=== PATIENT | male | born 1960 | race Caucasian/White ===

== ENCOUNTER 2018-06-20 19:24 | Inpatient (IN) | payer OTHER ==
[2018-06-20] MEDS ORDERED: SODIUM CHLORIDE 0.9% 500 ML 500 ML IV SCH (20:45)
[2018-06-20] MEDS: LIDOCAINE 1% INJ 10MG/ML (20 ML MDV) SQ ONE ×2 (20:54→23:39)
[2018-06-20] MEDS ORDERED: cloNIDine HCL 0.1 MG TAB PO STA (21:20)
[2018-06-20 21:24] LABS: ALT 94 U/L (21-72); AST 68 U/L (17-59); Albumin 4.3 g/dL (3.5-5.0); Alkaline Phosphatase 80 U/L (38-126); Anion Gap 10 mmol/L; Basophils # (A) 0.1 k/uL (0-0.2); Basophils % (A) 1 %; Blood Urea Nitrogen 12 mg/dL (9-20); Calcium 9.8 mg/dL (8.4-10.2); Carbon Dioxide 27 mmol/L (22-30); Chloride 95 mmol/L (98-107); Eosinophils # (A) 0.3 k/uL (0-0.7); Eosinophils % (A) 4 %; HCT 46.5 % (39.0-53.0); HGB 15.3 gm/dL (13.0-17.5); Lymphocytes # (A) 2.6 k/uL (1.0-4.8); Lymphocytes % (A) 38 %; MCH 31.7 pg (25.0-35.0); MCHC 32.8 g/dL (31.0-37.0); MCV 96.7 fL (80.0-100.0); Mean Platelet Volume 8.4; Monocytes # (A) 0.5 k/uL (0-1.0); Monocytes % (A) 7 %; Neutrophils # (A) 3.3 k/uL (1.3-7.7); Neutrophils % (A) 48 %; Platelet Count 166 k/uL (150-450); Potassium 4.5 mmol/L (3.5-5.1); RBC 4.81 m/uL (4.30-5.90); RDW 12.4 % (11.5-15.5); Sodium 132 mmol/L (137-145); Total Bilirubin 0.5 mg/dL (0.2-1.3); Total Protein 7.5 g/dL (6.3-8.2); WBC 6.8 k/uL (3.8-10.6)
[2018-06-20 21:34] LABS: Glucose 513 mg/dL (74-99)
[2018-06-20] MEDS ORDERED: MORPHINE SULFATE 4 MG/ML SYRINGE IVP STA (21:35)
[2018-06-20 22:07] LABS: Glucose,Whole Blood 384 mg/dL (75-99)
[2018-06-20] MEDS ORDERED: ATENOLOL 50 MG TAB PO STA (22:10)
[2018-06-20] MEDS ORDERED: INSULIN REGULAR 100 UNIT/ML VIAL SQ ONE (22:10)
[2018-06-20] MEDS ORDERED: SODIUM CHLORIDE 0.9% 1,000 ML IV STA (22:10)
[2018-06-20 22:16] LABS: Appearance,Urine Clear (Clear); Bilirubin,Urine Negative (Negative); Blood,Urine Negative (Negative); Color,Urine Light Yellow; Glucose,Urine (UA) 4+ (Negative); Ketones,Urine Negative (Negative); Leukocyte Esterase,Urine Negative (Negative); Nitrite,Urine Negative (Negative); PH, Urine 6.5 (5.0-8.0); Protein,Urine Trace (Negative); Urobilinogen,Urine <2.0 mg/dL (<2.0)
--- NOTE | 2018-06-20 22:25 | XR ---
EXAMINATION TYPE: XR ankle complete RT DATE OF EXAM: 06/20/2018 COMPARISON: NONE HISTORY: Pain and redness TECHNIQUE: 3 views FINDINGS: I see no fracture nor dislocation. There is mild soft tissue swelling over the lateral mall eolus. Ankle mortise is anatomic. There are small plantar calcaneal spur. IMPRESSION: Mild soft tissue swelling. No fracture.
[2018-06-20] MEDS ORDERED: ONDANSETRON 4 MG/2 ML VIAL IVP PRN (22:52)
[2018-06-20] MEDS ORDERED: NALOXONE 0.4 MG/ML 1 ML VIAL IV PRN (22:52)
[2018-06-20] MEDS ORDERED: ACETAMINOPHEN TAB 325 MG TAB PO PRN (22:52)
[2018-06-20] MEDS ORDERED: VANCOMYCIN IV PER PHARMACY 1 EACH MISC MISCELLANE PRN (22:54)
--- NOTE | 2018-06-20 23:07 | ED ---
General Adult HPI - General Source: patient, RN notes reviewed Mode of arrival: ambulatory Limitations: no limitations <Desean Meyer - Last Filed: 06/21/18 03:51> <Figueroa Varela - Last Filed: 06/22/18 10:04> - General Chief complaint: Skin/Abscess/Foreign Body Stated complaint: Abscess Time Seen by Provider: 06/20/18 19:40 - History of Present Illness Initial comments: 58-year-old male with a past medical history of CAD, hyperlipidemia, hypertension, IDDM presents to the emergency department for a chief complaint of "bite to right foot." Patient states he woke up this morning and noticed he had a bump on the back of his right ankle. He states it has become increasingly erythematous. He states his ankle has been swollen as well. Patient admits it is quite painful especially to touch. Patient admits to having insulin-dependent diabetes. Patient states it is uncontrolled. He states his pump broke a few weeks ago and he has not been controlling his diabetes well. Patient also admits to neuropathy in the feet. Patient denies fevers or chills at home. Patient has no other complaints at this time including shortness of breath, chest pain, abdominal pain, nausea or vomiting, headache, or visual changes. (Desean Meyer) - Related Data Home Medications Medication Instructions Recorded Confirmed Albuterol Inhaler [Ventolin Hfa 2 puff INHALATION RT-Q6H PRN 02/13/16 06/20/18 Inhaler] Atenolol 100 mg PO BID 02/13/16 06/20/18 Clopidogrel Bisulfate [Clopidogrel] 75 mg PO DAILY 02/13/16 06/20/18 Insulin Aspart [NovoLOG See Protocol SQ AC-TID 02/13/16 06/20/18 (formulary)] Aspirin [Adult Low Dose Aspirin EC] 81 mg PO DAILY 02/16/16 06/20/18 Azithromycin [Zithromax Z-pack] See Taper PO DIRECTED 06/20/18 06/20/18 Cyproheptadine [Cyproheptadine HCl] 4 mg PO TID 06/20/18 06/20/18 Insulin Glargine,Hum.rec.anlog 30 unit SQ HS 06/20/18 06/20/18 [Basaglar Twanikpen U-100] Lisinopril [Zestril] 20 mg PO DAILY 06/20/18 06/20/18 Nitroglycerin 0.3mg Sl Tab 0.3 mg SL Q5M PRN 06/20/18 06/20/18 Pravastatin Sodium [Pravachol] 40 mg PO HS 06/20/18 06/20/18 amLODIPine [Norvasc] 5 mg PO DAILY 06/20/18 06/20/18 Allergies Allergy/AdvReac Type Severity Reaction Status Date / Time Penicillins Allergy Unknown Verified 06/20/18 23:31 Childhood Review of Systems ROS Other: All systems not noted in ROS Statement are negative. <Desean Meyer - Last Filed: 06/21/18 03:51> ROS Other: All systems not noted in ROS Statement are negative. <Figueroa Varela - Last Filed: 06/22/18 10:04> ROS Statement: Those systems with pertinent positive or pertinent negative responses have been documented in the HPI. Past Medical History Past Medical History: Coronary Artery Disease (CAD), Diabetes Mellitus, Hyperlipidemia, Hypertension Additional Past Medical History / Comment(s): chronic back pain History of Any Multi-Drug Resistant Organisms: None Reported Past Surgical History: Cholecystectomy, Heart Catheterization With Stent Past Psychological History: Anxiety, Bipolar, Depression Smoking Status: Current every day smoker Past Alcohol Use History: None Reported Past Drug Use History: Heroin, Marijuana <Desean Meyer P - Last Filed: 06/21/18 03:51> - Past Family History Mother Family Medical History: Cancer Additional Family Medical History / Comment(s): breast Father Family Medical History: Coronary Artery Disease (CAD) <Figueroa Varela - Last Filed: 06/22/18 10:04> General Exam Limitations: no limitations General appearance: alert, in no apparent distress Head exam: Present: atraumatic, normocephalic, normal inspection Eye exam: Present: normal appearance, PERRL, EOMI. Absent: scleral icterus, conjunctival injection, periorbital swelling ENT exam: Present: normal exam, mucous membranes moist Neck exam: Present: normal inspection, full ROM. Absent: tenderness, meningismus, lymphadenopathy Respiratory exam: Present: normal lung sounds bilaterally. Absent: respiratory distress, wheezes, rales, rhonchi, stridor Cardiovascular Exam: Present: regular rate, normal rhythm, normal heart sounds. Absent: systolic murmur, diastolic murmur, rubs, gallop, clicks Extremities exam: Present: full ROM (Full range of motion of the right lower extremity including right ankle and digits), tenderness (Tenderness noted over area of erythema.), normal capillary refill (Capillary refill less than 2 seconds and DP pulse 2+.), joint swelling (Mild nonpitting edema noted in the right ankle. Mild edema seems to be extending superiorly into the distal aspect of the right lower leg as well.), other (Patient has a 5 cm x 5 cm area of warmth and erythema noted on the right lateral posterior ankle. There is a small 1 cm x 1 cm area of fluctuance as well. ). Absent: calf tenderness (No calf tenderness, negative Homans sign.) <Desean Meyer - Last Filed: 06/21/18 03:51> Vital Signs 06/20/18 06/20/18 06/20/18 19:28 21:11 22:24 Temperature 98.2 F Pulse Rate 104 H 89 77 Respiratory 18 19 18 Rate Blood Pressure 214/100 170/106 168/95 O2 Sat by Pulse 99 97 97 Oximetry 06/20/18 23:24 Temperature Pulse Rate 74 Respiratory 18 Rate Blood Pressure 162/99 O2 Sat by Pulse 97 Oximetry Medical Decision Making - Lab Data Result diagrams: 06/20/18 20:50 06/20/18 20:50 <Desean Meyer - Last Filed: 06/21/18 03:51> - Lab Data Result diagrams: 06/20/18 20:50 06/20/18 20:50 <Figueroa Varela - Last Filed: 06/22/18 10:04> - Medical Decision Making 58-year-old male presents for chief complaint of erythema noted to the right posterior ankle. This has been ongoing for one day. On exam there is about 5 cm x 5 cm area of erythema noted with small area of fluctuance about 1 cm x 1 cm. X-ray of the ankle shows no acute process including free air. Mild edema nonpitting noted in the right ankle. Minor edema seems to be extending superiorly into the distal right lower leg. Neurovascular intact in the right lower extremity. Patient is a type I diabetic currently uncontrolled. He does have neuropathy as well. Glucose initially 513. Patient given fluids and insulin. CBC and CMP are otherwise unremarkable. Patient does not meet sepsis criteria. Acetone is negative. Urine does show 4+ glucose, no ketones. Given patient's comorbidities as well as infection he was started on broad-spectrum antibiotics including Levaquin, Flagyl, and vancomycin. Dr. Varela also visualized the ankle. At this time it is recommended patient be admitted for further management with ID consult. (Desean Meyer) I saw this patient in conjunction with the physician special education educational assistant. I performed independent history and physical exam. Agree with case management. (Figueroa Varela) - Lab Data Lab Results 06/20/18 06/20/18 06/20/18 Range/Units 20:50 20:50 20:50 WBC 6.8 (3.8-10.6) k/uL RBC 4.81 (4.30-5.90) m/uL Hgb 15.3 (13.0-17.5) gm/dL Hct 46.5 (39.0-53.0) % MCV 96.7 (80.0-100.0) fL MCH 31.7 (25.0-35.0) pg MCHC 32.8 (31.0-37.0) g/dL RDW 12.4 (11.5-15.5) % Plt Count 166 (150-450) k/uL Neutrophils % 48 % Lymphocytes % 38 % Monocytes % 7 % Eosinophils % 4 % Basophils % 1 % Neutrophils # 3.3 (1.3-7.7) k/uL Lymphocytes # 2.6 (1.0-4.8) k/uL Monocytes # 0.5 (0-1.0) k/uL Eosinophils # 0.3 (0-0.7) k/uL Basophils # 0.1 (0-0.2) k/uL Sodium 132 L (137-145) mmol/L Potassium 4.5 (3.5-5.1) mmol/L Chloride 95 L (98-107) mmol/L Carbon Dioxide 27 (22-30) mmol/L Anion Gap 10 mmol/L BUN 12 (9-20) mg/dL Creatinine 0.68 (0.66-1.25) mg/dL Est GFR (CKD-EPI)AfAm >90 (>60 ml/min/1.73 sqM) Est GFR (CKD-EPI)NonAf >90 (>60 ml/min/1.73 sqM) Glucose 513 H* (74-99) mg/dL POC Glucose (mg/dL) (75-99) mg/dL POC Glu Strategic Planning Director ID Plasma Lactic Acid Adelso 1.7 (0.7-2.0) mmol/L Calcium 9.8 (8.4-10.2) mg/dL Total Bilirubin 0.5 (0.2-1.3) mg/dL AST 68 H (17-59) U/L ALT 94 H (21-72) U/L Alkaline Phosphatase 80 (38-126) U/L Total Protein 7.5 (6.3-8.2) g/dL Albumin 4.3 (3.5-5.0) g/dL Urine Color Urine Appearance (Clear) Urine pH (5.0-8.0) Ur Specific [place] (1.001-1.035) Urine Protein (Negative) Urine Glucose (UA) (Negative) Urine Ketones (Negative) Urine Blood (Negative) Urine Nitrite (Negative) Urine Bilirubin (Negative) Urine Urobilinogen (<2.0) mg/dL Ur Leukocyte Esterase (Negative) Acetone, Qual (Negative) 06/20/18 06/20/18 06/20/18 Range/Units 20:50 22:00 22:04 WBC (3.8-10.6) k/uL RBC (4.30-5.90) m/uL Hgb (13.0-17.5) gm/dL Hct (39.0-53.0) % MCV (80.0-100.0) fL MCH (25.0-35.0) pg MCHC (31.0-37.0) g/dL RDW (11.5-15.5) % Plt Count (150-450) k/uL Neutrophils % % Lymphocytes % % Monocytes % % Eosinophils % % Basophils % % Neutrophils # (1.3-7.7) k/uL Lymphocytes # (1.0-4.8) k/uL Monocytes # (0-1.0) k/uL Eosinophils # (0-0.7) k/uL Basophils # (0-0.2) k/uL Sodium (137-145) mmol/L Potassium (3.5-5.1) mmol/L Chloride (98-107) mmol/L Carbon Dioxide (22-30) mmol/L Anion Gap mmol/L BUN (9-20) mg/dL Creatinine (0.66-1.25) mg/dL Est GFR (CKD-EPI)AfAm (>60 ml/min/1.73 sqM) Est GFR (CKD-EPI)NonAf (>60 ml/min/1.73 sqM) Glucose (74-99) mg/dL POC Glucose (mg/dL) 384 H (75-99) mg/dL POC Glu Strategic Planning Director ID Fidelina Haney Plasma Lactic Acid Adelso (0.7-2.0) mmol/L Calcium (8.4-10.2) mg/dL Total Bilirubin (0.2-1.3) mg/dL AST (17-59) U/L ALT (21-72) U/L Alkaline Phosphatase (38-126) U/L Total Protein (6.3-8.2) g/dL Albumin (3.5-5.0) g/dL Urine Color Light Yellow Urine Appearance Clear (Clear) Urine pH 6.5 (5.0-8.0) Ur Specific [place] 1.020 (1.001-1.035) Urine Protein Trace H (Negative) Urine Glucose (UA) 4+ H (Negative) Urine Ketones Negative (Negative) Urine Blood Negative (Negative) Urine Nitrite Negative (Negative) Urine Bilirubin Negative (Negative) Urine Urobilinogen <2.0 (<2.0) mg/dL Ur Leukocyte Esterase Negative (Negative) Acetone, Qual Negative (Negative) Disposition Time of Disposition: 23:00 <Desean Meyer - Last Filed: 06/21/18 03:51> <Figueroa Varela - Last Filed: 06/22/18 10:04> Clinical Impression: Abscess, Cellulitis Disposition: ADMITTED IP TO THIS HOSP Condition: Good
[2018-06-20] MEDS: SODIUM CHLORIDE 0.9% 1,000 ML IV SCH (23:21)
[2018-06-20] MEDS: LEVOFLOXACIN 750MG-D5W PMX 750 MG in DEXTROSE/WATER 1 150ML.BAG IVPB SCH (23:21)
[2018-06-20 23:43] LABS: Glucose,Whole Blood 325 mg/dL (75-99)
[2018-06-21 00:31] LABS: Glucose,Whole Blood 375 mg/dL (75-99)
[2018-06-21] MEDS: metroNIDAZOLE-NS PMX 500 MG in SALINE 1 100ML.BAG IVPB SCH ×4 (00:54→22:36)
[2018-06-21] MEDS: MORPHINE SULFATE 4 MG/ML SYRINGE IV PRN ×4 (01:20→20:22)
[2018-06-21] MEDS: VANCOMYCIN 1,250 MG in SODIUM CHLORIDE 0.9% 250 ML IVPB SCH ×2 (02:00→12:51)
[2018-06-21] MEDS: INSULIN ASPART 100 UNIT/ML 1 ML 10 ML VIAL SQ SCH ×5 (02:01→23:30)
[2018-06-21] MEDS ORDERED: INSULIN ASPART 100 UNIT/ML 1 ML 10 ML VIAL SQ SCH ×2 (07:30→12:30)
[2018-06-21 07:45] LABS: Glucose,Whole Blood 105 mg/dL (75-99)
[2018-06-21] MEDS: SODIUM CHLORIDE 0.9% 1,000 ML IV SCH ×2 (08:11→22:38)
[2018-06-21] MEDS ORDERED: NITROGLYCERIN SL TABS 0.4 MG TAB SUBLINGUAL PRN (11:56)
[2018-06-21 12:07] LABS: Glucose,Whole Blood 313 mg/dL (75-99)
--- NOTE | 2018-06-21 13:19 | HP ---
HISTORY AND PHYSICAL CHIEF COMPLAINT: Infected ulcer on the back of right heel. HISTORY OF PRESENT ILLNESS: This is the first admission for this 58-year-old white male. He had a blister on the back of the heel which became infected. He is diabetic. REVIEW OF SYSTEMS: He has had no fever, chills, problems with vision or hearing, seizures, lung disease, cough, hemoptysis, heart disease, murmurs, rheumatic fever, abdominal pain, nausea, vomiting, diarrhea, melena, hematochezia, hematochezia, hematuria, frequency, urgency, etc. Diabetes is not under good control. Past medical history, family history personal and social histories reveal that he is ALLERGIC TO ASPIRIN. He has had a cholecystectomy and a T and A. He does smoke. MEDICATIONS: Include albuterol, amlodipine, aspirin, atenolol, azithromycin, Plavix, insulin, lisinopril, Nitrostat, and pravastatin. Blood sugar was 513. PHYSICAL EXAM: Blood pressure 166/99 with a pulse 98, respirations of 30 and he is afebrile. GENERAL: He appeared to be somnolent, in no acute distress. Skin color is normal. Skin is warm, dry. Lymph nodes not enlarged. Head, ears, eyes, nose, mouth, and throat were normal. Neck veins not distended. Thyroid is not enlarged. Chest is clear. Cardiac exam is normal. Abdomen is soft, nontender. He has an infected ulcer on the back of the right heel of the Achilles tendon. Pulses are adequate. IMPRESSION: 1. Infected ulcer blister on the back to right heel. 2. Uncontrolled insulin-dependent diabetes mellitus. PLAN: 1. Bed rest. 2. IV fluids. 3. IV antibiotics. MMODL / IJN: [id number] /
--- NOTE | 2018-06-21 13:24 | PN ---
PROGRESS NOTE CHIEF COMPLAINT: Infected ulcer and cellulitis of the back of the right heel. HISTORY OF PRESENT ILLNESS: This gentleman is having quite a bit of discomfort. Antibiotics have been started. PHYSICAL EXAMINATION: The area looks just about the same. The foot is spared. Calf is soft. IMPRESSION: Infected ulcer or blister on the back of the right heel. PLAN: Continue with IV fluids and antibiotics and elevation. MMODL / IJN: [id number] /
[2018-06-21] MEDS ORDERED: LIDOCAINE 1% INJ 10MG/ML (20 ML MDV) SQ ONE (15:25)
--- NOTE | 2018-06-21 15:28 | P.GSCN ---
History of Present Illness Consult date: 06/21/18 History of present illness: 58-year-old male presented to the emergency department with complaints of swelling and pain around his right ankle. He states that he feels he was bit by a spider at that spot and over a few hours the area began to swell. He complains of pain at the site. Denies any drainage at the site. Denies any fevers, chills, chest pain or shortness of breath. He denies ever having an issue like this previously. His glucose levels have been elevated. He has been receiving IV antibiotics since his admission. Review of Systems All systems: negative Past Medical History Past Medical History: Coronary Artery Disease (CAD), Diabetes Mellitus, Hyperlipidemia, Hypertension Additional Past Medical History / Comment(s): chronic back pain History of Any Multi-Drug Resistant Organisms: None Reported Past Surgical History: Cholecystectomy, Heart Catheterization With Stent Date of Last Stent Placement:: 2011 Past Psychological History: Anxiety, Bipolar, Depression Smoking Status: Current every day smoker Past Alcohol Use History: None Reported Past Drug Use History: Heroin, Marijuana - Past Family History Mother Family Medical History: Cancer Additional Family Medical History / Comment(s): breast Father Family Medical History: Coronary Artery Disease (CAD) Medications and Allergies Home Medications Medication Instructions Recorded Confirmed Type Albuterol Inhaler [Ventolin Hfa 2 puff INHALATION RT-Q6H PRN 02/13/16 06/20/18 History Inhaler] Atenolol 100 mg PO BID 02/13/16 06/20/18 History Clopidogrel Bisulfate [Clopidogrel] 75 mg PO DAILY 02/13/16 06/20/18 History Insulin Aspart [NovoLOG See Protocol SQ AC-TID 02/13/16 06/20/18 History (formulary)] Aspirin [Adult Low Dose Aspirin EC] 81 mg PO DAILY 02/16/16 06/20/18 History Azithromycin [Zithromax Z-pack] See Taper PO DIRECTED 06/20/18 06/20/18 History Cyproheptadine [Cyproheptadine HCl] 4 mg PO TID 06/20/18 06/20/18 History Insulin Glargine,Hum.rec.anlog 30 unit SQ HS 06/20/18 06/20/18 History [Basaglar Kwikpen U-100] Lisinopril [Zestril] 20 mg PO DAILY 06/20/18 06/20/18 History Nitroglycerin 0.3mg Sl Tab 0.3 mg SL Q5M PRN 06/20/18 06/20/18 History Pravastatin Sodium [Pravachol] 40 mg PO HS 06/20/18 06/20/18 History amLODIPine [Norvasc] 5 mg PO DAILY 06/20/18 06/20/18 History Allergies Allergy/AdvReac Type Severity Reaction Status Date / Time Penicillins Allergy Unknown Verified 06/20/18 23:31 Childhood Surgical - Exam Osteopathic Statement: *. No significant issues noted on an osteopathic structural exam other than those noted in the History and Physical/Consult. Vital Signs Temp Pulse Resp BP Pulse Ox 98.2 F 104 H 18 214/100 99 06/20/18 19:28 06/20/18 19:28 06/20/18 19:28 06/20/18 19:28 06/20/18 19:28 - General no distress - Eyes normal ocular movement - ENT no hearing loss - Neck trachea midline - Respiratory normal respiratory effort - Abdomen Soft, nontender, nondistended, no rebound, no guarding - Integumentary Abscess noted on the right lower extremity just posterior to the lateral malleolus. Palpable fluctuance. Surrounding induration. Warm to touch. - Psychiatric oriented to time, oriented to person, oriented to place Results - Labs 06/20/18 20:50 06/20/18 20:50 Abnormal Lab Results - Last 24 Hours (Table) 06/20/18 06/20/18 06/20/18 Range/Units 20:50 22:00 22:04 Sodium 132 L (137-145) mmol/L Chloride 95 L (98-107) mmol/L Glucose 513 H* (74-99) mg/dL POC Glucose (mg/dL) 384 H (75-99) mg/dL AST 68 H (17-59) U/L ALT 94 H (21-72) U/L Urine Protein Trace H (Negative) Urine Glucose (UA) 4+ H (Negative) 06/20/18 06/21/18 06/21/18 Range/Units 23:32 00:30 07:11 Sodium (137-145) mmol/L Chloride (98-107) mmol/L Glucose (74-99) mg/dL POC Glucose (mg/dL) 325 H 375 H 105 H (75-99) mg/dL AST (17-59) U/L ALT (21-72) U/L Urine Protein (Negative) Urine Glucose (UA) (Negative) 06/21/18 Range/Units 12:04 Sodium (137-145) mmol/L Chloride (98-107) mmol/L Glucose (74-99) mg/dL POC Glucose (mg/dL) 313 H (75-99) mg/dL AST (17-59) U/L ALT (21-72) U/L Urine Protein (Negative) Urine Glucose (UA) (Negative) Diabetes panel 06/20/18 Range/Units 20:50 Sodium 132 L (137-145) mmol/L Potassium 4.5 (3.5-5.1) mmol/L Chloride 95 L (98-107) mmol/L Carbon Dioxide 27 (22-30) mmol/L BUN 12 (9-20) mg/dL Creatinine 0.68 (0.66-1.25) mg/dL Glucose 513 H* (74-99) mg/dL Calcium 9.8 (8.4-10.2) mg/dL AST 68 H (17-59) U/L ALT 94 H (21-72) U/L Alkaline Phosphatase 80 (38-126) U/L Total Protein 7.5 (6.3-8.2) g/dL Albumin 4.3 (3.5-5.0) g/dL Calcium panel 06/20/18 Range/Units 20:50 Calcium 9.8 (8.4-10.2) mg/dL Albumin 4.3 (3.5-5.0) g/dL Pituitary panel 06/20/18 Range/Units 20:50 Sodium 132 L (137-145) mmol/L Potassium 4.5 (3.5-5.1) mmol/L Chloride 95 L (98-107) mmol/L Carbon Dioxide 27 (22-30) mmol/L BUN 12 (9-20) mg/dL Creatinine 0.68 (0.66-1.25) mg/dL Glucose 513 H* (74-99) mg/dL Calcium 9.8 (8.4-10.2) mg/dL Adrenal panel 06/20/18 Range/Units 20:50 Sodium 132 L (137-145) mmol/L Potassium 4.5 (3.5-5.1) mmol/L Chloride 95 L (98-107) mmol/L Carbon Dioxide 27 (22-30) mmol/L BUN 12 (9-20) mg/dL Creatinine 0.68 (0.66-1.25) mg/dL Glucose 513 H* (74-99) mg/dL Calcium 9.8 (8.4-10.2) mg/dL Total Bilirubin 0.5 (0.2-1.3) mg/dL AST 68 H (17-59) U/L ALT 94 H (21-72) U/L Alkaline Phosphatase 80 (38-126) U/L Total Protein 7.5 (6.3-8.2) g/dL Albumin 4.3 (3.5-5.0) g/dL Assessment and Plan (1) Abscess Narrative/Plan: 58-year-old male with right lower extremity abscess - Plan for incision and drainage at bedside - Will obtain cultures Thank you for this consultation, I look forward in providing in the patient's care. Current Visit: Yes Status: Acute Code(s): L02.91 - CUTANEOUS ABSCESS, UNSPECIFIED SNOMED Code(s): 514964624
--- NOTE | 2018-06-21 15:49 | P.OP ---
Date of Procedure: 06/21/18 Preoperative Diagnosis: Right lower extremity abscess Postoperative Diagnosis: Right lower extremity abscess Procedure(s) Performed: Incision and drainage of right lower extremity abscess Anesthesia: local Surgeon: Roman Adam Pathology: other (Cultures of abscess) Condition: stable Disposition: floor Indications for Procedure: 58-year-old male with an abscess of the right lower extremity just posterior to the lateral malleolus. Area is fluctuant with some surrounding induration. He is on antibiotics through the IV. I did explain the procedure to the patient including risks, benefits and alternatives to the procedure. The patient did provide consent prior to the procedure. Operative Findings: 5 mL of purulent material drained Description of Procedure: The right lower Gale he was prepped and draped in regular sterile fashion. Local anesthetic was administered. A cruciate incision was made over the area of fluctuance. Immediate drainage of purulent material was noted. Approximately 5 mL was drained. Cultures of the abscess cavity were taken. Hemostat was used to break any surrounding loculations within the cavity. Irrigation was then used within the cavity. A small packing was placed. Sterile dressing was applied. The patient did tolerate the procedure well.
[2018-06-21 17:32] LABS: Glucose,Whole Blood 239 mg/dL (75-99)
[2018-06-21] MEDS: PRAVASTATIN SODIUM 40 MG TAB PO SCH (20:22)
[2018-06-21] MEDS: ATENOLOL 50 MG TAB PO SCH (20:22)
[2018-06-21 21:12] LABS: Glucose,Whole Blood 211 mg/dL (75-99)
[2018-06-21] MEDS: INSULIN DETEMIR 100 UNIT/ML 10 ML VIAL SQ SCH (22:34)
[2018-06-21] MEDS: LEVOFLOXACIN 750MG-D5W PMX 750 MG in DEXTROSE/WATER 1 150ML.BAG IVPB SCH (22:39)
[2018-06-22] MEDS: VANCOMYCIN 1,250 MG in SODIUM CHLORIDE 0.9% 250 ML IVPB SCH ×2 (01:45→12:48)
[2018-06-22] MEDS: MORPHINE SULFATE 4 MG/ML SYRINGE IV PRN ×4 (02:06→21:04)
--- NOTE | 2018-06-22 06:11 | CONS ---
CONSULTATION DATE OF SERVICE: 06/21/2018. REASON FOR CONSULTATION: Right ankle abscess, cellulitis. HISTORY OF PRESENT ILLNESS: The patient is a 58-year-old male presenting to the ER at [facility] with chief complaints of pain and swelling behind the ankle area. The patient noticed the bump this morning when he woke up that is yesterday morning when he presented to the hospital. The patient did not recall any history of any trauma however any boil there. The area is becoming more swollen and red and painful. Pain described to be throbbing 4 to 5 out of 10 and no radiation and is worse with any manipulation or twisting of his area. Currently with no drainage. He did have some chills but denies high-grade fever. The patient also had history of insulin-dependent diabetes mellitus. Apparently the patient probably and his sugar has been running high. With these symptoms, the patient has been evaluated by the ER physician. On arrival to the ER, the patient has been afebrile. White count normal at 6.8. Urine was negative. The patient did have x-rays of the ankle area that was negative for any fracture. He was started on Levaquin. Infectious Disease was consulted for further recommendation regarding antibiotic therapy because of his PENICILLIN allergy. REVIEW OF SYSTEMS: CONSTITUTIONAL: Positive for weakness and some chills. EYES: No complaint. ENT: No complaint. RESPIRATORY: No complaint. CARDIOVASCULAR: No complaint. GENITOURINARY: No complaint. GASTROINTESTINAL: No complaint. MUSCULOSKELETAL: As per HPI. INTEGUMENTARY: As per HPI. PSYCHOLOGICAL: No complaint. ENDOCRINE: No complaint. NEUROLOGICAL: No complaint. PAST MEDICAL HISTORY: Hypertension, hyperlipidemia, insulin-dependent diabetes mellitus, coronary artery disease, chronic back pain, anxiety, bipolar depression. PAST SURGICAL HISTORY: Cholecystectomy, PTCA with stent. SOCIAL HISTORY: Patient currently every day smoker. Did have history heroin and marijuana use. Denies any drinking. FAMILY HISTORY: No pertinent findings noticed. ALLERGIES: Allergies to PENICILLIN with history of rash MEDICATIONS: Medications include the patient is currently on Tylenol, Norvasc, aspirin, Tenormin, Plavix, NovoLog, Levemir, Levaquin, Flagyl, Nitrostat, Pravachol. PHYSICAL EXAMINATION: On examination, blood pressure 134/56, pulse of 60 temperature 97.8. He is 96% on room air. General description is a middle-aged male lying in bed in no distress. No tachypnea or accessory muscle of respiration use. HEENT examination shows no pallor or scleral icterus. Oral mucous membrane is dry. No pharyngeal erythema or thrush. NECK: Trachea central, no thyromegaly. LUNGS: Unlabored breathing, clear to auscultation anteriorly. HEART: S1, S2. Regular rate and rhythm. No added sounds. ABDOMEN: Soft, no tenderness, no guarding or rigidity. No organomegaly. EXTREMITIES: No edema of feet. Examination of the right posterior ankle area did have area of swelling, fluctuation, minimal redness but no drainage. NEUROLOGICAL: Patient is awake, alert, oriented x3. Mood and affect normal. LABS: Hemoglobin 15.3, white count 6.8. BUN of 12, creatinine 0.68. UA has been negative. Serum acetone was negative. The x-rays of right ankle negative for any fracture. DIAGNOSTIC IMPRESSION AND PLAN: 1. Patient with right posterior ankle area abscess with secondary cellulitis likely from a gram-positive skin rashmi however in this patient with underlying uncontrolled diabetes mellitus gram-negative infection not entirely excluded. 2. Patient known to have PENICILLIN ALLERGY that will limit the number of antibiotics that could be safely used. PLAN: 1. Recommend obtaining a general surgery evaluation for drainage of this abscess. The fluid should be sent for culture, both aerobic and anaerobic. 2. We will start the patient on vancomycin pharmacy to dose, trough of 15, while watching the kidney function and vanco trough closely. 3. We will follow up on clinical condition and culture to further adjust medication if needed. Thank you for this consultation. Will follow this patient along with you. MMODL / IJN: [id number] /
[2018-06-22 08:01] LABS: Glucose,Whole Blood 91 mg/dL (75-99)
--- NOTE | 2018-06-22 08:46 | P.PN ---
Subjective Progress Note Date: 06/22/18 Patient seen and examined at bedside. States pain has been improving at the site of incision and drainage. Denies fevers, chills, chest pain or shortness of breath. No additional complaints at this time. Objective - Vital Signs Vital signs: Vital Signs Temp 97.9 F 06/22/18 06:44 Pulse 54 L 06/22/18 06:44 Resp 16 06/22/18 06:44 BP 148/79 06/22/18 06:44 Pulse Ox 98 06/22/18 06:44 Intake & Output 06/21/18 06/22/18 06/22/18 18:59 06:59 18:59 Intake Total 240 240 Balance 240 240 Intake: Oral 240 240 Other: Voiding Method Toilet Urinal # Voids 3 3 - Constitutional General appearance: Present: cooperative, no acute distress - Respiratory Details: No difficulty with respiration - Gastrointestinal Gastrointestinal Comment(s): Soft, nontender, nondistended, no rebound, no guarding - Integumentary Integumentary Comment(s): Incision and drainage site with continued active drainage and bleeding, some surrounding cellulitis still noted - Labs CBC & Chem 7: 06/20/18 20:50 06/20/18 20:50 Labs: Abnormal Lab Results - Last 24 Hours (Table) 06/21/18 06/21/18 06/21/18 Range/Units 12:04 17:30 21:08 POC Glucose (mg/dL) 313 H 239 H 211 H (75-99) mg/dL Microbiology - Last 24 Hours (Table) 06/21/18 15:35 Gram Stain - Preliminary Ankle - Right Wound Culture - Preliminary 06/21/18 15:35 Anaerobic Culture - Preliminary Ankle - Right 06/20/18 20:50 Blood Culture - Preliminary Blood No Growth after 24 hours Assessment and Plan (1) Abscess Narrative/Plan: 58-year-old male with right lower extremity abscess, postoperative day #1 from bedside incision and drainage - Continue local wound care, I did discuss dressing changes with nursing - Continue pain control - Infectious disease recommendations for antibiotics appreciated Current Visit: Yes Status: Acute Code(s): L02.91 - CUTANEOUS ABSCESS, UNSPECIFIED SNOMED Code(s): 403501564
[2018-06-22] MEDS: amLODIPine 5 MG TAB PO SCH (08:49)
[2018-06-22] MEDS: metroNIDAZOLE-NS PMX 500 MG in SALINE 1 100ML.BAG IVPB SCH ×2 (08:49→15:03)
[2018-06-22] MEDS: ASPIRIN 81 MG PO SCH (08:49)
[2018-06-22] MEDS: ATENOLOL 50 MG TAB PO SCH ×2 (08:49→21:03)
[2018-06-22] MEDS: CLOPIDOGREL 75 MG TAB PO SCH (08:49)
[2018-06-22] MEDS: SODIUM CHLORIDE 0.9% 1,000 ML IV SCH ×2 (08:50→15:03)
[2018-06-22] MEDS: LISINOPRIL 20 MG TAB PO SCH (08:50)
[2018-06-22] MEDS: INSULIN ASPART 100 UNIT/ML 1 ML 10 ML VIAL SQ SCH ×4 (08:50→21:03)
[2018-06-22 11:22] LABS: Hemoglobin A1C 13.7 % (4.0-6.0)
[2018-06-22 11:51] LABS: Glucose,Whole Blood 128 mg/dL (75-99)
[2018-06-22 11:53] LABS: Anion Gap 4 mmol/L; Blood Urea Nitrogen 14 mg/dL (9-20); Calcium 8.4 mg/dL (8.4-10.2); Carbon Dioxide 29 mmol/L (22-30); Chloride 102 mmol/L (98-107); Glucose 145 mg/dL (74-99); Potassium 4.2 mmol/L (3.5-5.1); Sodium 135 mmol/L (137-145)
[2018-06-22] MEDS: HYDROcodone/APAP 5-325MG 1 EACH TAB PO PRN ×2 (12:00→17:39)
[2018-06-22 17:22] LABS: Glucose,Whole Blood 273 mg/dL (75-99)
--- NOTE | 2018-06-22 18:20 | PN ---
PROGRESS NOTE CHIEF COMPLAINT: Infected blister and cellulitis of the right lower leg. HISTORY OF PRESENT ILLNESS: This gentleman is doing well and the lesion was opened and drained yesterday. He is having some discomfort, but otherwise is doing well. He is afebrile. There has been no growth on blood culture. His blood sugars were elevated, but they are improving. PHYSICAL EXAM: Chest is clear. Cardiac exam is normal. Abdomen is soft, nontender. IMPRESSION: Cellulitis and ulcer of the right posterior heel and diabetic. PLAN: Continue with IV fluids, antibiotics and management of his diabetes. MMODL / IJN: [id number] /
[2018-06-22 20:37] LABS: Glucose,Whole Blood 222 mg/dL (75-99)
[2018-06-22] MEDS: PRAVASTATIN SODIUM 40 MG TAB PO SCH (21:03)
[2018-06-22] MEDS: INSULIN DETEMIR 100 UNIT/ML 10 ML VIAL SQ SCH (21:03)
[2018-06-22] MEDS: LEVOFLOXACIN 750MG-D5W PMX 750 MG in DEXTROSE/WATER 1 150ML.BAG IVPB SCH (23:06)
[2018-06-23] MEDS: metroNIDAZOLE-NS PMX 500 MG in SALINE 1 100ML.BAG IVPB SCH ×2 (00:21→08:06)
[2018-06-23] MEDS: HYDROcodone/APAP 5-325MG 1 EACH TAB PO PRN ×4 (00:21→20:37)
[2018-06-23] MEDS: SODIUM CHLORIDE 0.9% 1,000 ML IV SCH ×3 (01:08→20:38)
[2018-06-23] MEDS: VANCOMYCIN 1,250 MG in SODIUM CHLORIDE 0.9% 250 ML IVPB SCH ×2 (01:12→12:35)
[2018-06-23] MEDS: MORPHINE SULFATE 4 MG/ML SYRINGE IV PRN ×4 (03:33→22:34)
--- NOTE | 2018-06-23 07:05 | PN ---
PROGRESS NOTE DATE OF SERVICE: 06/22/2018. REASON FOR FOLLOW UP: Right blister heel/leg abscess and cellulitis. INTERVAL HISTORY: The patient is currently afebrile. He is breathing comfortably. Pain to the right posterior leg/ankle area slightly decreased in intensity. Denies having any chest pain. No shortness of breath. No cough. No abdominal pain. No diarrhea. PHYSICAL EXAMINATION: Blood pressure 145/81 with a pulse of 74, temperature 99. He is 97% on room air. General description is a middle-aged male lying in bed in no distress. Respiratory system: Unlabored breathing. Clear to auscultation anteriorly. Heart S1, S2. Regular rate and rhythm. Abdomen soft. No tenderness. Right currently dressed up. No obvious drainage on the dressing. LABS: BUN of 14 and 0.70. Cultures are currently pending. DIAGNOSTIC IMPRESSION AND PLAN: Patient with right heel abscess and cellulitis status post drainage of the abscess while waiting for the culture to finalize, keep the patient on vancomycin pharmacy to dose while watching his kidney function closely. Continue supportive care. MMODL / IJN: [id number] /
[2018-06-23 07:29] LABS: Glucose,Whole Blood 87 mg/dL (75-99)
[2018-06-23] MEDS: INSULIN ASPART 100 UNIT/ML 1 ML 10 ML VIAL SQ SCH ×4 (07:57→22:33)
[2018-06-23] MEDS: ATENOLOL 50 MG TAB PO SCH ×2 (08:06→20:38)
[2018-06-23] MEDS: amLODIPine 5 MG TAB PO SCH (08:06)
[2018-06-23] MEDS: CLOPIDOGREL 75 MG TAB PO SCH (08:06)
[2018-06-23] MEDS: ASPIRIN 81 MG PO SCH (08:07)
[2018-06-23] MEDS: LISINOPRIL 20 MG TAB PO SCH (08:07)
[2018-06-23 11:55] LABS: Anion Gap 6 mmol/L; Blood Urea Nitrogen 13 mg/dL (9-20); Carbon Dioxide 29 mmol/L (22-30); Chloride 101 mmol/L (98-107); Glucose 252 mg/dL (74-99); Sodium 136 mmol/L (137-145)
[2018-06-23] MEDS ORDERED: VANCOMYCIN TROUGH DUE 1 EACH MISC MISCELLANE ONE (12:00)
[2018-06-23 12:05] LABS: Glucose,Whole Blood 280 mg/dL (75-99)
[2018-06-23 14:54] VITALS: BMI 22.1
[2018-06-23] MEDS: metroNIDAZOLE 500 MG TAB PO SCH (16:00)
[2018-06-23 17:25] LABS: Glucose,Whole Blood 234 mg/dL (75-99)
[2018-06-23] MEDS: PRAVASTATIN SODIUM 40 MG TAB PO SCH (20:36)
[2018-06-23 21:40] LABS: Glucose,Whole Blood 207 mg/dL (75-99)
[2018-06-23] MEDS: INSULIN DETEMIR 100 UNIT/ML 10 ML VIAL SQ SCH (22:33)
[2018-06-23] MEDS: VANCOMYCIN 1,500 MG in SODIUM CHLORIDE 0.9% 250 ML IVPB SCH (22:43)
[2018-06-24] MEDS: LEVOFLOXACIN 750MG-D5W PMX 750 MG in DEXTROSE/WATER 1 150ML.BAG IVPB SCH (01:05)
[2018-06-24] MEDS: metroNIDAZOLE 500 MG TAB PO SCH ×2 (01:05→08:15)
[2018-06-24 03:53] VITALS: PULSE 60
[2018-06-24] MEDS: MORPHINE SULFATE 4 MG/ML SYRINGE IV PRN ×2 (04:30→10:43)
[2018-06-24] MEDS: SODIUM CHLORIDE 0.9% 1,000 ML IV SCH (06:42)
[2018-06-24 07:21] LABS: Glucose,Whole Blood 83 mg/dL (75-99)
--- NOTE | 2018-06-24 07:40 | PN ---
PROGRESS NOTE DATE OF SERVICE: 06/23/2018 REASON FOR FOLLOWUP: Right posterior ankle abscess and cellulitis. INTERVAL HISTORY: The patient is currently afebrile. He is breathing comfortably. Pain to the right posterior ankle is currently controlled with pain medication. Denies having any chest pain, shortness of breath or cough. No abdominal pain or any diarrhea. PHYSICAL EXAMINATION: Blood pressure 165/89 with a pulse of 71, temperature of 98.5. He is 98% on room air. General description is a middle-aged male, lying in bed in no distress. RESPIRATORY SYSTEM: Unlabored breathing, clear to auscultation anteriorly. HEART: S1, S2. Regular rate and rhythm. ABDOMEN: Soft, no tenderness. Right posterior ankle wound is currently dressed, no obvious drainage on the dressing. LABS: BUN of 13, creatinine 0.60. Wound cultures are pending. DIAGNOSTIC IMPRESSION AND PLAN: Patient with right posterior ankle abscess, status post drainage. Culture did show gram-positive cocci. Culture has not been finalized yet. He will continue with vanco while waiting for the culture to finalize to determine discharge antibiotics. Continue supportive care. MMODL / IJN: [id number] /
[2018-06-24 07:51] VITALS: BP 153/90; RESP 18; TEMP 97.1
[2018-06-24] MEDS: amLODIPine 5 MG TAB PO SCH (08:15)
[2018-06-24] MEDS: ASPIRIN 81 MG PO SCH (08:15)
[2018-06-24] MEDS: ATENOLOL 50 MG TAB PO SCH (08:15)
[2018-06-24] MEDS: INSULIN ASPART 100 UNIT/ML 1 ML 10 ML VIAL SQ SCH ×2 (08:15→12:08)
[2018-06-24] MEDS: CLOPIDOGREL 75 MG TAB PO SCH (08:15)
[2018-06-24] MEDS: LISINOPRIL 20 MG TAB PO SCH (08:15)
[2018-06-24] MEDS: HYDROcodone/APAP 5-325MG 1 EACH TAB PO PRN (08:17)
[2018-06-24] MEDS: VANCOMYCIN 1,500 MG in SODIUM CHLORIDE 0.9% 250 ML IVPB SCH (10:42)
[2018-06-24 11:03] LABS: Anion Gap 8 mmol/L; Blood Urea Nitrogen 14 mg/dL (9-20); Calcium 9.4 mg/dL (8.4-10.2); Carbon Dioxide 27 mmol/L (22-30); Chloride 101 mmol/L (98-107); Glucose 122 mg/dL (74-99); Potassium 4.5 mmol/L (3.5-5.1); Sodium 136 mmol/L (137-145)
[2018-06-24] MEDS ORDERED: CEPHALEXIN 500 MG CAP PO STA (12:06)
[2018-06-24 12:09] LABS: Glucose,Whole Blood 99 mg/dL (75-99)
--- NOTE | 2018-06-24 15:00 | PN ---
PROGRESS NOTE DATE OF SERVICE: 06/24/2018 REASON FOR FOLLOWUP: Right posterior leg abscess and cellulitis. INTERVAL HISTORY: The patient is currently afebrile. He is breathing comfortably. Denies having any chest pain or shortness of breath. No cough, no abdominal pain or pain to the right posterior leg area. PHYSICAL EXAMINATION: Blood pressure 153/90 with a pulse of 62, temperature 97.1. He is 97% on room air. General description is a middle-aged male lying in bed, in no distress. RESPIRATORY SYSTEM: Unlabored breathing, clear to auscultation anteriorly. HEART: S1, S2. Regular rate and rhythm. ABDOMEN: Soft, no tenderness. Right posterior leg overall swelling AND redness has decreased, no drainage. LABS: Creatinine 0.77. Wound culture finalized with Staph epi, oxacillin sensitive. DIAGNOSTIC IMPRESSION AND PLAN: Patient with right posterior ankle/leg area abscess status post surgical drainage, culture with oxacillin-sensitive Staph epi. The patient did have history of PENICILLIN allergy as a child. No history of anaphylaxis. He was given a dose of oral Keflex. He has tolerated. Subsequently, prescription for Keflex 500 mg t.i.d. for 7 days was sent and the patient will follow up in the office in 1 week. All questions were answered. MMODL / IJN: [id number] /
--- NOTE | 2018-06-24 15:30 | DS ---
DISCHARGE SUMMARY CHIEF COMPLAINT: Infected blister, abscess and cellulitis of the posterior right heel. HISTORY OF PRESENT ILLNESS AND PHYSICAL EXAM: Details of this man's history and physical can be found in the initial workup. LABORATORY STUDIES: While he was in a hospital he had laboratory studies, details of which can be found in the laboratory section of his chart. COURSE IN HOSPITAL: After admission, he was placed on bedrest, started on intravenous fluids and IV antibiotics. Efforts were made to bring his blood sugars under better control. He is doing well and he was responding well enough that it was thought that he could go home on oral antibiotics and he will be seen in the office in several days. The biggest challenge will be getting his blood sugars under control because he is not compliant and has not been checking his sugars at all. FINAL DIAGNOSES: 1. Cellulitis and abscess of the right posterior heel. 2. Uncontrolled diabetes mellitus. 3. History of coronary artery disease. OPERATIONS: None. CONSULTATION: Surgery and Infectious Disease. He is improved. MMODL / IJN: [id number] /
[2018-06-24] MEDS ORDERED: CLINDAMYCIN 150 MG CAP PO SCH (16:00)
--- NOTE | 2018-06-24 18:10 | PN ---
PROGRESS NOTE DATE OF SERVICE: 06/23/2018. CHIEF COMPLAINT: Cellulitis and abscess the back of the right heel. HISTORY OF PRESENT ILLNESS: This gentleman has now developed nausea. He has had no cramps, diarrhea, or vomiting. PHYSICAL EXAM: Abdomen is soft and nontender. Chest is clear. Cardiac exam is normal. The back of the right heel is improving. IMPRESSION: 1. Cellulitis and abscess back of right heel. 2. Nausea. 3. Diabetes. 4. Coronary artery disease. PLAN: If he has no further trouble, he will probably go home tomorrow. MMODL / IJN: [id number] /
== END 2018-06-24 14:33 | disposition home or self-care (01) | DRG 603 ==
LOC: EC 19:24 → 4MS4W 23:00 → INTOOBSV 23:00 → OBSVTOIN 06-22 15:27
PROVIDERS: ADMIT Family Medicine; ATTEND Family Medicine
PROC: 0H9MXZX Drainage of Right Foot Skin, External Approach, Diagnostic (ICD-10-PCS; principal; 2018-06-21)
DX: L03.115 Cellulitis of right lower limb (principal); L02.415 Cutaneous abscess of right lower limb; E10.65 Type 1 diabetes mellitus with hyperglycemia; E78.5 Hyperlipidemia, unspecified; F17.210 Nicotine dependence, cigarettes, uncomplicated; F31.9 Bipolar disorder, unspecified; E10.42 Type 1 diabetes mellitus with diabetic polyneuropathy; Z79.4 Long term (current) use of insulin; I10 Essential (primary) hypertension; I25.10 Atherosclerotic heart disease of native coronary artery without angina pectoris; T63.301A Toxic effect of unspecified spider venom, accidental (unintentional), initial encounter; Z79.02 Long term (current) use of antithrombotics/antiplatelets; Z79.82 Long term (current) use of aspirin; Z79.899 Other long term (current) drug therapy; Z82.49 Family history of ischemic heart disease and other diseases of the circulatory system; Z88.0 Allergy status to penicillin; Z95.5 Presence of coronary angioplasty implant and graft; M54.9 Dorsalgia, unspecified; G89.29 Other chronic pain; Z90.49 Acquired absence of other specified parts of digestive tract; R11.0 Nausea; B95.7 Other staphylococcus as the cause of diseases classified elsewhere; Z91.19 Patient's noncompliance with other medical treatment and regimen
CPT/HCPCS: 36415; 80048; 80053; 80202; 81003; 82009; 83036; 83605; 85025; 87040; 87070; 87075; 87077; 87186; 87205; 96361; 96365; 96375; 99284

== ENCOUNTER 2018-09-30 01:17 | Observation (INO) | payer OTHER ==
[2018-09-30 02:03] LABS: Basophils # (A) 0.1 k/uL (0-0.2); Basophils % (A) 1 %; Eosinophils # (A) 0.1 k/uL (0-0.7); Eosinophils % (A) 2 %; HCT 40.6 % (39.0-53.0); HGB 13.3 gm/dL (13.0-17.5); Lymphocytes # (A) 2.3 k/uL (1.0-4.8); Lymphocytes % (A) 31 %; MCH 30.7 pg (25.0-35.0); MCHC 32.8 g/dL (31.0-37.0); MCV 93.6 fL (80.0-100.0); Mean Platelet Volume 8.3; Monocytes # (A) 0.5 k/uL (0-1.0); Monocytes % (A) 7 %; Neutrophils # (A) 4.2 k/uL (1.3-7.7); Neutrophils % (A) 58 %; Platelet Count 148 k/uL (150-450); RBC 4.34 m/uL (4.30-5.90); RDW 13.1 % (11.5-15.5); WBC 7.3 k/uL (3.8-10.6)
[2018-09-30 02:11] LABS: Partial Thromboplastin Time 27.4 sec (22.0-30.0); Prothrombin Time 10.9 sec (9.0-12.0)
[2018-09-30 02:15] LABS: ALT 60 U/L (21-72); AST 46 U/L (17-59); Albumin 3.5 g/dL (3.5-5.0); Alkaline Phosphatase 56 U/L (38-126); Amylase <30 U/L (30-110); Anion Gap 12 mmol/L; Blood Urea Nitrogen 18 mg/dL (9-20); Calcium 9.1 mg/dL (8.4-10.2); Carbon Dioxide 19 mmol/L (22-30); Chloride 105 mmol/L (98-107); Glucose 181 mg/dL (74-99); Lipase 108 U/L (23-300); Magnesium 1.8 mg/dL (1.6-2.3); Potassium 3.8 mmol/L (3.5-5.1); Sodium 136 mmol/L (137-145); Total Bilirubin 0.6 mg/dL (0.2-1.3); Total Protein 6.1 g/dL (6.3-8.2)
--- NOTE | 2018-09-30 02:37 | XR ---
EXAM: XR Chest, 1 View CLINICAL HISTORY: ITS.REASON XR Reason: chest pain TECHNIQUE: Frontal view of the chest. COMPARISON: CXR 06/06/17 FINDINGS: Lungs: Bibasilar atelectasis. No consolidation. Pleural space: Unremarkable. No pneumothorax. Heart: Unremarkable. No cardiomegaly. Mediastinum: Unremarkable. Bones/joints: Unremarkable. IMPRESSION: Bibasilar atelectasis.
[2018-09-30] MEDS ORDERED: NITROGLYCERIN SL TABS 0.4 MG TAB SUBLINGUAL PRN (04:04)
[2018-09-30] MEDS ORDERED: LORazepam 2 MG/ML INJ IV PRN ×2 (04:14)
[2018-09-30] MEDS ORDERED: THIAMINE 100 MG/ML 2 ML VIAL IM STA (04:14)
[2018-09-30] MEDS ORDERED: LORazepam 2 MG/ML INJ IV STA (04:20)
[2018-09-30] MEDS ORDERED: HYDROcodone/APAP 5-325MG 1 EACH TAB PO STA (04:20)
--- NOTE | 2018-09-30 04:20 | ED ---
Chest Pain HPI - General Chief Complaint: Chest Pain Stated Complaint: Chest pain Time Seen by Provider: 09/30/18 01:30 Source: patient, EMS Mode of arrival: EMS Limitations: no limitations - History of Present Illness Initial Comments: This patient is 58-year-old man who presents to be evaluated for chest pain. He indicates substernal area. States came on probably 2-3 hours before arrival. He is not able to characterize it well. He has not noted any worsening or relieving factors. He states that prior to coming on he had run out of his usual home [place]. He states that he also has chronic back pain that he takes a [place] to control and that his back pain is flaring up. The patient does admit to drinking some alcohol earlier and then states that he had a fall but he denies injury related to that. There is no accompanying cough, dyspnea, diaphoresis, nausea or vomiting. MD Complaint: chest pain -: hour(s) Onset: during rest Pain Location: substernal Pain Radiation: none Severity: moderate Quality: aching Consistency: constant Improves With: nothing Worsens With: nothing Treatments Prior to Arrival: none - Related Data Home Medications Medication Instructions Recorded Confirmed Albuterol Inhaler [Ventolin Hfa 2 puff INHALATION RT-Q6H PRN 02/13/16 09/30/18 Inhaler] Atenolol 100 mg PO BID 02/13/16 09/30/18 Clopidogrel Bisulfate [Clopidogrel] 75 mg PO DAILY 02/13/16 09/30/18 INSULIN ASPART (NovoLOG) [NovoLOG See Protocol SQ AC-TID 02/13/16 09/30/18 (formulary)] Aspirin [Adult Low Dose Aspirin EC] 81 mg PO DAILY 02/16/16 09/30/18 Insulin Glargine,Hum.rec.anlog 30 unit SQ HS 06/20/18 09/30/18 [Basaglar Kwikpen U-100] Lisinopril [Zestril] 20 mg PO DAILY 06/20/18 09/30/18 Nitroglycerin 0.3mg Sl Tab 0.3 mg SL Q5M PRN 06/20/18 09/30/18 Pravastatin Sodium [Pravachol] 40 mg PO HS 06/20/18 09/30/18 Allergies Allergy/AdvReac Type Severity Reaction Status Date / Time Penicillins Allergy Unknown Verified 09/30/18 01:32 Childhood Review of Systems ROS Statement: Those systems with pertinent positive or pertinent negative responses have been documented in the HPI. ROS Other: All systems not noted in ROS Statement are negative. Constitutional: Denies: fever, chills Respiratory: Reports: cough. Denies: dyspnea Cardiovascular: Reports: chest pain. Denies: palpitations, edema, syncope Gastrointestinal: Denies: abdominal pain, nausea, vomiting, diarrhea Genitourinary: Denies: dysuria, hematuria Musculoskeletal: Reports: back pain (Chronic) Skin: Denies: rash Neurological: Denies: headache, weakness, numbness EKG Findings - EKG Results: EKG: interpreted by ERMD, sinus rhythm, normal axis, normal QRS, normal ST/T EKG shows: tachycardia (Rate 108 bpm) Past Medical History Past Medical History: Coronary Artery Disease (CAD), Diabetes Mellitus, Hyperlipidemia, Hypertension Additional Past Medical History / Comment(s): chronic back pain History of Any Multi-Drug Resistant Organisms: None Reported Past Surgical History: Cholecystectomy, Heart Catheterization With Stent Date of Last Stent Placement:: 2011 Past Psychological History: Anxiety, Bipolar, Depression Smoking Status: Current every day smoker Past Alcohol Use History: Rare Past Drug Use History: Heroin, Marijuana, Methamphetamine - Past Family History Mother Family Medical History: Cancer Additional Family Medical History / Comment(s): breast ca Father Family Medical History: Coronary Artery Disease (CAD), Diabetes Mellitus, Hypertension Additional Family Medical History / Comment(s): CABG at age 57 General Exam Limitations: no limitations General appearance: alert, in no apparent distress Head exam: Present: atraumatic, normocephalic Eye exam: Present: normal appearance Respiratory exam: Present: normal lung sounds bilaterally. Absent: respiratory distress, wheezes, rales, rhonchi, stridor Cardiovascular Exam: Present: normal rhythm, tachycardia (Rate 104 bpm), normal heart sounds. Absent: systolic murmur, diastolic murmur, rubs, gallop GI/Abdominal exam: Present: soft. Absent: distended, tenderness, guarding, rebound, mass Extremities exam: Present: normal inspection, normal capillary refill. Absent: pedal edema, calf tenderness Back exam: Present: normal inspection. Absent: CVA tenderness (R), CVA tenderness (L) Neurological exam: Present: alert Skin exam: Present: warm, dry, intact, normal color. Absent: rash Course Vital Signs 09/30/18 09/30/18 09/30/18 01:20 03:19 04:15 Temperature 98.5 F 98.4 F 98.0 F Pulse Rate 107 H 98 93 Respiratory 18 18 18 Rate Blood Pressure 141/96 148/97 158/99 O2 Sat by Pulse 100 98 99 Oximetry Disposition Clinical Impression: Chest pain Disposition: ADMITTED IP TO THIS HOSP Condition: Fair
[2018-09-30] MEDS ORDERED: ALBUTEROL NEBULIZED 2.5 MG/3 ML INHALATION PRN (06:00)
[2018-09-30 06:37] LABS: Glucose,Whole Blood 193 mg/dL (75-99)
[2018-09-30] MEDS ORDERED: ATENOLOL 50 MG TAB PO SCH (09:00)
[2018-09-30] MEDS ORDERED: amLODIPine 5 MG TAB PO SCH (09:00)
[2018-09-30] MEDS ORDERED: CYPROHEPTADINE 4 MG TABLET PO SCH (09:00)
--- NOTE | 2018-09-30 09:53 | P.CRDCN ---
History of Present Illness History of present illness: This is a 58-year-old male past medical history significant for coronary artery disease status post stent placement to the RCA at [facility] in 2011 with intermediate in-stent restenosis noted on repeat catheterization done here by Dr. Soni in 2016. He also has hypertension, dyslipidemia, diabetes mellitus, alcohol abuse and chronic nicotine dependence with history of substance abuse. He has a history of poor follow up. He saw Dr. Soni in the office one time in 2016 and heart cath was recommended. That study showed proximal to mid RCA stented with intermediate in-stent restenosis, distally mild disease, left main is calcified angiographically normal, ostial circumflex has a plaque in the range of 30%, proximal circumflex has disease in the range of 30%, LAD is angiographically normal. Ejection fraction at that time was 50% with basal inferior hypokinesia. Maximize medical therapy was recommended at that time. He is currently maintained on aspirin 81 mg daily, atenolol 100 mg twice a day, Plavix 75 mg daily, lisinopril 20 mg daily and pravastatin 40 mg daily. He presented to the hospital with symptoms of chest and back pain since running out of his prescribed [place]. Upon evaluation he is seen and examined sleeping in bed. He is difficult to arouse and frequently falls asleep during conversation. He was given IV ativan around 0430 in the ED. He opens his eyes long enough to look at me and say good morning then drifts off back to sleep. EKG reveals sinus tachycardia heart rate of [address] or T wave abnormalities noted. Laboratory data reviewed, overall unremarkable with negative cardiac enzymes 2. He was recently admitted to the hospital in May 2018 with an infected right heel ulcer and uncontrolled diabetes mellitus. Unable to obtain accurate review of systems due to lethargy Blood pressure 158/93 heart rate 85 afebrile maintaining oxygen saturation on room air GENERAL: This is a 58-year-old male in no apparent distress at the time of my examination. HEENT: Head is atraumatic, normocephalic. Pupils are equal, round. Sclerae anicteric. Conjunctivae are clear. Mucous membranes of the mouth are moist. Neck is supple. There is no jugular venous distention. No carotid bruit is heard. LUNGS: Clear to auscultation no wheezes, rales or rhonchi. No chest wall tenderness is noted on palpation or with deep breathing. HEART: Regular rate and rhythm without murmurs, rubs or gallops. S1 and S2 heard. ABDOMEN: Soft, nontender. Bowel sounds are heard. No organomegaly noted. EXTREMITIES: No evidence of peripheral edema and no calf tenderness noted. VASCULAR: Radial and dorsalis pedis pulses palpated, no evidence of clubbing. NEUROLOGIC: Patient is lethargic and difficult to arouse. ASSESSMENT Chest and back pain. Acute lethargy, probably related to IV ativan administration History of coronary artery disease s/p stent placement to RCA with intermediate in-stent restenosis 2016 Hypertension Dyslipidemia Diabetes mellitus Chronic nicotine dependence Substance abuse with drugs and alcohol Non-compliance PLAN Continue to obtain serial cardiac enzymes to rule out an acute coronary event. Obtain 2D echocardiogram and doppler study to assess cardiac structure and function. Consider obtaining urine drug screen to further assess lethargy and possibly avoid ativan administration moving forward. Further recommendations to follow. Thank you kindly for this consultation. Nurse Practitioner note has been reviewed, I agree with a documented findings and plan of care. Patient was seen and examined. Past Medical History Past Medical History: Coronary Artery Disease (CAD), Diabetes Mellitus, Hyperlipidemia, Hypertension Additional Past Medical History / Comment(s): chronic back pain History of Any Multi-Drug Resistant Organisms: None Reported Past Surgical History: Cholecystectomy, Heart Catheterization With Stent Date of Last Stent Placement:: 2011 Past Psychological History: Anxiety, Bipolar, Depression Smoking Status: Current every day smoker Past Alcohol Use History: Rare Past Drug Use History: Heroin, Marijuana, Methamphetamine - Past Family History Mother Family Medical History: Cancer Additional Family Medical History / Comment(s): breast ca Father Family Medical History: Coronary Artery Disease (CAD), Diabetes Mellitus, Hypertension Additional Family Medical History / Comment(s): CABG at age 57 Medications and Allergies Home Medications Medication Instructions Recorded Confirmed Type Albuterol Inhaler [Ventolin Hfa 2 puff INHALATION RT-Q6H PRN 02/13/16 09/30/18 History Inhaler] Atenolol 100 mg PO BID 02/13/16 09/30/18 History Clopidogrel Bisulfate [Clopidogrel] 75 mg PO DAILY 02/13/16 09/30/18 History INSULIN ASPART (NovoLOG) [NovoLOG See Protocol SQ AC-TID 02/13/16 09/30/18 History (formulary)] Aspirin [Adult Low Dose Aspirin EC] 81 mg PO DAILY 02/16/16 09/30/18 History Insulin Glargine,Hum.rec.anlog 30 unit SQ HS 06/20/18 09/30/18 History [Basaglar Kwikpen U-100] Lisinopril [Zestril] 20 mg PO DAILY 06/20/18 09/30/18 History Nitroglycerin 0.3mg Sl Tab 0.3 mg SL Q5M PRN 06/20/18 09/30/18 History Pravastatin Sodium [Pravachol] 40 mg PO HS 06/20/18 09/30/18 History Allergies Allergy/AdvReac Type Severity Reaction Status Date / Time Penicillins Allergy Unknown Verified 09/30/18 01:32 Childhood Physical Exam Vitals: Vital Signs Temp Pulse Pulse Resp BP BP BP 09/30/18 07:32 98.2 F 85 18 158/93 09/30/18 05:31 16 09/30/18 05:01 97.9 F 85 16 154/91 09/30/18 04:15 98.0 F 93 18 158/99 09/30/18 03:19 98.4 F 98 18 148/97 09/30/18 01:20 98.5 F 107 H 18 141/96 Pulse Ox 09/30/18 07:32 98 09/30/18 05:31 09/30/18 05:01 09/30/18 04:15 99 09/30/18 03:19 98 09/30/18 01:20 100 Intake and Output 09/29/18 09/30/18 09/30/18 22:59 06:59 14:59 Other: Voiding Method Urinal Urinal # Voids 0 Weight 63.503 kg 63.5 kg Results 09/30/18 01:36 09/30/18 01:36 Cardiac Enzymes 09/30/18 09/30/18 09/30/18 Range/Units 01:36 01:36 07:22 AST 46 (17-59) U/L Troponin I <0.012 <0.012 (0.000-0.034) ng/mL Coagulation 09/30/18 Range/Units 01:36 PT 10.9 (9.0-12.0) sec APTT 27.4 (22.0-30.0) sec CBC 09/30/18 Range/Units 01:36 WBC 7.3 (3.8-10.6) k/uL RBC 4.34 (4.30-5.90) m/uL Hgb 13.3 (13.0-17.5) gm/dL Hct 40.6 (39.0-53.0) % Plt Count 148 L (150-450) k/uL Comprehensive Metabolic Panel 09/30/18 Range/Units 01:36 Sodium 136 L (137-145) mmol/L Potassium 3.8 (3.5-5.1) mmol/L Chloride 105 (98-107) mmol/L Carbon Dioxide 19 L (22-30) mmol/L BUN 18 (9-20) mg/dL Creatinine 0.80 (0.66-1.25) mg/dL Glucose 181 H (74-99) mg/dL Calcium 9.1 (8.4-10.2) mg/dL AST 46 (17-59) U/L ALT 60 (21-72) U/L Alkaline Phosphatase 56 (38-126) U/L Total Protein 6.1 L (6.3-8.2) g/dL Albumin 3.5 (3.5-5.0) g/dL Current Medications Generic Name Dose Route Start Last Admin Trade Name Freq PRN Reason Stop Dose Admin Albuterol Sulfate 2.5 mg 09/30/18 06:00 Ventolin Nebulized INHALATION RT-Q6H PRN Shortness Of Breath Aspirin 325 mg 10/01/18 09:00 Aspirin PO DAILY [facility] Atenolol 100 mg 09/30/18 09:00 Tenormin PO BID [facility] Clopidogrel Bisulfate 75 mg 09/30/18 09:00 Plavix PO DAILY [facility] Insulin Detemir 30 unit 09/30/18 21:00 Levemir SQ HS [facility] Lisinopril 20 mg 09/30/18 09:00 Zestril PO DAILY [facility] Lorazepam 1 mg 09/30/18 04:14 Ativan IV Q2HR PRN CIWA 8 or 9 Lorazepam 1 mg 09/30/18 04:14 Ativan IV Q1HR PRN CIWA 10 to 15 Lorazepam 2 mg 09/30/18 04:14 Ativan IV 10/02/18 04:14 Q10M PRN CIWA 16 or higher Nitroglycerin 0.4 mg 09/30/18 04:04 Nitrostat SUBLINGUAL Q5M PRN Chest Pain Pravastatin Sodium 40 mg 09/30/18 21:00 Pravachol PO HS [facility] Sodium Chloride 10 ml 09/30/18 09:00 Saline Flush IV BID [facility] Thiamine HCl 100 mg 09/30/18 12:00 Vitamin B-1 PO BID@1200,1700 [facility] Intake and Output 09/29/18 09/30/18 09/30/18 22:59 06:59 14:59 Other: Voiding Method Urinal Urinal # Voids 0 Weight 63.503 kg 63.5 kg Patient Weight 10/01/18 06:59 Weight 63.5 kg 09/30/18 01:36 09/30/18 01:36
--- NOTE | 2018-09-30 10:57 | ECHOF ---
Referral Reason:cp MEASUREMENTS -------- HEIGHT: 180.3 cm WEIGHT: 63.5 kg BP: IVSd: 1.0 cm (0.6 - 1.1) LVIDd: 5.2 cm (3.9 - 5.3) LVPWd: 1.5 cm (0.6 - 1.1) IVSs: 1.6 cm LVIDs: 4.2 cm LVPWs: 1.5 cm Ao Diam: 3.2 cm (2.0 - 3.7) AV Cusp: 1.8 cm (1.5 - 2.6) LA Diam: 2.6 cm (2.7 - 3.8) MV EXCURSION: 18.742 mm (> 18.000) MV EF SLOPE: 191 mm/s (70 - 150) EPSS: 3.4 cm MV E [place]: 0.51 m/s MV DecT: 141 ms MV A [place]: 0.69 m/s MV E/A Ratio: 0.74 RAP: 5.00 mmHg RVSP: 9.64 mmHg FINDINGS -------- Sinus rhythm. This was a technically difficult study with suboptimal views. The left ventricular size is normal. There is mild concentric left ventricular hypertrophy. There is mild global hypokinesis of LV . Overall left ventricular systolic function is moderately impair ed with, an EF between 35 - 40 %. The right ventricle is normal in size. The left atrial size is normal. The right atrial size is normal. Lumason used The aortic valve is trileaflet and appears structurally normal. The mitral valve leaflets are mildly thickened. There is trace mitral regurgitation. Trace tricuspid regurgitation present. The right ventricular systolic pressure, as measured by Dopp ler, is 9.64mmHg. There is no pulmonic regurgitation present. The aortic root size is normal. IVC Not well visulized. There is no pericardial effusion. CONCLUSIONS -------- 1. Sinus rhythm. 2. This was a technically difficult study with suboptimal views. 3. The left ventricular size is normal. 4. There is mild concentric left ventricular hypertrophy. 5. Overall left ventricular systolic function is moderately impaired with, an EF between 35 - 40 %. 6. The right ventricle is normal in size. 7. The left atrial size is normal. 8. The right atrial size is normal. 9. Lumason used 10. The aortic valve is trileaflet and appears structurally normal. 11. The mitral valve leaflets are mildly thickened. 12. There is trace mitral regurgitation. 13. Trace tricuspid regurgitation present. 14. The right ventricular systolic pressure, as measured by Doppler, is 9.64mmHg. 15. There is no pulmonic regurgitation present. 16. The aortic root size is normal. 17. IVC Not well visulized. 18. There is no pericardial effusion. DEPUTY EDITOR IN CHIEF: Latonia Garcia RDCS
[2018-09-30] MEDS ORDERED: NITROGLYCERIN 0.3 MG SL PRN (11:07)
[2018-09-30 11:43] LABS: Glucose,Whole Blood 129 mg/dL (75-99)
[2018-09-30] MEDS: INSULIN ASPART (NovoLOG) 100 UNIT/ML VIAL SQ SCH ×3 (12:02→20:53)
[2018-09-30] MEDS: CLOPIDOGREL 75 MG TAB PO SCH (12:28)
[2018-09-30] MEDS: THIAMINE 100 MG TAB PO SCH ×2 (12:28→17:31)
[2018-09-30] MEDS: LISINOPRIL 20 MG TAB PO SCH (12:29)
[2018-09-30] MEDS: CARVEDILOL 12.5 MG TAB PO SCH ×2 (12:29→17:31)
[2018-09-30] MEDS: LORazepam 2 MG/ML INJ IV PRN ×2 (12:37→21:07)
[2018-09-30 16:56] LABS: Glucose,Whole Blood 219 mg/dL (75-99)
[2018-09-30 20:03] LABS: Glucose,Whole Blood 103 mg/dL (75-99)
[2018-09-30] MEDS ORDERED: INSULIN DETEMIR (LEVEMIR) 100 UNIT/ML SYR SQ SCH ×2 (21:00)
[2018-09-30] MEDS ORDERED: PRAVASTATIN SODIUM 40 MG TAB PO SCH (21:00)
[2018-09-30 21:48] LABS: Hemoglobin A1C 10.8 % (4.0-6.0)
[2018-10-01 06:38] LABS: Glucose,Whole Blood 167 mg/dL (75-99)
[2018-10-01 07:38] VITALS: BP 135/84; PULSE 77; RESP 18; TEMP 98
[2018-10-01] MEDS ORDERED: ASPIRIN 81 MG PO SCH (09:00)
[2018-10-01] MEDS ORDERED: NON-FORMULARY DRUG (Aspirin [Adult Low Dose Aspirin Ec] 81 MG) PO SCH (09:00)
[2018-10-01] MEDS ORDERED: ASPIRIN 325 MG TAB PO SCH (09:00)
--- NOTE | 2018-10-01 11:18 | P.PN ---
Subjective This is a 58-year-old male past medical history significant for coronary artery disease status post stent placement to the RCA at [facility] in 2011 with intermediate in-stent restenosis noted on repeat catheterization done here by Dr. Soni in 2016. He also has hypertension, dyslipidemia, diabetes mellitus, alcohol abuse and chronic nicotine dependence with history of substance abuse. He has a history of poor follow up. He saw Dr. Soni in the office one time in 2016 and heart cath was recommended. That study showed proximal to mid RCA stented with intermediate in-stent restenosis, distally mild disease, left main is calcified angiographically normal, ostial circumflex has a plaque in the range of 30%, proximal circumflex has disease in the range of 30%, LAD is angiographically normal. Ejection fraction at that time was 50% with basal inferior hypokinesia. Maximize medical therapy was recommended at that time. He is currently maintained on aspirin 81 mg daily, atenolol 100 mg twice a day, Plavix 75 mg daily, lisinopril 20 mg daily and pravastatin 40 mg daily. He presented to the hospital with symptoms of chest and back pain since running out of his prescribed [place]. Upon evaluation he is seen and examined sleeping in bed. He is difficult to arouse and frequently falls asleep during conversation. He was given IV ativan around 0430 in the ED. He opens his eyes long enough to look at me and say good morning then drifts off back to sleep. EKG reveals sinus tachycardia heart rate of [address] or T wave abnormalities noted. Laboratory data reviewed, overall unremarkable with negative cardiac enzymes 2. He was recently admitted to the hospital in May 2018 with an infected right heel ulcer and uncontrolled diabetes mellitus. 10/01/2018 Patient is seen and examined resting comfortably laying flat in bed. He is much more alert today and conversational. He denies chest pain, shortness of breath, dizziness or palpitations. Echo obtained yesterday revealed impaired LV systolic function with EF 35-40%. Blood pressure 135/84 heart rate 77 afebrile and maintaining oxygen saturation on room air. Laboratory data reviewed, cardiac enzymes negative 3. GENERAL: This is a 58-year-old male in no apparent distress at the time of my examination. HEENT: Head is atraumatic, normocephalic. Pupils are equal, round. Sclerae anicteric. Conjunctivae are clear. Mucous membranes of the mouth are moist. Neck is supple. There is no jugular venous distention. No carotid bruit is heard. LUNGS: Clear to auscultation no wheezes, rales or rhonchi. No chest wall tenderness is noted on palpation or with deep breathing. HEART: Regular rate and rhythm without murmurs, rubs or gallops. S1 and S2 heard. EXTREMITIES: No evidence of peripheral edema and no calf tenderness noted. ASSESSMENT Chest and back pain. Acute lethargy, probably related to IV ativan administration History of coronary artery disease s/p stent placement to RCA with intermediate in-stent restenosis 2016 Hypertension Dyslipidemia Diabetes mellitus Chronic nicotine dependence Substance abuse with drugs and alcohol Non-compliance PLAN An acute coronary event has been ruled out. Change atenolol to coreg 25 mg BID. Smoking, alcohol and drug use strongly discouraged and advised. Close follow up has been recommended as well. Nurse Practitioner note has been reviewed, I agree with a documented findings and plan of care. Patient was seen and examined. Objective - Vital Signs Vital signs: Vital Signs Temp 98.0 F 10/01/18 07:05 Pulse 77 10/01/18 07:05 Resp 18 10/01/18 07:05 BP 135/84 10/01/18 07:05 Pulse Ox 98 10/01/18 07:05 Intake & Output 09/30/18 10/01/18 10/01/18 18:59 06:59 18:59 Intake Total 236 300 560 Balance 236 300 560 Weight 63.5 kg Intake: Oral 236 300 560 Other: Voiding Method Urinal Urinal Urinal # Voids 1 1 - Labs CBC & Chem 7: 09/30/18 01:36 09/30/18 01:36 Labs: Abnormal Lab Results - Last 24 Hours (Table) 09/30/18 09/30/18 09/30/18 Range/Units 01:36 11:41 16:55 POC Glucose (mg/dL) 129 H 219 H (75-99) mg/dL Hemoglobin A1c 10.8 H (4.0-6.0) % 09/30/18 10/01/18 Range/Units 20:01 06:36 POC Glucose (mg/dL) 103 H 167 H (75-99) mg/dL Hemoglobin A1c (4.0-6.0) %
[2018-10-01 11:41] LABS: Glucose,Whole Blood 188 mg/dL (75-99)
[2018-10-01] MEDS: INSULIN ASPART (NovoLOG) 100 UNIT/ML VIAL SQ SCH ×2 (12:11→12:20)
[2018-10-01 12:17] LABS: Cholesterol 147 mg/dL (<200); HDL Cholesterol 51 mg/dL (40-60); LDL Cholesterol,Calculated 73 mg/dL (0-99); Triglycerides 115 mg/dL (<150)
[2018-10-01] MEDS: CLOPIDOGREL 75 MG TAB PO SCH (12:20)
[2018-10-01] MEDS: THIAMINE 100 MG TAB PO SCH (12:20)
[2018-10-01] MEDS: CARVEDILOL 12.5 MG TAB PO SCH (12:20)
[2018-10-01] MEDS: LISINOPRIL 20 MG TAB PO SCH (12:20)
--- NOTE | 2018-10-01 21:51 | HP ---
HISTORY AND PHYSICAL CHIEF COMPLAINT: Chest pain. HISTORY OF PRESENT ILLNESS: This is another admission of 58-year-old white male who has a history of coronary artery disease. He presented to the emergency room with chest pain with unremarkable EKG and enzymes. Because of his prior history of coronary artery problems, he was admitted for telemetry, serial EKGs and enzymes and cardiology consult. REVIEW OF SYSTEMS: He has had no neurologic problems, difficulty with vision or hearing, cough, hemoptysis, murmurs, fever, orthopnea, PND, congestive heart failure, abdominal pain, nausea, vomiting, hematemesis, melena, hematochezia, jaundice, hepatitis, cirrhosis, hematuria, frequency, urgency, renal failure, nocturia, obstructive symptoms, etc. He has not had pancreatitis. Past medical history, family history, and personal and social histories are otherwise unremarkable or noncontributory. He is an insulin-dependent diabetic. PHYSICAL EXAMINATION: Blood pressure 143/83 with a pulse of 78, respirations of 34, and he is afebrile. GENERAL: He appeared to be in some mild distress. Skin color is normal. Skin is warm and dry. Head, ears, eyes, nose, mouth and throat were normal and neck veins were not distended. Carotids were normal. Thyroid was not enlarged. Chest was clear, but there were decreased breath sounds throughout. No rales or rhonchi. Cardiac exam demonstrated normal sinus rhythm with occasional extra beats. No S3 or S4. The abdomen was flat, soft and nontender without any visceromegaly or masses. Extremities were normal. Neurologically he was intact. IMPRESSION: 1. Chest pain. 2. Previous history of coronary artery disease. 3. Premature ventricular contractions. 4. Chronic obstructive pulmonary disease. 5. Spr-dydrzwl-fyvavpxhz diabetes. PLAN: 1. Bed rest. 2. IV fluids. 3. Serial EKGs and enzymes. 4. Cardiology consult. MMODL / IJN: [id number] /
--- NOTE | 2018-10-02 07:43 | DS ---
DISCHARGE SUMMARY DATE OF SERVICE: 10/01/2018 CHIEF COMPLAINT: Chest pain. HISTORY OF PRESENT ILLNESS AND PHYSICAL EXAM: Details of this man's history and physical can be found in the initial workup. LABORATORY STUDIES: While he was in the hospital, he had laboratory studies, details of which can be found in the laboratory section of his chart. COURSE IN HOSPITAL: After admission, he was placed on bedrest, started on intravenous fluids and had serial EKGs and enzymes and they were normal. He had frequent episodes of PVCs with short runs of V-tach, which were self-limiting and asymptomatic. He was seen by Cardiology and it was felt that he could be discharged on 10/01 to outpatient followup. He will go home on his usual activity and medications and follow up in the office in a day or two. FINAL DIAGNOSES: 1. Chest pain. 2. Coronary artery disease. 3. Premature ventricular contractions. 4. Ventricular tachycardia. 5. Type 2 diabetes mellitus. OPERATIONS: None. CONSULTATIONS: Cardiology. He is improved. MMTRACE / ZHOUN: [id number] /
== END 2018-10-01 12:50 | disposition home or self-care (01) ==
LOC: EC 01:17 → 1SOBS 04:06
PROVIDERS: ADMIT Family Medicine; ATTEND Family Medicine
DX: R07.2 Precordial pain (principal); I25.10 Atherosclerotic heart disease of native coronary artery without angina pectoris; I49.3 Ventricular premature depolarization; I47.2 Ventricular tachycardia; E11.9 Type 2 diabetes mellitus without complications; G89.29 Other chronic pain; M54.9 Dorsalgia, unspecified; J44.9 Chronic obstructive pulmonary disease, unspecified; T82.855A Stenosis of coronary artery stent, initial encounter; I10 Essential (primary) hypertension; F10.10 Alcohol abuse, uncomplicated; E78.5 Hyperlipidemia, unspecified; R53.83 Other fatigue; F41.9 Anxiety disorder, unspecified; F31.9 Bipolar disorder, unspecified; Z91.14 Patient's other noncompliance with medication regimen; T40.2X6A Underdosing of other opioids, initial encounter; Y83.1 Surgical operation with implant of artificial internal device as the cause of abnormal reaction of the patient, or of later complication, without mention of misadventure at the time of the procedure; Z90.49 Acquired absence of other specified parts of digestive tract; Z95.5 Presence of coronary angioplasty implant and graft; F17.200 Nicotine dependence, unspecified, uncomplicated; Z79.02 Long term (current) use of antithrombotics/antiplatelets; Z79.82 Long term (current) use of aspirin; Z79.899 Other long term (current) drug therapy; Z79.4 Long term (current) use of insulin; Z88.0 Allergy status to penicillin; Z80.3 Family history of malignant neoplasm of breast
CPT/HCPCS: 96376 ×2; 96372; 96374; 99285; 36415; 93005; 80061; 80053; 82150; 83690; 83735; 84484; 85025; 85610; 85730; 83036; 71045; G0378 ×2; C8929; J2060 ×2; J3411; Q9950; 93306

== ENCOUNTER 2018-11-22 06:03 | Observation (INO) | payer OTHER ==
--- NOTE | 2018-11-22 06:39 | ED ---
SOB HPI - General Source: EMS Mode of arrival: EMS Limitations: no limitations - History of Present Illness MD Complaint: shortness of breath Onset/Timin -: days(s) Severity: moderate Consistency: constant Improves With: oxygen Worsens With: nothing Associated Symptoms: other (Chronic back pain) Treatments Prior to Arrival: oxygen - Related Data Home Oxygen Therapy: No <Figueroa Varela - Last Filed: 11/22/18 06:35> <Christos Street - Last Filed: 11/22/18 08:32> - General Chief Complaint: Shortness of Breath Stated Complaint: STANLEY Time Seen by Provider: 11/22/18 06:35 - History of Present Illness Initial Comments: This patient is 58-year-old man resenting with worsening of shortness of breath since Friday. The patient denies fever or chills. States he only has an occasional nonproductive cough. No chest pain. No diaphoresis. The patient does have nausea but no vomiting. No change in urination or bowel movements. No leg pain or swelling. On the review of systems, the patient does acknowledge having chronic back pain that is worse since she ran out of his chronic pain medication on Friday. (Figueroa Varela) - Related Data Home Medications Medication Instructions Recorded Confirmed Albuterol Inhaler [Ventolin Hfa 2 puff INHALATION RT-Q6H PRN 02/13/16 11/22/18 Inhaler] Clopidogrel Bisulfate [Clopidogrel] 75 mg PO DAILY 02/13/16 11/22/18 Atenolol 100 mg PO BID 11/22/18 11/22/18 Fluticasone/Salmeterol 1 puff INHALATION RT-DAILY 11/22/18 11/22/18 [Fluticasone-Salmeterol 113-14] INSULIN ASPART (NovoLOG) [NovoLOG See Protocol SQ ACHS 11/22/18 11/22/18 (formulary)] Insulin Glargine,Hum.rec.anlog 70 units SQ HS 11/22/18 11/22/18 [Basaglar Kwikpen U-100] Nitroglycerin Sl Tabs [Nitrostat] 0.4 mg SL Q5M 11/22/18 11/22/18 Previous Rx's Medication Instructions Recorded Carvedilol [Coreg*] 25 mg PO BID-W/MEALS #180 tab 10/01/18 Allergies Allergy/AdvReac Type Severity Reaction Status Date / Time Penicillins Allergy Unknown Verified 11/22/18 07:56 Childhood Review of Systems ROS Other: All systems not noted in ROS Statement are negative. Constitutional: Denies: fever, chills Respiratory: Reports: cough, dyspnea. Denies: wheezes Cardiovascular: Denies: chest pain, palpitations, orthopnea, edema, syncope Gastrointestinal: Denies: abdominal pain, nausea, vomiting, diarrhea, melena, hematochezia Musculoskeletal: Reports: back pain (Chronic) Skin: Denies: rash Neurological: Denies: headache, weakness, numbness <NicholeFigueroa - Last Filed: 11/22/18 06:35> ROS Other: All systems not noted in ROS Statement are negative. <Christos Street - Last Filed: 11/22/18 08:32> ROS Statement: Those systems with pertinent positive or pertinent negative responses have been documented in the HPI. Past Medical History Past Medical History: Coronary Artery Disease (CAD), Diabetes Mellitus, Hyperlipidemia, Hypertension Additional Past Medical History / Comment(s): chronic back pain History of Any Multi-Drug Resistant Organisms: None Reported Past Surgical History: Cholecystectomy, Heart Catheterization With Stent Date of Last Stent Placement:: 2011 Past Psychological History: Anxiety, Bipolar, Depression Smoking Status: Current every day smoker Past Alcohol Use History: Rare Past Drug Use History: Heroin, Marijuana, Methamphetamine - Past Family History Mother Family Medical History: Cancer Additional Family Medical History / Comment(s): breast ca Father Family Medical History: Coronary Artery Disease (CAD), Diabetes Mellitus, Hypertension Additional Family Medical History / Comment(s): CABG at age 57 <NicholeFigueroa - Last Filed: 11/22/18 06:35> General Exam Limitations: no limitations General appearance: alert, in no apparent distress Head exam: Present: atraumatic, normocephalic Eye exam: Present: normal appearance. Absent: scleral icterus, conjunctival injection ENT exam: Present: normal oropharynx Neck exam: Present: normal inspection Respiratory exam: Present: normal lung sounds bilaterally. Absent: respiratory distress, wheezes, rales, rhonchi, stridor Cardiovascular Exam: Present: regular rate, normal rhythm, normal heart sounds. Absent: systolic murmur, diastolic murmur, rubs, gallop GI/Abdominal exam: Present: soft. Absent: distended, tenderness, guarding, rebound, mass Extremities exam: Present: normal inspection, normal capillary refill. Absent: pedal edema, calf tenderness Back exam: Present: normal inspection. Absent: CVA tenderness (R), CVA tenderness (L) Neurological exam: Present: alert Skin exam: Present: warm, dry, intact, normal color. Absent: rash <Figueroa Varela - Last Filed: 11/22/18 06:35> Course Vital Signs 11/22/18 11/22/18 11/22/18 06:05 06:15 07:00 Temperature 98.2 F Pulse Rate 104 H 97 Respiratory 20 13 Rate Blood Pressure 149/116 125/96 146/92 O2 Sat by Pulse 99 99 Oximetry 11/22/18 11/22/18 07:19 08:00 Temperature Pulse Rate 99 96 Respiratory 18 16 Rate Blood Pressure 145/99 145/101 O2 Sat by Pulse 99 98 Oximetry Medical Decision Making - EKG Data -: EKG Interpreted by Nm EKG shows normal: sinus rhythm (With frequent PVCs), axis (Normal), intervals (Normal) Rate: tachycardia (The rate is approximately 103 bpm) Interpretation: nonspecific ST-T wave changes <Figueroa Varela - Last Filed: 11/22/18 06:35> - Lab Data Result diagrams: 11/22/18 06:14 11/22/18 06:14 - Radiology Data Radiology results: image reviewed (Chest x-ray shows interstitial edema and pulm onary venous hypertension. Bibasilar effusions.) <Christos Street - Last Filed: 11/22/18 08:32> - Medical Decision Making Patient reevaluated and resting comfortably in bed. Patient states he does feel better with oxygen on. Patient is updated on results and plan. Dr. Chicas has been paged for admission. Cardiology will be placed on consult (Christos Street) - Lab Data Lab Results 11/22/18 11/22/18 11/22/18 Range/Units 06:14 06:14 06:14 WBC 7.4 (3.8-10.6) k/uL RBC 4.52 (4.30-5.90) m/uL Hgb 14.2 (13.0-17.5) gm/dL Hct 42.1 (39.0-53.0) % MCV 93.3 (80.0-100.0) fL MCH 31.4 (25.0-35.0) pg MCHC 33.7 (31.0-37.0) g/dL RDW 13.6 (11.5-15.5) % Plt Count 139 L (150-450) k/uL Neutrophils % 55 % Lymphocytes % 31 % Monocytes % 8 % Eosinophils % 3 % Basophils % 1 % Neutrophils # 4.1 (1.3-7.7) k/uL Lymphocytes # 2.3 (1.0-4.8) k/uL Monocytes # 0.6 (0-1.0) k/uL Eosinophils # 0.2 (0-0.7) k/uL Basophils # 0.1 (0-0.2) k/uL PT 11.0 (9.0-12.0) sec INR 1.0 (<1.2) APTT 27.9 (22.0-30.0) sec D-Dimer 0.31 (<0.60) mg/L FEU Sodium 135 L (137-145) mmol/L Potassium 4.5 (3.5-5.1) mmol/L Chloride 103 (98-107) mmol/L Carbon Dioxide 26 (22-30) mmol/L Anion Gap 6 mmol/L BUN 19 (9-20) mg/dL Creatinine 0.77 (0.66-1.25) mg/dL Est GFR (CKD-EPI)AfAm >90 (>60 ml/min/1.73 sqM) Est GFR (CKD-EPI)NonAf >90 (>60 ml/min/1.73 sqM) Glucose 185 H (74-99) mg/dL Calcium 9.1 (8.4-10.2) mg/dL Total Bilirubin 1.3 (0.2-1.3) mg/dL AST 55 (17-59) U/L ALT 64 (21-72) U/L Alkaline Phosphatase 66 (38-126) U/L Troponin I (0.000-0.034) ng/mL NT-Pro-B Natriuret Pep pg/mL Total Protein 6.3 (6.3-8.2) g/dL Albumin 3.5 (3.5-5.0) g/dL 11/22/18 11/22/18 Range/Units 06:14 06:14 WBC (3.8-10.6) k/uL RBC (4.30-5.90) m/uL Hgb (13.0-17.5) gm/dL Hct (39.0-53.0) % MCV (80.0-100.0) fL MCH (25.0-35.0) pg MCHC (31.0-37.0) g/dL RDW (11.5-15.5) % Plt Count (150-450) k/uL Neutrophils % % Lymphocytes % % Monocytes % % Eosinophils % % Basophils % % Neutrophils # (1.3-7.7) k/uL Lymphocytes # (1.0-4.8) k/uL Monocytes # (0-1.0) k/uL Eosinophils # (0-0.7) k/uL Basophils # (0-0.2) k/uL PT (9.0-12.0) sec INR (<1.2) APTT (22.0-30.0) sec D-Dimer (<0.60) mg/L FEU Sodium (137-145) mmol/L Potassium (3.5-5.1) mmol/L Chloride (98-107) mmol/L Carbon Dioxide (22-30) mmol/L Anion Gap mmol/L BUN (9-20) mg/dL Creatinine (0.66-1.25) mg/dL Est GFR (CKD-EPI)AfAm (>60 ml/min/1.73 sqM) Est GFR (CKD-EPI)NonAf (>60 ml/min/1.73 sqM) Glucose (74-99) mg/dL Calcium (8.4-10.2) mg/dL Total Bilirubin (0.2-1.3) mg/dL AST (17-59) U/L ALT (21-72) U/L Alkaline Phosphatase (38-126) U/L Troponin I 0.021 (0.000-0.034) ng/mL NT-Pro-B Natriuret Pep 4250 pg/mL Total Protein (6.3-8.2) g/dL Albumin (3.5-5.0) g/dL Disposition <Figueroa Varela - Last Filed: 11/22/18 06:35> Is patient prescribed a controlled substance at d/c from ED?: No Decision Time: 08:32 <[address] - Last Filed: 11/22/18 08:32> Clinical Impression: Congestive heart failure Disposition: ADMITTED IP TO THIS HOSP Referrals: None,Stated [REFERRING] - 1-2 days
[2018-11-22 07:19] LABS: ALT 64 U/L (21-72); AST 55 U/L (17-59); Albumin 3.5 g/dL (3.5-5.0); Alkaline Phosphatase 66 U/L (38-126); Anion Gap 6 mmol/L; Blood Urea Nitrogen 19 mg/dL (9-20); Calcium 9.1 mg/dL (8.4-10.2); Carbon Dioxide 26 mmol/L (22-30); Chloride 103 mmol/L (98-107); Glucose 185 mg/dL (74-99); Potassium 4.5 mmol/L (3.5-5.1); Sodium 135 mmol/L (137-145); Total Bilirubin 1.3 mg/dL (0.2-1.3); Total Protein 6.3 g/dL (6.3-8.2)
[2018-11-22 07:25] LABS: Basophils # (A) 0.1 k/uL (0-0.2); Basophils % (A) 1 %; Eosinophils # (A) 0.2 k/uL (0-0.7); Eosinophils % (A) 3 %; HCT 42.1 % (39.0-53.0); HGB 14.2 gm/dL (13.0-17.5); Lymphocytes # (A) 2.3 k/uL (1.0-4.8); Lymphocytes % (A) 31 %; MCH 31.4 pg (25.0-35.0); MCHC 33.7 g/dL (31.0-37.0); MCV 93.3 fL (80.0-100.0); Mean Platelet Volume 9.2; Monocytes # (A) 0.6 k/uL (0-1.0); Monocytes % (A) 8 %; Neutrophils # (A) 4.1 k/uL (1.3-7.7); Neutrophils % (A) 55 %; Platelet Count 139 k/uL (150-450); RBC 4.52 m/uL (4.30-5.90); RDW 13.6 % (11.5-15.5); WBC 7.4 k/uL (3.8-10.6)
[2018-11-22 07:30] LABS: D-Dimer 0.31 mg/L FEU (<0.60); Partial Thromboplastin Time 27.9 sec (22.0-30.0)
[2018-11-22] MEDS ORDERED: HYDROcodone/APAP 5-325MG 1 EACH TAB PO STA (07:33)
--- NOTE | 2018-11-22 07:41 | XR ---
EXAMINATION TYPE: XR chest 2V DATE OF EXAM: 11/22/2018 COMPARISON: Prior chest x-ray 09/30/2018 HISTORY: Difficulty breathing TECHNIQUE: Frontal and lateral views of the chest are obtained. FINDINGS: Blunting of the posterior costophrenic angles is noted. Prominent underlying lung volumes suggests COPD. Interstitium is increased. Heart is enlarged. No pneumothorax. Patient is rotated. IMPRESSION: Correlate for pulmonary venous hypertension and interstitial edema, bibasilar effusions and associated atelectasis versus edema, pneumonia not excluded. Follow-up recommended.
[2018-11-22] MEDS ORDERED: ASPIRIN 325 MG TAB PO STA (08:32)
[2018-11-22] MEDS: NITROGLYCERIN OINT 1 INCH/GM PACKET TOPICAL SCH ×4 (09:04→23:00)
[2018-11-22] MEDS: FUROSEMIDE 10 MG/ML 4 ML VIAL IV SCH ×3 (09:04→23:01)
[2018-11-22] MEDS ORDERED: ALBUTEROL NEBULIZED 2.5 MG/3 ML INHALATION PRN (11:31)
[2018-11-22] MEDS ORDERED: NITROGLYCERIN SL TABS 0.4 MG TAB SUBLINGUAL PRN (11:45)
[2018-11-22 11:46] VITALS: BMI 21.0
[2018-11-22 12:10] LABS: Glucose,Whole Blood 282 mg/dL (75-99)
[2018-11-22] MEDS: INSULIN ASPART (NovoLOG) 100 UNIT/ML VIAL SQ SCH ×3 (12:44→21:12)
--- NOTE | 2018-11-22 12:56 | P.CRDCN ---
History of Present Illness Consult date: 11/22/18 Chief complaint: Shortness of breath History of present illness: This is a pleasant 58-year-old gentleman with history of coronary artery disease and prior stenting of the RCA was performed at [facility] in 2011 with the last heart catheterization was performed in 2015 here showing intermediate coronary artery disease involving the RCA and mild coronary artery disease involving the left coronary system, ischemic cardiomyopathy with known EF between 35-40% based on echocardiogram was performed in September 2018, diabetes, hypertension, and significant history of smoking, presented to the hospital complaining of shortness of breath. The patient stated that he was in his usual state of health until this past Friday when he started experiencing progressive exertional dyspnea associated with bilateral lower extremities edema. He did not have any orthopnea or PND. No symptoms of chest pain or chest discomfort. No feeling of heart racing or fluttering. And no syncope. Because of that he decided to come to the emergency room. The EKG showed sinus rhythm. The chest x-ray showed findings consistent with CHF. The BNP came in elevated at 5000. On physical examination he does have expiratory wheezing. No edema noted but the patient stated that he did have edema in the lower extremities yesterday when he presented to the emergency room. Currently the patient is on Lasix IV. He is in process of having an echocardiogram was Doppler. As a mentioned earlier the last echo from September 2018 revealed an EF between 35-40%. Past Medical History Past Medical History: Coronary Artery Disease (CAD), Diabetes Mellitus, Hyperlipidemia, Hypertension Additional Past Medical History / Comment(s): chronic back pain History of Any Multi-Drug Resistant Organisms: None Reported Past Surgical History: Cholecystectomy, Heart Catheterization With Stent Date of Last Stent Placement:: 2011 Past Psychological History: Anxiety, Bipolar, Depression Smoking Status: Current every day smoker Past Alcohol Use History: Rare Past Drug Use History: Heroin, Marijuana, Methamphetamine - Past Family History Mother Family Medical History: Cancer Additional Family Medical History / Comment(s): breast ca Father Family Medical History: Coronary Artery Disease (CAD), Diabetes Mellitus, Hypertension Additional Family Medical History / Comment(s): CABG at age 57 Medications and Allergies Home Medications Medication Instructions Recorded Confirmed Type Albuterol Inhaler [Ventolin Hfa 2 puff INHALATION RT-Q6H PRN 02/13/16 11/22/18 History Inhaler] Clopidogrel Bisulfate [Clopidogrel] 75 mg PO DAILY 02/13/16 11/22/18 History Carvedilol [Coreg*] 25 mg PO BID-W/MEALS #180 tab 10/01/18 11/22/18 Rx Atenolol 100 mg PO BID 11/22/18 11/22/18 History Fluticasone/Salmeterol 1 puff INHALATION RT-DAILY 11/22/18 11/22/18 History [Fluticasone-Salmeterol 113-14] INSULIN ASPART (NovoLOG) [NovoLOG See Protocol SQ ACHS 11/22/18 11/22/18 History (formulary)] Insulin Glargine,Hum.rec.anlog 70 units SQ HS 11/22/18 11/22/18 History [Basaglar Kwikpen U-100] Nitroglycerin Sl Tabs [Nitrostat] 0.4 mg SL Q5M 11/22/18 11/22/18 History Allergies Allergy/AdvReac Type Severity Reaction Status Date / Time Penicillins Allergy Unknown Verified 11/22/18 07:56 Childhood Physical Exam Vitals: Vital Signs Temp Pulse Pulse Resp BP BP Pulse Ox 11/22/18 12:00 72 16 128/92 94 L 11/22/18 09:07 89 143/87 11/22/18 08:42 98 F 94 18 151/99 95 11/22/18 08:00 96 16 145/101 98 11/22/18 07:19 99 18 145/99 99 11/22/18 07:00 97 13 146/92 99 11/22/18 06:15 125/96 11/22/18 06:05 98.2 F 104 H 20 149/116 99 Intake and Output 11/21/18 11/22/18 11/22/18 22:59 06:59 14:59 Other: Weight 113.398 kg 64.7 kg - Constitutional General appearance: no acute distress - Respiratory Respiratory: bilateral: wheezing - Cardiovascular Rhythm: regular Heart sounds: normal: S1, S2 Results 11/22/18 06:14 11/22/18 06:14 Cardiac Enzymes 11/22/18 11/22/18 Range/Units 06:14 06:14 AST 55 (17-59) U/L Troponin I 0.021 (0.000-0.034) ng/mL Coagulation 11/22/18 Range/Units 06:14 PT 11.0 (9.0-12.0) sec APTT 27.9 (22.0-30.0) sec CBC 11/22/18 Range/Units 06:14 WBC 7.4 (3.8-10.6) k/uL RBC 4.52 (4.30-5.90) m/uL Hgb 14.2 (13.0-17.5) gm/dL Hct 42.1 (39.0-53.0) % Plt Count 139 L (150-450) k/uL Comprehensive Metabolic Panel 11/22/18 Range/Units 06:14 Sodium 135 L (137-145) mmol/L Potassium 4.5 (3.5-5.1) mmol/L Chloride 103 (98-107) mmol/L Carbon Dioxide 26 (22-30) mmol/L BUN 19 (9-20) mg/dL Creatinine 0.77 (0.66-1.25) mg/dL Glucose 185 H (74-99) mg/dL Calcium 9.1 (8.4-10.2) mg/dL AST 55 (17-59) U/L ALT 64 (21-72) U/L Alkaline Phosphatase 66 (38-126) U/L Total Protein 6.3 (6.3-8.2) g/dL Albumin 3.5 (3.5-5.0) g/dL Current Medications Generic Name Dose Route Start Last Admin Trade Name Freq PRN Reason Stop Dose Admin Albuterol Sulfate 2.5 mg 11/22/18 11:31 Ventolin Nebulized INHALATION RT-Q6H PRN Shortness Of Breath Budesonide/Formoterol Fumarate 2 puff 11/22/18 20:00 Symbicort 160-4.5 Mcg Inhaler INHALATION RT-BID MIRLANDE Carvedilol 25 mg 11/22/18 17:30 Coreg PO BID-W/MEALS MIRLANDE Furosemide 40 mg 11/22/18 08:45 11/22/18 09:04 Lasix IV 40 mg Q8HR MIRLANDE Administration Insulin Aspart 15 unit 11/22/18 12:30 11/22/18 12:44 Novolog SQ 15 unit ACHS MIRLANDE Administration Nitroglycerin 1 inch 11/22/18 09:00 11/22/18 12:44 Nitro-Bid Oint TOPICAL 1 inch QID MIRLANDE Administration Nitroglycerin 0.4 mg 11/22/18 11:45 Nitrostat SUBLINGUAL Q5M PRN CHEST PAIN Sodium Chloride 10 ml 11/22/18 09:00 11/22/18 09:04 Saline Flush IV 10 ml BID MIRLANDE Administration Intake and Output 11/21/18 11/22/18 11/22/18 22:59 06:59 14:59 Other: Weight 113.398 kg 64.7 kg Patient Weight 11/23/18 06:59 Weight 64.7 kg 11/22/18 06:14 11/22/18 06:14 Assessment and Plan Assessment: Assessment #1 congestive heart failure exacerbation secondary to systolic dysfunction, acute on chronic #2 cardiomyopathy was EF between 35-40% based on recent echo #3 coronary artery disease as described above with prior revascularization #4 significant history of smoking #5 multiple comorbid conditions including diabetes, hypertension, and dyslipidemia Plan #1 continue the current dose of Lasix IV #2 continue monitor the kidney function and electrolytes #3 no need to repeat the echocardiogram #4 follow-up with the patient Thank you for allowing us participate in his care and we will continue following up with the patient
--- NOTE | 2018-11-22 15:27 | P.HPIM ---
History of Present Illness 58-year-old gentleman came in with complains of shortness of breath has been going on since last Friday. Patient did not give any clear history of orthopnea proximal nocturnal dyspnea patient does not a good historian patient is found have elevated JVD does have pulmonary edema on the chest x-ray with elevated BNP. Patient was started on IV Lasix. Patient's previous ejection fraction is 35-40% had coronary artery disease ischemic cardiomyopathy hiccuping a history of prior stenting to RCA in 2011. Patient denied any fever chills cough patient does smoke but cut down on smoking. Patient is comparing of lower extremity edema as well. Review of Systems REVIEW OF SYSTEMS: CONSTITUTIONAL: No fever, no malaise, no fatigue. HEENT: No recent visual problems or hearing problems. Denied any sore throat. CARDIOVASCULAR: No chest pain, orthopnea, PND, no palpitations, no syncope. PULMONARY: no hemoptysis. GASTROINTESTINAL: No diarrhea, no nausea, no vomiting, no abdominal pain. NEUROLOGICAL: No headaches, no weakness, no numbness. HEMATOLOGICAL: Denies any bleeding or petechiae. GENITOURINARY: Denies any burning micturition, frequency, or urgency. MUSCULOSKELETAL/RHEUMATOLOGICAL: Denies any joint pain, swelling, or any muscle pain. ENDOCRINE: Denies any polyuria or polydipsia. The rest of the 14-point review of systems is negative. Past Medical History Past Medical History: Coronary Artery Disease (CAD), Diabetes Mellitus, Hyperli pidemia, Hypertension Additional Past Medical History / Comment(s): chronic back pain History of Any Multi-Drug Resistant Organisms: None Reported Past Surgical History: Cholecystectomy, Heart Catheterization With Stent Date of Last Stent Placement:: 2011 Past Psychological History: Anxiety, Bipolar, Depression Smoking Status: Current every day smoker Past Alcohol Use History: Rare Past Drug Use History: Heroin, Marijuana, Methamphetamine - Past Family History Mother Family Medical History: Cancer Additional Family Medical History / Comment(s): breast ca Father Family Medical History: Coronary Artery Disease (CAD), Diabetes Mellitus, Hypertension Additional Family Medical History / Comment(s): CABG at age 57 Medications and Allergies Home Medications Medication Instructions Recorded Confirmed Type Albuterol Inhaler [Ventolin Hfa 2 puff INHALATION RT-Q6H PRN 02/13/16 11/22/18 History Inhaler] Clopidogrel Bisulfate [Clopidogrel] 75 mg PO DAILY 02/13/16 11/22/18 History Carvedilol [Coreg*] 25 mg PO BID-W/MEALS #180 tab 10/01/18 11/22/18 Rx Atenolol 100 mg PO BID 11/22/18 11/22/18 History Fluticasone/Salmeterol 1 puff INHALATION RT-DAILY 11/22/18 11/22/18 History [Fluticasone-Salmeterol 113-14] INSULIN ASPART (NovoLOG) [NovoLOG See Protocol SQ ACHS 11/22/18 11/22/18 History (formulary)] Insulin Glargine,Hum.rec.anlog 70 units SQ HS 11/22/18 11/22/18 History [Basaglar Kwikpen U-100] Nitroglycerin Sl Tabs [Nitrostat] 0.4 mg SL Q5M 11/22/18 11/22/18 History Allergies Allergy/AdvReac Type Severity Reaction Status Date / Time Penicillins Allergy Unknown Verified 11/22/18 07:56 Childhood Physical Exam Vitals: Vital Signs Temp Pulse Pulse Resp BP BP Pulse Ox 11/22/18 12:00 72 16 128/92 94 L 11/22/18 09:07 89 143/87 11/22/18 08:42 98 F 94 18 151/99 95 11/22/18 08:00 96 16 145/101 98 11/22/18 07:19 99 18 145/99 99 11/22/18 07:00 97 13 146/92 99 11/22/18 06:15 125/96 11/22/18 06:05 98.2 F 104 H 20 149/116 99 Intake and Output 11/22/18 11/22/18 11/22/18 06:59 14:59 22:59 Other: Weight 113.398 kg 64.7 kg PHYSICAL EXAMINATION: GENERAL: The patient is alert and oriented x3, not in any acute distress. Well developed, well nourished. HEENT: Pupils are round and equally reacting to light. EOMI. No scleral icterus. No conjunctival pallor. Normocephalic, atraumatic. No pharyngeal erythema. No thyromegaly. CARDIOVASCULAR: S1 and S2 present. No murmurs, rubs, or gallops. Patient does have elevated JVD PULMONARY: Normal expiratory wheezing bibasilar crackles. ABDOMEN: Soft, nontender, nondistended, normoactive bowel sounds. No palpable organomegaly. MUSCULOSKELETAL: No joint swelling or deformity. EXTREMITIES: No cyanosis, clubbing, or pedal edema. NEUROLOGICAL: Gross neurological examination did not reveal any focal deficits. SKIN: No rashes. Results CBC & Chem 7: 11/22/18 06:14 11/22/18 06:14 Labs: Abnormal Lab Results - Last 24 Hours (Table) 11/22/18 11/22/18 11/22/18 Range/Units 06:14 06:14 11:54 Plt Count 139 L (150-450) k/uL Sodium 135 L (137-145) mmol/L Glucose 185 H (74-99) mg/dL POC Glucose (mg/dL) 282 H (75-99) mg/dL Thrombosis Risk Factor Assmnt - Choose All That Apply Any of the Below Risk Factors Present?: Yes Each Factor Represents 1 point: Swollen legs (current) Thrombosis Risk Factor Assessment Total Risk Factor Score: 1 Thrombosis Risk Factor Assessment Level: Low Risk Assessment and Plan Plan: -Congestive heart failure chronic systolic dysfunction with acute exacerbation: Patient will be continued on IV Lasix. CATHIE inhibitor. Monitor basic metabolic profile. -Ischemic cardiomyopathy -COPD with mildly exacerbation patient will not need any system steroids patient will be continued on inhaled steroids and inhalational treatments, counseling regarding continued nicotine use was provided -Type 2 diabetes mellitus patient to insulin regimen will be resumed and the patient will also be initiated on sliding scale insulin depending on the results of studies urine blood sugars his insulin regimen will be titrated -Coronary artery disease -Hypertension Patient will need pharmacologic DVT prophylaxis
[2018-11-22 17:21] LABS: Glucose,Whole Blood 280 mg/dL (75-99)
[2018-11-22] MEDS: HEPARIN SODIUM,PORCINE 5,000 UNIT/ML 1 ML VIAL SQ SCH ×2 (17:36→23:01)
[2018-11-22] MEDS: CARVEDILOL 12.5 MG TAB PO SCH (17:37)
[2018-11-22] MEDS: HYDROcodone/APAP 7.5-325MG 1 EACH TAB PO PRN (18:36)
[2018-11-22] MEDS: SYMBICORT 160-4.5 MCG INHALER INHALATION SCH (20:30)
[2018-11-22 20:41] LABS: Glucose,Whole Blood 263 mg/dL (75-99)
[2018-11-23 04:34] LABS: Basophils % (A) 0 %; Eosinophils # (A) 0.1 k/uL (0-0.7); Eosinophils % (A) 1 %; HGB 14.1 gm/dL (13.0-17.5); Lymphocytes # (A) 1.9 k/uL (1.0-4.8); Lymphocytes % (A) 15 %; MCH 31.1 pg (25.0-35.0); MCHC 33.6 g/dL (31.0-37.0); MCV 92.3 fL (80.0-100.0); Mean Platelet Volume 9.5; Monocytes % (A) 8 %; Neutrophils # (A) 9.3 k/uL (1.3-7.7); Neutrophils % (A) 75 %; Platelet Count 153 k/uL (150-450); RBC 4.54 m/uL (4.30-5.90); RDW 13.7 % (11.5-15.5); WBC 12.4 k/uL (3.8-10.6)
[2018-11-23 04:35] LABS: Anion Gap 7 mmol/L; Blood Urea Nitrogen 36 mg/dL (9-20); Carbon Dioxide 28 mmol/L (22-30); Chloride 98 mmol/L (98-107); Glucose 100 mg/dL (74-99); Potassium 4.3 mmol/L (3.5-5.1); Sodium 133 mmol/L (137-145)
[2018-11-23 06:03] LABS: Glucose,Whole Blood 125 mg/dL (75-99)
[2018-11-23] MEDS: HYDROcodone/APAP 7.5-325MG 1 EACH TAB PO PRN (06:20)
[2018-11-23] MEDS: INSULIN ASPART (NovoLOG) 100 UNIT/ML VIAL SQ SCH ×4 (07:15→20:30)
[2018-11-23] MEDS: CARVEDILOL 12.5 MG TAB PO SCH ×2 (07:15→17:06)
[2018-11-23] MEDS: HEPARIN SODIUM,PORCINE 5,000 UNIT/ML 1 ML VIAL SQ SCH ×3 (08:48→22:59)
[2018-11-23] MEDS: FUROSEMIDE 10 MG/ML 4 ML VIAL IV SCH (08:48)
[2018-11-23] MEDS: SYMBICORT 160-4.5 MCG INHALER INHALATION SCH ×2 (08:56→20:09)
[2018-11-23] MEDS ORDERED: ASPIRIN 325 MG TAB PO SCH (09:00)
[2018-11-23] MEDS ORDERED: CLOPIDOGREL 75 MG TAB PO SCH (09:00)
[2018-11-23] MEDS: NITROGLYCERIN OINT 1 INCH/GM PACKET TOPICAL SCH ×5 (11:41→22:56)
[2018-11-23 12:06] LABS: Glucose,Whole Blood 106 mg/dL (75-99)
[2018-11-23] MEDS: GABAPENTIN 300 MG CAP PO SCH ×3 (12:20→20:31)
[2018-11-23] MEDS: predniSONE 10 MG TAB PO SCH (12:20)
--- NOTE | 2018-11-23 12:36 | P.PN ---
Subjective Progress Note Date: 11/23/18 Principal diagnosis: Congestive heart failure secondary to systolic dysfunction This is a pleasant 58-year-old gentleman with history of coronary artery disease and prior stenting of the RCA was performed at [facility] in 2011 with the last heart catheterization was performed in 2015 here showing intermediate coronary artery disease involving the RCA and mild coronary artery disease involving the left coronary system, ischemic cardiomyopathy with known EF between 35-40% based on echocardiogram was performed in September 2018, diabetes, hypertension, and significant history of smoking, presented to the hospital complaining of shortness of breath. The patient stated that he was in his usual state of health until this past Friday when he started experiencing progressive exertional dyspnea associated with bilateral lower extremities edema. He did not have any orthopnea or PND. No symptoms of chest pain or chest discomfort. No feeling of heart racing or fluttering. And no syncope. Because of that he decided to come to the emergency room. The EKG showed sinus rhythm. The chest x-ray showed findings consistent with CHF. The BNP came in elevated at 5000. On physical examination he does have expiratory wheezing. No edema noted but the patient stated that he did have edema in the lower extremities yesterday when he presented to the emergency room. Currently the patient is on Lasix IV. He is in process of having an echocardiogram was Doppler. As a mentioned earlier the last echo from September 2018 revealed an EF between 35-40%. On follow-up with the patient today, 11/23/2018, the patient is feeling better internal shortness of breath. The lower extremities edema has improved as well. Hemodynamically he continues to be stable. He was to switch to Lasix by mouth early her today by the primary care team. With his ejection fraction being a 35 -40%, I am going to add Aldactone to the current medical regimen and also add lisinopril 2.5 mg daily. I recommended continue the patient for additional 24 hours. Objective - Vital Signs Vital signs: Vital Signs Temp 98.1 F 11/23/18 08:51 Pulse 73 11/23/18 08:51 Resp 17 11/23/18 08:51 BP 91/51 11/23/18 08:51 Pulse Ox 97 11/23/18 08:51 Intake & Output 11/22/18 11/23/18 11/23/18 18:59 06:59 18:59 Intake Total 430 820 240 Output Total 800 Balance -370 820 240 Weight 64.7 kg 64 kg Intake: IV 20 Invasive Line 1 20 Oral 430 800 240 Output: Urine 800 Other: Voiding Method Toilet Toilet # Voids 1 - Constitutional General appearance: Present: no acute distress - Respiratory Respiratory: bilateral: diminished - Cardiovascular Rhythm: regular Heart sounds: normal: S1, S2 - Labs CBC & Chem 7: 11/23/18 03:52 11/23/18 03:52 Labs: Abnormal Lab Results - Last 24 Hours (Table) 11/22/18 11/22/18 11/23/18 Range/Units 16:41 20:35 03:52 WBC (3.8-10.6) k/uL Neutrophils # (1.3-7.7) k/uL Sodium 133 L (137-145) mmol/L BUN 36 H (9-20) mg/dL Glucose 100 H (74-99) mg/dL POC Glucose (mg/dL) 280 H 263 H (75-99) mg/dL 11/23/18 11/23/18 11/23/18 Range/Units 03:52 06:01 12:02 WBC 12.4 H (3.8-10.6) k/uL Neutrophils # 9.3 H (1.3-7.7) k/uL Sodium (137-145) mmol/L BUN (9-20) mg/dL Glucose (74-99) mg/dL POC Glucose (mg/dL) 125 H 106 H (75-99) mg/dL Assessment and Plan Assessment: Assessment #1 congestive heart failure exacerbation secondary to systolic dysfunction, acute on chronic #2 cardiomyopathy was EF between 35-40% based on recent echo #3 coronary artery disease as described above with prior revascularization #4 significant history of smoking #5 multiple comorbid conditions including diabetes, hypertension, and dyslipidemia Plan #1 add Aldactone to the current medical regimen #2 add lisinopril to the current medical regimen #3 continue watch the patient for additional 24 hours #4 follow-up with the patient Thank you for allowing us participate in his care and we will continue following up with the patient
[2018-11-23] MEDS: KETOROLAC 30 MG/ML 1 ML VIAL IVP PRN ×3 (12:37→22:56)
--- NOTE | 2018-11-23 12:47 | P.PN ---
Subjective 58-year-old the with EF of 35-40% is admitted for CHF exacerbation patient is wheezing today patient will be started on oral prednisone. Patient is comparing of severe neck and back pain from his degenerative disc disease will start on Toradol for GI prophylaxis monitor kidney function. His or pedal edema improved heart failure improved. Patient the creatinine started going up patient was switched to oral Lasix Aldactone was added by cardiology along with lisinopril. Objective - Vital Signs Vital signs: Vital Signs Temp 98.1 F 11/23/18 08:51 Pulse 73 11/23/18 08:51 Resp 17 11/23/18 08:51 BP 91/51 11/23/18 08:51 Pulse Ox 97 11/23/18 08:51 Intake & Output 11/22/18 11/23/18 11/23/18 18:59 06:59 18:59 Intake Total 430 820 240 Output Total 800 Balance -370 820 240 Weight 64.7 kg 64 kg Intake: IV 20 Invasive Line 1 20 Oral 430 800 240 Output: Urine 800 Other: Voiding Method Toilet Toilet # Voids 1 - Exam PHYSICAL EXAMINATION: GENERAL: The patient is alert and oriented x3, not in any acute distress. Well developed, well nourished. HEENT: Pupils are round and equally reacting to light. EOMI. No scleral icterus. No conjunctival pallor. Normocephalic, atraumatic. No pharyngeal erythema. No thyromegaly. CARDIOVASCULAR: S1 and S2 present. No murmurs, rubs, or gallops. PULMONARY: Expiratory wheezing on exam ABDOMEN: Soft, nontender, nondistended, normoactive bowel sounds. No palpable organomegaly. MUSCULOSKELETAL: No joint swelling or deformity. EXTREMITIES: No cyanosis, clubbing, or pedal edema. NEUROLOGICAL: Gross neurological examination did not reveal any focal deficits. SKIN: No rashes. - Labs CBC & Chem 7: 11/23/18 03:52 11/23/18 03:52 Labs: Abnormal Lab Results - Last 24 Hours (Table) 11/22/18 11/22/18 11/23/18 Range/Units 16:41 20:35 03:52 WBC (3.8-10.6) k/uL Neutrophils # (1.3-7.7) k/uL Sodium 133 L (137-145) mmol/L BUN 36 H (9-20) mg/dL Glucose 100 H (74-99) mg/dL POC Glucose (mg/dL) 280 H 263 H (75-99) mg/dL 11/23/18 11/23/18 11/23/18 Range/Units 03:52 06:01 12:02 WBC 12.4 H (3.8-10.6) k/uL Neutrophils # 9.3 H (1.3-7.7) k/uL Sodium (137-145) mmol/L BUN (9-20) mg/dL Glucose (74-99) mg/dL POC Glucose (mg/dL) 125 H 106 H (75-99) mg/dL Assessment and Plan Plan: -Congestive heart failure chronic systolic dysfunction with acute exacerbation: Patient will be continued on oral Lasix. CATHIE inhibitor. Monitor basic metabolic profile. -Ischemic cardiomyopathy -COPD with mildly exacerbation, patient was started on oral steroids and continue with inhalational treatments -Type 2 diabetes mellitus patient to insulin regimen will be resumed and the patient will also be initiated on sliding scale insulin depending on the results of studies urine blood sugars his insulin regimen will be titrated -Coronary artery disease -Hypertension -Hyponatremia secondary to diuretic therapy which is being switched to oral Lasix, creatinine is expected to improve with this change. -Back pain: Nonsteroidal anti-inflammatories and GI prophylaxis as mentioned above Patient will need pharmacologic DVT prophylaxis
--- NOTE | 2018-11-23 15:22 | ECHOF ---
Referral Reason:chf MEASUREMENTS -------- HEIGHT: 175.3 cm WEIGHT: 64.0 kg BP: 130/81 RVIDd: 2.8 cm (< 3.3) IVSd: 1.4 cm (0.6 - 1.1) LVIDd: 5.3 cm (3.9 - 5.3) LVPWd: 1.2 cm (0.6 - 1.1) IVSs: 1.2 cm LVIDs: 4.4 cm LVPWs: 1.6 cm LA Diam: 3.4 cm (2.7 - 3.8) LAESV Index (A-L): 32.71 ml/m Ao Diam: 2.8 cm (2.0 - 3.7) AV Cusp: 1.5 cm (1.5 - 2.6) MV EXCURSION: 18.221 mm (> 18.000) MV EF SLOPE: 87 mm/s (70 - 150) EPSS: 1.5 cm MV E [place]: 0.91 m/s MV DecT: 234 ms MV A [place]: 0.46 m/s MV E/A Ratio: 1.96 FINDINGS -------- Sinus rhythm. This was a technically adequate study. The left ventricular size is normal. There is moderate concentric left ventricular hypertrophy. O verall left ventricular systolic function is severely impaired with, an EF between 25 - 30 %. The right ventricle is normal in size. LA is midly dilated 29-33ml/m2. The right atrium is normal in size. Interatrial and interventricular septum intact. Aortic valve is trileaflet and is mildly thickened. The mitral valve is normal. The tricuspid valve appears structurally normal. Trace/mild (physiologic) pulmonic regurgitation. The aortic root size is normal. There is no pericardial effusion. CONCLUSIONS -------- 1. Sinus rhythm. 2. This was a technically adequate study. 3. The left ventricular size is normal. 4. There is moderate concentric left ventricular hypertrophy. 5. Overall left ventricular systolic function is severely impaired with, an EF between 25 - 30 %. 6. The right ventricle is normal in size. 7. LA is midly dilated 29-33ml/m2. 8. The right atrium is normal in size. 9. Interatrial and interventricular septum intact. 10. Aortic valve is trileaflet and is mildly thickened. 11. The mitral valve is normal. 12. The tricuspid valve appears structurally normal. 13. Trace/mild (physiologic) pulmonic regurgitation. 14. The aortic root size is normal. 15. There is no pericardial effusion. SALES OFFICER: Abigail Jackson RDCS
[2018-11-23] MEDS ORDERED: FUROSEMIDE 20 MG TAB PO SCH (16:00)
[2018-11-23 16:42] LABS: Glucose,Whole Blood 83 mg/dL (75-99)
[2018-11-23] MEDS: FUROSEMIDE 40 MG TAB PO SCH (17:06)
[2018-11-23 19:17] VITALS: RESP 18
[2018-11-23 20:17] LABS: Glucose,Whole Blood 518 mg/dL (75-99)
[2018-11-23 20:21] LABS: Glucose,Whole Blood 468 mg/dL (75-99)
[2018-11-23] MEDS: FAMOTIDINE 20 MG TAB PO SCH (20:29)
[2018-11-23] MEDS ORDERED: FUROSEMIDE 10 MG/ML 4 ML VIAL IV SCH (21:00)
[2018-11-24 02:23] LABS: Glucose,Whole Blood 241 mg/dL (75-99)
[2018-11-24] MEDS: KETOROLAC 30 MG/ML 1 ML VIAL IVP PRN (05:55)
[2018-11-24 06:38] LABS: Glucose,Whole Blood 230 mg/dL (75-99)
[2018-11-24] MEDS: SYMBICORT 160-4.5 MCG INHALER INHALATION SCH (07:52)
[2018-11-24] MEDS: predniSONE 10 MG TAB PO SCH (07:56)
[2018-11-24] MEDS: INSULIN ASPART (NovoLOG) 100 UNIT/ML VIAL SQ SCH ×2 (07:57→11:52)
[2018-11-24] MEDS: FAMOTIDINE 20 MG TAB PO SCH (07:57)
[2018-11-24] MEDS: GABAPENTIN 300 MG CAP PO SCH (07:57)
[2018-11-24] MEDS: HEPARIN SODIUM,PORCINE 5,000 UNIT/ML 1 ML VIAL SQ SCH (07:57)
[2018-11-24] MEDS: FUROSEMIDE 40 MG TAB PO SCH (07:57)
[2018-11-24] MEDS: CARVEDILOL 12.5 MG TAB PO SCH (07:57)
[2018-11-24] MEDS: NITROGLYCERIN OINT 1 INCH/GM PACKET TOPICAL SCH ×2 (07:57→11:52)
--- NOTE | 2018-11-24 08:25 | P.PN ---
Subjective Progress Note Date: 11/24/18 Principal diagnosis: Congestive heart failure secondary to systolic dysfunction This is a pleasant 58-year-old gentleman with history of coronary artery disease and prior stenting of the RCA was performed at [facility] in 2011 with the last heart catheterization was performed in 2015 here showing intermediate coronary artery disease involving the RCA and mild coronary artery disease involving the left coronary system, ischemic cardiomyopathy with known EF between 35-40% based on echocardiogram was performed in September 2018, diabetes, hypertension, and significant history of smoking, presented to the hospital complaining of shortness of breath. The patient stated that he was in his usual state of health until this past Friday when he started experiencing progressive exertional dyspnea associated with bilateral lower extremities edema. He did not have any orthopnea or PND. No symptoms of chest pain or chest discomfort. No feeling of heart racing or fluttering. And no syncope. Because of that he decided to come to the emergency room. The EKG showed sinus rhythm. The chest x-ray showed findings consistent with CHF. The BNP came in elevated at 5000. On physical examination he does have expiratory wheezing. No edema noted but the patient stated that he did have edema in the lower extremities yesterday when he presented to the emergency room. Currently the patient is on Lasix IV. He is in process of having an echocardiogram was Doppler. As a mentioned earlier the last echo from September 2018 revealed an EF between 35-40%. On follow-up with the patient today, 11/24/2018, the patient is feeling better internal shortness of breath. Lower extremities edema has improved as well. He is experiencing pain in the lower back mainly. He is on maximize medical treatment for the cardiomyopathy. From the cardiac standpoint of view, the patient can be discharged. Objective - Vital Signs Vital signs: Vital Signs Temp 98.3 F 11/24/18 07:05 Pulse 77 11/24/18 08:00 Resp 18 11/24/18 08:00 BP 128/82 11/24/18 07:05 Pulse Ox 100 11/24/18 07:05 Intake & Output 11/23/18 11/24/18 11/24/18 18:59 06:59 18:59 Intake Total 480 340 Balance 480 340 Weight 64.1 kg Intake: Oral 480 240 Other 100 Other: Voiding Method Toilet Toilet Toilet # Voids 1 2 - Constitutional General appearance: Present: no acute distress - Respiratory Respiratory: bilateral: CTA - Cardiovascular Rhythm: regular Heart sounds: normal: S1, S2 - Labs CBC & Chem 7: 11/23/18 03:52 11/23/18 03:52 Labs: Abnormal Lab Results - Last 24 Hours (Table) 11/23/18 11/23/18 11/23/18 Range/Units 12:02 20:16 20:20 POC Glucose (mg/dL) 106 H 518 H 468 H (75-99) mg/dL 11/24/18 11/24/18 Range/Units 02:10 06:35 POC Glucose (mg/dL) 241 H 230 H (75-99) mg/dL Assessment and Plan Assessment: Assessment #1 congestive heart failure exacerbation secondary to systolic dysfunction, acute on chronic #2 cardiomyopathy was EF between 35-40% based on recent echo #3 coronary artery disease as described above with prior revascularization #4 significant history of smoking #5 multiple comorbid conditions including diabetes, hypertension, and dyslipidemia Plan #1 continue the current medical regimen #2 the patient can be discharged home
[2018-11-24 08:35] LABS: Calcium 8.9 mg/dL (8.4-10.2); Potassium 4.6 mmol/L (3.5-5.1)
--- NOTE | 2018-11-24 08:42 | XR ---
EXAMINATION TYPE: XR chest 1V DATE OF EXAM: 11/24/2018 COMPARISON: 11/22/2018 HISTORY: Congestive heart failure and shortness of breath TECHNIQUE: Single frontal view of the chest is obtained. FINDINGS: There is a focal left basilar opacity remaining with overall improved aeration of the lung s. Underlying emphysema is seen with hilar prominence that could relate to pulmonary arterial hyperte nsion. Cardiomediastinal silhouette is upper limits of normal. Mild osseous demineralization is seen throughout. IMPRESSION: Residual left basilar opacity with overall improved aeration of the lungs. Opacity could represent atelectasis, residual pneumonia or confluent pulmonary edema. Underlying emphysema is pres ent.
[2018-11-24] MEDS ORDERED: SPIRONOLACTONE 25 MG TAB PO SCH (09:00)
[2018-11-24] MEDS ORDERED: LISINOPRIL 2.5 MG TAB PO SCH (09:00)
[2018-11-24 11:13] VITALS: BP 121/76; PULSE 78; TEMP 97.3
[2018-11-24 11:37] LABS: Glucose,Whole Blood 211 mg/dL (75-99)
--- NOTE | 2018-11-24 21:44 | DS ---
DISCHARGE SUMMARY CHIEF COMPLAINT: Shortness of breath. HISTORY OF PRESENT ILLNESS AND PHYSICAL EXAMINATION: Details of this man's history and physical can be found in the initial workup. LABORATORY STUDIES: While he was in the hospital he had laboratory studies, details of which can be found in the laboratory section of his chart. COURSE IN THE HOSPITAL: After admission he was placed on bedrest, started on intravenous fluids and started on diuretics. He was complaining of a lot of his usual arthritic pain on the morning of November 24. Later in the afternoon he had left the hospital. It is not clear if he was discharged or left AMA. FINAL DIAGNOSES: 1. Congestive heart failure. 2. Coronary artery disease. 3. Chronic obstructive pulmonary disease. 4. Osteoarthritis of the lumbosacral spine. OPERATIONS: None. CONSULTATIONS: Cardiology. He is improved. MMODL / IJN: [id number] /
== END 2018-11-24 12:51 | disposition left against medical advice (07) ==
LOC: EC 06:03 → 3SCARD 08:32 → 1SOBS 11-23 15:12
PROVIDERS: ADMIT Family Medicine; ATTEND Family Medicine
DX: I11.0 Hypertensive heart disease with heart failure (principal); I50.23 Acute on chronic systolic (congestive) heart failure; E11.9 Type 2 diabetes mellitus without complications; E78.5 Hyperlipidemia, unspecified; F31.9 Bipolar disorder, unspecified; F41.9 Anxiety disorder, unspecified; G89.29 Other chronic pain; I25.10 Atherosclerotic heart disease of native coronary artery without angina pectoris; I25.5 Ischemic cardiomyopathy; J44.9 Chronic obstructive pulmonary disease, unspecified; Z95.5 Presence of coronary angioplasty implant and graft; M47.817 Spondylosis without myelopathy or radiculopathy, lumbosacral region; F17.200 Nicotine dependence, unspecified, uncomplicated; Z79.02 Long term (current) use of antithrombotics/antiplatelets; Z79.4 Long term (current) use of insulin; Z79.899 Other long term (current) drug therapy; Z80.3 Family history of malignant neoplasm of breast; Z82.49 Family history of ischemic heart disease and other diseases of the circulatory system; Z83.3 Family history of diabetes mellitus; Z90.49 Acquired absence of other specified parts of digestive tract; Z71.6 Tobacco abuse counseling
CPT/HCPCS: 96372 ×3; 96375; 96376 ×3; 96374; 99285; 36415; 94640 ×4; 93005; 93306; 85379; 83880; 80053; 80048 ×2; 84484; 85025 ×2; 85610; 85730; 71045; 71046; G0378 ×4; J1644 ×3; J1940 ×2; J1885 ×2; J7512 ×2

== ENCOUNTER 2018-11-26 10:34 | Inpatient (IN) | payer OTHER ==
[2018-11-26] MEDS ORDERED: methylPREDNISolone SOD SUCCI 125 MG/2 ML VIAL IV STA (10:38)
[2018-11-26] MEDS ORDERED: IPRATROPIUM-ALBUTEROL 3 ML NEB INHALATION STA (10:38)
--- NOTE | 2018-11-26 10:42 | ED ---
SOB HPI - General Stated Complaint: STANLEY Time Seen by Provider: 11/26/18 10:34 Source: EMS, RN notes reviewed, old records reviewed Mode of arrival: EMS - History of Present Illness Initial Comments: This is a 58-year-old male with a history of COPD and CHF who was just discharged from the hospital 2 days ago after being admitted previously for shortness of breath and apparently CHF he does state he had fluid on his lungs who presents with complaints of the onset this morning of shortness of breath re fractory to his home inhalers. He states this started several hours ago very severe he was brought in by EMS he was found have 80% pulse ox on room air he was given a partial DuoNeb treatment in route but apparently spell that he did not get complete treatment he is feeling somewhat better after the albuterol that was started. No fevers chills nausea vomiting sweats he is a nonproductive cough no overt chest pain no peripheral edema no other modifying factors at this time MD Complaint: shortness of breath - Related Data Home Medications Medication Instructions Recorded Confirmed Albuterol Inhaler [Ventolin Hfa 2 puff INHALATION RT-Q6H PRN 02/13/16 11/26/18 Inhaler] Clopidogrel Bisulfate [Clopidogrel] 75 mg PO DAILY 02/13/16 11/26/18 Atenolol 100 mg PO BID 11/22/18 11/26/18 Fluticasone/Salmeterol 1 puff INHALATION RT-DAILY 11/22/18 11/26/18 [Fluticasone-Salmeterol 113-14] INSULIN ASPART (NovoLOG) [NovoLOG See Protocol SQ ACHS 11/22/18 11/26/18 (formulary)] Insulin Glargine,Hum.rec.anlog 70 units SQ HS 11/22/18 11/26/18 [Basaglar Kwikpen U-100] Nitroglycerin Sl Tabs [Nitrostat] 0.4 mg SL Q5M 11/22/18 11/26/18 Previous Rx's Medication Instructions Recorded Carvedilol [Coreg*] 25 mg PO BID-W/MEALS #180 tab 10/01/18 Allergies Allergy/AdvReac Type Severity Reaction Status Date / Time Penicillins Allergy Unknown Verified 11/26/18 10:52 Childhood Review of Systems ROS Statement: Those systems with pertinent positive or pertinent negative responses have been documented in the HPI. ROS Other: All systems not noted in ROS Statement are negative. Past Medical History Past Medical History: Coronary Artery Disease (CAD), Diabetes Mellitus, Hyperlipidemia, Hypertension Additional Past Medical History / Comment(s): chronic back pain History of Any Multi-Drug Resistant Organisms: None Reported Past Surgical History: Cholecystectomy, Heart Catheterization With Stent Date of Last Stent Placement:: 2011 Past Psychological History: Anxiety, Bipolar, Depression Smoking Status: Current every day smoker Past Alcohol Use History: Rare Past Drug Use History: Heroin, Marijuana, Methamphetamine - Past Family History Mother Family Medical History: Cancer Additional Family Medical History / Comment(s): breast ca Father Family Medical History: Coronary Artery Disease (CAD), Diabetes Mellitus, Hypertension Additional Family Medical History / Comment(s): CABG at age 57 General Exam - General Exam Comments Initial Comments: Is a well-developed well-nourished awake alert oriented 3 male General appearance: alert, anxious, in distress Head exam: Present: atraumatic, normocephalic, normal inspection Eye exam: Present: normal appearance, PERRL, EOMI. Absent: scleral icterus, conjunctival injection, periorbital swelling ENT exam: Present: normal exam, mucous membranes moist Neck exam: Present: normal inspection, full ROM, other (No stridor JVD or bruits). Absent: tenderness, meningismus, lymphadenopathy Respiratory exam: Present: wheezes, decreased breath sounds. Absent: respiratory distress, rales, rhonchi, stridor Cardiovascular Exam: Present: regular rate, normal rhythm, normal heart sounds. Absent: systolic murmur, diastolic murmur, rubs, gallop, clicks GI/Abdominal exam: Present: soft, normal bowel sounds. Absent: distended, tenderness, guarding, rebound, rigid Extremities exam: Present: normal inspection, full ROM, normal capillary refill. Absent: tenderness, pedal edema, joint swelling, calf tenderness Back exam: Present: normal inspection Neurological exam: Present: alert, oriented X3, CN II-XII intact Psychiatric exam: Present: normal affect, normal mood Skin exam: Present: warm, dry, intact, normal color. Absent: rash Course Vital Signs 11/26/18 11/26/18 11/26/18 10:44 10:59 11:07 Temperature 97.8 F Pulse Rate 84 84 84 Respiratory 18 Rate Blood Pressure O2 Sat by Pulse 98 Oximetry 11/26/18 11/26/18 11:39 12:30 Temperature Pulse Rate 88 Respiratory 24 18 Rate Blood Pressure 142/79 O2 Sat by Pulse 97 Oximetry - Reevaluation(s) Reevaluation #1: 11/26/18 13:50 Reevaluation patient revealed some improvement with the patient still short of breath. Medical Decision Making - Medical Decision Making Reevaluation patient finds he still somewhat short of breath he does admit to having chest pain which she did not inform us of earlier. I did discuss the case with Dr. Chicas the patient will be admitted for evaluation of elevated troponin COPD exacerbation. - Lab Data Result diagrams: 11/26/18 11:30 11/26/18 11:30 Lab Results 11/26/18 11/26/18 11/26/18 Range/Units 11:30 11:30 11:30 WBC 8.5 (3.8-10.6) k/uL RBC 4.53 (4.30-5.90) m/uL Hgb 13.8 (13.0-17.5) gm/dL Hct 42.0 (39.0-53.0) % MCV 92.7 (80.0-100.0) fL MCH 30.5 (25.0-35.0) pg MCHC 32.9 (31.0-37.0) g/dL RDW 13.6 (11.5-15.5) % Plt Count 151 (150-450) k/uL Neutrophils % 64 % Lymphocytes % 27 % Monocytes % 7 % Eosinophils % 1 % Basophils % 0 % Neutrophils # 5.4 (1.3-7.7) k/uL Lymphocytes # 2.3 (1.0-4.8) k/uL Monocytes # 0.6 (0-1.0) k/uL Eosinophils # 0.1 (0-0.7) k/uL Basophils # 0.0 (0-0.2) k/uL PT 11.0 (9.0-12.0) sec INR 1.0 (<1.2) APTT 26.5 (22.0-30.0) sec D-Dimer 0.37 (<0.60) mg/L FEU Sodium 135 L (137-145) mmol/L Potassium 4.9 (3.5-5.1) mmol/L Chloride 105 (98-107) mmol/L Carbon Dioxide 25 (22-30) mmol/L Anion Gap 5 mmol/L BUN 28 H (9-20) mg/dL Creatinine 0.85 (0.66-1.25) mg/dL Est GFR (CKD-EPI)AfAm >90 (>60 ml/min/1.73 sqM) Est GFR (CKD-EPI)NonAf >90 (>60 ml/min/1.73 sqM) Glucose 243 H (74-99) mg/dL Calcium 8.6 (8.4-10.2) mg/dL Magnesium 2.1 (1.6-2.3) mg/dL Total Bilirubin 0.9 (0.2-1.3) mg/dL AST 71 H (17-59) U/L ALT 69 (21-72) U/L Alkaline Phosphatase 57 (38-126) U/L Troponin I (0.000-0.034) ng/mL NT-Pro-B Natriuret Pep pg/mL Total Protein 6.3 (6.3-8.2) g/dL Albumin 3.5 (3.5-5.0) g/dL 11/26/18 11/26/18 Range/Units 11:30 11:30 WBC (3.8-10.6) k/uL RBC (4.30-5.90) m/uL Hgb (13.0-17.5) gm/dL Hct (39.0-53.0) % MCV (80.0-100.0) fL MCH (25.0-35.0) pg MCHC (31.0-37.0) g/dL RDW (11.5-15.5) % Plt Count (150-450) k/uL Neutrophils % % Lymphocytes % % Monocytes % % Eosinophils % % Basophils % % Neutrophils # (1.3-7.7) k/uL Lymphocytes # (1.0-4.8) k/uL Monocytes # (0-1.0) k/uL Eosinophils # (0-0.7) k/uL Basophils # (0-0.2) k/uL PT (9.0-12.0) sec INR (<1.2) APTT (22.0-30.0) sec D-Dimer (<0.60) mg/L FEU Sodium (137-145) mmol/L Potassium (3.5-5.1) mmol/L Chloride (98-107) mmol/L Carbon Dioxide (22-30) mmol/L Anion Gap mmol/L BUN (9-20) mg/dL Creatinine (0.66-1.25) mg/dL Est GFR (CKD-EPI)AfAm (>60 ml/min/1.73 sqM) Est GFR (CKD-EPI)NonAf (>60 ml/min/1.73 sqM) Glucose (74-99) mg/dL Calcium (8.4-10.2) mg/dL Magnesium (1.6-2.3) mg/dL Total Bilirubin (0.2-1.3) mg/dL AST (17-59) U/L ALT (21-72) U/L Alkaline Phosphatase (38-126) U/L Troponin I 0.058 H* (0.000-0.034) ng/mL NT-Pro-B Natriuret Pep 3510 pg/mL Total Protein (6.3-8.2) g/dL Albumin (3.5-5.0) g/dL - EKG Data -: EKG Interpreted by Hi EKG shows normal: sinus rhythm (EKG shows sinus rhythm with frequent PVCs rate was 89. Interval 154 QRS 80 QT since QTC 392/476 prolonged QT nonspecific T- wave configuration this is compared with an EKG dated 11/22/18 is also does correlate with the one supplied by EMS.) - Radiology Data Radiology results: report reviewed (Imaging shows a posterior infiltrate the previous infiltrate has cleared up.), image reviewed Critical Care Time Critical Care Time: Yes Critical Care Time: 31 minutes of critical care time which includes initial presentation with h istory physical labs x-rays multiple reevaluation patient responsive therapy discuss with the patient regarding findings discussion with the admitting physician review of old charting that was available documentation of the above and admission orders. Disposition Clinical Impression: Acute exacerbation of chronic obstructive airways disease, Adult respiratory distress syndrome, Elevated troponin I level Disposition: ADMITTED IP TO THIS HOSP Condition: Fair Referrals: Tristan Chicas MD [Primary Care Provider] - 1-2 days
[2018-11-26 11:45] LABS: Basophils % (A) 0 %; Eosinophils # (A) 0.1 k/uL (0-0.7); Eosinophils % (A) 1 %; HGB 13.8 gm/dL (13.0-17.5); Lymphocytes # (A) 2.3 k/uL (1.0-4.8); Lymphocytes % (A) 27 %; MCH 30.5 pg (25.0-35.0); MCHC 32.9 g/dL (31.0-37.0); MCV 92.7 fL (80.0-100.0); Mean Platelet Volume 9.1; Monocytes # (A) 0.6 k/uL (0-1.0); Monocytes % (A) 7 %; Neutrophils # (A) 5.4 k/uL (1.3-7.7); Neutrophils % (A) 64 %; Platelet Count 151 k/uL (150-450); RBC 4.53 m/uL (4.30-5.90); RDW 13.6 % (11.5-15.5); WBC 8.5 k/uL (3.8-10.6)
[2018-11-26 12:05] LABS: D-Dimer 0.37 mg/L FEU (<0.60); Partial Thromboplastin Time 26.5 sec (22.0-30.0)
[2018-11-26 12:13] LABS: ALT 69 U/L (21-72); AST 71 U/L (17-59); Albumin 3.5 g/dL (3.5-5.0); Alkaline Phosphatase 57 U/L (38-126); Anion Gap 5 mmol/L; Blood Urea Nitrogen 28 mg/dL (9-20); Calcium 8.6 mg/dL (8.4-10.2); Carbon Dioxide 25 mmol/L (22-30); Chloride 105 mmol/L (98-107); Glucose 243 mg/dL (74-99); Magnesium 2.1 mg/dL (1.6-2.3); Potassium 4.9 mmol/L (3.5-5.1); Sodium 135 mmol/L (137-145); Total Bilirubin 0.9 mg/dL (0.2-1.3); Total Protein 6.3 g/dL (6.3-8.2)
[2018-11-26] MEDS ORDERED: KETOROLAC 30 MG/ML 1 ML VIAL IVP STA (12:15)
--- NOTE | 2018-11-26 12:43 | XR ---
EXAMINATION TYPE: XR chest 2V DATE OF EXAM: 11/26/2018 COMPARISON: 11/24/2018 INDICATION: Difficulty breathing TECHNIQUE: Frontal and lateral views of the chest are obtained. FINDINGS: The heart size is normal. The pulmonary vasculature is normal. There is a posterior infiltrate. Lungs otherwise appear clear. IMPRESSION: 1. Small posterior infiltrate. 2. Previous left basilar infiltrate has resolved.
[2018-11-26] MEDS ORDERED: NITROGLYCERIN SL TABS 0.4 MG TAB SUBLINGUAL PRN (14:00)
[2018-11-26] MEDS: SODIUM CHLORIDE 0.9% 1,000 ML IV SCH (16:26)
[2018-11-26] MEDS: IPRATROPIUM-ALBUTEROL 3 ML NEB INHALATION SCH ×3 (16:48→23:44)
[2018-11-26 17:25] LABS: Glucose,Whole Blood 398 mg/dL (75-99)
[2018-11-26] MEDS ORDERED: CARVEDILOL 12.5 MG TAB PO SCH (17:30)
[2018-11-26 18:03] VITALS: BMI 24.3
[2018-11-26] MEDS: methylPREDNISolone SOD SUCCI 125 MG/2 ML VIAL IV SCH (18:08)
[2018-11-26] MEDS: INSULIN ASPART (NovoLOG) 100 UNIT/ML VIAL SQ SCH ×2 (18:09→21:12)
[2018-11-26] MEDS: HYDROcodone/APAP 5-325MG 1 EACH TAB PO PRN (18:27)
[2018-11-26] MEDS: SYMBICORT 80-4.5 MCG INHALER INHALATION SCH (20:19)
[2018-11-26 21:02] LABS: Glucose,Whole Blood 305 mg/dL (75-99)
[2018-11-26] MEDS: ATENOLOL 50 MG TAB PO SCH (21:07)
[2018-11-26] MEDS: INSULIN DETEMIR (LEVEMIR) 100 UNIT/ML SYR SQ SCH (21:11)
[2018-11-27] MEDS: methylPREDNISolone SOD SUCCI 125 MG/2 ML VIAL IV SCH ×3 (01:57→12:52)
[2018-11-27] MEDS: IPRATROPIUM-ALBUTEROL 3 ML NEB INHALATION SCH ×6 (03:48→23:20)
[2018-11-27 06:15] LABS: Glucose,Whole Blood 71 mg/dL (75-99)
[2018-11-27 06:15] LABS: Glucose,Whole Blood 67 mg/dL (75-99)
[2018-11-27] MEDS: INSULIN ASPART (NovoLOG) 100 UNIT/ML VIAL SQ SCH ×5 (06:38→21:19)
[2018-11-27] MEDS: HYDROcodone/APAP 5-325MG 1 EACH TAB PO PRN ×2 (06:53→18:12)
[2018-11-27] MEDS: SYMBICORT 80-4.5 MCG INHALER INHALATION SCH ×2 (08:36→20:09)
--- NOTE | 2018-11-27 10:13 | P.CRDCN ---
History of Present Illness Consult date: 11/27/18 Requesting physician: Tristan Chicas Consult reason: shortness of breath Chief complaint: Shortness of breath History of present illness: This is a 58-year-old gentleman who was just recently here in the hospital with congestive cardiac failure, presented back to the hospital with symptoms of shortness of breath. He is on 58-year-old gentleman with a known history of coronary artery disease and prior stenting of the RCA and Elijah's in 2011, his last heart catheterization was performed in 2015 here showing intermediate coronary artery disease involving the RCA and mild coronary artery disease involving the left coronary system, ischemic cardiomyopathy with known EF of 35% based on echo performed in 2019, diabetes, hypertension, COPD, significant history of smoking. He again breathe presented to the hospital with symptoms of shortness of breath. According to the patient he states that at one point he could hardly breathe at all. Patient states that he was discharged home without any Lasix. His blood pressure on arrival here was 142/70 with a heart rate in the 80s, 97% on 2 L of oxygen. White blood cell count 8.5, hemoglobin 13.8, platelet count 151. D-dimer 0.3. Sodium 135, potassium 4.9, BUN 28 and creatinine 0.8. BNP level 3510. On this most recent admission his BNP was 4250. Troponin 0.058, 0.056. Chest x-ray performed this admission showed a small posterior infiltrate, previous left basilar infiltrate had resolved. EKG shows a normal sinus rhythm with frequent PVCs. Patient was initiated on steroids in the emergency room. He is currently on atenolol 100 mg by mouth twice a day, Plavix. We will start the patient on a statin as well as diuretics, discontinue the atenolol and start the patient on Coreg, Aldactone, we will also add an CATHIE inhibitor to his medication regime. Past Medical History Past Medical History: Coronary Artery Disease (CAD), Diabetes Mellitus, Hyperlipidemia, Hypertension Additional Past Medical History / Comment(s): chronic back pain History of Any Multi-Drug Resistant Organisms: None Reported Past Surgical History: Cholecystectomy, Heart Catheterization With Stent Date of Last Stent Placement:: 2011 Past Psychological History: Anxiety, Bipolar, Depression Smoking Status: Current every day smoker Past Alcohol Use History: Rare Past Drug Use History: Heroin, Marijuana, Methamphetamine - Past Family History Mother Family Medical History: Cancer Additional Family Medical History / Comment(s): breast ca Father Family Medical History: Coronary Artery Disease (CAD), Diabetes Mellitus, Hypertension Additional Family Medical History / Comment(s): CABG at age 57 Medications and Allergies Home Medications Medication Instructions Recorded Confirmed Type Albuterol Inhaler [Ventolin Hfa 2 puff INHALATION RT-Q6H PRN 02/13/16 11/26/18 History Inhaler] Clopidogrel Bisulfate [Clopidogrel] 75 mg PO DAILY 02/13/16 11/26/18 History Atenolol 100 mg PO BID 11/22/18 11/26/18 History Fluticasone/Salmeterol 1 puff INHALATION RT-DAILY 11/22/18 11/26/18 History [Fluticasone-Salmeterol 113-14] Insulin Glargine,Hum.rec.anlog 90 units SQ HS 11/22/18 11/26/18 History [Basaglar Kwikpen U-100] Nitroglycerin Sl Tabs [Nitrostat] 0.4 mg SL Q5M 11/22/18 11/26/18 History Benazepril HCl 40 mg PO DAILY 11/26/18 11/26/18 History Gabapentin [Neurontin] 800 mg PO TID PRN 11/26/18 11/26/18 History Hydrocodone/Acetaminophen [[place] 1 tab PO BID PRN 11/26/18 11/26/18 History 7.5-325] Ibuprofen [Motrin] 800 mg PO QID PRN 11/26/18 11/26/18 History Insulin Lispro [Admelog] 20 unit SQ AC-TID 11/26/18 11/26/18 History Ipratropium Nebulized [Atrovent 0.5 mg INHALATION RT-QID PRN 11/26/18 11/26/18 History Nebulized 0.2 MG/ML] busPIRone HCl [Buspar] 10 mg PO TID PRN 11/26/18 11/26/18 History Allergies Allergy/AdvReac Type Severity Reaction Status Date / Time Penicillins Allergy Unknown Verified 11/26/18 10:52 Childhood Physical Exam Vitals: Vital Signs Temp Pulse Pulse Resp BP BP Pulse Ox 11/27/18 08:50 98.6 F 74 17 152/85 98 11/27/18 08:45 86 11/27/18 08:36 84 11/27/18 03:25 65 18 141/80 96 11/27/18 00:00 66 18 141/87 95 11/26/18 20:31 90 11/26/18 20:19 86 97 11/26/18 20:00 65 18 141/80 96 11/26/18 17:25 98.3 F 88 20 167/95 99 11/26/18 17:00 98.3 F 87 20 156/94 96 11/26/18 16:00 90 22 151/93 98 11/26/18 14:45 97.9 F 80 18 140/87 95 11/26/18 14:41 92 L 11/26/18 12:30 88 18 142/79 97 11/26/18 11:39 24 11/26/18 11:07 84 11/26/18 10:59 84 11/26/18 10:44 97.8 F 84 18 98 Intake and Output 11/26/18 11/27/18 11/27/18 22:59 06:59 14:59 Intake Total 622 240 Balance 622 240 Intake: Oral 622 240 Other: Voiding Method Toilet Toilet # Voids 1 1 Weight 65.8 kg PHYSICAL EXAMINATION: GENERAL: 88-year-old gentleman in no acute distress at the time of my examination HEENT: Head is atraumatic, normocephalic. Pupils equal, round. Sclera anicteric. Conjunctiva are clear. Mucous membranes of the mouth are moist. Neck is supple. There is elevated jugular venous pressure. No carotid bruit is heard. HEART EXAMINATION: Heart S1, S2 normal. No murmur or gallop heard. CHEST EXAMINATION: Lungs reveal scattered coarse rhonchi and wheezingthroughout. ABDOMEN: Soft, nontender. Bowel sounds are heard. Liver is enlarged and palpable EXTREMITIES: 2+ peripheral pulses with no evidence of peripheral edema and no calf tenderness noted. NEUROLOGIC patient is awake, alert and oriented 3 . . Results 11/26/18 11:30 11/26/18 11:30 Cardiac Enzymes 11/26/18 11/26/18 11/26/18 Range/Units 11:30 11:30 14:44 AST 71 H (17-59) U/L Troponin I 0.058 H* 0.056 H* (0.000-0.034) ng/mL Coagulation 11/26/18 Range/Units 11:30 PT 11.0 (9.0-12.0) sec APTT 26.5 (22.0-30.0) sec CBC 11/26/18 Range/Units 11:30 WBC 8.5 (3.8-10.6) k/uL RBC 4.53 (4.30-5.90) m/uL Hgb 13.8 (13.0-17.5) gm/dL Hct 42.0 (39.0-53.0) % Plt Count 151 (150-450) k/uL Comprehensive Metabolic Panel 11/26/18 Range/Units 11:30 Sodium 135 L (137-145) mmol/L Potassium 4.9 (3.5-5.1) mmol/L Chloride 105 (98-107) mmol/L Carbon Dioxide 25 (22-30) mmol/L BUN 28 H (9-20) mg/dL Creatinine 0.85 (0.66-1.25) mg/dL Glucose 243 H (74-99) mg/dL Calcium 8.6 (8.4-10.2) mg/dL AST 71 H (17-59) U/L ALT 69 (21-72) U/L Alkaline Phosphatase 57 (38-126) U/L Total Protein 6.3 (6.3-8.2) g/dL Albumin 3.5 (3.5-5.0) g/dL Current Medications Generic Name Dose Route Start Last Admin Trade Name Freq PRN Reason Stop Dose Admin Hydrocodone Bitart/Acetaminophen 1 each 11/26/18 17:38 11/27/18 06:53 [place] 5-325 PO 1 each BID PRN Administration Pain Albuterol/Ipratropium 3 ml 11/26/18 16:00 11/27/18 08:36 Duoneb 0.5 Mg-3 Mg/3 Ml Soln INHALATION 3 ml RT-Q4H MIRLANDE Administration Atenolol 100 mg 11/26/18 21:00 11/26/18 21:07 Tenormin PO 100 mg BID MIRLANDE Administration Budesonide/Formoterol Fumarate 2 puff 11/26/18 20:00 11/27/18 08:36 Symbicort 80-4.5 Mcg Inhaler INHALATION 2 puff RT-BID MIRLANDE Administration Clopidogrel Bisulfate 75 mg 11/27/18 09:00 Plavix PO DAILY MIRLANDE Sodium Chloride 1,000 mls @ 20 mls/hr 11/26/18 14:00 11/26/18 16:26 Saline 0.9% IV 20 mls/hr .Q24H MIRLANDE Administration Insulin Aspart 0 unit 11/26/18 17:30 11/27/18 06:38 Novolog SQ Not Given ACHS MIRLANDE Protocol Insulin Detemir 70 unit 11/26/18 21:00 11/26/18 21:11 Levemir SQ 70 unit HS MIRLANDE Administration Methylprednisolone Sodium Succinate 60 mg 11/26/18 18:00 11/27/18 06:49 Solu-Medrol IV 60 mg Q6HR MIRLANDE Administration Nitroglycerin 0.4 mg 11/26/18 14:00 Nitrostat SUBLINGUAL Q5M PRN CHEST PAIN Intake and Output 11/26/18 11/27/18 11/27/18 22:59 06:59 14:59 Intake Total 622 240 Balance 622 240 Intake: Oral 622 240 Other: Voiding Method Toilet Toilet # Voids 1 1 Weight 65.8 kg 11/26/18 11:30 11/26/18 11:30 EKG Interpretations (text) EKG shows a normal sinus rhythm with frequent PVCs. Assessment and Plan Plan: Assessment and plan #1 symptoms of shortness of breath, likely common of systolic congestive heart failure and COPD #2 ischemic cardiomyopathy with documented ejection fraction of 35% by echo performed in September #3 coronary artery disease with prior stent placement #4 nicotine dependence #5 diabetes #6 hypertension #7 hyperlipidemia #8 COPD #9 noncompliance Plan We will discontinue the atenolol and start the patient on Coreg, we will add Lipitor to his medication regime as well as Lasix, lisinopril, and Aldactone. He has been initiated on steroids for possible COPD exacerbation. I also had a lengthy discussion with the patient regarding compliance with his medications and the importance of following regularly with the supervisor phosphoric acid. Further recommendations to follow. DNP note has been reviewed, I agree with a documented findings and plan of care. Patient was seen and examined.
[2018-11-27] MEDS ORDERED: LISINOPRIL 5 MG TAB PO SCH (10:15)
[2018-11-27] MEDS: CLOPIDOGREL 75 MG TAB PO SCH (10:20)
[2018-11-27] MEDS: SPIRONOLACTONE 25 MG TAB PO SCH (10:21)
[2018-11-27] MEDS: ATENOLOL 50 MG TAB PO SCH (10:36)
[2018-11-27] MEDS ORDERED: LISINOPRIL 5 MG TAB PO STA (11:07)
[2018-11-27] MEDS: FUROSEMIDE 10 MG/ML 4 ML VIAL IV SCH ×2 (11:20→21:19)
[2018-11-27] MEDS ORDERED: IBUPROFEN 800 MG TAB PO PRN (11:22)
[2018-11-27 11:37] LABS: Glucose,Whole Blood 317 mg/dL (75-99)
[2018-11-27] MEDS ORDERED: INSULIN LISPRO (For Pump) 100 UNIT/ML VIAL SQ-PUMP SCH (12:30)
[2018-11-27] MEDS ORDERED: FUROSEMIDE 40 MG TAB PO SCH (16:00)
[2018-11-27 16:47] LABS: Glucose,Whole Blood 450 mg/dL (75-99)
[2018-11-27 16:47] LABS: Glucose,Whole Blood 381 mg/dL (75-99)
[2018-11-27] MEDS: CARVEDILOL 12.5 MG TAB PO SCH (17:25)
[2018-11-27] MEDS: SODIUM CHLORIDE 0.9% 1,000 ML IV SCH (17:33)
[2018-11-27] MEDS: GABAPENTIN 400 MG CAP PO PRN (18:15)
[2018-11-27 19:38] VITALS: RESP 18
--- NOTE | 2018-11-27 20:15 | HP ---
HISTORY AND PHYSICAL CHIEF COMPLAINT: Shortness of breath and chest pain. HISTORY OF PRESENT ILLNESS: This is another recent admission for this 58-year-old white male with a history of alcoholism, COPD and heart disease. He presented to the emergency room with difficulty breathing and some chest discomfort. Troponin was also elevated. It is difficult to make determination as to whether not this was COPD or heart failure. REVIEW OF SYSTEMS: He has had no syncope, diaphoresis, cough, hemoptysis, orthopnea, PND, abdominal pain, nausea, vomiting, hematemesis, melena, hematochezia, jaundice, hepatitis, renal failure, dysuria, hematuria, frequency, urgency, etc. He is diabetic. Past medical history, family history personal and social histories are all otherwise unremarkable and noncontributory. ALLERGIES: HE IS ALLERGIC TO PENICILLIN. MEDICATIONS: He is on updrafts with DuoNeb, benazepril 40 mg once a day, nitroglycerin sublingually, 20 mg t.i.d., BuSpar 10 mg t.i.d. p.r.n., Vicodin 7.5 twice a day p.r.n., 90 units once a day, gabapentin 800 mg t.i.d., atenolol 100 mg twice a day. The remainder of his history is unremarkable and unchanged from his recent admitting and discharge summaries. He continues to smoke. PHYSICAL EXAM: Blood pressure 130/80, pulse 52, respirations 16. He is afebrile. In general, he appeared to be dehydrated, poorly nourished and older than his stated age. HEENT: Head, ears, eyes, nose, mouth, and throat were normal. Chest demonstrated poor breath sounds due to emphysema. Cardiac exam demonstrated sinus rhythm with no murmurs or extra sounds. Abdomen is flat, soft. Extremities are normal except for poor muscle bulk. He was admitted to the hospital with diagnoses: 1. Exacerbation of chronic obstructive pulmonary disease. 2. Chest pain. 3. History of coronary artery disease. 4. Uncontrolled insulin dependent diabetes mellitus. 5. Narcotic analgesia abuse. PLAN: 1. Bed rest. 2. IV fluids. 3. Serial EKGs and enzymes. 4. Cardiology consult. 5. Management of his COPD. MMODL / IJN: [id number] /
--- NOTE | 2018-11-27 20:18 | PN ---
PROGRESS NOTE CHIEF COMPLAINT: Shortness of breath and chest pain. HISTORY OF PRESENT ILLNESS: This gentleman is about the same. Breathing is improved slightly. He is asking more and more for increased amount of narcotics, which has been discussed with him over the last several months, and he has been referred to Pain Management but has not gotten in yet. PHYSICAL EXAMINATION: Chest is fairly clear but breath sounds are poor due to the emphysema. Cardiac exam is normal. Abdomen is soft, nontender. IMPRESSION: 1. Exacerbation of chronic obstructive pulmonary disease. 2. Chest pain. 3. Elevated troponin. 4. Uncontrolled diabetes. PLAN: 1. Await cardiology evaluation. 2. Continue pulmonary program. 3. Stop steroids because his sugars are elevated. MMODL / IJN: [id number] /
[2018-11-27 21:08] LABS: Glucose,Whole Blood 228 mg/dL (75-99)
[2018-11-27] MEDS: INSULIN DETEMIR (LEVEMIR) 100 UNIT/ML SYR SQ SCH (21:19)
[2018-11-28] MEDS: GABAPENTIN 400 MG CAP PO PRN (02:10)
[2018-11-28] MEDS: IPRATROPIUM-ALBUTEROL 3 ML NEB INHALATION SCH ×2 (03:36→09:32)
[2018-11-28 05:17] VITALS: BP 129/63; PULSE 70; TEMP 98.3
[2018-11-28] MEDS: HYDROcodone/APAP 5-325MG 1 EACH TAB PO PRN (06:20)
[2018-11-28 06:56] LABS: Glucose,Whole Blood 54 mg/dL (75-99)
[2018-11-28 07:17] LABS: Glucose,Whole Blood 64 mg/dL (75-99)
[2018-11-28 07:36] LABS: Glucose,Whole Blood 105 mg/dL (75-99)
[2018-11-28] MEDS: INSULIN ASPART (NovoLOG) 100 UNIT/ML VIAL SQ SCH ×2 (08:10→08:15)
[2018-11-28] MEDS: SPIRONOLACTONE 25 MG TAB PO SCH (08:11)
[2018-11-28] MEDS: CLOPIDOGREL 75 MG TAB PO SCH (08:11)
[2018-11-28] MEDS: CARVEDILOL 12.5 MG TAB PO SCH (08:12)
[2018-11-28] MEDS: FUROSEMIDE 10 MG/ML 4 ML VIAL IV SCH (08:15)
[2018-11-28] MEDS ORDERED: LISINOPRIL 20 MG TAB PO SCH (09:00)
[2018-11-28] MEDS ORDERED: ATORVASTATIN 40 MG TAB PO SCH (09:00)
[2018-11-28] MEDS ORDERED: LISINOPRIL 10 MG TAB PO SCH (09:00)
[2018-11-28] MEDS: SYMBICORT 80-4.5 MCG INHALER INHALATION SCH (09:32)
--- NOTE | 2018-11-28 18:06 | DS ---
DISCHARGE SUMMARY DATE OF SERVICE: 11/28/2018 CHIEF COMPLAINT: Chest pain and difficulty breathing. HISTORY OF PRESENT ILLNESS AND PHYSICAL EXAM: Details of this man's history and physical can be found in the initial workup. LABORATORY STUDIES: While he was in the hospital, he had laboratory studies, details of which can be found in the laboratory section of his chart. COURSE IN HOSPITAL: After admission, he was placed on bedrest and started on intravenous fluids and updrafts. He was seen by Cardiology because of elevated enzymes, but they felt nothing further should be done at this time. While in the hospital, he can continue to complain about back pain and try to get more narcotic analgesics. This was refused which was upsetting the patient. We had been giving him small amounts, as an outpatient until he can get into a supervisor painting which the appointment for which is still pending. He signed out AGAINST MEDICAL ADVICE on the morning of the November 28. FINAL DIAGNOSES: 1. Chest pain. 2. Elevated troponin. 3. Exacerbation of chronic obstructive pulmonary disease. 4. Diabetes mellitus, uncontrolled. 5. Narcotic seeker and abuser. OPERATIONS: None. CONSULTATION: Cardiology. MMUBALDOL / JD: [id number] /
== END 2018-11-28 09:43 | disposition left against medical advice (07) | DRG 190 ==
LOC: EC 10:34 → 3SCARD 13:53 → 3NMEDONC 11-28 00:36
PROVIDERS: ADMIT Family Medicine; ATTEND Family Medicine
DX: J44.1 Chronic obstructive pulmonary disease with (acute) exacerbation (principal); J80 Acute respiratory distress syndrome; I50.23 Acute on chronic systolic (congestive) heart failure; E11.65 Type 2 diabetes mellitus with hyperglycemia; E78.5 Hyperlipidemia, unspecified; F31.9 Bipolar disorder, unspecified; F41.9 Anxiety disorder, unspecified; I11.0 Hypertensive heart disease with heart failure; I25.10 Atherosclerotic heart disease of native coronary artery without angina pectoris; I25.5 Ischemic cardiomyopathy; I49.3 Ventricular premature depolarization; Z79.02 Long term (current) use of antithrombotics/antiplatelets; Z79.4 Long term (current) use of insulin; Z79.899 Other long term (current) drug therapy; Z80.3 Family history of malignant neoplasm of breast; Z82.49 Family history of ischemic heart disease and other diseases of the circulatory system; Z83.3 Family history of diabetes mellitus; Z91.19 Patient's noncompliance with other medical treatment and regimen; Z95.5 Presence of coronary angioplasty implant and graft; F15.11 Other stimulant abuse, in remission; F12.11 Cannabis abuse, in remission; F11.11 Opioid abuse, in remission; R74.8 Abnormal levels of other serum enzymes; Z76.5 Malingerer [conscious simulation]; Z88.0 Allergy status to penicillin
CPT/HCPCS: 36415; 71046; 80053; 83735; 83880; 84484; 85025; 85379; 85610; 85730; 93005; 94640; 96374; 96375; 99291

== ENCOUNTER 2018-12-03 11:55 | Observation (INO) | payer OTHER ==
[2018-12-03] MEDS ORDERED: MORPHINE SULFATE 4 MG/ML SYRINGE IVP STA (12:03)
[2018-12-03] MEDS ORDERED: DEXAMETHASONE SOD PHOSPHATE 10 MG/ML 1 ML VIAL IV STA (12:14)
[2018-12-03] MEDS ORDERED: SODIUM CHLORIDE 0.9% 500 ML 500 ML IV ONE (12:14)
[2018-12-03] MEDS ORDERED: ALBUTEROL NEBULIZED 2.5 MG/3 ML INHALATION STA (12:14)
[2018-12-03] MEDS ORDERED: IPRATROPIUM-ALBUTEROL 3 ML NEB INHALATION STA (12:14)
--- NOTE | 2018-12-03 12:39 | ED ---
General Adult HPI - General Chief complaint: Chest Pain Stated complaint: STANLEY Time Seen by Provider: 12/03/18 11:58 Source: patient, EMS, RN notes reviewed, old records reviewed Mode of arrival: EMS Limitations: no limitations - History of Present Illness Initial comments: 58-year-old male history of CAD, COPD, current smoker presenting for evaluation generalized pain complaint and dyspnea. Patient has had symptoms for the past several weeks. His been admitted twice for COPD and CAD and both times his left AGAINST MEDICAL ADVICE. He is presenting today for same complaint. He is complaining of some anterior chest pain which is been present for several weeks as well. States it comes and goes. Nonradiating. He complains of back pain which is chronic in nature. Complains of extremity pain which is also chronic in nature. No fever or chills. He does report a productive cough and dyspnea. - Related Data Home Medications Medication Instructions Recorded Confirmed Albuterol Inhaler [Ventolin Hfa 2 puff INHALATION RT-Q6H PRN 02/13/16 12/03/18 Inhaler] Clopidogrel Bisulfate [Clopidogrel] 75 mg PO DAILY 02/13/16 12/03/18 Atenolol 100 mg PO BID 11/22/18 12/03/18 Fluticasone/Salmeterol 1 puff INHALATION RT-DAILY 11/22/18 12/03/18 [Fluticasone-Salmeterol 113-14] Insulin Glargine,Hum.rec.anlog 90 units SQ HS 11/22/18 12/03/18 [Basaglar Kwikpen U-100] Nitroglycerin Sl Tabs [Nitrostat] 0.4 mg SL Q5M 11/22/18 12/03/18 Benazepril HCl 40 mg PO DAILY 11/26/18 12/03/18 Gabapentin [Neurontin] 800 mg PO TID PRN 11/26/18 12/03/18 Hydrocodone/Acetaminophen [[place] 1 tab PO BID PRN 11/26/18 12/03/18 7.5-325] Ibuprofen [Motrin] 800 mg PO QID PRN 11/26/18 12/03/18 Insulin Lispro [Admelog] 20 unit SQ AC-TID 11/26/18 12/03/18 Ipratropium Nebulized [Atrovent 0.5 mg INHALATION RT-QID PRN 11/26/18 12/03/18 Nebulized 0.2 MG/ML] busPIRone HCl [Buspar] 10 mg PO TID PRN 11/26/18 12/03/18 Allergies Allergy/AdvReac Type Severity Reaction Status Date / Time Penicillins Allergy Unknown Verified 12/03/18 12:17 Childhood Review of Systems ROS Statement: Those systems with pertinent positive or pertinent negative responses have been documented in the HPI. ROS Other: All systems not noted in ROS Statement are negative. Past Medical History Past Medical History: Coronary Artery Disease (CAD), Diabetes Mellitus, Hyperlipidemia, Hypertension Additional Past Medical History / Comment(s): chronic back pain History of Any Multi-Drug Resistant Organisms: None Reported Past Surgical History: Cholecystectomy, Heart Catheterization With Stent Date of Last Stent Placement:: 2011 Past Psychological History: Anxiety, Bipolar, Depression Smoking Status: Current every day smoker Past Alcohol Use History: None Reported Past Drug Use History: Heroin, Marijuana, Methamphetamine, Opiates - Past Family History Mother Family Medical History: Cancer Additional Family Medical History / Comment(s): breast ca Father Family Medical History: Coronary Artery Disease (CAD), Diabetes Mellitus, Hypertension Additional Family Medical History / Comment(s): CABG at age 57 General Exam Limitations: no limitations General appearance: alert, in no apparent distress Head exam: Present: atraumatic, normocephalic Eye exam: Present: normal appearance, PERRL ENT exam: Present: mucous membranes dry Neck exam: Present: normal inspection. Absent: tenderness, meningismus Respiratory exam: Present: respiratory distress, wheezes, rhonchi, decreased breath sounds, prolonged expiratory Cardiovascular Exam: Present: normal rhythm, tachycardia GI/Abdominal exam: Present: soft. Absent: distended, tenderness, guarding Extremities exam: Present: normal inspection, normal capillary refill. Absent: pedal edema Neurological exam: Present: alert, oriented X3, CN II-XII intact. Absent: motor sensory deficit Psychiatric exam: Present: normal affect, normal mood Skin exam: Present: warm, dry, intact. Absent: cyanosis, diaphoretic Course Vital Signs 12/03/18 12/03/18 12/03/18 11:58 12:44 12:52 Temperature 99.4 F Pulse Rate 114 H 98 102 H Respiratory 20 Rate Blood Pressure 163/113 O2 Sat by Pulse 97 Oximetry 12/03/18 12/03/18 13:03 13:10 Temperature Pulse Rate 104 H 108 H Respiratory Rate Blood Pressure O2 Sat by Pulse Oximetry - Reevaluation(s) Reevaluation #1: 12/03/18 13:58 Patient was given aspirin and nitroglycerin by EMS prior to arrival. EKG Findings - EKG Comments: EKG Findings:: Sinus tachycardia, with PVC, rate of 114, MD interval 144, QRS duration 82, QTC 432, no ST segment elevation. Medical Decision Making - Medical Decision Making 58-year-old male presenting with generalized pain complaints, cough and dyspnea. Patient is wheezing bilaterally, history of COPD history of congestive heart failure. He does complain of chest pain although he has predominately generalized pain complaints. Chest x-rays obtained, shows interstitial markings consistent with CHF. He has leukocytosis white count of 15, he has a troponin 0.015, elevated BNP consistent with the degree of congestive heart failure. He will be admitted for both COPD exacerbation and congestive heart failure exacerbation. Case is discussed with the admitting physician. - Lab Data Result diagrams: 12/03/18 12:31 12/03/18 12:31 Lab Results 12/03/18 12/03/18 12/03/18 Range/Units 12:31 12:31 12:31 WBC 15.0 H (3.8-10.6) k/uL RBC 4.68 (4.30-5.90) m/uL Hgb 14.2 (13.0-17.5) gm/dL Hct 44.0 (39.0-53.0) % MCV 93.9 (80.0-100.0) fL MCH 30.2 (25.0-35.0) pg MCHC 32.2 (31.0-37.0) g/dL RDW 14.0 (11.5-15.5) % Plt Count 136 L (150-450) k/uL Neutrophils % 78 % Lymphocytes % 15 % Monocytes % 4 % Eosinophils % 2 % Basophils % 0 % Neutrophils # 11.7 H (1.3-7.7) k/uL Lymphocytes # 2.3 (1.0-4.8) k/uL Monocytes # 0.6 (0-1.0) k/uL Eosinophils # 0.2 (0-0.7) k/uL Basophils # 0.1 (0-0.2) k/uL PT (9.0-12.0) sec INR (<1.2) APTT (22.0-30.0) sec Sodium 133 L (137-145) mmol/L Potassium 5.2 H (3.5-5.1) mmol/L Chloride 99 (98-107) mmol/L Carbon Dioxide 29 (22-30) mmol/L Anion Gap 5 mmol/L BUN 16 (9-20) mg/dL Creatinine 0.76 (0.66-1.25) mg/dL Est GFR (CKD-EPI)AfAm >90 (>60 ml/min/1.73 sqM) Est GFR (CKD-EPI)NonAf >90 (>60 ml/min/1.73 sqM) Glucose 262 H (74-99) mg/dL Calcium 8.9 (8.4-10.2) mg/dL Magnesium 1.9 (1.6-2.3) mg/dL Total Bilirubin 0.6 (0.2-1.3) mg/dL AST 44 (17-59) U/L ALT 57 (21-72) U/L Alkaline Phosphatase 72 (38-126) U/L Troponin I (0.000-0.034) ng/mL NT-Pro-B Natriuret Pep 5190 pg/mL Total Protein 6.0 L (6.3-8.2) g/dL Albumin 3.3 L (3.5-5.0) g/dL 12/03/18 12/03/18 Range/Units 12:31 12:31 WBC (3.8-10.6) k/uL RBC (4.30-5.90) m/uL Hgb (13.0-17.5) gm/dL Hct (39.0-53.0) % MCV (80.0-100.0) fL MCH (25.0-35.0) pg MCHC (31.0-37.0) g/dL RDW (11.5-15.5) % Plt Count (150-450) k/uL Neutrophils % % Lymphocytes % % Monocytes % % Eosinophils % % Basophils % % Neutrophils # (1.3-7.7) k/uL Lymphocytes # (1.0-4.8) k/uL Monocytes # (0-1.0) k/uL Eosinophils # (0-0.7) k/uL Basophils # (0-0.2) k/uL PT 10.3 (9.0-12.0) sec INR 1.0 (<1.2) APTT 26.5 (22.0-30.0) sec Sodium (137-145) mmol/L Potassium (3.5-5.1) mmol/L Chloride (98-107) mmol/L Carbon Dioxide (22-30) mmol/L Anion Gap mmol/L BUN (9-20) mg/dL Creatinine (0.66-1.25) mg/dL Est GFR (CKD-EPI)AfAm (>60 ml/min/1.73 sqM) Est GFR (CKD-EPI)NonAf (>60 ml/min/1.73 sqM) Glucose (74-99) mg/dL Calcium (8.4-10.2) mg/dL Magnesium (1.6-2.3) mg/dL Total Bilirubin (0.2-1.3) mg/dL AST (17-59) U/L ALT (21-72) U/L Alkaline Phosphatase (38-126) U/L Troponin I 0.015 (0.000-0.034) ng/mL NT-Pro-B Natriuret Pep pg/mL Total Protein (6.3-8.2) g/dL Albumin (3.5-5.0) g/dL Disposition Clinical Impression: Congestive heart failure, Acute exacerbation of chronic obstructive airways disease Disposition: ADMITTED IP TO THIS [facility] Condition: Stable Is patient prescribed a controlled substance at d/c from ED?: No Referrals: Tristan Chicas MD [Primary Care Provider] - 1-2 days Decision to Admit Reason: Admit from EC Decision Date: 12/03/18 Decision Time: 14:07
[2018-12-03 13:06] LABS: Basophils # (A) 0.1 k/uL (0-0.2); Basophils % (A) 0 %; Eosinophils # (A) 0.2 k/uL (0-0.7); Eosinophils % (A) 2 %; HGB 14.2 gm/dL (13.0-17.5); Lymphocytes # (A) 2.3 k/uL (1.0-4.8); Lymphocytes % (A) 15 %; MCH 30.2 pg (25.0-35.0); MCHC 32.2 g/dL (31.0-37.0); MCV 93.9 fL (80.0-100.0); Mean Platelet Volume 8.7; Monocytes # (A) 0.6 k/uL (0-1.0); Monocytes % (A) 4 %; Neutrophils # (A) 11.7 k/uL (1.3-7.7); Neutrophils % (A) 78 %; Platelet Count 136 k/uL (150-450); RBC 4.68 m/uL (4.30-5.90)
[2018-12-03 13:14] LABS: Partial Thromboplastin Time 26.5 sec (22.0-30.0); Prothrombin Time 10.3 sec (9.0-12.0)
[2018-12-03 13:16] LABS: ALT 57 U/L (21-72); AST 44 U/L (17-59); African American GFR (CKD) >90 (>60 ml/min/1.73 sqM); Albumin 3.3 g/dL (3.5-5.0); Alkaline Phosphatase 72 U/L (38-126); Anion Gap 5 mmol/L; Blood Urea Nitrogen 16 mg/dL (9-20); Calcium 8.9 mg/dL (8.4-10.2); Carbon Dioxide 29 mmol/L (22-30); Chloride 99 mmol/L (98-107); Glucose 262 mg/dL (74-99); Magnesium 1.9 mg/dL (1.6-2.3); Potassium 5.2 mmol/L (3.5-5.1); Sodium 133 mmol/L (137-145); Total Bilirubin 0.6 mg/dL (0.2-1.3)
--- NOTE | 2018-12-03 13:30 | XR ---
EXAMINATION TYPE: XR chest 2V DATE OF EXAM: 12/03/2018 COMPARISON: 11/26/2018 HISTORY: Difficulty breathing TECHNIQUE: Frontal and lateral views of the chest are obtained. FINDINGS: There is pulmonary hyperinflation and flattening of the diaphragms indicative of underlyin g COPD. Additionally there are trace bilateral pleural effusions, left greater than right. Retrocardi ac airspace disease partially extruded medial left lower lobe and strand-like right basilar airspace disease is worsened from the prior. There is mild interstitial pulmonary edema. Mild diffuse osseous demineralization is also noted. IMPRESSION: Mild pulmonary interstitial edema and bibasilar opacities, on the left in the retrocardi ac airspace as well as trace pleural effusions have worsened in the interim. Consider congestive hear t failure or noncardiogenic fluid overload.
[2018-12-03] MEDS ORDERED: FUROSEMIDE 10 MG/ML 4 ML VIAL IV STA (13:49)
[2018-12-03] MEDS ORDERED: IPRATROPIUM-ALBUTEROL 3 ML NEB INHALATION PRN (14:01)
[2018-12-03] MEDS ORDERED: busPIRone HCl 10 MG TAB PO PRN (14:32)
--- NOTE | 2018-12-03 14:42 | P.HPIM ---
History of Present Illness 58-year-old male with known history of coronary disease, ischemic myopathy and COPD continues to smoke although cut down quite a bit and smokes about 1 cigarette per day came in with complaints of shortness of breath, unable to bring up much. Patient symptoms has been going on for last few days. Patient was recently in the hospital and left AGAINST MEDICAL ADVICE. Patient is also comparing of chest pain in the left upper precordial area patient is bit diaphoretic when I evaluated his chest pain he says about moderate severity nonradiating, denied any fever chills chest x-ray showed pulmonary edema patient had previous ejection of fraction of 20-25% does appear to have COPD exacerbation L as well with wheezing on exam. doesn't have any AICD at this time patient EKG showing sinus tachycardia. Patient does not use any oxygen at home Review of Systems REVIEW OF SYSTEMS: CONSTITUTIONAL: No fever, no malaise, no fatigue. HEENT: No recent visual problems or hearing problems. Denied any sore throat. CARDIOVASCULAR: no palpitations, no syncope. PULMONARY: no hemoptysis. GASTROINTESTINAL: No diarrhea, no nausea, no vomiting, no abdominal pain. NEUROLOGICAL: No headaches, no weakness, no numbness. HEMATOLOGICAL: Denies any bleeding or petechiae. GENITOURINARY: Denies any burning micturition, frequency, or urgency. MUSCULOSKELETAL/RHEUMATOLOGICAL: Denies any joint pain, swelling, or any muscle pain. ENDOCRINE: Denies any polyuria or polydipsia. The rest of the 14-point review of systems is negative. Past Medical History Past Medical History: Coronary Artery Disease (CAD), Diabetes Mellitus, Hyperlipidemia, Hypertension Additional Past Medical History / Comment(s): chronic back pain History of Any Multi-Drug Resistant Organisms: None Reported Past Surgical History: Cholecystectomy, Heart Catheterization With Stent Date of Last Stent Placement:: 2011 Past Psychological History: Anxiety, Bipolar, Depression Smoking Status: Current every day smoker Past Alcohol Use History: None Reported Past Drug Use History: Heroin, Marijuana, Methamphetamine, Opiates - Past Family History Mother Family Medical History: Cancer Additional Family Medical History / Comment(s): breast ca Father Family Medical History: Coronary Artery Disease (CAD), Diabetes Mellitus, Hypertension Additional Family Medical History / Comment(s): CABG at age 57 Medications and Allergies Home Medications Medication Instructions Recorded Confirmed Type Albuterol Inhaler [Ventolin Hfa 2 puff INHALATION RT-Q6H PRN 02/13/16 12/03/18 History Inhaler] Clopidogrel Bisulfate [Clopidogrel] 75 mg PO DAILY 02/13/16 12/03/18 History Atenolol 100 mg PO BID 11/22/18 12/03/18 History Fluticasone/Salmeterol 1 puff INHALATION RT-DAILY 11/22/18 12/03/18 History [Fluticasone-Salmeterol 113-14] Insulin Glargine,Hum.rec.anlog 90 units SQ HS 11/22/18 12/03/18 History [Basaglar Kwikpen U-100] Nitroglycerin Sl Tabs [Nitrostat] 0.4 mg SL Q5M 11/22/18 12/03/18 History Benazepril HCl 40 mg PO DAILY 11/26/18 12/03/18 History Gabapentin [Neurontin] 800 mg PO TID PRN 11/26/18 12/03/18 History Hydrocodone/Acetaminophen [[place] 1 tab PO BID PRN 11/26/18 12/03/18 History 7.5-325] Ibuprofen [Motrin] 800 mg PO QID PRN 11/26/18 12/03/18 History Insulin Lispro [Admelog] 20 unit SQ AC-TID 11/26/18 12/03/18 History Ipratropium Nebulized [Atrovent 0.5 mg INHALATION RT-QID PRN 11/26/18 12/03/18 History Nebulized 0.2 MG/ML] busPIRone HCl [Buspar] 10 mg PO TID PRN 11/26/18 12/03/18 History Allergies Allergy/AdvReac Type Severity Reaction Status Date / Time Penicillins Allergy Unknown Verified 12/03/18 12:17 Childhood Physical Exam Vitals: Vital Signs Temp Pulse Resp BP Pulse Ox 12/03/18 14:29 87 18 146/101 98 12/03/18 14:13 104 H 28 H 163/107 98 12/03/18 14:00 105 H 20 163/107 98 12/03/18 13:30 105 H 18 154/104 97 12/03/18 13:10 108 H 12/03/18 13:03 104 H 12/03/18 12:52 102 H 12/03/18 12:44 98 06/06/19 11:58 99.4 F 114 H 20 163/113 97 Intake and Output 12/02/18 12/03/18 12/03/18 22:59 06:59 14:59 Other: Weight 63.503 kg PHYSICAL EXAMINATION: GENERAL: The patient is alert and oriented x3, is in mild respiratory distress diaphoretic. Well developed, well nourished. HEENT: Pupils are round and equally reacting to light. EOMI. No scleral icterus. No conjunctival pallor. Normocephalic, atraumatic. No pharyngeal erythema. No thyromegaly. CARDIOVASCULAR: S1 and S2 present. No murmurs, rubs, or gallops. K cardiac does have a little mildly elevated JVD PULMONARY: Does have expiratory wheezing on exam ABDOMEN: Soft, nontender, nondistended, normoactive bowel sounds. No palpable organomegaly. MUSCULOSKELETAL: No joint swelling or deformity. EXTREMITIES: No cyanosis, clubbing, does have 1+ pitting pedal edema NEUROLOGICAL: Gross neurological examination did not reveal any focal deficits. SKIN: No rashes. Results CBC & Chem 7: 12/03/18 12:31 12/03/18 12:31 Labs: Abnormal Lab Results - Last 24 Hours (Table) 12/03/18 12/03/18 Range/Units 12:31 12:31 WBC 15.0 H (3.8-10.6) k/uL Plt Count 136 L (150-450) k/uL Neutrophils # 11.7 H (1.3-7.7) k/uL Sodium 133 L (137-145) mmol/L Potassium 5.2 H (3.5-5.1) mmol/L Glucose 262 H (74-99) mg/dL Total Protein 6.0 L (6.3-8.2) g/dL Albumin 3.3 L (3.5-5.0) g/dL Assessment and Plan Plan: -Congestive heart failure chronic systolic dysfunction ischemic adenopathy with acute exacerbation patient was started on IV Lasix which will be continued patient shortness of breath is "from COPD as well as CHF. Patient is on CATHIE inhibitor because of her hyperkalemia on hold CATHIE inhibitor temporally today will be resumed with a bit lower dose tomorrow morning. -COPD with acute exacerbation patient was a started on IV steroids which will be stressed switched to oral with GI prophylaxis and inhalational treatments. -Chest pain: Patient does have significant cardiac history rule out acute coron arnaud syndromes and cardiology will be consulted. -Hyponatremia hypervolemic hyponatremia expected to improve with IV Lasix will recheck basic metabolic profile tomorrow -Type 2 diabetes mellitus his blood sugars are expected not to be controlled and will be elevated secondary to systemic steroids patient will be resumed on his home regimen along with sliding scale insulin for steroids -Hyperlipidemia -Hypertension -Continued nicotine use: Counseling was provided -Bipolar disorder She will need both pharmacologic GI and DVT prophylaxis
[2018-12-03] MEDS: IPRATROPIUM-ALBUTEROL 3 ML NEB INHALATION SCH ×2 (16:08→20:20)
[2018-12-03] MEDS: NITROGLYCERIN SL TABS 0.4 MG TAB SUBLINGUAL SCH ×8 (16:59→17:11)
[2018-12-03] MEDS ORDERED: NITROGLYCERIN SL TABS 0.4 MG TAB SUBLINGUAL PRN (17:00)
[2018-12-03] MEDS: HEPARIN SODIUM,PORCINE 5,000 UNIT/ML 1 ML VIAL SQ SCH (17:01)
[2018-12-03] MEDS ORDERED: INSULIN LISPRO (For Pump) 100 UNIT/ML VIAL SQ-PUMP SCH (17:30)
[2018-12-03] MEDS: HYDROcodone/APAP 7.5-325MG 1 EACH TAB PO PRN (17:31)
[2018-12-03] MEDS: GABAPENTIN 300 MG CAP PO PRN (17:31)
[2018-12-03] MEDS: INSULIN ASPART (NovoLOG) 100 UNIT/ML VIAL SQ SCH ×3 (17:31→21:59)
[2018-12-03] MEDS ORDERED: methylPREDNISolone SOD SUCCI 125 MG/2 ML VIAL IV SCH (18:00)
[2018-12-03 20:17] LABS: Glucose,Whole Blood 353 mg/dL (75-99)
[2018-12-03] MEDS: ATENOLOL 50 MG TAB PO SCH (21:59)
[2018-12-03] MEDS: FAMOTIDINE 20 MG TAB PO SCH (21:59)
[2018-12-03] MEDS: INSULIN DETEMIR (LEVEMIR) 100 UNIT/ML SYR SQ SCH (22:00)
[2018-12-04] MEDS: FUROSEMIDE 10 MG/ML 4 ML VIAL IV SCH ×3 (00:42→23:38)
[2018-12-04] MEDS: HEPARIN SODIUM,PORCINE 5,000 UNIT/ML 1 ML VIAL SQ SCH ×4 (00:43→23:43)
[2018-12-04 06:53] LABS: Glucose,Whole Blood 155 mg/dL (75-99)
--- NOTE | 2018-12-04 07:20 | P.CRDCN ---
History of Present Illness Consult date: 12/04/18 Chief complaint: Shortness of breath/chest pain History of present illness: This is a 58-year-old gentleman with coronary artery disease and prior stenting of the RCA with the last heart catheterization in 2015 showing intermediate in- stent restenosis of the RCA, ischemic cardiomyopathy with a known EF between 30- 35% based on an echocardiogram was performed in October 2018, diabetes, hypertension, dyslipidemia, and history of COPD, presented to the hospital complaining of shortness of breath. He just was discharged from the hospital in October 2018 after he was admitted was congestive heart failure exacerbation secondary to systolic dysfunction and he was discharged AGAINST MEDICAL ADVICE. This time, he presented to the hospital complaining of shortness of breath as well as chest discomfort. He stated that he did not have any lower extremities edema. No fever or chills. No dizziness or lightheadedness. And no syncope. The patient stated that the symptoms started about 2 days ago and has gotten worse after that. For some reasons, when I did review his home medications, he is not on any diuretics. He stated that he was compliant with his medication this time. He is not on any CATHIE inhibitor also because of hyperkalemia. The E KG showed sinus rhythm without any ischemic ST or T-wave abnormalities. The cardiac enzymes were checked and came in to be unremarkable. The BNP came in to be around 5000. The chest x-ray showed findings consistent with CHF. Currently the patient is feeling better internal shortness of breath and he is chest pain- free. Past Medical History Past Medical History: Coronary Artery Disease (CAD), Heart Failure, COPD, Diabetes Mellitus, Hyperlipidemia, Hypertension Additional Past Medical History / Comment(s): Pt recently admitted to [facility] on 11/26/18 with chest pain, elevated troponin, exacerbation COPD, uncontrolled diabetes, narcotic seeking/abuse. Other Hx: Chronic low back pain d/t vertebral fractures years ago as well as cervical pinched nerves, IDDM type II, neuropathy bilateral hands/legs and feet. History of Any Multi-Drug Resistant Organisms: None Reported Past Surgical History: Cholecystectomy, Heart Catheterization, Heart Catheterization With Stent Additional Past Surgical History / Comment(s): R heel I&D, colonoscopy. Past Anesthesia/Blood Transfusion Reactions: No Reported Reaction Date of Last Stent Placement:: 2011 Smoking Status: Current every day smoker - Past Family History Mother Family Medical History: Cancer Additional Family Medical History / Comment(s): breast ca Father Family Medical History: Coronary Artery Disease (CAD), Diabetes Mellitus, Hypertension Additional Family Medical History / Comment(s): CABG at age 57 Medications and Allergies Home Medications Medication Instructions Recorded Confirmed Type Albuterol Inhaler [Ventolin Hfa 2 puff INHALATION RT-Q6H PRN 02/13/16 12/03/18 History Inhaler] Clopidogrel Bisulfate [Clopidogrel] 75 mg PO DAILY 02/13/16 12/03/18 History Atenolol 100 mg PO BID 11/22/18 12/03/18 History Fluticasone/Salmeterol 1 puff INHALATION RT-DAILY 11/22/18 12/03/18 History [Fluticasone-Salmeterol 113-14] Insulin Glargine,Hum.rec.anlog 90 units SQ HS 11/22/18 12/03/18 History [Basaglar Kwikpen U-100] Nitroglycerin Sl Tabs [Nitrostat] 0.4 mg SL Q5M 11/22/18 12/03/18 History Benazepril HCl 40 mg PO DAILY 11/26/18 12/03/18 History Gabapentin [Neurontin] 800 mg PO TID PRN 11/26/18 12/03/18 History Hydrocodone/Acetaminophen [[place] 1 tab PO BID PRN 11/26/18 12/03/18 History 7.5-325] Ibuprofen [Motrin] 800 mg PO QID PRN 11/26/18 12/03/18 History Insulin Lispro [Admelog] 20 unit SQ AC-TID 11/26/18 12/03/18 History Ipratropium Nebulized [Atrovent 0.5 mg INHALATION RT-QID PRN 11/26/18 12/03/18 History Nebulized 0.2 MG/ML] busPIRone HCl [Buspar] 10 mg PO TID PRN 11/26/18 12/03/18 History Allergies Allergy/AdvReac Type Severity Reaction Status Date / Time Penicillins Allergy Unknown Verified 12/03/18 12:17 Childhood Physical Exam Vitals: Vital Signs Temp Pulse Pulse Resp BP BP Pulse Ox 12/04/18 06:53 98.1 F 68 16 138/88 97 12/04/18 04:00 18 12/04/18 03:58 98.0 F 67 18 114/59 98 12/03/18 23:40 18 12/03/18 23:39 98.0 F 73 18 115/67 98 12/03/18 20:31 88 12/03/18 20:21 89 98 12/03/18 20:00 18 12/03/18 19:44 98.1 F 43 L 18 114/70 97 12/03/18 16:20 87 12/03/18 16:09 87 12/03/18 16:00 98.3 F 59 L 17 148/79 96 12/03/18 14:29 87 18 146/101 98 12/03/18 14:13 104 H 28 H 163/107 98 12/03/18 14:00 105 H 20 163/107 98 12/03/18 13:30 105 H 18 154/104 97 12/03/18 13:10 108 H 12/03/18 13:03 104 H 12/03/18 12:52 102 H 12/03/18 12:44 98 12/03/18 11:58 99.4 F 114 H 20 163/113 97 Intake and Output 12/03/18 12/04/18 12/04/18 22:59 06:59 14:59 Other: Voiding Method Toilet Toilet # Voids 1 1 - Constitutional General appearance: no acute distress - Respiratory Respiratory: bilateral: CTA - Cardiovascular Rhythm: regular Heart sounds: normal: S1, S2 Results 12/03/18 12:31 12/03/18 12:31 Cardiac Enzymes 12/03/18 12/03/18 12/03/18 Range/Units 12:31 12:31 18:57 AST 44 (17-59) U/L Troponin I 0.015 <0.012 (0.000-0.034) ng/mL 12/04/18 Range/Units 01:05 AST (17-59) U/L Troponin I <0.012 (0.000-0.034) ng/mL Coagulation 12/03/18 Range/Units 12:31 PT 10.3 (9.0-12.0) sec APTT 26.5 (22.0-30.0) sec CBC 12/03/18 Range/Units 12:31 WBC 15.0 H (3.8-10.6) k/uL RBC 4.68 (4.30-5.90) m/uL Hgb 14.2 (13.0-17.5) gm/dL Hct 44.0 (39.0-53.0) % Plt Count 136 L (150-450) k/uL Comprehensive Metabolic Panel 12/03/18 Range/Units 12:31 Sodium 133 L (137-145) mmol/L Potassium 5.2 H (3.5-5.1) mmol/L Chloride 99 (98-107) mmol/L Carbon Dioxide 29 (22-30) mmol/L BUN 16 (9-20) mg/dL Creatinine 0.76 (0.66-1.25) mg/dL Glucose 262 H (74-99) mg/dL Calcium 8.9 (8.4-10.2) mg/dL AST 44 (17-59) U/L ALT 57 (21-72) U/L Alkaline Phosphatase 72 (38-126) U/L Total Protein 6.0 L (6.3-8.2) g/dL Albumin 3.3 L (3.5-5.0) g/dL Current Medications Generic Name Dose Route Start Last Admin Trade Name Freq PRN Reason Stop Dose Admin Hydrocodone Bitart/Acetaminophen 1 each 12/03/18 14:32 12/03/18 17:[address] 7.5-325 PO 1 each BID PRN Administration Pain Albuterol/Ipratropium 3 ml 12/03/18 14:01 Duoneb 0.5 Mg-3 Mg/3 Ml Soln INHALATION RT-Q4H PRN Shortness Of Breath Or Wheezing Albuterol/Ipratropium 3 ml 12/03/18 16:00 12/03/18 20:20 Duoneb 0.5 Mg-3 Mg/3 Ml Soln INHALATION 3 ml RT-QID MIRLANDE Administration Atenolol 100 mg 12/03/18 21:00 12/03/18 21:59 Tenormin PO 100 mg BID MIRLANDE Administration Budesonide/Formoterol Fumarate 2 puff 12/04/18 08:00 Symbicort 160-4.5 Mcg Inhaler INHALATION RT-BID MIRLANDE Buspirone HCl 10 mg 12/03/18 14:32 Buspar PO TID PRN Anxiety Clopidogrel Bisulfate 75 mg 12/04/18 09:00 Plavix PO DAILY MIRLANDE Famotidine 20 mg 12/03/18 21:00 12/03/18 21:59 Pepcid PO 20 mg BID MIRLANDE Administration Furosemide 40 mg 12/03/18 21:00 12/04/18 00:42 Lasix IV 40 mg Q12HR MIRLANDE Administration Gabapentin 600 mg 12/03/18 14:32 12/03/18 17:31 Neurontin PO 600 mg TID PRN Administration Pain Heparin Sodium (Porcine) 5,000 unit 12/03/18 16:00 12/04/18 00:43 Heparin SQ 5,000 unit Q8HR MIRLANDE Administration Insulin Aspart 0 unit 12/03/18 17:30 12/03/18 21:59 Novolog SQ 8 unit ACHS MIRLANDE Administration Protocol Insulin Aspart 20 unit 12/03/18 17:30 12/03/18 17:31 Novolog SQ 20 unit AC-TID MIRLANDE Administration Insulin Detemir 90 unit 12/03/18 21:00 12/03/18 22:00 Levemir SQ 90 unit HS MIRLANDE Administration Isosorbide Mononitrate 30 mg 12/04/18 09:00 Imdur PO DAILY MIRLANDE Nitroglycerin 0.4 mg 12/03/18 17:00 Nitrostat SUBLINGUAL Q5M PRN Chest Pain Prednisone 40 mg 12/04/18 09:00 PO DAILY MIRLANDE Intake and Output 12/03/18 12/04/18 12/04/18 22:59 06:59 14:59 Other: Voiding Method Toilet Toilet # Voids 1 1 12/03/18 12:31 12/03/18 12:31 Assessment and Plan Assessment: Assessment #1 congestive heart failure exacerbation secondary to systolic dysfunction #2 known ischemic cardiomyopathy with EF between 30-35% #4 coronary artery disease and prior stenting of the RCA as described above #5 atypical chest discomfort #6 multiple comorbidities including diabetes, hypertension, and dyslipidemia #7 chronic obstructive pulmonary disease #8 significant history of smoking Plan #1 continue the current dose of Lasix IV #2 monitor the kidney function and electrolytes #3 probably as an outpatient, stress testing to be done #4 add oral nitrates to the current medical regimen #5 no need to repeat the echocardiogram in view of recent echo showing an EF of 30-35% Thank you for allowing us participate in his care
[2018-12-04] MEDS: IPRATROPIUM-ALBUTEROL 3 ML NEB INHALATION SCH ×4 (07:34→19:17)
[2018-12-04] MEDS: FAMOTIDINE 20 MG TAB PO SCH ×2 (08:21→21:08)
[2018-12-04] MEDS: GABAPENTIN 300 MG CAP PO PRN ×2 (08:21→21:08)
[2018-12-04] MEDS: HYDROcodone/APAP 7.5-325MG 1 EACH TAB PO PRN ×2 (08:21→21:08)
[2018-12-04] MEDS: CLOPIDOGREL 75 MG TAB PO SCH (08:21)
[2018-12-04] MEDS: ATENOLOL 50 MG TAB PO SCH ×2 (08:21→21:08)
[2018-12-04] MEDS: ISOSORBIDE MONONITRATE ER 30 MG TAB.ER.24H PO SCH (08:21)
[2018-12-04] MEDS: INSULIN ASPART (NovoLOG) 100 UNIT/ML VIAL SQ SCH ×7 (08:22→21:11)
[2018-12-04] MEDS ORDERED: predniSONE 20 MG TAB PO SCH (09:00)
[2018-12-04 09:20] LABS: HCT 45.8 % (39.0-53.0); HGB 15.2 gm/dL (13.0-17.5); MCH 31.8 pg (25.0-35.0); MCHC 33.2 g/dL (31.0-37.0); MCV 95.8 fL (80.0-100.0); Mean Platelet Volume 8.6; Platelet Count 182 k/uL (150-450); RBC 4.78 m/uL (4.30-5.90); RDW 13.2 % (11.5-15.5); WBC 18.1 k/uL (3.8-10.6)
[2018-12-04 09:25] LABS: African American GFR (CKD) >90 (>60 ml/min/1.73 sqM); Anion Gap 5 mmol/L; Blood Urea Nitrogen 31 mg/dL (9-20); Calcium 9.4 mg/dL (8.4-10.2); Carbon Dioxide 33 mmol/L (22-30); Chloride 98 mmol/L (98-107); Glucose 165 mg/dL (74-99); Potassium 4.3 mmol/L (3.5-5.1); Sodium 136 mmol/L (137-145)
[2018-12-04] MEDS: SYMBICORT 160-4.5 MCG INHALER INHALATION SCH ×2 (09:34→19:16)
[2018-12-04 11:50] LABS: Glucose,Whole Blood 69 mg/dL (75-99)
[2018-12-04 12:11] LABS: Glucose,Whole Blood 72 mg/dL (75-99)
--- NOTE | 2018-12-04 13:52 | P.PN ---
Subjective Patient is admitted for CHF exacerbation does have mild COPD as well patient is doing much better today hyponatremia improved continue with IV Lasix today possibility of discharge tomorrow. Constitutional: Denied any fatigue denied any fever. Cardio vascular: denied any chest pain, palpitations Gastrointestinal denied any nausea vomiting Pulmonary: Significantly improved shortness of breath Neurologic denied any new focal deficits All inpatient medications were reviewed and appropriate changes in these medications as dictated in the interval history and assessment and plan. Objective - Vital Signs Vital signs: Vital Signs Temp 98.3 F 12/04/18 12:00 Pulse 70 12/04/18 12:00 Resp 15 12/04/18 12:00 BP 99/63 12/04/18 12:00 Pulse Ox 96 12/04/18 12:00 Intake & Output 12/03/18 12/04/18 12/04/18 18:59 06:59 18:59 Intake Total 250 Balance 250 Weight 63.503 kg Intake: Oral 250 Other: Voiding Method Toilet Toilet Toilet # Voids 1 - Exam PHYSICAL EXAMINATION: GENERAL: The patient is alert and oriented x3, is in mild respiratory distress diaphoretic. Well developed, well nourished. HEENT: Pupils are round and equally reacting to light. EOMI. No scleral icterus. No conjunctival pallor. Normocephalic, atraumatic. No pharyngeal erythema. No thyromegaly. CARDIOVASCULAR: S1 and S2 present. No murmurs, rubs, or gallops. JVD improved PULMONARY: Wheezing and crackles resolved ABDOMEN: Soft, nontender, nondistended, normoactive bowel sounds. No palpable organomegaly. MUSCULOSKELETAL: No joint swelling or deformity. EXTREMITIES: No cyanosis, clubbing, pitting edema is better NEUROLOGICAL: Gross neurological examination did not reveal any focal deficits. SKIN: No rashes. - Labs CBC & Chem 7: 12/04/18 08:53 12/04/18 08:53 Labs: Abnormal Lab Results - Last 24 Hours (Table) 12/03/18 12/04/18 12/04/18 Range/Units 20:07 06:52 08:53 WBC 18.1 H (3.8-10.6) k/uL Sodium (137-145) mmol/L Carbon Dioxide (22-30) mmol/L BUN (9-20) mg/dL Glucose (74-99) mg/dL POC Glucose (mg/dL) 353 H 155 H (75-99) mg/dL 12/04/18 12/04/18 12/04/18 Range/Units 08:53 11:49 12:10 WBC (3.8-10.6) k/uL Sodium 136 L (137-145) mmol/L Carbon Dioxide 33 H (22-30) mmol/L BUN 31 H (9-20) mg/dL Glucose 165 H (74-99) mg/dL POC Glucose (mg/dL) 69 L 72 L (75-99) mg/dL Assessment and Plan Plan: -Congestive heart failure chronic systolic dysfunction ischemic adenopathy with acute exacerbation patient will be continued on on IV Lasix which will be continued patient shortness of breath is "from COPD as well as CHF. Patient is on CATHIE inhibitor because of her hyperkalemia on hold CATHIE inhibitor temporally today will be resumed with a bit lower dose tomorrow morning. -COPD with acute exacerbation patient will continue prednisone oral with GI prophylaxis and inhalational treatments. -Chest pain: Patient does have significant cardiac history rule out acute coronary syndromes and cardiology will be consulted. -Hyponatremia hypervolemic hyponatremia improved with IV Lasix -Type 2 diabetes mellitus his blood sugars are expected not to be controlled and will be elevated secondary to systemic steroids patient will be resumed on his home regimen along with sliding scale insulin for steroids -Hyperlipidemia -Hypertension -Continued nicotine use: Counseling was provided -Bipolar disorder She will need both pharmacologic GI and DVT prophylaxis
[2018-12-04 16:43] LABS: Glucose,Whole Blood 334 mg/dL (75-99)
[2018-12-04 20:34] LABS: Glucose,Whole Blood 198 mg/dL (75-99)
[2018-12-04] MEDS: INSULIN DETEMIR (LEVEMIR) 100 UNIT/ML SYR SQ SCH (21:11)
[2018-12-04 23:56] VITALS: RESP 18
[2018-12-05 06:48] LABS: Glucose,Whole Blood 114 mg/dL (75-99)
[2018-12-05 07:49] VITALS: BP 121/71; PULSE 69; TEMP 97.6
[2018-12-05] MEDS: IPRATROPIUM-ALBUTEROL 3 ML NEB INHALATION SCH ×2 (07:55→12:36)
[2018-12-05] MEDS: SYMBICORT 160-4.5 MCG INHALER INHALATION SCH (07:55)
[2018-12-05 08:04] LABS: African American GFR (CKD) >90 (>60 ml/min/1.73 sqM); Anion Gap 6 mmol/L; Blood Urea Nitrogen 41 mg/dL (9-20); Calcium 9.1 mg/dL (8.4-10.2); Carbon Dioxide 30 mmol/L (22-30); Chloride 98 mmol/L (98-107); Glucose 117 mg/dL (74-99); Potassium 4.1 mmol/L (3.5-5.1); Sodium 134 mmol/L (137-145)
[2018-12-05] MEDS: INSULIN ASPART (NovoLOG) 100 UNIT/ML VIAL SQ SCH ×2 (08:36)
[2018-12-05] MEDS: HEPARIN SODIUM,PORCINE 5,000 UNIT/ML 1 ML VIAL SQ SCH (08:42)
[2018-12-05] MEDS: ISOSORBIDE MONONITRATE ER 30 MG TAB.ER.24H PO SCH (08:42)
[2018-12-05] MEDS: ATENOLOL 50 MG TAB PO SCH (08:42)
[2018-12-05] MEDS: FUROSEMIDE 10 MG/ML 4 ML VIAL IV SCH (08:42)
[2018-12-05] MEDS: CLOPIDOGREL 75 MG TAB PO SCH (08:42)
[2018-12-05] MEDS: FAMOTIDINE 20 MG TAB PO SCH (08:42)
[2018-12-05] MEDS: HYDROcodone/APAP 7.5-325MG 1 EACH TAB PO PRN (08:52)
[2018-12-05] MEDS: GABAPENTIN 300 MG CAP PO PRN (08:52)
[2018-12-05] MEDS ORDERED: predniSONE 20 MG TAB PO SCH (09:00)
--- NOTE | 2018-12-05 10:00 | P.PN ---
Subjective Progress Note Date: 12/05/18 This is a 58-year-old gentleman with history of ischemic heart disease with previous stent placement of the RCA, cardiomyopathy and chronic CHF and also underlying COPD was admitted to the hospital with complaints of increasing shortness of breath. Chest x-ray on admission showed evidence of CHF. Patient was treated with IV Lasix 40 mg every 8 hours. Patient diuresed well. He is feeling much better. He wants to go home. I'm going to switch to by mouth Lasix 80 mg twice a day. And continue current medical therapy. His lab work today showed normal electrolytes except sodium is 134. His creatinine is 0.84. His lungs are clear. Heart is regular. No edema Objective - Vital Signs Vital signs: Vital Signs Temp 97.6 F 12/05/18 07:15 Pulse 69 12/05/18 07:15 Resp 18 12/05/18 07:15 BP 121/71 12/05/18 07:15 Pulse Ox 99 12/05/18 07:55 Intake & Output 12/04/18 12/05/18 12/05/18 18:59 06:59 18:59 Intake Total 670 Balance 670 Weight 63.503 kg Intake: Oral 670 Other: Voiding Method Toilet Toilet # Voids 1 1 - Exam GENERAL EXAM: Patient is alert and oriented and doesn't appear to be in any acute distress HEENT: Normocephalic. Normal reaction of pupils, equal size, normal range of extraocular motion. No erythema or exudates in the throat. NECK: No masses, no nuchal rigidity. CHEST: No chest wall deformity. LUNGS: Equal air entry with no crackles or wheeze. HEART: S1 and S2 normal with no audible mumurs or gallops. Regular rhythm, femorals equal on both sides.. ABDOMEN: No hepatosplenomegaly, normal bowel sounds, no guarding or rigidity. SKIN: No rashes CENTRAL NERVOUS SYSTEM: No focal deficits. EXTREMITIES: No cyanosis, clubbing or edema. - Labs CBC & Chem 7: 12/04/18 08:53 12/05/18 07:19 Labs: Abnormal Lab Results - Last 24 Hours (Table) 12/04/18 12/04/18 12/04/18 Range/Units 11:49 12:10 16:39 Sodium (137-145) mmol/L BUN (9-20) mg/dL Glucose (74-99) mg/dL POC Glucose (mg/dL) 69 L 72 L 334 H (75-99) mg/dL 12/04/18 12/05/18 12/05/18 Range/Units 20:28 06:46 07:19 Sodium 134 L (137-145) mmol/L BUN 41 H (9-20) mg/dL Glucose 117 H (74-99) mg/dL POC Glucose (mg/dL) 198 H 114 H (75-99) mg/dL Assessment and Plan (1) COPD (chronic obstructive pulmonary disease) Current Visit: Yes Status: Acute Code(s): J44.9 - CHRONIC OBSTRUCTIVE PULMONARY DISEASE, UNSPECIFIED SNOMED Code(s): 64236951 (2) Congestive heart failure Current Visit: Yes Status: Acute Code(s): I50.9 - HEART FAILURE, UNSPECIFIED SNOMED Code(s): 68442670 (3) Chest pain Current Visit: No Status: Acute Code(s): R07.9 - CHEST PAIN, UNSPECIFIED SNOMED Code(s): 73702769 Plan: Patient appears to be stable and feeling better. He wants to go home. I'm going switch to by mouth Lasix 80 mg twice a day
[2018-12-05 11:54] LABS: Glucose,Whole Blood 178 mg/dL (75-99)
[2018-12-05] MEDS ORDERED: FUROSEMIDE 80 MG TAB PO SCH (16:00)
--- NOTE | 2018-12-05 16:00 | P.DS ---
Providers Date of admission: 12/03/18 14:01 Attending physician: Shaheed Panda Consults: 12/03/18 14:42 Consult Physician Routine Consulting Provider: Matthew Soni Consult Reason/Comments: Chest pain Do you want consulting provider notified?: Yes Primary care physician: Shaheed Panda Hospital Course: Patient is admitted for CHF exacerbation does have mild COPD as well patient is doing much better today hyponatremia improved continue with IV Lasix today possibility of discharge tomorrow. 12/05/2018 Patient is feeling better patient is cleared by cardiology patient will be discharged to follow Dr. Martínez as an outpatient and cardiology as an outpatient. PHYSICAL EXAMINATION: GENERAL: The patient is alert and oriented x3, is in mild respiratory distress diaphoretic. Well developed, well nourished. HEENT: Pupils are round and equally reacting to light. EOMI. No scleral icterus. No conjunctival pallor. Normocephalic, atraumatic. No pharyngeal erythema. No thyromegaly. CARDIOVASCULAR: S1 and S2 present. No murmurs, rubs, or gallops. JVD improved PULMONARY: No crackles or wheezing ABDOMEN: Soft, nontender, nondistended, normoactive bowel sounds. No palpable organomegaly. MUSCULOSKELETAL: No joint swelling or deformity. EXTREMITIES: No cyanosis, clubbing, pitting edema is better NEUROLOGICAL: Gross neurological examination did not reveal any focal deficits. SKIN: No rashes. Assessment and Plan Plan: -Congestive heart failure chronic systolic dysfunction ischemic cardiomyopathy with acute exacerbation patient shortness of breath is "from COPD as well as CHF. Patient is on CATHIE inhibitor because of her hyperkalemia on hold CATHIE inhibitor temporally and was resumed with a bit lower dose . -COPD with acute exacerbation patient will continue prednisone oral with GI prophylaxis and inhalational treatments. -Chest pain: Patient was evaluated by cardiology no further intervention regarding this perspective -Hyponatremia hypervolemic hyponatremia improved with IV Lasix -Type 2 diabetes mellitus his blood sugars are fairly well controlled -Hyperlipidemia -Hypertension -Continued nicotine use: Counseling was provided -Bipolar disorder Patient Condition at Discharge: Stable Plan - Discharge Summary Discharge Rx Participant: No New Discharge Prescriptions: New Furosemide [Lasix] 80 mg PO BID@0900,1600 #60 tab predniSONE 10 mg PO DAILY #30 tab Continue Clopidogrel Bisulfate [Clopidogrel] 75 mg PO DAILY Albuterol Inhaler [Ventolin Hfa Inhaler] 2 puff INHALATION RT-Q6H PRN PRN Reason: Shortness Of Breath Fluticasone/Salmeterol [Fluticasone-Salmeterol 113-14] 1 puff INHALATION RT-DAILY Insulin Glargine,Hum.rec.anlog [Basaglar Kwikpen U-100] 90 units SQ HS Nitroglycerin Sl Tabs [Nitrostat] 0.4 mg SL Q5M Benazepril HCl 40 mg PO DAILY busPIRone HCl [Buspar] 10 mg PO TID PRN PRN Reason: Anxiety Gabapentin [Neurontin] 800 mg PO TID PRN PRN Reason: Pain Hydrocodone/Acetaminophen [[place] 7.5-325] 1 tab PO BID PRN PRN Reason: Pain Ibuprofen [Motrin] 800 mg PO QID PRN PRN Reason: Pain Insulin Lispro [Admelog] 20 unit SQ AC-TID Ipratropium Nebulized [Atrovent Nebulized 0.2 MG/ML] 0.5 mg INHALATION RT-QID PRN PRN Reason: Shortness Of Breath Changed Atenolol 100 mg PO DAILY #0 Discharge Medication List Albuterol Inhaler [Ventolin Hfa Inhaler] 2 puff INHALATION RT-Q6H PRN 02/13/16 [History] Clopidogrel Bisulfate [Clopidogrel] 75 mg PO DAILY 02/13/16 [History] Fluticasone/Salmeterol [Fluticasone-Salmeterol 113-14] 1 puff INHALATION RT- DAILY 11/22/18 [History] Insulin Glargine,Hum.rec.anlog [Basaglar Kwikpen U-100] 90 units SQ HS 11/22/18 [History] Nitroglycerin Sl Tabs [Nitrostat] 0.4 mg SL Q5M 11/22/18 [History] Benazepril HCl 40 mg PO DAILY 11/26/18 [History] Gabapentin [Neurontin] 800 mg PO TID PRN 11/26/18 [History] Hydrocodone/Acetaminophen [[place] 7.5-325] 1 tab PO BID PRN 11/26/18 [History] Ibuprofen [Motrin] 800 mg PO QID PRN 11/26/18 [History] Insulin Lispro [Admelog] 20 unit SQ AC-TID 11/26/18 [History] Ipratropium Nebulized [Atrovent Nebulized 0.2 MG/ML] 0.5 mg INHALATION RT-QID PRN 11/26/18 [History] busPIRone HCl [Buspar] 10 mg PO TID PRN 11/26/18 [History] Atenolol 100 mg PO DAILY #0 12/05/18 [Rx] Furosemide [Lasix] 80 mg PO BID@0900,1600 #60 tab 12/05/18 [Rx] predniSONE 10 mg PO DAILY #30 tab 12/05/18 [Rx] Follow up Appointment(s)/Referral(s): Salvador Martínez MD [REFERRING] - 1 Week (follow up with Dr. Martínez after discharge.) Jhonny Nina MD [STAFF PHYSICIAN] - 1 Week (office closed, pt is it follow up with cardiology assoicates.) Patient Instructions/Handouts: Chest Pain (DC), Shortness of Breath (DC) Discharge Disposition: HOME SELF-CARE
== END 2018-12-05 12:51 | disposition home or self-care (01) ==
LOC: EC 11:55 → 1SOBS 14:01
PROVIDERS: ADMIT Internal Medicine; ATTEND Internal Medicine
DX: I11.0 Hypertensive heart disease with heart failure (principal); I50.23 Acute on chronic systolic (congestive) heart failure; J44.1 Chronic obstructive pulmonary disease with (acute) exacerbation; M54.9 Dorsalgia, unspecified; G89.29 Other chronic pain; E11.40 Type 2 diabetes mellitus with diabetic neuropathy, unspecified; F31.9 Bipolar disorder, unspecified; F41.9 Anxiety disorder, unspecified; M79.606 Pain in leg, unspecified; E87.5 Hyperkalemia; F17.200 Nicotine dependence, unspecified, uncomplicated; E78.5 Hyperlipidemia, unspecified; E87.1 Hypo-osmolality and hyponatremia; I25.5 Ischemic cardiomyopathy; I10 Essential (primary) hypertension; I25.10 Atherosclerotic heart disease of native coronary artery without angina pectoris; Z79.4 Long term (current) use of insulin; Z79.899 Other long term (current) drug therapy; Z88.0 Allergy status to penicillin; Z79.51 Long term (current) use of inhaled steroids; Z71.6 Tobacco abuse counseling; Z95.5 Presence of coronary angioplasty implant and graft; Z90.49 Acquired absence of other specified parts of digestive tract; Z83.3 Family history of diabetes mellitus; Z80.3 Family history of malignant neoplasm of breast; Z82.49 Family history of ischemic heart disease and other diseases of the circulatory system
CPT/HCPCS: 96372 ×2; 96376 ×2; 96361; 96374; 96375; 99285; 36415; 94640 ×4; 94760 ×2; 93005; 83880; 80053; 80048 ×2; 83735; 84484 ×2; 85025; 85027; 85610; 85730; 71046; G0378 ×3; J2270; J1644 ×2; J1100; J1940 ×3; J7512 ×2

== ENCOUNTER 2018-12-31 18:55 | Emergency (ER) | payer OTHER ==
--- NOTE | 2018-12-31 18:58 | ED ---
Overdose HPI - General Stated Complaint: Overdose Time Seen by Provider: 12/31/18 18:57 Source: RN notes reviewed, old records reviewed - History of Present Illness Initial Comments: 8-year-old male the ER for evaluation. Patient resents today status post heroin overdose and was given Narcan. Patient has history of drug abuse. Denies suicidal thoughts currently. Patient currently asymptomatic no headache chest pain shortness of breath or abdominal pain. Significant symptoms currently. MD Complaint: accidental overdose (heroin) -: minutes(s) Intent: other (wanted to get high) How Overdose Was Discovered: family/friend present at time Context: Intentional Overdose: drug/ETOH problems Context: Accidental Overdose: wanted to get high Treatments Prior to Arrival: oxygen, narcan, IV fluids - Related Data Home Medications Medication Instructions Recorded Confirmed Albuterol Inhaler [Ventolin Hfa 2 puff INHALATION RT-Q6H PRN 02/13/16 12/31/18 Inhaler] Clopidogrel Bisulfate [Clopidogrel] 75 mg PO DAILY 02/13/16 12/31/18 Fluticasone/Salmeterol 1 puff INHALATION RT-DAILY 11/22/18 12/31/18 [Fluticasone-Salmeterol 113-14] Insulin Glargine,Hum.rec.anlog 90 units SQ HS 11/22/18 12/31/18 [Basaglar Kwikpen U-100] Nitroglycerin Sl Tabs [Nitrostat] 0.4 mg SL Q5M PRN 11/22/18 12/31/18 Gabapentin [Neurontin] 800 mg PO TID PRN 11/26/18 12/31/18 Hydrocodone/Acetaminophen [[place] 1 tab PO BID PRN 11/26/18 12/31/18 7.5-325] Ibuprofen [Motrin] 800 mg PO QID PRN 11/26/18 12/31/18 Insulin Lispro [Admelog] 20 unit SQ AC-TID 11/26/18 12/31/18 Ipratropium Nebulized [Atrovent 0.5 mg INHALATION RT-QID PRN 11/26/18 12/31/18 Nebulized 0.2 MG/ML] busPIRone HCl [Buspar] 10 mg PO TID PRN 11/26/18 12/31/18 Albuterol Nebulized [Ventolin 2.5 mg INHALATION RT-QID PRN 12/31/18 12/31/18 Nebulized] Carvedilol [Coreg] 25 mg PO BID 12/31/18 12/31/18 Previous Rx's Medication Instructions Recorded Benazepril HCl 20 mg PO DAILY #0 12/05/18 Furosemide [Lasix] 80 mg PO BID@0900,1600 #60 tab 12/05/18 predniSONE 10 mg PO DAILY #30 tab 12/05/18 Allergies Allergy/AdvReac Type Severity Reaction Status Date / Time Penicillins Allergy Unknown Verified 12/31/18 19:17 Childhood Review of Systems ROS Statement: Those systems with pertinent positive or pertinent negative responses have been documented in the HPI. ROS Other: All systems not noted in ROS Statement are negative. Past Medical History Past Medical History: Coronary Artery Disease (CAD), Heart Failure, COPD, Diabetes Mellitus, Hyperlipidemia, Hypertension Additional Past Medical History / Comment(s): Pt recently admitted to [facility] on 11/26/18 with chest pain, elevated troponin, exacerbation COPD, uncontrolled diabetes, narcotic seeking/abuse. Other Hx: Chronic low back pain d/t vertebral fractures years ago as well as cervical pinched nerves, IDDM type II, neuropathy bilateral hands/legs and feet. History of Any Multi-Drug Resistant Organisms: None Reported Past Surgical History: Cholecystectomy, Heart Catheterization, Heart Catheterization With Stent Additional Past Surgical History / Comment(s): R heel I&D, colonoscopy. Past Anesthesia/Blood Transfusion Reactions: No Reported Reaction Date of Last Stent Placement:: 2011 Smoking Status: Current every day smoker - Past Family History Mother Family Medical History: Cancer Additional Family Medical History / Comment(s): breast ca Father Family Medical History: Coronary Artery Disease (CAD), Diabetes Mellitus, Hypertension Additional Family Medical History / Comment(s): CABG at age 57 General Exam General appearance: alert, in no apparent distress Head exam: Present: atraumatic, normocephalic, normal inspection Eye exam: Present: normal appearance, PERRL, EOMI. Absent: scleral icterus, conjunctival injection, periorbital swelling ENT exam: Present: normal exam, mucous membranes moist Neck exam: Present: normal inspection. Absent: tenderness, meningismus, lymphadenopathy Respiratory exam: Present: normal lung sounds bilaterally. Absent: respiratory distress, wheezes, rales, rhonchi, stridor Cardiovascular Exam: Present: regular rate, normal rhythm, normal heart sounds. Absent: systolic murmur, diastolic murmur, rubs, gallop, clicks GI/Abdominal exam: Present: soft, normal bowel sounds. Absent: distended, tenderness, guarding, rebound, rigid Extremities exam: Present: normal inspection, full ROM, normal capillary refill. Absent: tenderness, pedal edema, joint swelling, calf tenderness Back exam: Present: normal inspection Neurological exam: Present: alert, oriented X3, CN II-XII intact Psychiatric exam: Present: normal affect, normal mood Skin exam: Present: warm, dry, intact, normal color. Absent: rash Course Vital Signs 12/31/18 12/31/18 19:00 20:02 Temperature 98.6 F 98.2 F Pulse Rate 93 91 Respiratory 16 18 Rate Blood Pressure 147/87 136/78 O2 Sat by Pulse 98 98 Oximetry Medical Decision Making - Medical Decision Making 58 male to the ED co heroin overdose treated by narcan w ems, patient consulted re severity of illnewss at time of needing narcan for drug use and high risk of , patient again asymptomatic, can be discharged Disposition Clinical Impression: Poisoning by opiate or related narcotic, Drug overdose Disposition: HOME SELF-CARE Condition: Good Instructions (If sedation given, give patient instructions): Narcotic Withdrawal (ED), Opioid Use Disorder (ED) Is patient prescribed a controlled substance at d/c from ED?: No Referrals: None,Stated [Primary Care Provider] - 1-2 days
[2018-12-31 20:03] VITALS: BP 136/78; PULSE 91; RESP 18; TEMP 98.2
--- NOTE | 2019-01-01 06:01 | CDI ---
Documentation Clarification OP Dear Leonid GABRIEL, DO Please do addendum to ED report for missing HPI and Physical examination. Thank you, Ryan Zepeda Director [employer] If you have any questions, please contact Benefits Administrator at [phone] [facility]
== END 2018-12-31 20:02 | disposition home or self-care (01) ==
LOC: EC 18:55
DX: T40.1X1A Poisoning by heroin, accidental (unintentional), initial encounter (principal); I25.10 Atherosclerotic heart disease of native coronary artery without angina pectoris; I11.0 Hypertensive heart disease with heart failure; I50.9 Heart failure, unspecified; J44.9 Chronic obstructive pulmonary disease, unspecified; E11.40 Type 2 diabetes mellitus with diabetic neuropathy, unspecified; F17.200 Nicotine dependence, unspecified, uncomplicated; Z95.818 Presence of other cardiac implants and grafts; Z95.5 Presence of coronary angioplasty implant and graft; Z79.02 Long term (current) use of antithrombotics/antiplatelets; Z79.51 Long term (current) use of inhaled steroids; Z79.4 Long term (current) use of insulin; Z79.899 Other long term (current) drug therapy; Z88.0 Allergy status to penicillin
CPT/HCPCS: 99284

== ENCOUNTER 2019-01-31 14:07 | Observation (INO) | payer OTHER ==
[2019-01-31] MEDS ORDERED: methylPREDNISolone SOD SUCCI 125 MG/2 ML VIAL IV STA (14:25)
[2019-01-31] MEDS ORDERED: IPRATROPIUM-ALBUTEROL 3 ML NEB INHALATION STA (14:25)
--- NOTE | 2019-01-31 14:27 | ED ---
General Adult HPI - General Chief complaint: Shortness of Breath Stated complaint: STANLEY Time Seen by Provider: 01/31/19 14:09 Source: patient, EMS, RN notes reviewed Mode of arrival: EMS Limitations: no limitations - History of Present Illness Initial comments: Patient is a pleasant 59-year-old male presenting to the emergency Department with complaints of difficulty breathing. Onset of symptoms was this morning. Symptoms have progressed since that time. Patient does have mild nonproductive cough. No chest pain. Patient does feel fatigued. Patient does complain of leg swelling. No leg pain. Patient does have history of similar symptoms prev iously associated with both COPD and CHF. No fevers. - Related Data Home Medications Medication Instructions Recorded Confirmed Albuterol Inhaler [Ventolin Hfa 2 puff INHALATION RT-Q6H PRN 02/13/16 01/31/19 Inhaler] Fluticasone/Salmeterol 1 puff INHALATION RT-DAILY 11/22/18 01/31/19 [Fluticasone-Salmeterol 113-14] Nitroglycerin Sl Tabs [Nitrostat] 0.4 mg SL Q5M PRN 11/22/18 01/31/19 Gabapentin [Neurontin] 800 mg PO TID PRN 11/26/18 01/31/19 Hydrocodone/Acetaminophen [[place] 1 tab PO BID PRN 11/26/18 01/31/19 7.5-325] Ipratropium Nebulized [Atrovent 0.5 mg INHALATION RT-QID PRN 11/26/18 01/31/19 Nebulized 0.2 MG/ML] Albuterol Nebulized [Ventolin 2.5 mg INHALATION RT-QID PRN 12/31/18 01/31/19 Nebulized] Carvedilol [Coreg] 25 mg PO BID 12/31/18 01/31/19 Previous Rx's Medication Instructions Recorded Furosemide [Lasix] 80 mg PO BID@0900,1600 #60 tab 12/05/18 Allergies Allergy/AdvReac Type Severity Reaction Status Date / Time Penicillins Allergy Unknown Verified 01/31/19 14:51 Childhood Review of Systems ROS Statement: Those systems with pertinent positive or pertinent negative responses have been documented in the HPI. ROS Other: All systems not noted in ROS Statement are negative. Constitutional: Denies: fever Eyes: Denies: eye pain ENT: Denies: ear pain Respiratory: Reports: as per HPI, dyspnea Cardiovascular: Reports: edema. Denies: chest pain Endocrine: Reports: fatigue Gastrointestinal: Denies: abdominal pain Genitourinary: Denies: dysuria Musculoskeletal: Denies: back pain Skin: Denies: rash Neurological: Denies: weakness Past Medical History Past Medical History: Coronary Artery Disease (CAD), Heart Failure, COPD, Diabetes Mellitus, Hyperlipidemia, Hypertension Additional Past Medical History / Comment(s): Pt recently admitted to [facility] on 11/26/18 with chest pain, elevated troponin, exacerbation COPD, uncontrolled diabetes, narcotic seeking/abuse. Other Hx: Chronic low back pain d/t vertebral fractures years ago as well as cervical pinched nerves, IDDM type II, neuropathy bilateral hands/legs and feet. History of Any Multi-Drug Resistant Organisms: None Reported Past Surgical History: Cholecystectomy, Heart Catheterization, Heart Catheterization With Stent Additional Past Surgical History / Comment(s): R heel I&D, colonoscopy. Past Anesthesia/Blood Transfusion Reactions: No Reported Reaction Date of Last Stent Placement:: 2011 Past Psychological History: Anxiety, Bipolar, Depression Smoking Status: Current every day smoker Past Alcohol Use History: None Reported Past Drug Use History: Heroin - Past Family History Mother Family Medical History: Cancer Additional Family Medical History / Comment(s): breast ca Father Family Medical History: Coronary Artery Disease (CAD), Diabetes Mellitus, Hypertension Additional Family Medical History / Comment(s): CABG at age 57 General Exam Limitations: no limitations General appearance: alert Head exam: Present: atraumatic Eye exam: Present: normal appearance, PERRL ENT exam: Present: normal oropharynx Neck exam: Present: normal inspection Respiratory exam: Present: respiratory distress, wheezes, rales Cardiovascular Exam: Present: regular rate, normal rhythm GI/Abdominal exam: Present: soft. Absent: tenderness Extremities exam: Present: pedal edema. Absent: calf tenderness Neurological exam: Present: alert Psychiatric exam: Present: normal affect, normal mood Skin exam: Present: normal color Course Vital Signs 01/31/19 01/31/19 01/31/19 14:10 14:29 14:37 Temperature 97.2 F L Pulse Rate 88 88 93 Respiratory 20 Rate Blood Pressure 172/111 O2 Sat by Pulse 98 Oximetry 01/31/19 16:12 Temperature Pulse Rate 91 Respiratory 16 Rate Blood Pressure 186/99 O2 Sat by Pulse 98 Oximetry EKG Findings - EKG Comments: EKG Findings:: Normal sinus rhythm 81. DE 158. QRS 84. QT 388. QTC 450. Normal axis. Septal Q waves. No acute ST change. Medical Decision Making - Medical Decision Making Patient reevaluated and improved with nebulizer treatment. Old x-rays reviewed. Case was discussed with Dr. cuevas, who will admit covering for hospital call. Pulmonary will be placed on consult. - Lab Data Result diagrams: 01/31/19 14:42 01/31/19 14:42 Lab Results 01/31/19 01/31/19 01/31/19 Range/Units 14:42 14:42 14:42 WBC 10.3 (3.8-10.6) k/uL RBC 4.80 (4.30-5.90) m/uL Hgb 15.0 (13.0-17.5) gm/dL Hct 45.5 (39.0-53.0) % MCV 94.8 (80.0-100.0) fL MCH 31.4 (25.0-35.0) pg MCHC 33.1 (31.0-37.0) g/dL RDW 12.9 (11.5-15.5) % Plt Count 181 (150-450) k/uL Neutrophils % 67 % Lymphocytes % 21 % Monocytes % 7 % Eosinophils % 3 % Basophils % 1 % Neutrophils # 6.9 (1.3-7.7) k/uL Lymphocytes # 2.2 (1.0-4.8) k/uL Monocytes # 0.7 (0-1.0) k/uL Eosinophils # 0.3 (0-0.7) k/uL Basophils # 0.1 (0-0.2) k/uL PT (9.0-12.0) sec INR (<1.2) APTT (22.0-30.0) sec Sodium 134 L (137-145) mmol/L Potassium 5.3 H (3.5-5.1) mmol/L Chloride 100 (98-107) mmol/L Carbon Dioxide 25 (22-30) mmol/L Anion Gap 9 mmol/L BUN 22 H (9-20) mg/dL Creatinine 0.73 (0.66-1.25) mg/dL Est GFR (CKD-EPI)AfAm >90 (>60 ml/min/1.73 sqM) Est GFR (CKD-EPI)NonAf >90 (>60 ml/min/1.73 sqM) Glucose 287 H (74-99) mg/dL Calcium 9.2 (8.4-10.2) mg/dL Total Bilirubin 0.8 (0.2-1.3) mg/dL AST 96 H (17-59) U/L ALT 66 (21-72) U/L Alkaline Phosphatase 113 (38-126) U/L Troponin I (0.000-0.034) ng/mL NT-Pro-B Natriuret Pep 2930 pg/mL Total Protein 7.5 (6.3-8.2) g/dL Albumin 4.1 (3.5-5.0) g/dL 01/31/19 01/31/19 Range/Units 14:42 16:28 WBC (3.8-10.6) k/uL RBC (4.30-5.90) m/uL Hgb (13.0-17.5) gm/dL Hct (39.0-53.0) % MCV (80.0-100.0) fL MCH (25.0-35.0) pg MCHC (31.0-37.0) g/dL RDW (11.5-15.5) % Plt Count (150-450) k/uL Neutrophils % % Lymphocytes % % Monocytes % % Eosinophils % % Basophils % % Neutrophils # (1.3-7.7) k/uL Lymphocytes # (1.0-4.8) k/uL Monocytes # (0-1.0) k/uL Eosinophils # (0-0.7) k/uL Basophils # (0-0.2) k/uL PT 10.2 (9.0-12.0) sec INR 1.0 (<1.2) APTT 24.5 (22.0-30.0) sec Sodium (137-145) mmol/L Potassium (3.5-5.1) mmol/L Chloride (98-107) mmol/L Carbon Dioxide (22-30) mmol/L Anion Gap mmol/L BUN (9-20) mg/dL Creatinine (0.66-1.25) mg/dL Est GFR (CKD-EPI)AfAm (>60 ml/min/1.73 sqM) Est GFR (CKD-EPI)NonAf (>60 ml/min/1.73 sqM) Glucose (74-99) mg/dL Calcium (8.4-10.2) mg/dL Total Bilirubin (0.2-1.3) mg/dL AST (17-59) U/L ALT (21-72) U/L Alkaline Phosphatase (38-126) U/L Troponin I <0.012 (0.000-0.034) ng/mL NT-Pro-B Natriuret Pep pg/mL Total Protein (6.3-8.2) g/dL Albumin (3.5-5.0) g/dL - Radiology Data Radiology results: report reviewed (Chest x-ray does show interstitial lung changes, likely pulmonary edema over multifocal pneumonia.) Disposition Clinical Impression: COPD (chronic obstructive pulmonary disease) Disposition: ADMITTED IP TO THIS HOSP Is patient prescribed a controlled substance at d/c from ED?: No Referrals: None,Stated [Primary Care Provider] - 1-2 days Decision Time: 16:58
[2019-01-31 14:59] LABS: Basophils # (A) 0.1 k/uL (0-0.2); Basophils % (A) 1 %; Eosinophils # (A) 0.3 k/uL (0-0.7); Eosinophils % (A) 3 %; HCT 45.5 % (39.0-53.0); Lymphocytes # (A) 2.2 k/uL (1.0-4.8); Lymphocytes % (A) 21 %; MCH 31.4 pg (25.0-35.0); MCHC 33.1 g/dL (31.0-37.0); MCV 94.8 fL (80.0-100.0); Mean Platelet Volume 8.2; Monocytes # (A) 0.7 k/uL (0-1.0); Monocytes % (A) 7 %; Neutrophils # (A) 6.9 k/uL (1.3-7.7); Neutrophils % (A) 67 %; Platelet Count 181 k/uL (150-450); RDW 12.9 % (11.5-15.5); WBC 10.3 k/uL (3.8-10.6)
[2019-01-31 15:07] LABS: ALT 66 U/L (21-72); AST 96 U/L (17-59); African American GFR (CKD) >90 (>60 ml/min/1.73 sqM); Albumin 4.1 g/dL (3.5-5.0); Alkaline Phosphatase 113 U/L (38-126); Anion Gap 9 mmol/L; Blood Urea Nitrogen 22 mg/dL (9-20); Calcium 9.2 mg/dL (8.4-10.2); Carbon Dioxide 25 mmol/L (22-30); Chloride 100 mmol/L (98-107); Glucose 287 mg/dL (74-99); Potassium 5.3 mmol/L (3.5-5.1); Sodium 134 mmol/L (137-145); Total Bilirubin 0.8 mg/dL (0.2-1.3); Total Protein 7.5 g/dL (6.3-8.2)
--- NOTE | 2019-01-31 15:17 | XR ---
EXAMINATION TYPE: XR chest 2V DATE OF EXAM: 01/31/2019 COMPARISON: 12/03/2018 HISTORY: Difficulty breathing TECHNIQUE: Frontal and lateral views of the chest are obtained. FINDINGS: Multifocal airspace disease is seen with a gradient effect predominating in the lower lung s. Mild interstitial pulmonary edema is also noted. Cardiomediastinal silhouette is mildly enlarged. Mild degenerative changes of the spine. Changes of COPD are again noted. IMPRESSION: Mild interstitial pulmonary edema and lower lobe predominant central bibasilar airspace disease, favored to represent confluent pulmonary edema given their distribution. Multifocal pneumoni a is a less likely consideration.
[2019-01-31 16:44] LABS: Partial Thromboplastin Time 24.5 sec (22.0-30.0); Prothrombin Time 10.2 sec (9.0-12.0)
[2019-01-31] MEDS ORDERED: LEVOFLOXACIN 750MG-D5W PMX 750 MG in DEXTROSE/WATER 1 150ML.BAG IVPB STA (17:01)
[2019-01-31] MEDS ORDERED: IPRATROPIUM-ALBUTEROL 3 ML NEB INHALATION PRN (17:02)
[2019-01-31] MEDS ORDERED: ENALAPRILAT 1.25 MG/ML 1 ML VIAL IVP STA (17:08)
[2019-01-31] MEDS ORDERED: GABAPENTIN 400 MG CAP PO PRN (17:08)
[2019-01-31] MEDS ORDERED: CARVEDILOL 12.5 MG TAB PO STA (17:08)
[2019-01-31] MEDS ORDERED: methylPREDNISolone SOD SUCCI 125 MG/2 ML VIAL IV SCH (18:00)
--- NOTE | 2019-01-31 18:07 | P.HPIM ---
History of Present Illness H&P Date: 01/31/19 The patient is a 59-year-old male with a PMH of coronary artery disease status post 1 stent, ischemic cardiomyopathy with systolic CHF (EF of 35-40%), COPD, bipolar disorder, diabetes mellitus, hypertension, IV drug use, and nicotine abuse presented to the ED with complaints of shortness of breath. The patient notes that he woke up this morning and and developed gradually worsening exertional dyspnea. He states that he also noticed his legs were swollen which is uncommon for him. He denied chest pain, nausea, vomiting, diaphoresis, palpitations, orthopnea, or PND. He subsequently came to the ED. The patient notes that he is currently actively using IV heroin with last use yesterday. The patient underwent an extensive evaluation in the ED with chest x-ray showing pulmonary edema along with chronic changes. EKG showed normal sinus rhythm at 81 bpm. Laboratory evaluation revealed no easy, 10.3, hemoglobin 15, platelets of 181, sodium 134, potassium 5.3, BUN 22, creatinine 0.73, glucose 287, troponins less than 0.012, BNP 2930. The patient is being admitted to the medicine service for acute CHF exacerbation. Review of Systems Pertinent positives and negatives as discussed in HPI, a complete review of systems was performed and all other systems are negative. Past Medical History Past Medical History: Coronary Artery Disease (CAD), Heart Failure, COPD, Diabetes Mellitus, Hyperlipidemia, Hypertension Additional Past Medical History / Comment(s): Pt recently admitted to [facility] on 11/26/18 with chest pain, elevated troponin, exacerbation COPD, uncontrolled diabetes, narcotic seeking/abuse. Other Hx: Chronic low back pain d/t vertebral fractures years ago as well as cervical pinched nerves, IDDM type II, neuropathy bilateral hands/legs and feet. History of Any Multi-Drug Resistant Organisms: None Reported Past Surgical History: Cholecystectomy, Heart Catheterization, Heart Catheterization With Stent Additional Past Surgical History / Comment(s): R heel I&D, colonoscopy. Past Anesthesia/Blood Transfusion Reactions: No Reported Reaction Date of Last Stent Placement:: 2011 Past Psychological History: Anxiety, Bipolar, Depression Smoking Status: Current every day smoker Past Alcohol Use History: None Reported Past Drug Use History: Heroin - Past Family History Mother Family Medical History: Cancer Additional Family Medical History / Comment(s): breast ca Father Family Medical History: Coronary Artery Disease (CAD), Diabetes Mellitus, Hypertension Additional Family Medical History / Comment(s): CABG at age 57 Medications and Allergies Home Medications Medication Instructions Recorded Confirmed Type Albuterol Inhaler [Ventolin Hfa 2 puff INHALATION RT-Q6H PRN 02/13/16 01/31/19 History Inhaler] Fluticasone/Salmeterol 1 puff INHALATION RT-DAILY 11/22/18 01/31/19 History [Fluticasone-Salmeterol 113-14] Nitroglycerin Sl Tabs [Nitrostat] 0.4 mg SL Q5M PRN 11/22/18 01/31/19 History Gabapentin [Neurontin] 800 mg PO TID PRN 11/26/18 01/31/19 History Hydrocodone/Acetaminophen [[place] 1 tab PO BID PRN 11/26/18 01/31/19 History 7.5-325] Ipratropium Nebulized [Atrovent 0.5 mg INHALATION RT-QID PRN 11/26/18 01/31/19 History Nebulized 0.2 MG/ML] Furosemide [Lasix] 80 mg PO BID@0900,1600 #60 tab 12/05/18 01/31/19 Rx Albuterol Nebulized [Ventolin 2.5 mg INHALATION RT-QID PRN 12/31/18 01/31/19 History Nebulized] Carvedilol [Coreg] 25 mg PO BID 12/31/18 01/31/19 History Allergies Allergy/AdvReac Type Severity Reaction Status Date / Time Penicillins Allergy Unknown Verified 01/31/19 14:51 Childhood Physical Exam Vitals: Vital Signs Temp Pulse Resp BP Pulse Ox 01/31/19 17:27 88 16 150/87 97 01/31/19 17:20 81 20 153/107 97 01/31/19 16:12 91 16 186/99 98 01/31/19 14:37 93 01/31/19 14:29 88 01/31/19 14:10 97.2 F L 88 20 172/111 98 Intake and Output 01/31/19 01/31/19 01/31/19 06:59 14:59 22:59 Other: Weight 63.503 kg General: In mild respiratory distress, appears older than stated age, normal weight Derm: Excoriations throughout with scabs diffusely, warm, dry Head: atraumatic, normocephalic, symmetric Eyes: EOMI, no lid lag, anicteric sclera, pupils equal round reactive to light ENT: Nose and ears atraumatic, no thrush, no pharyngeal erythema Neck: No thyromegaly, no cervical lymphadenopathy, trachea midline, supple Mouth: no lip lesion, mucus membranes moist, very poor dentition Cardiovascular: S1S2 reg, no murmur, positive posterior tibial pulse bilateral, 1+ bilateral lower extremity edema, capillary refill less than 2 seconds Lungs: Poor air entry bilaterally with mild wheezing, bibasilar rales also appreciated, no accessory muscle use Abdominal: soft, nontender to palpation, no guarding, no appreciable organomegaly, normal bowel sounds Ext: no gross muscle atrophy, muscle strength 5 out of 5 in all 4 extremities grossly, no contractures, Neuro: CN II-XI grossly intact, light touch intact all 4 extremities, finger to nose within normal limits, Psych: Alert, oriented, appropriate affect Results CBC & Chem 7: 01/31/19 14:42 01/31/19 14:42 Labs: Abnormal Lab Results - Last 24 Hours (Table) 01/31/19 Range/Units 14:42 Sodium 134 L (137-145) mmol/L Potassium 5.3 H (3.5-5.1) mmol/L BUN 22 H (9-20) mg/dL Glucose 287 H (74-99) mg/dL AST 96 H (17-59) U/L Assessment and Plan Plan: Shortness of breath, likely secondary to combination of acute systolic CHF and acute COPD exacerbation -Continue with IV Solu-Medrol, Lasix IV 40 q12 -Continue with DuoNeb's -Fluid restriction -Pulmonary consult -Intake and output -Daily weights -Supplemental oxygen Hyperkalemia -Hemolyzed sample Chronic conditions: hypertension, diabetes mellitus, hyperlipidemia, bipolar disorder -Lispro insulin sliding scale with blood glucose monitoring -Continue with home meds DVT prophylaxis -Heparin The patient is admitted with an anticipated greater than 2 midnight stay for evaluation of acute COPD and CHF exacerbations. CODE STATUS:Full Code Discussed with: Patient Anticipated discharge date: 2-[address]: Home A total of 40 minutes was spent on the care of this complex patient more than 50% of the time was spent in counseling and care coordination.
[2019-01-31] MEDS ORDERED: HYDROcodone/APAP 7.5-325MG 1 EACH TAB PO PRN (18:28)
[2019-01-31] MEDS: IPRATROPIUM-ALBUTEROL 3 ML NEB INHALATION SCH (20:01)
[2019-01-31 21:09] LABS: Glucose,Whole Blood 444 mg/dL (75-99)
[2019-01-31] MEDS: methylPREDNISolone SOD SUCCI 125 MG/2 ML VIAL IV SCH (21:19)
[2019-01-31] MEDS: FUROSEMIDE 10 MG/ML 4 ML VIAL IV SCH (21:28)
[2019-01-31] MEDS: INSULIN ASPART (NovoLOG) 100 UNIT/ML VIAL SQ SCH (21:39)
[2019-01-31] MEDS: CARVEDILOL 12.5 MG TAB PO SCH (21:52)
[2019-02-01 00:26] LABS: Glucose,Whole Blood 297 mg/dL (75-99)
[2019-02-01 01:19] VITALS: RESP 16
[2019-02-01] MEDS: methylPREDNISolone SOD SUCCI 125 MG/2 ML VIAL IV SCH ×2 (03:04→07:54)
[2019-02-01 07:18] LABS: Glucose,Whole Blood 343 mg/dL (75-99)
[2019-02-01] MEDS: IPRATROPIUM-ALBUTEROL 3 ML NEB INHALATION SCH ×2 (07:20→11:19)
[2019-02-01] MEDS: INSULIN ASPART (NovoLOG) 100 UNIT/ML VIAL SQ SCH ×2 (07:52→12:37)
[2019-02-01] MEDS: FUROSEMIDE 10 MG/ML 4 ML VIAL IV SCH (07:53)
[2019-02-01] MEDS: CARVEDILOL 12.5 MG TAB PO SCH (07:53)
[2019-02-01] MEDS ORDERED: SYMBICORT 160-4.5 MCG INHALER INHALATION SCH (08:00)
[2019-02-01 08:04] VITALS: BP 162/90; PULSE 75; TEMP 98.9
[2019-02-01] MEDS ORDERED: FUROSEMIDE 80 MG TAB PO SCH (09:00)
[2019-02-01 12:07] LABS: Glucose,Whole Blood 289 mg/dL (75-99)
--- NOTE | 2019-02-01 12:42 | P.DS ---
Providers Date of admission: 01/31/19 17:09 Expected date of discharge: 02/01/19 Attending physician: Mir Ward MD Consults: 01/31/19 17:02 Consult Physician Routine Consulting Provider: Angeline Moreno Consult Reason/Comments: dyspnea Do you want consulting provider notified?: Yes Primary care physician: Stated None Hospital Course: The patient is a 59-year-old male with a PMH of coronary artery disease status post 1 stent, ischemic cardiomyopathy with systolic CHF (EF of 35-40%), COPD, bipolar disorder, diabetes mellitus, hypertension, IV drug use, and nicotine abuse presented to the ED with complaints of shortness of breath. The patient notes that he woke up on morning of presentation and and developed gradually worsening exertional dyspnea. He states that he also noticed his legs were swollen which is uncommon for him. He denied chest pain, nausea, vomiting, diaphoresis, palpitations, orthopnea, or PND. He subsequently came to the ED. The patient noted that he is currently actively using IV heroin with last use the day prior. The patient underwent an extensive evaluation in the ED with chest x-ray showing pulmonary edema along with chronic changes. EKG showed normal sinus rhythm at 81 bpm. Laboratory evaluation revealed no easy, 10.3, hemoglobin 15, platelets of 181, sodium 134, potassium 5.3, BUN 22, creatinine 0.73, glucose 287, troponins less than 0.012, BNP 2930. The patient was admitted to the medicine service for acute CHF exacerbation. The patient was seen at the bedside on the day of discharge. He stated that his breathing has improved significantly. The patient however refused additional blood draws to asses his potassium levels. He also refused to provide urine for I/Os. The patient was evaluated by Pulmonary and recommendations were appreciated. The patient is being discharged home w/ Prednisone taper. Physical Examination General: Non-toxic, in no acute distress, appears older than stated age, normal weight HEENT: NC/AT, anicteric sclerae, moist conjunctiva, no lid-lag, PERRLA Cardiovascular: S1/S2 wnl, no murmurs, rubs, or gallops Lungs: Clear to auscultation, normal respiratory effort, no accessory muscle use Abdominal: Soft, non-tender, non-distended, no guarding, rebound, or rigidity Skin: Excoriations throughout with scabs diffusely, warm, dry Extremities: No edema or contractures Psychiatric: Alert and oriented to person, place and time, appropriate affect Neuro: CN II-XII grossly intact, Strength 5/5 in all 4 extremities, Speech intact, Sensation to light touch grossly intact throughout Discharge diagnosis: Acute COPD exacerbation; acute systolic CHF exacerbation; hypertension; diabetes mellitus; hyperlipidemia; bipolar disorder A total of 40 minutes of time were spent preparing this complex discharge summary. Patient Condition at Discharge: Stable Plan - Discharge Summary Discharge Rx Participant: No New Discharge Prescriptions: New predniSONE 0 mg PO DIRECTED #30 tab Continue Albuterol Inhaler [Ventolin Hfa Inhaler] 2 puff INHALATION RT-Q6H PRN PRN Reason: Shortness Of Breath Fluticasone/Salmeterol [Fluticasone-Salmeterol 113-14] 1 puff INHALATION RT- DAILY Nitroglycerin Sl Tabs [Nitrostat] 0.4 mg SL Q5M PRN PRN Reason: Chest Pain Gabapentin [Neurontin] 800 mg PO TID PRN PRN Reason: Pain Hydrocodone/Acetaminophen [[place] 7.5-325] 1 tab PO BID PRN PRN Reason: Pain Ipratropium Nebulized [Atrovent Nebulized 0.2 MG/ML] 0.5 mg INHALATION RT-QID PRN PRN Reason: Shortness Of Breath Furosemide [Lasix] 80 mg PO BID@0900,1600 #60 tab Albuterol Nebulized [Ventolin Nebulized] 2.5 mg INHALATION RT-QID PRN PRN Reason: Shortness Of Breath Carvedilol [Coreg] 25 mg PO BID Discharge Medication List Albuterol Inhaler [Ventolin Hfa Inhaler] 2 puff INHALATION RT-Q6H PRN 02/13/16 [History] Fluticasone/Salmeterol [Fluticasone-Salmeterol 113-14] 1 puff INHALATION RT- DAILY 11/22/18 [History] Nitroglycerin Sl Tabs [Nitrostat] 0.4 mg SL Q5M PRN 11/22/18 [History] Gabapentin [Neurontin] 800 mg PO TID PRN 11/26/18 [History] Hydrocodone/Acetaminophen [[place] 7.5-325] 1 tab PO BID PRN 11/26/18 [History] Ipratropium Nebulized [Atrovent Nebulized 0.2 MG/ML] 0.5 mg INHALATION RT-QID PRN 11/26/18 [History] Furosemide [Lasix] 80 mg PO BID@0900,1600 #60 tab 12/05/18 [Rx] Albuterol Nebulized [Ventolin Nebulized] 2.5 mg INHALATION RT-QID PRN 12/31/18 [History] Carvedilol [Coreg] 25 mg PO BID 12/31/18 [History] predniSONE 0 mg PO DIRECTED #30 tab 02/01/19 [Rx] Follow up Appointment(s)/Referral(s): None,Stated [Primary Care Provider] - 1-2 days Discharge Disposition: HOME SELF-CARE
--- NOTE | 2019-02-01 14:06 | P.CNPUL ---
History of Present Illness Consult date: 02/01/19 Requesting physician: Mir Ward Reason for consult: dyspnea Chief complaint: Shortness of breath History of present illness: This is a 59-year-old gentleman with no current primary care physician. He does have a history of COPD with chronic tobacco dependence, cardiomyopathy with ejection fraction 20-25%, coronary artery disease with previous stent placement, hypertension, hyperlipidemia, anxiety/depression, drug abuse including heroin and cocaine. He has been without his medications for some time now. He presented here to the emergency room yesterday with complaints of increasing haley rtness of breath. No real cough or congestion. No fever chills or night sweats. Just dyspneic on exertion. He is seen today in consultation on the regular medical floor. Awake and alert in no acute distress. Maintaining O2 saturations up to 99% on room air. He is afebrile. Hemodynamically stable. Chest x-ray showed mild interstitial pulmonary edema. Troponin negative times one. ProBNP 2930. Creatinine 0.73. Glucose 287. White count 10.3. Hemoglobin 15.0. He was treated with IV diuretics, IV Solu-Medrol, Symbicort and DuoNeb inhalations. He is breathing quite a bit easier today as compared to yesterday. On room air. Review of Systems REVIEW OF SYSTEMS: CONSTITUTIONAL: Denies any recent significant weight loss or weight gain. EYES: Denies change in vision. EARS, NOSE, MOUTH, THROAT: Denies headaches, denies sore throat. CARDIOVASCULAR: Denies chest pain, palpitations or syncopal episodes. RESPIRATORY: Positive for shortness of breath, cough, congestion no hemoptysis. GASTROINTESTINAL: Denies change in appetite, denies abdominal pain GENITOURINARY: Denies hematuria, denies infections. MUSKULOSKELETAL: Denies pain, denies swelling. INTEGUMENTARY: Denies rash, denies eczema. NEUROLOGICAL: Denies recent memory loss, no recent seizure activity. PSYCHIATRIC: Denies anxiety, denies depression. HEMATOLOGIC/LYMPHATIC: Denies anemia, denies enlarged lymph nodes. Past Medical History Past Medical History: Coronary Artery Disease (CAD), Heart Failure, COPD, Diabetes Mellitus, Hyperlipidemia, Hypertension Additional Past Medical History / Comment(s): Pt recently admitted to [facility] on 11/26/18 with chest pain, elevated troponin, exacerbation COPD, uncontrolled diabetes, narcotic seeking/abuse. Other Hx: Chronic low back pain d/t vertebral fractures years ago as well as cervical pinched nerves, IDDM type II, neuropathy bilateral hands/legs and feet. History of Any Multi-Drug Resistant Organisms: None Reported Past Surgical History: Cholecystectomy, Heart Catheterization, Heart Catheterization With Stent Additional Past Surgical History / Comment(s): R heel I&D, colonoscopy. Past Anesthesia/Blood Transfusion Reactions: No Reported Reaction Date of Last Stent Placement:: 2011 Past Psychological History: Anxiety, Bipolar, Depression Smoking Status: Current every day smoker Past Alcohol Use History: None Reported Past Drug Use History: Heroin - Past Family History Mother Family Medical History: Cancer Additional Family Medical History / Comment(s): breast ca Father Family Medical History: Coronary Artery Disease (CAD), Diabetes Mellitus, Hypertension Additional Family Medical History / Comment(s): CABG at age 57 Medications and Allergies Home Medications Medication Instructions Recorded Confirmed Type Albuterol Inhaler [Ventolin Hfa 2 puff INHALATION RT-Q6H PRN 02/13/16 01/31/19 History Inhaler] Fluticasone/Salmeterol 1 puff INHALATION RT-DAILY 11/22/18 01/31/19 History [Fluticasone-Salmeterol 113-14] Nitroglycerin Sl Tabs [Nitrostat] 0.4 mg SL Q5M PRN 11/22/18 01/31/19 History Gabapentin [Neurontin] 800 mg PO TID PRN 11/26/18 01/31/19 History Hydrocodone/Acetaminophen [[place] 1 tab PO BID PRN 11/26/18 01/31/19 History 7.5-325] Ipratropium Nebulized [Atrovent 0.5 mg INHALATION RT-QID PRN 11/26/18 01/31/19 History Nebulized 0.2 MG/ML] Furosemide [Lasix] 80 mg PO BID@0900,1600 #60 tab 12/05/18 01/31/19 Rx Albuterol Nebulized [Ventolin 2.5 mg INHALATION RT-QID PRN 12/31/18 01/31/19 History Nebulized] Carvedilol [Coreg] 25 mg PO BID 12/31/18 01/31/19 History predniSONE 0 mg PO DIRECTED #30 tab 02/01/19 Rx Allergies Allergy/AdvReac Type Severity Reaction Status Date / Time Penicillins Allergy Unknown Verified 01/31/19 14:51 Childhood Physical Exam Vitals: Vital Signs Temp Pulse Pulse Resp BP BP Pulse Ox 02/01/19 07:59 16 02/01/19 07:14 98.9 F 75 16 162/90 99 02/01/19 04:03 16 02/01/19 01:16 16 02/01/19 00:14 98.6 F 73 14 135/73 94 L 01/31/19 21:30 72 18 155/93 97 01/31/19 20:30 18 01/31/19 20:11 90 01/31/19 20:02 92 96 01/31/19 19:00 98.3 F 79 15 135/81 95 01/31/19 17:27 88 16 150/87 97 01/31/19 17:20 81 20 153/107 97 01/31/19 16:12 91 16 186/99 98 01/31/19 14:37 93 01/31/19 14:29 88 01/31/19 14:10 97.2 F L 88 20 172/111 98 Intake and Output 01/31/19 02/01/19 02/01/19 22:59 06:59 14:59 Intake Total 180 Output Total 540 Balance -540 180 Intake: Oral 180 Output: Urine 540 Other: # Voids 2 1 Weight 63.1 kg GENERAL EXAM: Frail, disheveled 5-year-old gentleman appears older than his stated age. Alert, comfortable in no apparent distress. On room air. HEAD: Normocephalic. EYES: Normal reaction of pupils, equal size. NOSE: Clear with pink turbinates. THROAT: No erythema or exudates. Poor dentition. NECK: No masses, no JVD. CHEST: No chest wall deformity. LUNGS: Equal air entry with no crackles, wheeze, rhonchi or dullness. Dimin ished. CVS: S1 and S2 normal with no audible murmur, regular rhythm. ABDOMEN: No hepatosplenomegaly, normal bowel sounds, no guarding or rigidity. SPINE: No scoliosis or deformity SKIN: No rashes CENTRAL NERVOUS SYSTEM: No focal deficits, tone is normal in all 4 extremities. EXTREMITIES: There is no peripheral edema. No clubbing, no cyanosis. Peripheral pulses are intact. Results - Laboratory Findings CBC and BMP: 01/31/19 14:42 01/31/19 14:42 PT/INR, D-dimer PT 10.2 sec (9.0-12.0) 01/31/19 16:28 INR 1.0 (<1.2) 01/31/19 16:28 Abnormal lab findings: Abnormal Labs 01/31/19 01/31/19 02/01/19 14:42 20:57 00:12 Sodium 134 L Potassium 5.3 H BUN 22 H Glucose 287 H POC Glucose (mg/dL) 444 H 297 H AST 96 H 02/01/19 02/01/19 07:14 11:56 Sodium Potassium BUN Glucose POC Glucose (mg/dL) 343 H 289 H AST - Diagnostic Findings Chest x-ray: image reviewed Assessment and Plan Assessment: Impression: #1 Acute exacerbation of systolic congestive heart failure in a patient with an ejection fraction 25-30% #2 Acute exacerbation of chronic obstructive pulmonary disease. #3 Chronic tobacco dependence. #4 History of drug use including heroin, marijuana and cocaine #5 History of coronary artery disease with previous stent placement. #6 History of hypertension. #7 History of hyperlipidemia. #8 History of medication noncompliance. Plan: The patient was seen and evaluated by Dr. Padilla. He is cleared for discharge from the pulmonary standpoint. Continue Symbicort and DuoNeb inhalations. C omplete a prednisone burst and taper starting at 40 mg daily for 4 days. He is encouraged to find a primary care physician and educated regarding the importance of medication compliance and complete tobacco cessation. I, the cosigning physician, performed a history & physical examination of the patient. Lungs sounds are clear but diminished. Maintaining good O2 saturations in the 90s on room air. I discussed the assessment and plan of care with my nurse practitioner, Urszula Xie. I attest to the above note as dictated by her.
== END 2019-02-01 14:46 | disposition home or self-care (01) ==
LOC: EC 14:07 → 4SSUR 17:09
PROVIDERS: ADMIT Internal Medicine; ATTEND Internal Medicine
DX: J44.1 Chronic obstructive pulmonary disease with (acute) exacerbation (principal); I11.0 Hypertensive heart disease with heart failure; I50.21 Acute systolic (congestive) heart failure; E11.40 Type 2 diabetes mellitus with diabetic neuropathy, unspecified; G58.8 Other specified mononeuropathies; E78.5 Hyperlipidemia, unspecified; F31.9 Bipolar disorder, unspecified; I25.10 Atherosclerotic heart disease of native coronary artery without angina pectoris; Z95.5 Presence of coronary angioplasty implant and graft; F17.200 Nicotine dependence, unspecified, uncomplicated; F41.9 Anxiety disorder, unspecified; G89.29 Other chronic pain; M54.9 Dorsalgia, unspecified; G62.9 Polyneuropathy, unspecified; E87.5 Hyperkalemia; I25.5 Ischemic cardiomyopathy; F14.10 Cocaine abuse, uncomplicated; F11.10 Opioid abuse, uncomplicated; Z90.49 Acquired absence of other specified parts of digestive tract; Z91.19 Patient's noncompliance with other medical treatment and regimen; Z91.14 Patient's other noncompliance with medication regimen; Z79.899 Other long term (current) drug therapy; Z79.891 Long term (current) use of opiate analgesic; Z88.0 Allergy status to penicillin; Z80.3 Family history of malignant neoplasm of breast; Z83.3 Family history of diabetes mellitus; Z82.49 Family history of ischemic heart disease and other diseases of the circulatory system
CPT/HCPCS: 96376 ×2; 96366 ×2; 96375 ×2; 96365; 99285; 36415; 94640 ×2; 93005; 83880; 80053; 84484; 85025; 85610; 85730; 87040; 71046; G0378 ×2; J1940 ×2; J2930 ×2; J1956

== ENCOUNTER 2019-03-27 09:02 | Observation (INO) | payer OTHER ==
[2019-03-27] MEDS ORDERED: ASPIRIN 81 MG PO STA (09:16)
[2019-03-27] MEDS ORDERED: NITROGLYCERIN SL TABS 0.4 MG TAB SUBLINGUAL STA ×3 (09:16)
--- NOTE | 2019-03-27 09:28 | ED ---
General Adult HPI - General Chief complaint: Chest Pain Stated complaint: STANLEY Time Seen by Provider: 03/27/19 09:05 Source: patient, EMS, RN notes reviewed Mode of arrival: EMS Limitations: no limitations - History of Present Illness Initial comments: Patient is a pleasant 59-year-old male presenting to the emergency Department with complaints of dyspnea and chest discomfort. Chest discomfort is anterior feels sharp. Patient complains of difficulty in breathing. Dyspnea is similar to previous CHF. Patient states he only has 20% of heart function. Patient denies any new leg pain or leg swelling. Patient has chronic diffuse pain which is unchanged. Patient does use heroin. Patient stopped using heroin a few months ago however did use again this past week secondary to his chronic pain. Patient states he has previously been advised not to use hearing is a can cause heart problems however continues to use. No known fevers. No nausea vomiting. - Related Data Home Medications Medication Instructions Recorded Confirmed No Known Home Medications 03/27/19 03/27/19 Allergies Allergy/AdvReac Type Severity Reaction Status Date / Time Penicillins Allergy Unknown Verified 03/27/19 09:32 Childhood Review of Systems ROS Statement: Those systems with pertinent positive or pertinent negative responses have been documented in the HPI. ROS Other: All systems not noted in ROS Statement are negative. Constitutional: Denies: fever Eyes: Denies: eye pain ENT: Denies: ear pain Respiratory: Reports: cough, dyspnea Cardiovascular: Reports: chest pain Endocrine: Denies: fatigue Gastrointestinal: Denies: abdominal pain Genitourinary: Denies: dysuria Musculoskeletal: Denies: back pain Skin: Denies: rash Neurological: Denies: headache Past Medical History Past Medical History: Coronary Artery Disease (CAD), Heart Failure, COPD, Diabetes Mellitus, Hyperlipidemia, Hypertension, Myocardial Infarction ([place]) Additional Past Medical History / Comment(s): Pt recently admitted to [facility] on 11/26/18 with chest pain, elevated troponin, exacerbation COPD, uncontrolled diabetes, narcotic seeking/abuse. Other Hx: Chronic low back pain d/t vertebral fractures years ago as well as cervical pinched nerves, IDDM type II, neuropathy bilateral hands/legs and feet, hep c History of Any Multi-Drug Resistant Organisms: None Reported Past Surgical History: Cholecystectomy, Heart Catheterization, Heart Catheterization With Stent Additional Past Surgical History / Comment(s): R heel I&D, colonoscopy. Past Anesthesia/Blood Transfusion Reactions: No Reported Reaction Date of Last Stent Placement:: 2011 Past Psychological History: Anxiety, Bipolar, Depression Smoking Status: Current every day smoker Past Alcohol Use History: None Reported Past Drug Use History: Heroin - Past Family History Mother Family Medical History: Cancer Additional Family Medical History / Comment(s): breast ca Father Family Medical History: Coronary Artery Disease (CAD), Diabetes Mellitus, Hypertension Additional Family Medical History / Comment(s): CABG at age 57 General Exam Limitations: no limitations General appearance: alert, in no apparent distress Head exam: Present: normocephalic Eye exam: Present: normal appearance Neck exam: Present: normal inspection Respiratory exam: Present: normal lung sounds bilaterally. Absent: chest wall tenderness Cardiovascular Exam: Present: regular rate, normal rhythm Expanded Peripheral pulses: 2+: Radial (R), Radial (L), Dorsalis Pedis (R), Dorsalis Pedis (L) GI/Abdominal exam: Present: soft. Absent: tenderness Extremities exam: Present: normal inspection Neurological exam: Present: alert Psychiatric exam: Present: normal affect, normal mood Skin exam: Present: normal color, other (Patient does have diffuse old skin lesions/scars consistent with history of heroin use) Course Vital Signs 03/27/19 03/27/19 03/27/19 09:05 09:16 09:39 Temperature 97.9 F Pulse Rate 106 H 92 Pulse Rate [ 106 H [employer] ] Respiratory 18 18 Rate Blood Pressure 162/113 144/94 O2 Sat by Pulse 100 100 Oximetry EKG Findings - EKG Comments: EKG Findings:: Normal sinus rhythm 100. AK 154. QRS 82. QT 342. QTC 441. Normal axis. LVH with repolarization changes. Nonspecific T waves. Medical Decision Making - Medical Decision Making Patient reevaluated and resting comfortably in bed, no chest discomfort. Patient updated on results and plan. Case was discussed in detail with Dr. Loyola, who will admit covering for hospital call. - Lab Data Result diagrams: 03/27/19 09:20 03/27/19 09:15 Lab Results 03/27/19 03/27/19 03/27/19 Range/Units 09:15 09:15 09:15 WBC (3.8-10.6) k/uL RBC (4.30-5.90) m/uL Hgb (13.0-17.5) gm/dL Hct (39.0-53.0) % MCV (80.0-100.0) fL MCH (25.0-35.0) pg MCHC (31.0-37.0) g/dL RDW (11.5-15.5) % Plt Count (150-450) k/uL Neutrophils % % Lymphocytes % % Monocytes % % Eosinophils % % Basophils % % Neutrophils # (1.3-7.7) k/uL Lymphocytes # (1.0-4.8) k/uL Monocytes # (0-1.0) k/uL Eosinophils # (0-0.7) k/uL Basophils # (0-0.2) k/uL PT 10.1 (9.0-12.0) sec INR 0.9 (<1.2) APTT 27.3 (22.0-30.0) sec D-Dimer 0.59 (<0.60) mg/L FEU Sodium 135 L (137-145) mmol/L Potassium 4.6 (3.5-5.1) mmol/L Chloride 101 (98-107) mmol/L Carbon Dioxide 25 (22-30) mmol/L Anion Gap 9 mmol/L BUN 15 (9-20) mg/dL Creatinine 0.76 (0.66-1.25) mg/dL Est GFR (CKD-EPI)AfAm >90 (>60 ml/min/1.73 sqM) Est GFR (CKD-EPI)NonAf >90 (>60 ml/min/1.73 sqM) Glucose 272 H (74-99) mg/dL Calcium 9.2 (8.4-10.2) mg/dL Magnesium 1.8 (1.6-2.3) mg/dL Total Bilirubin 0.5 (0.2-1.3) mg/dL AST 48 (17-59) U/L ALT 49 (21-72) U/L Alkaline Phosphatase 80 (38-126) U/L Creatine Kinase 59 (55-170) U/L CK-MB (CK-2) 1.8 (0.0-2.4) ng/mL Troponin I 0.014 (0.000-0.034) ng/mL NT-Pro-B Natriuret Pep pg/mL Total Protein 6.9 (6.3-8.2) g/dL Albumin 3.7 (3.5-5.0) g/dL 03/27/19 03/27/19 Range/Units 09:20 09:20 WBC 10.0 (3.8-10.6) k/uL RBC 4.54 (4.30-5.90) m/uL Hgb 14.1 (13.0-17.5) gm/dL Hct 41.1 (39.0-53.0) % MCV 90.7 (80.0-100.0) fL MCH 31.1 (25.0-35.0) pg MCHC 34.3 (31.0-37.0) g/dL RDW 12.9 (11.5-15.5) % Plt Count 229 (150-450) k/uL Neutrophils % 72 % Lymphocytes % 19 % Monocytes % 4 % Eosinophils % 2 % Basophils % 1 % Neutrophils # 7.2 (1.3-7.7) k/uL Lymphocytes # 1.9 (1.0-4.8) k/uL Monocytes # 0.4 (0-1.0) k/uL Eosinophils # 0.2 (0-0.7) k/uL Basophils # 0.1 (0-0.2) k/uL PT (9.0-12.0) sec INR (<1.2) APTT (22.0-30.0) sec D-Dimer (<0.60) mg/L FEU Sodium (137-145) mmol/L Potassium (3.5-5.1) mmol/L Chloride (98-107) mmol/L Carbon Dioxide (22-30) mmol/L Anion Gap mmol/L BUN (9-20) mg/dL Creatinine (0.66-1.25) mg/dL Est GFR (CKD-EPI)AfAm (>60 ml/min/1.73 sqM) Est GFR (CKD-EPI)NonAf (>60 ml/min/1.73 sqM) Glucose (74-99) mg/dL Calcium (8.4-10.2) mg/dL Magnesium (1.6-2.3) mg/dL Total Bilirubin (0.2-1.3) mg/dL AST (17-59) U/L ALT (21-72) U/L Alkaline Phosphatase (38-126) U/L Creatine Kinase (55-170) U/L CK-MB (CK-2) (0.0-2.4) ng/mL Troponin I (0.000-0.034) ng/mL NT-Pro-B Natriuret Pep 8160 pg/mL Total Protein (6.3-8.2) g/dL Albumin (3.5-5.0) g/dL - Radiology Data Radiology results: image reviewed (Chest x-ray shows interstitial changes) Disposition Clinical Impression: Congestive heart failure Disposition: ADMITTED IP TO THIS HOSP Is patient prescribed a controlled substance at d/c from ED?: No Referrals: None,Stated [Primary Care Provider] - 1-2 days Decision Time: 10:29
[2019-03-27 09:29] LABS: Basophils # (A) 0.1 k/uL (0-0.2); Basophils % (A) 1 %; Eosinophils # (A) 0.2 k/uL (0-0.7); Eosinophils % (A) 2 %; HCT 41.1 % (39.0-53.0); HGB 14.1 gm/dL (13.0-17.5); Lymphocytes # (A) 1.9 k/uL (1.0-4.8); Lymphocytes % (A) 19 %; MCH 31.1 pg (25.0-35.0); MCHC 34.3 g/dL (31.0-37.0); MCV 90.7 fL (80.0-100.0); Mean Platelet Volume 7.5; Monocytes # (A) 0.4 k/uL (0-1.0); Monocytes % (A) 4 %; Neutrophils # (A) 7.2 k/uL (1.3-7.7); Neutrophils % (A) 72 %; Platelet Count 229 k/uL (150-450); RBC 4.54 m/uL (4.30-5.90); RDW 12.9 % (11.5-15.5)
[2019-03-27 09:35] LABS: ALT 49 U/L (21-72); AST 48 U/L (17-59); African American GFR (CKD) >90 (>60 ml/min/1.73 sqM); Albumin 3.7 g/dL (3.5-5.0); Alkaline Phosphatase 80 U/L (38-126); Anion Gap 9 mmol/L; Blood Urea Nitrogen 15 mg/dL (9-20); Calcium 9.2 mg/dL (8.4-10.2); Carbon Dioxide 25 mmol/L (22-30); Chloride 101 mmol/L (98-107); Creatine Kinase 59 U/L (55-170); Glucose 272 mg/dL (74-99); Magnesium 1.8 mg/dL (1.6-2.3); Potassium 4.6 mmol/L (3.5-5.1); Sodium 135 mmol/L (137-145); Total Bilirubin 0.5 mg/dL (0.2-1.3); Total Protein 6.9 g/dL (6.3-8.2)
--- NOTE | 2019-03-27 09:35 | XR ---
EXAMINATION TYPE: XR chest 2V DATE OF EXAM: 03/27/2019 HISTORY: Chest Pain. REFERENCE: Previous study dated 01/31/2019. FINDINGS: There is improved aeration of both lungs. The lungs now almost clear. Minimal interstitial change persists. The heart is not enlarged. Pleural spaces are clear. IMPRESSION: MARKED IMPROVEMENT IN THE INTERSTITIAL CHANGE PRESENT IN BOTH LUNGS.
[2019-03-27 09:41] LABS: D-Dimer 0.59 mg/L FEU (<0.60); INR 0.9 (<1.2); Partial Thromboplastin Time 27.3 sec (22.0-30.0); Prothrombin Time 10.1 sec (9.0-12.0)
[2019-03-27 10:04] LABS: Creatine Kinase MB 1.8 ng/mL (0.0-2.4); Troponin I 0.014 ng/mL (0.000-0.034)
[2019-03-27] MEDS ORDERED: NITROGLYCERIN SL TABS 0.4 MG TAB SUBLINGUAL PRN (10:29)
[2019-03-27] MEDS: HYDROmorphone 0.5 MG/0.5 ML SYRINGE IVP PRN ×4 (11:19→23:28)
[2019-03-27] MEDS: METOPROLOL TARTRATE 25 MG TAB PO SCH ×2 (11:27→21:18)
[2019-03-27] MEDS ORDERED: NITROGLYCERIN OINT 1 INCH/GM PACKET TOPICAL SCH (12:00)
[2019-03-27 12:01] LABS: Glucose,Whole Blood 241 mg/dL (75-99)
--- NOTE | 2019-03-27 12:24 | P.CRDCN ---
History of Present Illness Consult date: 03/27/19 Requesting physician: Eric Loyola Reason for Consult (text): CHF, Chest pain Chief complaint: dyspnea, chest pain History of present illness: This is a 67-year-old gentleman who does not follow regularly in the office. Has a known history of cardiomyopathy with a known ejection fraction of 30-35% according to echocardiogram done in October of this year, hypertension, hyperlipidemia, diabetes, nicotine dependence, substance abuse including marijuana and heroin. He admits to using heroin last in December and smoking marijuana couple weeks ago however documentations in his chart notes heroin use about a week ago. Patient underwent cardiac catheterization by Dr. Beth in January 2016 showed intermediate in-stent restenosis involving the RCA and mild to moderate nonobstructive CAD involving the left coronary system. He presented to the emergency department with complaints of sudden onset of difficulty breathing while he was sleeping as well as episodes of intermittent chest discomfort lasting about 30 seconds at a time ongoing over the last several days. Apparently the patient ran out of his medications and has not taken anything for months. EKG on admission shows sinus rhythm with nonspecific ST-T wave abnormalities. Liver trivially show normal CBC, sodium of 135, potassium 4.6, BUN of 15 and creatinine 0.76. Troponin has been negative 1. NT proBNP is elevated at 8160 with most recent NT proBNP in January of this year of 2930. Chest x-ray on admission showed marked improvement in the interstitial change present in both lungs. He has been resumed on aspirin 325 mg by mouth daily and metoprolol titrate 25 mg by mouth twice a day. Heart rate has been elevated, 90s to low 100s, sinus and blood pressure has been elevated 162/113, 144/94 and 164/107. Past Medical History Past Medical History: Coronary Artery Disease (CAD), Heart Failure, COPD, Diabetes Mellitus, Hyperlipidemia, Hypertension, Myocardial Infarction ([place]) Additional Past Medical History / Comment(s): Pt recently admitted to [facility] on 11/26/18 with chest pain, elevated troponin, exacerbation COPD, uncontrolled diabetes, narcotic seeking/abuse. Other Hx: Chronic low back pain d/t vertebral fractures years ago as well as cervical pinched nerves, IDDM type II, neuropathy bilateral hands/legs and feet, hep c History of Any Multi-Drug Resistant Organisms: None Reported Past Surgical History: Cholecystectomy, Heart Catheterization, Heart Catheterization With Stent Additional Past Surgical History / Comment(s): R heel I&D, colonoscopy. Past Anesthesia/Blood Transfusion Reactions: No Reported Reaction Date of Last Stent Placement:: 2011 Past Psychological History: Anxiety, Bipolar, Depression Smoking Status: Current every day smoker Past Alcohol Use History: None Reported Past Drug Use History: Heroin - Past Family History Mother Family Medical History: Cancer Additional Family Medical History / Comment(s): breast ca Father Family Medical History: Coronary Artery Disease (CAD), Diabetes Mellitus, Hypertension Additional Family Medical History / Comment(s): CABG at age 57 Medications and Allergies Home Medications Medication Instructions Recorded Confirmed Type No Known Home Medications 03/27/19 03/27/19 History Allergies Allergy/AdvReac Type Severity Reaction Status Date / Time Penicillins Allergy Unknown Verified 03/27/19 09:32 Childhood Physical Exam Vitals: Vital Signs Temp Pulse Pulse Resp BP Pulse Ox 03/27/19 10:52 98.8 F 97 18 164/107 100 03/27/19 09:39 92 18 144/94 100 03/27/19 09:16 106 H 03/27/19 09:05 97.9 F 106 H 18 162/113 100 Intake and Output 03/26/19 03/27/19 03/27/19 22:59 06:59 14:59 Other: Weight 64.864 kg PHYSICAL EXAMINATION: HEENT: Head is atraumatic, normocephalic. Pupils equal, round. Neck is supple. There is no elevated jugular venous pressure. Poor dentition, missing teeth HEART EXAMINATION: Heart sounds regular, S1 and S2 normal. No murmur or gallop heard. CHEST EXAMINATION: Lungs are clear to auscultation and precussion. No chest wall tenderness is noted on palpation or with deep breathing. ABDOMEN: Soft, nontender. Bowel sounds are heard. No organomegaly noted. EXTREMITIES: Diminished peripheral pulses with evidence of trace peripheral edema and no calf tenderness noted. NEUROLOGIC patient is awake, alert and oriented x3. Results 03/27/19 09:20 03/27/19 09:15 Cardiac Enzymes 03/27/19 03/27/19 Range/Units 09:15 09:15 AST 48 (17-59) U/L CK-MB (CK-2) 1.8 (0.0-2.4) ng/mL Troponin I 0.014 (0.000-0.034) ng/mL Coagulation 03/27/19 Range/Units 09:15 PT 10.1 (9.0-12.0) sec APTT 27.3 (22.0-30.0) sec CBC 03/27/19 Range/Units 09:20 WBC 10.0 (3.8-10.6) k/uL RBC 4.54 (4.30-5.90) m/uL Hgb 14.1 (13.0-17.5) gm/dL Hct 41.1 (39.0-53.0) % Plt Count 229 (150-450) k/uL Comprehensive Metabolic Panel 03/27/19 Range/Units 09:15 Sodium 135 L (137-145) mmol/L Potassium 4.6 (3.5-5.1) mmol/L Chloride 101 (98-107) mmol/L Carbon Dioxide 25 (22-30) mmol/L BUN 15 (9-20) mg/dL Creatinine 0.76 (0.66-1.25) mg/dL Glucose 272 H (74-99) mg/dL Calcium 9.2 (8.4-10.2) mg/dL AST 48 (17-59) U/L ALT 49 (21-72) U/L Alkaline Phosphatase 80 (38-126) U/L Total Protein 6.9 (6.3-8.2) g/dL Albumin 3.7 (3.5-5.0) g/dL Current Medications Generic Name Dose Route Start Last Admin Trade Name Freq PRN Reason Stop Dose Admin Aspirin 325 mg 03/28/19 09:00 Aspirin PO DAILY MIRLANDE Hydromorphone HCl 0.5 mg 03/27/19 11:06 03/27/19 11:19 Dilaudid IVP 0.5 mg Q4HR PRN Administration Pain Metoprolol Tartrate 25 mg 03/27/19 10:45 03/27/19 11:27 Lopressor PO 25 mg BID MIRLANDE Administration Nitroglycerin 0.4 mg 03/27/19 10:29 Nitrostat SUBLINGUAL Q5M PRN Chest Pain Nitroglycerin 1 inch 03/27/19 12:00 03/27/19 11:27 Nitro-Bid Oint TOPICAL 1 inch Q6HR MIRLANDE Administration Intake and Output 03/26/19 03/27/19 03/27/19 22:59 06:59 14:59 Other: Weight 64.864 kg Patient Weight 03/28/19 06:59 Weight 64.864 kg 03/27/19 09:20 03/27/19 09:15 Assessment and Plan Assessment: #1 dose of dyspnea and intermittent chest discomfort with elevated NT proBNP #2 known history of cardiomyopathy with an ejection fraction of 30-35% #3 CAD stenting in the past, last cardiac catheterization 2015 showing intermediate in-stent restenosis of the RCA and mild to moderate nonobstructive CAD involving the left coronary system #4 hypertension #5 hyperlipidemia #6 diabetes mellitus #7 noncompliance #8 substance abuse, IV drug abuser with heroin Plan: From cardiology perspective, we will add an CATHIE inhibitor and aldactone. Will decrease aspirin to 81 mg daily. Discontinue nitropaste. Continue to follow troponins. Monitor renal function and electrolytes. Consult social work. Further recommendations to follow. COLD PATCHER note has been reviewed, I agree with a documented findings and plan of care. Patient was seen and examined.
--- NOTE | 2019-03-27 15:19 | HP ---
HISTORY AND PHYSICAL CHIEF COMPLAINT: This patient is a 59-year-old male, noncompliant, ran out of all of his medicines, cardiomyopathy with ejection fraction of 30% to 35%, hypertension, diabetes mellitus, nicotine addiction, substance abuse, marijuana, heroin. He admits to using heroin last December and smoking marijuana a couple of weeks ago. says he admitted using heroin a week ago in the notes. He had cardiac catheterization in 2016 and stent for restenosis of the RCA, mild to moderate nonobstructive coronary artery disease of the left coronary system. He came in with significant shortness of breath as well as intermittent chest discomfort, 30 seconds at a time. EKG shows sinus rhythm, but apparently he has chronic atrial fibrillation, intermittent. Sodium was 135, potassium 4.6. BNP was 8160. Blood pressure was 140s to 160s over 90s to 100s. PAST MEDICAL HISTORY: 1. Coronary artery disease. 2. Heart failure. 3. COPD. 4. Diabetes mellitus. 5. Dyslipidemia. 6. Hypertension. 7. Myocardial infarction. 8. Broken back and neck, he states. 9. History of vertebral fractures. 10.Cervical pinched nerves. FAMILY HISTORY: Mother with cancer of the breast. Father with coronary artery disease, diabetes mellitus, hypertension, history of anxiety, bipolar, depression. SOCIAL HISTORY: Current everyday smoker and heroin user. Cocaine in the past. PAST SURGICAL HISTORY: 1. Right heel I&D. 2. Colonoscopy. 3. Heart catheterizations. 4. Cholecystectomy. He has bilateral neuropathy in bilateral hands and feet and legs, type 2 diabetes mellitus, hepatitis C. ALLERGIES: PENICILLIN. PHYSICAL EXAMINATION: VITAL SIGNS: Temperature 98.8, pulse 92 to 97, respiratory rate 16 to 18, blood pressure 140s to 160s over 94 to 107. Oxygen is . Thin, cachectic, lying on her side. Pupils equal, round, reactive. HEART: S1, S2. No murmurs, rubs, gallops. ABDOMEN: Soft, nontender. LUNGS: Clear except for some mild wheeze x4. HEMATOLOGIC: Negative Homans. White count 10, hemoglobin 14.1. Sodium 135, potassium 4.6. Weight is 64 kg. ASSESSMENT: 1. Acute systolic congestive heart failure. 2. Chronic obstructive pulmonary disease exacerbation. 3. Ischemic cardiomyopathy. 4. Coronary artery disease with stenting. 5. Dyslipidemia. 6. Hypertension. 7. Diabetes mellitus. 8. Noncompliance. 9. Substance abuse. 10.Degenerative disc disease in the lumbar and cervical spine. Cardiology will be consulted. Continue giving pain medication. Follow along in future. Please see further orders. MMODL / IJN: [id number] /
[2019-03-27] MEDS: FUROSEMIDE 40 MG TAB PO SCH (15:35)
[2019-03-27] MEDS: LISINOPRIL 5 MG TAB PO SCH ×2 (15:35→21:18)
[2019-03-27] MEDS: SPIRONOLACTONE 25 MG TAB PO SCH (15:35)
[2019-03-27 16:41] LABS: Glucose,Whole Blood 268 mg/dL (75-99)
[2019-03-27] MEDS: INSULIN ASPART (NovoLOG) 100 UNIT/ML VIAL SQ SCH ×2 (18:04→21:18)
[2019-03-27 20:42] LABS: Glucose,Whole Blood 150 mg/dL (75-99)
[2019-03-27] MEDS: INSULIN DETEMIR (LEVEMIR) 100 UNIT/ML SYR SQ SCH (21:18)
[2019-03-27 23:52] LABS: Hemoglobin A1C 8.8 % (4.0-6.0)
[2019-03-28] MEDS: HYDROmorphone 0.5 MG/0.5 ML SYRINGE IVP PRN ×5 (03:36→20:19)
[2019-03-28 06:44] LABS: Glucose,Whole Blood 118 mg/dL (75-99)
[2019-03-28] MEDS: INSULIN ASPART (NovoLOG) 100 UNIT/ML VIAL SQ SCH ×4 (06:45→20:19)
[2019-03-28 06:57] LABS: African American GFR (CKD) >90 (>60 ml/min/1.73 sqM); Anion Gap 7 mmol/L; Blood Urea Nitrogen 19 mg/dL (9-20); Calcium 9.2 mg/dL (8.4-10.2); Carbon Dioxide 28 mmol/L (22-30); Chloride 101 mmol/L (98-107); Cholesterol 193 mg/dL (<200); Glucose 123 mg/dL (74-99); HDL Cholesterol 69 mg/dL (40-60); LDL Cholesterol,Calculated 102 mg/dL (0-99); Potassium 4.2 mmol/L (3.5-5.1); Sodium 136 mmol/L (137-145); Triglycerides 108 mg/dL (<150)
[2019-03-28] MEDS: FUROSEMIDE 40 MG TAB PO SCH (07:52)
[2019-03-28] MEDS: LISINOPRIL 5 MG TAB PO SCH (07:52)
[2019-03-28] MEDS: METOPROLOL TARTRATE 25 MG TAB PO SCH ×2 (07:53→20:18)
[2019-03-28] MEDS: ASPIRIN 81 MG PO SCH (07:53)
[2019-03-28] MEDS: SPIRONOLACTONE 25 MG TAB PO SCH (07:53)
[2019-03-28] MEDS ORDERED: ASPIRIN 325 MG TAB PO SCH (09:00)
[2019-03-28 11:22] VITALS: BMI 19.9
[2019-03-28 11:52] LABS: Glucose,Whole Blood 164 mg/dL (75-99)
--- NOTE | 2019-03-28 12:17 | PN ---
PROGRESS NOTE Mr. Ruvalcaba is a 59-year-old male with known history of severe cardiomyopathy who presented with symptoms of progressive dyspnea. Unfortunately, he was not taking any medication on presentation. He has history of coronary artery disease with no evidence of significant progression by cardiac catheterization in January 2016. The patient has known history of heroin and marijuana use in the past as well history of chronic tobacco use. He is feeling better. He denies any chest pain. He denies any dizziness or palpitation. He denies any nausea. He continues to be at this time on aspirin 81 mg daily, furosemide 40 mg daily, lisinopril 5 mg twice a day, metoprolol tartrate 25 mg twice a day and Aldactone 25 mg daily. PHYSICAL EXAMINATION: Blood pressure 143/89 with a heart rate in the 60s. Lungs with decreased air exchange. No wheezes. HEART: Regular rate and rhythm S1, S2. No S3. No rub. ABDOMEN: Soft and nontender. EXTREMITIES: No edema. LAB DATA: Lab data revealed a BUN and creatinine of 19 and 0.81, potassium 4.2, cholesterol 193 with an LDL of 102. IMPRESSION: 1. Symptoms of congestive heart failure with known cardiomyopathy. 2. History of coronary artery disease, stable. 3. Noncompliance. 4. History of drug use. RECOMMENDATIONS: From the cardiac standpoint, I will increase the dose of his CATHIE inhibitor and depending on his rate, the beta brett dose can be increased further. I will add to his regimen a statin. Continue his medical regimen and depending on his progress, further recommendations will be made. MMODL / IJN: [id number] /
[2019-03-28] MEDS: ATORVASTATIN 40 MG TAB PO SCH (12:33)
[2019-03-28 16:16] LABS: Glucose,Whole Blood 189 mg/dL (75-99)
--- NOTE | 2019-03-28 18:08 | PN ---
PROGRESS NOTE Severe cardiomyopathy, progressive dyspnea, noncompliant with medications as an outpatient. Cardiac catheterization in 2016. Feeling a little bit better. Denies chest pain. He remains on lisinopril, furosemide, aspirin, metoprolol tartrate, Aldactone. Blood pressure 140s over 80s. Cardiovascular S1-S2. Lungs transmitted upper sounds. Hematology negative Homans. Psych: Fair mood and affect. Ophthalmologic: Pupils equal, round, react to light and accommodation. ASSESSMENT AND PLAN: 1. Congestive heart failure. 2. Systolic heart failure. 3. Cardiomyopathy. 4. History of coronary artery disease. 5. Noncompliance. 6. Drug. 7. Continue the CATHIE inhibitor. 8. Beta brett can be increased further. 9. Add statin. 10.Possible discharge home tomorrow. MMODL / IJN: [id number] /
[2019-03-28] MEDS: INSULIN DETEMIR (LEVEMIR) 100 UNIT/ML SYR SQ SCH (20:18)
[2019-03-28] MEDS: LISINOPRIL 10 MG TAB PO SCH (20:18)
[2019-03-28 20:33] LABS: Glucose,Whole Blood 190 mg/dL (75-99)
[2019-03-29] MEDS: HYDROmorphone 0.5 MG/0.5 ML SYRINGE IVP PRN ×4 (00:17→13:18)
[2019-03-29 05:34] LABS: African American GFR (CKD) >90 (>60 ml/min/1.73 sqM); Anion Gap 8 mmol/L; Blood Urea Nitrogen 24 mg/dL (9-20); Carbon Dioxide 27 mmol/L (22-30); Chloride 101 mmol/L (98-107); Glucose 198 mg/dL (74-99); Sodium 136 mmol/L (137-145)
[2019-03-29 06:07] LABS: Glucose,Whole Blood 185 mg/dL (75-99)
[2019-03-29] MEDS: INSULIN ASPART (NovoLOG) 100 UNIT/ML VIAL SQ SCH ×2 (06:23→13:16)
[2019-03-29] MEDS: LISINOPRIL 10 MG TAB PO SCH (09:08)
[2019-03-29] MEDS: FUROSEMIDE 40 MG TAB PO SCH (09:08)
[2019-03-29] MEDS: ASPIRIN 81 MG PO SCH (09:08)
[2019-03-29] MEDS: ATORVASTATIN 40 MG TAB PO SCH (09:08)
[2019-03-29] MEDS: SPIRONOLACTONE 25 MG TAB PO SCH (09:08)
[2019-03-29] MEDS: METOPROLOL TARTRATE 25 MG TAB PO SCH (09:08)
[2019-03-29 12:23] LABS: Glucose,Whole Blood 144 mg/dL (75-99)
[2019-03-29 12:35] VITALS: RESP 19; TEMP 98.6
[2019-03-29 14:38] VITALS: BP 130/82; PULSE 66
== END 2019-03-29 14:35 | disposition home or self-care (01) ==
LOC: EC 09:02 → 3SCARD 10:29
PROVIDERS: ADMIT Family Medicine; ATTEND Family Medicine
DX: I11.0 Hypertensive heart disease with heart failure (principal); I50.21 Acute systolic (congestive) heart failure; I25.5 Ischemic cardiomyopathy; Z95.5 Presence of coronary angioplasty implant and graft; I25.10 Atherosclerotic heart disease of native coronary artery without angina pectoris; J44.9 Chronic obstructive pulmonary disease, unspecified; I25.2 Old myocardial infarction; T50.906A Underdosing of unspecified drugs, medicaments and biological substances, initial encounter; Z53.21 Procedure and treatment not carried out due to patient leaving prior to being seen by health care provider; F17.200 Nicotine dependence, unspecified, uncomplicated; F41.9 Anxiety disorder, unspecified; F31.9 Bipolar disorder, unspecified; M50.30 Other cervical disc degeneration, unspecified cervical region; M51.36 Other intervertebral disc degeneration, lumbar region; J44.1 Chronic obstructive pulmonary disease with (acute) exacerbation; E11.40 Type 2 diabetes mellitus with diabetic neuropathy, unspecified; G62.9 Polyneuropathy, unspecified; F11.10 Opioid abuse, uncomplicated; F12.90 Cannabis use, unspecified, uncomplicated; B19.20 Unspecified viral hepatitis C without hepatic coma; Z91.14 Patient's other noncompliance with medication regimen; E78.5 Hyperlipidemia, unspecified; R79.89 Other specified abnormal findings of blood chemistry; G89.29 Other chronic pain; M54.5 Low back pain; T82.855A Stenosis of coronary artery stent, initial encounter; Z90.49 Acquired absence of other specified parts of digestive tract; Z88.0 Allergy status to penicillin; Z83.3 Family history of diabetes mellitus; Z82.49 Family history of ischemic heart disease and other diseases of the circulatory system; Z81.8 Family history of other mental and behavioral disorders; Z80.3 Family history of malignant neoplasm of breast
CPT/HCPCS: 96376 ×3; 96374; 99285; 36415; 94760; 93005; 85379; 83880; 80061; 80053; 80048 ×2; 84443; 82550; 82553; 83735; 84484; 85025; 85610; 85730; 83036; 71046; G0378 ×3; J1170 ×3

== ENCOUNTER 2019-04-06 05:18 | Inpatient (IN) | payer OTHER ==
--- NOTE | 2019-04-06 05:44 | ED ---
SOB HPI - General Chief Complaint: Shortness of Breath Stated Complaint: STANLEY Time Seen by Provider: 04/06/19 05:22 Source: patient, EMS Mode of arrival: EMS Limitations: no limitations - History of Present Illness Initial Comments: This patient is 59-year-old man with history of CHF who states that he has not had any antihypertensives or other medications due to being homeless. Patient states that over the course of tonight he noticed that his breathing was worse. He was at a gas station when he became so short of breath that they had called EMS. Patient does acknowledge occasional cough. No chest pain. MD Complaint: shortness of breath, cough -: hour(s) Consistency: constant Improves With: oxygen Worsens With: lying flat Known History Of: congestive heart failure Associated Symptoms: denies other symptoms Treatments Prior to Arrival: oxygen - Related Data Home Medications Medication Instructions Recorded Confirmed No Known Home Medications 03/27/19 03/27/19 Allergies Allergy/AdvReac Type Severity Reaction Status Date / Time Penicillins Allergy Unknown Verified 03/27/19 09:32 Childhood Review of Systems ROS Statement: Those systems with pertinent positive or pertinent negative responses have been documented in the HPI. ROS Other: All systems not noted in ROS Statement are negative. Constitutional: Denies: fever, chills Respiratory: Reports: cough, dyspnea. Denies: hemoptysis Cardiovascular: Denies: chest pain, palpitations, edema, syncope Gastrointestinal: Denies: abdominal pain, vomiting, diarrhea Genitourinary: Denies: dysuria, hematuria Musculoskeletal: Denies: back pain Skin: Denies: rash Neurological: Denies: headache, weakness Past Medical History Past Medical History: Coronary Artery Disease (CAD), Heart Failure, COPD, Diabet es Mellitus, Hyperlipidemia, Hypertension, Myocardial Infarction ([place]) Additional Past Medical History / Comment(s): Pt recently admitted to [facility] on 11/26/18 with chest pain, elevated troponin, exacerbation COPD, uncontrolled diabetes, narcotic seeking/abuse. Other Hx: Chronic low back pain d/t vertebral fractures years ago as well as cervical pinched nerves, IDDM type II, neuropathy bilateral hands/legs and feet, hep c Last Myocardial Infarction Date:: October 2018 History of Any Multi-Drug Resistant Organisms: None Reported Past Surgical History: Cholecystectomy, Heart Catheterization, Heart Catheterization With Stent Additional Past Surgical History / Comment(s): R heel I&D, colonoscopy. Past Anesthesia/Blood Transfusion Reactions: No Reported Reaction Date of Last Stent Placement:: 2011 Past Psychological History: Anxiety, Bipolar, Depression Smoking Status: Current every day smoker Past Alcohol Use History: None Reported Past Drug Use History: Heroin - Past Family History Mother Family Medical History: Cancer Father Family Medical History: Coronary Artery Disease (CAD), Diabetes Mellitus, Hypertension General Exam Limitations: no limitations General appearance: alert, in distress Head exam: Present: atraumatic, normocephalic Eye exam: Present: normal appearance Neck exam: Present: normal inspection Respiratory exam: Present: respiratory distress (Acapnia), rales (Bilateral bases). Absent: wheezes, rhonchi, accessory muscle use Cardiovascular Exam: Present: regular rate, normal rhythm, normal heart sounds. Absent: systolic murmur, diastolic murmur, rubs, gallop GI/Abdominal exam: Present: soft. Absent: distended, tenderness, guarding, rebound, rigid Extremities exam: Present: normal inspection, normal capillary refill. Absent: pedal edema, calf tenderness Back exam: Present: normal inspection. Absent: CVA tenderness (R), CVA tenderne ss (L) Neurological exam: Present: alert Skin exam: Present: warm, dry, intact, normal color. Absent: rash Course Vital Signs 04/06/19 04/06/19 04/06/19 05:19 05:45 06:10 Temperature 98.0 F Pulse Rate 104 H 105 H Respiratory 28 H 22 20 Rate Blood Pressure 144/108 148/79 O2 Sat by Pulse 93 L 98 Oximetry Medical Decision Making - Lab Data Result diagrams: 04/06/19 05:45 04/06/19 05:45 Lab Results 04/06/19 04/06/19 04/06/19 Range/Units 05:45 05:45 05:45 WBC 10.8 H (3.8-10.6) k/uL RBC 4.45 (4.30-5.90) m/uL Hgb 14.1 (13.0-17.5) gm/dL Hct 41.3 (39.0-53.0) % MCV 92.8 (80.0-100.0) fL MCH 31.8 (25.0-35.0) pg MCHC 34.2 (31.0-37.0) g/dL RDW 12.9 (11.5-15.5) % Plt Count 183 (150-450) k/uL Neutrophils % 72 % Lymphocytes % 20 % Monocytes % 5 % Eosinophils % 2 % Basophils % 1 % Neutrophils # 7.8 H (1.3-7.7) k/uL Lymphocytes # 2.1 (1.0-4.8) k/uL Monocytes # 0.6 (0-1.0) k/uL Eosinophils # 0.2 (0-0.7) k/uL Basophils # 0.1 (0-0.2) k/uL PT (9.0-12.0) sec INR (<1.2) APTT (22.0-30.0) sec D-Dimer (<0.60) mg/L FEU Sodium 135 L (137-145) mmol/L Potassium 4.3 (3.5-5.1) mmol/L Chloride 101 (98-107) mmol/L Carbon Dioxide 26 (22-30) mmol/L Anion Gap 8 mmol/L BUN 14 (9-20) mg/dL Creatinine 0.81 (0.66-1.25) mg/dL Est GFR (CKD-EPI)AfAm >90 (>60 ml/min/1.73 sqM) Est GFR (CKD-EPI)NonAf >90 (>60 ml/min/1.73 sqM) Glucose 217 H (74-99) mg/dL Calcium 9.2 (8.4-10.2) mg/dL Magnesium 1.9 (1.6-2.3) mg/dL Total Bilirubin 0.7 (0.2-1.3) mg/dL AST 44 (17-59) U/L ALT 53 (21-72) U/L Alkaline Phosphatase 78 (38-126) U/L Troponin I (0.000-0.034) ng/mL NT-Pro-B Natriuret Pep pg/mL Total Protein 7.0 (6.3-8.2) g/dL Albumin 3.8 (3.5-5.0) g/dL Serum Alcohol <10 mg/dL Acetone, Qual Negative (Negative) 04/06/19 04/06/19 04/06/19 Range/Units 05:45 05:45 05:45 WBC (3.8-10.6) k/uL RBC (4.30-5.90) m/uL Hgb (13.0-17.5) gm/dL Hct (39.0-53.0) % MCV (80.0-100.0) fL MCH (25.0-35.0) pg MCHC (31.0-37.0) g/dL RDW (11.5-15.5) % Plt Count (150-450) k/uL Neutrophils % % Lymphocytes % % Monocytes % % Eosinophils % % Basophils % % Neutrophils # (1.3-7.7) k/uL Lymphocytes # (1.0-4.8) k/uL Monocytes # (0-1.0) k/uL Eosinophils # (0-0.7) k/uL Basophils # (0-0.2) k/uL PT 10.3 (9.0-12.0) sec INR 1.0 (<1.2) APTT 27.3 (22.0-30.0) sec D-Dimer 0.56 (<0.60) mg/L FEU Sodium (137-145) mmol/L Potassium (3.5-5.1) mmol/L Chloride (98-107) mmol/L Carbon Dioxide (22-30) mmol/L Anion Gap mmol/L BUN (9-20) mg/dL Creatinine (0.66-1.25) mg/dL Est GFR (CKD-EPI)AfAm (>60 ml/min/1.73 sqM) Est GFR (CKD-EPI)NonAf (>60 ml/min/1.73 sqM) Glucose (74-99) mg/dL Calcium (8.4-10.2) mg/dL Magnesium (1.6-2.3) mg/dL Total Bilirubin (0.2-1.3) mg/dL AST (17-59) U/L ALT (21-72) U/L Alkaline Phosphatase (38-126) U/L Troponin I <0.012 (0.000-0.034) ng/mL NT-Pro-B Natriuret Pep 8000 pg/mL Total Protein (6.3-8.2) g/dL Albumin (3.5-5.0) g/dL Serum Alcohol mg/dL Acetone, Qual (Negative) - EKG Data -: EKG Interpreted by [facility] EKG shows normal: sinus rhythm, axis (Normal), intervals (Normal) Rate: tachycardia (Rate 104 bpm) Interpretation: nonspecific ST-T wave changes, LVH Disposition Clinical Impression: CHF (congestive heart failure) Disposition: ADMITTED IP TO THIS HOSP Condition: Fair Referrals: None,Stated [Primary Care Provider] - 1-2 days
--- NOTE | 2019-04-06 06:06 | XR ---
EXAMINATION TYPE: XR chest 1V portable DATE OF EXAM: 04/06/2019 COMPARISON: 03/27/2019 HISTORY: Short of breath TECHNIQUE: Single frontal view of the chest is obtained. FINDINGS: There is mild pulmonary interstitial edema. Heart size is normal. There are chest leads. T here is no pleural effusion. IMPRESSION: There is new mild pulmonary interstitial edema compared to last exam. This could relate to acute heart failure or acute pneumonia.
[2019-04-06 06:09] LABS: Basophils # (A) 0.1 k/uL (0-0.2); Basophils % (A) 1 %; Eosinophils # (A) 0.2 k/uL (0-0.7); Eosinophils % (A) 2 %; HCT 41.3 % (39.0-53.0); HGB 14.1 gm/dL (13.0-17.5); Lymphocytes # (A) 2.1 k/uL (1.0-4.8); Lymphocytes % (A) 20 %; MCH 31.8 pg (25.0-35.0); MCHC 34.2 g/dL (31.0-37.0); MCV 92.8 fL (80.0-100.0); Mean Platelet Volume 7.2; Monocytes # (A) 0.6 k/uL (0-1.0); Monocytes % (A) 5 %; Neutrophils # (A) 7.8 k/uL (1.3-7.7); Neutrophils % (A) 72 %; Platelet Count 183 k/uL (150-450); RBC 4.45 m/uL (4.30-5.90); RDW 12.9 % (11.5-15.5); WBC 10.8 k/uL (3.8-10.6)
[2019-04-06 06:10] LABS: ALT 53 U/L (21-72); AST 44 U/L (17-59); African American GFR (CKD) >90 (>60 ml/min/1.73 sqM); Albumin 3.8 g/dL (3.5-5.0); Alcohol <10 mg/dL; Alkaline Phosphatase 78 U/L (38-126); Anion Gap 8 mmol/L; Blood Urea Nitrogen 14 mg/dL (9-20); Calcium 9.2 mg/dL (8.4-10.2); Carbon Dioxide 26 mmol/L (22-30); Chloride 101 mmol/L (98-107); Glucose 217 mg/dL (74-99); Magnesium 1.9 mg/dL (1.6-2.3); Potassium 4.3 mmol/L (3.5-5.1); Sodium 135 mmol/L (137-145); Total Bilirubin 0.7 mg/dL (0.2-1.3)
[2019-04-06 06:29] LABS: D-Dimer 0.56 mg/L FEU (<0.60); Partial Thromboplastin Time 27.3 sec (22.0-30.0); Prothrombin Time 10.3 sec (9.0-12.0)
[2019-04-06] MEDS ORDERED: HYDROcodone/APAP 5-325MG 1 EACH TAB PO STA (07:28)
[2019-04-06] MEDS: FUROSEMIDE 10 MG/ML 4 ML VIAL IV SCH ×2 (07:29→20:36)
[2019-04-06] MEDS: NITROGLYCERIN OINT 1 INCH/GM PACKET TOPICAL SCH ×4 (07:30→23:26)
[2019-04-06] MEDS ORDERED: KETOROLAC 30 MG/ML 1 ML VIAL IVP STA (07:39)
[2019-04-06] MEDS ORDERED: INFLUENZA VACCINE (6 MOS+) 60 MCG/0.5 ML SYRINGE IM ONE (09:36)
[2019-04-06 11:53] LABS: Glucose,Whole Blood 257 mg/dL (75-99)
[2019-04-06] MEDS: INSULIN ASPART (NovoLOG) 100 UNIT/ML VIAL SQ SCH ×3 (12:58→20:36)
[2019-04-06] MEDS ORDERED: IPRATROPIUM-ALBUTEROL 3 ML NEB INHALATION PRN (13:53)
--- NOTE | 2019-04-06 13:54 | P.HPIM ---
History of Present Illness This is a pleasant 59 years old male with past medical history of coronary artery disease, heart failure, COPD, diabetes mellitus, hyperlipidemia, hypertension, diabetic neuropathy. Presents because of dyspnea, with undetectable phlegm and normal color. His symptoms has been going on for a few days. However he denies chest pain. Patient has chronic shoulder and back pain that: 4 years as per patient. Patient is asking for Dilaudid or any shots for his pain. No abdominal pain, no nausea vomiting or change in bowel habits. Vitals are stable. Left showing unremarkable CBC, BMP, liver enzymes except for mild leukocytosis of L 10.8 k. . D-dimer is negative with 0.56, with reference range less than 0.60. 2 troponin status is 0.012 and the second one 0.014. ProBNP is elevated at 8000. EKG showing sinus tachycardia at [address]-T changes, with left ventricular hypertrophy. Chest x-ray showing mild pulmonary edema this could be related to acute heart failure or acute pneumonia In the emergency room patient was started on Lasix 40 mg twice daily Review of Systems CONSTITUTIONAL: No fever, no malaise, no fatigue. HEENT: No recent visual problems or hearing problems. Denied any sore throat. CARDIOVASCULAR: No orthopnea, PND, no palpitations, no syncope. PULMONARY: No shortness of breath, no cough, no hemoptysis. GASTROINTESTINAL: No diarrhea, no nausea, no vomiting, no abdominal pain. Normoactive bowel sounds. NEUROLOGICAL: No headaches, no weakness, no numbness. HEMATOLOGICAL: Denies any bleeding or petechiae. GENITOURINARY: Denies any burning micturition, frequency, or urgency. MUSCULOSKELETAL/RHEUMATOLOGICAL: Denies any joint pain, swelling, or any muscle pain. ENDOCRINE: Denies any polyuria or polydipsia. Past Medical History Past Medical History: Coronary Artery Disease (CAD), Heart Failure, COPD, Diabetes Mellitus, Hyperlipidemia, Hypertension, Myocardial Infarction ([place]) Additional Past Medical History / Comment(s): Pt recently admitted to [facility] on 03/27/19 CHF. Other Hx: Ischemic cardiomyopathy with EF in September 2018 at 35%, PVCs, chronic low back pain d/t vertebral fractures years ago as well as cervical pinched nerves, DDD, IDDM type II, neuropathy bilateral hands/legs and feet, hep c Last Myocardial Infarction Date:: October 2018 History of Any Multi-Drug Resistant Organisms: None Reported Past Surgical History: Cholecystectomy, Heart Catheterization, Heart Catheterization With Stent Additional Past Surgical History / Comment(s): R heel I&D, colonoscopy. Past Anesthesia/Blood Transfusion Reactions: No Reported Reaction Date of Last Stent Placement:: 2011 Smoking Status: Current every day smoker - Past Family History Mother Family Medical History: Cancer Father Family Medical History: Coronary Artery Disease (CAD), Diabetes Mellitus, Hypertension Medications and Allergies Home Medications Medication Instructions Recorded Confirmed Type No Known Home Medications 03/27/19 04/06/19 History Allergies Allergy/AdvReac Type Severity Reaction Status Date / Time Penicillins Allergy Unknown Verified 04/06/19 07:44 Childhood Physical Exam Vitals: Vital Signs Temp Pulse Pulse Resp BP BP Pulse Ox 04/06/19 12:00 99.3 F 95 20 152/87 99 04/06/19 09:48 98.6 F 90 20 157/87 100 04/06/19 08:31 101 H 18 139/89 99 04/06/19 08:00 99 18 169/102 99 04/06/19 07:10 99.3 F 112 H 18 169/102 99 04/06/19 06:10 105 H 20 148/79 98 04/06/19 05:45 22 04/06/19 05:19 98.0 F 104 H 28 H 144/108 93 L Intake and Output 04/05/19 04/06/19 04/06/19 22:59 06:59 14:59 Intake Total 444 Balance 444 Intake: Oral 444 Other: Weight 60.328 kg 60.328 kg GENERAL: The patient is alert and oriented x3, not in any acute distress. Well developed, well nourished. HEENT: Pupils are round and equally reacting to light. EOMI. No scleral icterus. No conjunctival pallor. Normocephalic, atraumatic. No pharyngeal erythema. No thyromegaly. CARDIOVASCULAR: S1 and S2 present. No murmurs, rubs, or gallops. -PULMONARY: Chest is clear to auscultation, no wheezing or crackles. Bilateral harsh crepitation. Patient is tachypneic ABDOMEN: Soft, nontender, nondistended, normoactive bowel sounds. No palpable organomegaly. MUSCULOSKELETAL: No joint swelling or deformity. EXTREMITIES: No cyanosis, clubbing, or pedal edema. NEUROLOGICAL: Gross neurological examination did not reveal any focal deficits. SKIN: No rashes. No petechiae Results CBC & Chem 7: 04/06/19 05:45 04/06/19 05:45 Labs: Abnormal Lab Results - Last 24 Hours (Table) 04/06/19 04/06/19 04/06/19 Range/Units 05:45 05:45 11:51 WBC 10.8 H (3.8-10.6) k/uL Neutrophils # 7.8 H (1.3-7.7) k/uL Sodium 135 L (137-145) mmol/L Glucose 217 H (74-99) mg/dL POC Glucose (mg/dL) 257 H (75-99) mg/dL Thrombosis Risk Factor Assmnt - Choose All That Apply Any of the Below Risk Factors Present?: Yes Each Factor Represents 1 point: Age 41-60 years, Heart failure (<1month) Other Risk Factors: No Other congenital or acquired thrombophilia - If yes, enter type in comment: No Thrombosis Risk Factor Assessment Total Risk Factor Score: 2 Thrombosis Risk Factor Assessment Level: Low Risk Assessment and Plan Assessment: Acute on chronic systolic congestive heart failure with ejection fraction 35% Possible acute bronchitis versus early pneumonia. History of coronary artery disease Type 2 diabetes mellitus Hypertension Hyperlipidemia The particular neuropathy COPD, not in acute exacerbation History of drug abuse, with accidental heroin overdose 2-3 months ago Plan: This is a pleasant 59 years old male who presents with acute CHF. Continue with diuretic, cardiology consult. There is also possibility of pneumonia. We'll start the patient on antibiotics, continue the breathing treatments. Labs and medication were reviewed.. Continue same treatment. Continue with symptomatic treatment. Resume home medication. Monitor lytes and vitals. DVT and GI prophylaxis. Further recommendations of the clinical course of the patient DVT prophylaxis: Subcutaneous heparin GI Prophylaxis: Pepcid PT/OT: Pending Prognosis is guarded
[2019-04-06] MEDS ORDERED: AZITHROMYCIN 500 MG in SODIUM CHLORIDE 0.9% 250 ML IVPB SCH (14:00)
[2019-04-06] MEDS: HEPARIN SODIUM,PORCINE 5,000 UNIT/ML 1 ML VIAL SQ SCH ×3 (14:19→20:36)
[2019-04-06] MEDS: LIDOCAINE 5% PATCH TOPICAL SCH (14:20)
[2019-04-06 17:28] LABS: Glucose,Whole Blood 219 mg/dL (75-99)
[2019-04-06 20:15] LABS: Glucose,Whole Blood 169 mg/dL (75-99)
[2019-04-06] MEDS: FAMOTIDINE 20 MG/2 ML VIAL IV SCH (20:37)
[2019-04-06] MEDS: ACETAMINOPHEN TAB 325 MG TAB PO PRN (23:27)
[2019-04-07 06:23] LABS: Basophils # (A) 0.1 k/uL (0-0.2); Basophils % (A) 1 %; Eosinophils # (A) 0.1 k/uL (0-0.7); Eosinophils % (A) 1 %; HCT 45.4 % (39.0-53.0); HGB 14.7 gm/dL (13.0-17.5); Lymphocytes % (A) 17 %; MCH 30.7 pg (25.0-35.0); MCHC 32.3 g/dL (31.0-37.0); MCV 94.9 fL (80.0-100.0); Mean Platelet Volume 7.9; Monocytes # (A) 0.6 k/uL (0-1.0); Monocytes % (A) 5 %; Neutrophils # (A) 8.9 k/uL (1.3-7.7); Neutrophils % (A) 75 %; Platelet Count 204 k/uL (150-450); RBC 4.78 m/uL (4.30-5.90)
[2019-04-07 06:26] LABS: Glucose,Whole Blood 242 mg/dL (75-99)
[2019-04-07] MEDS: INSULIN ASPART (NovoLOG) 100 UNIT/ML VIAL SQ SCH ×4 (06:29→20:28)
[2019-04-07] MEDS ORDERED: IOPAMIDOL CONTRAST (ORAL USE) VIAL PO PRN (08:02)
[2019-04-07] MEDS: KETOROLAC 30 MG/ML 1 ML VIAL IVP PRN ×3 (08:22→20:29)
[2019-04-07] MEDS: LORazepam 2 MG/ML INJ IV PRN ×3 (08:23→20:31)
--- NOTE | 2019-04-07 08:28 | P.PN ---
Subjective This is a pleasant 59 years old male with past medical history of coronary artery disease, heart failure, COPD, diabetes mellitus, hyperlipidemia, h ypertension, diabetic neuropathy. Presents because of dyspnea, with undetectable phlegm and normal color. His symptoms has been going on for a few days. However he denies chest pain. Patient has chronic shoulder and back pain that: 4 years as per patient. Patient is asking for Dilaudid or any shots for his pain. No abdominal pain, no nausea vomiting or change in bowel habits. Vitals are stable. Left showing unremarkable CBC, BMP, liver enzymes except for mild leukocytosis of L 10.8 k. . D-dimer is negative with 0.56, with reference range less than 0.60. 2 troponin status is 0.012 and the second one 0.014. ProBNP is elevated at 8000. EKG showing sinus tachycardia at [address]-T changes, with left ventricular hypertrophy. Chest x-ray showing mild pulmonary edema this could be related to acute heart failure or acute pneumonia In the emergency room patient was started on Lasix 40 mg twice daily 04/07/2019 Patient is a still tachypneic, he is agitated, he is complaining of from abdominal pain and tenderness. Is slightly tachycardic at 102-107, slightly hypertensive with blood pressure 163/110, patient verbalized suicidal forced to the staff and he told me "I'm sick of it, i am homeless". Patient is asking specifically about morphine and Dilaudid and he does not accept alternatives like nonsteroidal anti-inflammatory medication. And when he told he cannot get that he got agitated and he jumped out of the bed briskly, On examination patient has generalized abdominal pain and tenderness with guarding, however patient showing possible malingering affect. Patient says that he vomited but has not been monitored by the staff. I doubt the patient has acute abdomen given how quickly he jumped out of the bed and rushed to the door, before he coming back by himself. We will the patient on 1:1 observation, we'll ask for psychiatrist evaluation. And I discussed with the staff patient cannot leave AMA, and if he is doing going going to petition/cert him, however now he is willing to stay We will do computed tomography scan of the abdomen without contrast. Also we'll treat him for possible withdrawal from opioids, with NSAIDs, benzodiazepines, cl onidine. Review of systems CONSTITUTIONAL: No fever, no malaise, no fatigue. HEENT: No recent visual problems or hearing problems. Denied any sore throat. CARDIOVASCULAR: no palpitations, no syncope. PULMONARY: no hemoptysis. GASTROINTESTINAL: Normoactive bowel sounds. NEUROLOGICAL: No headaches, no weakness, no numbness. HEMATOLOGICAL: Denies any bleeding or petechiae. GENITOURINARY: Denies any burning micturition, frequency, or urgency. MUSCULOSKELETAL/RHEUMATOLOGICAL: Denies any joint pain, swelling, or any muscle pain. ENDOCRINE: Denies any polyuria or polydipsia. Active Medications Generic Name Dose Route Start Last Admin Trade Name Freq PRN Reason Stop Dose Admin Acetaminophen 325 mg 04/06/19 16:36 04/06/19 23:27 Tylenol Tab PO 325 mg Q6HR PRN Administration Fever and/ or Mild Pain Albuterol/Ipratropium 3 ml 04/06/19 13:53 04/06/19 20:31 Duoneb 0.5 Mg-3 Mg/3 Ml Soln INHALATION 3 ml RT-Q4H PRN Administration Shortness Of Breath Or Wheezing Aspirin 325 mg 04/07/19 09:00 Aspirin PO DAILY MIRLANDE Clonidine HCl 1 patch 04/07/19 09:00 Catapres-Tts 0.1mg Patch TRANSDERM Q7D MIRLANDE Famotidine 20 mg 04/06/19 21:00 04/06/19 20:37 Pepcid IV 20 mg Q12HR MIRLANDE Administration Furosemide 40 mg 04/06/19 09:00 04/06/19 20:36 Lasix IV 40 mg Q12HR MIRLANDE Administration Heparin Sodium (Porcine) 5,000 unit 04/06/19 13:45 04/06/19 20:36 Heparin SQ 5,000 unit Q12HR MIRLANDE Administration Azithromycin 500 mg/ Sodium 250 mls @ 250 mls/hr 04/06/19 14:00 04/06/19 16:45 Chloride IVPB 250 mls/hr Q24H MIRLANDE Administration Insulin Aspart 0 unit 04/06/19 17:30 04/07/19 06:29 Novolog SQ 3 unit ACHS MIRLANDE Administration Protocol Iopamidol 30 ml 04/07/19 08:02 Isovue-300 (For Oral Use) PO 04/08/19 08:[address] Scan Ketorolac Tromethamine 15 mg 04/07/19 08:01 Toradol IVP 04/11/19 08:01 Q6HR PRN MODERATE Pain Lidocaine 1 patch 04/06/19 14:00 04/06/19 14:20 Lidoderm TOPICAL Not Given DAILY MIRLANDE Lorazepam 1 mg 04/07/19 08:11 Ativan IV Q6HR PRN Anxiety Nitroglycerin 0.5 inch 04/06/19 09:00 04/06/19 23:26 Nitro-Bid Oint TOPICAL 0.5 inch QID MIRLANDE Administration Ondansetron HCl 4 mg 04/07/19 08:04 Zofran IVP Q6HR PRN Nausea And Vomiting Sodium Chloride 10 ml 04/06/19 09:00 04/06/19 20:37 Saline Flush IV 10 ml BID MIRLANDE Administration Objective - Vital Signs Vital signs: Vital Signs Temp 99 F 04/07/19 08:00 Pulse 107 H 04/07/19 08:00 Resp 20 04/07/19 08:00 BP 163/110 04/07/19 08:00 Pulse Ox 100 04/07/19 08:00 Intake & Output 04/06/19 04/07/19 04/07/19 18:59 06:59 18:59 Intake Total 934 222 Output Total 240 Balance 934 -18 Weight 60.328 kg 60.2 kg Intake: Intake, IV Titration 250 Amount Azithromycin 500 mg In 250 Sodium Chloride 0.9% 250 ml @ 250 mls/hr IVPB Q24H [facility] Rx#:[id number] Oral 684 222 Output: Urine 240 Other: Voiding Method Toilet Urinal - Exam GENERAL: The patient is alert and oriented x3, not in any acute distress. Well developed, well nourished. HEENT: Pupils are round and equally reacting to light. EOMI. No scleral icterus. No conjunctival pallor. Normocephalic, atraumatic. No pharyngeal erythema. No thyromegaly. CARDIOVASCULAR: S1 and S2 present. No murmurs, rubs, or gallops. PULMONARY: Chest is clear to auscultation, no wheezing or crackles. -ABDOMEN: Soft, generalized abdominal tenderness with guarding, no rebound tenderness (could be intentional), nondistended, normoactive bowel sounds. No palpable organomegaly. MUSCULOSKELETAL: No joint swelling or deformity. EXTREMITIES: No cyanosis, clubbing, or pedal edema. NEUROLOGICAL: Gross neurological examination did not reveal any focal deficits. SKIN: No rashes. no petechiae. - Labs CBC & Chem 7: 04/07/19 06:08 04/06/19 05:45 Labs: Abnormal Lab Results - Last 24 Hours (Table) 04/06/19 04/06/19 04/06/19 Range/Units 11:51 17:27 20:14 WBC (3.8-10.6) k/uL Neutrophils # (1.3-7.7) k/uL POC Glucose (mg/dL) 257 H 219 H 169 H (75-99) mg/dL 04/07/19 04/07/19 Range/Units 06:08 06:25 WBC 12.0 H (3.8-10.6) k/uL Neutrophils # 8.9 H (1.3-7.7) k/uL POC Glucose (mg/dL) 242 H (75-99) mg/dL Assessment and Plan Assessment: Acute on chronic systolic congestive heart failure with ejection fraction 35% Possible acute bronchitis versus early pneumonia. Suicidal ideation and agitation Asking for a opioid medication. Possible opioid withdrawal Abdominal pain and tenderness History of coronary artery disease Type 2 diabetes mellitus Hypertension Hyperlipidemia The particular neuropathy COPD, not in acute exacerbation History of drug abuse, with accidental heroin overdose 2-3 months ago Plan: This is a pleasant 59 years old male who presents with acute CHF. Continue with diuretic, cardiology consult. There is also possibility of pneumonia. We'll st art the patient on antibiotics, continue the breathing treatments. Consult pulmonary service. Call psychiatrist and keep sitter at bedside. Treat for possible opioid withdrawal with benzodiazepines, pain medication including NSAIDs, clonidine. We'll do a CAT scan of the abdominal pelvis for his abdominal pain Labs and medication were reviewed.. Continue same treatment. Continue with symptomatic treatment. Resume home medication. Monitor lytes and vitals. DVT and GI prophylaxis. Further recommendations of the clinical course of the patient DVT prophylaxis: Subcutaneous heparin GI Prophylaxis: Pepcid Prognosis is guarded
[2019-04-07] MEDS ORDERED: cloNIDine 0.1 MG/24HR PATCH TRANSDERM SCH (09:00)
[2019-04-07] MEDS ORDERED: ASPIRIN 325 MG TAB PO SCH (09:00)
[2019-04-07] MEDS: ONDANSETRON 4 MG/2 ML VIAL IVP PRN (10:32)
[2019-04-07] MEDS: FUROSEMIDE 10 MG/ML 4 ML VIAL IV SCH ×2 (10:32→20:29)
[2019-04-07] MEDS: FAMOTIDINE 20 MG/2 ML VIAL IV SCH ×2 (10:33→20:28)
[2019-04-07] MEDS: NITROGLYCERIN OINT 1 INCH/GM PACKET TOPICAL SCH ×2 (10:33→10:47)
[2019-04-07] MEDS: HEPARIN SODIUM,PORCINE 5,000 UNIT/ML 1 ML VIAL SQ SCH ×3 (10:33→20:29)
[2019-04-07] MEDS: LIDOCAINE 5% PATCH TOPICAL SCH (10:34)
--- NOTE | 2019-04-07 10:59 | CT ---
EXAMINATION TYPE: CT abdomen pelvis wo con DATE OF EXAM: 04/07/2019 COMPARISON: Chest x-ray 04/06/2019 HISTORY: Abdominal pain and tenderness CT DLP: 414.6 mGycm Automated exposure control for dose reduction was used. TECHNIQUE: Helical acquisition of images from the lung bases through the pelvis. FINDINGS: Lack of intravenous and oral contrast could compromise sensitivity. LUNG BASES: There is prominence of interstitium. Bilateral pleural effusions are present right greate r than left. There is some coronary artery calcification present. Correlate for possible pulmonary ve nous hypertension and interstitial edema as noted on chest x-ray. AORTA: Atherosclerotic calcifications are dense. LIVER/GB: Patient is post cholecystectomy. Liver shows no mass. PANCREAS: No significant abnormality is seen. SPLEEN: No significant abnormality is seen. ADRENALS: No significant abnormality is seen. KIDNEYS: Cortical cyst present at the upper pole the left kidney is likely, hypodense focus is presen t measuring approximately 16 mm. Exophytic lower pole hypodense focus measures 16 mm posteriorly. REPRODUCTIVE ORGANS: Prostate is enlarged. URINARY BLADDER: Some mild wall thickening could be due to chronic outlet obstruction.. BOWEL: There is some scattered diverticular changes. Suspect some colonic wall thickening in the sig moid colon, difficult to exclude a mucosal lesion. There is no evident bowel obstruction. Appendix is normal. FREE AIR: No Free Air is visible. ASCITES: None visible. PELVIC ADENOPATHY: None visualized. RETROPERITONEAL ADENOPATHY: No Retroperitoneal Adenopathy visible. OSSEOUS STRUCTURES: Degenerative disc changes noted in the lumbar spine IMPRESSION: Mild colonic wall thickening could be due to muscular hypertrophy, difficult to exclude a mucosal lesion within the colon, correlate to exclude colitis. Noncontrast exam. Postop change. Pulm onary venous hypertension and interstitial edema, coronary artery disease.
--- NOTE | 2019-04-07 11:24 | P.CRDCN ---
History of Present Illness Consult date: 04/07/19 Requesting physician: Michael E Sheet Consult reason: congestive heart failure Chief complaint: Shortness of breath History of present illness: This is a 67-year-old gentleman who does not follow regularly in the office. Has a known history of cardiomyopathy with a known ejection fraction of 30-35% according to echocardiogram done in October of this year, hypertension, hyperlipidemia, diabetes, nicotine dependence, substance abuse including marijuana and heroin. He admits to using heroin last in December and smoking marijuana couple weeks ago however documentations in his chart notes heroin use about a week ago. Patient underwent cardiac catheterization by Dr. Beth in January 2016 showed intermediate in-stent restenosis involving the RCA and mild to moderate nonobstructive CAD involving the left coronary system. He is currently homeless, has been getting progressively more and more short of breath, positive PND and orthopnea. Patient has not been taking any of his medications because he is homeless, he had a recent hospitalization just over one week ago with similar symptoms, and was treated for congestive heart failure exacerbation. Chest x-ray was performed which revealed new mild pulmonary interstitial edema as compared with prior exam. EKG shows a sinus tachycardia with nonspecific ST-T wave changes. Blood pressure 162/100, heart rate 116, temperature 99.0. White blood cell count 12.0, hemoglobin 14.7, platelet count 204. D-dimer 0.5. Sodium 135, potassium 4.3, BUN 14 and creatinine 0.8. BNP level 8000, troponins 0.012, 0.014, 0.015. Patient was started on IV Lasix in the emergency room as well as a clonidine patch, a full aspirin. We will start the patient on a beta brett, CATHIE inhibitor, and Aldactone. Social work consult patient has also been requested. Past Medical History Past Medical History: Coronary Artery Disease (CAD), Heart Failure, COPD, Diabetes Mellitus, Hyperlipidemia, Hypertension, Myocardial Infarction (CA) Additional Past Medical History / Comment(s): Pt recently admitted to [facility] on 03/27/19 CHF. Other Hx: Ischemic cardiomyopathy with EF in September 2018 at 35%, PVCs, chronic low back pain d/t vertebral fractures years ago as well as cervical pinched nerves, DDD, IDDM type II, neuropathy bilateral hands/legs and feet, hep c Last Myocardial Infarction Date:: October 2018 History of Any Multi-Drug Resistant Organisms: None Reported Past Surgical History: Cholecystectomy, Heart Catheterization, Heart Catheterization With Stent Additional Past Surgical History / Comment(s): R heel I&D, colonoscopy. Past Anesthesia/Blood Transfusion Reactions: No Reported Reaction Date of Last Stent Placement:: 2011 Smoking Status: Current every day smoker - Past Family History Mother Family Medical History: Cancer Father Family Medical History: Coronary Artery Disease (CAD), Diabetes Mellitus, Hypertension Medications and Allergies Home Medications Medication Instructions Recorded Confirmed Type No Known Home Medications 03/27/19 04/06/19 History Allergies Allergy/AdvReac Type Severity Reaction Status Date / Time Penicillins Allergy Unknown Verified 04/06/19 07:44 Childhood Physical Exam Vitals: Vital Signs Temp Pulse Pulse Resp BP BP Pulse Ox 04/07/19 10:23 116 H 20 147/95 98 04/07/19 08:00 99 F 107 H 20 163/110 100 04/07/19 04:00 98.2 F 102 H 16 161/94 100 04/06/19 23:25 98.5 F 108 H 18 121/90 100 04/06/19 20:45 111 H 20 04/06/19 20:31 109 H 20 04/06/19 20:20 98.7 F 104 H 18 153/93 100 04/06/19 15:48 99.2 F 106 H 20 164/98 100 04/06/19 12:00 99.3 F 95 20 152/87 99 Intake and Output 04/06/19 04/07/19 04/07/19 22:59 06:59 14:59 Intake Total 712 Output Total 240 200 Balance 712 -240 -200 Intake: Intake, IV Titration 250 Amount Azithromycin 500 mg In 250 Sodium Chloride 0.9% 250 ml @ 250 mls/hr IVPB Q24H [facility] Rx#:[id number] Oral 462 Output: Urine 240 200 Other: Voiding Method Toilet Toilet Urinal Urinal Weight 60.2 kg PHYSICAL EXAMINATION: HEENT: Head is atraumatic, normocephalic. Pupils equal, round. Neck is supple. There is no elevated jugular venous pressure. Poor dentition, missing teeth HEART EXAMINATION: Heart sounds regular, S1 and S2 normal. No murmur or gallop heard. CHEST EXAMINATION: Lungs reveal diminished air entry to bilateral bases . No chest wall tenderness is noted on palpation or with deep breathing. ABDOMEN: Soft, nontender. Bowel sounds are heard. No organomegaly noted. EXTREMITIES: Diminished peripheral pulses with evidence of trace peripheral edema and no calf tenderness noted. NEUROLOGIC patient is awake, alert and oriented x3. Results 04/07/19 06:08 04/06/19 05:45 Cardiac Enzymes 04/06/19 04/06/19 Range/Units 12:23 18:45 Troponin I 0.014 0.015 (0.000-0.034) ng/mL CBC 04/07/19 Range/Units 06:08 WBC 12.0 H (3.8-10.6) k/uL RBC 4.78 (4.30-5.90) m/uL Hgb 14.7 (13.0-17.5) gm/dL Hct 45.4 (39.0-53.0) % Plt Count 204 (150-450) k/uL Current Medications Generic Name Dose Route Start Last Admin Trade Name Freq PRN Reason Stop Dose Admin Acetaminophen 325 mg 04/06/19 16:36 04/06/19 23:27 Tylenol Tab PO 325 mg Q6HR PRN Administration Fever and/ or Mild Pain Albuterol/Ipratropium 3 ml 04/06/19 13:53 04/06/19 20:31 Duoneb 0.5 Mg-3 Mg/3 Ml Soln INHALATION 3 ml RT-Q4H PRN Administration Shortness Of Breath Or Wheezing Aspirin 325 mg 04/07/19 09:00 Aspirin PO DAILY MIRLANDE Clonidine HCl 1 patch 04/07/19 09:00 04/07/19 10:52 Catapres-Tts 0.1mg Patch TRANSDERM 1 patch Q7D MIRLANDE Administration Famotidine 20 mg 04/06/19 21:00 04/07/19 10:33 Pepcid IV 20 mg Q12HR MIRLANDE Administration Furosemide 40 mg 04/06/19 09:00 04/07/19 10:32 Lasix IV 40 mg Q12HR MIRLANDE Administration Heparin Sodium (Porcine) 5,000 unit 04/06/19 13:45 04/07/19 10:47 Heparin SQ Not Given Q12HR MIRLANDE Azithromycin 500 mg/ Sodium 250 mls @ 250 mls/hr 04/06/19 14:00 04/06/19 16:45 Chloride IVPB 250 mls/hr Q24H MIRLANDE Administration Insulin Aspart 0 unit 04/06/19 17:30 10/09/19 06:29 Novolog SQ 3 unit ACHS MIRLANDE Administration Protocol Iopamidol 30 ml 04/07/19 08:02 Isovue-300 (For Oral Use) PO 04/08/19 08:[address] Scan Ketorolac Tromethamine 15 mg 04/07/19 08:01 04/07/19 08:22 Toradol IVP 04/11/19 08:01 15 mg Q6HR PRN Administration MODERATE Pain Lidocaine 1 patch 04/06/19 14:00 04/07/19 10:34 Lidoderm TOPICAL Not Given DAILY MIRLANDE Lorazepam 1 mg 04/07/19 08:11 04/07/19 08:23 Ativan IV 1 mg Q6HR PRN Administration Anxiety Nitroglycerin 0.5 inch 04/06/19 09:00 04/07/19 10:47 Nitro-Bid Oint TOPICAL Not Given QID MIRLANDE Ondansetron HCl 4 mg 04/07/19 08:04 04/07/19 10:32 Zofran IVP 4 mg Q6HR PRN Administration Nausea And Vomiting Sodium Chloride 10 ml 04/06/19 09:00 04/07/19 10:48 Saline Flush IV 10 ml BID MIRLANDE Administration Intake and Output 04/06/19 04/07/19 04/07/19 22:59 06:59 14:59 Intake Total 712 Output Total 240 200 Balance 712 -240 -200 Intake: Intake, IV Titration 250 Amount Azithromycin 500 mg In 250 Sodium Chloride 0.9% 250 ml @ 250 mls/hr IVPB Q24H [facility] Rx#:[id number] Oral 462 Output: Urine 240 200 Other: Voiding Method Toilet Toilet Urinal Urinal Weight 60.2 kg 04/07/19 06:08 04/06/19 05:45 EKG Interpretations (text) EKG shows a sinus tachycardia with nonspecific ST-T wave changes Assessment and Plan Plan: Assessment: #1 systolic congestive heart failure acute on chronic #2 known history of cardiomyopathy with an ejection fraction of 30-35% #3 CAD stenting in the past, last cardiac catheterization 2016 showing intermediate in-stent restenosis of the RCA and mild to moderate nonobstructive CAD involving the left coronary system #4 hypertension #5 hyperlipidemia #6 diabetes mellitus #7 noncompliance #8 substance abuse, IV drug abuser with heroin Plan We will continue with current dose of IV Lasix, we will also add metoprolol and losartan along with Aldactone to the patient's medication regime. Continue to monitor intake and output along with daily weights and daily lytes BUN and creatinine. Social work consultation has been requested as well. DNP note has been reviewed, I agree with a documented findings and plan of care. Patient was seen and examined.
[2019-04-07 12:00] LABS: Glucose,Whole Blood 239 mg/dL (75-99)
[2019-04-07] MEDS: SPIRONOLACTONE 25 MG TAB PO SCH (13:03)
[2019-04-07] MEDS: METOPROLOL TARTRATE 25 MG TAB PO SCH ×2 (13:03→20:29)
[2019-04-07] MEDS: LOSARTAN 25 MG TAB PO SCH (13:06)
[2019-04-07] MEDS: NICOTINE 21MG/24HR PATCH TRANSDERM SCH (13:09)
[2019-04-07 14:30] LABS: Hemoglobin A1C 8.4 % (4.0-6.0)
[2019-04-07 14:40] LABS: African American GFR (CKD) >90 (>60 ml/min/1.73 sqM); Anion Gap 8 mmol/L; Blood Urea Nitrogen 25 mg/dL (9-20); Calcium 9.2 mg/dL (8.4-10.2); Carbon Dioxide 32 mmol/L (22-30); Chloride 94 mmol/L (98-107); Glucose 282 mg/dL (74-99); Magnesium 1.9 mg/dL (1.6-2.3); Potassium 4.8 mmol/L (3.5-5.1); Sodium 134 mmol/L (137-145)
--- NOTE | 2019-04-07 16:50 | P.CN ---
Psychiatric Consult - . Consult date: 04/07/19 Consult:: 04/07/19 16:41 IDENTIFYING DATA: This patient is a 59-year-old male who is currently homeless and has chronic medical morbidities HISTORY OF PRESENT ILLNESS: The patient presented to the ER after complaining of shortness of breath from his CHF and was found at a gas station who called EMS to bring in the hospital. Patient had verbalized thoughts of suicide/self-harm to a nurse on admission and was placed on one-to-one sitter. As per nurse taking care of the patient at this time, claims that patient was irritable this morning and had endorsed thoughts of self-harm to her during her initial evaluation and patient had been refusing some care however taking his medications. Patient was seen at the bedside and appeared to be in distress secondary to pain. Patient was however able to answer most questions. Patient claimed that his shortness of breath has been improving however he states that he still needs to be in the hospital. Patient claims that "nothing has gone right" and spoke about him being chronically homeless and also "disgusted with everything". He states that he has been suffering from depression for years however denies any anxiety at this time. He claims that he does not have any problems with concentration or guilt however does endorse poor appetite and poor sleep. Patient at this time denied any suicidal ideations or thoughts intent or plan and denied any homicidal ideations intent or plan. He denied any access to guns or weapons and denied any suicide attempts in the past. He states that he does want to get better and wants help for his pain in his feet, gabapentin is helped him previously with his neuropathy. Patient denies any auditory, visual hallucinations and denies any paranoia or delusions. Patient claims that he does not abuse any substances including alcohol and marijuana and admits to smoking 4-5 cigarettes a day. PAST PSYCHIATRIC HISTORY: Patient admits to a history of depression has been put on Wellbutrin in the past and claims that his helped him. He also states that he has never been admitted to a psychiatric hospital and never had a suicide attempt. He states that he does not follow up with psychiatrist.. PAST MEDICAL HISTORY: CAD, CHF, hypertension, HLP, DM. ALLERGIES: as per EMR. CHEMICAL DEPENDENCY HISTORY: as per HPI. FAMILY PSYCHIATRIC/SUBSTANCE USE HISTORY: denies SOCIAL HISTORY: He states that he was born and raised in [facility]. He claims that he finished up a grade of school. Patient states that he is now homeless. MENTAL STATUS EXAM: General Appearance: Patient appears to be stated age is alert, directable and irritable at times. And has poor hygiene and poor grooming Behavior: Patient is lying in bed in mild distress secondary to pain. Speech: Patient's speech is fluent and nonpressured. Somewhat irritable. Mood/Affect: Patient reports their mood is dysthymic, affect is congruent Suicidality/Homicidality: Patient denies having any suicidal or homicidal ideation intent or plan. Perceptions: Patient denies any auditory or visual hallucinations. Though content/process: There is no evidence of any delusional thought content and thought process is linear and goal-directed. [place]. Memory and concentration: AOX3, grossly intact for the purposes of this session. Can spell "WORLD" backwards Judgment and insight: Poor/superficial IMPRESSIONS: Depressive disorder unspecified Nicotine dependence PLAN: -At this time patient does NOT meet criteria for inpatient psychiatric admission. -Would recommend the following medication changes/additions: Remeron 15 mg daily at bedtime for insomnia, mood and appetite. -Discontinue 1:1 sitter at this time as patient endorsed no SI/self-harm thoughts. Patient has not made any suicidal gestures and does not have a previous history of any suicide attempts. -Uncontrolled Pain is likely an underlying factor in patient's depressed mood -Psychiatry will sign off at this point
[2019-04-07 17:16] LABS: Glucose,Whole Blood 187 mg/dL (75-99)
--- NOTE | 2019-04-07 19:33 | CONS ---
CONSULTATION REASON FOR CONSULTATION: Shortness of breath. HISTORY OF PRESENT ILLNESS: This is a 59-year-old homeless male who apparently presented to the emergency room via EMS for shortness of breath. He apparently has a history of well-established CAD and CHF, but has not been taking any of his medications because he is homeless. Apparently his breathing got worse. He himself is a very poor historian. I am reading primarily from the ER rad. He apparently got short of breath over the last day or 2. He apparently was at a gas station when he became so short of breath that EMS was called. He does admit apparently according to the ER rad with occasional cough. No fever or chills. Apparently not coughing up any phlegm. No chest pain or chest discomfort. No nausea, vomiting or diarrhea. Again, the patient is a very poor historian. His home medications are either not known or not been taken by him. ALLERGIES: APPARENTLY PENICILLIN. MEDICAL HISTORY: Apparently positive for CAD, heart failure, COPD, diabetes, hyperlipidemia, hypertension, and myocardial infarction. He had a recent admission to this hospital back in October. He apparently had chest pain at that time with elevated troponin levels. He does have a history of uncontrolled or poorly controlled diabetes and narcotic- seeking behavior. In addition, he complains of chronic low back pain, vertebral fractures, pinched nerves, neuropathy, and hepatitis C. He apparently does have a history of IV heroin use. SURGICAL HISTORY: Includes among other things, cholecystectomy, heart catheterization with stent placement, right heel surgery, incision and drainage and colonoscopy. SOCIAL HISTORY: Positive for ongoing everyday tobacco use. He apparently uses IV heroin. There apparently is no history of any alcohol use. FAMILY HISTORY: Positive for father with CAD, diabetes, hypertension and mother with cancer. REVIEW OF SYSTEMS: CONSTITUTIONAL: Weakness. NEUROLOGIC: Negative. HEENT negative. CARDIOVASCULAR negative. PULMONARY: Shortness of breath. Occasional cough. GI negative. negative. RHEUMATOLOGIC negative. IMMUNOLOGIC negative. ENDOCRINOLOGIC negative. DERMATOLOGIC negative. PHYSICAL EXAMINATION: VITAL SIGNS: Current vital signs are reviewed. They include a temperature of 99 degrees, heart rate about 100 beats per minute, respiratory rate 20, blood pressure 147/95, mean 112 and a room air saturation of 100%. GENERAL: Appears in no acute distress. He does have mild tachypnea. No use of accessory muscles. HEENT examination is grossly unremarkable. Teeth are in very poor repair. NECK: Supple. Full range of motion. No adenopathy or thyromegaly. Neck veins are flat. CARDIOVASCULAR examination reveals tachycardia. It is regular. Heart rate about 105 beats per minute. No distinct murmur noted. LUNGS: Bibasilar crackles. A few scattered rhonchi. No wheezes. Breath sounds equal. ABDOMEN: Soft. Bowel sounds are heard. EXTREMITIES are intact. Minimal edema. SKIN: Without rash. NEUROLOGIC examination is brief but nonfocal. LAB DATA: Reviewed. White count 12, hemoglobin 14.7, hematocrit 45.4, platelet count 284, 000. PT/INR, PTT and D-dimer all normal. Sodium 135, potassium, chloride, CO2 all normal. Anion gap normal. BUN and creatinine were normal. His cardiac enzymes were normal. His N-terminal proBNP 8000. Acetone was negative. Serum alcohol was less than 10. The rest of his labs on his comprehensive metabolic profile looks fine. His chest x- ray was consistent with fluid overload and mild interstitial edema. His abdominal and pelvic CT apparently shows colonic wall thickening which could be related to muscular hypertrophy and difficult to exclude a mucosal lesion within the colon. There also could be some colitis. Medications are reviewed. ASSESSMENT: 1. Shortness of breath, secondary to congestive heart failure. 2. History of IV heroin use. 3. History of hepatitis C. 4. History of tobacco use, rule out chronic obstructive pulmonary disease. 5. History of coronary artery disease with previous stent placement. 6. History of diabetes mellitus. 7. History of hyperlipidemia. 8. History of hypertension. 9. Prior myocardial infarction. 10.Medical noncompliance. 11.Chronic low back pain. 12.Diabetic neuropathy. 13.Multiple other medical problems and comorbidities. PLAN: His medications are reviewed. We will put him on medications for COPD. I do not believe he needs steroids. We will put him on breathing treatments. Likely does not need antibiotics at this time. Obviously the patient's overall prognosis is poor. He has been counselled about the importance of smoking cessation. We will continue to follow. He is currently being seen by Cardiology and being treated for acute on chronic systolic heart failure. MMODL / IJN: [id number] /
[2019-04-07] MEDS: SYMBICORT 160-4.5 MCG INHALER INHALATION SCH (19:45)
[2019-04-07 20:22] LABS: Glucose,Whole Blood 206 mg/dL (75-99)
[2019-04-07] MEDS: MIRTAZAPINE 15 MG TAB PO SCH (20:29)
[2019-04-08] MEDS: KETOROLAC 30 MG/ML 1 ML VIAL IVP PRN ×4 (02:39→21:51)
[2019-04-08] MEDS: LORazepam 2 MG/ML INJ IV PRN (02:40)
[2019-04-08] MEDS: ONDANSETRON 4 MG/2 ML VIAL IVP PRN (02:50)
[2019-04-08] MEDS: ACETAMINOPHEN TAB 325 MG TAB PO PRN ×2 (05:43→14:15)
[2019-04-08 06:17] LABS: Glucose,Whole Blood 142 mg/dL (75-99)
[2019-04-08] MEDS: INSULIN ASPART (NovoLOG) 100 UNIT/ML VIAL SQ SCH ×4 (06:19→21:39)
[2019-04-08] MEDS ORDERED: LORazepam 0.5 MG TAB PO PRN (06:51)
[2019-04-08] MEDS: SYMBICORT 160-4.5 MCG INHALER INHALATION SCH ×2 (08:00→20:04)
--- NOTE | 2019-04-08 08:02 | P.PN ---
Subjective This is a pleasant 59 years old male with past medical history of coronary artery disease, heart failure, COPD, diabetes mellitus, hyperlipidemia, h ypertension, diabetic neuropathy. Presents because of dyspnea, with undetectable phlegm and normal color. His symptoms has been going on for a few days. However he denies chest pain. Patient has chronic shoulder and back pain that: 4 years as per patient. Patient is asking for Dilaudid or any shots for his pain. No abdominal pain, no nausea vomiting or change in bowel habits. Vitals are stable. Left showing unremarkable CBC, BMP, liver enzymes except for mild leukocytosis of L 10.8 k. . D-dimer is negative with 0.56, with reference range less than 0.60. 2 troponin status is 0.012 and the second one 0.014. ProBNP is elevated at 8000. EKG showing sinus tachycardia at [address]-T changes, with left ventricular hypertrophy. Chest x-ray showing mild pulmonary edema this could be related to acute heart failure or acute pneumonia In the emergency room patient was started on Lasix 40 mg twice daily 04/07/2019 Patient is a still tachypneic, he is agitated, he is complaining of from abdominal pain and tenderness. Is slightly tachycardic at 102-107, slightly hypertensive with blood pressure 163/110, patient verbalized suicidal forced to the staff and he told me "I'm sick of it, i am homeless". Patient is asking specifically about morphine and Dilaudid and he does not accept alternatives like nonsteroidal anti-inflammatory medication. And when he told he cannot get that he got agitated and he jumped out of the bed briskly, On examination patient has generalized abdominal pain and tenderness with guarding, however patient showing possible malingering affect. Patient says that he vomited but has not been monitored by the staff. I doubt the patient has acute abdomen given how quickly he jumped out of the bed and rushed to the door, before he coming back by himself. We will the patient on 1:1 observation, we'll ask for psychiatrist evaluation. And I discussed with the staff patient cannot leave AMA, and if he is doing going going to petition/cert him, however now he is willing to stay We will do computed tomography scan of the abdomen without contrast. Also we'll treat him for possible withdrawal from opioids, with NSAIDs, benzodiazepines, cl onidine. 04/08/2019 Patient lying In bed not in distress however his more sleepy today probably from the Ativan he got intravenously last night. He is arousable is easily to verbal and tactile stimuli. He goes to sleep quickly. We'll change his Ativan from IV to by mouth and lower the frequency of dosing from every 6 down to every 8 hours. Continue with Toradol and lidocaine patch for pain control. He is saturating 98% on room air. We'll check CBC and BMP, also we'll send for urinalysis. Psychiatrist evaluated the patient and found him nonsuicidal, sitter at bedside was discontinued. Burnett was added. Also patient was started on losartan, metoprolol and Aldactone by cardiology team. Cardiology are following the case closely patient has no abdominal pain on tenderness today and CT of the abdomen was negative. Repeat chest x-ray Discussed with staff Review of systems CONSTITUTIONAL: No fever, no malaise, no fatigue. HEENT: No recent visual problems or hearing problems. Denied any sore throat. CARDIOVASCULAR: No orthopnea, PND, no palpitations, no syncope. PULMONARY: no hemoptysis. GASTROINTESTINAL: No diarrhea, no nausea, no vomiting, no abdominal pain. Normoactive bowel sounds. NEUROLOGICAL: No headaches, no weakness, no numbness. HEMATOLOGICAL: Denies any bleeding or petechiae. GENITOURINARY: Denies any burning micturition, frequency, or urgency. MUSCULOSKELETAL/RHEUMATOLOGICAL: Denies any joint pain, swelling, or any muscle pain. ENDOCRINE: Denies any polyuria or polydipsia. Active Medications Acetaminophen (Tylenol Tab) 325 mg PO Q6HR PRN PRN Reason: Fever and/ or Mild Pain Last Admin: 04/08/19 05:43 Dose: 325 mg Documented by: Albuterol/Ipratropium (Duoneb 0.5 Mg-3 Mg/3 Ml Soln) 3 ml INHALATION RT-Q4H PRN PRN Reason: Shortness Of Breath Or Wheezing Last Admin: 04/06/19 20:31 Dose: 3 ml Documented by: Aspirin (Aspirin) 81 mg PO DAILY [facility] Budesonide/Formoterol Fumarate (Symbicort 160-4.5 Mcg Inhaler) 2 puff INHALATION RT-BID [facility] Last Admin: 04/08/19 08:00 Dose: Not Given Documented by: Famotidine (Pepcid) 20 mg IV Q12HR [facility] Last Admin: 04/07/19 20:28 Dose: 20 mg Documented by: Furosemide (Lasix) 40 mg IV Q12HR [facility] Last Admin: 04/07/19 20:29 Dose: 40 mg Documented by: Heparin Sodium (Porcine) (Heparin) 5,000 unit SQ Q12HR [facility] Last Admin: 04/07/19 20:29 Dose: 5,000 unit Documented by: Insulin Aspart (Novolog) 0 unit SQ [facility]; Protocol Last Admin: 04/08/19 06:19 Dose: Not Given Documented by: Iopamidol (Isovue-300 (For Oral Use)) 30 ml PO Q60M PRN PRN Reason: CT Scan Stop: 04/08/19 08:02 Ketorolac Tromethamine (Toradol) 15 mg IVP Q6HR PRN PRN Reason: MODERATE Pain Stop: 04/11/19 08:01 Last Admin: 04/08/19 02:39 Dose: 15 mg Documented by: Lidocaine (Lidoderm) 1 patch TOPICAL DAILY [facility] Last Admin: 04/07/19 10:34 Dose: Not Given Documented by: Lorazepam (Ativan) 0.5 mg PO Q8HR PRN PRN Reason: Agitation or Acute Anxiety Losartan Potassium (Cozaar) 25 mg PO DAILY [facility] Last Admin: 04/07/19 13:06 Dose: 25 mg Documented by: Metoprolol Tartrate (Lopressor) 25 mg PO BID [facility] Last Admin: 04/07/19 20:29 Dose: 25 mg Documented by: Mirtazapine (Remeron) 15 mg PO HS [facility] Last Admin: 04/07/19 20:29 Dose: 15 mg Documented by: Nicotine (Habitrol 21mg/24hr Patch) 1 patch TRANSDERM DAILY [facility] Last Admin: 04/07/19 13:09 Dose: Not Given Documented by: Ondansetron HCl (Zofran) 4 mg IVP Q6HR PRN PRN Reason: Nausea And Vomiting Last Admin: 04/08/19 02:50 Dose: 4 mg Documented by: Sodium Chloride (Saline Flush) 10 ml IV BID [facility] Last Admin: 04/07/19 20:29 Dose: 10 ml Documented by: Spironolactone (Aldactone) 25 mg PO DAILY [facility] Last Admin: 04/07/19 13:03 Dose: 25 mg Documented by: Objective - Vital Signs Vital signs: Vital Signs Temp 98.7 F 04/08/19 03:00 Pulse 100 04/08/19 03:00 Resp 18 04/08/19 03:00 BP 161/99 04/08/19 03:00 Pulse Ox 98 04/08/19 03:00 Intake & Output 04/07/19 04/08/19 04/08/19 18:59 06:59 18:59 Intake Total 120 Output Total 200 Balance -200 120 Weight 61.4 kg Intake: Oral 120 Output: Urine 200 Other: Voiding Method Toilet Toilet Urinal Urinal # Voids 1 3 # Bowel Movements 0 - Exam GENERAL: The patient is alert and oriented x3, not in any acute distress. Well developed, well nourished. HEENT: Pupils are round and equally reacting to light. EOMI. No scleral icterus. No conjunctival pallor. Normocephalic, atraumatic. No pharyngeal erythema. No thyromegaly. CARDIOVASCULAR: S1 and S2 present. No murmurs, rubs, or gallops. PULMONARY: Chest is clear to auscultation, no wheezing or crackles. -ABDOMEN: Soft, generalized abdominal tenderness with guarding, no rebound ten derness (could be intentional), nondistended, normoactive bowel sounds. No palpable organomegaly. MUSCULOSKELETAL: No joint swelling or deformity. EXTREMITIES: No cyanosis, clubbing, or pedal edema. NEUROLOGICAL: Gross neurological examination did not reveal any focal deficits. SKIN: No rashes. no petechiae. - Labs CBC & Chem 7: 04/07/19 06:08 04/07/19 14:17 Labs: Abnormal Lab Results - Last 24 Hours (Table) 04/07/19 04/07/19 04/07/19 Range/Units 06:08 11:57 14:17 Sodium 134 L (137-145) mmol/L Chloride 94 L (98-107) mmol/L Carbon Dioxide 32 H (22-30) mmol/L BUN 25 H (9-20) mg/dL Glucose 282 H (74-99) mg/dL POC Glucose (mg/dL) 239 H (75-99) mg/dL Hemoglobin A1c 8.4 H (4.0-6.0) % 04/07/19 04/07/19 04/08/19 Range/Units 17:08 20:21 06:15 Sodium (137-145) mmol/L Chloride (98-107) mmol/L Carbon Dioxide (22-30) mmol/L BUN (9-20) mg/dL Glucose (74-99) mg/dL POC Glucose (mg/dL) 187 H 206 H 142 H (75-99) mg/dL Hemoglobin A1c (4.0-6.0) % Assessment and Plan Assessment: Acute on chronic systolic congestive heart failure with ejection fraction 35% Possible acute bronchitis versus early pneumonia. This likely Suicidal ideation and agitation Asking for a opioid medication. Possible opioid withdrawal Abdominal pain and tenderness History of coronary artery disease Type 2 diabetes mellitus Hypertension Hyperlipidemia The particular neuropathy COPD, not in acute exacerbation History of drug abuse, with accidental heroin overdose 2-3 months ago Plan: This is a pleasant 59 years old male who presents with acute CHF. Continue with diuretic, cardiology consult is appreciated to follow recommendation. There is also possibility of pneumonia. We will recheck chest x-ray today., continue the breathing treatments. Consult pulmonary service. Pain management with Toradol and lidocaine patch. DC sitter at bedside Labs and medication were reviewed.. Continue same treatment. Continue with symptomatic treatment. Resume home medication. Monitor lytes and vitals. DVT and GI prophylaxis. Further recommendations of the clinical course of the patient DVT prophylaxis: Subcutaneous heparin GI Prophylaxis: Pepcid Prognosis is guarded
--- NOTE | 2019-04-08 08:35 | XR ---
EXAMINATION TYPE: XR chest 1V DATE OF EXAM: 04/08/2019 CLINICAL HISTORY: Difficulty breathing progress study. TECHNIQUE: Single AP portable upright view of the chest is obtained. COMPARISON: Chest x-ray from 2 days earlier FINDINGS: Cardiac silhouette size is stable and within normal limits. Reticular interstitial changes bilaterally are present. No new focal airspace opacity, pleural effusion, or pneumothorax. Osseous s tructures are demineralized. Overlying EKG leads are redemonstrated. IMPRESSION: Chronic changes without new acute pulmonary process
[2019-04-08 09:21] LABS: Basophils # (A) 0.1 k/uL (0-0.2); Basophils % (A) 1 %; Eosinophils % (A) 0 %; HCT 46.6 % (39.0-53.0); HGB 14.7 gm/dL (13.0-17.5); Lymphocytes # (A) 2.5 k/uL (1.0-4.8); Lymphocytes % (A) 22 %; MCH 30.9 pg (25.0-35.0); MCHC 31.6 g/dL (31.0-37.0); MCV 97.6 fL (80.0-100.0); Mean Platelet Volume 7.7; Monocytes # (A) 0.6 k/uL (0-1.0); Monocytes % (A) 5 %; Neutrophils # (A) 7.7 k/uL (1.3-7.7); Neutrophils % (A) 70 %; Platelet Count 192 k/uL (150-450); RBC 4.77 m/uL (4.30-5.90); RDW 13.3 % (11.5-15.5); WBC 11.1 k/uL (3.8-10.6)
[2019-04-08] MEDS: ASPIRIN 81 MG PO SCH (09:34)
[2019-04-08] MEDS: LOSARTAN 25 MG TAB PO SCH (09:34)
[2019-04-08] MEDS: METOPROLOL TARTRATE 25 MG TAB PO SCH ×2 (09:34→21:39)
[2019-04-08] MEDS: SPIRONOLACTONE 25 MG TAB PO SCH (09:34)
[2019-04-08] MEDS: FAMOTIDINE 20 MG/2 ML VIAL IV SCH (09:35)
[2019-04-08] MEDS: HEPARIN SODIUM,PORCINE 5,000 UNIT/ML 1 ML VIAL SQ SCH ×2 (09:35→21:39)
[2019-04-08] MEDS: FUROSEMIDE 10 MG/ML 4 ML VIAL IV SCH ×2 (09:35→21:39)
[2019-04-08] MEDS: LIDOCAINE 5% PATCH TOPICAL SCH (09:37)
[2019-04-08] MEDS: NICOTINE 21MG/24HR PATCH TRANSDERM SCH (09:37)
[2019-04-08 09:53] LABS: African American GFR (CKD) >90 (>60 ml/min/1.73 sqM); Anion Gap 14 mmol/L; Blood Urea Nitrogen 40 mg/dL (9-20); Calcium 9.1 mg/dL (8.4-10.2); Carbon Dioxide 21 mmol/L (22-30); Chloride 98 mmol/L (98-107); Glucose 160 mg/dL (74-99); Potassium 4.6 mmol/L (3.5-5.1); Sodium 133 mmol/L (137-145)
[2019-04-08 11:54] LABS: Glucose,Whole Blood 171 mg/dL (75-99)
[2019-04-08 13:12] VITALS: BMI 19.4
[2019-04-08] MEDS: GABAPENTIN 100 MG CAP PO SCH ×2 (14:52→21:50)
[2019-04-08] MEDS: LORazepam 0.5 MG TAB PO PRN ×2 (15:39→23:36)
--- NOTE | 2019-04-08 15:46 | P.PN ---
Subjective Progress Note Date: 04/08/19 Principal diagnosis: Acute exacerbation of congestive heart care. The patient is seen today 04/08/2019 in follow-up on the selective care unit. He is currently resting comfortably in bed. Somewhat reluctant to answer questions but is in no acute distress. White count 11.1. Hemoglobin 14.7. Creatinine 0.92. He remains on Lasix 40 mg IV every 12 hours. Remains on Symbicort and bronchodilators. NicoDerm patch in place. Chest x-ray shows chronic changes but no acute pulmonary process. Objective - Vital Signs Vital signs: Vital Signs Temp 97.1 F L 04/08/19 12:05 Pulse 89 04/08/19 12:05 Resp 18 04/08/19 12:05 BP 144/87 04/08/19 12:05 Pulse Ox 100 04/08/19 12:05 Intake & Output 04/07/19 04/08/19 04/08/19 18:59 06:59 18:59 Intake Total 120 240 Output Total 200 300 Balance -200 120 -60 Weight 61.4 kg 61.4 kg Intake: Oral 120 240 Output: Urine 200 300 Other: Voiding Method Toilet Toilet Urinal Urinal # Voids 1 3 1 # Bowel Movements 0 0 - Exam GENERAL EXAM: Alert, active, comfortable in no apparent distress. On room air. HEAD: Normocephalic. EYES: Normal reaction of pupils, equal size. NOSE: Clear with pink turbinates. THROAT: No erythema or exudates. NECK: No masses, no JVD. CHEST: No chest wall deformity. LUNGS: Equal air entry with no crackles, wheeze, rhonchi or dullness. Diminished. CVS: S1 and S2 normal with no audible murmur, regular rhythm. ABDOMEN: No hepatosplenomegaly, normal bowel sounds, no guarding or rigidity. SPINE: No scoliosis or deformity SKIN: No rashes CENTRAL NERVOUS SYSTEM: No focal deficits, tone is normal in all 4 extremities. EXTREMITIES: There is no peripheral edema. No clubbing, no cyanosis. Peripheral pulses are intact. - Labs CBC & Chem 7: 04/08/19 09:02 04/08/19 09:02 Labs: Abnormal Lab Results - Last 24 Hours (Table) 04/07/19 04/07/19 04/08/19 Range/Units 17:08 20:21 06:15 WBC (3.8-10.6) k/uL Sodium (137-145) mmol/L Carbon Dioxide (22-30) mmol/L BUN (9-20) mg/dL Glucose (74-99) mg/dL POC Glucose (mg/dL) 187 H 206 H 142 H (75-99) mg/dL 04/08/19 04/08/19 04/08/19 Range/Units 09:02 09:02 11:47 WBC 11.1 H (3.8-10.6) k/uL Sodium 133 L (137-145) mmol/L Carbon Dioxide 21 L (22-30) mmol/L BUN 40 H (9-20) mg/dL Glucose 160 H (74-99) mg/dL POC Glucose (mg/dL) 171 H (75-99) mg/dL Assessment and Plan Assessment: Impression: #1 Acute exacerbation of chronic systolic congestive heart failure with ejection fraction 25-30%. #2 Acute exacerbation of suspected chronic obstructive pulmonary disease. #3 Chronic and ongoing tobacco dependence. #4 History of heroin use. #5 History of hepatitis C. #6 Coronary artery disease with previous stent placement. #7 Hyperlipidemia. #8 Hypertension. #9 Diabetes mellitus. #10 History of medication noncompliance. #11 Chronic low back pain. #12 Diabetic neuropathy. Plan: The patient was seen and evaluated by Dr. Padilla. Chest x-ray and labs reviewed. He remains on bronchodilators. He remains on IV diuretics. We'll continue to follow and make further recommendations based on his clinical status. I, the cosigning physician, performed a history & physical examination of the patient. Lungs sounds are clear, diminished. Maintaining good O2 saturations in the 90s on room air. I discussed the assessment and plan of care with my nurse practitioner, Urszula Xie. I attest to the above note as dictated by her.
[2019-04-08 16:40] LABS: Glucose,Whole Blood 240 mg/dL (75-99)
[2019-04-08] MEDS ORDERED: guaiFENesin-DM 100-10MG/5ML 10 ML CUP PO PRN (20:31)
[2019-04-08 21:23] LABS: Glucose,Whole Blood 154 mg/dL (75-99)
[2019-04-08] MEDS: FAMOTIDINE 20 MG TAB PO SCH (21:39)
[2019-04-08] MEDS: MIRTAZAPINE 15 MG TAB PO SCH (21:39)
[2019-04-09] MEDS: KETOROLAC 30 MG/ML 1 ML VIAL IVP PRN ×2 (04:53→21:01)
[2019-04-09 05:52] LABS: Basophils # (A) 0.1 k/uL (0-0.2); Basophils % (A) 1 %; Eosinophils # (A) 0.2 k/uL (0-0.7); Eosinophils % (A) 2 %; HCT 43.6 % (39.0-53.0); HGB 14.8 gm/dL (13.0-17.5); Lymphocytes % (A) 32 %; MCH 31.6 pg (25.0-35.0); MCHC 34.1 g/dL (31.0-37.0); MCV 92.7 fL (80.0-100.0); Mean Platelet Volume 7.1; Monocytes # (A) 0.6 k/uL (0-1.0); Monocytes % (A) 6 %; Neutrophils # (A) 5.2 k/uL (1.3-7.7); Neutrophils % (A) 57 %; Platelet Count 245 k/uL (150-450); WBC 9.1 k/uL (3.8-10.6)
[2019-04-09 06:01] LABS: Calcium 9.1 mg/dL (8.4-10.2); Potassium 4.3 mmol/L (3.5-5.1)
[2019-04-09 06:17] LABS: Glucose,Whole Blood 159 mg/dL (75-99)
[2019-04-09] MEDS: INSULIN ASPART (NovoLOG) 100 UNIT/ML VIAL SQ SCH ×4 (06:55→20:54)
[2019-04-09] MEDS: SYMBICORT 160-4.5 MCG INHALER INHALATION SCH ×2 (08:37→21:17)
[2019-04-09] MEDS: NICOTINE 21MG/24HR PATCH TRANSDERM SCH (08:47)
[2019-04-09] MEDS: LIDOCAINE 5% PATCH TOPICAL SCH (08:47)
[2019-04-09] MEDS: SPIRONOLACTONE 25 MG TAB PO SCH (08:48)
[2019-04-09] MEDS: FUROSEMIDE 10 MG/ML 4 ML VIAL IV SCH ×2 (08:48→20:55)
[2019-04-09] MEDS: ASPIRIN 81 MG PO SCH (08:48)
[2019-04-09] MEDS: LORazepam 0.5 MG TAB PO PRN (08:48)
[2019-04-09] MEDS: METOPROLOL TARTRATE 25 MG TAB PO SCH ×2 (08:48→20:55)
[2019-04-09] MEDS: LOSARTAN 25 MG TAB PO SCH (08:48)
[2019-04-09] MEDS: GABAPENTIN 100 MG CAP PO SCH ×2 (08:48→20:55)
[2019-04-09] MEDS: FAMOTIDINE 20 MG TAB PO SCH ×2 (08:48→20:55)
[2019-04-09] MEDS: HEPARIN SODIUM,PORCINE 5,000 UNIT/ML 1 ML VIAL SQ SCH ×2 (08:49→20:55)
[2019-04-09 11:56] LABS: Glucose,Whole Blood 240 mg/dL (75-99)
[2019-04-09] MEDS ORDERED: LORazepam 0.5 MG TAB PO STA (14:33)
[2019-04-09] MEDS ORDERED: GABAPENTIN 100 MG CAP PO STA (14:36)
--- NOTE | 2019-04-09 15:39 | P.PN ---
Subjective Progress Note Date: 04/09/19 Principal diagnosis: Acute exacerbation of congestive heart care. The patient is seen today 04/08/2019 in follow-up on the selective care unit. He is currently resting comfortably in bed. Somewhat reluctant to answer questions but is in no acute distress. White count 11.1. Hemoglobin 14.7. Creatinine 0.92. He remains on Lasix 40 mg IV every 12 hours. Remains on Symbicort and bronchodilators. NicoDerm patch in place. Chest x-ray shows chronic changes but no acute pulmonary process. The patient is seen today 04/09/2018 in follow-up on the selective care unit. He is awake and alert in no acute distress. Denies any worsening shortness of breath, cough or congestion. A bit more cooperative today. Maintaining O2 saturations in the high 90s on room air. He is afebrile. Hemodynamically stable. White count 9.1. Hemoglobin 14.8. Creatinine 1.19. He remains on DuoNeb inhalations, Symbicort, Robitussin, IV diuretics. NicoDerm patch is in place. Objective - Vital Signs Vital signs: Vital Signs Temp 98.2 F 04/09/19 12:00 Pulse 98 04/09/19 12:00 Resp 18 04/09/19 12:00 BP 134/83 04/09/19 12:00 Pulse Ox 99 04/09/19 12:00 Intake & Output 04/08/19 04/09/19 04/09/19 18:59 06:59 18:59 Intake Total 360 240 Output Total 300 250 Balance 60 -250 240 Weight 61.4 kg Intake: Oral 360 240 Output: Urine 300 250 Other: Voiding Method Toilet Toilet Urinal Urinal # Voids 1 # Bowel Movements 0 - Exam GENERAL EXAM: Alert, frail 59-year-old gentleman, comfortable in no apparent d istress. On room air. HEAD: Normocephalic. EYES: Normal reaction of pupils, equal size. NOSE: Clear with pink turbinates. THROAT: No erythema or exudates. NECK: No masses, no JVD. CHEST: No chest wall deformity. LUNGS: Equal air entry with no crackles, wheeze, rhonchi or dullness. Diminished. CVS: S1 and S2 normal with no audible murmur, regular rhythm. ABDOMEN: No hepatosplenomegaly, normal bowel sounds, no guarding or rigidity. SPINE: No scoliosis or deformity SKIN: No rashes CENTRAL NERVOUS SYSTEM: No focal deficits, tone is normal in all 4 extremities. EXTREMITIES: There is no peripheral edema. No clubbing, no cyanosis. Peripheral pulses are intact. - Labs CBC & Chem 7: 04/09/19 05:31 04/09/19 05:31 Labs: Abnormal Lab Results - Last 24 Hours (Table) 04/08/19 04/08/19 04/09/19 Range/Units 16:37 21:16 05:31 Sodium 134 L (137-145) mmol/L Chloride 97 L (98-107) mmol/L BUN 46 H (9-20) mg/dL Glucose 178 H (74-99) mg/dL POC Glucose (mg/dL) 240 H 154 H (75-99) mg/dL 04/09/19 04/09/19 Range/Units 06:13 11:53 Sodium (137-145) mmol/L Chloride (98-107) mmol/L BUN (9-20) mg/dL Glucose (74-99) mg/dL POC Glucose (mg/dL) 159 H 240 H (75-99) mg/dL Assessment and Plan Assessment: Impression: #1 Acute exacerbation of chronic systolic congestive heart failure with ejection fraction 25-30%. #2 Acute exacerbation of suspected chronic obstructive pulmonary disease. #3 Chronic and ongoing tobacco dependence. #4 History of heroin use. #5 History of hepatitis C. #6 Coronary artery disease with previous stent placement. #7 Hyperlipidemia. #8 Hypertension. #9 Diabetes mellitus. #10 History of medication noncompliance. #11 Chronic low back pain. #12 Diabetic neuropathy. Plan: The patient was seen and evaluated by Dr. Padilla. Currently stable from the pulmonary standpoint. He remains on bronchodilators. He remains on IV diuretics. Home once cleared by cardiology. We'll continue to follow and make further recommendations based on his clinical status. I, the cosigning physician, performed a history & physical examination of the patient. Lungs sounds are clear, diminished. Maintaining good O2 saturations in the 90s on room air. I discussed the assessment and plan of care with my nurse practitioner, Urszula Xie. I attest to the above note as dictated by her.
[2019-04-09 16:54] LABS: Glucose,Whole Blood 153 mg/dL (75-99)
--- NOTE | 2019-04-09 19:21 | P.PN ---
Subjective This is a pleasant 59 years old male with past medical history of coronary artery disease, heart failure, COPD, diabetes mellitus, hyperlipidemia, h ypertension, diabetic neuropathy. Presents because of dyspnea, with undetectable phlegm and normal color. His symptoms has been going on for a few days. However he denies chest pain. Patient has chronic shoulder and back pain that: 4 years as per patient. Patient is asking for Dilaudid or any shots for his pain. No abdominal pain, no nausea vomiting or change in bowel habits. Vitals are stable. Left showing unremarkable CBC, BMP, liver enzymes except for mild leukocytosis of L 10.8 k. . D-dimer is negative with 0.56, with reference range less than 0.60. 2 troponin status is 0.012 and the second one 0.014. ProBNP is elevated at 8000. EKG showing sinus tachycardia at [address]-T changes, with left ventricular hypertrophy. Chest x-ray showing mild pulmonary edema this could be related to acute heart failure or acute pneumonia In the emergency room patient was started on Lasix 40 mg twice daily 04/07/2019 Patient is a still tachypneic, he is agitated, he is complaining of from abdominal pain and tenderness. Is slightly tachycardic at 102-107, slightly hypertensive with blood pressure 163/110, patient verbalized suicidal forced to the staff and he told me "I'm sick of it, i am homeless". Patient is asking specifically about morphine and Dilaudid and he does not accept alternatives like nonsteroidal anti-inflammatory medication. And when he told he cannot get that he got agitated and he jumped out of the bed briskly, On examination patient has generalized abdominal pain and tenderness with guarding, however patient showing possible malingering affect. Patient says that he vomited but has not been monitored by the staff. I doubt the patient has acute abdomen given how quickly he jumped out of the bed and rushed to the door, before he coming back by himself. We will the patient on 1:1 observation, we'll ask for psychiatrist evaluation. And I discussed with the staff patient cannot leave AMA, and if he is doing going going to petition/cert him, however now he is willing to stay We will do computed tomography scan of the abdomen without contrast. Also we'll treat him for possible withdrawal from opioids, with NSAIDs, benzodiazepines, cl onidine. 04/08/2019 Patient lying In bed not in distress however his more sleepy today probably from the Ativan he got intravenously last night. He is arousable is easily to verbal and tactile stimuli. He goes to sleep quickly. We'll change his Ativan from IV to by mouth and lower the frequency of dosing from every 6 down to every 8 hours. Continue with Toradol and lidocaine patch for pain control. He is saturating 98% on room air. We'll check CBC and BMP, also we'll send for urinalysis. Psychiatrist evaluated the patient and found him nonsuicidal, sitter at bedside was discontinued. Burnett was added. Also patient was started on losartan, metoprolol and Aldactone by cardiology team. Cardiology are following the case closely patient has no abdominal pain on tenderness today and CT of the abdomen was negative. Repeat chest x-ray Discussed with staff 04/09/2019 his breathing is better today and he is saturating 97-99% on RA, no chest pain of dyspnea , however he is complaining from pain in his both legs and hands,felt like burning which is been going on for years as per , he states he was taking neurontin 800 mg , but he was not taking his medicine for the last two months, pt was started on small dose of neurontin, pt is on ativan also prn which helping him. pt is medically stable for discharge once he got cleared by cardiology however he is pending placement and insurance approval Objective - Vital Signs Vital signs: Vital Signs Temp 96.7 F L 04/09/19 16:00 Pulse 96 04/09/19 16:00 Resp 16 04/09/19 16:00 BP 122/71 04/09/19 16:00 Pulse Ox 97 04/09/19 16:00 Intake & Output 04/09/19 04/09/19 04/10/19 06:59 18:59 06:59 Intake Total 600 Output Total 250 1 Balance -250 599 Intake: Oral 600 Output: Urine 250 1 Other: Voiding Method Toilet Toilet Urinal Urinal - Exam GENERAL: The patient is alert and oriented x3, not in any acute distress. Well developed, well nourished. HEENT: Pupils are round and equally reacting to light. EOMI. No scleral icterus. No conjunctival pallor. Normocephalic, atraumatic. No pharyngeal erythema. No thyromegaly. CARDIOVASCULAR: S1 and S2 present. No murmurs, rubs, or gallops. PULMONARY: Chest is clear to auscultation, no wheezing or crackles. -ABDOMEN: Soft, generalized abdominal tenderness with guarding, no rebound tenderness (could be intentional), nondistended, normoactive bowel sounds. No palpable organomegaly. MUSCULOSKELETAL: No joint swelling or deformity. EXTREMITIES: No cyanosis, clubbing, or pedal edema. NEUROLOGICAL: Gross neurological examination did not reveal any focal deficits. SKIN: No rashes. no petechiae. - Labs CBC & Chem 7: 04/09/19 05:31 04/09/19 05:31 Labs: Abnormal Lab Results - Last 24 Hours (Table) 04/08/19 04/09/19 04/09/19 Range/Units 21:16 05:31 06:13 Sodium 134 L (137-145) mmol/L Chloride 97 L (98-107) mmol/L BUN 46 H (9-20) mg/dL Glucose 178 H (74-99) mg/dL POC Glucose (mg/dL) 154 H 159 H (75-99) mg/dL 04/09/19 04/09/19 Range/Units 11:53 16:48 Sodium (137-145) mmol/L Chloride (98-107) mmol/L BUN (9-20) mg/dL Glucose (74-99) mg/dL POC Glucose (mg/dL) 240 H 153 H (75-99) mg/dL Assessment and Plan Assessment: Acute on chronic systolic congestive heart failure with ejection fraction 35% Possible acute bronchitis versus early pneumonia. This likely Suicidal ideation and agitation Asking for a opioid medication. Possible opioid withdrawal Abdominal pain and tenderness History of coronary artery disease Type 2 diabetes mellitus Hypertension Hyperlipidemia The particular neuropathy COPD, not in acute exacerbation History of drug abuse, with accidental heroin overdose 2-3 months ago Plan: This is a pleasant 59 years old male who presents with acute CHF. Continue with diuretic, cardiology consult is appreciated to follow recommendation. follow up pulmonary service recommendation. Pain management with Toradol and lidocaine patch. neurontin for periphal neuor DC sitter at bedside Labs and medication were reviewed.. Continue same treatment. Continue with symptomatic treatment. Resume home medication. Monitor lytes and vitals. DVT and GI prophylaxis. Further recommendations of the clinical course of the patient DVT prophylaxis: Subcutaneous heparin GI Prophylaxis: Pepcid Prognosis is guarded
[2019-04-09 20:20] LABS: Glucose,Whole Blood 199 mg/dL (75-99)
[2019-04-09] MEDS: MIRTAZAPINE 15 MG TAB PO SCH (20:55)
--- NOTE | 2019-04-09 21:39 | CT ---
EXAMINATION TYPE: CT brain wo con for TPA DATE OF EXAM: 04/09/2019 COMPARISON: None HISTORY: Unresponsive CT DLP: 1066.4 mGycm Automated exposure control for dose reduction was used. FINDINGS: There is mild cerebral atrophy. There is no mass effect nor midline shift. There is no sign of intrac ranial hemorrhage. Calvarium is intact. IMPRESSION: MILD ATROPHY. NO ACUTE INTRACRANIAL ABNORMALITY.
--- NOTE | 2019-04-09 21:44 | XR ---
EXAMINATION TYPE: XR chest 1V portable DATE OF EXAM: 04/09/2019 COMPARISON: 04/08/2019 HISTORY: Respiratory distress TECHNIQUE: Single frontal view of the chest is obtained. FINDINGS: Portable view shows a normal heart and mediastinum. Lungs are clear. Diaphragm is normal. There are chest leads. Bony thorax appears normal. IMPRESSION: Normal chest. No change.
[2019-04-09 22:09] LABS: Partial Thromboplastin Time 26.6 sec (22.0-30.0); Prothrombin Time 10.6 sec (9.0-12.0)
[2019-04-09 22:11] LABS: Basophils # (A) 0.1 k/uL (0-0.2); Basophils % (A) 2 %; Eosinophils # (A) 0.2 k/uL (0-0.7); Eosinophils % (A) 3 %; HCT 41.2 % (39.0-53.0); HGB 13.4 gm/dL (13.0-17.5); Lymphocytes # (A) 2.5 k/uL (1.0-4.8); Lymphocytes % (A) 39 %; MCH 30.8 pg (25.0-35.0); MCHC 32.5 g/dL (31.0-37.0); MCV 94.8 fL (80.0-100.0); Mean Platelet Volume 7.6; Monocytes # (A) 0.4 k/uL (0-1.0); Monocytes % (A) 6 %; Neutrophils % (A) 48 %; Platelet Count 230 k/uL (150-450); RBC 4.34 m/uL (4.30-5.90); RDW 13.2 % (11.5-15.5); WBC 6.3 k/uL (3.8-10.6)
[2019-04-09 22:26] LABS: Albumin 3.3 g/dL (3.5-5.0); Calcium 8.8 mg/dL (8.4-10.2); Potassium 4.2 mmol/L (3.5-5.1); Total Bilirubin 0.5 mg/dL (0.2-1.3); Total Protein 6.4 g/dL (6.3-8.2)
--- NOTE | 2019-04-09 22:34 | CT ---
EXAMINATION TYPE: CODE STROKE: CTA head neck DATE OF EXAM: 04/09/2019 HISTORY: Weakness, unresponsive COMPARISON: None CT DLP: 381.9 mGycm. Automated Exposure Control for Dose Reduction was Utilized. TECHNIQUE: CTA scan of the neck is performed with IV Contrast, patient injected with 65 mL of Isovue 370, axial images are obtained, coronal and sagittal reformatted images are reviewed. Three-D recons tructed images are created on an independent workstation and reviewed. FINDINGS: There is mild atheromatous change at the aortic arch. There is normal branching pattern of the great vessels on the aortic arch. There is bilateral arterial flow in the subclavian arteries. There is art erial flow in the common internal and external arteries bilaterally. There is bilateral arterial flow in the vertebral arteries. Left vertebral artery is larger than the right. Basilar artery fills only from the left side. There is plaque formation at the carotid artery bifurcations and approximate 50% narrowing on the right side and 25% narrowing on the left side. There is no evidence of carotid or vertebral artery dissection. There is arterial flow in the anterior middle and posterior cerebral arteries. There is no evidence o f intracranial aneurysm or neovascularity. I see no evidence of intracranial arterial stenosis. There is normal contrast opacification of the venous sinuses. There is no mass effect. IMPRESSION: Bilateral plaque formation at the carotid artery bifurcations with lumen narrowing as above. No evide nce for hemodynamic stenosis. No intracranial angiographic abnormality identified.
[2019-04-10] MEDS: ONDANSETRON 4 MG/2 ML VIAL IVP PRN (00:16)
[2019-04-10] MEDS: KETOROLAC 30 MG/ML 1 ML VIAL IVP PRN ×2 (02:50→17:33)
[2019-04-10] MEDS: LORazepam 0.5 MG TAB PO PRN (03:00)
[2019-04-10 06:19] LABS: Basophils # (A) 0.1 k/uL (0-0.2); Basophils % (A) 1 %; Eosinophils # (A) 0.2 k/uL (0-0.7); Eosinophils % (A) 3 %; HCT 43.7 % (39.0-53.0); HGB 15.1 gm/dL (13.0-17.5); Lymphocytes # (A) 2.9 k/uL (1.0-4.8); Lymphocytes % (A) 43 %; MCH 31.9 pg (25.0-35.0); MCHC 34.5 g/dL (31.0-37.0); MCV 92.5 fL (80.0-100.0); Mean Platelet Volume 7.2; Monocytes # (A) 0.4 k/uL (0-1.0); Monocytes % (A) 6 %; Neutrophils # (A) 3.1 k/uL (1.3-7.7); Neutrophils % (A) 46 %; Platelet Count 250 k/uL (150-450); RBC 4.72 m/uL (4.30-5.90); RDW 12.9 % (11.5-15.5); WBC 6.7 k/uL (3.8-10.6)
[2019-04-10 06:22] LABS: Glucose,Whole Blood 202 mg/dL (75-99)
[2019-04-10 06:25] LABS: Calcium 9.1 mg/dL (8.4-10.2); Potassium 4.6 mmol/L (3.5-5.1)
[2019-04-10] MEDS: INSULIN ASPART (NovoLOG) 100 UNIT/ML VIAL SQ SCH ×3 (06:27→17:32)
[2019-04-10] MEDS: GABAPENTIN 100 MG CAP PO SCH (08:23)
[2019-04-10] MEDS: NICOTINE 21MG/24HR PATCH TRANSDERM SCH (08:23)
[2019-04-10] MEDS: METOPROLOL TARTRATE 25 MG TAB PO SCH (08:24)
[2019-04-10] MEDS: HEPARIN SODIUM,PORCINE 5,000 UNIT/ML 1 ML VIAL SQ SCH (08:24)
[2019-04-10] MEDS: FAMOTIDINE 20 MG TAB PO SCH (08:24)
[2019-04-10] MEDS: FUROSEMIDE 10 MG/ML 4 ML VIAL IV SCH (08:24)
[2019-04-10] MEDS: ASPIRIN 81 MG PO SCH (08:24)
[2019-04-10] MEDS: SPIRONOLACTONE 25 MG TAB PO SCH (08:24)
[2019-04-10] MEDS: LOSARTAN 25 MG TAB PO SCH (08:24)
[2019-04-10] MEDS: LIDOCAINE 5% PATCH TOPICAL SCH (08:24)
[2019-04-10 08:42] VITALS: RESP 20; TEMP 98.5
[2019-04-10] MEDS: SYMBICORT 160-4.5 MCG INHALER INHALATION SCH (09:05)
[2019-04-10 11:39] LABS: Glucose,Whole Blood 155 mg/dL (75-99)
[2019-04-10] MEDS ORDERED: LORazepam 2 MG/ML INJ IV ONE (15:14)
[2019-04-10] MEDS ORDERED: GABAPENTIN 100 MG CAP PO STA (15:14)
[2019-04-10] MEDS ORDERED: ASPIRIN 325 MG TAB PO SCH (15:15)
[2019-04-10 16:39] VITALS: BP 102/77; PULSE 87
[2019-04-10 16:56] LABS: Glucose,Whole Blood 183 mg/dL (75-99)
[2019-04-10] MEDS ORDERED: INSULIN ASPART (NovoLOG) 100 UNIT/ML VIAL SQ ONE (17:13)
--- NOTE | 2019-04-10 21:59 | P.DS ---
Providers Date of admission: 04/06/19 07:04 Attending physician: Michael Ramirez MD Consults: 04/06/19 07:04 Consult Physician Routine Consulting Provider: Matthew Soni Consult Reason/Comments: CHF exacerbation Do you want consulting provider notified?: Yes 04/06/19 13:52 Consult Physician Urgent Consulting Provider: Charles Padilla Consult Reason/Comments: chf vz pna Do you want consulting provider notified?: Yes 04/07/19 08:09 Consult Physician Urgent Consulting Provider: Eric Schilling Consult Reason/Comments: suicide Do you want consulting provider notified?: Yes 04/10/19 03:10 Consult Physician Routine Consulting Provider: Brendon Bernabe Consult Reason/Comments: neurologic defecits Do you want consulting provider notified?: Already Contacted Primary care physician: Stated None Hospital Course: Diagnoses: sudden onset of left eye blurriness and pain , unresponsiveness and weakness on the left side, DDx: conversion syndrome, malingering, rule out stroke Acute on chronic systolic congestive heart failure with ejection fraction 35% Possible acute bronchitis versus early pneumonia. Less likely drug seeking behavior Non-adherence to therapy Abdominal pain and tenderness. Completely resolved patient has regular bowel movements History of coronary artery disease Type 2 diabetes mellitus Hypertension Hyperlipidemia Peripheral neuropathy COPD, not in acute exacerbation History of drug abuse, with accidental heroin overdose 2-3 months ago Hospital course This is a pleasant 59 years old male with past medical history of coronary artery disease, heart failure, COPD, diabetes mellitus, hyperlipidemia, hypertension, diabetic neuropathy. Presents because of dyspnea, patient's was admitted for acute congestive heart failure and he was treated with diuretic and a breathing treatment area patient has been evaluated by mechanical car checker and senior electrical design engineer, patient showed interval improvement and on the day of discharge his dyspnea is significantly improved and no other symptoms other than below. Also patient was treated for possible respiratory infection although it felt less likely however patient prior to discharge is improved significantly, patient is afebrile and with no leukocytosis. Sugar is controlled and dressed with flaps are stable. Patient was suspected to be suicidal however psychiatrist cleared him with no need for any inpatient psychiatric therapy. Patient denies suicidal ideation currently. Burnett was added. Also patient complains from peripheral neuropathy when he has numbness and tingling in his hands and feet for many months, at least more than 6 months as per patient. Patient was supposed to take Neurontin however he was not follow-up with his doctor for the last 2 months and he has no prescription refills. Patient was re started on Neurontin and defatted, and patient was instructed to follow up with his doctor for further care. Patient also was complaining of from back pain which is controlled with lidocaine patch and Toradol. patient was cleared by all consultants and he was about to be discharged to [facility] for rehab, he was pending insurance approval. last night they called "stroke code for him because he developed sudden left- sided blurred vision and dysarthria with periods of unresponsiveness while he is awake he was confused and he thought he was at [facility] as was told me, this morning his back to his usual state as he is alert awake and oriented, he is not sure when exactly he is improved. however he still complaining of from blurry left eye and pain radiating to the back of the head from the side. 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 Patient could not walk because he says that it hurts in his left foot. the pain shoots up as per pt from his left foot goes up to his left hip and then up to his left shoulder and goes down to his left hand ( pt pointed the track of pain of his pain from his left foot all the way up to his left hand across his left hip and shoulder) Patient also complaining of from numbness and tingling in his both feet and legs and both hands. pt was on aspirin 81 mg and we increased it to 325 mg, how ever pt is still asking for pain medication every day including today (give only one shot of pain medicine) usually he wants narcotics eg Dilaudid unfortanatly we don't have neurologist in [facility] over the week , so i called at [facility] and discussed the case with her and she kindly accepted the pt , i talked to the pt as well and he agrees for the transfer Patient was cleared for discharge by all consultants including cardiology, pulmonary, however due to new neuro s/s we will transfer pt to [facility] Problems and management plan were discussed with the patient and he verbalized understanding and acceptance Patient was found stable to be transported to [place] at [facility] Gen: patient is a AAOx3, no distress CVS: S1-S2, RRR, no murmur Lungs: B/L CTA, no wheezing Abdomen: soft, no distention, no tenderness, positive bowel sounds Extremity: no leg edema or induration Neuro exam: cranial nn are grossly intact, no strabismus is noted, he keeps his eye closed at times and open it up at other times. strength exam is limited by pt complaining of pain however his left hand biomedical engineering professor is about 4+/5 compared to right, left leg looks week but when i encouraged pt to briskly push his leg his strength looked to me comparable to other side as 5/5. meningeal signs are absent Time spent more than 35 minutes Patient Condition at Discharge: Fair Plan - Discharge Summary Discharge Rx Participant: No New Discharge Prescriptions: New RX: Spironolactone [Aldactone] 25 mg PO DAILY tab RX: Aspirin 81 mg PO DAILY chew RX: LORazepam [Ativan] 0.5 mg PO Q8HR PRN tab PRN Reason: Agitation Or Acute Anxiety RX: Losartan [Cozaar] 25 mg PO DAILY tab RX: Ipratropium-Albuterol Nebulize [Duoneb 0.5 mg-3 mg/3 ml Soln] 3 ml INHALATION RT-Q4H PRN ampul.neb PRN Reason: Shortness Of Breath Or Wheezing RX: Nicotine 21Mg/24Hr Patch [Habitrol] 1 patch TRANSDERM DAILY patch RX: Heparin Sodium,Porcine [Heparin Sodium] 5,000 unit SQ Q12HR vial Furosemide [Lasix] 40 mg PO BID #60 tablet RX: Lidocaine 5% Patch [Lidoderm 5% Patch] 1 patch TOPICAL DAILY patch RX: Metoprolol Tartrate [Lopressor] 25 mg PO BID tab RX: Gabapentin [Neurontin] 100 mg PO BID cap RX: INSULIN ASPART (NovoLOG) [NovoLOG (formulary)] 0 unit SQ ACHS vial RX: Mirtazapine [Remeron] 15 mg PO HS tab RX: guaiFENesin-DM 100-10MG/5ML [Robitussin DM] 10 ml PO Q8H PRN cup PRN Reason: Cough RX: Budesonide-Formot 160-4.5 Mcg [Symbicort 160-4.5 Mcg Inhaler] 2 puff INHALATION RT-BID puff Ketorolac [Toradol] 10 mg PO Q6HR 3 Days #12 tab RX: Acetaminophen Tab [Tylenol] 325 mg PO Q6HR PRN tab PRN Reason: Fever and/ or Mild Pain Discharge Medication List Furosemide [Lasix] 40 mg PO BID #60 tablet 04/09/19 [Rx] Ketorolac [Toradol] 10 mg PO Q6HR 3 Days #12 tab 04/09/19 [Rx] RX: Acetaminophen Tab [Tylenol] 325 mg PO Q6HR PRN tab 04/09/19 [Rx] RX: Aspirin 81 mg PO DAILY chew 04/09/19 [Rx] RX: Budesonide-Formot 160-4.5 Mcg [Symbicort 160-4.5 Mcg Inhaler] 2 puff INHALATION RT-BID puff 04/09/19 [Rx] RX: Gabapentin [Neurontin] 100 mg PO BID cap 04/09/19 [Rx] RX: Heparin Sodium,Porcine [Heparin Sodium] 5,000 unit SQ Q12HR vial 04/09/19 [Rx] RX: INSULIN ASPART (NovoLOG) [NovoLOG (formulary)] 0 unit SQ ACHS vial 04/09/19 [Rx] RX: Ipratropium-Albuterol Nebulize [Duoneb 0.5 mg-3 mg/3 ml Soln] 3 ml INHALATION RT-Q4H PRN ampul.neb 04/09/19 [Rx] RX: LORazepam [Ativan] 0.5 mg PO Q8HR PRN tab 04/09/19 [Rx] RX: Lidocaine 5% Patch [Lidoderm 5% Patch] 1 patch TOPICAL DAILY patch 04/09/19 [Rx] RX: Losartan [Cozaar] 25 mg PO DAILY tab 04/09/19 [Rx] RX: Metoprolol Tartrate [Lopressor] 25 mg PO BID tab 04/09/19 [Rx] RX: Mirtazapine [Remeron] 15 mg PO HS tab 04/09/19 [Rx] RX: Nicotine 21Mg/24Hr Patch [Habitrol] 1 patch TRANSDERM DAILY patch 04/09/19 [Rx] RX: Spironolactone [Aldactone] 25 mg PO DAILY tab 04/09/19 [Rx] RX: guaiFENesin-DM 100-10MG/5ML [Robitussin DM] 10 ml PO Q8H PRN cup 04/09/19 [Rx] Follow up Appointment(s)/Referral(s): Salvador Martínez MD [REFERRING] - 1 Week Moriah Sharif MD [Medical Doctor] - 1 Week None,Stated [Primary Care Provider] - 1-2 days Kelechi Gross MD [STAFF PHYSICIAN] - 1 Week (pain management -office unsure if your insurance is accepted. Please call to give further information and set up an appointment) Activity/Diet/Wound Care/Special Instructions: [facility] cardiac diet activity as tolerated Discharge Disposition: OTHER INSTITUTION NOT DEFINED
== END 2019-04-10 17:52 | disposition short-term general hospital (02) | DRG 291 ==
LOC: EC 05:18 → 3SCARD 07:04
PROVIDERS: ADMIT Internal Medicine; ATTEND Internal Medicine
DX: I11.0 Hypertensive heart disease with heart failure (principal); I63.9 Cerebral infarction, unspecified; J44.0 Chronic obstructive pulmonary disease with (acute) lower respiratory infection; R45.851 Suicidal ideations; T82.855A Stenosis of coronary artery stent, initial encounter; G81.94 Hemiplegia, unspecified affecting left nondominant side; E11.40 Type 2 diabetes mellitus with diabetic neuropathy, unspecified; E78.5 Hyperlipidemia, unspecified; F11.10 Opioid abuse, uncomplicated; F17.210 Nicotine dependence, cigarettes, uncomplicated; F31.9 Bipolar disorder, unspecified; G89.29 Other chronic pain; I25.10 Atherosclerotic heart disease of native coronary artery without angina pectoris; I25.2 Old myocardial infarction; I25.5 Ischemic cardiomyopathy; I50.23 Acute on chronic systolic (congestive) heart failure; R45.1 Restlessness and agitation; F44.9 Dissociative and conversion disorder, unspecified; Z76.5 Malingerer [conscious simulation]; Y83.1 Surgical operation with implant of artificial internal device as the cause of abnormal reaction of the patient, or of later complication, without mention of misadventure at the time of the procedure; Z59.0 Homelessness; Z79.4 Long term (current) use of insulin; Z79.82 Long term (current) use of aspirin; Z80.9 Family history of malignant neoplasm, unspecified; Z82.49 Family history of ischemic heart disease and other diseases of the circulatory system; Z83.3 Family history of diabetes mellitus; Z91.14 Patient's other noncompliance with medication regimen; Z91.19 Patient's noncompliance with other medical treatment and regimen; H53.8 Other visual disturbances; J20.9 Acute bronchitis, unspecified; R47.1 Dysarthria and anarthria; Z90.49 Acquired absence of other specified parts of digestive tract; M79.672 Pain in left foot; M25.519 Pain in unspecified shoulder
CPT/HCPCS: 36415; 70450; 70496; 70498; 71045; 74176; 80048; 80053; 80320; 82009; 83036; 83605; 83735; 83880; 84484; 85025; 85379; 85610; 85730; 93005; 94640; 96374; 96375; 99285

== ENCOUNTER 2019-04-17 16:52 | Emergency (ER) | payer OTHER ==
--- NOTE | 2019-04-17 18:33 | ED ---
General Adult HPI - General Chief complaint: Recheck/Abnormal Lab/Rx Stated complaint: CANT WALK Time Seen by Provider: 04/17/19 17:08 Source: patient, EMS Mode of arrival: EMS Limitations: no limitations - History of Present Illness Initial comments: Patient is a 59-year-old male presenting to emergency Department with a chief complaint of peripheral neuropathy. Patient reports he is a diabetic and continues to have peripheral neuropathy which is currently being treated with gabapentin. Patient reports that he has not been able to obtain his medication because he signed out AMA during his last hospital visit. Patient also reports she doesn't have his Lasix, atenolol and Plavix for the same reasons. Patient reports he is obtaining a new primary care physician within a week. Patient reports he has developed increased pain in his bilateral lower extremities due to diabetic neuropathy. Patient reports she is able to control his blood sugar with his insulin. Patient reports she has not taken the gabapentin for over a month. - Related Data Home Medications Medication Instructions Recorded Confirmed INSULIN ASPART (NovoLOG) [NovoLOG See Protocol SQ ACHS 04/17/19 04/17/19 (formulary)] Lidocaine 5% Patch [Lidoderm 5% 1 patch TRANSDERM DAILY 04/17/19 04/17/19 Patch] Previous Rx's Medication Instructions Recorded Acetaminophen Tab [Tylenol] 325 mg PO Q6HR PRN tab 04/09/19 Aspirin 81 mg PO DAILY chew 04/09/19 Budesonide-Formot 160-4.5 Mcg 2 puff INHALATION RT-BID puff 04/09/19 [Symbicort 160-4.5 Mcg Inhaler] Furosemide [Lasix] 40 mg PO BID #60 tablet 04/09/19 Gabapentin [Neurontin] 100 mg PO BID cap 04/09/19 Heparin Sodium,Porcine [Heparin 5,000 unit SQ Q12HR vial 04/09/19 Sodium] Ipratropium-Albuterol Nebulize 3 ml INHALATION RT-Q4H PRN 04/09/19 [Duoneb 0.5 mg-3 mg/3 ml Soln] ampul.neb Ketorolac [Toradol] 10 mg PO Q6HR 3 Days #12 tab 04/09/19 LORazepam [Ativan] 0.5 mg PO Q8HR PRN tab 04/09/19 Losartan [Cozaar] 25 mg PO DAILY tab 04/09/19 Metoprolol Tartrate [Lopressor] 25 mg PO BID tab 04/09/19 Mirtazapine [Remeron] 15 mg PO HS tab 04/09/19 Nicotine 21Mg/24Hr Patch [Habitrol] 1 patch TRANSDERM DAILY patch 04/09/19 Spironolactone [Aldactone] 25 mg PO DAILY tab 04/09/19 guaiFENesin-DM 100-10MG/5ML 10 ml PO Q8H PRN cup 04/09/19 [Robitussin DM] Atenolol [Tenormin] 100 mg PO BID #20 tab 04/17/19 Clopidogrel Bisulfate [Plavix] 75 mg PO DAILY #10 tab 04/17/19 Furosemide [Lasix] 40 mg PO BID #20 tablet 04/17/19 Gabapentin 800 mg PO TID #20 tab 04/17/19 Allergies Allergy/AdvReac Type Severity Reaction Status Date / Time Penicillins Allergy Unknown Verified 04/17/19 18:10 Childhood Review of Systems ROS Statement: Those systems with pertinent positive or pertinent negative responses have been documented in the HPI. ROS Other: All systems not noted in ROS Statement are negative. Past Medical History Past Medical History: Coronary Artery Disease (CAD), Heart Failure, COPD, CVA/TIA, Diabetes Mellitus, Hyperlipidemia, Hypertension, Myocardial Infarction ([place]) Additional Past Medical History / Comment(s): Pt recently admitted to [facility] on 03/27/19 CHF. Other Hx: Ischemic cardiomyopathy with EF in September 2018 at 35%, PVCs, chronic low back pain d/t vertebral fractures years ago as well as cervical pinched nerves, DDD, IDDM type II, neuropathy bilateral hands/legs and feet, hep c, Stroke 04/17 Last Myocardial Infarction Date:: October 2018 History of Any Multi-Drug Resistant Organisms: None Reported Past Surgical History: Cholecystectomy, Heart Catheterization, Heart Catheterization With Stent Additional Past Surgical History / Comment(s): R heel I&D, colonoscopy. Past Anesthesia/Blood Transfusion Reactions: No Reported Reaction Date of Last Stent Placement:: 2011 Past Psychological History: Anxiety, Bipolar, Depression Smoking Status: Current every day smoker Past Alcohol Use History: None Reported Past Drug Use History: None Reported - Past Family History Mother Family Medical History: Cancer Father Family Medical History: Coronary Artery Disease (CAD), Diabetes Mellitus, Hypertension General Exam Limitations: no limitations General appearance: alert, in no apparent distress Head exam: Present: atraumatic, normocephalic, normal inspection Eye exam: Present: normal appearance Pupils: Present: normal accommodation ENT exam: Present: normal exam, mucous membranes moist, normal external ear exam Neck exam: Present: normal inspection, full ROM Respiratory exam: Present: normal lung sounds bilaterally Cardiovascular Exam: Present: regular rate, normal rhythm, normal heart sounds Extremities exam: Present: normal inspection, full ROM, tenderness (Cutaneous tenderness on bilateral lower extremities especially at the feet.), normal capillary refill, other (+2 dorsalis pedis and posterior tibialis bilaterally.) Back exam: Present: normal inspection, full ROM Neurological exam: Present: alert, oriented X3, normal gait Psychiatric exam: Present: normal affect, normal mood Skin exam: Present: warm, intact, normal color Course Vital Signs 04/17/19 16:57 Temperature 97.7 F Pulse Rate 109 H Respiratory 17 Rate O2 Sat by Pulse 99 Oximetry Medical Decision Making - Medical Decision Making Patient is a 59-year-old male with type 2 diabetes presenting to emergency Department with a chief complaint peripheral neuropathy. Patient has not taken his medication for his peripheral neuropathy due to an ongoing issue with his physician. Patient is also not taking his other medications as well. Patient reports he has an appointment within a week with a new primary care. I spoke with the pharmacy technicians to inform me about the last medication refill the patient had. Patient will get a refill of Plavix, atenolol, gabapentin and Lasix. Strict return parameters were thoroughly discussed with patient was understanding and agreeable. Case discussed physician. Patient advised to follow-up with primary care. Disposition Clinical Impression: Encounter for medication refill, Peripheral neuropathy Disposition: HOME SELF-CARE Condition: Stable Instructions (If sedation given, give patient instructions): Diabetic Peripheral Neuropathy (ED) Additional Instructions: Please take prescribed medication as directed. Please follow up with primary care. Please return to emergency department if symptoms worsen. Prescriptions: Gabapentin 800 mg PO TID #20 tab Furosemide [Lasix] 40 mg PO BID #20 tablet Clopidogrel Bisulfate [Plavix] 75 mg PO DAILY #10 tab Atenolol [Tenormin] 100 mg PO BID #20 tab Is patient prescribed a controlled substance at d/c from ED?: No Referrals: [facility] [Primary Care Provider] - 1-2 days Time of Disposition: 18:33
[2019-04-17 19:27] VITALS: BP 145/74; PULSE 87; RESP 19; TEMP 97.5
== END 2019-04-17 19:00 | disposition home or self-care (01) ==
LOC: EC 16:52
DX: Z76.0 Encounter for issue of repeat prescription (principal); E11.42 Type 2 diabetes mellitus with diabetic polyneuropathy; I25.10 Atherosclerotic heart disease of native coronary artery without angina pectoris; I11.0 Hypertensive heart disease with heart failure; I50.9 Heart failure, unspecified; I25.2 Old myocardial infarction; F17.200 Nicotine dependence, unspecified, uncomplicated; Z79.4 Long term (current) use of insulin; Z88.0 Allergy status to penicillin; Z95.5 Presence of coronary angioplasty implant and graft; Z86.73 Personal history of transient ischemic attack (TIA), and cerebral infarction without residual deficits
CPT/HCPCS: 99283

== ENCOUNTER 2019-04-24 06:56 | Emergency (ER) | payer OTHER ==
[2019-04-24 07:08] VITALS: TEMP 98.6
[2019-04-24] MEDS ORDERED: SODIUM CHLORIDE 0.9% 500 ML 500 ML IV STA (07:37)
--- NOTE | 2019-04-24 07:41 | ED ---
General Adult HPI - General Chief complaint: Back Pain/Injury Stated complaint: Flank Pain Time Seen by Provider: 04/24/19 07:15 Source: patient, EMS, RN notes reviewed, old records reviewed Mode of arrival: EMS Limitations: no limitations - History of Present Illness Initial comments: Patient is a pleasant 59-year-old male presenting to the emergency Department with complaints of left rib pain. Patient had a fall 4 days ago. Patient states he may have had a curb or something in his left leg gave out. Patient has chronic left leg weakness. Patient does have history of stroke. Patient states he landed on his left side. Patient complains of discomfort of his left ribs. Discomfort increases with movement and deep breaths. Patient otherwise does not have dyspnea. No neck or back pain acutely. No head injury or loss of consciousness. Patient requests pain medication. Patient did receive fentanyl by EMS. - Related Data Previous Rx's Medication Instructions Recorded Furosemide [Lasix] 40 mg PO BID #60 tablet 04/09/19 Atenolol [Tenormin] 100 mg PO BID #20 tab 04/17/19 Clopidogrel Bisulfate [Plavix] 75 mg PO DAILY #10 tab 04/17/19 Gabapentin 800 mg PO TID #20 tab 04/17/19 Allergies Allergy/AdvReac Type Severity Reaction Status Date / Time Penicillins Allergy Unknown Verified 04/24/19 08:46 Childhood Review of Systems ROS Statement: Those systems with pertinent positive or pertinent negative responses have been documented in the HPI. ROS Other: All systems not noted in ROS Statement are negative. Constitutional: Denies: fever Eyes: Denies: eye pain ENT: Denies: ear pain Respiratory: Denies: cough Cardiovascular: Reports: chest pain (Left ribs) Endocrine: Denies: fatigue Gastrointestinal: Denies: abdominal pain Genitourinary: Denies: dysuria Musculoskeletal: Reports: back pain (Chronic pain, unchanged) Skin: Denies: rash Neurological: Reports: weakness (Chronic from stroke). Denies: headache Past Medical History Past Medical History: Coronary Artery Disease (CAD), Heart Failure, COPD, CVA/TIA, Diabetes Mellitus, Hyperlipidemia, Hypertension, Myocardial Infarction ([place]) Additional Past Medical History / Comment(s): Pt recently admitted to [facility] on 03/27/19 CHF. Other Hx: Ischemic cardiomyopathy with EF in September 2018 at 35%, PVCs, chronic low back pain d/t vertebral fractures years ago as well as cervical pinched nerves, DDD, IDDM type II, neuropathy bilateral hands/legs and feet, hep c, Stroke 04/17 Last Myocardial Infarction Date:: October 2018 History of Any Multi-Drug Resistant Organisms: None Reported Past Surgical History: Cholecystectomy, Heart Catheterization, Heart Catheterization With Stent Additional Past Surgical History / Comment(s): R heel I&D, colonoscopy. Past Anesthesia/Blood Transfusion Reactions: No Reported Reaction Date of Last Stent Placement:: 2011 Past Psychological History: Anxiety, Bipolar, Depression Smoking Status: Current every day smoker Past Alcohol Use History: None Reported Past Drug Use History: None Reported - Past Family History Mother Family Medical History: Cancer Father Family Medical History: Coronary Artery Disease (CAD), Diabetes Mellitus, Hypertension General Exam Limitations: no limitations General appearance: alert, in no apparent distress Head exam: Present: atraumatic, normocephalic Eye exam: Present: normal appearance, PERRL ENT exam: Present: normal oropharynx Neck exam: Present: normal inspection. Absent: tenderness Respiratory exam: Present: normal lung sounds bilaterally, chest wall tenderness (Left ribs, lower anterior lateral and posterior) Cardiovascular Exam: Present: regular rate, normal rhythm GI/Abdominal exam: Present: soft, tenderness (Mild to moderate tenderness left upper quadrant). Absent: distended Extremities exam: Present: normal inspection. Absent: tenderness Back exam: Present: tenderness (Left lower posterior ribs) Neurological exam: Present: alert, motor sensory deficit (Left leg weakness that patient states is normal for him) Psychiatric exam: Present: normal affect, normal mood Skin exam: Present: other (Track cleary right arm) Course Vital Signs 04/24/19 06:57 Temperature 98.6 F Pulse Rate 102 H Respiratory 18 Rate Blood Pressure 149/97 O2 Sat by Pulse 100 Oximetry EKG Findings - EKG Comments: EKG Findings:: Sinus tachycardia 103. NC 148. QRS 82. QT 350. QTC or 58. Normal axis. Septal Q waves. No acute ST change. Medical Decision Making - Medical Decision Making Patient reevaluated and updated. - Lab Data Result diagrams: 04/24/19 07:10 04/24/19 07:10 Lab Results 04/24/19 04/24/19 04/24/19 Range/Units 07:10 07:10 07:10 WBC 8.3 (3.8-10.6) k/uL RBC 3.89 L (4.30-5.90) m/uL Hgb 12.4 L (13.0-17.5) gm/dL Hct 36.8 L (39.0-53.0) % MCV 94.6 (80.0-100.0) fL MCH 31.8 (25.0-35.0) pg MCHC 33.6 (31.0-37.0) g/dL RDW 12.8 (11.5-15.5) % Plt Count 203 (150-450) k/uL Neutrophils % 72 % Lymphocytes % 20 % Monocytes % 4 % Eosinophils % 1 % Basophils % 1 % Neutrophils # 5.9 (1.3-7.7) k/uL Lymphocytes # 1.6 (1.0-4.8) k/uL Monocytes # 0.4 (0-1.0) k/uL Eosinophils # 0.1 (0-0.7) k/uL Basophils # 0.1 (0-0.2) k/uL PT 10.3 (9.0-12.0) sec INR 1.0 (<1.2) APTT 27.5 (22.0-30.0) sec Sodium 138 (137-145) mmol/L Potassium 4.4 (3.5-5.1) mmol/L Chloride 108 H (98-107) mmol/L Carbon Dioxide 24 (22-30) mmol/L Anion Gap 6 mmol/L BUN 16 (9-20) mg/dL Creatinine 0.69 (0.66-1.25) mg/dL Est GFR (CKD-EPI)AfAm >90 (>60 ml/min/1.73 sqM) Est GFR (CKD-EPI)NonAf >90 (>60 ml/min/1.73 sqM) Glucose 203 H (74-99) mg/dL Calcium 8.5 (8.4-10.2) mg/dL Total Bilirubin 0.7 (0.2-1.3) mg/dL AST 40 (17-59) U/L ALT 44 (21-72) U/L Alkaline Phosphatase 72 (38-126) U/L Total Protein 6.5 (6.3-8.2) g/dL Albumin 3.5 (3.5-5.0) g/dL Amylase 52 (30-110) U/L Lipase 86 (23-300) U/L - Radiology Data Radiology results: report reviewed (Computed tomography scan of the abdomen pelvis shows mild hepatomegaly. Bilateral effusions, right greater than left. No acute traumatic report.), image reviewed (Left rib x-rays with PA chest shows no pneumothorax. No rib fractures.) Disposition Clinical Impression: Rib contusion, Fall, Chronic back pain Disposition: HOME SELF-CARE Condition: Stable Instructions (If sedation given, give patient instructions): Chest Wall Pain (ED) Additional Instructions: Please follow-up with primary care physician in the next couple days for recheck. Return for difficulty in breathing, worsening or change in symptoms, or other concerns. Is patient prescribed a controlled substance at d/c from ED?: No Referrals: [facility] [Primary Care Provider] - 1-2 days Time of Disposition: 09:11
[2019-04-24 08:09] LABS: Basophils # (A) 0.1 k/uL (0-0.2); Basophils % (A) 1 %; Eosinophils # (A) 0.1 k/uL (0-0.7); Eosinophils % (A) 1 %; HCT 36.8 % (39.0-53.0); HGB 12.4 gm/dL (13.0-17.5); Lymphocytes # (A) 1.6 k/uL (1.0-4.8); Lymphocytes % (A) 20 %; MCH 31.8 pg (25.0-35.0); MCHC 33.6 g/dL (31.0-37.0); MCV 94.6 fL (80.0-100.0); Mean Platelet Volume 6.9; Monocytes # (A) 0.4 k/uL (0-1.0); Monocytes % (A) 4 %; Neutrophils # (A) 5.9 k/uL (1.3-7.7); Neutrophils % (A) 72 %; Platelet Count 203 k/uL (150-450); RBC 3.89 m/uL (4.30-5.90); RDW 12.8 % (11.5-15.5); WBC 8.3 k/uL (3.8-10.6)
--- NOTE | 2019-04-24 08:12 | XR ---
EXAMINATION TYPE: XR ribs LT w pa chest xray , 5 VIEWS DATE OF EXAM ORDERED: 04/24/2019 HISTORY: fall. COMPARISON: Previous study dated 04/09/2019. FINDINGS: There is slight irregularity of the left eighth rib. This may relate to previous injury. N o acute fracture is seen. No pneumothorax is seen. The lungs are clear. Heart size upper limits of no rmal. Pleural spaces are clear. IMPRESSION: I DO NOT SEE EVIDENCE OF AN ACUTE RIB FRACTURE AT THIS TIME.
[2019-04-24 08:14] LABS: ALT 44 U/L (21-72); AST 40 U/L (17-59); African American GFR (CKD) >90 (>60 ml/min/1.73 sqM); Albumin 3.5 g/dL (3.5-5.0); Alkaline Phosphatase 72 U/L (38-126); Amylase 52 U/L (30-110); Anion Gap 6 mmol/L; Blood Urea Nitrogen 16 mg/dL (9-20); Calcium 8.5 mg/dL (8.4-10.2); Carbon Dioxide 24 mmol/L (22-30); Chloride 108 mmol/L (98-107); Glucose 203 mg/dL (74-99); Potassium 4.4 mmol/L (3.5-5.1); Sodium 138 mmol/L (137-145); Total Bilirubin 0.7 mg/dL (0.2-1.3); Total Protein 6.5 g/dL (6.3-8.2)
[2019-04-24 08:18] LABS: Partial Thromboplastin Time 27.5 sec (22.0-30.0); Prothrombin Time 10.3 sec (9.0-12.0)
[2019-04-24] MEDS ORDERED: MORPHINE SULFATE 4 MG/ML SYRINGE IV STA (08:22)
--- NOTE | 2019-04-24 09:01 | CT ---
EXAMINATION TYPE: CT abdomen pelvis w con DATE OF EXAM: 04/24/2019 REFERENCE: Previous study dated 04/07/2019 HISTORY: luq trauma HISTORY: Fall, LUQ pain, flank pain CT DLP: 720.9 mGy Automated exposure control for dose reduction was used. TECHNIQUE: Helical acquisition through the abdomen and pelvis was obtained following the oral ingesti on of without Oral Contrast and following intravenous administration of 100 mL of Isovue 300. The alissa a was reformatted in axial, coronal and sagittal projections. FINDINGS: There are bilateral pleural effusions, greater on the right than the left. The left-sided effusion has decreased in size somewhat. There is some associated relaxation atelectasis. There is no pericardial fluid. Heart size is upper limits of normal. Within the abdomen, the liver is prominent measuring 19 cm. The gallbladder is been removed. The sple en is unremarkable. Both adrenal glands are normal. There is a stable 11 mm cyst in the upper pole of the left kidney. There is also a 14 mm cyst in the mid polar region of the right kidney and a smaller 9 mm cyst in the lower pole of the right kidney. Limited views of the pancreas are unremarkable. There is mild to moderate atheromatous calcification of the visualized arterial tree. There is no sig nificant retroperitoneal, iliac or inguinal adenopathy. The bladder wall is slightly thickened and this may be secondary to bladder outlet obstruction. The p rostate gland is enlarged. There is no significant diverticular change and there is no radiographic evidence of diverticulitis. The appendix is normal. Colonic wall thickening is no longer evident. Small bowel caliber is normal. There is no free fluid and no free air. There is mild hypertrophic spondylosis within the spine. IMPRESSION: 1. MILD HEPATOMEGALY. 2. BILATERAL EFFUSIONS, GREATER ON THE RIGHT THAN LEFT. 3. MILD BLADDER WALL THICKENING, LIKELY ON THE BASIS OF CHRONIC BLADDER OUTLET OBSTRUCTION. 4. RENAL CYSTIC DISEASE. 5. DEGENERATIVE CHANGES WITHIN THE SPINE.
[2019-04-24 09:17] LABS: Appearance,Urine Clear (Clear); Bilirubin,Urine Negative (Negative); Blood,Urine Negative (Negative); Color,Urine Yellow; Glucose,Urine (UA) Negative (Negative); Ketones,Urine Negative (Negative); Leukocyte Esterase,Urine Negative (Negative); Nitrite,Urine Negative (Negative); PH, Urine 6.5 (5.0-8.0); Protein,Urine 1+ (Negative); RBC,Urine 1 /hpf (0-5); Specific Gravity,Urine 1.034 (1.001-1.035)
[2019-04-24 10:39] VITALS: PULSE 91; RESP 16
[2019-04-24 10:41] VITALS: BP 147/100
== END 2019-04-24 10:40 | disposition home or self-care (01) ==
LOC: EC 06:56
DX: S20.212A Contusion of left front wall of thorax, initial encounter (principal); G89.29 Other chronic pain; M54.9 Dorsalgia, unspecified; I69.354 Hemiplegia and hemiparesis following cerebral infarction affecting left non-dominant side; I25.10 Atherosclerotic heart disease of native coronary artery without angina pectoris; I25.2 Old myocardial infarction; F17.200 Nicotine dependence, unspecified, uncomplicated; Z88.0 Allergy status to penicillin; Z79.02 Long term (current) use of antithrombotics/antiplatelets; Z95.5 Presence of coronary angioplasty implant and graft; W18.39XA Other fall on same level, initial encounter; Y92.009 Unspecified place in unspecified non-institutional (private) residence as the place of occurrence of the external cause
CPT/HCPCS: 36415; 93005; 80053; 82150; 83690; 85025; 85610; 85730; 81001; 71101; 74177; 99285; 96374; 96361; J2270; Q9967

== ENCOUNTER 2019-04-25 15:54 | Emergency (ER) | payer OTHER ==
[2019-04-25 16:14] VITALS: BP 131/87; PULSE 96; RESP 16; TEMP 98.1
[2019-04-25] MEDS ORDERED: ACET/COD 300 MG/30 MG STARTER PACK 6 TAB BTL PO STA (16:46)
--- NOTE | 2019-04-25 16:47 | ED ---
Recheck HPI - General Chief Complaint: Altered Mental Status Stated Complaint: syncope Time Seen by Provider: 04/25/19 16:14 Source: EMS, RN notes reviewed, old records reviewed Mode of arrival: EMS Limitations: no limitations - History of Present Illness Initial Comments: This is a 5-year-old male the ER for evaluation patient resents today for evaluation of fall EMS was called secondary to patient's reaction after his fall by his friends. Patient admits to being homeless visiting here with history of increased pain in his lower extremity secondary to peripheral neuropathy significant left leg pain. Patient states he staying at a correction while awaiting placement. Patient states during the day yesterday was ultimately ER patient has to leave the correction between the hours of 7-5 he states during those hours he is just wandered walk and after time he does give fatigued and that is lead to couple falls as of late. We'll follow is left with some rib contusions no fractures and today's fall offered him no injury. He told his friends not calling EMS they did call EMS and represented patient to the ER. Other left leg pain which is chronic he denies any complaint MD Complaint: other (Peripheral neuropathy) -: year(s) Symptoms Since Prior Visit: no new symptoms Associated Symptoms: none - Related Data Previous Rx's Medication Instructions Recorded Furosemide [Lasix] 40 mg PO BID #60 tablet 04/09/19 Atenolol [Tenormin] 100 mg PO BID #20 tab 04/17/19 Clopidogrel Bisulfate [Plavix] 75 mg PO DAILY #10 tab 04/17/19 Gabapentin 800 mg PO TID #20 tab 04/17/19 Allergies Allergy/AdvReac Type Severity Reaction Status Date / Time Penicillins Allergy Unknown Verified 04/25/19 16:09 Childhood Review of Systems ROS Statement: Those systems with pertinent positive or pertinent negative responses have been documented in the HPI. ROS Other: All systems not noted in ROS Statement are negative. Past Medical History Past Medical History: Coronary Artery Disease (CAD), Heart Failure, COPD, CVA/TIA, Diabetes Mellitus, Hyperlipidemia, Hypertension, Myocardial Infarction ([place]) Additional Past Medical History / Comment(s): Pt recently admitted to [facility] on 03/27/19 CHF. Other Hx: Ischemic cardiomyopathy with EF in September 2018 at 35%, PVCs, chronic low back pain d/t vertebral fractures years ago as well as cervical pinched nerves, DDD, IDDM type II, neuropathy bilateral hands/legs and feet, hep c, Stroke 04/17 Last Myocardial Infarction Date:: October 2018 History of Any Multi-Drug Resistant Organisms: None Reported Past Surgical History: Cholecystectomy, Heart Catheterization, Heart Catheterization With Stent Additional Past Surgical History / Comment(s): R heel I&D, colonoscopy. Past Anesthesia/Blood Transfusion Reactions: No Reported Reaction Date of Last Stent Placement:: 2011 Past Psychological History: Anxiety, Bipolar, Depression Smoking Status: Current every day smoker Past Alcohol Use History: None Reported Past Drug Use History: Heroin - Past Family History Mother Family Medical History: Cancer Father Family Medical History: Coronary Artery Disease (CAD), Diabetes Mellitus, Hypertension General Exam Limitations: no limitations General appearance: alert, in no apparent distress Head exam: Present: atraumatic, normocephalic, normal inspection Eye exam: Present: normal appearance, PERRL, EOMI. Absent: scleral icterus, conjunctival injection, periorbital swelling ENT exam: Present: normal exam, mucous membranes moist Neck exam: Present: normal inspection. Absent: tenderness, meningismus, lymphadenopathy Respiratory exam: Present: normal lung sounds bilaterally. Absent: respiratory distress, wheezes, rales, rhonchi, stridor Cardiovascular Exam: Present: regular rate, normal rhythm, normal heart sounds. Absent: systolic murmur, diastolic murmur, rubs, gallop, clicks GI/Abdominal exam: Present: soft, normal bowel sounds. Absent: distended, tenderness, guarding, rebound, rigid Extremities exam: Present: normal inspection, full ROM, normal capillary refill. Absent: tenderness, pedal edema, joint swelling, calf tenderness Back exam: Present: normal inspection Neurological exam: Present: alert, oriented X3, CN II-XII intact Psychiatric exam: Present: normal affect, normal mood Skin exam: Present: warm, dry, intact, normal color. Absent: rash Course Vital Signs 04/25/19 16:09 Temperature 98.1 F Pulse Rate 96 Respiratory 16 Rate Blood Pressure 131/87 O2 Sat by Pulse 99 Oximetry - Reevaluation(s) Reevaluation #1: Record and ER visit from yesterday are reviewed No significant findings on exam patient's able to ambulate Medical Decision Making - Medical Decision Making 59 male requesting pain meds for peripheral neuropathy. Patient can be discharged home Disposition Clinical Impression: Chronic pain, Peripheral neuropathy, Fall Disposition: HOME SELF-CARE Condition: Fair Instructions (If sedation given, give patient instructions): Fall Prevention for Older Adults (ED), Peripheral Neuropathy (ED) Is patient prescribed a controlled substance at d/c from ED?: No Referrals: [facility] [Primary Care Provider] - 1-2 days
== END 2019-04-25 17:14 | disposition home or self-care (01) ==
LOC: EC 15:54
DX: G89.29 Other chronic pain (principal); E11.42 Type 2 diabetes mellitus with diabetic polyneuropathy; I25.10 Atherosclerotic heart disease of native coronary artery without angina pectoris; I11.0 Hypertensive heart disease with heart failure; I50.9 Heart failure, unspecified; I25.2 Old myocardial infarction; F17.200 Nicotine dependence, unspecified, uncomplicated; Z88.0 Allergy status to penicillin; Z59.0 Homelessness
CPT/HCPCS: 99285

== ENCOUNTER 2019-05-13 10:33 | Inpatient (IN) | payer OTHER ==
[2019-05-13] MEDS ORDERED: MORPHINE SULFATE 4 MG/ML SYRINGE IVP STA ×2 (10:46→13:15)
--- NOTE | 2019-05-13 10:52 | ED ---
Fall HPI <Charles Sands - Last Filed: 05/13/19 13:30> - General Source: EMS Mode of arrival: EMS <Chencho Brar - Last Filed: 05/13/19 13:42> - General Chief Complaint: Fall Stated Complaint: STANLEY. Chest pain Time Seen by Provider: 05/13/19 10:37 - History of Present Illness Initial Comments: Patient is a 59-year-old male presenting to the emergency department with a chief complaint of a fall. Patient was brought to ED via ambulance. Patient reports he uses a cane to ambulate in his house. Patient reports his leg gave out, which is a common occurrence, while he was walking. Patient reports he fell on the chair make contact with the left flank region. This occurred about one hour prior to ED arrival. Patient denies any head trauma or loss of consciousness. Patient reports pain along the upper left flank region on the left side of his chest and left upper quadrant abdominal pain. Patient reports shortness of breath and pain exacerbation with left and right rotation. Patient reports the shortness of breath has been ongoing since yesterday, However it is worse right now. Patient reports the pain is 10/10 and throbbing. Patient reports the pain is exacerbated with full inspiration. Patient denies taking any medication prior to the arrival. Patient states he has prescribed blood thinners but has not taken one in over 2 months. (Chencho Brar) - Related Data Home Medications Medication Instructions Recorded Confirmed Albuterol Inhaler [Ventolin Hfa 2 puff INHALATION RT-Q6H PRN 05/13/19 05/13/19 Inhaler] Aspirin EC [Ecotrin Low Dose] 81 mg PO DAILY 05/13/19 05/13/19 INSULIN ASPART (NovoLOG) [NovoLOG See Protocol SQ AC-TID 05/13/19 05/13/19 (formulary)] Insulin Detemir (Levemir) [Levemir] 30 unit SQ HS 05/13/19 05/13/19 Previous Rx's Medication Instructions Recorded Furosemide [Lasix] 40 mg PO BID #60 tablet 04/09/19 Atenolol [Tenormin] 100 mg PO BID #20 tab 04/17/19 Clopidogrel Bisulfate [Plavix] 75 mg PO DAILY #10 tab 04/17/19 Gabapentin 800 mg PO TID #20 tab 04/17/19 Allergies Allergy/AdvReac Type Severity Reaction Status Date / Time Penicillins Allergy Unknown Verified 05/13/19 11:12 Childhood Review of Systems ROS Other: All systems not noted in ROS Statement are negative. <Charles Sands - Last Filed: 05/13/19 13:30> ROS Other: All systems not noted in ROS Statement are negative. <Chencho Brar - Last Filed: 05/13/19 13:42> ROS Statement: Those systems with pertinent positive or pertinent negative responses have been documented in the HPI. Past Medical History Past Medical History: Coronary Artery Disease (CAD), Heart Failure, COPD, CVA/TIA, Diabetes Mellitus, Hyperlipidemia, Hypertension, Myocardial Infarction (AR) Additional Past Medical History / Comment(s): Pt recently admitted to [facility] on 03/27/19 CHF. Other Hx: Ischemic cardiomyopathy with EF in September 2018 at 35%, PVCs, chronic low back pain d/t vertebral fractures years ago as well as cervical pinched nerves, DDD, IDDM type II, neuropathy bilateral hands/legs and feet, hep c, Stroke 04/17 Last Myocardial Infarction Date:: October 2018 History of Any Multi-Drug Resistant Organisms: None Reported Past Surgical History: Cholecystectomy, Heart Catheterization, Heart Catheterization With Stent Additional Past Surgical History / Comment(s): R heel I&D, colonoscopy. Past Anesthesia/Blood Transfusion Reactions: No Reported Reaction Date of Last Stent Placement:: 2011 Past Psychological History: Anxiety, Bipolar, Depression Smoking Status: Current every day smoker Past Alcohol Use History: None Reported Past Drug Use History: Heroin, Marijuana - Past Family History Mother Family Medical History: Cancer Father Family Medical History: Coronary Artery Disease (CAD), Diabetes Mellitus, Hypertension <Chencho Brar - Last Filed: 05/13/19 13:42> General Exam Limitations: no limitations General appearance: alert, in no apparent distress Head exam: Present: atraumatic, normocephalic, normal inspection Eye exam: Present: normal appearance Pupils: Present: normal accommodation ENT exam: Present: normal exam, mucous membranes moist, normal external ear exam Neck exam: Present: normal inspection, full ROM Respiratory exam: Present: normal lung sounds bilaterally, chest wall tenderness (Left side of the chest and left flank region). Absent: decreased breath sounds Cardiovascular Exam: Present: regular rate, normal rhythm, normal heart sounds GI/Abdominal exam: Present: soft, tenderness (Upper left flank region) Extremities exam: Present: normal inspection, full ROM Back exam: Present: normal inspection, full ROM, tenderness (Pain along the anterior deltoid.) Neurological exam: Present: alert, oriented X3 Psychiatric exam: Present: normal affect, normal mood Skin exam: Present: warm, dry, intact, normal color, rash (Multiple lesions spread throughout the body.) <Chencho Brar - Last Filed: 05/13/19 13:42> Course <Charles Sands - Last Filed: 05/13/19 13:30> Vital Signs 05/13/19 05/13/19 05/13/19 10:36 11:06 12:42 Pulse Rate 96 99 100 Respiratory 16 16 20 Rate Blood Pressure 176/121 164/112 158/105 O2 Sat by Pulse 97 99 96 Oximetry - Reevaluation(s) Reevaluation #1: 05/13/19 13:25 PA supervision: I pursued a [id number] evaluation the patient did present with complaints of shortness of breath or past 2 days exertional dyspnea some reproducible chest pain. The workup is consistent with CHF and COPD exacerbation. Case is discussed with Dr. Panda. (Charles Sands) Reevaluation #2: 05/13/19 13:30 Patient's case was initially discussed with Dr. Payne. (Charles Sands) Medical Decision Making - Lab Data Result diagrams: 05/13/19 10:40 05/13/19 10:40 <Charles Sands - Last Filed: 05/13/19 13:30> - Lab Data Result diagrams: 05/13/19 10:40 05/13/19 10:40 <Chencho Brar - Last Filed: 05/13/19 13:42> - Medical Decision Making Patient is 59-year-old male presenting to emergency Department with a chief complaint of a fall. Imaging is negative for acute fractures or dislocations. However, did show some pulmonary edema with pleural effusion. Patient is a BMP of over 9000. Troponin and d-dimer pending. Patient will be admitted for COPD exacerbation and CHF. Patient given Lasix. Updrafts scheduled as well. Case discussed with Dr. Sands who also examined the patient and is in agreement with the treatment plan. Admitting physician is . Cardiology consulted. (Chencho Brar) - Lab Data Lab Results 05/13/19 05/13/19 05/13/19 Range/Units 10:40 10:40 10:40 WBC 8.4 (3.8-10.6) k/uL RBC 4.10 L (4.30-5.90) m/uL Hgb 12.5 L (13.0-17.5) gm/dL Hct 39.1 (39.0-53.0) % MCV 95.4 (80.0-100.0) fL MCH 30.5 (25.0-35.0) pg MCHC 32.0 (31.0-37.0) g/dL RDW 13.4 (11.5-15.5) % Plt Count 181 (150-450) k/uL Sodium 136 L (137-145) mmol/L Potassium 4.8 (3.5-5.1) mmol/L Chloride 103 (98-107) mmol/L Carbon Dioxide 24 (22-30) mmol/L Anion Gap 9 mmol/L BUN 16 (9-20) mg/dL Creatinine 0.91 (0.66-1.25) mg/dL Est GFR (CKD-EPI)AfAm >90 (>60 ml/min/1.73 sqM) Est GFR (CKD-EPI)NonAf >90 (>60 ml/min/1.73 sqM) Glucose 216 H (74-99) mg/dL Calcium 8.8 (8.4-10.2) mg/dL Total Bilirubin 1.6 H (0.2-1.3) mg/dL AST 28 (17-59) U/L ALT 17 L (21-72) U/L Alkaline Phosphatase 92 (38-126) U/L NT-Pro-B Natriuret Pep 9550 pg/mL Total Protein 6.9 (6.3-8.2) g/dL Albumin 3.8 (3.5-5.0) g/dL Disposition <Charles Sands - Last Filed: 05/13/19 13:30> Is patient prescribed a controlled substance at d/c from ED?: No Time of Disposition: 13:42 <Chencho Brar - Last Filed: 05/13/19 13:42> Clinical Impression: COPD exacerbation, CHF (congestive heart failure) Disposition: ADMITTED IP TO THIS HOSP Condition: Stable Instructions (If sedation given, give patient instructions): Fall Prevention (ED) Additional Instructions: Patient will be admitted Referrals: None,Stated [Primary Care Provider] - 1-2 days
[2019-05-13 10:58] LABS: HCT 39.1 % (39.0-53.0); HGB 12.5 gm/dL (13.0-17.5); MCH 30.5 pg (25.0-35.0); MCV 95.4 fL (80.0-100.0); Platelet Count 181 k/uL (150-450); RDW 13.4 % (11.5-15.5); WBC 8.4 k/uL (3.8-10.6)
[2019-05-13 11:11] LABS: ALT 17 U/L (21-72); AST 28 U/L (17-59); African American GFR (CKD) >90 (>60 ml/min/1.73 sqM); Albumin 3.8 g/dL (3.5-5.0); Alkaline Phosphatase 92 U/L (38-126); Anion Gap 9 mmol/L; Blood Urea Nitrogen 16 mg/dL (9-20); Calcium 8.8 mg/dL (8.4-10.2); Carbon Dioxide 24 mmol/L (22-30); Chloride 103 mmol/L (98-107); Glucose 216 mg/dL (74-99); Non-African American GFR(CKD) >90 (>60 ml/min/1.73 sqM); Potassium 4.8 mmol/L (3.5-5.1); Sodium 136 mmol/L (137-145); Total Bilirubin 1.6 mg/dL (0.2-1.3); Total Protein 6.9 g/dL (6.3-8.2)
--- NOTE | 2019-05-13 11:42 | XR ---
EXAMINATION TYPE: XR chest 2V DATE OF EXAM: 05/13/2019 COMPARISON: 04/24/2019 HISTORY: 59-year-old male with pain and shortness of breath TECHNIQUE: AP and lateral views FINDINGS: Heart is enlarged. Aorta within normal limits. Diffuse interstitial densities increased from prior. N o vidal consolidation or pleural effusion. IMPRESSION: 1. Cardiomegaly. 2. Increased diffuse interstitial opacities. Correlate for atypical pneumonias, interstitial pneumoni tis, or pulmonary vascular congestion.
--- NOTE | 2019-05-13 12:43 | CT ---
EXAMINATION TYPE: CT chest abdomen w con DATE OF EXAM: 05/13/2019 COMPARISON: 04/24/2019 HISTORY: 59-year-old male Trauma, fall, Lt sided chest pain, SOB TECHNIQUE: Contiguous axial scanning of the chest and abdomen following administration of 100 ml Isov ue 300 IV contrast. Delayed images through the kidneys and coronal/sagittal reconstructions performe d. CT DLP: 407.9 mGycm Automated exposure control for dose reduction was used. FINDINGS: Heart normal size without pericardial effusion. Extensive coronary vessel calcifications are present. Aorta normal caliber with mild atherosclerotic arch calcifications and bowing configuration to the ao rtic arch. Generalized anasarca change with small to moderate right greater than left effusions. A few areas of patchy groundglass the right lung. Septal lines greatest in the upper and lower lungs. No vidal conso lidation. ABDOMEN: Early arterial phase imaging of the liver shows no definite focal lesion. Cholecystectomy clips. Adrenal glands and atrophic pancreas show no gross abnormality. A few small cortical cysts in the kidneys are present on 04/24/2019. Some mild edema posterior left p ararenal space was present on 04/24/2019. Arterial phase slight mottled enhancement of the spleen. No upper abdominal ascites or free air. Mildly dilated left upper quadrant small bowel loop measures up to 3.5 cm. No abnormal small bowel wa ll thickening is seen. Bones: No displaced left rib fracture. Vertebral body heights are preserved. IMPRESSION: 1. NO LEFT RIB FRACTURE IDENTIFIED. 2. MILD ANASARCA CHANGE WITH SMALL TO MODERATE PLEURAL EFFUSIONS, SCATTERED PATCHY GROUNDGLASS ON THE RIGHT, AND BILATERAL SEPTAL LINES. FINDINGS SUGGEST EARLY INTERSTITIAL PULMONARY EDEMA WITH FLUID OV ERLOAD. 3. MILDLY DILATED LEFT UPPER QUADRANT SMALL BOWEL LOOP MEASURING 3.5 CM. FINDINGS MAY REFLECT REGIONA L ILEUS. NO ABNORMAL BOWEL WALL THICKENING SEEN. IF CONCERN FOR BOWEL INJURY, SHORT INTERVAL FOLLOW-U P CAN BE PERFORMED.
[2019-05-13] MEDS ORDERED: NALOXONE 0.4 MG/ML 1 ML VIAL IV PRN (13:24)
[2019-05-13] MEDS ORDERED: FUROSEMIDE 10 MG/ML 10 ML VIAL IV STA (13:28)
[2019-05-13] MEDS ORDERED: ALBUTEROL NEBULIZED 1.25 MG/3 ML INHALATION SCH (16:00)
[2019-05-13] MEDS: FUROSEMIDE 10 MG/ML 4 ML VIAL IV SCH ×2 (16:17→21:36)
[2019-05-13] MEDS: ACETAMINOPHEN TAB 325 MG TAB PO PRN (16:17)
[2019-05-13] MEDS: GABAPENTIN 400 MG CAP PO SCH ×2 (16:17→21:36)
[2019-05-13 17:22] LABS: Glucose,Whole Blood 357 mg/dL (75-99)
[2019-05-13] MEDS: INSULIN ASPART (NovoLOG) 100 UNIT/ML VIAL SQ SCH ×2 (18:00→21:45)
[2019-05-13 19:57] LABS: Glucose,Whole Blood 171 mg/dL (75-99)
[2019-05-13] MEDS ORDERED: INSULIN DETEMIR (LEVEMIR) 100 UNIT/ML SYR SQ SCH (21:00)
[2019-05-13] MEDS: IPRATROPIUM-ALBUTEROL 3 ML NEB INHALATION SCH (21:07)
[2019-05-13] MEDS: ATENOLOL 50 MG TAB PO SCH (21:36)
[2019-05-13] MEDS ORDERED: SENNOSIDES 8.6 MG TAB PO PRN (22:59)
--- NOTE | 2019-05-13 23:14 | P.HPIM ---
History of Present Illness H&P Date: 05/13/19 Chief Complaint: Shortness of breath Patient is a 59-year-old male with a known history of coronary artery disease with stent placement, chronic CHF EF 35%, history of CVA/TIA, diabetes type 2 insulin-dependent, hypertension, hyperlipidemia and history of NM and other multiple medical problems came to ER with complaints of fall. Patient was brought to the hospital by amylase. Patient says that his legs gave out while he was walking. Denied any head trauma or loss of consciousness. No history of seizures. No bowel or bladder incontinence. Patient also has been having chest pain and left upper quadrant pain. Patient is requesting IV pain medications. Patient has been having shortness of breath recently bypassed to 3 days. Patient is also having left lower chest pain and left upper quadrant pain which gets worse with movement. 10 x 10 on admission. Patient also complaining of catching of breath with it inspiration. No fever no chills. No cough or sputum production. Patient denied any fever or chills at home. Patient does have increased leg swelling. Patient has not followed with lesion recently. Chest x-ray showed cardiomegaly. Increased interstitial opacities correlate for atypical pneumonia interstitial pneumonitis or pulmonary vascular congestion. CT chest abdomen pelvis showed no left hip fracture noted. Mild anasarca small to moderate pleural effusions. Findings suggestive of pulmonary edema with fluid overload. Mildly dilated left upper quadrant small bowel loops measuring 3.5 cm. Possible ileus. D-dimer not elevated BNP 9550 Troponin 1 negative. no leukocytosis. Review of Systems Constitutional: Patient denies any fever or chills . No generalized weakness or weight loss. Abdomen: Patient denied nausea vomiting and diarrhea and abdominal pain. Cardiovascular: Patient does have left-sided chest pain and short of breath no palpitations. Respiratory: patient denied any cough is from production. No shortness of breath Neurologic: Patient denied any numbness or tingling headache. Musculoskeletal: Patient denies any complaints of joint swelling or deformity. Left side chest pain. Skin: Negative Psychiatric: Negative Endocrine: No heat or cold intolerance. No recent weight gain. Genitourinary: No dysuria or hematuria. All other 14 point ROS negative except the above Past Medical History Past Medical History: Coronary Artery Disease (CAD), Heart Failure, COPD, CVA/TIA, Diabetes Mellitus, Hyperlipidemia, Hypertension, Myocardial Infarction (NM) Additional Past Medical History / Comment(s): Pt recently admitted to [facility] on 03/27/19 CHF. Other Hx: Ischemic cardiomyopathy with EF in September 2018 at 35%, PVCs, chronic low back pain d/t vertebral fractures years ago as well as cervi nargis pinched nerves, DDD, IDDM type II, neuropathy bilateral hands/legs and feet, hep c, Stroke 04/17 Last Myocardial Infarction Date:: October 2018 History of Any Multi-Drug Resistant Organisms: None Reported Past Surgical History: Cholecystectomy, Heart Catheterization, Heart Catheterization With Stent Additional Past Surgical History / Comment(s): R heel I&D, colonoscopy. Past Anesthesia/Blood Transfusion Reactions: No Reported Reaction Date of Last Stent Placement:: 2011 Past Psychological History: Anxiety, Bipolar, Depression Additional Psychological History / Comment(s): Pt states he is currently homeless. He ambulates with a cane. He does not drive. He states he no longer has any of his medications or diabetic supplies. Smoking Status: Former smoker Past Alcohol Use History: None Reported Additional Past Alcohol Use History / Comment(s): Pt started smoking in 1976. Past Drug Use History: Heroin, Marijuana Additional Drug Use History / Comment(s): Pt states he has not used any drugs lately. - Past Family History Mother Family Medical History: Cancer Father Family Medical History: Coronary Artery Disease (CAD), Diabetes Mellitus, Hypertension Medications and Allergies Home Medications Medication Instructions Recorded Confirmed Type Furosemide [Lasix] 40 mg PO BID #60 tablet 04/09/19 05/13/19 Rx Atenolol [Tenormin] 100 mg PO BID #20 tab 04/17/19 05/13/19 Rx Clopidogrel Bisulfate [Plavix] 75 mg PO DAILY #10 tab 04/17/19 05/13/19 Rx Gabapentin 800 mg PO TID #20 tab 04/17/19 05/13/19 Rx Albuterol Inhaler [Ventolin Hfa 2 puff INHALATION RT-Q6H PRN 05/13/19 05/13/19 History Inhaler] Aspirin EC [Ecotrin Low Dose] 81 mg PO DAILY 05/13/19 05/13/19 History INSULIN ASPART (NovoLOG) [NovoLOG See Protocol SQ AC-TID 05/13/19 05/13/19 History (formulary)] Insulin Detemir (Levemir) [Levemir] 30 unit SQ HS 05/13/19 05/13/19 History Allergies Allergy/AdvReac Type Severity Reaction Status Date / Time Penicillins Allergy Unknown Verified 05/13/19 11:12 Childhood Physical Exam Vitals: Vital Signs Temp Pulse Pulse Resp BP BP BP 05/13/19 21:18 102 H 05/13/19 21:07 106 H 18 05/13/19 21:00 98.4 F 99 16 131/88 05/13/19 15:08 98.5 F 99 22 155/103 158/95 05/13/19 14:15 105 H 16 114/74 05/13/19 14:03 105 H 16 114/74 05/13/19 12:42 100 20 158/105 05/13/19 11:06 99 16 164/112 05/13/19 10:36 96 16 176/121 Pulse Ox 05/13/19 21:18 05/13/19 21:07 05/13/19 21:00 100 05/13/19 15:08 99 05/13/19 14:15 98 05/13/19 14:03 98 05/13/19 12:42 96 05/13/19 11:06 99 05/13/19 10:36 97 Intake and Output 05/13/19 05/13/19 05/13/19 06:59 14:59 22:59 Intake Total 590 Balance 590 Intake: Oral 590 Other: Voiding Method Toilet # Voids 2 Weight 72.575 kg PHYSICAL EXAMINATION: Patient is lying in the bed comfortably, mild distress due to pain, awake alert and oriented.. HEENT: Normocephalic. Neck is supple. Pupils reactive. Nostrils clear. Oral cavity is moist. Ears reveal no drainage. Neck reveals no JVD, carotid bruits, or thyromegaly. CHEST EXAMINATION: Trachea is central. Symmetrical expansion. Bibasilar diminished air entry and crackles positive. Scattered rhonchi.. Left lower rib cage tenderness to palpation CARDIAC: Normal S1, S2 with no gallops. No murmurs ABDOMEN: Soft. Bowel sounds normal. No organomegaly. No abdominal bruits. Extremities: 2+ pitting edema. No clubbing or cyanosis Neurologically awake, alert, oriented x3 with well-coordinated movements. No focal deficits noted Skin: No rash or skin lesions. Patient does have scratch cleary on the upper extremity bilaterally and on the chest. Psychiatric: Coperative. Nonsuicidal Musculoskeletal: No joint swelling or deformity. Normal range of motion. Results CBC & Chem 7: 05/13/19 10:40 05/13/19 10:40 Labs: Abnormal Lab Results - Last 24 Hours (Table) 05/13/19 05/13/19 05/13/19 Range/Units 10:40 10:40 17:20 RBC 4.10 L (4.30-5.90) m/uL Hgb 12.5 L (13.0-17.5) gm/dL Sodium 136 L (137-145) mmol/L Glucose 216 H (74-99) mg/dL POC Glucose (mg/dL) 357 H (75-99) mg/dL Total Bilirubin 1.6 H (0.2-1.3) mg/dL ALT 17 L (21-72) U/L 05/13/19 Range/Units 19:56 RBC (4.30-5.90) m/uL Hgb (13.0-17.5) gm/dL Sodium (137-145) mmol/L Glucose (74-99) mg/dL POC Glucose (mg/dL) 171 H (75-99) mg/dL Total Bilirubin (0.2-1.3) mg/dL ALT (21-72) U/L Thrombosis Risk Factor Assmnt - DVT/VTE Prophylaxis DVT/VTE Prophylaxis: Pharmacologic Prophylaxis ordered - Choose All That Apply Each Factor Represents 1 point: Abnormal pulmonary function (COPD), Age 41-60 years, Heart failure (<1month) Other Risk Factors: No Other congenital or acquired thrombophilia - If yes, enter type in comment: No Thrombosis Risk Factor Assessment Total Risk Factor Score: 3 Thrombosis Risk Factor Assessment Level: Moderate Risk Assessment and Plan Assessment: Acute on chronic CHF with systolic dysfunction. Ejection fraction 35% Mild anasarca Ileus Ischemic cardiomyopathy Left-sided chest pain likely due to musculoskeletal status post fall. Reproducible. History of CVA/TIA. Walks with walker Hyperglycemia with uncontrolled diabetes type 2 insulin-dependent Hypertension History of NM Hyperlipidemia Coronary heart disease with history of stent placement Chronic low back pain due to vertebral fractures Diabetic peripheral neuropathy History of hepatitis C Anxiety/depression/bipolar disorder History of benign and marijuana use DVT prophylaxis with heparin subcu Plan: Patient will be continued on telemetry monitoring. Continue with IV Lasix 40 mg every 8 hourly. Continue with aspirin, Plavix and metoprolol. Monitor renal function. Continue with the home insulin dose and sliding scale and titrate dose accordingly. Continue with stool softeners and bowel regimen. Pain management with Tylenol and was given IV morphine 1. Encourage incentive spirometry. Cardiology was consulted and further recommendations based on the clinical course. Time with Patient: Greater than 30
[2019-05-14] MEDS: DOCUSATE 100 MG CAP PO SCH ×4 (00:14→20:26)
[2019-05-14] MEDS: HEPARIN SODIUM,PORCINE 5,000 UNIT/ML 1 ML VIAL SQ SCH ×4 (00:15→23:55)
[2019-05-14] MEDS: IPRATROPIUM-ALBUTEROL 3 ML NEB INHALATION SCH ×4 (03:14→19:49)
[2019-05-14 07:00] LABS: Glucose,Whole Blood 53 mg/dL (75-99)
[2019-05-14 07:29] LABS: Glucose,Whole Blood 54 mg/dL (75-99)
[2019-05-14 07:50] LABS: Glucose,Whole Blood 132 mg/dL (75-99)
[2019-05-14 08:10] LABS: Basophils # (A) 0.1 k/uL (0-0.2); Basophils % (A) 1 %; Eosinophils # (A) 0.1 k/uL (0-0.7); Eosinophils % (A) 1 %; HCT 44.4 % (39.0-53.0); HGB 14.6 gm/dL (13.0-17.5); Lymphocytes # (A) 1.7 k/uL (1.0-4.8); Lymphocytes % (A) 23 %; MCH 31.2 pg (25.0-35.0); MCHC 32.9 g/dL (31.0-37.0); MCV 94.7 fL (80.0-100.0); Mean Platelet Volume 6.9; Monocytes # (A) 0.6 k/uL (0-1.0); Monocytes % (A) 7 %; Neutrophils % (A) 66 %; Platelet Count 215 k/uL (150-450); RBC 4.69 m/uL (4.30-5.90); RDW 13.2 % (11.5-15.5); WBC 7.6 k/uL (3.8-10.6)
[2019-05-14] MEDS: INSULIN ASPART (NovoLOG) 100 UNIT/ML VIAL SQ SCH ×4 (08:19→20:24)
[2019-05-14] MEDS: ASPIRIN 81 MG PO SCH (08:24)
[2019-05-14] MEDS: CLOPIDOGREL 75 MG TAB PO SCH (08:24)
[2019-05-14] MEDS: ATENOLOL 50 MG TAB PO SCH ×2 (08:24→20:24)
[2019-05-14] MEDS: GABAPENTIN 400 MG CAP PO SCH ×3 (08:24→22:04)
[2019-05-14] MEDS: FUROSEMIDE 10 MG/ML 4 ML VIAL IV SCH ×3 (08:24→23:56)
[2019-05-14] MEDS: ACETAMINOPHEN TAB 325 MG TAB PO PRN (08:32)
[2019-05-14 09:59] LABS: African American GFR (CKD) >90 (>60 ml/min/1.73 sqM); Anion Gap 10 mmol/L; Blood Urea Nitrogen 27 mg/dL (9-20); Calcium 9.3 mg/dL (8.4-10.2); Carbon Dioxide 31 mmol/L (22-30); Chloride 100 mmol/L (98-107); Cholesterol 161 mg/dL (<200); HDL Cholesterol 50 mg/dL (40-60); LDL Cholesterol,Calculated 99 mg/dL (0-99); Non-African American GFR(CKD) 82 (>60 ml/min/1.73 sqM); Potassium 3.3 mmol/L (3.5-5.1); Sodium 141 mmol/L (137-145); Triglycerides 58 mg/dL (<150)
[2019-05-14 10:07] LABS: Glucose 45 mg/dL (74-99)
[2019-05-14 11:29] LABS: Glucose,Whole Blood 234 mg/dL (75-99)
[2019-05-14 11:59] VITALS: BMI 22.9
[2019-05-14] MEDS: LOSARTAN 25 MG TAB PO SCH (12:32)
--- NOTE | 2019-05-14 13:11 | P.CRDCN ---
History of Present Illness History of present illness: HISTORY OF PRESENTING ILLNESS This is a pleasant 59-year-old male past medical history significant for cardiomyopathy hypertension, dyslipidemia, diabetes mellitus, chronic nicotine dependence, substance abuse with marijuana and heroin and coronary artery disease status post PCI. He presented with fall. He does not follow in the office with a school psychologist. We have been asked to see him in consultation for CHF. He is seen and examined laying flat in bed in no acute distress. He is clutching his chest and groaning in pain. He states his legs got weak and he fell yesterday landing on the torso on the left side. Since that time he is insisting he broke his ribs and requesting pain medication. He denies worsening shortness of breath, no palpitations, dizziness, nausea, vomiting or diaphoresis. DIAGNOSTICS No EKG obtained on admission. Chest xray greased diffuse interstitial opacities. CT chest and abdomen reveals mild anasarca changes small to moderate pleural effusions, skin tattered patchy groundglass opacities on the right and bilateral septal lines findings suggest early interstitial phase pulmonary edema with fluid overload, mildly dilated left upper quadrant small bowel loop in no fractures noted. Laboratory reviewed, WBC 7.6, hemoglobin 14.6, platelets 215, d-dimer 0.53, sodium 141, potassium 3.3, creatinine 1.0, cardiac enzymes negative 1, proBNP 9550, LDL 99 and TSH 1.09. Current cardiac medications include atenolol 100 mg twice a day, Plavix 75 mg daily, aspirin 81 mg daily and Lasix 40 mg twice a day. Most recent echocardiogram obtained October 2018 revealed severely impaired LV systolic function with ejection fraction 25-30%. Most recent heart catheterization performed January 2016 revealed mild in-stent restenosis involving the RCA, mild to moderate nonobstructive disease involving the left coronary system, 30% ostial circumflex, 30% proximal circumflex and angiographically normal LAD with normal LV systolic function with ejection fraction 50% with basal inferior hypokinesia. REVIEW OF SYSTEMS At the time of my exam: CONSTITUTIONAL: Denies fever or chills. CARDIOVASCULAR: Complains of pleuritic chest pain. Denies shortness of breath, orthopnea, PND or palpitations. RESPIRATORY: Denies cough. GASTROINTESTINAL: Denies abdominal pain, diarrhea, constipation, nausea or vomiting. MUSCULOSKELETAL: Denies myalgias. NEUROLOGIC: Denies numbness, tingling or weakness. ENDOCRINE: Denies fatigue, weight change, polydipsia or polyurina. GENITOURINARY: Denies burning, hematuria or urgency with micturation. HEMATOLOGIC: Denies history of anemia or bleeding. PHYSICAL EXAMINATION Blood pressure 128/77 heart rate 65 afebrile and maintaining oxygen saturaiton on room air. CONSTITUTIONAL: No apparent distress. Laying flat in bed. HEENT: Head is normocephalic. Pupils are equal, round. Sclerae anicteric. Mucous membranes of the mouth are moist. No JVD. No carotid bruit. CHEST EXAMINATION: Lungs are clear to auscultation. No chest wall tenderness is noted on palpation or with deep breathing. Diminished bilaterally. HEART EXAMINATION: Regular rate and rhythm. S1, S2 heard. No murmurs, gallops or rub. ABDOMEN: Soft, nontender. Positive bowel sounds. EXTREMITIES: 2+ peripheral pulses, no lower extremity edema and no calf tenderness. NEUROLOGIC EXAMINATION: Patient is awake, alert and oriented x3. ASSESSMENT Chest pain, pleuritic and reproducible on palpitation or with deep inspiration. Chronic systolic heart failure Ischemic cardiomyopathy, EF 35% Hypertension Coronary artery disease s/p PCI Dyslipidemia Chronic nicotine and illicit substance use Non-compliance PLAN Resume atenolol as previously ordered. Initiate on losartan and aldactone. Request social work evaluation for assistance with medications. Continue to diurese although he is more of a chronic systolic heart failure. Thank you kindly for this consultation. Nurse Practitioner note has been reviewed, I agree with a documented findings and plan of care. Patient was seen and examined. Past Medical History Past Medical History: Coronary Artery Disease (CAD), Heart Failure, COPD, CVA/TIA, Diabetes Mellitus, Hyperlipidemia, Hypertension, Myocardial Infarction ([place]) Additional Past Medical History / Comment(s): Pt recently admitted to [facility] on 03/27/19 CHF. Other Hx: Ischemic cardiomyopathy with EF in September 2018 at 35%, PVCs, chronic low back pain d/t vertebral fractures years ago as well as cervical pinched nerves, DDD, IDDM type II, neuropathy bilateral hands/legs and feet, hep c, Stroke 04/17 Last Myocardial Infarction Date:: October 2018 History of Any Multi-Drug Resistant Organisms: None Reported Past Surgical History: Cholecystectomy, Heart Catheterization, Heart Catheterization With Stent Additional Past Surgical History / Comment(s): R heel I&D, colonoscopy. Past Anesthesia/Blood Transfusion Reactions: No Reported Reaction Date of Last Stent Placement:: 2011 Past Psychological History: Anxiety, Bipolar, Depression Additional Psychological History / Comment(s): Pt states he is currently homeless. He ambulates with a cane. He does not drive. He states he no longer has any of his medications or diabetic supplies. Smoking Status: Former smoker Past Alcohol Use History: None Reported Additional Past Alcohol Use History / Comment(s): Pt started smoking in 1976. Past Drug Use History: Heroin, Marijuana Additional Drug Use History / Comment(s): Pt states he has not used any drugs lately. - Past Family History Mother Family Medical History: Cancer Father Family Medical History: Coronary Artery Disease (CAD), Diabetes Mellitus, Hypertension Medications and Allergies Home Medications Medication Instructions Recorded Confirmed Type Furosemide [Lasix] 40 mg PO BID #60 tablet 04/09/19 05/13/19 Rx Atenolol [Tenormin] 100 mg PO BID #20 tab 04/17/19 05/13/19 Rx Clopidogrel Bisulfate [Plavix] 75 mg PO DAILY #10 tab 04/17/19 05/13/19 Rx Gabapentin 800 mg PO TID #20 tab 04/17/19 05/13/19 Rx Albuterol Inhaler [Ventolin Hfa 2 puff INHALATION RT-Q6H PRN 05/13/19 05/13/19 History Inhaler] Aspirin EC [Ecotrin Low Dose] 81 mg PO DAILY 05/13/19 05/13/19 History INSULIN ASPART (NovoLOG) [NovoLOG See Protocol SQ AC-TID 05/13/19 05/13/19 History (formulary)] Insulin Detemir (Levemir) [Levemir] 30 unit SQ HS 05/13/19 05/13/19 History Allergies Allergy/AdvReac Type Severity Reaction Status Date / Time Penicillins Allergy Unknown Verified 05/13/19 11:12 Childhood Physical Exam Vitals: Vital Signs Temp Pulse Pulse Resp BP BP BP 05/14/19 09:04 104 H 05/14/19 08:54 98 05/14/19 07:30 98.1 F 65 17 128/77 05/14/19 05:00 97.4 F L 81 16 136/89 05/14/19 00:00 99 18 05/13/19 21:18 102 H 05/13/19 21:07 106 H 18 05/13/19 21:00 98.4 F 99 16 131/88 05/13/19 15:08 98.5 F 99 22 155/103 158/95 05/13/19 14:15 105 H 16 114/74 05/13/19 14:03 105 H 16 114/74 Pulse Ox 05/14/19 09:04 05/14/19 08:54 05/14/19 07:30 91 L 05/14/19 05:00 94 L 05/14/19 00:00 05/13/19 21:18 05/13/19 21:07 05/13/19 21:00 100 05/13/19 15:08 99 05/13/19 14:15 98 05/13/19 14:03 98 Intake and Output 05/13/19 05/14/19 05/14/19 22:59 06:59 14:59 Intake Total 1770 420 Balance 1770 420 Intake: Oral 1770 420 Other: Voiding Method Toilet Toilet Toilet # Voids 2 2 Weight 72.575 kg Results 05/14/19 07:04 05/14/19 07:04 Cardiac Enzymes 05/13/19 Range/Units 10:40 Troponin I 0.016 (0.000-0.034) ng/mL Lipids 05/14/19 Range/Units 07:04 Triglycerides 58 (<150) mg/dL Cholesterol 161 (<200) mg/dL HDL Cholesterol 50 (40-60) mg/dL CBC 05/14/19 Range/Units 07:04 WBC 7.6 (3.8-10.6) k/uL RBC 4.69 (4.30-5.90) m/uL Hgb 14.6 (13.0-17.5) gm/dL Hct 44.4 (39.0-53.0) % Plt Count 215 (150-450) k/uL Comprehensive Metabolic Panel 05/14/19 Range/Units 07:04 Sodium 141 (137-145) mmol/L Potassium 3.3 L (3.5-5.1) mmol/L Chloride 100 (98-107) mmol/L Carbon Dioxide 31 H (22-30) mmol/L BUN 27 H (9-20) mg/dL Creatinine 1.00 (0.66-1.25) mg/dL Glucose 45 L* (74-99) mg/dL Calcium 9.3 (8.4-10.2) mg/dL Current Medications Generic Name Dose Route Start Last Admin Trade Name Freq PRN Reason Stop Dose Admin Acetaminophen 650 mg 05/13/19 15:35 05/14/19 08:32 Tylenol Tab PO 650 mg Q6HR PRN Administration Fever and/ or Pain Albuterol/Ipratropium 3 ml 05/13/19 20:00 05/14/19 08:54 Duoneb 0.5 Mg-3 Mg/3 Ml Soln INHALATION 3 ml RT-Q6H MIRLANDE Administration Aspirin 81 mg 05/14/19 09:00 05/14/19 08:24 Aspirin PO 81 mg DAILY MIRLANDE Administration Atenolol 100 mg 05/13/19 21:00 05/14/19 08:24 Tenormin PO 100 mg BID MIRLANDE Administration Clopidogrel Bisulfate 75 mg 05/14/19 09:00 05/14/19 08:24 Plavix PO 75 mg DAILY MIRLANDE Administration Docusate Sodium 100 mg 05/13/19 23:00 05/14/19 08:24 Colace PO Not Given BID MIRLANDE Furosemide 40 mg 05/13/19 16:00 05/14/19 08:24 Lasix IV 40 mg Q8HR MIRLANDE Administration Gabapentin 800 mg 05/13/19 16:00 05/14/19 08:24 Neurontin PO 800 mg TID MIRLANDE Administration Heparin Sodium (Porcine) 5,000 unit 05/14/19 00:00 05/14/19 08:24 Heparin SQ 5,000 unit Q8HR MIRLANDE Administration Insulin Aspart 0 unit 05/13/19 21:00 05/14/19 12:31 Novolog SQ 3 unit ACHS MIRLANDE Administration Protocol Insulin Detemir 30 unit 05/13/19 21:00 05/13/19 21:45 Levemir SQ 30 unit HS MIRLANDE Administration Losartan Potassium 25 mg 05/14/19 11:30 05/14/19 12:32 Cozaar PO 25 mg DAILY MIRLANDE Administration Naloxone HCl 0.2 mg 05/13/19 13:24 Narcan IV Q2M PRN Opioid Reversal Senna 8.6 mg 05/13/19 22:59 Senokot PO DAILY PRN Constipation Intake and Output 05/13/19 05/14/19 05/14/19 22:59 06:59 14:59 Intake Total 1770 420 Balance 1770 420 Intake: Oral 1770 420 Other: Voiding Method Toilet Toilet Toilet # Voids 2 2 Weight 72.575 kg Patient Weight 05/15/19 06:59 Weight 72.575 kg 05/14/19 07:04 05/14/19 07:04
[2019-05-14] MEDS: SPIRONOLACTONE 25 MG TAB PO SCH (14:25)
[2019-05-14] MEDS: HYDROcodone/APAP 5-325MG 1 EACH TAB PO PRN ×2 (16:32→22:05)
[2019-05-14 17:01] LABS: Glucose,Whole Blood 115 mg/dL (75-99)
[2019-05-14] MEDS ORDERED: Potassium Replacement Protocol 1 EACH MISC MISCELLANE PRN (18:37)
[2019-05-14 18:45] LABS: Hemoglobin A1C 7.8 % (4.0-6.0)
[2019-05-14 19:54] LABS: Glucose,Whole Blood 292 mg/dL (75-99)
[2019-05-14] MEDS: INSULIN DETEMIR (LEVEMIR) 100 UNIT/ML SYR SQ SCH (20:24)
[2019-05-14] MEDS: POTASSIUM CHLORIDE ER 20 MEQ TAB.ER PO SCH ×2 (20:24→22:04)
[2019-05-14 22:10] LABS: Glucose,Whole Blood 137 mg/dL (75-99)
[2019-05-15] MEDS: IPRATROPIUM-ALBUTEROL 3 ML NEB INHALATION SCH ×4 (04:00→20:40)
[2019-05-15 04:54] LABS: Glucose,Whole Blood 67 mg/dL (75-99)
[2019-05-15 05:29] LABS: Glucose,Whole Blood 112 mg/dL (75-99)
[2019-05-15] MEDS: HYDROcodone/APAP 5-325MG 1 EACH TAB PO PRN ×3 (05:30→17:44)
[2019-05-15 07:09] LABS: Glucose,Whole Blood 154 mg/dL (75-99)
[2019-05-15 07:25] LABS: Basophils # (A) 0.1 k/uL (0-0.2); Basophils % (A) 2 %; Eosinophils # (A) 0.2 k/uL (0-0.7); Eosinophils % (A) 4 %; HCT 43.5 % (39.0-53.0); HGB 13.7 gm/dL (13.0-17.5); Lymphocytes # (A) 1.9 k/uL (1.0-4.8); Lymphocytes % (A) 31 %; MCH 30.1 pg (25.0-35.0); MCHC 31.5 g/dL (31.0-37.0); MCV 95.7 fL (80.0-100.0); Mean Platelet Volume 7.5; Monocytes # (A) 0.4 k/uL (0-1.0); Monocytes % (A) 7 %; Neutrophils # (A) 3.4 k/uL (1.3-7.7); Neutrophils % (A) 55 %; Platelet Count 198 k/uL (150-450); RBC 4.55 m/uL (4.30-5.90); RDW 13.4 % (11.5-15.5); WBC 6.1 k/uL (3.8-10.6)
[2019-05-15 07:56] LABS: Albumin 3.5 g/dL (3.5-5.0); Potassium 4.4 mmol/L (3.5-5.1); Total Bilirubin 0.7 mg/dL (0.2-1.3); Total Protein 6.6 g/dL (6.3-8.2)
[2019-05-15] MEDS: DOCUSATE 100 MG CAP PO SCH ×2 (08:13→21:27)
[2019-05-15] MEDS: FUROSEMIDE 10 MG/ML 4 ML VIAL IV SCH ×2 (08:13→17:09)
[2019-05-15] MEDS: SPIRONOLACTONE 25 MG TAB PO SCH (08:13)
[2019-05-15] MEDS: ASPIRIN 81 MG PO SCH (08:16)
[2019-05-15] MEDS: HEPARIN SODIUM,PORCINE 5,000 UNIT/ML 1 ML VIAL SQ SCH ×2 (08:16→17:12)
[2019-05-15] MEDS: GABAPENTIN 400 MG CAP PO SCH ×3 (08:16→21:28)
[2019-05-15] MEDS: INSULIN ASPART (NovoLOG) 100 UNIT/ML VIAL SQ SCH ×4 (08:16→21:27)
[2019-05-15] MEDS: ATENOLOL 50 MG TAB PO SCH ×2 (08:16→21:26)
[2019-05-15] MEDS: CLOPIDOGREL 75 MG TAB PO SCH (08:16)
[2019-05-15] MEDS: LOSARTAN 25 MG TAB PO SCH (08:16)
[2019-05-15 11:28] LABS: Glucose,Whole Blood 81 mg/dL (75-99)
[2019-05-15] MEDS ORDERED: KETOROLAC 30 MG/ML 1 ML VIAL IVP STA (11:31)
[2019-05-15 17:04] LABS: Glucose,Whole Blood 258 mg/dL (75-99)
[2019-05-15] MEDS: LORazepam 0.5 MG TAB PO PRN (17:08)
[2019-05-15 20:27] LABS: Glucose,Whole Blood 208 mg/dL (75-99)
[2019-05-15] MEDS: INSULIN DETEMIR (LEVEMIR) 100 UNIT/ML SYR SQ SCH (21:28)
--- NOTE | 2019-05-15 23:57 | P.PN ---
Subjective Progress Note Date: 05/14/19 Principal diagnosis: Acute CHF exacerbation Left lower lobe lung contusion status post fall Patient is a 59-year-old male with a known history of coronary artery disease with stent placement, chronic CHF EF 35%, history of CVA/TIA, diabetes type 2 insulin-dependent, hypertension, hyperlipidemia and history of [place] and other multiple medical problems came to ER with complaints of fall. Patient was brought to the hospital by amylase. Patient says that his legs gave out while he was walking. Denied any head trauma or loss of consciousness. No history of seizures. No bowel or bladder incontinence. Patient also has been having chest pain and left upper quadrant pain. Patient is requesting IV pain medications. Patient has been having shortness of breath recently bypassed to 3 days. Patient is also having left lower chest pain and left upper quadrant pain which gets worse with movement. 10 x 10 on admission. Patient also complaining of catching of breath with it inspiration. No fever no chills. No cough or sputum production. Patient denied any fever or chills at home. Patient does have increased leg swelling. Patient has not followed with lesion recently. Chest x-ray showed cardiomegaly. Increased interstitial opacities correlate for atypical pneumonia interstitial pneumonitis or pulmonary vascular congestion. CT chest abdomen pelvis showed no left hip fracture noted. Mild anasarca small to moderate pleural effusions. Findings suggestive of pul monary edema with fluid overload. Mildly dilated left upper quadrant small bowel loops measuring 3.5 cm. Possible ileus. D-dimer not elevated BNP 9550 Troponin 1 negative. no leukocytosis. 05/14/2019 Patient is still complaining of left lower chest pain which is reproducible. Patient is unable to take deep breath. Encouraged with incentive spirometry. Continue the pain management. Otherwise patient was seen by cardiology and was not recommended at this time. ACS ruled out. Patient will be continued on IV Lasix and follow-up renal function. Patient has been afebrile. A1c 7.8. Blood pressure is stable and saturating well on room air. Leg swelling improved. Current medications reviewed. Active Medications Acetaminophen (Tylenol Tab) 650 mg PO Q6HR PRN PRN Reason: Fever and/ or Pain Last Admin: 05/14/19 08:32 Dose: 650 mg Documented by: Hydrocodone Bitart/Acetaminophen ([place] 5-325) 1 each PO Q6HR PRN PRN Reason: Pain Last Admin: 05/15/19 17:44 Dose: 1 each Documented by: Albuterol/Ipratropium (Duoneb 0.5 Mg-3 Mg/3 Ml Soln) 3 ml INHALATION RT-Q6H [facility] Last Admin: 05/15/19 20:40 Dose: Not Given Documented by: Aspirin (Aspirin) 81 mg PO DAILY [facility] Last Admin: 05/15/19 08:16 Dose: 81 mg Documented by: Atenolol (Tenormin) 100 mg PO BID [facility] Last Admin: 05/15/19 21:26 Dose: 100 mg Documented by: Clopidogrel Bisulfate (Plavix) 75 mg PO DAILY [facility] Last Admin: 05/15/19 08:16 Dose: 75 mg Documented by: Docusate Sodium (Colace) 100 mg PO BID [facility] Last Admin: 05/15/19 21:27 Dose: Not Given Documented by: Furosemide (Lasix) 40 mg IV Q8HR [facility] Last Admin: 05/15/19 17:09 Dose: 40 mg Documented by: Gabapentin (Neurontin) 800 mg PO TID [facility] Last Admin: 05/15/19 21:28 Dose: 800 mg Documented by: Heparin Sodium (Porcine) (Heparin) 5,000 unit SQ Q8HR [facility] Last Admin: 05/15/19 17:12 Dose: 5,000 unit Documented by: Insulin Aspart (Novolog) 0 unit SQ [facility]; Protocol Last Admin: 05/15/19 21:27 Dose: 3 unit Documented by: Insulin Detemir (Levemir) 25 unit SQ HS [facility] Last Admin: 05/15/19 21:28 Dose: 25 unit Documented by: Lorazepam (Ativan) 0.5 mg PO TID PRN PRN Reason: Anxiety Last Admin: 05/15/19 17:08 Dose: 0.5 mg Documented by: Losartan Potassium (Cozaar) 25 mg PO DAILY [facility] Last Admin: 05/15/19 08:16 Dose: 25 mg Documented by: Miscellaneous Information (Potassium Per Protocol) 1 each MISCELLANE DAILY PRN; Protocol PRN Reason: Per Protocol Naloxone HCl (Narcan) 0.2 mg IV Q2M PRN PRN Reason: Opioid Reversal Senna (Senokot) 8.6 mg PO DAILY PRN PRN Reason: Constipation Spironolactone (Aldactone) 25 mg PO DAILY [facility] Last Admin: 05/15/19 08:13 Dose: 25 mg Documented by: Objective - Vital Signs Vital signs: Vital Signs Temp 98.1 F 05/14/19 07:30 Pulse 104 H 05/14/19 09:04 Resp 17 05/14/19 07:30 BP 128/77 05/14/19 07:30 Pulse Ox 91 L 05/14/19 07:30 Intake & Output 05/13/19 05/14/19 05/14/19 18:59 06:59 18:59 Intake Total 2190 Balance 2190 Weight 72.575 kg 72.575 kg Intake: Oral 2190 Other: Voiding Method Toilet Toilet Toilet # Voids 2 - Exam PHYSICAL EXAMINATION: Patient is lying in the bed comfortably, no acute distress, awake alert and oriented.. HEENT: Normocephalic. Neck is supple. Pupils reactive. Nostrils clear. Oral cavity is moist. Ears reveal no drainage. Neck reveals no JVD, carotid bruits, or thyromegaly. CHEST EXAMINATION: Trachea is central. Symmetrical expansion. Bibasilar diminished air entry. Left-sided lower chest wall pain or tenderness. No wheezing. Otherwise Lung barr clear to auscultation and percussion. CARDIAC: Normal S1, S2 with no gallops. No murmurs ABDOMEN: Soft. Bowel sounds normal. No organomegaly. No abdominal bruits. Extremities: trace edema. No clubbing or cyanosis Neurologically awake, alert, oriented x3 with well-coordinated movements. No focal deficits noted Skin: No rash or skin lesions. Psychiatric: Coperative. Nonsuicidal Musculoskeletal: No joint swelling or deformity. Normal range of motion. - Labs CBC & Chem 7: 05/15/19 07:01 05/15/19 07:01 Labs: Abnormal Lab Results - Last 24 Hours (Table) 05/13/19 05/13/19 05/14/19 Range/Units 17:20 19:56 06:50 Potassium (3.5-5.1) mmol/L Carbon Dioxide (22-30) mmol/L BUN (9-20) mg/dL Glucose (74-99) mg/dL POC Glucose (mg/dL) 357 H 171 H 53 L (75-99) mg/dL 05/14/19 05/14/19 05/14/19 Range/Units 07:04 07:09 07:48 Potassium 3.3 L (3.5-5.1) mmol/L Carbon Dioxide 31 H (22-30) mmol/L BUN 27 H (9-20) mg/dL Glucose 45 L* (74-99) mg/dL POC Glucose (mg/dL) 54 L 132 H (75-99) mg/dL 05/14/19 Range/Units 11:28 Potassium (3.5-5.1) mmol/L Carbon Dioxide (22-30) mmol/L BUN (9-20) mg/dL Glucose (74-99) mg/dL POC Glucose (mg/dL) 234 H (75-99) mg/dL Assessment and Plan Assessment: Acute on chronic CHF with systolic dysfunction. Ejection fraction 35% Mild anasarca Ileus. Resolved now. He Ischemic cardiomyopathy Left-sided chest pain likely due to musculoskeletal status post fall. Reproducible. Possible lung contusion. History of CVA/TIA. Walks with walker Hyperglycemia with uncontrolled diabetes type 2 insulin-dependent Hypertension History of [place] Hyperlipidemia Coronary heart disease with history of stent placement Chronic low back pain due to vertebral fractures Diabetic peripheral neuropathy History of hepatitis C Anxiety/depression/bipolar disorder History of benign and marijuana use DVT prophylaxis with heparin subcu Plan: Patient will be continued on telemetry monitoring. Continue with IV Lasix 40 mg every 8 hourly. Continue with aspirin, Plavix and metoprolol. Monitor renal function. Continue with the home insulin dose and sliding scale and titrate dose accordingly. Continue with stool softeners and bowel regimen. Pain management with Tylenol and was given IV morphine 1. Encourage incentive spirometry. Cardiology recommends no intervention at this time. further recommendations based on the clinical course. Time with Patient: Greater than 30
--- NOTE | 2019-05-15 23:58 | P.PN ---
Subjective Progress Note Date: 05/15/19 Principal diagnosis: Acute CHF exacerbation Left lower lobe lung contusion status post fall Patient is a 59-year-old male with a known history of coronary artery disease with stent placement, chronic CHF EF 35%, history of CVA/TIA, diabetes type 2 insulin-dependent, hypertension, hyperlipidemia and history of [place] and other multiple medical problems came to ER with complaints of fall. Patient was brought to the hospital by amylase. Patient says that his legs gave out while he was walking. Denied any head trauma or loss of consciousness. No history of seizures. No bowel or bladder incontinence. Patient also has been having chest pain and left upper quadrant pain. Patient is requesting IV pain medications. Patient has been having shortness of breath recently bypassed to 3 days. Patient is also having left lower chest pain and left upper quadrant pain which gets worse with movement. 10 x 10 on admission. Patient also complaining of catching of breath with it inspiration. No fever no chills. No cough or sputum production. Patient denied any fever or chills at home. Patient does have increased leg swelling. Patient has not followed with lesion recently. Chest x-ray showed cardiomegaly. Increased interstitial opacities correlate for atypical pneumonia interstitial pneumonitis or pulmonary vascular congestion. CT chest abdomen pelvis showed no left hip fracture noted. Mild anasarca small to moderate pleural effusions. Findings suggestive of pul monary edema with fluid overload. Mildly dilated left upper quadrant small bowel loops measuring 3.5 cm. Possible ileus. D-dimer not elevated BNP 9550 Troponin 1 negative. no leukocytosis. 05/14/2019 Patient is still complaining of left lower chest pain which is reproducible. Patient is unable to take deep breath. Encouraged with incentive spirometry. Continue the pain management. Otherwise patient was seen by cardiology and was not recommended at this time. ACS ruled out. Patient will be continued on IV Lasix and follow-up renal function. Patient has been afebrile. A1c 7.8. Blood pressure is stable and saturating well on room air. Leg swelling improved. 05/15/2019 Patient's breathing status is much improved now. Saturating well on room air. IV Lasix will be reduced to twice a day. Otherwise patient still complaining of left lower chest wall pain and tenderness. Was given a dose of IV Toradol. Continue with pain management with Tylenol and [place]. Incentive spirometry. Follow-up closely. Patient has been afebrile. No worsening shortness of breath. No headache or dizziness or lightheadedness. No cough or sputum production. Current medications reviewed. Active Medications Acetaminophen (Tylenol Tab) 650 mg PO Q6HR PRN PRN Reason: Fever and/ or Pain Last Admin: 05/14/19 08:32 Dose: 650 mg Documented by: Hydrocodone Bitart/Acetaminophen ([place] 5-325) 1 each PO Q6HR PRN PRN Reason: Pain Last Admin: 05/15/19 17:44 Dose: 1 each Documented by: Albuterol/Ipratropium (Duoneb 0.5 Mg-3 Mg/3 Ml Soln) 3 ml INHALATION RT-Q6H [facility] Last Admin: 05/15/19 20:40 Dose: Not Given Documented by: Aspirin (Aspirin) 81 mg PO DAILY [facility] Last Admin: 05/15/19 08:16 Dose: 81 mg Documented by: Atenolol (Tenormin) 100 mg PO BID [facility] Last Admin: 05/15/19 21:26 Dose: 100 mg Documented by: Clopidogrel Bisulfate (Plavix) 75 mg PO DAILY [facility] Last Admin: 05/15/19 08:16 Dose: 75 mg Documented by: Docusate Sodium (Colace) 100 mg PO BID [facility] Last Admin: 05/15/19 21:27 Dose: Not Given Documented by: Furosemide (Lasix) 40 mg IV Q8HR [facility] Last Admin: 05/15/19 17:09 Dose: 40 mg Documented by: Gabapentin (Neurontin) 800 mg PO TID [facility] Last Admin: 05/15/19 21:28 Dose: 800 mg Documented by: Heparin Sodium (Porcine) (Heparin) 5,000 unit SQ Q8HR [facility] Last Admin: 05/15/19 17:12 Dose: 5,000 unit Documented by: Insulin Aspart (Novolog) 0 unit SQ ACHS [facility]; Protocol Last Admin: 05/15/19 21:27 Dose: 3 unit Documented by: Insulin Detemir (Levemir) 25 unit SQ HS [facility] Last Admin: 05/15/19 21:28 Dose: 25 unit Documented by: Lorazepam (Ativan) 0.5 mg PO TID PRN PRN Reason: Anxiety Last Admin: 05/15/19 17:08 Dose: 0.5 mg Documented by: Losartan Potassium (Cozaar) 25 mg PO DAILY [facility] Last Admin: 05/15/19 08:16 Dose: 25 mg Documented by: Miscellaneous Information (Potassium Per Protocol) 1 each MISCELLANE DAILY PRN; Protocol PRN Reason: Per Protocol Naloxone HCl (Narcan) 0.2 mg IV Q2M PRN PRN Reason: Opioid Reversal Senna (Senokot) 8.6 mg PO DAILY PRN PRN Reason: Constipation Spironolactone (Aldactone) 25 mg PO DAILY [facility] Last Admin: 05/15/19 08:13 Dose: 25 mg Documented by: Objective - Vital Signs Vital signs: Vital Signs Temp 97 F L 05/15/19 11:28 Pulse 65 05/15/19 11:28 Resp 16 05/15/19 11:28 BP 115/77 05/15/19 11:28 Pulse Ox 97 05/15/19 11:28 Intake & Output 05/14/19 05/15/19 05/15/19 18:59 06:59 18:59 Intake Total 1180 Balance 1180 Weight 72.575 kg 62.8 kg Intake: Oral 1180 Other: Voiding Method Toilet Toilet Toilet # Voids 2 2 # Bowel Movements 0 - Exam PHYSICAL EXAMINATION: Patient is lying in the bed comfortably, no acute distress, awake alert and oriented.. HEENT: Normocephalic. Neck is supple. Pupils reactive. Nostrils clear. Oral cavity is moist. Ears reveal no drainage. Neck reveals no JVD, carotid bruits, or thyromegaly. CHEST EXAMINATION: Trachea is central. Symmetrical expansion. Bibasilar diminished air entry. Left-sided lower chest wall pain or tenderness. No wheezing. Otherwise Lung barr clear to auscultation and percussion. CARDIAC: Normal S1, S2 with no gallops. No murmurs ABDOMEN: Soft. Bowel sounds normal. No organomegaly. No abdominal bruits. Extremities: trace edema. No clubbing or cyanosis Neurologically awake, alert, oriented x3 with well-coordinated movements. No focal deficits noted Skin: No rash or skin lesions. Psychiatric: Coperative. Nonsuicidal Musculoskeletal: No joint swelling or deformity. Normal range of motion. - Labs CBC & Chem 7: 05/15/19 07:01 05/15/19 07:01 Labs: Abnormal Lab Results - Last 24 Hours (Table) 05/14/19 05/14/19 05/14/19 Range/Units 07:04 19:53 22:09 Carbon Dioxide (22-30) mmol/L BUN (9-20) mg/dL Glucose (74-99) mg/dL POC Glucose (mg/dL) 292 H 137 H (75-99) mg/dL Hemoglobin A1c 7.8 H (4.0-6.0) % ALT (21-72) U/L 05/15/19 05/15/19 05/15/19 Range/Units 04:52 05:27 07:01 Carbon Dioxide 36 H (22-30) mmol/L BUN 34 H (9-20) mg/dL Glucose 107 H (74-99) mg/dL POC Glucose (mg/dL) 67 L 112 H (75-99) mg/dL Hemoglobin A1c (4.0-6.0) % ALT 10 L (21-72) U/L 05/15/19 05/15/19 Range/Units 07:08 17:03 Carbon Dioxide (22-30) mmol/L BUN (9-20) mg/dL Glucose (74-99) mg/dL POC Glucose (mg/dL) 154 H 258 H (75-99) mg/dL Hemoglobin A1c (4.0-6.0) % ALT (21-72) U/L Assessment and Plan Assessment: Acute on chronic CHF with systolic dysfunction. Ejection fraction 35% Mild anasarca Ileus. Resolved now. He Ischemic cardiomyopathy Left-sided chest pain likely due to musculoskeletal status post fall. Reproducible. Possible lung contusion. History of CVA/TIA. Walks with walker Hyperglycemia with uncontrolled diabetes type 2 insulin-dependent Hypertension History of [place] Hyperlipidemia Coronary heart disease with history of stent placement Chronic low back pain due to vertebral fractures Diabetic peripheral neuropathy History of hepatitis C Anxiety/depression/bipolar disorder History of benign and marijuana use DVT prophylaxis with heparin subcu Plan: Patient will be continued on telemetry monitoring. Continue with IV Lasix 40 mg every 8 hourly. Continue with aspirin, Plavix and metoprolol. Monitor renal function. Continue with the home insulin dose and sliding scale and titrate dose accordingly. Continue with stool softeners and bowel regimen. Pain management with Tylenol and was given IV morphine 1. Encourage incentive spirometry. Cardiology recommends no intervention at this time. further recommendations based on the clinical course. Time with Patient: Greater than 30
[2019-05-16] MEDS: HYDROcodone/APAP 5-325MG 1 EACH TAB PO PRN ×3 (00:11→19:23)
[2019-05-16] MEDS: FUROSEMIDE 10 MG/ML 4 ML VIAL IV SCH ×2 (00:13→07:48)
[2019-05-16] MEDS: HEPARIN SODIUM,PORCINE 5,000 UNIT/ML 1 ML VIAL SQ SCH ×4 (00:13→23:27)
[2019-05-16] MEDS: IPRATROPIUM-ALBUTEROL 3 ML NEB INHALATION SCH ×4 (00:26→19:50)
[2019-05-16] MEDS: LORazepam 0.5 MG TAB PO PRN ×3 (01:05→19:23)
[2019-05-16 01:49] LABS: Glucose,Whole Blood 205 mg/dL (75-99)
[2019-05-16 05:10] LABS: Glucose,Whole Blood 192 mg/dL (75-99)
[2019-05-16 07:10] LABS: Glucose,Whole Blood 205 mg/dL (75-99)
[2019-05-16] MEDS: INSULIN ASPART (NovoLOG) 100 UNIT/ML VIAL SQ SCH ×4 (07:47→21:28)
[2019-05-16] MEDS: ATENOLOL 50 MG TAB PO SCH ×2 (07:48→21:29)
[2019-05-16] MEDS: DOCUSATE 100 MG CAP PO SCH ×2 (07:49→21:29)
[2019-05-16] MEDS: CLOPIDOGREL 75 MG TAB PO SCH (07:49)
[2019-05-16] MEDS: LOSARTAN 25 MG TAB PO SCH (07:49)
[2019-05-16] MEDS: SPIRONOLACTONE 25 MG TAB PO SCH (07:49)
[2019-05-16] MEDS: GABAPENTIN 400 MG CAP PO SCH ×3 (07:49→21:29)
[2019-05-16] MEDS: ASPIRIN 81 MG PO SCH (07:49)
--- NOTE | 2019-05-16 09:05 | XR ---
EXAMINATION TYPE: XR chest 2V DATE OF EXAM: 05/16/2019 HISTORY: pulmonary edema. REFERENCE: Previous study dated 05/13/2019. FINDINGS: Lung volumes are prominent. Heart size is upper limits of normal. Pulmonary vascular conges tion has improved. Interstitial change has improved. IMPRESSION: IMPROVING CHANGES OF PULMONARY EDEMA.
--- NOTE | 2019-05-16 09:52 | P.PN ---
Subjective Progress Note Date: 05/15/19 This is a 59-year-old gentleman with history of cardiomyopathy, hypertension, dyslipidemia, and also diabetes mellitus with history of substance abuse who is noncompliant with medication and is admitted to the hospital with complaints of chest pain and back pain and pain all over the body. He chest x-ray was consistent with congestive heart failure. He was initiated on his home medications including diuretics. He doesn't seem to be in acute respiratory distress but still complaining of severe pain and requesting more pain medications. His lungs appeared to be relatively clear. Heart is regular. We'll continue current medical therapy. Get a chest x-ray in the morning along with blood work Objective - Vital Signs Vital signs: Vital Signs Temp 97.7 F 05/16/19 04:10 Pulse 67 05/16/19 04:10 Resp 16 05/16/19 04:10 BP 115/72 05/16/19 04:10 Pulse Ox 93 L 05/16/19 04:10 Intake & Output 05/15/19 05/16/19 05/16/19 18:59 06:59 18:59 Weight 60 kg Other: Voiding Method Toilet Toilet # Voids 2 # Bowel Movements 0 - Exam GENERAL EXAM: Patient is alert and oriented and appears to be in moderate distress HEENT: Normocephalic. Normal reaction of pupils, equal size, normal range of extraocular motion. No erythema or exudates in the throat. NECK: No masses, no nuchal rigidity. CHEST: No chest wall deformity. LUNGS: Equal air entry with no crackles or wheeze. HEART: S1 and S2 normal with no audible mumurs or gallops. Regular rhythm, femorals equal on both sides.. ABDOMEN: No hepatosplenomegaly, normal bowel sounds, no guarding or rigidity. SKIN: No rashes CENTRAL NERVOUS SYSTEM: No focal deficits. EXTREMITIES: No cyanosis, clubbing or edema. - Labs CBC & Chem 7: 05/15/19 07:01 05/15/19 07:01 Labs: Abnormal Lab Results - Last 24 Hours (Table) 05/15/19 05/15/19 05/16/19 Range/Units 17:03 20:25 01:47 POC Glucose (mg/dL) 258 H 208 H 205 H (75-99) mg/dL 05/16/19 05/16/19 Range/Units 05:08 07:09 POC Glucose (mg/dL) 192 H 205 H (75-99) mg/dL Assessment and Plan (1) Cardiomyopathy Current Visit: Yes Status: Acute Code(s): I42.9 - CARDIOMYOPATHY, UNSPECIFIED SNOMED Code(s): 34010515 (2) COPD exacerbation Current Visit: Yes Status: Acute Code(s): J44.1 - CHRONIC OBSTRUCTIVE PULMONARY DISEASE W (ACUTE) EXACERBATION SNOMED Code(s): 864608547 (3) Congestive heart failure Current Visit: Yes Status: Acute Code(s): I50.9 - HEART FAILURE, UNSPECIFIED SNOMED Code(s): 23483811 (4) Chest pain Current Visit: No Status: Acute Code(s): R07.9 - CHEST PAIN, UNSPECIFIED SNOMED Code(s): 89991319 Plan: Continue current medical therapy. Chest x-ray and blood work in the morning
[2019-05-16 11:15] LABS: Glucose,Whole Blood 108 mg/dL (75-99)
[2019-05-16 16:36] LABS: Glucose,Whole Blood 348 mg/dL (75-99)
[2019-05-16] MEDS ORDERED: HYDROmorphone 0.5 MG/0.5 ML SYRINGE IVP STA (16:59)
[2019-05-16 20:15] LABS: Glucose,Whole Blood 233 mg/dL (75-99)
[2019-05-16] MEDS: INSULIN DETEMIR (LEVEMIR) 100 UNIT/ML SYR SQ SCH (21:28)
[2019-05-16] MEDS: FUROSEMIDE 40 MG TAB PO SCH (21:30)
[2019-05-17] MEDS: HYDROcodone/APAP 5-325MG 1 EACH TAB PO PRN ×2 (01:13→08:20)
[2019-05-17] MEDS: IPRATROPIUM-ALBUTEROL 3 ML NEB INHALATION SCH ×3 (01:17→12:55)
[2019-05-17] MEDS: LORazepam 0.5 MG TAB PO PRN (03:29)
--- NOTE | 2019-05-17 07:19 | XR ---
EXAMINATION TYPE: XR chest 1V DATE OF EXAM: 05/17/2019 COMPARISON: 05/16/2019 HISTORY: 59-year-old male shortness of breath, difficulty in breathing TECHNIQUE: Single frontal view of the chest is obtained. FINDINGS: Heart mildly enlarged. Diffuse interstitial and perihilar densities, slightly increased from prior. N o consolidation or pleural effusion. IMPRESSION: Cardiomegaly with increasing interstitial densities. Correlate for CHF with pulmonary vascular conges tion.
[2019-05-17 07:23] LABS: Basophils # (A) 0.2 k/uL (0-0.2); Basophils % (A) 2 %; Eosinophils # (A) 0.2 k/uL (0-0.7); Eosinophils % (A) 2 %; HCT 41.6 % (39.0-53.0); HGB 13.3 gm/dL (13.0-17.5); Hypochromasia Slight; Lymphocytes # (A) 3.1 k/uL (1.0-4.8); Lymphocytes % (A) 37 %; MCH 31.7 pg (25.0-35.0); MCHC 31.9 g/dL (31.0-37.0); MCV 99.4 fL (80.0-100.0); Mean Platelet Volume 7.7; Monocytes # (A) 0.5 k/uL (0-1.0); Monocytes % (A) 6 %; Neutrophils # (A) 4.2 k/uL (1.3-7.7); Neutrophils % (A) 51 %; Platelet Count 188 k/uL (150-450); RBC 4.19 m/uL (4.30-5.90); RDW 13.4 % (11.5-15.5); WBC 8.3 k/uL (3.8-10.6)
[2019-05-17 07:26] LABS: Glucose,Whole Blood 122 mg/dL (75-99)
[2019-05-17 07:35] LABS: Potassium 4.6 mmol/L (3.5-5.1)
[2019-05-17] MEDS: INSULIN ASPART (NovoLOG) 100 UNIT/ML VIAL SQ SCH ×2 (08:13→12:55)
[2019-05-17] MEDS: ASPIRIN 81 MG PO SCH (08:14)
[2019-05-17] MEDS: FUROSEMIDE 40 MG TAB PO SCH (08:14)
[2019-05-17] MEDS: SPIRONOLACTONE 25 MG TAB PO SCH (08:14)
[2019-05-17] MEDS: GABAPENTIN 400 MG CAP PO SCH (08:14)
[2019-05-17] MEDS: HEPARIN SODIUM,PORCINE 5,000 UNIT/ML 1 ML VIAL SQ SCH (08:14)
[2019-05-17] MEDS: LOSARTAN 25 MG TAB PO SCH (08:14)
[2019-05-17] MEDS: CLOPIDOGREL 75 MG TAB PO SCH (08:14)
[2019-05-17] MEDS: DOCUSATE 100 MG CAP PO SCH (08:14)
[2019-05-17] MEDS: ATENOLOL 50 MG TAB PO SCH (08:14)
[2019-05-17] MEDS ORDERED: FUROSEMIDE 10 MG/ML 2 ML VIAL IV ONE (10:30)
[2019-05-17 11:41] LABS: Glucose,Whole Blood 237 mg/dL (75-99)
[2019-05-17 12:16] VITALS: BP 118/70; RESP 17; TEMP 97.4
[2019-05-17 13:13] VITALS: PULSE 67
--- NOTE | 2019-05-17 16:29 | P.PN ---
Subjective Progress Note Date: 05/17/19 Principal diagnosis: Acute CHF exacerbation Left lower lobe lung contusion status post fall Patient is a 59-year-old male with a known history of coronary artery disease with stent placement, chronic CHF EF 35%, history of CVA/TIA, diabetes type 2 insulin-dependent, hypertension, hyperlipidemia and history of [place] and other multiple medical problems came to ER with complaints of fall. Patient was brought to the hospital by amylase. Patient says that his legs gave out while he was walking. Denied any head trauma or loss of consciousness. No history of seizures. No bowel or bladder incontinence. Patient also has been having chest pain and left upper quadrant pain. Patient is requesting IV pain medications. Patient has been having shortness of breath recently bypassed to 3 days. Patient is also having left lower chest pain and left upper quadrant pain which gets worse with movement. 10 x 10 on admission. Patient also complaining of catching of breath with it inspiration. No fever no chills. No cough or sputum production. Patient denied any fever or chills at home. Patient does have increased leg swelling. Patient has not followed with lesion recently. Chest x-ray showed cardiomegaly. Increased interstitial opacities correlate for atypical pneumonia interstitial pneumonitis or pulmonary vascular congestion. CT chest abdomen pelvis showed no left hip fracture noted. Mild anasarca small to moderate pleural effusions. Findings suggestive of pul monary edema with fluid overload. Mildly dilated left upper quadrant small bowel loops measuring 3.5 cm. Possible ileus. D-dimer not elevated BNP 9550 Troponin 1 negative. no leukocytosis. 05/14/2019 Patient is still complaining of left lower chest pain which is reproducible. Patient is unable to take deep breath. Encouraged with incentive spirometry. Continue the pain management. Otherwise patient was seen by cardiology and was not recommended at this time. ACS ruled out. Patient will be continued on IV Lasix and follow-up renal function. Patient has been afebrile. A1c 7.8. Blood pressure is stable and saturating well on room air. Leg swelling improved. 05/15/2019 Patient's breathing status is much improved now. Saturating well on room air. IV Lasix will be reduced to twice a day. Otherwise patient still complaining of left lower chest wall pain and tenderness. Was given a dose of IV Toradol. Continue with pain management with Tylenol and [place]. Incentive spirometry. Follow-up closely. Patient has been afebrile. No worsening shortness of breath. No headache or dizziness or lightheadedness. No cough or sputum production. 05/17/2019 Patient is sitting up in the chair in no acute distress with no acute overnight issues. Patient is having some pain on that left lower side due to recent fall. Patient is requesting IV pain medications discussed with the patient that he has Clayton ordered as he will not be receiving IV pain medications in the outpatient setting. Currently patient denies any chest pain, shortness of breath, or palpitations. Patient is afebrile. Patient denies any nausea or vomiting and is tolerating diet. Discussed with the patient about continuing with incentive spirometry at least 10 times every hour while awake. Chest x-ray shows cardiomegaly with increasing interstitial densities. Patient is currently maintained on oral Lasix and was given a one-time dose of IV Lasix today. Patient stated to the RN that if he doesn't receive IV pain medication he will be leaving AGAINST MEDICAL ADVICE. Patient was offered a Clayton and refused and started getting dressed. Objective - Vital Signs Vital signs: Vital Signs Temp 97.4 F L 05/17/19 12:15 Pulse 67 05/17/19 13:05 Resp 17 05/17/19 12:15 BP 118/70 05/17/19 12:15 Pulse Ox 100 05/17/19 12:15 Intake & Output 05/16/19 05/17/19 05/17/19 18:59 06:59 18:59 Intake Total 1770 240 Balance 1770 240 Weight 68.5 kg Intake: Oral 1770 240 Other: Voiding Method Toilet Toilet # Voids 2 # Bowel Movements 0 - Exam Patient is sitting up in the chair comfortably, no acute distress, awake alert and oriented.. HEENT: Normocephalic. Neck is supple. Pupils reactive. Nostrils clear. Oral cavity is moist. Ears reveal no drainage. Neck reveals no JVD, carotid bruits, or thyromegaly. CHEST EXAMINATION: Trachea is central. Symmetrical expansion. Bibasilar diminished air entry. Left-sided lower chest wall pain and tenderness upon palpation. No wheezing. Otherwise Lung barr clear to auscultation and percussion. CARDIAC: Normal S1, S2 with no gallops. No murmurs ABDOMEN: Soft. Bowel sounds normal. No organomegaly. No abdominal bruits. Extremities: trace edema. No clubbing or cyanosis Neurologically awake, alert, oriented x3 with well-coordinated movements. No focal deficits noted Skin: No rash or skin lesions. Psychiatric: Cooperative. Non-suicidal Musculoskeletal: No joint swelling or deformity. Normal range of motion. - Labs CBC & Chem 7: 05/17/19 06:33 05/17/19 06:33 Labs: Abnormal Lab Results - Last 24 Hours (Table) 05/16/19 05/16/19 05/17/19 Range/Units 16:35 20:13 06:33 RBC 4.19 L (4.30-5.90) m/uL BUN (9-20) mg/dL Glucose (74-99) mg/dL POC Glucose (mg/dL) 348 H 233 H (75-99) mg/dL 05/17/19 05/17/19 05/17/19 Range/Units 06:33 07:08 11:24 RBC (4.30-5.90) m/uL BUN 42 H (9-20) mg/dL Glucose 114 H (74-99) mg/dL POC Glucose (mg/dL) 122 H 237 H (75-99) mg/dL Assessment and Plan Assessment: Acute on chronic CHF with systolic dysfunction. Ejection fraction 35% Mild anasarca Ileus. Resolved now. Ischemic cardiomyopathy Left-sided chest pain likely due to musculoskeletal status post fall. Reproducible. Possible lung contusion. History of CVA/TIA. Walks with walker Hyperglycemia with uncontrolled diabetes type 2 insulin-dependent Hypertension History of [place] Hyperlipidemia Coronary heart disease with history of stent placement Chronic low back pain due to vertebral fractures Diabetic peripheral neuropathy History of hepatitis C Anxiety/depression/bipolar disorder History of benign and marijuana use DVT prophylaxis with heparin subcu Plan: Patient will be continued on telemetry monitoring. Continue with lasix. Continue with aspirin, Plavix and metoprolol. Monitor renal function. Continue with the home insulin dose and sliding scale and titrate dose accordingly. Continue with stool softeners and bowel regimen. Pain management with Tylenol and [place]. Abstain from IV pain medications Encourage incentive spirometry. Cardiology recommends no intervention at this time. further recommendations based on the clinical course.
--- NOTE | 2019-05-20 18:44 | P.PN ---
Subjective Progress Note Date: 05/16/19 Principal diagnosis: Acute CHF exacerbation Left lower lobe lung contusion status post fall Patient is a 59-year-old male with a known history of coronary artery disease with stent placement, chronic CHF EF 35%, history of CVA/TIA, diabetes type 2 insulin-dependent, hypertension, hyperlipidemia and history of [place] and other multiple medical problems came to ER with complaints of fall. Patient was brought to the hospital by amylase. Patient says that his legs gave out while he was walking. Denied any head trauma or loss of consciousness. No history of seizures. No bowel or bladder incontinence. Patient also has been having chest pain and left upper quadrant pain. Patient is requesting IV pain medications. Patient has been having shortness of breath recently bypassed to 3 days. Patient is also having left lower chest pain and left upper quadrant pain which gets worse with movement. 10 x 10 on admission. Patient also complaining of catching of breath with it inspiration. No fever no chills. No cough or sputum production. Patient denied any fever or chills at home. Patient does have increased leg swelling. Patient has not followed with lesion recently. Chest x-ray showed cardiomegaly. Increased interstitial opacities correlate for atypical pneumonia interstitial pneumonitis or pulmonary vascular congestion. CT chest abdomen pelvis showed no left hip fracture noted. Mild anasarca small to moderate pleural effusions. Findings suggestive of pul monary edema with fluid overload. Mildly dilated left upper quadrant small bowel loops measuring 3.5 cm. Possible ileus. D-dimer not elevated BNP 9550 Troponin 1 negative. no leukocytosis. 05/14/2019 Patient is still complaining of left lower chest pain which is reproducible. Patient is unable to take deep breath. Encouraged with incentive spirometry. Continue the pain management. Otherwise patient was seen by cardiology and was not recommended at this time. ACS ruled out. Patient will be continued on IV Lasix and follow-up renal function. Patient has been afebrile. A1c 7.8. Blood pressure is stable and saturating well on room air. Leg swelling improved. 05/15/2019 Patient's breathing status is much improved now. Saturating well on room air. IV Lasix will be reduced to twice a day. Otherwise patient still complaining of left lower chest wall pain and tenderness. Was given a dose of IV Toradol. Continue with pain management with Tylenol and [place]. Incentive spirometry. Follow-up closely. Patient has been afebrile. No worsening shortness of breath. No headache or dizziness or lightheadedness. No cough or sputum production. 05 16 2019 Patient still complains of left lower chest wall pain. Requesting IV pain medications. Otherwise breathing status is better. Saturating well on room air. Lasix will be changed to by mouth. No complaints of nausea vomiting or abdominal pain. No leg swelling currently. No headache or dizziness or lightheadedness. Cardiology is following. Anticipate discharge in next 24-48 hours with more clinical improvement. Current medications reviewed. Active Medications Acetaminophen (Tylenol Tab) 650 mg PO Q6HR PRN PRN Reason: Fever and/ or Pain Last Admin: 05/14/19 08:32 Dose: 650 mg Documented by: Hydrocodone Bitart/Acetaminophen ([place] 5-325) 1 each PO Q6HR PRN PRN Reason: Pain Last Admin: 05/15/19 17:44 Dose: 1 each Documented by: Albuterol/Ipratropium (Duoneb 0.5 Mg-3 Mg/3 Ml Soln) 3 ml INHALATION RT-Q6H [facility] Last Admin: 05/15/19 20:40 Dose: Not Given Documented by: Aspirin (Aspirin) 81 mg PO DAILY [facility] Last Admin: 05/15/19 08:16 Dose: 81 mg Documented by: Atenolol (Tenormin) 100 mg PO BID [facility] Last Admin: 05/15/19 21:26 Dose: 100 mg Documented by: Clopidogrel Bisulfate (Plavix) 75 mg PO DAILY [facility] Last Admin: 05/15/19 08:16 Dose: 75 mg Documented by: Docusate Sodium (Colace) 100 mg PO BID [facility] Last Admin: 05/15/19 21:27 Dose: Not Given Documented by: Furosemide (Lasix) 40 mg IV Q8HR [facility] Last Admin: 05/15/19 17:09 Dose: 40 mg Documented by: Gabapentin (Neurontin) 800 mg PO TID [facility] Last Admin: 05/15/19 21:28 Dose: 800 mg Documented by: Heparin Sodium (Porcine) (Heparin) 5,000 unit SQ Q8HR [facility] Last Admin: 05/15/19 17:12 Dose: 5,000 unit Documented by: Insulin Aspart (Novolog) 0 unit SQ [facility]; Protocol Last Admin: 11/16/19 21:27 Dose: 3 unit Documented by: Insulin Detemir (Levemir) 25 unit SQ HS [facility] Last Admin: 05/15/19 21:28 Dose: 25 unit Documented by: Lorazepam (Ativan) 0.5 mg PO TID PRN PRN Reason: Anxiety Last Admin: 05/15/19 17:08 Dose: 0.5 mg Documented by: Losartan Potassium (Cozaar) 25 mg PO DAILY [facility] Last Admin: 05/15/19 08:16 Dose: 25 mg Documented by: Miscellaneous Information (Potassium Per Protocol) 1 each MISCELLANE DAILY PRN; Protocol PRN Reason: Per Protocol Naloxone HCl (Narcan) 0.2 mg IV Q2M PRN PRN Reason: Opioid Reversal Senna (Senokot) 8.6 mg PO DAILY PRN PRN Reason: Constipation Spironolactone (Aldactone) 25 mg PO DAILY [facility] Last Admin: 05/15/19 08:13 Dose: 25 mg Documented by: Objective - Vital Signs Vital signs: Vital Signs Temp 98.4 F 05/16/19 11:20 Pulse 64 05/16/19 11:48 Resp 16 05/16/19 11:20 BP 116/74 05/16/19 11:20 Pulse Ox 100 05/16/19 11:20 Intake & Output 05/15/19 05/16/19 05/16/19 18:59 06:59 18:59 Weight 60 kg Other: Voiding Method Toilet Toilet Toilet # Voids 2 # Bowel Movements 0 - Exam PHYSICAL EXAMINATION: Patient is lying in the bed comfortably, no acute distress, awake alert and oriented.. HEENT: Normocephalic. Neck is supple. Pupils reactive. Nostrils clear. Oral ca vity is moist. Ears reveal no drainage. Neck reveals no JVD, carotid bruits, or thyromegaly. CHEST EXAMINATION: Trachea is central. Symmetrical expansion. Bibasilar diminished air entry. Left-sided lower chest wall pain or tenderness. No wheezing. Otherwise Lung barr clear to auscultation and percussion. CARDIAC: Normal S1, S2 with no gallops. No murmurs ABDOMEN: Soft. Bowel sounds normal. No organomegaly. No abdominal bruits. Extremities: trace edema. No clubbing or cyanosis Neurologically awake, alert, oriented x3 with well-coordinated movements. No focal deficits noted Skin: No rash or skin lesions. Psychiatric: Coperative. Nonsuicidal Musculoskeletal: No joint swelling or deformity. Normal range of motion. - Labs CBC & Chem 7: 05/17/19 06:33 05/17/19 06:33 Labs: Abnormal Lab Results - Last 24 Hours (Table) 05/15/19 05/15/19 05/16/19 Range/Units 17:03 20:25 01:47 POC Glucose (mg/dL) 258 H 208 H 205 H (75-99) mg/dL 05/16/19 05/16/19 05/16/19 Range/Units 05:08 07:09 11:13 POC Glucose (mg/dL) 192 H 205 H 108 H (75-99) mg/dL 05/16/19 Range/Units 16:35 POC Glucose (mg/dL) 348 H (75-99) mg/dL Assessment and Plan Assessment: Acute on chronic CHF with systolic dysfunction. Ejection fraction 35% Mild anasarca Ileus. Resolved now. Ischemic cardiomyopathy Left-sided chest pain likely due to musculoskeletal status post fall. Reproducible. Possible lung contusion. History of CVA/TIA. Walks with walker Hyperglycemia with uncontrolled diabetes type 2 insulin-dependent Hypertension History of [place] Hyperlipidemia Coronary heart disease with history of stent placement Chronic low back pain due to vertebral fractures Diabetic peripheral neuropathy History of hepatitis C Anxiety/depression/bipolar disorder History of benign and marijuana use DVT prophylaxis with heparin subcu Plan: Patient will be continued on telemetry monitoring. Continue with IV Lasix 40 mg every 8 hourly-changed to Lasix 40 mg by mouth twice daily.. Continue with aspirin, Plavix and metoprolol. Monitor renal function. Continue with the home insulin dose and sliding scale and titrate dose accordingly. Continue with stool softeners and bowel regimen. Pain management with Tylenol. Encourage incentive spirometry. Cardiology recommends no intervention at this time. further recommendations based on the clinical course. Time with Patient: Greater than 30
--- NOTE | 2019-05-20 18:49 | P.DS ---
Providers Date of admission: 05/14/19 10:15 Expected date of discharge: 05/17/19 Attending physician: Shaheed Panda Consults: 05/13/19 13:24 Consult Physician Stat Consulting Provider: Tr Maldonado Consult Reason/Comments: CHF Do you want consulting provider notified?: Yes Primary care physician: Stated None Hospital Course: Discharge Diagnosis Acute on chronic CHF with systolic dysfunction. Ejection fraction 35% Mild anasarca Ileus. Resolved now. Ischemic cardiomyopathy Left-sided chest pain likely due to musculoskeletal status post fall. Reproducible. Possible lung contusion. History of CVA/TIA. Walks with walker Hyperglycemia with uncontrolled diabetes type 2 insulin-dependent Hypertension History of [place] Hyperlipidemia Coronary heart disease with history of stent placement Chronic low back pain due to vertebral fractures Diabetic peripheral neuropathy History of hepatitis C Anxiety/depression/bipolar disorder History of benign and marijuana use DVT prophylaxis with heparin subcu Hospital course Patient is a 59-year-old male with a known history of coronary artery disease with stent placement, chronic CHF EF 35%, history of CVA/TIA, diabetes type 2 insulin-dependent, hypertension, hyperlipidemia and history of [place] and other multiple medical problems came to ER with complaints of fall. Patient was brought to the hospital by amylase. Patient says that his legs gave out while he was walking. Denied any head trauma or loss of consciousness. No history of seizures. No bowel or bladder incontinence. Patient also has been having chest pain and left upper quadrant pain. Patient is requesting IV pain medications. Patient has been having shortness of breath recently bypassed to 3 days. Patient is also having left lower chest pain and left upper quadrant pain which gets worse with movement. 10 x 10 on admission. Patient also complaining of catching of breath with it inspiration. No fever no chills. No cough or sputum production. Patient denied any fever or chills at home. Patient does have increased leg swelling. Patient has not followed with lesion recently. Chest x-ray showed cardiomegaly. Increased interstitial opacities correlate for atypical pneumonia interstitial pneumonitis or pulmonary vascular congestion. CT chest abdomen pelvis showed no left hip fracture noted. Mild anasarca small to moderate pleural effusions. Findings suggestive of pulmonary edema with fluid overload. Mildly dilated left upper quadrant small bowel loops measuring 3.5 cm. Possible ileus. D-dimer not elevated BNP 9550 Troponin 1 negative. no leukocytosis. 05/14/2019 Patient is still complaining of left lower chest pain which is reproducible. Patient is unable to take deep breath. Encouraged with incentive spirometry. Continue the pain management. Otherwise patient was seen by cardiology and was not recommended at this time. ACS ruled out. Patient will be continued on IV Lasix and follow-up renal function. Patient has been afebrile. A1c 7.8. Blood pressure is stable and saturating well on room air. Leg swelling improved. 05/15/2019 Patient's breathing status is much improved now. Saturating well on room air. IV Lasix will be reduced to twice a day. Otherwise patient still complaining of left lower chest wall pain and tenderness. Was given a dose of IV Toradol. Continue with pain management with Tylenol and [place]. Incentive spirometry. Follow-up closely. Patient has been afebrile. No worsening shortness of breath. No headache or dizziness or lightheadedness. No cough or sputum production. 05/17/2019 Patient is sitting up in the chair in no acute distress with no acute overnight issues. Patient is having some pain on that left lower side due to recent fall. Patient is requesting IV pain medications discussed with the patient that he has [place] ordered as he will not be receiving IV pain medications in the outpatient setting. Currently patient denies any chest pain, shortness of [place] th, or palpitations. Patient is afebrile. Patient denies any nausea or vomiting and is tolerating diet. Discussed with the patient about continuing with incentive spirometry at least 10 times every hour while awake. Chest x-ray shows cardiomegaly with increasing interstitial densities. Patient is currently maintained on oral Lasix and was given a one-time dose of IV Lasix today. Patient stated to the RN that if he doesn't receive IV pain medication he will be leaving AGAINST MEDICAL ADVICE. Patient was offered a Magness and refused and started getting dressed. Discharge physical examination was done and vitals reviewed. Patient Condition at Discharge: Fair Plan - Discharge Summary Discharge Rx Participant: No New Discharge Prescriptions: No Action Furosemide [Lasix] 40 mg PO BID #60 tablet Gabapentin 800 mg PO TID #20 tab Clopidogrel Bisulfate [Plavix] 75 mg PO DAILY #10 tab Atenolol [Tenormin] 100 mg PO BID #20 tab Aspirin EC [Ecotrin Low Dose] 81 mg PO DAILY Albuterol Inhaler [Ventolin Hfa Inhaler] 2 puff INHALATION RT-Q6H PRN PRN Reason: Shortness Of Breath Insulin Detemir (Levemir) [Levemir] 30 unit SQ HS INSULIN ASPART (NovoLOG) [NovoLOG (formulary)] See Protocol SQ AC-TID Discharge Medication List Furosemide [Lasix] 40 mg PO BID #60 tablet 04/09/19 [Rx] Atenolol [Tenormin] 100 mg PO BID #20 tab 04/17/19 [Rx] Clopidogrel Bisulfate [Plavix] 75 mg PO DAILY #10 tab 04/17/19 [Rx] Gabapentin 800 mg PO TID #20 tab 04/17/19 [Rx] Albuterol Inhaler [Ventolin Hfa Inhaler] 2 puff INHALATION RT-Q6H PRN 05/13/19 [History] Aspirin EC [Ecotrin Low Dose] 81 mg PO DAILY 05/13/19 [History] INSULIN ASPART (NovoLOG) [NovoLOG (formulary)] See Protocol SQ AC-TID 05/13/19 [History] Insulin Detemir (Levemir) [Levemir] 30 unit SQ HS 05/13/19 [History] Follow up Appointment(s)/Referral(s): None,Stated [Primary Care Provider] - 1-2 days Patient Instructions/Handouts: Fall Prevention (ED) Activity/Diet/Wound Care/Special Instructions: Patient will be admitted Discharge Disposition: Left Against Medical Advice
== END 2019-05-17 15:10 | disposition left against medical advice (07) | DRG 292 ==
LOC: EC 10:33 → 3NMEDONC 13:23 → OBSVTOIN 05-14 10:15 → 3NMEDONC 05-16 16:28
PROVIDERS: ADMIT Internal Medicine; ATTEND Internal Medicine
DX: I11.0 Hypertensive heart disease with heart failure (principal); J44.1 Chronic obstructive pulmonary disease with (acute) exacerbation; K56.7 Ileus, unspecified; S27.329A Contusion of lung, unspecified, initial encounter; I50.23 Acute on chronic systolic (congestive) heart failure; E11.42 Type 2 diabetes mellitus with diabetic polyneuropathy; E11.65 Type 2 diabetes mellitus with hyperglycemia; E78.5 Hyperlipidemia, unspecified; F17.200 Nicotine dependence, unspecified, uncomplicated; F41.9 Anxiety disorder, unspecified; I25.10 Atherosclerotic heart disease of native coronary artery without angina pectoris; I25.2 Old myocardial infarction; I25.5 Ischemic cardiomyopathy; B19.20 Unspecified viral hepatitis C without hepatic coma; G89.29 Other chronic pain; M54.5 Low back pain; F32.9 Major depressive disorder, single episode, unspecified; R07.89 Other chest pain; Z79.02 Long term (current) use of antithrombotics/antiplatelets; Z79.4 Long term (current) use of insulin; Z79.82 Long term (current) use of aspirin; Z79.899 Other long term (current) drug therapy; Z86.73 Personal history of transient ischemic attack (TIA), and cerebral infarction without residual deficits; Z95.5 Presence of coronary angioplasty implant and graft; Z91.14 Patient's other noncompliance with medication regimen; Z59.0 Homelessness; Z88.0 Allergy status to penicillin; Z90.49 Acquired absence of other specified parts of digestive tract; Z82.49 Family history of ischemic heart disease and other diseases of the circulatory system; Z83.3 Family history of diabetes mellitus; W19.XXXA Unspecified fall, initial encounter
CPT/HCPCS: 36415; 71045; 71046; 71260; 74160; 80048; 80053; 80061; 83036; 83880; 84443; 84484; 85025; 85027; 85379; 93005; 94640; 96374; 96375; 96376; 99285

== ENCOUNTER 2019-05-17 16:44 | Emergency (ER) | payer OTHER ==
[2019-05-17 16:52] VITALS: BP 96/63; PULSE 70; RESP 18; TEMP 97.6
--- NOTE | 2019-05-17 17:48 | ED ---
General Adult HPI - General Chief complaint: Weakness Stated complaint: Weak/left pt floor an hour ago/AMA Time Seen by Provider: 05/17/19 16:45 Source: patient, RN notes reviewed, old records reviewed Mode of arrival: ambulatory Limitations: no limitations - History of Present Illness Initial comments: This is a 59-year-old male who was coming into the emergency department complaining that he left the hospital AMA earlier today. Patient states he was post to go to a rehab facility but he got irritated and he walked out. Patient states he got outside he realized he can only walk a few feet and was very unstable and too weak to continue so he thought he needed to go to rehab at this point so he came back in. Patient states he is not having any difficulty breathing currently denies any chest pain or palpitations. Patient denies headache patient denies numbness weakness. Patient has lightheadedness or dizziness. Patient denies any abdominal pain patient denies nausea vomiting diarrhea. Patient denies any new injury. Patient states she has residual deficit from a previous stroke on the left side particularly the left leg. - Related Data Home Medications Medication Instructions Recorded Confirmed Albuterol Inhaler [Ventolin Hfa 2 puff INHALATION RT-Q6H PRN 05/13/19 05/13/19 Inhaler] Aspirin EC [Ecotrin Low Dose] 81 mg PO DAILY 05/13/19 05/13/19 INSULIN ASPART (NovoLOG) [NovoLOG See Protocol SQ AC-TID 05/13/19 05/13/19 (formulary)] Insulin Detemir (Levemir) [Levemir] 30 unit SQ HS 05/13/19 05/13/19 Previous Rx's Medication Instructions Recorded Furosemide [Lasix] 40 mg PO BID #60 tablet 04/09/19 Atenolol [Tenormin] 100 mg PO BID #20 tab 04/17/19 Clopidogrel Bisulfate [Plavix] 75 mg PO DAILY #10 tab 04/17/19 Gabapentin 800 mg PO TID #20 tab 04/17/19 Allergies Allergy/AdvReac Type Severity Reaction Status Date / Time Penicillins Allergy Unknown Verified 05/17/19 16:47 Childhood Review of Systems ROS Statement: Those systems with pertinent positive or pertinent negative responses have been documented in the HPI. ROS Other: All systems not noted in ROS Statement are negative. Past Medical History Past Medical History: Coronary Artery Disease (CAD), Heart Failure, COPD, CVA/TIA, Diabetes Mellitus, Hyperlipidemia, Hypertension, Myocardial Infarction ([place]) Additional Past Medical History / Comment(s): Pt recently admitted to [facility] on 03/27/19 CHF. Other Hx: Ischemic cardiomyopathy with EF in September 2018 at 35%, PVCs, chronic low back pain d/t vertebral fractures years ago as well as cervical pinched nerves, DDD, IDDM type II, neuropathy bilateral hands/legs and feet, hep c, Stroke 04/17, Hep C Last Myocardial Infarction Date:: October 2018 History of Any Multi-Drug Resistant Organisms: None Reported Past Surgical History: Cholecystectomy, Heart Catheterization, Heart Ca theterization With Stent Additional Past Surgical History / Comment(s): R heel I&D, colonoscopy. Past Anesthesia/Blood Transfusion Reactions: No Reported Reaction Date of Last Stent Placement:: 2011 Past Psychological History: Anxiety, Bipolar, Depression Smoking Status: Former smoker Past Alcohol Use History: None Reported Past Drug Use History: Heroin, Marijuana - Past Family History Mother Family Medical History: Cancer Father Family Medical History: Coronary Artery Disease (CAD), Diabetes Mellitus, Hypertension General Exam - General Exam Comments Initial Comments: GENERAL: Patient is well-developed and well-nourished. Patient is nontoxic and well- hydrated and is in no acute distress. ENT: Neck is soft and supple. No significant lymphadenopathy is noted. Oropharynx is clear. Moist mucous membranes. Neck has full range of motion without eliciting any pain. EYES: The sclera were anicteric and conjunctiva were pink and moist. Extraocular movements were intact and pupils were equal round and reactive to light. Eyelids were unremarkable. PULMONARY: Unlabored respirations. Good breath sounds bilaterally. No audible rales rhonchi or wheezing was noted. CARDIOVASCULAR: There is a regular rate and rhythm without any murmurs gallops or rubs. ABDOMEN: Soft and nontender with normal bowel sounds. No palpable organomegaly was noted. There is no palpable pulsatile mass. SKIN: Skin is clear with no lesions or rashes and otherwise unremarkable. NEUROLOGIC: Patient is alert and oriented x3. Cranial nerves II through XII are grossly intact. Patient has weakness in the left leg which she states is residual from a stroke he had recently. Normal speech, volume and content. Symmetrical smile. MUSCULOSKELETAL: Normal extremities with adequate strength and full range of motion. No lower extremity swelling or edema. No calf tenderness. LYMPHATICS: No significant lymphadenopathy is noted PSYCHIATRIC: Normal psychiatric evaluation. Limitations: no limitations Course Vital Signs 05/17/19 16:47 Temperature 97.6 F Pulse Rate 70 Respiratory 18 Rate Blood Pressure 96/63 O2 Sat by Pulse 99 Oximetry Medical Decision Making - Medical Decision Making I will back in the room to talk to the patient a second time and he had already packed up and left Disposition Clinical Impression: Generalized weakness Disposition: Left Against Medical Advice Referrals: None,Stated [Primary Care Provider] - 1-2 days Time of Disposition: 18:27
--- NOTE | 2019-05-18 06:27 | P.HPIM ---
History of Present Illness This is a combined H&P and discharge summary Patient is admitted to the hospital because he left AMA earlier during the day and he changed his mind and came back to the emergency room for difficulty walking that might need rehab . I discussed the case with Dr. White and accepted the admission however it looks like the patient left AMA again before I have a chance to see the patient already talked to him Past Medical History Past Medical History: Coronary Artery Disease (CAD), Heart Failure, COPD, CVA/TIA, Diabetes Mellitus, Hyperlipidemia, Hypertension, Myocardial Infarction ([place]) Additional Past Medical History / Comment(s): Pt recently admitted to [facility] on CHF. Other Hx: Ischemic cardiomyopathy with EF in September 2018 at 35%, PVCs, chronic low back pain d/t vertebral fractures years ago as well as cervical pinched nerves, DDD, IDDM type II, neuropathy bilateral hands/legs and feet, hep c, Stroke 04/17, Hep C Last Myocardial Infarction Date:: October 2018 History of Any Multi-Drug Resistant Organisms: None Reported Past Surgical History: Cholecystectomy, Heart Catheterization, Heart Catheterization With Stent Additional Past Surgical History / Comment(s): R heel I&D, colonoscopy. Past Anesthesia/Blood Transfusion Reactions: No Reported Reaction Date of Last Stent Placement:: 2011 Past Psychological History: Anxiety, Bipolar, Depression Smoking Status: Former smoker Past Alcohol Use History: None Reported Past Drug Use History: Heroin, Marijuana - Past Family History Mother Family Medical History: Cancer Father Family Medical History: Coronary Artery Disease (CAD), Diabetes Mellitus, Hypertension Medications and Allergies Home Medications Medication Instructions Recorded Confirmed Type Furosemide [Lasix] 40 mg PO BID #60 tablet 04/09/19 05/13/19 Rx Atenolol [Tenormin] 100 mg PO BID #20 tab 04/17/19 05/13/19 Rx Clopidogrel Bisulfate [Plavix] 75 mg PO DAILY #10 tab 04/17/19 05/13/19 Rx Gabapentin 800 mg PO TID #20 tab 04/17/19 05/13/19 Rx Albuterol Inhaler [Ventolin Hfa 2 puff INHALATION RT-Q6H PRN 05/13/19 05/13/19 History Inhaler] Aspirin EC [Ecotrin Low Dose] 81 mg PO DAILY 05/13/19 05/13/19 History INSULIN ASPART (NovoLOG) [NovoLOG See Protocol SQ AC-TID 05/13/19 05/13/19 History (formulary)] Insulin Detemir (Levemir) [Levemir] 30 unit SQ HS 05/13/19 05/13/19 History Allergies Allergy/AdvReac Type Severity Reaction Status Date / Time Penicillins Allergy Unknown Verified 05/17/19 16:47 Childhood Physical Exam Vitals: Vital Signs Temp Pulse Resp BP Pulse Ox 05/17/19 16:47 97.6 F 70 18 96/63 99 Intake and Output 05/17/19 05/17/19 05/18/19 14:59 22:59 06:59 Other: Weight 68.039 kg
== END 2019-05-17 18:15 | disposition left against medical advice (07) ==
LOC: EC 16:44
DX: R53.1 Weakness (principal); I25.10 Atherosclerotic heart disease of native coronary artery without angina pectoris; J44.9 Chronic obstructive pulmonary disease, unspecified; I25.2 Old myocardial infarction; E11.40 Type 2 diabetes mellitus with diabetic neuropathy, unspecified; Z86.73 Personal history of transient ischemic attack (TIA), and cerebral infarction without residual deficits; Z95.818 Presence of other cardiac implants and grafts; Z95.5 Presence of coronary angioplasty implant and graft; Z87.891 Personal history of nicotine dependence; Z79.82 Long term (current) use of aspirin; Z79.4 Long term (current) use of insulin; Z79.899 Other long term (current) drug therapy; Z88.0 Allergy status to penicillin
CPT/HCPCS: 99284

== ENCOUNTER 2019-06-17 05:12 | Inpatient (IN) | payer OTHER ==
[2019-06-17] MEDS ORDERED: ALBUTEROL NEBULIZED 2.5 MG/3 ML INHALATION STA (05:19)
[2019-06-17] MEDS ORDERED: IPRATROPIUM 0.5 MG/2.5 ML NEBU INHALATION STA (05:19)
[2019-06-17] MEDS ORDERED: methylPREDNISolone SOD SUCCI 125 MG/2 ML VIAL IV STA (05:19)
--- NOTE | 2019-06-17 05:28 | ED ---
General Adult HPI - General Chief complaint: Chest Pain Stated complaint: Chest Pain Time Seen by Provider: 06/17/19 05:17 Source: patient, EMS, RN notes reviewed Mode of arrival: EMS Limitations: no limitations - History of Present Illness Initial comments: 59-year-old male presents for evaluation of cough, dyspnea, chest pain. Patient states she's had a productive cough and dyspnea for the past several days. He admits to central chest pain worse with cough, nonradiating. He also complains of bilateral lower extremity pain and swelling. He has a history of COPD and CHF. He is currently smoking. He is currently using IV heroin and admits to using heroin within the past 24 hours. Denies abdominal pain nausea vomiting. no fever or chills. - Related Data Home Medications Medication Instructions Recorded Confirmed Albuterol Inhaler [Ventolin Hfa 2 puff INHALATION RT-Q6H PRN 05/13/19 05/13/19 Inhaler] Aspirin EC [Ecotrin Low Dose] 81 mg PO DAILY 05/13/19 05/13/19 INSULIN ASPART (NovoLOG) [NovoLOG See Protocol SQ AC-TID 05/13/19 05/13/19 (formulary)] Insulin Detemir (Levemir) [Levemir] 30 unit SQ HS 05/13/19 05/13/19 Previous Rx's Medication Instructions Recorded Furosemide [Lasix] 40 mg PO BID #60 tablet 04/09/19 Atenolol [Tenormin] 100 mg PO BID #20 tab 04/17/19 Clopidogrel Bisulfate [Plavix] 75 mg PO DAILY #10 tab 04/17/19 Gabapentin 800 mg PO TID #20 tab 04/17/19 Allergies Allergy/AdvReac Type Severity Reaction Status Date / Time Penicillins Allergy Unknown Verified 06/17/19 05:20 Childhood Review of Systems ROS Statement: Those systems with pertinent positive or pertinent negative responses have been documented in the HPI. ROS Other: All systems not noted in ROS Statement are negative. Past Medical History Past Medical History: Coronary Artery Disease (CAD), Heart Failure, COPD, CVA/TIA, Diabetes Mellitus, Hyperlipidemia, Hypertension, Myocardial Infarction (CT) Additional Past Medical History / Comment(s): Pt recently admitted to [facility] on 03/27/19 CHF. Other Hx: Ischemic cardiomyopathy with EF in September 2018 at 35%, PVCs, chronic low back pain d/t vertebral fractures years ago as well as cervical pinched nerves, DDD, IDDM type II, neuropathy bilateral hands/legs and feet, hep c, Stroke 04/17, Hep C Last Myocardial Infarction Date:: October 2018 History of Any Multi-Drug Resistant Organisms: None Reported Past Surgical History: Cholecystectomy, Heart Catheterization, Heart Catheterization With Stent Additional Past Surgical History / Comment(s): R heel I&D, colonoscopy. Past Anesthesia/Blood Transfusion Reactions: No Reported Reaction Date of Last Stent Placement:: 2011 Past Psychological History: Anxiety, Bipolar, Depression Smoking Status: Current some day smoker Past Alcohol Use History: None Reported Past Drug Use History: Heroin, Marijuana - Past Family History Mother Family Medical History: Cancer Father Family Medical History: Coronary Artery Disease (CAD), Diabetes Mellitus, Hypertension General Exam Limitations: no limitations General appearance: alert, in no apparent distress Head exam: Present: atraumatic, normocephalic Eye exam: Present: normal appearance, PERRL ENT exam: Present: other (poor Dentition) Neck exam: Present: normal inspection Respiratory exam: Present: wheezes, rales, decreased breath sounds. Absent: respiratory distress Cardiovascular Exam: Present: regular rate, normal rhythm GI/Abdominal exam: Present: soft. Absent: distended, tenderness, guarding Extremities exam: Present: pedal edema, other (multiple superficial skin lesions) Neurological exam: Present: alert, oriented X3, CN II-XII intact. Absent: motor sensory deficit Skin exam: Present: warm. Absent: cyanosis, diaphoretic Course Vital Signs 06/17/19 06/17/19 06/17/19 05:14 05:25 05:44 Temperature 98.9 F Pulse Rate 96 87 Pulse Rate [ 86 Tip Puncher ] Respiratory 20 Rate Blood Pressure 143/99 O2 Sat by Pulse 99 Oximetry 06/17/19 06/17/19 06/17/19 05:57 06:09 06:47 Temperature Pulse Rate 84 88 87 Pulse Rate [ Tip Puncher ] Respiratory 20 20 Rate Blood Pressure 144/98 151/100 O2 Sat by Pulse 97 100 Oximetry EKG Findings - EKG Comments: EKG Findings:: sinus rhythm with occasional PVC, left atrial enlargement, rate of 92, MD interval 162, QRS duration 82, QTC 460, no ST segment elevation T-wave inversion in the lateral precordium Medical Decision Making - Medical Decision Making 59-year-old male presenting with cough, dyspnea. Patient has both squeezing in rales throughout the lung barr, he has 2+ peripheral edema. History of heart failure and COPD, current smoker. Laboratory testing reveals normal white blood cell count, stable hemoglobin, mild hyponatremia 132. Chest x-ray shows pulmona ry edema and bilateral effusions. Troponin is negative. BNP is significantly elevated at 13,000. She's given aspirin, IV Lasix in the emergency department as well as steroids and albuterol for treatment of COPD. Diagnosis: COPD and congestive heart failure exacerbation. - Lab Data Result diagrams: 06/17/19 05:58 06/17/19 05:58 Lab Results 06/17/19 06/17/19 06/17/19 Range/Units 05:20 05:58 05:58 WBC 5.5 (3.8-10.6) k/uL RBC 4.07 L (4.30-5.90) m/uL Hgb 12.4 L (13.0-17.5) gm/dL Hct 39.3 (39.0-53.0) % MCV 96.5 (80.0-100.0) fL MCH 30.6 (25.0-35.0) pg MCHC 31.7 (31.0-37.0) g/dL RDW 13.6 (11.5-15.5) % Plt Count 131 L (150-450) k/uL Neutrophils % 74 % Lymphocytes % 15 % Monocytes % 7 % Eosinophils % 1 % Basophils % 1 % Neutrophils # 4.1 (1.3-7.7) k/uL Lymphocytes # 0.8 L (1.0-4.8) k/uL Monocytes # 0.4 (0-1.0) k/uL Eosinophils # 0.1 (0-0.7) k/uL Basophils # 0.0 (0-0.2) k/uL PT (9.0-12.0) sec INR (<1.2) APTT (22.0-30.0) sec Sodium 132 L (137-145) mmol/L Potassium 4.1 (3.5-5.1) mmol/L Chloride 105 (98-107) mmol/L Carbon Dioxide 22 (22-30) mmol/L Anion Gap 5 mmol/L BUN 18 (9-20) mg/dL Creatinine 0.79 (0.66-1.25) mg/dL Est GFR (CKD-EPI)AfAm >90 (>60 ml/min/1.73 sqM) Est GFR (CKD-EPI)NonAf >90 (>60 ml/min/1.73 sqM) Glucose 189 H (74-99) mg/dL Plasma Lactic Acid [place] (0.7-2.0) mmol/L Calcium 8.1 L (8.4-10.2) mg/dL Magnesium 2.1 (1.6-2.3) mg/dL Total Bilirubin 1.1 (0.2-1.3) mg/dL AST 90 H (17-59) U/L ALT 74 H (4-49) U/L Alkaline Phosphatase 330 H (38-126) U/L Troponin I (0.000-0.034) ng/mL NT-Pro-B Natriuret Pep pg/mL Total Protein 6.0 L (6.3-8.2) g/dL Albumin 2.9 L (3.5-5.0) g/dL Influenza Type A RNA Not Detected (Not Detectd) Influenza Type B (PCR) Not Detected (Not Detectd) 06/17/19 06/17/19 06/17/19 Range/Units 05:58 05:58 05:58 WBC (3.8-10.6) k/uL RBC (4.30-5.90) m/uL Hgb (13.0-17.5) gm/dL Hct (39.0-53.0) % MCV (80.0-100.0) fL MCH (25.0-35.0) pg MCHC (31.0-37.0) g/dL RDW (11.5-15.5) % Plt Count (150-450) k/uL Neutrophils % % Lymphocytes % % Monocytes % % Eosinophils % % Basophils % % Neutrophils # (1.3-7.7) k/uL Lymphocytes # (1.0-4.8) k/uL Monocytes # (0-1.0) k/uL Eosinophils # (0-0.7) k/uL Basophils # (0-0.2) k/uL PT 12.1 H (9.0-12.0) sec INR 1.2 H (<1.2) APTT 26.6 (22.0-30.0) sec Sodium (137-145) mmol/L Potassium (3.5-5.1) mmol/L Chloride (98-107) mmol/L Carbon Dioxide (22-30) mmol/L Anion Gap mmol/L BUN (9-20) mg/dL Creatinine (0.66-1.25) mg/dL Est GFR (CKD-EPI)AfAm (>60 ml/min/1.73 sqM) Est GFR (CKD-EPI)NonAf (>60 ml/min/1.73 sqM) Glucose (74-99) mg/dL Plasma Lactic Acid [place] 1.6 (0.7-2.0) mmol/L Calcium (8.4-10.2) mg/dL Magnesium (1.6-2.3) mg/dL Total Bilirubin (0.2-1.3) mg/dL AST (17-59) U/L ALT (4-49) U/L Alkaline Phosphatase (38-126) U/L Troponin I (0.000-0.034) ng/mL NT-Pro-B Natriuret Pep 37794 pg/mL Total Protein (6.3-8.2) g/dL Albumin (3.5-5.0) g/dL Influenza Type A RNA (Not Detectd) Influenza Type B (PCR) (Not Detectd) 06/17/19 Range/Units 05:58 WBC (3.8-10.6) k/uL RBC (4.30-5.90) m/uL Hgb (13.0-17.5) gm/dL Hct (39.0-53.0) % MCV (80.0-100.0) fL MCH (25.0-35.0) pg MCHC (31.0-37.0) g/dL RDW (11.5-15.5) % Plt Count (150-450) k/uL Neutrophils % % Lymphocytes % % Monocytes % % Eosinophils % % Basophils % % Neutrophils # (1.3-7.7) k/uL Lymphocytes # (1.0-4.8) k/uL Monocytes # (0-1.0) k/uL Eosinophils # (0-0.7) k/uL Basophils # (0-0.2) k/uL PT (9.0-12.0) sec INR (<1.2) APTT (22.0-30.0) sec Sodium (137-145) mmol/L Potassium (3.5-5.1) mmol/L Chloride (98-107) mmol/L Carbon Dioxide (22-30) mmol/L Anion Gap mmol/L BUN (9-20) mg/dL Creatinine (0.66-1.25) mg/dL Est GFR (CKD-EPI)AfAm (>60 ml/min/1.73 sqM) Est GFR (CKD-EPI)NonAf (>60 ml/min/1.73 sqM) Glucose (74-99) mg/dL Plasma Lactic Acid [place] (0.7-2.0) mmol/L Calcium (8.4-10.2) mg/dL Magnesium (1.6-2.3) mg/dL Total Bilirubin (0.2-1.3) mg/dL AST (17-59) U/L ALT (4-49) U/L Alkaline Phosphatase (38-126) U/L Troponin I <0.012 (0.000-0.034) ng/mL NT-Pro-B Natriuret Pep pg/mL Total Protein (6.3-8.2) g/dL Albumin (3.5-5.0) g/dL Influenza Type A RNA (Not Detectd) Influenza Type B (PCR) (Not Detectd) Disposition Clinical Impression: Congestive heart failure, Acute exacerbation of chronic obstructive airways disease Disposition: ADMITTED IP TO THIS HOSP Condition: Stable Is patient prescribed a controlled substance at d/c from ED?: No Referrals: None,Stated [Primary Care Provider] - 1-2 days Decision to Admit Reason: Admit from EC Decision Date: 06/17/19 Decision Time: 06:54
[2019-06-17 06:23] LABS: Basophils % (A) 1 %; Eosinophils # (A) 0.1 k/uL (0-0.7); Eosinophils % (A) 1 %; HCT 39.3 % (39.0-53.0); HGB 12.4 gm/dL (13.0-17.5); Lymphocytes # (A) 0.8 k/uL (1.0-4.8); Lymphocytes % (A) 15 %; MCH 30.6 pg (25.0-35.0); MCHC 31.7 g/dL (31.0-37.0); MCV 96.5 fL (80.0-100.0); Mean Platelet Volume 9.1; Monocytes # (A) 0.4 k/uL (0-1.0); Monocytes % (A) 7 %; Neutrophils # (A) 4.1 k/uL (1.3-7.7); Neutrophils % (A) 74 %; Platelet Count 131 k/uL (150-450); RBC 4.07 m/uL (4.30-5.90); RDW 13.6 % (11.5-15.5); WBC 5.5 k/uL (3.8-10.6)
[2019-06-17 06:27] LABS: INR 1.2 (<1.2); Partial Thromboplastin Time 26.6 sec (22.0-30.0); Prothrombin Time 12.1 sec (9.0-12.0)
[2019-06-17 06:30] LABS: ALT 74 U/L (4-49); AST 90 U/L (17-59); African American GFR (CKD) >90 (>60 ml/min/1.73 sqM); Albumin 2.9 g/dL (3.5-5.0); Alkaline Phosphatase 330 U/L (38-126); Anion Gap 5 mmol/L; Blood Urea Nitrogen 18 mg/dL (9-20); Calcium 8.1 mg/dL (8.4-10.2); Carbon Dioxide 22 mmol/L (22-30); Chloride 105 mmol/L (98-107); Glucose 189 mg/dL (74-99); Magnesium 2.1 mg/dL (1.6-2.3); Non-African American GFR(CKD) >90 (>60 ml/min/1.73 sqM); Potassium 4.1 mmol/L (3.5-5.1); Sodium 132 mmol/L (137-145); Total Bilirubin 1.1 mg/dL (0.2-1.3)
--- NOTE | 2019-06-17 06:35 | XR ---
EXAM: XR Chest, 2 Views CLINICAL HISTORY: ITS.REASON XR Reason: difficulty breathing TECHNIQUE: Frontal and lateral views of the chest. COMPARISON: 05/17/19 IMPRESSION: Cardiomegaly. Mild vascular congestion. Trace bilateral pleural effusions.
[2019-06-17] MEDS ORDERED: FUROSEMIDE 10 MG/ML 4 ML VIAL IV STA (06:38)
[2019-06-17] MEDS ORDERED: ASPIRIN 325 MG TAB PO STA (06:38)
[2019-06-17] MEDS ORDERED: IPRATROPIUM-ALBUTEROL 3 ML NEB INHALATION PRN (06:50)
[2019-06-17] MEDS: IPRATROPIUM-ALBUTEROL 3 ML NEB INHALATION SCH ×4 (08:28→19:42)
[2019-06-17] MEDS ORDERED: AZITHROMYCIN 500 MG TAB PO SCH (09:00)
[2019-06-17] MEDS: LORazepam 2 MG/ML INJ IV PRN ×2 (11:51→20:37)
[2019-06-17 14:24] LABS: Glucose,Whole Blood 354 mg/dL (75-99)
[2019-06-17] MEDS ORDERED: NITROGLYCERIN SL TABS 0.4 MG TAB SUBLINGUAL PRN (14:26)
--- NOTE | 2019-06-17 14:42 | CT ---
EXAMINATION TYPE: CT brain wo con DATE OF EXAM: 06/17/2019 HISTORY: Altered mental status. CT DLP: 1099.4 mGycm. Automated Exposure Control for Dose Reduction was Utilized. TECHNIQUE: CT scan of the head is performed without contrast. COMPARISON: CT brain April 09, 2019 FINDINGS: There is no acute intracranial hemorrhage or midline shift identified. There is diffuse v entricular and sulcal prominence consistent with mild diffuse cerebral atrophy. There is low-attenua tion in the periventricular white matter consistent with mild to moderate chronic small vessel ischem ic change. Some vascular calcification distal internal carotid artery and left vertebral arteries is noted. There is mucosal thickening bilateral maxillary sinuses with some dependent fluid right maxil kan sinus. There is near complete opacification bilateral ethmoid sinuses with mild to moderate muco penelope thickening anteriorly in the bilateral sphenoid sinuses and posteriorly in the bilateral frontal sinuses. The globes are intact bilaterally. IMPRESSION: No acute intracranial hemorrhage or midline shift. There is mild diffuse age-related ce rebral atrophy and mild to moderate chronic small vessel ischemic change redemonstrated. No significa nt change from prior. Acute on chronic paranasal sinus disease thought present currently.
[2019-06-17] MEDS: methylPREDNISolone SOD SUCCI 125 MG/2 ML VIAL IV SCH ×3 (14:47→23:08)
[2019-06-17 16:45] LABS: Glucose,Whole Blood 376 mg/dL (75-99)
[2019-06-17] MEDS ORDERED: CARVEDILOL 12.5 MG TAB PO SCH (17:30)
[2019-06-17] MEDS: GABAPENTIN 400 MG CAP PO SCH ×2 (17:46→20:32)
[2019-06-17] MEDS: INSULIN ASPART (NovoLOG) 100 UNIT/ML VIAL SQ SCH ×2 (17:48→20:32)
[2019-06-17] MEDS: FUROSEMIDE 10 MG/ML 4 ML VIAL IV SCH (17:49)
[2019-06-17 20:09] LABS: Hemoglobin A1C 7.8 % (4.0-6.0)
[2019-06-17 20:30] LABS: Glucose,Whole Blood 345 mg/dL (75-99)
[2019-06-17] MEDS: MIRTAZAPINE 15 MG TAB PO SCH (20:32)
[2019-06-17] MEDS: INSULIN DETEMIR (LEVEMIR) 100 UNIT/ML SYR SQ SCH (20:32)
[2019-06-17] MEDS: ATENOLOL 50 MG TAB PO SCH (20:32)
[2019-06-17 20:46] LABS: Urine Alcohol Negative (Negative); Urine Barbiturate Negative (Negative); Urine Cocaine Positive (Negative); Urine Methadone Negative (Negative); Urine Opiates Negative (Negative); Urine Phencyclidine Negative (Negative)
[2019-06-18 03:22] LABS: Cholesterol 107 mg/dL (<200); HDL Cholesterol 27 mg/dL (40-60); LDL Cholesterol,Calculated 63 mg/dL (0-99); Triglycerides 86 mg/dL (<150)
[2019-06-18 06:10] LABS: Glucose,Whole Blood 154 mg/dL (75-99)
[2019-06-18] MEDS: FUROSEMIDE 10 MG/ML 4 ML VIAL IV SCH ×2 (06:20→17:40)
[2019-06-18] MEDS: INSULIN ASPART (NovoLOG) 100 UNIT/ML VIAL SQ SCH ×4 (06:20→20:31)
[2019-06-18] MEDS: methylPREDNISolone SOD SUCCI 125 MG/2 ML VIAL IV SCH (06:20)
[2019-06-18] MEDS: IPRATROPIUM-ALBUTEROL 3 ML NEB INHALATION SCH ×4 (07:58→19:28)
[2019-06-18] MEDS: LORazepam 2 MG/ML INJ IV PRN ×2 (09:15→17:43)
[2019-06-18] MEDS: CLOPIDOGREL 75 MG TAB PO SCH (09:15)
[2019-06-18] MEDS: GABAPENTIN 400 MG CAP PO SCH ×3 (09:15→20:28)
[2019-06-18] MEDS: ATENOLOL 50 MG TAB PO SCH (09:15)
[2019-06-18] MEDS: ASPIRIN 81 MG PO SCH (09:15)
--- NOTE | 2019-06-18 09:28 | P.HPIM ---
History of Present Illness H&P Date: 06/17/19 Chief Complaint: Shortness of air and chest pain The patient is a 59-year-old male with a past medical history of type 2 diabetes with peripheral neuropathy, history of [place] with subsequent ischemic cardiomyopathy, chronic systolic CHF, essential hypertension, hyperlipidemia, anxiety depression and bipolar disorder, opioid dependence, admitting to IV drug abuse who presents to the ER via EMS with chief complaint of shortness of breath cough and chest pain. Apparently the patient has been having worsening shortness of breath over the last 3 days with initially productive cough and worsening shortness of breath. The patient also reported intermittent bouts of left-sided chest pain over the last week, last night the patient noted significant in a 10 left-sided chest pressure with radiation into his left hand describing paresthesias tingling and cramps, he also reports increasing lower extremity swelling over the last 3 days and reports a 3+ pillow orthopnea Along with paroxysmal nocturnal dyspnea. The patient denies any facial droopm or slurred speech,but reported an episode of confusion yesterday where he went to the local convenience store but did not know. the patient reports that he was previously on [place] and Dilaudid that was being prescribed by Dr. Sharif but that he has been taking heroin since he was cut off from his opiate prescriptions due to failure to show up to his appointments, patient also has been cut off by Dr. Chicas from having any of his medications refilled secondary to testing positive for heroine, he reports that he's been out of all of his medications for several months. The patient plans to quit [place] for treatment of his opioid addiction and heroine drug use on discharge In the ER the patient had a comprehensive workup, chest x-ray showed cardiomegaly mild vascular congestion and trace pleural effusions, troponin was less than 0.012, 80 proBNP was 13 800, EKG showed sinus mechanism with PVCs without any suggestion of acute ischemia.influenza A and B was negative The patient was given a breathing treatment loading dose of steroids and Lasix and recommended for admission Past Medical History Past Medical History: Coronary Artery Disease (CAD), Heart Failure, COPD, CVA/TIA, Diabetes Mellitus, Hyperlipidemia, Hypertension, Myocardial Infarction ([place]) Additional Past Medical History / Comment(s): Pt recently admitted to [facility] on 03/27/19 CHF. Other Hx: Ischemic cardiomyopathy with EF in September 2018 at 35%, PVCs, chronic low back pain d/t vertebral fractures years ago as well as cervical pinched nerves, DDD, IDDM type II, neuropathy bilateral hands/legs and feet, hep c, Stroke 04/17, Hep C Last Myocardial Infarction Date:: October 2018 History of Any Multi-Drug Resistant Organisms: None Reported Past Surgical History: Cholecystectomy, Heart Catheterization, Heart Catheterization With Stent Additional Past Surgical History / Comment(s): R heel I&D, colonoscopy. Past Anesthesia/Blood Transfusion Reactions: No Reported Reaction Date of Last Stent Placement:: 2011 Past Psychological History: Anxiety, Bipolar, Depression Smoking Status: Current some day smoker Past Alcohol Use History: None Reported Past Drug Use History: Heroin, Marijuana - Past Family History Mother Family Medical History: Cancer Father Family Medical History: Coronary Artery Disease (CAD), Diabetes Mellitus, H ypertension Medications and Allergies Home Medications Medication Instructions Recorded Confirmed Type Gabapentin 800 mg PO TID #20 tab 04/17/19 06/17/19 Rx Carvedilol [Coreg] 25 mg PO BID 06/17/19 06/17/19 History Furosemide [Lasix] 40 mg PO BID 06/17/19 06/17/19 History Allergies Allergy/AdvReac Type Severity Reaction Status Date / Time Penicillins Allergy Unknown Verified 06/17/19 07:43 Childhood Physical Exam Vitals: Vital Signs Temp Pulse Pulse Resp BP Pulse Ox 06/17/19 08:38 92 06/17/19 08:36 94 19 149/99 100 06/17/19 08:28 90 06/17/19 06:47 87 20 151/100 100 06/17/19 06:09 88 20 144/98 97 06/17/19 05:57 84 06/17/19 05:44 87 06/17/19 05:25 86 06/17/19 05:14 98.9 F 96 20 143/99 99 Intake and Output 06/16/19 06/17/19 06/17/19 22:59 06:59 14:59 Other: Weight 68.039 kg Constitutional: No acute distress, conversant, pleasant Eyes: Anicteric sclerae, moist conjunctiva, no lid-lag, PERRLA ENMT: NC/AT,Oropharynx clear, no erythema, exudates Neck:Supple, FROM, no masses, or JVD, No carotid bruits; No thyromegaly Lungs: Clear to auscultation, Clear to percussion, Normal respiratory effort, no accessory muscle use Cardiovascular: Heart regular in rate and rhythm, No murmurs, gallops, or rubs no peripheral edema Abdominal: Soft Nontender, nom distended, no guarding, no rebound or rigidity, Normoactive bowel sounds No hepatomegaly, No splenomegaly, No palpable mass No abdominal wall hernia noted Skin: Normal temperature, tone, texture, turgor, No induration No subcutaneous nodules, No rash, lesions, No ulcers Extremities:No digital cyanosis No clubbing, Pedal pulses intact and symmetrical Radial pulses intact and symmetrical Normal gait and station, No calf tenderness Psychiatric: Alert and oriented to person, place and time, poor decision making Neuro: Muscles Strength 5/5 in all 4 extremities, Sensation to light touch grossly present throughout, Cranial nerves II-XII grossly intact. No focal sensory deficits Results CBC & Chem 7: 06/17/19 05:58 06/17/19 05:58 Labs: Abnormal Lab Results - Last 24 Hours (Table) 06/17/19 06/17/19 06/17/19 Range/Units 05:58 05:58 05:58 RBC 4.07 L (4.30-5.90) m/uL Hgb 12.4 L (13.0-17.5) gm/dL Plt Count 131 L (150-450) k/uL Lymphocytes # 0.8 L (1.0-4.8) k/uL PT 12.1 H (9.0-12.0) sec INR 1.2 H (<1.2) Sodium 132 L (137-145) mmol/L Glucose 189 H (74-99) mg/dL Calcium 8.1 L (8.4-10.2) mg/dL AST 90 H (17-59) U/L ALT 74 H (4-49) U/L Alkaline Phosphatase 330 H (38-126) U/L Total Protein 6.0 L (6.3-8.2) g/dL Albumin 2.9 L (3.5-5.0) g/dL Assessment and Plan Assessment: acute on chronic systolic CHF exacerbation Acute COPD exacerbation essential hypertension uncontrolled type 2 diabetes with peripheral neuropathy chest pain Opiate dependence History of IV heroin drug abuse Thrombocytopenia depression history of hepatitis C medical noncompliance Plan: The patient is placed in observation anticipate a less than 2 midnight stay with acute on chronic systolic CHF exacerbation, acute COPD exacerbation after presenting with dyspnea, cough and chest pain. Workup with initial troponin was negative at less than 0.012 EKG shows sinus been consistent without any acute suggestion of ischemia, we will trend troponins sequentially, lipid panel, order echocardiogram, consult cardiology. we'll order CT of his head as patient did have episode of confusion earlier today that has not resolved. the patient was started on routine chest pain orders start aspirin and also given a loading dose of Lasix for diuresis after his chest x-ray showed pulmonary vascular congestion [place] the [place] [id number]. the patient is also treated with albuterol Atrovent DuoNeb bronchodilator breathing treatments along with systemic steroids after being given IV Solu-Medrol. Patient's blood pres sures noted to be elevated we'll resume his atenolol, the patient is a been medically noncompliant due to being out of his medications as he currently does not have a PCP. The patient has opioid dependence and his IV heroin abuser, we'll continue to monitor for signs of withdrawal and treat his symptoms as they arise. I will check an A1c Accu-Cheks resume his basal insulin Levemir 30 units qs with correctional scale coverage. the patient endorses depressive symptomatology but denies any suicidal ideation and was seen previously by psych and started on Remeron and continue to monitor his clinical course CODE STATUS: Full code Discussed plan of care with: Patient anticipated discharge 1-[address]: Home or [place] Prophylaxis : SCDs and heparin
--- NOTE | 2019-06-18 11:18 | ECHOF ---
Referral Reason:chf MEASUREMENTS -------- HEIGHT: 170.2 cm WEIGHT: 65.8 kg BP: 143/93 RVIDd: 1.9 cm (< 3.3) IVSd: 1.3 cm (0.6 - 1.1) LVIDd: 5.0 cm (3.9 - 5.3) LVPWd: 1.3 cm (0.6 - 1.1) IVSs: 1.4 cm LVIDs: 4.5 cm LVPWs: 1.3 cm Ao Diam: 2.8 cm (2.0 - 3.7) AV Cusp: 1.4 cm (1.5 - 2.6) LA Diam: 3.2 cm (2.7 - 3.8) MV EXCURSION: 18.395 mm (> 18.000) MV EF SLOPE: 161 mm/s (70 - 150) EPSS: 1.2 cm MV E [place]: 0.88 m/s MV DecT: 201 ms MV A [place]: 0.21 m/s MV E/A Ratio: 4.22 AV maxP.80 mmHg AV meanP.56 mmHg RAP: 20.00 mmHg RVSP: 54.57 mmHg FINDINGS -------- Sinus rhythm. This was a technically adequate study. The left ventricular size is normal. There is mild concentric left ventricular hypertrophy. There is severe global hypokinesis of LV . Overall left ventricular systolic function is severely impair ed with, an EF < 20%. The right ventricle is normal in size. The left atrial size is normal. The right atrial size is normal. Aortic valve is trileaflet and is mildly thickened. There is mild aortic valve sclerosis. Peak/me an gradient across the Aortic Valve is 3.80mmHg / 2.56mmHg. Can not exclude possible calcifaction v s vegetation of aov. Aortic valve appears stenotic. Unable to get gradient based on very low EF. The mitral valve is normal. The mitral valve leaflets are mildly thickened. Mild mitral regurgita tion is present. The tricuspid valve appears structurally normal. Mild tricuspid regurgitation present. There is m oderate pulmonary hypertension. The right ventricular systolic pressure, as measured by Doppler, is 54.57mmHg. Trace/mild (physiologic) pulmonic regurgitation. The aortic root size is normal. The inferior vena cava is dilated with no significant inspiratory collapse which is consistent estima bean right atrial pressure of >20 mmHg. There is no pericardial effusion. CONCLUSIONS -------- 1. Sinus rhythm. 2. This was a technically adequate study. 3. The left ventricular size is normal. 4. There is mild concentric left ventricular hypertrophy. 5. There is severe global hypokinesis of LV . 6. Overall left ventricular systolic function is severely impaired with, an EF < 20%. 7. The right ventricle is normal in size. 8. The left atrial size is normal. 9. The right atrial size is normal. 10. Aortic valve is trileaflet and is mildly thickened. 11. There is mild aortic valve sclerosis. 12. Peak/mean gradient across the Aortic Valve is 3.80mmHg / 2.56mmHg. 13. Can not exclude possible calcifaction vs vegetation of aov. 14. Aortic valve appears stenotic. Unable to get gradient based on very low EF. 15. The mitral valve is normal. 16. The mitral valve leaflets are mildly thickened. 17. Mild mitral regurgitation is present. 18. The tricuspid valve appears structurally normal. 19. Mild tricuspid regurgitation present. 20. There is moderate pulmonary hypertension. 21. The right ventricular systolic pressure, as measured by Doppler, is 54.57mmHg. 22. Trace/mild (physiologic) pulmonic regurgitation. 23. The aortic root size is normal. 24. The inferior vena cava is dilated with no significant inspiratory collapse which is consistent es timated right atrial pressure of >20 mmHg. 25. There is no pericardial effusion. HOG SCRAPER: Latonia Garcia RDCS
[2019-06-18 11:23] LABS: African American GFR (CKD) >90 (>60 ml/min/1.73 sqM); Anion Gap 9 mmol/L; Blood Urea Nitrogen 27 mg/dL (9-20); Carbon Dioxide 25 mmol/L (22-30); Chloride 101 mmol/L (98-107); Glucose 140 mg/dL (74-99); Non-African American GFR(CKD) 85 (>60 ml/min/1.73 sqM); Potassium 4.5 mmol/L (3.5-5.1); Sodium 135 mmol/L (137-145)
[2019-06-18 11:39] LABS: Glucose,Whole Blood 167 mg/dL (75-99)
--- NOTE | 2019-06-18 13:29 | P.CRDCN ---
History of Present Illness Consult date: 06/18/19 Requesting physician: Isaias Winslow Consult reason: congestive heart failure Chief complaint: shortness of breath History of present illness: This is a 67-year-old gentleman who does not follow regularly in the office. Has a known history of cardiomyopathy with a known ejection fraction of 30-35% according to echocardiogram done in October of this year, hypertension, hyperlipidemia, diabetes, nicotine dependence, anxiety and depression, bipolar disorder, substance abuse including marijuana and heroin.he presents to the hospital on this occasion with symptoms of shortness of breath with associated chest discomfort. Patient has been having worsening shortness of breath over the past 3-4 days, started off as a productive cough and shortness of breath continued to worsen, he also had some pain in the left side of his chest that worsens when he took a deep breath or when he coughed.patient also noticed an increasing amount of fluid in his bilateral lower extremities, positive PND and orthopnea. Patient had been on Piffard and allotted as prescribed by Dr. arthur fernández, but this was discontinued so therefore the patient has been using here 1 cocaine and marijuana.chest x-ray on presentation here showed cardiomegaly with mild vascular congestion and a trace pleural effusions.his EKG showed a normal sinus rhythm with nonspecific ST-T wave changes.CAT scan of the brain did not reveal any acute intracranial hemorrhage or midline shift, there is mild diffuse age-related cerebral atrophy and mild to moderate chronic small vessel ischemic change redemonstrated.laboratory data was reviewed, white blood cell count 5.5, hemoglobin 12.4, platelet count 131. Sodium 135, potassium 4.5, BUN 27, creatinine 0.9. Blood glucose on arrival 345.hemoglobin A1c 7.8, plasma lactic acid 1.6, calcium 9.0, AST 90, ALT 74, alk phos 338.troponins are negative 3.BNP level 13,800. drug screen positive for amphetamines, cocaine, and cannabinoids.Blood pressure 144/90 with a heart rate in the 70s to 80s, 100% on room air.she was initiated on IV Lasix in the emergency room. Past Medical History Past Medical History: Coronary Artery Disease (CAD), Heart Failure, COPD, CVA/TIA, Diabetes Mellitus, Hyperlipidemia, Hypertension, Myocardial Infarction (NM) Additional Past Medical History / Comment(s): Pt recently admitted to [facility] on 03/27/19 CHF. Other Hx: Ischemic cardiomyopathy with EF in September 2018 at 35%, PVCs, chronic low back pain d/t vertebral fractures years ago as well as cervical pinched nerves, DDD, IDDM type II, neuropathy bilateral hands/legs and feet, hep c, Stroke 04/17, Hep C Last Myocardial Infarction Date:: October 2018 History of Any Multi-Drug Resistant Organisms: None Reported Past Surgical History: Cholecystectomy, Heart Catheterization, Heart Catheterization With Stent Additional Past Surgical History / Comment(s): R heel I&D, colonoscopy. Past Anesthesia/Blood Transfusion Reactions: No Reported Reaction Date of Last Stent Placement:: 2011 Past Psychological History: Anxiety, Bipolar, Depression Smoking Status: Current some day smoker Past Alcohol Use History: None Reported Past Drug Use History: Heroin, Marijuana - Past Family History Mother Family Medical History: Cancer Father Family Medical History: Coronary Artery Disease (CAD), Diabetes Mellitus, Hypertension Medications and Allergies Home Medications Medication Instructions Recorded Confirmed Type Gabapentin 800 mg PO TID #20 tab 04/17/19 06/17/19 Rx Carvedilol [Coreg] 25 mg PO BID 06/17/19 06/17/19 History Furosemide [Lasix] 40 mg PO BID 06/17/19 06/17/19 History Allergies Allergy/AdvReac Type Severity Reaction Status Date / Time Penicillins Allergy Unknown Verified 06/17/19 07:43 Childhood Physical Exam Vitals: Vital Signs Temp Pulse Pulse Resp BP BP Pulse Ox 06/18/19 12:06 64 06/18/19 08:08 82 06/18/19 08:00 96.8 F L 70 144/95 100 06/18/19 07:58 79 06/18/19 03:37 90 18 138/80 95 06/17/19 23:33 98.1 F 89 18 158/77 98 06/17/19 20:30 98.2 F 85 18 187/98 100 06/17/19 19:51 98 06/17/19 19:44 98 06/17/19 16:00 98.2 F 90 16 136/80 98 06/17/19 14:42 90 20 145/93 100 Intake and Output 06/17/19 06/18/19 06/18/19 22:59 06:59 14:59 Intake Total 200 Output Total 275 Balance -275 200 Intake: Oral 200 Output: Urine 275 Other: Voiding Method Urinal Urinal # Voids 1 Weight 65.9 kg PHYSICAL EXAMINATION: GENERAL: 88-year-old gentleman in no acute distress at the time of my examination, very sleepy HEENT: Head is atraumatic, normocephalic. Pupils equal, round. Sclera anicteric. Conjunctiva are clear. Mucous membranes of the mouth are moist. Neck is supple. There is elevated jugular venous pressure. No carotid bruit is heard. HEART EXAMINATION: Heart S1, S2 systolic murmur is heard. CHEST EXAMINATION: Lungs reveal scattered coarse rhonchi and wheezing throughout, diminished air entry to the bases. ABDOMEN: Soft, nontender. Bowel sounds are heard. Liver is enlarged and palpable EXTREMITIES: 2+ peripheral pulses with 2+ evidence of peripheral edema and no calf tenderness noted. NEUROLOGIC patient is awake, alert and oriented X2 Results 06/17/19 05:58 06/18/19 10:40 Cardiac Enzymes 06/17/19 06/17/19 Range/Units 15:10 21:15 Troponin I <0.012 <0.012 (0.000-0.034) ng/mL Lipids 06/17/19 Range/Units 05:58 Triglycerides 86 (<150) mg/dL Cholesterol 107 (<200) mg/dL HDL Cholesterol 27 L (40-60) mg/dL Comprehensive Metabolic Panel 06/18/19 Range/Units 10:40 Sodium 135 L (137-145) mmol/L Potassium 4.5 (3.5-5.1) mmol/L Chloride 101 (98-107) mmol/L Carbon Dioxide 25 (22-30) mmol/L BUN 27 H (9-20) mg/dL Creatinine 0.97 (0.66-1.25) mg/dL Glucose 140 H (74-99) mg/dL Calcium 9.0 (8.4-10.2) mg/dL Current Medications Generic Name Dose Route Start Last Admin Trade Name Freq PRN Reason Stop Dose Admin Acetaminophen 650 mg 06/17/19 14:26 Tylenol Tab PO Q4HR PRN Pain Albuterol/Ipratropium 3 ml 06/17/19 06:50 Duoneb 0.5 Mg-3 Mg/3 Ml Soln INHALATION RT-Q4H PRN Shortness Of Breath Or Wheezing Albuterol/Ipratropium 3 ml 06/17/19 08:00 06/18/19 12:07 Duoneb 0.5 Mg-3 Mg/3 Ml Soln INHALATION 3 ml RT-QID MIRLANDE Administration Aspirin 81 mg 06/18/19 09:00 06/18/19 09:15 Aspirin PO 81 mg DAILY MIRLANDE Administration Atenolol 100 mg 06/17/19 21:00 06/18/19 09:15 Tenormin PO 100 mg BID MIRLANDE Administration Clopidogrel Bisulfate 75 mg 06/18/19 09:00 06/18/19 09:15 Plavix PO 75 mg DAILY MIRLANDE Administration Furosemide 40 mg 06/17/19 18:00 06/18/19 06:20 Lasix IV 40 mg Q12H MIRLANDE Administration Gabapentin 800 mg 06/17/19 16:00 06/18/19 09:15 Neurontin PO 800 mg TID MIRLANDE Administration Insulin Aspart 0 unit 06/17/19 17:30 06/18/19 06:20 Novolog SQ 1 unit ACHS MIRLANDE Administration Protocol Insulin Detemir 30 unit 06/17/19 21:00 06/17/19 20:32 Levemir SQ 30 unit HS MIRLANDE Administration Lorazepam 1 mg 06/17/19 11:31 06/18/19 09:15 Ativan IV 1 mg Q6HR PRN Administration Anxiety Mirtazapine 15 mg 06/17/19 21:00 06/17/19 20:32 Remeron PO 15 mg HS MIRLANDE Administration Nitroglycerin 0.4 mg 06/17/19 14:26 Nitrostat SUBLINGUAL Q5M PRN Chest Pain Intake and Output 06/17/19 06/18/19 06/18/19 22:59 06:59 14:59 Intake Total 200 Output Total 275 Balance -275 200 Intake: Oral 200 Output: Urine 275 Other: Voiding Method Urinal Urinal # Voids 1 Weight 65.9 kg 06/17/19 05:58 06/18/19 10:40 EKG Interpretations (text) EKG shows a normal sinus rhythm with occasional PVC, nonspecific ST-T wave changes Assessment and Plan Plan: Assessment and plan #1 systolic congestive heart failure acute on chronic #2 ischemic cardiomyopathy with documented ejection fraction of 35% by echo performed in September, echo performed this admission revealed an ejection fraction of less than 20%, initially the documented echo suggested a possible calcification versus vegetation of the aortic valve, the echo was reviewed by Dr. VC Palafox who felt that the aortic valve was calcified, he did not feel that it was a vegetation. #3 coronary artery disease with prior stent placement #4 nicotine dependence #5 diabetes #6 hypertension #7 hyperlipidemia #8 COPD #9 noncompliance #10 drug screen positive for amphetamines, cocaine, and cannabis Plan We will continue with IV Lasix 40 mg every 12 hourly along with aspirin, discontinue the atenolol and change the patient over to Coreg,add Aldactone and CATHIE inhibitor to the patient's medication regime.monitor the intake and output and daily weights closely. DNP note has been reviewed, I agree with a documented findings and plan of care. Patient was seen and examined.
--- NOTE | 2019-06-18 14:20 | XR ---
EXAMINATION TYPE: XR chest 2V DATE OF EXAM: 06/18/2019 COMPARISON: 06/17/2019 HISTORY: Shortness of breath TECHNIQUE: Frontal and lateral views of the chest are obtained. FINDINGS: Scattered senescent parenchymal changes noted. Hyperinflation compatible with COPD. No evidence for infiltrate. No evidence for atelectasis. Opinion mild cardiomegaly with pulmonary venous congestion and improving curly B lines. Small amount of fluid within the fissures and a small amount of fluid seen on the lateral view posteriorly. Mediastinal structures are stable and grossly unremarkable. No evidence for hilar prominence. Degenerative changes dorsal spine. IMPRESSION: 1. Improving very mild features of CHF.
[2019-06-18] MEDS ORDERED: AZITHROMYCIN 500 MG TAB PO STA (15:43)
--- NOTE | 2019-06-18 15:46 | P.PN ---
Subjective Progress Note Date: 06/18/19 Patient seen and examined at bedside, extremely somnolent and difficult to arouse today, the patient reported he did not eat very much breakfast has been increasingly tired. Therapy chest x-ray showing improving very mild features of CHF. CT of the head indicating acute on chronic paranasal sinusitis, a diffuse age-related cerebral atrophy and mild to moderate chronic small vessel ischemic changes. The patient has previously left AMA but seems to be cooperating when awake. Of note his UDS tested positive for cannabinoids, methamphetamine and cocaine. Echocardiogram results are pending, no acute events overnight Objective - Vital Signs Vital signs: Vital Signs Temp 96.8 F L 06/18/19 08:00 Pulse 66 06/18/19 12:18 Resp 18 06/18/19 03:37 BP 144/95 06/18/19 08:00 Pulse Ox 100 06/18/19 08:00 Intake & Output 06/17/19 06/18/19 06/18/19 18:59 06:59 18:59 Intake Total 200 100 Output Total 275 Balance -75 100 Weight 68.039 kg 65.9 kg Intake: Oral 200 100 Output: Urine 275 Other: Voiding Method Urinal Urinal # Voids 1 - Exam Constitutional: No acute distress, conversant, pleasant Eyes: Anicteric sclerae, moist conjunctiva, no lid-lag, PERRLA ENMT: NC/AT,Oropharynx clear, no erythema, exudates Neck:Supple, FROM, no masses, or JVD, No carotid bruits; No thyromegaly Lungs: Clear to auscultation, Clear to percussion, Normal respiratory effort, no accessory muscle use Cardiovascular: Heart regular in rate and rhythm, No murmurs, gallops, or rubs no peripheral edema Abdominal: Soft Nontender, nom distended, no guarding, no rebound or rigidity, Normoactive bowel sounds No hepatomegaly, No splenomegaly, No palpable mass No abdominal wall hernia noted Skin: Normal temperature, tone, texture, turgor, No induration No subcutaneous nodules, No rash, lesions, No ulcers Extremities:No digital cyanosis No clubbing, Pedal pulses intact and symmetrical Radial pulses intact and symmetrical , No calf tenderness Psychiatric: Somnolent but arousable. Falls asleep quickly, place and time, poor decision making Neuro: Muscles Strength 5/5 in all 4 extremities, Sensation to light touch grossly present throughout, Cranial nerves II-XII grossly intact. No focal sensory deficits - Labs CBC & Chem 7: 06/17/19 05:58 06/18/19 10:40 Labs: Abnormal Lab Results - Last 24 Hours (Table) 06/17/19 06/17/19 06/17/19 Range/Units 05:58 05:58 14:10 Sodium (137-145) mmol/L BUN (9-20) mg/dL Glucose (74-99) mg/dL POC Glucose (mg/dL) (75-99) mg/dL Hemoglobin A1c 7.8 H (4.0-6.0) % HDL Cholesterol 27 L (40-60) mg/dL Ur Amphetamine Screen Positive H (Negative) ng/mL Urine Cocaine Screen Positive H (Negative) ng/mL U Cannabinoids Screen Positive H (Negative) ng/mL 06/17/19 06/17/19 06/18/19 Range/Units 16:44 20:28 06:09 Sodium (137-145) mmol/L BUN (9-20) mg/dL Glucose (74-99) mg/dL POC Glucose (mg/dL) 376 H 345 H 154 H (75-99) mg/dL Hemoglobin A1c (4.0-6.0) % HDL Cholesterol (40-60) mg/dL Ur Amphetamine Screen (Negative) ng/mL Urine Cocaine Screen (Negative) ng/mL U Cannabinoids Screen (Negative) ng/mL 06/18/19 06/18/19 Range/Units 10:40 11:38 Sodium 135 L (137-145) mmol/L BUN 27 H (9-20) mg/dL Glucose 140 H (74-99) mg/dL POC Glucose (mg/dL) 167 H (75-99) mg/dL Hemoglobin A1c (4.0-6.0) % HDL Cholesterol (40-60) mg/dL Ur Amphetamine Screen (Negative) ng/mL Urine Cocaine Screen (Negative) ng/mL U Cannabinoids Screen (Negative) ng/mL Microbiology - Last 24 Hours (Table) 06/17/19 05:58 Blood Culture - Preliminary Blood No Growth after 24 hours Assessment and Plan Assessment: acute on chronic systolic CHF exacerbation * Chest x-ray showing improved CHF * Echocardiogram showing severely diminished ejection fraction of less than 20%, with a likely calcified aortic valve (on review by Dr. Palafox) * Continue diuresis with Lasix 40 mg IV BID * Continued on atenolol * Cardiology consultation pending essential hypertension uncontrolled * Blood pressure still elevated type 2 diabetes with peripheral neuropathy * A1c approximately 7.8 * Continue insulin regimen with Levemir 30 units SQ QHS and correctional scale insulin coverage chest pain * Likely secondary to severe CHF superimposed on possible coronary vasospasm due to cocaine use * Cardiac troponins of been negative Metabolic encephalopathy * CT indicating moderate to severe chronic small versus ischemic disease and cerebral atrophy acute on chronic sinusitis, * Continue aspirin and Plavix Acute sinusitis * Initiate patient on a Z-Robert COPD * Appears stable without any acute exacerbation * Systemic steroids will be discontinued * Continue breathing treatments when necessary Opiate dependence * Continue when necessary Ativan for withdrawals Polysubstance drug abuse with cocaine and heroine/ cannabinoids and amphetamines * UDS positive for cannabinoids Thrombocytopenia Generalized weakness with gait instability * Consult physical and occupational therapy to evaluate and treat * Patient possibly will be requiring placement depression * Resume done Remeron we'll plan for psychiatry consult history of hepatitis C medical noncompliance Disposition * Given the patient's overall noncompliance ongoing polysubstance drug abuse and reported poor living conditions at home * APS was consulted apparently the patient does not have a guardian * We'll attempt placement if the patient is amenable and does not believe AMA during this hospitalization
[2019-06-18 16:55] LABS: Glucose,Whole Blood 158 mg/dL (75-99)
[2019-06-18] MEDS: CARVEDILOL 6.25 MG TAB PO SCH (17:39)
[2019-06-18] MEDS: SPIRONOLACTONE 25 MG TAB PO SCH (17:39)
[2019-06-18] MEDS: LISINOPRIL 10 MG TAB PO SCH (17:39)
[2019-06-18] MEDS: MIRTAZAPINE 15 MG TAB PO SCH (20:28)
[2019-06-18] MEDS: INSULIN DETEMIR (LEVEMIR) 100 UNIT/ML SYR SQ SCH (20:28)
[2019-06-18 20:29] LABS: Glucose,Whole Blood 178 mg/dL (75-99)
[2019-06-19] MEDS: LORazepam 2 MG/ML INJ IV PRN ×3 (00:54→22:30)
[2019-06-19] MEDS: ACETAMINOPHEN TAB 325 MG TAB PO PRN ×2 (00:55→20:10)
[2019-06-19] MEDS ORDERED: DEXTROSE 10 % IN WATER 250 ML IV ONE ×4 (03:43→12:09)
[2019-06-19 03:44] LABS: Glucose,Whole Blood 44 mg/dL (75-99)
[2019-06-19 04:02] LABS: Glucose,Whole Blood 119 mg/dL (75-99)
[2019-06-19 04:23] LABS: Glucose,Whole Blood 116 mg/dL (75-99)
[2019-06-19 05:20] LABS: Glucose,Whole Blood 61 mg/dL (75-99)
[2019-06-19] MEDS: INSULIN ASPART (NovoLOG) 100 UNIT/ML VIAL SQ SCH ×2 (05:27→20:26)
[2019-06-19 05:52] LABS: Glucose,Whole Blood 154 mg/dL (75-99)
[2019-06-19] MEDS ORDERED: NALOXONE 0.4 MG/ML 1 ML VIAL ONE (05:55)
[2019-06-19 06:08] LABS: ABG Base Excess 6.5 mmol/L; ABG HCO3 31 mmol/L (21-25); ABG PCO2 44 mmHg (35-45); ABG PH 7.45 (7.35-7.45); ABG PO2 79 mmHg (83-108); ABG TCO2 32 mmol/L (19-24); Allen Test Performed? Yes
[2019-06-19 06:12] LABS: Glucose,Whole Blood 132 mg/dL (75-99)
[2019-06-19 06:35] LABS: Basophils % (A) 0 %; Eosinophils % (A) 0 %; HGB 12.5 gm/dL (13.0-17.5); Lymphocytes # (A) 1.3 k/uL (1.0-4.8); Lymphocytes % (A) 11 %; MCH 30.8 pg (25.0-35.0); MCHC 32.1 g/dL (31.0-37.0); MCV 96.1 fL (80.0-100.0); Monocytes # (A) 0.7 k/uL (0-1.0); Monocytes % (A) 6 %; Neutrophils # (A) 9.7 k/uL (1.3-7.7); Neutrophils % (A) 81 %; Platelet Count 193 k/uL (150-450); RBC 4.06 m/uL (4.30-5.90); RDW 13.7 % (11.5-15.5); WBC 11.9 k/uL (3.8-10.6)
--- NOTE | 2019-06-19 06:41 | P.EN ---
I was called by RN , patient seems to be lethargic patient was found to have low blood sugar, he had 30 units of levemir at bedtime. blood sugar was corrected with D10. however he had another dip in blood sugar 2 hours later. another bag of d 10 was given patient is not talking or opening eyes spontaneosly, however, with pain stimulation to his ear lobule, patient sat up in bed, opened eyes and localized his pain with left hand and pushed my hand away, and moved his head away. he only moaned and did not say a word. this is the first time i see this patient , his baseline is not known to me. however, RN , did report that during the whole shift when he was awake, he would only mumble unintelligible words and very hard to understand. and overall he seemed to not willing to interact properly when seen by the nursing staff. it is suspected that he has some underlying psych issues. through all this his vital signs remained at all time stable , with oxygen saturation above 92%. ABG done to review CO2 which was within normal limits continue to monitor blood sugar closely consider psych evaluation
[2019-06-19] MEDS: CARVEDILOL 6.25 MG TAB PO SCH ×2 (06:49→19:27)
[2019-06-19 06:50] LABS: ALT 68 U/L (4-49); AST 64 U/L (17-59); African American GFR (CKD) >90 (>60 ml/min/1.73 sqM); Alkaline Phosphatase 286 U/L (38-126); Anion Gap 7 mmol/L; Blood Urea Nitrogen 42 mg/dL (9-20); Calcium 8.5 mg/dL (8.4-10.2); Carbon Dioxide 28 mmol/L (22-30); Chloride 100 mmol/L (98-107); Glucose 137 mg/dL (74-99); Magnesium 2.1 mg/dL (1.6-2.3); Non-African American GFR(CKD) 88 (>60 ml/min/1.73 sqM); Potassium 3.7 mmol/L (3.5-5.1); Sodium 135 mmol/L (137-145); Total Protein 5.8 g/dL (6.3-8.2)
[2019-06-19] MEDS: FUROSEMIDE 10 MG/ML 4 ML VIAL IV SCH (06:53)
[2019-06-19] MEDS: IPRATROPIUM-ALBUTEROL 3 ML NEB INHALATION SCH ×4 (07:50→21:15)
[2019-06-19 08:17] LABS: Glucose,Whole Blood 51 mg/dL (75-99)
[2019-06-19 08:39] LABS: Glucose,Whole Blood 206 mg/dL (75-99)
[2019-06-19] MEDS ORDERED: GABAPENTIN 300 MG CAP PO SCH (09:00)
[2019-06-19] MEDS ORDERED: AZITHROMYCIN 250 MG TAB PO SCH (09:00)
[2019-06-19] MEDS: DEXTROSE 5%-0.45% NACL 1,000 ML IV SCH ×2 (09:15→17:36)
[2019-06-19 10:23] LABS: Glucose,Whole Blood 99 mg/dL (75-99)
[2019-06-19] MEDS: CLOPIDOGREL 75 MG TAB PO SCH (10:57)
[2019-06-19] MEDS: ASPIRIN 81 MG PO SCH (10:57)
[2019-06-19] MEDS: SPIRONOLACTONE 25 MG TAB PO SCH (10:58)
[2019-06-19] MEDS: LISINOPRIL 10 MG TAB PO SCH (10:58)
[2019-06-19 12:17] LABS: Glucose,Whole Blood 61 mg/dL (75-99)
--- NOTE | 2019-06-19 12:32 | P.PN ---
Subjective Progress Note Date: 06/19/19 Principal diagnosis: Hypothermia, hypoglycemia Patient was seen and examined. No acute events overnight. Apparently overnight patient more lethargic with hypoglycemic events. Given D10 multiple times through the night currently on D5. When I went to examine the patient he had perked up. Refusing to let nursing check rectal temperature. He is however oriented 3 and knows that he is in [facility]. Temperature as low as 93.7. Currently on bear hugger and warmed IVF. Patient reports withdrawal-like symptoms. Complains of myalgia along with abdominal pain related to stomach churning. He denies any chest pain, shortness of breath or palpitations. No nausea or vomiting. Objective - Vital Signs Vital signs: Vital Signs Temp 93.9 F L 06/19/19 10:43 Pulse 63 06/19/19 11:55 Resp 20 06/19/19 11:55 BP 106/53 06/19/19 11:55 Pulse Ox 97 06/19/19 11:55 Intake & Output 06/18/19 06/19/19 06/19/19 18:59 06:59 18:59 Intake Total 100 0 Output Total 340 1775 Balance -240 -1775 Weight 61.5 kg Intake: Oral 100 0 Output: Urine 340 1775 Other: Voiding Method Toilet Urinal # Voids 2 1 - Exam General: [non toxic], [no distress], [appears at stated age], [on bear hugger] Derm: [warm], [dry] Head: [atraumatic], [normocephalic], [symmetric] Eyes: [EOMI], [no lid lag], [anicteric sclera] Mouth: [no lip lesion], [mucus membranes moist] Cardiovascular: [S1S2 reg], [no murmur], [positive DP pulse bilateral], Lungs: [CTA bilateral], [no rhonchi, no rales] , [no accessory muscle use] Abdominal: [soft], [ nontender to palpation], [no guarding], [no appreciable org anomegaly] Ext: [no gross muscle atrophy], [no edema], [no contractures], [multiple needle cleary along the upper extremities bilaterally], [tremor of the right upper extremity] Neuro: [no focal neuro deficits] Psych: [Alert], [oriented], [appropriate affect] - Labs CBC & Chem 7: 06/19/19 06:08 06/19/19 06:08 Labs: Abnormal Lab Results - Last 24 Hours (Table) 06/18/19 06/18/19 06/19/19 Range/Units 16:54 20:28 03:42 WBC (3.8-10.6) k/uL RBC (4.30-5.90) m/uL Hgb (13.0-17.5) gm/dL Neutrophils # (1.3-7.7) k/uL ABG pO2 (83-108) mmHg ABG HCO3 (21-25) mmol/L ABG Total CO2 (19-24) mmol/L Sodium (137-145) mmol/L BUN (9-20) mg/dL Glucose (74-99) mg/dL POC Glucose (mg/dL) 158 H 178 H 44 L (75-99) mg/dL AST (17-59) U/L ALT (4-49) U/L Alkaline Phosphatase (38-126) U/L Total Protein (6.3-8.2) g/dL Albumin (3.5-5.0) g/dL 06/19/19 06/19/19 06/19/19 Range/Units 03:59 04:20 05:19 WBC (3.8-10.6) k/uL RBC (4.30-5.90) m/uL Hgb (13.0-17.5) gm/dL Neutrophils # (1.3-7.7) k/uL ABG pO2 (83-108) mmHg ABG HCO3 (21-25) mmol/L ABG Total CO2 (19-24) mmol/L Sodium (137-145) mmol/L BUN (9-20) mg/dL Glucose (74-99) mg/dL POC Glucose (mg/dL) 119 H 116 H 61 L (75-99) mg/dL AST (17-59) U/L ALT (4-49) U/L Alkaline Phosphatase (38-126) U/L Total Protein (6.3-8.2) g/dL Albumin (3.5-5.0) g/dL 06/19/19 06/19/19 06/19/19 Range/Units 05:41 06:05 06:08 WBC 11.9 H (3.8-10.6) k/uL RBC 4.06 L (4.30-5.90) m/uL Hgb 12.5 L (13.0-17.5) gm/dL Neutrophils # 9.7 H (1.3-7.7) k/uL ABG pO2 79 L (83-108) mmHg ABG HCO3 31 H (21-25) mmol/L ABG Total CO2 32 H (19-24) mmol/L Sodium (137-145) mmol/L BUN (9-20) mg/dL Glucose (74-99) mg/dL POC Glucose (mg/dL) 154 H (75-99) mg/dL AST (17-59) U/L ALT (4-49) U/L Alkaline Phosphatase (38-126) U/L Total Protein (6.3-8.2) g/dL Albumin (3.5-5.0) g/dL 06/19/19 06/19/19 06/19/19 Range/Units 06:08 06:11 07:59 WBC (3.8-10.6) k/uL RBC (4.30-5.90) m/uL Hgb (13.0-17.5) gm/dL Neutrophils # (1.3-7.7) k/uL ABG pO2 (83-108) mmHg ABG HCO3 (21-25) mmol/L ABG Total CO2 (19-24) mmol/L Sodium 135 L (137-145) mmol/L BUN 42 H (9-20) mg/dL Glucose 137 H (74-99) mg/dL POC Glucose (mg/dL) 132 H 51 L (75-99) mg/dL AST 64 H (17-59) U/L ALT 68 H (4-49) U/L Alkaline Phosphatase 286 H (38-126) U/L Total Protein 5.8 L (6.3-8.2) g/dL Albumin 3.0 L (3.5-5.0) g/dL 06/19/19 Range/Units 08:18 WBC (3.8-10.6) k/uL RBC (4.30-5.90) m/uL Hgb (13.0-17.5) gm/dL Neutrophils # (1.3-7.7) k/uL ABG pO2 (83-108) mmHg ABG HCO3 (21-25) mmol/L ABG Total CO2 (19-24) mmol/L Sodium (137-145) mmol/L BUN (9-20) mg/dL Glucose (74-99) mg/dL POC Glucose (mg/dL) 206 H (75-99) mg/dL AST (17-59) U/L ALT (4-49) U/L Alkaline Phosphatase (38-126) U/L Total Protein (6.3-8.2) g/dL Albumin (3.5-5.0) g/dL Microbiology - Last 24 Hours (Table) 06/17/19 05:58 Blood Culture - Preliminary Blood No Growth after 48 hours Assessment and Plan Assessment: Metabolic encephalopathy SIRS positive with Hypothermia and leukocytosis Acute on chronic CHF exacerbation Hypoglycemia Elevated BUN Chest pain Acute sinusitis Polysubstance abuse with opiate dependence Generalized weakness with gait instability Depression Transaminitis with history of hepatitis C Type 2 diabetes mellitus Hypertension COPD without exacerbation CT brain negative for acute change. UDS positive for amphetamine, cocaine and marijuana. Likely related to drug withdrawal. Ammonia level negative. Concerns for sepsis and thyroid abnormality given hypoglycemia and hypothermia. ABG shows primary metabolic alkalosis with superimposed respiratory acidosis. Plans: Maintain O2 saturation greater than 92%. Follow TSH. Follow B12. Frequent redirection. Avoid sedative medication, discontinue gabapentin. Follow blood cultures. Regular Accu-Cheks. Patient is SIRS positive. Hypothermic with leukocytosis. No obvious signs of infection. Blood culture preliminary negative at 48 hours. Plans: Follow repeat blood cultures. Continue azithromycin for sinusitis. Continue Bear hugger and warmed IVF. Monitor vitals. Telemetry monitoring. Follow TSH and cortisol. Most recent chest x-ray shows improvement in CHF. Echocardiogram shows less than the 20% EF. Plans: Lasix switched to oral. Continue Coreg. Continue lisinopril. Continue spironolactone. Strict intake and output. Daily weights. Follow cardiology recommendations. [id number] glucose 99. Unknown significance. A1c 7.8. Plans: Continue D5. Regular Accu-Cheks. Discontinue insulin. BUN 42. Likely due to Lasix use. Plans: Avoid nephrotoxins. Gentle hydration. Repeat BMP tomorrow morning. Troponin less than 0.0123 with EKG showing sinus rhythm with occasional PVCs. ACS ruled out. Possibly vasospastic due to cocaine use. As seen on CT brain. Plans: Continue azithromycin. UDS positive for opiates, methamphetamines and marijuana. Plans: Follow psychiatry recommendations. Needs to quit. Plans: Follow PT and OT recommendations. Plans: Continue Remeron. Follow psychiatry recommendations. AST 64, ALT 68, alkaline phosphatase 286. Plans: Follow liver and gallbladder ultrasound. Follow acute hepatitis panel. Plans: Discontinue insulin due to hypoglycemic nature. BP 106/53. Plans: Continue Coreg. Continue lisinopril. Continue Aldactone. Monitor vitals, adjust medications as necessary. Patient is currently not in acute exacerbation. [Patient's mentation is improving. Currently hypothermic with hypoglycemic events. Meets SIRS criteria but no source of infection, repeat blood cultures pending, only on azithromycin for sinusitis. Also IV drug user with possible withdrawal. Being treated for CHF exacerbation, Lasix transitioned to oral. Will continue to monitor his temperature and blood glucose. He is pending clinical improvement. High risk for AMA. Prognosis is guarded. Likely DC in 2-3 days.]
--- NOTE | 2019-06-19 12:47 | P.PN ---
Subjective This is a 59-year-old male past medical history significant for nonischemic cardiomyopathy, chronic systolic heart failure, hypertension, dyslipidemia, diabetes mellitus, chronic nicotine dependence, psychiatric illness and substance abuse including marijuana and heroin. He does not follow regularly with a anode rebuilder. He is seen and examined resting comfortably laying flat in bed. He is somewhat obtunded however does communicate after sternal rub. Bear hugger in place. He had an episode of hypoglycemia through the night and is currently maintained on D5 infusion. Core temperature 93F. He denies chest pain or shortness of breath. He states his name and is aware he is at [facility]. Laboratory data reviewed, WBC 11.9, hemoglobin 12.5, platelets 193, pCO2 02 44, pO2 79, bicarb 31, sodium 135, potassium 3.7, creati nine 0.94, AST 64, ALT 68, alkaline phosphatase 286. Blood pressure 117/57 heart rate 54 afebrile maintaining oxygen saturation on room air. Chest x-ray obtained yesterday revealed improving heart failure with scattered parenchymal changes and hyperinflation. Currently maintained on aspirin 81 mg daily, carvedilol 6.25 mg twice a day, Plavix 75 mg daily, Lasix 40 mg IV twice a day, lisinopril 10 mg daily and Aldactone 25 mg daily. Echocardiogram obtained on this admission reveals severe global hypokinesia with EF less than 20%, mild aortic sclerosis with a mean gradient across the valve 2 mmHg, mild MR, mild TR and moderate pulmonary hypertension with RVSP of 54 mmHg. There is a questio nable calcification versus vegetation on the aortic valve. Most recent cardiac catheterization performed in 2016 revealed proximal to mid RCA stented with intermediate in-stent restenosis, left main calcified but angiographically normal, circumflex with a plaque in the range of 30% at the ostium, a pproximately 30%, LAD angiographically normal. GENERAL: Well-appearing, well-nourished and in no acute distress. NECK: Supple without JVD or thyromegaly. LUNGS: Faint expiratory wheeze, scattered rhonchi. No rales Respiration equal and unlabored. No wheezes, rales or rhonchi. HEART: Regular rate and rhythm with systolic ejection murmur at the left sternal border, no rubs or gallops. S1 and S2 heard. EXTREMITIES: Normal range of motion, no edema. No clubbing or cyanosis. Peripheral pulses intact. ASSESSMENT Acute on chronic systolic heart failure Ischemic cardiomyopathy Hypoglycemia Hypothermia History of coronary artery disease status post PCI RCA Hypertension Dyslipidemia Diabetes mellitus COPD Chronic nicotine dependence Polysubstance abuse PLAN Discontinue plavix. Transition to oral diuretics, 40 mg PO. Ongoing medical management of hypoglycemia and altered mental status. Nurse Practitioner note has been reviewed, I agree with a documented findings and plan of care. Patient was seen and examined. Objective - Vital Signs Vital signs: Vital Signs Temp 93.9 F L 06/19/19 10:43 Pulse 54 L 06/19/19 08:57 Resp 20 06/19/19 08:57 BP 117/57 06/19/19 08:57 Pulse Ox 94 L 06/19/19 08:57 Intake & Output 06/18/19 06/19/19 06/19/19 18:59 06:59 18:59 Intake Total 100 0 Output Total 340 1775 Balance -240 -1775 Weight 61.5 kg Intake: Oral 100 0 Output: Urine 340 1775 Other: Voiding Method Toilet Urinal # Voids 2 1 - Labs CBC & Chem 7: 06/19/19 06:08 06/19/19 06:08 Labs: Abnormal Lab Results - Last 24 Hours (Table) 06/18/19 06/18/19 06/18/19 Range/Units 10:40 11:38 16:54 WBC (3.8-10.6) k/uL RBC (4.30-5.90) m/uL Hgb (13.0-17.5) gm/dL Neutrophils # (1.3-7.7) k/uL ABG pO2 (83-108) mmHg ABG HCO3 (21-25) mmol/L ABG Total CO2 (19-24) mmol/L Sodium 135 L (137-145) mmol/L BUN 27 H (9-20) mg/dL Glucose 140 H (74-99) mg/dL POC Glucose (mg/dL) 167 H 158 H (75-99) mg/dL AST (17-59) U/L ALT (4-49) U/L Alkaline Phosphatase (38-126) U/L Total Protein (6.3-8.2) g/dL Albumin (3.5-5.0) g/dL 06/18/19 06/19/19 06/19/19 Range/Units 20:28 03:42 03:59 WBC (3.8-10.6) k/uL RBC (4.30-5.90) m/uL Hgb (13.0-17.5) gm/dL Neutrophils # (1.3-7.7) k/uL ABG pO2 (83-108) mmHg ABG HCO3 (21-25) mmol/L ABG Total CO2 (19-24) mmol/L Sodium (137-145) mmol/L BUN (9-20) mg/dL Glucose (74-99) mg/dL POC Glucose (mg/dL) 178 H 44 L 119 H (75-99) mg/dL AST (17-59) U/L ALT (4-49) U/L Alkaline Phosphatase (38-126) U/L Total Protein (6.3-8.2) g/dL Albumin (3.5-5.0) g/dL 06/19/19 06/19/19 06/19/19 Range/Units 04:20 05:19 05:41 WBC (3.8-10.6) k/uL RBC (4.30-5.90) m/uL Hgb (13.0-17.5) gm/dL Neutrophils # (1.3-7.7) k/uL ABG pO2 (83-108) mmHg ABG HCO3 (21-25) mmol/L ABG Total CO2 (19-24) mmol/L Sodium (137-145) mmol/L BUN (9-20) mg/dL Glucose (74-99) mg/dL POC Glucose (mg/dL) 116 H 61 L 154 H (75-99) mg/dL AST (17-59) U/L ALT (4-49) U/L Alkaline Phosphatase (38-126) U/L Total Protein (6.3-8.2) g/dL Albumin (3.5-5.0) g/dL 06/19/19 06/19/19 06/19/19 Range/Units 06:05 06:08 06:08 WBC 11.9 H (3.8-10.6) k/uL RBC 4.06 L (4.30-5.90) m/uL Hgb 12.5 L (13.0-17.5) gm/dL Neutrophils # 9.7 H (1.3-7.7) k/uL ABG pO2 79 L (83-108) mmHg ABG HCO3 31 H (21-25) mmol/L ABG Total CO2 32 H (19-24) mmol/L Sodium 135 L (137-145) mmol/L BUN 42 H (9-20) mg/dL Glucose 137 H (74-99) mg/dL POC Glucose (mg/dL) (75-99) mg/dL AST 64 H (17-59) U/L ALT 68 H (4-49) U/L Alkaline Phosphatase 286 H (38-126) U/L Total Protein 5.8 L (6.3-8.2) g/dL Albumin 3.0 L (3.5-5.0) g/dL 06/19/19 06/19/19 06/19/19 Range/Units 06:11 07:59 08:18 WBC (3.8-10.6) k/uL RBC (4.30-5.90) m/uL Hgb (13.0-17.5) gm/dL Neutrophils # (1.3-7.7) k/uL ABG pO2 (83-108) mmHg ABG HCO3 (21-25) mmol/L ABG Total CO2 (19-24) mmol/L Sodium (137-145) mmol/L BUN (9-20) mg/dL Glucose (74-99) mg/dL POC Glucose (mg/dL) 132 H 51 L 206 H (75-99) mg/dL AST (17-59) U/L ALT (4-49) U/L Alkaline Phosphatase (38-126) U/L Total Protein (6.3-8.2) g/dL Albumin (3.5-5.0) g/dL Microbiology - Last 24 Hours (Table) 06/17/19 05:58 Blood Culture - Preliminary Blood No Growth after 48 hours
[2019-06-19 14:05] LABS: Glucose,Whole Blood 173 mg/dL (75-99)
[2019-06-19] MEDS ORDERED: LOPERAMIDE 2 MG CAP PO PRN (15:12)
[2019-06-19 16:51] LABS: Glucose,Whole Blood 170 mg/dL (75-99)
[2019-06-19] MEDS: FUROSEMIDE 40 MG TAB PO SCH (19:27)
[2019-06-19] MEDS: MIRTAZAPINE 15 MG TAB PO SCH (20:10)
[2019-06-19 20:11] LABS: Glucose,Whole Blood 245 mg/dL (75-99)
[2019-06-20 02:18] LABS: Glucose,Whole Blood 215 mg/dL (75-99)
[2019-06-20] MEDS: DEXTROSE 5%-0.45% NACL 1,000 ML IV SCH ×2 (04:12→11:34)
[2019-06-20] MEDS: LORazepam 2 MG/ML INJ IV PRN (04:33)
[2019-06-20] MEDS ORDERED: HALOPERIDOL LACTATE 5 MG/ML 1 ML VIAL IM ONE (05:51)
[2019-06-20] MEDS: CARVEDILOL 6.25 MG TAB PO SCH (06:27)
[2019-06-20] MEDS: INSULIN ASPART (NovoLOG) 100 UNIT/ML VIAL SQ SCH (06:27)
[2019-06-20] MEDS: IPRATROPIUM-ALBUTEROL 3 ML NEB INHALATION SCH ×2 (08:44→12:05)
--- NOTE | 2019-06-20 09:46 | US ---
EXAMINATION TYPE: US liver DATE OF EXAM: 06/20/2019 COMPARISON: NONE CLINICAL HISTORY: Transaminitis. EXAM MEASUREMENTS: Liver Length: 15.8 cm Gallbladder Wall: Surgically absent CBD: 0.3 cm Right Kidney: 11.2 x 4.2 x 4.7 cm Non-cooperative, verbally abusive patient. Technically difficult and somewhat limited Pancreas: Obscured by bowel gas Liver: wnl as seen, echogenic foci in portal vein with surrounding flow Gallbladder: Surgically absent Evidence for sonographic Sears's sign: no CBD: wnl Right Kidney: wnl Right pleural effusion. The pancreas is incompletely visualized. The liver is normal in size. There appears to be something within the portal vein either representing thrombus or tumor. There is portal venous flow. The gallbladder is been removed. Distal common hepatic duct measures 3 mm. The right kidney is normal. IMPRESSION: ECHOGENIC SUBSTANCE WITHIN THE PORTAL VEIN MAY REPRESENT BLAND THROMBUS OR TUMOR THROMBUS.
--- NOTE | 2019-06-20 11:02 | P.DS ---
Providers Date of admission: 06/18/19 15:49 Expected date of discharge: 06/20/19 Attending physician: Elda Lind MD Consults: 06/17/19 13:33 Consult Physician Routine Consulting Provider: Tr Maldonado Consult Reason/Comments: chest pain Do you want consulting provider notified?: Yes 06/18/19 15:43 Consult Physician Routine Consulting Provider: Pramod Foster Consult Reason/Comments: depression/polysubsance drug use Do you want consulting provider notified?: Yes Primary care physician: Stated None Hospital Course: 5-year-old male with PMH of type 2 diabetes, history of MA with ischemic cardiomyopathy, chronic systolic CHF, hypertension, dyslipidemia, opiate dependence, IV drug abuser with anxiety and depression/bipolar disorder initially presented to the ED for shortness of breath and chest pain. He also reported increasing lower extremity swelling along with 3 pillow orthopnea. Chest x-ray initially showed cardiomegaly with mild vascular congestion and trace pleural effusion, BNP was 13,800. Influenza A and B were negative. Initial troponin was less than 0.012 with EKG showing sinus rhythm with PVCs. Patient was admitted for acute on chronic systolic CHF exacerbation with cardiology on consult. Patient was initially diuresed with Lasix IV and transitioned to oral on discharge. Repeat chest x-ray showed improvement and is vascular congestion. He was breathing on room air at the time of discharge. Echocardiogram was performed during this admission showed EF less than 20%. Cardiology was consulted and continue the patient on spironolactone, Coreg and lisinopril. Patient was noted to have an acute change in mentation during his hospitalization. CT brain was initially performed which was negative for acute changes. UDS was positive for methamphetamine, cocaine and marijuana. Ammonia level was negative. Patient was noted to be hypoglycemic on day 2 of admission along with hypothermic with a T-low of 93.7 Fahrenheit. He was started on bear hugger and warmed infused IVF. His temperature improved with treatment. There was some concerns of sepsis as patient met SIRS criteria. Patient did not have any source of infection except for sinusitis which was being treated with oral azithromycin. He did have a leukocytosis of 11.9 on June 19 2019. Blood cultures were prelim negative at 48 hours. TSH and cortisol was within normal limits. With regard to his chest pain, acute coronary syndrome was ruled out. Troponin was less than 0.023 with EKG showing sinus rhythm with occasional PVCs. His chest pain was likely vasospastic due to cocaine use. Patient was seen and examined. No acute events overnight. Discussed with RN, apparently aggressive and hostile towards female nursing staff overnight. Requ stevenson Danielson. Currently sleeping but easily arousable. General: [non toxic], [no distress], [appears at stated age] Derm: [warm], [dry] Head: [atraumatic], [normocephalic], [symmetric] Eyes: [EOMI], [no lid lag], [anicteric sclera] Mouth: [no lip lesion], [mucus membranes moist] Cardiovascular: [S1S2 reg], [no murmur], [positive DP pulse bilateral], Lungs: [CTA bilateral], [no rhonchi, no rales] , [no accessory muscle use] Abdominal: [soft], [ nontender to palpation], [no guarding], [no appreciable organomegaly] Ext: [no gross muscle atrophy], [no edema], [no contractures], [multiple needle cleary along the upper extremities bilaterally] Neuro: [no focal neuro deficits] Psych: [Alert], [oriented], [appropriate affect] Metabolic encephalopathy SIRS positive with Hypothermia and leukocytosis Acute on chronic CHF exacerbation Elevated BUN Chest pain Acute sinusitis Polysubstance abuse with opiate dependence Generalized weakness with gait instability Depression Transaminitis with history of hepatitis C Type 2 diabetes mellitus Hypertension COPD without exacerbation Resolved: Metabolic encephalopathy, Hypothermia, hypoglycemia, chest pain Patient CT brain was negative. His UDS is positive for amphetamine, cocaine or marijuana. His acute metabolic encephalopathy is likely related to drug withdrawal. He did have a visitor the night previous to his altered mental status, suspect possible illicit drug intake. Ammonia level has been negative. Patient initially had a period of hypoglycemia and hypothermia during his hospitalization but that has improved now. There was concerns for sepsis but no source of infection has been identified and blood cultures have been negative at 72 hours. Patient is hemodynamically stable otherwise. Patient is SIRS positive. Hypothermic with leukocytosis, resolved today. No obvious signs of infection. Blood culture preliminary negative at 72 hours. TSH and cortisol is within normal limits. Plans: Follow repeat blood cultures. Continue azithromycin for sinusitis. Monitor vitals. Telemetry monitoring. Most recent chest x-ray shows improvement in CHF. Echocardiogram shows less than the 20% EF. Plans: Lasix switched to oral. Continue Coreg. Continue lisinopril. Continue spironolactone. Strict intake and output. Daily weights. Follow cardiology recommendations. BUN 42. Likely due to Lasix use. Plans: Avoid nephrotoxins. Gentle hydration. Repeat BMP tomorrow morning. Troponin less than 0.0123 with EKG showing sinus rhythm with occasional PVCs. ACS ruled out. Possibly vasospastic due to cocaine use. As seen on CT brain. Plans: Continue azithromycin. UDS positive for opiates, methamphetamines and marijuana. Plans: Follow psychiatry recommendations. Needs to quit. Plans: Follow PT and OT recommendations. Plans: Continue Remeron. Follow psychiatry recommendations. AST 64, ALT 68, alkaline phosphatase 286. Plans: Follow liver and gallbladder ultrasound. Follow acute hepatitis panel. Plans: Discontinue insulin due to hypoglycemic nature. BP 139/86. Plans: Continue Coreg. Continue lisinopril. Continue Aldactone. Monitor vitals, adjust medications as necessary. Patient is currently not in acute exacerbation. [Patient's hypothermia, hypoglycemia and metabolic encephalopathy has resolved. Patient is aggressive and combative towards female nursing staff, suspect at baseline. Cultures have been negative so far and patient has no signs of infection. He is an IV drug user and possibly owing to drug withdrawal. His CHF has been treated and Lasix transitioned to oral. Plan is to discharge the patient home in the afternoon if he remains hemodynamically stable and ambulates well.] Pertinent Studies: Chest x-ray, brain CT, echocardiogram, liver ultrasound Patient Condition at Discharge: Stable Plan - Discharge Summary Discharge Rx Participant: No New Discharge Prescriptions: New Spironolactone [Aldactone] 25 mg PO DAILY #30 tab Aspirin 81 mg PO DAILY #30 chew Carvedilol [Coreg] 6.25 mg PO BID-W/MEALS #60 tab Lisinopril [Zestril] 10 mg PO DAILY #30 tab Azithromycin [Zithromax] 250 mg PO DAILY #3 tab Continue Gabapentin 800 mg PO TID #20 tab Furosemide [Lasix] 40 mg PO BID #60 tab Discontinued Carvedilol [Coreg] 25 mg PO BID Discharge Medication List Gabapentin 800 mg PO TID #20 tab 04/17/19 [Rx] Aspirin 81 mg PO DAILY #30 chew 06/20/19 [Rx] Azithromycin [Zithromax] 250 mg PO DAILY #3 tab 06/20/19 [Rx] Carvedilol [Coreg] 6.25 mg PO BID-W/MEALS #60 tab 06/20/19 [Rx] Furosemide [Lasix] 40 mg PO BID #60 tab 06/20/19 [Rx] Lisinopril [Zestril] 10 mg PO DAILY #30 tab 06/20/19 [Rx] Spironolactone [Aldactone] 25 mg PO DAILY #30 tab 06/20/19 [Rx] Follow up Appointment(s)/Referral(s): None,Stated [Primary Care Provider] - 1-2 days Jhonny Nina MD [STAFF PHYSICIAN] - 1 Week Ambulatory/Diagnostic Orders: Complete Blood Count w/diff [LAB.AMB] Time Frame: 3 Days, Location: None Selected Comprehensive Metabolic Panel [LAB.AMB] Time Frame: 3 Days, Location: None Selected Activity/Diet/Wound Care/Special Instructions: Diet: Regular Follow-up PCP within 3 days of discharge. Follow-up cardiology within 1 week of discharge. Take all medications as advised. Please quit illicit drugs. Repeat CBC in 3 days. Repeat CMP in 3 days. Follow-up results of both of these tests with PCP. Come back to the ED or call 911 for worsening chest pain, shortness of breath, palpitations, dizziness. Discharge Disposition: HOME SELF-CARE
[2019-06-20 11:20] VITALS: BP 138/89; PULSE 69; RESP 22; TEMP 98.8
[2019-06-20] MEDS: LISINOPRIL 10 MG TAB PO SCH (11:29)
[2019-06-20] MEDS: ASPIRIN 81 MG PO SCH (11:29)
[2019-06-20] MEDS: FUROSEMIDE 40 MG TAB PO SCH (11:30)
[2019-06-20] MEDS: SPIRONOLACTONE 25 MG TAB PO SCH (11:30)
[2019-06-20 11:42] LABS: Glucose,Whole Blood 179 mg/dL (75-99)
[2019-06-21 11:46] LABS: Hepatitis A Antibody IgM Non-Reactive (Non-Reactive); Hepatitis B Core IgM Reactive (Non-Reactive); Hepatitis C IgG Antibody Reactive (Non-Reactive)
[2019-06-21 12:36] LABS: Hepatitis B Surface Antigen Reactive (Non-Reactive)
== END 2019-06-20 12:56 | disposition left against medical advice (07) | DRG 291 ==
LOC: EC 05:12 → 3SCARD 07:35 → OBSVTOIN 06-18 15:49
PROVIDERS: ADMIT Internal Medicine; ATTEND Internal Medicine
DX: I11.0 Hypertensive heart disease with heart failure (principal); G93.41 Metabolic encephalopathy; E87.1 Hypo-osmolality and hyponatremia; E87.4 Mixed disorder of acid-base balance; F11.20 Opioid dependence, uncomplicated; R65.10 Systemic inflammatory response syndrome (SIRS) of non-infectious origin without acute organ dysfunction; I50.23 Acute on chronic systolic (congestive) heart failure; D69.6 Thrombocytopenia, unspecified; E11.42 Type 2 diabetes mellitus with diabetic polyneuropathy; E11.649 Type 2 diabetes mellitus with hypoglycemia without coma; E78.5 Hyperlipidemia, unspecified; F14.10 Cocaine abuse, uncomplicated; F17.200 Nicotine dependence, unspecified, uncomplicated; F31.9 Bipolar disorder, unspecified; F41.9 Anxiety disorder, unspecified; I25.10 Atherosclerotic heart disease of native coronary artery without angina pectoris; I25.2 Old myocardial infarction; I25.5 Ischemic cardiomyopathy; I27.20 Pulmonary hypertension, unspecified; I35.8 Other nonrheumatic aortic valve disorders; I42.8 Other cardiomyopathies; I49.3 Ventricular premature depolarization; I70.0 Atherosclerosis of aorta; J01.90 Acute sinusitis, unspecified; K21.9 Gastro-esophageal reflux disease without esophagitis; T50.1X5A Adverse effect of loop [high-ceiling] diuretics, initial encounter; Z79.02 Long term (current) use of antithrombotics/antiplatelets; Z79.4 Long term (current) use of insulin; Z79.82 Long term (current) use of aspirin; Z79.899 Other long term (current) drug therapy; Z82.49 Family history of ischemic heart disease and other diseases of the circulatory system; Z83.3 Family history of diabetes mellitus; Z86.73 Personal history of transient ischemic attack (TIA), and cerebral infarction without residual deficits; Z91.19 Patient's noncompliance with other medical treatment and regimen; Z95.5 Presence of coronary angioplasty implant and graft; J44.9 Chronic obstructive pulmonary disease, unspecified
CPT/HCPCS: 36415; 36600; 70450; 71046; 76705; 80048; 80053; 80061; 80074; 80306; 82140; 82533; 82607; 82805; 83036; 83605; 83735; 83880; 84443; 84484; 85025; 85610; 85730; 87040; 87340; 87502; 93005; 93306; 94640; 96374; 96375; 99285

== ENCOUNTER 2019-11-19 16:48 | Observation (INO) | payer OTHER ==
[2019-11-19 17:16] LABS: Basophils # (A) 0.1 k/uL (0-0.2); Basophils % (A) 1 %; Eosinophils # (A) 0.1 k/uL (0-0.7); Eosinophils % (A) 2 %; HCT 43.2 % (39.0-53.0); HGB 13.8 gm/dL (13.0-17.5); Lymphocytes # (A) 1.8 k/uL (1.0-4.8); Lymphocytes % (A) 30 %; MCH 30.8 pg (25.0-35.0); MCHC 31.9 g/dL (31.0-37.0); MCV 96.5 fL (80.0-100.0); Mean Platelet Volume 9.1; Monocytes # (A) 0.4 k/uL (0-1.0); Monocytes % (A) 7 %; Neutrophils # (A) 3.5 k/uL (1.3-7.7); Neutrophils % (A) 59 %; Platelet Count 161 k/uL (150-450); RBC 4.48 m/uL (4.30-5.90); WBC 5.9 k/uL (3.8-10.6)
[2019-11-19 17:33] LABS: ALT 54 U/L (4-49); AST 55 U/L (17-59); African American GFR (CKD) >90 (>60 ml/min/1.73 sqM); Albumin 3.7 g/dL (3.5-5.0); Alkaline Phosphatase 108 U/L (38-126); Anion Gap 9 mmol/L; Blood Urea Nitrogen 19 mg/dL (9-20); Calcium 8.7 mg/dL (8.4-10.2); Carbon Dioxide 28 mmol/L (22-30); Chloride 93 mmol/L (98-107); Magnesium 1.7 mg/dL (1.6-2.3); Non-African American GFR(CKD) 86 (>60 ml/min/1.73 sqM); Potassium 4.6 mmol/L (3.5-5.1); Sodium 130 mmol/L (137-145); Total Bilirubin 0.8 mg/dL (0.2-1.3); Total Protein 6.9 g/dL (6.3-8.2)
[2019-11-19 17:38] LABS: INR 1.1 (<1.2); Partial Thromboplastin Time 26.7 sec (22.0-30.0); Prothrombin Time 10.9 sec (9.0-12.0)
--- NOTE | 2019-11-19 17:40 | XR ---
EXAMINATION TYPE: XR chest 2V DATE OF EXAM: 11/19/2019 COMPARISON: 06/18/2019 HISTORY: Difficulty breathing TECHNIQUE: Frontal and lateral views of the chest are obtained. FINDINGS: There is a new patchy right infrahilar consolidation. Biapical lucency suggests underlying COPD. Mild multilevel degenerative change of the spine. Stable upper limit of normal size cardia med iastinal silhouette. No sizable pleural effusion or pneumothorax. IMPRESSION: New right infrahilar opacity. Consider unifocal pneumonia. Underlying emphysematous tsai ge.
[2019-11-19 17:48] LABS: Glucose 510 mg/dL (74-99)
[2019-11-19] MEDS ORDERED: SODIUM CHLORIDE 0.9% 500 ML 500 ML IV ONE (17:52)
[2019-11-19] MEDS ORDERED: MORPHINE SULFATE 2 MG/ML SYRINGE IVP STA (18:21)
[2019-11-19] MEDS ORDERED: ASPIRIN 81 MG PO STA (18:28)
[2019-11-19] MEDS ORDERED: FUROSEMIDE 10 MG/ML 4 ML VIAL IV STA (18:29)
[2019-11-19] MEDS ORDERED: INSULIN REGULAR 100 UNIT/ML VIAL SQ ONE (18:31)
[2019-11-19 18:45] LABS: Appearance,Urine Clear (Clear); Bilirubin,Urine Negative (Negative); Blood,Urine Negative (Negative); Color,Urine Light Yellow; Glucose,Urine (UA) 4+ (Negative); Ketones,Urine Negative (Negative); Leukocyte Esterase,Urine Negative (Negative); Nitrite,Urine Negative (Negative); Protein,Urine Trace (Negative); Specific Gravity,Urine 1.012 (1.001-1.035); Urobilinogen,Urine <2.0 mg/dL (<2.0)
[2019-11-19] MEDS ORDERED: HYDROmorphone 1 MG/ML 1 ML SYRINGE IVP STA (18:51)
[2019-11-19] MEDS ORDERED: hydrALAZINE HCL 20 MG/ML 1 ML VIAL IVP STA (18:51)
--- NOTE | 2019-11-19 18:51 | ED ---
SOB HPI - General Chief Complaint: Shortness of Breath Stated Complaint: STANLEY Time Seen by Provider: 11/19/19 16:53 Source: patient Mode of arrival: ambulatory Limitations: no limitations - History of Present Illness Initial Comments: 59-year-old male with history of IVDU, HTN, IDDM, CAD, CHF with history of SOB x 3 days. Patient states that he has had shortness breath increasing for the past 2 days he noticed increased when yesterday it seemed to go down a tiny bit today. He states he doubled his Lasix he was recently decreased his Lasix by half per recommendation of PCP within the last few weeks. Patient states he had some vague chest pain yesterday that resolved. Patient states that the SOB worsened today. Patient denies cough, fevers, congestions, diarrhea, vomiting. Patient denies headaches, or body aches. Patient states that this feels similar to when he has had CHF exacerbations in the past. Upon arrival patient is slightly tachypneic. - Related Data Previous Rx's Medication Instructions Recorded Gabapentin 800 mg PO TID #20 tab 04/17/19 Aspirin 81 mg PO DAILY #30 chew 06/20/19 Azithromycin [Zithromax] 250 mg PO DAILY #3 tab 06/20/19 Carvedilol [Coreg] 6.25 mg PO BID-W/MEALS #60 tab 06/20/19 Furosemide [Lasix] 40 mg PO BID #60 tab 06/20/19 Lisinopril [Zestril] 10 mg PO DAILY #30 tab 06/20/19 Spironolactone [Aldactone] 25 mg PO DAILY #30 tab 06/20/19 Allergies Allergy/AdvReac Type Severity Reaction Status Date / Time Penicillins Allergy Unknown Verified 11/19/19 16:52 Childhood Review of Systems ROS Statement: Those systems with pertinent positive or pertinent negative responses have been documented in the HPI. ROS Other: All systems not noted in ROS Statement are negative. Past Medical History Past Medical History: Coronary Artery Disease (CAD), Heart Failure, COPD, CVA/TIA, Diabetes Mellitus, Hyperlipidemia, Hypertension, Myocardial Infarction ([place]) Additional Past Medical History / Comment(s): Pt recently admitted to [facility] on 03/27/19 CHF. Other Hx: Ischemic cardiomyopathy with EF in September 2018 at 35%, PVCs, chronic low back pain d/t vertebral fractures years ago as well as cervical pinched nerves, DDD, IDDM type II, neuropathy bilateral hands/legs and feet, hep c, Stroke 04/17, Hep C Last Myocardial Infarction Date:: October 2018 History of Any Multi-Drug Resistant Organisms: None Reported Past Surgical History: Cholecystectomy, Heart Catheterization, Heart Catheterization With Stent Additional Past Surgical History / Comment(s): R heel I&D, colonoscopy. Past Anesthesia/Blood Transfusion Reactions: No Reported Reaction Date of Last Stent Placement:: 2011 Past Psychological History: Anxiety, Bipolar, Depression Smoking Status: Current some day smoker Past Alcohol Use History: None Reported Past Drug Use History: Heroin, Marijuana - Past Family History Mother Family Medical History: Cancer Father Family Medical History: Coronary Artery Disease (CAD), Diabetes Mellitus, Hypertension General Exam - General Exam Comments Initial Comments: General: The patient is awake and alert, in no distress Eye: +3 mm pupils are equal, round and reactive to light, extra-ocular movements are intact. No nystagmus. There is normal conjunctiva bilaterally. No signs of icterus. Ears, nose, mouth and throat: There are moist mucous membranes and no oral lesions. Neck: The neck is supple, there is no tenderness or JVD. Cardiovascular: There is a regular rate and rhythm. No murmur, rub or gallop is appreciated. Respiratory: Respirations are mildly-labored, breath sounds are equal. No wheezes, stridor. Noted rales of b/l lung bases. Gastrointestinal: Soft, non-distended, non-tender abdomen without masses or organomegaly noted. There is no rebound or guarding present. Musculoskeletal: Normal ROM, no tenderness. Strength 5/5. Sensation intact. Radial and DP pulses equal bilaterally 2+. Neurological: A&O x 3. CN II-XII intact grossly, There are no obvious motor or sensory deficits. Coordination appears grossly intact. Speech is normal. Skin: Skin is warm and dry and no rashes or lesions are noted. LE edema. Psychiatric: Cooperative, appropriate mood & affect, normal judgment. Limitations: no limitations Course Vital Signs 11/19/19 11/19/19 11/19/19 16:51 17:21 18:48 Temperature 98.5 F Pulse Rate 105 H 110 H Respiratory 28 H 20 16 Rate Blood Pressure 140/87 152/104 O2 Sat by Pulse 99 108 H Oximetry Medical Decision Making - Medical Decision Making 59-year-old male presenting today for chief complaint of shortness of breath. Clinically patient appears as though he is fluid overloaded with the radiologist as well as bilateral lower extremity edema history of CHF. Patient is reporting mildly elevated in comparison with previous baselines BNP significantly elevated. Patient has questionable abnormality on CXR howevere cl inical picture does not appears consistent with a PNA, no fevers, no leukocytosis. Patient Given zosyn, however will hold fluids as I feel patient is fluid overloaded. I do not feel HR is elevated secondary to sepsis. Pt does not appear toxic. Patient given aspirin will trend troponin. Dr. Chicas who is familar with pt accepted patient admission.C ardiology on consultation. - Lab Data Result diagrams: 11/19/19 17:05 11/19/19 17:05 Lab Results 11/19/19 11/19/19 11/19/19 Range/Units 17:05 17:05 17:05 WBC 5.9 (3.8-10.6) k/uL RBC 4.48 (4.30-5.90) m/uL Hgb 13.8 (13.0-17.5) gm/dL Hct 43.2 (39.0-53.0) % MCV 96.5 (80.0-100.0) fL MCH 30.8 (25.0-35.0) pg MCHC 31.9 (31.0-37.0) g/dL RDW 13.0 (11.5-15.5) % Plt Count 161 (150-450) k/uL Neutrophils % 59 % Lymphocytes % 30 % Monocytes % 7 % Eosinophils % 2 % Basophils % 1 % Neutrophils # 3.5 (1.3-7.7) k/uL Lymphocytes # 1.8 (1.0-4.8) k/uL Monocytes # 0.4 (0-1.0) k/uL Eosinophils # 0.1 (0-0.7) k/uL Basophils # 0.1 (0-0.2) k/uL PT 10.9 (9.0-12.0) sec INR 1.1 (<1.2) APTT 26.7 (22.0-30.0) sec D-Dimer (<0.60) mg/L FEU Sodium 130 L (137-145) mmol/L Potassium 4.6 (3.5-5.1) mmol/L Chloride 93 L (98-107) mmol/L Carbon Dioxide 28 (22-30) mmol/L Anion Gap 9 mmol/L BUN 19 (9-20) mg/dL Creatinine 0.96 (0.66-1.25) mg/dL Est GFR (CKD-EPI)AfAm >90 (>60 ml/min/1.73 sqM) Est GFR (CKD-EPI)NonAf 86 (>60 ml/min/1.73 sqM) Glucose 510 H* (74-99) mg/dL Plasma Lactic Acid Adelso (0.7-2.0) mmol/L Calcium 8.7 (8.4-10.2) mg/dL Magnesium 1.7 (1.6-2.3) mg/dL Total Bilirubin 0.8 (0.2-1.3) mg/dL AST 55 (17-59) U/L ALT 54 H (4-49) U/L Alkaline Phosphatase 108 (38-126) U/L Troponin I (0.000-0.034) ng/mL NT-Pro-B Natriuret Pep pg/mL Total Protein 6.9 (6.3-8.2) g/dL Albumin 3.7 (3.5-5.0) g/dL Urine Color Urine Appearance (Clear) Urine pH (5.0-8.0) Ur Specific Hamilton (1.001-1.035) Urine Protein (Negative) Urine Glucose (UA) (Negative) Urine Ketones (Negative) Urine Blood (Negative) Urine Nitrite (Negative) Urine Bilirubin (Negative) Urine Urobilinogen (<2.0) mg/dL Ur Leukocyte Esterase (Negative) 11/19/19 11/19/19 11/19/19 Range/Units 17:05 17:05 17:05 WBC (3.8-10.6) k/uL RBC (4.30-5.90) m/uL Hgb (13.0-17.5) gm/dL Hct (39.0-53.0) % MCV (80.0-100.0) fL MCH (25.0-35.0) pg MCHC (31.0-37.0) g/dL RDW (11.5-15.5) % Plt Count (150-450) k/uL Neutrophils % % Lymphocytes % % Monocytes % % Eosinophils % % Basophils % % Neutrophils # (1.3-7.7) k/uL Lymphocytes # (1.0-4.8) k/uL Monocytes # (0-1.0) k/uL Eosinophils # (0-0.7) k/uL Basophils # (0-0.2) k/uL PT (9.0-12.0) sec INR (<1.2) APTT (22.0-30.0) sec D-Dimer (<0.60) mg/L FEU Sodium (137-145) mmol/L Potassium (3.5-5.1) mmol/L Chloride (98-107) mmol/L Carbon Dioxide (22-30) mmol/L Anion Gap mmol/L BUN (9-20) mg/dL Creatinine (0.66-1.25) mg/dL Est GFR (CKD-EPI)AfAm (>60 ml/min/1.73 sqM) Est GFR (CKD-EPI)NonAf (>60 ml/min/1.73 sqM) Glucose (74-99) mg/dL Plasma Lactic Acid Adel[place] 2.6 H* (0.7-2.0) mmol/L Calcium (8.4-10.2) mg/dL Magnesium (1.6-2.3) mg/dL Total Bilirubin (0.2-1.3) mg/dL AST (17-59) U/L ALT (4-49) U/L Alkaline Phosphatase (38-126) U/L Troponin I 0.037 H* (0.000-0.034) ng/mL NT-Pro-B Natriuret Pep 7540 pg/mL Total Protein (6.3-8.2) g/dL Albumin (3.5-5.0) g/dL Urine Color Urine Appearance (Clear) Urine pH (5.0-8.0) Ur Specific [place] (1.001-1.035) Urine Protein (Negative) Urine Glucose (UA) (Negative) Urine Ketones (Negative) Urine Blood (Negative) Urine Nitrite (Negative) Urine Bilirubin (Negative) Urine Urobilinogen (<2.0) mg/dL Ur Leukocyte Esterase (Negative) 11/19/19 11/19/19 Range/Units 17:05 18:22 WBC (3.8-10.6) k/uL RBC (4.30-5.90) m/uL Hgb (13.0-17.5) gm/dL Hct (39.0-53.0) % MCV (80.0-100.0) fL MCH (25.0-35.0) pg MCHC (31.0-37.0) g/dL RDW (11.5-15.5) % Plt Count (150-450) k/uL Neutrophils % % Lymphocytes % % Monocytes % % Eosinophils % % Basophils % % Neutrophils # (1.3-7.7) k/uL Lymphocytes # (1.0-4.8) k/uL Monocytes # (0-1.0) k/uL Eosinophils # (0-0.7) k/uL Basophils # (0-0.2) k/uL PT (9.0-12.0) sec INR (<1.2) APTT (22.0-30.0) sec D-Dimer 0.45 (<0.60) mg/L FEU Sodium (137-145) mmol/L Potassium (3.5-5.1) mmol/L Chloride (98-107) mmol/L Carbon Dioxide (22-30) mmol/L Anion Gap mmol/L BUN (9-20) mg/dL Creatinine (0.66-1.25) mg/dL Est GFR (CKD-EPI)AfAm (>60 ml/min/1.73 sqM) Est GFR (CKD-EPI)NonAf (>60 ml/min/1.73 sqM) Glucose (74-99) mg/dL Plasma Lactic Acid Ad[place] (0.7-2.0) mmol/L Calcium (8.4-10.2) mg/dL Magnesium (1.6-2.3) mg/dL Total Bilirubin (0.2-1.3) mg/dL AST (17-59) U/L ALT (4-49) U/L Alkaline Phosphatase (38-126) U/L Troponin I (0.000-0.034) ng/mL NT-Pro-B Natriuret Pep pg/mL Total Protein (6.3-8.2) g/dL Albumin (3.5-5.0) g/dL Urine Color Light Yellow Urine Appearance Clear (Clear) Urine pH 7.0 (5.0-8.0) Ur Specific [place] 1.012 (1.001-1.035) Urine Protein Trace H (Negative) Urine Glucose (UA) 4+ H (Negative) Urine Ketones Negative (Negative) Urine Blood Negative (Negative) Urine Nitrite Negative (Negative) Urine Bilirubin Negative (Negative) Urine Urobilinogen <2.0 (<2.0) mg/dL Ur Leukocyte Esterase Negative (Negative) Disposition Clinical Impression: Hyperglycemia, SOB (shortness of breath), Elevated brain natriuretic peptide (BNP) level, Troponin level elevated Disposition: ADMITTED IP TO THIS [facility] Condition: Serious Is patient prescribed a controlled substance at d/c from ED?: No Referrals: Dave Burciaga MD [Primary Care Provider] - 1-2 days Time of Disposition: 18:51 Decision to Admit Reason: Admit from EC Decision Date: 11/19/19 Decision Time: 18:51
[2019-11-19] MEDS ORDERED: NITROGLYCERIN SL TABS 0.4 MG TAB SUBLINGUAL PRN (18:59)
[2019-11-19 20:37] LABS: Glucose,Whole Blood 377 mg/dL (75-99)
[2019-11-19] MEDS ORDERED: KETOROLAC 30 MG/ML 1 ML VIAL IM PRN (22:51)
[2019-11-20 06:47] LABS: Glucose,Whole Blood 288 mg/dL (75-99)
[2019-11-20] MEDS: INSULIN ASPART (NovoLOG) 100 UNIT/ML VIAL SQ SCH ×4 (06:48→22:18)
[2019-11-20 06:58] LABS: Cholesterol 154 mg/dL (<200); HDL Cholesterol 55 mg/dL (40-60); LDL Cholesterol,Calculated 74 mg/dL (0-99); Triglycerides 127 mg/dL (<150)
[2019-11-20] MEDS: LISINOPRIL 10 MG TAB PO SCH (08:58)
[2019-11-20] MEDS: GABAPENTIN 400 MG CAP PO SCH ×3 (08:58→22:18)
[2019-11-20] MEDS: ASPIRIN 81 MG PO SCH (08:58)
[2019-11-20] MEDS: CARVEDILOL 6.25 MG TAB PO SCH (08:58)
[2019-11-20] MEDS ORDERED: FUROSEMIDE 40 MG TAB PO SCH (09:00)
[2019-11-20] MEDS ORDERED: ASPIRIN 325 MG TAB PO SCH (09:00)
--- NOTE | 2019-11-20 11:42 | P.CRDCN ---
History of Present Illness History of present illness: [facility] This is [facility]. Catherine dictating a consult on this patient The patient was interviewed and examined by me IMPRESSION / ASSESSMENT: Mild congestive heart failure, systolic Possible pneumonitis Known cardiac myopathy Type 2 diabetes, uncontrolled Borderline troponins History of hepatitis C with near normal liver function tests PLAN: 2-D echo and Doppler study to assess for extraction function Increase Lasix to 40 mg twice daily Add spironolactone 25 mg by mouth daily Continue treatment for pneumonitis Assessment of abdominal pain per PCP start statins, Pravachol 20 mg by mouth daily Workup of ischemic heart disease after treatment pneumonitis in heart failure HPI 59-year-old male patient with a history of IV drug use, hypertension, diabetes, and CHF by history Presenting with increasing shortness of breath for the last 2 days His primary care physician reduced the dose of Lasix over the last few weeks, ? Reason Patient became more short of breath over last several days and went back on his usual dose of Lasix Complaining of shortness of breath Borderline troponins ROS: No fever chills or rigors, no cough, phlegm or expectoration, no nausea, vomiting or diarrhea, no hematuria, dysuria, no musculoskeletal complaints, no strokes or seizures, no skin lesions. EXAMINATION: Blood pressure 121/86. Pulse rate in the 90s Short of breath, respirations 18 No JVD line mild lower extremity edema Heart sounds are normal no murmurs Decreased breath sounds bilaterally with crackles on the right side Mild abdominal tenderness, right upper quadrant REVIEW OF LABS, ECG & MEDICAL DATA Right infrahilar opacity possible pneumonia Twelve-lead ECG shows sinus tachycardia biphasic P wave in V1, narrow QRS normal [place] [address] depression with T-wave inversions lead 1 aVL and V6 White count 5.9 hemoglobin 13.8 F: 161,000 Normal d-dimer Borderline troponins flat pattern Low sodium 1:30, normal potassium line elevated glucose of 510 History of diabetes not on statins, currently on lisinopril Lasix 40 mg daily carvedilol, baby aspirin Past Medical History Past Medical History: Coronary Artery Disease (CAD), Heart Failure, COPD, CVA/TIA, Diabetes Mellitus, Hyperlipidemia, Hypertension, Myocardial Infarction ([place]) Additional Past Medical History / Comment(s): Pt recently admitted to [facility] on 03/27/19 CHF. Other Hx: Ischemic cardiomyopathy with EF in September 2018 at 35%, PVCs, chronic low back pain d/t vertebral fractures years ago as well as cervical pinched nerves, DDD, IDDM type II, neuropathy bilateral hands/legs and feet, hep c, Stroke 04/17, Hep C Last Myocardial Infarction Date:: October 2018 History of Any Multi-Drug Resistant Organisms: None Reported Past Surgical History: Cholecystectomy, Heart Catheterization, Heart Catheterization With Stent Additional Past Surgical History / Comment(s): R heel I&D, colonoscopy. Past Anesthesia/Blood Transfusion Reactions: No Reported Reaction Date of Last Stent Placement:: 2011 Past Psychological History: Anxiety, Bipolar, Depression Additional Psychological History / Comment(s): Pt resides alone in an apartment. He has a glucometer, walker and a cane Smoking Status: Current some day smoker Past Alcohol Use History: None Reported Additional Past Alcohol Use History / Comment(s): Pt started smoking in 1976 and states a pack will last one month. Past Drug Use History: Heroin, Marijuana Additional Drug Use History / Comment(s): Pt states he injected heroin yesterday, 06/16/19. He states he smokes marijuana occasionally. - Past Family History Mother Family Medical History: Cancer Father Family Medical History: Coronary Artery Disease (CAD), Diabetes Mellitus, Hypertension Medications and Allergies Home Medications Medication Instructions Recorded Confirmed Type RX: Gabapentin 800 mg PO TID #20 tab 04/17/19 11/19/19 Rx RX: Aspirin 81 mg PO DAILY #30 chew 06/20/19 11/19/19 Rx RX: Lisinopril [Zestril] 10 mg PO DAILY #30 tab 06/20/19 11/19/19 Rx Ergocalciferol [Vitamin D2] 50,000 unit PO FR 11/19/19 11/19/19 History HYDROcodone/APAP 7.5-325MG [[place] 1 tab PO TID 11/19/19 11/19/19 History 7.5-325] INSULIN LISPRO (HumaLOG) [humaLOG] See Protocol SQ AC-TID 11/19/19 11/19/19 History Insulin Glargine,Hum.rec.anlog 30 unit SQ HS 11/19/19 11/19/19 History [Basaglar Dipen U-100] RX: Carvedilol [Coreg] 6.25 mg PO DAILY 11/19/19 11/19/19 History RX: Furosemide [Lasix] 40 mg PO DAILY 11/19/19 11/19/19 History Allergies Allergy/AdvReac Type Severity Reaction Status Date / Time Penicillins Allergy Unknown Verified 11/19/19 19:06 Childhood Physical Exam Vitals: Vital Signs Temp Pulse Pulse Resp BP BP Pulse Ox 11/20/19 08:00 98.6 F 92 14 138/83 95 11/20/19 04:00 96 18 121/86 95 11/20/19 00:00 96 16 142/88 95 11/19/19 20:00 86 18 11/19/19 19:49 98.3 F 86 18 138/88 97 11/19/19 19:03 153/80 11/19/19 18:48 110 H 16 152/104 108 H 11/19/19 17:21 20 11/19/19 16:51 98.5 F 105 H 28 H 140/87 99 Intake and Output 11/19/19 11/20/19 11/20/19 22:59 06:59 14:59 Intake Total 100 240 Balance 100 240 Intake: Intake, IV Titration 100 Amount cefTRIAXone 1 gm In 100 Sodium Chloride 0.9% 50 ml @ 100 mls/hr IVPB ONCE STA Rx#:[id number] Oral 240 Other: # Voids 1 2 Weight 63.503 kg 64.7 kg Results 11/19/19 17:05 11/19/19 17:05 Cardiac Enzymes 11/19/19 11/19/19 11/19/19 Range/Units 17:05 17:05 23:21 AST 55 (17-59) U/L Troponin I 0.037 H* 0.045 H* (0.000-0.034) ng/mL 11/20/19 Range/Units 05:39 AST (17-59) U/L Troponin I 0.046 H* (0.000-0.034) ng/mL Coagulation 11/19/19 Range/Units 17:05 PT 10.9 (9.0-12.0) sec APTT 26.7 (22.0-30.0) sec Lipids 11/20/19 Range/Units 05:39 Triglycerides 127 (<150) mg/dL Cholesterol 154 (<200) mg/dL HDL Cholesterol 55 (40-60) mg/dL CBC 05/22/20 Range/Units 17:05 WBC 5.9 (3.8-10.6) k/uL RBC 4.48 (4.30-5.90) m/uL Hgb 13.8 (13.0-17.5) gm/dL Hct 43.2 (39.0-53.0) % Plt Count 161 (150-450) k/uL Comprehensive Metabolic Panel 11/19/19 Range/Units 17:05 Sodium 130 L (137-145) mmol/L Potassium 4.6 (3.5-5.1) mmol/L Chloride 93 L (98-107) mmol/L Carbon Dioxide 28 (22-30) mmol/L BUN 19 (9-20) mg/dL Creatinine 0.96 (0.66-1.25) mg/dL Glucose 510 H* (74-99) mg/dL Calcium 8.7 (8.4-10.2) mg/dL AST 55 (17-59) U/L ALT 54 H (4-49) U/L Alkaline Phosphatase 108 (38-126) U/L Total Protein 6.9 (6.3-8.2) g/dL Albumin 3.7 (3.5-5.0) g/dL Current Medications Generic Name Dose Route Start Last Admin Trade Name Freq PRN Reason Stop Dose Admin Aspirin 81 mg 11/20/19 09:00 11/20/19 08:58 Aspirin PO 81 mg DAILY [facility] Administration Carvedilol 6.25 mg 11/20/19 09:00 11/20/19 08:58 Coreg PO 6.25 mg DAILY [facility] Administration Furosemide 40 mg 11/20/19 09:00 11/20/19 08:58 Lasix PO 40 mg DAILY [facility] Administration Gabapentin 800 mg 11/20/19 09:00 11/20/19 08:58 Neurontin PO 800 mg TID [facility] Administration Insulin Aspart 0 unit 11/20/19 07:30 11/20/19 06:48 Novolog SQ Not Given [facility] Protocol Insulin Detemir 30 unit 11/20/19 21:00 Levemir SQ HS [facility] Ketorolac Tromethamine 30 mg 11/19/19 22:51 Toradol IM 11/24/19 22:52 Q6HR PRN Pain Lisinopril 10 mg 11/20/19 09:00 11/20/19 08:58 Zestril PO 10 mg DAILY [facility] Administration Nitroglycerin 0.4 mg 11/19/19 18:59 Nitrostat SUBLINGUAL Q5M PRN Chest Pain Intake and Output 11/19/19 11/20/19 11/20/19 22:59 06:59 14:59 Intake Total 100 240 Balance 100 240 Intake: Intake, IV Titration 100 Amount cefTRIAXone 1 gm In 100 Sodium Chloride 0.9% 50 ml @ 100 mls/hr IVPB ONCE STA Rx#:[id number] Oral 240 Other: # Voids 1 2 Weight 63.503 kg 64.7 kg 11/19/19 17:05 11/19/19 17:05
[2019-11-20 11:55] LABS: Glucose,Whole Blood 265 mg/dL (75-99)
[2019-11-20] MEDS: SPIRONOLACTONE 25 MG TAB PO SCH (12:02)
[2019-11-20] MEDS: PRAVASTATIN SODIUM 20 MG TAB PO SCH (12:02)
--- NOTE | 2019-11-20 13:13 | PN ---
PROGRESS NOTE DATE OF SERVICE: 11/20/2019. CHIEF COMPLAINT: Chest pain and congestive heart failure. HISTORY OF PRESENT ILLNESS: This gentleman continues to have chest pain, but shortness of breath is improved. He is being seen by Cardiology. Blood sugars are slightly elevated. Troponins are also positive. PHYSICAL EXAMINATION: Blood pressure is 138/83. Head, ears, eyes, nose, mouth, and throat are normal. Chest is clear. The cardiac exam is normal. Abdomen is soft. IMPRESSION: 1. Chest pain. 2. Probable and ST elevation myocardial infarction. 3. Elevated blood sugars. PLAN: Await further recommendations from Cardiology. MMODL / IJN: [id number] /
[2019-11-20 17:42] LABS: Glucose,Whole Blood 472 mg/dL (75-99)
[2019-11-20] MEDS: FUROSEMIDE 40 MG TAB PO SCH (17:51)
[2019-11-20] MEDS ORDERED: INSULIN DETEMIR (LEVEMIR) 100 UNIT/ML SYR SQ SCH (21:00)
[2019-11-20 21:10] LABS: Glucose,Whole Blood 150 mg/dL (75-99)
[2019-11-21 02:21] VITALS: RESP 18
[2019-11-21] MEDS: INSULIN ASPART (NovoLOG) 100 UNIT/ML VIAL SQ SCH ×2 (06:09→12:32)
[2019-11-21 06:11] LABS: Glucose,Whole Blood 97 mg/dL (75-99)
[2019-11-21] MEDS: GABAPENTIN 400 MG CAP PO SCH (08:05)
[2019-11-21] MEDS: FUROSEMIDE 40 MG TAB PO SCH (08:05)
[2019-11-21] MEDS: LISINOPRIL 10 MG TAB PO SCH (08:06)
[2019-11-21] MEDS: SPIRONOLACTONE 25 MG TAB PO SCH (08:06)
[2019-11-21] MEDS: PRAVASTATIN SODIUM 20 MG TAB PO SCH (08:06)
[2019-11-21] MEDS: ASPIRIN 81 MG PO SCH (08:06)
[2019-11-21] MEDS: CARVEDILOL 6.25 MG TAB PO SCH (08:06)
[2019-11-21 11:21] LABS: Glucose,Whole Blood 243 mg/dL (75-99)
[2019-11-21 12:07] VITALS: BMI 20.4
--- NOTE | 2019-11-21 12:29 | P.PN ---
Subjective Patient admitted with mild CHF exacerbation Also has mild pneumonitis is being treated for it. He is known cardiac myopathy Yesterday we increased the Lasix to 40 mg twice daily and added spironolactone We also started Pravachol 20 mg by mouth daily Patient frustrated about not getting his pain medications Complaining of back pain Complaining of shortness of breath at night but today he's been walking around the room and to the bathroom and does not appear short of breath Today on examination blood pressure is 133/61 and 140/71 mmHg he is afebrile 98.5F pulse rate in the 80s respirations nonlabored Clear lungs Normal heart sounds Abdomen soft nontender line no lower extremity edema No JVD No labs today Plan Continue aspirin carvedilol Lasix lisinopril and Pravachol as per electronic BMP today to check BUN and creatinine and potassium We'll look at his 2-D echo today Once his pneumonitis is treated he needs a workup for is ischemic heart disease If he is stable he may go to his primary rn plasma center and get it done next week as long as he is stable and is walking around the room without any exertional symptoms His new medications must continue including aspirin carvedilol Lasix lisinopril Pravachol I will check his BMP today since I added several medications yesterday Objective - Vital Signs Vital signs: Vital Signs Temp 98.5 F 11/21/19 08:00 Pulse 81 11/21/19 08:00 Resp 18 11/21/19 08:00 BP 114/71 11/21/19 08:00 Pulse Ox 95 11/21/19 08:00 Intake & Output 11/20/19 11/21/19 11/21/19 18:59 06:59 18:59 Intake Total 1280 957 400 Balance 1280 957 400 Weight 64.5 kg 64.5 kg Intake: Oral 1280 957 400 Other: # Voids 2 3 - Labs CBC & Chem 7: 11/19/19 17:05 11/19/19 17:05 Labs: Abnormal Lab Results - Last 24 Hours (Table) 11/20/19 11/20/19 11/21/19 Range/Units 17:27 21:09 11:19 POC Glucose (mg/dL) 472 H 150 H 243 H (75-99) mg/dL Microbiology - Last 24 Hours (Table) 11/19/19 18:33 Blood Culture - Preliminary Blood No Growth after 24 hours
[2019-11-21 12:35] VITALS: BP 98/61; PULSE 79; TEMP 98.4
[2019-11-21 13:37] LABS: African American GFR (CKD) >90 (>60 ml/min/1.73 sqM); Anion Gap 7 mmol/L; Blood Urea Nitrogen 29 mg/dL (9-20); Calcium 8.3 mg/dL (8.4-10.2); Carbon Dioxide 29 mmol/L (22-30); Chloride 94 mmol/L (98-107); Glucose 261 mg/dL (74-99); Non-African American GFR(CKD) 82 (>60 ml/min/1.73 sqM); Potassium 4.3 mmol/L (3.5-5.1); Sodium 130 mmol/L (137-145)
--- NOTE | 2019-11-21 23:08 | DS ---
DISCHARGE SUMMARY CHIEF COMPLAINT: Chest complaint and shortness of breath. The to the details of this man's history and physical can be found in the initial workup. LABORATORY STUDIES: While he was in a hospital he had laboratory studies, details of which can be found in the laboratory section of his chart. COURSE IN HOSPITAL: After admission he was placed on bedrest and started on intravenous fluids and management of his congestive heart failure. He was seen by Cardiology. Further studies were planned, but the patient signed out AGAINST MEDICAL ADVICE. FINAL DIAGNOSES: 1. Acute congestive heart failure. 2. Chronic diastolic congestive heart failure. 3. Atherosclerotic cardiomyopathy. 4. Chronic obstructive pulmonary disease. 5. History of substance abuse. OPERATIONS: None. CONSULTATION: Cardiology. He signed out AMA. MMODL / IJN: [id number] /
--- NOTE | 2019-11-23 22:18 | HP ---
HISTORY AND PHYSICAL Second dictation DATE OF ADMISSION: 11/19/2019 CHIEF COMPLAINT: Shortness of breath and chest pain. HISTORY OF PRESENT ILLNESS: This gentleman presented to the emergency room with shortness of breath and chest pain. In the emergency room it was felt that he was in congestive heart failure and he was admitted. REVIEW OF SYSTEMS: I do not recall. Past medical history, family history, and personal and social histories: I do not recall. PHYSICAL EXAMINATION: Blood pressure was in the range of 115/70. Other vital signs I do not recall. On exam, skin was dry. He was dehydrated. Head, ears, eyes, nose, mouth and throat were normal. Neck veins were distended. Chest demonstrated poor breath sounds due to his emphysema. Cardiac exam demonstrated tachycardia. Abdomen was soft and nontender. Extremities were normal. Neurologically he was intact. He was admitted to the hospital with the diagnoses: 1. Congestive heart failure. 2. Chest pain. Rule out myocardial infarction. 3. Chronic obstructive pulmonary disease. 4. Alcoholism. 5. History of substance abuse. PLAN: 1. Bed rest. 2. IV fluids. 3. Diuresis. 4. Consult with Cardiology. MMODL / IJN: [id number] /
--- NOTE | 2019-11-26 17:08 | ECHOF ---
Referral Reason:Heart failure MEASUREMENTS -------- HEIGHT: 177.8 cm WEIGHT: 64.4 kg BP: 138/83 IVSd: 1.2 cm (0.6 - 1.1) LVIDd: 5.1 cm (3.9 - 5.3) LVPWd: 1.7 cm (0.6 - 1.1) IVSs: 1.6 cm LVIDs: 4.5 cm LVPWs: 1.7 cm RVIDd: 4.0 cm (< 3.3) LAESV Index (A-L): 26.81 ml/m Ao Diam: 2.7 cm (2.0 - 3.7) AV Cusp: 1.2 cm (1.5 - 2.6) EPSS: 1.7 cm AV maxP.38 mmHg AV meanP.67 mmHg RAP: 5.00 mmHg RVSP: 21.28 mmHg MV EF SLOPE: 111.62 mm/s (70 - 150) MV EXCURSION: 17.61 mm (> 18.000) FINDINGS -------- Sinus rhythm. This was a technically adequate study. The left ventricular size is normal. There is mild concentric left ventricular hypertrophy. There is severe global hypokinesis of LV . Overall left ventricular systolic function is severely impair ed with, an EF between 20 - 25 %. Mitral Doppler inflow pattern suggests diastolic filling abnormal ity {E/E'}. The right ventricle is mild to moderately enlarged. Normal LA size by volume 22+/-6 ml/m2. The right atrium is mildly enlarged. Interatrial and interventricular septum intact. There is moderate aortic valve sclerosis. There is no evidence of aortic regurgitation. There is no evidence of aortic stenosis. Peak/mean gradient across the Aortic Valve is 14.38mmHg / 6.67mmHg. Mild mitral annular calcification present. Mild mitral regurgitation is present. Mild tricuspid regurgitation present. There is no evidence of pulmonary hypertension. The right v entricular systolic pressure, as measured by Doppler, is 21.28mmHg. There is no pulmonic regurgitation present. The aortic root size is normal. Normal inferior vena cava with normal inspiratory collapse consistent with estimated right atrial pre ssure of 5 mmHg. There is no pericardial effusion. CONCLUSIONS -------- 1. Sinus rhythm. 2. This was a technically adequate study. 3. The left ventricular size is normal. 4. There is mild concentric left ventricular hypertrophy. 5. There is severe global hypokinesis of LV . 6. Overall left ventricular systolic function is severely impaired with, an EF between 20 - 25 %. 7. Mitral Doppler inflow pattern suggest diastolic filling abnormality {E/E'}. 8. The right ventricle is mild to moderately enlarged. 9. Normal LA size by volume 22+/-6 ml/m2. 10. The right atrium is mildly enlarged. 11. Interatrial and interventricular septum intact. 12. There is moderate aortic valve sclerosis. 13. There is no evidence of aortic regurgitation. 14. There is no evidence of aortic stenosis. 15. Peak/mean gradient across the Aortic Valve is 14.38mmHg / 6.67mmHg. 16. Mild mitral annular calcification present. 17. Mild mitral regurgitation is present. 18. Mild tricuspid regurgitation present. 19. There is no evidence of pulmonary hypertension. 20. The right ventricular systolic pressure, as measured by Doppler, is 21.28mmHg. 21. There is no pulmonic regurgitation present. 22. The aortic root size is normal. 23. Normal inferior vena cava with normal inspiratory collapse consistent with estimated right atrial pressure of 5 mmHg. 24. There is no pericardial effusion. DYNAMITE RECLAIMER: Nicole Méndez RDCS
== END 2019-11-21 14:45 | disposition left against medical advice (07) ==
LOC: EC 16:48 → INTOOBSV 18:31 → 3SCARD 18:31 → UNDODISIN 11-21 14:45
PROVIDERS: ADMIT Family Medicine; ATTEND Family Medicine
DX: I11.0 Hypertensive heart disease with heart failure (principal); I50.33 Acute on chronic diastolic (congestive) heart failure; J44.0 Chronic obstructive pulmonary disease with (acute) lower respiratory infection; J18.9 Pneumonia, unspecified organism; E11.65 Type 2 diabetes mellitus with hyperglycemia; E11.42 Type 2 diabetes mellitus with diabetic polyneuropathy; E78.5 Hyperlipidemia, unspecified; I25.10 Atherosclerotic heart disease of native coronary artery without angina pectoris; I25.2 Old myocardial infarction; I25.5 Ischemic cardiomyopathy; B19.20 Unspecified viral hepatitis C without hepatic coma; E86.0 Dehydration; F10.20 Alcohol dependence, uncomplicated; F31.9 Bipolar disorder, unspecified; F41.9 Anxiety disorder, unspecified; G89.29 Other chronic pain; M54.5 Low back pain; Z20.828 Contact with and (suspected) exposure to other viral communicable diseases; F17.210 Nicotine dependence, cigarettes, uncomplicated; Z79.4 Long term (current) use of insulin; Z79.891 Long term (current) use of opiate analgesic; Z79.82 Long term (current) use of aspirin; Z79.899 Other long term (current) drug therapy; Z88.0 Allergy status to penicillin; Z86.73 Personal history of transient ischemic attack (TIA), and cerebral infarction without residual deficits; Z87.81 Personal history of (healed) traumatic fracture; Z53.29 Procedure and treatment not carried out because of patient's decision for other reasons; Z87.898 Personal history of other specified conditions; Z95.5 Presence of coronary angioplasty implant and graft; Z90.49 Acquired absence of other specified parts of digestive tract; Z80.9 Family history of malignant neoplasm, unspecified; Z83.3 Family history of diabetes mellitus; Z82.49 Family history of ischemic heart disease and other diseases of the circulatory system
CPT/HCPCS: 93005 ×2; 96365; 96375; 99285; 36415; 93306; 85379; 83880; 80061; 80053; 80048; 83605; 83735; 84484 ×2; 85025; 85610; 85730; 81003; 87040; 87635; 71046; G0378 ×3; J1940; J0696; J2270; J1170

== ENCOUNTER 2019-12-08 07:22 | Observation (INO) | payer OTHER ==
[2019-12-08] MEDS ORDERED: IPRATROPIUM-ALBUTEROL 3 ML NEB INHALATION STA (07:35)
--- NOTE | 2019-12-08 07:46 | ED ---
General Adult HPI - General Chief complaint: Shortness of Breath Stated complaint: SOB Time Seen by Provider: 12/08/19 07:23 Source: patient, RN notes reviewed, old records reviewed Mode of arrival: ambulatory Limitations: no limitations - History of Present Illness Initial comments: Patient is a pleasant 59-year-old male presenting to the emergency department with difficulty in breathing. Onset of symptoms was a few days ago. Patient states he still smokes however is decreasing the amount. Patient does cough with occasional yellow sputum. Patient has mild leg swelling. No fevers. No chest pain. Patient requests narcotics for his chronic pain. - Related Data Home Medications Medication Instructions Recorded Confirmed Carvedilol [Coreg] 6.25 mg PO DAILY 11/19/19 11/19/19 Ergocalciferol [Vitamin D2] 50,000 unit PO FR 11/19/19 11/19/19 Furosemide [Lasix] 40 mg PO DAILY 11/19/19 11/19/19 HYDROcodone/APAP 7.5-325MG [[place] 1 tab PO TID 11/19/19 11/19/19 7.5-325] INSULIN LISPRO (HumaLOG) [humaLOG] See Protocol SQ AC-TID 11/19/19 11/19/19 Insulin Glargine,Hum.rec.anlog 30 unit SQ HS 11/19/19 11/19/19 [Basaglar Kwikpen U-100] Previous Rx's Medication Instructions Recorded Gabapentin 800 mg PO TID #20 tab 04/17/19 Aspirin 81 mg PO DAILY #30 chew 06/20/19 Lisinopril [Zestril] 10 mg PO DAILY #30 tab 06/20/19 Allergies Allergy/AdvReac Type Severity Reaction Status Date / Time Penicillins Allergy Unknown Verified 12/08/19 07:28 Childhood Review of Systems ROS Statement: Those systems with pertinent positive or pertinent negative responses have been documented in the HPI. ROS Other: All systems not noted in ROS Statement are negative. Constitutional: Denies: fever Eyes: Denies: eye pain ENT: Denies: ear pain Respiratory: Reports: cough, dyspnea Cardiovascular: Denies: chest pain Endocrine: Reports: fatigue Gastrointestinal: Denies: abdominal pain Genitourinary: Denies: dysuria Musculoskeletal: Denies: arthralgia Skin: Denies: rash Neurological: Denies: weakness Past Medical History Past Medical History: Coronary Artery Disease (CAD), Heart Failure, COPD, CVA/TIA, Diabetes Mellitus, Hyperlipidemia, Hypertension, Myocardial Infarction ([place]) Additional Past Medical History / Comment(s): Pt recently admitted to [facility] on 03/27/19 CHF. Other Hx: Ischemic cardiomyopathy with EF in September 2018 at 35%, PVCs, chronic low back pain d/t vertebral fractures years ago as well as cervical pinched nerves, DDD, IDDM type II, neuropathy bilateral hands/legs and feet, hep c, Stroke 04/17, Hep C Last Myocardial Infarction Date:: October 2018 History of Any Multi-Drug Resistant Organisms: None Reported Past Surgical History: Cholecystectomy, Heart Catheterization, Heart Catheterization With Stent Additional Past Surgical History / Comment(s): R heel I&D, colonoscopy. Past Anesthesia/Blood Transfusion Reactions: No Reported Reaction Date of Last Stent Placement:: 2011 Past Psychological History: Anxiety, Bipolar, Depression Smoking Status: Current some day smoker Past Alcohol Use History: None Reported Past Drug Use History: Heroin, Marijuana - Past Family History Mother Family Medical History: Cancer Father Family Medical History: Coronary Artery Disease (CAD), Diabetes Mellitus, Hypertension General Exam Limitations: no limitations General appearance: alert, in no apparent distress Head exam: Present: normocephalic Eye exam: Present: normal appearance Neck exam: Present: normal inspection Respiratory exam: Present: rhonchi Cardiovascular Exam: Present: regular rate, normal rhythm GI/Abdominal exam: Present: soft. Absent: tenderness Extremities exam: Present: pedal edema (Trace bilateral). Absent: calf tenderness Neurological exam: Present: alert Psychiatric exam: Present: normal affect, normal mood Skin exam: Present: normal color, other (Multiple skin popping scars) Course Vital Signs 12/08/19 12/08/19 12/08/19 07:23 08:16 08:25 Temperature 97.9 F Pulse Rate 97 96 96 Respiratory 22 Rate Blood Pressure 133/94 O2 Sat by Pulse 100 Oximetry 12/08/19 08:57 Temperature Pulse Rate 99 Respiratory 20 Rate Blood Pressure 144/100 O2 Sat by Pulse 100 Oximetry EKG Findings - EKG Comments: EKG Findings:: Normal sinus rhythm 98. MT 160. QRS 86. QT 368. QTC 469. Normal axis. Normal QRS. Lateral T wave inversion. Previous EKGs reviewed. Medical Decision Making - Medical Decision Making Patient reevaluated and is somewhat improved. Patient updated on results and plan. Case was discussed in detail with Dr. Mccarty, who will admit for hospital call. - Lab Data Result diagrams: 12/08/19 07:39 12/08/19 07:39 Lab Results 12/08/19 12/08/19 12/08/19 Range/Units 07:39 07:39 07:39 WBC 7.3 (3.8-10.6) k/uL RBC 4.13 L (4.30-5.90) m/uL Hgb 13.0 (13.0-17.5) gm/dL Hct 39.5 (39.0-53.0) % MCV 95.7 (80.0-100.0) fL MCH 31.5 (25.0-35.0) pg MCHC 33.0 (31.0-37.0) g/dL RDW 13.3 (11.5-15.5) % Plt Count 155 (150-450) k/uL Neutrophils % 57 % Lymphocytes % 32 % Monocytes % 7 % Eosinophils % 2 % Basophils % 1 % Neutrophils # 4.1 (1.3-7.7) k/uL Lymphocytes # 2.3 (1.0-4.8) k/uL Monocytes # 0.5 (0-1.0) k/uL Eosinophils # 0.2 (0-0.7) k/uL Basophils # 0.0 (0-0.2) k/uL PT 11.3 (9.0-12.0) sec INR 1.1 (<1.2) APTT 26.6 (22.0-30.0) sec Sodium 132 L (137-145) mmol/L Potassium 5.0 (3.5-5.1) mmol/L Chloride 103 (98-107) mmol/L Carbon Dioxide 23 (22-30) mmol/L Anion Gap 6 mmol/L BUN 16 (9-20) mg/dL Creatinine 0.72 (0.66-1.25) mg/dL Est GFR (CKD-EPI)AfAm >90 (>60 ml/min/1.73 sqM) Est GFR (CKD-EPI)NonAf >90 (>60 ml/min/1.73 sqM) Glucose 341 H (74-99) mg/dL Calcium 8.6 (8.4-10.2) mg/dL Total Bilirubin 1.2 (0.2-1.3) mg/dL AST 59 (17-59) U/L ALT 58 H (4-49) U/L Alkaline Phosphatase 104 (38-126) U/L Troponin I (0.000-0.034) ng/mL NT-Pro-B Natriuret Pep pg/mL Total Protein 7.1 (6.3-8.2) g/dL Albumin 3.7 (3.5-5.0) g/dL 12/08/19 12/08/19 Range/Units 07:39 07:39 WBC (3.8-10.6) k/uL RBC (4.30-5.90) m/uL Hgb (13.0-17.5) gm/dL Hct (39.0-53.0) % MCV (80.0-100.0) fL MCH (25.0-35.0) pg MCHC (31.0-37.0) g/dL RDW (11.5-15.5) % Plt Count (150-450) k/uL Neutrophils % % Lymphocytes % % Monocytes % % Eosinophils % % Basophils % % Neutrophils # (1.3-7.7) k/uL Lymphocytes # (1.0-4.8) k/uL Monocytes # (0-1.0) k/uL Eosinophils # (0-0.7) k/uL Basophils # (0-0.2) k/uL PT (9.0-12.0) sec INR (<1.2) APTT (22.0-30.0) sec Sodium (137-145) mmol/L Potassium (3.5-5.1) mmol/L Chloride (98-107) mmol/L Carbon Dioxide (22-30) mmol/L Anion Gap mmol/L BUN (9-20) mg/dL Creatinine (0.66-1.25) mg/dL Est GFR (CKD-EPI)AfAm (>60 ml/min/1.73 sqM) Est GFR (CKD-EPI)NonAf (>60 ml/min/1.73 sqM) Glucose (74-99) mg/dL Calcium (8.4-10.2) mg/dL Total Bilirubin (0.2-1.3) mg/dL AST (17-59) U/L ALT (4-49) U/L Alkaline Phosphatase (38-126) U/L Troponin I 0.057 H* (0.000-0.034) ng/mL NT-Pro-B Natriuret Pep 9240 pg/mL Total Protein (6.3-8.2) g/dL Albumin (3.5-5.0) g/dL - Radiology Data Radiology results: image reviewed (Chest x-ray shows interstitial lung disease. Improvement of right lower lobe opacity with some residual nodularity.) Disposition Clinical Impression: COPD exacerbation Disposition: ADMITTED IP TO THIS HOSP Is patient prescribed a controlled substance at d/c from ED?: No Referrals: Dave Burciaga MD [Primary Care Provider] - 1-2 days Decision Time: 09:26
[2019-12-08 07:52] LABS: Basophils % (A) 1 %; Eosinophils # (A) 0.2 k/uL (0-0.7); Eosinophils % (A) 2 %; HCT 39.5 % (39.0-53.0); Lymphocytes # (A) 2.3 k/uL (1.0-4.8); Lymphocytes % (A) 32 %; MCH 31.5 pg (25.0-35.0); MCV 95.7 fL (80.0-100.0); Mean Platelet Volume 9.4; Monocytes # (A) 0.5 k/uL (0-1.0); Monocytes % (A) 7 %; Neutrophils # (A) 4.1 k/uL (1.3-7.7); Neutrophils % (A) 57 %; Platelet Count 155 k/uL (150-450); RBC 4.13 m/uL (4.30-5.90); RDW 13.3 % (11.5-15.5); WBC 7.3 k/uL (3.8-10.6)
[2019-12-08 08:09] LABS: ALT 58 U/L (4-49); AST 59 U/L (17-59); African American GFR (CKD) >90 (>60 ml/min/1.73 sqM); Albumin 3.7 g/dL (3.5-5.0); Alkaline Phosphatase 104 U/L (38-126); Anion Gap 6 mmol/L; Blood Urea Nitrogen 16 mg/dL (9-20); Calcium 8.6 mg/dL (8.4-10.2); Carbon Dioxide 23 mmol/L (22-30); Chloride 103 mmol/L (98-107); Glucose 341 mg/dL (74-99); Non-African American GFR(CKD) >90 (>60 ml/min/1.73 sqM); Sodium 132 mmol/L (137-145); Total Bilirubin 1.2 mg/dL (0.2-1.3); Total Protein 7.1 g/dL (6.3-8.2)
[2019-12-08 08:11] LABS: INR 1.1 (<1.2); Partial Thromboplastin Time 26.6 sec (22.0-30.0); Prothrombin Time 11.3 sec (9.0-12.0)
--- NOTE | 2019-12-08 08:11 | XR ---
EXAMINATION TYPE: XR chest 2V DATE OF EXAM: 12/08/2019 COMPARISON: 11/19/2019 TECHNIQUE: PA and lateral views submitted. HISTORY: Shortness of breath FINDINGS: Hyperinflation of the lungs. Degenerative change of the spine. 7 mm nodular density along the lateral margin the right lower lobe. Coarsened interstitium and mild cardiomegaly. Hyperinflation suggests C OPD and there is degenerative change of the spine. IMPRESSION: 1. COPD correlate for chronic interstitial lung disease or fibrosis. 2. There is improved appearance to the density within the right lower lobe with a persistent 7 to 8 m m nodular density. Consider follow-up CT scan of the chest.
[2019-12-08] MEDS ORDERED: HYDROcodone/APAP 5-325MG 1 EACH TAB PO STA (08:15)
[2019-12-08] MEDS ORDERED: IPRATROPIUM-ALBUTEROL 3 ML NEB INHALATION PRN ×2 (09:26→11:22)
[2019-12-08] MEDS ORDERED: methylPREDNISolone SOD SUCCI 125 MG/2 ML VIAL IV STA (09:26)
[2019-12-08] MEDS ORDERED: FUROSEMIDE 10 MG/ML 4 ML VIAL IV STA (09:27)
[2019-12-08] MEDS ORDERED: ASPIRIN 81 MG PO STA (09:28)
[2019-12-08] MEDS ORDERED: NITROGLYCERIN SL TABS 0.4 MG TAB SUBLINGUAL PRN (09:28)
[2019-12-08] MEDS: AZITHROMYCIN 500 MG TAB PO SCH (09:46)
[2019-12-08] MEDS: IPRATROPIUM-ALBUTEROL 3 ML NEB INHALATION SCH ×3 (11:02→19:41)
[2019-12-08] MEDS ORDERED: NALOXONE 0.4 MG/ML 1 ML VIAL IV PRN (11:18)
--- NOTE | 2019-12-08 11:33 | P.HPIM ---
History of Present Illness H&P Date: 12/08/19 Chief Complaint: Shortness of breath 59-year-old male presented to the emergency department because of 2 days history of worsening chest pain and shortness of breath. He also has been having cough productive of white phlegm. No fevers or chills. No sick contacts. No nausea or vomiting. Patient states he still smokes however is decreasing the amount. He states he is down to 2 cigarettes a day currently. No nausea or vomiting. No diarrhea. No urinary symptoms. In the emergency department he was evaluated extensively, chest x-ray showed COPD and some fibrotic changes, EKG did not show any acute ST or T-wave changes. Labs revealed mild elevation in troponin at 0.057. Review of Systems Complete review of system performed, pertinent positives per HPI, otherwise negative Past Medical History Past Medical History: Coronary Artery Disease (CAD), Heart Failure, COPD, CVA/TIA, Diabetes Mellitus, Hyperlipidemia, Hypertension, Myocardial Infarction ([place]) Additional Past Medical History / Comment(s): Pt recently admitted to [facility] on 03/27/19 CHF. Other Hx: Ischemic cardiomyopathy with EF in September 2018 at 35%, PVCs, chronic low back pain d/t vertebral fractures years ago as well as cervical pinched nerves, DDD, IDDM type II, neuropathy bilateral hands/legs and feet, hep c, Stroke 04/17, Hep C Last Myocardial Infarction Date:: October 2018 History of Any Multi-Drug Resistant Organisms: None Reported Past Surgical History: Cholecystectomy, Heart Catheterization, Heart Catheterization With Stent Additional Past Surgical History / Comment(s): R heel I&D, colonoscopy. Past Anesthesia/Blood Transfusion Reactions: No Reported Reaction Date of Last Stent Placement:: 2011 Past Psychological History: Anxiety, Bipolar, Depression Smoking Status: Current some day smoker Past Alcohol Use History: None Reported Past Drug Use History: Heroin, Marijuana - Past Family History Mother Family Medical History: Cancer Father Family Medical History: Coronary Artery Disease (CAD), Diabetes Mellitus, Hypertension Medications and Allergies Home Medications Medication Instructions Recorded Confirmed Type Gabapentin 800 mg PO TID #20 tab 04/17/19 12/08/19 Rx Aspirin 81 mg PO DAILY #30 chew 06/20/19 12/08/19 Rx Lisinopril [Zestril] 10 mg PO DAILY #30 tab 06/20/19 12/08/19 Rx Carvedilol [Coreg] 6.25 mg PO DAILY 11/19/19 12/08/19 History Ergocalciferol [Vitamin D2] 50,000 unit PO FR 11/19/19 12/08/19 History Furosemide [Lasix] 40 mg PO DAILY 11/19/19 12/08/19 History HYDROcodone/APAP 7.5-325MG [[place] 1 tab PO TID 11/19/19 12/08/19 History 7.5-325] INSULIN LISPRO (HumaLOG) [humaLOG] See Protocol SQ AC-TID 11/19/19 12/08/19 History Insulin Glargine,Hum.rec.anlog 30 unit SQ HS 11/19/19 12/08/19 History [Basaglar Kwikpen U-100] Albuterol Sulfate [Ventolin HFA] 1 - 2 puff INHALATION RT-Q6H PRN 12/08/19 12/08/19 History Clopidogrel Bisulfate [Plavix] 75 mg PO DAILY 12/08/19 12/08/19 History Allergies Allergy/AdvReac Type Severity Reaction Status Date / Time Penicillins Allergy Unknown Verified 12/08/19 09:38 Childhood Physical Exam Vitals: Vital Signs Temp Pulse Pulse Resp BP BP Pulse Ox 12/08/19 11:01 97.7 F 92 18 148/98 100 12/08/19 09:45 97 18 130/86 98 12/08/19 08:57 99 20 144/100 100 12/08/19 08:25 96 12/08/19 08:16 96 12/08/19 07:23 97.9 F 97 22 133/94 100 Intake and Output 12/07/19 12/08/19 12/08/19 22:59 06:59 14:59 Other: Weight 63.503 kg Constitutional: No acute distress, conversant, pleasant Eyes:Anicteric sclerae, moist conjunctiva, no lid-lag, PERRLA, ENMT: Oropharynx clear, no erythema, exudates Neck: Supple, FROM, no masses, or JVD, No carotid bruits, No thyromegaly Lungs: Bilateral wheezing and rhonchi, Clear to percussion, Normal respiratory effort, no accessory muscle use Cardiovascular: Heart regular in rate and rhythm, No murmurs, gallops, or rubs, 1+ peripheral edema Abdominal: Soft, Nontender, no guarding, rebound or rigidity, Normoactive bowel sounds, No hepatomegaly, No splenomegaly, No palpable mass Skin: Normal temperature, tone, texture, turgor, no induration, No subcutaneous nodules, No rash, lesions, No ulcers Extremities: No digital cyanosis, No clubbing, Pedal pulses intact and symmetrical, Radial pulses intact and symmetrical, No calf tenderness Psychiatric: Alert and oriented to person, place and time, appropriate affect, intact judgement Neuro: Muscles Strength 5/5 in all 4 extremities, Sensation to light touch grossly present throughout, Cranial nerves II-XII grossly intact, no focal sensory deficits Results CBC & Chem 7: 12/08/19 07:39 12/08/19 07:39 Labs: Abnormal Lab Results - Last 24 Hours (Table) 12/08/19 12/08/19 12/08/19 Range/Units 07:39 07:39 07:39 RBC 4.13 L (4.30-5.90) m/uL Sodium 132 L (137-145) mmol/L Glucose 341 H (74-99) mg/dL ALT 58 H (4-49) U/L Troponin I 0.057 H* (0.000-0.034) ng/mL Assessment and Plan Plan: Acute exacerbation combined systolic and diastolic congestive heart failure Lasix 40 mg IV twice a day He has had an echocardiogram last month, reviewed, his EF is 20% Continue lisinopril Cardiology consultation Elevated troponin Cycle Cardiology evaluation Telemetry Continue aspirin Acute exacerbation of COPD. Steroids DuoNeb's Azithromycin Diabetes type 2 Continue home Lantus Add sliding-scale insulin with blood sugar checks every before meals and at bedtime Chronic Hyperlipidemia, Hypertension Peripheral neuropathy Chronic low back pain d/t vertebral fractures years ago as well as cervical pinched nerves, DDD, Stable resume meds Admitted to observation, with expected length of stay less than 2 midnights.
[2019-12-08 11:47] LABS: Glucose,Whole Blood 393 mg/dL (75-99)
[2019-12-08] MEDS: HYDROcodone/APAP 7.5-325MG 1 EACH TAB PO SCH ×3 (11:50→21:49)
[2019-12-08] MEDS: INSULIN ASPART (NovoLOG) 100 UNIT/ML VIAL SQ SCH ×3 (11:50→21:49)
[2019-12-08] MEDS ORDERED: IPRATROPIUM-ALBUTEROL 3 ML NEB INHALATION SCH (12:00)
[2019-12-08] MEDS: ISOSORBIDE MONONITRATE ER 30 MG TAB.ER.24H PO SCH (13:08)
[2019-12-08] MEDS: methylPREDNISolone SOD SUCCI 40 MG/ML 1 ML VIAL IV SCH ×2 (15:56→21:50)
[2019-12-08] MEDS: GABAPENTIN 400 MG CAP PO SCH ×2 (15:57→21:49)
[2019-12-08] MEDS ORDERED: methylPREDNISolone SOD SUCCI 125 MG/2 ML VIAL IV SCH (16:00)
--- NOTE | 2019-12-08 16:11 | CONS ---
CONSULTATION Mr. Hall is a 67-year-old male with known history of severe cardiomyopathy, history of chronic tobacco use, history of hypertension, hyperlipidemia, history of coronary artery disease, prior percutaneous revascularization, underwent last cardiac catheterization in 2016 and was found to have intermediate in-stent restenoses, who presented with symptoms of chest discomfort and progressive dyspnea. The patient has multiple admissions to the hospital for similar findings. He denies any dizziness or palpitation. He denies any syncope. He was admitted to the hospital most recently on November 20, 2019 and had an echocardiogram performed during that admission, showed an ejection fraction of 20%-25% 25% with mild mitral and tricuspid regurgitation and no evidence of pulmonary hypertension. The patient denies any clear PND or orthopnea. He denies any palpitations. The patient in the past had history of noncompliance. MEDICATIONS: At home included Zestril 10 mg daily, insulin, gabapentin, Lasix 40 mg daily, clopidogrel 75 mg daily, Coreg 6.5 mg twice a day, aspirin once a day, and Ventolin. REVIEW OF SYSTEMS: RESPIRATORY SYSTEM: Has dyspnea on exertion and cough, no fever. GI SYSTEM: No nausea and no vomiting. No GI bleeding. SYSTEM: No dysuria or hematuria. NERVOUS SYSTEM: No stroke or seizure. PHYSICAL EXAMINATION: He is a 59-year-old male, alert, oriented, in no apparent distress. Blood pressure 148/98 with a heart rate in the 90s. HEAD: Normocephalic. EYES: Sclerae nonicteric. NECK: Good upstroke, no bruit. LUNGS: With increased jugular venous pressure, lungs with crackles and rales bilaterally. HEART: Regular rate and rhythm, S1, S2. No S3 with systolic murmur no diastolic murmur, no rub. ABDOMEN: Soft, nontender, positive bowel sounds, no organomegaly. EXTREMITIES: +1 edema noted. LAB DATA: Revealed a BUN and creatinine of 16 and 0.72. Troponin 0.057. NT proBNP of 9240. EKG revealed a sinus mechanism with nonspecific ST-T wave changes. Chest x-ray shows evidence of COPD with a density in the right lower lobe that was noted in the past. IMPRESSION: 1. Symptoms of progressive dyspnea and chest discomfort with evidence of congestive heart failure with known severe systolic dysfunction. 2. Probable exacerbation of chronic obstructive pulmonary disease. 3. Mild troponin elevation most likely related to the type 2 cardiac event and not acute coronary syndrome. 4. History of noncompliance. 5. Chronic tobacco use. 6. Diabetes. 7. Hyperlipidemia. RECOMMENDATION: From the cardiac standpoint, the patient will receive intravenous diuretics. I will adjust the dose of his beta brett and I will add to his regimen nitrate. We will follow his renal function and depending on his progress, further recommendation will be made. Thank you for this consult. Will follow with you. CHARLINE / ZHOUN: [id number] /
[2019-12-08 16:28] LABS: Glucose,Whole Blood 348 mg/dL (75-99)
[2019-12-08] MEDS: CARVEDILOL 6.25 MG TAB PO SCH (17:22)
[2019-12-08 21:12] LABS: Glucose,Whole Blood >600 mg/dL (75-99)
[2019-12-08 21:13] LABS: Glucose,Whole Blood 518 mg/dL (75-99)
[2019-12-08] MEDS: INSULIN DETEMIR (LEVEMIR) 100 UNIT/ML SYR SQ SCH (21:48)
[2019-12-08] MEDS: FUROSEMIDE 10 MG/ML 4 ML VIAL IV SCH (21:49)
[2019-12-08] MEDS ORDERED: INSULIN ASPART (NovoLOG) 100 UNIT/ML VIAL SQ ONE (22:59)
[2019-12-09] MEDS ORDERED: INSULIN ASPART (NovoLOG) 100 UNIT/ML VIAL SQ ONE (04:00)
[2019-12-09] MEDS ORDERED: methylPREDNISolone SOD SUCCI 125 MG/2 ML VIAL ONE (04:00)
[2019-12-09] MEDS: methylPREDNISolone SOD SUCCI 40 MG/ML 1 ML VIAL IV SCH ×3 (04:49→21:36)
[2019-12-09 06:22] LABS: Glucose,Whole Blood 97 mg/dL (75-99)
[2019-12-09] MEDS: INSULIN ASPART (NovoLOG) 100 UNIT/ML VIAL SQ SCH ×4 (06:31→21:38)
[2019-12-09 06:37] LABS: Basophils % (A) 0 %; Eosinophils % (A) 0 %; HCT 39.1 % (39.0-53.0); HGB 12.3 gm/dL (13.0-17.5); Lymphocytes # (A) 1.6 k/uL (1.0-4.8); Lymphocytes % (A) 14 %; MCHC 31.5 g/dL (31.0-37.0); Mean Platelet Volume 9.4; Monocytes # (A) 0.4 k/uL (0-1.0); Monocytes % (A) 3 %; Neutrophils # (A) 9.6 k/uL (1.3-7.7); Neutrophils % (A) 82 %; Platelet Count 158 k/uL (150-450); RBC 4.11 m/uL (4.30-5.90); RDW 13.3 % (11.5-15.5); WBC 11.7 k/uL (3.8-10.6)
[2019-12-09] MEDS: CARVEDILOL 6.25 MG TAB PO SCH ×2 (06:38→17:44)
[2019-12-09 06:49] LABS: ALT 46 U/L (4-49); AST 37 U/L (17-59); African American GFR (CKD) >90 (>60 ml/min/1.73 sqM); Albumin 3.2 g/dL (3.5-5.0); Alkaline Phosphatase 83 U/L (38-126); Anion Gap 5 mmol/L; Blood Urea Nitrogen 25 mg/dL (9-20); Calcium 8.7 mg/dL (8.4-10.2); Carbon Dioxide 30 mmol/L (22-30); Chloride 100 mmol/L (98-107); Cholesterol 180 mg/dL (<200); Glucose 62 mg/dL (74-99); HDL Cholesterol 59 mg/dL (40-60); LDL Cholesterol,Calculated 109 mg/dL (0-99); Magnesium 1.8 mg/dL (1.6-2.3); Non-African American GFR(CKD) >90 (>60 ml/min/1.73 sqM); Potassium 4.6 mmol/L (3.5-5.1); Sodium 135 mmol/L (137-145); Total Bilirubin 0.9 mg/dL (0.2-1.3); Total Protein 6.4 g/dL (6.3-8.2); Triglycerides 58 mg/dL (<150)
[2019-12-09] MEDS: IPRATROPIUM-ALBUTEROL 3 ML NEB INHALATION SCH ×4 (07:51→19:51)
[2019-12-09] MEDS: FUROSEMIDE 10 MG/ML 4 ML VIAL IV SCH ×2 (08:48→21:36)
[2019-12-09] MEDS: CLOPIDOGREL 75 MG TAB PO SCH (08:49)
[2019-12-09] MEDS: ISOSORBIDE MONONITRATE ER 30 MG TAB.ER.24H PO SCH (08:49)
[2019-12-09] MEDS: LISINOPRIL 10 MG TAB PO SCH (08:49)
[2019-12-09] MEDS: GABAPENTIN 400 MG CAP PO SCH ×3 (08:49→21:35)
[2019-12-09] MEDS: AZITHROMYCIN 500 MG TAB PO SCH (08:49)
[2019-12-09] MEDS: ASPIRIN 81 MG PO SCH (08:49)
[2019-12-09] MEDS: HYDROcodone/APAP 7.5-325MG 1 EACH TAB PO SCH ×3 (08:49→21:37)
[2019-12-09] MEDS ORDERED: CARVEDILOL 6.25 MG TAB PO SCH (09:00)
[2019-12-09] MEDS ORDERED: ASPIRIN 325 MG TAB PO SCH (09:00)
[2019-12-09 11:09] LABS: Glucose,Whole Blood 193 mg/dL (75-99)
--- NOTE | 2019-12-09 12:05 | P.PN ---
Subjective Progress Note Date: 12/09/19 This is a pleasant 59-year-old male patient with a known history of severe cardiomyopathy, chronic tobacco use, hypertension, hyperlipidemia, CAD, prior PCI, underwent last cardiac catheterization in 2016 was found to have intermediate in-stent restenosis. Also has a history of hepatitis C, liver enzymes currently normal. Presented with symptoms of chest discomfort and progressive dyspnea. Patient had multiple admissions to the hospital for similar findings. He denies any complaints of dizziness or palpitations. Denies any syncope or near syncope. He was recently admitted to the hospital 11/20/2019 and had an echocardiogram performed at that time which showed an ejection fraction of 20-25% with mild MR and mild TR. NT proBNP was elevated on admission. Patient felt he was feeling somewhat better this morning but continues to have dyspnea on exertion with going to the bathroom. Labs this morning show a white blood cell count of 11,700, hemoglobin 12.3, BUN 25, creatinine 0.74. Lipids show cholesterol of 180, LDL 109, HDL 59 and triglycerides of 58. Does not appear is currently on a statin. Objective - Vital Signs Vital signs: Vital Signs Temp 98.3 F 12/09/19 07:30 Pulse 84 12/09/19 11:15 Resp 16 12/09/19 07:30 BP 104/64 12/09/19 07:30 Pulse Ox 99 12/09/19 07:30 Intake & Output 12/08/19 12/09/19 12/09/19 18:59 06:59 18:59 Intake Total 240 0 240 Balance 240 0 240 Weight 63.503 kg 54 kg Intake: Oral 240 0 240 Other: # Voids 0 2 1 - Exam PHYSICAL EXAMINATION: HEENT: Head is atraumatic, normocephalic. Pupils equal, round. Neck is supple. There is elevated jugular venous pressure. HEART EXAMINATION: Heart sounds regular, S1 and S2 with a systolic murmur. CHEST EXAMINATION: Lungs with crackles bilateral lower lobes. No chest wall tenderness is noted on palpation or with deep breathing. ABDOMEN: Soft, nontender. Bowel sounds are heard. No organomegaly noted. EXTREMITIES: 2+ peripheral pulses with evidence of trace peripheral edema and no calf tenderness noted. NEUROLOGIC patient is awake, alert and oriented x3. . - Labs CBC & Chem 7: 12/09/19 05:59 12/09/19 05:59 Labs: Abnormal Lab Results - Last 24 Hours (Table) 12/08/19 12/08/19 12/08/19 Range/Units 16:27 21:10 21:12 WBC (3.8-10.6) k/uL RBC (4.30-5.90) m/uL Hgb (13.0-17.5) gm/dL Neutrophils # (1.3-7.7) k/uL Sodium (137-145) mmol/L BUN (9-20) mg/dL Glucose (74-99) mg/dL POC Glucose (mg/dL) 348 H >600 H 518 H (75-99) mg/dL Phosphorus (2.5-4.5) mg/dL Albumin (3.5-5.0) g/dL LDL Cholesterol, Calc (0-99) mg/dL 12/09/19 12/09/19 12/09/19 Range/Units 05:59 05:59 11:08 WBC 11.7 H (3.8-10.6) k/uL RBC 4.11 L (4.30-5.90) m/uL Hgb 12.3 L (13.0-17.5) gm/dL Neutrophils # 9.6 H (1.3-7.7) k/uL Sodium 135 L (137-145) mmol/L BUN 25 H (9-20) mg/dL Glucose 62 L (74-99) mg/dL POC Glucose (mg/dL) 193 H (75-99) mg/dL Phosphorus 5.0 H (2.5-4.5) mg/dL Albumin 3.2 L (3.5-5.0) g/dL LDL Cholesterol, Calc 109 H (0-99) mg/dL Assessment and Plan Assessment: #1 symptoms progressive dyspnea and chest discomfort with evidence of congestive heart failure with known severe systolic dysfunction #2 probable exacerbation of COPD #3 mild troponin elevation most likely related to type II cardiac event and not acute coronary syndrome #4 history of noncompliance #5 history of CAD #6 chronic tobacco use #7 diabetes #8 hyperlipidemia not currently on statin Plan: From cardiology perspective, medications were reviewed, continue aspirin, carvedilol, IV lasix, lisinopril, and imdur. We will add Lipitor 40 mg daily. We will continue to follow the patient will write further recommendations accordingly. [employer] note has been reviewed, I agree with documented findings and plan of care. Patient was seen and examined.
[2019-12-09] MEDS ORDERED: ALPRAZolam 0.5 MG TAB PO STA (13:20)
--- NOTE | 2019-12-09 13:26 | P.PN ---
Subjective Progress Note Date: 12/09/19 Principal diagnosis: sob Feeling better today, sob and pain improving. He asked me for an anxiety pills to calm his nerves this am. No fevers, or chills. No nausea or vomiting. Objective - Vital Signs Vital signs: Vital Signs Temp 97.6 F 12/09/19 12:00 Pulse 80 12/09/19 12:00 Resp 16 12/09/19 12:00 BP 110/70 12/09/19 12:00 Pulse Ox 99 12/09/19 07:30 Intake & Output 12/08/19 12/09/19 12/09/19 18:59 06:59 18:59 Intake Total 240 0 240 Balance 240 0 240 Weight 63.503 kg 54 kg Intake: Oral 240 0 240 Other: # Voids 0 2 1 - Exam Constitutional: No acute distress, conversant, pleasant Eyes:Anicteric sclerae, moist conjunctiva, no lid-lag, PERRLA, ENMT: Oropharynx clear, no erythema, exudates Neck: Supple, FROM, no masses, or JVD, No carotid bruits, No thyromegaly Lungs: Clear to auscultation, Clear to percussion, Normal respiratory effort, no accessory muscle use Cardiovascular: Heart regular in rate and rhythm, No murmurs, gallops, or rubs, No peripheral edema Abdominal: Soft, Nontender, no guarding, rebound or rigidity, Normoactive bowel sounds, No hepatomegaly, No splenomegaly, No palpable mass Skin: Normal temperature, tone, texture, turgor, no induration, No subcutaneous nodules, No rash, lesions, No ulcers Extremities: No digital cyanosis, No clubbing, Pedal pulses intact and symmetrical, Radial pulses intact and symmetrical, No calf tenderness Psychiatric: Alert and oriented to person, place and time, appropriate affect, intact judgement Neuro: Muscles Strength 5/5 in all 4 extremities, Sensation to light touch grossly present throughout, Cranial nerves II-XII grossly intact, no focal se nsory deficits - Labs CBC & Chem 7: 12/09/19 05:59 12/09/19 05:59 Labs: Abnormal Lab Results - Last 24 Hours (Table) 12/08/19 12/08/19 12/08/19 Range/Units 16:27 21:10 21:12 WBC (3.8-10.6) k/uL RBC (4.30-5.90) m/uL Hgb (13.0-17.5) gm/dL Neutrophils # (1.3-7.7) k/uL Sodium (137-145) mmol/L BUN (9-20) mg/dL Glucose (74-99) mg/dL POC Glucose (mg/dL) 348 H >600 H 518 H (75-99) mg/dL Phosphorus (2.5-4.5) mg/dL Albumin (3.5-5.0) g/dL LDL Cholesterol, Calc (0-99) mg/dL 12/09/19 12/09/19 12/09/19 Range/Units 05:59 05:59 11:08 WBC 11.7 H (3.8-10.6) k/uL RBC 4.11 L (4.30-5.90) m/uL Hgb 12.3 L (13.0-17.5) gm/dL Neutrophils # 9.6 H (1.3-7.7) k/uL Sodium 135 L (137-145) mmol/L BUN 25 H (9-20) mg/dL Glucose 62 L (74-99) mg/dL POC Glucose (mg/dL) 193 H (75-99) mg/dL Phosphorus 5.0 H (2.5-4.5) mg/dL Albumin 3.2 L (3.5-5.0) g/dL LDL Cholesterol, Calc 109 H (0-99) mg/dL Assessment and Plan Plan: Acute exacerbation 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 Wean down steroids DuoNeb's Azithromycin Diabetes type 2 Continue home Lantus Sliding-scale insulin with blood sugar checks every before meals and at bedtime Chronic Hyperlipidemia, Hypertension Peripheral neuropathy Chronic low back pain d/t vertebral fractures years ago as well as cervical pinched nerves, DDD, Stable resume meds Anticipated discharge: 1 day Anticipated dispo: home
[2019-12-09 13:31] VITALS: BMI 17.0
[2019-12-09 16:18] LABS: Glucose,Whole Blood 317 mg/dL (75-99)
[2019-12-09] MEDS ORDERED: ATORVASTATIN 40 MG TAB PO SCH (21:00)
[2019-12-09 21:09] LABS: Glucose,Whole Blood 395 mg/dL (75-99)
[2019-12-09] MEDS: INSULIN DETEMIR (LEVEMIR) 100 UNIT/ML SYR SQ SCH (21:41)
[2019-12-09 22:37] VITALS: RESP 18
[2019-12-10 02:52] LABS: Glucose,Whole Blood 76 mg/dL (75-99)
[2019-12-10 02:55] LABS: Glucose,Whole Blood 78 mg/dL (75-99)
[2019-12-10 06:41] LABS: Glucose,Whole Blood 152 mg/dL (75-99)
[2019-12-10] MEDS: INSULIN ASPART (NovoLOG) 100 UNIT/ML VIAL SQ SCH ×2 (06:59→13:13)
[2019-12-10] MEDS: CARVEDILOL 6.25 MG TAB PO SCH (06:59)
[2019-12-10] MEDS: HYDROcodone/APAP 7.5-325MG 1 EACH TAB PO SCH (07:03)
[2019-12-10 07:21] LABS: African American GFR (CKD) >90 (>60 ml/min/1.73 sqM); Anion Gap 5 mmol/L; Blood Urea Nitrogen 46 mg/dL (9-20); Calcium 8.3 mg/dL (8.4-10.2); Carbon Dioxide 27 mmol/L (22-30); Chloride 100 mmol/L (98-107); Glucose 144 mg/dL (74-99); Non-African American GFR(CKD) >90 (>60 ml/min/1.73 sqM); Potassium 4.1 mmol/L (3.5-5.1); Sodium 132 mmol/L (137-145)
[2019-12-10] MEDS: IPRATROPIUM-ALBUTEROL 3 ML NEB INHALATION SCH ×2 (07:49→11:08)
[2019-12-10] MEDS ORDERED: ERGOCALCIFEROL 50,000 UNIT CAP PO SCH (09:00)
[2019-12-10] MEDS: ISOSORBIDE MONONITRATE ER 30 MG TAB.ER.24H PO SCH (09:07)
[2019-12-10] MEDS: GABAPENTIN 400 MG CAP PO SCH (09:07)
[2019-12-10] MEDS: AZITHROMYCIN 500 MG TAB PO SCH (09:07)
[2019-12-10] MEDS: CLOPIDOGREL 75 MG TAB PO SCH (09:07)
[2019-12-10] MEDS: LISINOPRIL 10 MG TAB PO SCH (09:07)
[2019-12-10] MEDS: ASPIRIN 81 MG PO SCH (09:07)
[2019-12-10] MEDS: FUROSEMIDE 10 MG/ML 4 ML VIAL IV SCH (09:08)
[2019-12-10] MEDS: methylPREDNISolone SOD SUCCI 40 MG/ML 1 ML VIAL IV SCH (09:08)
--- NOTE | 2019-12-10 11:12 | P.DS ---
Providers Date of admission: 12/08/19 09:38 Expected date of discharge: 12/10/19 Attending physician: Niels Batres MD Consults: 12/08/19 09:26 Consult Physician Routine Consulting Provider: Tr Maldonado Consult Reason/Comments: cardiac evaluation Do you want consulting provider notified?: Yes Primary care physician: [facility] Course: This 59-year-old male who presented to the emergency room shortness of breath, chest pain, and dyspnea. Patient was evaluated in the ER and admitted to the hospital for further management of his medical problems noted below. 1. Acute systolic and diastolic heart failure exacerbation, seen and evaluated by cardiology. Improved significantly with IV Lasix. Known EF of 20-25%. Increase home dose of Lasix to 40 mg twice daily. 2. Acute COPD exacerbation, mild. Improved with IV steroids and bronchodilators. Will finish 5 days course of azithromycin. No more steroids at this time. 3. Type 2 diabetes, continue home regimen of Lasix 4. Hyperlipidemia Patient will be discharged home in a stable condition. For further details about this hospitalization please refer to the electronic chart. Patient Condition at Discharge: Fair Plan - Discharge Summary Discharge Rx Participant: No New Discharge Prescriptions: New Isosorbide Mononitrate ER [Imdur] 30 mg PO DAILY #30 tab.er.24h Furosemide [Lasix] 40 mg PO BID@0900,1600 #60 tab Atorvastatin [Lipitor] 40 mg PO HS #30 tab Azithromycin [Zithromax] 500 mg PO DAILY #3 tab Continue Gabapentin 800 mg PO TID #20 tab Aspirin 81 mg PO DAILY #30 chew Lisinopril [Zestril] 10 mg PO DAILY #30 tab Ergocalciferol [Vitamin D2 (DRISDOL)] 50,000 unit PO FR HYDROcodone/APAP 7.5-325MG [[place] 7.5-325] 1 tab PO TID Insulin Glargine,Hum.rec.anlog [Marthaaglzandra Khan U-100] 30 unit SQ HS INSULIN LISPRO (HumaLOG) [humaLOG] See Protocol SQ AC-TID Carvedilol [Coreg] 6.25 mg PO DAILY Clopidogrel Bisulfate [Plavix] 75 mg PO DAILY Albuterol Sulfate [Ventolin HFA] 1 - 2 puff INHALATION RT-Q6H PRN PRN Reason: Shortness Of Breath Discontinued Furosemide [Lasix] 40 mg PO DAILY Discharge Medication List Gabapentin 800 mg PO TID #20 tab 04/17/19 [Rx] Aspirin 81 mg PO DAILY #30 chew 06/20/19 [Rx] Lisinopril [Zestril] 10 mg PO DAILY #30 tab 06/20/19 [Rx] Carvedilol [Coreg] 6.25 mg PO DAILY 11/19/19 [History] Ergocalciferol [Vitamin D2 (DRISDOL)] 50,000 unit PO FR 11/19/19 [History] HYDROcodone/APAP 7.5-325MG [[place] 7.5-325] 1 tab PO TID 11/19/19 [History] INSULIN LISPRO (HumaLOG) [humaLOG] See Protocol SQ AC-TID 11/19/19 [History] Insulin Glargine,Hum.rec.anlog [Basaglar Kwikpen U-100] 30 unit SQ HS 11/19/19 [History] Albuterol Sulfate [Ventolin HFA] 1 - 2 puff INHALATION RT-Q6H PRN 12/08/19 [History] Clopidogrel Bisulfate [Plavix] 75 mg PO DAILY 12/08/19 [History] Atorvastatin [Lipitor] 40 mg PO HS #30 tab 12/10/19 [Rx] Azithromycin [Zithromax] 500 mg PO DAILY #3 tab 12/10/19 [Rx] Furosemide [Lasix] 40 mg PO BID@0900,1600 #60 tab 12/10/19 [Rx] Isosorbide Mononitrate ER [Imdur] 30 mg PO DAILY #30 tab.er.24h 12/10/19 [Rx] Follow up Appointment(s)/Referral(s): Dave Burciaga MD [Primary Care Provider] - 1-2 days Discharge Disposition: HOME SELF-CARE
--- NOTE | 2019-12-10 11:14 | P.PN ---
Subjective Progress Note Date: 12/10/19 This is a pleasant 59-year-old male patient with a known history of severe cardiomyopathy, chronic tobacco use, hypertension, hyperlipidemia, CAD, prior PCI, underwent last cardiac catheterization in 2016 was found to have intermediate in-stent restenosis. Also has a history of hepatitis C, liver enzymes currently normal. Presented with symptoms of chest discomfort and progressive dyspnea. Patient had multiple admissions to the hospital for similar findings. He denies any complaints of dizziness or palpitations. Denies any syncope or near syncope. He was recently admitted to the hospital 11/20/2019 and had an echocardiogram performed at that time which showed an ejection fraction of 20-25% with mild MR and mild TR. NT proBNP was elevated on admission. Patient felt he was feeling somewhat better this morning but continues to have dyspnea on exertion with going to the bathroom. Labs this morning show a white blood cell count of 11,700, hemoglobin 12.3, BUN 25, creatinine 0.74. Lipids show cholesterol of 180, LDL 109, HDL 59 and triglycerides of 58. Does not appear is currently on a statin. 12/10/2019 Patient was seen and examined this morning sitting up in a chair. He said he's felt significantly better this morning until he became upset due to some issues with housekeeping and nursing staff for which the exact details are not known. He is quite upset wanting to go home. He is currently on aspirin 81 mg by mouth daily, atorvastatin 40 mg by mouth daily at bedtime, her renal 6.25 mg by mouth twice a day, Plavix 75 mg by mouth daily, 640 mg IV push every 12 hours, isosor bide 30 mg by mouth daily and lisinopril 10 mg by mouth daily. Labs this morning showed BUN 46 and creatinine 0.92. Vital signs are relatively stable with some mild hypo-tension through the night, better this morning at 113/61 with a heart rate of 67. Objective - Vital Signs Vital signs: Vital Signs Temp 97.5 F L 12/10/19 04:00 Pulse 67 12/10/19 04:00 Resp 18 12/10/19 04:00 BP 113/61 12/10/19 04:00 Pulse Ox 98 12/10/19 04:00 Intake & Output 12/09/19 12/10/19 12/10/19 18:59 06:59 18:59 Intake Total 720 714 480 Output Total 400 Balance 720 314 480 Weight 54 kg 67.8 kg Intake: Oral 720 714 480 Output: Urine 400 Other: # Voids 1 - Exam PHYSICAL EXAMINATION: HEENT: Head is atraumatic, normocephalic. Pupils equal, round. Neck is supple. There is no elevated jugular venous pressure. HEART EXAMINATION: Heart sounds regular, S1 and S2 with a systolic murmur. CHEST EXAMINATION: Lungs reveal diminished air entry bilaterally. No chest wall tenderness is noted on palpation or with deep breathing. ABDOMEN: Soft, nontender. Bowel sounds are heard. No organomegaly noted. EXTREMITIES: 2+ peripheral pulses with evidence of trace peripheral edema and no calf tenderness noted. NEUROLOGIC patient is awake, alert and oriented x3. . - Labs CBC & Chem 7: 12/09/19 05:59 12/10/19 06:31 Labs: Abnormal Lab Results - Last 24 Hours (Table) 12/09/19 12/09/19 12/09/19 Range/Units 11:08 16:08 21:07 Sodium (137-145) mmol/L BUN (9-20) mg/dL Glucose (74-99) mg/dL POC Glucose (mg/dL) 193 H 317 H 395 H (75-99) mg/dL Calcium (8.4-10.2) mg/dL 12/10/19 12/10/19 Range/Units 06:31 06:39 Sodium 132 L (137-145) mmol/L BUN 46 H (9-20) mg/dL Glucose 144 H (74-99) mg/dL POC Glucose (mg/dL) 152 H (75-99) mg/dL Calcium 8.3 L (8.4-10.2) mg/dL Assessment and Plan Assessment: #1 symptoms progressive dyspnea and chest discomfort with evidence of congestive heart failure with known severe systolic dysfunction #2 probable exacerbation of COPD #3 mild troponin elevation most likely related to type II cardiac event and not acute coronary syndrome #4 history of noncompliance #5 history of CAD #6 chronic tobacco use #7 diabetes #8 hyperlipidemia not currently on statin Plan: From cardiology perspective, medications were reviewed, continue aspirin, carvedilol, atorvastatin, lisinopril, and imdur. We will switch to Lasix 40 mg by mouth twice a day. From our standpoint patient is stable for discharge home. He will follow-up in the office. CAD DEVELOPER note has been reviewed, I agree with documented findings and plan of care. Patient was seen and examined.
[2019-12-10 11:29] LABS: Glucose,Whole Blood 300 mg/dL (75-99)
[2019-12-10 11:45] VITALS: BP 103/63; PULSE 74; TEMP 97.9
[2019-12-10] MEDS ORDERED: FUROSEMIDE 40 MG TAB PO SCH (16:00)
== END 2019-12-10 12:49 | disposition home or self-care (01) ==
LOC: EC 07:22 → 3SCARD 09:38
PROVIDERS: ADMIT Family Medicine; ATTEND Family Medicine
DX: I11.0 Hypertensive heart disease with heart failure (principal); I50.41 Acute combined systolic (congestive) and diastolic (congestive) heart failure; J44.1 Chronic obstructive pulmonary disease with (acute) exacerbation; E78.5 Hyperlipidemia, unspecified; I42.9 Cardiomyopathy, unspecified; I25.10 Atherosclerotic heart disease of native coronary artery without angina pectoris; T82.855A Stenosis of coronary artery stent, initial encounter; R79.89 Other specified abnormal findings of blood chemistry; F41.9 Anxiety disorder, unspecified; I25.5 Ischemic cardiomyopathy; E11.42 Type 2 diabetes mellitus with diabetic polyneuropathy; G62.9 Polyneuropathy, unspecified; F31.9 Bipolar disorder, unspecified; G89.29 Other chronic pain; M54.5 Low back pain; M50.30 Other cervical disc degeneration, unspecified cervical region; F17.210 Nicotine dependence, cigarettes, uncomplicated; I25.2 Old myocardial infarction; Z86.19 Personal history of other infectious and parasitic diseases; Z87.81 Personal history of (healed) traumatic fracture; Z86.73 Personal history of transient ischemic attack (TIA), and cerebral infarction without residual deficits; Z90.49 Acquired absence of other specified parts of digestive tract; Z95.5 Presence of coronary angioplasty implant and graft; Z79.899 Other long term (current) drug therapy; Z79.82 Long term (current) use of aspirin; Z79.891 Long term (current) use of opiate analgesic; Z79.4 Long term (current) use of insulin; Z79.02 Long term (current) use of antithrombotics/antiplatelets; Z88.0 Allergy status to penicillin; Z80.8 Family history of malignant neoplasm of other organs or systems; Z82.49 Family history of ischemic heart disease and other diseases of the circulatory system; Z83.3 Family history of diabetes mellitus; Z20.828 Contact with and (suspected) exposure to other viral communicable diseases
CPT/HCPCS: 96376 ×3; 93005 ×2; 96374; 96375; 99285; 36415; 94640 ×3; 83880; 80061; 80053 ×2; 80048; 83735 ×2; 84100; 84484; 85025 ×2; 85610; 85730; 71046; G0378 ×3; U0003; J1940 ×3; J2920 ×3; J2930

== ENCOUNTER 2020-02-26 17:37 | Inpatient (IN) | payer OTHER ==
--- NOTE | 2020-02-26 18:29 | ED ---
General Adult HPI - General Chief complaint: Extremity Injury, Lower Stated complaint: leg/groin swelling Source: patient Mode of arrival: ambulatory Limitations: no limitations - History of Present Illness Initial comments: Patient is a 60 old male with past medical history of coronary artery disease, COPD, CVA, diabetes, congestive heart failure presents emergency room with r eported lower extremity swelling and scrotal swelling. Patient reports to a history of congestive heart failure and recent recently hospitalized at [facility] for similar complaints. Received IV diuresis and was discharged home. Patient feels as if it was slightly premature. He went back into [facility] this morning. Was told that he had pulmonary edema and they wanted to admit him for diuresis. They requested he have a covid swab performed and the patient reported that he couldn't tolerate it therefore he was discharged. Patient admits orthopnea. Denies chest pain. Denies any shortness of breath at this time. Patient has had a difficult time urinating due to the scrotal swelling. He is on Lasix and takes 40 mg twice a day. Reports he has been compliant with this. Denies any fevers or chills. 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 - Related Data Home Medications Medication Instructions Recorded Confirmed Ergocalciferol [Vitamin D2 50,000 unit PO FR 11/19/19 02/26/20 (DRISDOL)] HYDROcodone/APAP 7.5-325MG [[place] 1 tab PO QID PRN 11/19/19 02/26/20 7.5-325] INSULIN LISPRO (HumaLOG) [humaLOG] See Protocol SQ AC-TID 11/19/19 02/26/20 Insulin Glargine,Hum.rec.anlog 30 unit SQ HS 11/19/19 02/26/20 [Basaglar Kwikpen U-100] Albuterol Sulfate [Ventolin HFA] 1 - 2 puff INHALATION RT-Q6H PRN 12/08/19 02/26/20 Clopidogrel Bisulfate [Plavix] 75 mg PO DAILY 12/08/19 02/26/20 Albuterol Nebulized [Ventolin 2.5 mg INHALATION Q4H PRN 02/26/20 02/26/20 Nebulized] Baclofen 10 mg PO TID PRN 02/26/20 02/26/20 Furosemide [Lasix] 40 mg PO BID 02/26/20 02/26/20 Gabapentin [Neurontin] 300 mg PO TID 02/26/20 02/26/20 Metoprolol Tartrate [Lopressor] 50 mg PO BID 02/26/20 02/26/20 Previous Rx's Medication Instructions Recorded Aspirin 81 mg PO DAILY #30 chew 06/20/19 lisinopriL [Zestril] 10 mg PO DAILY #30 tab 06/20/19 Allergies Allergy/AdvReac Type Severity Reaction Status Date / Time Penicillins Allergy Unknown Verified 02/26/20 20:44 Childhood metformin AdvReac Mild Nausea Verified 02/26/20 21:04 Review of Systems ROS Statement: Those systems with pertinent positive or pertinent negative responses have been documented in the HPI. ROS Other: All systems not noted in ROS Statement are negative. Past Medical History Past Medical History: Coronary Artery Disease (CAD), Heart Failure, COPD, CVA/TIA, Diabetes Mellitus, Hyperlipidemia, Hypertension, Liver Disease, Myocardial Infarction ([place]) Additional Past Medical History / Comment(s): Ischemic cardiomyopathy, PVCs, CVA 2019 with L sided weakness, chronic low back pain d/t vertebral fractures years ago as well as cervical pinched nerves, DDD, IDDM type II, neuropathy bilateral hands/legs and feet, hep c Last Myocardial Infarction Date:: October 2018 History of Any Multi-Drug Resistant Organisms: None Reported Past Surgical History: Cholecystectomy, Heart Catheterization, Heart Catheterization With Stent, Tonsillectomy Additional Past Surgical History / Comment(s): R heel I&D, colonoscopy. Past Anesthesia/Blood Transfusion Reactions: No Reported Reaction Date of Last Stent Placement:: 2011 Past Psychological History: Anxiety, Bipolar, Depression Smoking Status: Current every day smoker, Former smoker Past Alcohol Use History: None Reported Past Drug Use History: Heroin, Marijuana - Past Family History Mother Family Medical History: Cancer Father Family Medical History: Coronary Artery Disease (CAD), Diabetes Mellitus, Hypertension General Exam Limitations: no limitations Course Vital Signs 02/26/20 02/26/20 02/26/20 17:50 18:41 20:06 Temperature 98.4 F Pulse Rate 94 86 81 Respiratory 20 18 18 Rate Blood Pressure 113/74 110/74 120/84 O2 Sat by Pulse 95 100 Oximetry EKG Findings - EKG Comments: EKG Findings:: EKG demonstrates a normal sinus rhythm with occasional PVCs. Rate of 170. QRS 86. QTC of 46. No acute ST segment elevations. Mild ST depression in V4 through V6 as well as leads 1 and aVL Medical Decision Making - Medical Decision Making Upon arrival patient was placed into room 7. A thorough history and physical exam was performed. Peripheral IV is established. Laboratory studies were con ducted. Patient is requesting something for pain control and therefore he is given 1 mg of Dilaudid. Laboratory studies are reviewed. Troponin elevated at 0.107. BNP 5730. 12-lead EKG was performed which demonstrates no acute ST segment elevation. ST depression consistent with previous EKG. Chest x-ray was performed which demonstrates no acute crit upon process. Recommended hospital admission for heparinization, cardiology consultation IV diuretics. Patient was given 60 mg of Lasix in the emergency room. I called and discussed the case with Dr. Rodriguez who accepted admission. Patient was taken to the floor in stable condition - Lab Data Result diagrams: 02/26/20 18:29 02/26/20 18:29 Lab Results 02/26/20 02/26/20 02/26/20 Range/Units 18:29 18:29 18:29 WBC 5.0 (3.8-10.6) k/uL RBC 4.00 L (4.30-5.90) m/uL Hgb 12.1 L (13.0-17.5) gm/dL Hct 37.7 L (39.0-53.0) % MCV 94.3 (80.0-100.0) fL MCH 30.2 (25.0-35.0) pg MCHC 32.0 (31.0-37.0) g/dL RDW 14.3 (11.5-15.5) % Plt Count 134 L (150-450) k/uL Neutrophils % 54 % Lymphocytes % 33 % Monocytes % 9 % Eosinophils % 1 % Basophils % 1 % Neutrophils # 2.7 (1.3-7.7) k/uL Lymphocytes # 1.6 (1.0-4.8) k/uL Monocytes # 0.4 (0-1.0) k/uL Eosinophils # 0.1 (0-0.7) k/uL Basophils # 0.1 (0-0.2) k/uL PT 12.3 H (9.0-12.0) sec INR 1.2 H (<1.2) APTT 27.4 (22.0-30.0) sec Sodium 135 L (137-145) mmol/L Potassium 3.7 (3.5-5.1) mmol/L Chloride 104 (98-107) mmol/L Carbon Dioxide 21 L (22-30) mmol/L Anion Gap 10 mmol/L BUN 31 H (9-20) mg/dL Creatinine 1.51 H (0.66-1.25) mg/dL Est GFR (CKD-EPI)AfAm 57 (>60 ml/min/1.73 sqM) Est GFR (CKD-EPI)NonAf 49 (>60 ml/min/1.73 sqM) Glucose 223 H (74-99) mg/dL Calcium 8.2 L (8.4-10.2) mg/dL Total Bilirubin 1.1 (0.2-1.3) mg/dL AST 66 H (17-59) U/L ALT 44 (4-49) U/L Alkaline Phosphatase 133 H (38-126) U/L Troponin I (0.000-0.034) ng/mL NT-Pro-B Natriuret Pep pg/mL Total Protein 6.1 L (6.3-8.2) g/dL Albumin 3.3 L (3.5-5.0) g/dL 02/26/20 02/26/20 Range/Units 18:29 18:29 WBC (3.8-10.6) k/uL RBC (4.30-5.90) m/uL Hgb (13.0-17.5) gm/dL Hct (39.0-53.0) % MCV (80.0-100.0) fL MCH (25.0-35.0) pg MCHC (31.0-37.0) g/dL RDW (11.5-15.5) % Plt Count (150-450) k/uL Neutrophils % % Lymphocytes % % Monocytes % % Eosinophils % % Basophils % % Neutrophils # (1.3-7.7) k/uL Lymphocytes # (1.0-4.8) k/uL Monocytes # (0-1.0) k/uL Eosinophils # (0-0.7) k/uL Basophils # (0-0.2) k/uL PT (9.0-12.0) sec INR (<1.2) APTT (22.0-30.0) sec Sodium (137-145) mmol/L Potassium (3.5-5.1) mmol/L Chloride (98-107) mmol/L Carbon Dioxide (22-30) mmol/L Anion Gap mmol/L BUN (9-20) mg/dL Creatinine (0.66-1.25) mg/dL Est GFR (CKD-EPI)AfAm (>60 ml/min/1.73 sqM) Est GFR (CKD-EPI)NonAf (>60 ml/min/1.73 sqM) Glucose (74-99) mg/dL Calcium (8.4-10.2) mg/dL Total Bilirubin (0.2-1.3) mg/dL AST (17-59) U/L ALT (4-49) U/L Alkaline Phosphatase (38-126) U/L Troponin I 0.107 H* (0.000-0.034) ng/mL NT-Pro-B Natriuret Pep 5730 pg/mL Total Protein (6.3-8.2) g/dL Albumin (3.5-5.0) g/dL Disposition Clinical Impression: Congestive heart failure, Lower extremity edema Disposition: ADMITTED IP TO THIS [facility] Condition: Stable Is patient prescribed a controlled substance at d/c from ED?: No Decision to Admit Reason: Admit from EC Decision Date: 02/26/20 Decision Time: 19:45
[2020-02-26 18:38] LABS: Basophils # (A) 0.1 k/uL (0-0.2); Basophils % (A) 1 %; Eosinophils # (A) 0.1 k/uL (0-0.7); Eosinophils % (A) 1 %; HCT 37.7 % (39.0-53.0); HGB 12.1 gm/dL (13.0-17.5); Lymphocytes # (A) 1.6 k/uL (1.0-4.8); Lymphocytes % (A) 33 %; MCH 30.2 pg (25.0-35.0); MCV 94.3 fL (80.0-100.0); Mean Platelet Volume 8.9; Monocytes # (A) 0.4 k/uL (0-1.0); Monocytes % (A) 9 %; Neutrophils # (A) 2.7 k/uL (1.3-7.7); Neutrophils % (A) 54 %; Platelet Count 134 k/uL (150-450); RDW 14.3 % (11.5-15.5)
[2020-02-26 18:53] LABS: INR 1.2 (<1.2); Partial Thromboplastin Time 27.4 sec (22.0-30.0); Prothrombin Time 12.3 sec (9.0-12.0)
[2020-02-26 19:02] LABS: Albumin 3.3 g/dL (3.5-5.0); Potassium 3.7 mmol/L (3.5-5.1); Total Protein 6.1 g/dL (6.3-8.2)
[2020-02-26 19:03] LABS: Calcium 8.2 mg/dL (8.4-10.2); Total Bilirubin 1.1 mg/dL (0.2-1.3)
--- NOTE | 2020-02-26 19:28 | XR ---
EXAMINATION TYPE: XR chest 2V DATE OF EXAM: 02/26/2020 COMPARISON: 12/08/2019 INDICATION: Difficulty breathing short of breath TECHNIQUE: Frontal and lateral views of the chest are obtained. FINDINGS: The heart size is normal. The pulmonary vasculature is normal. The lungs are clear. IMPRESSION: 1. No acute pulmonary process.
[2020-02-26] MEDS ORDERED: NALOXONE 0.4 MG/ML 1 ML VIAL IV PRN (19:45)
[2020-02-26] MEDS ORDERED: FUROSEMIDE 10 MG/ML 10 ML VIAL IV STA (19:48)
[2020-02-26] MEDS ORDERED: HYDROmorphone 1 MG/ML 1 ML SYRINGE IVP STA (19:55)
[2020-02-26] MEDS ORDERED: HEPARIN SODIUM,PORCINE 5,000 UNIT/ML 1 ML VIAL IV ONE (19:57)
[2020-02-26] MEDS ORDERED: HEPARIN SODIUM,PORCINE 5,000 UNIT/ML 1 ML VIAL IV PRN (19:57)
[2020-02-26] MEDS: HEPARIN SOD,PORK IN 0.45% NACL 25,000 UNIT in 0.45% NACL 1 250ML.BAG IV SCH (20:14)
[2020-02-26 21:51] LABS: Glucose,Whole Blood 117 mg/dL (75-99)
[2020-02-26] MEDS ORDERED: BACLOFEN 10 MG TAB PO PRN (23:39)
[2020-02-26] MEDS ORDERED: ALBUTEROL NEBULIZED 2.5 MG/3 ML INHALATION PRN ×2 (23:39)
[2020-02-26] MEDS ORDERED: HYDROcodone/APAP 7.5-325MG 1 EACH TAB PO PRN (23:39)
[2020-02-26] MEDS ORDERED: LORazepam 1 MG TAB PO PRN (23:43)
[2020-02-26] MEDS ORDERED: TEMAZEPAM 15 MG CAP PO PRN (23:43)
[2020-02-27] MEDS: HYDROmorphone 0.5 MG/0.5 ML SYRINGE IVP PRN ×5 (00:33→20:24)
--- NOTE | 2020-02-27 05:11 | HP ---
HISTORY AND PHYSICAL DATE OF SERVICE: 02/26/2020 CHIEF COMPLAINT: Bilateral leg swelling and severe pain. HISTORY OF PRESENT ILLNESS: This 60-year-old gentleman with a past medical history of multiple medical problems including CHF with chronic systolic dysfunction, ejection fraction 20-25%, history of COPD, diabetes type 2, hyperlipidemia, history of CVA, TIA, history of chronic liver disease, history of ischemic cardiomyopathy, history of cholecystectomy, history of coronary artery disease with stent, history of anxiety, bipolar depression being followed by Dr. lopez and Dr. Jennings currently was admitted with complaints of bilateral leg swelling and significant erythema. The patient also had multiple picking on the skin and also the face. The patient admits to ICE usage a couple days ago along with a brother, but the patient has used substances previously but currently the patient is drug-free except this particular episode, according to him. There is no history of fever, rigors, chills. No headache, loss of consciousness, seizures. PAST MEDICAL HISTORY: History coronary artery disease, CHF, COPD, CVA, diabetes mellitus, hypertension, hyperlipidemia, chronic liver disease, anxiety, bipolar depression. MEDICATIONS: Home medications are Neurontin 300 mg p.o. t.i.d., Lasix 40 mg, Ventolin, Lopressor, baclofen, Zestril, Hay[place], Basaglar, Humalog, Drisdol, Plavix, aspirin, Ventolin HFA. Doses reviewed. ALLERGIES: PENICILLIN AND METFORMIN. FAMILY HISTORY: History of breast cancer in the family. SOCIAL HISTORY: History of alcohol. History of smoking. REVIEW OF SYSTEMS: ENT: No diminished vision or hearing. CARDIOVASCULAR: As mentioned earlier. RESPIRATORY: As mentioned earlier. GI: No nausea, vomiting, diarrhea. : No dysuria. NERVOUS SYSTEM: No numbness or weakness. ALLERGY/IMMUNOLOGY: No asthma or hayfever. MUSCULOSKELETAL: As mentioned earlier. HEMATOLOGY: No history of anemia. ENDOCRINE: As mentioned earlier. CONSTITUTIONAL: As mentioned earlier. DERMATOLOGY: As mentioned earlier. RHEUMATOLOGY: Negative. PSYCHIATRY: As mentioned earlier. PHYSICAL EXAM: GENERAL: Patient is alert and oriented times three. VITAL SIGNS: Pulse is 60, blood pressure 120/70, respiration 19, temperature 97.8, pulse ox 100 percent on room air. HEENT: Conjunctivae normal. Oral mucosa moist. NECK: No jugular venous distention. No carotid bruits. No lymph node enlargement. RESPIRATORY: Breath sounds diminished at the bases. A few scattered rhonchi and crackles. HEART: S1 and S2, muffled. No S3 or S4. ABDOMEN: Soft, obese, mild diffuse distention. Otherwise, no masses palpable. No tenderness. No ascites. EXTREMITIES: Bilateral leg edema. Tender and erythematous. Pulses diminished bilaterally. Legs are cold to touch. NERVOUS SYSTEM: Higher functions as mentioned earlier. Moves all 4 limbs. No focal motor-sensory deficits. LYMPHATICS: No lymph node of the neck or axilla. SKIN: As mentioned earlier. Multiple ecchymotic areas and recent picking is also present, which is probably infected. JOINTS: No active deforming arthropathy. LABS: WBC 5, hemoglobin 12.1, INR 1.2, sodium 135, creatinine is 1.51. The baseline creatinine was around 0.92. Troponin 0.107. Albumin 3.3. ASSESSMENT: 1. Bilateral leg edema, possibly multifactorial secondary to congestive heart failure acute exacerbation with acute on chronic systolic dysfunction with ejection fraction 20-25 percent, as well as possibly acute on chronic liver disease. 2. Troponin 0.107, rule out acute coronary event. 3. Increased creatinine with acute renal failure possibly prerenal acute tubular necrosis. 4. Hyponatremia. 5. History of previous methamphetamine or ICE usage. 6. Anemia, normocytic anemia of chronic disease. 7. Thrombocytopenia secondary to liver disease. 8. Mild coagulopathy secondary to liver disease. 9. History of coronary artery disease. 10.History of chronic obstructive pulmonary disease. 11.Cerebrovascular accident, transient ischemic attack. 12.Diabetes mellitus type 2. 13.Hypertension. 14.Hyperlipidemia. 15.History of myocardial infarction. 16.History of ischemic cardiomyopathy. 17.Degenerative joint disease. 18.History of cholecystectomy. 19.History of coronary artery disease with stent. 20.Anxiety with bipolar depression. 21.History of nicotine dependence continued ongoing. 22.History of polysubstance abuse including heroin, THC. 23.Acute bilateral leg cellulitis. RECOMMENDATIONS AND DISCUSSION: In this 60-year-old gentleman who presented with multiple complex medical issues, we will monitor the patient closely. Continue the current management and continue symptomatic treatment. I would recommend cautious IV diuretics and monitor creatinine closely. Consult Cardiology. Broad-spectrum IV antibiotics. Obtain cultures. Resume the home medications. Ativan p.r.n. Substance abuse counseling. Overall prognosis guarded because of multiple complex medical issues as listed above and further recommendations to follow. MMODL / IJN: [id number] / NISSA
[2020-02-27 06:12] LABS: Basophils # (A) 0.1 k/uL (0-0.2); Basophils % (A) 2 %; Eosinophils # (A) 0.1 k/uL (0-0.7); Eosinophils % (A) 2 %; HCT 41.3 % (39.0-53.0); HGB 12.6 gm/dL (13.0-17.5); Hypochromasia Slight; Lymphocytes % (A) 39 %; MCH 29.3 pg (25.0-35.0); MCHC 30.5 g/dL (31.0-37.0); MCV 96.2 fL (80.0-100.0); Mean Platelet Volume 9.3; Monocytes # (A) 0.4 k/uL (0-1.0); Monocytes % (A) 7 %; Neutrophils # (A) 2.5 k/uL (1.3-7.7); Neutrophils % (A) 48 %; Platelet Count 113 k/uL (150-450); RBC 4.29 m/uL (4.30-5.90); RDW 14.3 % (11.5-15.5); WBC 5.3 k/uL (3.8-10.6)
[2020-02-27 06:21] LABS: INR 1.3 (<1.2)
[2020-02-27 06:27] LABS: Glucose,Whole Blood 187 mg/dL (75-99)
[2020-02-27 06:38] LABS: Calcium 7.8 mg/dL (8.4-10.2); Potassium 3.9 mmol/L (3.5-5.1)
[2020-02-27] MEDS: PANTOPRAZOLE 40 MG TABLET PO SCH (06:50)
[2020-02-27] MEDS: CLOPIDOGREL 75 MG TAB PO SCH (08:31)
[2020-02-27] MEDS: ASPIRIN 81 MG PO SCH (08:31)
[2020-02-27] MEDS: METOPROLOL TARTRATE 50 MG TAB PO SCH ×2 (08:31→20:24)
[2020-02-27] MEDS: lisinopriL 10 MG TAB PO SCH (08:31)
[2020-02-27] MEDS: FUROSEMIDE 10 MG/ML 4 ML VIAL IV SCH ×2 (08:31→20:24)
[2020-02-27] MEDS: NICOTINE 14MG/24HR PATCH TRANSDERM SCH (08:32)
[2020-02-27] MEDS: GABAPENTIN 300 MG CAP PO SCH ×3 (08:32→21:42)
--- NOTE | 2020-02-27 10:04 | US ---
EXAMINATION TYPE: US renals and bladder DATE OF EXAM: 02/27/2020 COMPARISON: NONE CLINICAL HISTORY: kishore. EXAM MEASUREMENTS: Right Kidney: 9.6 x 4.9 x 4.9 cm Left Kidney: 10.8 x 5.6 x 4.6 cm Right Kidney: Inferior pole obscured by bowel gas, small amount of fluid in Pedroza's pouch Left Kidney: multiple cysts, largest measuring 1.3 x 1.2 x 1.3cm, mild free fluid adjacent to kidney Bladder: irregular wall, there appears to be a diverticulum. IMPRESSION: 1. Small amount of free fluid is present. 2. Left renal cysts 3. Renal ultrasound is otherwise unremarkable.
[2020-02-27 12:09] LABS: Glucose,Whole Blood 244 mg/dL (75-99)
[2020-02-27] MEDS: SPIRONOLACTONE 25 MG TAB PO SCH (13:26)
[2020-02-27] MEDS: INSULIN ASPART (NovoLOG) 100 UNIT/ML VIAL SQ SCH ×3 (13:26→21:32)
--- NOTE | 2020-02-27 13:28 | P.CRDCN ---
History of Present Illness History of present illness: HISTORY OF PRESENTING ILLNESS This is a pleasant 60-year-old male past medical history significant for severe ischemic cardiomyopathy, chronic systolic heart failure, coronary artery disease, hypertension, dyslipidemia, history of polysubstance abuse, hepatitis C, liver disease, chronic nicotine dependence and diabetes mellitus. He does not follow regularly with a bilingual medical assistant. We have been asked to see in consultation for heart failure. He was recently hospitalized at [facility] discharged on the . According to him when he was discharged he was feeling okay and his edema had improved however he woke up yesterday morning and noticed bilateral lower extremity significant edema as well as scrotal edema and abdominal fullness. He denies chest pain, shortness of breath, dizziness or palpitations. DIAGNOSTICS EKG reveals sinus mechanism with PVCs and T-wave inversions in the lateral leads. Consistent with previous EKGs. No acute ischemic changes noted. Chest xray negative for an acute cardiopulmonary process. Renal ultrasound reveals a small amount of free fluid. Laboratory reviewed, WBC 5.3, hemoglobin 12.6, platelets 113, INR 1.3, sodium 1 34, potassium 3.9, creatinine 1.29, initial troponin 0.107, 0.131 and 0.112, NT proBNP 5730. Current cardiac medications include Lasix 40 mg twice a day, Lopressor 50 mg twice a day, lisinopril 10 mg daily, Plavix 75 mg daily and aspirin 81 mg daily. Most recent cardiac catheterization in 2016 revealed intermediate in-stent restenosis of the mid RCA, left main is angiographically normal, ostial c ircumflex has a plaque in the range of 30%, proximal circumflex disease 30%, normal OM branch, LAD angiographically normal. At that time his ejection fraction was approximately 50% with basal inferior hypokinesia. Recent echocardiograms obtained in 2019 revealed severely impaired LV systolic function with ejection fraction in the 20-30% range with global hypokinesia, moderate aortic valve sclerosis with a mean gradient across the valve is 6 mmHg. REVIEW OF SYSTEMS At the time of my exam: CONSTITUTIONAL: Denies fever or chills. CARDIOVASCULAR: Denies chest pain, shortness of breath, orthopnea, PND or palpitations. RESPIRATORY: Denies cough. GASTROINTESTINAL: Denies abdominal pain, diarrhea, constipation, nausea or vomiting. MUSCULOSKELETAL: Denies myalgias. NEUROLOGIC: Denies numbness, tingling or weakness. ENDOCRINE: Denies fatigue, weight change, polydipsia or polyurina. GENITOURINARY: Denies burning, hematuria or urgency with micturation. HEMATOLOGIC: Denies history of anemia or bleeding. PHYSICAL EXAMINATION Blood pressure 125/85 heart rate 74 afebrile and maintaining oxygen saturation on room air. CONSTITUTIONAL: No apparent distress. HEENT: Head is normocephalic. Pupils are equal, round. Sclerae anicteric. Mucous membranes of the mouth are moist. Bilateral JVD. No carotid bruit. CHEST EXAMINATION: Lungs are clear to auscultation. No chest wall tenderness is noted on palpation or with deep breathing. HEART EXAMINATION: Regular rate and rhythm. S1, S2 heard. Systolic ejection murmur at the left sternal border, no gallops or rub. ABDOMEN: Firm, nontender. Positive bowel sounds. EXTREMITIES: 2+ peripheral pulses, 1+ bilateral lower extremity pitting edema and no calf tenderness. NEUROLOGIC EXAMINATION: Patient is awake, alert and oriented x3. ASSESSMENT Acute on chronic systolic heart failure Ascites Ischemic cardiomyopathy Troponin elevation likely secondary to supply-demand mismatch and heart failure Hepatitis C with thrombocytopenia and elevated INR Hypertension Dyslipidemia Coronary artery disease Polysubstance abuse, last used methamphetamine last week after being clean for 8 months Chronic nicotine dependence Diabetes mellitus PLAN Fluid overload secondary to heart failure and liver disease. Consider GI evaluation. Continue to diurese with IV lasix and add aldactone. Follow renal function and electrolytes in the morning. Repeat 2-D echocardiogram and Doppler study to assess cardiac structure and function. Documented accurate intake and output along with daily weights. Further recommendations to follow based upon clinical course. Lengthy discussion with the patient regarding ongoing substance abuse cessation as well as smoking cessation. Thank you kindly for this consultation. Nurse Practitioner note has been reviewed, I agree with a documented findings and plan of care. Patient was seen and examined. Past Medical History Past Medical History: Coronary Artery Disease (CAD), Heart Failure, COPD, CVA/TIA, Diabetes Mellitus, Hyperlipidemia, Hypertension, Liver Disease, Myoc ardial Infarction ([place]) Additional Past Medical History / Comment(s): Ischemic cardiomyopathy, PVCs, CVA 2018 with L sided weakness, chronic low back pain d/t vertebral fractures years ago as well as cervical pinched nerves, DDD, IDDM type II, neuropathy bilateral hands/legs and feet, hep c Last Myocardial Infarction Date:: October 2018 History of Any Multi-Drug Resistant Organisms: None Reported Past Surgical History: Cholecystectomy, Heart Catheterization, Heart Catheterization With Stent, Tonsillectomy Additional Past Surgical History / Comment(s): R heel I&D, colonoscopy. Past Anesthesia/Blood Transfusion Reactions: No Reported Reaction Date of Last Stent Placement:: 2011 Past Psychological History: Anxiety, Bipolar, Depression Smoking Status: Current every day smoker, Former smoker Past Alcohol Use History: None Reported Past Drug Use History: Heroin, Marijuana - Past Family History Mother Family Medical History: Cancer Father Family Medical History: Coronary Artery Disease (CAD), Diabetes Mellitus, Hypertension Medications and Allergies Home Medications Medication Instructions Recorded Confirmed Type Aspirin 81 mg PO DAILY #30 chew 06/20/19 02/26/20 Rx lisinopriL [Zestril] 10 mg PO DAILY #30 tab 06/20/19 02/26/20 Rx Ergocalciferol [Vitamin D2 50,000 unit PO FR 11/19/19 02/26/20 History (DRISDOL)] HYDROcodone/APAP 7.5-325MG [[place] 1 tab PO QID PRN 11/19/19 02/26/20 History 7.5-325] INSULIN LISPRO (HumaLOG) [humaLOG] See Protocol SQ AC-TID 11/19/19 02/26/20 History Insulin Glargine,Hum.rec.anlog 30 unit SQ HS 11/19/19 02/26/20 History [Basaglar Kwikpen U-100] Albuterol Sulfate [Ventolin HFA] 1 - 2 puff INHALATION RT-Q6H PRN 12/08/19 02/26/20 History Clopidogrel Bisulfate [Plavix] 75 mg PO DAILY 12/08/19 02/26/20 History Albuterol Nebulized [Ventolin 2.5 mg INHALATION Q4H PRN 02/26/20 02/26/20 History Nebulized] Baclofen 10 mg PO TID PRN 02/26/20 02/26/20 History Furosemide [Lasix] 40 mg PO BID 02/26/20 02/26/20 History Gabapentin [Neurontin] 300 mg PO TID 02/26/20 02/26/20 History Metoprolol Tartrate [Lopressor] 50 mg PO BID 02/26/20 02/26/20 History Allergies Allergy/AdvReac Type Severity Reaction Status Date / Time Penicillins Allergy Unknown Verified 02/26/20 20:44 Childhood metformin AdvReac Mild Nausea Verified 02/26/20 21:04 Physical Exam Vitals: Vital Signs Temp Pulse Pulse Resp BP BP Pulse Ox 02/27/20 08:00 98.4 F 79 19 125/85 97 02/27/20 04:00 76 18 114/85 100 02/27/20 00:15 78 17 117/89 100 02/26/20 22:30 97.8 F 60 19 129/79 100 02/26/20 21:00 60 19 02/26/20 20:06 81 18 120/84 02/26/20 18:41 86 18 110/74 100 02/26/20 17:50 98.4 F 94 20 113/74 95 Intake and Output 02/26/20 02/27/20 02/27/20 22:59 06:59 14:59 Intake Total 75.913 Output Total 300 651 Balance -300 -575.087 Intake: Intake, IV Titration 75.913 Amount Heparin Sod,Pork in 0.45% 75.913 NaCl 25,000 unit In 0.45 % NaCl 1 250ml.bag @ 12 UNITS/KG/HR 8.709 mls/hr IV .Q24H [facility] Rx#: [id number] Output: Urine 300 651 Other: Voiding Method Toilet Toilet Toilet Urinal Urinal Urinal # Voids 1 1 1 # Bowel Movements 1 Weight 72.575 kg 73.1 kg Results 02/27/20 05:54 02/27/20 05:54 Cardiac Enzymes 02/26/20 02/26/20 Range/Units 18:29 18:29 AST 66 H (17-59) U/L Troponin I 0.107 H* (0.000-0.034) ng/mL Coagulation 02/26/20 02/27/20 02/27/20 Range/Units 18:29 00:43 05:54 PT 12.3 H 13.0 H (9.0-12.0) sec APTT 27.4 83.1 H (22.0-30.0) sec CBC 02/26/20 02/27/20 Range/Units 18:29 05:54 WBC 5.0 5.3 (3.8-10.6) k/uL RBC 4.00 L 4.29 L (4.30-5.90) m/uL Hgb 12.1 L 12.6 L (13.0-17.5) gm/dL Hct 37.7 L 41.3 (39.0-53.0) % Plt Count 134 L 113 L (150-450) k/uL Comprehensive Metabolic Panel 02/26/20 02/27/20 Range/Units 18:29 05:54 Sodium 135 L 134 L (137-145) mmol/L Potassium 3.7 3.9 (3.5-5.1) mmol/L Chloride 104 103 (98-107) mmol/L Carbon Dioxide 21 L 24 (22-30) mmol/L BUN 31 H 30 H (9-20) mg/dL Creatinine 1.51 H 1.29 H (0.66-1.25) mg/dL Glucose 223 H 184 H (74-99) mg/dL Calcium 8.2 L 7.8 L (8.4-10.2) mg/dL AST 66 H (17-59) U/L ALT 44 (4-49) U/L Alkaline Phosphatase 133 H (38-126) U/L Total Protein 6.1 L (6.3-8.2) g/dL Albumin 3.3 L (3.5-5.0) g/dL Current Medications Generic Name Dose Route Start Last Admin Trade Name Freq PRN Reason Stop Dose Admin Hydrocodone Bitart/Acetaminophen 1 each 02/26/20 23:39 [place] 7.5-325 PO QID PRN Pain Albuterol Sulfate 2.5 mg 02/26/20 23:39 Ventolin Nebulized INHALATION RT-Q6H PRN Shortness Of Breath Albuterol Sulfate 2.5 mg 02/26/20 23:39 Ventolin Nebulized INHALATION Q4H PRN Shortness Of Breath Aspirin 81 mg 02/27/20 09:00 02/27/20 08:31 Aspirin PO 81 mg DAILY MIRLANDE Administration Baclofen 10 mg 02/26/20 23:39 Lioresal PO TID PRN Muscle Spasm Clopidogrel Bisulfate 75 mg 02/27/20 09:00 02/27/20 08:31 Plavix PO 75 mg DAILY MIRLANDE Administration Ergocalciferol 50,000 unit 03/03/20 09:00 Vitamin D2 PO Fr@0900 MIRLANDE Furosemide 40 mg 02/27/20 09:00 02/27/20 08:31 Lasix IV 40 mg Q12HR MIRLANDE Administration Gabapentin 300 mg 02/27/20 09:00 02/27/20 08:32 Neurontin PO 300 mg TID MIRLANDE Administration Heparin Sodium (Porcine) 0 unit 02/26/20 19:57 Heparin IV PER PROTOCOL PRN Low PTT Protocol Hydromorphone HCl 0.5 mg 02/26/20 23:43 02/27/20 08:32 Dilaudid IVP 0.5 mg Q4HR PRN Administration Severe Pain Heparin Sodium/Sodium Chloride 250 mls @ 8.709 mls/hr 02/26/20 20:00 02/27/20 04:57 25,000 unit/ Sodium Chloride IV 10 units/kg/hr .Q24H [facility]AN[facility] 7.258 mls/hr Titration Protocol 12 UNITS/KG/HR Cefazolin Sodium 2 gm/ Sodium 50 mls @ 100 mls/hr 02/27/20 00:00 02/27/20 08:31 Chloride IVPB 100 mls/hr Q8HR MIRLANDE Administration Insulin Detemir 30 unit 02/27/20 21:00 Levemir SQ HS [facility] Lisinopril 10 mg 02/27/20 09:00 02/27/20 08:31 Zestril PO 10 mg DAILY [facility] Administration Lorazepam 1 mg 02/26/20 23:43 Ativan PO Q6HR PRN Anxiety Metoprolol Tartrate 50 mg 02/27/20 09:00 02/27/20 08:31 Lopressor PO 50 mg BID MIRLANDE Administration Naloxone HCl 0.2 mg 02/26/20 19:45 Narcan IV Q2M PRN Opioid Reversal Nicotine 1 patch 02/27/20 09:00 02/27/20 08:32 Habitrol 14mg/24hr Patch TRANSDERM 1 patch DAILY MIRLANDE Administration Pantoprazole Sodium 40 mg 02/27/20 07:30 02/27/20 06:50 Protonix PO 40 mg AC-BRKFST MIRLANDE Administration Temazepam 15 mg 02/26/20 23:43 Restoril PO HS PRN Insomnia Intake and Output 02/26/20 02/27/20 02/27/20 22:59 06:59 14:59 Intake Total 75.913 Output Total 300 651 Balance -300 -575.087 Intake: Intake, IV Titration 75.913 Amount Heparin Sod,Pork in 0.45% 75.913 NaCl 25,000 unit In 0.45 % NaCl 1 250ml.bag @ 12 UNITS/KG/HR 8.709 mls/hr IV .Q24H [facility] Rx#: [id number] Output: Urine 300 651 Other: Voiding Method Toilet Toilet Toilet Urinal Urinal Urinal # Voids 1 1 1 # Bowel Movements 1 Weight 72.575 kg 73.1 kg 02/27/20 05:54 02/27/20 05:54
[2020-02-27] MEDS ORDERED: ONDANSETRON 4 MG/2 ML VIAL IVP PRN (15:25)
--- NOTE | 2020-02-27 16:09 | PN ---
PROGRESS NOTE DATE OF SERVICE: 02/27/2020 This 60-year-old gentleman who was admitted with bilateral leg swelling and as well as severe pain and cellulitis is being closely monitored. The patient had possibly congestive heart failure acute exacerbation as well as leg swelling from the chronic liver disease also. Creatinine was elevated 1.29, and APTT was 54 and 4 and troponin elevated 0.112. The patient was seen by Cardiology who recommended continue with diuresis with IV Lasix and Aldactone. Otherwise, renal ultrasound was also requested which showed small amount of free fluid and left renal cyst. No chest pain. No palpitations. No fever. Past medical history reviewed. REVIEW OF SYSTEMS: Cardiovascular: As mentioned earlier. Respiratory: As mentioned earlier. GI: As mentioned earlier. as mentioned earlier. NERVOUS SYSTEM: No numbness or weakness. CURRENT MEDICATIONS: Reviewed and include: 1. [place] 7.5. 2. Ventolin. 3. Aspirin. 4. Lioresal. 5. Cefazolin. 6. Plavix. 7. Vitamin D2. 8. Lasix. 9. Neurontin. 10.Heparin. 11.Dilaudid. 12.Levemir. 13.Zestril. 14.Ativan. 15.Lopressor. 16.Narcan. 17.Protonix. 18.Aldactone. 19.Restoril. PHYSICAL EXAM: Patient is alert, oriented x3. Pulse 66. Blood pressure is 106/68, respiration 18, temperature 98.4, pulse ox 100 percent on room air. HEENT is conjunctivae normal. Oral mucosa moist. NECK is no jugular venous distention. No carotid bruit. No lymph node enlargement. CARDIOVASCULAR: S1, S2. No S3, no S4. RESPIRATION: Breath sounds diminished in the bases. A few scattered rhonchi. No crackles. ABDOMEN: Soft. Mild distention, ascites present. LEGS: Bilateral leg edema, cellulitis also present. NERVOUS SYSTEM: No focal deficits. LABS: WBC 5, hemoglobin 12.6, platelets 113. Sodium 134, creatinine is 1.29. Troponins are noted. ASSESSMENT: 1. Acute bilateral leg edema, possibly multifactorial secondary to congestive heart failure acute exacerbation with acute on chronic systolic dysfunction ejection fraction 25%, as well as possible acute on chronic liver disease. 2. Troponin 0.117. Rule out acute coronary event. 3. Increased creatinine with acute renal failure possibly prerenal acute tubular necrosis. 4. Hyponatremia. 5. History of previous methamphetamine or ice usage. 6. Anemia, normocytic anemia of chronic disease. 7. Thrombocytopenia secondary to chronic liver disease. 8. Mild coagulopathy secondary to chronic liver disease. 9. History of coronary artery disease. 10.History of chronic obstructive pulmonary disease. 11.History of cerebrovascular accident/transient ischemic attack. 12.Diabetes mellitus type 2. 13.Hypertension. 14.Hyperlipidemia. 15.History of myocardial infarction. 16.History ischemic cardiomyopathy. 17.Degenerative joint disease. 18.History of cholecystectomy. 19.Diffuse skin lesions. 20.History of coronary artery disease/stent. 21.History of anxiety/bipolar depression. 22.History of nicotine dependence, continued ongoing. 23.History of polysubstance abuse including heroin, THC, previously. 24.Acute bilateral leg cellulitis. RECOMMENDATIONS AND DISCUSSION: This 60-year-old gentleman presented with multiple complex medical issues, at this time I recommend to continue the current medications, management and symptomatic treatment. Continue with antibiotics. Continue the diuretics. The patient already had dermatology appointment with Dr. March in the next few weeks. We will monitor creatinine closely which is slightly improving at 1.29 today. Otherwise, continue the rest of medications. Follow closely with Cardiology. Medication was adjusted. We will monitor the potassium very closely because of the evidence of renal failure. Guarded prognosis. Further recommendations to follow. MMODL / IJN: [id number] /
[2020-02-27 16:52] LABS: Glucose,Whole Blood 95 mg/dL (75-99)
[2020-02-27 19:59] LABS: Glucose,Whole Blood 104 mg/dL (75-99)
[2020-02-27] MEDS ORDERED: INSULIN DETEMIR (LEVEMIR) 100 UNIT/ML SYR SQ SCH (21:00)
[2020-02-27] MEDS: HEPARIN SOD,PORK IN 0.45% NACL 25,000 UNIT in 0.45% NACL 1 250ML.BAG IV SCH (21:42)
[2020-02-28 01:25] VITALS: TEMP 98.3
[2020-02-28] MEDS: HYDROmorphone 0.5 MG/0.5 ML SYRINGE IVP PRN ×2 (04:04→08:43)
[2020-02-28 04:23] VITALS: RESP 16
[2020-02-28 06:02] LABS: Glucose,Whole Blood 79 mg/dL (75-99)
[2020-02-28] MEDS: PANTOPRAZOLE 40 MG TABLET PO SCH (06:22)
[2020-02-28] MEDS: INSULIN ASPART (NovoLOG) 100 UNIT/ML VIAL SQ SCH ×2 (06:23→12:14)
[2020-02-28 07:39] LABS: INR 1.3 (<1.2)
[2020-02-28 07:40] LABS: Basophils # (A) 0.1 k/uL (0-0.2); Basophils % (A) 1 %; Eosinophils # (A) 0.1 k/uL (0-0.7); Eosinophils % (A) 1 %; HCT 47.7 % (39.0-53.0); HGB 14.8 gm/dL (13.0-17.5); Hypochromasia Moderate; Lymphocytes # (A) 3.3 k/uL (1.0-4.8); Lymphocytes % (A) 42 %; MCH 30.3 pg (25.0-35.0); MCV 97.9 fL (80.0-100.0); Mean Platelet Volume 9.3; Monocytes # (A) 0.6 k/uL (0-1.0); Monocytes % (A) 7 %; Neutrophils # (A) 3.7 k/uL (1.3-7.7); Neutrophils % (A) 47 %; Platelet Count 137 k/uL (150-450); RBC 4.87 m/uL (4.30-5.90); RDW 14.3 % (11.5-15.5); WBC 7.8 k/uL (3.8-10.6)
[2020-02-28 07:53] LABS: Potassium 4.9 mmol/L (3.5-5.1)
[2020-02-28] MEDS: FUROSEMIDE 10 MG/ML 4 ML VIAL IV SCH (08:36)
[2020-02-28] MEDS: NICOTINE 14MG/24HR PATCH TRANSDERM SCH (08:36)
[2020-02-28] MEDS: GABAPENTIN 300 MG CAP PO SCH (08:37)
[2020-02-28] MEDS: METOPROLOL TARTRATE 50 MG TAB PO SCH (08:37)
[2020-02-28] MEDS: lisinopriL 10 MG TAB PO SCH (08:37)
[2020-02-28] MEDS: SPIRONOLACTONE 25 MG TAB PO SCH (08:37)
[2020-02-28] MEDS: ASPIRIN 81 MG PO SCH (08:37)
[2020-02-28] MEDS: CLOPIDOGREL 75 MG TAB PO SCH (08:37)
[2020-02-28 08:48] VITALS: BP 115/88; PULSE 68
--- NOTE | 2020-02-28 10:30 | P.PN ---
Subjective Progress Note Date: 02/28/20 CHIEF COMPLAINT: Lower extremity edema HISTORY OF PRESENT ILLNESS: Patient examined this morning at the bedside. Patient denies chest pain. He denies shortness of breath. He remains on IV heparin drip. He reports improvement in lower extremity edema. Echocardiogram has been completed and results are currently pending. Blood pressure stable this morning 115/88. Heart rate in the 60s. PHYSICAL EXAM: VITAL SIGNS: Reviewed. GENERAL: Well-developed in no acute distress. NECK: Supple. No JVD or thyromegaly LUNGS: Respirations even and unlabored. Lungs essentially clear to auscultation bilaterally. HEART: Regular rate and rhythm. S1 and S2 heard. Systolic murmur. EXTREMITIES: Normal range of motion. No clubbing or cyanosis. Peripheral pulses intact. Trace bilateral lower extremity edema ASSESSMENT: Acute on chronic systolic heart failure, echocardiogram from 2019 reveals EF 20- 30% Ascites Ischemic cardiomyopathy Troponin elevation likely secondary to supply-demand mismatch and heart failure Hepatitis C with thrombocytopenia and elevated INR Hypertension Dyslipidemia Coronary artery disease with previous stent placement Polysubstance abuse, last used methamphetamine last week after being clean for 8 months Chronic nicotine dependence Diabetes mellitus PLAN: -Discontinue IV heparin -Begin heparin subcu 5000 units every 8 hours -Discontinue IV Lasix. Transition to oral dosin mg PO BID -Monitor kidney function -Daily weights and accurate I&O -Echocardiogram ordered. Await results -Social work consulted for recent drug use Nurse practitioner note has been reviewed by physician. Signing provider agrees with the documented findings, assessment, and plan of care. Objective - Vital Signs Vital signs: Vital Signs Temp 98.3 F 02/28/20 00:00 Pulse 68 02/28/20 08:00 Resp 16 02/28/20 08:00 BP 115/88 02/28/20 08:00 Pulse Ox 91 L 02/28/20 08:00 Intake & Output 02/27/20 02/28/20 02/28/20 18:59 06:59 18:59 Intake Total 672 601.572 600 Output Total 400 Balance 272 601.572 600 Weight 70.6 kg Intake: Intake, IV Titration 121.572 Amount Heparin Sod,Pork in 0.45% 121.572 NaCl 25,000 unit In 0.45 % NaCl 1 250ml.bag @ 12 UNITS/KG/HR 8.709 mls/hr IV .Q24H [facility] Rx#: [id number] Oral 672 480 600 Output: Urine 400 Other: Voiding Method Toilet Toilet Urinal Urinal # Voids 3 2 # Bowel Movements 1 - Labs CBC & Chem 7: 02/28/20 07:11 02/28/20 07:11 Labs: Abnormal Lab Results - Last 24 Hours (Table) 02/27/20 02/27/20 02/27/20 Range/Units 10:09 11:19 12:07 Plt Count (150-450) k/uL PT (9.0-12.0) sec INR (<1.2) APTT 54.4 H (22.0-30.0) sec Sodium (137-145) mmol/L BUN (9-20) mg/dL Creatinine (0.66-1.25) mg/dL Glucose (74-99) mg/dL POC Glucose (mg/dL) 244 H (75-99) mg/dL Calcium (8.4-10.2) mg/dL Troponin I 0.112 H* (0.000-0.034) ng/mL 02/27/20 02/28/20 02/28/20 Range/Units 19:57 07:11 07:11 Plt Count 137 L (150-450) k/uL PT 13.0 H (9.0-12.0) sec INR 1.3 H (<1.2) APTT (22.0-30.0) sec Sodium (137-145) mmol/L BUN (9-20) mg/dL Creatinine (0.66-1.25) mg/dL Glucose (74-99) mg/dL POC Glucose (mg/dL) 104 H (75-99) mg/dL Calcium (8.4-10.2) mg/dL Troponin I (0.000-0.034) ng/mL 02/28/20 Range/Units 07:11 Plt Count (150-450) k/uL PT (9.0-12.0) sec INR (<1.2) APTT (22.0-30.0) sec Sodium 134 L (137-145) mmol/L BUN 35 H (9-20) mg/dL Creatinine 1.34 H (0.66-1.25) mg/dL Glucose 55 L (74-99) mg/dL POC Glucose (mg/dL) (75-99) mg/dL Calcium 8.0 L (8.4-10.2) mg/dL Troponin I (0.000-0.034) ng/mL Microbiology - Last 24 Hours (Table) 02/27/20 05:00 Gram Stain - Preliminary Leg - Left Wound Culture - Preliminary Presumptive Staph aureus 02/27/20 00:43 Blood Culture - Preliminary Blood No Growth after 24 hours
--- NOTE | 2020-02-28 11:00 | ECHOF ---
Referral Reason:sob, trop elev MEASUREMENTS -------- HEIGHT: 175.3 cm WEIGHT: 70.3 kg BP: 99/59 IVSd: 1.1 cm (0.6 - 1.1) LVIDd: 5.4 cm (3.9 - 5.3) LVPWd: 1.5 cm (0.6 - 1.1) EDV(Teich): 144 ml IVSs: 1.2 cm LVIDs: 5.4 cm LVPWs: 1.5 cm %IVS Thck: 7 % ESV(Teich): 142 ml EF(Teich): 1 % %FS: 1 % SV(Teich): 2 ml LVOT Diam: 2.0 cm RVIDd: 2.8 cm (< 3.3) IVC: 23.01 mm TRES Planimetry: 1.4 cm LALs A4C: 5.2 cm LAAs A4C: 16.6 cm LAESV A-L A4C: 45 ml LAESV MOD A4C: 40 ml LALs A2C: 5.3 cm LAAs A2C: 19.7 cm LAESV A-L A2C: 63 ml LAESV MOD A2C: 60 ml LAESV(A-L): 53 ml LAESV Index (A-L): 28.65 ml/m Ao Diam: 2.4 cm (2.0 - 3.7) LA Diam: 4.1 cm (2.7 - 3.8) AV Cusp: 1.2 cm (1.5 - 2.6) EPSS: 2.2 cm MV E [place]: 0.65 m/s MV DecT: 148 ms MV Dec [place]: 4.4 m/s MV A [place]: 0.22 m/s MV E/A Ratio: 3.01 MV PHT: 43 ms MR Vmax: 1.64 m/s MR maxP.77 mmHg LVOT Vmax: 0.50 m/s LVOT maxP.98 mmHg LVOT Vmax: 0.54 m/s LVOT Vmean: 0.32 m/s LVOT maxP.18 mmHg LVOT meanP.50 mmHg LVOT Env.Ti: 245 ms LVOT VTI: 7.8 cm AV Vmax: 0.99 m/s AV maxP.92 mmHg TRES Vmax, Pt: 1.6 cm TRES Vmax: 1.7 cm AV Vmax: 1.10 m/s AV Vmean: 0.83 m/s AV maxP.84 mmHg AV meanP.04 mmHg AV Env.Ti: 249 ms AV VTI: 20.7 cm TRES Vmax: 1.5 cm TRES (VTI): 1.2 cm TRES Vmax, Pt: 1.4 cm TR Vmax: 2.38 m/s TR maxP.74 mmHg RAP: 15.00 mmHg RVSP: 37.74 mmHg MV EF SLOPE: 150.46 mm/s (70 - 150) MV EXCURSION: 12.49 mm (> 18.000) FINDINGS -------- This was a technically good study. The left ventricular size is normal. There is mild concentric left ventricular hypertrophy. There is severe global hypokinesis of LV . Overall left ventricular systolic function is severely impair ed with, an EF between 20 - 25 %. The right ventricle is normal in size. The left atrial size is normal. Normal LA size by volume 22+/-6 ml/m2. The right atrial size is normal. Interatrial and interventricular septum intact. Aortic valve is trileaflet and is mildly thickened. Peak/mean gradient across the Aortic Valve is 4 .84mmHg / 3.04mmHg. Aortic valve appears stenotic. Unable to get gradient based on very low EF. The mitral valve is normal. The mitral valve leaflets are mildly thickened. Mild mitral regurgita tion is present. The tricuspid valve appears structurally normal. Moderate tricuspid regurgitation present. There is mild pulmonary hypertension. The right ventricular systolic pressure, as measured by Doppler, is 37.74mmHg. There is no pulmonic regurgitation present. The aortic root size is normal. The inferior vena cava is mildly dilated. There is no pericardial effusion. CONCLUSIONS -------- 1. The left ventricular size is normal. 2. There is mild concentric left ventricular hypertrophy. 3. There is severe global hypokinesis of LV . 4. Overall left ventricular systolic function is severely impaired with, an EF between 20 - 25 %. 5. Aortic valve is trileaflet and is mildly thickened. 6. Peak/mean gradient across the Aortic Valve is 4.84mmHg / 3.04mmHg. 7. Decreased aortic leaflet excursion. Degree of aortic stenosis may be underestimated due to low fl ow state and cardiomyopathy. 8. The mitral valve leaflets are mildly thickened. 9. Mild mitral regurgitation is present. 10. Moderate tricuspid regurgitation present. 11. There is mild pulmonary hypertension. 12. The right ventricular systolic pressure, as measured by Doppler, is 37.74mmHg. 13. The inferior vena cava is mildly dilated. WASHERY ENGINEER: Latonia Garcia RDCS
[2020-02-28 11:50] LABS: Glucose,Whole Blood 68 mg/dL (75-99)
[2020-02-28 12:05] LABS: Glucose,Whole Blood 65 mg/dL (75-99)
[2020-02-28 12:26] LABS: Glucose,Whole Blood 109 mg/dL (75-99)
[2020-02-28] MEDS ORDERED: FUROSEMIDE 40 MG TAB PO SCH (16:00)
[2020-02-28] MEDS ORDERED: FUROSEMIDE 20 MG TAB PO SCH (16:00)
[2020-02-28] MEDS ORDERED: HEPARIN SODIUM,PORCINE 5,000 UNIT/ML 1 ML VIAL SQ SCH (16:00)
--- NOTE | 2020-02-29 08:55 | P.DS ---
Providers Date of admission: 02/26/20 19:45 Expected date of discharge: 02/28/20 Attending physician: Surya Rodriguez Consults: 02/26/20 19:46 Consult Physician Urgent Consulting Provider: [facility] Consult Reason/Comments: acute b/l le edema, aechf Do you want consulting provider notified?: Yes Primary care physician: [facility] Course: Final diagnosis Acute bilateral leg edema, possibly multifactorial secondary to congestive heart failure acute exacerbation with acute on chronic systolic dysfunction ejection fraction 25%, as well as possible acute on chronic liver disease Troponin 0.117. Ruled out acute coronary event Increased creatinine with acute renal failure, possibly prerenal acute tubular necrosis Hyponatremia History of previous methamphetamine or ice usage Anemia, normocytic anemia of chronic disease Thrombocytopenia secondary to chronic liver disease Mild coagulopathy secondary to chronic liver disease History of coronary artery disease History of chronic obstructive pulmonary disease History of CVA/TIA Diabetes mellitus type 2 Hypertension Hyperlipidemia History of myocardial infarction History of ischemic cardiomyopathy Degenerative joint disease History of cholecystectomy Diffuse skin lesions History of coronary artery disease/stent history of anxiety/bipolar depression History of nicotine dependence, continued and ongoing History of polysubstance abuse including heroin, THC, previously Acute bilateral leg cellulitis Discharge disposition Patient is being discharged in a stable condition with guarded prognosis to [facility]. Patient will follow-up with Dr. Jennings in the outpatient setting upon discharge. Patient also instructed to follow-up with Dr. skaggs in the outpatient setting. Patient is to continue with short course of oral antibiotics in the form of Keflex 500 mg 3 times daily for the next 5 days to complete the course along with lasix. Total time taken is greater than 35 minutes. History of present illness This is a 60-year-old male who was recently admitted with bilateral leg swelling as well as severe pain and cellulitis and was being closely monitored. Patient's wound cultures preliminary showing Staphylococcus aureus but the possibility of MRSA and patient will be continued on oral Keflex 500 mg 3 times daily for the next 5 days to complete the course. Patient was initiated on IV antibiotics. Patient was also seen and evaluated by cardiology for possible congestive heart failure acute exacerbation and maintained on IV diuresis which will be transitioned to oral Lasix along with Aldactone and patient will be following up with cardiology in the outpatient setting. Patient very persistent on going home today. Patient instructed to follow-up with primary care provider Dr. Jennings for follow-up on finalization of wound cultures and for reevaluation of bilateral lower extremities. Currently no reports of chest pain, shortness of breath, or palpitations. Patient is afebrile. No reports of nausea or vomiting and patient is tolerating diet. Patient will be discharged home today. Guarded prognosis. On exam vital signs are stable. Pulse is 68, respirations are 16, blood press ure is 115/88, oxygen saturation is 91% on room air. Cardio S1, S2 are muffled. Respiratory system shows diminished breath sounds at the bases with no wheezing or rhonchi noted. Abdomen is soft and nontender. Nervous system shows no focal deficits. Please refer to medication reconciliation sheet for a list of medications. Patient Condition at Discharge: Stable Plan - Discharge Summary Discharge Rx Participant: Yes New Discharge Prescriptions: New Spironolactone [Aldactone] 25 mg PO DAILY 30 Days #30 tab Cephalexin [Keflex] 500 mg PO Q8HR 5 Days #15 cap Furosemide [Lasix] 60 mg PO BID@0900,1600 30 Days #60 tab Continue Aspirin 81 mg PO DAILY #30 chew lisinopriL [Zestril] 10 mg PO DAILY #30 tab Ergocalciferol [Vitamin D2 (DRISDOL)] 50,000 unit PO FR HYDROcodone/APAP 7.5-325MG [[place] 7.5-325] 1 tab PO QID PRN PRN Reason: Pain Insulin Glargine,Hum.rec.anlog [Basaglar Kwikpen U-100] 30 unit SQ HS INSULIN LISPRO (HumaLOG) [humaLOG] See Protocol SQ AC-TID Clopidogrel Bisulfate [Plavix] 75 mg PO DAILY Albuterol Sulfate [Ventolin HFA] 1 - 2 puff INHALATION RT-Q6H PRN PRN Reason: Shortness Of Breath Albuterol Nebulized [Ventolin Nebulized] 2.5 mg INHALATION Q4H PRN PRN Reason: Shortness Of Breath Metoprolol Tartrate [Lopressor] 50 mg PO BID Baclofen 10 mg PO TID PRN PRN Reason: Muscle Spasm Gabapentin [Neurontin] 300 mg PO TID Discontinued Furosemide [Lasix] 40 mg PO BID Discharge Medication List Aspirin 81 mg PO DAILY #30 chew 06/20/19 [Rx] lisinopriL [Zestril] 10 mg PO DAILY #30 tab 06/20/19 [Rx] Ergocalciferol [Vitamin D2 (DRISDOL)] 50,000 unit PO FR 11/19/19 [History] HYDROcodone/APAP 7.5-325MG [[place] 7.5-325] 1 tab PO QID PRN 11/19/19 [History] INSULIN LISPRO (HumaLOG) [humaLOG] See Protocol SQ AC-TID 11/19/19 [History] Insulin Glargine,Hum.rec.anlog [Basaglar Kwikpen U-100] 30 unit SQ HS 11/19/19 [History] Albuterol Sulfate [Ventolin HFA] 1 - 2 puff INHALATION RT-Q6H PRN 12/08/19 [History] Clopidogrel Bisulfate [Plavix] 75 mg PO DAILY 12/08/19 [History] Albuterol Nebulized [Ventolin Nebulized] 2.5 mg INHALATION Q4H PRN 02/26/20 [History] Baclofen 10 mg PO TID PRN 02/26/20 [History] Gabapentin [Neurontin] 300 mg PO TID 02/26/20 [History] Metoprolol Tartrate [Lopressor] 50 mg PO BID 02/26/20 [History] Cephalexin [Keflex] 500 mg PO Q8HR 5 Days #15 cap 02/28/20 [Rx] Furosemide [Lasix] 60 mg PO BID@0900,1600 30 Days #60 tab 02/28/20 [Rx] Spironolactone [Aldactone] 25 mg PO DAILY 30 Days #30 tab 02/28/20 [Rx] Follow up Appointment(s)/Referral(s): Matthew Skaggs MD [STAFF PHYSICIAN] - 1 Week (office will call with an appointment. ) Pramod Jennings MD [Primary Care Provider] - 03/15/20 11:00 am Ambulatory/Diagnostic Orders: Basic Metabolic Panel [LAB.AMB] Time Frame: 2 Days, Location: None Selected Patient Instructions/Handouts: Heart Failure (ER) Activity/Diet/Wound Care/Special Instructions: Activity Limited until follow-up Continue current diabetic heart healthy diet Continue to monitor blood sugars before meals at bedtime keep a diary for primary care follow-up Continue with antibiotics 3 times daily for the next 5 days Repeat labs in 2-3 days to monitor kidney functions Follow-up with primary care provider upon discharge Follow-up with cardiology in the outpatient setting Discharge Disposition: HOME SELF-CARE
[2020-03-03] MEDS ORDERED: ERGOCALCIFEROL 50,000 UNIT CAP PO SCH (09:00)
== END 2020-02-28 14:29 | disposition home or self-care (01) | DRG 291 ==
LOC: EC 17:37 → 1SOBS 19:45 → OBSVTOIN 19:45 → 3SCARD 20:14
PROVIDERS: ADMIT Hospitalist; ATTEND Hospitalist
DX: I11.0 Hypertensive heart disease with heart failure (principal); N17.0 Acute kidney failure with tubular necrosis; L03.115 Cellulitis of right lower limb; L03.116 Cellulitis of left lower limb; R18.8 Other ascites; D68.4 Acquired coagulation factor deficiency; E87.1 Hypo-osmolality and hyponatremia; I50.23 Acute on chronic systolic (congestive) heart failure; J44.9 Chronic obstructive pulmonary disease, unspecified; M19.90 Unspecified osteoarthritis, unspecified site; R79.89 Other specified abnormal findings of blood chemistry; B95.62 Methicillin resistant Staphylococcus aureus infection as the cause of diseases classified elsewhere; I25.5 Ischemic cardiomyopathy; I25.2 Old myocardial infarction; I35.8 Other nonrheumatic aortic valve disorders; I49.3 Ventricular premature depolarization; N28.1 Cyst of kidney, acquired; N50.89 Other specified disorders of the male genital organs; E11.40 Type 2 diabetes mellitus with diabetic neuropathy, unspecified; D63.8 Anemia in other chronic diseases classified elsewhere; B19.20 Unspecified viral hepatitis C without hepatic coma; D69.59 Other secondary thrombocytopenia; E78.5 Hyperlipidemia, unspecified; F17.210 Nicotine dependence, cigarettes, uncomplicated; F31.9 Bipolar disorder, unspecified; F41.9 Anxiety disorder, unspecified; I25.10 Atherosclerotic heart disease of native coronary artery without angina pectoris; Z79.02 Long term (current) use of antithrombotics/antiplatelets; Z79.4 Long term (current) use of insulin; Z79.82 Long term (current) use of aspirin; Z79.899 Other long term (current) drug therapy; Z82.49 Family history of ischemic heart disease and other diseases of the circulatory system; Z83.3 Family history of diabetes mellitus; Z86.73 Personal history of transient ischemic attack (TIA), and cerebral infarction without residual deficits; Z90.49 Acquired absence of other specified parts of digestive tract; Z95.5 Presence of coronary angioplasty implant and graft; F11.11 Opioid abuse, in remission; F12.11 Cannabis abuse, in remission; F15.11 Other stimulant abuse, in remission; Z80.3 Family history of malignant neoplasm of breast; Z88.0 Allergy status to penicillin; Z88.8 Allergy status to other drugs, medicaments and biological substances
CPT/HCPCS: 36415; 71046; 76770; 80048; 80053; 83880; 84484; 85025; 85610; 85730; 87040; 87070; 87077; 87186; 87205; 93005; 93306; 94640; 96365; 96375; 96376; 99285

== ENCOUNTER 2020-12-07 09:46 | Emergency (ER) | payer MEDICAID, OTHER ==
[2020-12-07 10:01] VITALS: RESP 18; TEMP 100.4
[2020-12-07] MEDS ORDERED: ONDANSETRON 4 MG/2 ML VIAL IVP STA (10:02)
[2020-12-07] MEDS ORDERED: MORPHINE SULFATE 4 MG/ML SYRINGE IVP STA ×2 (10:02→13:13)
--- NOTE | 2020-12-07 10:05 | ED ---
General Adult HPI - General Chief complaint: Recheck/Abnormal Lab/Rx Stated complaint: Pain all over Time Seen by Provider: 12/07/20 09:48 Source: patient, EMS, RN notes reviewed, old records reviewed, Caregiver (Hospice nurse) Mode of arrival: EMS Limitations: physical limitation - History of Present Illness Initial comments: Patient is a 60-year-old male presenting to the emergency department complaining of generalized pain. Patient does have chronic pain. Patient is on hospice secondary to renal and heart failure. Patient normally is on morphine however sold it by a hotel room when he left the nursing facility. Patient did not want to stay there secondary to Covid restriction. Patient states pain is similar to his chronic pain. Patient states he has been clean of heroin now 19 months. Hospice nurse states they're just here for short-term pain control. - Related Data Home Medications Medication Instructions Recorded Confirmed Clopidogrel Bisulfate [Plavix] 75 mg PO DAILY 12/08/19 12/07/20 Albuterol Nebulized [Ventolin 2.5 mg INHALATION RT-Q6H 02/26/20 12/07/20 Nebulized] Calamine/Zinc Oxide Lotion 1 applic TOPICAL Q3H PRN 12/07/20 12/07/20 [Calamine Lotion] Docusate [Colace] 100 mg PO DAILY 12/07/20 12/07/20 Doxycycline Hyclate [Vibramycin] 100 mg PO BID 12/07/20 12/07/20 Furosemide [Lasix] 40 mg PO BID 12/07/20 12/07/20 Gabapentin 800 mg PO TID 12/07/20 12/07/20 LORazepam [Ativan] 0.5 mg PO Q4H 12/07/20 12/07/20 Menthol [Biofreeze] 1 applic TOPICAL QID PRN 12/07/20 12/07/20 Morphine Sulfate ER [Ms Contin] 60 mg PO Q12HR 12/07/20 12/07/20 Morphine Sulfate Ir [MSIR] 15 mg PO Q6HR PRN 12/07/20 12/07/20 Nicotine 21Mg/24Hr Patch [Habitrol] 1 patch TRANSDERM DAILY 12/07/20 12/07/20 Ondansetron [Zofran] 4 mg PO Q8HR PRN 12/07/20 12/07/20 carvediloL [Coreg] 6.25 mg PO BID 12/07/20 12/07/20 metOLazone [Zaroxolyn] 2.5 mg PO BID 12/07/20 12/07/20 Allergies Allergy/AdvReac Type Severity Reaction Status Date / Time Penicillins Allergy Unknown Verified 12/07/20 11:03 Childhood metformin AdvReac Mild Nausea Verified 12/07/20 11:03 Review of Systems ROS Statement: Those systems with pertinent positive or pertinent negative responses have been documented in the HPI. ROS Other: All systems not noted in ROS Statement are negative. Constitutional: Denies: fever Eyes: Denies: eye pain ENT: Denies: ear pain Endocrine: Denies: fatigue Gastrointestinal: Reports: nausea Musculoskeletal: Reports: as per HPI Past Medical History Past Medical History: Coronary Artery Disease (CAD), Heart Failure, COPD, CVA/TIA, Diabetes Mellitus, Hyperlipidemia, Hypertension, Liver Disease, Myocardial Infarction ([place]) Additional Past Medical History / Comment(s): Ischemic cardiomyopathy, PVCs, CVA 2019 with L sided weakness, chronic low back pain d/t vertebral fractures years ago as well as cervical pinched nerves, DDD, IDDM type II, neuropathy bilateral hands/legs and feet, hep c Last Myocardial Infarction Date:: October 2018 History of Any Multi-Drug Resistant Organisms: MRSA Date of last positivie culture/infection: 11/23/20 MDRO Source:: FOOT MRSA Past Surgical History: Cholecystectomy, Heart Catheterization, Heart Catheterization With Stent, Tonsillectomy Additional Past Surgical History / Comment(s): R heel I&D, colonoscopy. Past Anesthesia/Blood Transfusion Reactions: No Reported Reaction Date of Last Stent Placement:: 2011 Past Psychological History: Anxiety, Bipolar, Depression Smoking Status: Current every day smoker, Former smoker Past Alcohol Use History: None Reported Past Drug Use History: Heroin, Marijuana - Past Family History Mother Family Medical History: Cancer Father Family Medical History: Coronary Artery Disease (CAD), Diabetes Mellitus, Hypertension General Exam Limitations: physical limitation General appearance: alert Head exam: Present: atraumatic Eye exam: Present: normal appearance Neck exam: Present: normal inspection Respiratory exam: Present: normal lung sounds bilaterally Cardiovascular Exam: Present: regular rate, normal rhythm GI/Abdominal exam: Present: soft. Absent: tenderness Extremities exam: Present: normal inspection Neurological exam: Present: alert Psychiatric exam: Present: anxious Skin exam: Present: other (Old healed lesions consistent with skin popping) Course Vital Signs 12/07/20 12/07/20 12/07/20 09:54 12:01 13:11 Temperature 100.4 F H Pulse Rate 91 86 87 Respiratory 18 18 18 Rate Blood Pressure 114/81 151/101 148/92 O2 Sat by Pulse 100 99 99 Oximetry - Reevaluation(s) Reevaluation #1: 12/07/20 11:53 This note may be used as a history and physical. 12/07/20 12:24 Patient was earlier evaluated improved, discomfort had gone down to 4/10. Hospice is seeking placement currently. Disposition Clinical Impression: Chronic pain Disposition: HOME SELF-CARE Condition: Stable Instructions (If sedation given, give patient instructions): Chronic Pain (ED) Additional Instructions: Follow-up with hospice as directed. Return for change or worsening symptoms or any other concerns. Discharged to nursing facility. Is patient prescribed a controlled substance at d/c from ED?: No Referrals: Liang Araiza DO [Primary Care Provider] - 1-2 days Time of Disposition: 14:19
[2020-12-07 13:13] VITALS: BP 148/92; PULSE 87
== END 2020-12-07 12:00 ==
LOC: EC 09:46 → SUPCPDRO 09:46 → EC 12:00
DX: G89.29 Other chronic pain (principal); R11.0 Nausea; E11.9 Type 2 diabetes mellitus without complications; F17.200 Nicotine dependence, unspecified, uncomplicated; I11.0 Hypertensive heart disease with heart failure; I50.9 Heart failure, unspecified; I25.10 Atherosclerotic heart disease of native coronary artery without angina pectoris; I25.5 Ischemic cardiomyopathy; J44.9 Chronic obstructive pulmonary disease, unspecified; I25.2 Old myocardial infarction; Z79.4 Long term (current) use of insulin; Z79.899 Other long term (current) drug therapy; Z86.73 Personal history of transient ischemic attack (TIA), and cerebral infarction without residual deficits; Z88.0 Allergy status to penicillin; Z88.8 Allergy status to other drugs, medicaments and biological substances; Z79.02 Long term (current) use of antithrombotics/antiplatelets
CPT/HCPCS: 99283; 96374; 96376; J2270; J2405

== ENCOUNTER 2021-01-18 13:07 | Inpatient (IN) | payer MEDICAID, OTHER ==
[2021-01-18] MEDS ORDERED: MORPHINE SULFATE 4 MG/ML SYRINGE IV STA (13:32)
--- NOTE | 2021-01-18 13:36 | ED ---
General Adult HPI - General Chief complaint: Recheck/Abnormal Lab/Rx Stated complaint: Failure to Thrive Time Seen by Provider: 01/18/21 13:24 Source: patient Mode of arrival: ambulatory Limitations: no limitations - History of Present Illness Initial comments: Dictation was produced using [employer] dictation software. please excuse any grammatical, word or spelling errors. Chief Complaint: 61-year-old male requesting to be admitted to snf History of Present Illness: She is 61-year-old male he presents to the emergency department today to be admitted to the snf. Patient has history of cardiac myopathy with 7% ejection fraction. He signed out of hospice 3 weeks ago. He was a resident at many lodged snf however he wanted to sign out. He signed out 3 weeks ago on since then has been living at his brother's house. States that over the last several days he's been growing weaker and weaker. States that his brother cannot take care of him because his brother is at work. He has no other family or friends that could help take care of him. Patient states that his legs are getting weaker and that he is having increasing pain to his bilateral feet and hands. He denies any constitutional symptoms. No shortness of breath. Denies any lower extremity swelling. He called [facility] earlier today in order to be admitted. Staff told him to come to the emergency department. The ROS documented in this emergency department record has been reviewed and confirmed by me. Those systems with pertinent positive or negative responses have been documented in the HPI. All other systems are other negative and/or noncontributory. PHYSICAL EXAM: General Impression: Alert and oriented x3, not in acute distress HEENT: Normocephalic atraumatic, extra-ocular movements intact, pupils equal and reactive to light bilaterally, mucous membranes moist. Cardiovascular: Heart regular rate and rhythm Chest: Able to complete full sentences, no retractions, no tachypnea Abdomen: abdomen soft, non-tender, non-distended, no organomegaly Musculoskeletal: Pulses present and equal in all extremities, no peripheral edema Motor: no focal deficits noted Neurological: CN II-XII grossly intact, no focal motor or sensory deficits noted Skin: Dry ulcer to the lateral right foot Psych: Normal affect and mood ED course: 61-year-old male presents to the emergency department for grave disability. He is requesting to be admitted back to the snf. Vital signs upon arrival are within acceptable limits. I did speak with Ermelinda from hospice. The family with the patient. Patient has a history of selling his pain prescriptions and signing out of snf on multiple occasions to go live with his brother. Ermelinda also reports that patient's brother brought meth for him to use in the snf. Laboratory evaluation obtained. CBC is unremarkable. Metabolic panel is negative. Patient be admitted for social reasons. Case discussed with Dr. Ramirez was willing to accept patients care. EKG interpretation: Ventricular rate 96, DC interval 150, QRS 82, QTc 442. No DC prolongation, no QTC prolongation, no ST or T-wave changes noted. EKG compared to 02/26/2020 showing no changes. Overall, this EKG is unremarkable - Related Data Home Medications Medication Instructions Recorded Confirmed Clopidogrel Bisulfate [Plavix] 75 mg PO DAILY 12/08/19 12/07/20 Albuterol Nebulized [Ventolin 2.5 mg INHALATION RT-Q6H 02/26/20 12/07/20 Nebulized] Calamine/Zinc Oxide Lotion 1 applic TOPICAL Q3H PRN 12/07/20 12/07/20 [Calamine Lotion] Docusate [Colace] 100 mg PO DAILY 12/07/20 12/07/20 Doxycycline Hyclate [Vibramycin] 100 mg PO BID 12/07/20 12/07/20 Furosemide [Lasix] 40 mg PO BID 12/07/20 12/07/20 Gabapentin 800 mg PO TID 12/07/20 12/07/20 LORazepam [Ativan] 0.5 mg PO Q4H 12/07/20 12/07/20 Menthol [Biofreeze] 1 applic TOPICAL QID PRN 12/07/20 12/07/20 Morphine Sulfate ER [Ms Contin] 60 mg PO Q12HR 12/07/20 12/07/20 Morphine Sulfate Ir [MSIR] 15 mg PO Q6HR PRN 12/07/20 12/07/20 Nicotine 21Mg/24Hr Patch [Habitrol] 1 patch TRANSDERM DAILY 12/07/20 12/07/20 Ondansetron [Zofran] 4 mg PO Q8HR PRN 12/07/20 12/07/20 carvediloL [Coreg] 6.25 mg PO BID 12/07/20 12/07/20 metOLazone [Zaroxolyn] 2.5 mg PO BID 12/07/20 12/07/20 Allergies Allergy/AdvReac Type Severity Reaction Status Date / Time Penicillins Allergy Unknown Verified 01/18/21 13:19 Childhood metformin AdvReac Mild Nausea Verified 01/18/21 13:19 Review of Systems ROS Statement: Those systems with pertinent positive or pertinent negative responses have been documented in the HPI. ROS Other: All systems not noted in ROS Statement are negative. Past Medical History Past Medical History: Coronary Artery Disease (CAD), Heart Failure, COPD, CVA/TIA, Diabetes Mellitus, Hyperlipidemia, Hypertension, Liver Disease, Myocardial Infarction (CA) Additional Past Medical History / Comment(s): Ischemic cardiomyopathy, PVCs, CVA 2018 with L sided weakness, chronic low back pain d/t vertebral fractures years ago as well as cervical pinched nerves, DDD, IDDM type II, neuropathy bilateral hands/legs and feet, hep c Last Myocardial Infarction Date:: October 2018 History of Any Multi-Drug Resistant Organisms: MRSA Date of last positivie culture/infection: 11/23/20 MDRO Source:: FOOT MRSA Past Surgical History: Cholecystectomy, Heart Catheterization, Heart Catheterization With Stent, Tonsillectomy Additional Past Surgical History / Comment(s): R heel I&D, colonoscopy. Past Anesthesia/Blood Transfusion Reactions: No Reported Reaction Date of Last Stent Placement:: 2011 Past Psychological History: Anxiety, Bipolar, Depression Smoking Status: Current every day smoker, Former smoker Past Alcohol Use History: None Reported Past Drug Use History: Heroin, Marijuana - Past Family History Mother Family Medical History: Cancer Father Family Medical History: Coronary Artery Disease (CAD), Diabetes Mellitus, Hypertension General Exam Limitations: no limitations Course Vital Signs 01/18/21 13:20 Temperature 98 F Pulse Rate 101 H Respiratory 18 Rate Blood Pressure 182/116 O2 Sat by Pulse 100 Oximetry Medical Decision Making - Lab Data Result diagrams: 01/18/21 13:55 01/18/21 14:07 Lab Results 01/18/21 01/18/21 Range/Units 13:55 14:07 WBC 7.7 (3.8-10.6) k/uL RBC 4.33 (4.30-5.90) m/uL Hgb 13.9 (13.0-17.5) gm/dL Hct 40.6 (39.0-53.0) % MCV 93.9 (80.0-100.0) fL MCH 32.1 (25.0-35.0) pg MCHC 34.2 (31.0-37.0) g/dL RDW 13.5 (11.5-15.5) % Plt Count 148 L (150-450) k/uL MPV 8.5 Neutrophils % 64 % Lymphocytes % 24 % Monocytes % 7 % Eosinophils % 2 % Basophils % 0 % Neutrophils # 5.0 (1.3-7.7) k/uL Lymphocytes # 1.8 (1.0-4.8) k/uL Monocytes # 0.6 (0-1.0) k/uL Eosinophils # 0.2 (0-0.7) k/uL Basophils # 0.0 (0-0.2) k/uL Sodium 134 L (137-145) mmol/L Potassium 4.9 (3.5-5.1) mmol/L Chloride 109 H (98-107) mmol/L Carbon Dioxide 22 (22-30) mmol/L Anion Gap 3 mmol/L BUN 27 H (9-20) mg/dL Creatinine 0.78 (0.66-1.25) mg/dL Est GFR (CKD-EPI)AfAm >90 (>60 ml/min/1.73 sqM) Est GFR (CKD-EPI)NonAf >90 (>60 ml/min/1.73 sqM) Glucose 238 H (74-99) mg/dL Calcium 8.7 (8.4-10.2) mg/dL Disposition Clinical Impression: Gravely disabled Disposition: ADMITTED IP TO THIS HOSP Condition: Fair Referrals: None,Stated [Primary Care Provider] - 1-2 days
[2021-01-18 14:17] LABS: Basophils % (A) 0 %; Eosinophils # (A) 0.2 k/uL (0-0.7); Eosinophils % (A) 2 %; HCT 40.6 % (39.0-53.0); HGB 13.9 gm/dL (13.0-17.5); Lymphocytes # (A) 1.8 k/uL (1.0-4.8); Lymphocytes % (A) 24 %; MCH 32.1 pg (25.0-35.0); MCHC 34.2 g/dL (31.0-37.0); MCV 93.9 fL (80.0-100.0); Mean Platelet Volume 8.5; Monocytes # (A) 0.6 k/uL (0-1.0); Monocytes % (A) 7 %; Neutrophils % (A) 64 %; Platelet Count 148 k/uL (150-450); RBC 4.33 m/uL (4.30-5.90); RDW 13.5 % (11.5-15.5); WBC 7.7 k/uL (3.8-10.6)
[2021-01-18 14:29] LABS: African American GFR (CKD) >90 (>60 ml/min/1.73 sqM); Anion Gap 3 mmol/L; Blood Urea Nitrogen 27 mg/dL (9-20); Calcium 8.7 mg/dL (8.4-10.2); Carbon Dioxide 22 mmol/L (22-30); Chloride 109 mmol/L (98-107); Glucose 238 mg/dL (74-99); Non-African American GFR(CKD) >90 (>60 ml/min/1.73 sqM); Potassium 4.9 mmol/L (3.5-5.1); Sodium 134 mmol/L (137-145)
[2021-01-18] MEDS ORDERED: NALOXONE 0.4 MG/ML 1 ML VIAL IV PRN (14:50)
--- NOTE | 2021-01-18 16:09 | P.HPIM ---
History of Present Illness Patient is a 60-year-old male with a known history of coronary artery disease with stent placement, chronic CHF EF 20-25 %, history of CVA/TIA, diabetes type 2 insulin-dependent, hypertension, hyperlipidemia and history of [place] and other multiple medical problems . Patient states that he was at [facility] for hospice because of his weak heart patient states that his EF is 7% , 3 weeks ago because of his denial, he thinks that was a mistake he made because he had difficulty at home where he fell about one week ago down 3 stairs are not concrete and since then he cannot walk and he has pain in his right lower extremity from the toe up to the hip and in the left lower extremity from the toe up to above the knee has difficulty walking since then, he cannot walk. Also he is complaining of from progressive weakness in his right hand, although he states that he has this weakness over a year but now is worse. Is fully awake and oriented, no headache. He is in distress due to pain and asking for pain medication and he agrees with morphine. He has also pain in his back. He feels hungry and he wants to eat No diarrhea or dysuria but he has 7 difficulty urinating Her history patient has been on hospice with low ejection fraction per history ejection fraction is 7% per ED attending. Echocardiogram performed 02/27/2021 ejection fraction of 20-25% with severe global hypokinesia of the left ventricle. He has moderate tricuspid regurgitation Vitals showing blood pressure of 182/116. Heart rate 101. He is saturating 1 00% on room air. CBC is unremarkable, BMP showing only mild hyponatremia at 134 and glucose 238 Patient conference to me that he is no code, to me he does not want any aggressive workup, no x-rays even if he has a fracture Review of Systems CONSTITUTIONAL: No fever, no malaise, no fatigue. HEENT: No recent visual problems or hearing problems. Denied any sore throat. CARDIOVASCULAR: No orthopnea, PND, no palpitations, no syncope. PULMONARY: No chest wall tenderness, no hemoptysis. GASTROINTESTINAL: No diarrhea, no nausea, no vomiting, no abdominal pain. Normoa ctive bowel sounds. NEUROLOGICAL: No headaches, no weakness, no numbness. HEMATOLOGICAL: Denies any bleeding or petechiae. GENITOURINARY: Denies any burning micturition, frequency, or urgency. -MUSCULOSKELETAL/RHEUMATOLOGICAL: As above ENDOCRINE: Denies any polyuria or polydipsia. Past Medical History Past Medical History: Coronary Artery Disease (CAD), Heart Failure, COPD, CVA/TIA, Diabetes Mellitus, Hyperlipidemia, Hypertension, Liver Disease, Myocar dial Infarction (NH) Additional Past Medical History / Comment(s): Ischemic cardiomyopathy, PVCs, CVA 2019 with L sided weakness, chronic low back pain d/t vertebral fractures years ago as well as cervical pinched nerves, DDD, IDDM type II, neuropathy bilateral hands/legs and feet, hep c Last Myocardial Infarction Date:: October 2018 History of Any Multi-Drug Resistant Organisms: MRSA Date of last positivie culture/infection: 11/23/20 MDRO Source:: FOOT MRSA Past Surgical History: Cholecystectomy, Heart Catheterization, Heart Catheterization With Stent, Tonsillectomy Additional Past Surgical History / Comment(s): R heel I&D, colonoscopy. Past Anesthesia/Blood Transfusion Reactions: No Reported Reaction Date of Last Stent Placement:: 2011 Past Psychological History: Anxiety, Bipolar, Depression Smoking Status: Current every day smoker, Former smoker Past Alcohol Use History: None Reported Past Drug Use History: Heroin, Marijuana - Past Family History Mother Family Medical History: Cancer Father Family Medical History: Coronary Artery Disease (CAD), Diabetes Mellitus, Hypertension Medications and Allergies Home Medications Medication Instructions Recorded Confirmed Type No Known Home Medications 01/18/21 01/18/21 History Allergies Allergy/AdvReac Type Severity Reaction Status Date / Time Penicillins Allergy Unknown Verified 01/18/21 15:52 Childhood metformin AdvReac Mild Nausea Verified 01/18/21 15:52 Physical Exam Vitals: Vital Signs Temp Pulse Resp BP Pulse Ox 01/18/21 13:20 98 F 101 H 18 182/116 100 Intake and Output 01/17/21 01/18/21 01/18/21 22:59 06:59 14:59 Other: Weight 61.235 kg GENERAL: The patient is alert and oriented x3, not in any acute distress. Well developed, well nourished. HEENT: Pupils are round and equally reacting to light. EOMI. No scleral icterus. No conjunctival pallor. Normocephalic, atraumatic. No pharyngeal erythema. No thyromegaly. CARDIOVASCULAR: S1 and S2 present. No murmurs, rubs, or gallops. PULMONARY: Chest is clear to auscultation, no wheezing or crackles. ABDOMEN: Soft, nontender, nondistended, normoactive bowel sounds. No palpable organomegaly. -MUSCULOSKELETAL: No joint swelling or deformity. Weakness and examination is limited by tenderness in his both lower extremities. EXTREMITIES: No cyanosis, clubbing, or pedal edema. NEUROLOGICAL: Gross neurological examination did not reveal any focal deficits. Weakness of both lower extremities. 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 No petechiae Results CBC & Chem 7: 01/18/21 13:55 01/18/21 14:07 Labs: Abnormal Lab Results - Last 24 Hours (Table) 01/18/21 01/18/21 Range/Units 13:55 14:07 Plt Count 148 L (150-450) k/uL Sodium 134 L (137-145) mmol/L Chloride 109 H (98-107) mmol/L BUN 27 H (9-20) mg/dL Glucose 238 H (74-99) mg/dL Assessment and Plan Assessment: Recent hospice care and patient discharged himself and now he wants to be back on hospice for end-stage cardiac disease Recent fall about one week ago associated with bilateral lower extremity pain and inability to walk Acute on chronic systolic CHF with ejection fraction of 20-25 %. Severe global hypokinesia. Moderate tricuspid regurgitation Ischemic cardiomyopathy Ascites and anasarca Elevated troponin, Hepatitis C with thrombocytopenia Acute kidney injury, secondary to cardiorenal syndrome. improving History of coronary artery disease status post stent placement Diabetes type 2 insulin-dependent Hypertension Hyperlipidemia History of polysubstance abuse Nicotine dependence Plan: This is a pleasant 61 years old male who presents with end stage cardiac disease, he was on hospice and discharged himself and now he wants back on hospice. Also he has fall and pain especially in his lower extremity Continue with morphine for pain management Reconsult rubber factory worker consult Labs and medication were reviewed.. Continue same treatment. Continue with symptomatic treatment. Resume home medication. Monitor lytes and vitals. DVT and GI prophylaxis. Further recommendations depends on the clinical course of the patient No code, per patient request Prognosis is very poor in guarded
[2021-01-18] MEDS: MORPHINE SULFATE 4 MG/ML SYRINGE IVP PRN ×2 (16:46→21:01)
[2021-01-19] MEDS: MORPHINE SULFATE 4 MG/ML SYRINGE IVP PRN ×3 (00:56→12:31)
--- NOTE | 2021-01-19 15:10 | P.PN ---
Subjective Patient is a 60-year-old male with a known history of coronary artery disease with stent placement, chronic CHF EF 20-25 %, history of CVA/TIA, diabetes type 2 insulin-dependent, hypertension, hyperlipidemia and history of [place] and other multiple medical problems . Patient states that he was at [facility] for hospice because of his weak heart patient states that his EF is 7% , 3 weeks ago because of his denial, he thinks that was a mistake he made because he had difficulty at home where he fell about one week ago down 3 stairs are not concr ete and since then he cannot walk and he has pain in his right lower extremity from the toe up to the hip and in the left lower extremity from the toe up to above the knee has difficulty walking since then, he cannot walk. Also he is complaining of from progressive weakness in his right hand, although he states that he has this weakness over a year but now is worse. Is fully awake and oriented, no headache. He is in distress due to pain and asking for pain medication and he agrees with morphine. He has also pain in his back. He feels hungry and he wants to eat No diarrhea or dysuria but he has 7 difficulty urinating Her history patient has been on hospice with low ejection fraction per history ejection fraction is 7% per ED attending. Echocardiogram performed 02/27/2021 ejection fraction of 20-25% with severe global hypokinesia of the left ventricle. He has moderate tricuspid regurgit ation Vitals showing blood pressure of 182/116. Heart rate 101. He is saturating 100% on room air. CBC is unremarkable, BMP showing only mild hyponatremia at 134 and glucose 238 Patient conference to me that he is no code, to me he does not want any aggressive workup, no x-rays even if he has a fracture 01/19/2021 Patient today is awake and alert, no chest pain or dyspnea. He looks listless s leepy but easily arousable and appropriate. Yesterday he was complaining of from severe pain in his lower extremity and refused to move them, however today he was noticed to move his both legs to full extension and briskly with no difficulty Patient does not want any other medications or further testing because he wants to go back to hospice I discussed the case with the upper caser Pravin, patient used to be at [facility] but refused to take him back because of his noncompliance and drug problems. manager garden/social organization professor working on alternatives. We'll change his IV morphine to oral morphine. Objective - Vital Signs Vital signs: Vital Signs Temp 98.0 F 01/19/21 11:42 Pulse 78 01/19/21 11:42 Resp 16 01/19/21 11:42 BP 177/97 01/19/21 11:42 Pulse Ox 97 01/19/21 11:42 Intake & Output 01/18/21 01/19/21 01/19/21 18:59 06:59 18:59 Intake Total 590 Output Total 325 200 300 Balance -325 390 -300 Weight 61.235 kg Intake: Oral 590 Output: Urine 325 200 300 Other: Voiding Method Urinal # Voids 1 - Exam GENERAL: The patient is alert and oriented x3, not in any acute distress. Well developed, well nourished. HEENT: Pupils are round and equally reacting to light. EOMI. No scleral icterus. No conjunctival pallor. Normocephalic, atraumatic. No pharyngeal erythema. No thyromegaly. CARDIOVASCULAR: S1 and S2 present. No murmurs, rubs, or gallops. PULMONARY: Chest is clear to auscultation, no wheezing or crackles. ABDOMEN: Soft, nontender, nondistended, normoactive bowel sounds. No palpable organomegaly. -MUSCULOSKELETAL: No joint swelling or deformity. Weakness and examination is limited by patient is able to move both lower extremities EXTREMITIES: No cyanosis, clubbing, or pedal edema. NEUROLOGICAL: Gross neurological examination did not reveal any focal deficits. Weakness of both lower extremities. 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 No petechiae - Labs CBC & Chem 7: 01/18/21 13:55 01/18/21 14:07 Assessment and Plan Assessment: Recent hospice care and patient discharged himself and now he wants to be back on hospice for end-stage cardiac disease Recent fall about one week ago associated with bilateral lower extremity pain and inability to walk, however today's patient is able to move his lower extremity more freely Weakness of the right upper extremity, patient is refusing further workup stating and wants to go for hospice Acute on chronic systolic CHF with ejection fraction of 20-25 %. Severe global hypokinesia. Moderate tricuspid regurgitation Ischemic cardiomyopathy Ascites and anasarca Elevated troponin, Hepatitis C with thrombocytopenia Acute kidney injury, secondary to cardiorenal syndrome. improving History of coronary artery disease status post stent placement Diabetes type 2 insulin-dependent Hypertension Hyperlipidemia History of polysubstance abuse Nicotine dependence Plan: This is a pleasant 61 years old male who presents with end stage cardiac disease, he was on hospice and discharged himself and now he wants back on hospice. Also he has fall and pain especially in his lower extremity Continue with morphine for pain management , switched to oral doses Reconsult hospice entrance attendant consult Labs and medication were reviewed.. Continue same treatment. Continue with symptomatic treatment. Resume home medication. Monitor lytes and vitals. DVT and GI prophylaxis. Further recommendations depends on the clinical course of the patient No code, per patient request Prognosis is very poor and guarded
[2021-01-19] MEDS: MORPHINE SULFATE IR 15 MG TABLET PO PRN ×2 (15:31→22:22)
[2021-01-19] MEDS: amLODIPine 5 MG TAB PO SCH (15:31)
[2021-01-20] MEDS: MORPHINE SULFATE IR 15 MG TABLET PO PRN ×3 (07:30→21:07)
[2021-01-20] MEDS: amLODIPine 5 MG TAB PO SCH (07:31)
--- NOTE | 2021-01-20 14:55 | ECHOF ---
Referral Reason:Rule out heart disease MEASUREMENTS -------- HEIGHT: 180.3 cm WEIGHT: 61.2 kg BP: IVSd: 1.2 cm (0.6 - 1.1) LVIDd: 4.8 cm (3.9 - 5.3) LVPWd: 1.3 cm (0.6 - 1.1) IVSs: 1.4 cm LVIDs: 3.1 cm LVPWs: 1.8 cm Ao Diam: 3.3 cm (2.0 - 3.7) AV Cusp: 1.8 cm (1.5 - 2.6) LA Diam: 3.9 cm (2.7 - 3.8) MV EXCURSION: 19.436 mm (> 18.000) MV EF SLOPE: 97 mm/s (70 - 150) EPSS: 3.9 cm MV E [place]: 0.52 m/s MV DecT: 217 ms MV A [place]: 0.91 m/s MV E/A Ratio: 0.57 RAP: 5.00 mmHg RVSP: 11.42 mmHg FINDINGS -------- Sinus rhythm. This was a technically adequate study. The left ventricular size is normal. Left ventricular wall thickness is normal. Overall left vent ricular systolic function is mild-moderately impaired with, an EF between 40 - 45 %. The RV was not well visualized. The left atrial size is normal. The right atrial size is normal. There is mild aortic valve sclerosis. The mitral valve is normal. Mild mitral regurgitation is present. The tricuspid valve appears structurally normal. Mild tricuspid regurgitation present. Right vent ricular systolic pressure is normal at < 35 mmHg. The pulmonic valve was not well visualized. There is no pulmonic regurgitation present. The aortic root size is normal. Normal inferior vena cava with normal inspiratory collapse consistent with estimated right atrial pre ssure of 5 mmHg. There is no pericardial effusion. CONCLUSIONS -------- 1. Left ventricular wall thickness is normal. 2. Overall left ventricular systolic function is mild-moderately impaired with, an EF between 40 - 45 %. 3. The left atrial size is normal. 4. There is mild aortic valve sclerosis. 5. Mild mitral regurgitation is present. 6. Mild tricuspid regurgitation present. 7. There is no pericardial effusion. OBSTETRICS TECH: Latonia Garcia RDCS
--- NOTE | 2021-01-20 21:10 | P.PN ---
Subjective Patient is a 60-year-old male with a known history of coronary artery disease with stent placement, chronic CHF EF 20-25 %, history of CVA/TIA, diabetes type 2 insulin-dependent, hypertension, hyperlipidemia and history of MD and other multiple medical problems . Patient states that he was at [facility] for hospice because of his weak heart patient states that his EF is 7% , 3 weeks ago because of his denial, he thinks that was a mistake he made because he had difficulty at home where he fell about one week ago down 3 stairs are not concr ete and since then he cannot walk and he has pain in his right lower extremity from the toe up to the hip and in the left lower extremity from the toe up to above the knee has difficulty walking since then, he cannot walk. Also he is complaining of from progressive weakness in his right hand, although he states that he has this weakness over a year but now is worse. Is fully awake and oriented, no headache. He is in distress due to pain and asking for pain medication and he agrees with morphine. He has also pain in his back. He feels hungry and he wants to eat No diarrhea or dysuria but he has 7 difficulty urinating Her history patient has been on hospice with low ejection fraction per history ejection fraction is 7% per ED attending. Echocardiogram performed 02/27/2021 ejection fraction of 20-25% with severe global hypokinesia of the left ventricle. He has moderate tricuspid regurgit ation Vitals showing blood pressure of 182/116. Heart rate 101. He is saturating 100% on room air. CBC is unremarkable, BMP showing only mild hyponatremia at 134 and glucose 238 Patient conference to me that he is no code, to me he does not want any aggressive workup, no x-rays even if he has a fracture 01/19/2021 Patient today is awake and alert, no chest pain or dyspnea. He looks listless s leepy but easily arousable and appropriate. Yesterday he was complaining of from severe pain in his lower extremity and refused to move them, however today he was noticed to move his both legs to full extension and briskly with no difficulty Patient does not want any other medications or further testing because he wants to go back to hospice I discussed the case with the bilingual patient support caseworker Pravin, patient used to be at [facility] but refused to take him back because of his noncompliance and drug problems. bank sales and service manager/social media marketing manager working on alternatives. We'll change his IV morphine to oral morphine. 01/20/2021 Patient used to be in hospice for advanced cardiac disease as he informed me, discussed the case with bilingual patient support caseworker Pravin and she confirmed to me he was on hospice and discharged himself from hospice care. Patient states that this happened about 3 weeks ago Patient is sleepy when I walk into the room over who works up to verbal stimuli and he is appropriate mentally. He denies any shortness of breath or coughing or abdominal pain, nausea vomiting or diarrhea. Her he is asking to be given IV morphine pain medication, he is currently on morphine 15 mg every 6 hours for pain in his both hips, feet and hands. Patient states that his pain in hands and feet is for long time, months and years, most likely diabetic nephropathy Also is complaining of from pain in both hip areas, however he declined to do hip x-rays, he is able to flex his both hips and extending quickly and briskly no difficulty, making the possible of hip fracture is a relatively low Also patient noticed to have high blood pressure was systolic 170 to 180s, which does not go with his history of advanced heart disease, therefore we repeated the echocardiogram, patient informed and he agrees. Echo was done and the result is pending. Objective - Vital Signs Vital signs: Vital Signs Temp 98.5 F 01/20/21 04:49 Pulse 76 01/20/21 04:49 Resp 16 01/20/21 04:49 BP 174/91 01/20/21 04:49 Pulse Ox 98 01/20/21 04:49 Intake & Output 01/19/21 01/20/21 01/20/21 18:59 06:59 18:59 Intake Total 590 Output Total 300 600 300 Balance -300 -10 -300 Intake: Oral 590 Output: Urine 300 600 300 Other: Voiding Method Urinal Urinal # Voids 1 1 1 - Exam GENERAL: The patient is alert and oriented x3, not in any acute distress. Well developed, well nourished. HEENT: Pupils are round and equally reacting to light. EOMI. No scleral icterus. No conjunctival pallor. Normocephalic, atraumatic. No pharyngeal erythema. No thyromegaly. CARDIOVASCULAR: S1 and S2 present. No murmurs, rubs, or gallops. PULMONARY: Chest is clear to auscultation, no wheezing or crackles. ABDOMEN: Soft, nontender, nondistended, normoactive bowel sounds. No palpable organomegaly. -MUSCULOSKELETAL: No joint swelling or deformity. Flexion and extension of hips is normal and full range EXTREMITIES: No cyanosis, clubbing, or pedal edema. NEUROLOGICAL: Gross neurological examination did not reveal any focal deficits. Weakness of both lower extremities. 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 No petechiae - Labs CBC & Chem 7: 01/18/21 13:55 01/18/21 14:07 Assessment and Plan Assessment: Recent hospice care and patient discharged himself and now he wants to be back on hospice for end-stage cardiac disease Recent fall about one week ago associated with bilateral lower extremity pain, however today's patient is able to move his lower extremity more freely Weakness of the right upper extremity, patient is refusing further workup st ating and wants to go for hospice Acute on chronic systolic CHF with ejection fraction of 20-25 %. Severe global hypokinesia. We'll repeat echocardiogram Moderate tricuspid regurgitation Ischemic cardiomyopathy Hepatitis C with very mild thrombocytopenia History of coronary artery disease status post stent placement Diabetes type 2 insulin-dependent Hypertension Hyperlipidemia History of polysubstance abuse Nicotine dependence Plan: This is a pleasant 61 years old male who presents with advanced stage cardiac disease, he was on hospice and discharged himself and now he wants back on hospice. Also he has fall and pain especially in his lower extremity Continue with morphine for pain management , switched to oral doses Reconsult metal control worker consult We will check echocardiogram to examine the function of the heart Labs and medication were reviewed.. Continue same treatment. Continue with symptomatic treatment. Resume home medication. Monitor lytes and vitals. DVT and GI prophylaxis. Further recommendations depends on the clinical course of the patient No code, per patient request Prognosis is very poor and guarded
[2021-01-21] MEDS: amLODIPine 5 MG TAB PO SCH (07:20)
[2021-01-21] MEDS: MORPHINE SULFATE IR 15 MG TABLET PO PRN (07:20)
[2021-01-21] MEDS ORDERED: FAMOTIDINE 20 MG/2 ML VIAL IV SCH (12:28)
--- NOTE | 2021-01-21 12:58 | P.PN ---
Subjective Patient is a 60-year-old male with a known history of coronary artery disease with stent placement, chronic CHF EF 20-25 %, history of CVA/TIA, diabetes type 2 insulin-dependent, hypertension, hyperlipidemia and history of NE and other multiple medical problems . Patient states that he was at [facility] for hospice because of his weak heart patient states that his EF is 7% , 3 weeks ago because of his denial, he thinks that was a mistake he made because he had difficulty at home where he fell about one week ago down 3 stairs are not concr ete and since then he cannot walk and he has pain in his right lower extremity from the toe up to the hip and in the left lower extremity from the toe up to above the knee has difficulty walking since then, he cannot walk. Also he is complaining of from progressive weakness in his right hand, although he states that he has this weakness over a year but now is worse. Is fully awake and oriented, no headache. He is in distress due to pain and asking for pain medication and he agrees with morphine. He has also pain in his back. He feels hungry and he wants to eat No diarrhea or dysuria but he has 7 difficulty urinating Her history patient has been on hospice with low ejection fraction per history ejection fraction is 7% per ED attending. Echocardiogram performed 02/27/2021 ejection fraction of 20-25% with severe global hypokinesia of the left ventricle. He has moderate tricuspid regurgit ation Vitals showing blood pressure of 182/116. Heart rate 101. He is saturating 100% on room air. CBC is unremarkable, BMP showing only mild hyponatremia at 134 and glucose 238 Patient conference to me that he is no code, to me he does not want any aggressive workup, no x-rays even if he has a fracture 01/19/2021 Patient today is awake and alert, no chest pain or dyspnea. He looks listless s leepy but easily arousable and appropriate. Yesterday he was complaining of from severe pain in his lower extremity and refused to move them, however today he was noticed to move his both legs to full extension and briskly with no difficulty Patient does not want any other medications or further testing because he wants to go back to hospice I discussed the case with the piano case maker Pravin, patient used to be at [facility] but refused to take him back because of his noncompliance and drug problems. manager quality compliance/social psychologist working on alternatives. We'll change his IV morphine to oral morphine. 01/20/2021 Patient used to be in hospice for advanced cardiac disease as he informed me, discussed the case with piano case maker Pravin and she confirmed to me he was on hospice and discharged himself from hospice care. Patient states that this happened about 3 weeks ago Patient is sleepy when I walk into the room over who works up to verbal stimuli and he is appropriate mentally. He denies any shortness of breath or coughing or abdominal pain, nausea vomiting or diarrhea. Her he is asking to be given IV morphine pain medication, he is currently on morphine 15 mg every 6 hours for pain in his both hips, feet and hands. Patient states that his pain in hands and feet is for long time, months and years, most likely diabetic nephropathy Also is complaining of from pain in both hip areas, however he declined to do hip x-rays, he is able to flex his both hips and extending quickly and briskly no difficulty, making the possible of hip fracture is a relatively low Also patient noticed to have high blood pressure was systolic 170 to 180s, which does not go with his history of advanced heart disease, therefore we repeated the echocardiogram, patient informed and he agrees. Echo was done and the result is pending. 01/21/2021 Patient remains clinically the same, fully awake and oriented. No dyspnea. Troponin is able to walk to the restroom using a walker by himself. He complains from pain in his both feet and hands and also an hips and requesting morphine shots, explained for the patient he does not need narcotics most likely this is neuropathic pain Patient declined to x-rays of the hip Echocardiogram done yesterday showed ejection fraction of 50-55% which is low normal per report no significant valvular heart disease Normal creatinine Patient confirmed to me he was in hospice due to severe heart disease and kidney disease, explained to the patient both of these are normal Objective - Vital Signs Vital signs: Vital Signs Temp 99.0 F 01/21/21 05:00 Pulse 77 01/21/21 05:00 Resp 16 01/21/21 05:00 BP 173/90 01/21/21 05:00 Pulse Ox 100 01/21/21 05:00 Intake & Output 07/01/21/21 01/21/21 18:59 06:59 18:59 Intake Total 1580 590 Output Total 300 200 200 Balance 1280 390 -200 Intake: Oral 1580 590 Output: Urine 300 200 200 Other: Voiding Method Urinal Toilet # Voids 3 3 - Exam GENERAL: The patient is alert and oriented x3, not in any acute distress. Well developed, well nourished. HEENT: Pupils are round and equally reacting to light. EOMI. No scleral icterus. No conjunctival pallor. Normocephalic, atraumatic. No pharyngeal erythema. No thyromegaly. CARDIOVASCULAR: S1 and S2 present. No murmurs, rubs, or gallops. PULMONARY: Chest is clear to auscultation, no wheezing or crackles. ABDOMEN: Soft, nontender, nondistended, normoactive bowel sounds. No palpable organomegaly. -MUSCULOSKELETAL: No joint swelling or deformity. Flexion and extension of hips is normal and full range EXTREMITIES: No cyanosis, clubbing, or pedal edema. NEUROLOGICAL: Gross neurological examination did not reveal any focal deficits. Weakness of both lower extremities. 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 No petechiae - Labs CBC & Chem 7: 01/18/21 13:55 01/18/21 14:07 Assessment and Plan Assessment: Recent hospice care and patient discharged himself and now he wants to be back on hospice for end-stage cardiac disease. However he has normal ejection fraction and creatinine. Recent fall about one week ago associated with bilateral lower extremity pain, however today's patient is able to move his lower extremity more freely Peripheral neuropathy, most likely secondary to diabetes Weakness of the right upper extremity, patient is refusing further workup . However patient able to ambulate by himself his walker Acute on chronic systolic CHF with ejection fraction of 20-25 %. Severe global hypokinesia. We'll repeat echocardiogram Moderate tricuspid regurgitation Ischemic cardiomyopathy Hepatitis C with very mild thrombocytopenia History of coronary artery disease status post stent placement Diabetes type 2 insulin-dependent Hypertension Hyperlipidemia History of polysubstance abuse Nicotine dependence Plan: This is a pleasant 61 years old male who wanted to to call for hospice for severe heart disease and kidney disease. However both ejection fraction and creatinine are within normal Discontinue hospice consult Start the patient on insulin sliding scale Repeat labs Stop morphine and start Lyrica for possible neuropathic pain Consults cardiology service tip out worker consult for placement Labs and medication were reviewed.. Continue same treatment. Continue with symptomatic treatment. Resume home medication. Monitor lytes and vitals. DVT and GI prophylaxis. Further recommendationsas per clinical course of the patient DVT prophylaxis: Subcutaneous heparin GI Prophylaxis: Pepcid PT/OT: Pending Prognosis is guarded Patient was updated with the plan
[2021-01-21 13:05] LABS: Glucose,Whole Blood 305 mg/dL (75-99)
[2021-01-21] MEDS: INSULIN ASPART (NovoLOG) 100 UNIT/ML VIAL SQ SCH ×3 (13:13→21:01)
[2021-01-21] MEDS: FAMOTIDINE 20 MG TAB PO SCH ×2 (14:18→21:01)
[2021-01-21] MEDS: PREGABALIN 25 MG CAP PO SCH ×2 (14:18→21:00)
[2021-01-21] MEDS: ASPIRIN 81 MG PO SCH (14:44)
[2021-01-21] MEDS: ATORVASTATIN 40 MG TAB PO SCH (14:44)
--- NOTE | 2021-01-21 17:00 | CONS ---
CONSULTATION Mr. Hall is a 61-year-old male who presented to the emergency room with symptoms of generalized weakness and lack of energy and cardiology consultation was requested. He has a history of coronary artery disease, has prior stenting 19 years ago done in [facility], has underwent cardiac catheterization in [address] Soni, and at that time, had patent stent with ejection fraction in the 50% with basal inferior wall hypokinesis. He had no evidence of significant obstructive disease. Apparently, he was in a correction and signed himself out. He carries diagnosis of severe cardiomyopathy in the past. He has no significant chest discomfort. He has dyspnea. No palpitation. No syncope. He has very weak lower extremities, complaining of significant lower extremity discomfort. He has no PND, orthopnea, or palpitations. He has a prior history of noncompliance. He has a history of diabetes, hypertension and hyperlipidemia, as well history of smoking. He has prior history of drug abuse. According to him, he has not used any in about a year. He has been followed in the past by corrections sergeant in [facility], but saw him last time in April of last year. His medication on presentation is unclear. Patient has no list of the medication. REVIEW OF SYSTEMS: RESPIRATORY SYSTEM: He had dyspnea on exertion. No recent wheezing or cough. GI SYSTEM: No recent GI bleeding. No peptic disease. SYSTEM: No dysuria or hematuria. NERVOUS SYSTEM: Has a history of stroke. No seizure. PHYSICAL EXAMINATION: He is a 61-year-old male, alert, oriented, no apparent distress, complaining of lower extremity discomfort. Blood pressure running in the 170/90 with a heart rate in 70s. HEAD: Normocephalic. EYES: Sclerae anicteric. NECK: Good carotid upstroke, no jugular venous distention. LUNGS: With decreased air exchange, no wheezes. HEART: Regular rate and rhythm. S1, S2. No S3, plus systolic murmur. No diastolic murmur. No rub. ABDOMEN: Soft, nontender, positive bowel sounds. No organomegaly. EXTREMITIES: No edema, intact pulses. LAB DATA: Lab data revealed BUN and creatinine 27 and 0.78, potassium 4.9, hemoglobin of 13.9, platelet count of 148. EKG revealed a sinus mechanism with evidence of lateral wall myocardial infarction. Otherwise, rare PVCs and no acute ST-segment changes. Echocardiogram performed revealed ejection fraction of 40% to 45% with mild mitral and tricuspid regurgitation. IMPRESSION: 1. Lower extremity discomfort, appears to be arthritic in origin. 2. History of coronary artery disease with mildly to moderately impaired systolic function. Patient had a prior history of severe cardiomyopathy. 3. History of chronic tobacco use. 4. Prior history of drug abuse. 5. Noncompliance. 6. Hypertension. 7. Hyperlipidemia. 8. Prior history of diabetes mellitus. RECOMMENDATION: From the cardiac standpoint, I will re-initiate treatment with a beta brett and an CATHIE inhibitor. I will stop his Norvasc. Continue on the aspirin and depending on his progress, further recommendation will be made. Thank you for this consult. We will follow with you. CAHRLINE / ZHOUN: [id number] /
[2021-01-21] MEDS: carvediloL 6.25 MG TAB PO SCH (19:36)
[2021-01-21] MEDS: lisinopriL 5 MG TAB PO SCH (21:01)
[2021-01-21] MEDS: HEPARIN SODIUM,PORCINE/PF 5,000 UNIT/0.5 ML SYRINGE SQ SCH (21:01)
[2021-01-21] MEDS ORDERED: GLIMEPIRIDE 1 MG TAB PO SCH (21:15)
[2021-01-22 05:08] LABS: Glucose,Whole Blood 250 mg/dL (75-99)
[2021-01-22 07:14] LABS: Glucose,Whole Blood 226 mg/dL (75-99)
[2021-01-22] MEDS: PREGABALIN 25 MG CAP PO SCH ×3 (08:48→21:33)
[2021-01-22] MEDS: INSULIN ASPART (NovoLOG) 100 UNIT/ML VIAL SQ SCH ×4 (08:49→21:33)
[2021-01-22] MEDS: amLODIPine 5 MG TAB PO SCH ×2 (08:49→12:36)
[2021-01-22] MEDS: carvediloL 6.25 MG TAB PO SCH ×3 (08:49→17:29)
[2021-01-22] MEDS: GLIMEPIRIDE 2 MG TAB PO SCH ×2 (08:49→12:36)
[2021-01-22] MEDS: HEPARIN SODIUM,PORCINE/PF 5,000 UNIT/0.5 ML SYRINGE SQ SCH ×2 (08:50→21:27)
[2021-01-22] MEDS: lisinopriL 5 MG TAB PO SCH ×3 (08:50→21:33)
[2021-01-22] MEDS: FAMOTIDINE 20 MG TAB PO SCH ×3 (08:50→21:33)
[2021-01-22] MEDS: ATORVASTATIN 40 MG TAB PO SCH ×2 (08:50→12:36)
[2021-01-22] MEDS: ASPIRIN 81 MG PO SCH ×2 (08:50→12:36)
[2021-01-22] MEDS ORDERED: MORPHINE SULFATE IR 15 MG TABLET PO PRN (10:24)
--- NOTE | 2021-01-22 10:54 | P.PN ---
Subjective Progress Note Date: 01/22/21 HISTORY OF PRESENT ILLNESS: Patient examined this morning at the bedside. Patient denies chest pain or pressure. He denies shortness of breath. Patient is upset this morning that h is morphine was discontinued. Patient states he is refusing to take all of his medications. PHYSICAL EXAM: VITAL SIGNS: Reviewed. GENERAL: Well-developed in no acute distress. NECK: Supple. No JVD or thyromegaly LUNGS: Respirations even and unlabored. Lungs essentially clear to auscultation bilaterally. HEART: Regular rate and rhythm. S1 and S2 heard. EXTREMITIES: Normal range of motion. No clubbing or cyanosis. Peripheral pulses intact. No lower extremity edema ASSESSMENT: Generalized weakness with lower extremity discomfort Coronary artery disease History of severe cardiomyopathy Hypertension Hyperlipidemia Diabetes mellitus Medical noncompliance PLAN: Patient currently refusing to take any of his medications No further inpatient recommendations from a cardiac standpoint We will sign off. Please reconsult if needed Nurse practitioner note has been reviewed by physician. Signing provider agrees with the documented findings, assessment, and plan of care. Objective - Vital Signs Vital signs: Vital Signs Temp 97.8 F 01/22/21 05:00 Pulse 83 01/22/21 05:00 Resp 18 01/22/21 05:00 BP 177/88 01/22/21 05:00 Pulse Ox 96 01/22/21 05:00 Intake & Output 01/21/21 01/22/21 01/22/21 18:59 06:59 18:59 Intake Total 540 480 Output Total 200 Balance -200 540 480 Intake: Oral 540 480 Output: Urine 200 Other: Voiding Method Toilet Toilet Urinal # Voids 3 3 - Labs CBC & Chem 7: 01/18/21 13:55 01/18/21 14:07 Labs: Abnormal Lab Results - Last 24 Hours (Table) 01/21/21 01/22/21 01/22/21 Range/Units 13:02 05:05 07:08 POC Glucose (mg/dL) 305 H 250 H 226 H (75-99) mg/dL
[2021-01-22] MEDS: MORPHINE SULFATE 4 MG/ML SYRINGE IVP PRN ×2 (10:58→20:29)
[2021-01-22 11:47] LABS: Glucose,Whole Blood 330 mg/dL (75-99)
--- NOTE | 2021-01-22 13:44 | P.PN ---
Subjective Patient is a 60-year-old male with a known history of coronary artery disease with stent placement, chronic CHF EF 20-25 %, history of CVA/TIA, diabetes type 2 insulin-dependent, hypertension, hyperlipidemia and history of PR and other multiple medical problems . Patient states that he was at [facility] for hospice because of his weak heart patient states that his EF is 7% , 3 weeks ago because of his denial, he thinks that was a mistake he made because he had difficulty at home where he fell about one week ago down 3 stairs are not concr ete and since then he cannot walk and he has pain in his right lower extremity from the toe up to the hip and in the left lower extremity from the toe up to above the knee has difficulty walking since then, he cannot walk. Also he is complaining of from progressive weakness in his right hand, although he states that he has this weakness over a year but now is worse. Is fully awake and oriented, no headache. He is in distress due to pain and asking for pain medication and he agrees with morphine. He has also pain in his back. He feels hungry and he wants to eat No diarrhea or dysuria but he has 7 difficulty urinating Her history patient has been on hospice with low ejection fraction per history ejection fraction is 7% per ED attending. Echocardiogram performed 02/27/2021 ejection fraction of 20-25% with severe global hypokinesia of the left ventricle. He has moderate tricuspid regurgit ation Vitals showing blood pressure of 182/116. Heart rate 101. He is saturating 100% on room air. CBC is unremarkable, BMP showing only mild hyponatremia at 134 and glucose 238 Patient conference to me that he is no code, to me he does not want any aggressive workup, no x-rays even if he has a fracture 01/19/2021 Patient today is awake and alert, no chest pain or dyspnea. He looks listless s leepy but easily arousable and appropriate. Yesterday he was complaining of from severe pain in his lower extremity and refused to move them, however today he was noticed to move his both legs to full extension and briskly with no difficulty Patient does not want any other medications or further testing because he wants to go back to hospice I discussed the case with the pillowcase maker Pravin, patient used to be at [facility] but refused to take him back because of his noncompliance and drug problems. manager merchandise/social sciences chair working on alternatives. We'll change his IV morphine to oral morphine. 01/20/2021 Patient used to be in hospice for advanced cardiac disease as he informed me, discussed the case with pillowcase maker Pravin and she confirmed to me he was on hospice and discharged himself from hospice care. Patient states that this happened about 3 weeks ago Patient is sleepy when I walk into the room over who works up to verbal stimuli and he is appropriate mentally. He denies any shortness of breath or coughing or abdominal pain, nausea vomiting or diarrhea. Her he is asking to be given IV morphine pain medication, he is currently on morphine 15 mg every 6 hours for pain in his both hips, feet and hands. Patient states that his pain in hands and feet is for long time, months and years, most likely diabetic nephropathy Also is complaining of from pain in both hip areas, however he declined to do hip x-rays, he is able to flex his both hips and extending quickly and briskly no difficulty, making the possible of hip fracture is a relatively low Also patient noticed to have high blood pressure was systolic 170 to 180s, which does not go with his history of advanced heart disease, therefore we repeated the echocardiogram, patient informed and he agrees. Echo was done and the result is pending. 01/21/2021 Patient remains clinically the same, fully awake and oriented. No dyspnea. Troponin is able to walk to the restroom using a walker by himself. He complains from pain in his both feet and hands and also an hips and requesting morphine shots, explained for the patient he does not need narcotics most likely this is neuropathic pain Patient declined to x-rays of the hip Echocardiogram done yesterday showed ejection fraction of 50-55% which is low normal per report no significant valvular heart disease Normal creatinine Patient confirmed to me he was in hospice due to severe heart disease and kidney disease, explained to the patient both of these are normal 01/22/2021 Patient is awake and alert, is oriented to time, place and person. He remembers why he is in the hospital for. He says that his peripheral pain in the hands and feet but is complaining of from back pain and asking for narcotics and IV morphine. MAPS was checked and was taking opioids and sometimes benzodiazepine and for about a year. However the need for these opioids and narcotics especially for long-term is questionable, therefore we got to call for a pain service consult patient showed drug-seeking behavior, he made a comment that this is not going to get his pain medication he will, he was treated and over dose himself with heroin, patient was counseled against using heroin or any other substances or appears without prescription for medical supervision, risks including but not limited to cardiopulmonary arrest and/or . Patient is provided short course of IV pain medication and he agrees to stay in the hospital Suicidal precaution is initiated although it felt like his comments is related to his drug-seeking behavior. I explained to the patient he does not need hospice anymore but he might go to subacute rehab and ECF and he agrees with this plan. The patient refusing to take any of his diabetes and cardiac medication because his mind is fixed on getting pain medication. Consult psychiatric service Objective - Vital Signs Vital signs: Vital Signs Temp 98.3 F 01/22/21 11:42 Pulse 80 01/22/21 11:42 Resp 18 01/22/21 11:42 BP 166/92 01/22/21 11:42 Pulse Ox 100 01/22/21 11:42 Intake & Output 01/21/21 01/22/21 01/22/21 18:59 06:59 18:59 Intake Total 540 480 Output Total 200 Balance -200 540 480 Intake: Oral 540 480 Output: Urine 200 Other: Voiding Method Toilet Toilet Urinal # Voids 3 3 - Exam GENERAL: The patient is alert and oriented x3, not in any acute distress. Well developed, well nourished. HEENT: Pupils are round and equally reacting to light. EOMI. No scleral icterus. No conjunctival pallor. Normocephalic, atraumatic. No pharyngeal erythema. No thyromegaly. CARDIOVASCULAR: S1 and S2 present. No murmurs, rubs, or gallops. PULMONARY: Chest is clear to auscultation, no wheezing or crackles. ABDOMEN: Soft, nontender, nondistended, normoactive bowel sounds. No palpable organomegaly. -MUSCULOSKELETAL: No joint swelling or deformity. Flexion and extension of hips is normal and full range EXTREMITIES: No cyanosis, clubbing, or pedal edema. NEUROLOGICAL: Gross neurological examination did not reveal any focal deficits. Weakness of both lower extremities. 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 No petechiae - Labs CBC & Chem 7: 01/18/21 13:55 01/18/21 14:07 Labs: Abnormal Lab Results - Last 24 Hours (Table) 01/22/21 01/22/21 01/22/21 Range/Units 05:05 07:08 11:46 POC Glucose (mg/dL) 250 H 226 H 330 H (75-99) mg/dL Assessment and Plan Assessment: Recent hospice care and patient discharged himself and now he wants to be back on hospice for end-stage cardiac disease. However he has normal ejection fraction and creatinine. Recent fall about one week ago associated with bilateral lower extremity pain, however today's patient is able to move his lower extremity more freely Peripheral neuropathy, most likely secondary to diabetes Noncompliance Weakness of the right upper extremity, improved and patient is able to move his upper extremity normal chronic systolic CHF with ejection fraction of 40-45 %. With no acute exacerbation currently History of Moderate tricuspid regurgitation, on repeat echocardiogram he has only mild tricuspid and mitral regurgitation Hepatitis C with very mild thrombocytopenia History of coronary artery disease status post stent placement Diabetes type 2 insulin-dependent Hypertension Hyperlipidemia History of polysubstance abuse Nicotine dependence Plan: This is a pleasant 61 years old male who was admitted because of multiple go back to hospice for severe cardiac and renal disease. However both ejection fraction and creatinine are within normal Discontinue hospice consult Consult psychiatrist for suicidal comments, with suicidal precautions, also because he refuses medication intake and he refuses further or extensive workup Patient request for pain medication, so consult pain management Start the patient on insulin sliding scaleContinue with Lyrica for possible neuropathic pain Consults cardiology service Signed off groundskeeping maintenance worker consult for placement, Patient agrees to go to [facility] for subacute rehab Labs and medication were reviewed.. Continue same treatment. Continue with symptomatic treatment. Resume home medication. Monitor lytes and vitals. DVT and GI prophylaxis. Further recommendationsas per clinical course of the patient DVT prophylaxis: Subcutaneous heparin GI Prophylaxis: Pepcid PT/OT: Pending Prognosis is guarded Patient was updated with the plan
[2021-01-22] MEDS ORDERED: OLANZapine 2.5 MG TAB PO PRN (15:47)
--- NOTE | 2021-01-22 15:56 | P.CN ---
Psychiatric Consult - . Consult date: 01/22/21 Consult:: 01/22/21 13:20 IDENTIFYING DATA: This patient is a 61-year-old male who came from a retirement has 3 kids and is . REASON FOR REFERRAL: Psychiatry was consulted for "suicidal comments, asking for pain meds". HISTORY OF PRESENT ILLNESS: The patient presented to the hospital on 01/18 as patient had recently signed himself out of hospice 3 weeks ago. Patient was living at his brother's house since then. He apparently was complaining of feeling weaker and having an increase in his brain and not having support at home by his brother to take care of him. According to EMR, patient has been asking for more pain medications including morphine and refusing certain medications. He apparently was not a candidate for hospice any longer according to patient's nurse. She states that she had [facility] who had stated that his ejection fraction was 7% and that he should be in hospice however patient's ejection fraction was much better on this when he was measured here at the hospital. Patient was seen at the bedside today with a sitter. He apparently spoke about the encounter that he had at [facility] and his diagnosis of CHF. He states that he was feeling depressed after he learned that he may be dying and was in hospice. He claims that he does have some anxiety and also spoke about irritability. He claims that the retirement will not take him back. He states that he was making preparations and thought he was dying. He was upset earlier about not getting opiates and made suicidal comments to the physician when he was in the room however now states that "I would never take my own life I have my family and got to live for". He states that his appetite has been mild continues to feel some mild depression. He states that he feels irritable. He claims that his sleep has been poor. At this time patient denies any suicidal or homical ideations, intent or plan. Patient denies any auditory, visual hallucinations and denies any paranoia or delusions. Patients admits to using heroin however claims that he has been clean for 21 months. He states that he smokes cigarettes daily. He states that he smokes marijuana daily. PAST PSYCHIATRIC HISTORY: Patient has a a history of anxiety and depression. He states that he was on psychiatric medication the past for recurrent which ones. He states that he was admitted to [facility] several years ago for overdosing on his medications. Patient denies any psychiatric outpatient follow-up. PAST MEDICAL HISTORY: Coronary Artery Disease (CAD), Heart Failure, COPD, CVA/TIA, Diabetes Mellitus, Hyperlipidemia, Hypertension, Liver Disease, Myocardial Infarction (IA) Additional Past Medical History / Comment(s): Ischemic cardiomyopathy, PVCs, CVA 2019 with L sided weakness, chronic low back pain d/t vertebral fractures years ago as well as cervical pinched nerves, DDD, IDDM type II, neuropathy bilateral hands/legs and feet, hep c ALLERGIES: as per EMR. CHEMICAL DEPENDENCY HISTORY: as per HPI. FAMILY PSYCHIATRIC/SUBSTANCE USE HISTORY: He states that his grandmother suffered from mental illness. SOCIAL HISTORY: Patient was born and raised in [place] and states that he then moved to [place] afterwards and is now a [place] citizen. He states that he completed high school and did not do any college. 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 He claims that he has 3 kids is and was living in a retirement. He states that he does not have any legal. MENTAL STATUS EXAM: General Appearance: Patient appears to be a tall, thin, stated age is alert, attempts to be cooperative. Patient appears to have fair hygiene and grooming wearing hospital gown with fair eye contact. Behavior: Patient is calmly lying in bed without any agitated behavior. Irritable and impulsive at times. Speech: Patient's speech is fluent and nonpressured. Mood/Affect: Patient reports their mood is "depressed", affect is congruent Suicidality/Homicidality: Patient denies having any suicidal or homicidal ideation intent or plan. Perceptions: Patient denies any visual hallucinations and denies any auditory hallucinations Though content/process: There is no evidence of any delusional thought content and thought process is linear and goal-directed. Focused on his medications. Memory and concentration: AOX3, grossly intact for the purposes of this session. Can spell "WORLD" backwards Judgment and insight: poor IMPRESSIONS: Major depressive disorder, mild Opiate use disorder Anxiety disorder unspecified Cannabis use disorder Nicotine dependence PLAN: -At this time patient DOES NOT meet criteria for inpatient psychiatric admission. -Delirium precautions recommended with patient including - avoiding use of narcotics and BUSINESS MGR sedatives, limit anticholinergic medications when possible, frequent re-orientation, minimize use of restraints, open window shades during the day and close them at night -Would recommend the following medication changes/additions: Patient is agreeable to start Cymbalta 30 mg daily for mood/pain/anxiety. Added Zyprexa 2.5 mg daily at bedtime for mood stabilization/insomnia +2.5 mg daily when necessary for acute anxiety/agitation. -Will defer pain management and opiate/narcotics to primary team and opinion of pain management. -Continue 1:1 sitter for safety -fruit farmworker to provide patient with outpatient mental health/psychiatry resources for appropriate follow up upon discharge -Supervisor Pipe Finishing spoke with patient about substance abuse and the harmful effects on medical and mental health, patient verbally understood and agreed. -fruit farmworker to provide patient substance use treatment resources including AA/NA meetings in the community. -Communicated plan to patient's nurse -Will continue to follow along -Please contact with any questions. 01/22/21 15:49
[2021-01-22 17:05] LABS: Glucose,Whole Blood 192 mg/dL (75-99)
[2021-01-22] MEDS: DULoxetine HCL 30 MG CAPSULE.DR PO SCH (17:25)
[2021-01-22 20:56] LABS: Glucose,Whole Blood 211 mg/dL (75-99)
[2021-01-22] MEDS: OLANZapine 2.5 MG TAB PO SCH (21:33)
[2021-01-23] MEDS: MORPHINE SULFATE 4 MG/ML SYRINGE IVP PRN (05:59)
[2021-01-23 07:03] LABS: Glucose,Whole Blood 116 mg/dL (75-99)
[2021-01-23] MEDS: INSULIN ASPART (NovoLOG) 100 UNIT/ML VIAL SQ SCH ×4 (07:55→20:34)
[2021-01-23] MEDS: PREGABALIN 25 MG CAP PO SCH ×3 (07:58→20:34)
[2021-01-23] MEDS: ASPIRIN 81 MG PO SCH (07:58)
[2021-01-23] MEDS: DULoxetine HCL 30 MG CAPSULE.DR PO SCH (07:59)
[2021-01-23] MEDS: carvediloL 6.25 MG TAB PO SCH ×2 (07:59→17:01)
[2021-01-23] MEDS: ATORVASTATIN 40 MG TAB PO SCH (07:59)
[2021-01-23] MEDS: amLODIPine 5 MG TAB PO SCH (07:59)
[2021-01-23] MEDS: lisinopriL 5 MG TAB PO SCH ×2 (07:59→20:33)
[2021-01-23] MEDS: FAMOTIDINE 20 MG TAB PO SCH ×2 (07:59→20:34)
[2021-01-23] MEDS: HEPARIN SODIUM,PORCINE/PF 5,000 UNIT/0.5 ML SYRINGE SQ SCH ×2 (07:59→20:34)
[2021-01-23] MEDS: GLIMEPIRIDE 2 MG TAB PO SCH (07:59)
--- NOTE | 2021-01-23 10:34 | P.CONS ---
History of Present Illness - Reason for Consult Consult date: 01/23/21 - History of Present Illness This is a 61-year-old gentleman with history of chronic lower back pain with radiation to the lower extremities more to the left side with numbness and tingling in the left leg. He also complains of weakness in the lower extremities more on the left side than the right side. He had an exacerbation of his pain after he fell down. Patient has significant history for coronary artery disease, diabetes, noncompliant with treatment, and substance abuse. Past Medical History Past Medical History: Coronary Artery Disease (CAD), Heart Failure, COPD, CVA/ TIA, Diabetes Mellitus, Hyperlipidemia, Hypertension, Liver Disease, Myocardial Infarction (VT) Additional Past Medical History / Comment(s): Ischemic cardiomyopathy with EF of 7% per patient, PVCs, CVA 2019 with L sided weakness, chronic low back pain d/t vertebral fractures years ago as well as cervical pinched nerves, DDD, IDDM type II, neuropathy bilateral hands/legs and feet, hepatitis C Last Myocardial Infarction Date:: October 2018 History of Any Multi-Drug Resistant Organisms: MRSA Year Discovered:: 11/23/20 MDRO Source:: FOOT MRSA Past Surgical History: Cholecystectomy, Heart Catheterization, Heart Catheterization With Stent, Tonsillectomy Additional Past Surgical History / Comment(s): R heel I&D, colonoscopy. Past Anesthesia/Blood Transfusion Reactions: No Reported Reaction Date of Last Stent Placement:: 2011 Past Psychological History: Anxiety, Bipolar, Depression Additional Psychological History / Comment(s): Pt resides with brother in a house. Patient is having trouble caring for himself since he is so weak and his brother is unable to care for him, so he is hoping to get admitted to [facility] with hospice on his case. He has a walker and a cane. He does not drive Smoking Status: Current some day smoker Past Alcohol Use History: None Reported Additional Past Alcohol Use History / Comment(s): Pt started smoking in 1976 and states he is down to 2 cigarettes a day. Past Drug Use History: Heroin, Marijuana Additional Drug Use History / Comment(s): Marijuana occasionally. pt stated he had ICE on 02/24/2020 - Past Family History Mother Family Medical History: Cancer Father Family Medical History: Coronary Artery Disease (CAD), Diabetes Mellitus, Hypertension Medications and Allergies Home Medications Medication Instructions Recorded Confirmed Type No Known Home Medications 01/18/21 01/18/21 History Allergies Allergy/AdvReac Type Severity Reaction Status Date / Time Penicillins Allergy Unknown Verified 01/18/21 15:52 Childhood metformin AdvReac Mild Nausea Verified 01/18/21 15:52 Physical Exam Vitals: Vital Signs Temp Pulse Resp BP Pulse Ox 01/23/21 05:53 97.5 F L 77 20 181/93 99 01/22/21 20:23 98.6 F 78 16 155/81 98 01/22/21 11:42 98.3 F 80 18 166/92 100 Intake and Output 01/22/21 01/23/21 01/23/21 22:59 06:59 14:59 Intake Total 480 Balance 480 Intake: Oral 480 Other: Voiding Method Toilet Urinal # Voids 3 - EENT Eyes: PERRLA - Neurologic Straight leg raising test positive on the left side, decreased left knee flexion to3/5. Griffin's test negative bilaterally. Positive tenderness in the lumbar paravertebral musculature bilaterally - Psychiatric Psychiatric: A&O x's 3 Results CBC & Chem 7: 01/18/21 13:55 01/18/21 14:07 Labs: Abnormal Lab Results - Last 24 Hours (Table) 01/22/21 01/22/21 01/22/21 Range/Units 11:46 17:04 20:54 POC Glucose (mg/dL) 330 H 192 H 211 H (75-99) mg/dL 01/23/21 Range/Units 07:00 POC Glucose (mg/dL) 116 H (75-99) mg/dL Assessment and Plan Plan: The patient may benefit from a lumbar epidural steroid injection under fluoroscopic guidance. He does not take any anticoagulants at this point. Diagnosis: Lumbar radiculopathy Lumbar DDD History of substance abuse The patient is high risk for opioid abuse. I recommend using [id number] medication for his pain. I thank you for the consultation
[2021-01-23] MEDS ORDERED: ROPIVACAINE 5MG/ML 20ML VIAL ONE (11:05)
[2021-01-23] MEDS ORDERED: IOPAMIDOL M200 10 ML VIAL ONE (11:05)
[2021-01-23] MEDS ORDERED: TRIAMCINOLONE ACETONIDE 40 MG/ML 1 ML VIAL ONE (11:05)
[2021-01-23 11:13] LABS: Glucose,Whole Blood 255 mg/dL (75-99)
--- NOTE | 2021-01-23 11:19 | P.PCN ---
Date of Procedure: 01/23/21 Surgeon: Pari Collado Pathology: none sent Condition: stable Disposition: PACU Description of Procedure: PREOPERATIVE DIAGNOSIS: 1-Lumbar radiculopathy 2- Lumber Degenerative Disc Diseases. POSTOPERATIVE DIAGNOSIS: 1-Lumbar radiculopathy. 2-Lumbar Degenerative Disc Diseases PROCEDURE 1. Lumbar epidural steroid injection under fluoroscopic guidance at the L4-5 level in the left paramedian approach. 2. Lumbar epidurogram. ANESTHESIA: Local with 1% lidocaine; and IV moderate conscious sedation with Versed and fentanyl EBL: Minimal PROCEDURE INDICATION: The patient with low back pain and radiculitis symptoms unresponsive to conservative treatment. Fluoroscopy was used to optimize visualization of the needle placement and to maximize safety. PROCEDURE DESCRIPTION / TECHNIQUE: The patient was seen and identified in the preoperative area. Risks, benefits, complications including but not limited to infections ,bleeding ,allergic reaction to the medications ,nerve damage and not complete pain relief , and alternatives were discussed with the patient. The patient agreed to proceed with the procedure and signed the consent. IV was started, and vital signs were stable. Patient was taken to the OR and time out was completed. The patient was placed in the prone position on procedure table and a pillow was placed under the abdomen to reduce lumbar lordosis. The lumbosacral area was prepped and draped in the usual sterile fashion with ChloraPrep.Patient was closely monitored during the procedure. Conscious sedation was used during the procedure to decrease patients anxiety. Vital signs were monitered during the entire procedure. Using anterior-posterior fluoroscopy, the L4-5 interlaminar space was identified and the skin over this site was marked and then infiltrated with 1% lidocaine subcutaneously. Subsequently, a 20-gauge Tuohy epidural needle was inserted and advanced toward the epidural space using the Loss of resistance to air technique and guided by AP and lateral fluoroscopy. The correct needle position in the epidural space was verified with the injection of 1 mL of the water soluble contrast dye Omnipaque 180 contrast and observing an excellent epidurogram with the epidural spread of the dye, after negative aspiration for blood and CSF and in the absence of paresthesias. Again after negative aspiration, a 8 ml mixture containing 40 mg of Kenalog and 5 ml of preservative free Normal Saline, and 2 ml of preservative free ropivacaine 0.5% solution was injected and a washout of epidurogram was seen. Needle was withdrawn intact, skin was cleansed, and bandages were applied. patient tolerated procedure well and was transferred to PACU in stable condition.A copy of the needle placement picture was saved to the fluoroscopy machine. COMPLICATIONS: None DISPOSITION / PLANS: The patient was placed in a supine position and transferred to the recovery area in a stable condition for observation. There was no evidence of lower extremity motor or sensory deficit after the procedure. Patient was discharged from the recovery room after meeting discharge criteria. Home discharge instructions were given to the patient by the staff. The patient was reexamined prior to discharge. The patient will schedule a follow up in the clinic in 2-4 weeks.
[2021-01-23] MEDS: MORPHINE SULFATE 2 MG/ML SYRINGE IVP PRN ×2 (11:34→20:06)
--- NOTE | 2021-01-23 11:46 | FL ---
EXAMINATION TYPE: FL guided pain mgmt statistic DATE OF EXAM: 01/23/2021 HISTORY: Pain 4 SECONDS FLUORO TIME. [address] TUCKER[address] LUMBAR SPIDURAL STERIOD INJECTION.
[2021-01-23 12:05] LABS: HCT 36.9 % (39.0-53.0); HGB 12.2 gm/dL (13.0-17.5); Mean Platelet Volume 8.8; Platelet Count 140 k/uL (150-450); RDW 13.6 % (11.5-15.5)
[2021-01-23 12:06] LABS: Glucose,Whole Blood 251 mg/dL (75-99)
--- NOTE | 2021-01-23 13:17 | P.PN ---
Progress Note - Text Progress Note Date: 01/23/21 Interval History: Patient was seen today for psychiatric follow-up regarding patient's depression and anxiety. Patient's mother states that patient has been doing better however was more irritable this morning due to people coming in and out of his room and coming back from a procedure and required Zyprexa po prn. Patient was seen today with a sitter by his side. He appears to be less irritable today and more cooperative during interview. He claims that he is doing better overall however he is worried about where she will be going upon discharge. He states that there is "a lot of unknowns". He does state that his mood and anxiety have been improving. He claims that he was able to sleep fairly throughout the night. States that he tolerated the procedure downstairs fairly well today. Claims to have a improving appetite. At this time patient denies any suicidal or homical ideations, intent or plan. Patient denies any auditory, visual hallucinations and denies any paranoia or delusions. Patient denies any side effects from the medications and has been compliant with meds. Mental Status Exam: General Appearance: Patient appears to be a tall, thin, stated age is alert, attempts to be cooperative. Patient appears to have fair hygiene and grooming wearing hospital gown with fair eye contact. Behavior: Patient is calmly lying in bed without any agitated behavior. Speech: Patient's speech is fluent and nonpressured. Mood/Affect: Patient reports their mood is "better", affect is congruent Suicidality/Homicidality: Patient denies having any suicidal or homicidal ideation intent or plan. Perceptions: Patient denies any visual hallucinations and denies any auditory hallucinations Though content/process: There is no evidence of any delusional thought content and thought process is linear and goal-directed. Memory and concentration: AOX3, grossly intact for the purposes of this session Judgment and insight: Improving mildly Assessment Major depressive disorder, mild Opiate use disorder Anxiety disorder unspecified Cannabis use disorder Nicotine dependence Plan: -At this time patient DOES NOT meet criteria for inpatient psychiatric admission. -Delirium precautions recommended with patient including - avoiding use of narcotics and MICROSTRATEGY DEVELOPER sedatives, limit anticholinergic medications when possible, frequent re-orientation, minimize use of restraints, open window shades during the day and close them at night -Would recommend the following medication changes/additions: Cymbalta 30 mg daily for mood/pain/anxiety. Zyprexa 2.5 mg daily at bedtime for mood stabilization/insomnia +2.5 mg daily when necessary for acute anxiety/agitation. -Will defer pain management and opiate/narcotics to primary team and opinion of pain management. -Okay to discontinue sitter today as patient is not endorsing any suicidal thoughts and has been taking his medications and improving. -vault worker to provide patient with outpatient mental health/psychiatry resources for appropriate follow up upon discharge -Director Business spoke with patient about substance abuse and the harmful effects on medical and mental health, patient verbally understood and agreed. -vault worker to provide patient substance use treatment resources including AA/NA meetings in the community. -Communicated plan to patient's nurse -At this time psychiatrist sign off. -Please contact with any questions.
[2021-01-23 17:23] LABS: Glucose,Whole Blood 192 mg/dL (75-99)
[2021-01-23 20:10] LABS: Glucose,Whole Blood 279 mg/dL (75-99)
[2021-01-23] MEDS: OLANZapine 2.5 MG TAB PO SCH (20:36)
--- NOTE | 2021-01-23 22:06 | P.PN ---
Subjective Patient is a 60-year-old male with a known history of coronary artery disease with stent placement, chronic CHF EF 20-25 %, history of CVA/TIA, diabetes type 2 insulin-dependent, hypertension, hyperlipidemia and history of [place] and other multiple medical problems . Patient states that he was at [facility] for hospice because of his weak heart patient states that his EF is 7% , 3 weeks ago because of his denial, he thinks that was a mistake he made because he had difficulty at home where he fell about one week ago down 3 stairs are not concr ete and since then he cannot walk and he has pain in his right lower extremity from the toe up to the hip and in the left lower extremity from the toe up to above the knee has difficulty walking since then, he cannot walk. Also he is complaining of from progressive weakness in his right hand, although he states that he has this weakness over a year but now is worse. Is fully awake and oriented, no headache. He is in distress due to pain and asking for pain medication and he agrees with morphine. He has also pain in his back. He feels hungry and he wants to eat No diarrhea or dysuria but he has 7 difficulty urinating Her history patient has been on hospice with low ejection fraction per history ejection fraction is 7% per ED attending. Echocardiogram performed 02/27/2021 ejection fraction of 20-25% with severe global hypokinesia of the left ventricle. He has moderate tricuspid regurgit ation Vitals showing blood pressure of 182/116. Heart rate 101. He is saturating 100% on room air. CBC is unremarkable, BMP showing only mild hyponatremia at 134 and glucose 238 Patient conference to me that he is no code, to me he does not want any aggressive workup, no x-rays even if he has a fracture 01/19/2021 Patient today is awake and alert, no chest pain or dyspnea. He looks listless s leepy but easily arousable and appropriate. Yesterday he was complaining of from severe pain in his lower extremity and refused to move them, however today he was noticed to move his both legs to full extension and briskly with no difficulty Patient does not want any other medications or further testing because he wants to go back to hospice I discussed the case with the case management social worker Pravin, patient used to be at [facility] but refused to take him back because of his noncompliance and drug problems. front desk manager/social human services assistants working on alternatives. We'll change his IV morphine to oral morphine. 01/20/2021 Patient used to be in hospice for advanced cardiac disease as he informed me, discussed the case with case management social worker Pravin and she confirmed to me he was on hospice and discharged himself from hospice care. Patient states that this happened about 3 weeks ago Patient is sleepy when I walk into the room over who works up to verbal stimuli and he is appropriate mentally. He denies any shortness of breath or coughing or abdominal pain, nausea vomiting or diarrhea. Her he is asking to be given IV morphine pain medication, he is currently on morphine 15 mg every 6 hours for pain in his both hips, feet and hands. Patient states that his pain in hands and feet is for long time, months and years, most likely diabetic nephropathy Also is complaining of from pain in both hip areas, however he declined to do hip x-rays, he is able to flex his both hips and extending quickly and briskly no difficulty, making the possible of hip fracture is a relatively low Also patient noticed to have high blood pressure was systolic 170 to 180s, which does not go with his history of advanced heart disease, therefore we repeated the echocardiogram, patient informed and he agrees. Echo was done and the result is pending. 01/21/2021 Patient remains clinically the same, fully awake and oriented. No dyspnea. Troponin is able to walk to the restroom using a walker by himself. He complains from pain in his both feet and hands and also an hips and requesting morphine shots, explained for the patient he does not need narcotics most likely this is neuropathic pain Patient declined to x-rays of the hip Echocardiogram done yesterday showed ejection fraction of 50-55% which is low normal per report no significant valvular heart disease Normal creatinine Patient confirmed to me he was in hospice due to severe heart disease and kidney disease, explained to the patient both of these are normal 01/22/2021 Patient is awake and alert, is oriented to time, place and person. He remembers why he is in the hospital for. He says that his peripheral pain in the hands and feet but is complaining of from back pain and asking for narcotics and IV morphine. MAPS was checked and was taking opioids and sometimes benzodiazepine and for about a year. However the need for these opioids and narcotics especially for long-term is questionable, therefore we got to call for a pain service consult patient showed drug-seeking behavior, he made a comment that this is not going to get his pain medication he will, he was treated and over dose himself with heroin, patient was counseled against using heroin or any other substances or appears without prescription for medical supervision, risks including but not limited to cardiopulmonary arrest and/or . Patient is provided short course of IV pain medication and he agrees to stay in the hospital Suicidal precaution is initiated although it felt like his comments is related to his drug-seeking behavior. I explained to the patient he does not need hospice anymore but he might go to subacute rehab and ECF and he agrees with this plan. The patient refusing to take any of his diabetes and cardiac medication because his mind is fixed on getting pain medication. Consult psychiatric service 01/23/2021 Patient sleepy from morphine but is easily arousable and appropriate. Still complaining from low back pain, discussed the case and plan with the pain management team, he underwent epidural steroid injection today Also discussed the case with psychiatry service who prescribed Cymbalta, was on Zyprexa for him, no more so sagittal dose or comments. Discontinue sitter, psychiatry sign off with recommendation for follow-up as an outpatient Increase edema bright to up to 3 mg per better control of diabetes. Patient refuses metformin due to intolerance due to GI symptoms before Continue with Lyrica for diabetic neuropathy continue with cardiac medications Lipitor, lisinopril, Norvasc and baby aspirin The Epidural steroid injection today, with marked his morphine to 2 mg today. We expect him to discontinue morphine tomorrow Workup on the case for possible ECF for rehab if Patient agrees This was discussed with psychiatry, pain management, bedside nurse and case management social worker/social human services assistants today Review of systems CONSTITUTIONAL: No fever, no malaise, no fatigue. HEENT: No recent visual problems or hearing problems. Denied any sore throat. CARDIOVASCULAR: No orthopnea, PND, no palpitations, no syncope. PULMONARY: No shortness of breath, no cough, no hemoptysis. GASTROINTESTINAL: No diarrhea, no nausea, no vomiting, no abdominal pain. Normoactive bowel sounds. NEUROLOGICAL: No headaches, no weakness, no numbness. Active Medications Generic Name Dose Route Start Last Admin Trade Name Freq PRN Reason Stop Dose Admin Amlodipine Besylate 5 mg 01/19/21 15:15 01/23/21 07:59 Amlodipine 5 Mg Tab PO 5 mg DAILY MIRLANDE Administration Aspirin 81 mg 01/21/21 14:30 01/23/21 07:58 Aspirin 81 Mg PO 81 mg DAILY MIRLANDE Administration Atorvastatin Calcium 40 mg 01/21/21 14:30 01/23/21 07:59 Atorvastatin 40 Mg Tab PO 40 mg DAILY MIRLANDE Administration Carvedilol 6.25 mg 01/21/21 17:30 01/23/21 17:01 Carvedilol 6.25 Mg Tab PO 6.25 mg BID-W/MEALS MIRLANDE Administration Duloxetine HCl 30 mg 01/22/21 16:00 01/23/21 07:59 Duloxetine Hcl 30 Mg Capsule.Dr PO 30 mg DAILY MIRLANDE Administration Famotidine 20 mg 01/21/21 13:30 01/23/21 20:34 Famotidine 20 Mg Tab PO 20 mg BID MIRLANDE Administration Glimepiride 3 mg 01/24/21 07:30 Glimepiride 1 Mg Tab PO AC-BRKFST [facility] Heparin Sodium (Porcine) 5,000 unit 01/21/21 21:00 01/23/21 20:34 Heparin Sodium,Porcine/Pf 5,000 Unit/0.5 Ml Syringe SQ Not Given Q12HR [facility] Insulin Aspart 0 unit 01/21/21 12:30 01/23/21 20:34 Insulin Aspart (Novolog) 100 Unit/Ml Vial SQ 4 unit ACHS MIRLANDE Administration Protocol Lisinopril 5 mg 01/21/21 21:00 01/23/21 20:33 Lisinopril 5 Mg Tab PO 5 mg BID MIRLANDE Administration Morphine Sulfate 2 mg 01/23/21 10:21 01/23/21 20:06 Morphine Sulfate 2 Mg/Ml Syringe IVP 02/01/21 23:00 2 mg Q4HR PRN Administration Pain Naloxone HCl 0.2 mg 01/18/21 14:50 Naloxone 0.4 Mg/Ml 1 Ml Vial IV Q2M PRN Opioid Reversal Olanzapine 2.5 mg 01/22/21 21:00 01/23/21 20:36 Olanzapine 2.5 Mg Tab PO Not Given HS MIRLANDE Olanzapine 2.5 mg 01/22/21 15:47 01/23/21 11:39 Olanzapine 2.5 Mg Tab PO 2.5 mg DAILY PRN Administration Agitation or Acute Anxiety Pregabalin 25 mg 01/21/21 16:00 01/23/21 20:34 Pregabalin 25 Mg Cap PO 25 mg TID MIRLANDE Administration Objective - Vital Signs Vital signs: Vital Signs Temp 98.2 F 01/23/21 11:34 Pulse 72 01/23/21 11:34 Resp 16 01/23/21 11:34 BP 144/89 01/23/21 11:34 Pulse Ox 98 01/23/21 11:34 Intake & Output 01/22/21 01/23/21 01/23/21 18:59 06:59 18:59 Intake Total 480 480 Balance 480 480 Intake: Oral 480 480 Other: Voiding Method Toilet Urinal # Voids 3 - Labs CBC & Chem 7: 01/23/21 11:37 01/18/21 14:07 Labs: Abnormal Lab Results - Last 24 Hours (Table) 01/22/21 01/22/21 01/23/21 Range/Units 17:04 20:54 07:00 RBC (4.30-5.90) m/uL Hgb (13.0-17.5) gm/dL Hct (39.0-53.0) % Plt Count (150-450) k/uL POC Glucose (mg/dL) 192 H 211 H 116 H (75-99) mg/dL 01/23/21 01/23/21 01/23/21 Range/Units 11:01 11:37 12:05 RBC 3.80 L (4.30-5.90) m/uL Hgb 12.2 L (13.0-17.5) gm/dL Hct 36.9 L (39.0-53.0) % Plt Count 140 L (150-450) k/uL POC Glucose (mg/dL) 255 H 251 H (75-99) mg/dL Assessment and Plan Assessment: Recent hospice care and patient discharged himself and now he wants to be back on hospice for end-stage cardiac disease. However he has normal ejection fraction and creatinine. Recent fall about one week ago associated with bilateral lower extremity pain, however today's patient is able to move his lower extremity more freely Peripheral neuropathy, most likely secondary to diabetes Noncompliance Major depression and anxiety Opioid use disorder Substance abuse with marijuana Weakness of the right upper extremity, improved and patient is able to move his upper extremity normal chronic systolic CHF with ejection fraction of 40-45 %. With no acute exacerbation currently History of Moderate tricuspid regurgitation, on repeat echocardiogram he has only mild tricuspid and mitral regurgitation Hepatitis C with very mild thrombocytopenia History of coronary artery disease status post stent placement Diabetes type 2 insulin-dependent Hypertension Hyperlipidemia History of polysubstance abuse Nicotine dependence Plan: This is a pleasant 61 years old male who was admitted because of multiple go back to hospice for severe cardiac and renal disease. However both ejection fraction and creatinine are within normal Discontinue hospice consult Consult psychiatrist for suicidal comments, no more suicidal thoughts or comments. Patient has been evaluated by psychiatrist and start him on Patient request for pain medication, so consult pain management Start the patient on insulin sliding scaleContinue with Lyrica for possible neuropathic pain Consults cardiology service Signed off barnworker groom consult for placement, Patient agrees to go to [facility] for subacute rehab Labs and medication were reviewed.. Continue same treatment. Continue with symptomatic treatment. Resume home medication. Monitor lytes and vitals. DVT and GI prophylaxis. Further recommendationsas per clinical course of the patient DVT prophylaxis: Subcutaneous heparin GI Prophylaxis: Pepcid PT/OT: Pending Prognosis is guarded
[2021-01-24 07:05] LABS: Glucose,Whole Blood 248 mg/dL (75-99)
[2021-01-24] MEDS ORDERED: ACETAMINOPHEN TAB 325 MG TAB PO PRN (07:26)
[2021-01-24] MEDS ORDERED: GLIMEPIRIDE 1 MG TAB PO SCH (07:30)
[2021-01-24] MEDS: carvediloL 6.25 MG TAB PO SCH (07:57)
[2021-01-24] MEDS: INSULIN ASPART (NovoLOG) 100 UNIT/ML VIAL SQ SCH ×2 (07:57→13:02)
[2021-01-24] MEDS: HEPARIN SODIUM,PORCINE/PF 5,000 UNIT/0.5 ML SYRINGE SQ SCH (07:57)
[2021-01-24] MEDS: ASPIRIN 81 MG PO SCH (07:59)
[2021-01-24] MEDS: lisinopriL 5 MG TAB PO SCH (07:59)
[2021-01-24] MEDS: DULoxetine HCL 30 MG CAPSULE.DR PO SCH (08:00)
[2021-01-24] MEDS: ATORVASTATIN 40 MG TAB PO SCH (08:00)
[2021-01-24] MEDS: PREGABALIN 25 MG CAP PO SCH (08:00)
[2021-01-24] MEDS: amLODIPine 5 MG TAB PO SCH (08:01)
[2021-01-24] MEDS: FAMOTIDINE 20 MG TAB PO SCH (08:01)
[2021-01-24] MEDS ORDERED: IBUPROFEN 400 MG TAB PO PRN (10:13)
[2021-01-24] MEDS ORDERED: LIDOCAINE 5% PATCH TOPICAL SCH (10:15)
--- NOTE | 2021-01-24 11:34 | CDI ---
Documentation Clarification Form Date: 01/24/2021 11:31:40 AM From: Linsey Sanchez RN, CCDS Admit Date: 01/24/2021 07:29:00 AM Patient Name: Jacobo Hall Visit Number: [id number] ATTENTION: The Clinical Documentation Specialists (CDI) and [facility] Coding Staff appreciate your assistance in clarifying documentation. Please respond to the clarification below the line at the bottom and electronically sign. The CDI & [facility] Coding staff will review the response and follow-up if needed. Please note: Queries are made part of the Legal Health Record. If you have any questions, please contact the author of this message via ITS. Dr. Rodriguez E Sheet Unspecified CKD is documented in the 01/22 & 01/23 Attending Progress notes, along with documentation of Cardiorenal syndrome, which assumes a diagnosis of CKD. Additional clarification regarding the stage of CKD is requested. History/Risk Factors: 02/28/2020 Patients Historical BUN/CR/GFR: 35/1.34/57 Recently d/c self from hospice for end stage cardiac disease, Acute on chronic systolic CHF, ischemic cardiomyopathy, Hepatitis C, CAD w PCI, DM2, HTN, HLD, Poly Substance Abuse, Nicotine Dep Clinical Indicators: 01/18 Current BUN/CR/GFR: 27.78/.>90 01/22 & 01/23 Attending progress Notes: "This is a pleasant 61 years old male who was admitted because of multiple go back to hospice for severe cardiac and renal disease. Patient confirmed to me he was in hospice due to severe heart disease and kidney disease, explained to the patient both of these are normal." 01/18 H&P: "Acute kidney injury, secondary to cardiorenal syndrome. Improving History of coronary artery disease status post stent placement Diabetes type 2 insulin-dependent." Treatment: Lab Monitoring No IVF Ordered Please clarify the stage of the CKD, if known: [ ] CKD is ruled out [ ] CKD Stage 1 (GFR > 90) [ ] CKD Stage 2 (GFR 60-89) [ ] CKD Stage 3 (GFR 30-59) [ ] CKD Stage 3a (GFR 45-59) [ ] CKD Stage 3b (GFR 30-44) [ ] CKD Stage 4 (GFR 15-29) [ ] CKD Stage 5 (GFR <15) [ ] ESRD [ ] Other, please specify [ ] Unable to determine (Template last revised: July 2020) no ckd MTDD
[2021-01-24 11:51] LABS: Glucose,Whole Blood 360 mg/dL (75-99)
[2021-01-24 12:22] VITALS: BP 165/91; PULSE 82; RESP 16; TEMP 98.3
[2021-01-24 13:01] VITALS: BMI 19.3
--- NOTE | 2021-01-24 14:20 | P.DS ---
Providers Date of admission: 01/24/21 07:29 Attending physician: Michael Ramirez MD Consults: 01/22/21 10:24 Consult Physician Urgent Consulting Provider: Psychiatry - [facility] Psychiatry Consult Reason/Comments: made suicidal comments , also asking for pain medication Do you want consulting provider notified?: Yes Primary care physician: Stated None Hospital Course: Diagnoses: Recent hospice care and patient discharged himself and now he came to ED and wants to be back on hospice for end-stage cardiac disease. However he has normal ejection fraction and creatinine on repeat an echocardiogram. No need for hospice Recent fall about one week prior to admission associated with bilateral lower extremity pain, however today's patient is able to move his lower extremity more freely. Lumbar degenerative disc disease with radiculopathy, status post lumbar epidural steroid injection on 01/23 Peripheral neuropathy, most likely secondary to diabetes Noncompliance Major depression and anxiety. Evaluated and cleared by psychiatrist Opioid use disorder Substance abuse disorder. Including marijuana Weakness of the right upper extremity, improved and patient is able to move his upper extremity normal chronic systolic CHF with ejection fraction of 40-45 %. With no acute exacerbation currently. Evaluated by shearing machine tender History of Moderate tricuspid regurgitation, on repeat echocardiogram he has on ly mild tricuspid and mitral regurgitation Hepatitis C with very mild thrombocytopenia History of coronary artery disease status post stent placement Diabetes type 2 insulin-dependent, with hyperglycemia. Patient ALLERGIC to metformin. Started on Amaryl 4 mg daily. Continue with insulin sliding scale Hypertension Hyperlipidemia History of polysubstance abuse Nicotine dependence Hospital course: Patient is a pleasant 60-year-old male with a known history of coronary artery disease with stent placement, chronic CHF EF 20-25 % . Echocardiogram done last year, history of CVA/TIA, diabetes type 2 insulin-dependent, hypertension, hyperlipidemia and history of [place] and other multiple medical problems . Patient states that he was at [facility] for hospice because of his weak heart patient states that his EF was 7% and also because of kidney failure as per patient , 3 weeks prior to admission he signed himself out of hospice and he states it is because of his denial, he thinks that was a mistake he made so he came to emergency room wanted to be back on hospice. However on admission patient was noticed his blood pressure is elevated with SBP 07/16/2079. 170-180 Repeat echocardiogram, ejection fraction 40-45% with LV function is only mildly to moderately impaired. His creatinine was checked and it was normal at 0.78. Because of this he was taken off hospice care. Per patient he doesn't have other end stage or terminal illnesses for example he denies history of cancer. Patient has been evaluated by shearing machine tender and currently he was placed on aspirin, Coreg, lisinopril and statin His sugar was uncontrolled and he was started on Amaryl 4 mg daily. His sugar needs to be monitored and medications adjusted as needed. Patient was asking for IV morphine and opioid medication and he made the comment if he is not going to be provided with morphine and then probably he will go out and overdose himself with heroin. Because of suicidal comments psychiatric consult was obtained, he was found to have ( Major depressive disorder, mild. Opiate use disorder. Anxiety disorder unspecified. Cannabis use disorder. Nicotine dependence) per psychiatric and he was started on Zyprexa 2.5 mg daily and Cymbalta 30 mg daily with recommendation for outpatient follow-up with psychiatry services. Sitter monitor the patient for 2 days and eventually it was discontinued by psychiatrist who cleared him for discharge Patient service team evaluated the patient and he underwent epidural steroid injection for his lumbar spine on 01/23. After that his morphine was stopped and he was switched to [id number] medication, Tylenol, short course of NSAIDs, lidocaine patch as well as Cymbalta. Patient was instructed to undergo physical therapy which was recommendation of the PT/OT service Risks of narcotics are explained for the patient extensively, including but not limited to the risk of respiratory depression and/or . Patient is high- risk for opioid abuse Eventually patient stabilizes medically. He denies chest pain or dyspnea or headache or weakness or numbness. No diarrhea. No dysuria. No fever. He tolerates diet Patient was cleared for discharge by all consultants including shearing machine tender, psychiatrist and pain medicine service Problems and management plan were discussed with the patient and he verbalized understanding and acceptance Patient was found stable and can be discharged to [facility] in guarded prognosis however he needs follow-up as an outpatient. Patient was instructed to follow up with PCP within one week and patient agrees Patient was instructed to follow up with pain medicine service Dr. alfredo in 2 weeks, with shearing machine tender Dr. Maldonado in 2 weeks. Patient also was instructed to follow up with psychiatric services as an outpatient with his major consulted to provide resources for outpatient psychiatry as well as substance abuse services Physical exam Gen: patient is a AAOx3, no distress CVS: S1-S2, RRR, no murmur Lungs: B/L CTA, no wheezing Abdomen: soft, no distention, no tenderness, positive bowel sounds Extremity: no leg edema or induration Time spent more than 35 minutes Patient Condition at Discharge: Fair Plan - Discharge Summary Discharge Rx Participant: No New Discharge Prescriptions: No Action No Known Home Medications Discharge Medication List No Known Home Medications 01/18/21 [History] Follow up Appointment(s)/Referral(s): Pari Collado MD [STAFF PHYSICIAN] - 2 Weeks (pain Management follow up in 2-4 weeks) Tr Maldonado MD [STAFF PHYSICIAN] - 2 Weeks (shearing machine tender) None,Stated [Primary Care Provider] - 1-2 days Discharge/Stand Alone Forms: Anes Pain/[facility] Instructions
[2021-01-24] MEDS ORDERED: PREGABALIN 50 MG CAP PO SCH (16:00)
[2021-01-25] MEDS ORDERED: GLIMEPIRIDE 4 MG TAB PO SCH (07:30)
[2021-01-25] MEDS ORDERED: amLODIPine 10 MG TAB PO SCH (09:00)
== END 2021-01-24 15:04 | disposition home health service (06) | DRG 552 ==
LOC: EC 13:07 → 5NMEDONC 15:24 → OBSVTOIN 01-24 07:29
PROVIDERS: ADMIT Internal Medicine; ATTEND Internal Medicine
PROC: 3E0R3BZ Introduction of Anesthetic Agent into Spinal Canal, Percutaneous Approach (ICD-10-PCS; principal; 2021-01-24)
PROC: 3E0R33Z Introduction of Anti-inflammatory into Spinal Canal, Percutaneous Approach (ICD-10-PCS; principal; 2021-01-24)
PROC: B01B1ZZ Fluoroscopy of Spinal Cord using Low Osmolar Contrast (ICD-10-PCS; principal; 2021-01-24)
DX: M51.16 Intervertebral disc disorders with radiculopathy, lumbar region (principal); N17.9 Acute kidney failure, unspecified; R18.8 Other ascites; I50.22 Chronic systolic (congestive) heart failure; E87.1 Hypo-osmolality and hyponatremia; I69.354 Hemiplegia and hemiparesis following cerebral infarction affecting left non-dominant side; F32.0 Major depressive disorder, single episode, mild; D69.6 Thrombocytopenia, unspecified; E11.42 Type 2 diabetes mellitus with diabetic polyneuropathy; I11.0 Hypertensive heart disease with heart failure; E11.621 Type 2 diabetes mellitus with foot ulcer; J44.9 Chronic obstructive pulmonary disease, unspecified; L97.519 Non-pressure chronic ulcer of other part of right foot with unspecified severity; F11.10 Opioid abuse, uncomplicated; Z66 Do not resuscitate; I49.3 Ventricular premature depolarization; R62.7 Adult failure to thrive; B19.20 Unspecified viral hepatitis C without hepatic coma; I25.10 Atherosclerotic heart disease of native coronary artery without angina pectoris; T38.3X6A Underdosing of insulin and oral hypoglycemic [antidiabetic] drugs, initial encounter; E78.5 Hyperlipidemia, unspecified; K76.9 Liver disease, unspecified; I25.5 Ischemic cardiomyopathy; F41.9 Anxiety disorder, unspecified; M54.12 Radiculopathy, cervical region; I08.1 Rheumatic disorders of both mitral and tricuspid valves; I25.2 Old myocardial infarction; F12.10 Cannabis abuse, uncomplicated; G89.29 Other chronic pain; R26.2 Difficulty in walking, not elsewhere classified; F17.210 Nicotine dependence, cigarettes, uncomplicated; Z71.6 Tobacco abuse counseling; Z79.02 Long term (current) use of antithrombotics/antiplatelets; Z79.899 Other long term (current) drug therapy; Z91.5 Personal history of self-harm; Z86.14 Personal history of Methicillin resistant Staphylococcus aureus infection; Z90.49 Acquired absence of other specified parts of digestive tract; Z87.19 Personal history of other diseases of the digestive system; Z95.5 Presence of coronary angioplasty implant and graft; Z90.89 Acquired absence of other organs; Z76.5 Malingerer [conscious simulation]; Z87.81 Personal history of (healed) traumatic fracture; Z98.890 Other specified postprocedural states; W10.9XXA Fall (on) (from) unspecified stairs and steps, initial encounter; Z88.0 Allergy status to penicillin; Z88.8 Allergy status to other drugs, medicaments and biological substances; Z82.49 Family history of ischemic heart disease and other diseases of the circulatory system; Z83.3 Family history of diabetes mellitus; Z80.9 Family history of malignant neoplasm, unspecified; Z81.8 Family history of other mental and behavioral disorders
CPT/HCPCS: 36415; 62323; 80048; 85025; 85027; 93005; 93306; 96374; 99285

== ENCOUNTER 2021-03-25 23:44 | Emergency (ER) | payer OTHER ==
[2021-03-26] MEDS ORDERED: MORPHINE SULFATE 4 MG/ML SYRINGE IV STA (00:38)
[2021-03-26 01:28] LABS: Basophils # (A) 0.1 k/uL (0-0.2); Basophils % (A) 1 %; Eosinophils # (A) 0.2 k/uL (0-0.7); Eosinophils % (A) 2 %; HCT 41.5 % (39.0-53.0); HGB 14.1 gm/dL (13.0-17.5); Lymphocytes # (A) 1.4 k/uL (1.0-4.8); Lymphocytes % (A) 18 %; MCHC 33.9 g/dL (31.0-37.0); MCV 94.5 fL (80.0-100.0); Mean Platelet Volume 9.5; Monocytes # (A) 0.5 k/uL (0-1.0); Monocytes % (A) 7 %; Neutrophils # (A) 5.2 k/uL (1.3-7.7); Neutrophils % (A) 69 %; Platelet Count 145 k/uL (150-450); RBC 4.39 m/uL (4.30-5.90); RDW 13.6 % (11.5-15.5); WBC 7.5 k/uL (3.8-10.6)
[2021-03-26 01:46] LABS: Appearance,Urine Clear (Clear); Bilirubin,Urine Negative (Negative); Blood,Urine Large (Negative); Budding Yeast,Urine Rare /hpf; Color,Urine Yellow; Glucose,Urine (UA) 1+ (Negative); Hyaline Casts,Urine 4 /lpf (0-2); Ketones,Urine Negative (Negative); Leukocyte Esterase,Urine Negative (Negative); Mucus,Urine Rare /hpf; Nitrite,Urine Negative (Negative); PH, Urine 6.5 (5.0-8.0); Protein,Urine 3+ (Negative); RBC,Urine 35 /hpf (0-5); Specific Gravity,Urine 1.024 (1.001-1.035); WBC,Urine 2 /hpf (0-5)
[2021-03-26 01:49] LABS: ALT 51 U/L (4-49); AST 71 U/L (17-59); African American GFR (CKD) >90 (>60 ml/min/1.73 sqM); Albumin 2.6 g/dL (3.5-5.0); Alkaline Phosphatase 217 U/L (38-126); Amylase 55 U/L (30-110); Anion Gap 2 mmol/L; Blood Urea Nitrogen 23 mg/dL (9-20); Carbon Dioxide 27 mmol/L (22-30); Chloride 106 mmol/L (98-107); Glucose 219 mg/dL (74-99); Lipase 114 U/L (23-300); Non-African American GFR(CKD) >90 (>60 ml/min/1.73 sqM); Potassium 4.3 mmol/L (3.5-5.1); Sodium 135 mmol/L (137-145); Total Bilirubin 0.5 mg/dL (0.2-1.3); Total Protein 5.7 g/dL (6.3-8.2)
[2021-03-26 01:52] VITALS: RESP 20
--- NOTE | 2021-03-26 02:25 | XR ---
EXAMINATION TYPE: XR chest 2V DATE OF EXAM: 03/26/2021 COMPARISON: NONE HISTORY: 02/26/2020 TECHNIQUE: 2 views FINDINGS: Heart and mediastinum are normal. Lungs are clear. Bony thorax is intact. There is some bl unting of the posterior costophrenic angles. IMPRESSION: There are small pleural effusions which appear new compared to old exam. Normal heart.
--- NOTE | 2021-03-26 02:37 | CT ---
EXAMINATION TYPE: CT abdomen pelvis w con DATE OF EXAM: 03/26/2021 COMPARISON: 04/07/2019 04/24/2019 HISTORY: ABD PAIN CT DLP: 890.10 mGycm Automated exposure control for dose reduction was used. CONTRAST: Performed with IV Contrast, patient injected with 100 mL of Isovue 300. Images obtained from the diaphragm to the floor the pelvis with IV contrast. There are bilateral pleural effusions. Heart is within normal limits. There is no pericardial effusio n. There is mild basilar pulmonary atelectasis. There is moderate abdominal ascites. Liver slightly irregular that could relate to cirrhosis. There i s no discrete liver mass. Spleen measures 13 cm. There is no evidence of pancreatic mass. There is re troperitoneal fluid in the left anterior pararenal space. There is some fluid in the lesser sac. There is no adrenal mass. The bile ducts are not dilated. There are clips from cholecystectomy. Kidne ys show satisfactory contrast opacification. There is no hydronephrosis. There are bilateral small re nal cortical cysts that measure up to 1 cm. There is no retroperitoneal adenopathy. Bladder distends smoothly. Prostate measures 5 cm. There is no inguinal hernia. There is no evidence of free air. I see no evidence of a bowel obstruction. There is normal enhanceme nt of the portal venous system. There is no evidence of thrombosis. There are sigmoid diverticula. Th ere is no diverticulitis. Lumbar vertebra have normal alignment. There is no compression fracture. Bony pelvis is intact. The h ip joints are intact. IMPRESSION: Abdominal ascites and bilateral pleural effusions. Probable cirrhosis. Pleural fluid not changed comp ared to old exam. Abdominal ascites appears new compared to old exam.
--- NOTE | 2021-03-26 03:05 | ED ---
General Adult HPI - General Chief complaint: Abdominal Pain Stated complaint: Abd Pain Time Seen by Provider: 03/25/21 23:47 Source: patient, EMS, RN notes reviewed Mode of arrival: EMS Limitations: no limitations - History of Present Illness Initial comments: 61-year-old male with a complicated past medical history presents to the emergency room for a chief complaint of abdominal pain. Patient states he has had abdominal pain and swelling for the past few days. States it has not swollen like this ever in the past. Patient states this is concerning him and he would like to be evaluated.Patient has no other complaints at this time including shortness of breath, chest pain, nausea or vomiting, headache, or visual changes. - Related Data Previous Rx's Medication Instructions Recorded Aspirin 81 mg PO DAILY #30 chewable 01/24/21 Atorvastatin Calcium [Lipitor] 40 mg PO DAILY #30 tablet 01/24/21 Carvedilol [Coreg] 6.25 mg PO AC-BID #60 tablet 01/24/21 DULoxetine HCL [Cymbalta] 30 mg PO DAILY #30 cap 01/24/21 Famotidine [Pepcid] 20 mg PO BID #60 tablet 01/24/21 Glimepiride [Amaryl] 4 mg PO DAILY #30 tab 01/24/21 Ibuprofen [Motrin] 400 mg PO Q4H PRN #30 tab 01/24/21 Lidocaine 5% Patch [Lidoderm 5% 1 patch TOPICAL DAILY #30 patch 01/24/21 Patch] Lisinopril [Prinivil] 5 mg PO DAILY #15 tab 01/24/21 OLANZapine [ZyPREXA] 2.5 mg PO DAILY #30 tablet 01/24/21 OLANZapine [ZyPREXA] 2.5 mg PO HS #30 tablet 01/24/21 Pregabalin [Lyrica] 50 mg PO TID 3 Days #9 cap 01/24/21 amLODIPine [Norvasc] 10 mg PO DAILY #30 tablet 01/24/21 sitaGLIPtin PHOSPHATE [Januvia] 25 mg PO DAILY #30 tab 01/24/21 Allergies Allergy/AdvReac Type Severity Reaction Status Date / Time Penicillins Allergy Unknown Verified 03/26/21 00:41 Childhood metformin AdvReac Mild Nausea Verified 03/26/21 00:41 Review of Systems ROS Statement: Those systems with pertinent positive or pertinent negative responses have been documented in the HPI. ROS Other: All systems not noted in ROS Statement are negative. Past Medical History Past Medical History: Coronary Artery Disease (CAD), Heart Failure, COPD, CVA/TIA, Diabetes Mellitus, Hyperlipidemia, Hypertension, Liver Disease, Myocardial Infarction ([place]) Additional Past Medical History / Comment(s): Ischemic cardiomyopathy with EF of 7% per patient, PVCs, CVA 2019 with L sided weakness, chronic low back pain d/t vertebral fractures years ago as well as cervical pinched nerves, DDD, IDDM type II, neuropathy bilateral hands/legs and feet, hepatitis C Last Myocardial Infarction Date:: October 2018 History of Any Multi-Drug Resistant Organisms: MRSA Date of last positivie culture/infection: 11/23/20 MDRO Source:: FOOT MRSA Past Surgical History: Cholecystectomy, Heart Catheterization, Heart Catheterization With Stent, Tonsillectomy Additional Past Surgical History / Comment(s): R heel I&D, colonoscopy. Past Anesthesia/Blood Transfusion Reactions: No Reported Reaction Date of Last Stent Placement:: 2011 Past Psychological History: Anxiety, Bipolar, Depression Smoking Status: Current some day smoker Past Alcohol Use History: None Reported Past Drug Use History: Heroin, Marijuana - Past Family History Mother Family Medical History: Cancer Father Family Medical History: Coronary Artery Disease (CAD), Diabetes Mellitus, Hypertension General Exam Limitations: no limitations General appearance: alert, in no apparent distress Head exam: Present: atraumatic Eye exam: Present: normal appearance, PERRL, EOMI. Absent: scleral icterus, conjunctival injection ENT exam: Present: normal exam, mucous membranes moist Neck exam: Present: normal inspection, full ROM. Absent: tenderness Respiratory exam: Present: normal lung sounds bilaterally. Absent: respiratory distress, wheezes Cardiovascular Exam: Present: regular rate, normal rhythm, normal heart sounds GI/Abdominal exam: Present: soft, distended, tenderness, normal bowel sounds Neurological exam: Present: alert Course Vital Signs 03/25/21 03/26/21 23:55 01:30 Temperature 99.1 F Pulse Rate 98 90 Respiratory 22 20 Rate Blood Pressure 168/78 167/89 O2 Sat by Pulse 99 96 Oximetry Medical Decision Making - Medical Decision Making Vitals are stable. CBC unremarkable. CMP reveals mild transaminitis. Urinalysis does show blood however no evidence of infection. CT abdomen and pelvis shows new moderate abdominal ascites as well as bilateral pleural effusions that are not change compared to old exam. Patient is denying any shortness of breath, leg swelling, or chest pain. Distally patient is stable for outpatient follow-up. Will be discharged home to follow with his doctor at his appointment this week. If he has worsening symptoms he will return here. - Lab Data Result diagrams: 03/26/21 01:13 03/26/21 01:13 Lab Results 03/26/21 03/26/21 03/26/21 Range/Units 01:13 01:13 01:13 WBC 7.5 (3.8-10.6) k/uL RBC 4.39 (4.30-5.90) m/uL Hgb 14.1 (13.0-17.5) gm/dL Hct 41.5 (39.0-53.0) % MCV 94.5 (80.0-100.0) fL MCH 32.0 (25.0-35.0) pg MCHC 33.9 (31.0-37.0) g/dL RDW 13.6 (11.5-15.5) % Plt Count 145 L (150-450) k/uL MPV 9.5 Neutrophils % 69 % Lymphocytes % 18 % Monocytes % 7 % Eosinophils % 2 % Basophils % 1 % Neutrophils # 5.2 (1.3-7.7) k/uL Lymphocytes # 1.4 (1.0-4.8) k/uL Monocytes # 0.5 (0-1.0) k/uL Eosinophils # 0.2 (0-0.7) k/uL Basophils # 0.1 (0-0.2) k/uL Sodium 135 L (137-145) mmol/L Potassium 4.3 (3.5-5.1) mmol/L Chloride 106 (98-107) mmol/L Carbon Dioxide 27 (22-30) mmol/L Anion Gap 2 mmol/L BUN 23 H (9-20) mg/dL Creatinine 0.89 (0.66-1.25) mg/dL Est GFR (CKD-EPI)AfAm >90 (>60 ml/min/1.73 sqM) Est GFR (CKD-EPI)NonAf >90 (>60 ml/min/1.73 sqM) Glucose 219 H (74-99) mg/dL Plasma Lactic Acid Adelso (0.7-2.0) mmol/L Calcium 8.0 L (8.4-10.2) mg/dL Total Bilirubin 0.5 (0.2-1.3) mg/dL AST 71 H (17-59) U/L ALT 51 H (4-49) U/L Alkaline Phosphatase 217 H (38-126) U/L NT-Pro-B Natriuret Pep pg/mL Total Protein 5.7 L (6.3-8.2) g/dL Albumin 2.6 L (3.5-5.0) g/dL Amylase 55 (30-110) U/L Lipase 114 (23-300) U/L Urine Color Yellow Urine Appearance Clear (Clear) Urine pH 6.5 (5.0-8.0) Ur Specific [place] 1.024 (1.001-1.035) Urine Protein 3+ H (Negative) Urine Glucose (UA) 1+ H (Negative) Urine Ketones Negative (Negative) Urine Blood Large H (Negative) Urine Nitrite Negative (Negative) Urine Bilirubin Negative (Negative) Urine Urobilinogen 4.0 (<2.0) mg/dL Ur Leukocyte Esterase Negative (Negative) Urine RBC 35 H (0-5) /hpf Urine WBC 2 (0-5) /hpf Hyaline Casts 4 H (0-2) /lpf Urine Mucus Rare H (None) /hpf Urine Yeast (Budding) Rare H (None) /hpf 03/26/21 03/26/21 Range/Units 01:13 01:13 WBC (3.8-10.6) k/uL RBC (4.30-5.90) m/uL Hgb (13.0-17.5) gm/dL Hct (39.0-53.0) % MCV (80.0-100.0) fL MCH (25.0-35.0) pg MCHC (31.0-37.0) g/dL RDW (11.5-15.5) % Plt Count (150-450) k/uL MPV Neutrophils % % Lymphocytes % % Monocytes % % Eosinophils % % Basophils % % Neutrophils # (1.3-7.7) k/uL Lymphocytes # (1.0-4.8) k/uL Monocytes # (0-1.0) k/uL Eosinophils # (0-0.7) k/uL Basophils # (0-0.2) k/uL Sodium (137-145) mmol/L Potassium (3.5-5.1) mmol/L Chloride (98-107) mmol/L Carbon Dioxide (22-30) mmol/L Anion Gap mmol/L BUN (9-20) mg/dL Creatinine (0.66-1.25) mg/dL Est GFR (CKD-EPI)AfAm (>60 ml/min/1.73 sqM) Est GFR (CKD-EPI)NonAf (>60 ml/min/1.73 sqM) Glucose (74-99) mg/dL Plasma Lactic Acid [place] 1.1 (0.7-2.0) mmol/L Calcium (8.4-10.2) mg/dL Total Bilirubin (0.2-1.3) mg/dL AST (17-59) U/L ALT (4-49) U/L Alkaline Phosphatase (38-126) U/L NT-Pro-B Natriuret Pep 05460 pg/mL Total Protein (6.3-8.2) g/dL Albumin (3.5-5.0) g/dL Amylase (30-110) U/L Lipase (23-300) U/L Urine Color Urine Appearance (Clear) Urine pH (5.0-8.0) Ur Specific [place] (1.001-1.035) Urine Protein (Negative) Urine Glucose (UA) (Negative) Urine Ketones (Negative) Urine Blood (Negative) Urine Nitrite (Negative) Urine Bilirubin (Negative) Urine Urobilinogen (<2.0) mg/dL Ur Leukocyte Esterase (Negative) Urine RBC (0-5) /hpf Urine WBC (0-5) /hpf Hyaline Casts (0-2) /lpf Urine Mucus (None) /hpf Urine Yeast (Budding) (None) /hpf Disposition Clinical Impression: Hematuria, Abdominal ascites Disposition: HOME SELF-CARE Condition: Good Instructions (If sedation given, give patient instructions): Acute Abdominal Pain (ED), Ascites (ED) Additional Instructions: Please follow-up with your doctor at your scheduled appointment this week. If you've any worsening symptoms return to the emergency room. Is patient prescribed a controlled substance at d/c from ED?: No Referrals: John Zaman MD [Primary Care Provider] - 1-2 days Time of Disposition: :21
[2021-03-26] MEDS ORDERED: MORPHINE SULFATE 4 MG/ML SYRINGE IVP STA (03:23)
[2021-03-26 06:09] VITALS: BP 162/99; PULSE 96; TEMP 98.2
== END 2021-03-26 04:15 | disposition home or self-care (01) ==
LOC: EC 23:44
DX: R31.9 Hematuria, unspecified (principal); R10.9 Unspecified abdominal pain; R18.8 Other ascites; R74.01 Elevation of levels of liver transaminase levels; I11.0 Hypertensive heart disease with heart failure; I50.9 Heart failure, unspecified; I25.2 Old myocardial infarction; E11.9 Type 2 diabetes mellitus without complications; F17.200 Nicotine dependence, unspecified, uncomplicated; J44.9 Chronic obstructive pulmonary disease, unspecified; Z88.0 Allergy status to penicillin; Z90.49 Acquired absence of other specified parts of digestive tract; Z88.8 Allergy status to other drugs, medicaments and biological substances
CPT/HCPCS: 36415; 83880; 80053; 82150; 83605; 83690; 85025; 81001; 71046; 74177; 99284; 96374; 96376; J2270; Q9967

== ENCOUNTER → 2021-03-26 | Outpatient (CLI) | payer OTHER ==
[2021-03-26 14:49] LABS: Appearance,Urine Clear (Clear); Bilirubin,Urine Negative (Negative); Blood,Urine Large (Negative); Color,Urine Yellow; Glucose,Urine (UA) Trace (Negative); Ketones,Urine Negative (Negative); Leukocyte Esterase,Urine Negative (Negative); Mucus,Urine Few /hpf; Nitrite,Urine Negative (Negative); PH, Urine 6.5 (5.0-8.0); Protein,Urine 4+ (Negative); RBC,Urine 56 /hpf (0-5); WBC,Urine 6 /hpf (0-5)
[2021-03-26 15:05] LABS: Specific Gravity,Urine >1.050 (1.001-1.035)
[2021-03-27 01:09] LABS: Basophils # (A) 0.09 X 10*3/uL (0.00-0.10); Basophils % (A) 1.3 %; Eosinophils # (A) 0.16 X 10*3/uL (0.04-0.35); Eosinophils % (A) 2.2 %; HCT 41.5 % (39.6-50.0); HGB 13.9 g/dL (13.0-17.0); Lymphocytes # (A) 1.55 X 10*3/uL (0.90-5.00); Lymphocytes % (A) 21.7 %; MCH 31.9 pg (27.0-32.0); MCHC 33.5 g/dL (32.0-37.0); MCV 95.2 fL (80.0-97.0); Mean Platelet Volume 12.4 fL (9.5-12.2); Monocytes # (A) 0.66 X 10*3/uL (0.20-1.00); Monocytes % (A) 9.2 %; Neutrophils # (A) 4.67 X 10*3/uL (1.80-7.70); Neutrophils % (A) 65.3 %; Platelet Count 152 X 10*3/uL (140-440); RBC 4.36 X 10*6/uL (4.40-5.60); RDW 13.1 % (11.5-14.5); WBC 7.15 X 10*3/uL (4.50-10.00)
[2021-03-27 01:49] LABS: Hemoglobin A1C 8.1 % (4.0-6.0)
[2021-03-27 03:07] LABS: Erythrocyte Sedimentation Rate 44 mm/Hr (0-20)
[2021-03-27 04:55] LABS: INR 1.01 (0.90-1.11); Partial Thromboplastin Time 30.1 sec (23.5-31.0)
[2021-03-27 06:14] LABS: T4, Free (Free Thyroxine) 1.2 ng/dL (0.80-1.80)
[2021-03-27 07:53] LABS: African American GFR (CKD) 93.1 (60.0-200.0); Albumin 3.4 g/dL (3.80-4.90); Albumin/Globulin Ratio 1.13 (1.60-3.17); Anion Gap 6.9 mmol/L (4.00-12.00); C Reactive Protein 1.3 mg/dL (0.0-0.8); Calcium 8.3 mg/dL (8.7-10.3); Carbon Dioxide 23.1 mmol/L (21.6-31.8); Magnesium 1.8 mg/dL (1.5-2.4); Non-African American GFR(CKD) 80.3 (60.0-200.0); Phosphorus 4.4 mg/dL (2.4-5.1); Potassium 4.5 mmol/L (3.5-5.5); Prostate Specific Antigen 1.4 ng/mL (0.0-4.5); Total Bilirubin 0.7 mg/dL (0.3-1.2); Total Protein 6.4 g/dL (6.2-8.2); Uric Acid 5.1 mg/dL (3.7-8.7)
== END | disposition home or self-care (01) ==
LOC: LABWHC1 13:55
PROVIDERS: ATTEND Internal Medicine
DX: D64.9 Anemia, unspecified (principal); E78.5 Hyperlipidemia, unspecified; E03.9 Hypothyroidism, unspecified; R80.9 Proteinuria, unspecified; E11.8 Type 2 diabetes mellitus with unspecified complications; E55.9 Vitamin D deficiency, unspecified
CPT/HCPCS: 36415; 80053; 80074; 81001; 82043; 82105; 82306; 82550; 82570; 82977; 83036; 83615; 83735; 83970; 84100; 84153; 84439; 84443; 84550; 85025; 85610; 85652; 85730; 86140

== ENCOUNTER 2021-03-28 15:04 | Emergency (ER) | payer OTHER ==
[2021-03-28] MEDS ORDERED: HYDROmorphone 1 MG/ML 1 ML SYRINGE IVP STA ×2 (15:20→17:50)
[2021-03-28 15:48] LABS: Basophils # (A) 0.1 k/uL (0-0.2); Basophils % (A) 1 %; Eosinophils # (A) 0.1 k/uL (0-0.7); Eosinophils % (A) 1 %; HCT 42.7 % (39.0-53.0); HGB 14.1 gm/dL (13.0-17.5); Lymphocytes # (A) 1.5 k/uL (1.0-4.8); Lymphocytes % (A) 23 %; MCH 31.8 pg (25.0-35.0); MCV 96.4 fL (80.0-100.0); Mean Platelet Volume 9.1; Monocytes # (A) 0.5 k/uL (0-1.0); Monocytes % (A) 7 %; Neutrophils # (A) 4.3 k/uL (1.3-7.7); Neutrophils % (A) 66 %; Platelet Count 154 k/uL (150-450); RBC 4.43 m/uL (4.30-5.90); WBC 6.5 k/uL (3.8-10.6)
--- NOTE | 2021-03-28 15:55 | XR ---
EXAMINATION TYPE: XR KUB DATE OF EXAM: 03/28/2021 COMPARISON: NONE HISTORY: Pain TECHNIQUE: Single supine KUB image of the abdomen is obtained FINDINGS: Small bowel demonstrates no evidence for dilatation or air fluid levels. Gas and fecal material is seen in non-distended colon. No convincing evidence for pneumoperitoneum. No unusual calcifications. The lung bases are clear. The osseous structures are intact. IMPRESSION: 1. Overall nonobstructive bowel gas pattern.
[2021-03-28 16:00] LABS: ALT 43 U/L (4-49); AST 53 U/L (17-59); African American GFR (CKD) >90 (>60 ml/min/1.73 sqM); Albumin 2.5 g/dL (3.5-5.0); Alkaline Phosphatase 175 U/L (38-126); Anion Gap 4 mmol/L; Bilirubin, Delta 0.2 mg/dL (0.0-0.2); Bilirubin,Unconjugated 0.6 mg/dL (0.0-1.1); Blood Urea Nitrogen 18 mg/dL (9-20); Calcium 8.1 mg/dL (8.4-10.2); Carbon Dioxide 22 mmol/L (22-30); Chloride 108 mmol/L (98-107); Glucose 181 mg/dL (74-99); Lipase 63 U/L (23-300); Non-African American GFR(CKD) >90 (>60 ml/min/1.73 sqM); Potassium 4.3 mmol/L (3.5-5.1); Sodium 134 mmol/L (137-145); Total Bilirubin 0.8 mg/dL (0.2-1.3); Total Protein 5.5 g/dL (6.3-8.2)
[2021-03-28 16:46] VITALS: RESP 18
--- NOTE | 2021-03-28 16:51 | ED ---
Abdominal Pain HPI - General Chief Complaint: Abdominal Pain Stated Complaint: abd pain Time Seen by Provider: 03/28/21 15:10 Source: patient, EMS Mode of arrival: EMS Limitations: no limitations - History of Present Illness Initial Comments: 61-year-old male with past medical history of heart failure, coronary artery disease, diabetes, hypertension, liver failure who presents the emergency department with reported abdominal pain. Patient states he was seen in the emergency department on the for similar complaint. CT was performed which demonstrated abdominal ascites and bilateral pleural effusions. Lab studies were within normal limits. Patient was discharged home and is to follow-up with his primary care doctor and pain management on Friday. Patient reports that his pain has been significant at home he does have anything to take therefore he decided to come into the emergency room. Reports to liver failure due to hep C. Was never treated. Patient denies any fevers. Admits to abdominal distention. No shortness of breath or chest pain. Admits to nausea and vomiting. Has not been able to hold down any food. No other alleviating, precipitating or modifying factors - Related Data Home Medications Medication Instructions Recorded Confirmed Atorvastatin Calcium [Lipitor] 40 mg PO HS 03/28/21 03/28/21 Clopidogrel [Plavix] 75 mg PO DAILY 03/28/21 03/28/21 INSULIN LISPRO (humaLOG) [humaLOG] See Protocol SQ AC-TID 03/28/21 03/28/21 Insulin Glargine,Hum.rec.anlog 30 unit SQ HS 03/28/21 03/28/21 [Basaglar Kwikpen U-100] Lisinopril [Prinivil] 10 mg PO DAILY 03/28/21 03/28/21 Previous Rx's Medication Instructions Recorded Aspirin 81 mg PO DAILY #30 chewable 01/24/21 Carvedilol [Coreg] 6.25 mg PO AC-BID #60 tablet 01/24/21 DULoxetine HCL [Cymbalta] 30 mg PO DAILY #30 cap 01/24/21 Famotidine [Pepcid] 20 mg PO BID #60 tablet 01/24/21 Glimepiride [Amaryl] 4 mg PO DAILY #30 tab 01/24/21 amLODIPine [Norvasc] 10 mg PO DAILY #30 tablet 01/24/21 sitaGLIPtin PHOSPHATE [Januvia] 25 mg PO DAILY #30 tab 01/24/21 HYDROcodone/APAP 7.5-325MG [Tunas 1 tab PO Q6HR PRN 3 Days #12 tab 03/28/21 7.5-325] Allergies Allergy/AdvReac Type Severity Reaction Status Date / Time Penicillins Allergy Unknown Verified 03/28/21 16:39 Childhood metformin AdvReac Mild Nausea Verified 03/28/21 16:39 Review of Systems ROS Statement: Those systems with pertinent positive or pertinent negative responses have been documented in the HPI. ROS Other: All systems not noted in ROS Statement are negative. Past Medical History Past Medical History: Coronary Artery Disease (CAD), Heart Failure, COPD, CVA/TIA, Diabetes Mellitus, Hyperlipidemia, Hypertension, Liver Disease, Myocardial Infarction ([place]) Additional Past Medical History / Comment(s): Ischemic cardiomyopathy with EF of 7% per patient, PVCs, CVA 2018 with L sided weakness, chronic low back pain d/t vertebral fractures years ago as well as cervical pinched nerves, DDD, IDDM type II, neuropathy bilateral hands/legs and feet, hepatitis C Last Myocardial Infarction Date:: October 2018 History of Any Multi-Drug Resistant Organisms: MRSA Date of last positivie culture/infection: 11/23/20 MDRO Source:: FOOT MRSA Past Surgical History: Cholecystectomy, Heart Catheterization, Heart Catheteri zation With Stent, Tonsillectomy Additional Past Surgical History / Comment(s): R heel I&D, colonoscopy. Past Anesthesia/Blood Transfusion Reactions: No Reported Reaction Date of Last Stent Placement:: 2011 Past Psychological History: Anxiety, Bipolar, Depression Smoking Status: Current some day smoker Past Alcohol Use History: None Reported Past Drug Use History: Heroin, Marijuana - Past Family History Mother Family Medical History: Cancer Father Family Medical History: Coronary Artery Disease (CAD), Diabetes Mellitus, Hypertension General Exam Limitations: no limitations General appearance: alert, in distress Head exam: Present: atraumatic, normocephalic, normal inspection Eye exam: Present: normal appearance, PERRL, EOMI. Absent: scleral icterus, conjunctival injection, periorbital swelling ENT exam: Present: normal exam, mucous membranes moist Neck exam: Present: normal inspection. Absent: tenderness, meningismus, lymphadenopathy Respiratory exam: Present: normal lung sounds bilaterally. Absent: respiratory distress, wheezes, rales, rhonchi, stridor Cardiovascular Exam: Present: regular rate, normal rhythm, normal heart sounds. Absent: systolic murmur, diastolic murmur, rubs, gallop, clicks GI/Abdominal exam: Present: soft, tenderness (generalized), normal bowel sounds. Absent: distended, guarding, rebound, rigid Extremities exam: Present: normal inspection, full ROM, normal capillary refill. Absent: tenderness, pedal edema, joint swelling, calf tenderness Back exam: Present: normal inspection Neurological exam: Present: alert, oriented X3, CN II-XII intact Psychiatric exam: Present: normal affect, normal mood Skin exam: Present: warm, dry, intact, normal color. Absent: rash Course Vital Signs 03/28/21 03/28/21 03/28/21 15:07 16:46 18:28 Temperature 98.4 F 97.8 F Pulse Rate 97 82 72 Respiratory 20 18 18 Rate Blood Pressure 141/118 149/92 148/88 O2 Sat by Pulse 99 97 97 Oximetry Medical Decision Making - Medical Decision Making The patient is placed into room 7. A thorough history and physical was perf ormed. IV is established the patient is given 1 mg of Dilaudid. Laboratory studies were conducted. I did review the patient's workup from the previous day. Laboratory studies were reviewed. Patient is reevaluated and requesting more pain medication. He is given a second dose. I did discuss diagnosis, differential treatment options. Patient is requesting pain medication for at home until he has a pain management appointment on Friday. Abdomen soft. Patient was given a short prescription for Tunas. Instructed on its proper use. Patient has a follow-up appointment with his primary care doctor on Friday. Also needs to see pain management on Friday. Return to the emergency room for any new or worsening symptoms. Patient is discharged home in stable condition - Lab Data Result diagrams: 03/28/21 15:24 03/28/21 15:24 Lab Results 03/28/21 03/28/21 03/28/21 Range/Units 15:24 15:24 15:24 WBC 6.5 (3.8-10.6) k/uL RBC 4.43 (4.30-5.90) m/uL Hgb 14.1 (13.0-17.5) gm/dL Hct 42.7 (39.0-53.0) % MCV 96.4 (80.0-100.0) fL MCH 31.8 (25.0-35.0) pg MCHC 33.0 (31.0-37.0) g/dL RDW 13.0 (11.5-15.5) % Plt Count 154 (150-450) k/uL MPV 9.1 Neutrophils % 66 % Lymphocytes % 23 % Monocytes % 7 % Eosinophils % 1 % Basophils % 1 % Neutrophils # 4.3 (1.3-7.7) k/uL Lymphocytes # 1.5 (1.0-4.8) k/uL Monocytes # 0.5 (0-1.0) k/uL Eosinophils # 0.1 (0-0.7) k/uL Basophils # 0.1 (0-0.2) k/uL Sodium 134 L (137-145) mmol/L Potassium 4.3 (3.5-5.1) mmol/L Chloride 108 H (98-107) mmol/L Carbon Dioxide 22 (22-30) mmol/L Anion Gap 4 mmol/L BUN 18 (9-20) mg/dL Creatinine 0.85 (0.66-1.25) mg/dL Est GFR (CKD-EPI)AfAm >90 (>60 ml/min/1.73 sqM) Est GFR (CKD-EPI)NonAf >90 (>60 ml/min/1.73 sqM) Glucose 181 H (74-99) mg/dL Plasma Lactic Acid [place]elso 1.6 (0.7-2.0) mmol/L Calcium 8.1 L (8.4-10.2) mg/dL Total Bilirubin 0.8 (0.2-1.3) mg/dL Conjugated Bilirubin 0.0 (0.0-0.3) mg/dL Unconjugated Bilirubin 0.6 (0.0-1.1) mg/dL Delta Bilirubin 0.2 (0.0-0.2) mg/dL AST 53 (17-59) U/L ALT 43 (4-49) U/L Alkaline Phosphatase 175 H (38-126) U/L Total Protein 5.5 L (6.3-8.2) g/dL Albumin 2.5 L (3.5-5.0) g/dL Lipase 63 (23-300) U/L Urine Color Urine Appearance (Clear) Urine pH (5.0-8.0) Ur Specific [place] (1.001-1.035) Urine Protein (Negative) Urine Glucose (UA) (Negative) Urine Ketones (Negative) Urine Blood (Negative) Urine Nitrite (Negative) Urine Bilirubin (Negative) Urine Urobilinogen (<2.0) mg/dL Ur Leukocyte Esterase (Negative) Urine RBC (0-5) /hpf Urine WBC (0-5) /hpf Ur Squamous Epith Cells (0-4) /hpf Urine Bacteria (None) /hpf Hyaline Casts (0-2) /lpf Urine Mucus (None) /hpf 03/28/21 Range/Units 16:46 WBC (3.8-10.6) k/uL RBC (4.30-5.90) m/uL Hgb (13.0-17.5) gm/dL Hct (39.0-53.0) % MCV (80.0-100.0) fL MCH (25.0-35.0) pg MCHC (31.0-37.0) g/dL RDW (11.5-15.5) % Plt Count (150-450) k/uL MPV Neutrophils % % Lymphocytes % % Monocytes % % Eosinophils % % Basophils % % Neutrophils # (1.3-7.7) k/uL Lymphocytes # (1.0-4.8) k/uL Monocytes # (0-1.0) k/uL Eosinophils # (0-0.7) k/uL Basophils # (0-0.2) k/uL Sodium (137-145) mmol/L Potassium (3.5-5.1) mmol/L Chloride (98-107) mmol/L Carbon Dioxide (22-30) mmol/L Anion Gap mmol/L BUN (9-20) mg/dL Creatinine (0.66-1.25) mg/dL Est GFR (CKD-EPI)AfAm (>60 ml/min/1.73 sqM) Est GFR (CKD-EPI)NonAf (>60 ml/min/1.73 sqM) Glucose (74-99) mg/dL Plasma Lactic Acid Adelso (0.7-2.0) mmol/L Calcium (8.4-10.2) mg/dL Total Bilirubin (0.2-1.3) mg/dL Conjugated Bilirubin (0.0-0.3) mg/dL Unconjugated Bilirubin (0.0-1.1) mg/dL Delta Bilirubin (0.0-0.2) mg/dL AST (17-59) U/L ALT (4-49) U/L Alkaline Phosphatase (38-126) U/L Total Protein (6.3-8.2) g/dL Albumin (3.5-5.0) g/dL Lipase (23-300) U/L Urine Color Yellow Urine Appearance Clear (Clear) Urine pH 6.5 (5.0-8.0) Ur Specific [place] 1.032 (1.001-1.035) Urine Protein 3+ H (Negative) Urine Glucose (UA) 1+ H (Negative) Urine Ketones Negative (Negative) Urine Blood Large H (Negative) Urine Nitrite Negative (Negative) Urine Bilirubin 1+ H (Negative) Urine Urobilinogen <2.0 (<2.0) mg/dL Ur Leukocyte Esterase Negative (Negative) Urine RBC 21 H (0-5) /hpf Urine WBC 2 (0-5) /hpf Ur Squamous Epith Cells <1 (0-4) /hpf Urine Bacteria Rare H (None) /hpf Hyaline Casts 18 H (0-2) /lpf Urine Mucus Many H (None) /hpf Disposition Clinical Impression: Abdominal ascites, Abdominal pain Disposition: HOME SELF-CARE Condition: Stable Instructions (If sedation given, give patient instructions): Abdominal Pain (ED) Additional Instructions: Please follow up with your doctor on Friday and pain management doctor on Friday. Return to the ED for any new or worsening symptoms. Prescriptions: HYDROcodone/APAP 7.5-325MG [Tunas 7.5-325] 1 tab PO Q6HR PRN 3 Days #12 tab PRN Reason: Pain Is patient prescribed a controlled substance at d/c from ED?: Yes When asked, does pt state using other controlled substances?: No If prescribed controlled substance>3 days was MAPS reviewed?: Prescribed <3 Days If opioid is for acute pain is fill amount 7 days or less?: Yes If Rx opioid, was Start Talking consent form obtained?: Yes Referrals: John Zaman MD [Primary Care Provider] - 1-2 days Time of Disposition: 17:54
[2021-03-28 16:59] LABS: Appearance,Urine Clear (Clear); Bacteria,Urine Rare /hpf; Bilirubin,Urine 1+ (Negative); Blood,Urine Large (Negative); Color,Urine Yellow; Glucose,Urine (UA) 1+ (Negative); Hyaline Casts,Urine 18 /lpf (0-2); Ketones,Urine Negative (Negative); Leukocyte Esterase,Urine Negative (Negative); Mucus,Urine Many /hpf; Nitrite,Urine Negative (Negative); PH, Urine 6.5 (5.0-8.0); Protein,Urine 3+ (Negative); RBC,Urine 21 /hpf (0-5); Specific Gravity,Urine 1.032 (1.001-1.035); Squamous Epithelial Cell,Urine <1 /hpf (0-4); Urobilinogen,Urine <2.0 mg/dL (<2.0); WBC,Urine 2 /hpf (0-5)
[2021-03-28 18:29] VITALS: BP 148/88; PULSE 72; TEMP 97.8
== END 2021-03-28 18:30 | disposition home or self-care (01) ==
LOC: EC 15:04
DX: R18.8 Other ascites (principal); I25.10 Atherosclerotic heart disease of native coronary artery without angina pectoris; J44.9 Chronic obstructive pulmonary disease, unspecified; I25.2 Old myocardial infarction; E78.5 Hyperlipidemia, unspecified; I50.9 Heart failure, unspecified; I13.0 Hypertensive heart and chronic kidney disease with heart failure and stage 1 through stage 4 chronic kidney disease, or unspecified chronic kidney disease; N18.9 Chronic kidney disease, unspecified; E11.22 Type 2 diabetes mellitus with diabetic chronic kidney disease; F17.200 Nicotine dependence, unspecified, uncomplicated; Z88.0 Allergy status to penicillin; Z88.8 Allergy status to other drugs, medicaments and biological substances; Z79.899 Other long term (current) drug therapy; Z79.4 Long term (current) use of insulin; Z86.73 Personal history of transient ischemic attack (TIA), and cerebral infarction without residual deficits; Z95.5 Presence of coronary angioplasty implant and graft; Z90.49 Acquired absence of other specified parts of digestive tract
CPT/HCPCS: 99284; 96374; 96376; 36415; 80053; 82248; 83605; 83690; 85025; 81001; 74018; J1170

== ENCOUNTER 2021-04-06 10:01 | Inpatient (IN) | payer OTHER ==
[2021-04-06 10:35] LABS: Basophils % (A) 1 %; Eosinophils # (A) 0.1 k/uL (0-0.7); Eosinophils % (A) 2 %; HCT 40.6 % (39.0-53.0); HGB 13.3 gm/dL (13.0-17.5); Lymphocytes # (A) 1.5 k/uL (1.0-4.8); Lymphocytes % (A) 23 %; MCHC 32.7 g/dL (31.0-37.0); MCV 97.7 fL (80.0-100.0); Monocytes # (A) 0.4 k/uL (0-1.0); Monocytes % (A) 7 %; Neutrophils # (A) 4.3 k/uL (1.3-7.7); Neutrophils % (A) 66 %; Platelet Count 160 k/uL (150-450); RBC 4.16 m/uL (4.30-5.90); RDW 13.6 % (11.5-15.5); WBC 6.5 k/uL (3.8-10.6)
[2021-04-06] MEDS ORDERED: HYDROmorphone 1 MG/ML 1 ML SYRINGE IVP STA (10:39)
[2021-04-06] MEDS ORDERED: ONDANSETRON 4 MG/2 ML VIAL IVP STA (10:39)
[2021-04-06 10:43] LABS: ALT 32 U/L (4-49); African American GFR (CKD) >90 (>60 ml/min/1.73 sqM); Amylase 50 U/L (30-110); Anion Gap 2 mmol/L; Blood Urea Nitrogen 21 mg/dL (9-20); Calcium 7.9 mg/dL (8.4-10.2); Carbon Dioxide 24 mmol/L (22-30); Chloride 108 mmol/L (98-107); Glucose 161 mg/dL (74-99); Lipase 102 U/L (23-300); Non-African American GFR(CKD) 87 (>60 ml/min/1.73 sqM); Sodium 134 mmol/L (137-145); Total Bilirubin 0.9 mg/dL (0.2-1.3)
--- NOTE | 2021-04-06 10:44 | ED ---
Abdominal Pain HPI - General Chief Complaint: Abdominal Pain Stated Complaint: abd pain Time Seen by Provider: 04/06/21 10:09 Source: patient, EMS, RN notes reviewed Mode of arrival: EMS Limitations: no limitations - History of Present Illness Initial Comments: patient is a 61-year-old male presenting to the ED for abdominal pain. Patient states pain is constant with episodes of stabbing pain in generalized abdomen and bilateral flank pain. patient states pain is 10 out of 10 with no relief in any position. patient reports current history of hep C with diagnosis of ascites on last ED visit. Patient voices that he is unable to keep anything down with nausea and vomiting since last ED visit. She reports was unable to make a pain clinic due to ride situation and has follow-up appointment with Dr. Zaidi in May. - Related Data Home Medications Medication Instructions Recorded Confirmed INSULIN LISPRO (humaLOG) [humaLOG] See Protocol SQ AC-TID MDD 30 units 03/28/21 04/06/21 Lisinopril [Prinivil] 10 mg PO DAILY 03/28/21 04/06/21 Carvedilol [Coreg] 12.5 mg PO BID 04/06/21 04/06/21 Ergocalciferol (Vitamin D2) 1,250 mcg PO WEEKLY 04/06/21 04/06/21 [Drisdol (50,000 Iu)] Insulin Glargine,Hum.rec.anlog 30 unit SQ HS 04/06/21 04/06/21 [Lantus Solostar Pen] Allergies Allergy/AdvReac Type Severity Reaction Status Date / Time Penicillins Allergy Unknown Verified 04/06/21 10:46 Childhood metformin AdvReac Mild Nausea Verified 04/06/21 10:46 Review of Systems ROS Statement: Those systems with pertinent positive or pertinent negative responses have been documented in the HPI. ROS Other: All systems not noted in ROS Statement are negative. Past Medical History Past Medical History: Coronary Artery Disease (CAD), Heart Failure, COPD, CVA/TIA, Diabetes Mellitus, Hyperlipidemia, Hypertension, Liver Disease, Myocardial Infarction ([place]) Additional Past Medical History / Comment(s): Ischemic cardiomyopathy with EF of 7% per patient, PVCs, CVA 2019 with L sided weakness, chronic low back pain d/t vertebral fractures years ago as well as cervical pinched nerves, DDD, IDDM type II, neuropathy bilateral hands/legs and feet, hepatitis C Last Myocardial Infarction Date:: October 2018 History of Any Multi-Drug Resistant Organisms: MRSA Date of last positivie culture/infection: 11/23/20 MDRO Source:: FOOT MRSA Past Surgical History: Cholecystectomy, Heart Catheterization, Heart Catheterization With Stent, Tonsillectomy Additional Past Surgical History / Comment(s): R heel I&D, colonoscopy. Past Anesthesia/Blood Transfusion Reactions: No Reported Reaction Date of Last Stent Placement:: 2011 Past Psychological History: Anxiety, Bipolar, Depression Smoking Status: Current some day smoker Past Alcohol Use History: None Reported Past Drug Use History: Heroin, Marijuana - Past Family History Mother Family Medical History: Cancer Father Family Medical History: Coronary Artery Disease (CAD), Diabetes Mellitus, Hypertension General Exam Limitations: no limitations General appearance: alert, in distress (pain) ENT exam: Present: other (poor dentition) Respiratory exam: Present: normal lung sounds bilaterally. Absent: respiratory distress, wheezes, rales, rhonchi, stridor Cardiovascular Exam: Present: regular rate, normal rhythm, normal heart sounds. Absent: systolic murmur, diastolic murmur, rubs, gallop, clicks GI/Abdominal exam: Present: distended (hep C), tenderness, hernia Back exam: Present: CVA tenderness (R), CVA tenderness (L) Neurological exam: Present: alert, oriented X3 Skin exam: Present: warm, dry, intact, other (jaundice) Course Vital Signs 04/06/21 04/06/21 10:04 11:51 Temperature 98.1 F Pulse Rate 88 75 Respiratory 20 18 Rate Blood Pressure 128/71 140/91 O2 Sat by Pulse 100 97 Oximetry Medical Decision Making - Medical Decision Making 61-year-old presented for abdominal pain worsening ascites. Patient has hep C with the repair, ascites. Patient be admitted for possible paracentesis. - Lab Data Result diagrams: 04/06/21 10:21 04/06/21 10: Lab Results 04/06/21 04/06/21 04/06/21 Range/Units 10:21 10:21 10:21 WBC 6.5 (3.8-10.6) k/uL RBC 4.16 L (4.30-5.90) m/uL Hgb 13.3 (13.0-17.5) gm/dL Hct 40.6 (39.0-53.0) % MCV 97.7 (80.0-100.0) fL MCH 32.0 (25.0-35.0) pg MCHC 32.7 (31.0-37.0) g/dL RDW 13.6 (11.5-15.5) % Plt Count 160 (150-450) k/uL MPV 9.0 Neutrophils % 66 % Lymphocytes % 23 % Monocytes % 7 % Eosinophils % 2 % Basophils % 1 % Neutrophils # 4.3 (1.3-7.7) k/uL Lymphocytes # 1.5 (1.0-4.8) k/uL Monocytes # 0.4 (0-1.0) k/uL Eosinophils # 0.1 (0-0.7) k/uL Basophils # 0.0 (0-0.2) k/uL PT 10.9 (9.0-12.0) sec INR 1.0 (<1.2) APTT 25.5 (22.0-30.0) sec Sodium 134 L (137-145) mmol/L Potassium 4.9 (3.5-5.1) mmol/L Chloride 108 H (98-107) mmol/L Carbon Dioxide 24 (22-30) mmol/L Anion Gap 2 mmol/L BUN 21 H (9-20) mg/dL Creatinine 0.94 (0.66-1.25) mg/dL Est GFR (CKD-EPI)AfAm >90 (>60 ml/min/1.73 sqM) Est GFR (CKD-EPI)NonAf 87 (>60 ml/min/1.73 sqM) Glucose 161 H (74-99) mg/dL Plasma Lactic Acid [place] (0.7-2.0) mmol/L Calcium 7.9 L (8.4-10.2) mg/dL Total Bilirubin 0.9 (0.2-1.3) mg/dL AST 57 (17-59) U/L ALT 32 (4-49) U/L Alkaline Phosphatase 121 (38-126) U/L Total Protein 5.8 L (6.3-8.2) g/dL Albumin 2.6 L (3.5-5.0) g/dL Amylase 50 (30-110) U/L Lipase 102 (23-300) U/L Urine Color Urine Appearance (Clear) Urine pH (5.0-8.0) Ur Specific [place] (1.001-1.035) Urine Protein (Negative) Urine Glucose (UA) (Negative) Urine Ketones (Negative) Urine Blood (Negative) Urine Nitrite (Negative) Urine Bilirubin (Negative) Urine Urobilinogen (<2.0) mg/dL Ur Leukocyte Esterase (Negative) Urine RBC (0-5) /hpf Urine WBC (0-5) /hpf Urine Mucus (None) /hpf 04/06/21 04/06/21 Range/Units 10:21 12:07 WBC (3.8-10.6) k/uL RBC (4.30-5.90) m/uL Hgb (13.0-17.5) gm/dL Hct (39.0-53.0) % MCV (80.0-100.0) fL MCH (25.0-35.0) pg MCHC (31.0-37.0) g/dL RDW (11.5-15.5) % Plt Count (150-450) k/uL MPV Neutrophils % % Lymphocytes % % Monocytes % % Eosinophils % % Basophils % % Neutrophils # (1.3-7.7) k/uL Lymphocytes # (1.0-4.8) k/uL Monocytes # (0-1.0) k/uL Eosinophils # (0-0.7) k/uL Basophils # (0-0.2) k/uL PT (9.0-12.0) sec INR (<1.2) APTT (22.0-30.0) sec Sodium (137-145) mmol/L Potassium (3.5-5.1) mmol/L Chloride (98-107) mmol/L Carbon Dioxide (22-30) mmol/L Anion Gap mmol/L BUN (9-20) mg/dL Creatinine (0.66-1.25) mg/dL Est GFR (CKD-EPI)AfAm (>60 ml/min/1.73 sqM) Est GFR (CKD-EPI)NonAf (>60 ml/min/1.73 sqM) Glucose (74-99) mg/dL Plasma Lactic Acid [place] 1.1 (0.7-2.0) mmol/L Calcium (8.4-10.2) mg/dL Total Bilirubin (0.2-1.3) mg/dL AST (17-59) U/L ALT (4-49) U/L Alkaline Phosphatase (38-126) U/L Total Protein (6.3-8.2) g/dL Albumin (3.5-5.0) g/dL Amylase (30-110) U/L Lipase (23-300) U/L Urine Color Yellow Urine Appearance Clear (Clear) Urine pH 6.0 (5.0-8.0) Ur Specific [place] 1.024 (1.001-1.035) Urine Protein 3+ H (Negative) Urine Glucose (UA) Trace H (Negative) Urine Ketones Negative (Negative) Urine Blood Moderate H (Negative) Urine Nitrite Negative (Negative) Urine Bilirubin Negative (Negative) Urine Urobilinogen <2.0 (<2.0) mg/dL Ur Leukocyte Esterase Negative (Negative) Urine RBC 4 (0-5) /hpf Urine WBC 1 (0-5) /hpf Urine Mucus Occasional H (None) /hpf Disposition Clinical Impression: Abdominal ascites, Hepatitis C, Abdominal pain Disposition: ADMITTED IP TO THIS [facility] Condition: Poor Referrals: John Zaman MD [Primary Care Provider] - 1-2 days
[2021-04-06 10:48] LABS: AST 57 U/L (17-59); Albumin 2.6 g/dL (3.5-5.0); Alkaline Phosphatase 121 U/L (38-126); Potassium 4.9 mmol/L (3.5-5.1); Total Protein 5.8 g/dL (6.3-8.2)
[2021-04-06 10:54] LABS: Partial Thromboplastin Time 25.5 sec (22.0-30.0); Prothrombin Time 10.9 sec (9.0-12.0)
[2021-04-06 12:42] LABS: Appearance,Urine Clear (Clear); Bilirubin,Urine Negative (Negative); Blood,Urine Moderate (Negative); Color,Urine Yellow; Glucose,Urine (UA) Trace (Negative); Ketones,Urine Negative (Negative); Leukocyte Esterase,Urine Negative (Negative); Mucus,Urine Occasional /hpf; Nitrite,Urine Negative (Negative); Protein,Urine 3+ (Negative); RBC,Urine 4 /hpf (0-5); Specific Gravity,Urine 1.024 (1.001-1.035); Urobilinogen,Urine <2.0 mg/dL (<2.0); WBC,Urine 1 /hpf (0-5)
[2021-04-06] MEDS ORDERED: ONDANSETRON 4 MG/2 ML VIAL IVP PRN (12:45)
[2021-04-06] MEDS ORDERED: NALOXONE 0.4 MG/ML 1 ML VIAL IV PRN (12:45)
[2021-04-06] MEDS: HYDROmorphone 0.5 MG/0.5 ML SYRINGE IVP PRN ×2 (14:15→18:36)
--- NOTE | 2021-04-06 15:51 | P.CONS ---
History of Present Illness - Reason for Consult Consult date: 04/06/21 Ascites, liver failure Requesting physician: Dk Henao - Chief Complaint Abdominal pain - History of Present Illness This is 61-year-old male who presented to the emergency department this morning with complaints of abdominal pain. Patient is stating that he is having flank pain as well as a stabbing pain that he was rating it 10 out of 10. He is having associated nausea and vomiting. He has a past medical history including coronary artery disease status post stent, chronic CHF with an estimated EF of 20-25%, history of CVA/TIA, type 2 diabetes, hypertension, hyperlipidemia, [place] and Hepatitis C diagnosed 10 years ago and treated. He also admits to [facility] history of alcohol abuse for 30 years, and states he quit 11 years ago. He is recently seen in the emergency department on 03/26/[address] of the abdomen showing abdominal ascites and bilateral pleural effusions. Probable cirrhosis. Pleural fluid not change compared to old exam. Abdominal ascites appears new compared to old exam. He has appointment with Dr. Zaidi in May. WBC 6.5 hemoglobin 13 hematocrit 40 platelet count 160,000 INR 1.0 total bilirubin 0.9 AST 57 ALT 32 alkaline phosphatase 121 amylase 50 and lipase 102. He states abdominal distention began about 2 weeks ago and he has had nausea with vomiting for 10 days. Barely able to keep food down. No previous history of paracentesis. Review of Systems REVIEW OF SYSTEMS: CARDIOPULMONARY: No chest pain or shortness of breath. Gastrointestinal: [place] pain, distention with nausea and vomiting. No hematemesis, coffee-ground emesis. No rectal bleeding, or melena. GENITOURINARY: No dysuria or hematuria. MUSCULOSKELETAL: Reports normal range of motion., Joint pain. SKIN: No rashes. No jaundice. ENDOCRINE: No chills, fevers. No excessive weight gain or loss. No polydipsia or polyuria. PSYCHIATRIC: Unremarkable. NEUROLOGY: No change in mental status. Denies dizziness, headache. ENT: Vision unremarkable. CONSTITUTIONAL: No recent weight loss. No fever, chills, night sweats. Past Medical History Past Medical History: Coronary Artery Disease (CAD), Heart Failure, COPD, CVA/TIA, Diabetes Mellitus, Hyperlipidemia, Hypertension, Liver Disease, Myocardial Infarction ([place]) Additional Past Medical History / Comment(s): Ischemic cardiomyopathy with EF of 7% per patient, PVCs, CVA 2019 with L sided weakness, chronic low back pain d/t vertebral fractures years ago as well as cervical pinched nerves, DDD, IDDM type II, neuropathy bilateral hands/legs and feet, hepatitis C Last Myocardial Infarction Date:: October 2018 History of Any Multi-Drug Resistant Organisms: MRSA Year Discovered:: 11/23/20 MDRO Source:: FOOT MRSA Past Surgical History: Cholecystectomy, Heart Catheterization, Heart Catheterization With Stent, Tonsillectomy Additional Past Surgical History / Comment(s): R heel I&D, colonoscopy. Past Anesthesia/Blood Transfusion Reactions: No Reported Reaction Date of Last Stent Placement:: 2011 Past Psychological History: Anxiety, Bipolar, Depression Smoking Status: Current some day smoker Past Alcohol Use History: None Reported Past Drug Use History: Heroin, Marijuana - Past Family History Mother Family Medical History: Cancer Father Family Medical History: Coronary Artery Disease (CAD), Diabetes Mellitus, Hypertension Medications and Allergies Home Medications Medication Instructions Recorded Confirmed Type INSULIN LISPRO (humaLOG) [humaLOG] See Protocol SQ AC-TID MDD 30 units 03/28/21 04/06/21 History Lisinopril [Prinivil] 10 mg PO DAILY 03/28/21 04/06/21 History Carvedilol [Coreg] 12.5 mg PO BID 04/06/21 04/06/21 History Ergocalciferol (Vitamin D2) 1,250 mcg PO WEEKLY 04/06/21 04/06/21 History [Drisdol (50,000 Iu)] Insulin Glargine,Hum.rec.anlog 30 unit SQ HS 04/06/21 04/06/21 History [Lantus Solostar Pen] Allergies Allergy/AdvReac Type Severity Reaction Status Date / Time Penicillins Allergy Unknown Verified 04/06/21 10:46 Childhood metformin AdvReac Mild Nausea Verified 04/06/21 10:46 Physical Exam Vitals: Vital Signs Temp Pulse Resp BP Pulse Ox 04/06/21 11:51 75 18 140/91 97 04/06/21 10:04 98.1 F 88 20 128/71 100 Intake and Output 04/06/21 04/06/21 04/06/21 06:59 14:59 22:59 Other: Weight 72.575 kg General appearance: The patient is alert, oriented, appears in no acute distress. HET: Head is normocephalic and atraumatic. Conjunctiva pink. Sclera anicteric. Neck: Supple without lymphadenopathy. Trachea midline. Heart: S1 S2. Regular rate and rhythm. Lungs: Clear to auscultation. Abdomen: Soft, diffuse tenderness, nondistended with bowel sounds. No guarding or rigidity. Skin: No rashes. No jaundice. Extremities: Normal skin color and turgor. No pedal edema. Neurological: No focal deficits. Alert and oriented 3.. Results CBC & Chem 7: 04/06/21 10:04/06/21 10: Labs: Abnormal Lab Results - Last 24 Hours (Table) 04/06/21 04/06/21 04/06/21 Range/Units : 10: 12:07 RBC 4.16 L (4.30-5.90) m/uL Sodium 134 L (137-145) mmol/L Chloride 108 H (98-107) mmol/L BUN 21 H (9-20) mg/dL Glucose 161 H (74-99) mg/dL Calcium 7.9 L (8.4-10.2) mg/dL Total Protein 5.8 L (6.3-8.2) g/dL Albumin 2.6 L (3.5-5.0) g/dL Urine Protein 3+ H (Negative) Urine Glucose (UA) Trace H (Negative) Urine Blood Moderate H (Negative) Urine Mucus Occasional H (None) /hpf Assessment and Plan (1) Abdominal ascites Narrative/Plan: 61-year-old with multiple comorbidities who was presenting to the hospital this morning with complaints of abdominal pain which she states were sharp associated with nausea and vomiting. Pain and distention began two weeks ago, nausea and vomiting ten days ago. He was recently seen in the emergency department and had CT of the abdomen and pelvis showing ascites. He had a hepatitis panel which showed a positive hepatitis C antibody. He was diagnosed with hepatitis C 10 years ago and treated by Dr. Burciaga. Likely dealing with decompensated cirrhosis of the liver with ascites from underlying chronic hepatitis C infection and history of alcohol abuse . Will order liver ultrasound and paracentesis for fluid studies. Current Visit: Yes Status: Acute Code(s): R18.8 - OTHER ASCITES SNOMED Code(s): 230888777 (2) Hepatitis C antibody test positive Narrative/Plan: Patient has history of hepatitis C with treatment Current Visit: Yes Status: Acute Code(s): R76.8 - OTHER SPECIFIED ABNORMAL IMMUNOLOGICAL FINDINGS IN SERUM SNOMED Code(s): 800769994 (3) Abdominal pain Current Visit: Yes Status: Acute Code(s): R10.9 - UNSPECIFIED ABDOMINAL PAIN SNOMED Code(s): 91891181 Plan: 1. Symptomatic and supportive care 2. Liver US ordered 3. IR consulted for paracentesis with fluid studies 4. Start Lasix 20 mg QD and Aldactone 50mg QD 5. Hep C RNA and genotype ordered 6. Patient will need outpatient follow up, he has appointment scheduled with Dr. Zaidi in May Thank you for allowing us to participate in the care of the patient, the GI service will sign off, gastroenterology will not be available at the hospital this weekend. If further evaluation by gastroenterology is required the patient will need transfer as per the primary team's discretion. Dr. Te Zaidi I agree with the dictator's note, documented as a scribe by Ce Duran.
--- NOTE | 2021-04-06 15:58 | US ---
EXAMINATION TYPE: US abdomen limited DATE OF EXAM: 04/06/2021 COMPARISON: CT 03/26/2021 CLINICAL HISTORY: assess for ascites. liver failure EXAM MEASUREMENTS: Liver Length: 16.5 cm Gallbladder Wall: Surgically absent c CBD: 0.5 cm Right Kidney: 10.2 x 4.7 x 6.3 cm Pancreas: visualized portions wnl Liver: nodular contour, heterogeneous echotexture Gallbladder: Surgically absent CBD: wnl Right Kidney: No hydronephrosis or masses seen Free fluid noted in all four quadrants. Incidental note is mad of right pleural effusion. IMPRESSION: 1. Small amount of ascites with findings suggestive of hepatocellular disease or cirrhosis correlate clinically. 2. Post cholecystectomy. 3. Incidental note made of small right pleural effusion.
[2021-04-06] MEDS ORDERED: NITROGLYCERIN SL TABS 0.4 MG TAB SUBLINGUAL PRN (17:05)
--- NOTE | 2021-04-06 18:08 | P.HPIM ---
History of Present Illness H&P Date: 04/06/21 (Ascites, positive for hep C, liver failure, rule out malignancy) Chief Complaint: Abdominal pain and progressive abdominal distention in the past 2 weeks. History and physical dictated by Dr. Austyn M.D. [facility]. Date of service 04/06/2021. Patient is new to me has been seen in the office once, he has been with several physicians in the past as he stated Dr. Tristan piper, Dr. JIMMY Kramer, seen by the hospitalist tamiko Hilliard in [facility]. Patient also has been under care of cardiology, seen in 2019 as he stated and he had a cardiac cath by Dr. Beth. And he had 2 stent basement patient very vague on the history, also he was under care of court specialist in the [facility]. And [facility] cardiology. His presentation to the emergency room has been recurrent and he brought to the ER by EMS with the complaint of abdominal pain and distention progressively increased and they found that he had ostitis and also he had history of hepati tis C was treated by his family doctor Dr. Burciaga in the hospital neck but currently found that he had hepatitis C positive. 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 Patient has significant history of alcohol intake and abuse and he used to drink 6 beers a day added to the vodka or other types of alcohol. He used to smoke marijuana and he used to do her drop injection however he quit it 2 years ago. Past medical history: #1 coronary artery disease atherosclerotic heart disease #2 chest pain and 2 stent in the heart done in [facility] by Dr. Soni as he stated we don't have no records. #3 patient had underlying diabetes mellitus2 insulin-dependent with the ALLERGY to metformin unclear if he had history of a pancreatitis in the past with drinking or not not very reliable h istory. He complained also of his lower leg pain with unclear etiology from the history and no available previous record from Dr. Burciaga or previous physicians. With the possibility of neuropathy considered. ALLERGY penicillin and metformin. 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 And he level along He used to drink heavily alcoholic beer and vodka. And he used to smoke 3 smoke marijuana. History of congestive heart failure 2 stent hypertension hyperlipidemia liver disease depression stroke in 2019 back pain since 1977 and previous heart attack Surgical history tonsillectomy, deviated septum repair and heart 2 stent placed He has history of colon polyp and colonoscopy more than 10 years ago done in the [facility] by Dr. Thorpe. He has 1 dog and he drink coffee 1-2 cup a day and a pop he smoke every day currently 5 cigarettes per day. Family history Sr. uterine cancer another sister lung cancer and he had his father had heart disease with complication diabetes mellitus and his father and his father family and depression is his sister hypertension his brother and si ster and father, high cholesterol Sr. brother and father. Breast cancer of the monitor alcoholism Alcoholism in the family brother sister and father. His active medication: He has been on [place] 325/7.5 mg 3 times a day from the hospital He is on Lantus swallow start pen taking 30 units at bedtime next he was on lysine upper L 10 mg once daily Rate 12.5 mg twice a day Motrin IB 200 mg 2 tablet when necessary Aspirin 81 mg once a day Atorvastatin 40 mg daily at bedtime and as from the hospital. Unclear that he taken different doses of carvedilol with noncompliance and the lysine upper L the 10 mg half a tablet with unknown actual regimen that he has. Review of system: #1 neuropsychiatry, non-reliable history of pain and anxiety and depression, noncompliant. #2 cardiovascular he had complain of chest pain is precordial #3 which is main complain of abdominal distention and progressive protrusion of his abdomen. Associated with nausea vomiting intermittent. #4 he had also history of peripheral vascular disease. #5 history of hepatitis C treated by Dr. Burciaga however is positive spell #6 musculoskeletal equal he has been losing weight and losing the muscle mass and generalized weakness. #7 hypertension #8 diabetes mellitus2 with complication. #9 recurrent presentation to the emergency room's No added data from the rest of review with the 14 bullet of review of system On examination: The head was normocephalic and atraumatic, pupil was equal reactive Hearing deficit on the left ear Oropharynx only 12 with he doesn't have no dentures and he can eat. Neck midline trachea, no lymphadenopathy no thyromegaly. Chest hyperinflated lung with the COPD and history of smoking breath sound distant no rhonchi's or wheezes. The back he had pre-sacral edema with the distention of the abdomen with possible pleural effusion clinically as dullness on percussion Heart history of stent and a cardiac ischemia in the past and he has sinus tachycardia with normal S1 and S2 he had occasional PVC and his diminished peripheral vascular with impaired capillary refill on his nail. He had emph ysematous lung. He was smoking back 1 pack per day for more than 35 years. GI his abdominal girth is not measured however he had protuberant abdomen with arthritis the ultrasound set small fluid in the abdomen however clinically has a large fluid in the abdomen with enlargement liver and spleen Extremities pain chronic as well as peripheral vascular disease bilaterally. 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 Neurologically no lateralizing sign no acute stroke. Assessment: Multiple medical problem, #1 Ascitis probably associated with liver failure and decompensation #2 ruling out other etiology cardiac-bacon #3 coronary artery disease atherosclerotic heart disease and 2 stent with the need for monitoring with the consultation with the cardiology and he is currently complain of intermittent chest pain and we consulting the cardiology Dr. Beth saw him in his lost admission as the patient stated and he had also did cardiac catheterization. And we will obtain an echocardiogram as well. #4 history of hepatitis C was positive and will obtain hepatitis C PCR quantitat petrona and qualitative and a genotype as well for confirmation and possible treatment if needed #5 history of nausea and vomiting, #6 history of congestive heart failure in the past. #6 arthritis #7 abdominal pain with possible from ascitis and liver distention. Line farther treatment dependent on the patient progression Plan: Consultation with gastroenterology #2 consultation with cardiology and requesting #3 the greenskeeper supervisor #4 was started on nitroglycerin sublingual 0.4 mg #5 started on Imdur 30 mg once a day until seen by the cardiology. Consultation with invasive radiology for aspiration, paracentesis of the abdomen. And for further investigation., Obtaining ammonia level him a o btaining hemoglobin A1c started his medication with adjustment and obtaining as well the lipid profile him a obtaining EKG which was not done in the ER with questionable by the history anteroseptal NC. And we are again going to obtain NT BNP as well Past Medical History Past Medical History: Coronary Artery Disease (CAD), Heart Failure, COPD, CVA/TIA, Diabetes Mellitus, Hyperlipidemia, Hypertension, Liver Disease, Myocardial Infarction (NC) Additional Past Medical History / Comment(s): Ischemic cardiomyopathy with EF of 7% per patient, PVCs, CVA 2019 with L sided weakness, chronic low back pain d/t vertebral fractures years ago as well as cervical pinched nerves, DDD, IDDM type II, neuropathy bilateral hands/legs and feet, hepatitis C Last Myocardial Infarction Date:: October 2018 History of Any Multi-Drug Resistant Organisms: MRSA Date of last positivie culture/infection: 11/23/20 MDRO Source:: FOOT MRSA Past Surgical History: Cholecystectomy, Heart Catheterization, Heart Catheterization With Stent, Tonsillectomy Additional Past Surgical History / Comment(s): R heel I&D, colonoscopy. Past Anesthesia/Blood Transfusion Reactions: No Reported Reaction Date of Last Stent Placement:: 2011 Past Psychological History: Anxiety, Bipolar, Depression Smoking Status: Current some day smoker Past Alcohol Use History: None Reported Past Drug Use History: Heroin, Marijuana - Past Family History Mother Family Medical History: Cancer Father Family Medical History: Coronary Artery Disease (CAD), Diabetes Mellitus, Hypertension Medications and Allergies Home Medications Medication Instructions Recorded Confirmed Type INSULIN LISPRO (humaLOG) [humaLOG] See Protocol SQ AC-TID MDD 30 units 03/28/21 04/06/21 History Lisinopril [Prinivil] 10 mg PO DAILY 03/28/21 04/06/21 History Carvedilol [Coreg] 12.5 mg PO BID 04/06/21 04/06/21 History Ergocalciferol (Vitamin D2) 1,250 mcg PO WEEKLY 04/06/21 04/06/21 History [Drisdol (50,000 Iu)] Insulin Glargine,Hum.rec.anlog 30 unit SQ HS 04/06/21 04/06/21 History [Lantus Solostar Pen] Allergies Allergy/AdvReac Type Severity Reaction Status Date / Time Penicillins Allergy Unknown Verified 04/06/21 10:46 Childhood metformin AdvReac Mild Nausea Verified 04/06/21 10:46 Physical Exam Vitals: Vital Signs Temp Pulse Resp BP Pulse Ox 04/06/21 11:51 75 18 140/91 97 04/06/21 10:04 98.1 F 88 20 128/71 100 Intake and Output 04/06/21 04/06/21 04/06/21 06:59 14:59 22:59 Other: Weight 72.575 kg Results CBC & Chem 7: 04/06/21 10:21 04/06/21 10:21 Labs: Abnormal Lab Results - Last 24 Hours (Table) 04/06/21 04/06/21 04/06/21 Range/Units 10: 10: 12:07 RBC 4.16 L (4.30-5.90) m/uL Sodium 134 L (137-145) mmol/L Chloride 108 H (98-107) mmol/L BUN 21 H (9-20) mg/dL Glucose 161 H (74-99) mg/dL Calcium 7.9 L (8.4-10.2) mg/dL Total Protein 5.8 L (6.3-8.2) g/dL Albumin 2.6 L (3.5-5.0) g/dL Urine Protein 3+ H (Negative) Urine Glucose (UA) Trace H (Negative) Urine Blood Moderate H (Negative) Urine Mucus Occasional H (None) /hpf
[2021-04-06 18:24] LABS: Glucose,Whole Blood 142 mg/dL (75-99)
[2021-04-06] MEDS: INSULIN ASPART (NovoLOG) 100 UNIT/ML VIAL SQ SCH ×2 (18:35→22:15)
[2021-04-06] MEDS: ISOSORBIDE MONONITRATE ER 30 MG TAB.ER.24H PO SCH (18:36)
--- NOTE | 2021-04-06 21:49 | XR ---
EXAMINATION TYPE: XR chest 2V DATE OF EXAM: 04/06/2021 COMPARISON: Chest x-ray dated 03/26/2021 HISTORY: Chest pain, pleural effusion TECHNIQUE: Frontal and lateral views of the chest are obtained. FINDINGS: There is been interval development of bibasilar increased attenuation. There is no evident pneumothorax or pleural effusion. Cardiac mediastinal silhouette is stable accounting for difference s in technique, exam is expiratory and rotated. Interstitium is mildly increased. IMPRESSION: Correlate for basilar atelectasis versus pneumonia, there may be a component of pulmonar y venous hypertension and early interstitial edema, expiratory rotated exam.
[2021-04-06 22:16] LABS: Glucose,Whole Blood 174 mg/dL (75-99)
[2021-04-06] MEDS: HYDROmorphone 1 MG/ML 1 ML SYRINGE IVP PRN (22:16)
[2021-04-07] MEDS: HYDROmorphone 1 MG/ML 1 ML SYRINGE IVP PRN ×7 (01:57→21:31)
[2021-04-07 07:24] LABS: Glucose,Whole Blood 105 mg/dL (75-99)
[2021-04-07 08:12] LABS: Basophils # (A) 0.1 k/uL (0-0.2); Basophils % (A) 1 %; Eosinophils # (A) 0.2 k/uL (0-0.7); Eosinophils % (A) 4 %; HCT 42.8 % (39.0-53.0); HGB 13.7 gm/dL (13.0-17.5); Lymphocytes # (A) 1.7 k/uL (1.0-4.8); Lymphocytes % (A) 31 %; MCH 31.6 pg (25.0-35.0); MCHC 31.9 g/dL (31.0-37.0); MCV 98.9 fL (80.0-100.0); Mean Platelet Volume 8.5; Monocytes # (A) 0.3 k/uL (0-1.0); Monocytes % (A) 6 %; Neutrophils # (A) 3.1 k/uL (1.3-7.7); Neutrophils % (A) 56 %; Platelet Count 172 k/uL (150-450); RBC 4.33 m/uL (4.30-5.90); RDW 13.6 % (11.5-15.5); WBC 5.5 k/uL (3.8-10.6)
[2021-04-07 08:27] LABS: ALT 39 U/L (4-49); AST 70 U/L (17-59); African American GFR (CKD) >90 (>60 ml/min/1.73 sqM); Albumin 2.8 g/dL (3.5-5.0); Albumin/Globulin Ratio 0.9; Alkaline Phosphatase 135 U/L (38-126); Amylase 55 U/L (30-110); Anion Gap 3 mmol/L; Bilirubin,Unconjugated 0.4 mg/dL (0.0-1.1); Blood Urea Nitrogen 21 mg/dL (9-20); Calcium 8.5 mg/dL (8.4-10.2); Carbon Dioxide 25 mmol/L (22-30); Chloride 107 mmol/L (98-107); GGT 230 U/L (15-73); Globulin 3.2 g/dL; Glucose 119 mg/dL (74-99); Lipase 82 U/L (23-300); Magnesium 1.9 mg/dL (1.6-2.3); Non-African American GFR(CKD) 88 (>60 ml/min/1.73 sqM); Potassium 4.7 mmol/L (3.5-5.1); Sodium 135 mmol/L (137-145); Total Bilirubin 0.6 mg/dL (0.2-1.3); Uric Acid 6.2 mg/dL (3.5-8.5)
[2021-04-07] MEDS ORDERED: FUROSEMIDE 20 MG TAB PO SCH (09:00)
[2021-04-07] MEDS ORDERED: LACTULOSE 20 GM/30 ML CUP PO SCH (09:00)
[2021-04-07] MEDS: INSULIN ASPART (NovoLOG) 100 UNIT/ML VIAL SQ SCH ×4 (10:19→21:35)
[2021-04-07] MEDS: SPIRONOLACTONE 25 MG TAB PO SCH (10:31)
[2021-04-07] MEDS: NICOTINE 14MG/24HR PATCH TRANSDERM SCH (10:31)
[2021-04-07] MEDS: ISOSORBIDE MONONITRATE ER 30 MG TAB.ER.24H PO SCH (10:31)
--- NOTE | 2021-04-07 10:47 | P.PN ---
Subjective Progress Note Date: 04/07/21 Principal diagnosis: Diagnoses: #1 abdominal distention with a sinusitis #2 hepatosplenomegaly #3 ischemic cardiomyopathy with ejection fraction 40-45% by the echocardiogram done on 01/21/2021 with mild aortic valve sclerosis and mild mitral regurgitation and mild tricuspid regurgitation. #4 hepatitis C positive despite that patient stated that he was treated. #5 history of cardiac catheterization on 02/16/[address] Beth with history of angina, RCA stenting. Post cardiac cath indicating right coronary artery restenosis moderate obstructive coronary artery disease of the left coronary artery and at that time the procedure performed selective right and left coronary artery angiography #2 left heart catheterization #3 left ventriculography and approach at that time was a right radial artery. #6 peripheral arterial disease #7 multiple fungal infection of the toes and soreness. #8 chronic smoker with the COPD. #9 patient claimed that he had diarrhea watery stools we'll check for C. difficile. And will hold on the lactulose until we get the results. #10 paracentesis per gastroenterology not done yet Progress note date of service 04/07/2021. Patient seen and evaluated today Complained that he had a watery diarrhea, with the abdominal distention and Ascitis which progressively increased in the last 2 weeks. Patient is new to me apparently he has been seen by several physician in town and has been going back and forth noncompliant. Strong history of alcohol intake and alcoholism, has also just strong history of diabetes mellitus could be associated with the pancreatitis or liver failure as a secondary. Patient has history also of drug abuse which he stated that he does not use it for the last 2 years. I found in the old record of [facility] that he has been checked by Dr. Beth and he did for him cardiac catheterization in 02/16/2016 also he had history of recent echocardiogram on January 21 and he had ejection fraction of 40-45% with impairment of left ventricular function he has a mild aortic valve sclerosis mitral regurgitation tricuspid regurgitation but no pericardial effusion. Vital signs this morning temperature 97.6 F oral pulse 67 and his respiratory rate 20 blood pressure 124/75 and heart rate 91/m and regular his oxygen sa turation 95% Laboratories: WBC 5.5 hemoglobin 13.7 hematocrit 42.8 and MCV 98.9 Chemistry he has sodium 135 potassium 4.7 and a chloride 107 carbon dioxide 25 anion gap of 3 the line of 21 creatinine 0.93 his estimated glomerular filtration rate 88 blood sugar 119 this morning with only blood sugar checked before meals and at bedtime and cover with the scale. No long-acting insulin has been reinstituted. His uric acid is normal 6.2 and calcium 8.5 total bilirubin 1.9 and a conjugated bilirubin is 0.6 and his GGT 230 which is highly increased as well as AST 70 as well as a LT is 39 his alkaline phosphatase 135 his total protein is 6 and albumin 2.8 globulin is normal 3.2 and serum, he lays and lipase is normal patient had complained of abdominal pain could be due to the distention of the abdomen CBG this morning 105 fairly well controlled. His NT proBNP 11757 markedly elevated with the underlying probably congestive heart failure chronically present we did consultation with the money laundering investigator and not yet seen by the cardiology group with the underlying ischemic cardiomyopathy and a history of ejection fraction 40-45% and he stated that he had 2 stent and he had intermittent chest pain. Gastroenterology will not see him on total Friday when they are [place] to [place]. Paracentesis ordered but not done yet. His urine indicating 3+ protein only in the RBCs 4 and urine moderate blood Coronavirus PCR not detected. On the physical exam: Patient is conscious alert oriented 3 able to ambulate Complain of the distention of his abdomen and we will be checking in his previous records if he had a computed tomography scan of the abdomen with contrast his renal function is stable. With the possibility of portal hypertension associated with Ascitis. Neck was supple no lump no lymph node Chest increased anteroposterior diameter with normal breath sound with hyper inflation of the lung and the chest x-ray was done with the impression basilar atelectasis pulmonary venous hypertension and early interstitial edema. Abdomen: Protuberant with ascites and hepatosplenomegaly. Extremities severe peripheral vascular disease with tinea pedis as well as NyQuil mycosis as well as fungal infection however all these has been chronic. Neurologically no confusion no disorientation conscious and alert Assessment: #1 multiple medical problem, hep C, liver failure, ischemic cardiomyopathy, cor onary artery disease atherosclerotic heart disease. Diabetes mellitus hypertension Plan adjusting his medication consultation with gastroenterology and cardiology. Waiting for the paracentesis and the results of the fluid. As well agreeable to retrieve the computed tomography scan done through the emergency room of the abdomen and pelvis with contrast and the results and the impression indicating that patient had abdominal ascites bilateral pleural effusion probable cirrhosis and the abdominal Ascitis appeared to be new these tests done in March 26 Patient also found that he had a ultrasound of the abdomen with the the gallbladder surgically absent and right kidney no hydronephrosis or masses and he had right pleural effusion small amount of ascites within the suggestive of hepatocellular disease or ceruminosis, post cholecystectomy and incidental note small right pleural effusion that date of service 04/06/2021. Objective - Vital Signs Vital signs: Vital Signs Temp 97.6 F 04/07/21 04:30 Pulse 67 04/07/21 04:30 Resp 20 04/07/21 04:30 BP 124/75 04/07/21 04:30 Pulse Ox 95 04/07/21 04:30 Intake & Output 04/06/21 04/07/21 04/07/21 18:59 06:59 18:59 Intake Total 100 Balance 100 Weight 72.575 kg 72.575 kg Intake: Oral 100 Other: Voiding Method Toilet Urinal # Voids 3 - Labs CBC & Chem 7: 04/07/21 07:47 04/07/21 07:47 Labs: Abnormal Lab Results - Last 24 Hours (Table) 04/06/21 04/06/21 04/06/21 Range/Units 10:19 04: 12:07 RBC 4.16 L (4.30-5.90) m/uL Sodium 134 L (137-145) mmol/L Chloride 108 H (98-107) mmol/L BUN 21 H (9-20) mg/dL Glucose 161 H (74-99) mg/dL POC Glucose (mg/dL) (75-99) mg/dL Calcium 7.9 L (8.4-10.2) mg/dL GGT (15-73) U/L AST (17-59) U/L Alkaline Phosphatase (38-126) U/L Total Protein 5.8 L (6.3-8.2) g/dL Albumin 2.6 L (3.5-5.0) g/dL Urine Protein 3+ H (Negative) Urine Glucose (UA) Trace H (Negative) Urine Blood Moderate H (Negative) Urine Mucus Occasional H (None) /hpf 04/06/21 04/06/21 04/07/21 Range/Units 18:22 22:02 07:16 RBC (4.30-5.90) m/uL Sodium (137-145) mmol/L Chloride (98-107) mmol/L BUN (9-20) mg/dL Glucose (74-99) mg/dL POC Glucose (mg/dL) 142 H 174 H 105 H (75-99) mg/dL Calcium (8.4-10.2) mg/dL GGT (15-73) U/L AST (17-59) U/L Alkaline Phosphatase (38-126) U/L Total Protein (6.3-8.2) g/dL Albumin (3.5-5.0) g/dL Urine Protein (Negative) Urine Glucose (UA) (Negative) Urine Blood (Negative) Urine Mucus (None) /hpf 04/07/21 Range/Units 07:47 RBC (4.30-5.90) m/uL Sodium 135 L (137-145) mmol/L Chloride (98-107) mmol/L BUN 21 H (9-20) mg/dL Glucose 119 H (74-99) mg/dL POC Glucose (mg/dL) (75-99) mg/dL Calcium (8.4-10.2) mg/dL GGT 230 H (15-73) U/L AST 70 H (17-59) U/L Alkaline Phosphatase 135 H (38-126) U/L Total Protein 6.0 L (6.3-8.2) g/dL Albumin 2.8 L (3.5-5.0) g/dL Urine Protein (Negative) Urine Glucose (UA) (Negative) Urine Blood (Negative) Urine Mucus (None) /hpf
[2021-04-07 11:51] LABS: Glucose,Whole Blood 183 mg/dL (75-99)
[2021-04-07 13:12] LABS: Chol/HDL Ratio 4.37 Ratio; LDL Cholesterol,Calculated 132.5 mg/dL (0.0-131.0); Prealbumin 11.4 mg/dL (18.0-42.0)
--- NOTE | 2021-04-07 14:00 | ECHOF ---
Referral Reason:Impaired ejection fraction, 2 stent, tricuspid reg MEASUREMENTS -------- HEIGHT: 180.3 cm WEIGHT: 72.6 kg BP: IVSd: 1.2 cm (0.6 - 1.1) LVIDd: 5.8 cm (3.9 - 5.3) LVPWd: 1.2 cm (0.6 - 1.1) EDV(Teich): 165 ml IVSs: 1.5 cm LVIDs: 4.9 cm LVPWs: 1.4 cm %IVS Thck: 28 % ESV(Teich): 112 ml EF(Teich): 32 % %FS: 16 % SV(Teich): 53 ml LVOT Diam: 1.7 cm RVIDd: 2.4 cm (< 3.3) IVC: 16.36 mm LALs A4C: 5.4 cm LAAs A4C: 16.9 cm LAESV A-L A4C: 44 ml LAESV MOD A4C: 40 ml LALs A2C: 4.2 cm LAAs A2C: 11.8 cm LAESV A-L A2C: 28 ml LAESV MOD A2C: 27 ml LAESV(A-L): 40 ml LAESV Index (A-L): 20.75 ml/m Ao Diam: 2.7 cm (2.0 - 3.7) LA Diam: 3.6 cm (2.7 - 3.8) AV Cusp: 1.2 cm (1.5 - 2.6) MV E [place]: 0.70 m/s MV DecT: 150 ms MV [place]: 4.6 m/s MV A [place]: 0.31 m/s MV E/A Ratio: 2.22 MV PHT: 43 ms MR Vmax: 2.58 m/s MR maxP.59 mmHg AV Vmax: 1.45 m/s AV maxP.41 mmHg AV Vmax: 1.59 m/s AV Vmean: 0.95 m/s AV maxP.06 mmHg AV meanP.10 mmHg AV Env.Ti: 208 ms AV VTI: 19.7 cm TR Vmax: 2.16 m/s TR maxP.58 mmHg RAP: 5.00 mmHg RVSP: 23.58 mmHg FINDINGS -------- This was a technically good study. The left ventricular size is normal. There is mild concentric left ventricular hypertrophy. There is severe global hypokinesis of LV . Overall left ventricular systolic function is severely impair ed with, an EF < 20%. Normal LAP Grade 1 Diastolic Dysfunction. The right ventricle is normal in size. The left atrial size is normal. Normal LA size by volume 22+/-6 ml/m2. The right atrial size is normal. Aortic valve is trileaflet and is moderately thickened. Peak/mean gradient across the Aortic Valve is 10.06mmHg / 5.10mmHg. AOV is possible Bicuspid. The mitral valve is normal. The mitral valve leaflets are mildly thickened. Mild mitral regurgita tion is present. The tricuspid valve appears structurally normal. Mild tricuspid regurgitation present. Right vent ricular systolic pressure is normal at < 35 mmHg. There is no pulmonic regurgitation present. The aortic root size is normal. Normal inferior vena cava with normal inspiratory collapse consistent with estimated right atrial pre ssure of 5 mmHg. There is no pericardial effusion. CONCLUSIONS -------- 1. The left ventricular size is normal. 2. There is mild concentric left ventricular hypertrophy. 3. There is severe global hypokinesis of LV . 4. Overall left ventricular systolic function is severely impaired with, an EF < 20%. 5. Normal LAP Grade 1 Diastolic Dysfunction. 6. Aortic valve is trileaflet and is moderately thickened. 7. Peak/mean gradient across the Aortic Valve is 10.06mmHg / 5.10mmHg. 8. AOV is possible Bicuspid. 9. The mitral valve leaflets are mildly thickened. 10. Mild mitral regurgitation is present. 11. Mild tricuspid regurgitation present. 12. There is no pericardial effusion. FINE CRAFT ARTIST: Latonia Garcia RDCS
[2021-04-07 17:14] LABS: Glucose,Whole Blood 70 mg/dL (75-99)
[2021-04-07 17:41] LABS: Glucose,Whole Blood 111 mg/dL (75-99)
--- NOTE | 2021-04-07 17:55 | P.CRDCN ---
History of Present Illness Consult date: 04/07/21 Reason for Consult (text): Chest pain and CHF Consult reason: chest pain, congestive heart failure History of present illness: This is Tong Jewell NP dictating a consult on this patient on behalf of Dr. Catherine. The patient was interviewed and examined. HPI: Patient is a pleasant 61-year-old male who initially presented to the hospital for abdominal ascites, hepatitis C, and liver failure. Cardiology was consult to do the patient complaining of chest pain and congestive heart failure symptoms. Patient reports chest pain that has been consistently coming and going, however increasing in duration and intensity, at times lasting all night. Patient states that he feels that it may be due to the ascites that he has in his abdomen due to his liver failure. Patient's also complaining of edema and swelling, along with shortness of breath that he feels is due to his congestive heart failure. Patient has a past medical history that includes coronary artery disease, chest pain along with 2 stents placed in the heart, diabetes, alcoholism, illicit drug use history, hepatitis C, liver failure, congestive heart failure. Current medications include [place] 7.5/325 3 times a day, Lantus 30 units at bedtime, lisinopril 10 mg daily, carvedilol 12.5 mg twice a day, ergocalciferol 1250 g weekly. ROS: [No fever, chills, or rigors] [no cough, phlegm, or expectoration] [no nausea, vomiting, or diarrhea] [no hematuria, dysuria] [no musculoskelatal complaints] [no strokes or seizures] [no skin lesions] EXAMINATION: GENERAL: Well-appearing, well-nourished and in no acute distress. NECK: Supple without JVD or thyromegaly. LUNGS: Moderate crackles noted bilateral mid to lower lobes posteriorly. Respiration equal and unlabored. No wheezes, rales or rhonchi. HEART: Regular rate and rhythm without rubs or gallops. Systolic murmur noted. S1 and S2 heard. EXTREMITIES: Normal range of motion, 1+ pitting edema bilateral lower legs. No clubbing or cyanosis. Peripheral pulses intact and strong. REVIEW OF LABS, ECG & MEDICAL DATA: LABS: White count 5.5, hemoglobin 13.7, sodium 135, potassium 4.7, BUN 21, creatinine 0.93, magnesium 1.9, BNP 15,900, triglycerides 201, cholesterol 224, LDL 132.5, HDL 51.3. EKG: IMAGING: Echocardiogram completed 04/07/2021 demonstrates a normal left ventricular size, mild concentric left ventricular hypertrophy, severe global hypokinesis of the left ventricle, overall left ventricle systolic function is severely impaired with an ejection fraction of less than 20%, grade 1 diastolic dysfunction, aortic valve is trileaflet and moderately thickened, AOV is possibly bicuspid, mitral valve leaflets are mildly thickened, mild mitral regurgitation, mild tricuspid regurgitation, no pericardial effusion. VITALS: Temp 97.7, pulse 82, respirations 19, blood pressure 150/87, O2 saturation 97% on room air IMPRESSION/PLAN: 1. Congestive heart failure with EF less than 20%-increase Lasix to 20 mg by mouth twice a day. Repeat BNP tomorrow. 2. Atypical chest pain-continue Imdur. Further recommendations based on the patient's clinical course. Thank you for the consult and allowing us to participate in the care of this patient. Past Medical History Past Medical History: Coronary Artery Disease (CAD), Heart Failure, COPD, CVA/TIA, Diabetes Mellitus, Hyperlipidemia, Hypertension, Liver Disease, M yocardial Infarction (CT) Additional Past Medical History / Comment(s): Ischemic cardiomyopathy with EF of 7% per patient, PVCs, CVA 2018 with L sided weakness, chronic low back pain d/t vertebral fractures years ago as well as cervical pinched nerves, DDD, IDDM type II, neuropathy bilateral hands/legs and feet, hepatitis C Last Myocardial Infarction Date:: October 2018 History of Any Multi-Drug Resistant Organisms: MRSA Date of last positivie culture/infection: 11/23/20 MDRO Source:: FOOT MRSA Past Surgical History: Cholecystectomy, Heart Catheterization, Heart Catheterization With Stent, Tonsillectomy Additional Past Surgical History / Comment(s): R heel I&D, colonoscopy. Past Anesthesia/Blood Transfusion Reactions: No Reported Reaction Date of Last Stent Placement:: 2011 Past Psychological History: Anxiety, Bipolar, Depression Additional Psychological History / Comment(s): Pt resides with brother in a house. Patient is having trouble caring for himself since he is so weak and his brother is unable to care for him, so he is hoping to get admitted to [facility] with hospice on his case. He has a walker and a cane. He does not drive Smoking Status: Current some day smoker Past Alcohol Use History: None Reported Additional Past Alcohol Use History / Comment(s): Pt started smoking in 1976 and states he is down to 2 cigarettes a day. Past Drug Use History: Heroin, Marijuana Additional Drug Use History / Comment(s): Marijuana occasionally. pt stated he had ICE on 02/24/2020 - Past Family History Mother Family Medical History: Cancer Father Family Medical History: Coronary Artery Disease (CAD), Diabetes Mellitus, Hypertension Medications and Allergies Home Medications Medication Instructions Recorded Confirmed Type INSULIN LISPRO (humaLOG) [humaLOG] See Protocol SQ AC-TID MDD 30 units 03/28/21 04/06/21 History Lisinopril [Prinivil] 10 mg PO DAILY 03/28/21 04/06/21 History Carvedilol [Coreg] 12.5 mg PO BID 04/06/21 04/06/21 History Ergocalciferol (Vitamin D2) 1,250 mcg PO WEEKLY 04/06/21 04/06/21 History [Drisdol (50,000 Iu)] Insulin Glargine,Hum.rec.anlog 30 unit SQ HS 04/06/21 04/06/21 History [Lantus Solostar Pen] Allergies Allergy/AdvReac Type Severity Reaction Status Date / Time Penicillins Allergy Unknown Verified 04/06/21 10:46 Childhood metformin AdvReac Mild Nausea Verified 04/06/21 10:46 Physical Exam Vitals: Vital Signs Temp Pulse Pulse Resp BP BP Pulse Ox 04/07/21 12:13 97.7 F 82 19 150/87 97 04/07/21 10:35 70 132/69 04/07/21 08:30 70 20 04/07/21 04:30 97.6 F 67 20 124/75 95 04/06/21 22:30 18 04/06/21 21:50 97.6 F 69 20 142/88 97 04/06/21 21:02 76 18 138/72 97 Intake and Output 04/07/21 04/07/21 04/07/21 06:59 14:59 22:59 Intake Total 100 480 Balance 100 480 Intake: Oral 100 480 Other: Voiding Method Toilet Urinal # Voids 3 5 Results 04/07/21 07:47 04/07/21 07:47 Cardiac Enzymes 04/07/21 Range/Units 07:47 AST 70 H (17-59) U/L Lipids 04/07/21 Range/Units 07:47 Triglycerides 201.00 H (0.00-149.00) mg/dL Cholesterol 224.00 H (0.00-200.00) mg/dL HDL Cholesterol 51.30 (40.00-60.00) mg/dL Cholesterol/HDL Ratio 4.37 Ratio CBC 04/07/21 Range/Units 07:47 WBC 5.5 (3.8-10.6) k/uL RBC 4.33 (4.30-5.90) m/uL Hgb 13.7 (13.0-17.5) gm/dL Hct 42.8 (39.0-53.0) % Plt Count 172 (150-450) k/uL Comprehensive Metabolic Panel 04/07/21 Range/Units 07:47 Sodium 135 L (137-145) mmol/L Potassium 4.7 (3.5-5.1) mmol/L Chloride 107 (98-107) mmol/L Carbon Dioxide 25 (22-30) mmol/L BUN 21 H (9-20) mg/dL Creatinine 0.93 (0.66-1.25) mg/dL Glucose 119 H (74-99) mg/dL Calcium 8.5 (8.4-10.2) mg/dL Unconjugated Bilirubin 0.4 (0.0-1.1) mg/dL AST 70 H (17-59) U/L ALT 39 (4-49) U/L Alkaline Phosphatase 135 H (38-126) U/L Total Protein 6.0 L (6.3-8.2) g/dL Albumin 2.8 L (3.5-5.0) g/dL Current Medications Generic Name Dose Route Start Last Admin Trade Name Freq PRN Reason Stop Dose Admin Furosemide 20 mg 04/07/21 09:00 04/07/21 10:31 Furosemide 20 Mg Tab PO 20 mg DAILY MIRLANDE Administration Hydromorphone HCl 0.5 mg 04/06/21 12:45 04/06/21 18:36 Hydromorphone 0.5 Mg/0.5 Ml Syringe IVP 0.5 mg Q3HR PRN Administration Moderate Pain Hydromorphone HCl 1 mg 04/06/21 12:45 04/07/21 15:10 Hydromorphone 1 Mg/Ml 1 Ml Syringe IVP 1 mg Q3HR PRN Administration Severe Pain Insulin Aspart 2 - 12 unit 04/06/21 17:30 04/07/21 17:14 Insulin Aspart (Novolog) 100 Unit/Ml Vial SQ Not Given ACHS MIRLANDE Protocol Isosorbide Mononitrate 30 mg 04/06/21 17:30 04/07/21 10:31 Isosorbide Mononitrate Er 30 Mg Tab.Er.24h PO 30 mg DAILY MIRLANDE Administration Naloxone HCl 0.2 mg 04/06/21 12:45 Naloxone 0.4 Mg/Ml 1 Ml Vial IV Q2M PRN Opioid Reversal Nicotine 1 patch 04/07/21 10:15 04/07/21 10:31 Nicotine 14mg/24hr Patch TRANSDERM 1 patch DAILY MIRLANDE Administration Nitroglycerin 0.4 mg 04/06/21 17:05 Nitroglycerin Sl Tabs 0.4 Mg Tab SUBLINGUAL Q5M PRN Chest Pain Ondansetron HCl 4 mg 04/06/21 12:45 Ondansetron 4 Mg/2 Ml Vial IVP Q8HR PRN Nausea And Vomiting Spironolactone 50 mg 04/07/21 09:00 04/07/21 10:31 Spironolactone 25 Mg Tab PO 50 mg DAILY MIRLANDE Administration Intake and Output 04/07/21 04/07/21 04/07/21 06:59 14:59 22:59 Intake Total 100 480 Balance 100 480 Intake: Oral 100 480 Other: Voiding Method Toilet Urinal # Voids 3 5 04/07/21 07:47 04/07/21 07:47
[2021-04-07 20:43] LABS: Glucose,Whole Blood 153 mg/dL (75-99)
[2021-04-08] MEDS: HYDROmorphone 1 MG/ML 1 ML SYRINGE IVP PRN ×7 (00:49→22:29)
[2021-04-08 07:12] LABS: Glucose,Whole Blood 152 mg/dL (75-99)
[2021-04-08] MEDS: SPIRONOLACTONE 25 MG TAB PO SCH (08:17)
[2021-04-08] MEDS: INSULIN ASPART (NovoLOG) 100 UNIT/ML VIAL SQ SCH ×4 (08:17→20:22)
[2021-04-08] MEDS: ISOSORBIDE MONONITRATE ER 30 MG TAB.ER.24H PO SCH (08:17)
[2021-04-08] MEDS: NICOTINE 14MG/24HR PATCH TRANSDERM SCH (08:18)
[2021-04-08] MEDS ORDERED: FUROSEMIDE 20 MG TAB PO SCH (09:00)
[2021-04-08 12:21] LABS: Glucose,Whole Blood 198 mg/dL (75-99)
--- NOTE | 2021-04-08 14:21 | P.PN ---
Subjective Progress Note Date: 04/08/21 Principal diagnosis: Abdominal ascites, hepatitis C, liver failure This is Tong joseph NP, dictating a progress note on behalf of Dr. Catehrine. Patient was interviewed and examined. Patient is a pleasant 61-year-old male who initially presented to the hospital for abdominal ascites, hepatitis C, and liver failure. Cardiology was consult to do the patient complaining of chest pain and congestive heart failure symptoms. Patient reports chest pain that has been consistently coming and going, however increasing in duration and intensity, at times lasting all night. Patient states that he feels that it may be due to the ascites that he has in his abdomen due to his liver failure. Patient's also complaining of edema and swelling, along with shortness of breath that he feels is due to his congestive heart failure. Patient has a past medical history that includes coronary artery disease, chest pain along with 2 stents placed in the heart, diabetes, alcoholism, illicit drug use history, hepatitis C, liver failure, congestive heart failure. Current medications include [place] 7.5/325 3 times a day, Lantus 30 units at bedtime, lisinopril 10 mg daily, carvedilol 12.5 mg twice a day, ergocalciferol 1250 g weekly. 04/08/2021: Patient reports mild improvement in symptoms today. Patient's BNP is worse today at 18,100. Echocardiogram of his heart did demonstrate a EF less than 20%. We discussed this with the patient patient did agree to start medications and treatment for both his heart failure and low EF. GENERAL: Well-appearing, well-nourished and in no acute distress. NECK: Supple without JVD or thyromegaly. LUNGS: Breath sounds clear to auscultation bilaterally. Respiration equal and unlabored. No wheezes, rales or rhonchi. HEART: Regular rate and rhythm without murmurs, rubs or gallops. S1 and S2 heard. EXTREMITIES: Normal range of motion, mild 1+ pitting edema bilateral lower legs. No clubbing or cyanosis. Peripheral pulses intact and strong. VITALS: [Temp 97.7, pulse 91, respirations 17, blood pressure 159/100, O2 saturation 96% on room air] TELEMETRY: [Normal sinus rhythm] LABS: [White count 5.5, hemoglobin 13.7, PT 10.9, INR 1.0, APTT 25.5, sodium 135, potassium 4.7, BUN 21, creatinine 0.93, calcium 8.5, BNP 18,100, triglycerides 201, cholesterol 224, LDL 132.5, HDL 51.3] IMPRESSION/PLAN: 1. Acute on chronic congestive heart failure, ejection fraction less than 20%- begin carvedilol 12.5 mg twice a day. Recommend maximizing carvedilol 25 mg twice a day if necessary. Start Lasix by mouth 40 mg daily. Continue spironolactone. 2. Hypertension-treatment as above 3. Hyperlipidemia-recommend statin therapy, however will defer to GI due to liver failure. Thank you for allowing us to participate in the care of this patient. Objective - Vital Signs Vital signs: Vital Signs Temp 97.7 F 04/08/21 12:44 Pulse 91 04/08/21 12:44 Resp 17 04/08/21 12:44 BP 166/110 04/08/21 12:44 Pulse Ox 96 04/08/21 12:44 Intake & Output 04/07/21 04/08/21 04/08/21 18:59 06:59 18:59 Intake Total 1060 Balance 1060 Intake: Oral 1060 Other: Voiding Method Toilet Toilet Toilet Urinal Urinal Urinal # Voids 3 - Labs CBC & Chem 7: 04/07/21 07:47 04/07/21 07:47 Labs: Abnormal Lab Results - Last 24 Hours (Table) 04/07/21 04/07/21 04/07/21 Range/Units 17:05 17:39 20:16 POC Glucose (mg/dL) 70 L 111 H 153 H (75-99) mg/dL 04/08/21 04/08/21 Range/Units 07:10 12:20 POC Glucose (mg/dL) 152 H 198 H (75-99) mg/dL
[2021-04-08] MEDS ORDERED: ENALAPRILAT 1.25 MG/ML 1 ML VIAL IVP PRN (15:51)
[2021-04-08] MEDS: hydrALAZINE HCL 50 MG TAB PO SCH (16:01)
[2021-04-08] MEDS: carvediloL 12.5 MG TAB PO SCH (16:01)
--- NOTE | 2021-04-08 16:09 | P.PN ---
Subjective Progress Note Date: 04/09/21 (Ejection fraction less than 20%) Progress note date of service 04/08/[address] Turcios. Patient seen and examined [id number] and discussed with with him his CODE STATUS with the ejection fraction less than 20 patient agreed for no CPR no resuscitation. His blood pressure at the time of exam checked again and 178/118 with the underlying hypertensive heart disease, patient not having any IV fluid. Discussed with the patient also if his heart stop or lungs stop requested no CPR as mentioned above but also we discussed will be calling for him as he is alone stated that his brother in [place] phone number [phone] and the [facility] the [facility] emergency infratrochlear. Dr. Catherine industrial organizational psychologist did see the patient today with his PA and the continued with carvedilol and increase his Lasix. However his blood pressure is 178/118 and need of action will be started him on amlodipine 2.5 mg twice a day, also hydralazine 25 mg twice a day with the parameter if the blood pressure controlled. We did stop the lisinopril to avoid hyperkalemia with the currently he is on Aldactone. On exam: Patient is conscious alert oriented appeared to understand the current illness and disease with the echocardiogram indicating less than 20% of ejection fraction and the heart could be stopped for any reason. He had significant ascites and supposedly tomorrow to be followed by the GI and also had paracentesis, tomorrow we'll also obtain PT and INR and PTT as well as BMP as well as CBC with differential. Physical exam: The head was normocephalic and atraumatic, pupil was equal reactive, oropharynx he had no case except 12 with with decreased albumin with the protein calorie deficiency. Diabetes mellitus is under control with only CBG to scale. Neck was supple no JVD no thyromegaly no lymphadenopathy. Trachea midline. Chest normal breath sound no wheezes nor rhonchi's He had a presacral edema with abdominal ascitis and hepatosplenomegaly of the abdomen positive bowel sounds. Extremities pulses decreased with peripheral vascular disease and no edema. Assessment: #1 hepatitis C #2 hepatocellular liver disease #3 alcoholic hepatitis. #4 abdominal ascites #5 hypertension with hypertensive heart disease #6 ischemic cardiomyopathy global with the ejection fracture less than 20 with the tricuspid regurg and valvular heart disease. History of noncompliance. Plan: #1 will start with the hypertension become accelerated on medication with the hope that he doesn't have hyperkalemia and we will repeat the BMP tomorrow Hydralazine 25 mg twice a day with parameter, amlodipine 2.5 mg twice a day with parameter. Vasotec 1.25 mg IV push every 6 hour when necessary for blood pressure above 140 systolic. Tomorrow expected the labs paracentesis and drainage of the fluid and the laboratories. Objective - Vital Signs Vital signs: Vital Signs Temp 97.7 F 04/08/21 12:44 Pulse 91 04/08/21 12:44 Resp 17 04/08/21 12:44 BP 166/110 04/08/21 12:44 Pulse Ox 96 04/08/21 12:44 Intake & Output 04/07/21 04/08/21 04/08/21 18:59 06:59 18:59 Intake Total 1060 Balance 1060 Intake: Oral 1060 Other: Voiding Method Toilet Toilet Toilet Urinal Urinal Urinal # Voids 3 - Labs CBC & Chem 7: 04/07/21 07:47 04/07/21 07:47 Labs: Abnormal Lab Results - Last 24 Hours (Table) 04/07/21 04/07/21 04/07/21 Range/Units 17:05 17:39 20:16 POC Glucose (mg/dL) 70 L 111 H 153 H (75-99) mg/dL 04/08/21 04/08/21 Range/Units 07:10 12:20 POC Glucose (mg/dL) 152 H 198 H (75-99) mg/dL
[2021-04-08 17:22] LABS: Glucose,Whole Blood 92 mg/dL (75-99)
[2021-04-08 20:20] LABS: Glucose,Whole Blood 168 mg/dL (75-99)
[2021-04-08] MEDS: amLODIPine 2.5 MG TAB PO SCH (20:22)
[2021-04-09] MEDS: HYDROmorphone 1 MG/ML 1 ML SYRINGE IVP PRN ×8 (01:47→23:20)
[2021-04-09 06:23] LABS: Basophils % (A) 1 %; Eosinophils # (A) 0.2 k/uL (0-0.7); Eosinophils % (A) 3 %; HCT 37.9 % (39.0-53.0); HGB 12.3 gm/dL (13.0-17.5); Lymphocytes # (A) 1.6 k/uL (1.0-4.8); Lymphocytes % (A) 35 %; MCHC 32.3 g/dL (31.0-37.0); Mean Platelet Volume 8.9; Monocytes # (A) 0.3 k/uL (0-1.0); Monocytes % (A) 6 %; Neutrophils # (A) 2.5 k/uL (1.3-7.7); Neutrophils % (A) 53 %; Platelet Count 129 k/uL (150-450); RBC 3.83 m/uL (4.30-5.90); RDW 13.5 % (11.5-15.5); WBC 4.7 k/uL (3.8-10.6)
[2021-04-09 06:30] LABS: African American GFR (CKD) >90 (>60 ml/min/1.73 sqM); Anion Gap 4 mmol/L; Blood Urea Nitrogen 25 mg/dL (9-20); Calcium 8.3 mg/dL (8.4-10.2); Carbon Dioxide 23 mmol/L (22-30); Chloride 106 mmol/L (98-107); Glucose 146 mg/dL (74-99); Non-African American GFR(CKD) 81 (>60 ml/min/1.73 sqM); Potassium 4.8 mmol/L (3.5-5.1); Sodium 133 mmol/L (137-145)
[2021-04-09 06:35] LABS: Partial Thromboplastin Time 27.5 sec (22.0-30.0); Prothrombin Time 11.1 sec (9.0-12.0)
[2021-04-09] MEDS: hydrALAZINE HCL 50 MG TAB PO SCH (07:43)
[2021-04-09] MEDS: NICOTINE 14MG/24HR PATCH TRANSDERM SCH (07:43)
[2021-04-09] MEDS: ISOSORBIDE MONONITRATE ER 30 MG TAB.ER.24H PO SCH (07:44)
[2021-04-09] MEDS: SPIRONOLACTONE 25 MG TAB PO SCH (07:44)
[2021-04-09] MEDS: carvediloL 12.5 MG TAB PO SCH ×2 (07:44→17:45)
[2021-04-09] MEDS: FUROSEMIDE 40 MG TAB PO SCH (07:44)
[2021-04-09] MEDS: amLODIPine 2.5 MG TAB PO SCH (07:44)
[2021-04-09 07:45] LABS: Glucose,Whole Blood 141 mg/dL (75-99)
[2021-04-09] MEDS: INSULIN ASPART (NovoLOG) 100 UNIT/ML VIAL SQ SCH ×4 (07:52→20:13)
[2021-04-09] MEDS: LOSARTAN 25 MG TAB PO SCH (10:57)
--- NOTE | 2021-04-09 11:26 | P.PN ---
Subjective Patient is a pleasant 61-year-old male past medical history of coronary artery disease s/p PCI RCA, ischemic cardiomyopathy, chronic systolic heart failure, type 2 diabetes, history of alcoholism (last drink 10 years ago), illicit drug use history, hepatitis C, liver failure. He did see Dr. Soni last once in the office in 2016, does not currently follow with a house worker general. Patient initially presented to the hospital for abdominal ascites, hepatitis C, and liver failure. Cardiology was consult to do the patient complaining of chest pain and congestive heart failure symptoms. Echocardiogram did demonstrate a EF less than 20%, severe global hypokinesis of LV, aortic valve is trileaflet and moderately thickened, mild mitral regurgitation, mild tricuspid regurgitation (compared to echocardiogram in December 2020 40-45%) 04/09/2021: Patient seen and examined at bedside. Patient reports mild improvement in symptoms today. Blood pressure 144/84, heart rate 80, afebrile, maintaining saturations on room air. He's currently maintained on carvedilol 12.5 mg twice a day, by mouth Lasix 40 mg daily, hydralazine 25 mg twice a day, Imdur 30 mg daily, spironolactone 50 mg daily. Telemetry reviewed patient maintaining sinus mechanism heart rate 70s and 90s. GENERAL: In no acute distress. NECK: Supple without JVD or thyromegaly. LUNGS: Breath sounds clear to auscultation bilaterally. Respiration equal and unlabored. No wheezes, rales or rhonchi. HEART: Regular rate and rhythm without murmurs, rubs or gallops. S1 and S2 heard. ABDOMEN: Ascities EXTREMITIES: Normal range of motion, mild 1+ pitting edema bilateral lower legs. No clubbing or cyanosis. Peripheral pulses intact and strong. ASSESSMENT: Acute on chronic systolic heart failure, ejection fraction less than 20% History of coronary artery disease s/p PCI to RCA History of ischemic cardiomyopathy Type 2 diabetes History of alcoholism History of illicit drug use Dyslipidemia Hepatitis C Hepatocellular liver disease Abdominal ascites PLAN: -We will start losartan 25mg daily -Increase hydralazine to 25 mg TID -Continue Coreg, Lasix, spironolactone -Continue cardiac telemetry -Recommend statin therapy, however will defer to GI due to liver failure. -From a cardiology perspective, we will continue medical treatment at this time. Discharge per GI and primary. Recommend follow up with Dr. Catherine in 2 weeks. -Further recommendations based on clinical course Thank you for allowing us to participate in the care of this patient. Objective - Vital Signs Vital signs: Vital Signs Temp 97.4 F L 04/09/21 05:00 Pulse 80 04/09/21 05:00 Resp 16 04/09/21 05:00 BP 144/84 04/09/21 05:00 Pulse Ox 97 04/09/21 05:00 Intake & Output 04/08/21 04/09/21 04/09/21 18:59 06:59 18:59 Intake Total 240 Balance 240 Intake: Oral 240 Other: Voiding Method Toilet Toilet Urinal Urinal # Voids 3 3 # Bowel Movements 0 - Labs CBC & Chem 7: 04/09/21 06:03 04/09/21 06:03 Labs: Abnormal Lab Results - Last 24 Hours (Table) 04/08/21 04/08/21 04/09/21 Range/Units 12:20 20:19 06:03 RBC 3.83 L (4.30-5.90) m/uL Hgb 12.3 L (13.0-17.5) gm/dL Hct 37.9 L (39.0-53.0) % Plt Count 129 L (150-450) k/uL Sodium (137-145) mmol/L BUN (9-20) mg/dL Glucose (74-99) mg/dL POC Glucose (mg/dL) 198 H 168 H (75-99) mg/dL Calcium (8.4-10.2) mg/dL 04/09/21 04/09/21 Range/Units 06:03 07:43 RBC (4.30-5.90) m/uL Hgb (13.0-17.5) gm/dL Hct (39.0-53.0) % Plt Count (150-450) k/uL Sodium 133 L (137-145) mmol/L BUN 25 H (9-20) mg/dL Glucose 146 H (74-99) mg/dL POC Glucose (mg/dL) 141 H (75-99) mg/dL Calcium 8.3 L (8.4-10.2) mg/dL
[2021-04-09 12:14] LABS: Glucose,Whole Blood 142 mg/dL (75-99)
--- NOTE | 2021-04-09 13:45 | P.PN ---
Subjective Progress Note Date: 04/09/21 Principal diagnosis: Ascites Is a 61-year-old male for new onset ascites. He has multiple comorbidities and has not been following with any PCP for some time. Has a history of hepatitis C, believes he was treated for it diagnosed approximately 10 years ago. On admission LFTs were normal. Denied any previous history of ascites or paracentesis. He complained of increased abdominal distention over the last 1-2 weeks duration. He denies any nausea, vomiting, or hematemesis. Patient is scheduled for paracentesis. Hepatitis C RNA and genotype ordered, currently pending. Objective - Vital Signs Vital signs: Vital Signs Temp 97.4 F L 04/09/21 05:00 Pulse 80 04/09/21 05:00 Resp 16 04/09/21 05:00 BP 144/84 04/09/21 05:00 Pulse Ox 97 04/09/21 05:00 Intake & Output 04/08/21 04/09/21 04/09/21 18:59 06:59 18:59 Intake Total 240 Balance 240 Intake: Oral 240 Other: Voiding Method Toilet Toilet Urinal Urinal # Voids 3 3 # Bowel Movements 0 - Exam General appearance: The patient is alert, oriented, appears in no acute distress. HET: Head is normocephalic and atraumatic. Conjunctiva pink. Sclera anicteric. Neck: Supple without lymphadenopathy. Abdomen: Soft, diffuse tenderness, mild distention with bowel sounds. No guarding or rigidity. Extremities: Normal skin color and turgor. No pedal edema Skin: No rashes, no jaundice Neurological: No focal deficits. Alert and oriented 3. - Labs CBC & Chem 7: 04/09/21 06:03 04/09/21 06:03 Labs: Abnormal Lab Results - Last 24 Hours (Table) 04/08/21 04/08/21 04/09/21 Range/Units 12:20 20:19 06:03 RBC 3.83 L (4.30-5.90) m/uL Hgb 12.3 L (13.0-17.5) gm/dL Hct 37.9 L (39.0-53.0) % Plt Count 129 L (150-450) k/uL Sodium (137-145) mmol/L BUN (9-20) mg/dL Glucose (74-99) mg/dL POC Glucose (mg/dL) 198 H 168 H (75-99) mg/dL Calcium (8.4-10.2) mg/dL 04/09/21 04/09/21 Range/Units 06:03 07:43 RBC (4.30-5.90) m/uL Hgb (13.0-17.5) gm/dL Hct (39.0-53.0) % Plt Count (150-450) k/uL Sodium 133 L (137-145) mmol/L BUN 25 H (9-20) mg/dL Glucose 146 H (74-99) mg/dL POC Glucose (mg/dL) 141 H (75-99) mg/dL Calcium 8.3 L (8.4-10.2) mg/dL Assessment and Plan (1) Abdominal ascites Narrative/Plan: 61-year-old with multiple comorbidities who was presenting to the hospital this morning with complaints of abdominal pain which she states were sharp associated with nausea and vomiting. Pain and distention began two weeks ago, nausea and vomiting ten days ago. He was recently seen in the emergency department and had CT of the abdomen and pelvis showing ascites. He had a hepatitis panel which sh owed a positive hepatitis C antibody. He was diagnosed with hepatitis C 10 years ago and treated by Dr. Burciaga. Likely dealing with decompensated cirrhosis of the liver with ascites from underlying chronic hepatitis C infection and history of alcohol abuse . Will order liver ultrasound and parace ntesis for fluid studies. Current Visit: Yes Status: Acute Code(s): R18.8 - OTHER ASCITES SNOMED Code(s): 891238007 (2) Hepatitis C antibody test positive Narrative/Plan: Patient has history of hepatitis C with treatment Current Visit: Yes Status: Acute Code(s): R76.8 - OTHER SPECIFIED ABNORMAL IMMUNOLOGICAL FINDINGS IN SERUM SNOMED Code(s): 002421843 (3) Abdominal pain Current Visit: Yes Status: Acute Code(s): R10.9 - UNSPECIFIED ABDOMINAL PAIN SNOMED Code(s): 05490431 Plan: 1. Symptomatic and supportive care 2. IR consulted for paracentesis with fluid studies 3. Continue Lasix 20 mg QD and Aldactone 50mg QD 4. Hep C RNA and genotype ordered 5. Patient will need outpatient follow up with GI 6. Patient stable for discharge from gastroenterology standpoint after paracentesis Dr. Te Zaidi I agree with the dictator's note, documented as a scribe by Ce Duran.
[2021-04-09 14:29] LABS: HCV Qualitative Result Not detected (Not detected); HCV Quant Log <1.08 (<1.08); HCV Quantitative Result <12 IU/mL (<12)
--- NOTE | 2021-04-09 15:02 | US ---
Ultrasound-guided paracentesis. DATE OF EXAM: 04/09/2021 CLINICAL HISTORY: Ascites The procedure was discussed with the patient. The risks, complications, benefits, and alternatives we re discussed and any questions were answered. Informed consent was obtained. The patient was placed s upine on the ultrasound table and prepped and draped in the usual sterile fashion. All elements of maximal barrier technique were utilized. Under ultrasound guidance, access into the right lower quadrant was obtained, via the paracentesis catheter system and direct ultrasound guidanc e. Approximately 1 liters of straw-colored fluid was removed. The patient was stable throughout the proc edure and remained stable upon discharge from Department of Radiology. IMPRESSION: Successful paracentesis under ultrasound guidance.
[2021-04-09 15:16] VITALS: BMI 22.9
[2021-04-09] MEDS: hydrALAZINE HCL 25 MG TAB PO SCH ×2 (17:00→21:10)
[2021-04-09 17:29] LABS: Glucose,Whole Blood 147 mg/dL (75-99)
[2021-04-09 19:03] LABS: Appearance,BF Hazy; Color,BF Yellow; Nucleated Cells, Body Fluid 374 /uL; RBC, Body Fluid 67 /uL
[2021-04-09 19:12] LABS: Mononuclear WBC,Body Fluid 100 %; Total Cells Counted,Body Fluid 100
[2021-04-09 20:09] LABS: Glucose,Whole Blood 150 mg/dL (75-99)
--- NOTE | 2021-04-09 22:18 | PN ---
PROGRESS NOTE DATE OF SERVICE: 04/09/2021 The patient is conscious, alert, oriented, appearing comfortable after aspiration with paracentesis in the right lower quadrant by the radiologist today on 04/09/2021. Laboratory per order of GI Dr. Emerita Zaidi. Patient feels that he lost weight from the aspiration. The amount taken out is not yet known; however, it went to the laboratory. Patient on 03/26/2021 had a hepatitis profile, acute. He had nonreactive hepatitis A and nonreactive hepatitis B core IgM and nonreactive hepatitis B surface antigen and reactive hepatitis C IgE antibodies. The alpha-fetoprotein was 3. We did request PCR qualitative and quantitative with the underlying liver disease from proper hepatitis C with the hepatosplenomegaly and history of alcoholic liver disease added to him. Otherwise, the patient is on supportive medication. He had a chest x-ray on 04/06/2021, with the atelectasis and pulmonary venous hypertension that could be also associated with portal hypertension. He has a history of coronary artery disease, atherosclerotic heart disease with two stents placed by Dr. Soni and also he had history of CT scan of the abdomen and pelvis and ultrasound of the abdomen and history of cholecystectomy and right pleural effusion. The patient was seen by Cardiology with the underlying history of less than 20% ejection fraction. He had large abdominal girth. He has a history of hyperlipidemia with triglycerides of 201 and total cholesterol 224, and the ratio is 4.7. He had mild hyponatremia with sodium 135 with the normal 137. He had a BUN of 21 and creatinine 0.93 on 04/07. He had AST 70, ALT 39, alkaline phosphatase 135. He had nutritional deficiency with low albumin and low prealbumin as well with consultation with the scientific informatics analyst. His echocardiogram indicates that left ventricular size is normal with mild concentric left ventricular hypertrophy, severe global hypokinesia with severely impaired left ventricular function with ejection fraction less than 20% per the echocardiogram with grade 1 diastolic dysfunction. He has also a biscuspid aortic valve and mild mitral regurgitation and mild tricuspid regurgitation. However, the right ventricular systolic pressure was normal, less than 35. He was seen and evaluated by Dr. Catherine, the marionette performer. The abdominal pain from the distention they adjusted Cardiology his medication. Today he was seen by Dr. Rachael Curran, who advised that he follow up with Dr. Catherine. Today's laboratory showed normal pro time and INR. On physical examination, the patient patient is conscious, alert, oriented, feeling more comfortable after the paracentesis. Head was normocephalic, atraumatic. He had only one tooth in his oropharynx. Neck was supple. No JVD. No thyromegaly. No lymphadenopathy. Chest was aerated and the breath sounds were normal; however, he had decreased air entry in the lower with the underlying presacral edema from the ascites. The abdomen has an enlarged liver and spleen with the ascitic fluid which was seen before and after the drainage, which much improved the abdominal distention and abdominal girth. Extremities: He has peripheral vascular disease and he had onychomycosis and tinea pedis in between the toes, fungal infection. ASSESSMENT: Tomorrow the patient will be seen by Gastroenterology. If he is in stable general condition, probable discharge home to be followed by Dr. Zaidi as outpatient as well as followed by Dr. Catherine from Cardiology for his severe cardiomyopathy. MMODL / IJN: [id number] /
[2021-04-10] MEDS: HYDROmorphone 1 MG/ML 1 ML SYRINGE IVP PRN ×4 (02:32→12:03)
[2021-04-10 07:10] VITALS: RESP 18
[2021-04-10] MEDS: FUROSEMIDE 40 MG TAB PO SCH (07:10)
[2021-04-10] MEDS: carvediloL 12.5 MG TAB PO SCH (07:10)
[2021-04-10] MEDS: hydrALAZINE HCL 25 MG TAB PO SCH (07:10)
[2021-04-10] MEDS: ISOSORBIDE MONONITRATE ER 30 MG TAB.ER.24H PO SCH (07:10)
[2021-04-10] MEDS: LOSARTAN 25 MG TAB PO SCH (07:10)
[2021-04-10] MEDS: NICOTINE 14MG/24HR PATCH TRANSDERM SCH (07:10)
[2021-04-10] MEDS: SPIRONOLACTONE 25 MG TAB PO SCH (07:11)
[2021-04-10 07:18] LABS: Glucose,Whole Blood 175 mg/dL (75-99)
[2021-04-10] MEDS: INSULIN ASPART (NovoLOG) 100 UNIT/ML VIAL SQ SCH ×2 (08:20→12:47)
[2021-04-10 08:47] LABS: LDH, Body Fluid Source Paracentesis Fluid; Total Protein, Body Fluid 1250 mg/dL
[2021-04-10] MEDS ORDERED: LOSARTAN 25 MG TAB PO STA (08:56)
[2021-04-10 10:03] LABS: Albumin, Fluid Source Paracentesis Fluid
--- NOTE | 2021-04-10 11:32 | P.PN ---
Subjective Patient is a pleasant 61-year-old male past medical history of coronary artery disease s/p PCI RCA, ischemic cardiomyopathy, chronic systolic heart failure, type 2 diabetes, history of alcoholism (last drink 10 years ago), illicit drug use history, hepatitis C, liver failure. He did see Dr. Soni last once in the office in 2015, does not currently follow with a plasma specialist. Patient initially presented to the hospital for abdominal ascites, hepatitis C, and liver failure. Cardiology was consult to do the patient complaining of chest pain and congestive heart failure symptoms. Echocardiogram did demonstrate a EF less than 20%, severe global hypokinesis of LV, aortic valve is trileaflet and moderately thickened, mild mitral regurgitation, mild tricuspid regurgitation (compared to echocardiogram in December 2020 40-45%) 04/10/21 Patient seen and examined at bedside. Patient reports mild improvement in symptoms today. He underwent paracentesis yesterday with 1L removed. Blood pressure 155/95, heart rate 80, afebrile, maintaining saturations on room air. He's currently maintained on carvedilol 12.5 mg twice a day, by mouth Lasix 40 mg daily, hydralazine 25 mg TID, Imdur 30 mg daily, spironolactone 50 mg daily, losartan 25mg daily. Telemetry reviewed patient maintaining sinus mechanism heart rate 70s and 80s, occasional PVCs. GENERAL: In no acute distress. NECK: Supple without JVD or thyromegaly. LUNGS: Breath sounds clear to auscultation bilaterally. Respiration equal and unlabored. No wheezes, rales or rhonchi. HEART: Regular rate and rhythm without murmurs, rubs or gallops. S1 and S2 heard. ABDOMEN: Ascites EXTREMITIES: Normal range of motion, mild 1+ pitting edema bilateral lower legs. No clubbing or cyanosis. Peripheral pulses intact and strong. ASSESSMENT: Acute on chronic systolic heart failure, ejection fraction less than 20% History of coronary artery disease s/p PCI to RCA History of ischemic cardiomyopathy Type 2 diabetes History of alcoholism History of illicit drug use Dyslipidemia Hepatitis C Hepatocellular liver disease Abdominal ascites PLAN: -We will increase losartan 50mg daily -Continue hydralazine to 25 mg TID -Continue Coreg, Lasix, spironolactone -Recommend statin therapy, however will defer to GI due to liver failure. -From a cardiology perspective, we will continue medical treatment at this time. Discharge per GI and primary. -Recommend follow up with Dr. Catherine in 2 weeks. -We will sign off at this time, please reach out with further questions or concerns. Thank you for allowing us to participate in the care of this patient. Objective - Vital Signs Vital signs: Vital Signs Temp 97.9 F 04/10/21 07:09 Pulse 80 04/10/21 07:09 Resp 18 04/10/21 07:09 BP 155/95 04/10/21 07:09 Pulse Ox 91 L 04/10/21 07:09 Intake & Output 04/09/21 04/10/21 04/10/21 18:59 06:59 18:59 Intake Total 240 480 480 Output Total 1060 Balance -820 480 480 Weight 72.575 kg 72.4 kg Intake: Oral 240 480 480 Output: Other 1060 Other: # Voids 2 1 # Bowel Movements 1 - Labs CBC & Chem 7: 04/09/21 06:03 04/09/21 06:03 Labs: Abnormal Lab Results - Last 24 Hours (Table) 04/09/21 04/09/21 04/09/21 Range/Units 12:12 17:28 20:07 POC Glucose (mg/dL) 142 H 147 H 150 H (75-99) mg/dL 04/10/21 Range/Units 07:16 POC Glucose (mg/dL) 175 H (75-99) mg/dL Microbiology - Last 24 Hours (Table) 04/09/21 12:50 Gram Stain - Preliminary Ascites Fluid Body Fluid Culture - Preliminary 04/09/21 12:50 Anaerobic Culture - Preliminary Ascites Fluid
[2021-04-10] MEDS ORDERED: INFLUENZA VACC (6 MOS-64 YRS) 60 MCG/0.5 ML SYRINGE IM ONE (12:14)
[2021-04-10 12:32] LABS: Glucose,Whole Blood 134 mg/dL (75-99)
--- NOTE | 2021-04-10 12:52 | P.DS ---
Providers Date of admission: 04/06/21 12:50 Expected date of discharge: 04/10/21 Attending physician: John Zaman Consults: 04/06/21 12:46 Consult Physician Urgent Consulting Provider: Emerita Zaidi Consult Reason/Comments: Ascites Do you want consulting provider notified?: Yes 04/06/21 17:08 Consult Physician Routine Consulting Provider: Matthew Soni Consult Reason/Comments: Chest pain, history of 2 stent placement, cardiac Them [place] Do you want consulting provider notified?: Yes, Notify in am Primary care physician: John Zaman Dictation for discharge summary Date of service 04/10/[address] Turcios. Final diagnosis: #1 ascites secondary to decompensation of his liver disease. #2 hepatitis C nontreated with a history that patient had treatment from Dr. Burciaga and positive hepatitis C results of the PCR and quantitative qualitative not available and on discharge #3 severe ischemic cardiomyopathy with ejection fraction less than 20% seen by associate designer in the hospital by Dr. Catherine and Dr. BARBARA Curran and he will be followed by Dr. Catherine. #4 alcoholic liver disease with a history of alcoholism. #5 history of drug use however he stated that he stopped it 2 years ago it #6 peripheral vascular disease of the lower extremities. #7 congestive heart failure biventricular systolic and diastolic acute on the top of chronic with the underlying ejection fraction less than 20% #8 chronic pain syndrome and need to be checked his insurance for the pain clinic as our office will not give chronic pain medication he has previous appointment with Dr. Gross however he wants to have different physician advised to find from his insurance will accept from the point of pain clinic. #9 future plan to see vascular surgeon for the peripheral vascular disease #10 Hypertension with hypertensive cardiovascular disease currently controlled with adjustment by cardiology. Consulting physician: #[address] Dr. Osvaldo Pham gastroenterology #2 Dr. Catherine/Dr. BARBARA Curran during the hospital. Presentation and to the emergency room: Abdominal distention generalized weakness, liver failure, shortness of breath elevated pro-BMP edema of the lower extremities. Hospital course: Patient seen by gastroenterology GI and the GI team. Patient also seen by the cardiology Dr. BARBARA Curran and Dr. Catherine and he will be followed by Dr. Catherine as outpatient. Patient had a echocardiogram, found that he had ejection fraction less than 20% as well as valvular heart disease. He had ultrasound of the abdomen with the presence of hepatosplenomegaly and ascites. Indication adjusted, paracentesis could not be done until 04/09/2021 by invasive radiology. Full result not available yet. Patient is comfortable and complaining of the abdominal distention still present and the pain in the lower extremities and he requesting pain medication and we'll start him as outpatient for less than 3 days on tramadol as his renal function is stable. Cardiology as well as gastroenterology cleared for discharge they will be following him as outpatient. I will see the patient on Friday this week. Patient vital signs stable no evidence of bleeding. [id number] examination: Conscious alert oriented 3 Head normocephalic and atraumatic, pupil equal reactive no infection, hearing stable Oropharynx only one T in the lower jaw left side and he had no teeth and he doesn't like dentures. Neck was supple no JVD no thyromegaly no lymphadenopathy trachea midline Chest was he has decreased air entry on the basis with the still ostitis present however the lung herniated was normal breath sounds The abdomen still protuberant still ascites present however not distended and he had significant relief after the paracentesis, also he had a presacral edema. Lower extremities has been improved of the edema with the history of congestive heart failure chronic systolic and diastolic Patient ambulatory with a cane. Assessment and plan: Patient stable for discharge home today and follow up with cardiology, gastroenterology, Dr. Turcios, Patient had appointment on Friday in my office. Reviewed medication and prescription given by cardiology, Ultram 50 mg every 6 hours when necessary for pain for less than 3 days prescription given Patient advised to check with his insurance for the chronic pain clinic to be referred in the Insurance as we do not give chronic pain medication in my office. Patient Condition at Discharge: Poor Plan - Discharge Summary Discharge Rx Participant: Yes New Discharge Prescriptions: New Spironolactone [Aldactone] 50 mg PO DAILY 30 Days #60 tab Losartan [Cozaar] 50 mg PO DAILY 30 Days #30 tab Furosemide [Lasix] 40 mg PO DAILY 30 Days #30 tab hydrALAZINE HCL [Apresoline] 25 mg PO TID 30 Days #90 tab carvediloL [Coreg*] 12.5 mg PO BID-W/MEALS tab Nicotine 14Mg/24Hr Patch [Habitrol] 1 patch TRANSDERM DAILY #30 patch Continue INSULIN LISPRO (humaLOG) [humaLOG] See Protocol SQ AC-TID MDD 30 units Ergocalciferol (Vitamin D2) [Drisdol (50,000 Iu)] 1,250 mcg PO WEEKLY Carvedilol [Coreg] 12.5 mg PO BID Discontinued Lisinopril [Prinivil] 10 mg PO DAILY Insulin Glargine,Hum.rec.anlog [Lantus Solostar Pen] 30 unit SQ HS Discharge Medication List INSULIN LISPRO (humaLOG) [humaLOG] See Protocol SQ AC-TID MDD 30 units 03/28/21 [History] Carvedilol [Coreg] 12.5 mg PO BID 04/06/21 [History] Ergocalciferol (Vitamin D2) [Drisdol (50,000 Iu)] 1,250 mcg PO WEEKLY 04/06/21 [ History] Furosemide [Lasix] 40 mg PO DAILY 30 Days #30 tab 04/10/21 [Rx] Losartan [Cozaar] 50 mg PO DAILY 30 Days #30 tab 04/10/21 [Rx] Nicotine 14Mg/24Hr Patch [Habitrol] 1 patch TRANSDERM DAILY #30 patch 04/10/21 [Rx] Spironolactone [Aldactone] 50 mg PO DAILY 30 Days #60 tab 04/10/21 [Rx] carvediloL [Coreg*] 12.5 mg PO BID-W/MEALS tab 04/10/21 [Rx] hydrALAZINE HCL [Apresoline] 25 mg PO TID 30 Days #90 tab 04/10/21 [Rx] Follow up Appointment(s)/Referral(s): Pepe Catherine MD [STAFF PHYSICIAN] - 2 Weeks Emerita Zaidi MD [STAFF PHYSICIAN] - 2 Weeks John Zaman MD [Primary Care Provider] - 1-2 days Activity/Diet/Wound Care/Special Instructions: wants flu shot at discharge - please order
[2021-04-10] MEDS ORDERED: traMADol 50 MG TAB PO SCH (13:00)
[2021-04-10 13:13] VITALS: BP 137/87; PULSE 73; TEMP 97.5
--- NOTE | 2021-04-10 14:14 | P.PN ---
Subjective Progress Note Date: 04/10/21 Principal diagnosis: Ascites Is a 61-year-old male for new onset ascites. He has multiple comorbidities and has not been following with any PCP for some time. Has a history of hepatitis C, believes he was treated for it diagnosed approximately 10 years ago. On admission LFTs were normal. Denied any previous history of ascites or paracentesis. He complained of increased abdominal distention over the last 1-2 weeks duration. patient underwent paracentesis yesterday with removal 1.1 L of fluid. Fluid studies currently pending. Patient states he is feeling much better and abdominal distention has improved. He denies any abdominal pain, nausea, or vomiting. He is tolerating his diet. Objective - Vital Signs Vital signs: Vital Signs Temp 97.9 F 04/10/21 07:09 Pulse 80 04/10/21 07:09 Resp 18 04/10/21 07:09 BP 155/95 04/10/21 07:09 Pulse Ox 91 L 04/10/21 07:09 Intake & Output 04/09/21 04/10/21 04/10/21 18:59 06:59 18:59 Intake Total 240 480 480 Output Total 1060 Balance -820 480 480 Weight 72.575 kg 72.4 kg Intake: Oral 240 480 480 Output: Other 1060 Other: # Voids 2 1 # Bowel Movements 1 - Exam General appearance: The patient is alert, oriented, appears in no acute distress. HET: Head is normocephalic and atraumatic. Conjunctiva pink. Sclera anicteric. Neck: Supple without lymphadenopathy. Abdomen: Soft, nontender, nondistended. No guarding or rigidity. Extremities: Normal skin color and turgor. No pedal edema Skin: No rashes, no jaundice Neurological: No focal deficits. Alert and oriented 3. - Labs CBC & Chem 7: 04/09/21 06:03 04/09/21 06:03 Labs: Abnormal Lab Results - Last 24 Hours (Table) 04/09/21 04/09/21 04/09/21 Range/Units 12:12 17:28 20:07 POC Glucose (mg/dL) 142 H 147 H 150 H (75-99) mg/dL 04/10/21 Range/Units 07:16 POC Glucose (mg/dL) 175 H (75-99) mg/dL Microbiology - Last 24 Hours (Table) 04/09/21 12:50 Gram Stain - Preliminary Ascites Fluid Body Fluid Culture - Preliminary 04/09/21 12:50 Anaerobic Culture - Preliminary Ascites Fluid Assessment and Plan (1) Abdominal ascites Narrative/Plan: 61-year-old with multiple comorbidities who was presenting to the hospital this morning with complaints of abdominal pain which she states were sharp associated with nausea and vomiting. Pain and distention began two weeks ago, nausea and vomiting ten days ago. He was recently seen in the emergency department and had CT of the abdomen and pelvis showing ascites. He had a hepatitis panel which showed a positive hepatitis C antibody. He was diagnosed with hepatitis C 10 years ago and treated by Dr. Burciaga. Likely dealing with decompensated cir rhosis of the liver with ascites from underlying chronic hepatitis C infection and history of alcohol abuse . Will order liver ultrasound and paracentesis for fluid studies. Patient underwent paracentesis, fluid studies consistent with liver disease Status: Acute Code(s): R18.8 - OTHER ASCITES SNOMED Code(s): 943064042 (2) Hepatitis C antibody test positive Narrative/Plan: Patient has history of hepatitis C with treatment. Hepatitis C RNA and genotype pending. Recommend outpatient follow-up Status: Acute Code(s): R76.8 - OTHER SPECIFIED ABNORMAL IMMUNOLOGICAL FINDINGS IN SERUM SNOMED Code(s): 380308136 (3) Abdominal pain Status: Acute Code(s): R10.9 - UNSPECIFIED ABDOMINAL PAIN SNOMED Code(s): 58916577 Plan: 1. Symptomatic and supportive care 2. Patient is status post paracentesis with pending fluid studies. 3. Continue Lasix 20 mg QD and Aldactone 50mg QD 4. Hep C RNA quantitative less than 12, genotype canceled 5. Patient will need outpatient follow up with GI 6. Patient stable for discharge from gastroenterology standpoint Dr. Te Zaidi I agree with the dictator's note, documented as a scribe by Ce Duran.
[2021-04-11] MEDS ORDERED: LOSARTAN 50 MG TAB PO SCH (09:00)
== END 2021-04-10 14:02 | disposition home or self-care (01) | DRG 441 ==
LOC: EC 10:01 → 5NMEDONC 12:50
PROVIDERS: ADMIT Internal Medicine; ATTEND Internal Medicine
PROC: 0W9G3ZZ Drainage of Peritoneal Cavity, Percutaneous Approach (ICD-10-PCS; principal; 2021-04-09)
DX: K72.90 Hepatic failure, unspecified without coma (principal); I50.43 Acute on chronic combined systolic (congestive) and diastolic (congestive) heart failure; E87.1 Hypo-osmolality and hyponatremia; J98.11 Atelectasis; K76.6 Portal hypertension; I69.354 Hemiplegia and hemiparesis following cerebral infarction affecting left non-dominant side; K70.31 Alcoholic cirrhosis of liver with ascites; J44.9 Chronic obstructive pulmonary disease, unspecified; B18.2 Chronic viral hepatitis C; B35.1 Tinea unguium; B35.3 Tinea pedis; E11.51 Type 2 diabetes mellitus with diabetic peripheral angiopathy without gangrene; E11.40 Type 2 diabetes mellitus with diabetic neuropathy, unspecified; Z79.4 Long term (current) use of insulin; Z20.822 Contact with and (suspected) exposure to COVID-19; K70.11 Alcoholic hepatitis with ascites; I27.20 Pulmonary hypertension, unspecified; I11.0 Hypertensive heart disease with heart failure; E78.5 Hyperlipidemia, unspecified; E63.9 Nutritional deficiency, unspecified; Z71.3 Dietary counseling and surveillance; R63.4 Abnormal weight loss; F11.11 Opioid abuse, in remission; F10.21 Alcohol dependence, in remission; Z68.22 Body mass index [BMI] 22.0-22.9, adult; F17.210 Nicotine dependence, cigarettes, uncomplicated; F31.9 Bipolar disorder, unspecified; F41.9 Anxiety disorder, unspecified; I08.3 Combined rheumatic disorders of mitral, aortic and tricuspid valves; I25.10 Atherosclerotic heart disease of native coronary artery without angina pectoris; I25.2 Old myocardial infarction; I25.5 Ischemic cardiomyopathy; I49.3 Ventricular premature depolarization; G89.4 Chronic pain syndrome; M19.90 Unspecified osteoarthritis, unspecified site; M54.5 Low back pain; K08.109 Complete loss of teeth, unspecified cause, unspecified class; Z79.82 Long term (current) use of aspirin; Z81.1 Family history of alcohol abuse and dependence; Z79.899 Other long term (current) drug therapy; Z80.1 Family history of malignant neoplasm of trachea, bronchus and lung; Z80.3 Family history of malignant neoplasm of breast; Z81.8 Family history of other mental and behavioral disorders; Z82.49 Family history of ischemic heart disease and other diseases of the circulatory system; Z83.3 Family history of diabetes mellitus; Z86.010 Personal history of colon polyps; Z88.0 Allergy status to penicillin; Z88.8 Allergy status to other drugs, medicaments and biological substances; Z90.49 Acquired absence of other specified parts of digestive tract; Z91.19 Patient's noncompliance with other medical treatment and regimen; Z95.5 Presence of coronary angioplasty implant and graft; Z86.14 Personal history of Methicillin resistant Staphylococcus aureus infection; Z92.89 Personal history of other medical treatment; Z98.890 Other specified postprocedural states; Z87.311 Personal history of (healed) other pathological fracture
CPT/HCPCS: 36415; 49083; 71046; 76705; 80048; 80053; 80061; 80076; 81001; 82042; 82140; 82150; 82607; 82746; 82977; 83036; 83605; 83615; 83690; 83735; 83880; 84134; 84157; 84207; 84550; 85025; 85610; 85730; 87070; 87075; 87205; 87522; 87635; 88108; 88305; 89050; 90686; 93306; 96374; 96375; 96376; 99285

== ENCOUNTER 2021-04-15 12:01 | Emergency (ER) | payer OTHER ==
[2021-04-15 12:48] LABS: Basophils % (A) 1 %; Eosinophils # (A) 0.1 k/uL (0-0.7); Eosinophils % (A) 2 %; HCT 37.2 % (39.0-53.0); HGB 12.2 gm/dL (13.0-17.5); Lymphocytes # (A) 1.1 k/uL (1.0-4.8); Lymphocytes % (A) 27 %; MCH 32.6 pg (25.0-35.0); MCHC 32.9 g/dL (31.0-37.0); MCV 99.2 fL (80.0-100.0); Mean Platelet Volume 9.6; Monocytes # (A) 0.4 k/uL (0-1.0); Monocytes % (A) 9 %; Neutrophils # (A) 2.3 k/uL (1.3-7.7); Neutrophils % (A) 59 %; Platelet Count 117 k/uL (150-450); RBC 3.75 m/uL (4.30-5.90); RDW 13.3 % (11.5-15.5)
[2021-04-15 12:55] LABS: Albumin 2.7 g/dL (3.5-5.0); Calcium 8.4 mg/dL (8.4-10.2); Potassium 5.3 mmol/L (3.5-5.1); Total Bilirubin 0.9 mg/dL (0.2-1.3); Total Protein 5.9 g/dL (6.3-8.2)
[2021-04-15 12:58] LABS: Appearance,Urine Clear (Clear); Bilirubin,Urine Negative (Negative); Blood,Urine Small (Negative); Color,Urine Light Yellow; Glucose,Urine (UA) Negative (Negative); Ketones,Urine Negative (Negative); Leukocyte Esterase,Urine Negative (Negative); Mucus,Urine Rare /hpf; Nitrite,Urine Negative (Negative); PH, Urine 6.5 (5.0-8.0); Protein,Urine 1+ (Negative); RBC,Urine 6 /hpf (0-5); Specific Gravity,Urine 1.009 (1.001-1.035); Urobilinogen,Urine <2.0 mg/dL (<2.0); WBC,Urine <1 /hpf (0-5)
[2021-04-15] MEDS ORDERED: diphenhydrAMINE 50 MG/ML 1 ML VIAL IVP STA (13:05)
[2021-04-15] MEDS ORDERED: HYDROmorphone 1 MG/ML 1 ML SYRINGE IVP STA (13:05)
--- NOTE | 2021-04-15 13:19 | ED ---
Abdominal Pain HPI - General Chief Complaint: Abdominal Pain Stated Complaint: Abd Pain Time Seen by Provider: 04/15/21 12:40 Source: patient, RN notes reviewed, old records reviewed Mode of arrival: EMS Limitations: no limitations - History of Present Illness Initial Comments: Patient is a 61-year-old male with multiple comorbidities, presenting to the emergency department via EMS with complaints of significant abdominal pain since she was discharged from the hospital 5 days ago. Patient has history of cirrhosis of liver, alcohol abuse, hepatitis C. He was discharged 5 days ago, he had paracentesis done 6 days ago. They removed a 1 L fluid. He was sent home with tramadol. Patient states he's been having pain ever since. He is out of his pain meds. He has not followed up with his doctors. He thinks he has an appointment sometime this week. He denies nausea or vomiting. Denies any hematemesis or hematochezia. He denies any fevers or chills, no chest pain or shortness of breath. He has no further complaints. She did receive 100 g of fentanyl in the EMS prior to arrival. He continues to complain of pain a 10 out of 10. Patients vital signs are stable upon arrival. - Related Data Home Medications Medication Instructions Recorded Confirmed INSULIN LISPRO (humaLOG) [humaLOG] See Protocol SQ AC-TID MDD 30 units 03/28/21 04/06/21 Carvedilol [Coreg] 12.5 mg PO BID 04/06/21 04/06/21 Ergocalciferol (Vitamin D2) 1,250 mcg PO WEEKLY 04/06/21 04/06/21 [Drisdol (50,000 Iu)] Previous Rx's Medication Instructions Recorded Furosemide [Lasix] 40 mg PO DAILY 30 Days #30 tab 04/10/21 Losartan [Cozaar] 50 mg PO DAILY 30 Days #30 tab 04/10/21 Nicotine 14Mg/24Hr Patch [Habitrol] 1 patch TRANSDERM DAILY #30 patch 04/10/21 Spironolactone [Aldactone] 50 mg PO DAILY 30 Days #60 tab 04/10/21 carvediloL [Coreg*] 12.5 mg PO BID-W/MEALS tab 04/10/21 hydrALAZINE HCL [Apresoline] 25 mg PO TID 30 Days #90 tab 10/12/21 traMADol HCL [Ultram] 50 mg PO Q6HR PRN 3 Days #12 tab 04/10/21 Allergies Allergy/AdvReac Type Severity Reaction Status Date / Time Penicillins Allergy Unknown Verified 04/15/21 12:15 Childhood metformin AdvReac Mild Nausea Verified 04/15/21 12:15 Review of Systems ROS Statement: Those systems with pertinent positive or pertinent negative responses have been documented in the HPI. ROS Other: All systems not noted in ROS Statement are negative. Past Medical History Past Medical History: Coronary Artery Disease (CAD), Heart Failure, COPD, CVA/TIA, Diabetes Mellitus, Hyperlipidemia, Hypertension, Liver Disease, Myocardial Infarction ([place]) Additional Past Medical History / Comment(s): Ischemic cardiomyopathy with EF of 7% per patient, PVCs, CVA 2019 with L sided weakness, chronic low back pain d/t vertebral fractures years ago as well as cervical pinched nerves, DDD, IDDM type II, neuropathy bilateral hands/legs and feet, hepatitis C Last Myocardial Infarction Date:: October 2018 History of Any Multi-Drug Resistant Organisms: MRSA Date of last positivie culture/infection: 11/23/20 MDRO Source:: FOOT MRSA Past Surgical History: Cholecystectomy, Heart Catheterization, Heart Catheterization With Stent, Tonsillectomy Additional Past Surgical History / Comment(s): R heel I&D, colonoscopy. Past Anesthesia/Blood Transfusion Reactions: No Reported Reaction Date of Last Stent Placement:: 2011 Past Psychological History: Anxiety, Bipolar, Depression Smoking Status: Current some day smoker Past Alcohol Use History: None Reported Past Drug Use History: Heroin, Marijuana - Past Family History Mother Family Medical History: Cancer Father Family Medical History: Coronary Artery Disease (CAD), Diabetes Mellitus, Hypertension General Exam - General Exam Comments Initial Comments: GENERAL: Patient is well-developed and well-nourished. Patient is nontoxic and in mild distress. HEAD: Atraumatic, normocephalic. EYES: Pupils equal round and reactive to light, extraocular movements intact, sclera anicteric, conjunctiva are normal. Eyelids were unremarkable. ENT: TMs normal, nares patent, oropharynx clear without exudates. Moist mucous membranes. NECK: Normal range of motion, supple without lymphadenopathy or JVD. LUNGS: Unlabored respirations. Breath sounds clear to auscultation bilaterally and equal. No wheezes rales or rhonchi. HEART: Regular rate and rhythm without murmurs, rubs or gallops. ABDOMEN: Abdomen is soft, mildly distended, tender of the right upper and lower quadrants. normoactive bowel sounds. No guarding, no rebound. No masses appreciated. : Deferred MUSCULOSKELETAL: Normal extremities with adequate strength and normal range of motion, no pitting or edema. No clubbing or cyanosis. NEUROLOGICAL: Patient is alert and oriented x 3. Motor and sensory are also intact. Cranial nerves II through XII grossly intact. Symmetrical smile. Normal speech, normal gait. PSYCH: Normal mood, normal affect. SKIN: Warm, Dry, normal turgor, no rashes or lesions noted. Limitations: no limitations Course Vital Signs 04/15/21 12:10 Temperature 97.8 F Pulse Rate 66 Respiratory 18 Rate Blood Pressure 138/90 O2 Sat by Pulse 98 Oximetry Medical Decision Making - Medical Decision Making Patient is 61-year-old male with multiple comorbidities including cirrhosis, hepatitis C, presenting EMS with complaints of abdominal pain since he was discharged. He was discharged 5 days ago, had paracentesis 6 days ago with removal of 1 L of fluids. He has yet to follow up with his doctors. They discharged him with tramadol. Labs are all within normal limits, urine shows no evidence of infection. Liver enzymes are normal. Received pain control. I discussed with patient that he needs to follow-up with his doctors including pain management for further management of his chronic pain. He is agreeable to this. I will give him a tramadol starter pack. Return parameters were discussed with him and he verbalized understanding. Case discussed with Dr. Calle. - Lab Data Result diagrams: 04/15/21 12:24 04/15/21 12:24 Lab Results 04/15/21 04/15/21 04/15/21 Range/Units 12:24 12:24 12:24 WBC 4.0 (3.8-10.6) k/uL RBC 3.75 L (4.30-5.90) m/uL Hgb 12.2 L (13.0-17.5) gm/dL Hct 37.2 L (39.0-53.0) % MCV 99.2 (80.0-100.0) fL MCH 32.6 (25.0-35.0) pg MCHC 32.9 (31.0-37.0) g/dL RDW 13.3 (11.5-15.5) % Plt Count 117 L (150-450) k/uL MPV 9.6 Neutrophils % 59 % Lymphocytes % 27 % Monocytes % 9 % Eosinophils % 2 % Basophils % 1 % Neutrophils # 2.3 (1.3-7.7) k/uL Lymphocytes # 1.1 (1.0-4.8) k/uL Monocytes # 0.4 (0-1.0) k/uL Eosinophils # 0.1 (0-0.7) k/uL Basophils # 0.0 (0-0.2) k/uL Sodium 133 L (137-145) mmol/L Potassium 5.3 H (3.5-5.1) mmol/L Chloride 106 (98-107) mmol/L Carbon Dioxide 22 (22-30) mmol/L Anion Gap 5 mmol/L BUN 28 H (9-20) mg/dL Creatinine 1.03 (0.66-1.25) mg/dL Est GFR (CKD-EPI)AfAm 90 (>60 ml/min/1.73 sqM) Est GFR (CKD-EPI)NonAf 78 (>60 ml/min/1.73 sqM) Glucose 149 H (74-99) mg/dL Plasma Lactic Acid [place] (0.7-2.0) mmol/L Calcium 8.4 (8.4-10.2) mg/dL Total Bilirubin 0.9 (0.2-1.3) mg/dL AST 57 (17-59) U/L ALT 34 (4-49) U/L Alkaline Phosphatase 149 H (38-126) U/L Total Protein 5.9 L (6.3-8.2) g/dL Albumin 2.7 L (3.5-5.0) g/dL Amylase 39 (30-110) U/L Lipase 47 (23-300) U/L Urine Color Light Yellow Urine Appearance Clear (Clear) Urine pH 6.5 (5.0-8.0) Ur Specific [place] 1.009 (1.001-1.035) Urine Protein 1+ H (Negative) Urine Glucose (UA) Negative (Negative) Urine Ketones Negative (Negative) Urine Blood Small H (Negative) Urine Nitrite Negative (Negative) Urine Bilirubin Negative (Negative) Urine Urobilinogen <2.0 (<2.0) mg/dL Ur Leukocyte Esterase Negative (Negative) Urine RBC 6 H (0-5) /hpf Urine WBC <1 (0-5) /hpf Urine Mucus Rare H (None) /hpf 04/15/21 Range/Units 12:24 WBC (3.8-10.6) k/uL RBC (4.30-5.90) m/uL Hgb (13.0-17.5) gm/dL Hct (39.0-53.0) % MCV (80.0-100.0) fL MCH (25.0-35.0) pg MCHC (31.0-37.0) g/dL RDW (11.5-15.5) % Plt Count (150-450) k/uL MPV Neutrophils % % Lymphocytes % % Monocytes % % Eosinophils % % Basophils % % Neutrophils # (1.3-7.7) k/uL Lymphocytes # (1.0-4.8) k/uL Monocytes # (0-1.0) k/uL Eosinophils # (0-0.7) k/uL Basophils # (0-0.2) k/uL Sodium (137-145) mmol/L Potassium (3.5-5.1) mmol/L Chloride (98-107) mmol/L Carbon Dioxide (22-30) mmol/L Anion Gap mmol/L BUN (9-20) mg/dL Creatinine (0.66-1.25) mg/dL Est GFR (CKD-EPI)AfAm (>60 ml/min/1.73 sqM) Est GFR (CKD-EPI)NonAf (>60 ml/min/1.73 sqM) Glucose (74-99) mg/dL Plasma Lactic Acid [place] 0.8 (0.7-2.0) mmol/L Calcium (8.4-10.2) mg/dL Total Bilirubin (0.2-1.3) mg/dL AST (17-59) U/L ALT (4-49) U/L Alkaline Phosphatase (38-126) U/L Total Protein (6.3-8.2) g/dL Albumin (3.5-5.0) g/dL Amylase (30-110) U/L Lipase (23-300) U/L Urine Color Urine Appearance (Clear) Urine pH (5.0-8.0) Ur Specific [place] (1.001-1.035) Urine Protein (Negative) Urine Glucose (UA) (Negative) Urine Ketones (Negative) Urine Blood (Negative) Urine Nitrite (Negative) Urine Bilirubin (Negative) Urine Urobilinogen (<2.0) mg/dL Ur Leukocyte Esterase (Negative) Urine RBC (0-5) /hpf Urine WBC (0-5) /hpf Urine Mucus (None) /hpf Disposition Clinical Impression: Abdominal pain Disposition: HOME SELF-CARE Condition: Stable Instructions (If sedation given, give patient instructions): Abdominal Pain (ED) Additional Instructions: Please return to the Emergency Department if symptoms worsen or any other concerns. Follow-up with your doctors including pain management for further management of your chronic abdominal pain. Is patient prescribed a controlled substance at d/c from ED?: No Referrals: John Zaman MD [Primary Care Provider] - 1-2 days Time of Disposition: 14:43
[2021-04-15] MEDS ORDERED: HYDROmorphone 0.5 MG/0.5 ML SYRINGE IVP STA (14:40)
[2021-04-15] MEDS ORDERED: traMADol 50 MG STARTER PACK 3 TAB BTL PO STA (14:42)
[2021-04-15 15:07] VITALS: BP 147/80; PULSE 74; RESP 18; TEMP 98.7
== END 2021-04-15 15:06 | disposition home or self-care (01) ==
LOC: EC 12:01
DX: R10.11 Right upper quadrant pain (principal); J44.9 Chronic obstructive pulmonary disease, unspecified; E11.9 Type 2 diabetes mellitus without complications; I25.2 Old myocardial infarction; I11.0 Hypertensive heart disease with heart failure; I25.10 Atherosclerotic heart disease of native coronary artery without angina pectoris; I50.9 Heart failure, unspecified; F17.200 Nicotine dependence, unspecified, uncomplicated; Z88.0 Allergy status to penicillin; Z88.8 Allergy status to other drugs, medicaments and biological substances; Z95.5 Presence of coronary angioplasty implant and graft; Z86.73 Personal history of transient ischemic attack (TIA), and cerebral infarction without residual deficits
CPT/HCPCS: 36415; 80053; 82150; 83605; 83690; 85025; 81001; 99284; 96374; 96375; 96376; J1200; J1170 ×2

== ENCOUNTER 2021-04-23 21:42 | Observation (INO) | payer OTHER ==
[2021-04-23] MEDS ORDERED: MORPHINE SULFATE 4 MG/ML SYRINGE IV STA (22:12)
[2021-04-23] MEDS ORDERED: carvediloL 6.25 MG TAB PO STA (22:13)
[2021-04-23] MEDS ORDERED: hydrALAZINE HCL 20 MG/ML 1 ML VIAL IVP STA (22:13)
--- NOTE | 2021-04-23 22:33 | ED ---
Abdominal Pain HPI - General Chief Complaint: Abdominal Pain Stated Complaint: Abdominal Pain Time Seen by Provider: 04/23/21 21:47 Source: patient, EMS Mode of arrival: EMS - History of Present Illness Initial Comments: This patient is 61-year-old man with history of end-stage liver disease and cirrhosis who complains of having worsening, severe, diffuse abdominal pain since yesterday in the evening. It is been going on over 24 hours. He states that he has been trying to take tramadol but it is not really providing any relief. He has had some associated nausea. No change in urination or bowel movements noted. MD Complaint: abdominal pain Onset/Timin -: days(s) Location: diffuse Radiation: none Migration to: no migration Severity: severe Quality: aching Consistency: constant Improves With: nothing Worsens With: nothing Associated Symptoms: nausea - Related Data Home Medications Medication Instructions Recorded Confirmed Ergocalciferol (Vitamin D2) 1,250 mcg PO WEEKLY 04/06/21 04/23/21 [Drisdol (50,000 Iu)] Lisinopril [Prinivil] 10 mg PO DAILY 04/23/21 04/23/21 Previous Rx's Medication Instructions Recorded carvediloL [Coreg*] 12.5 mg PO BID-W/MEALS tab 04/10/21 Furosemide [Lasix] 40 mg PO BID@0900,1600 #60 tab 04/25/21 HYDROcodone/APAP 5-325MG [[place] 1 tab PO Q6HR PRN 3 Days #12 tab 04/25/21 5-325] Spironolactone [Aldactone] 100 mg PO DAILY #30 tab 04/25/21 Allergies Allergy/AdvReac Type Severity Reaction Status Date / Time Penicillins Allergy Unknown Verified 04/15/21 12:15 Childhood metformin AdvReac Mild Nausea Verified 04/15/21 12:15 Review of Systems ROS Statement: Those systems with pertinent positive or pertinent negative responses have been documented in the HPI. ROS Other: All systems not noted in ROS Statement are negative. Constitutional: Denies: fever, chills, weakness Respiratory: Denies: cough, dyspnea Cardiovascular: Denies: chest pain, palpitations, edema Gastrointestinal: Reports: as per HPI, abdominal pain, nausea. Denies: vomiting, diarrhea Genitourinary: Denies: dysuria, hematuria Musculoskeletal: Denies: back pain Skin: Denies: rash Neurological: Denies: headache, weakness, numbness Past Medical History Past Medical History: Coronary Artery Disease (CAD), Heart Failure, COPD, CVA/TIA, Diabetes Mellitus, Hyperlipidemia, Hypertension, Liver Disease, Myocardial Infarction ([place]) Additional Past Medical History / Comment(s): Ischemic cardiomyopathy with EF of 7% per patient, PVCs, CVA 2019 with L sided weakness, chronic low back pain d/t vertebral fractures years ago as well as cervical pinched nerves, DDD, IDDM type II, neuropathy bilateral hands/legs and feet, hepatitis C Last Myocardial Infarction Date:: October 2018 History of Any Multi-Drug Resistant Organisms: MRSA Date of last positivie culture/infection: 11/23/20 MDRO Source:: FOOT MRSA Past Surgical History: Cholecystectomy, Heart Catheterization, Heart Cathet erization With Stent, Tonsillectomy Additional Past Surgical History / Comment(s): R heel I&D, colonoscopy. Past Anesthesia/Blood Transfusion Reactions: No Reported Reaction Date of Last Stent Placement:: 2011 Past Psychological History: Anxiety, Bipolar, Depression Smoking Status: Current every day smoker Past Alcohol Use History: None Reported Past Drug Use History: Heroin, Marijuana - Past Family History Mother Family Medical History: Cancer Father Family Medical History: Coronary Artery Disease (CAD), Diabetes Mellitus, Hypertension General Exam General appearance: alert, in no apparent distress Head exam: Present: atraumatic, normocephalic Eye exam: Present: normal appearance Respiratory exam: Present: normal lung sounds bilaterally. Absent: respiratory distress, wheezes, rales, rhonchi, stridor Cardiovascular Exam: Present: regular rate, normal rhythm, normal heart sounds. Absent: systolic murmur, diastolic murmur, rubs, gallop GI/Abdominal exam: Present: distended, tenderness. Absent: rigid, mass, pulsatile mass, hernia Extremities exam: Present: normal inspection, normal capillary refill. Absent: pedal edema, calf tenderness Back exam: Present: normal inspection. Absent: CVA tenderness (R), CVA tenderness (L) Neurological exam: Present: alert Skin exam: Present: warm, dry, intact, normal color. Absent: rash Course Vital Signs 04/23/21 04/23/21 04/23/21 21:44 22:41 23:23 Temperature 98.1 F Pulse Rate 90 100 90 Pulse Rate [ Pulse Oximetery ] Respiratory 20 20 20 Rate Blood Pressure 161/110 156/104 143/81 Blood Pressure [Right Arm] O2 Sat by Pulse 99 98 97 Oximetry 04/23/21 04/24/21 04/24/21 23:57 01:09 02:21 Temperature Pulse Rate 93 86 74 Pulse Rate [ Pulse Oximetery ] Respiratory 20 20 20 Rate Blood Pressure 125/83 136/80 126/76 Blood Pressure [Right Arm] O2 Sat by Pulse 97 98 95 Oximetry 04/24/21 04/24/21 04/24/21 04:26 06:30 07:37 Temperature Pulse Rate 83 74 72 Pulse Rate [ Pulse Oximetery ] Respiratory 20 20 18 Rate Blood Pressure 157/98 159/95 160/94 Blood Pressure [Right Arm] O2 Sat by Pulse 97 95 95 Oximetry 04/24/21 04/24/21 04/24/21 09:42 12:06 12:21 Temperature Pulse Rate 84 Pulse Rate [ 80 85 Pulse Oximetery ] Respiratory 18 20 18 Rate Blood Pressure 159/108 Blood Pressure 179/82 180/110 [Right Arm] O2 Sat by Pulse 98 97 97 Oximetry 04/24/21 04/24/21 04/24/21 12:35 12:50 13:15 Temperature Pulse Rate 83 Pulse Rate [ 85 89 Pulse Oximetery ] Respiratory 18 20 18 Rate Blood Pressure 168/114 Blood Pressure 177/100 186/113 [Right Arm] O2 Sat by Pulse 98 98 99 Oximetry 04/24/21 04/24/21 04/24/21 13:30 13:58 14:30 Temperature Pulse Rate 82 78 84 Pulse Rate [ Pulse Oximetery ] Respiratory 18 16 18 Rate Blood Pressure 179/114 116/59 151/131 Blood Pressure [Right Arm] O2 Sat by Pulse 99 96 97 Oximetry Medical Decision Making - Lab Data Result diagrams: 04/23/21 22:40 04/25/21 06:27 Lab Results 04/23/21 04/23/21 04/23/21 Range/Units 22:40 22:40 22:40 WBC 7.2 (3.8-10.6) k/uL RBC 4.62 (4.30-5.90) m/uL Hgb 14.2 (13.0-17.5) gm/dL Hct 45.7 (39.0-53.0) % MCV 98.8 (80.0-100.0) fL MCH 30.7 (25.0-35.0) pg MCHC 31.0 (31.0-37.0) g/dL RDW 13.3 (11.5-15.5) % Plt Count 153 (150-450) k/uL MPV 8.9 Neutrophils % 62 % Lymphocytes % 27 % Monocytes % 5 % Eosinophils % 2 % Basophils % 1 % Neutrophils # 4.4 (1.3-7.7) k/uL Lymphocytes # 2.0 (1.0-4.8) k/uL Monocytes # 0.4 (0-1.0) k/uL Eosinophils # 0.2 (0-0.7) k/uL Basophils # 0.1 (0-0.2) k/uL Sodium 137 (137-145) mmol/L Potassium 4.9 (3.5-5.1) mmol/L Chloride 109 H (98-107) mmol/L Carbon Dioxide 22 (22-30) mmol/L Anion Gap 6 mmol/L BUN 19 (9-20) mg/dL Creatinine 0.81 (0.66-1.25) mg/dL Est GFR (CKD-EPI)AfAm >90 (>60 ml/min/1.73 sqM) Est GFR (CKD-EPI)NonAf >90 (>60 ml/min/1.73 sqM) Glucose 129 H (74-99) mg/dL Calcium 8.5 (8.4-10.2) mg/dL Total Bilirubin 0.8 (0.2-1.3) mg/dL AST 62 H (17-59) U/L ALT 37 (4-49) U/L Alkaline Phosphatase 147 H (38-126) U/L Total Protein 7.3 (6.3-8.2) g/dL Albumin 3.6 (3.5-5.0) g/dL Amylase 76 (30-110) U/L Lipase 70 (23-300) U/L Urine Color Yellow Urine Appearance Clear (Clear) Urine pH 6.5 (5.0-8.0) Ur Specific [place] 1.024 (1.001-1.035) Urine Protein 3+ H (Negative) Urine Glucose (UA) Negative (Negative) Urine Ketones Negative (Negative) Urine Blood Large H (Negative) Urine Nitrite Negative (Negative) Urine Bilirubin Negative (Negative) Urine Urobilinogen <2.0 (<2.0) mg/dL Ur Leukocyte Esterase Negative (Negative) Urine RBC 32 H (0-5) /hpf Urine WBC 2 (0-5) /hpf Ur Squamous Epith Cells <1 (0-4) /hpf Hyaline Casts 13 H (0-2) /lpf Urine Mucus Few H (None) /hpf Disposition Clinical Impression: Abdominal pain, Abdominal ascites Disposition: ADMITTED IP TO THIS HOSP Condition: Poor Is patient prescribed a controlled substance at d/c from ED?: No
[2021-04-23 22:46] LABS: Basophils # (A) 0.1 k/uL (0-0.2); Basophils % (A) 1 %; Eosinophils # (A) 0.2 k/uL (0-0.7); Eosinophils % (A) 2 %; HCT 45.7 % (39.0-53.0); HGB 14.2 gm/dL (13.0-17.5); Lymphocytes % (A) 27 %; MCH 30.7 pg (25.0-35.0); MCV 98.8 fL (80.0-100.0); Mean Platelet Volume 8.9; Monocytes # (A) 0.4 k/uL (0-1.0); Monocytes % (A) 5 %; Neutrophils # (A) 4.4 k/uL (1.3-7.7); Neutrophils % (A) 62 %; Platelet Count 153 k/uL (150-450); RBC 4.62 m/uL (4.30-5.90); RDW 13.3 % (11.5-15.5); WBC 7.2 k/uL (3.8-10.6)
[2021-04-23 23:03] LABS: ALT 37 U/L (4-49); AST 62 U/L (17-59); African American GFR (CKD) >90 (>60 ml/min/1.73 sqM); Albumin 3.6 g/dL (3.5-5.0); Alkaline Phosphatase 147 U/L (38-126); Amylase 76 U/L (30-110); Anion Gap 6 mmol/L; Blood Urea Nitrogen 19 mg/dL (9-20); Calcium 8.5 mg/dL (8.4-10.2); Carbon Dioxide 22 mmol/L (22-30); Chloride 109 mmol/L (98-107); Glucose 129 mg/dL (74-99); Lipase 70 U/L (23-300); Non-African American GFR(CKD) >90 (>60 ml/min/1.73 sqM); Potassium 4.9 mmol/L (3.5-5.1); Sodium 137 mmol/L (137-145); Total Bilirubin 0.8 mg/dL (0.2-1.3); Total Protein 7.3 g/dL (6.3-8.2)
[2021-04-23 23:29] LABS: Appearance,Urine Clear (Clear); Bilirubin,Urine Negative (Negative); Blood,Urine Large (Negative); Color,Urine Yellow; Glucose,Urine (UA) Negative (Negative); Hyaline Casts,Urine 13 /lpf (0-2); Ketones,Urine Negative (Negative); Leukocyte Esterase,Urine Negative (Negative); Mucus,Urine Few /hpf; Nitrite,Urine Negative (Negative); PH, Urine 6.5 (5.0-8.0); Protein,Urine 3+ (Negative); RBC,Urine 32 /hpf (0-5); Specific Gravity,Urine 1.024 (1.001-1.035); Squamous Epithelial Cell,Urine <1 /hpf (0-4); Urobilinogen,Urine <2.0 mg/dL (<2.0); WBC,Urine 2 /hpf (0-5)
[2021-04-24] MEDS ORDERED: MORPHINE SULFATE 4 MG/ML SYRINGE IV STA ×2 (01:04→06:17)
[2021-04-24] MEDS ORDERED: ONDANSETRON 4 MG/2 ML VIAL IVP PRN (06:41)
[2021-04-24] MEDS ORDERED: NALOXONE 0.4 MG/ML 1 ML VIAL IV PRN (06:41)
--- NOTE | 2021-04-24 10:20 | P.HPIM ---
History of Present Illness H&P Date: 04/24/21 This is a 61-year-old male with complex past medical history significant for underlying liver cirrhosis that presented to the hospital with worsening abdominal pain and distention. Patient said that his symptoms started a few days ago and is being getting progressively worse. He denies any fevers or chills. He reported taking his Lasix and spironolactone as prescribed. Patient was hospitalized 2 weeks ago for same problem and underwent paracentesis with approximately 1.1 L removed. He denies any other complaints otherwise. He'll be placed on observation awaiting IR US guided paracentesis Review of Systems Review of system: 14 points review of systems were obtained and were negative except to what were mentioned in the HPI. Past Medical History Past Medical History: Coronary Artery Disease (CAD), Heart Failure, COPD, CVA/TIA, Diabetes Mellitus, Hyperlipidemia, Hypertension, Liver Disease, Myocardial Infarction ([place]) Additional Past Medical History / Comment(s): Ischemic cardiomyopathy with EF of 7% per patient, PVCs, CVA 2019 with L sided weakness, chronic low back pain d/t vertebral fractures years ago as well as cervical pinched nerves, DDD, IDDM type II, neuropathy bilateral hands/legs and feet, hepatitis C Last Myocardial Infarction Date:: October 2018 History of Any Multi-Drug Resistant Organisms: MRSA Date of last positivie culture/infection: 11/23/20 MDRO Source:: FOOT MRSA Past Surgical History: Cholecystectomy, Heart Catheterization, Heart Catheteriz ation With Stent, Tonsillectomy Additional Past Surgical History / Comment(s): R heel I&D, colonoscopy. Past Anesthesia/Blood Transfusion Reactions: No Reported Reaction Date of Last Stent Placement:: 2011 Past Psychological History: Anxiety, Bipolar, Depression Smoking Status: Current every day smoker Past Alcohol Use History: None Reported Past Drug Use History: Heroin, Marijuana - Past Family History Mother Family Medical History: Cancer Father Family Medical History: Coronary Artery Disease (CAD), Diabetes Mellitus, Hypertension Medications and Allergies Home Medications Medication Instructions Recorded Confirmed Type Ergocalciferol (Vitamin D2) 1,250 mcg PO WEEKLY 04/06/21 04/23/21 History [Drisdol (50,000 Iu)] Furosemide [Lasix] 40 mg PO DAILY 30 Days #30 tab 04/10/21 04/23/21 Rx Losartan [Cozaar] 50 mg PO DAILY 30 Days #30 tab 04/10/21 04/23/21 Rx Spironolactone [Aldactone] 50 mg PO DAILY 30 Days #60 tab 04/10/21 04/23/21 Rx carvediloL [Coreg*] 12.5 mg PO BID-W/MEALS tab 04/10/21 04/23/21 Rx hydrALAZINE HCL [Apresoline] 25 mg PO TID 30 Days #90 tab 04/10/21 04/23/21 Rx Lisinopril [Prinivil] 10 mg PO DAILY 04/23/21 04/23/21 History Allergies Allergy/AdvReac Type Severity Reaction Status Date / Time Penicillins Allergy Unknown Verified 04/15/21 12:15 Childhood metformin AdvReac Mild Nausea Verified 04/15/21 12:15 Physical Exam Vitals: Vital Signs Temp Pulse Resp BP Pulse Ox 04/24/21 09:42 84 18 159/108 98 04/24/21 07:37 72 18 160/94 95 04/24/21 06:30 74 20 159/95 95 04/24/21 04:26 83 20 157/98 97 04/24/21 02:21 74 20 126/76 95 04/24/21 01:09 86 20 136/80 98 04/23/21 23:57 93 20 125/83 97 04/23/21 23:23 90 20 143/81 97 04/23/21 22:41 100 20 156/104 98 04/23/21 21:44 98.1 F 90 20 161/110 99 Intake and Output 04/23/21 04/24/21 04/24/21 22:59 06:59 14:59 Other: Weight 77.111 kg General: The patient is awake and alert, in no distress Eye: there is normal conjunctiva bilaterally. Neck: The neck is supple, there is no JVD. Cardiovascular: Normal S1-S2, no S3-S4, no murmurs. Respiratory: Lungs clear to auscultation bilaterally Gastrointestinal: Abdomen is distended with evidence of moderate to large ascites and mild to moderate tenderness to palpation Musculoskeletal: There is no pedal edema. Neurological:. Speech is normal. Skin: Skin is warm and dry Results CBC & Chem 7: 04/23/21 22:40 04/23/21 22:40 Labs: Abnormal Lab Results - Last 24 Hours (Table) 04/23/21 04/23/21 Range/Units 22:40 22:40 Chloride 109 H (98-107) mmol/L Glucose 129 H (74-99) mg/dL AST 62 H (17-59) U/L Alkaline Phosphatase 147 H (38-126) U/L Urine Protein 3+ H (Negative) Urine Blood Large H (Negative) Urine RBC 32 H (0-5) /hpf Hyaline Casts 13 H (0-2) /lpf Urine Mucus Few H (None) /hpf Assessment and Plan Assessment: 1. Recurrent ascites, rule out SBP 2. Underlying liver cirrhosis with history of alcohol abuse and hepatitis C 3. Recurrent ascites 4. Underlying cardiomyopathy with known EF of 20% 5. Essential hypertension 6. CODE STATUS, patient is DO NOT INTUBATE/DO NOT RESUSCITATE Today, I reviewed his medication list and lab work results Start patient on IV ceftriaxone 2 g daily until SBP ruled out IR consulted for paracentesis Diuretics regimen adjusted to Lasix 40 mg twice daily and spironolactone 100 mg once a day Hold home dose of losartan and lisinopril, and he weighs 1 of them need to be discontinued Repeat lab work in the morning Had a prolonged discussion with patient regarding goals of care and CODE STATUS. He would like to be DO NOT RESUSCITATE/DO NOT INTUBATE
[2021-04-24 11:31] LABS: INR 1.1 (<1.2); Prothrombin Time 11.7 sec (9.0-12.0)
--- NOTE | 2021-04-24 13:02 | US ---
EXAMINATION TYPE: US paracentesis abd w/image DATE OF EXAM: 04/24/2021 COMPARISON: NONE HISTORY: Ascites. PROCEDURE: Maximal barrier technique was utilized. The skin overlying a suitable pocket of fluid was localized with ultrasound and the overlying skin was prepped and draped. Ultrasound was utilized with sterile technique. Lidocaine was used for local anesthesia and a skin elder made with a scalpel. Catheter was advanced under direct ultrasound guidance into a suitable pocket of fluid and approximately 1.5 liter s of serous fluid were removed. Catheter was withdrawn and hemostasis achieved. There is no immedia te complication; the patient is discharged in stable condition. IMPRESSION: STATUS POST ULTRASOUND GUIDED PARACENTESIS FOR PALLIATION OF ASCITES. A specimen obtaine d for laboratory analysis. THIS PROCEDURE WAS PERFORMED BY THE UNDERSIGNED.
[2021-04-24] MEDS: HYDROcodone/APAP 5-325MG 1 EACH TAB PO PRN ×3 (13:14→21:38)
[2021-04-24] MEDS: SPIRONOLACTONE 25 MG TAB PO SCH (13:15)
[2021-04-24] MEDS: SODIUM CHLORIDE 0.9% 1,000 ML IV SCH (15:27)
[2021-04-24] MEDS: FUROSEMIDE 40 MG TAB PO SCH (15:28)
[2021-04-24] MEDS: carvediloL 12.5 MG TAB PO SCH ×2 (15:28→17:09)
[2021-04-24] MEDS: hydrALAZINE HCL 25 MG TAB PO SCH ×2 (15:28→19:51)
[2021-04-24 15:47] LABS: Appearance,BF Hazy; Nucleated Cells, Body Fluid 140 /uL; RBC, Body Fluid 310 /uL
[2021-04-24 16:21] LABS: Mononuclear WBC,Body Fluid 91 %; Polynuclear WBC,Body Fluid 9 %; Total Cells Counted,Body Fluid 100
[2021-04-25 00:25] LABS: Amylase, Fluid Source Paracentesis Fluid; Glucose, BF Source Paracentesis Fluid; Glucose, Body Fluid 124 mg/dL; Total Protein, Body Fluid 1220 mg/dL
[2021-04-25] MEDS: HYDROcodone/APAP 5-325MG 1 EACH TAB PO PRN ×2 (02:09→07:57)
[2021-04-25 02:42] VITALS: PULSE 75
[2021-04-25] MEDS ORDERED: MORPHINE SULFATE 4 MG/ML SYRINGE IVP STA (05:04)
[2021-04-25] MEDS: SODIUM CHLORIDE 0.9% 1,000 ML IV SCH (05:26)
[2021-04-25 07:31] VITALS: BP 155/87; RESP 18; TEMP 98
[2021-04-25] MEDS: carvediloL 12.5 MG TAB PO SCH (07:56)
[2021-04-25] MEDS: FUROSEMIDE 40 MG TAB PO SCH (07:56)
[2021-04-25] MEDS: SPIRONOLACTONE 25 MG TAB PO SCH (07:56)
[2021-04-25] MEDS: hydrALAZINE HCL 25 MG TAB PO SCH (07:57)
--- NOTE | 2021-04-25 09:15 | P.DS ---
Providers Date of admission: 04/24/21 06:43 Expected date of discharge: 04/25/21 Attending physician: Elda Lind MD Consults: 04/24/21 07:42 Consult Physician Routine Consulting Provider: Gonzalez Panda Consult Reason/Comments: US guided paracentesis Do you want consulting provider notified?: Yes Primary care physician: [facility] Course: This is a 61-year-old male with complex past medical history significant for underlying liver cirrhosis that presented to the hospital with worsening abdominal pain and distention. Patient said that his symptoms started a few days ago and is being getting progressively worse. He denies any fevers or chills. He reported taking his Lasix and spironolactone as prescribed. Patient was hospitalized 2 weeks ago for same problem and underwent paracentesis with approximately 1.1 L removed. He denies any other complaints otherwise. Patient was placed on observation for further management of 1. Recurrent ascites, rule out SBP 2. Underlying liver cirrhosis with history of alcohol abuse and hepatitis C 3. Recurrent ascites 4. Underlying cardiomyopathy with known EF of 20% 5. Essential hypertension Patient underwent paracentesis with approximately 1.5 L of fluid removed. Fluid was traumatic with a lot of RBCs and no evidence of SBP. Patient was covered with IV antibiotic empirically with IV ceftriaxone. He would be discharged home in a stable condition. His diuretic regimen was adjusted to spironolactone 100 mg daily and Lasix 40 mg twice a day. He will follow up outpatient as directed. Patient was seen and evaluated by me on the day of discharge. Physical exam: General: The patient is awake and alert, in no distress Eye: there is normal conjunctiva bilaterally. Neck: The neck is supple, there is no JVD. Cardiovascular: Normal S1-S2, no S3-S4, no murmurs. Respiratory: Lungs clear to auscultation bilaterally Gastrointestinal: Abdomen is soft, nontender Musculoskeletal: There is no pedal edema. Neurological:. Speech is normal. Skin: Skin is warm and dry Patient Condition at Discharge: Poor Plan - Discharge Summary Discharge Rx Participant: No New Discharge Prescriptions: New Furosemide [Lasix] 40 mg PO BID@0900,1600 #60 tab Spironolactone [Aldactone] 100 mg PO DAILY #30 tab HYDROcodone/APAP 5-325MG [[place] 5-325] 1 tab PO Q6HR PRN 3 Days #12 tab PRN Reason: Pain Continue Ergocalciferol (Vitamin D2) [Drisdol (50,000 Iu)] 1,250 mcg PO WEEKLY carvediloL [Coreg*] 12.5 mg PO BID-W/MEALS tab Lisinopril [Prinivil] 10 mg PO DAILY Discontinued Spironolactone [Aldactone] 50 mg PO DAILY 30 Days #60 tab Losartan [Cozaar] 50 mg PO DAILY 30 Days #30 tab Furosemide [Lasix] 40 mg PO DAILY 30 Days #30 tab hydrALAZINE HCL [Apresoline] 25 mg PO TID 30 Days #90 tab Discharge Medication List Ergocalciferol (Vitamin D2) [Drisdol (50,000 Iu)] 1,250 mcg PO WEEKLY 04/06/21 [History] carvediloL [Coreg*] 12.5 mg PO BID-W/MEALS tab 04/10/21 [Rx] Lisinopril [Prinivil] 10 mg PO DAILY 04/23/21 [History] Furosemide [Lasix] 40 mg PO BID@0900,1600 #60 tab 04/25/21 [Rx] HYDROcodone/APAP 5-325MG [[place] 5-325] 1 tab PO Q6HR PRN 3 Days #12 tab 04/25/21 [Rx] Spironolactone [Aldactone] 100 mg PO DAILY #30 tab 04/25/21 [Rx] Follow up Appointment(s)/Referral(s): John Zaman MD [Primary Care Provider] - 1-2 days Patient Instructions/Handouts: Abdominal Pain (ED) Discharge Disposition: HOME SELF-CARE
[2021-04-25 11:41] LABS: African American GFR (CKD) 88.8 (60.0-200.0); Albumin 2.9 g/dL (3.8-4.9); Albumin/Globulin Ratio 1.15 (1.60-3.17); Anion Gap 9.6 mmol/L (4.00-12.00); BUN/Creat Ratio 22.12 Ratio (12.00-20.00); Calcium 8.1 mg/dL (8.7-10.3); Carbon Dioxide 18.6 mmol/L (21.6-31.8); Globulin 2.5 g/dL (1.6-3.3); Non-African American GFR(CKD) 76.6 (60.0-200.0); Potassium 5.3 mmol/L (3.5-5.5); Total Bilirubin 0.3 mg/dL (0.30-1.20); Total Protein 5.5 g/dL (6.2-8.2)
== END 2021-04-25 12:20 | disposition home or self-care (01) ==
LOC: EC 21:42 → 6NMEDSUR 04-24 06:43
PROVIDERS: ADMIT Internal Medicine; ATTEND Internal Medicine
DX: R18.8 Other ascites (principal); K72.10 Chronic hepatic failure without coma; K74.60 Unspecified cirrhosis of liver; B19.20 Unspecified viral hepatitis C without hepatic coma; I25.5 Ischemic cardiomyopathy; I11.0 Hypertensive heart disease with heart failure; I50.9 Heart failure, unspecified; I25.10 Atherosclerotic heart disease of native coronary artery without angina pectoris; I49.3 Ventricular premature depolarization; E11.42 Type 2 diabetes mellitus with diabetic polyneuropathy; F10.11 Alcohol abuse, in remission; J44.9 Chronic obstructive pulmonary disease, unspecified; E78.5 Hyperlipidemia, unspecified; I25.2 Old myocardial infarction; G89.29 Other chronic pain; M54.50 Low back pain, unspecified; I69.954 Hemiplegia and hemiparesis following unspecified cerebrovascular disease affecting left non-dominant side; F31.9 Bipolar disorder, unspecified; F41.9 Anxiety disorder, unspecified; F17.200 Nicotine dependence, unspecified, uncomplicated; Z79.899 Other long term (current) drug therapy; Z88.0 Allergy status to penicillin; Z88.8 Allergy status to other drugs, medicaments and biological substances; Z86.14 Personal history of Methicillin resistant Staphylococcus aureus infection; Z66 Do not resuscitate; Z90.49 Acquired absence of other specified parts of digestive tract; Z95.5 Presence of coronary angioplasty implant and graft; Z98.890 Other specified postprocedural states; Z83.3 Family history of diabetes mellitus; Z82.49 Family history of ischemic heart disease and other diseases of the circulatory system; Z80.9 Family history of malignant neoplasm, unspecified
CPT/HCPCS: 96376; 96374; 99285; 36415; 82150 ×2; 80053 ×2; 89050; 83690; 83735; 85025; 85610; 81001; 87070; 87205; 87075; 82945; 84157; 87635; 49083; G0378 ×2; J2270 ×3; J0360; J0696 ×2

== ENCOUNTER 2021-05-15 10:52 | Emergency (ER) | payer OTHER ==
[2021-05-15 11:06] VITALS: TEMP 97.7
[2021-05-15] MEDS ORDERED: SODIUM CHLORIDE 0.9% 500 ML 500 ML IV STA (11:53)
[2021-05-15] MEDS ORDERED: HYDROmorphone 0.5 MG/0.5 ML SYRINGE IVP STA ×3 (11:53→15:45)
--- NOTE | 2021-05-15 12:07 | ED ---
General Adult HPI - General Source: patient, EMS, RN notes reviewed Mode of arrival: EMS Limitations: physical limitation <Desean Meyer - Last Filed: 05/15/21 13:55> <Raul Orellana - Last Filed: 05/15/21 15:44> - General Chief complaint: Fall Stated complaint: fall Time Seen by Provider: 05/15/21 10:58 - History of Present Illness Initial comments: 51-year-old male presents to the emergency room for a chief complaint of fall. Patient is on hospice. He fell getting out of his bed last night. Patient stat es he was able to get back in bed. However today he told the hospice nurse with his hip was hurting as well as his neck and he had a headache. They wanted him to be evaluated. Patient has no other complaints at this time including shortness of breath, chest pain, abdominal pain, nausea or vomiting, headache, or visual changes. (Desean Meyer) - Related Data Home Medications Medication Instructions Recorded Confirmed Lisinopril [Prinivil] 10 mg PO DAILY 04/23/21 05/15/21 Previous Rx's Medication Instructions Recorded carvediloL [Coreg*] 12.5 mg PO BID-W/MEALS tab 04/10/21 Furosemide [Lasix] 40 mg PO BID@0900,1600 #60 tab 04/25/21 Spironolactone [Aldactone] 100 mg PO DAILY #30 tab 04/25/21 Allergies Allergy/AdvReac Type Severity Reaction Status Date / Time Penicillins Allergy Unknown Verified 05/15/21 12:06 Childhood metformin AdvReac Mild Nausea Verified 05/15/21 12:06 Review of Systems ROS Other: All systems not noted in ROS Statement are negative. <Desean Meyer - Last Filed: 05/15/21 13:55> ROS Other: All systems not noted in ROS Statement are negative. <Raul Orellana - Last Filed: 05/15/21 15:44> ROS Statement: Those systems with pertinent positive or pertinent negative responses have been documented in the HPI. Past Medical History Past Medical History: Coronary Artery Disease (CAD), Heart Failure, COPD, CVA/TIA, Diabetes Mellitus, Hyperlipidemia, Hypertension, Liver Disease, Myocardial Infarction ([place]) Additional Past Medical History / Comment(s): Ischemic cardiomyopathy with EF of 7% per patient, PVCs, CVA 2019 with L sided weakness, chronic low back pain d/t vertebral fractures years ago as well as cervical pinched nerves, DDD, IDDM type II, neuropathy bilateral hands/legs and feet, hepatitis C Last Myocardial Infarction Date:: October 2018 History of Any Multi-Drug Resistant Organisms: MRSA Date of last positivie culture/infection: 11/23/20 MDRO Source:: FOOT MRSA Past Surgical History: Cholecystectomy, Heart Catheterization, Heart Catheterization With Stent, Tonsillectomy Additional Past Surgical History / Comment(s): R heel I&D, colonoscopy. Past Anesthesia/Blood Transfusion Reactions: No Reported Reaction Date of Last Stent Placement:: 2011 Past Psychological History: Anxiety, Bipolar, Depression Smoking Status: Current every day smoker Past Alcohol Use History: None Reported Past Drug Use History: Heroin, Marijuana - Past Family History Mother Family Medical History: Cancer Father Family Medical History: Coronary Artery Disease (CAD), Diabetes Mellitus, Hypertension <Desean Meyer P - Last Filed: 05/15/21 13:55> General Exam Limitations: physical limitation General appearance: alert, in no apparent distress Head exam: Present: atraumatic Eye exam: Present: normal appearance, PERRL, EOMI. Absent: scleral icterus, conjunctival injection ENT exam: Present: normal exam, mucous membranes moist Neck exam: Present: other (c-collar in place) Respiratory exam: Present: normal lung sounds bilaterally. Absent: respiratory distress, wheezes Cardiovascular Exam: Present: regular rate, normal rhythm, normal heart sounds GI/Abdominal exam: Present: soft, normal bowel sounds. Absent: distended, tenderness Extremities exam: Present: tenderness (mild tenderness proximal femur), normal capillary refill (Capillary refill less than 2 seconds), other (sensation). Absent: full ROM (Flexion 45, extension to neutral position of the right hip) Neurological exam: Present: alert <Desean Meyer P - Last Filed: 05/15/21 13:55> Course Vital Signs 05/15/21 05/15/21 05/15/21 11:00 13:26 15:08 Temperature 97.7 F Pulse Rate 101 H 91 89 Respiratory 18 16 18 Rate Blood Pressure 162/98 132/88 144/93 O2 Sat by Pulse 97 94 L 96 Oximetry Medical Decision Making - Lab Data Result diagrams: 05/15/21 11:54 05/15/21 11:54 <Desean eMyer - Last Filed: 05/15/21 13:55> - Lab Data Result diagrams: 05/15/21 11:54 05/15/21 11:54 - Radiology Data Radiology results: report reviewed, image reviewed <Raul Orellana - Last Filed: 05/15/21 15:44> - Medical Decision Making Vitals are stable. CBC CMP unremarkable. CT brain showed no acute intracranial hemorrhage or mass effect or midline shift. There is small amount of air in the anterior soft tissues bilaterally near the level of clavicles or could be intravascular, correlate clinically to exclude soft tissue edema. This is not evident on physical exam. CT cervical spine showed no acute fractures. X-ray of the right hip showed no acute fracture or dislocation in the pelvis right hip or femur.at this time patient is stable for discharge home. Patient does have 24 hour care through hospice as well as a hospital bed. (Desean Meyer) - Lab Data Lab Results 05/15/21 05/15/21 Range/Units 11:54 11:54 WBC 4.0 (3.8-10.6) k/uL RBC 3.48 L (4.30-5.90) m/uL Hgb 11.0 L D (13.0-17.5) gm/dL Hct 33.2 L (39.0-53.0) % MCV 95.6 (80.0-100.0) fL MCH 31.7 (25.0-35.0) pg MCHC 33.2 (31.0-37.0) g/dL RDW 13.8 (11.5-15.5) % Plt Count 109 L (150-450) k/uL MPV 9.3 Neutrophils % 62 % Lymphocytes % 23 % Monocytes % 11 % Eosinophils % 2 % Basophils % 1 % Neutrophils # 2.5 (1.3-7.7) k/uL Lymphocytes # 0.9 L (1.0-4.8) k/uL Monocytes # 0.4 (0-1.0) k/uL Eosinophils # 0.1 (0-0.7) k/uL Basophils # 0.0 (0-0.2) k/uL Sodium 133 L (137-145) mmol/L Potassium 4.3 (3.5-5.1) mmol/L Chloride 107 (98-107) mmol/L Carbon Dioxide 23 (22-30) mmol/L Anion Gap 3 mmol/L BUN 28 H (9-20) mg/dL Creatinine 1.05 (0.66-1.25) mg/dL Est GFR (CKD-EPI)AfAm 88 (>60 ml/min/1.73 sqM) Est GFR (CKD-EPI)NonAf 76 (>60 ml/min/1.73 sqM) Glucose 118 H (74-99) mg/dL Calcium 8.0 L (8.4-10.2) mg/dL - Radiology Data CT of the right hip: Acute mildly displaced fracture right inferior pubic ramus, ascites with anasarca. (Raul Orellana) Disposition Is patient prescribed a controlled substance at d/c from ED?: No Time of Disposition: 13:56 <Desean Meyer - Last Filed: 05/15/21 13:55> <Raul Orellana - Last Filed: 05/15/21 15:44> Clinical Impression: Fall, Hip pain, right, Fracture of pubic ramus Disposition: HOME SELF-CARE Condition: Good Instructions (If sedation given, give patient instructions): Hip Pain (ED) Additional Instructions: Please follow up with primary care in 1-2 days. Return to the ER for any worsening symptoms. Referrals: Salvador Martínez MD [REFERRING] - 1-2 days
[2021-05-15 12:37] LABS: Potassium 4.3 mmol/L (3.5-5.1)
[2021-05-15 12:59] LABS: Basophils % (A) 1 %; Eosinophils # (A) 0.1 k/uL (0-0.7); Eosinophils % (A) 2 %; HCT 33.2 % (39.0-53.0); Lymphocytes # (A) 0.9 k/uL (1.0-4.8); Lymphocytes % (A) 23 %; MCH 31.7 pg (25.0-35.0); MCHC 33.2 g/dL (31.0-37.0); MCV 95.6 fL (80.0-100.0); Mean Platelet Volume 9.3; Monocytes # (A) 0.4 k/uL (0-1.0); Monocytes % (A) 11 %; Neutrophils # (A) 2.5 k/uL (1.3-7.7); Neutrophils % (A) 62 %; Platelet Count 109 k/uL (150-450); RBC 3.48 m/uL (4.30-5.90); RDW 13.8 % (11.5-15.5)
--- NOTE | 2021-05-15 13:01 | CT ---
EXAMINATION TYPE: CT brain cspine wo con DATE OF EXAM: 05/15/2021 COMPARISON: None HISTORY: Pain CT DLP: 1315.3 mGycm Automated exposure control for dose reduction was used. TECHNIQUE: CT scan of the head and cervical spine are performed without contrast. FINDINGS: There is no acute intracranial hemorrhage, mass effect, or midline shift identified. The ventricles and sulci are within normal limits in size. The globes are intact and the visualized sin uses are clear. Cervical spine is visualized in its entirety from C1 through upper thoracic levels and demonstrates s atisfactory alignment without evidence of acute fracture or dislocation. Prevertebral soft tissue ap pears within normal limits. Hypertrophic and degenerative change with multilevel uncovertebral joint hypertrophy. Assessment spinal canal is nondiagnostic due to artifact resolution. Atherosclerotic misty nges of the vascular structures. Air in the subcutaneous tissues anteriorly could be related to the vasculature correlate clinically. There is suggestion of small bilateral pleural effusion. IMPRESSION: 1. There is no acute fracture or dislocation evident in the cervical spine. 2. No acute intracranial hemorrhage, mass effect, or midline shift is seen. 3. There is a small amount of air in the anterior soft tissues bilaterally near the level of clavicle s could be intravascular correlate clinically to exclude soft tissue emphysema. 4. Small bilateral pleural effusion.
--- NOTE | 2021-05-15 13:08 | XR ---
EXAMINATION TYPE: XR Hip RT and AP Pelvis, XR femur RT DATE OF EXAM: 05/15/2021 COMPARISON: CT abdomen and pelvis March 26, 2021 HISTORY: Pain after fall injury. TECHNIQUE: A single AP view of the pelvis is obtained. Two views of the right femur and hip are obtai nancy. FINDINGS: [place] osseous structures are demineralized which is noted to lower radiographic sensitivit y. There is no acute displaced fracture evident in the pelvis. Slight asymmetric narrowing of the rig ht sacroiliac joint is redemonstrated. Pubic symphysis is intact. Moderate bilateral overlying arteri al vascular calcification is seen extending into bilateral groin region. Sclerosis or sclerotic lesio n intertrochanteric level left hip redemonstrated. Two views of right hip show no acute fracture or dislocation. No focal lytic or sclerotic lesion se en in the proximal right femur. Medial arterial vascular calcification is redemonstrated. Overlying b lanket material is present. Images of the right femur show no acute displaced fracture. Moderate to severe medial and posterior a rterial vascular calcification is present. Visualized right knee joint shows moderate medial tibiofem oral compartment narrowing. IMPRESSION: There is no acute fracture or dislocation in the pelvis, right hip, or right femur.
[2021-05-15 15:11] VITALS: BP 144/93; PULSE 89; RESP 18
--- NOTE | 2021-05-15 15:11 | CT ---
EXAMINATION TYPE: CT hip RT wo con DATE OF EXAM: 05/15/2021 COMPARISON: X-ray 05/15/2021 HISTORY: Right sided hip pain. CT DLP: 444 mGycm Automated exposure control for dose reduction was used. FINDINGS: There is mild concentric narrowing of the hip joint. There is hypertrophic change of the acetabulum. Femoral neck is intact. There is a subtle cortical step-off involving the inferior pubic ramus on the right compatible with a fracture. There is free fluid in the abdomen pelvis. Correlate for ascites. Subcutaneous edema and atherosclerotic change of the vasculature. Hypertrophic arthropathy of the SI joint. IMPRESSION: 1. Acute mildly displaced fracture right inferior pubic ramus 2. Ascites with anasarca
== END 2021-05-15 15:58 | disposition home or self-care (01) ==
LOC: EC 10:52
DX: S32.501A Unspecified fracture of right pubis, initial encounter for closed fracture (principal); S32.591A Other specified fracture of right pubis, initial encounter for closed fracture; J44.9 Chronic obstructive pulmonary disease, unspecified; E11.9 Type 2 diabetes mellitus without complications; I11.0 Hypertensive heart disease with heart failure; I50.9 Heart failure, unspecified; I25.2 Old myocardial infarction; I25.10 Atherosclerotic heart disease of native coronary artery without angina pectoris; F17.200 Nicotine dependence, unspecified, uncomplicated; Z86.73 Personal history of transient ischemic attack (TIA), and cerebral infarction without residual deficits; Z95.5 Presence of coronary angioplasty implant and graft; W06.XXXA Fall from bed, initial encounter; Y92.009 Unspecified place in unspecified non-institutional (private) residence as the place of occurrence of the external cause
CPT/HCPCS: 36415; 80048; 85025; 73502; 73552; 72125; 70450; 73700; 99285; 96374; 96376; J1170

== ENCOUNTER 2021-06-14 17:48 | Inpatient (IN) | payer OTHER ==
--- NOTE | 2021-06-14 19:21 | ED ---
General Adult HPI - General Chief complaint: Recheck/Abnormal Lab/Rx Stated complaint: Hospice Time Seen by Provider: 06/14/21 17:53 Source: patient, EMS Mode of arrival: EMS Limitations: no limitations - History of Present Illness Initial comments: Dictation was produced using [employer] dictation software. please excuse any grammatical, word or spelling errors. Chief Complaint: 61-year-old male presents to emergency department for loitering History of Present Illness: Is a 61-year-old male is allegedly hospice. Patient supposedly was just kicked out of his friend's house where he is currently residing. Supposedly patient went to a nearby business. Patient allegedly did not want to leave when the business closed and enforcement was called. Patient isn't brought to the emergency department. Patient denies any medical compl aints. States that he has neck and back and lower extremity pain that's been chronic. The ROS documented in this emergency department record has been reviewed and confirmed by me. Those systems with pertinent positive or negative responses have been documented in the HPI. All other systems are other negative and/or noncontributory. PHYSICAL EXAM: General Impression: Alert and oriented x3, not in acute distress HEENT: Normocephalic atraumatic, extra-ocular movements intact, pupils equal and reactive to light bilaterally, mucous membranes moist. Cardiovascular: Heart regular rate and rhythm Chest: Able to complete full sentences, no retractions, no tachypnea Abdomen: abdomen soft, non-tender, non-distended, no organomegaly Musculoskeletal: Pulses present and equal in all extremities, 1+ pitting edema bilateral lower extremities Motor: no focal deficits noted Neurological: CN II-XII grossly intact, no focal motor or sensory deficits noted Skin: Intact with no visualized rashes Psych: Normal affect and mood ED course: 61-year-old hospice patient for end-stage liver disease presents to the emergency department for loitering. He does not have a safe disposition vital signs upon arrival are within acceptable limits. Laboratory evaluation obtained. CBC is unremarkable. Metabolic panel within acceptable limits. There is a safe disposition for patient. Patient will be admitted with social work consult for placement. EKG interpretation: Ventricular rate 80, normal sinus rhythm,. 170, QRS 86, QTC 454. No [place] prolongation, no QTC prolongation, no ST or T-wave changes noted. EKG compared to 01/18/2021 showing no changes. Overall, this EKG is unremarkable - Related Data Home Medications Medication Instructions Recorded Confirmed Lisinopril [Prinivil] 10 mg PO DAILY 04/23/21 05/15/21 Previous Rx's Medication Instructions Recorded carvediloL [Coreg*] 12.5 mg PO BID-W/MEALS tab 04/10/21 Furosemide [Lasix] 40 mg PO BID@0900,1600 #60 tab 04/25/21 Spironolactone [Aldactone] 100 mg PO DAILY #30 tab 04/25/21 Allergies Allergy/AdvReac Type Severity Reaction Status Date / Time Penicillins Allergy Unknown Verified 06/14/21 19:02 Childhood metformin AdvReac Mild Nausea Verified 06/14/21 19:02 Review of Systems ROS Statement: Those systems with pertinent positive or pertinent negative responses have been documented in the HPI. ROS Other: All systems not noted in ROS Statement are negative. Past Medical History Past Medical History: Coronary Artery Disease (CAD), Heart Failure, COPD, CVA/TIA, Diabetes Mellitus, Hyperlipidemia, Hypertension, Liver Disease, Myocardial Infarction ([place]) Additional Past Medical History / Comment(s): Ischemic cardiomyopathy with EF of 7% per patient, PVCs, CVA 2019 with L sided weakness, chronic low back pain d/t vertebral fractures years ago as well as cervical pinched nerves, DDD, IDDM type II, neuropathy bilateral hands/legs and feet, hepatitis C Last Myocardial Infarction Date:: October 2018 History of Any Multi-Drug Resistant Organisms: MRSA Date of last positivie culture/infection: 11/23/20 MDRO Source:: FOOT MRSA Past Surgical History: Cholecystectomy, Heart Catheterization, Heart Catheterization With Stent, Tonsillectomy Additional Past Surgical History / Comment(s): R heel I&D, colonoscopy. Past Anesthesia/Blood Transfusion Reactions: No Reported Reaction Date of Last Stent Placement:: 2011 Past Psychological History: Anxiety, Bipolar, Depression Smoking Status: Current every day smoker Past Alcohol Use History: None Reported Past Drug Use History: Heroin, Marijuana - Past Family History Mother Family Medical History: Cancer Father Family Medical History: Coronary Artery Disease (CAD), Diabetes Mellitus, Hypertension General Exam Limitations: no limitations Course Vital Signs 06/14/21 18:58 Temperature 98.2 F Pulse Rate 86 Respiratory 18 Rate Blood Pressure 146/91 O2 Sat by Pulse 93 L Oximetry Medical Decision Making - Lab Data Result diagrams: 06/14/21 19:51 06/14/21 19:51 Lab Results 06/14/21 06/14/21 Range/Units 19:51 19:51 WBC 4.5 (3.8-10.6) k/uL RBC 4.40 (4.30-5.90) m/uL Hgb 13.5 (13.0-17.5) gm/dL Hct 42.2 (39.0-53.0) % MCV 95.9 (80.0-100.0) fL MCH 30.6 (25.0-35.0) pg MCHC 31.9 (31.0-37.0) g/dL RDW 13.9 (11.5-15.5) % Plt Count 158 (150-450) k/uL MPV 10.0 Neutrophils % 61 % Lymphocytes % 24 % Monocytes % 10 % Eosinophils % 2 % Basophils % 1 % Neutrophils # 2.8 (1.3-7.7) k/uL Lymphocytes # 1.1 (1.0-4.8) k/uL Monocytes # 0.5 (0-1.0) k/uL Eosinophils # 0.1 (0-0.7) k/uL Basophils # 0.0 (0-0.2) k/uL Hypochromasia Slight Sodium 135 L (137-145) mmol/L Potassium 5.0 (3.5-5.1) mmol/L Chloride 106 (98-107) mmol/L Carbon Dioxide 21 L (22-30) mmol/L Anion Gap 8 mmol/L BUN 25 H (9-20) mg/dL Creatinine 1.22 (0.66-1.25) mg/dL Est GFR (CKD-EPI)AfAm 73 (>60 ml/min/1.73 sqM) Est GFR (CKD-EPI)NonAf 63 (>60 ml/min/1.73 sqM) Glucose 132 H (74-99) mg/dL Calcium 8.5 (8.4-10.2) mg/dL Magnesium 1.9 (1.6-2.3) mg/dL Total Bilirubin 1.0 (0.2-1.3) mg/dL AST 49 (17-59) U/L ALT 16 (4-49) U/L Alkaline Phosphatase 158 H (38-126) U/L Total Protein 7.1 (6.3-8.2) g/dL Albumin 3.4 L (3.5-5.0) g/dL Disposition Clinical Impression: Debility Disposition: ADMITTED IP TO THIS HOSP Condition: Good Referrals: None,Stated [Primary Care Provider] - 1-2 days
[2021-06-14 20:05] LABS: Basophils % (A) 1 %; Eosinophils # (A) 0.1 k/uL (0-0.7); Eosinophils % (A) 2 %; HCT 42.2 % (39.0-53.0); HGB 13.5 gm/dL (13.0-17.5); Hypochromasia Slight; Lymphocytes # (A) 1.1 k/uL (1.0-4.8); Lymphocytes % (A) 24 %; MCH 30.6 pg (25.0-35.0); MCHC 31.9 g/dL (31.0-37.0); MCV 95.9 fL (80.0-100.0); Monocytes # (A) 0.5 k/uL (0-1.0); Monocytes % (A) 10 %; Neutrophils # (A) 2.8 k/uL (1.3-7.7); Neutrophils % (A) 61 %; Platelet Count 158 k/uL (150-450); RDW 13.9 % (11.5-15.5); WBC 4.5 k/uL (3.8-10.6)
[2021-06-14 20:25] LABS: Albumin 3.4 g/dL (3.5-5.0); Calcium 8.5 mg/dL (8.4-10.2); Magnesium 1.9 mg/dL (1.6-2.3); Total Protein 7.1 g/dL (6.3-8.2)
[2021-06-14] MEDS ORDERED: NALOXONE 0.4 MG/ML 1 ML VIAL IV PRN (20:53)
[2021-06-15] MEDS: HYDROmorphone 1 MG/ML 1 ML SYRINGE IVP STA ×2 (03:14→03:21)
[2021-06-15] MEDS: HYDROmorphone 1 MG/ML 1 ML SYRINGE IVP PRN ×4 (07:52→21:25)
[2021-06-15] MEDS: HYDROcodone/APAP 5-325MG 1 EACH TAB PO PRN ×2 (13:19→20:34)
[2021-06-15] MEDS ORDERED: traMADol 50 MG TAB PO PRN (13:29)
[2021-06-15] MEDS ORDERED: FUROSEMIDE 10 MG/ML 4 ML VIAL IV SCH (16:13)
--- NOTE | 2021-06-15 16:35 | XR ---
EXAMINATION TYPE: XR chest 1V portable DATE OF EXAM: 06/15/2021 4:25 PM COMPARISON:Chest radiographs from 821 CLINICAL INDICATION:Male, 61 years old with history of chf, TECHNIQUE: Frontal view of the chest. FINDINGS: Lungs/Pleura: There is no evidence of focal consolidation, or pneumothorax. Minimal blunting of the c ostophrenic angles bilaterally. Pulmonary vascularity: Pulmonary vascular congestion. Heart/mediastinum: Cardiomediastinal silhouette is enlarged and stable given differences in technique . Musculoskeletal: No acute osseous pathology. IMPRESSION: Congestive heart failure changes with cardiomegaly, pulmonary vascular congestion and trace bilateral pleural effusions. Correlate with BNP.
[2021-06-15] MEDS: SPIRONOLACTONE 25 MG TAB PO SCH (16:37)
[2021-06-15] MEDS: carvediloL 12.5 MG TAB PO SCH (16:38)
[2021-06-15] MEDS: PANTOPRAZOLE 40 MG TABLET PO SCH (16:40)
--- NOTE | 2021-06-15 18:25 | HP ---
HISTORY AND PHYSICAL CHIEF COMPLAINT: Weakness and some shortness of breath. HISTORY OF PRESENT ILLNESS: This 61-year-old gentleman with a past medical history of multiple problems including alcoholic cirrhosis of the liver, history of cardiomyopathy, history of CHF, COPD, diabetes, hypertension, hyperlipidemia, being followed by no primary physician apparently currently. Apparently the patient was on hospice and the caregiver got arrested and the patient apparently also kicked out from his friend's house and the patient presented to [facility] with multiple complaints, as mentioned earlier. Apparently the hospice company has also been changed per staff at this time. There is no history of fever, rigors. No history of headache, loss of consciousness, seizures. Patient has history of extensive EtOH and polysubstance abuse, including PAST MEDICAL HISTORY: History of CAD, CHF, COPD, CVA, diabetes type 2, hypertension, hyperlipidemia, history of liver disease, history of myocardial infarction. MEDICATIONS: [place] 5 mg, Dilaudid, Narcan, Ultram. ALLERGIES: PENICILLIN, METFORMIN. FAMILY HISTORY: History of breast cancer in the family. SOCIAL HISTORY: History of substance abuse as mentioned. History of smoking, history of alcohol. History of THC. REVIEW OF SYSTEMS: ENT: Diminished vision. Diminished hearing. CARDIOVASCULAR: As mentioned earlier. RESPIRATION: As mentioned earlier. GI as mentioned earlier. : No dysuria. NERVOUS SYSTEM: No numbness or weakness. ALLERGY/IMMUNOLOGY: No asthma or hayfever. MUSCULOSKELETAL as mentioned earlier. HEMATOLOGY/ONCOLOGY: No history of anemia. ENDOCRINE: No history of diabetes or hypothyroidism. CONSTITUTIONAL: As mentioned earlier. DERMATOLOGY: Negative. . RHEUMATOLOGY: Negative. PSYCHIATRY as mentioned earlier. PHYSICAL EXAMINATION: Alert and oriented x2. Pulse is 89. Blood pressure 153/100, temperature 97.3, pulse ox 98% on room air. HEENT: Conjunctivae normal. Oral mucosa moist. NECK is no jugular venous distention. No carotid bruit. No lymph node enlargement. CARDIOVASCULAR: S1, S2 muffled. RESPIRATION: A few scattered rhonchi. ABDOMEN: Soft, obese, nontender. No mass palpable. LEGS: No edema. No swelling. NERVOUS SYSTEM: Higher functions as mentioned earlier. Moves all 4 limbs. No focal motor or sensory deficits. LYMPHATICS: No lymph nodes palpable in the neck, axillae or groin. SKIN: No ulcer, no rash and no bleeding. JOINTS: No active deforming arthropathy. LABS: CBC normal. Sodium 135. Other labs are noted. ASSESSMENT: 1. Possible congestive heart failure acute exacerbation with acute on chronic systolic dysfunction, ejection fraction 20% to 25%. 2. Possible cardiomyopathy. 3. History of cirrhosis of the liver and recurrent refractory ascites. 4. History of coronary artery disease. 5. History of chronic obstructive pulmonary disease. 6. History of cerebrovascular accident, transient ischemic attack. 7. Diabetes mellitus, type 2. 8. Hypertension. 9. Hyperlipidemia. 10.History of chronic liver disease. 11.History of myocardial infarction. 12.History of ischemic cardiomyopathy. 13.History of CVI. 14.History of chronic low back pain. 15.History of degenerative joint disease. 16.History of peripheral neuropathy. 17.History of EtOH abuse. 18.History of MRSA. 19.History of polysubstance abuse. 20.History of coronary artery disease. 21.Anxiety/bipolar depression. 22.NO CODE, NO CPR. NO VENT. 23.On hospice care. 24.Continued ongoing nicotine dependence. RECOMMENDATIONS AND DISCUSSION: This 61-year-old gentleman who presented with multiple complex medical issues, we will monitor the patient closely. I would recommend portable chest x-ray and monitor fluid and electrolytes balance closely. Chest x-ray shows some fluid level. I would recommend intravenous Lasix. Symptomatic treatment will be continued including pain medications. I would also recommend Electric Meter Installer and Case Management evaluation to arrange for outpatient hospice. Seems like the patient has significant social issues with very poor social support at this time, as mentioned earlier. We will continue to monitor. Prognosis extremely guarded because of multiple complex medical issues in this individual. Further recommendations to follow. I would recommend the patient to follow up with primary physician closely after discharge. MMTRACE / ZHOUN: [id number] / NISSA
[2021-06-15] MEDS: FUROSEMIDE 10 MG/ML 4 ML VIAL IV SCH ×2 (21:24→21:25)
[2021-06-15] MEDS: ALPRAZolam 0.25 MG TAB PO PRN (23:11)
[2021-06-16] MEDS: HYDROmorphone 1 MG/ML 1 ML SYRINGE IVP PRN ×6 (01:22→21:49)
[2021-06-16] MEDS: HYDROcodone/APAP 5-325MG 1 EACH TAB PO PRN ×2 (04:01→20:30)
[2021-06-16] MEDS: FUROSEMIDE 10 MG/ML 4 ML VIAL IV SCH ×2 (05:56→17:31)
[2021-06-16] MEDS: PANTOPRAZOLE 40 MG TABLET PO SCH (08:14)
[2021-06-16] MEDS: lisinopriL 10 MG TAB PO SCH (08:14)
[2021-06-16] MEDS: SPIRONOLACTONE 25 MG TAB PO SCH (08:14)
[2021-06-16] MEDS: carvediloL 12.5 MG TAB PO SCH ×2 (08:14→17:31)
[2021-06-16 10:44] VITALS: BMI 29.0
--- NOTE | 2021-06-16 19:29 | PN ---
PROGRESS NOTE DATE OF SERVICE: 06/16/2021 This 61-year-old gentleman who was admitted with weakness and shortness of breath is being evaluated for possible CHF, acute exacerbation. The patient has possibly cardiomyopathy of undetermined significance. The chest x-ray which I reviewed personally showed significant cardiomegaly as well as fluid overload. Past medical reviewed. Patient is started on Lasix at this time. REVIEW OF SYSTEMS: CARDIOVASCULAR SYSTEM: No angina. RESPIRATION: As mentioned earlier. GI: As mentioned earlier. : No dysuria. NERVOUS SYSTEM: No numbness, weakness. CURRENT MEDICATIONS: Reviewed. They include [place], Xanax, Coreg, Lasix, Dilaudid, Zestril. Doses and other medications are reviewed. PHYSICAL EXAMINATION: Patient alert and oriented x3. Pulse 76, blood pressure 127/86, respiration 18, temperature 97.2, pulse ox 99% on room air. HEENT: Conjunctivae normal. NECK: No jugular venous distention. CARDIOVASCULAR: S1, S2 muffled. RESPIRATION: Breath sounds diminished at the bases. A few scattered rhonchi. ABDOMEN: Soft, nontender. LEGS: No edema. No swelling. LABS: CBC within normal limits. Sodium 130, potassium 5. ASSESSMENT: 1. Congestive heart failure, acute exacerbation, with acute on chronic systolic dysfunction, ejection fraction 20% to 25%. 2. Possible cardiomyopathy. 3. History of cirrhosis of the liver and current refractory ascites. 4. History of coronary artery disease. 5. History of chronic obstructive pulmonary disease. 6. History of cerebrovascular accident, transient ischemic attack. 7. Diabetes mellitus, type 2. 8. Gait dysfunction. 9. Hypertension. 10.Hyperlipidemia. 11.History of chronic liver disease. 12.History of myocardial infarction. 13.History of ischemic cardiomyopathy. 14.History of cerebrovascular accident. 15.History of chronic low back pain. 16.History of degenerative joint disease. 17.History of peripheral neuropathy. 18.History of EtOH abuse. 19.History of MRSA. 20.History of polysubstance abuse. 21.History of coronary artery disease. 22.Anxiety, bipolar, depression. 23.Was previously on hospice care. 24.Social issues. 25.Continued ongoing nicotine dependence. 26.NO CODE, NO CPR, NO VENT. RECOMMENDATIONS AND DISCUSSION: I recommend to continue current medications, continue with the monitoring, symptomatic treatment. Otherwise at this time I recommend continuing with diuretics. Otherwise, psychiatric social worker evaluation for possible placement. I will continue the IV diuretics at this time. Guarded prognosis. Further recommendations to follow. See orders for details. MMODL / IJN: [id number] /
[2021-06-16 20:44] LABS: Glucose,Whole Blood 169 mg/dL (75-99)
[2021-06-17] MEDS: HYDROmorphone 1 MG/ML 1 ML SYRINGE IVP PRN ×5 (01:38→19:45)
[2021-06-17] MEDS: TEMAZEPAM 15 MG CAP PO PRN (02:16)
[2021-06-17] MEDS: HYDROcodone/APAP 5-325MG 1 EACH TAB PO PRN (03:06)
[2021-06-17] MEDS: FUROSEMIDE 10 MG/ML 4 ML VIAL IV SCH ×2 (05:12→16:29)
[2021-06-17 07:17] LABS: Glucose,Whole Blood 126 mg/dL (75-99)
[2021-06-17] MEDS: ALPRAZolam 0.25 MG TAB PO PRN (08:48)
[2021-06-17] MEDS: lisinopriL 10 MG TAB PO SCH (08:48)
[2021-06-17] MEDS: carvediloL 12.5 MG TAB PO SCH ×2 (08:48→16:29)
[2021-06-17] MEDS: PANTOPRAZOLE 40 MG TABLET PO SCH (08:48)
[2021-06-17] MEDS: SPIRONOLACTONE 25 MG TAB PO SCH (08:48)
[2021-06-17 10:04] LABS: Basophils # (A) 0.04 X 10*3/uL (0.00-0.10); Basophils % (A) 1.1 %; Eosinophils % (A) 2.8 %; HCT 37.7 % (39.6-50.0); HGB 11.7 g/dL (13.0-17.0); Lymphocytes # (A) 0.98 X 10*3/uL (0.90-5.00); Lymphocytes % (A) 27.8 %; MCH 28.8 pg (27.0-32.0); MCV 92.9 fL (80.0-97.0); Mean Platelet Volume 11.3 fL (9.5-12.2); Monocytes # (A) 0.43 X 10*3/uL (0.20-1.00); Monocytes % (A) 12.2 %; Neutrophils # (A) 1.97 X 10*3/uL (1.80-7.70); Neutrophils % (A) 55.8 %; Platelet Count 122 X 10*3/uL (140-440); RBC 4.06 X 10*6/uL (4.40-5.60); RDW 13.5 % (11.5-14.5); WBC 3.53 X 10*3/uL (4.50-10.00)
[2021-06-17 10:27] LABS: African American GFR (CKD) 52.7 (60.0-200.0); Anion Gap 11.8 mmol/L (10.00-18.00); BUN/Creat Ratio 18.44 Ratio (12.00-20.00); Blood Urea Nitrogen 29.5 mg/dL (9.0-27.0); Calcium 8.5 mg/dL (8.7-10.3); Non-African American GFR(CKD) 45.5 (60.0-200.0); Potassium 4.8 mmol/L (3.5-5.5)
[2021-06-17 11:35] LABS: Glucose,Whole Blood 249 mg/dL (75-99)
[2021-06-17 16:51] LABS: Glucose,Whole Blood 118 mg/dL (75-99)
--- NOTE | 2021-06-17 18:39 | PN ---
PROGRESS NOTE DATE OF SERVICE: 06/17/2021 This 61-year-old gentleman who was admitted with some weakness and shortness of breath had possibly CHF, acute exacerbation. Patient is being closely monitored. ECF rehab is also being explored. No chest pain. No palpitations. No fever. On exam, alert and oriented x2. Pulse 58, blood pressure 115/72, respiration 16, temperature 97.4, pulse ox 98% on room air. HEENT: Conjunctivae normal. NECK: No jugular venous distention. CARDIOVASCULAR: S1, S2 muffled. RESPIRATION: Breath sounds diminished at the bases. A few scattered rhonchi. ABDOMEN: Soft, non-tender. LEGS: No edema. No swelling. NERVOUS SYSTEM: No focal deficit. Labs show WBC 3.5, hemoglobin 11.7, creatinine is 1.6. The chest x-ray which was personally reviewed by me showed significant cardiomegaly. ASSESSMENT: 1. Congestive heart failure, acute exacerbation, with acute on chronic systolic dysfunction, ejection fraction about 20% to 25%. 2. Possible cardiomyopathy. 3. Increased elevated creatinine with possible acute renal failure, acute tubular necrosis. 4. History of cirrhosis of the liver and recurrent refractory ascites. 5. History of coronary artery disease. 6. History of chronic obstructive pulmonary disease. 7. History of cerebrovascular accident, transient ischemic attack. 8. Diabetes mellitus, type 2. 9. Hypertension. 10.Hyperlipidemia. 11.History of chronic liver disease. 12.History of myocardial infarction. 13.History of ischemic cardiomyopathy. 14.History of cerebrovascular accident. 15.History of chronic low back pain. 16.History of degenerative joint disease. 17.History of peripheral neuropathy. 18.History of EtOH abuse. 19.History of MRSA. 20.History of polysubstance abuse. 21.Coronary artery disease. 22.Anxiety, depression, bipolar. 23.Continued ongoing nicotine dependence. 24.NO CODE, NO CPR, NO VENT. 25.Was on hospice. RECOMMENDATIONS AND DISCUSSION: I recommend to continue current medications, continue with the monitoring, symptomatic treatment. Otherwise at this time director of social services and Case Management have to evaluate the home situation. I would recommend changing the dose of diuretics to p.o. and continue to monitor. Guarded prognosis. Further recommendations to follow. I would order a BNP also. Patient was previously on hospice care. MMODL / IJN: [id number] /
[2021-06-17 20:48] LABS: Glucose,Whole Blood 149 mg/dL (75-99)
[2021-06-18] MEDS: HYDROmorphone 1 MG/ML 1 ML SYRINGE IVP PRN ×6 (00:06→22:10)
[2021-06-18] MEDS: TEMAZEPAM 15 MG CAP PO PRN (02:11)
[2021-06-18 06:53] LABS: Glucose,Whole Blood 138 mg/dL (75-99)
[2021-06-18] MEDS: FUROSEMIDE 20 MG TAB PO SCH (07:44)
[2021-06-18] MEDS: lisinopriL 10 MG TAB PO SCH (07:44)
[2021-06-18] MEDS: SPIRONOLACTONE 25 MG TAB PO SCH (07:44)
[2021-06-18] MEDS: carvediloL 12.5 MG TAB PO SCH ×2 (07:44→17:12)
[2021-06-18] MEDS: PANTOPRAZOLE 40 MG TABLET PO SCH (07:44)
[2021-06-18] MEDS: HYDROcodone/APAP 5-325MG 1 EACH TAB PO PRN (08:32)
[2021-06-18 09:33] LABS: African American GFR (CKD) 51.2 (60.0-200.0); Anion Gap 13.5 mmol/L (10.00-18.00); BUN/Creat Ratio 20.67 Ratio (12.00-20.00); Blood Urea Nitrogen 33.9 mg/dL (9.0-27.0); Carbon Dioxide 21.2 mmol/L (20.0-27.5); Non-African American GFR(CKD) 44.2 (60.0-200.0); Potassium 4.5 mmol/L (3.5-5.5)
[2021-06-18 10:17] LABS: Basophils # (A) 0.03 X 10*3/uL (0.00-0.10); Basophils % (A) 0.9 %; Eosinophils # (A) 0.08 X 10*3/uL (0.04-0.35); Eosinophils % (A) 2.4 %; HCT 31.8 % (39.6-50.0); HGB 10.1 g/dL (13.0-17.0); Lymphocytes # (A) 0.85 X 10*3/uL (0.90-5.00); Lymphocytes % (A) 25.6 %; MCH 29.4 pg (27.0-32.0); MCHC 31.8 g/dL (32.0-37.0); MCV 92.4 fL (80.0-97.0); Mean Platelet Volume 12.3 fL (9.5-12.2); Monocytes # (A) 0.45 X 10*3/uL (0.20-1.00); Monocytes % (A) 13.6 %; Neutrophils % (A) 57.2 %; Platelet Count 99 X 10*3/uL (140-440); RBC 3.44 X 10*6/uL (4.40-5.60); RDW 13.5 % (11.5-14.5); WBC 3.32 X 10*3/uL (4.50-10.00)
[2021-06-18 11:49] LABS: Glucose,Whole Blood 212 mg/dL (75-99)
[2021-06-18 16:35] LABS: Glucose,Whole Blood 199 mg/dL (75-99)
--- NOTE | 2021-06-18 16:40 | XR ---
EXAMINATION TYPE: XR chest 1V DATE OF EXAM: 06/18/2021 COMPARISON: 06/15/2021 HISTORY: 61-year-old male CHF TECHNIQUE: Single frontal view of the chest is obtained. FINDINGS: Heart is enlarged. There are trace bilateral pleural effusions with blunted costophrenic angles. No f rank consolidation. IMPRESSION: Cardiomegaly and trace bilateral pleural effusions. Findings may reflect sequela of mild CHF. No abdifatah k pulmonary edema.
[2021-06-18 21:10] LABS: Glucose,Whole Blood 197 mg/dL (75-99)
[2021-06-19] MEDS: HYDROmorphone 1 MG/ML 1 ML SYRINGE IVP PRN ×5 (02:26→20:33)
[2021-06-19 07:10] LABS: Glucose,Whole Blood 144 mg/dL (75-99)
[2021-06-19] MEDS: SPIRONOLACTONE 25 MG TAB PO SCH (07:42)
[2021-06-19] MEDS: carvediloL 12.5 MG TAB PO SCH ×2 (07:43→16:36)
[2021-06-19] MEDS: PANTOPRAZOLE 40 MG TABLET PO SCH (07:43)
[2021-06-19] MEDS: FUROSEMIDE 20 MG TAB PO SCH (07:43)
[2021-06-19 10:01] LABS: African American GFR (CKD) 52.3 (60.0-200.0); Anion Gap 9.9 mmol/L (10.00-18.00); BUN/Creat Ratio 22.8 Ratio (12.00-20.00); Blood Urea Nitrogen 36.7 mg/dL (9.0-27.0); Calcium 8.5 mg/dL (8.7-10.3); Carbon Dioxide 26.1 mmol/L (20.0-27.5); Non-African American GFR(CKD) 45.2 (60.0-200.0); Potassium 5.5 mmol/L (3.5-5.5)
[2021-06-19 11:28] LABS: Glucose,Whole Blood 180 mg/dL (75-99)
--- NOTE | 2021-06-19 15:28 | P.PN ---
Subjective Progress Note Date: 06/18/21 06/18/2021 Patient evaluated today resting in the bed. He has no complaints, referrals were sent for placement. Labs today include a white blood cell count of 3.32, hemoglobin 10.1, platelet count 99, BUN of 33.9, creatinine 1.6, glucose in the 120s, proBNP elevated at 16,900, he was transitioned to oral Lasix yesterday. Vital signs include a temp of 97.8, heart rate 69, blood pressure 155/92 he is 99% on room air. Does report some pain in his left hip states that he fell recently, and PT evaluation is recommending [facility] on discharge. ROS Constitutional: Denied any fatigue denied any fever. Cardio vascular: denied any chest pain, palpitations Gastrointestinal denied any nausea vomiting Pulmonary: Denied any shortness of breath cough Neurologic denied any new focal deficits All inpatient medications were reviewed and appropriate changes in these medications as dictated in the interval history and assessment and plan. PHYSICAL EXAMINATION: GENERAL: The patient is alert and oriented x3, not in any acute distress. Well developed, well nourished. HEENT: Pupils are round and equally reacting to light. EOMI. No scleral icterus. No conjunctival pallor. Normocephalic, atraumatic. No pharyngeal erythema. No thyromegaly. Poor dentition CARDIOVASCULAR: S1 and S2 present. No murmurs, rubs, or gallops. PULMONARY: Chest is clear to auscultation, no wheezing or crackles. ABDOMEN: Soft, nontender, distended, normoactive bowel sounds. No palpable organomegaly. MUSCULOSKELETAL: No joint swelling or deformity. EXTREMITIES: No cyanosis, clubbing, or pedal edema. NEUROLOGICAL: Gross neurological examination did not reveal any focal deficits. SKIN: No rashes. Assessment and Plan Assessment Congestive heart failure, acute exacerbation with acute on chronic systolic dysfunction, ejection fraction about 20-25% Possible cardiomyopathy Acute renal failure secondary to acute tubular necrosis most likely, baseline creatinine about 1.0, we will avoid nephrotoxic agents History of cirrhosis of the liver and recurrent refractory ascites Coronary artery disease History of COPD not in acute exacerbation History of CVA, TIA, diabetes mellitus type 2 with hyperglycemia Hypertension Hyperlipidemia History of myocardial infarction History of EtOH abuse History of polysubstance abuse Anxiety, depression, bipolar Chronic nicotine dependence GI prophylaxis: Protonix DO NOT RESUSCITATE Plan Continue by mouth Lasix Discontinue lisinopril Repeat labs in the morning Hopefully discharge tomorrow if labs improve. Objective - Vital Signs Vital signs: Vital Signs Temp 97.8 F 06/18/21 07:00 Pulse 69 06/18/21 07:00 Resp 16 06/18/21 02:00 BP 155/92 06/18/21 07:00 Pulse Ox 99 06/18/21 07:00 Intake & Output 06/17/21 06/18/21 06/18/21 18:59 06:59 18:59 Other: Voiding Method Urinal Urinal # Voids 3 3 # Bowel Movements 1 - Labs CBC & Chem 7: 06/18/21 03:15 06/18/21 03:15 Labs: Abnormal Lab Results - Last 24 Hours (Table) 06/17/21 06/17/21 06/17/21 Range/Units 05:35 05:35 11:33 WBC 3.53 L (4.50-10.00) X 10*3/uL RBC 4.06 L (4.40-5.60) X 10*6/uL Hgb 11.7 L (13.0-17.0) g/dL Hct 37.7 L (39.6-50.0) % MCHC 31.0 L (32.0-37.0) g/dL Plt Count 122 L (140-440) X 10*3/uL BUN 29.5 H (9.0-27.0) mg/dL Creatinine 1.6 H (0.6-1.5) mg/dL Est GFR (CKD-EPI)AfAm 52.7 L (60.0-200.0) Est GFR (CKD-EPI)NonAf 45.5 L (60.0-200.0) BUN/Creatinine Ratio (12.00-20.00) Ratio Glucose 118 H (70-110) mg/dL POC Glucose (mg/dL) 249 H (75-99) mg/dL Calcium 8.5 L (8.7-10.3) mg/dL 06/17/21 06/17/21 06/18/21 Range/Units 16:50 20:32 03:15 WBC (4.50-10.00) X 10*3/uL RBC (4.40-5.60) X 10*6/uL Hgb (13.0-17.0) g/dL Hct (39.6-50.0) % MCHC (32.0-37.0) g/dL Plt Count (140-440) X 10*3/uL BUN 33.9 H (9.0-27.0) mg/dL Creatinine 1.6 H (0.6-1.5) mg/dL Est GFR (CKD-EPI)AfAm 51.2 L (60.0-200.0) Est GFR (CKD-EPI)NonAf 44.2 L (60.0-200.0) BUN/Creatinine Ratio 20.67 H (12.00-20.00) Ratio Glucose 120 H (70-110) mg/dL POC Glucose (mg/dL) 118 H 149 H (75-99) mg/dL Calcium 8.0 L (8.7-10.3) mg/dL 06/18/21 Range/Units 06:52 WBC (4.50-10.00) X 10*3/uL RBC (4.40-5.60) X 10*6/uL Hgb (13.0-17.0) g/dL Hct (39.6-50.0) % MCHC (32.0-37.0) g/dL Plt Count (140-440) X 10*3/uL BUN (9.0-27.0) mg/dL Creatinine (0.6-1.5) mg/dL Est GFR (CKD-EPI)AfAm (60.0-200.0) Est GFR (CKD-EPI)NonAf (60.0-200.0) BUN/Creatinine Ratio (12.00-20.00) Ratio Glucose (70-110) mg/dL POC Glucose (mg/dL) 138 H (75-99) mg/dL Calcium (8.7-10.3) mg/dL
--- NOTE | 2021-06-19 15:32 | P.PN ---
Subjective Progress Note Date: 06/19/21 06/18/2021 Patient evaluated today resting in the bed. He has no complaints, referrals were sent for placement. Labs today include a white blood cell count of 3.32, hemoglobin 10.1, platelet count 99, BUN of 33.9, creatinine 1.6, glucose in the 120s, proBNP elevated at 16,900, he was transitioned to oral Lasix yesterday. Vital signs include a temp of 97.8, heart rate 69, blood pressure 155/92 he is 99% on room air. Does report some pain in his left hip states that he fell recently, and PT evaluation is recommending [facility] on discharge. Patient was opened with residential hospice prior to discharge. We anticipated DC to rehab today however patient would like to continue with hospice care and actually was brought into the hospital as his home situation was unsafe. Discharge planning today for placement tomorrow with residential hospice in the morning. Creatinine today 1.6, lisinopril was stopped. Potassium today 5.5, BUN 36.7, creatinine 1.6. Patient is afebrile today, blood pressure 104/68, 98% on room air. ROS Constitutional: Denied any fatigue denied any fever. Cardio vascular: denied any chest pain, palpitations Gastrointestinal: denied any nausea vomiting Pulmonary: Denied any shortness of breath cough Neurologic denied any new focal deficits All inpatient medications were reviewed and appropriate changes in these medications as dictated in the interval history and assessment and plan. PHYSICAL EXAMINATION: GENERAL: The patient is alert and oriented x3, not in any acute distress. Well developed, well nourished. HEENT: Pupils are round and equally reacting to light. EOMI. No scleral icterus. No conjunctival pallor. Normocephalic, atraumatic. No pharyngeal erythema. No thyromegaly. Poor dentition CARDIOVASCULAR: S1 and S2 present. No murmurs, rubs, or gallops. PULMONARY: Chest is clear to auscultation, no wheezing or crackles. ABDOMEN: Soft, nontender, distended, normoactive bowel sounds. No palpable organomegaly. MUSCULOSKELETAL: No joint swelling or deformity. EXTREMITIES: No cyanosis, clubbing, or pedal edema. NEUROLOGICAL: Gross neurological examination did not reveal any focal deficits. SKIN: No rashes. Assessment and Plan Assessment Congestive heart failure, acute exacerbation with acute on chronic systolic dysfunction, ejection fraction about 20-25% Possible cardiomyopathy Acute renal failure secondary to acute tubular necrosis most likely, baseline creatinine about 1.0, we will avoid nephrotoxic agents History of cirrhosis of the liver and recurrent refractory ascites Coronary artery disease History of COPD not in acute exacerbation History of CVA, TIA, diabetes mellitus type 2 with hyperglycemia Hypertension Hyperlipidemia History of myocardial infarction History of EtOH abuse History of polysubstance abuse Anxiety, depression, bipolar Chronic nicotine dependence GI prophylaxis: Protonix DO NOT RESUSCITATE Plan Continue all supportive care Discharge with hospice tomorrow Objective - Vital Signs Vital signs: Vital Signs Temp 97.2 F L 06/19/21 14:22 Pulse 60 06/19/21 14:22 Resp 16 06/19/21 14:22 BP 104/68 06/19/21 14:22 Pulse Ox 98 06/19/21 14:22 Intake & Output 06/18/21 06/19/21 06/19/21 18:59 06:59 18:59 Intake Total 500 540 Balance 500 540 Weight 81.647 kg Intake: Oral 500 540 Other: Voiding Method Urinal Urinal # Voids 2 - Labs CBC & Chem 7: 06/18/21 03:15 06/19/21 05:16 Labs: Abnormal Lab Results - Last 24 Hours (Table) 06/18/21 06/18/21 06/19/21 Range/Units 16:33 21:09 05:16 Anion Gap 9.90 L (10.00-18.00) mmol/L BUN 36.7 H (9.0-27.0) mg/dL Creatinine 1.6 H (0.6-1.5) mg/dL Est GFR (CKD-EPI)AfAm 52.3 L (60.0-200.0) Est GFR (CKD-EPI)NonAf 45.2 L (60.0-200.0) BUN/Creatinine Ratio 22.80 H (12.00-20.00) Ratio Glucose 134 H (70-110) mg/dL POC Glucose (mg/dL) 199 H 197 H (75-99) mg/dL Calcium 8.5 L (8.7-10.3) mg/dL 06/19/21 06/19/21 Range/Units 06:55 11:26 Anion Gap (10.00-18.00) mmol/L BUN (9.0-27.0) mg/dL Creatinine (0.6-1.5) mg/dL Est GFR (CKD-EPI)AfAm (60.0-200.0) Est GFR (CKD-EPI)NonAf (60.0-200.0) BUN/Creatinine Ratio (12.00-20.00) Ratio Glucose (70-110) mg/dL POC Glucose (mg/dL) 144 H 180 H (75-99) mg/dL Calcium (8.7-10.3) mg/dL
[2021-06-19 16:38] LABS: Glucose,Whole Blood 133 mg/dL (75-99)
[2021-06-19 20:41] LABS: Glucose,Whole Blood 167 mg/dL (75-99)
[2021-06-20] MEDS: HYDROmorphone 1 MG/ML 1 ML SYRINGE IVP PRN ×4 (00:24→12:27)
[2021-06-20 06:55] LABS: Glucose,Whole Blood 128 mg/dL (75-99)
[2021-06-20] MEDS: carvediloL 12.5 MG TAB PO SCH (07:32)
[2021-06-20] MEDS: PANTOPRAZOLE 40 MG TABLET PO SCH (07:33)
[2021-06-20] MEDS: FUROSEMIDE 20 MG TAB PO SCH (07:33)
[2021-06-20] MEDS: SPIRONOLACTONE 25 MG TAB PO SCH (07:33)
[2021-06-20] MEDS ORDERED: SODIUM POLYSTYRENE SULFONATE 15 GM/60 ML BOTTLE PO STA (10:23)
--- NOTE | 2021-06-20 10:25 | P.DS ---
Providers Date of admission: 06/16/21 07:42 Attending physician: Surya Rodriguez Primary care physician: Stated None Hospital Course: Final Diagnosis Congestive heart failure, acute exacerbation with acute on chronic systolic dysfunction, ejection fraction about 20-25% Possible cardiomyopathy Acute renal failure secondary to acute tubular necrosis most likely, baseline creatinine about 1.0, we will avoid nephrotoxic agents History of cirrhosis of the liver and recurrent refractory ascites Coronary artery disease History of COPD not in acute exacerbation History of CVA, TIA, diabetes mellitus type 2 with hyperglycemia Hypertension Hyperlipidemia History of myocardial infarction History of EtOH abuse History of polysubstance abuse Anxiety, depression, bipolar Chronic nicotine dependence DO NOT RESUSCITATE Discharge Disposition Patient was admitted to hospital after his home situation was found to be unsafe. He was currently opened with residential hospice. He is ready for discharge and will send to [place] and will continue with residential hospice services. Patient would like a paracentesis before he goes for therapeutic benefits. Hospital Course This is a pleasant 61-year-old male presented to the hospital for loitering. 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 His hospital stay patient denied any medical complaints, he has neck back and lower extremity pain that is chronic. He has a history of end-stage liver cirrhosis with recurrent refractory ascites is most recent paracentesis was 2 weeks ago. His abdominal distention has been increasing steadily over the last few days and is scheduled for a therapeutic paracentesis today. Additional history includes coronary artery disease status post, HEART FAILURE, CVA in 2019, DIABETES MELLITUS TYPE 2, hypokalemia, hypertension, liver disease, myocardial infarction, chronic renal disease, history of EtOH abuse history of polysubstance abuse remote, anxiety depression, bipolar. Also history of MRSA infarct in October 2020. Patient is A current every day smoker and smokes marijuana occasionally. ALLERGIES to penicillin and metformin. Patient is a DO NOT RESUSCITATE. 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 BNP on admission was found to be 16,900. Creatinine was also found to be 1.6 which is the patient's baseline he is on oral Lasix, oral Aldactone, carvedilol. We did discontinue his lisinopril as his blood pressures been 130s sytolic and his creatinine was elevated. Repeat chest x-ray showed mild CHF no vidal pulmonary edema. Patient is afebrile, heart rate 63 sinus rhythm, blood pressure 140s over 80s, he is 100 oxygen saturation on room air. 06/20/2021 Patient is in complaint today is abdominal distention due to his recurrent ascites he is requesting a paracentesis prior to discharge ordered a therapeutic. PT/INR pending for today. Most recent blood work shows a white count of 3.32, hemoglobin 10.1, sodium 139, potassium 5.5, creatinine 1.6, glucose in the 130s. We did give patient a small dose of Kayexalate prior to discharge. Goal for this patient is for placement and to continue with residential hospice he has realistic about his end goals and prognosis. His main concern is pain management. Vitals today are stable. Focal neurological exam is negative. Patient is alert and oriented 3 pleasant cooperative. S1-S2 auscultated, abdomen is distended consistent with clinical presentation of ascites, positive bowel sounds. Please see medication reconciliation for list of current medications. Thank you for allowing us to participate in the care of this patient. Patient Condition at Discharge: Fair Plan - Discharge Summary Discharge Rx Participant: No New Discharge Prescriptions: New Pantoprazole [Protonix] 40 mg PO AC-BRKFST tab traMADol HCl [Ultram] 50 mg PO TID PRN 2 Days #6 tab PRN Reason: Mild Breakthrough Pain ALPRAZolam [Xanax] 0.25 mg PO TID PRN #6 tab PRN Reason: Anxiety Furosemide [Lasix] 20 mg PO DAILY tab Continue carvediloL [Coreg*] 12.5 mg PO BID-W/MEALS tab Spironolactone [Aldactone] 100 mg PO DAILY #30 tab Discontinued Furosemide [Lasix] 40 mg PO BID@0900,1600 #60 tab Lisinopril [Prinivil] 10 mg PO DAILY Discharge Medication List carvediloL [Coreg*] 12.5 mg PO BID-W/MEALS tab 04/10/21 [Rx] Spironolactone [Aldactone] 100 mg PO DAILY #30 tab 04/25/21 [Rx] ALPRAZolam [Xanax] 0.25 mg PO TID PRN #6 tab 06/20/21 [Rx] Furosemide [Lasix] 20 mg PO DAILY tab 06/20/21 [Rx] Pantoprazole [Protonix] 40 mg PO AC-BRKFST tab 06/20/21 [Rx] traMADol HCl [Ultram] 50 mg PO TID PRN 2 Days #6 tab 06/20/21 [Rx] Follow up Appointment(s)/Referral(s): None,Stated [Primary Care Provider] - 1-2 days Residential Home[facility] [NON-STAFF] - (Hospice Care) Ambulatory/Diagnostic Orders: Basic Metabolic Panel [LAB.AMB] Time Frame: 2 Days, Location: None Selected Activity/Diet/Wound Care/Special Instructions: Discharged to [place] in [place] with Residential Hospice which patient had prior to admission to hospital Hospice will adjust medications once evaluated after discharge Discharge Disposition: DISCH TO HOSPICE MED FACILTY
[2021-06-20 11:18] LABS: INR 1.1 (<1.2); Prothrombin Time 11.9 sec (9.0-12.0)
[2021-06-20 11:35] LABS: Glucose,Whole Blood 163 mg/dL (75-99)
[2021-06-20 14:26] VITALS: BP 129/82; PULSE 63; RESP 16; TEMP 97.7
--- NOTE | 2021-06-20 14:31 | US ---
EXAMINATION TYPE: US paracentesis abd w/image DATE OF EXAM: 06/20/2021 COMPARISON: NONE HISTORY: Ascites. PROCEDURE: Maximal barrier technique was utilized. The skin overlying a suitable pocket of fluid was localized with ultrasound and the overlying skin was prepped and draped. Ultrasound was utilized with sterile technique. Lidocaine was used for local anesthesia and a skin elder made with a scalpel. Catheter was advanced under direct ultrasound guidance into a suitable pocket of fluid and approximately 2.8 liter s of serous fluid were removed. Catheter was withdrawn and hemostasis achieved. There is no immedia te complication; the patient is discharged in stable condition. IMPRESSION: STATUS POST ULTRASOUND GUIDED PARACENTESIS FOR PALLIATION OF ASCITES. THIS PROCEDURE WA S PERFORMED BY THE UNDERSIGNED.
[2021-06-20] MEDS: ALPRAZolam 0.25 MG TAB PO PRN (14:49)
[2021-06-20] MEDS: HYDROcodone/APAP 5-325MG 1 EACH TAB PO PRN (14:49)
== END 2021-06-20 14:54 | disposition hospice, inpatient (51) | DRG 291 ==
LOC: EC 17:48 → 6NMEDSUR 20:53 → 5NMEDONC 06-15 11:37 → 4SSUR 06-15 15:28 → OBSVTOIN 06-16 07:42
PROVIDERS: ADMIT Hospitalist; ATTEND Hospitalist
PROC: 0W9G3ZZ Drainage of Peritoneal Cavity, Percutaneous Approach (ICD-10-PCS; principal; 2021-06-20)
DX: I13.0 Hypertensive heart and chronic kidney disease with heart failure and stage 1 through stage 4 chronic kidney disease, or unspecified chronic kidney disease (principal); I50.23 Acute on chronic systolic (congestive) heart failure; N17.0 Acute kidney failure with tubular necrosis; Z51.5 Encounter for palliative care; I25.5 Ischemic cardiomyopathy; E11.22 Type 2 diabetes mellitus with diabetic chronic kidney disease; E11.42 Type 2 diabetes mellitus with diabetic polyneuropathy; E11.65 Type 2 diabetes mellitus with hyperglycemia; E78.5 Hyperlipidemia, unspecified; Z59.00 Homelessness unspecified; Z66 Do not resuscitate; F17.210 Nicotine dependence, cigarettes, uncomplicated; F31.9 Bipolar disorder, unspecified; K70.31 Alcoholic cirrhosis of liver with ascites; I25.10 Atherosclerotic heart disease of native coronary artery without angina pectoris; I25.2 Old myocardial infarction; I49.3 Ventricular premature depolarization; F19.11 Other psychoactive substance abuse, in remission; G89.29 Other chronic pain; J44.9 Chronic obstructive pulmonary disease, unspecified; K72.10 Chronic hepatic failure without coma; N18.9 Chronic kidney disease, unspecified; F10.11 Alcohol abuse, in remission; M54.50 Low back pain, unspecified; R53.81 Other malaise; Z20.822 Contact with and (suspected) exposure to COVID-19; E87.6 Hypokalemia; Z79.4 Long term (current) use of insulin; F41.9 Anxiety disorder, unspecified; Z80.3 Family history of malignant neoplasm of breast; Z82.49 Family history of ischemic heart disease and other diseases of the circulatory system; Z83.3 Family history of diabetes mellitus; Z86.14 Personal history of Methicillin resistant Staphylococcus aureus infection; Z86.73 Personal history of transient ischemic attack (TIA), and cerebral infarction without residual deficits; Z88.0 Allergy status to penicillin; Z88.8 Allergy status to other drugs, medicaments and biological substances; Z90.89 Acquired absence of other organs; Z90.49 Acquired absence of other specified parts of digestive tract; Z98.890 Other specified postprocedural states; Z95.5 Presence of coronary angioplasty implant and graft; Z79.899 Other long term (current) drug therapy
CPT/HCPCS: 36415; 49083; 71045; 80048; 80053; 83735; 83880; 84132; 85025; 85610; 87635; 93005; 96374; 96375; 99285

== ENCOUNTER 2023-04-15 19:42 | Inpatient (IN) | payer OTHER ==
--- NOTE | 2023-04-15 20:52 | XR ---
EXAMINATION TYPE: XR chest 2V DATE OF EXAM: 04/15/2023 COMPARISON: 06/18/2021 INDICATION: Difficulty breathing TECHNIQUE: Frontal and lateral views of the chest are obtained. FINDINGS: The heart size is normal. The pulmonary vasculature is prominent. Mild diffuse increased lung markings are present. Focal infiltrate or densities at the left lateral l christian base. Small bilateral pleural effusions are present IMPRESSION: 1. Small bilateral pleural effusions. 2. Density at the lateral left lung base. Correlate for pneumonia. Underlying mass is not excluded. F ollow-up is recommended. 3. Correlate for volume overload
[2023-04-15] MEDS ORDERED: SODIUM CHLORIDE 0.9% 1,000 ML IV STA (21:10)
[2023-04-15] MEDS ORDERED: IPRATROPIUM-ALBUTEROL 3 ML NEB INHALATION STA (21:11)
--- NOTE | 2023-04-15 21:12 | ED ---
SOB HPI - General Chief Complaint: Shortness of Breath Stated Complaint: STANLEY, Sent by [facility] Time Seen by Provider: 04/15/23 20:42 Source: patient Mode of arrival: ambulatory Limitations: no limitations - History of Present Illness Initial Comments: This is a 63-year-old male to the emergency department for evaluation multiple complaints. Patient complains of back pain belly pain shortness of breath chest pain with history of severe medical comorbidities the patient presents to the ER for ruled out. Patient denies any complaints of fever or other complaint MD Complaint: shortness of breath, cough, chest pain, anxiety (Back pain) -: days(s) Radiation: back Severity: moderate Severity scale (1-10): 4 Quality: dull Consistency: constant Improves With: nothing Worsens With: nothing Known History Of: COPD, congestive heart failure Context: recent URI, recent illness Associated Symptoms: chest pain - Related Data Home Medications Medication Instructions Recorded Confirmed No Known Home Medications 04/15/23 04/15/23 Allergies Allergy/AdvReac Type Severity Reaction Status Date / Time Penicillins Allergy Unknown Verified 04/15/23 22:31 Childhood metformin AdvReac Mild Nausea Verified 04/15/23 22:31 Review of Systems ROS Statement: Those systems with pertinent positive or pertinent negative responses have been documented in the HPI. ROS Other: All systems not noted in ROS Statement are negative. Past Medical History Past Medical History: Coronary Artery Disease (CAD), Heart Failure, COPD, CVA/TIA, Diabetes Mellitus, Eye Disorder, Hyperlipidemia, Hypertension, Liver Disease, Myocardial Infarction (RI), Renal Disease Additional Past Medical History / Comment(s): Iischemic cardiomyopathy, PVCs, CVA 2019 with L sided weakness, chronic low back pain d/t vertebral fractures years ago as well as cervical pinched nerves, DDD, IDDM type II, neuropathy bilateral hands/legs and feet, pt states he can barely see with L eye and R eye vision is not very good/he is unsure why but believes it is d/t diabetes, liver disease/hepatitis C/ETOH abuse, recurrent ascities/paracentesis, recent R hip fracture d/t fall/recurrent falls. Last Myocardial Infarction Date:: October 2018 History of Any Multi-Drug Resistant Organisms: MRSA Date of last positivie culture/infection: 11/23/20 MDRO Source:: FOOT MRSA Past Surgical History: Cholecystectomy, Heart Catheterization, Heart Catheterization With Stent, Tonsillectomy Additional Past Surgical History / Comment(s): R heel I&D, colonoscopy. Past Anesthesia/Blood Transfusion Reactions: No Reported Reaction Date of Last Stent Placement:: 2011 Past Psychological History: Anxiety, Bipolar, Depression Smoking Status: Current every day smoker Past Alcohol Use History: None Reported Past Drug Use History: Marijuana - Past Family History Mother Family Medical History: Cancer Father Family Medical History: Coronary Artery Disease (CAD), Diabetes Mellitus, Hypertension General Exam Limitations: no limitations General appearance: alert, in no apparent distress Head exam: Present: atraumatic, normocephalic, normal inspection Eye exam: Present: normal appearance, PERRL, EOMI. Absent: scleral icterus, conjunctival injection, periorbital swelling ENT exam: Present: normal exam, mucous membranes moist Neck exam: Present: normal inspection. Absent: tenderness, meningismus, lymphadenopathy Respiratory exam: Present: normal lung sounds bilaterally. Absent: respiratory distress, wheezes, rales, rhonchi, stridor Cardiovascular Exam: Present: regular rate, normal rhythm, normal heart sounds. Absent: systolic murmur, diastolic murmur, rubs, gallop, clicks GI/Abdominal exam: Present: soft, normal bowel sounds. Absent: distended, tenderness, guarding, rebound, rigid Extremities exam: Present: normal inspection, full ROM, normal capillary refill. Absent: tenderness, pedal edema, joint swelling, calf tenderness Back exam: Present: normal inspection Neurological exam: Present: alert, oriented X3, CN II-XII intact Psychiatric exam: Present: normal affect, normal mood Skin exam: Present: warm, dry, intact, normal color. Absent: rash Course Vital Signs 04/15/23 04/15/23 04/15/23 19:50 21:53 22:03 Temperature 97.4 F L Pulse Rate 96 99 95 Pulse Rate [ Folder Tier ] Respiratory 20 Rate Blood Pressure 161/90 Blood Pressure [Right Arm] O2 Sat by Pulse 96 Oximetry 04/16/23 04/16/23 04/16/23 00:35 00:37 02:10 Temperature Pulse Rate 95 89 Pulse Rate [ Folder Tier ] Respiratory 20 20 20 Rate Blood Pressure 157/95 143/89 Blood Pressure [Right Arm] O2 Sat by Pulse 96 97 Oximetry 04/16/23 04/16/23 04/16/23 04:26 07:59 08:10 Temperature Pulse Rate 76 Pulse Rate [ 93 Folder Tier ] Respiratory 18 22 Rate Blood Pressure 157/98 Blood Pressure 163/108 [Right Arm] O2 Sat by Pulse 96 96 96 Oximetry 04/16/23 04/16/23 04/16/23 11:30 11:33 11:44 Temperature 98.1 F Pulse Rate 88 88 Pulse Rate [ 88 Folder Tier ] Respiratory 16 Rate Blood Pressure Blood Pressure 148/98 [Right Arm] O2 Sat by Pulse 94 L Oximetry 04/16/23 04/16/23 04/16/23 13:14 15:30 15:39 Temperature 98.1 F Pulse Rate 89 90 Pulse Rate [ 86 Folder Tier ] Respiratory 20 16 Rate Blood Pressure 144/81 Blood Pressure 105/88 [Right Arm] O2 Sat by Pulse 96 96 Oximetry 04/16/23 04/16/23 15:51 17:00 Temperature 98 F Pulse Rate 90 Pulse Rate [ 93 Folder Tier ] Respiratory 18 Rate Blood Pressure Blood Pressure 161/68 [Right Arm] O2 Sat by Pulse 97 Oximetry - Reevaluation(s) Reevaluation #1: 04/15/23 21:58 Medical record is reviewed Reevaluation #2: 04/15/23 21:59 Patient symptoms and pain are controlled Reevaluation #3: 04/15/23 21:59 Patient informed results questions answered Reevaluation #4: 04/15/23 21:59 Was pt. sent in by a medical professional or institution (, PA, REST ROOM ATTENDANT, urgent care, hospital, or fpc...) When possible be specific @ -no Did you speak to anyone other than the patient for history (EMS, parent, family, police, friend...)? What history was obtained from this source @ -no Did you review nursing and triage notes (agree or disagree)? Why? @ -agree Are old charts reviewed (outside hosp., previous admission, EMS record, old EKG, old radiological studies, urgent care reports/EKG's, fpc records)? Report findings @ -yes Differential Diagnosis (chest pain, altered mental status, abdominal pain women, abdominal pain men, vaginal bleeding, weakness, fever, dyspnea, syncope, headache, dizziness, GI bleed, back pain, seizure, CVA, palpatations, mental health, musculoskeletal)? @ -prior EKG interpreted by me (3pts min.). @ -yes X-rays interpreted by me (1pt min.). @ -yes CT interpreted by me (1pt min.). @ -no U/S interpreted by me (1pt. min.). @ -no What testing was considered but not performed or refused? (CT, X-rays, U/S, labs)? Why? @ -none What meds were considered but not given or refused? Why? @ -none Did you discuss the management of the patient with other professionals (professionals i.e. DrLuke, PA, REST ROOM ATTENDANT, lab, RT, psych nurse, social security specialist, computer hardware engineer, teacher, risk officer, showcase trimmer)? Give summary @ -no Was smoking cessation discussed for >3mins.? @ -no Was critical care preformed (if so, how long)? @ -no Were there social determinants of health that impacted care today? How? (Ho melessness, low income, unemployed, alcoholism, drug addiction, transportation, low edu. Level, literacy, decrease access to med. care, [facility], rehab)? @ -none Was there de-escalation of care discussed even if they declined (Discuss DNR or withdrawal of care, Hospice)? DNR status @ -no What co-morbidities impacted this encounter? (DM, HTN, Smoking, COPD, CAD, Cancer, CVA, ARF, Chemo, Hep., AIDS, mental health diagnosis, sleep apnea, morbid obesity)? @ -none Was patient admitted / discharged? Hospital course, mention meds given and route, prescriptions, significant lab abnormalities, going to OR and other pertinent info. @ - 63 male to the emergency department for evaluation today. Patient presents today for evaluation of shortness of breath pain back pain chest pain abdominal pain severe. Patient will be admitted for pain control severe COPD exacerbation Admitted Undiagnosed new problem with uncertain prognosis? @ -no Drug Therapy requiring intensive monitoring for toxicity (Heparin, Nitro, Insulin, Cardizem)? @ -no Were any procedures done? @ -no Diagnosis/symptom? @ -COPD shortness of breath and chest pain Acute, or Chronic, or Acute on Chronic? @ -Acute Uncomplicated (without systemic symptoms) or Complicated (systemic symptoms)? @ -Complicated Side effects of treatment? @ -no Exacerbation, Progression, or Severe Exacerbation? @ -exacerbation Poses a threat to life or bodily function? How? (Chest pain, USA, RI, pneumonia, PE, COPD, DKA, ARF, appy, cholecystitis, CVA, Diverticulitis, Homicidal, Suicidal, threat to staff... and all critical care pts) @ -yes with COPD and respiratory failure Reevaluation #5: 04/15/23 21:59 Differential Dyspnea: Coronary syndrome, arrhythmia, tamponade, asthma, COPD, pulmonary embolism, pneumonia, pneumothorax, pulmonary effusion, anaphylaxis, diabetic ketoacidosis, flailed chest, pulmonary contusion, diaphragmatic rupture, anemia, neuromuscular, this is not meant to be an all-inclusive list. - Consultations Consultation #1: Spoke with Dr. Loyola will admit this patient Medical Decision Making - Medical Decision Making 63 male to the emergency department for evaluation today. Patient presents today for evaluation of shortness of breath pain back pain chest pain abdominal pain severe. Patient [place] for pain control severe COPD exacerbation - Lab Data Result diagrams: 04/16/23 05:38 04/19/23 10:02 Lab Results 04/15/23 04/15/23 04/15/23 Range/Units 21:34 21:34 21:34 WBC 5.6 (3.8-10.6) k/uL RBC 4.59 (4.30-5.90) m/uL Hgb 14.3 (13.0-17.5) gm/dL Hct 42.8 (39.0-53.0) % MCV 93.2 (80.0-100.0) fL MCH 31.1 (25.0-35.0) pg MCHC 33.4 (31.0-37.0) g/dL RDW 14.0 (11.5-15.5) % Plt Count 162 (150-450) k/uL MPV 9.0 Neutrophils % 72 % Lymphocytes % 14 % Monocytes % 8 % Eosinophils % 4 % Basophils % 1 % Neutrophils # 4.0 (1.3-7.7) k/uL Lymphocytes # 0.8 L (1.0-4.8) k/uL Monocytes # 0.5 (0-1.0) k/uL Eosinophils # 0.2 (0-0.7) k/uL Basophils # 0.0 (0-0.2) k/uL PT 10.8 (10.0-12.5) sec INR 1.0 (<1.2) APTT 26.1 (22.0-30.0) sec Sodium 134 L (137-145) mmol/L Potassium 4.4 (3.5-5.1) mmol/L Chloride 107 (98-107) mmol/L Carbon Dioxide 23 (22-30) mmol/L Anion Gap 4 mmol/L BUN 21 H (9-20) mg/dL Creatinine 1.12 (0.66-1.25) mg/dL Est GFR (CKD-EPI)AfAm 80 (>60 ml/min/1.73 sqM) Est GFR (CKD-EPI)NonAf 69 (>60 ml/min/1.73 sqM) Glucose 209 H (74-99) mg/dL Plasma Lactic Acid [place] (0.7-2.0) mmol/L Calcium 8.2 L (8.4-10.2) mg/dL Phosphorus 3.7 (2.5-4.5) mg/dL Magnesium 1.8 (1.6-2.3) mg/dL Total Bilirubin 1.1 (0.2-1.3) mg/dL AST 38 (17-59) U/L ALT 36 (4-49) U/L Alkaline Phosphatase 110 (38-126) U/L Ammonia (<30) umol/L Troponin I (0.000-0.034) ng/mL NT-Pro-B Natriuret Pep 34201 pg/mL Total Protein 6.3 (6.3-8.2) g/dL Albumin 3.2 L (3.5-5.0) g/dL Urine Color Urine Appearance (Clear) Urine pH (5.0-8.0) Ur Specific Foley (1.001-1.035) Urine Protein (Negative) Urine Glucose (UA) (Negative) Urine Ketones (Negative) Urine Blood (Negative) Urine Nitrite (Negative) Urine Bilirubin (Negative) Urine Urobilinogen (<2.0) mg/dL Ur Leukocyte Esterase (Negative) Urine RBC (0-5) /hpf Urine WBC (0-5) /hpf Amorphous Sediment (None) /hpf Hyaline Casts (0-2) /lpf Urine Mucus (None) /hpf 04/15/23 04/15/23 04/15/23 Range/Units 21:34 21:34 21:34 WBC (3.8-10.6) k/uL RBC (4.30-5.90) m/uL Hgb (13.0-17.5) gm/dL Hct (39.0-53.0) % MCV (80.0-100.0) fL MCH (25.0-35.0) pg MCHC (31.0-37.0) g/dL RDW (11.5-15.5) % Plt Count (150-450) k/uL MPV Neutrophils % % Lymphocytes % % Monocytes % % Eosinophils % % Basophils % % Neutrophils # (1.3-7.7) k/uL Lymphocytes # (1.0-4.8) k/uL Monocytes # (0-1.0) k/uL Eosinophils # (0-0.7) k/uL Basophils # (0-0.2) k/uL PT (10.0-12.5) sec INR (<1.2) APTT (22.0-30.0) sec Sodium (137-145) mmol/L Potassium (3.5-5.1) mmol/L Chloride (98-107) mmol/L Carbon Dioxide (22-30) mmol/L Anion Gap mmol/L BUN (9-20) mg/dL Creatinine (0.66-1.25) mg/dL Est GFR (CKD-EPI)AfAm (>60 ml/min/1.73 sqM) Est GFR (CKD-EPI)NonAf (>60 ml/min/1.73 sqM) Glucose (74-99) mg/dL Plasma Lactic Acid [place] 1.2 (0.7-2.0) mmol/L Calcium (8.4-10.2) mg/dL Phosphorus (2.5-4.5) mg/dL Magnesium (1.6-2.3) mg/dL Total Bilirubin (0.2-1.3) mg/dL AST (17-59) U/L ALT (4-49) U/L Alkaline Phosphatase (38-126) U/L Ammonia 19 (<30) umol/L Troponin I 0.068 H* (0.000-0.034) ng/mL NT-Pro-B Natriuret Pep pg/mL Total Protein (6.3-8.2) g/dL Albumin (3.5-5.0) g/dL Urine Color Yellow Urine Appearance Clear (Clear) Urine pH 6.0 (5.0-8.0) Ur Specific Foley 1.025 (1.001-1.035) Urine Protein 3+ H (Negative) Urine Glucose (UA) 3+ H (Negative) Urine Ketones Negative (Negative) Urine Blood Small H (Negative) Urine Nitrite Negative (Negative) Urine Bilirubin Negative (Negative) Urine Urobilinogen 2.0 (<2.0) mg/dL Ur Leukocyte Esterase Negative (Negative) Urine RBC 2 (0-5) /hpf Urine WBC 3 (0-5) /hpf Amorphous Sediment Rare H (None) /hpf Hyaline Casts 47 H (0-2) /lpf Urine Mucus Few H (None) /hpf - Radiology Data Radiology results: report reviewed (X-rays negative for acute disease bilateral pleural effusions), image reviewed Disposition Clinical Impression: COPD (chronic obstructive pulmonary disease), Adult respiratory distress syn drome, Congestive heart failure, Acute exacerbation of chronic obstructive airways disease, Abdominal pain, Cardiomyopathy, Lumbar radiculopathy, COPD exacerbation, Gravely disabled, Abdominal ascites Disposition: ADMITTED IP TO THIS HOSP Condition: Fair Is patient prescribed a controlled substance at d/c from ED?: No Time of Disposition: 22:00
[2023-04-15] MEDS: MORPHINE SULFATE 4 MG/ML SYRINGE IV STA ×2 (21:39→21:40)
[2023-04-15 22:13] LABS: Basophils % (A) 1 %; Eosinophils # (A) 0.2 k/uL (0-0.7); Eosinophils % (A) 4 %; HCT 42.8 % (39.0-53.0); HGB 14.3 gm/dL (13.0-17.5); Lymphocytes # (A) 0.8 k/uL (1.0-4.8); Lymphocytes % (A) 14 %; MCH 31.1 pg (25.0-35.0); MCHC 33.4 g/dL (31.0-37.0); MCV 93.2 fL (80.0-100.0); Monocytes # (A) 0.5 k/uL (0-1.0); Monocytes % (A) 8 %; Neutrophils % (A) 72 %; Platelet Count 162 k/uL (150-450); RBC 4.59 m/uL (4.30-5.90); WBC 5.6 k/uL (3.8-10.6)
[2023-04-15 22:18] LABS: Lactic Acid, Venous 1.2 mmol/L (0.7-2.0); Partial Thromboplastin Time 26.1 sec (22.0-30.0); Prothrombin Time 10.8 sec (10.0-12.5)
[2023-04-15 22:20] LABS: ALT 36 U/L (4-49); AST 38 U/L (17-59); African American GFR (CKD) 80 (>60 ml/min/1.73 sqM); Albumin 3.2 g/dL (3.5-5.0); Alkaline Phosphatase 110 U/L (38-126); Anion Gap 4 mmol/L; Blood Urea Nitrogen 21 mg/dL (9-20); Calcium 8.2 mg/dL (8.4-10.2); Carbon Dioxide 23 mmol/L (22-30); Chloride 107 mmol/L (98-107); Glucose 209 mg/dL (74-99); Magnesium 1.8 mg/dL (1.6-2.3); Non-African American GFR(CKD) 69 (>60 ml/min/1.73 sqM); Phosphorus 3.7 mg/dL (2.5-4.5); Potassium 4.4 mmol/L (3.5-5.1); Sodium 134 mmol/L (137-145); Total Bilirubin 1.1 mg/dL (0.2-1.3); Total Protein 6.3 g/dL (6.3-8.2)
[2023-04-15 22:28] LABS: NT-Pro-B-Type Natriuretic Pept 18900 pg/mL
[2023-04-15] MEDS ORDERED: AZITHROMYCIN 500 MG in SODIUM CHLORIDE 0.9% 250 ML IVPB STA (22:38)
[2023-04-15] MEDS ORDERED: NALOXONE 0.4 MG/ML 1 ML VIAL IV PRN (22:38)
[2023-04-15] MEDS ORDERED: ONDANSETRON 4 MG/2 ML VIAL IVP PRN (22:38)
--- NOTE | 2023-04-15 22:55 | CT ---
EXAM: CT Abdomen and Pelvis Without Intravenous Contrast CLINICAL HISTORY: ITS.REASON CT Reason: pain TECHNIQUE: Axial computed tomography images of the abdomen and pelvis without intravenous contrast. CTDI is 8.3 mGy and DLP is 513.6 mGy-cm. This CT exam was performed using one or more of the following dose reduction techniques: automated exposure control, adjustment of the mA and/or kV according to patient size, and/or use of iterative reconstruction technique. COMPARISON: No relevant prior studies available. FINDINGS: Lung bases: See below. Pleural space: Moderate bilateral pleural effusions. Subjacent atelectasis. ABDOMEN: Liver: Unremarkable. Gallbladder and bile ducts: Cholecystectomy. No ductal dilation. Pancreas: Unremarkable. No ductal dilation. Spleen: Unremarkable. No splenomegaly. Adrenals: Unremarkable. No mass. Kidneys and ureters: Renal cysts. No hydronephrosis, nephrolithiasis, or obstructive uropathy. Stomach and bowel: Diverticulosis, without acute diverticulitis. No small bowel obstruction. No free intraperitoneal air. PELVIS: Appendix: Normal appendix. Bladder: Unremarkable. No stones. Reproductive: Unremarkable as visualized. ABDOMEN and PELVIS: Intraperitoneal space: Unremarkable. No free air. No significant fluid collection. Bones/joints: Degenerative changes of the spine. No acute fracture. No dislocation. Soft tissues: Unremarkable. Vasculature: Atherosclerotic changes of the aorta. No abdominal aortic aneurysm. Lymph nodes: Unremarkable. No enlarged lymph nodes. IMPRESSION: 1. Normal appendix. 2. Cholecystectomy. 3. Moderate bilateral pleural effusions. Subjacent atelectasis. 4. Diverticulosis, without acute diverticulitis. No small bowel obstruction. No free intraperitoneal air.
[2023-04-15 23:24] LABS: Amorphous Sediment,Urine Rare /hpf; Appearance,Urine Clear (Clear); Bilirubin,Urine Negative (Negative); Blood,Urine Small (Negative); Color,Urine Yellow; Glucose,Urine (UA) 3+ (Negative); Hyaline Casts,Urine 47 /lpf (0-2); Ketones,Urine Negative (Negative); Leukocyte Esterase,Urine Negative (Negative); Mucus,Urine Few /hpf; Nitrite,Urine Negative (Negative); Protein,Urine 3+ (Negative); RBC,Urine 2 /hpf (0-5); Specific Gravity,Urine 1.025 (1.001-1.035); WBC,Urine 3 /hpf (0-5)
[2023-04-16] MEDS: SODIUM CHLORIDE 0.9% 1,000 ML IV SCH ×3 (00:03→08:20)
[2023-04-16] MEDS: MORPHINE SULFATE 4 MG/ML SYRINGE IV PRN ×5 (02:11→22:16)
[2023-04-16 06:48] LABS: Basophils % (A) 1 %; Eosinophils # (A) 0.3 k/uL (0-0.7); Eosinophils % (A) 5 %; HCT 33.1 % (39.0-53.0); Lymphocytes # (A) 1.1 k/uL (1.0-4.8); Lymphocytes % (A) 21 %; MCH 31.7 pg (25.0-35.0); MCHC 33.6 g/dL (31.0-37.0); MCV 94.5 fL (80.0-100.0); Mean Platelet Volume 8.9; Monocytes # (A) 0.5 k/uL (0-1.0); Monocytes % (A) 9 %; Neutrophils # (A) 3.3 k/uL (1.3-7.7); Neutrophils % (A) 63 %; Platelet Count 158 k/uL (150-450); RDW 14.1 % (11.5-15.5); WBC 5.2 k/uL (3.8-10.6)
[2023-04-16 06:49] LABS: HGB 11.1 gm/dL (13.0-17.5)
[2023-04-16 07:06] LABS: ALT 32 U/L (4-49); AST 35 U/L (17-59); African American GFR (CKD) 79 (>60 ml/min/1.73 sqM); Albumin 2.7 g/dL (3.5-5.0); Alkaline Phosphatase 87 U/L (38-126); Anion Gap 5 mmol/L; Blood Urea Nitrogen 19 mg/dL (9-20); Calcium 7.7 mg/dL (8.4-10.2); Carbon Dioxide 23 mmol/L (22-30); Chloride 107 mmol/L (98-107); Glucose 191 mg/dL (74-99); Magnesium 1.7 mg/dL (1.6-2.3); Non-African American GFR(CKD) 69 (>60 ml/min/1.73 sqM); Phosphorus 3.9 mg/dL (2.5-4.5); Potassium 4.4 mmol/L (3.5-5.1); Sodium 135 mmol/L (137-145); Total Bilirubin 0.7 mg/dL (0.2-1.3); Total Protein 5.4 g/dL (6.3-8.2)
[2023-04-16] MEDS: IPRATROPIUM-ALBUTEROL 3 ML NEB INHALATION SCH ×3 (11:33→21:35)
[2023-04-16] MEDS ORDERED: DEXTROSE 50% SYRINGE 50 ML IVP PRN ×2 (16:55)
[2023-04-16 17:41] LABS: Glucose,Whole Blood 230 mg/dL (70-110)
[2023-04-16] MEDS: INSULIN ASPART (NovoLOG) 100 UNIT/ML VIAL SQ SCH ×2 (17:51→20:06)
[2023-04-16 19:46] LABS: Glucose,Whole Blood 204 mg/dL (70-110)
[2023-04-16] MEDS: BUDESONIDE 0.5 MG/2 ML NEBU INHALATION SCH (21:35)
[2023-04-16] MEDS: AZITHROMYCIN 500 MG in SODIUM CHLORIDE 0.9% 250 ML IVPB SCH (22:54)
[2023-04-17] MEDS: SODIUM CHLORIDE 0.9% 1,000 ML IV SCH ×3 (06:00→11:47)
[2023-04-17 06:19] LABS: Glucose,Whole Blood 190 mg/dL (70-110)
[2023-04-17] MEDS: INSULIN ASPART (NovoLOG) 100 UNIT/ML VIAL SQ SCH ×4 (06:46→21:25)
[2023-04-17] MEDS: MORPHINE SULFATE 4 MG/ML SYRINGE IV PRN ×4 (08:03→22:17)
[2023-04-17] MEDS: BUDESONIDE 0.5 MG/2 ML NEBU INHALATION SCH ×2 (08:40→21:16)
[2023-04-17] MEDS: IPRATROPIUM-ALBUTEROL 3 ML NEB INHALATION SCH ×4 (08:40→21:16)
[2023-04-17 11:42] LABS: Glucose,Whole Blood 235 mg/dL (70-110)
[2023-04-17 16:48] LABS: Glucose,Whole Blood 231 mg/dL (70-110)
[2023-04-17] MEDS: ENOXAPARIN 40 MG/0.4 ML SYRINGE SQ SCH (18:25)
[2023-04-17 19:45] LABS: Glucose,Whole Blood 283 mg/dL (70-110)
[2023-04-17] MEDS ORDERED: FUROSEMIDE 10 MG/ML 4 ML VIAL IV SCH (20:15)
--- NOTE | 2023-04-17 21:02 | HP ---
HISTORY AND PHYSICAL HISTORY OF PRESENT ILLNESS: A 63-year-old white male came in with multiple complaints, shortness of breath, belly pain, severe medical comorbidities, came in with fever, shortness of breath, cough, and congestion. He was found to have bilateral pneumonia, history of COPD, and congestive heart failure. Admitted for respiratory distress. HOME MEDICATIONS: Include: 1. Coreg. 2. Aldactone. 3. Xanax. 4. Lasix. 5. Protonix. 6. Tramadol. ALLERGIES: 1. Penicillin. 2. Metformin. REVIEW OF SYSTEMS: Fourteen-point review of systems is otherwise negative. PAST MEDICAL HISTORY: Coronary artery disease, heart failure, CVA, TIA, COPD, diabetes mellitus, dyslipidemia, hypertension, liver disease, myocardial infarction, renal disease, and history of MRSA. PAST SURGICAL HISTORY: Heart catheterization with stents, cholecystectomy, and tonsillectomy. SOCIAL HISTORY: Current everyday smoker. Anxiety and depression. FAMILY HISTORY: Coronary artery disease in the father. PHYSICAL EXAMINATION: VITAL SIGNS: Blood pressure is 150s over 90s, O2 of 96%, temperature 97.4, pulse 94 to 96, respiratory rate 18 to 20. CARDIOVASCULAR: Regular rate and rhythm. LUNGS: Scattered wheeze and rhonchi. HEENT: Normocephalic and atraumatic. OPHTHALMOLOGIC: Pupils are equal, round, and reactive. NECK: Supple. No mass. NEUROLOGIC: Cranial nerves intact. PSYCHIATRIC: Fair mood and affect. ASSESSMENT: 1. Acute shortness of breath. 2. Chronic obstructive pulmonary disease exacerbation. 3. Probable pneumonia. 4. Tracheobronchitis. 5. Abdominal pain. 6. Cardiomyopathy. 7. History of congestive heart failure. PLAN: We will get Pulmonary and Cardiology involved. IV antibiotics, IV steroids, updrafts. Prognosis guarded. MMODL / IJN: [id number] /
[2023-04-17] MEDS ORDERED: methylPREDNISolone SOD SUCCI 125 MG/2 ML VIAL IV STA (21:24)
[2023-04-17] MEDS: DAPAGLIFLOZIN PROPANEDIOL 10 MG TABLET PO SCH (21:28)
[2023-04-17] MEDS: LOSARTAN-HCTZ 50-12.5 MG 1 EACH TAB PO SCH (21:28)
[2023-04-17] MEDS: AZITHROMYCIN 500 MG in SODIUM CHLORIDE 0.9% 250 ML IVPB SCH (23:07)
[2023-04-18] MEDS: MORPHINE SULFATE 4 MG/ML SYRINGE IV PRN ×6 (02:00→23:29)
[2023-04-18] MEDS: SODIUM CHLORIDE 0.9% 1,000 ML IV SCH (02:34)
[2023-04-18] MEDS: methylPREDNISolone SOD SUCCI 125 MG/2 ML VIAL IV SCH ×3 (03:49→20:17)
[2023-04-18 06:18] LABS: Glucose,Whole Blood 365 mg/dL (70-110)
[2023-04-18] MEDS: INSULIN ASPART (NovoLOG) 100 UNIT/ML VIAL SQ SCH ×4 (06:22→19:57)
[2023-04-18] MEDS: FUROSEMIDE 10 MG/ML 4 ML VIAL IV SCH ×2 (09:17→20:16)
[2023-04-18] MEDS: METOPROLOL SUCCINATE (ER) 25 MG TAB.ER.24H PO SCH (09:17)
[2023-04-18] MEDS: ASPIRIN 81 MG PO SCH (09:17)
[2023-04-18] MEDS: SPIRONOLACTONE 25 MG TAB PO SCH (09:17)
[2023-04-18] MEDS: LOSARTAN-HCTZ 50-12.5 MG 1 EACH TAB PO SCH (09:18)
[2023-04-18] MEDS: ENOXAPARIN 40 MG/0.4 ML SYRINGE SQ SCH (09:18)
[2023-04-18] MEDS: DAPAGLIFLOZIN PROPANEDIOL 10 MG TABLET PO SCH (09:18)
[2023-04-18] MEDS: BUDESONIDE 0.5 MG/2 ML NEBU INHALATION SCH (09:30)
[2023-04-18] MEDS: IPRATROPIUM-ALBUTEROL 3 ML NEB INHALATION SCH ×4 (09:30→21:36)
--- NOTE | 2023-04-18 09:47 | CT ---
EXAMINATION TYPE: CT chest wo con DATE OF EXAM: 04/17/2023 COMPARISON: 05/13/2019 HISTORY: 63-year-old male COPD TECHNIQUE: Contiguous axial scanning of the chest without IV contrast. Coronal/sagittal reconstructio ns performed. CT DLP: 318mGycm. Automatic exposure control utilized for a dose reduction. FINDINGS: The heart is mildly enlarged without pericardial effusion. Extensive three-vessel coronary artery nargis cifications are present. Mild aortic valvular calcifications. Mild atherosclerotic arch calcifications. Bovine configuration to the aortic arch. Mild atherosclerot ic narrowing origin of the right subclavian artery from calcifications. Mildly enlarged 1.4 cm lower right paratracheal node likely reactive. Moderate bilateral pleural effusions with prominent adjacent atelectasis. A few groundglass patches a nd upper lung septal lines. Visualized upper abdomen shows probable ingested debris distending the stomach. There is also nodular ity of the liver suggesting cirrhosis. Bones: Endplate Schmorl's nodes T7 and T10. IMPRESSION: 1. Constellation of findings including cardiomegaly, extensive three-vessel coronary artery calcifica tions, mild scattered patchy groundglass, and upper lung septal lines suggests CHF with mild intersti tial pulmonary edema. 2. There are accompanying moderate bilateral pleural effusions with adjacent atelectasis and/or conso lidation. 3. Correlate for underlying cirrhosis.
--- NOTE | 2023-04-18 10:53 | P.CRDCN ---
History of Present Illness History of present illness: HISTORY OF PRESENT ILLNESS: This is a 63-year-old male with a past medical history significant for hypertension, hyperlipidemia, diabetes, peripheral vascular disease, CVA, ischemic cardiomyopathy, hepatitis C, and liver failure. Patient does not follow with a clinic charge nurse. We have been asked to see the patient in consultation for congestive heart failure. Patient examined at the bedside. Patient presented to the hospital with a chief complaint of shortness of breath. The patient states he was previously in a detention but has not been there since October. He states that his primary care physician is no longer in practice and he has not seen a doctor since that time. He states he has not been on any of his medications since October of this year. The patient currently reports shortness of breath. He currently denies chest pain or pressure. He denies dizziness or lightheadedness. Vital signs are stable. * EKG reveals sinus mechanism with PACs. No signs of acute ischemia * Chest xray small bilateral pleural effusions, density at the lateral left lung base. Correlate for pneumonia. Underlying mass not excluded. * Current home cardiac medications include none * Most recent echocardiogram obtained in 2020 revealed ejection fraction less than 20%, mild MR, mild TR REVIEW OF SYSTEMS: At the time of my exam: CONSTITUTIONAL: Denies fever or chills. HEENT: Denies blurred vision, vision changes, or eye pain. Denies hemoptysis CARDIOVASCULAR: Denies chest pain. Denies orthopnea. Denies PND. Denies palpitations RESPIRATORY: + shortness of breath. GASTROINTESTINAL: Denies abdominal pain. Denies nausea or vomiting. HEMATOLOGIC: Denies bleeding disorders. GENITOURINARY: Denies any blood in urine. SKIN: Denies pruitis. Denies rash. PHYSICAL EXAM: VITAL SIGNS: Reviewed. GENERAL: Well-developed in no acute distress. HEENT: Head is normocephalic. Pupils are equal, round. Sclerae anicteric. Mucous membranes of the mouth are moist. Neck supple. No JVD or thyromegaly LUNGS: Respirations even and unlabored. Lungs diminished at the bases with expiratory wheezing and crackles noted. HEART: Regular rate and rhythm. S1 and S2 heard. ABDOMEN: Soft. Nondistended. Nontender. EXTREMITIES: Normal range of motion. No clubbing or cyanosis. Peripheral pulses intact. 2+ bilateral lower extremity edema NEUROLOGIC: Awake and alert. Oriented x 3. ASSESSMENT: Shortness of breath Acute on chronic heart failure with reduced ejection fraction, 20% in 2020, proBNP 18,900 Coronary artery disease with previous stenting of the RCA, 2011, at [facility] Ischemic cardiomyopathy Hypertension Hyperlipidemia Diabetes, uncontrolled, hemoglobin A1c 9.4 History of CVA Peripheral vascular disease History of hepatitis C History of liver failure History of alcohol abuse Nicotine dependence Medication noncompliance PLAN: Obtain 2-D echo to assess cardiac structure and function Begin aspirin 81 mg daily, atorvastatin 40 mg at night, metoprolol succinate 25 mg daily, and Aldactone 25 mg daily Patient has been started on losartan-hydrochlorothiazide and Farxiga per internal medicine Begin IV Lasix 40 mg every 12 hours Daily weights, accurate I&O, and monitoring of kidney function Medication compliance reinforced Further recommendations pending patient's course Nurse practitioner note has been reviewed by physician. Signing provider agrees with the documented findings, assessment, and plan of care. Past Medical History Past Medical History: Coronary Artery Disease (CAD), Heart Failure, COPD, CVA/TIA, Diabetes Mellitus, Eye Disorder, Hyperlipidemia, Hypertension, Liver Disease, Myocardial Infarction (CT), Renal Disease Additional Past Medical History / Comment(s): Iischemic cardiomyopathy, PVCs, CVA 2019 with L sided weakness, chronic low back pain d/t vertebral fractures years ago as well as cervical pinched nerves, DDD, IDDM type II, neuropathy bilateral hands/legs and feet, pt states he can barely see with L eye and R eye vision is not very good/he is unsure why but believes it is d/t diabetes, liver disease/hepatitis C/ETOH abuse, recurrent ascities/paracentesis, recent R hip fracture d/t fall/recurrent falls. Last Myocardial Infarction Date:: October 2018 History of Any Multi-Drug Resistant Organisms: MRSA Date of last positivie culture/infection: 11/23/20 MDRO Source:: FOOT MRSA Past Surgical History: Cholecystectomy, Heart Catheterization, Heart Catheterization With Stent, Tonsillectomy Additional Past Surgical History / Comment(s): R heel I&D, colonoscopy. Past Anesthesia/Blood Transfusion Reactions: No Reported Reaction Date of Last Stent Placement:: 2011 Past Psychological History: Anxiety, Bipolar, Depression Additional Psychological History / Comment(s): Pt states he lives with his brother. Pt ambulates with a walker. He uses rides thru insurance. Case management/social workers are involved in pt's care Smoking Status: Current some day smoker Past Alcohol Use History: None Reported Additional Past Alcohol Use History / Comment(s): Pt started smoking in 1976. Pt states he has hx of heavy alcohol use but states none for years Past Drug Use History: Marijuana Additional Drug Use History / Comment(s): Marijuana occasionally. pt stated he had ICE on 02/24/2020 - Past Family History Mother Family Medical History: Cancer Father Family Medical History: Coronary Artery Disease (CAD), Diabetes Mellitus, Hypertension Medications and Allergies Home Medications Medication Instructions Recorded Confirmed Type No Known Home Medications 04/15/23 04/15/23 History Allergies Allergy/AdvReac Type Severity Reaction Status Date / Time Penicillins Allergy Unknown Verified 04/15/23 22:31 Childhood metformin AdvReac Mild Nausea Verified 04/15/23 22:31 Physical Exam Vitals: Vital Signs Temp Pulse Pulse Resp BP Pulse Ox 04/18/23 09:42 92 04/18/23 09:34 96 04/18/23 09:30 90 04/18/23 09:15 98.3 F 88 18 148/85 97 04/18/23 03:46 98.3 F 96 20 135/70 96 04/17/23 23:12 90 18 162/88 99 04/17/23 19:55 98.2 F 95 20 134/92 94 L 04/17/23 16:00 98 F 96 20 164/92 99 04/17/23 15:54 88 04/17/23 15:44 85 04/17/23 12:00 97.7 F 94 18 177/91 98 04/17/23 11:29 86 04/17/23 11:18 85 Intake and Output 04/17/23 04/18/23 04/18/23 22:59 06:59 14:59 Intake Total 360 360 Output Total 450 Balance 360 -450 360 Intake: Oral 360 360 Output: Urine 450 Other: Voiding Method Toilet Toilet # Voids 3 Results 04/16/23 05:38 04/16/23 05:53 Current Medications Generic Name Dose Route Start Last Admin Trade Name Freq PRN Reason Stop Dose Admin Albuterol/Ipratropium 3 ml 04/16/23 12:00 04/18/23 09:30 Ipratropium-Albuterol 3 Ml Neb INHALATION 3 ml RT-QID MIRLANDE Administration Aspirin 81 mg 04/18/23 09:00 04/18/23 09:17 Aspirin 81 Mg PO 81 mg DAILY MIRLANDE Administration Atorvastatin Calcium 40 mg 04/18/23 21:00 Atorvastatin 40 Mg Tab PO HS MIRLANDE Budesonide 0.5 mg 04/16/23 20:00 04/18/23 09:30 Budesonide 0.5 Mg/2 Ml Nebu INHALATION 0.5 mg RT-BID MIRLANDE Administration Dapagliflozin 10 mg 04/17/23 18:00 04/18/23 09:18 Dapagliflozin Propanediol 10 Mg Tablet PO 10 mg DAILY MIRLANDE Administration Dextrose/Water 25 ml 04/16/23 16:55 Dextrose 50% Syringe 50 Ml IVP PER PROTOCOL PRN Hypoglycemia Protocol Dextrose/Water 50 ml 04/16/23 16:55 Dextrose 50% Syringe 50 Ml IVP PER PROTOCOL PRN Hypoglycemia Protocol Enoxaparin Sodium 40 mg 04/17/23 18:15 04/18/23 09:18 Enoxaparin 40 Mg/0.4 Ml Syringe SQ 40 mg DAILY MIRLANDE Administration Furosemide 40 mg 04/18/23 09:00 04/18/23 09:17 Furosemide 10 Mg/Ml 4 Ml Vial IV 40 mg Q12HR MIRLANDE Administration HCTZ/Losartan Potassium 1 each 04/17/23 18:00 04/18/23 09:18 Losartan-Hctz 50-12.5 Mg 1 Each Tab PO 1 each DAILY MIRLANDE Administration Azithromycin 500 mg/ Sodium 250 mls @ 250 mls/hr 04/17/23 00:00 04/17/23 23:07 Chloride IVPB 04/19/23 00:59 250 mls/hr DAILY@0000 MIRLANDE Administration Protocol Ceftriaxone Sodium 2 gm/ 50 mls @ 100 mls/hr 04/17/23 00:00 04/17/23 23:07 Sodium Chloride IVPB 100 mls/hr Q24H MIRLANDE Administration Protocol Insulin Aspart 0 unit 04/16/23 17:30 04/18/23 06:22 Insulin Aspart (Novolog) 100 Unit/Ml Vial SQ 5 unit ACHS MIRLANDE Administration Protocol Methylprednisolone Sodium Succinate 60 mg 04/18/23 05:00 04/18/23 03:49 Methylprednisolone Sod Succi 125 Mg/2 Ml Vial IV 60 mg Q8H MIRLANDE Administration Metoprolol Succinate 25 mg 04/18/23 09:00 04/18/23 09:17 Metoprolol Succinate (Er) 25 Mg Tab.Er.24h PO 25 mg DAILY MIRLANDE Administration Morphine Sulfate 4 mg 04/15/23 22:38 04/18/23 06:26 Morphine Sulfate 4 Mg/Ml Syringe IV 4 mg Q4HR PRN Administration Severe Pain (Scale 7 to 10) Naloxone HCl 0.2 mg 04/15/23 22:38 Naloxone 0.4 Mg/Ml 1 Ml Vial IV Q2M PRN Opioid Reversal Ondansetron HCl 4 mg 04/15/23 22:38 Ondansetron 4 Mg/2 Ml Vial IVP Q8HR PRN Nausea And Vomiting Spironolactone 25 mg 04/18/23 09:00 04/18/23 09:17 Spironolactone 25 Mg Tab PO 25 mg DAILY MIRLANDE Administration Intake and Output 04/17/23 04/18/23 04/18/23 22:59 06:59 14:59 Intake Total 360 360 Output Total 450 Balance 360 -450 360 Intake: Oral 360 360 Output: Urine 450 Other: Voiding Method Toilet Toilet # Voids 3 04/16/23 05:38 04/16/23 05:53
--- NOTE | 2023-04-18 11:36 | CA ---
Transthoracic Echo Report Name: Jacobo Hall Age: 63 Gender: M : 1960 Exam Date: 04/18/2023 08:23 Exam Location: [place] [facility] Ht (in): 70 Wt (lb): 162 Ordering Physician: Eric Loyola MD Attending/Referring Phys: Can Line Examiner Adiel Cast Procedure CPT: Indications: chf Cardiac Hx: Technical Quality: Fair Contrast 1: Total Dose (mL): Contrast 2: Total Dose (mL): MEASUREMENTS (Male / Female) Normal Values 2D ECHO LV Diastolic Diameter PLAX 5.6 cm 4.2 - 5.9 / 3.9 - 5.3 cm LV Systolic Diameter PLAX 4.7 cm IVS Diastolic Thickness 1.1 cm 0.6 - 1.0 / 0.6 - 0.9 cm LVPW Diastolic Thickness 1.4 cm 0.6 - 1.0 / 0.6 - 0.9 cm LV Relative Wall Thickness 0.4 RV Internal Dim ED PLAX 3.4 cm LV Diastolic Volume MOD BP 90.9 cm??? 67 - 155 / 56 - 104 cm??? LV Systolic Volume MOD BP 66.7 cm??? 22 - 58 / 19 - 49 cm??? LV Ejection Fraction MOD BP 26.6 % >= 55 % LV Cardiac Index MOD BP 1191.4 cm???/min???m??? LV Diastolic Volume MOD 4C 89.7 cm??? LV Systolic Volume MOD 4C 66.7 cm??? LV Ejection Fraction MOD 4C 25.6 % LV Cardiac Index MOD 4C 1132.5 cm???/min???m??? LV Diastolic Length 4C 7.1 cm LV Systolic Length 4C 6.9 cm LV Diastolic Volume MOD 2C 88.5 cm??? LV Systolic Volume MOD 2C 66.6 cm??? LV Ejection Fraction MOD 2C 24.8 % LV Cardiac Index MOD 2C 1080.0 cm???/min???m??? LV Diastolic Length 2C 7.5 cm LV Systolic Length 2C 6.8 cm LA Volume 53.0 cm??? 18 - 58 / 22 - 52 cm??? LA Volume Index 27.8 cm???/m??? 16 - 28 cm???/m??? DOPPLER AV Peak Velocity 161.7 cm/s AV Peak Gradient 10.5 mmHg LVOT Peak Velocity 59.9 cm/s LVOT Peak Gradient 1.4 mmHg LVOT Velocity Time Integral 11.1 cm MV Peak Velocity 108.2 cm/s MV Peak Gradient 4.7 mmHg MV Mean Velocity 46.4 cm/s MV Mean Gradient 1.1 mmHg MV Velocity Time Integral 27.4 cm MR Peak Velocity 450.0 cm/s MR Peak Gradient 81.0 mmHg MV E' Velocity 5.7 cm/s TR Peak Velocity 360.8 cm/s TR Peak Gradient 52.1 mmHg Right Ventricular Systolic Press 57.1 mmHg PV Peak Velocity 165.4 cm/s PV Peak Gradient 10.9 mmHg FINDINGS Left Ventricle Normal LV size and wall thickness. Left ventricular ejection fraction is estimated at 20-25 %. Right Ventricle Normal right ventricular size. RVSP=57mmHg. Right Atrium Normal right atrial size. Left Atrium Normal left atrial size. LA volume index= 28ml/m2 Mitral Valve Structurally normal mitral valve. Trace MR. Aortic Valve Trileaflet aortic valve. Mild to moderate AV calcification. No aortic valve stenosis or regurgitation. Tricuspid Valve Structurally normal tricuspid valve. Mild to moderate TR. Pulmonic Valve Pulmonic valve not well visualized. Trace PI. Pericardium Normal pericardium. Aorta Normal size aortic root. CONCLUSIONS Severe LV dysfunction Moderate to severe pulmonary hypertension Calcific aortic valve without any significant stenosis Previewed by: Dr. Pepe Catherine MD (Electronically Signed) Final Date: 18 April 2023 11:35
[2023-04-18 11:52] LABS: Glucose,Whole Blood 375 mg/dL (70-110)
[2023-04-18 12:11] VITALS: BMI 23.2
--- NOTE | 2023-04-18 16:55 | P.CNPUL ---
History of Present Illness Consult date: 04/18/23 Requesting physician: Eric Loyola Reason for consult: dyspnea, cough, COPD, hypoxemia Chief complaint: Shortness of breath. History of present illness: Pulmonary consult dated 04/18/2023. 63-year-old male who was seen in the emergency department, on April 15, complaining of back pain, abdominal pain, chest pain, and shortness of breath. We are asked to see the patient because of his shortness of breath, and probable COPD exacerbation. In addition, he complains of cough, without phlegm production, and chills. No fever. He also has chest congestion, and chest tightness. Currently, the patient is seen in room 385. He's on 2 L of oxygen. The patient does continue to smoke cigarettes. He is not receiving any IV fluids. In addition to COPD, he has a history of multiple medical problems including CAD, CHF, CVA, diabetes, hypertension, hyperlipidemia, myocardial infarction, and multiple other medical problems. He's had a heart catheterization with stent, and has a previous history of methicillin-resistant staph aureus infection. Laboratory data includes a white count 5.2, hemoglobin 11.1, hematocrit 33.1, and a normal platelet count. Coagulation studies are normal. Sodium 135, potassium 4.4, chlorides 107, CO2 23, BUN 19, creatinine 1.13. Glucose 375. N-terminal proBNP is 18,900. Troponin is 0.068. Urine shows 3+ protein, 3+ glucose, but otherwise is negative. Chest x-ray is consistent with Lyme overload, bilateral pleural effusions. There is also a density at the left lung base. Computed tomography scan of the chest suggests CHF, bilateral pleural effusions, and possible underlying cirrhosis. Review of Systems REVIEW OF SYSTEMS: CONSTITUTIONAL: Weakness, chills. NEUROLOGIC: [ Negative.] HEENT: [ Negative.] CARDIAC: Chest pain PULMONARY: Shortness of breath, cough, without phlegm production. GI: [Negative.] : [Negative.] RHEUMATOLOGIC: [ Negative.] IMMUNOLOGIC: [ Negative.] ENDOCRINE: [Negative. ] DERMATOLOGIC: [Negative.] Past Medical History Past Medical History: Coronary Artery Disease (CAD), Heart Failure, COPD, CVA/TIA, Diabetes Mellitus, Eye Disorder, Hyperlipidemia, Hypertension, Liver Disease, Myocardial Infarction ([place]), Renal Disease Additional Past Medical History / Comment(s): Iischemic cardiomyopathy, PVCs, CVA 2019 with L sided weakness, chronic low back pain d/t vertebral fractures years ago as well as cervical pinched nerves, DDD, IDDM type II, neuropathy bilateral hands/legs and feet, pt states he can barely see with L eye and R eye vision is not very good/he is unsure why but believes it is d/t diabetes, liver disease/hepatitis C/ETOH abuse, recurrent ascities/paracentesis, recent R hip fracture d/t fall/recurrent falls. Last Myocardial Infarction Date:: October 2018 History of Any Multi-Drug Resistant Organisms: MRSA Date of last positivie culture/infection: 11/23/20 MDRO Source:: FOOT MRSA Past Surgical History: Cholecystectomy, Heart Catheterization, Heart Catheterization With Stent, Tonsillectomy Additional Past Surgical History / Comment(s): R heel I&D, colonoscopy. Past Anesthesia/Blood Transfusion Reactions: No Reported Reaction Date of Last Stent Placement:: 2011 Past Psychological History: Anxiety, Bipolar, Depression Additional Psychological History / Comment(s): Pt states he lives with his brother. Pt ambulates with a walker. He uses rides thru insurance. Case management/social workers are involved in pt's care Smoking Status: Current some day smoker Past Alcohol Use History: None Reported Additional Past Alcohol Use History / Comment(s): Pt started smoking in 1976. Pt states he has hx of heavy alcohol use but states none for years Past Drug Use History: Marijuana Additional Drug Use History / Comment(s): Marijuana occasionally. pt stated he had ICE on 02/24/2020 - Past Family History Mother Family Medical History: Cancer Father Family Medical History: Coronary Artery Disease (CAD), Diabetes Mellitus, Hypertension Medications and Allergies Home Medications Medication Instructions Recorded Confirmed Type No Known Home Medications 04/15/23 04/15/23 History Allergies Allergy/AdvReac Type Severity Reaction Status Date / Time Penicillins Allergy Unknown Verified 04/15/23 22:31 Childhood metformin AdvReac Mild Nausea Verified 04/15/23 22:31 Physical Exam Osteopathic Statement: *. No significant issues noted on an osteopathic structural exam other than those noted in the History and Physical/Consult. Vitals: Vital Signs Temp Pulse Pulse Resp BP Pulse Ox 04/18/23 15:01 90 18 139/71 97 04/18/23 12:40 88 04/18/23 12:31 90 04/18/23 11:48 89 16 136/88 97 04/18/23 09:42 92 04/18/23 09:34 96 04/18/23 09:30 90 04/18/23 09:15 98.3 F 88 18 148/85 97 04/18/23 03:46 98.3 F 96 20 135/70 96 04/17/23 23:12 90 18 162/88 99 04/17/23 19:55 98.2 F 95 20 134/92 94 L Intake and Output 04/18/23 04/18/23 04/18/23 06:59 14:59 22:59 Intake Total 596 Output Total 450 Balance -450 596 Intake: Oral 596 Output: Urine 450 Other: Voiding Method Toilet # Voids 3 1 Weight 73.5 kg No acute distress, oriented 3. Currently on 2 L. No use of accessory muscles or conversational dyspnea. HEENT examination is grossly unremarkable. Mucous membranes are moist. No oral lesions. Neck supple. Full range of motion. No adenopathy thyromegaly or neck vein distention. Cardiovascular examination reveals regular rhythm rate. S1-S2 normal. No S3 or S4. No discernible murmur noted. Heart sounds are distant. Heart rate 90 bpm. Lungs reveal coarse inspiratory and expiratory wheezes and rhonchi. Basilar crackles are noted. Cough is coarse and wet sounding. Breath sounds are equal bilaterally. 2 L saturation is 97%. Abdomen soft bowel sounds are heard. No masses or tenderness. Extremities are intact. No cyanosis clubbing or edema. Skin is without rash or lesion. Neurologic examination is brief but nonfocal. Results - Laboratory Findings CBC and BMP: 04/16/23 05:38 04/16/23 05:53 PT/INR, D-dimer PT 10.8 sec (10.0-12.5) 04/15/23 21:34 INR 1.0 (<1.2) 04/15/23 21:34 Abnormal lab findings: Abnormal Labs 04/15/23 04/15/23 04/15/23 21:34 21:34 21:34 RBC Hgb Hct Lymphocytes # 0.8 L Sodium 134 L BUN 21 H Glucose 209 H POC Glucose (mg/dL) Hemoglobin A1c Calcium 8.2 L Troponin I 0.068 H* Total Protein Albumin 3.2 L Urine Protein Urine Glucose (UA) Urine Blood Amorphous Sediment Hyaline Casts Urine Mucus 04/15/23 04/16/23 04/16/23 21:34 05:38 05:53 RBC 3.50 L Hgb 11.1 L D Hct 33.1 L Lymphocytes # Sodium 135 L BUN Glucose 191 H POC Glucose (mg/dL) Hemoglobin A1c Calcium 7.7 L Troponin I Total Protein 5.4 L Albumin 2.7 L Urine Protein 3+ H Urine Glucose (UA) 3+ H Urine Blood Small H Amorphous Sediment Rare H Hyaline Casts 47 H Urine Mucus Few H 04/16/23 04/16/23 04/17/23 17:40 19:45 06:17 RBC Hgb Hct Lymphocytes # Sodium BUN Glucose POC Glucose (mg/dL) 230 H 204 H 190 H Hemoglobin A1c Calcium Troponin I Total Protein Albumin Urine Protein Urine Glucose (UA) Urine Blood Amorphous Sediment Hyaline Casts Urine Mucus 04/17/23 04/17/23 04/17/23 07:46 11:40 16:38 RBC Hgb Hct Lymphocytes # Sodium BUN Glucose POC Glucose (mg/dL) 235 H 231 H Hemoglobin A1c 9.4 H Calcium Troponin I Total Protein Albumin Urine Protein Urine Glucose (UA) Urine Blood Amorphous Sediment Hyaline Casts Urine Mucus 04/17/23 04/18/23 04/18/23 19:43 06:06 11:50 RBC Hgb Hct Lymphocytes # Sodium BUN Glucose POC Glucose (mg/dL) 283 H 365 H 375 H Hemoglobin A1c Calcium Troponin I Total Protein Albumin Urine Protein Urine Glucose (UA) Urine Blood Amorphous Sediment Hyaline Casts Urine Mucus - Diagnostic Findings Chest x-ray: image reviewed Assessment and Plan Assessment: Acute hypoxemic respiratory failure likely multifactorial, in part related to underlying CHF, as well as COPD exacerbation. In addition, cannot rule out pneumonia. History of coronary artery disease, with previous heart catheterization stent, and myocardial infarction. History of CHF. History of CVA. Diabetes mellitus, with diabetic neuropathy. History of hypertension. History of hyperlipidemia. History of alcohol abuse, with chronic liver disease, hepatitis C, and recurrent abdominal ascites. Ongoing tobacco use with nicotine addiction. Multiple other medical problems and comorbidities. Plan: Plan dated 04/18/2023. We ordered a pro-calcitonin level, and if it comes back normal, we should discontinue antibiotics. In addition, for his COPD, he is on Solu-Medrol, bude sonide, motor all, and updrafts with albuterol sulfate and ipratropium bromide. Additional recommendations and suggestions are forthcoming. We will continue to follow the patient make recommendations along the way. The patient will also be seen by cardiology. Prognosis is guarded. Time with Patient: Greater than 30
[2023-04-18 17:00] LABS: Glucose,Whole Blood 182 mg/dL (70-110)
[2023-04-18 19:37] LABS: Glucose,Whole Blood 312 mg/dL (70-110)
[2023-04-18] MEDS: ATORVASTATIN 40 MG TAB PO SCH (20:14)
[2023-04-18] MEDS: SYMBICORT 160-4.5 MCG INHALER INHALATION SCH (21:32)
[2023-04-18] MEDS: DOCUSATE 100 MG CAP PO SCH (23:44)
[2023-04-19] MEDS: AZITHROMYCIN 500 MG in SODIUM CHLORIDE 0.9% 250 ML IVPB SCH (00:17)
[2023-04-19] MEDS: MORPHINE SULFATE 4 MG/ML SYRINGE IV PRN ×5 (03:18→21:04)
[2023-04-19 06:13] LABS: Glucose,Whole Blood 367 mg/dL (70-110)
[2023-04-19] MEDS: methylPREDNISolone SOD SUCCI 125 MG/2 ML VIAL IV SCH ×3 (06:16→20:22)
[2023-04-19] MEDS: INSULIN ASPART (NovoLOG) 100 UNIT/ML VIAL SQ SCH ×4 (06:17→20:28)
[2023-04-19] MEDS: LOSARTAN-HCTZ 50-12.5 MG 1 EACH TAB PO SCH (08:50)
[2023-04-19] MEDS: ENOXAPARIN 40 MG/0.4 ML SYRINGE SQ SCH (08:51)
[2023-04-19] MEDS: ASPIRIN 81 MG PO SCH (08:51)
[2023-04-19] MEDS: DAPAGLIFLOZIN PROPANEDIOL 10 MG TABLET PO SCH (08:52)
[2023-04-19] MEDS: SPIRONOLACTONE 25 MG TAB PO SCH (08:52)
[2023-04-19] MEDS: FUROSEMIDE 10 MG/ML 4 ML VIAL IV SCH ×2 (08:53→20:21)
[2023-04-19] MEDS: METOPROLOL SUCCINATE (ER) 25 MG TAB.ER.24H PO SCH (08:53)
[2023-04-19] MEDS: DOCUSATE 100 MG CAP PO SCH ×2 (08:53→20:21)
[2023-04-19] MEDS: IPRATROPIUM-ALBUTEROL 3 ML NEB INHALATION SCH ×5 (10:08→21:06)
[2023-04-19] MEDS: SYMBICORT 160-4.5 MCG INHALER INHALATION SCH ×2 (10:08→21:06)
[2023-04-19 10:57] LABS: African American GFR (CKD) 64 (>60 ml/min/1.73 sqM); Anion Gap 12 mmol/L; Blood Urea Nitrogen 55 mg/dL (9-20); Calcium 8.3 mg/dL (8.4-10.2); Carbon Dioxide 20 mmol/L (22-30); Chloride 96 mmol/L (98-107); Glucose 257 mg/dL (74-99); Non-African American GFR(CKD) 55 (>60 ml/min/1.73 sqM); Sodium 128 mmol/L (137-145)
[2023-04-19 11:06] LABS: Potassium 5.2 mmol/L (3.5-5.1)
[2023-04-19 11:33] LABS: Glucose,Whole Blood 268 mg/dL (70-110)
--- NOTE | 2023-04-19 12:48 | P.PN ---
Subjective Progress Note Date: 04/19/23 Principal diagnosis: Shortness of breath. Pulmonary consult dated 04/18/2023. 63-year-old male who was seen in the emergency department, on April 15, complaining of back pain, abdominal pain, chest pain, and shortness of breath. We are asked to see the patient because of his shortness of breath, and probable COPD exacerbation. In addition, he complains of cough, without phlegm production, and chills. No fever. He also has chest congestion, and chest tightness. Currently, the patient is seen in room 385. He's on 2 L of oxygen. The patient does continue to smoke cigarettes. He is not receiving any IV fluids. In addition to COPD, he has a history of multiple medical problems including CAD, CHF, CVA, diabetes, hypertension, hyperlipidemia, myocardial infarction, and multiple other medical problems. He's had a heart catheterization with stent, and has a previous history of methicillin-resistant staph aureus infection. Laboratory data includes a white count 5.2, hemoglobin 11.1, hematocrit 33.1, and a normal platelet count. Coagulation studies are normal. Sodium 135, potassium 4.4, chlorides 107, CO2 23, BUN 19, creatinine 1.13. Glucose 375. N-terminal proBNP is 18,900. Troponin is 0.068. Urine shows 3+ protein, 3+ glucose, but otherwise is negative. Chest x-ray is consistent with Lyme overload, bilateral pleural effusions. There is also a d ensity at the left lung base. Computed tomography scan of the chest suggests CHF, bilateral pleural effusions, and possible underlying cirrhosis. Progress note dated 04/19/2023. 63-year-old male seen yesterday in consultation. Please see the note above. The patient is seen again today in room 385. He is resting comfortably in bed, without any respiratory distress. The patient's on 3 L of oxygen by nasal cannula. He is starting to feel better. Sodium 128, potassium 5.2, chlorides 96, CO2 20, anion gap 12, BUN 35, and creatinine 1.35. Calcium is 8.3. Pro- calcitonin is only minimally elevated at 0.1. Objective - Vital Signs Vital signs: Vital Signs Temp 97.6 F 04/19/23 08:48 Pulse 92 04/19/23 10:19 Resp 18 04/19/23 08:48 BP 145/76 04/19/23 08:48 Pulse Ox 96 04/19/23 08:48 FiO2 Intake & Output 04/18/23 04/19/23 04/19/23 18:59 06:59 18:59 Intake Total 832 20 250 Balance 832 20 250 Weight 73.5 kg 77.5 kg Intake: IV 20 10 Invasive Line 2 10 Invasive Line 3 10 10 Oral 832 240 Other: Voiding Method Toilet Toilet Urinal Urinal # Voids 1 5 - Exam No acute distress, oriented 3. Currently on 3 L. No use of accessory muscles or conversational dyspnea. HEENT examination is grossly unremarkable. Mucous membranes are moist. No oral lesions. Neck supple. Full range of motion. No adenopathy thyromegaly or neck vein distention. Cardiovascular examination reveals regular rhythm rate. S1-S2 normal. No S3 or S4. No discernible murmur noted. Heart sounds are distant. Heart rate 92 bpm. Lungs reveal coarse inspiratory and expiratory wheezes and rhonchi. Basilar crackles are noted. Cough is coarse and wet sounding. Breath sounds are equal bilaterally. 3 L saturation is 99%. Room air saturation is 96%. Abdomen soft bowel sounds are heard. No masses or tenderness. Extremities are intact. No cyanosis clubbing or edema. Skin is without rash or lesion. Neurologic examination is brief but nonfocal. - Labs CBC & Chem 7: 04/16/23 05:38 04/19/23 10:02 Labs: Abnormal Lab Results - Last 24 Hours (Table) 04/18/23 04/18/23 04/18/23 Range/Units 12:55 16:58 19:35 Sodium (137-145) mmol/L Potassium (3.5-5.1) mmol/L Chloride (98-107) mmol/L Carbon Dioxide (22-30) mmol/L BUN (9-20) mg/dL Creatinine (0.66-1.25) mg/dL Glucose (74-99) mg/dL POC Glucose (mg/dL) 182 H 312 H (70-110) mg/dL Calcium (8.4-10.2) mg/dL Procalcitonin 0.10 H (0.02-0.09) ng/mL 10/21/23 10/21/23 10/21/23 Range/Units 06:12 10:02 11:32 Sodium 128 L (137-145) mmol/L Potassium 5.2 H (3.5-5.1) mmol/L Chloride 96 L (98-107) mmol/L Carbon Dioxide 20 L (22-30) mmol/L BUN 55 H (9-20) mg/dL Creatinine 1.35 H (0.66-1.25) mg/dL Glucose 257 H (74-99) mg/dL POC Glucose (mg/dL) 367 H 268 H (70-110) mg/dL Calcium 8.3 L (8.4-10.2) mg/dL Procalcitonin (0.02-0.09) ng/mL Microbiology - Last 24 Hours (Table) 04/15/23 23:25 Blood Culture - Preliminary Blood 04/15/23 23:40 Blood Culture - Preliminary Blood Assessment and Plan Assessment: Acute hypoxemic respiratory failure likely multifactorial, in part related to underlying CHF, as well as COPD exacerbation. In addition, cannot rule out pneumonia. History of coronary artery disease, with previous heart catheterization stent, and myocardial infarction. History of CHF. History of CVA. Diabetes mellitus, with diabetic neuropathy. History of hypertension. History of hyperlipidemia. History of alcohol abuse, with chronic liver disease, hepatitis C, and recurrent abdominal ascites. Ongoing tobacco use with nicotine addiction. Multiple other medical problems and comorbidities. Plan: Plan dated 04/18/2023. We ordered a pro-calcitonin level, and if it comes back normal, we should discontinue antibiotics. In addition, for his COPD, he is on Solu-Medrol, budesonide, motor all, and updrafts with albuterol sulfate and ipratropium bromide. Additional recommendations and suggestions are forthcoming. We will continue to follow the patient make recommendations along the way. The patient will also be seen by cardiology. Prognosis is guarded. Plan dated 04/19/2023. The patient's pro-calcitonin level was only minimally elevated. The patient's medications are appropriate. He is feeling better. He likely will not be discharged early next week. He is on oxygen at 3 L, and other appropriate medications as prescribed yesterday. We will continue to follow the patient make recommendations along the way. Labs, x-rays, medications are reviewed. The patient will be seen by cardiology as well. Prognosis is guarded. Time with Patient: Less than 30
[2023-04-19 16:16] LABS: Glucose,Whole Blood 201 mg/dL (70-110)
--- NOTE | 2023-04-19 16:53 | P.PN ---
Subjective Progress Note Date: 04/19/23 SUBJECTIVE: Patient reports feeling better from cardiac vessel standpoint. His shortness of breath and lower extremity swelling has improved significantly. His labs shows a creatinine of 1.35 creatinine was 1.13 yesterday Blood pressure 137/80 heart rate 77 PHYSICAL EXAMINATION Vital signs reviewed. Head: Normocephalic. Eyes: Sclerae nonicteric. Neck: Brisk carotid upstroke, elevated jugular venous distention. Lungs: Clear to auscultation. Heart: Regular rate and rhythm, S1-S2, no S3, no murmur or rub. Abdomen: Soft nontender, positive bowel sounds no organomegaly. Extremities: 2+ pitting edema. ASSESSMENT Shortness of breath Acute on chronic heart failure with reduced ejection fraction, 20% in 2020, proBNP 18,900 Coronary artery disease with previous stenting of the RCA, 2011, at [facility] Ischemic cardiomyopathy Hypertension Hyperlipidemia Diabetes, uncontrolled, hemoglobin A1c 9.4 History of CVA Peripheral vascular disease History of hepatitis C History of liver failure History of alcohol abuse Nicotine dependence Medication noncompliance Suspected PAD PLAN: aspirin 81 mg daily, atorvastatin 40 mg metoprolol succinate 25 mg daily, and Aldactone 25 mg daily, Continue Farxiga Stop losartan HCTZ due to hyponatremia. Start losartan 50 mg instead. Begin IV Lasix 40 mg every 12 hours Moderate renal function. Possible heart cath on Friday morning Objective - Vital Signs Vital signs: Vital Signs Temp 97.4 F L 04/19/23 16:05 Pulse 83 04/19/23 16:48 Resp 18 04/19/23 16:05 BP 137/66 04/19/23 16:05 Pulse Ox 95 04/19/23 16:43 FiO2 Intake & Output 04/18/23 04/19/23 04/19/23 18:59 06:59 18:59 Intake Total 832 20 490 Balance 832 20 490 Weight 73.5 kg 77.5 kg Intake: IV 20 10 Invasive Line 2 10 Invasive Line 3 10 10 Oral 832 480 Other: Voiding Method Toilet Toilet Urinal Urinal # Voids 1 5 1 - Labs CBC & Chem 7: 04/16/23 05:38 04/19/23 10:02 Labs: Abnormal Lab Results - Last 24 Hours (Table) 04/18/23 04/18/23 04/18/23 Range/Units 12:55 16:58 19:35 Sodium (137-145) mmol/L Potassium (3.5-5.1) mmol/L Chloride (98-107) mmol/L Carbon Dioxide (22-30) mmol/L BUN (9-20) mg/dL Creatinine (0.66-1.25) mg/dL Glucose (74-99) mg/dL POC Glucose (mg/dL) 182 H 312 H (70-110) mg/dL Calcium (8.4-10.2) mg/dL Procalcitonin 0.10 H (0.02-0.09) ng/mL 04/19/23 04/19/23 04/19/23 Range/Units 06:12 10:02 11:32 Sodium 128 L (137-145) mmol/L Potassium 5.2 H (3.5-5.1) mmol/L Chloride 96 L (98-107) mmol/L Carbon Dioxide 20 L (22-30) mmol/L BUN 55 H (9-20) mg/dL Creatinine 1.35 H (0.66-1.25) mg/dL Glucose 257 H (74-99) mg/dL POC Glucose (mg/dL) 367 H 268 H (70-110) mg/dL Calcium 8.3 L (8.4-10.2) mg/dL Procalcitonin (0.02-0.09) ng/mL 04/19/23 Range/Units 16:15 Sodium (137-145) mmol/L Potassium (3.5-5.1) mmol/L Chloride (98-107) mmol/L Carbon Dioxide (22-30) mmol/L BUN (9-20) mg/dL Creatinine (0.66-1.25) mg/dL Glucose (74-99) mg/dL POC Glucose (mg/dL) 201 H (70-110) mg/dL Calcium (8.4-10.2) mg/dL Procalcitonin (0.02-0.09) ng/mL Microbiology - Last 24 Hours (Table) 04/15/23 23:25 Blood Culture - Preliminary Blood 04/15/23 23:40 Blood Culture - Preliminary Blood
[2023-04-19] MEDS: SODIUM CHLORIDE 0.9% 1,000 ML IV SCH (17:06)
[2023-04-19] MEDS: ATORVASTATIN 40 MG TAB PO SCH (20:21)
[2023-04-19 20:22] LABS: Glucose,Whole Blood 179 mg/dL (70-110)
[2023-04-19] MEDS: DOXYCYCLINE 100 MG CAP PO SCH (20:27)
[2023-04-20] MEDS: MORPHINE SULFATE 4 MG/ML SYRINGE IV PRN ×6 (00:44→21:47)
[2023-04-20] MEDS: methylPREDNISolone SOD SUCCI 125 MG/2 ML VIAL IV SCH ×3 (04:15→21:48)
[2023-04-20 05:37] LABS: Glucose,Whole Blood 486 mg/dL (70-110)
[2023-04-20 05:37] LABS: Glucose,Whole Blood 511 mg/dL (70-110)
[2023-04-20] MEDS ORDERED: INSULIN ASPART (NovoLOG) 100 UNIT/ML VIAL SQ ONE (06:45)
[2023-04-20] MEDS: INSULIN ASPART (NovoLOG) 100 UNIT/ML VIAL SQ SCH ×4 (06:46→21:48)
[2023-04-20] MEDS: SPIRONOLACTONE 25 MG TAB PO SCH (08:34)
[2023-04-20] MEDS: DOCUSATE 100 MG CAP PO SCH ×2 (08:34→21:49)
[2023-04-20] MEDS: ASPIRIN 81 MG PO SCH (08:34)
[2023-04-20] MEDS: METOPROLOL SUCCINATE (ER) 25 MG TAB.ER.24H PO SCH (08:34)
[2023-04-20] MEDS: LOSARTAN 50 MG TAB PO SCH (08:34)
[2023-04-20] MEDS: ENOXAPARIN 40 MG/0.4 ML SYRINGE SQ SCH (08:35)
[2023-04-20] MEDS: FUROSEMIDE 10 MG/ML 4 ML VIAL IV SCH ×2 (08:35→21:48)
[2023-04-20] MEDS: DAPAGLIFLOZIN PROPANEDIOL 10 MG TABLET PO SCH (08:36)
[2023-04-20] MEDS: DOXYCYCLINE 100 MG CAP PO SCH ×2 (08:36→21:49)
[2023-04-20] MEDS: IPRATROPIUM-ALBUTEROL 3 ML NEB INHALATION SCH ×4 (09:28→20:38)
[2023-04-20] MEDS: SYMBICORT 160-4.5 MCG INHALER INHALATION SCH ×2 (09:28→20:38)
[2023-04-20 11:52] LABS: Glucose,Whole Blood 336 mg/dL (70-110)
--- NOTE | 2023-04-20 12:05 | P.PN ---
Subjective Progress Note Date: 04/20/23 63-year-old male who was seen in the emergency department, on April 15, complaining of back pain, abdominal pain, chest pain, and shortness of breath. We are asked to see the patient because of his shortness of breath, and probable COPD exacerbation. In addition, he complains of cough, without phlegm production, and chills. No fever. He also has chest congestion, and chest tightness. Currently, the patient is seen in room 385. He's on 2 L of oxygen. The patient does continue to smoke cigarettes. He is not receiving any IV fluids. In addition to COPD, he has a history of multiple medical problems including CAD, CHF, CVA, diabetes, hypertension, hyperlipidemia, myocardial infarction, and multiple other medical problems. He's had a heart catheterization with stent, and has a previous history of methicillin-resistant staph aureus infection. Laboratory data includes a white count 5.2, hemoglobin 11.1, hematocrit 33.1, and a normal platelet count. Coagulation studies are normal. Sodium 135, potassium 4.4, chlorides 107, CO2 23, BUN 19, creatinine 1.13. Glucose 375. N-terminal proBNP is 18,900. Troponin is 0.068. Urine shows 3+ protein, 3+ glucose, but otherwise is negative. Chest x-ray is consistent with Lyme overload, bilateral pleural effusions. There is also a density at the left lung base. Computed tomography scan of the chest suggests CHF, bilateral pleural effusions, and possible underlying cirrhosis. Progress note dated 04/19/2023. 63-year-old male seen yesterday in consultation. Please see the note above. The patient is seen again today in room 385. He is resting comfortably in bed, without any respiratory distress. The patient's on 3 L of oxygen by nasal cannula. He is starting to feel better. Sodium 128, potassium 5.2, chlorides 96, CO2 20, anion gap 12, BUN 35, and creatinine 1.35. Calcium is 8.3. Pro- calcitonin is only minimally elevated at 0.1. The patient is seen today 04/20/2023 in follow-up on the regular medical floor. He is currently up ambulating in his room. Awake and alert in no acute distress. He states he is breathing easier today compared to yesterday. Maintaining good O2 saturations in the mid 90s on room air. He's been afebrile. Hemodynamically stable. Blood cultures reveal no growth. Blood sugar 336. He is continued on DuoNeb inhalations, Symbicort, Solu-Medrol. Lovenox for DVT prophylaxis. Remains on IV diuretics. No accurate I&O. Continued on doxycycline. Objective - Vital Signs Vital signs: Vital Signs Temp 97.8 F 04/20/23 08:30 Pulse 90 04/20/23 09:39 Resp 18 04/20/23 08:30 BP 146/82 04/20/23 08:30 Pulse Ox 98 04/20/23 09:29 FiO2 Intake & Output 04/19/23 04/20/23 04/20/23 18:59 06:59 18:59 Intake Total 730 250 Balance 730 250 Weight 79.8 kg Intake: IV 10 10 Invasive Line 3 10 10 Oral 720 240 Other: Voiding Method Toilet Toilet Toilet Urinal Urinal Urinal # Voids 1 3 3 # Bowel Movements 1 2 - Exam GENERAL EXAM: Alert, active, pleasant 63-year-old male, on room air, comfortable in no apparent distress. HEAD: Normocephalic. EYES: Normal reaction of pupils, equal size. NOSE: Clear with pink turbinates. THROAT: No erythema or exudates. NECK: No masses, no JVD. CHEST: No chest wall deformity. LUNGS: Equal air entry with bibasilar crackles. CVS: S1 and S2 normal with no audible murmur, regular rhythm. ABDOMEN: No hepatosplenomegaly, normal bowel sounds, no guarding or rigidity. SPINE: No scoliosis or deformity SKIN: No rashes CENTRAL NERVOUS SYSTEM: No focal deficits, tone is normal in all 4 extremities. EXTREMITIES: There is no peripheral edema. No clubbing, no cyanosis. Peripher al pulses are intact. - Labs CBC & Chem 7: 04/16/23 05:38 04/19/23 10:02 Labs: Abnormal Lab Results - Last 24 Hours (Table) 04/19/23 04/19/23 04/20/23 Range/Units 16:15 20:15 05:34 POC Glucose (mg/dL) 201 H 179 H 511 H (70-110) mg/dL 04/20/23 04/20/23 Range/Units 05:35 11:45 POC Glucose (mg/dL) 486 H 336 H (70-110) mg/dL Assessment and Plan Assessment: Acute hypoxemic respiratory failure likely multifactorial, in part related to underlying CHF, as well as COPD exacerbation. In addition, cannot rule out pneumonia. History of coronary artery disease, with previous heart catheterization stent, and myocardial infarction. History of CHF. History of CVA. Diabetes mellitus, with diabetic neuropathy. History of hypertension. History of hyperlipidemia. History of alcohol abuse, with chronic liver disease, hepatitis C, and recurrent abdominal ascites. Ongoing tobacco use with nicotine addiction. Multiple other medical problems and comorbidities. Plan: The patient was seen and evaluated Medications and labs reviewed Currently stable in room air Continued on bronchodilators, steroids Continued on IV diuretics Plan is for possible cardiac catheterization in the a.m. We will continue to follow I have personally seen and examined the patient, performed the documentation and the assessment and plan as written. Number of minutes spent on the visit: 10.
[2023-04-20] MEDS: SODIUM CHLORIDE 0.9% 1,000 ML IV SCH ×2 (12:30→23:22)
[2023-04-20 17:01] LABS: Glucose,Whole Blood 227 mg/dL (70-110)
[2023-04-20] MEDS: HYDROcodone/APAP 5-325MG 1 EACH TAB PO PRN (17:45)
[2023-04-20] MEDS ORDERED: ALPRAZolam 0.25 MG TAB PO PRN (20:07)
[2023-04-20] MEDS ORDERED: SODIUM CHLORIDE 0.9% 1,000 ML in EMPTY BAG 1 BAG IV ONE (20:07)
--- NOTE | 2023-04-20 20:09 | P.PN ---
Subjective Progress Note Date: 04/20/23 SUBJECTIVE: Patient reports feeling better from cardiac vessel standpoint. His shortness of breath and lower extremity swelling has improved significantly. His labs shows a creatinine of 1.35 creatinine was 1.13 yesterday Blood pressure 137/80 heart rate 77 PHYSICAL EXAMINATION Vital signs reviewed. Head: Normocephalic. Eyes: Sclerae nonicteric. Neck: Brisk carotid upstroke, elevated jugular venous distention. Lungs: Clear to auscultation. Heart: Regular rate and rhythm, S1-S2, no S3, no murmur or rub. Abdomen: Soft nontender, positive bowel sounds no organomegaly. Extremities: 2+ pitting edema. ASSESSMENT Shortness of breath Acute on chronic heart failure with reduced ejection fraction, 20% in 2020, proBNP 18,900 Coronary artery disease with previous stenting of the RCA, 2011, at [facility] Ischemic cardiomyopathy Hypertension Hyperlipidemia Diabetes, uncontrolled, hemoglobin A1c 9.4 History of CVA Peripheral vascular disease History of hepatitis C History of liver failure History of alcohol abuse Nicotine dependence Medication noncompliance Suspected PAD PLAN: aspirin 81 mg daily, atorvastatin 40 mg metoprolol succinate 25 mg daily, and Aldactone 25 mg daily, Continue Farxiga Continue losartan 50 mg instead. Continue IV Lasix 40 mg every 12 hours Moderate renal function. Heart cath with Dr. Maldonado Objective - Vital Signs Vital signs: Vital Signs Temp 98.1 F 04/20/23 16:00 Pulse 91 04/20/23 16:08 Resp 16 04/20/23 16:00 BP 132/79 04/20/23 16:00 Pulse Ox 96 04/20/23 16:00 FiO2 Intake & Output 04/20/23 04/20/23 04/21/23 06:59 18:59 06:59 Intake Total 710 Balance 710 Weight 79.8 kg Intake: IV 10 Invasive Line 3 10 Oral 700 Other: Voiding Method Toilet Toilet Urinal Urinal # Voids 3 2 # Bowel Movements 1 0 - Labs CBC & Chem 7: 04/16/23 05:38 04/19/23 10:02 Labs: Abnormal Lab Results - Last 24 Hours (Table) 04/19/23 04/20/23 04/20/23 Range/Units 20:15 05:34 05:35 POC Glucose (mg/dL) 179 H 511 H 486 H (70-110) mg/dL 04/20/23 04/20/23 Range/Units 11:45 16:53 POC Glucose (mg/dL) 336 H 227 H (70-110) mg/dL
[2023-04-20 20:54] LABS: Glucose,Whole Blood 237 mg/dL (70-110)
[2023-04-20] MEDS: ATORVASTATIN 40 MG TAB PO SCH (21:47)
--- NOTE | 2023-04-20 22:35 | PN ---
PROGRESS NOTE DATE OF SERVICE: 04/19/2023 SUBJECTIVE: A 63-year-old white male. He is breathing better. He is up walking around the room. He is up going to take a shower tonight. OBJECTIVE: VITAL SIGNS: Blood pressure is 130s over 80s, pulse is 87. LUNGS: Scattered rhonchi, wheeze. HEART: S1, S2. ABDOMEN: Soft. ASSESSMENT: A1c is 9.4. He has new onset diabetes, history of cerebrovascular accident, history of hepatitis C, liver failure, alcohol abuse, nicotine addiction, ischemic cardiomyopathy, hypertension, dyslipidemia, ejection fraction is 20%, ischemic cardiomyopathy. Prognosis is guarded. He is on metoprolol, atorvastatin, aspirin, aldactone, Farxiga. He is on losartan, IV Lasix. Possibly a heart catheterization on Friday. MMODL / IJN: [id number] /
[2023-04-21] MEDS: HYDROcodone/APAP 5-325MG 1 EACH TAB PO PRN ×4 (00:04→20:34)
--- NOTE | 2023-04-21 02:11 | PN ---
PROGRESS NOTE The patient came in with COPD, shortness of breath, cough, congestion, COPD exacerbation, possible aspiration pneumonia. He feels much better. He has some shortness of breath a few nights ago. He was given Lasix doctors IVC improved to mid 90s on room air. He is on inhalers, updrafts, etc. Doxycycline antibiotics. Blood pressure 145/82, pulse 82, respiratory rate 18, temperature 97.8, hemoglobin 11.1, and white count 5.2. Abdomen is soft and nontender. Skin range of motion full x4. Pupils equal, round, and reactive to light and accommodation. Neurologic alert and oriented x3. ASSESSMENT: Acute hypoxemic respiratory failure secondary to CHF, COPD, history of coronary artery disease, history of CVA, diabetes mellitus, hypertension, dyslipidemia, alcohol abuse, nicotine addiction. He is improving. He is stable on room air. Possibly go home soon and plans for possible cardiac catheterization if AMI, Cardiology decides to it. Otherwise return to current treatment. MMODL / IJN: [id number] /
[2023-04-21] MEDS: MORPHINE SULFATE 4 MG/ML SYRINGE IV PRN ×5 (02:52→21:11)
[2023-04-21] MEDS: methylPREDNISolone SOD SUCCI 125 MG/2 ML VIAL IV SCH ×2 (06:11→12:30)
[2023-04-21] MEDS: SPIRONOLACTONE 25 MG TAB PO SCH (06:12)
[2023-04-21] MEDS: FUROSEMIDE 10 MG/ML 4 ML VIAL IV SCH ×2 (06:12→20:36)
[2023-04-21] MEDS: DOCUSATE 100 MG CAP PO SCH ×2 (06:25→20:34)
[2023-04-21] MEDS: ENOXAPARIN 40 MG/0.4 ML SYRINGE SQ SCH (06:25)
[2023-04-21 06:26] LABS: Glucose,Whole Blood 276 mg/dL (70-110)
[2023-04-21] MEDS: METOPROLOL SUCCINATE (ER) 25 MG TAB.ER.24H PO SCH (06:30)
[2023-04-21] MEDS: DOXYCYCLINE 100 MG CAP PO SCH ×2 (06:30→21:11)
[2023-04-21] MEDS: LOSARTAN 50 MG TAB PO SCH (06:30)
[2023-04-21] MEDS: ASPIRIN 81 MG PO SCH (06:30)
[2023-04-21] MEDS: INSULIN ASPART (NovoLOG) 100 UNIT/ML VIAL SQ SCH ×4 (06:31→20:35)
[2023-04-21] MEDS: DAPAGLIFLOZIN PROPANEDIOL 10 MG TABLET PO SCH (06:31)
[2023-04-21] MEDS ORDERED: HEPARIN SODIUM,PORCINE (1 ML) 2,500 UNIT in SODIUM CHLORIDE 0.9% 250 ML IRRIGATION PRN (07:00)
[2023-04-21] MEDS ORDERED: HEPARIN SODIUM,PORCINE 10,000 UNIT in SODIUM CHLORIDE 0.9% 1,000 ML IRRIGATION PRN (07:00)
[2023-04-21] MEDS: SYMBICORT 160-4.5 MCG INHALER INHALATION SCH ×2 (08:30→20:47)
[2023-04-21] MEDS: IPRATROPIUM-ALBUTEROL 3 ML NEB INHALATION SCH ×4 (08:30→20:47)
[2023-04-21 08:34] LABS: African American GFR (CKD) 44 (>60 ml/min/1.73 sqM); Anion Gap 13 mmol/L; Blood Urea Nitrogen 82 mg/dL (9-20); Calcium 8.1 mg/dL (8.4-10.2); Carbon Dioxide 20 mmol/L (22-30); Chloride 96 mmol/L (98-107); Glucose 248 mg/dL (74-99); Non-African American GFR(CKD) 38 (>60 ml/min/1.73 sqM); Potassium 5.2 mmol/L (3.5-5.1); Sodium 129 mmol/L (137-145)
[2023-04-21] MEDS ORDERED: FUROSEMIDE 10 MG/ML 4 ML VIAL IV STA (10:26)
[2023-04-21] MEDS ORDERED: SPIRONOLACTONE 25 MG TAB PO STA (10:27)
[2023-04-21 11:32] LABS: Glucose,Whole Blood 384 mg/dL (70-110)
[2023-04-21] MEDS: ISOSORBIDE DINITRATE 20 MG TAB PO SCH ×3 (12:29→21:11)
--- NOTE | 2023-04-21 14:20 | P.PN ---
Subjective Progress Note Date: 04/21/23 SUBJECTIVE: Patient reports feeling better from cardiac vessel standpoint. His shortness of breath and lower extremity swelling has improved significantly. His labs shows a creatinine of 1.35 creatinine was 1.13 yesterday Blood pressure 137/80 heart rate 77 04/21 Patient is seen today in follow-up. He was tentatively scheduled for cardiac catheterization today with Dr. Maldonado but renal function was worse this morning and cardiac cath will be postponed. He denies having any chest pain at this time. Blood pressure 155/90, heart rate in the 80s, afebrile, pulse ox 100% on room air. Sodium 129, potassium 5.2, BUN 82 and creatinine 1.83. PHYSICAL EXAMINATION Vital signs reviewed. Head: Normocephalic. Eyes: Sclerae nonicteric. Neck: Brisk carotid upstroke, elevated jugular venous distention. Lungs: Clear to auscultation. Heart: Regular rate and rhythm, S1-S2, no S3, no murmur or rub. Abdomen: Soft nontender, positive bowel sounds no organomegaly. Extremities: 2+ pitting edema. ASSESSMENT Shortness of breath Acute on chronic heart failure with reduced ejection fraction, 20% in 2020, proBNP 18,900 Coronary artery disease with previous stenting of the RCA, 2011, at [facility] Ischemic cardiomyopathy Hypertension Hyperlipidemia Diabetes, uncontrolled, hemoglobin A1c 9.4 History of CVA Peripheral vascular disease History of hepatitis C History of liver failure History of alcohol abuse Nicotine dependence Medication noncompliance Suspected PAD PLAN: aspirin 81 mg daily, atorvastatin 40 mg metoprolol succinate 25 mg daily, and Aldactone 25 mg daily, Continue Farxiga Continue losartan 50 mg instead. Continue IV Lasix 40 mg every 12 hours Heart cath with Dr. Maldonado possibly on Friday if renal function is improved, nothing by mouth after midnight, BMP in the morning Nurse practitioner note has been reviewed, I agree with the documented findings and plan of care. Patient was seen and examined. Objective - Vital Signs Vital signs: Vital Signs Temp 97.5 F L 04/21/23 12: Pulse 85 04/21/23 12:23 Resp 16 04/21/23 12:23 BP 155/90 04/21/23 12:23 Pulse Ox 100 04/21/23 12:23 FiO2 Intake & Output 04/20/23 04/21/23 04/21/23 18:59 06:59 18:59 Intake Total 710 130 Output Total 3 Balance 710 127 Weight 79.4 kg Intake: IV 10 10 Invasive Line 3 10 Invasive Line 4 10 Oral 700 120 Output: Urine 3 Other: Voiding Method Toilet Toilet Toilet Urinal Urinal Urinal # Voids 2 2 # Bowel Movements 0 - Labs CBC & Chem 7: 04/16/23 05:38 04/21/23 07:55 Labs: Abnormal Lab Results - Last 24 Hours (Table) 04/20/23 04/20/23 04/21/23 Range/Units 16:53 20:52 06:25 Sodium (137-145) mmol/L Potassium (3.5-5.1) mmol/L Chloride (98-107) mmol/L Carbon Dioxide (22-30) mmol/L BUN (9-20) mg/dL Creatinine (0.66-1.25) mg/dL Glucose (74-99) mg/dL POC Glucose (mg/dL) 227 H 237 H 276 H (70-110) mg/dL Calcium (8.4-10.2) mg/dL 04/21/23 04/21/23 Range/Units 07:55 11:31 Sodium 129 L (137-145) mmol/L Potassium 5.2 H (3.5-5.1) mmol/L Chloride 96 L (98-107) mmol/L Carbon Dioxide 20 L (22-30) mmol/L BUN 82 H (9-20) mg/dL Creatinine 1.83 H (0.66-1.25) mg/dL Glucose 248 H (74-99) mg/dL POC Glucose (mg/dL) 384 H (70-110) mg/dL Calcium 8.1 L (8.4-10.2) mg/dL Microbiology - Last 24 Hours (Table) 04/15/23 23:25 Blood Culture - Final Blood 04/15/23 23:40 Blood Culture - Final Blood
--- NOTE | 2023-04-21 14:23 | P.PN ---
Subjective Progress Note Date: 04/21/23 63-year-old male who was seen in the emergency department, on April 15, complaining of back pain, abdominal pain, chest pain, and shortness of breath. We are asked to see the patient because of his shortness of breath, and probable COPD exacerbation. In addition, he complains of cough, without phlegm production, and chills. No fever. He also has chest congestion, and chest tightness. Currently, the patient is seen in room 385. He's on 2 L of oxygen. The patient does continue to smoke cigarettes. He is not receiving any IV fluids. In addition to COPD, he has a history of multiple medical problems including CAD, CHF, CVA, diabetes, hypertension, hyperlipidemia, myocardial infarction, and multiple other medical problems. He's had a heart catheterization with stent, and has a previous history of methicillin-resistant staph aureus infection. Laboratory data includes a white count 5.2, hemoglobin 11.1, hematocrit 33.1, and a normal platelet count. Coagulation studies are normal. Sodium 135, potassium 4.4, chlorides 107, CO2 23, BUN 19, creatinine 1.13. Glucose 375. N-terminal proBNP is 18,900. Troponin is 0.068. Urine shows 3+ protein, 3+ glucose, but otherwise is negative. Chest x-ray is consistent with Lyme overload, bilateral pleural effusions. There is also a density at the left lung base. Computed tomography scan of the chest suggests CHF, bilateral pleural effusions, and possible underlying cirrhosis. Progress note dated 04/19/2023. 63-year-old male seen yesterday in consultation. Please see the note above. The patient is seen again today in room 385. He is resting comfortably in bed, without any respiratory distress. The patient's on 3 L of oxygen by nasal cannula. He is starting to feel better. Sodium 128, potassium 5.2, chlorides 96, CO2 20, anion gap 12, BUN 35, and creatinine 1.35. Calcium is 8.3. Pro- calcitonin is only minimally elevated at 0.1. The patient is seen today 04/20/2023 in follow-up on the regular medical floor. He is currently up ambulating in his room. Awake and alert in no acute distress. He states he is breathing easier today compared to yesterday. Maintaining good O2 saturations in the mid 90s on room air. He's been afebrile. Hemodynamically stable. Blood cultures reveal no growth. Blood sugar 336. He is continued on DuoNeb inhalations, Symbicort, Solu-Medrol. Lovenox for DVT prophylaxis. Remains on IV diuretics. No accurate I&O. Continued on doxycycline. On today's evaluation of 04/21/2023, the patient is doing well. No specific complaints. He was hospitalized for COPD exacerbation shortness of breath. The patient was also complaining of some chest pain/abdominal pain/back pain. Ov erall condition stable. He has previous MRSA infection of the lung. Patient also has had previous cardiac catheterization stenting. Currently is on Symbicort. He is on DuoNeb about treatments [id number]. His blood cultures are negative. His blood work shows a sodium level of 129, potassium of 5.2, BUN is at 82 with a creatinine of 1.83. The patient was supposed to undergo a cardiac catheterization today. However this could cancel that the patient developed an acute kidney injury and the creatinine came from 1.35 and is up to 1.83 and based on that, the cardiac catheterization was placed on hold. History of any chest pain. Is currently on room air oxygen. He is on doxycycline. Pro-calcitonin level is at 0.4. He has developed a new onset heart failure and ejection fraction was in the order of 20% and the patient has a proBNP level of 17,500. Diuretics and also on hold. Objective - Vital Signs Vital signs: Vital Signs Temp 97.6 F 04/21/23 07:58 Pulse 80 04/21/23 07:58 Resp 18 04/21/23 07:58 BP 153/90 04/21/23 07:58 Pulse Ox 97 04/21/23 07:58 FiO2 Intake & Output 04/20/23 04/21/23 04/21/23 18:59 06:59 18:59 Intake Total 710 130 Balance 710 130 Weight 79.4 kg Intake: IV 10 10 Invasive Line 3 10 Invasive Line 4 10 Oral 700 120 Other: Voiding Method Toilet Toilet Toilet Urinal Urinal Urinal # Voids 2 2 # Bowel Movements 0 - Exam GENERAL EXAM: Alert, active, pleasant 63-year-old male, on room air, comfortable in no apparent distress. HEAD: Normocephalic. EYES: Normal reaction of pupils, equal size. NOSE: Clear with pink turbinates. THROAT: No erythema or exudates. NECK: No masses, no JVD. CHEST: No chest wall deformity. LUNGS: Equal air entry with bibasilar crackles. CVS: S1 and S2 normal with no audible murmur, regular rhythm. ABDOMEN: No hepatosplenomegaly, normal bowel sounds, no guarding or rigidity. SPINE: No scoliosis or deformity SKIN: No rashes CENTRAL NERVOUS SYSTEM: No focal deficits, tone is normal in all 4 extremities. EXTREMITIES: There is no peripheral edema. No clubbing, no cyanosis. Peripheral pulses are intact. - Labs CBC & Chem 7: 04/16/23 05:38 04/21/23 07:55 Labs: Abnormal Lab Results - Last 24 Hours (Table) 04/20/23 04/20/23 04/20/23 Range/Units 11:45 16:53 20:52 Sodium (137-145) mmol/L Potassium (3.5-5.1) mmol/L Chloride (98-107) mmol/L Carbon Dioxide (22-30) mmol/L BUN (9-20) mg/dL Creatinine (0.66-1.25) mg/dL Glucose (74-99) mg/dL POC Glucose (mg/dL) 336 H 227 H 237 H (70-110) mg/dL Calcium (8.4-10.2) mg/dL 04/21/23 04/21/23 Range/Units 06:25 07:55 Sodium 129 L (137-145) mmol/L Potassium 5.2 H (3.5-5.1) mmol/L Chloride 96 L (98-107) mmol/L Carbon Dioxide 20 L (22-30) mmol/L BUN 82 H (9-20) mg/dL Creatinine 1.83 H (0.66-1.25) mg/dL Glucose 248 H (74-99) mg/dL POC Glucose (mg/dL) 276 H (70-110) mg/dL Calcium 8.1 L (8.4-10.2) mg/dL Microbiology - Last 24 Hours (Table) 04/15/23 23:25 Blood Culture - Final Blood 04/15/23 23:40 Blood Culture - Final Blood Assessment and Plan Plan: Acute hypoxemic respiratory failure likely multifactorial, in part related to underlying CHF, as well as COPD exacerbation. In addition, cannot rule out pneumonia. The patient is currently on room air oxygen. History of coronary artery disease, with previous heart catheterization stent, and myocardial infarction. History of CHF.The patient has systolic heart failure with an ejection fraction of 20-25%, right ventricular systolic pressures around 57. Acute kidney injury and the creatinine is up to 1.8. This is probably related to cardiorenal factors/CHF and use of diuretics. History of CVA. Diabetes mellitus, with diabetic neuropathy. History of hypertension. History of hyperlipidemia. History of alcohol abuse, with chronic liver disease, hepatitis C, and recurrent abdominal ascites. Ongoing tobacco use with nicotine addiction. Multiple other medical problems and comorbidities. Plan: We'll place diuretics on hold Monitor renal function Currently stable in room air Continued on bronchodilators, steroids Plan is for possible cardiac catheterization on hold as the patient has developed HEATHER We will continue to follow
[2023-04-21 16:57] LABS: Glucose,Whole Blood 123 mg/dL (70-110)
[2023-04-21] MEDS: PANTOPRAZOLE 40 MG TABLET PO SCH (17:04)
[2023-04-21 20:21] LABS: Glucose,Whole Blood 416 mg/dL (70-110)
[2023-04-21] MEDS: ATORVASTATIN 40 MG TAB PO SCH (20:34)
[2023-04-22] MEDS: MORPHINE SULFATE 4 MG/ML SYRINGE IV PRN ×4 (01:44→16:47)
--- NOTE | 2023-04-22 03:41 | PN ---
PROGRESS NOTE SUBJECTIVE: This is a 63-year-old white male. He remains on DuoNeb q.i.d., Farxiga for CHF, Symbicort inhaler, Lipitor for cholesterol. Insulin for sugar. His sugar is better, he is up sitting in bed, eating good. He did not do his heart catheterization due to increased creatinine up to 1.8 from 1.4. He is breathing better, stopping his Lasix. His creatinine, will check in the morning again. Hopefully it will be better, he can get his heart cath done, and he can go home. He is breathing much better. He is up moving around the room, still having exertional chest pain more. OBJECTIVE: PSYCH: Fair mood and affect. NEUROLOGIC: Alert and oriented x3. CARDIOVASCULAR: S1, S2. HEMATOLOGY: Negative for Homans. PSYCH: Fair mood and affect. ASSESSMENT: COPD, aspiration pneumonia, acute on chronic renal insufficiency, atypical chest pain, continue him on breathing treatments with DuoNeb and Pulmicort. Waiting for heart catheterization in the morning. Check creatinine in the morning, without Lasix this should improve. He might be able to get his heart catheterization. Please see further orders. MMODL / IJN: [id number] /
[2023-04-22] MEDS: SODIUM CHLORIDE 0.9% 1,000 ML IV SCH (03:44)
[2023-04-22] MEDS: PANTOPRAZOLE 40 MG TABLET PO SCH ×2 (06:07→17:38)
[2023-04-22 06:21] LABS: Glucose,Whole Blood 218 mg/dL (70-110)
[2023-04-22] MEDS: INSULIN ASPART (NovoLOG) 100 UNIT/ML VIAL SQ SCH ×3 (06:25→17:39)
[2023-04-22] MEDS: SYMBICORT 160-4.5 MCG INHALER INHALATION SCH (08:01)
[2023-04-22] MEDS: IPRATROPIUM-ALBUTEROL 3 ML NEB INHALATION SCH ×3 (08:01→15:48)
[2023-04-22] MEDS: DAPAGLIFLOZIN PROPANEDIOL 10 MG TABLET PO SCH (08:34)
[2023-04-22] MEDS: ASPIRIN 81 MG PO SCH (08:34)
[2023-04-22] MEDS: HYDROcodone/APAP 5-325MG 1 EACH TAB PO PRN ×2 (08:34→17:38)
[2023-04-22] MEDS: ISOSORBIDE DINITRATE 20 MG TAB PO SCH ×2 (08:35→17:38)
[2023-04-22] MEDS: METOPROLOL SUCCINATE (ER) 25 MG TAB.ER.24H PO SCH (08:35)
[2023-04-22] MEDS: SPIRONOLACTONE 25 MG TAB PO SCH (08:35)
[2023-04-22] MEDS: DOCUSATE 100 MG CAP PO SCH (08:35)
[2023-04-22] MEDS: DOXYCYCLINE 100 MG CAP PO SCH (08:35)
[2023-04-22] MEDS ORDERED: predniSONE 20 MG TAB PO SCH (09:00)
[2023-04-22 09:11] LABS: African American GFR (CKD) 45 (>60 ml/min/1.73 sqM); Anion Gap 12 mmol/L; Blood Urea Nitrogen 87 mg/dL (9-20); Calcium 8.5 mg/dL (8.4-10.2); Carbon Dioxide 23 mmol/L (22-30); Chloride 99 mmol/L (98-107); Glucose 107 mg/dL (74-99); Non-African American GFR(CKD) 39 (>60 ml/min/1.73 sqM); Potassium 4.9 mmol/L (3.5-5.1); Sodium 134 mmol/L (137-145)
[2023-04-22 10:36] VITALS: TEMP 98
[2023-04-22] MEDS: ENOXAPARIN 40 MG/0.4 ML SYRINGE SQ SCH (11:15)
[2023-04-22] MEDS: FUROSEMIDE 10 MG/ML 4 ML VIAL IV SCH (11:15)
[2023-04-22 11:45] LABS: Glucose,Whole Blood 149 mg/dL (70-110)
[2023-04-22] MEDS ORDERED: hydrOXYzine HCL 25 MG TAB PO PRN (12:49)
--- NOTE | 2023-04-22 13:17 | P.PN ---
Subjective Progress Note Date: 04/22/23 63-year-old male who was seen in the emergency department, on April 15, complaining of back pain, abdominal pain, chest pain, and shortness of breath. We are asked to see the patient because of his shortness of breath, and probable COPD exacerbation. In addition, he complains of cough, without phlegm production, and chills. No fever. He also has chest congestion, and chest tightness. Currently, the patient is seen in room 385. He's on 2 L of oxygen. The patient does continue to smoke cigarettes. He is not receiving any IV fluids. In addition to COPD, he has a history of multiple medical problems including CAD, CHF, CVA, diabetes, hypertension, hyperlipidemia, myocardial infarction, and multiple other medical problems. He's had a heart catheterization with stent, and has a previous history of methicillin-resistant staph aureus infection. Laboratory data includes a white count 5.2, hemoglobin 11.1, hematocrit 33.1, and a normal platelet count. Coagulation studies are normal. Sodium 135, potassium 4.4, chlorides 107, CO2 23, BUN 19, creatinine 1.13. Glucose 375. N-terminal proBNP is 18,900. Troponin is 0.068. Urine shows 3+ protein, 3+ glucose, but otherwise is negative. Chest x-ray is consistent with Lyme overload, bilateral pleural effusions. There is also a density at the left lung base. Computed tomography scan of the chest suggests CHF, bilateral pleural effusions, and possible underlying cirrhosis. Progress note dated 04/19/2023. 63-year-old male seen yesterday in consultation. Please see the note above. The patient is seen again today in room 385. He is resting comfortably in bed, without any respiratory distress. The patient's on 3 L of oxygen by nasal cannula. He is starting to feel better. Sodium 128, potassium 5.2, chlorides 96, CO2 20, anion gap 12, BUN 35, and creatinine 1.35. Calcium is 8.3. Pro- calcitonin is only minimally elevated at 0.1. The patient is seen today 04/20/2023 in follow-up on the regular medical floor. He is currently up ambulating in his room. Awake and alert in no acute distress. He states he is breathing easier today compared to yesterday. Maintaining good O2 saturations in the mid 90s on room air. He's been afebrile. Hemodynamically stable. Blood cultures reveal no growth. Blood sugar 336. He is continued on DuoNeb inhalations, Symbicort, Solu-Medrol. Lovenox for DVT prophylaxis. Remains on IV diuretics. No accurate I&O. Continued on doxycycline. On today's evaluation of 04/21/2023, the patient is doing well. No specific complaints. He was hospitalized for COPD exacerbation shortness of breath. The patient was also complaining of some chest pain/abdominal pain/back pain. Ov erall condition stable. He has previous MRSA infection of the lung. Patient also has had previous cardiac catheterization stenting. Currently is on Symbicort. He is on DuoNeb about treatments [id number]. His blood cultures are negative. His blood work shows a sodium level of 129, potassium of 5.2, BUN is at 82 with a creatinine of 1.83. The patient was supposed to undergo a cardiac catheterization today. However this could cancel that the patient developed an acute kidney injury and the creatinine came from 1.35 and is up to 1.83 and based on that, the cardiac catheterization was placed on hold. History of any chest pain. Is currently on room air oxygen. He is on doxycycline. Pro-calcitonin level is at 0.4. He has developed a new onset heart failure and ejection fraction was in the order of 20% and the patient has a proBNP level of 17,500. Diuretics and also on hold. On today's evaluation of 04/22/2023, the patient is being seen for a follow-up. The patient is doing well. He remains on room air oxygen. No respiratory difficulties. He was supposed to undergo a cardiac catheterization and this was placed on hold as the patient developed an acute kidney injury. Based on that, the meanwhile, review blood work was done today and the patient's creatinine remains unchanged at 1.8 and the patient remains off diuretics for the time being. He remains on doxycycline. As mentioned is on room air oxygen with a pulse ox of 99%. Breathing is nonlabored. Blood work from today shows a BUN of 87 with a creatinine of 1.8 and sodium levels is 134. Objective - Vital Signs Vital signs: Vital Signs Temp 98.0 F 04/22/23 08:00 Pulse 74 04/22/23 08:00 Resp 16 04/22/23 08:00 BP 131/73 04/22/23 08:00 Pulse Ox 100 04/22/23 08:00 FiO2 Intake & Output 04/21/23 04/22/23 04/22/23 18:59 06:59 18:59 Intake Total 850 Balance 850 Intake: IV 10 Invasive Line 4 10 Oral 840 Other: Voiding Method Toilet Toilet Toilet Urinal Urinal Urinal # Voids 3 2 2 - Exam GENERAL EXAM: Alert, active, pleasant 63-year-old male, on room air, comfortable in no apparent distress. HEAD: Normocephalic. EYES: Normal reaction of pupils, equal size. NOSE: Clear with pink turbinates. THROAT: No erythema or exudates. NECK: No masses, no JVD. CHEST: No chest wall deformity. LUNGS: Equal air entry with bibasilar crackles. CVS: S1 and S2 normal with no audible murmur, regular rhythm. ABDOMEN: No hepatosplenomegaly, normal bowel sounds, no guarding or rigidity. SPINE: No scoliosis or deformity SKIN: No rashes CENTRAL NERVOUS SYSTEM: No focal deficits, tone is normal in all 4 extremities. EXTREMITIES: There is no peripheral edema. No clubbing, no cyanosis. Peripheral pulses are intact. - Labs CBC & Chem 7: 04/16/23 05:38 04/22/23 08:27 Labs: Abnormal Lab Results - Last 24 Hours (Table) 04/21/23 04/21/23 04/21/23 Range/Units 11:31 16:57 20:19 Sodium (137-145) mmol/L BUN (9-20) mg/dL Creatinine (0.66-1.25) mg/dL Glucose (74-99) mg/dL POC Glucose (mg/dL) 384 H 123 H 416 H (70-110) mg/dL 04/22/23 04/22/23 Range/Units 06:18 08:27 Sodium 134 L (137-145) mmol/L BUN 87 H (9-20) mg/dL Creatinine 1.80 H (0.66-1.25) mg/dL Glucose 107 H (74-99) mg/dL POC Glucose (mg/dL) 218 H (70-110) mg/dL Assessment and Plan Plan: Acute hypoxemic respiratory failure likely multifactorial, in part related to underlying CHF, as well as COPD exacerbation. In addition, cannot rule out pneumonia. The patient is currently on room air oxygen. History of coronary artery disease, with previous heart catheterization stent, and myocardial infarction. History of CHF.The patient has systolic heart failure with an ejection fraction of 20-25%, right ventricular systolic pressures around 57. Acute kidney injury and the creatinine is up to 1.8. This is probably related to cardiorenal factors/CHF and use of diuretics. History of CVA. Diabetes mellitus, with diabetic neuropathy. History of hypertension. History of hyperlipidemia. History of alcohol abuse, with chronic liver disease, hepatitis C, and recurrent abdominal ascites. Ongoing tobacco use with nicotine addiction. Multiple other medical problems and comorbidities. Plan: Keep the diuretics on hold Monitor renal function, creatinine is stable at 1.8 Currently stable in room air Continued on bronchodilators, steroids Plan is for possible cardiac catheterization once the renal function stabilized. We will continue to follow
--- NOTE | 2023-04-22 14:03 | P.PN ---
Subjective Progress Note Date: 04/22/23 SUBJECTIVE: Patient reports feeling better from cardiac vessel standpoint. His shortness of breath and lower extremity swelling has improved significantly. His labs shows a creatinine of 1.35 creatinine was 1.13 yesterday Blood pressure 137/80 heart rate 77 04/21 Patient is seen today in follow-up. He was tentatively scheduled for cardiac catheterization today with Dr. Maldonado but renal function was worse this morning and cardiac cath will be postponed. He denies having any chest pain at this time. Blood pressure 155/90, heart rate in the 80s, afebrile, pulse ox 100% on room air. Sodium 129, potassium 5.2, BUN 82 and creatinine 1.83. 04/22 Repeat renal function is about the same from yesterday with creatinine 1.8, BUN 87. Sodium 134, potassium 4.9. Patient was tentatively scheduled for cardiac cath today but due to renal function, this will be postponed. Patient continues to have lower extremity edema and patient thinks that he is urinating less volume. He is on IV Lasix 40 mg every 12 hours but he has not received the last 3 doses. Fluid restrictions will be changed to 2500 ML's. Blood pressure 126/63, heart rate in the 70s. PHYSICAL EXAMINATION Vital signs reviewed. Head: Normocephalic. Eyes: Sclerae nonicteric. Neck: Brisk carotid upstroke, elevated jugular venous distention. Lungs: Clear to auscultation. Heart: Regular rate and rhythm, S1-S2, no S3, no murmur or rub. Abdomen: Soft nontender, positive bowel sounds no organomegaly. Extremities: 2+ pitting edema. ASSESSMENT Shortness of breath Acute on chronic heart failure with reduced ejection fraction, 20% in 2020, proBNP 18,900 Coronary artery disease with previous stenting of the RCA, 2012, at [facility] Ischemic cardiomyopathy Hypertension Hyperlipidemia Diabetes, uncontrolled, hemoglobin A1c 9.4 History of CVA Peripheral vascular disease History of hepatitis C History of liver failure History of alcohol abuse Nicotine dependence Medication noncompliance Suspected PAD PLAN: Continue aspirin 81 mg daily, atorvastatin 40 mg metoprolol succinate 25 mg daily, and Aldactone 25 mg daily, Continue Farxiga Patient is off losartan, IV Lasix due to renal failure Heart cath with Dr. Maldonado once renal function is improved, BMP in the morning Nurse practitioner note has been reviewed, I agree with the documented findings and plan of care. Patient was seen and examined. Objective - Vital Signs Vital signs: Vital Signs Temp 98.0 F 04/22/23 08:00 Pulse 79 04/22/23 11:30 Resp 18 04/22/23 11:30 BP 126/63 04/22/23 11:30 Pulse Ox 99 04/22/23 11:30 FiO2 Intake & Output 04/21/23 04/22/23 04/22/23 18:59 06:59 18:59 Intake Total 850 476 Balance 850 476 Intake: IV 10 Invasive Line 4 10 Oral 840 476 Other: Voiding Method Toilet Toilet Toilet Urinal Urinal Urinal # Voids 3 2 2 - Labs CBC & Chem 7: 04/16/23 05:38 04/22/23 08:27 Labs: Abnormal Lab Results - Last 24 Hours (Table) 04/21/23 04/21/23 04/22/23 Range/Units 16:57 20:19 06:18 Sodium (137-145) mmol/L BUN (9-20) mg/dL Creatinine (0.66-1.25) mg/dL Glucose (74-99) mg/dL POC Glucose (mg/dL) 123 H 416 H 218 H (70-110) mg/dL 04/22/23 04/22/23 Range/Units 08:27 11:42 Sodium 134 L (137-145) mmol/L BUN 87 H (9-20) mg/dL Creatinine 1.80 H (0.66-1.25) mg/dL Glucose 107 H (74-99) mg/dL POC Glucose (mg/dL) 149 H (70-110) mg/dL
[2023-04-22 17:11] LABS: Glucose,Whole Blood 529 mg/dL (70-110)
[2023-04-22 19:15] VITALS: BP 137/74; PULSE 75; RESP 16
--- NOTE | 2023-04-22 20:35 | PN ---
PROGRESS NOTE SUBJECTIVE: The patient wants to go home today. He is going to sign out AMA, but he does not want to wait until heart catheterization. He keeps day in and day out. MEDICATIONS: We discharged him home with, 1. Doxycycline 100 mg b.i.d. 2. Some inhalers and nebulizer treatments. 3. 20 t.i.d. 4. Atorvastatin 40 daily. 5. Metoprolol-XL 25 mg daily. 6. Spironolactone 25 mg daily. 7. DuoNeb updrafts q.i.d. Follow up in the office in a week. CONDITION: Stable. PROGNOSIS: Guarded. We will send him home today. CHARLINE / IJN: [id number] /
== END 2023-04-22 20:02 | disposition home or self-care (01) | DRG 194 ==
LOC: EC 19:42 → 4SSUR 22:38 → 3SCARD 04-16 00:36
PROVIDERS: ADMIT Family Medicine; ATTEND Family Medicine
DX: I13.0 Hypertensive heart and chronic kidney disease with heart failure and stage 1 through stage 4 chronic kidney disease, or unspecified chronic kidney disease (principal); I25.5 Ischemic cardiomyopathy; I25.2 Old myocardial infarction; I50.23 Acute on chronic systolic (congestive) heart failure; I69.354 Hemiplegia and hemiparesis following cerebral infarction affecting left non-dominant side; J44.1 Chronic obstructive pulmonary disease with (acute) exacerbation; J96.01 Acute respiratory failure with hypoxia; M54.16 Radiculopathy, lumbar region; J69.0 Pneumonitis due to inhalation of food and vomit; I25.10 Atherosclerotic heart disease of native coronary artery without angina pectoris; F41.9 Anxiety disorder, unspecified; F31.9 Bipolar disorder, unspecified; N18.9 Chronic kidney disease, unspecified; N17.9 Acute kidney failure, unspecified; I49.3 Ventricular premature depolarization; F17.210 Nicotine dependence, cigarettes, uncomplicated; I49.1 Atrial premature depolarization; G89.29 Other chronic pain; E11.22 Type 2 diabetes mellitus with diabetic chronic kidney disease; I08.1 Rheumatic disorders of both mitral and tricuspid valves; E11.40 Type 2 diabetes mellitus with diabetic neuropathy, unspecified; E11.51 Type 2 diabetes mellitus with diabetic peripheral angiopathy without gangrene; E11.65 Type 2 diabetes mellitus with hyperglycemia; E78.5 Hyperlipidemia, unspecified; F10.11 Alcohol abuse, in remission; H54.3 Unqualified visual loss, both eyes; Z82.49 Family history of ischemic heart disease and other diseases of the circulatory system; Z83.3 Family history of diabetes mellitus; Z86.14 Personal history of Methicillin resistant Staphylococcus aureus infection; Z91.148 Patient's other noncompliance with medication regimen for other reason; Z95.5 Presence of coronary angioplasty implant and graft; Z53.9 Procedure and treatment not carried out, unspecified reason; Z71.3 Dietary counseling and surveillance; Z88.0 Allergy status to penicillin; Z88.8 Allergy status to other drugs, medicaments and biological substances
CPT/HCPCS: 36415; 71046; 71250; 74176; 80048; 80053; 81001; 82140; 83036; 83605; 83735; 83880; 84100; 84145; 84484; 85025; 85610; 85730; 87040; 93005; 93306; 94640; 94760; 96361; 96365; 96368; 96375; 96376; 99285

== ENCOUNTER 2023-05-20 15:09 | Inpatient (IN) | payer OTHER ==
--- NOTE | 2023-05-20 15:19 | ED ---
General Adult HPI - General Source: patient, RN notes reviewed Mode of arrival: ambulatory Limitations: no limitations <Dk Henao - Last Filed: 05/20/23 15:18> - History of Present Illness -: days(s) Location: chest, left, right, lower extremity Quality: aching, dull, constant Consistency: constant, intermittent Worsens with: movement Associated Symptoms: chest pain, cough, diaphoresis, loss of appetite, malaise, shortness of breath, weakness Treatments Prior to Arrival: none <Leonid Anand - Last Filed: 05/27/23 00:25> - General Stated complaint: SOB SWOLLEN LEGS Time Seen by Provider: 05/20/23 15:18 - History of Present Illness Initial comments: 63-year-old male presents emergency Department with chief complaint of dyspnea. Patient states she's had some worsening symptoms last 4-5 days. He states he has a history of congestive heart failure. Patient states that his legs are swollen he states is very weak and states that he cannot breathe at this time. He states also makes it difficult to walk. (Dk Henao) This is a 63-year-old male to the emergency department for evaluation of severe shortness of breath or chest pain today. Significant abdominal pain lower Shor ty pain and swelling. Patient is having difficulty getting around of secondary to exertional shortness of breath as well as pain in his legs (Leonid Anand) - Related Data Home Medications Medication Instructions Recorded Confirmed Albuterol Sulfate [Ventolin HFA] 1 - 2 puff INHALATION RT-Q6H PRN 05/20/23 05/20/23 Fluticasone Propion/Salmeterol 1 puff INHALATION RT-BID 05/20/23 05/20/23 [Advair 250-50 Diskus] HYDROcodone/APAP 10-325MG [Trimont 1 tab PO QID 05/20/23 05/20/23 10-325] Ipratropium-Albuterol Nebulize 3 ml INHALATION DIRECTED 05/20/23 05/20/23 [Duoneb 0.5 mg-3 mg/3 ml Soln] Tiotropium 2.5 Mcg/Puff [Spiriva 2 puff INHALATION RT-DAILY 05/20/23 05/20/23 Respimat 2.5 Mcg] Previous Rx's Medication Instructions Recorded Aspirin 81 mg PO DAILY 90 Days #90 tab 04/22/23 Atorvastatin [Lipitor] 40 mg PO HS 90 Days #90 tab 04/22/23 Dapagliflozin Propanediol [Farxiga] 10 mg PO DAILY 30 Days #30 tab 04/22/23 Isosorbide Dinitrate [Isordil] 20 mg PO TID 90 Days #180 tab 04/22/23 Metoprolol Succinate (ER) [Toprol 25 mg PO DAILY 90 Days #90 tab 04/22/23 XL] Pantoprazole [Protonix] 40 mg PO AC-BID 90 Days #180 tab 04/22/23 Spironolactone [Aldactone] 25 mg PO DAILY 90 Days #90 tab 04/22/23 Allergies Allergy/AdvReac Type Severity Reaction Status Date / Time Penicillins Allergy Unknown Verified 05/20/23 19:54 Childhood metformin AdvReac Mild Nausea Verified 05/20/23 19:54 Review of Systems ROS Other: All systems not noted in ROS Statement are negative. <Dk Henao - Last Filed: 05/20/23 15:18> ROS Other: All systems not noted in ROS Statement are negative. <Leonid Anand - Last Filed: 05/27/23 00:25> ROS Statement: Those systems with pertinent positive or pertinent negative responses have been documented in the HPI. Past Medical History Past Medical History: Coronary Artery Disease (CAD), Heart Failure, COPD, CVA/TIA, Diabetes Mellitus, Eye Disorder, Hyperlipidemia, Hypertension, Liver Disease, Myocardial Infarction (PR), Renal Disease Additional Past Medical History / Comment(s): Iischemic cardiomyopathy, PVCs, CVA 2019 with L sided weakness, chronic low back pain d/t vertebral fractures years ago as well as cervical pinched nerves, DDD, IDDM type II, neuropathy bilateral hands/legs and feet, pt states he can barely see with L eye and R eye vision is not very good/he is unsure why but believes it is d/t diabetes, liver disease/hepatitis C/ETOH abuse, recurrent ascities/paracentesis, recent R hip fracture d/t fall/recurrent falls. Last Myocardial Infarction Date:: October 2018 History of Any Multi-Drug Resistant Organisms: MRSA Date of last positivie culture/infection: 11/23/20 MDRO Source:: FOOT MRSA Past Surgical History: Cholecystectomy, Heart Catheterization, Heart Catheterization With Stent, Tonsillectomy Additional Past Surgical History / Comment(s): R heel I&D, colonoscopy. Past Anesthesia/Blood Transfusion Reactions: No Reported Reaction Date of Last Stent Placement:: 2011 Smoking Status: Current every day smoker - Past Family History Mother Family Medical History: Cancer Father Family Medical History: Coronary Artery Disease (CAD), Diabetes Mellitus, Hy pertension <Dk Henao - Last Filed: 05/20/23 15:18> General Exam <Dk Henao - Last Filed: 05/20/23 15:18> General appearance: alert, in no apparent distress Head exam: Present: atraumatic, normocephalic, normal inspection Eye exam: Present: normal appearance, PERRL, EOMI. Absent: scleral icterus, conjunctival injection, periorbital swelling ENT exam: Present: normal exam, mucous membranes moist Neck exam: Present: normal inspection. Absent: tenderness, meningismus, lymphadenopathy Respiratory exam: Present: normal lung sounds bilaterally. Absent: respiratory distress, wheezes, rales, rhonchi, stridor Cardiovascular Exam: Present: regular rate, normal rhythm, normal heart sounds. Absent: systolic murmur, diastolic murmur, rubs, gallop, clicks GI/Abdominal exam: Present: soft, normal bowel sounds. Absent: distended, tenderness, guarding, rebound, rigid Extremities exam: Present: normal inspection, full ROM, normal capillary refill. Absent: tenderness, pedal edema, joint swelling, calf tenderness Back exam: Present: normal inspection Neurological exam: Present: alert, oriented X3, CN II-XII intact Psychiatric exam: Present: normal affect, normal mood Skin exam: Present: warm, dry, intact, normal color. Absent: rash <Leonid Anand - Last Filed: 05/27/23 00:25> - General Exam Comments Initial Comments: Visual Physical Exam Vital signs reviewed General: Well-appearing, nontoxic, no acute distress. Head: Normocephalic, atraumatic Eyes: PERRLA, EOMI ENT: Airway patent Chest: Nonlabored breathing Skin: No visual rash, normal skin tone Neuro: Alert and oriented 3 Musculoskeletal: No gross abnormalities (Dk Henao) Course <Leonid Anand - Last Filed: 05/27/23 00:25> Vital Signs 05/20/23 05/20/23 05/20/23 16:28 17:00 17:30 Temperature 98.4 F Pulse Rate 86 97 97 Pulse Rate [ Pulse Oximetery ] Respiratory 20 20 20 Rate Blood Pressure 164/92 174/104 172/148 Blood Pressure [Left Arm] O2 Sat by Pulse 97 97 97 Oximetry 05/20/23 05/20/23 05/20/23 18:00 18:30 18:33 Temperature Pulse Rate 93 92 90 Pulse Rate [ Pulse Oximetery ] Respiratory 18 18 Rate Blood Pressure 168/104 157/94 Blood Pressure [Left Arm] O2 Sat by Pulse 97 100 Oximetry 05/20/23 05/20/23 05/20/23 18:45 19:00 19:30 Temperature Pulse Rate 88 93 85 Pulse Rate [ Pulse Oximetery ] Respiratory 22 26 H Rate Blood Pressure 138/77 141/86 Blood Pressure [Left Arm] O2 Sat by Pulse 96 97 Oximetry 05/20/23 05/20/23 05/20/23 20:00 20:22 20:29 Temperature Pulse Rate 89 87 85 Pulse Rate [ Pulse Oximetery ] Respiratory 22 Rate Blood Pressure 148/102 Blood Pressure [Left Arm] O2 Sat by Pulse 96 93 L Oximetry 05/20/23 05/20/23 05/20/23 20:30 21:00 21:30 Temperature Pulse Rate 84 90 92 Pulse Rate [ Pulse Oximetery ] Respiratory 25 H 27 H 22 Rate Blood Pressure 145/81 158/93 143/129 Blood Pressure [Left Arm] O2 Sat by Pulse 100 96 97 Oximetry 05/20/23 05/20/23 05/21/23 22:00 23:00 00:00 Temperature Pulse Rate 97 101 H 90 Pulse Rate [ Pulse Oximetery ] Respiratory 20 18 18 Rate Blood Pressure 179/99 147/99 139/80 Blood Pressure [Left Arm] O2 Sat by Pulse 97 95 95 Oximetry 05/21/23 05/21/23 05/21/23 01:00 02:40 03:00 Temperature Pulse Rate 87 90 92 Pulse Rate [ Pulse Oximetery ] Respiratory 22 22 20 Rate Blood Pressure 140/90 142/76 126/94 Blood Pressure [Left Arm] O2 Sat by Pulse 94 L 100 100 Oximetry 05/21/23 05/21/23 05/21/23 04:28 06:14 08:00 Temperature 98 F Pulse Rate 93 89 Pulse Rate [ 90 Pulse Oximetery ] Respiratory 18 18 20 Rate Blood Pressure 133/93 156/83 Blood Pressure 158/99 [Left Arm] O2 Sat by Pulse 95 94 L 98 Oximetry 05/21/23 05/21/23 05/21/23 08:27 08:40 11:44 Temperature Pulse Rate 86 84 Pulse Rate [ 86 Pulse Oximetery ] Respiratory 20 Rate Blood Pressure Blood Pressure 143/90 [Left Arm] O2 Sat by Pulse 95 Oximetry - Reevaluation(s) Reevaluation #1: 05/20/23 20:13 Medical records reviewed (Leonid Anand) Reevaluation #2: 05/20/23 20:13 Patient symptoms unchanged (Leonid Anand) Reevaluation #3: 05/20/23 20:13 patient informed results questions answered (Leonid Anand) Reevaluation #4: 05/20/23 20:14 Was pt. sent in by a medical professional or institution (Dr. PA, STATION EXAMINER, urgent care, hospital, or prison...) When possible be specific @ -no Did you speak to anyone other than the patient for history (EMS, parent, family, police, friend...)? What history was obtained from this source @ -no Did you review nursing and triage notes (agree or disagree)? Why? @ -agree Are old charts reviewed (outside hosp., previous admission, EMS record, old EKG, old radiological studies, urgent care reports/EKG's, prison records)? Report findings @ -yes Differential Diagnosis (chest pain, altered mental status, abdominal pain women, abdominal pain men, vaginal bleeding, weakness, fever, dyspnea, syncope, headache, dizziness, GI bleed, back pain, seizure, CVA, palpatations, mental health, musculoskeletal)? @ -prior EKG interpreted by me (3pts min.). @ -yes X-rays interpreted by me (1pt min.). @ -yes CT interpreted by me (1pt min.). @ -no U/S interpreted by me (1pt. min.). @ -no What testing was considered but not performed or refused? (CT, X-rays, U/S, labs)? Why? @ -none What meds were considered but not given or refused? Why? @ -none Did you discuss the management of the patient with other professionals (professionals i.e. , PA, STATION EXAMINER, lab, RT, psych nurse, social service assistant, boiler maker, teacher, special police officer, lead case manager)? Give summary @ -no Was smoking cessation discussed for >3mins.? @ -no Was critical care preformed (if so, how long)? @ -no Were there social determinants of health that impacted care today? How? (Bola elessness, low income, unemployed, alcoholism, drug addiction, transportation, low edu. Level, literacy, decrease access to med. care, group home, rehab)? @ -none Was there de-escalation of care discussed even if they declined (Discuss DNR or withdrawal of care, Hospice)? DNR status @ -no What co-morbidities impacted this encounter? (DM, HTN, Smoking, COPD, CAD, Cancer, CVA, ARF, Chemo, Hep., AIDS, mental health diagnosis, sleep apnea, morbid obesity)? @ -none Was patient admitted / discharged? Hospital course, mention meds given and route, prescriptions, significant lab abnormalities, going to OR and other pertinent info. @ - 63 male to the emergency department for evaluation of chest pain shortness of breath significant CHF exacerbation with elevated potassium we'll treat elevated potassium with Lasix as well as diuresis. Admitted Undiagnosed new problem with uncertain prognosis? @ -no Drug Therapy requiring intensive monitoring for toxicity (Heparin, Nitro, Insulin, Cardizem)? @ -no Were any procedures done? @ -no Diagnosis/symptom? @ -Hypokalemia, chest pain, CHF Acute, or Chronic, or Acute on Chronic? @ -Acute Uncomplicated (without systemic symptoms) or Complicated (systemic symptoms)? @ -Complicated Side effects of treatment? @ -no Exacerbation, Progression, or Severe Exacerbation? @ -exacerbation Poses a threat to life or bodily function? How? (Chest pain, USA, PR, pneumonia, PE, COPD, DKA, ARF, appy, cholecystitis, CVA, Diverticulitis, Homicidal, Suicidal, threat to staff... and all critical care pts) @ -yes with CP and elevated K (Leonid Anand) Reevaluation #5: 05/20/23 20:14 Differential Dyspnea: Coronary syndrome, arrhythmia, tamponade, asthma, COPD, pulmonary embolism, pneumonia, pneumothorax, pulmonary effusion, anaphylaxis, diabetic ketoacidosis, flailed chest, pulmonary contusion, diaphragmatic rupture, anemia, neuromuscular, this is not meant to be an all-inclusive list. Differential Chest Pain: Stable Angina, Unstable Angina, STEMI, NSTEMI Aortic Dissection, Pneumothorax, Musculoskeletal, Esophageal Spasm GERD, Cholecystitis, Pancreatitis, Zoster, this is not meant to be an all-inclusive list. (Leonid Anand) - Consultations Consultation #1: Spoke with Dr. Loyola who will admit this patient (Leonid Anand) EKG Findings - EKG Comments: EKG Findings:: EKG is sinus 99 CO 167 QRS 92 QTC 294 <Leonid Anand - Last Filed: 05/27/23 00:25> Medical Decision Making <Dk Henao - Last Filed: 05/20/23 15:18> - Lab Data Result diagrams: 05/26/23 05:42 05/26/23 05:42 - Radiology Data Radiology results: report reviewed (Chest x-rays positive for CHF and pulmonary edema), image reviewed <Leonid Anand - Last Filed: 05/27/23 00:25> - Medical Decision Making I performed a quick note portion of this chart signed Dk GREEN (Dk Henao) 63 male DF for evaluation of chest pain shortness of breath significant CHF exacerbation with elevated potassium we'll treat elevated potassium with Lasix as well as diuresis (Leonid Anand) - Lab Data Lab Results 05/20/23 05/20/23 05/20/23 Range/Units 17:09 17:09 17:09 WBC 4.4 (3.8-10.6) k/uL RBC 4.00 L (4.30-5.90) m/uL Hgb 12.3 L (13.0-17.5) gm/dL Hct 38.5 L (39.0-53.0) % MCV 96.3 (80.0-100.0) fL MCH 30.9 (25.0-35.0) pg MCHC 32.0 (31.0-37.0) g/dL RDW 14.1 (11.5-15.5) % Plt Count 167 (150-450) k/uL MPV 9.0 Neutrophils % 72 % Lymphocytes % 15 % Monocytes % 8 % Eosinophils % 2 % Basophils % 0 % Neutrophils # 3.2 (1.3-7.7) k/uL Lymphocytes # 0.7 L (1.0-4.8) k/uL Monocytes # 0.4 (0-1.0) k/uL Eosinophils # 0.1 (0-0.7) k/uL Basophils # 0.0 (0-0.2) k/uL Hypochromasia Slight PT 11.1 (10.0-12.5) sec INR 1.0 (<1.2) APTT 27.3 (22.0-30.0) sec Sodium 135 L (137-145) mmol/L Potassium 5.2 H (3.5-5.1) mmol/L Chloride 107 (98-107) mmol/L Carbon Dioxide 21 L (22-30) mmol/L Anion Gap 7 mmol/L BUN 23 H (9-20) mg/dL Creatinine 1.34 H (0.66-1.25) mg/dL Est GFR (CKD-EPI)AfAm 65 (>60 ml/min/1.73 sqM) Est GFR (CKD-EPI)NonAf 56 (>60 ml/min/1.73 sqM) Glucose 158 H (74-99) mg/dL Plasma Lactic Acid Adelso (0.7-2.0) mmol/L Calcium 8.7 (8.4-10.2) mg/dL Magnesium 1.9 (1.6-2.3) mg/dL Total Bilirubin 0.9 (0.2-1.3) mg/dL AST 36 (17-59) U/L ALT 28 (4-49) U/L Alkaline Phosphatase 101 (38-126) U/L Troponin I (0.000-0.034) ng/mL NT-Pro-B Natriuret Pep 46272 pg/mL Total Protein 6.4 (6.3-8.2) g/dL Albumin 3.6 (3.5-5.0) g/dL 05/20/23 05/20/23 Range/Units 17:09 17:09 WBC (3.8-10.6) k/uL RBC (4.30-5.90) m/uL Hgb (13.0-17.5) gm/dL Hct (39.0-53.0) % MCV (80.0-100.0) fL MCH (25.0-35.0) pg MCHC (31.0-37.0) g/dL RDW (11.5-15.5) % Plt Count (150-450) k/uL MPV Neutrophils % % Lymphocytes % % Monocytes % % Eosinophils % % Basophils % % Neutrophils # (1.3-7.7) k/uL Lymphocytes # (1.0-4.8) k/uL Monocytes # (0-1.0) k/uL Eosinophils # (0-0.7) k/uL Basophils # (0-0.2) k/uL Hypochromasia PT (10.0-12.5) sec INR (<1.2) APTT (22.0-30.0) sec Sodium (137-145) mmol/L Potassium (3.5-5.1) mmol/L Chloride (98-107) mmol/L Carbon Dioxide (22-30) mmol/L Anion Gap mmol/L BUN (9-20) mg/dL Creatinine (0.66-1.25) mg/dL Est GFR (CKD-EPI)AfAm (>60 ml/min/1.73 sqM) Est GFR (CKD-EPI)NonAf (>60 ml/min/1.73 sqM) Glucose (74-99) mg/dL Plasma Lactic Acid Adelso 0.8 (0.7-2.0) mmol/L Calcium (8.4-10.2) mg/dL Magnesium (1.6-2.3) mg/dL Total Bilirubin (0.2-1.3) mg/dL AST (17-59) U/L ALT (4-49) U/L Alkaline Phosphatase (38-126) U/L Troponin I 0.071 H* (0.000-0.034) ng/mL NT-Pro-B Natriuret Pep pg/mL Total Protein (6.3-8.2) g/dL Albumin (3.5-5.0) g/dL Critical Care Time Critical Care Time: Yes Total Critical Care Time: 31 <Leonid Anand - Last Filed: 05/27/23 00:25> Disposition <Dk Henao - Last Filed: 05/20/23 15:18> Is patient prescribed a controlled substance at d/c from ED?: No Time of Disposition: 19:00 <Leonid Anand - Last Filed: 05/27/23 00:25> Clinical Impression: Chest pain, Congestive heart failure, COPD exacerbation, Debility, Abdominal ascites, Abdominal pain, Lower extremity edema, SOB (shortness of breath), Elevated troponin I level, Hyperkalemia Disposition: ADMITTED IP TO THIS HOSP Condition: Serious
--- NOTE | 2023-05-20 16:03 | XR ---
EXAMINATION TYPE: XR chest 2V DATE OF EXAM: 05/20/2023 COMPARISON: 04/15/2023 HISTORY: 63-year-old male shortness of breath, difficulty breathing, bilateral lower leg edema TECHNIQUE: PA and lateral views FINDINGS: Heart mildly enlarged. Small to moderate left and small right pleural effusions with bibasilar opacit ies. Diffuse interstitial densities. IMPRESSION: Correlate for recurrent CHF with pulmonary vascular congestion. Small to moderate left and small righ t pleural effusions with adjacent atelectasis and/or consolidation.
[2023-05-20 17:27] LABS: Basophils % (A) 0 %; Eosinophils # (A) 0.1 k/uL (0-0.7); Eosinophils % (A) 2 %; HCT 38.5 % (39.0-53.0); HGB 12.3 gm/dL (13.0-17.5); Hypochromasia Slight; Lymphocytes # (A) 0.7 k/uL (1.0-4.8); Lymphocytes % (A) 15 %; MCH 30.9 pg (25.0-35.0); MCV 96.3 fL (80.0-100.0); Monocytes # (A) 0.4 k/uL (0-1.0); Monocytes % (A) 8 %; Neutrophils # (A) 3.2 k/uL (1.3-7.7); Neutrophils % (A) 72 %; Platelet Count 167 k/uL (150-450); RDW 14.1 % (11.5-15.5); WBC 4.4 k/uL (3.8-10.6)
[2023-05-20] MEDS ORDERED: LORazepam 2 MG/ML INJ IV STA (17:52)
[2023-05-20] MEDS ORDERED: MORPHINE SULFATE 4 MG/ML SYRINGE IVP STA (17:52)
[2023-05-20] MEDS ORDERED: IPRATROPIUM-ALBUTEROL 3 ML NEB INHALATION STA ×2 (17:52→19:01)
[2023-05-20 17:53] LABS: ALT 28 U/L (4-49); AST 36 U/L (17-59); African American GFR (CKD) 65 (>60 ml/min/1.73 sqM); Albumin 3.6 g/dL (3.5-5.0); Alkaline Phosphatase 101 U/L (38-126); Anion Gap 7 mmol/L; Blood Urea Nitrogen 23 mg/dL (9-20); Calcium 8.7 mg/dL (8.4-10.2); Carbon Dioxide 21 mmol/L (22-30); Chloride 107 mmol/L (98-107); Glucose 158 mg/dL (74-99); Magnesium 1.9 mg/dL (1.6-2.3); Non-African American GFR(CKD) 56 (>60 ml/min/1.73 sqM); Potassium 5.2 mmol/L (3.5-5.1); Sodium 135 mmol/L (137-145); Total Bilirubin 0.9 mg/dL (0.2-1.3); Total Protein 6.4 g/dL (6.3-8.2)
[2023-05-20 17:59] LABS: Partial Thromboplastin Time 27.3 sec (22.0-30.0); Prothrombin Time 11.1 sec (10.0-12.5)
[2023-05-20 18:00] LABS: NT-Pro-B-Type Natriuretic Pept 26800 pg/mL
[2023-05-20] MEDS ORDERED: FUROSEMIDE 10 MG/ML 4 ML VIAL IV STA (18:58)
[2023-05-20] MEDS ORDERED: IPRATROPIUM-ALBUTEROL 3 ML NEB INHALATION PRN (19:01)
[2023-05-20] MEDS: SODIUM CHLORIDE 0.9% 1,000 ML IV SCH (19:43)
[2023-05-20] MEDS: MORPHINE SULFATE 4 MG/ML SYRINGE IVP PRN (22:33)
[2023-05-21] MEDS: MORPHINE SULFATE 4 MG/ML SYRINGE IVP PRN ×5 (03:16→20:36)
[2023-05-21 07:23] LABS: ALT 27 U/L (4-49); AST 35 U/L (17-59); African American GFR (CKD) 63 (>60 ml/min/1.73 sqM); Albumin 3.5 g/dL (3.5-5.0); Alkaline Phosphatase 93 U/L (38-126); Anion Gap 9 mmol/L; Blood Urea Nitrogen 25 mg/dL (9-20); Calcium 8.2 mg/dL (8.4-10.2); Carbon Dioxide 19 mmol/L (22-30); Chloride 106 mmol/L (98-107); Glucose 188 mg/dL (74-99); Non-African American GFR(CKD) 54 (>60 ml/min/1.73 sqM); Potassium 5.1 mmol/L (3.5-5.1); Sodium 134 mmol/L (137-145); Total Bilirubin 0.7 mg/dL (0.2-1.3); Total Protein 6.3 g/dL (6.3-8.2)
[2023-05-21] MEDS: FUROSEMIDE 10 MG/ML 4 ML VIAL IV SCH ×2 (07:38→20:36)
[2023-05-21 07:50] LABS: Basophils % (A) 1 %; Eosinophils # (A) 0.1 k/uL (0-0.7); Eosinophils % (A) 2 %; HCT 37.3 % (39.0-53.0); HGB 11.9 gm/dL (13.0-17.5); Hypochromasia Marked; Lymphocytes # (A) 0.9 k/uL (1.0-4.8); Lymphocytes % (A) 14 %; MCH 31.8 pg (25.0-35.0); MCHC 31.9 g/dL (31.0-37.0); MCV 99.7 fL (80.0-100.0); Monocytes # (A) 0.6 k/uL (0-1.0); Monocytes % (A) 11 %; Neutrophils # (A) 4.1 k/uL (1.3-7.7); Neutrophils % (A) 70 %; Platelet Count 178 k/uL (150-450); RBC 3.74 m/uL (4.30-5.90); WBC 5.9 k/uL (3.8-10.6)
--- NOTE | 2023-05-21 08:59 | P.CRDCN ---
History of Present Illness Consult date: 05/21/23 Chief complaint: Shortness of breath History of present illness: The patient is a 63-year-old gentleman with extensive cardiac and medical histor y including coronary artery disease with a prior stenting of the RCA and also cardiomyopathy with an ejection fraction between 20-25% and pulmonary hypertension as well as systemic hypertension and dyslipidemia and hepatitis C and history of smoking and drinking alcohol with a he was just seen by our service recently with heart failure and he underwent an echo and revealed cardiomyopathy as described above. He presented back to the hospital was progressive exertional dyspnea started 3 days ago associated with progressive bilateral lower extremity edema. No discomfort or pain in the chest. No dizziness or lightheadedness and no feeling of heart racing or fluttering and no change in his weight. Workup was performed including an EKG and that showed sinus mechanism was no significant ST or T-wave abnormalities but low voltage QRS and also NT proBNP came to be severely elevated at 26,000. Troponin came in to be mildly elevated but seems to be flat across the board and the patient did not have any symptoms of chest pain or chest discomfort concerning for angina and the EKG did not show any ischemic changes. The patient clearly is in overt congestive heart failure. The chest x-ray showed bilateral pleural effusion. Examination is remarkable for diminished breathing sounds bilaterally and bilateral rhonchi and bilateral lower extremity is edema with a regular rate and rhythm and systolic murmur. Assessment Heart failure secondary to heart failure with reduced ejection fraction Severe cardiomyopathy CAD with prior stenting of the RCA Pulmonary hypertension Noncompliance with medications Multiple comorbid conditions including hepatitis C and history of drinking alcohol and smoking Plan Continue the current dose of Lasix IV Continue monitor the kidney function and electrolytes Management of the abnormal troponin medically Consider coronary angiogram or stress test as an outpatient Further workup for the cardiomyopathy Maximize medical treatment for cardiomyopathy Past Medical History Past Medical History: Coronary Artery Disease (CAD), Heart Failure, COPD, CVA/TIA, Diabetes Mellitus, Eye Disorder, Hyperlipidemia, Hypertension, Liver Disease, Myocardial Infarction (DE), Renal Disease Additional Past Medical History / Comment(s): Iischemic cardiomyopathy, PVCs, CVA 2019 with L sided weakness, chronic low back pain d/t vertebral fractures years ago as well as cervical pinched nerves, DDD, IDDM type II, neuropathy bilateral hands/legs and feet, pt states he can barely see with L eye and R eye vision is not very good/he is unsure why but believes it is d/t diabetes, liver disease/hepatitis C/ETOH abuse, recurrent ascities/paracentesis, recent R hip fracture d/t fall/recurrent falls. Last Myocardial Infarction Date:: October 2018 History of Any Multi-Drug Resistant Organisms: MRSA Date of last positivie culture/infection: 11/23/20 MDRO Source:: FOOT MRSA Past Surgical History: Cholecystectomy, Heart Catheterization, Heart Catheterization With Stent, Tonsillectomy Additional Past Surgical History / Comment(s): R heel I&D, colonoscopy. Past Anesthesia/Blood Transfusion Reactions: No Reported Reaction Date of Last Stent Placement:: 2011 Past Psychological History: Anxiety, Bipolar, Depression Smoking Status: Current every day smoker - Past Family History Mother Family Medical History: Cancer Father Family Medical History: Coronary Artery Disease (CAD), Diabetes Mellitus, Hypertension Medications and Allergies Home Medications Medication Instructions Recorded Confirmed Type Aspirin 81 mg PO DAILY 90 Days #90 tab 04/22/23 05/20/23 Rx Atorvastatin [Lipitor] 40 mg PO HS 90 Days #90 tab 04/22/23 05/20/23 Rx Dapagliflozin Propanediol [Farxiga] 10 mg PO DAILY 30 Days #30 tab 04/22/23 05/20/23 Rx Isosorbide Dinitrate [Isordil] 20 mg PO TID 90 Days #180 tab 04/22/23 05/20/23 Rx Metoprolol Succinate (ER) [Toprol 25 mg PO DAILY 90 Days #90 tab 04/22/23 05/20/23 Rx XL] Pantoprazole [Protonix] 40 mg PO AC-BID 90 Days #180 tab 04/22/23 05/20/23 Rx Spironolactone [Aldactone] 25 mg PO DAILY 90 Days #90 tab 04/22/23 05/20/23 Rx Albuterol Sulfate [Ventolin HFA] 1 - 2 puff INHALATION RT-Q6H PRN 05/20/23 05/20/23 History Fluticasone Propion/Salmeterol 1 puff INHALATION RT-BID 05/20/23 05/20/23 History [Advair 250-50 Diskus] HYDROcodone/APAP 10-325MG [[place] 1 tab PO QID 05/20/23 05/20/23 History 10-325] Ipratropium-Albuterol Nebulize 3 ml INHALATION DIRECTED 05/20/23 05/20/23 History [Duoneb 0.5 mg-3 mg/3 ml Soln] Tiotropium 2.5 Mcg/Puff [Spiriva 2 puff INHALATION RT-DAILY 05/20/23 05/20/23 History Respimat 2.5 Mcg] Allergies Allergy/AdvReac Type Severity Reaction Status Date / Time Penicillins Allergy Unknown Verified 05/20/23 19:54 Childhood metformin AdvReac Mild Nausea Verified 05/20/23 19:54 Physical Exam Vitals: Vital Signs Temp Pulse Resp BP Pulse Ox 05/21/23 08:40 84 05/21/23 08:27 86 05/21/23 06:14 89 18 156/83 94 L 05/21/23 04:28 93 18 133/93 95 05/21/23 03:00 92 20 126/94 100 05/21/23 02:40 90 22 142/76 100 05/21/23 01:00 87 22 140/90 94 L 05/21/23 00:00 90 18 139/80 95 05/20/23 23:00 101 H 18 147/99 95 05/20/23 22:00 97 20 179/99 97 05/20/23 21:30 92 22 143/129 97 05/20/23 21:00 90 27 H 158/93 96 05/20/23 20:30 84 25 H 145/81 100 05/20/23 20:29 85 05/20/23 20:22 87 93 L 05/20/23 20:00 89 22 148/102 96 05/20/23 19:30 85 26 H 141/86 97 05/20/23 19:00 93 22 138/77 96 05/20/23 18:45 88 05/20/23 18:33 90 05/20/23 18:30 92 18 157/94 100 05/20/23 18:00 93 18 168/104 97 05/20/23 17:30 97 20 172/148 97 05/20/23 17:00 97 20 174/104 97 05/20/23 16:28 98.4 F 86 20 164/92 97 Intake and Output 05/20/23 05/21/23 05/21/23 22:59 06:59 14:59 Other: Weight 79.379 kg Results 05/21/23 06:56 05/21/23 06:56 Cardiac Enzymes 05/20/23 05/20/23 05/20/23 Range/Units 17:09 17:09 20:24 AST 36 (17-59) U/L Troponin I 0.071 H* 0.061 H* (0.000-0.034) ng/mL 05/20/23 05/21/23 Range/Units 23:07 06:56 AST 35 (17-59) U/L Troponin I 0.059 H* (0.000-0.034) ng/mL Coagulation 05/20/23 Range/Units 17:09 PT 11.1 (10.0-12.5) sec APTT 27.3 (22.0-30.0) sec CBC 05/20/23 05/21/23 Range/Units 17:09 06:56 WBC 4.4 5.9 (3.8-10.6) k/uL RBC 4.00 L 3.74 L (4.30-5.90) m/uL Hgb 12.3 L 11.9 L (13.0-17.5) gm/dL Hct 38.5 L 37.3 L (39.0-53.0) % Plt Count 167 178 (150-450) k/uL Comprehensive Metabolic Panel 05/20/23 05/21/23 Range/Units 17:09 06:56 Sodium 135 L 134 L (137-145) mmol/L Potassium 5.2 H 5.1 (3.5-5.1) mmol/L Chloride 107 106 (98-107) mmol/L Carbon Dioxide 21 L 19 L (22-30) mmol/L BUN 23 H 25 H (9-20) mg/dL Creatinine 1.34 H 1.37 H (0.66-1.25) mg/dL Glucose 158 H 188 H (74-99) mg/dL Calcium 8.7 8.2 L (8.4-10.2) mg/dL AST 36 35 (17-59) U/L ALT 28 27 (4-49) U/L Alkaline Phosphatase 101 93 (38-126) U/L Total Protein 6.4 6.3 (6.3-8.2) g/dL Albumin 3.6 3.5 (3.5-5.0) g/dL Current Medications Generic Name Dose Route Start Last Admin Trade Name Freq PRN Reason Stop Dose Admin Albuterol/Ipratropium 3 ml 05/20/23 19:01 05/21/23 08:25 Ipratropium-Albuterol 3 Ml Neb INHALATION 3 ml RT-QID PRN Administration Shortness Of Breath Or Wheezing Furosemide 40 mg 05/21/23 07:00 05/21/23 07:38 Furosemide 10 Mg/Ml 4 Ml Vial IV 40 mg Q12H MIRLANDE Administration Sodium Chloride 1,000 mls @ 20 mls/hr 05/20/23 19:00 05/20/23 19:43 Saline 0.9% IV 20 mls/hr .Q24H MIRLANDE Administration Morphine Sulfate 4 mg 05/20/23 17:52 05/21/23 07:38 Morphine Sulfate 4 Mg/Ml Syringe IVP 4 mg Q4HR PRN Administration Pain Intake and Output 05/20/23 05/21/23 05/21/23 22:59 06:59 14:59 Other: Weight 79.379 kg 05/21/23 06:56 05/21/23 06:56
[2023-05-21] MEDS: HYDROcodone/APAP 10-325MG 1 EACH TAB PO SCH ×3 (11:28→22:11)
[2023-05-21 16:20] LABS: Glucose,Whole Blood 190 mg/dL (70-110)
[2023-05-21] MEDS: ISOSORBIDE DINITRATE 20 MG TAB PO SCH ×2 (16:34→22:11)
[2023-05-21] MEDS: PANTOPRAZOLE 40 MG TABLET PO SCH (16:34)
[2023-05-21] MEDS: IPRATROPIUM-ALBUTEROL 3 ML NEB INHALATION SCH ×3 (17:10→20:31)
[2023-05-21] MEDS: ATORVASTATIN 40 MG TAB PO SCH (20:24)
[2023-05-21 20:30] LABS: Glucose,Whole Blood 217 mg/dL (70-110)
[2023-05-21] MEDS: SYMBICORT 80-4.5 MCG INHALER INHALATION SCH (20:31)
[2023-05-21] MEDS: SODIUM CHLORIDE 0.9% 1,000 ML IV SCH (20:35)
[2023-05-22] MEDS: MORPHINE SULFATE 4 MG/ML SYRINGE IVP PRN ×5 (00:36→20:46)
--- NOTE | 2023-05-22 01:28 | HP ---
HISTORY AND PHYSICAL This is a 63-year-old white male with chief complaint of shortness of breath, vague symptoms for the last 4 to 5 days, history of congestive heart failure, leg swelling, difficulty to breathe and walk, in his legs. HOME MEDICINES: Reviewed. ALLERGIES: Penicillin and metformin. REVIEW OF SYSTEMS: 14-point review of systems otherwise negative. PHYSICAL EXAMINATION: EXTREMITIES: 2 to 3+ edema. LUNGS: Scattered rhonchi and wheeze. CARDIOVASCULAR: S1 and S2. PSYCH: Fair mood and affect. NEUROLOGIC: Alert and oriented x3. SKIN: Dry skin turgor. Dry mucous membranes. ASSESSMENT: Chest pain, atypical; congestive heart failure; chronic obstructive pulmonary disease; generalized anxiety; abdominal pain; lower extremity edema ; elevated troponin; hypercalcemia. Prognosis guarded. Cardiology consult. Multiple workup for shortness of breath and chest pain. Prognosis guarded. MMODL / IJN: [id number] /
[2023-05-22 06:01] LABS: Glucose,Whole Blood 185 mg/dL (70-110)
[2023-05-22] MEDS: PANTOPRAZOLE 40 MG TABLET PO SCH ×2 (06:35→16:22)
[2023-05-22] MEDS: FUROSEMIDE 10 MG/ML 4 ML VIAL IV SCH ×2 (06:35→19:31)
[2023-05-22] MEDS ORDERED: NON FORMULARY DRUG (Tiotropium 2.5 Mcg/Puff 10 PUFF Each) INHALATION SCH (08:00)
[2023-05-22 08:39] LABS: Basophils % (A) 0 %; Eosinophils # (A) 0.2 k/uL (0-0.7); Eosinophils % (A) 4 %; HCT 32.1 % (39.0-53.0); HGB 10.3 gm/dL (13.0-17.5); Hypochromasia Moderate; Lymphocytes # (A) 0.8 k/uL (1.0-4.8); Lymphocytes % (A) 20 %; MCHC 31.9 g/dL (31.0-37.0); Mean Platelet Volume 9.4; Monocytes # (A) 0.4 k/uL (0-1.0); Monocytes % (A) 11 %; Neutrophils # (A) 2.4 k/uL (1.3-7.7); Neutrophils % (A) 62 %; Platelet Count 143 k/uL (150-450); RBC 3.31 m/uL (4.30-5.90); RDW 13.9 % (11.5-15.5); WBC 3.9 k/uL (3.8-10.6)
[2023-05-22] MEDS: METOPROLOL SUCCINATE (ER) 25 MG TAB.ER.24H PO SCH (08:54)
[2023-05-22] MEDS: SPIRONOLACTONE 25 MG TAB PO SCH (08:55)
[2023-05-22] MEDS: ASPIRIN 81 MG PO SCH (08:55)
[2023-05-22] MEDS: HYDROcodone/APAP 10-325MG 1 EACH TAB PO SCH ×4 (08:55→22:08)
[2023-05-22] MEDS: DAPAGLIFLOZIN PROPANEDIOL 10 MG TABLET PO SCH (08:56)
[2023-05-22] MEDS: ISOSORBIDE DINITRATE 20 MG TAB PO SCH ×3 (08:56→22:08)
[2023-05-22] MEDS: SYMBICORT 80-4.5 MCG INHALER INHALATION SCH ×2 (09:22→19:46)
[2023-05-22] MEDS: IPRATROPIUM-ALBUTEROL 3 ML NEB INHALATION SCH ×4 (09:22→19:46)
[2023-05-22 10:18] LABS: ALT 26 U/L (4-49); AST 36 U/L (17-59); African American GFR (CKD) 42 (>60 ml/min/1.73 sqM); Albumin 3.4 g/dL (3.5-5.0); Albumin/Globulin Ratio 1.3; Alkaline Phosphatase 86 U/L (38-126); Anion Gap 9 mmol/L; Blood Urea Nitrogen 31 mg/dL (9-20); Calcium 8.3 mg/dL (8.4-10.2); Carbon Dioxide 23 mmol/L (22-30); Chloride 101 mmol/L (98-107); Globulin 2.7 g/dL; Glucose 186 mg/dL (74-99); Non-African American GFR(CKD) 37 (>60 ml/min/1.73 sqM); Sodium 133 mmol/L (137-145); Total Bilirubin 0.9 mg/dL (0.2-1.3); Total Protein 6.1 g/dL (6.3-8.2)
[2023-05-22 12:07] LABS: Glucose,Whole Blood 219 mg/dL (70-110)
--- NOTE | 2023-05-22 12:21 | P.PN ---
Subjective Progress Note Date: 05/22/23 Principal diagnosis: Heart failure The patient is a 63-year-old gentleman with extensive cardiac and medical history including coronary artery disease with a prior stenting of the RCA and also cardiomyopathy with an ejection fraction between 20-25% and pulmonary hypertension as well as systemic hypertension and dyslipidemia and hepatitis C and history of smoking and drinking alcohol with a he was just seen by our service recently with heart failure and he underwent an echo and revealed cardiomyopathy as described above. He presented back to the hospital was progressive exertional dyspnea started 3 days ago associated with progressive bilateral lower extremity edema. No discomfort or pain in the chest. No dizziness or lightheadedness and no feeling of heart racing or fluttering and no change in his weight. Workup was performed including an EKG and that showed sinus mechanism was no significant ST or T-wave abnormalities but low voltage QRS and also NT proBNP came to be severely elevated at 26,000. Troponin came in to be mildly elevated but seems to be flat across the board and the patient did not have any symptoms of chest pain or chest discomfort concerning for angina and the EKG did not show any ischemic changes. The patient clearly is in overt congestive heart failure. The chest x-ray showed bilateral pleural effusion. Examination is remarkable for diminished breathing sounds bilaterally and bilateral rhonchi and bilateral lower extremity is edema with a regular rate and rhythm and systolic murmur. 05/22/2023 The patient was seen and evaluated this morning. He still short of breath. He still have bilateral lower extremities edema. He still on oxygen. I would advise continue the current dose of Lasix IV. The creatinine is slightly worse. We'll continue monitor the kidney function as well as the electrolytes. He reports no pain in the chest and no dizziness or lightheadedness and no feeling of heart racing or fluttering. We'll consider at this point medical treatment for the mildly abnormal troponin. The examination is remarkable for severe bilateral lower extremity is edema was diminished breathing sounds bilaterally and irregular rhythm with a systolic murmur at the right and left upper sternal border Assessment Heart failure secondary to heart failure with reduced ejection fraction Severe cardiomyopathy CAD with prior stenting of the RCA Pulmonary hypertension Noncompliance with medications Multiple comorbid conditions including hepatitis C and history of drinking alcohol and smoking Plan Continue the current dose of Lasix IV Continue monitor the kidney function and electrolytes Management of the abnormal troponin medically Consider coronary angiogram or stress test as an outpatient Further workup for the cardiomyopathy Maximize medical treatment for cardiomyopathy Objective - Vital Signs Vital signs: Vital Signs Temp 98.3 F 05/22/23 07:24 Pulse 83 05/22/23 09:31 Resp 18 05/22/23 07:24 BP 145/88 05/22/23 07:24 Pulse Ox 92 L 05/22/23 09:24 FiO2 Intake & Output 05/21/23 05/22/23 05/22/23 18:59 06:59 18:59 Intake Total 480 Output Total 1700 Balance -1220 Weight 79.379 kg Intake: Oral 480 Output: Urine 1700 Other: Voiding Method Indwelling Catheter Toilet Toilet Urinal Urinal # Voids 2 1 - Labs CBC & Chem 7: 05/22/23 08:05 05/22/23 09:35 Labs: Abnormal Lab Results - Last 24 Hours (Table) 05/21/23 05/21/23 05/22/23 Range/Units 16:16 20:28 05:59 RBC (4.30-5.90) m/uL Hgb (13.0-17.5) gm/dL Hct (39.0-53.0) % Plt Count (150-450) k/uL Lymphocytes # (1.0-4.8) k/uL Sodium (137-145) mmol/L BUN (9-20) mg/dL Creatinine (0.66-1.25) mg/dL Glucose (74-99) mg/dL POC Glucose (mg/dL) 190 H 217 H 185 H (70-110) mg/dL Calcium (8.4-10.2) mg/dL Total Protein (6.3-8.2) g/dL Albumin (3.5-5.0) g/dL 05/22/23 05/22/23 05/22/23 Range/Units 08:05 09:35 12:05 RBC 3.31 L (4.30-5.90) m/uL Hgb 10.3 L (13.0-17.5) gm/dL Hct 32.1 L (39.0-53.0) % Plt Count 143 L (150-450) k/uL Lymphocytes # 0.8 L (1.0-4.8) k/uL Sodium 133 L (137-145) mmol/L BUN 31 H (9-20) mg/dL Creatinine 1.89 H (0.66-1.25) mg/dL Glucose 186 H (74-99) mg/dL POC Glucose (mg/dL) 219 H (70-110) mg/dL Calcium 8.3 L (8.4-10.2) mg/dL Total Protein 6.1 L (6.3-8.2) g/dL Albumin 3.4 L (3.5-5.0) g/dL
[2023-05-22 16:50] LABS: Glucose,Whole Blood 242 mg/dL (70-110)
[2023-05-22] MEDS: SODIUM CHLORIDE 0.9% 1,000 ML IV SCH (19:38)
[2023-05-22 20:25] LABS: Glucose,Whole Blood 208 mg/dL (70-110)
[2023-05-22] MEDS: ATORVASTATIN 40 MG TAB PO SCH (22:08)
--- NOTE | 2023-05-23 01:50 | PN ---
PROGRESS NOTE SUBJECTIVE: Remains on his breathing treatments, oxygen at night, hypertension medicines. Admitted for COPD exacerbation, appears to be getting better. Most waiting for him to get nebulizer at home. OBJECTIVE: VITAL SIGNS: Blood pressure 174/82, saturation 99% on room air, pulse 70s, respiratory rate 16 to 18, temperature 97.8. LUNGS: Scattered rhonchi and wheeze. CARDIOVASCULAR: S1, S2. HEMATOLOGY: Negative Homans. PSYCH: Fair mood and affect. NEUROLOGIC: Alert and oriented x3. PLAN: Continue treatment for COPD exacerbation, pneumonia, acute on chronic renal insufficiency, diabetes mellitus. Accu-Chek protocol. Possible discharge home in next 24 to 48 hours. MMODL / IJN: [id number] /
[2023-05-23 02:09] LABS: Glucose,Whole Blood 199 mg/dL (70-110)
[2023-05-23] MEDS: MORPHINE SULFATE 4 MG/ML SYRINGE IVP PRN ×4 (02:16→20:47)
[2023-05-23 05:58] LABS: Glucose,Whole Blood 190 mg/dL (70-110)
[2023-05-23] MEDS: FUROSEMIDE 10 MG/ML 4 ML VIAL IV SCH ×2 (06:03→20:46)
[2023-05-23] MEDS: PANTOPRAZOLE 40 MG TABLET PO SCH ×2 (06:03→16:47)
[2023-05-23] MEDS: IPRATROPIUM-ALBUTEROL 3 ML NEB INHALATION SCH ×4 (08:29→20:44)
[2023-05-23] MEDS: SYMBICORT 80-4.5 MCG INHALER INHALATION SCH ×3 (08:29→20:54)
[2023-05-23] MEDS: METOPROLOL SUCCINATE (ER) 25 MG TAB.ER.24H PO SCH (08:52)
[2023-05-23] MEDS: ASPIRIN 81 MG PO SCH (08:52)
[2023-05-23] MEDS: HYDROcodone/APAP 10-325MG 1 EACH TAB PO SCH ×3 (08:52→23:55)
[2023-05-23] MEDS: DAPAGLIFLOZIN PROPANEDIOL 10 MG TABLET PO SCH (08:52)
[2023-05-23] MEDS: SPIRONOLACTONE 25 MG TAB PO SCH (08:52)
[2023-05-23] MEDS: ISOSORBIDE DINITRATE 20 MG TAB PO SCH ×2 (08:52→16:47)
[2023-05-23 11:25] LABS: Glucose,Whole Blood 217 mg/dL (70-110)
[2023-05-23 12:20] VITALS: BMI 25.1
--- NOTE | 2023-05-23 13:18 | P.PN ---
Subjective Progress Note Date: 05/23/23 Principal diagnosis: Heart failure The patient is a 63-year-old gentleman with extensive cardiac and medical history including coronary artery disease with a prior stenting of the RCA and also cardiomyopathy with an ejection fraction between 20-25% and pulmonary hypertension as well as systemic hypertension and dyslipidemia and hepatitis C and history of smoking and drinking alcohol with a he was just seen by our service recently with heart failure and he underwent an echo and revealed cardiomyopathy as described above. He presented back to the hospital was progressive exertional dyspnea started 3 days ago associated with progressive bilateral lower extremity edema. No discomfort or pain in the chest. No dizziness or lightheadedness and no feeling of heart racing or fluttering and no change in his weight. Workup was performed including an EKG and that showed sinus mechanism was no significant ST or T-wave abnormalities but low voltage QRS and also NT proBNP came to be severely elevated at 26,000. Troponin came in to be mildly elevated but seems to be flat across the board and the patient did not have any symptoms of chest pain or chest discomfort concerning for angina and the EKG did not show any ischemic changes. The patient clearly is in overt congestive heart failure. The chest x-ray showed bilateral pleural effusion. Examination is remarkable for diminished breathing sounds bilaterally and bilateral rhonchi and bilateral lower extremity is edema with a regular rate and rhythm and systolic murmur. 05/22/2023 The patient was seen and evaluated this morning. He still short of breath. He still have bilateral lower extremities edema. He still on oxygen. I would advise continue the current dose of Lasix IV. The creatinine is slightly worse. We'll continue monitor the kidney function as well as the electrolytes. He reports no pain in the chest and no dizziness or lightheadedness and no feeling of heart racing or fluttering. We'll consider at this point medical treatment for the mildly abnormal troponin. The examination is remarkable for severe bilateral lower extremity is edema was diminished breathing sounds bilaterally and irregular rhythm with a systolic murmur at the right and left upper sternal border 05/23/2023 The patient was seen and evaluated this morning. He still hypervolemic with severe bilateral lower extremity is edema and skin changes. He still short of breath. No blood work as of this morning. I am going to obtain a CBC and BMP. Meanwhile continue the current medical regimen including the current dose of Lasix IV. The examination is unremarkable for a systolic murmur and severe bilateral lower extremity is edema and diminished breathing sounds bilaterally. Assessment Heart failure secondary to heart failure with reduced ejection fraction Severe cardiomyopathy CAD with prior stenting of the RCA Pulmonary hypertension Noncompliance with medications Multiple comorbid conditions including hepatitis C and history of drinking alcohol and smoking Plan Continue the current dose of Lasix IV Obtain CBC and BMP Continue monitor the kidney function and electrolytes Management of the abnormal troponin medically Consider coronary angiogram or stress test as an outpatient Further workup for the cardiomyopathy Maximize medical treatment for cardiomyopathy Objective - Vital Signs Vital signs: Vital Signs Temp 98.2 F 05/23/23 06:58 Pulse 76 05/23/23 08:40 Resp 17 05/23/23 08:00 BP 138/74 05/23/23 06:58 Pulse Ox 97 05/23/23 08:30 FiO2 Intake & Output 05/22/23 05/23/23 05/23/23 18:59 06:59 18:59 Output Total 2 Balance -2 Weight 79.379 kg Output: Urine 2 Other: Voiding Method Toilet Toilet Toilet Urinal Urinal Urinal # Voids 2 3 - Labs CBC & Chem 7: 05/22/23 08:05 05/22/23 09:35 Labs: Abnormal Lab Results - Last 24 Hours (Table) 05/22/23 05/22/23 05/23/23 Range/Units 16:49 20:20 02:07 POC Glucose (mg/dL) 242 H 208 H 199 H (70-110) mg/dL 05/23/23 05/23/23 Range/Units 05:56 11:22 POC Glucose (mg/dL) 190 H 217 H (70-110) mg/dL
--- NOTE | 2023-05-23 13:38 | PN ---
PROGRESS NOTE SUBJECTIVE: A 63-year-old with bilateral lower extremity edema. Still on oxygen. Continue IV Lasix. Creatinine is slightly worse. Monitor kidney function. No dizziness or lightheadedness. Mildly abnormal troponin. Continue to assess extremity edema. OBJECTIVE: VITAL SIGNS: O2 is 92%, blood pressure 145/88, pulse 83, respiratory rate 16 to 18, temperature 98.3. CARDIOVASCULAR: S1 and S2. LUNGS: Transmitted upper airway sounds. HEMATOLOGY: Negative Homans. PSYCHIATRIC: Fair mood and affect. ASSESSMENT: 1. Severe cardiomyopathy. 2. Coronary artery disease, prior stenting. 3. Pulmonary hypertension. 4. Noncompliant with medications. PLAN: Stop alcohol. Stop smoking. Wear oxygen, breathing treatments. Cardiology. Systolic heart failure with reduced ejection fraction. Prognosis is guarded. MMODL / IJN: [id number] /
--- NOTE | 2023-05-23 15:24 | CDI ---
Documentation Clarification Form Date: 05/23/2023 02:49:12 PM From: Angeles Pina RN, CCDS Admit Date: 05/20/2023 06:59:00 PM Patient Name: Jacobo Hall Visit Number: [id number] Discharge Date: ATTENTION: The Clinical Documentation Specialists (CDI) and [facility] Coding Staff appreciate your assistance in clarifying documentation. Please respond to the clarification below the line at the bottom and electronically sign. The CDI & [facility] Coding staff will review the response and follow-up if needed. Please note: Queries are made part of the Legal Health Record. If you have any questions, please contact the author of this message via ITS. Dr. Matthew Soni Your patient has the documented diagnosis of unspecified heart failure with reduced ejection fraction. Additional information regarding the acuity] of heart failure is requested. History/Risk Factors: Coronary Artery Disease, Heart Failure, COPD, CVA/TIA, Diabetes Mellitus, Hyperlipidemia, Hypertension, liver disease/hepatitis C Clinical Indicators: 63-year-old male presents to ED with complaint of dyspnea, states that his legs are swollen he states is very weak. 05/20 VS: 164/92 86 20 98.4 97% RA BNP: 44389, Troponin I 0.071, 0.059 Echocardiogram Results: (04/18/2023) Left ventricular ejection fraction is estimated at 20-25% Severe LV dysfunction. Moderate to severe pulmonary hypertension. Calcific aortic valve without any significant stenosis. 05/20 Chest X Ray: Correlate for recurrent CHF with pulmonary vascular congestion. Small to moderate left and small right pleural effusion with adjacent atelectasis and or consolidation. Treatment: System Archive Analyst/Telemetry ASA 81 MG PO DAILY Lasix 40 MG IV Once 05/20 Lasix 40 MG IV Q 12 05/21-05/23 Toprol Xl 25 MG PO Daily 05/22-05/23 Aldactone 25 MG PO Daily 05/22-05/23 In your professional opinion, can you please clarify the acuity of the heart failure with reduced ejection fraction if known? [ ] Acute Systolic Heart Failure (reduced EF) [ ] Acute on Chronic Systolic Heart Failure (reduced EF) [ ] Other, please specify [ ] Unable to determine (Template Last Revised: July 2020) Assessment : Acute Heart failure secondary to heart failure with reduced ejection fraction Dictated By: Maria Eugenia Menjivar Signed By: <Electronically signed by Maria Eugenia SUAREZ> 05/26/23 1440 NISSA
[2023-05-23] MEDS: hydrOXYzine HCL 25 MG TAB PO PRN ×2 (15:45→20:46)
[2023-05-23 16:34] LABS: Glucose,Whole Blood 182 mg/dL (70-110)
[2023-05-23] MEDS ORDERED: LIDOCAINE 4% CREAM 5 GM TUBE TOPICAL ONE (18:00)
[2023-05-23] MEDS ORDERED: PERMETHRIN 5% CREAM 60 GM TUBE TOPICAL ONE (19:00)
[2023-05-23 20:38] LABS: Glucose,Whole Blood 172 mg/dL (70-110)
[2023-05-23] MEDS: ATORVASTATIN 40 MG TAB PO SCH (20:46)
[2023-05-23] MEDS: SODIUM CHLORIDE 0.9% 1,000 ML IV SCH (23:56)
[2023-05-24] MEDS: HYDROcodone/APAP 10-325MG 1 EACH TAB PO SCH ×5 (00:08→21:28)
[2023-05-24] MEDS: ISOSORBIDE DINITRATE 20 MG TAB PO SCH ×4 (00:09→21:28)
[2023-05-24] MEDS: MORPHINE SULFATE 4 MG/ML SYRINGE IVP PRN ×4 (05:32→22:41)
[2023-05-24 06:09] LABS: Glucose,Whole Blood 137 mg/dL (70-110)
[2023-05-24] MEDS: PANTOPRAZOLE 40 MG TABLET PO SCH ×2 (06:22→15:54)
[2023-05-24] MEDS: FUROSEMIDE 10 MG/ML 4 ML VIAL IV SCH ×2 (06:22→18:11)
[2023-05-24] MEDS: SYMBICORT 80-4.5 MCG INHALER INHALATION SCH ×2 (09:00→19:56)
[2023-05-24] MEDS: IPRATROPIUM-ALBUTEROL 3 ML NEB INHALATION SCH ×4 (09:03→19:56)
[2023-05-24] MEDS: METOPROLOL SUCCINATE (ER) 25 MG TAB.ER.24H PO SCH (09:25)
[2023-05-24] MEDS: ASPIRIN 81 MG PO SCH (09:26)
[2023-05-24] MEDS: DAPAGLIFLOZIN PROPANEDIOL 10 MG TABLET PO SCH (09:26)
[2023-05-24] MEDS: SPIRONOLACTONE 25 MG TAB PO SCH (09:26)
[2023-05-24 09:41] LABS: Basophils # (A) 0.03 X 10*3/uL (0.00-0.10); Basophils % (A) 0.5 %; Eosinophils # (A) 0.09 X 10*3/uL (0.04-0.35); Eosinophils % (A) 1.4 %; HCT 29.6 % (39.6-50.0); HGB 9.5 g/dL (13.0-17.0); Lymphocytes # (A) 0.63 X 10*3/uL (0.90-5.00); MCH 30.3 pg (27.0-32.0); MCHC 32.1 g/dL (32.0-37.0); MCV 94.3 FL (80.0-97.0); Mean Platelet Volume 12.1 FL (9.5-12.2); Monocytes # (A) 0.84 X 10*3/uL (0.20-1.00); Monocytes % (A) 13.4 %; NRBC Per 100 WBC 0 X 10*3/uL (0.00-0.01); Neutrophils # (A) 4.66 X 10*3/uL (1.80-7.70); Neutrophils % (A) 74.4 %; Platelet Count 137 X 10*3/uL (140-440); RBC 3.14 X 10*6/uL (4.40-5.60); RDW 13.8 % (11.5-14.5); WBC 6.27 X 10*3/uL (4.50-10.00)
[2023-05-24 09:54] LABS: ALT 23 U/L (10-49); AST 33 U/L (14-35); Albumin 3.5 g/dL (3.8-4.9); Albumin/Globulin Ratio 1.59 Ratio (1.60-3.17); Alkaline Phosphatase 106 U/L (41-126); BUN/Creat Ratio 20.64 Ratio (12.00-20.00); Blood Urea Nitrogen 45.4 mg/dL (9.0-27.0); Calcium 8.3 mg/dL (8.7-10.3); Carbon Dioxide 21.3 mmol/L (21.6-31.8); Chloride 97 mmol/L (96-109); Globulin 2.2 g/dL (1.6-3.3); Glucose 124 mg/dL (70-110); Potassium 5.3 mmol/L (3.5-5.5); Sodium 131 mmol/L (135-145); Total Bilirubin 0.6 mg/dL (0.3-1.2); Total Protein 5.7 g/dL (6.2-8.2)
[2023-05-24 11:11] LABS: Glucose,Whole Blood 219 mg/dL (70-110)
--- NOTE | 2023-05-24 14:42 | P.PN ---
Subjective Progress Note Date: 05/24/23 Principal diagnosis: Heart failure The patient is a 63-year-old gentleman with extensive cardiac and medical history including coronary artery disease with a prior stenting of the RCA and also cardiomyopathy with an ejection fraction between 20-25% and pulmonary hypertension as well as systemic hypertension and dyslipidemia and hepatitis C and history of smoking and drinking alcohol with a he was just seen by our service recently with heart failure and he underwent an echo and revealed cardiomyopathy as described above. He presented back to the hospital was progressive exertional dyspnea started 3 days ago associated with progressive bilateral lower extremity edema. No discomfort or pain in the chest. No dizziness or lightheadedness and no feeling of heart racing or fluttering and no change in his weight. Workup was performed including an EKG and that showed sinus mechanism was no significant ST or T-wave abnormalities but low voltage QRS and also NT proBNP came to be severely elevated at 26,000. Troponin came in to be mildly elevated but seems to be flat across the board and the patient did not have any symptoms of chest pain or chest discomfort concerning for angina and the EKG did not show any ischemic changes. The patient clearly is in overt congestive heart failure. The chest x-ray showed bilateral pleural effusion. Examination is remarkable for diminished breathing sounds bilaterally and bilateral rhonchi and bilateral lower extremity is edema with a regular rate and rhythm and systolic murmur. 05/22/2023 The patient was seen and evaluated this morning. He still short of breath. He still have bilateral lower extremities edema. He still on oxygen. I would advise continue the current dose of Lasix IV. The creatinine is slightly worse. We'll continue monitor the kidney function as well as the electrolytes. He reports no pain in the chest and no dizziness or lightheadedness and no feeling of heart racing or fluttering. We'll consider at this point medical treatment for the mildly abnormal troponin. The examination is remarkable for severe bilateral lower extremity is edema was diminished breathing sounds bilaterally and irregular rhythm with a systolic murmur at the right and left upper sternal border 05/23/2023 The patient was seen and evaluated this morning. He still hypervolemic with severe bilateral lower extremity is edema and skin changes. He still short of breath. No blood work as of this morning. I am going to obtain a CBC and BMP. Meanwhile continue the current medical regimen including the current dose of Lasix IV. The examination is unremarkable for a systolic murmur and severe bilateral lower extremity is edema and diminished breathing sounds bilaterally. 05/24/2023 The patient was seen and evaluated this morning. He continues to have shortness of breath and bilateral lower extremity is edema. The creatinine is a slightly worse than yesterday. He continues to be on Lasix IV. The examination is remarkable for severe bilateral lower extremity is edema and diminished breathing sounds bilaterally. Assessment Heart failure secondary to heart failure with reduced ejection fraction Severe cardiomyopathy CAD with prior stenting of the RCA Pulmonary hypertension Noncompliance with medications Multiple comorbid conditions including hepatitis C and history of drinking alcohol and smoking Plan Continue the current dose of Lasix IV Obtain CBC and BMP Continue monitor the kidney function and electrolytes Management of the abnormal troponin medically Consider coronary angiogram or stress test as an outpatient Further workup for the cardiomyopathy Maximize medical treatment for cardiomyopathy Objective - Vital Signs Vital signs: Vital Signs Temp 97.6 F 05/24/23 13:45 Pulse 72 05/24/23 13:45 Resp 14 05/24/23 13:45 BP 129/79 05/24/23 13:45 Pulse Ox 97 05/24/23 13:45 FiO2 Intake & Output 05/23/23 05/24/23 05/24/23 18:59 06:59 18:59 Intake Total 700 Balance 700 Weight 79.379 kg Intake: Oral 700 Other: Voiding Method Toilet Toilet Urinal Urinal # Voids 4 2 - Labs CBC & Chem 7: 05/24/23 06:54 05/24/23 06:54 Labs: Abnormal Lab Results - Last 24 Hours (Table) 05/23/23 05/23/23 05/24/23 Range/Units 16:33 20:34 06:06 RBC (4.40-5.60) X 10*6/uL Hgb (13.0-17.0) g/dL Hct (39.6-50.0) % Plt Count (140-440) X 10*3/uL Lymphocytes # (0.90-5.00) X 10*3/uL Sodium (135-145) mmol/L Carbon Dioxide (21.6-31.8) mmol/L Anion Gap (4.00-12.00) mmol/L BUN (9.0-27.0) mg/dL Creatinine (0.6-1.5) mg/dL Est GFR (CKD-EPI) (>=60) BUN/Creatinine Ratio (12.00-20.00) Ratio Glucose (70-110) mg/dL POC Glucose (mg/dL) 182 H 172 H 137 H (70-110) mg/dL Calcium (8.7-10.3) mg/dL Total Protein (6.2-8.2) g/dL Albumin (3.8-4.9) g/dL Albumin/Globulin Ratio (1.60-3.17) Ratio 05/24/23 05/24/23 05/24/23 Range/Units 06:54 06:54 11:07 RBC 3.14 L (4.40-5.60) X 10*6/uL Hgb 9.5 L (13.0-17.0) g/dL Hct 29.6 L (39.6-50.0) % Plt Count 137 L (140-440) X 10*3/uL Lymphocytes # 0.63 L (0.90-5.00) X 10*3/uL Sodium 131 L (135-145) mmol/L Carbon Dioxide 21.3 L (21.6-31.8) mmol/L Anion Gap 12.70 H (4.00-12.00) mmol/L BUN 45.4 H (9.0-27.0) mg/dL Creatinine 2.2 H (0.6-1.5) mg/dL Est GFR (CKD-EPI) 33 L (>=60) BUN/Creatinine Ratio 20.64 H (12.00-20.00) Ratio Glucose 124 H (70-110) mg/dL POC Glucose (mg/dL) 219 H (70-110) mg/dL Calcium 8.3 L (8.7-10.3) mg/dL Total Protein 5.7 L (6.2-8.2) g/dL Albumin 3.5 L (3.8-4.9) g/dL Albumin/Globulin Ratio 1.59 L (1.60-3.17) Ratio
[2023-05-24 17:22] LABS: Glucose,Whole Blood 233 mg/dL (70-110)
[2023-05-24 20:34] LABS: Glucose,Whole Blood 171 mg/dL (70-110)
[2023-05-24] MEDS: ATORVASTATIN 40 MG TAB PO SCH (21:28)
[2023-05-24] MEDS: hydrOXYzine HCL 25 MG TAB PO PRN (21:29)
[2023-05-24] MEDS: SODIUM CHLORIDE 0.9% 1,000 ML IV SCH (21:58)
[2023-05-25] MEDS: MORPHINE SULFATE 4 MG/ML SYRINGE IVP PRN ×5 (04:15→22:28)
[2023-05-25 06:01] LABS: Glucose,Whole Blood 229 mg/dL (70-110)
[2023-05-25] MEDS: IPRATROPIUM-ALBUTEROL 3 ML NEB INHALATION SCH ×4 (08:26→18:00)
[2023-05-25] MEDS: SYMBICORT 80-4.5 MCG INHALER INHALATION SCH ×2 (08:26→18:00)
[2023-05-25] MEDS: SPIRONOLACTONE 25 MG TAB PO SCH (09:18)
[2023-05-25] MEDS: METOPROLOL SUCCINATE (ER) 25 MG TAB.ER.24H PO SCH (09:18)
[2023-05-25] MEDS: ISOSORBIDE DINITRATE 20 MG TAB PO SCH ×3 (09:18→21:25)
[2023-05-25] MEDS: ASPIRIN 81 MG PO SCH (09:18)
[2023-05-25] MEDS: DAPAGLIFLOZIN PROPANEDIOL 10 MG TABLET PO SCH (09:18)
[2023-05-25] MEDS: FUROSEMIDE 10 MG/ML 4 ML VIAL IV SCH ×2 (10:11→18:31)
[2023-05-25] MEDS: PANTOPRAZOLE 40 MG TABLET PO SCH ×2 (10:12→17:06)
[2023-05-25 10:50] LABS: Glucose,Whole Blood 167 mg/dL (70-110)
--- NOTE | 2023-05-25 12:52 | PN ---
PROGRESS NOTE SUBJECTIVE: Says his rash is much improved with scabies treatment that was given to him. He was itching last with hydroxyzine. Breathing is improving. He has systolic CHF. He has a large leg swelling, for which, he is on Lasix. Maybe I would like to up his Lasix from 10 to 20 mg when he goes home. Currently, he is on 40 IV q.12 Cardiology seen. No heart failure. OBJECTIVE: CARDIOVASCULAR: S1 and S2. LUNGS: Transmitted upper airway sounds. INTEGUMENT: Multiple pustules and excoriations throughout his trunk and extremities. PSYCHIATRIC: Fair mood and affect. NEUROLOGIC: Alert and oriented x3. ASSESSMENT AND PLAN: 1. Chronic obstructive pulmonary disease. 2. Diastolic congestive heart failure exacerbation. 3. Scabies and skin rash. Atypical dermatitis, improving with lindane treatment. This was continued on IV Lasix. Check his electrolytes in the morning. Possibly, do a stress test as an outpatient. Workup for cardiomyopathy as an outpatient. MMODL / IJN: [id number] /
--- NOTE | 2023-05-25 14:14 | P.PN ---
Subjective Progress Note Date: 05/25/23 Principal diagnosis: Heart failure The patient is a 63-year-old gentleman with extensive cardiac and medical history including coronary artery disease with a prior stenting of the RCA and also cardiomyopathy with an ejection fraction between 20-25% and pulmonary hypertension as well as systemic hypertension and dyslipidemia and hepatitis C and history of smoking and drinking alcohol with a he was just seen by our service recently with heart failure and he underwent an echo and revealed cardiomyopathy as described above. He presented back to the hospital was progressive exertional dyspnea started 3 days ago associated with progressive bilateral lower extremity edema. No discomfort or pain in the chest. No dizziness or lightheadedness and no feeling of heart racing or fluttering and no change in his weight. Workup was performed including an EKG and that showed sinus mechanism was no significant ST or T-wave abnormalities but low voltage QRS and also NT proBNP came to be severely elevated at 26,000. Troponin came in to be mildly elevated but seems to be flat across the board and the patient did not have any symptoms of chest pain or chest discomfort concerning for angina and the EKG did not show any ischemic changes. The patient clearly is in overt congestive heart failure. The chest x-ray showed bilateral pleural effusion. Examination is remarkable for diminished breathing sounds bilaterally and bilateral rhonchi and bilateral lower extremity is edema with a regular rate and rhythm and systolic murmur. 05/22/2023 The patient was seen and evaluated this morning. He still short of breath. He still have bilateral lower extremities edema. He still on oxygen. I would advise continue the current dose of Lasix IV. The creatinine is slightly worse. We'll continue monitor the kidney function as well as the electrolytes. He reports no pain in the chest and no dizziness or lightheadedness and no feeling of heart racing or fluttering. We'll consider at this point medical treatment for the mildly abnormal troponin. The examination is remarkable for severe bilateral lower extremity is edema was diminished breathing sounds bilaterally and irregular rhythm with a systolic murmur at the right and left upper sternal border 05/23/2023 The patient was seen and evaluated this morning. He still hypervolemic with severe bilateral lower extremity is edema and skin changes. He still short of breath. No blood work as of this morning. I am going to obtain a CBC and BMP. Meanwhile continue the current medical regimen including the current dose of Lasix IV. The examination is unremarkable for a systolic murmur and severe bilateral lower extremity is edema and diminished breathing sounds bilaterally. 05/24/2023 The patient was seen and evaluated this morning. He continues to have shortness of breath and bilateral lower extremity is edema. The creatinine is a slightly worse than yesterday. He continues to be on Lasix IV. The examination is remarkable for severe bilateral lower extremity is edema and diminished breathing sounds bilaterally. 05/25/2023 The patient was seen and evaluated this morning. Now he is experiencing b ilateral lower extremity is discomfort in both thigh worse on the left than the right. Beside that he still have severe bilateral lower extremity is edema. He continues to be on Lasix IV. No blood work as of today. I'm going to obtain venous duplex study to rule out DVT and also continue the current dose of Lasix IV and also obtain BMP today. Assessment Heart failure secondary to heart failure with reduced ejection fraction Severe cardiomyopathy CAD with prior stenting of the RCA Pulmonary hypertension Noncompliance with medications Multiple comorbid conditions including hepatitis C and history of drinking alcohol and smoking Plan Continue the current dose of Lasix IV Monitor the kidney function and electrolytes Venous duplex study to rule out DVT Consider coronary angiogram down the line Follow-up with the patient Objective - Vital Signs Vital signs: Vital Signs Temp 97.9 F 05/25/23 08:00 Pulse 81 05/25/23 08:00 Resp 16 05/25/23 08:00 BP 133/76 05/25/23 08:00 Pulse Ox 94 L 05/25/23 08:00 FiO2 Intake & Output 05/24/23 05/25/23 05/25/23 18:59 06:59 18:59 Other: # Voids 1 3 - Labs CBC & Chem 7: 05/24/23 06:54 05/24/23 06:54 Labs: Abnormal Lab Results - Last 24 Hours (Table) 05/24/23 05/24/23 05/25/23 Range/Units 16:45 20:27 05:57 POC Glucose (mg/dL) 233 H 171 H 229 H (70-110) mg/dL 05/25/23 Range/Units 10:49 POC Glucose (mg/dL) 167 H (70-110) mg/dL
[2023-05-25] MEDS: HYDROcodone/APAP 10-325MG 1 EACH TAB PO SCH ×3 (14:57→21:24)
[2023-05-25 16:32] LABS: African American GFR (CKD) 33 (>60 ml/min/1.73 sqM); Anion Gap 10 mmol/L; Blood Urea Nitrogen 57 mg/dL (9-20); Calcium 7.8 mg/dL (8.4-10.2); Carbon Dioxide 24 mmol/L (22-30); Chloride 97 mmol/L (98-107); Glucose 184 mg/dL (74-99); Non-African American GFR(CKD) 29 (>60 ml/min/1.73 sqM); Potassium 5.2 mmol/L (3.5-5.1); Sodium 131 mmol/L (137-145)
[2023-05-25 16:55] LABS: Glucose,Whole Blood 217 mg/dL (70-110)
--- NOTE | 2023-05-25 17:04 | US ---
EXAMINATION TYPE: US venous doppler duplex LE DATE OF EXAM: 05/25/2023 3:46 PM COMPARISON: NONE CLINICAL INDICATION: Male, 63 years old with history of bilateral edema pain rule out DVT; CHF, Hep C , Scabies, very swollen legs ongoing for awhile, no h/o dvt SIDE PERFORMED: Bilateral TECHNIQUE: The lower extremity deep venous system is examined utilizing real time linear array sonog hugo with graded compression, doppler sonography and color-flow sonography. VESSELS IMAGED: Common Femoral Vein Deep Femoral Vein Greater Saphenous Vein * Femoral Vein Popliteal Vein Small Saphenous Vein * Proximal Calf Veins (* superficial vessels) Patient has pitting edema bilateral legs, with multiple scabs, positive for scabies, too painful for patient to do compression images Right Leg: Negative for DVT - good color flow and doppler noted Left Leg: Negative for DVT- good color flow and doppler noted Grayscale, color doppler, spectral doppler imaging performed of the deep veins of the lower extremiti es. There is normal flow, compressibility, vascular waveforms. IMPRESSION: 1. No evidence for deep vein to most of either lower extremity. 2. Subcutaneous edema bilaterally.
[2023-05-25] MEDS: SODIUM CHLORIDE 0.9% 1,000 ML IV SCH (21:10)
[2023-05-25] MEDS: ATORVASTATIN 40 MG TAB PO SCH (21:25)
[2023-05-26] MEDS: MORPHINE SULFATE 4 MG/ML SYRINGE IVP PRN ×6 (02:16→23:55)
[2023-05-26] MEDS: FUROSEMIDE 10 MG/ML 4 ML VIAL IV SCH (06:24)
[2023-05-26] MEDS: PANTOPRAZOLE 40 MG TABLET PO SCH ×2 (06:24→17:40)
[2023-05-26] MEDS: SYMBICORT 80-4.5 MCG INHALER INHALATION SCH ×2 (08:06→20:26)
[2023-05-26] MEDS: IPRATROPIUM-ALBUTEROL 3 ML NEB INHALATION SCH ×4 (08:06→20:26)
[2023-05-26] MEDS: HYDROcodone/APAP 10-325MG 1 EACH TAB PO SCH ×4 (08:31→22:15)
[2023-05-26] MEDS: ASPIRIN 81 MG PO SCH (08:32)
[2023-05-26] MEDS: METOPROLOL SUCCINATE (ER) 25 MG TAB.ER.24H PO SCH (08:32)
[2023-05-26] MEDS: ISOSORBIDE DINITRATE 20 MG TAB PO SCH ×3 (08:32→20:08)
[2023-05-26] MEDS: SPIRONOLACTONE 25 MG TAB PO SCH (08:32)
[2023-05-26] MEDS: DAPAGLIFLOZIN PROPANEDIOL 10 MG TABLET PO SCH (08:33)
[2023-05-26 08:48] LABS: Basophils # (A) 0.03 X 10*3/uL (0.00-0.10); Basophils % (A) 0.8 %; Eosinophils # (A) 0.15 X 10*3/uL (0.04-0.35); Eosinophils % (A) 3.9 %; HCT 26.7 % (39.6-50.0); HGB 8.5 g/dL (13.0-17.0); Lymphocytes % (A) 12.9 %; MCH 30.1 pg (27.0-32.0); MCHC 31.8 g/dL (32.0-37.0); MCV 94.7 FL (80.0-97.0); Mean Platelet Volume 12.3 FL (9.5-12.2); Monocytes # (A) 0.69 X 10*3/uL (0.20-1.00); Monocytes % (A) 17.8 %; NRBC Per 100 WBC 0.02 X 10*3/uL (0.00-0.01); Neutrophils # (A) 2.49 X 10*3/uL (1.80-7.70); Neutrophils % (A) 64.1 %; Platelet Count 111 X 10*3/uL (140-440); RBC 2.82 X 10*6/uL (4.40-5.60); RDW 13.8 % (11.5-14.5); WBC 3.88 X 10*3/uL (4.50-10.00)
[2023-05-26 09:10] LABS: Albumin 3.2 g/dL (3.8-4.9); BUN/Creat Ratio 24.77 Ratio (12.00-20.00); Blood Urea Nitrogen 54.5 mg/dL (9.0-27.0); Calcium 7.9 mg/dL (8.7-10.3); Carbon Dioxide 22.5 mmol/L (21.6-31.8); Chloride 102 mmol/L (96-109); Glucose 210 mg/dL (70-110); Potassium 5.1 mmol/L (3.5-5.5); Sodium 136 mmol/L (135-145); Total Bilirubin 0.4 mg/dL (0.3-1.2); Total Protein 5.2 g/dL (6.2-8.2)
[2023-05-26 09:11] LABS: ALT 20 U/L (10-49); AST 26 U/L (14-35); Alkaline Phosphatase 91 U/L (41-126)
[2023-05-26 10:31] LABS: Glucose,Whole Blood 203 mg/dL (70-110)
[2023-05-26] MEDS: BUMETANIDE 0.25 MG/ML 10 ML VIAL IV SCH (14:29)
[2023-05-26] MEDS: metOLazone 5 MG TAB PO SCH (14:29)
--- NOTE | 2023-05-26 14:40 | P.PN ---
Subjective Progress Note Date: 05/26/23 Heart failure The patient is a 63-year-old gentleman with extensive cardiac and medical history including coronary artery disease with a prior stenting of the RCA and also cardiomyopathy with an ejection fraction between 20-25% and pulmonary hypertension as well as systemic hypertension and dyslipidemia and hepatitis C and history of smoking and drinking alcohol with a he was just seen by our service recently with heart failure and he underwent an echo and revealed cardiomyopathy as described above. He presented back to the hospital was progressive exertional dyspnea started 3 days ago associated with progressive bilateral lower extremity edema. No discomfort or pain in the chest. No dizziness or lightheadedness and no feeling of heart racing or fluttering and no change in his weight. Workup was performed including an EKG and that showed sinus mechanism was no significant ST or T-wave abnormalities but low voltage QRS and also NT proBNP came to be severely elevated at 26,000. Troponin came in to be mildly elevated but seems to be flat across the board and the patient did not have any symptoms of chest pain or chest discomfort concerning for angina and the EKG did not show any ischemic changes. The patient clearly is in overt congestive heart failure. The chest x-ray showed bilateral pleural effusion. Examination is remarkable for diminished breathing sounds bilaterally and b ilateral rhonchi and bilateral lower extremity is edema with a regular rate and rhythm and systolic murmur. 05/22/2023 The patient was seen and evaluated this morning. He still short of breath. He still have bilateral lower extremities edema. He still on oxygen. I would advise continue the current dose of Lasix IV. The creatinine is slightly worse. We'll continue monitor the kidney function as well as the electrolytes. He reports no pain in the chest and no dizziness or lightheadedness and no feeling of heart racing or fluttering. We'll consider at this point medical treatment for the mildly abnormal troponin. The examination is remarkable for severe bilateral lower extremity is edema was diminished breathing sounds bilaterally and irregular rhythm with a systolic murmur at the right and left upper sternal border 05/23/2023 The patient was seen and evaluated this morning. He still hypervolemic with severe bilateral lower extremity is edema and skin changes. He still short of breath. No blood work as of this morning. I am going to obtain a CBC and BMP. Meanwhile continue the current medical regimen including the current dose of Lasix IV. The examination is unremarkable for a systolic murmur and severe bilateral lower extremity is edema and diminished breathing sounds bilaterally. 05/24/2023 The patient was seen and evaluated this morning. He continues to have shortness of breath and bilateral lower extremity is edema. The creatinine is a slightly worse than yesterday. He continues to be on Lasix IV. The examination is remarkable for severe bilateral lower extremity is edema and diminished breathing sounds bilaterally. 05/25/2023 The patient was seen and evaluated this morning. Now he is experiencing bilateral lower extremity is discomfort in both thigh worse on the left than the right. Beside that he still have severe bilateral lower extremity is edema. He continues to be on Lasix IV. No blood work as of today. I'm going to obtain venous duplex study to rule out DVT and also continue the current dose of Lasix IV and also obtain BMP today. 05/26 Venous Doppler study revealed no DVT. Patient has been maintained on IV Lasix 40 mg every 12 hours. Repeat blood work reveals WBC 3.8, hemoglobin 8.5, platelet count 111. Electrolytes are within normal limits. Creatinine 2.2 and BUN 54. Blood sugar 210. Patient states that he has been urinating quite a bit but continues to have lower extremity edema. He thinks he has less edema in his belly. Physical Examination Gen: This is a 63-year-old male sitting on the edge of his bed, legs are in a dependent position. HEENT: Head is atraumatic, normocephalic. Pupils equal, round. Sclerae is anicteric. LUNGS: Diminished breath sounds bilaterally. No intercostal retractions. HEART: Regular rate and rhythm. No murmur. EXTREMITIES: 2+ pedal edema. No calf tenderness. NEUROLOGICAL: Patient is awake, alert and oriented x3. Assessment Acute Heart failure secondary to heart failure with reduced ejection fraction Severe cardiomyopathy CAD with prior stenting of the RCA Pulmonary hypertension Noncompliance with medications Multiple comorbid conditions including hepatitis C and history of drinking alcohol and smoking Pancytopenia Plan Discontinue IV Lasix Start patient on Bumex 2 mg IV every 12 hours Start patient on hydralazine 10 mg 3 times daily to decrease afterload Start patient on Zaroxolyn 5 mg daily Monitor the kidney function and electrolytes Consider coronary angiogram down the line Follow-up with the patient Nurse practitioner note has been reviewed, I agree with the documented findings and plan of care. Patient was seen and examined. Objective - Vital Signs Vital signs: Vital Signs Temp 98.2 F 05/26/23 07:38 Pulse 83 05/26/23 07:38 Resp 17 05/26/23 07:38 BP 129/74 05/26/23 07:38 Pulse Ox 97 05/26/23 07:38 FiO2 Intake & Output 05/25/23 05/26/23 05/26/23 18:59 06:59 18:59 Other: # Voids 4 3 # Bowel Movements 1 - Labs CBC & Chem 7: 05/26/23 05:42 05/26/23 05:42 Labs: Abnormal Lab Results - Last 24 Hours (Table) 05/25/23 05/25/23 05/26/23 Range/Units 16:00 16:54 05:42 WBC 3.88 L (4.50-10.00) X 10*3/uL RBC 2.82 L (4.40-5.60) X 10*6/uL Hgb 8.5 L (13.0-17.0) g/dL Hct 26.7 L (39.6-50.0) % MCHC 31.8 L (32.0-37.0) g/dL Plt Count 111 L (140-440) X 10*3/uL MPV 12.3 H (9.5-12.2) FL Lymphocytes # 0.50 L (0.90-5.00) X 10*3/uL NRBC/100 WBC Diff 0.02 H (0.00-0.01) X 10*3/uL Sodium 131 L (137-145) mmol/L Potassium 5.2 H (3.5-5.1) mmol/L Chloride 97 L (98-107) mmol/L BUN 57 H (9-20) mg/dL Creatinine 2.32 H (0.66-1.25) mg/dL Est GFR (CKD-EPI) (>=60) BUN/Creatinine Ratio (12.00-20.00) Ratio Glucose 184 H (74-99) mg/dL POC Glucose (mg/dL) 217 H (70-110) mg/dL Calcium 7.8 L (8.4-10.2) mg/dL Total Protein (6.2-8.2) g/dL Albumin (3.8-4.9) g/dL 11/27/23 11/27/23 Range/Units 05:42 10:30 WBC (4.50-10.00) X 10*3/uL RBC (4.40-5.60) X 10*6/uL Hgb (13.0-17.0) g/dL Hct (39.6-50.0) % MCHC (32.0-37.0) g/dL Plt Count (140-440) X 10*3/uL MPV (9.5-12.2) FL Lymphocytes # (0.90-5.00) X 10*3/uL NRBC/100 WBC Diff (0.00-0.01) X 10*3/uL Sodium (137-145) mmol/L Potassium (3.5-5.1) mmol/L Chloride (98-107) mmol/L BUN 54.5 H (9-20) mg/dL Creatinine 2.2 H (0.66-1.25) mg/dL Est GFR (CKD-EPI) 33 L (>=60) BUN/Creatinine Ratio 24.77 H (12.00-20.00) Ratio Glucose 210 H (74-99) mg/dL POC Glucose (mg/dL) 203 H (70-110) mg/dL Calcium 7.9 L (8.4-10.2) mg/dL Total Protein 5.2 L (6.2-8.2) g/dL Albumin 3.2 L (3.8-4.9) g/dL
[2023-05-26] MEDS: hydrALAZINE HCL 10 MG TAB PO SCH ×2 (15:17→22:15)
[2023-05-26] MEDS: SODIUM CHLORIDE 0.9% 1,000 ML IV SCH (20:05)
[2023-05-26] MEDS: ATORVASTATIN 40 MG TAB PO SCH (20:07)
[2023-05-27] MEDS: BUMETANIDE 0.25 MG/ML 10 ML VIAL IV SCH ×2 (00:17→14:15)
[2023-05-27] MEDS: MORPHINE SULFATE 4 MG/ML SYRINGE IVP PRN ×4 (03:56→20:17)
[2023-05-27] MEDS: PANTOPRAZOLE 40 MG TABLET PO SCH ×2 (06:30→17:34)
[2023-05-27 08:39] LABS: ALT 23 U/L (10-49); AST 30 U/L (14-35); Albumin 3.4 g/dL (3.8-4.9); Albumin/Globulin Ratio 1.55 Ratio (1.60-3.17); Alkaline Phosphatase 90 U/L (41-126); BUN/Creat Ratio 28.45 Ratio (12.00-20.00); Blood Urea Nitrogen 56.9 mg/dL (9.0-27.0); Calcium 8.3 mg/dL (8.7-10.3); Carbon Dioxide 26.1 mmol/L (21.6-31.8); Chloride 97 mmol/L (96-109); Globulin 2.2 g/dL (1.6-3.3); Glucose 194 mg/dL (70-110); Potassium 4.7 mmol/L (3.5-5.5); Sodium 134 mmol/L (135-145); Total Bilirubin 0.5 mg/dL (0.3-1.2); Total Protein 5.6 g/dL (6.2-8.2)
[2023-05-27] MEDS: IPRATROPIUM-ALBUTEROL 3 ML NEB INHALATION SCH ×4 (08:40→20:40)
[2023-05-27] MEDS: SYMBICORT 80-4.5 MCG INHALER INHALATION SCH ×2 (08:40→20:40)
[2023-05-27 08:44] LABS: Basophils # (A) 0.03 X 10*3/uL (0.00-0.10); Basophils % (A) 0.6 %; Eosinophils # (A) 0.17 X 10*3/uL (0.04-0.35); Eosinophils % (A) 3.5 %; HCT 29.3 % (39.6-50.0); HGB 9.6 g/dL (13.0-17.0); Lymphocytes # (A) 0.56 X 10*3/uL (0.90-5.00); Lymphocytes % (A) 11.4 %; MCH 30.2 pg (27.0-32.0); MCHC 32.8 g/dL (32.0-37.0); MCV 92.1 FL (80.0-97.0); Monocytes # (A) 0.82 X 10*3/uL (0.20-1.00); Monocytes % (A) 16.7 %; NRBC Per 100 WBC 0 X 10*3/uL (0.00-0.01); Neutrophils # (A) 3.31 X 10*3/uL (1.80-7.70); Neutrophils % (A) 67.6 %; Platelet Count 135 X 10*3/uL (140-440); RBC 3.18 X 10*6/uL (4.40-5.60); RDW 13.6 % (11.5-14.5)
--- NOTE | 2023-05-27 08:46 | P.PN ---
Subjective Progress Note Date: 05/27/23 Heart failure The patient is a 63-year-old gentleman with extensive cardiac and medical history including coronary artery disease with a prior stenting of the RCA and also cardiomyopathy with an ejection fraction between 20-25% and pulmonary hypertension as well as systemic hypertension and dyslipidemia and hepatitis C and history of smoking and drinking alcohol with a he was just seen by our service recently with heart failure and he underwent an echo and revealed cardiomyopathy as described above. He presented back to the hospital was progressive exertional dyspnea started 3 days ago associated with progressive bilateral lower extremity edema. No discomfort or pain in the chest. No dizziness or lightheadedness and no feeling of heart racing or fluttering and no change in his weight. Workup was performed including an EKG and that showed sinus mechanism was no significant ST or T-wave abnormalities but low voltage QRS and also NT proBNP came to be severely elevated at 26,000. Troponin came in to be mildly elevated but seems to be flat across the board and the patient did not have any symptoms of chest pain or chest discomfort concerning for angina and the EKG did not show any ischemic changes. The patient clearly is in overt congestive heart failure. The chest x-ray showed bilateral pleural effusion. Examination is remarkable for diminished breathing sounds bilaterally and b ilateral rhonchi and bilateral lower extremity is edema with a regular rate and rhythm and systolic murmur. 05/22/2023 The patient was seen and evaluated this morning. He still short of breath. He still have bilateral lower extremities edema. He still on oxygen. I would advise continue the current dose of Lasix IV. The creatinine is slightly worse. We'll continue monitor the kidney function as well as the electrolytes. He reports no pain in the chest and no dizziness or lightheadedness and no feeling of heart racing or fluttering. We'll consider at this point medical treatment for the mildly abnormal troponin. The examination is remarkable for severe bilateral lower extremity is edema was diminished breathing sounds bilaterally and irregular rhythm with a systolic murmur at the right and left upper sternal border 05/23/2023 The patient was seen and evaluated this morning. He still hypervolemic with severe bilateral lower extremity is edema and skin changes. He still short of breath. No blood work as of this morning. I am going to obtain a CBC and BMP. Meanwhile continue the current medical regimen including the current dose of Lasix IV. The examination is unremarkable for a systolic murmur and severe bilateral lower extremity is edema and diminished breathing sounds bilaterally. 05/24/2023 The patient was seen and evaluated this morning. He continues to have shortness of breath and bilateral lower extremity is edema. The creatinine is a slightly worse than yesterday. He continues to be on Lasix IV. The examination is remarkable for severe bilateral lower extremity is edema and diminished breathing sounds bilaterally. 05/25/2023 The patient was seen and evaluated this morning. Now he is experiencing bilateral lower extremity is discomfort in both thigh worse on the left than the right. Beside that he still have severe bilateral lower extremity is edema. He continues to be on Lasix IV. No blood work as of today. I'm going to obtain venous duplex study to rule out DVT and also continue the current dose of Lasix IV and also obtain BMP today. 05/26 Venous Doppler study revealed no DVT. Patient has been maintained on IV Lasix 40 mg every 12 hours. Repeat blood work reveals WBC 3.8, hemoglobin 8.5, platelet count 111. Electrolytes are within normal limits. Creatinine 2.2 and BUN 54. Blood sugar 210. Patient states that he has been urinating quite a bit but continues to have lower extremity edema. He thinks he has less edema in his belly. 05/27 Patient is seen in follow-up. He states his breathing is better with nebulizer treatments. He continues to have lower extremity edema. Yesterday IV Lasix was changed to IV Bumex, hydralazine and Zaroxolyn were ordered. Repeat blood work reveals sodium 134, potassium 4.7, BUN 56 creatinine 2.0. Physical Examination Gen: This is a 63-year-old male sitting on the edge of his bed, legs are in a dependent position. HEENT: Head is atraumatic, normocephalic. Pupils equal, round. Sclerae is anicteric. LUNGS: Diminished breath sounds bilaterally. No intercostal retractions. HEART: Regular rate and rhythm. No murmur. EXTREMITIES: 2+ pedal edema with serous drainage. No calf tenderness. NEUROLOGICAL: Patient is awake, alert and oriented x3. Assessment Acute Heart failure secondary to heart failure with reduced ejection fraction Severe cardiomyopathy CAD with prior stenting of the RCA Pulmonary hypertension Noncompliance with medications Multiple comorbid conditions including hepatitis C and history of drinking alcohol and smoking Pancytopenia Plan Continue patient on Bumex 2 mg IV every 12 hours Continue patient on hydralazine 10 mg 3 times daily to decrease afterload Continue patient on Zaroxolyn 5 mg daily Continue other cardiac medications as well Monitor the kidney function and electrolytes Consider coronary angiogram down the line Follow-up with the patient Nurse practitioner note has been reviewed, I agree with the documented findings and plan of care. Patient was seen and examined. Objective - Vital Signs Vital signs: Vital Signs Temp 98.8 F 05/27/23 07:02 Pulse 85 05/27/23 07:02 Resp 17 05/27/23 07:02 BP 123/73 05/27/23 07:02 Pulse Ox 98 05/27/23 07:02 FiO2 Intake & Output 05/26/23 05/27/23 05/27/23 18:59 06:59 18:59 Weight 79.379 kg Other: # Voids 4 3 # Bowel Movements 2 - Labs CBC & Chem 7: 05/26/23 05:42 05/27/23 05:45 Labs: Abnormal Lab Results - Last 24 Hours (Table) 05/26/23 05/26/23 05/26/23 Range/Units 05:42 05:42 10:30 WBC 3.88 L (4.50-10.00) X 10*3/uL RBC 2.82 L (4.40-5.60) X 10*6/uL Hgb 8.5 L (13.0-17.0) g/dL Hct 26.7 L (39.6-50.0) % MCHC 31.8 L (32.0-37.0) g/dL Plt Count 111 L (140-440) X 10*3/uL MPV 12.3 H (9.5-12.2) FL Lymphocytes # 0.50 L (0.90-5.00) X 10*3/uL NRBC/100 WBC Diff 0.02 H (0.00-0.01) X 10*3/uL BUN 54.5 H (9.0-27.0) mg/dL Creatinine 2.2 H (0.6-1.5) mg/dL Est GFR (CKD-EPI) 33 L (>=60) BUN/Creatinine Ratio 24.77 H (12.00-20.00) Ratio Glucose 210 H (70-110) mg/dL POC Glucose (mg/dL) 203 H (70-110) mg/dL Calcium 7.9 L (8.7-10.3) mg/dL Total Protein 5.2 L (6.2-8.2) g/dL Albumin 3.2 L (3.8-4.9) g/dL
[2023-05-27] MEDS: SPIRONOLACTONE 25 MG TAB PO SCH (09:20)
[2023-05-27] MEDS: ASPIRIN 81 MG PO SCH (09:20)
[2023-05-27] MEDS: METOPROLOL SUCCINATE (ER) 25 MG TAB.ER.24H PO SCH (09:20)
[2023-05-27] MEDS: hydrALAZINE HCL 10 MG TAB PO SCH ×3 (09:20→21:59)
[2023-05-27] MEDS: DAPAGLIFLOZIN PROPANEDIOL 10 MG TABLET PO SCH (09:21)
[2023-05-27] MEDS: ISOSORBIDE DINITRATE 20 MG TAB PO SCH ×3 (09:21→22:00)
[2023-05-27] MEDS: HYDROcodone/APAP 10-325MG 1 EACH TAB PO SCH ×4 (09:21→21:59)
[2023-05-27 10:40] LABS: Glucose,Whole Blood 216 mg/dL (70-110)
[2023-05-27 16:36] LABS: Glucose,Whole Blood 175 mg/dL (70-110)
[2023-05-27] MEDS: CALAMINE/ZINC OXIDE LOTION 177 ML BTL TOPICAL SCH (18:11)
[2023-05-27] MEDS: ATORVASTATIN 40 MG TAB PO SCH (20:18)
[2023-05-27] MEDS: SODIUM CHLORIDE 0.9% 1,000 ML IV SCH (20:18)
[2023-05-27 20:20] LABS: Glucose,Whole Blood 195 mg/dL (70-110)
--- NOTE | 2023-05-27 20:36 | P.CONS ---
History of Present Illness - Reason for Consult Consult date: 05/27/23 pancytopenia Requesting physician: Eric Loyola - Chief Complaint SOB - History of Present Illness Patient is a 63-year-old male with an extensive medical history. Consult was placed for pancytopenia. Patient presented to the emergency room for worsening shortness of breath. Upon admission chest x-ray revealed vascular pulmonary congestion. BNP elevated at 26,800. Mild elevation in serial troponins. Cardiology following. Pt is on Iv and oral diuretics. Patient is somewhat of a poor historian and states that he was previously treated for hepatitis C but does not know when and states that he was told he no longer had detectable disease but then was told that he did had active disease but does not recall when this was. Patient does have a history of heavy alcohol abuse and drug abuse but quit approximately 20 years ago. Patient denies any episodes of acute bleeding and last colonoscopy was approximately 20 years ago but does not recall if study was normal or not. During exam patient became angry and verbally aggressive and started raising voice stating, "I do not need this shit right now, I have too much going on." Patient stated he wished to end visit but was agreeable to proceed with further workup to evaluate his pancytopenia. CBC today revealed WBC 4.9, hgb 9.6, plts 135,000. Creatinine 2.0, GFR 37. Upon review of labs patient has had some mild anemia and thrombocytopenia since 2019. Review of Systems 10 point ROS is negative except as stated in the HPI Past Medical History Past Medical History: Coronary Artery Disease (CAD), Heart Failure, COPD, CVA/TIA, Diabetes Mellitus, Eye Disorder, Hyperlipidemia, Hypertension, Liver Disease, Myocardial Infarction ([place]), Renal Disease Additional Past Medical History / Comment(s): Iischemic cardiomyopathy, PVCs, CVA 2019 with L sided weakness, chronic low back pain d/t vertebral fractures years ago as well as cervical pinched nerves, DDD, IDDM type II, neuropathy bilateral hands/legs and feet, pt states he can barely see with L eye and R eye vision is not very good/he is unsure why but believes it is d/t diabetes, liver disease/hepatitis C/ETOH abuse, recurrent ascities/paracentesis, recent R hip fracture d/t fall/recurrent falls. Last Myocardial Infarction Date:: October 2018 History of Any Multi-Drug Resistant Organisms: MRSA Year Discovered:: 11/23/20 MDRO Source:: FOOT MRSA Past Surgical History: Cholecystectomy, Heart Catheterization, Heart Catheterization With Stent, Tonsillectomy Additional Past Surgical History / Comment(s): R heel I&D, colonoscopy. Past Anesthesia/Blood Transfusion Reactions: No Reported Reaction Date of Last Stent Placement:: 2011 Past Psychological History: Anxiety, Bipolar, Depression Additional Psychological History / Comment(s): Pt states he lives with his brother. Pt ambulates with a walker. He uses rides thru insurance. Case management/social workers are involved in pt's care Smoking Status: Current every day smoker Past Alcohol Use History: None Reported Additional Past Alcohol Use History / Comment(s): Pt started smoking in 1976. Pt states he has hx of heavy alcohol use but states none for years Past Drug Use History: Marijuana Additional Drug Use History / Comment(s): Marijuana occasionally. pt stated he had ICE on 02/24/2020 - Past Family History Mother Family Medical History: Cancer Father Family Medical History: Coronary Artery Disease (CAD), Diabetes Mellitus, Hyper tension Medications and Allergies Home Medications Medication Instructions Recorded Confirmed Type Aspirin 81 mg PO DAILY 90 Days #90 tab 04/22/23 05/20/23 Rx Atorvastatin [Lipitor] 40 mg PO HS 90 Days #90 tab 04/22/23 05/20/23 Rx Dapagliflozin Propanediol [Farxiga] 10 mg PO DAILY 30 Days #30 tab 04/22/23 05/20/23 Rx Isosorbide Dinitrate [Isordil] 20 mg PO TID 90 Days #180 tab 04/22/23 05/20/23 Rx Metoprolol Succinate (ER) [Toprol 25 mg PO DAILY 90 Days #90 tab 04/22/23 05/20/23 Rx XL] Pantoprazole [Protonix] 40 mg PO AC-BID 90 Days #180 tab 04/22/23 05/20/23 Rx Spironolactone [Aldactone] 25 mg PO DAILY 90 Days #90 tab 04/22/23 05/20/23 Rx Albuterol Sulfate [Ventolin HFA] 1 - 2 puff INHALATION RT-Q6H PRN 05/20/23 05/20/23 History Fluticasone Propion/Salmeterol 1 puff INHALATION RT-BID 05/20/23 05/20/23 History [Advair 250-50 Diskus] HYDROcodone/APAP 10-325MG [[place] 1 tab PO QID 05/20/23 05/20/23 History 10-325] Ipratropium-Albuterol Nebulize 3 ml INHALATION DIRECTED 05/20/23 05/20/23 History [Duoneb 0.5 mg-3 mg/3 ml Soln] Tiotropium 2.5 Mcg/Puff [Spiriva 2 puff INHALATION RT-DAILY 05/20/23 05/20/23 History Respimat 2.5 Mcg] Allergies Allergy/AdvReac Type Severity Reaction Status Date / Time Penicillins Allergy Unknown Verified 05/20/23 19:54 Childhood metformin AdvReac Mild Nausea Verified 05/20/23 19:54 Physical Exam Vitals: Vital Signs Temp Pulse Pulse Resp BP BP Pulse Ox 05/27/23 19:55 97.6 F 92 16 91/50 98 05/27/23 14:00 98.2 F 80 19 131/72 97 05/27/23 08:50 80 05/27/23 08:40 82 92 L 05/27/23 07:02 98.8 F 85 17 123/73 98 05/27/23 02:24 97.7 F 82 18 147/79 96 Intake and Output 05/27/23 05/27/23 05/27/23 06:59 14:59 22:59 Intake Total 540 1292 Output Total 700 500 Balance -160 792 Intake: Oral 540 Blood Product 1292 Output: Urine 700 500 Other: Voiding Method Urinal # Voids 3 # Bowel Movements 2 Full PE not performed due to pt ending visit before exam could be performed. Based on visual exam, breathing even and unlabored, speech clear and intact. A&Ox3. Mood irritable. Multiple lesions to BUE Results CBC & Chem 7: 05/27/23 05:45 05/27/23 05:45 Labs: Abnormal Lab Results - Last 24 Hours (Table) 05/27/23 05/27/23 05/27/23 Range/Units 05:45 05:45 10:38 RBC 3.18 L (4.40-5.60) X 10*6/uL Hgb 9.6 L (13.0-17.0) g/dL Hct 29.3 L (39.6-50.0) % Plt Count 135 L (140-440) X 10*3/uL Lymphocytes # 0.56 L (0.90-5.00) X 10*3/uL Sodium 134 L (135-145) mmol/L BUN 56.9 H (9.0-27.0) mg/dL Creatinine 2.0 H (0.6-1.5) mg/dL Est GFR (CKD-EPI) 37 L (>=60) BUN/Creatinine Ratio 28.45 H (12.00-20.00) Ratio Glucose 194 H (70-110) mg/dL POC Glucose (mg/dL) 216 H (70-110) mg/dL Calcium 8.3 L (8.7-10.3) mg/dL Total Protein 5.6 L (6.2-8.2) g/dL Albumin 3.4 L (3.8-4.9) g/dL Albumin/Globulin Ratio 1.55 L (1.60-3.17) Ratio 05/27/23 Range/Units 16:35 RBC (4.40-5.60) X 10*6/uL Hgb (13.0-17.0) g/dL Hct (39.6-50.0) % Plt Count (140-440) X 10*3/uL Lymphocytes # (0.90-5.00) X 10*3/uL Sodium (135-145) mmol/L BUN (9.0-27.0) mg/dL Creatinine (0.6-1.5) mg/dL Est GFR (CKD-EPI) (>=60) BUN/Creatinine Ratio (12.00-20.00) Ratio Glucose (70-110) mg/dL POC Glucose (mg/dL) 175 H (70-110) mg/dL Calcium (8.7-10.3) mg/dL Total Protein (6.2-8.2) g/dL Albumin (3.8-4.9) g/dL Albumin/Globulin Ratio (1.60-3.17) Ratio Assessment and Plan (1) Pancytopenia Current Visit: Yes Status: Acute Priority: Medium Code(s): D61.818 - OTHER PANCYTOPENIA SNOMED Code(s): 097796441 Plan: Pancytopenia: -HPI somewhat limited due to patient stopping HPI/exam. Hx of Hep C, alcohol and drug abuse. Denies any episodes of acute bleeding. Last colonoscopy approx 20 yrs ago, does not recall findings, never f/u as directed. Denies EGD in past. -Mild anemia and thrombocytopenia noted. WBC normal today. Hgb 9.6, Plt 135,000. Mild anemia and thrombocytopenia noted since 2019. -Pancytopenia workup ordered. Pt was agreeable to proceed with workup -Mild noted cytopenias likely reactive in nature, as anemia and thrombocytopenia has been noted during multiple hospital admissions since 2019. Thrombocytopenia also likely contributed by patients underlying hx of hep C and etoh abuse. -Will continue to monitor and provide further recommendations pending workup
--- NOTE | 2023-05-27 21:37 | PN ---
PROGRESS NOTE DATE OF SERVICE: 05/26/2023 SUBJECTIVE: He says his rash is improving. His feet swelling is going down with IV Lasix. He has a nebulizer to go home with. Otherwise, he should not be going home without his breathing machine. OBJECTIVE: VITAL SIGNS: Blood pressure 123/73, O2 of 98% on room air, pulse 80 to 85, respiratory rate 16 to 18. CARDIOVASCULAR: S1, S2. LUNGS: Scattered rhonchi and wheeze. HEMATOLOGY: Negative Homans. PSYCH: Fair mood and affect. LABORATORY DATA: White count is 4.9, hemoglobin is 9.6, BUN is 54, creatinine 2.2. Sugars in mid 200s. ASSESSMENT: Congestive heart failure, chronic obstructive pulmonary disease, pulmonary hypertension. Prognosis guarded. Possibly discharge home in the next 24 to 48 hours. Acute dermatitis, improved with treatment with permethrin, Atarax for itching. Leg swelling has gone down. We switched the diuretic from Lasix to Bumex. Possibly had a drug reaction to Lasix versus scabies, which was treated with permethrin. The patient is improving. Possibly discharge home in the next 24 to 48 hours. MMODL / IJN: [id number] /
--- NOTE | 2023-05-27 21:40 | PN ---
PROGRESS NOTE SUBJECTIVE: The patient is better with breathing treatments, IV Lasix changed to IV Bumex. His blood pressure is better. OBJECTIVE: CARDIOVASCULAR: S1, S2. LUNGS: Clear. GI: Soft. HEMATOLOGY: Negative for Homans. ASSESSMENT AND PLAN: Coronary artery disease, severe cardiomyopathy, reduced ejection fraction, heart failure, pulmonary hypertension, COPD, noncompliance with medicines. Continue current treatments. Possible discharge home in next 24 to 48 hours. MMODL / IJN: [id number] /
[2023-05-28] MEDS: MORPHINE SULFATE 4 MG/ML SYRINGE IVP PRN ×6 (00:39→22:06)
[2023-05-28] MEDS: BUMETANIDE 0.25 MG/ML 10 ML VIAL IV SCH ×2 (00:40→08:42)
[2023-05-28 02:32] LABS: Albumin 3.5 g/dL (3.8-4.9); Immunoglobulin M 87.2 mg/dL (40.0-280.0); Protein, Total 5.6 g/dL (6.2-8.2)
[2023-05-28 02:53] LABS: % Iron Saturation 6.88 (15.00-50.00); Ferritin 34.9 ng/mL (22.0-322.0)
[2023-05-28 05:19] LABS: Glucose,Whole Blood 159 mg/dL (70-110)
--- NOTE | 2023-05-28 07:24 | P.CONS ---
History of Present Illness - Reason for Consult Consult date: 05/27/23 - History of Present Illness Patient is a 63-year-old male with a past medical history significant for diabetes mellitus hypertension hyperlipidemia MS coronary artery disease presented to the hospital about a week ago on 05/20/2023 for evaluation of shortness of breath for the pain has been getting worse for 2 days before presented to the hospital patient was having increasing swelling to bilateral lower extremity with associated itching and scratching patient during this admission has been afebrile and no fever has been recorded subsequently patient not hypoxic or need for supplemental oxygen did have a normal white count creatinine is 2.0 admission creatinine was 1.34 patient is currently being treated by cardiology for underlying Congestive heart failure and also have a lower extremity Doppler that was negative for DVT with the patient's symptoms of increasing swelling lower extremity itching and scratching concerning for dermatitis infectious was consulted for further management Past Medical History Past Medical History: Coronary Artery Disease (CAD), Heart Failure, COPD, CVA/TIA, Diabetes Mellitus, Eye Disorder, Hyperlipidemia, Hypertension, Liver D isease, Myocardial Infarction ([place]), Renal Disease Additional Past Medical History / Comment(s): Iischemic cardiomyopathy, PVCs, CVA 2019 with L sided weakness, chronic low back pain d/t vertebral fractures years ago as well as cervical pinched nerves, DDD, IDDM type II, neuropathy bilateral hands/legs and feet, pt states he can barely see with L eye and R eye vision is not very good/he is unsure why but believes it is d/t diabetes, liver disease/hepatitis C/ETOH abuse, recurrent ascities/paracentesis, recent R hip fracture d/t fall/recurrent falls. Last Myocardial Infarction Date:: October 2018 History of Any Multi-Drug Resistant Organisms: MRSA Year Discovered:: 11/23/20 MDRO Source:: FOOT MRSA Past Surgical History: Cholecystectomy, Heart Catheterization, Heart Catheterization With Stent, Tonsillectomy Additional Past Surgical History / Comment(s): R heel I&D, colonoscopy. Past Anesthesia/Blood Transfusion Reactions: No Reported Reaction Date of Last Stent Placement:: 2011 Past Psychological History: Anxiety, Bipolar, Depression Additional Psychological History / Comment(s): Pt states he lives with his brother. Pt ambulates with a walker. He uses rides thru insurance. Case management/social workers are involved in pt's care Smoking Status: Current every day smoker Past Alcohol Use History: None Reported Additional Past Alcohol Use History / Comment(s): Pt started smoking in 1976. Pt states he has hx of heavy alcohol use but states none for years Past Drug Use History: Marijuana Additional Drug Use History / Comment(s): Marijuana occasionally. pt stated he had ICE on 02/24/2020 - Past Family History Mother Family Medical History: Cancer Father Family Medical History: Coronary Artery Disease (CAD), Diabetes Mellitus, Hypertension Medications and Allergies Home Medications Medication Instructions Recorded Confirmed Type Aspirin 81 mg PO DAILY 90 Days #90 tab 04/22/23 05/20/23 Rx Atorvastatin [Lipitor] 40 mg PO HS 90 Days #90 tab 04/22/23 05/20/23 Rx Dapagliflozin Propanediol [Farxiga] 10 mg PO DAILY 30 Days #30 tab 04/22/23 05/20/23 Rx Isosorbide Dinitrate [Isordil] 20 mg PO TID 90 Days #180 tab 04/22/23 05/20/23 Rx Metoprolol Succinate (ER) [Toprol 25 mg PO DAILY 90 Days #90 tab 04/22/23 05/20/23 Rx XL] Pantoprazole [Protonix] 40 mg PO AC-BID 90 Days #180 tab 04/22/23 05/20/23 Rx Spironolactone [Aldactone] 25 mg PO DAILY 90 Days #90 tab 04/22/23 05/20/23 Rx Albuterol Sulfate [Ventolin HFA] 1 - 2 puff INHALATION RT-Q6H PRN 05/20/23 05/20/23 History Fluticasone Propion/Salmeterol 1 puff INHALATION RT-BID 05/20/23 05/20/23 History [Advair 250-50 Diskus] HYDROcodone/APAP 10-325MG [[place] 1 tab PO QID 05/20/23 05/20/23 History 10-325] Ipratropium-Albuterol Nebulize 3 ml INHALATION DIRECTED 05/20/23 05/20/23 History [Duoneb 0.5 mg-3 mg/3 ml Soln] Tiotropium 2.5 Mcg/Puff [Spiriva 2 puff INHALATION RT-DAILY 05/20/23 05/20/23 History Respimat 2.5 Mcg] Allergies Allergy/AdvReac Type Severity Reaction Status Date / Time Penicillins Allergy Unknown Verified 05/20/23 19:54 Childhood metformin AdvReac Mild Nausea Verified 05/20/23 19:54 Physical Exam Vitals: Vital Signs Temp Pulse Pulse Resp BP BP Pulse Ox 05/27/23 08:50 80 05/27/23 08:40 82 92 L 05/27/23 07:02 98.8 F 85 17 123/73 98 05/27/23 02:24 97.7 F 82 18 147/79 96 05/26/23 20:00 97.6 F 74 16 152/79 100 05/26/23 13:28 98.2 F 78 16 125/67 97 Intake and Output 05/26/23 05/27/23 05/27/23 22:59 06:59 14:59 Other: Voiding Method Urinal # Voids 4 3 # Bowel Movements 2 Results CBC & Chem 7: 05/29/23 06:32 05/29/23 06:32 Labs: Abnormal Lab Results - Last 24 Hours (Table) 05/27/23 05/27/23 05/27/23 Range/Units 05:45 05:45 10:38 RBC 3.18 L (4.40-5.60) X 10*6/uL Hgb 9.6 L (13.0-17.0) g/dL Hct 29.3 L (39.6-50.0) % Plt Count 135 L (140-440) X 10*3/uL Lymphocytes # 0.56 L (0.90-5.00) X 10*3/uL Sodium 134 L (135-145) mmol/L BUN 56.9 H (9.0-27.0) mg/dL Creatinine 2.0 H (0.6-1.5) mg/dL Est GFR (CKD-EPI) 37 L (>=60) BUN/Creatinine Ratio 28.45 H (12.00-20.00) Ratio Glucose 194 H (70-110) mg/dL POC Glucose (mg/dL) 216 H (70-110) mg/dL Calcium 8.3 L (8.7-10.3) mg/dL Total Protein 5.6 L (6.2-8.2) g/dL Albumin 3.4 L (3.8-4.9) g/dL Albumin/Globulin Ratio 1.55 L (1.60-3.17) Ratio Assessment and Plan Plan: 1patient in the hospital with increasing shortness of breath also increasing swelling lower extremity to have some diffuse swelling multiple scratch cleary and itching likely concerning for venous stasis dermatitis clinic suspicious low for cellulitis 2-we will advise calamine lotion to bilateral lower extremity followed by Margarito wrap to keep some of the swelling down 3-no need for systemic antibiotic therapy We will follow on clinical condition and cultures to further adjust medication if needed Thank you for this consultation we will follow the patient along with you Dictation was produced using [employer] dictation software. please excuse any grammatical, word or spelling errors. Time with Patient: Greater than 30
[2023-05-28] MEDS: METOPROLOL SUCCINATE (ER) 25 MG TAB.ER.24H PO SCH (08:42)
[2023-05-28] MEDS: ASPIRIN 81 MG PO SCH (08:42)
[2023-05-28] MEDS: SPIRONOLACTONE 25 MG TAB PO SCH (08:42)
[2023-05-28] MEDS: hydrALAZINE HCL 10 MG TAB PO SCH ×3 (08:42→22:05)
[2023-05-28] MEDS: PANTOPRAZOLE 40 MG TABLET PO SCH ×2 (08:42→15:26)
[2023-05-28] MEDS: ISOSORBIDE DINITRATE 20 MG TAB PO SCH ×3 (08:43→22:05)
[2023-05-28] MEDS: metOLazone 5 MG TAB PO SCH (08:43)
[2023-05-28] MEDS: DAPAGLIFLOZIN PROPANEDIOL 10 MG TABLET PO SCH (08:44)
[2023-05-28] MEDS: CALAMINE/ZINC OXIDE LOTION 177 ML BTL TOPICAL SCH (08:45)
[2023-05-28] MEDS: HYDROcodone/APAP 10-325MG 1 EACH TAB PO SCH ×4 (08:52→21:56)
[2023-05-28] MEDS: SYMBICORT 80-4.5 MCG INHALER INHALATION SCH ×2 (10:09→21:32)
[2023-05-28] MEDS: IPRATROPIUM-ALBUTEROL 3 ML NEB INHALATION SCH ×4 (10:09→21:32)
[2023-05-28 11:03] LABS: Basophils # (A) 0.06 X 10*3/uL (0.00-0.10); Basophils % (A) 0.9 %; Eosinophils # (A) 0.18 X 10*3/uL (0.04-0.35); Eosinophils % (A) 2.6 %; HCT 30.4 % (39.6-50.0); HGB 10.1 g/dL (13.0-17.0); Lymphocytes % (A) 11.6 %; MCH 30.3 pg (27.0-32.0); MCHC 33.2 g/dL (32.0-37.0); MCV 91.3 FL (80.0-97.0); Mean Platelet Volume 12.5 FL (9.5-12.2); Monocytes # (A) 1.21 X 10*3/uL (0.20-1.00); Monocytes % (A) 17.6 %; NRBC Per 100 WBC 0 X 10*3/uL (0.00-0.01); Platelet Count 146 X 10*3/uL (140-440); RBC 3.33 X 10*6/uL (4.40-5.60); RDW 13.5 % (11.5-14.5); WBC 6.87 X 10*3/uL (4.50-10.00)
[2023-05-28 11:24] LABS: ALT 25 U/L (10-49); AST 40 U/L (14-35); Albumin 3.4 g/dL (3.8-4.9); Albumin/Globulin Ratio 1.42 Ratio (1.60-3.17); Alkaline Phosphatase 95 U/L (41-126); BUN/Creat Ratio 28.14 Ratio (12.00-20.00); Blood Urea Nitrogen 59.1 mg/dL (9.0-27.0); Calcium 8.3 mg/dL (8.7-10.3); Carbon Dioxide 24.9 mmol/L (21.6-31.8); Chloride 94 mmol/L (96-109); Globulin 2.4 g/dL (1.6-3.3); Glucose 190 mg/dL (70-110); Sodium 132 mmol/L (135-145); Total Bilirubin 0.5 mg/dL (0.3-1.2); Total Protein 5.8 g/dL (6.2-8.2)
[2023-05-28 11:40] LABS: Glucose,Whole Blood 259 mg/dL (70-110)
[2023-05-28 12:26] LABS: Free Kappa Lt Chain Qnt, Serum 9.07 mg/dL (0.33-1.94); Free Lambda Lt Chain Qnt, Seru 4.95 mg/dL (0.57-2.63)
[2023-05-28] MEDS: SODIUM FERRIC GLUCONAT-SUCROSE 125 MG in SODIUM CHLORIDE 0.9% 100 ML IVPB SCH (13:27)
[2023-05-28] MEDS: FOLIC ACID 1 MG TAB PO SCH (13:41)
--- NOTE | 2023-05-28 13:52 | P.PN ---
Subjective Progress Note Date: 05/28/23 Heart failure The patient is a 63-year-old gentleman with extensive cardiac and medical history including coronary artery disease with a prior stenting of the RCA and also cardiomyopathy with an ejection fraction between 20-25% and pulmonary hypertension as well as systemic hypertension and dyslipidemia and hepatitis C and history of smoking and drinking alcohol with a he was just seen by our service recently with heart failure and he underwent an echo and revealed cardiomyopathy as described above. He presented back to the hospital was progressive exertional dyspnea started 3 days ago associated with progressive bilateral lower extremity edema. No discomfort or pain in the chest. No dizziness or lightheadedness and no feeling of heart racing or fluttering and no change in his weight. Workup was performed including an EKG and that showed sinus mechanism was no significant ST or T-wave abnormalities but low voltage QRS and also NT proBNP came to be severely elevated at 26,000. Troponin came in to be mildly elevated but seems to be flat across the board and the patient did not have any symptoms of chest pain or chest discomfort concerning for angina and the EKG did not show any ischemic changes. The patient clearly is in overt congestive heart failure. The chest x-ray showed bilateral pleural effusion. Examination is remarkable for diminished breathing sounds bilaterally and b ilateral rhonchi and bilateral lower extremity is edema with a regular rate and rhythm and systolic murmur. 05/22/2023 The patient was seen and evaluated this morning. He still short of breath. He still have bilateral lower extremities edema. He still on oxygen. I would advise continue the current dose of Lasix IV. The creatinine is slightly worse. We'll continue monitor the kidney function as well as the electrolytes. He reports no pain in the chest and no dizziness or lightheadedness and no feeling of heart racing or fluttering. We'll consider at this point medical treatment for the mildly abnormal troponin. The examination is remarkable for severe bilateral lower extremity is edema was diminished breathing sounds bilaterally and irregular rhythm with a systolic murmur at the right and left upper sternal border 05/23/2023 The patient was seen and evaluated this morning. He still hypervolemic with severe bilateral lower extremity is edema and skin changes. He still short of breath. No blood work as of this morning. I am going to obtain a CBC and BMP. Meanwhile continue the current medical regimen including the current dose of Lasix IV. The examination is unremarkable for a systolic murmur and severe bilateral lower extremity is edema and diminished breathing sounds bilaterally. 05/24/2023 The patient was seen and evaluated this morning. He continues to have shortness of breath and bilateral lower extremity is edema. The creatinine is a slightly worse than yesterday. He continues to be on Lasix IV. The examination is remarkable for severe bilateral lower extremity is edema and diminished breathing sounds bilaterally. 05/25/2023 The patient was seen and evaluated this morning. Now he is experiencing bilateral lower extremity is discomfort in both thigh worse on the left than the right. Beside that he still have severe bilateral lower extremity is edema. He continues to be on Lasix IV. No blood work as of today. I'm going to obtain venous duplex study to rule out DVT and also continue the current dose of Lasix IV and also obtain BMP today. 05/26 Venous Doppler study revealed no DVT. Patient has been maintained on IV Lasix 40 mg every 12 hours. Repeat blood work reveals WBC 3.8, hemoglobin 8.5, platelet count 111. Electrolytes are within normal limits. Creatinine 2.2 and BUN 54. Blood sugar 210. Patient states that he has been urinating quite a bit but continues to have lower extremity edema. He thinks he has less edema in his belly. 05/27 Patient is seen in follow-up. He states his breathing is better with nebulizer treatments. He continues to have lower extremity edema. Yesterday IV Lasix was changed to IV Bumex, hydralazine and Zaroxolyn were ordered. Repeat blood work reveals sodium 134, potassium 4.7, BUN 56 creatinine 2.0. 05/28 Patient states his breathing is all right. He continues to have lower extremity edema and mild weeping of the lower extremities. Patient has refused to maintain Margarito wraps and is always seen with legs in a dependent position. Patient does state that he is elevating them all the time but this has not been noted. Repeat labs: Na 132, K 5.0, BUN 59 and Cr 2.1. Oncology on for pancytopenia. Physical Examination Gen: This is a 63-year-old male sitting on the edge of his bed, legs are in a dependent position. HEENT: Head is atraumatic, normocephalic. Pupils equal, round. Sclerae is anicteric. LUNGS: Diminished breath sounds bilaterally. No intercostal retractions. HEART: Regular rate and rhythm. No murmur. EXTREMITIES: 2+ pedal edema with serous drainage. No calf tenderness. NEUROLOGICAL: Patient is awake, alert and oriented x3. Assessment Acute Heart failure secondary to heart failure with reduced ejection fraction Severe cardiomyopathy CAD with prior stenting of the RCA Pulmonary hypertension Noncompliance with medications Multiple comorbid conditions including hepatitis C and history of drinking alcohol and smoking Pancytopenia Plan Continue patient on Bumex 2 mg IV every 12 hours Continue patient on hydralazine 10 mg 3 times daily to decrease afterload Continue patient on Zaroxolyn 5 mg daily Continue other cardiac medications as well Monitor the kidney function and electrolytes Consider coronary angiogram down the line Follow-up with the patient Nurse practitioner note has been reviewed, I agree with the documented findings and plan of care. Patient was seen and examined. Objective - Vital Signs Vital signs: Vital Signs Temp 98.8 F 05/28/23 07:27 Pulse 91 05/28/23 07:27 Resp 17 05/28/23 07:27 BP 124/67 05/28/23 07:27 Pulse Ox 94 L 05/28/23 07:27 FiO2 Intake & Output 05/27/23 05/28/23 05/28/23 18:59 06:59 18:59 Intake Total 1832 Output Total 1200 500 Balance 632 -500 Weight 81.193 kg Intake: Oral 540 Blood Product 1292 Output: Urine 1200 500 Other: Voiding Method Urinal - Labs CBC & Chem 7: 05/28/23 07:30 05/28/23 07:30 Labs: Abnormal Lab Results - Last 24 Hours (Table) 05/27/23 05/27/23 05/27/23 Range/Units 05:45 05:45 10:38 RBC 3.18 L (4.40-5.60) X 10*6/uL Hgb 9.6 L (13.0-17.0) g/dL Hct 29.3 L (39.6-50.0) % Plt Count 135 L (140-440) X 10*3/uL Lymphocytes # 0.56 L (0.90-5.00) X 10*3/uL Sodium 134 L (135-145) mmol/L BUN 56.9 H (9.0-27.0) mg/dL Creatinine 2.0 H (0.6-1.5) mg/dL Est GFR (CKD-EPI) 37 L (>=60) BUN/Creatinine Ratio 28.45 H (12.00-20.00) Ratio Glucose 194 H (70-110) mg/dL POC Glucose (mg/dL) 216 H (70-110) mg/dL Calcium 8.3 L (8.7-10.3) mg/dL Iron (65-175) UG/DL % Saturation (15.00-50.00) Total Protein 5.6 L (6.2-8.2) g/dL Total Protein (PEP) (6.2-8.2) g/dL Albumin 3.4 L (3.8-4.9) g/dL Albumin (PEP) (3.8-4.9) g/dL Albumin/Globulin Ratio 1.55 L (1.60-3.17) Ratio Folate (4.40-31.00) ng/mL IgG (700.0-1600.0) mg/dL Rheumatoid Factor (0-15) IU/mL 05/27/23 05/27/23 05/27/23 Range/Units 16:35 18:41 18:41 RBC (4.40-5.60) X 10*6/uL Hgb (13.0-17.0) g/dL Hct (39.6-50.0) % Plt Count (140-440) X 10*3/uL Lymphocytes # (0.90-5.00) X 10*3/uL Sodium (135-145) mmol/L BUN (9.0-27.0) mg/dL Creatinine (0.6-1.5) mg/dL Est GFR (CKD-EPI) (>=60) BUN/Creatinine Ratio (12.00-20.00) Ratio Glucose (70-110) mg/dL POC Glucose (mg/dL) 175 H (70-110) mg/dL Calcium (8.7-10.3) mg/dL Iron 24 L (65-175) UG/DL % Saturation 6.88 L (15.00-50.00) Total Protein (6.2-8.2) g/dL Total Protein (PEP) (6.2-8.2) g/dL Albumin (3.8-4.9) g/dL Albumin (PEP) (3.8-4.9) g/dL Albumin/Globulin Ratio (1.60-3.17) Ratio Folate 4.00 L (4.40-31.00) ng/mL IgG (700.0-1600.0) mg/dL Rheumatoid Factor 21 H (0-15) IU/mL 05/27/23 05/27/23 05/28/23 Range/Units 18:41 20:20 05:18 RBC (4.40-5.60) X 10*6/uL Hgb (13.0-17.0) g/dL Hct (39.6-50.0) % Plt Count (140-440) X 10*3/uL Lymphocytes # (0.90-5.00) X 10*3/uL Sodium (135-145) mmol/L BUN (9.0-27.0) mg/dL Creatinine (0.6-1.5) mg/dL Est GFR (CKD-EPI) (>=60) BUN/Creatinine Ratio (12.00-20.00) Ratio Glucose (70-110) mg/dL POC Glucose (mg/dL) 195 H 159 H (70-110) mg/dL Calcium (8.7-10.3) mg/dL Iron (65-175) UG/DL % Saturation (15.00-50.00) Total Protein (6.2-8.2) g/dL Total Protein (PEP) 5.6 L (6.2-8.2) g/dL Albumin (3.8-4.9) g/dL Albumin (PEP) 3.5 L (3.8-4.9) g/dL Albumin/Globulin Ratio (1.60-3.17) Ratio Folate (4.40-31.00) ng/mL IgG 611.0 L (700.0-1600.0) mg/dL Rheumatoid Factor (0-15) IU/mL
[2023-05-28 16:46] LABS: Gamma Globulin 0.63 g/dL (0.70-1.50)
[2023-05-28] MEDS: SODIUM CHLORIDE 0.9% 1,000 ML IV SCH (19:29)
--- NOTE | 2023-05-28 22:04 | PN ---
PROGRESS NOTE SUBJECTIVE: A 63-year-old white male. His rash is improving. Possibly, he had a drug rash secondary to Lasix. He was treated for possible scabies also, which is improved. He is on calamine lotion for his arms and legs for itching, Atarax for itching. He has severe swelling in his legs, arms, CHF, COPD. He was not sent home with a nebulizer last time he was in the hospital. He was not set up with oxygen at home, which is why he came back to the hospital with fluid overload. OBJECTIVE: CARDIOVASCULAR: S1, S2. LUNGS: Scattered rhonchi and wheeze. HEMATOLOGY: 2 to 3+ edema. PSYCH: Fair mood and affect. NEUROLOGIC: Alert and oriented x3. VITAL SIGNS: Blood pressure 120s to 130s over 50 to 60s, O2 of 94% to 96%, temp 98.2, pulse is 80s to 90s, respiratory rate 16 to 18. LUNGS: Scattered rhonchi and wheeze. CARDIOVASCULAR: S1, S2. SKIN: Redness, excoriations throughout his skin. EXTREMITIES: Healing wounds over his arms and his legs. He has severe redness and swelling to his lower legs. IMPRESSION: Prognosis extremely guarded. Continue with IV Bumex and treatment for COPD. Needs a home nebulizer and home oxygen will be set up. MMODL / IJN: [id number] /
[2023-05-28] MEDS: ATORVASTATIN 40 MG TAB PO SCH (22:05)
[2023-05-29] MEDS: BUMETANIDE 0.25 MG/ML 10 ML VIAL IV SCH ×2 (01:12→14:51)
[2023-05-29] MEDS: MORPHINE SULFATE 4 MG/ML SYRINGE IVP PRN ×4 (02:33→20:18)
--- NOTE | 2023-05-29 08:23 | CDI ---
Documentation Clarification Form Date: 05/29/2023 08:03:00 AM From: Angeles Pina RN, CCDS Admit Date: 05/20/2023 06:59:00 PM Patient Name: Jacobo Hall Visit Number: [id number] Discharge Date: ATTENTION: The Clinical Documentation Specialists (CDI) and [facility] Coding Staff appreciate your assistance in clarifying documentation. Please respond to the clarification below the line at the bottom and electronically sign. The CDI & [facility] Coding staff will review the response and follow-up if needed. Please note: Queries are made part of the Legal Health Record. If you have any questions, please contact the author of this message via ITS. Dr. Eric Loyola Conflicting documentation has been found in the medical record. As attending physician, please provide clarification. 05/27 Cardiology progress note: Acute heart failure secondary to heart failure with reduced ejection fraction 05/25 Attending progress note: Diastolic congestive heart failure exacerbation. Echocardiogram (Last reported 04/18/23) Left ventricular ejection fraction is estimated at 20-25% Severe LV dysfunction. Moderate to severe pulmonary hypertension. Current every day smoker History/Risk Factors: Coronary Artery Disease (CAD), Heart Failure, COPD, CVA/TIA, Diabetes Mellitus, Eye Disorder, Hyperlipidemia, Hypertension, Liver disease, Renal disease Clinical Indicators: 63-year-old male presents emergency Department with chief complaint of dyspnea. CXR: Correlate for recurrent CHF with pulmonary vascular congestion. Small to moderate left and small right pleural effusion with adjacent atelectasis and or consolidation. 05/20 VS: 164 86 20 98.4 97% RA BNP 60907 Treatment: Ceramist/Telemetry ASA 81 MG PO DAILY Lasix 40 MG IV Once 05/20 Lasix 40 MG IV Q 12 05/21-05/23 Toprol Xl 25 MG PO Daily 05/22-05/23 Aldactone 25 MG PO Daily 05/22-05/23 Please clarify which diagnosis is most appropriate: [ ] Acute heart failure secondary to heart failure with reduced ejection fraction Echo 20-25% [ ] Diastolic congestive heart failure exacerbation. [ ] Other (please specify) [ ] Unable to determine (Template Last Revised: August 2020) MTDD
[2023-05-29] MEDS: SYMBICORT 80-4.5 MCG INHALER INHALATION SCH ×2 (08:35→20:50)
[2023-05-29] MEDS: IPRATROPIUM-ALBUTEROL 3 ML NEB INHALATION SCH ×4 (08:35→20:51)
[2023-05-29] MEDS: PANTOPRAZOLE 40 MG TABLET PO SCH ×2 (08:38→16:48)
[2023-05-29] MEDS: ISOSORBIDE DINITRATE 20 MG TAB PO SCH ×3 (08:38→21:25)
[2023-05-29] MEDS: SPIRONOLACTONE 25 MG TAB PO SCH (08:38)
[2023-05-29] MEDS: ASPIRIN 81 MG PO SCH (08:38)
[2023-05-29] MEDS: METOPROLOL SUCCINATE (ER) 25 MG TAB.ER.24H PO SCH (08:38)
[2023-05-29] MEDS: hydrALAZINE HCL 10 MG TAB PO SCH ×3 (08:38→21:25)
[2023-05-29] MEDS: HYDROcodone/APAP 10-325MG 1 EACH TAB PO SCH ×4 (08:38→21:25)
[2023-05-29] MEDS: FOLIC ACID 1 MG TAB PO SCH (08:38)
[2023-05-29] MEDS: DAPAGLIFLOZIN PROPANEDIOL 10 MG TABLET PO SCH (08:39)
[2023-05-29] MEDS: metOLazone 5 MG TAB PO SCH (08:39)
[2023-05-29] MEDS: SODIUM FERRIC GLUCONAT-SUCROSE 125 MG in SODIUM CHLORIDE 0.9% 100 ML IVPB SCH ×3 (08:45→16:47)
[2023-05-29 11:18] LABS: Basophils # (A) 0.04 X 10*3/uL (0.00-0.10); Basophils % (A) 0.8 %; Eosinophils # (A) 0.23 X 10*3/uL (0.04-0.35); Eosinophils % (A) 4.5 %; HCT 26.5 % (39.6-50.0); HGB 8.8 g/dL (13.0-17.0); Lymphocytes # (A) 0.53 X 10*3/uL (0.90-5.00); Lymphocytes % (A) 10.3 %; MCH 29.3 pg (27.0-32.0); MCHC 33.2 g/dL (32.0-37.0); MCV 88.3 FL (80.0-97.0); Mean Platelet Volume 11.9 FL (9.5-12.2); Monocytes # (A) 0.93 X 10*3/uL (0.20-1.00); Monocytes % (A) 18.1 %; NRBC Per 100 WBC 0 X 10*3/uL (0.00-0.01); Neutrophils % (A) 66.1 %; Platelet Count 132 X 10*3/uL (140-440); RDW 13.3 % (11.5-14.5); WBC 5.14 X 10*3/uL (4.50-10.00)
[2023-05-29 11:33] LABS: ALT 23 U/L (10-49); AST 29 U/L (14-35); Albumin 3.1 g/dL (3.8-4.9); Albumin/Globulin Ratio 1.48 Ratio (1.60-3.17); Alkaline Phosphatase 80 U/L (41-126); BUN/Creat Ratio 29.86 Ratio (12.00-20.00); Blood Urea Nitrogen 62.7 mg/dL (9.0-27.0); Calcium 8.1 mg/dL (8.7-10.3); Carbon Dioxide 28.2 mmol/L (21.6-31.8); Chloride 92 mmol/L (96-109); Globulin 2.1 g/dL (1.6-3.3); Glucose 231 mg/dL (70-110); Potassium 4.3 mmol/L (3.5-5.5); Sodium 131 mmol/L (135-145); Total Bilirubin 0.4 mg/dL (0.3-1.2); Total Protein 5.2 g/dL (6.2-8.2)
--- NOTE | 2023-05-29 12:27 | P.PN ---
Subjective Progress Note Date: 05/29/23 Heart failure The patient is a 63-year-old gentleman with extensive cardiac and medical history including coronary artery disease with a prior stenting of the RCA and also cardiomyopathy with an ejection fraction between 20-25% and pulmonary hypertension as well as systemic hypertension and dyslipidemia and hepatitis C and history of smoking and drinking alcohol with a he was just seen by our service recently with heart failure and he underwent an echo and revealed cardiomyopathy as described above. He presented back to the hospital was progressive exertional dyspnea started 3 days ago associated with progressive bilateral lower extremity edema. No discomfort or pain in the chest. No dizziness or lightheadedness and no feeling of heart racing or fluttering and no change in his weight. Workup was performed including an EKG and that showed sinus mechanism was no significant ST or T-wave abnormalities but low voltage QRS and also NT proBNP came to be severely elevated at 26,000. Troponin came in to be mildly elevated but seems to be flat across the board and the patient did not have any symptoms of chest pain or chest discomfort concerning for angina and the EKG did not show any ischemic changes. The patient clearly is in overt congestive heart failure. The chest x-ray showed bilateral pleural effusion. Examination is remarkable for diminished breathing sounds bilaterally and b ilateral rhonchi and bilateral lower extremity is edema with a regular rate and rhythm and systolic murmur. 05/22/2023 The patient was seen and evaluated this morning. He still short of breath. He still have bilateral lower extremities edema. He still on oxygen. I would advise continue the current dose of Lasix IV. The creatinine is slightly worse. We'll continue monitor the kidney function as well as the electrolytes. He reports no pain in the chest and no dizziness or lightheadedness and no feeling of heart racing or fluttering. We'll consider at this point medical treatment for the mildly abnormal troponin. The examination is remarkable for severe bilateral lower extremity is edema was diminished breathing sounds bilaterally and irregular rhythm with a systolic murmur at the right and left upper sternal border 05/23/2023 The patient was seen and evaluated this morning. He still hypervolemic with severe bilateral lower extremity is edema and skin changes. He still short of breath. No blood work as of this morning. I am going to obtain a CBC and BMP. Meanwhile continue the current medical regimen including the current dose of Lasix IV. The examination is unremarkable for a systolic murmur and severe bilateral lower extremity is edema and diminished breathing sounds bilaterally. 05/24/2023 The patient was seen and evaluated this morning. He continues to have shortness of breath and bilateral lower extremity is edema. The creatinine is a slightly worse than yesterday. He continues to be on Lasix IV. The examination is remarkable for severe bilateral lower extremity is edema and diminished breathing sounds bilaterally. 05/25/2023 The patient was seen and evaluated this morning. Now he is experiencing bilateral lower extremity is discomfort in both thigh worse on the left than the right. Beside that he still have severe bilateral lower extremity is edema. He continues to be on Lasix IV. No blood work as of today. I'm going to obtain venous duplex study to rule out DVT and also continue the current dose of Lasix IV and also obtain BMP today. 05/26 Venous Doppler study revealed no DVT. Patient has been maintained on IV Lasix 40 mg every 12 hours. Repeat blood work reveals WBC 3.8, hemoglobin 8.5, platelet count 111. Electrolytes are within normal limits. Creatinine 2.2 and BUN 54. Blood sugar 210. Patient states that he has been urinating quite a bit but continues to have lower extremity edema. He thinks he has less edema in his belly. 05/27 Patient is seen in follow-up. He states his breathing is better with nebulizer treatments. He continues to have lower extremity edema. Yesterday IV Lasix was changed to IV Bumex, hydralazine and Zaroxolyn were ordered. Repeat blood work reveals sodium 134, potassium 4.7, BUN 56 creatinine 2.0. 05/28 Patient states his breathing is all right. He continues to have lower extremity edema and mild weeping of the lower extremities. Patient has refused to maintain Margarito wraps and is always seen with legs in a dependent position. Patient does state that he is elevating them all the time but this has not been noted. Repeat labs: Na 132, K 5.0, BUN 59 and Cr 2.1. Oncology on for pancytopenia. 05/29 Patient continues on the same regime with Bumex, hydralazine, Zaroxolyn. Lung sounds are clear but he continues to have lower extremity edema. Legs again today are in a dependent position and patient refused to wear Margarito wraps. Heart rate is in the 80s, blood pressure 120/69, pulse ox 97% on 3 L. Hemoglobin 8.8. Potassium 4.3, sodium 131, BUN 62 creatinine 2.1. Physical Examination Gen: This is a 63-year-old male sitting on the edge of his bed, legs are in a dependent position. HEENT: Head is atraumatic, normocephalic. Pupils equal, round. Sclerae is anicteric. LUNGS: Diminished breath sounds bilaterally. No intercostal retractions. HEART: Regular rate and rhythm. No murmur. EXTREMITIES: 2+ pedal edema with serous drainage. No calf tenderness. NEUROLOGICAL: Patient is awake, alert and oriented x3. Assessment Acute Heart failure secondary to heart failure with reduced ejection fraction Severe cardiomyopathy CAD with prior stenting of the RCA Pulmonary hypertension Noncompliance with medications Multiple comorbid conditions including hepatitis C and history of drinking alcohol and smoking Pancytopenia Plan Continue patient on Bumex 2 mg IV every 12 hours Continue patient on hydralazine 10 mg 3 times daily to decrease afterload Continue patient on Zaroxolyn 5 mg daily Continue other cardiac medications as well Monitor the kidney function and electrolytes Consider coronary angiogram down the line Follow-up with the patient Nurse practitioner note has been reviewed, I agree with the documented findings and plan of care. Patient was seen and examined. Objective - Vital Signs Vital signs: Vital Signs Temp 98.6 F 05/29/23 07:33 Pulse 84 05/29/23 11:57 Resp 19 05/29/23 07:33 BP 120/69 05/29/23 07:33 Pulse Ox 97 05/29/23 07:33 FiO2 Intake & Output 05/28/23 05/29/23 05/29/23 18:59 06:59 18:59 Intake Total 100 Balance 100 Weight 81.2 kg Intake: Intake, IV Titration 100 Amount Sodium Ferric Gluconat- 100 Sucrose 125 mg In Sodium Chloride 0.9% 100 ml @ 100 mls/hr IVPB DAILY [facility] Rx#:[id number] Other: Voiding Method Urinal Urinal # Voids 6 - Labs CBC & Chem 7: 05/29/23 06:32 05/29/23 06:32 Labs: Abnormal Lab Results - Last 24 Hours (Table) 05/27/23 05/27/23 05/29/23 Range/Units 18:41 18:41 06:32 RBC 3.00 L (4.40-5.60) X 10*6/uL Hgb 8.8 L (13.0-17.0) g/dL Hct 26.5 L (39.6-50.0) % Plt Count 132 L (140-440) X 10*3/uL Lymphocytes # 0.53 L (0.90-5.00) X 10*3/uL Sodium (135-145) mmol/L Chloride (96-109) mmol/L BUN (9.0-27.0) mg/dL Creatinine (0.6-1.5) mg/dL Est GFR (CKD-EPI) (>=60) BUN/Creatinine Ratio (12.00-20.00) Ratio Glucose (70-110) mg/dL Calcium (8.7-10.3) mg/dL Total Protein (6.2-8.2) g/dL Albumin (3.8-4.9) g/dL Albumin/Globulin Ratio (1.60-3.17) Ratio [id number] 0.42 H (0.10-0.40) g/dL Gamma Globulins 0.63 L (0.70-1.50) g/dL Free [place] LC, Quant 9.07 H (0.33-1.94) mg/dL Free Lambda LC, Quant 4.95 H (0.57-2.63) mg/dL 05/29/23 Range/Units 06:32 RBC (4.40-5.60) X 10*6/uL Hgb (13.0-17.0) g/dL Hct (39.6-50.0) % Plt Count (140-440) X 10*3/uL Lymphocytes # (0.90-5.00) X 10*3/uL Sodium 131 L (135-145) mmol/L Chloride 92 L (96-109) mmol/L BUN 62.7 H (9.0-27.0) mg/dL Creatinine 2.1 H (0.6-1.5) mg/dL Est GFR (CKD-EPI) 34 L (>=60) BUN/Creatinine Ratio 29.86 H (12.00-20.00) Ratio Glucose 231 H (70-110) mg/dL Calcium 8.1 L (8.7-10.3) mg/dL Total Protein 5.2 L (6.2-8.2) g/dL Albumin 3.1 L (3.8-4.9) g/dL Albumin/Globulin Ratio 1.48 L (1.60-3.17) Ratio [id number] (0.10-0.40) g/dL Gamma Globulins (0.70-1.50) g/dL Free [place] LC, Quant (0.33-1.94) mg/dL Free Lambda LC, Quant (0.57-2.63) mg/dL
--- NOTE | 2023-05-29 13:22 | P.PN ---
Subjective Progress Note Date: 05/28/23 Principal diagnosis: Bilateral lower extremity venous stasis dermatitis Patient is a 63-year-old male with a past medical history significant for diabetes mellitus hypertension hyperlipidemia [place] coronary artery disease presented to the hospital for increasing shortness of breath or lower extremity swelling noticed having itching and scratching to the legs concerning for venous stasis dermatitis On today's evaluation that is 05/28/2023, the patient remains to be febrile, the patient is breathing comfortably on room air. The patient denies having any chest pain did have occasional dry cough, patient denies Abdominal pain, no nausea/vomiting or diarrhea, mentioned swelling to the neck has slightly decreased in intensity and not as itching Patient did have a white count of 6.87, creatinine is 2.1 Objective - Vital Signs Vital signs: Vital Signs Temp 98.8 F 05/28/23 07:27 Pulse 90 05/28/23 10:18 Resp 17 05/28/23 07:27 BP 124/67 05/28/23 07:27 Pulse Ox 96 05/28/23 10:11 FiO2 Intake & Output 05/27/23 05/28/23 05/28/23 18:59 06:59 18:59 Intake Total 1832 Output Total 1200 500 Balance 632 -500 Weight 81.193 kg Intake: Oral 540 Blood Product 1292 Output: Urine 1200 500 Other: Voiding Method Urinal - Exam GENERAL DESCRIPTION: Middle-age male up in bed in no distress RESPIRATORY SYSTEM: Unlabored breathing , decreased breath sound at the base HEART: S1 S2 regular rate and rhythm , ABDOMEN: Soft , no tenderness EXTREMITIES: Diffuse swelling to bilateral lower extremity with some scratch cleary no wound or drainage - Labs CBC & Chem 7: 05/29/23 06:32 05/29/23 06:32 Labs: Abnormal Lab Results - Last 24 Hours (Table) 05/27/23 05/27/23 05/27/23 Range/Units 16:35 18:41 18:41 RBC (4.40-5.60) X 10*6/uL Hgb (13.0-17.0) g/dL Hct (39.6-50.0) % MPV (9.5-12.2) FL Lymphocytes # (0.90-5.00) X 10*3/uL Monocytes # (0.20-1.00) X 10*3/uL Sodium (135-145) mmol/L Chloride (96-109) mmol/L Anion Gap (4.00-12.00) mmol/L BUN (9.0-27.0) mg/dL Creatinine (0.6-1.5) mg/dL Est GFR (CKD-EPI) (>=60) BUN/Creatinine Ratio (12.00-20.00) Ratio Glucose (70-110) mg/dL POC Glucose (mg/dL) 175 H (70-110) mg/dL Calcium (8.7-10.3) mg/dL Iron 24 L (65-175) UG/DL % Saturation 6.88 L (15.00-50.00) AST (14-35) U/L Total Protein (6.2-8.2) g/dL Total Protein (PEP) (6.2-8.2) g/dL Albumin (3.8-4.9) g/dL Albumin (PEP) (3.8-4.9) g/dL Albumin/Globulin Ratio (1.60-3.17) Ratio Folate 4.00 L (4.40-31.00) ng/mL IgG (700.0-1600.0) mg/dL Rheumatoid Factor 21 H (0-15) IU/mL Free Floydada LC, Quant (0.33-1.94) mg/dL Free Lambda LC, Quant (0.57-2.63) mg/dL 05/27/23 05/27/23 05/27/23 Range/Units 18:41 18:41 20:20 RBC (4.40-5.60) X 10*6/uL Hgb (13.0-17.0) g/dL Hct (39.6-50.0) % MPV (9.5-12.2) FL Lymphocytes # (0.90-5.00) X 10*3/uL Monocytes # (0.20-1.00) X 10*3/uL Sodium (135-145) mmol/L Chloride (96-109) mmol/L Anion Gap (4.00-12.00) mmol/L BUN (9.0-27.0) mg/dL Creatinine (0.6-1.5) mg/dL Est GFR (CKD-EPI) (>=60) BUN/Creatinine Ratio (12.00-20.00) Ratio Glucose (70-110) mg/dL POC Glucose (mg/dL) 195 H (70-110) mg/dL Calcium (8.7-10.3) mg/dL Iron (65-175) UG/DL % Saturation (15.00-50.00) AST (14-35) U/L Total Protein (6.2-8.2) g/dL Total Protein (PEP) 5.6 L (6.2-8.2) g/dL Albumin (3.8-4.9) g/dL Albumin (PEP) 3.5 L (3.8-4.9) g/dL Albumin/Globulin Ratio (1.60-3.17) Ratio Folate (4.40-31.00) ng/mL IgG 611.0 L (700.0-1600.0) mg/dL Rheumatoid Factor (0-15) IU/mL Free Floydada LC, Quant 9.07 H (0.33-1.94) mg/dL Free Lambda LC, Quant 4.95 H (0.57-2.63) mg/dL 05/28/23 05/28/23 05/28/23 Range/Units 05:18 07:30 07:30 RBC 3.33 L (4.40-5.60) X 10*6/uL Hgb 10.1 L (13.0-17.0) g/dL Hct 30.4 L (39.6-50.0) % MPV 12.5 H (9.5-12.2) FL Lymphocytes # 0.80 L (0.90-5.00) X 10*3/uL Monocytes # 1.21 H (0.20-1.00) X 10*3/uL Sodium 132 L (135-145) mmol/L Chloride 94 L (96-109) mmol/L Anion Gap 13.10 H (4.00-12.00) mmol/L BUN 59.1 H (9.0-27.0) mg/dL Creatinine 2.1 H (0.6-1.5) mg/dL Est GFR (CKD-EPI) 34 L (>=60) BUN/Creatinine Ratio 28.14 H (12.00-20.00) Ratio Glucose 190 H (70-110) mg/dL POC Glucose (mg/dL) 159 H (70-110) mg/dL Calcium 8.3 L (8.7-10.3) mg/dL Iron (65-175) UG/DL % Saturation (15.00-50.00) AST 40 H (14-35) U/L Total Protein 5.8 L (6.2-8.2) g/dL Total Protein (PEP) (6.2-8.2) g/dL Albumin 3.4 L (3.8-4.9) g/dL Albumin (PEP) (3.8-4.9) g/dL Albumin/Globulin Ratio 1.42 L (1.60-3.17) Ratio Folate (4.40-31.00) ng/mL IgG (700.0-1600.0) mg/dL Rheumatoid Factor (0-15) IU/mL Free Floydada LC, Quant (0.33-1.94) mg/dL Free Lambda LC, Quant (0.57-2.63) mg/dL 05/28/23 Range/Units 11:39 RBC (4.40-5.60) X 10*6/uL Hgb (13.0-17.0) g/dL Hct (39.6-50.0) % MPV (9.5-12.2) FL Lymphocytes # (0.90-5.00) X 10*3/uL Monocytes # (0.20-1.00) X 10*3/uL Sodium (135-145) mmol/L Chloride (96-109) mmol/L Anion Gap (4.00-12.00) mmol/L BUN (9.0-27.0) mg/dL Creatinine (0.6-1.5) mg/dL Est GFR (CKD-EPI) (>=60) BUN/Creatinine Ratio (12.00-20.00) Ratio Glucose (70-110) mg/dL POC Glucose (mg/dL) 259 H (70-110) mg/dL Calcium (8.7-10.3) mg/dL Iron (65-175) UG/DL % Saturation (15.00-50.00) AST (14-35) U/L Total Protein (6.2-8.2) g/dL Total Protein (PEP) (6.2-8.2) g/dL Albumin (3.8-4.9) g/dL Albumin (PEP) (3.8-4.9) g/dL Albumin/Globulin Ratio (1.60-3.17) Ratio Folate (4.40-31.00) ng/mL IgG (700.0-1600.0) mg/dL Rheumatoid Factor (0-15) IU/mL Free Floydada LC, Quant (0.33-1.94) mg/dL Free Lambda LC, Quant (0.57-2.63) mg/dL Assessment and Plan (1) Venous stasis dermatitis of both lower extremities Current Visit: Yes Status: Acute Code(s): I87.2 - VENOUS INSUFFICIENCY (CHRONIC) (PERIPHERAL) SNOMED Code(s): 81200262 Plan: 1patient in the hospital with increasing shortness of breath also increasing swelling lower extremity to have some diffuse swelling multiple scratch cleary and itching likely concerning for venous stasis dermatitis clinic suspicious low for cellulitis 2-patient to continue with calamine lotion to bilateral lower extremity followed by Margarito wrap to keep some of the swelling down 3-no need for systemic antibiotic therapy Dictation was produced using [employer] dictation software. please excuse any grammatical, word or spelling errors. Time with Patient: Less than 30
--- NOTE | 2023-05-29 13:24 | P.PN ---
Subjective Progress Note Date: 05/29/23 Principal diagnosis: Bilateral lower extremity venous stasis dermatitis Patient is a 63-year-old male with a past medical history significant for diabetes mellitus hypertension hyperlipidemia [place] coronary artery disease presented to the hospital for increasing shortness of breath or lower extremity swelling noticed having itching and scratching to the legs concerning for venous stasis dermatitis On today's evaluation that is 05/29/2023, the patient denies any fever or any chills, the patient is breathing comfortably on room air and denies any shortness of breath, the patient denies any chest pain, no cough or sputum production, patient denies nausea/vomiting /diarrhea and no abdominal pain, the patient bilateral lower extremity swelling and has slightly decreased in intensity , nursing staff mention he was refusing the Margarito wrap yesterday Patient did have a white count of 5.14, creatinine is 2.1 Objective - Vital Signs Vital signs: Vital Signs Temp 98.6 F 05/29/23 07:33 Pulse 84 05/29/23 11:57 Resp 19 05/29/23 07:33 BP 120/69 05/29/23 07:33 Pulse Ox 97 05/29/23 07:33 FiO2 Intake & Output 05/28/23 05/29/23 05/29/23 18:59 06:59 18:59 Intake Total 100 Balance 100 Weight 81.2 kg Intake: Intake, IV Titration 100 Amount Sodium Ferric Gluconat- 100 Sucrose 125 mg In Sodium Chloride 0.9% 100 ml @ 100 mls/hr IVPB DAILY [facility] Rx#:[id number] Other: Voiding Method Urinal Urinal # Voids 6 - Exam GENERAL DESCRIPTION: Middle-age male up in bed in no distress RESPIRATORY SYSTEM: Unlabored breathing , decreased breath sound at the base HEART: S1 S2 regular rate and rhythm , ABDOMEN: Soft , no tenderness EXTREMITIES: Diffuse swelling to bilateral lower extremity with some scratch cleary no wound or drainage - Labs CBC & Chem 7: 05/29/23 06:32 05/29/23 06:32 Labs: Abnormal Lab Results - Last 24 Hours (Table) 05/27/23 05/29/23 05/29/23 Range/Units 18:41 06:32 06:32 RBC 3.00 L (4.40-5.60) X 10*6/uL Hgb 8.8 L (13.0-17.0) g/dL Hct 26.5 L (39.6-50.0) % Plt Count 132 L (140-440) X 10*3/uL Lymphocytes # 0.53 L (0.90-5.00) X 10*3/uL Sodium 131 L (135-145) mmol/L Chloride 92 L (96-109) mmol/L BUN 62.7 H (9.0-27.0) mg/dL Creatinine 2.1 H (0.6-1.5) mg/dL Est GFR (CKD-EPI) 34 L (>=60) BUN/Creatinine Ratio 29.86 H (12.00-20.00) Ratio Glucose 231 H (70-110) mg/dL Calcium 8.1 L (8.7-10.3) mg/dL Total Protein 5.2 L (6.2-8.2) g/dL Albumin 3.1 L (3.8-4.9) g/dL Albumin/Globulin Ratio 1.48 L (1.60-3.17) Ratio [id number] 0.42 H (0.10-0.40) g/dL Gamma Globulins 0.63 L (0.70-1.50) g/dL Assessment and Plan (1) Venous stasis dermatitis of both lower extremities Current Visit: Yes Status: Acute Code(s): I87.2 - VENOUS INSUFFICIENCY (CHRONIC) (PERIPHERAL) SNOMED Code(s): 35340873 Plan: 1patient in the hospital with increasing shortness of breath also increasing swelling lower extremity to have some diffuse swelling multiple scratch cleary and itching likely concerning for venous stasis dermatitis clinic suspicious low for cellulitis 2-patient advised to continue with calamine lotion to bilateral lower extremity followed by Margarito wrap to keep some of the swelling down and advised not to refuse his compression dressing Dictation was produced using [employer] dictation software. please excuse any grammatical, word or spelling errors. Time with Patient: Less than 30
[2023-05-29] MEDS: CALAMINE/ZINC OXIDE LOTION 177 ML BTL TOPICAL SCH (14:36)
[2023-05-29] MEDS ORDERED: BUMETANIDE 1 MG TAB PO ONE (14:51)
[2023-05-29 16:44] LABS: Glucose,Whole Blood 265 mg/dL (70-110)
[2023-05-29] MEDS: SODIUM CHLORIDE 0.9% 1,000 ML IV SCH (18:13)
[2023-05-29 20:12] LABS: Glucose,Whole Blood 396 mg/dL (70-110)
[2023-05-29] MEDS: ATORVASTATIN 40 MG TAB PO SCH (21:25)
[2023-05-29] MEDS: INSULIN ASPART (NovoLOG) 100 UNIT/ML VIAL SQ SCH (21:25)
[2023-05-29] MEDS: hydrOXYzine HCL 25 MG TAB PO PRN (22:54)
[2023-05-30] MEDS: MORPHINE SULFATE 4 MG/ML SYRINGE IVP PRN ×6 (00:23→22:09)
[2023-05-30] MEDS: BUMETANIDE 0.25 MG/ML 10 ML VIAL IV SCH ×2 (01:58→08:50)
[2023-05-30] MEDS: INSULIN ASPART (NovoLOG) 100 UNIT/ML VIAL SQ SCH ×4 (06:55→20:33)
[2023-05-30] MEDS: IPRATROPIUM-ALBUTEROL 3 ML NEB INHALATION SCH ×4 (08:05→19:50)
[2023-05-30] MEDS: SYMBICORT 80-4.5 MCG INHALER INHALATION SCH ×2 (08:05→19:50)
[2023-05-30] MEDS: PANTOPRAZOLE 40 MG TABLET PO SCH ×2 (08:49→17:52)
[2023-05-30] MEDS: ASPIRIN 81 MG PO SCH (08:49)
[2023-05-30] MEDS: FOLIC ACID 1 MG TAB PO SCH (08:49)
[2023-05-30] MEDS: METOPROLOL SUCCINATE (ER) 25 MG TAB.ER.24H PO SCH (08:49)
[2023-05-30] MEDS: SPIRONOLACTONE 25 MG TAB PO SCH (08:49)
[2023-05-30] MEDS: hydrALAZINE HCL 10 MG TAB PO SCH ×3 (08:49→22:19)
[2023-05-30] MEDS: DAPAGLIFLOZIN PROPANEDIOL 10 MG TABLET PO SCH (08:51)
[2023-05-30] MEDS: ISOSORBIDE DINITRATE 20 MG TAB PO SCH ×3 (08:51→20:35)
[2023-05-30] MEDS: metOLazone 5 MG TAB PO SCH (08:51)
[2023-05-30] MEDS: CALAMINE/ZINC OXIDE LOTION 177 ML BTL TOPICAL SCH (08:52)
[2023-05-30] MEDS: HYDROcodone/APAP 10-325MG 1 EACH TAB PO SCH ×5 (08:52→20:34)
--- NOTE | 2023-05-30 09:29 | P.PN ---
Subjective Progress Note Date: 05/30/23 Heart failure The patient is a 63-year-old gentleman with extensive cardiac and medical history including coronary artery disease with a prior stenting of the RCA and also cardiomyopathy with an ejection fraction between 20-25% and pulmonary hypertension as well as systemic hypertension and dyslipidemia and hepatitis C and history of smoking and drinking alcohol with a he was just seen by our service recently with heart failure and he underwent an echo and revealed cardiomyopathy as described above. He presented back to the hospital was progressive exertional dyspnea started 3 days ago associated with progressive bilateral lower extremity edema. No discomfort or pain in the chest. No dizziness or lightheadedness and no feeling of heart racing or fluttering and no change in his weight. Workup was performed including an EKG and that showed sinus mechanism was no significant ST or T-wave abnormalities but low voltage QRS and also NT proBNP came to be severely elevated at 26,000. Troponin came in to be mildly elevated but seems to be flat across the board and the patient did not have any symptoms of chest pain or chest discomfort concerning for angina and the EKG did not show any ischemic changes. The patient clearly is in overt congestive heart failure. The chest x-ray showed bilateral pleural effusion. Examination is remarkable for diminished breathing sounds bilaterally and b ilateral rhonchi and bilateral lower extremity is edema with a regular rate and rhythm and systolic murmur. 05/22/2023 The patient was seen and evaluated this morning. He still short of breath. He still have bilateral lower extremities edema. He still on oxygen. I would advise continue the current dose of Lasix IV. The creatinine is slightly worse. We'll continue monitor the kidney function as well as the electrolytes. He reports no pain in the chest and no dizziness or lightheadedness and no feeling of heart racing or fluttering. We'll consider at this point medical treatment for the mildly abnormal troponin. The examination is remarkable for severe bilateral lower extremity is edema was diminished breathing sounds bilaterally and irregular rhythm with a systolic murmur at the right and left upper sternal border 05/23/2023 The patient was seen and evaluated this morning. He still hypervolemic with severe bilateral lower extremity is edema and skin changes. He still short of breath. No blood work as of this morning. I am going to obtain a CBC and BMP. Meanwhile continue the current medical regimen including the current dose of Lasix IV. The examination is unremarkable for a systolic murmur and severe bilateral lower extremity is edema and diminished breathing sounds bilaterally. 05/24/2023 The patient was seen and evaluated this morning. He continues to have shortness of breath and bilateral lower extremity is edema. The creatinine is a slightly worse than yesterday. He continues to be on Lasix IV. The examination is remarkable for severe bilateral lower extremity is edema and diminished breathing sounds bilaterally. 05/25/2023 The patient was seen and evaluated this morning. Now he is experiencing bilateral lower extremity is discomfort in both thigh worse on the left than the right. Beside that he still have severe bilateral lower extremity is edema. He continues to be on Lasix IV. No blood work as of today. I'm going to obtain venous duplex study to rule out DVT and also continue the current dose of Lasix IV and also obtain BMP today. 05/26 Venous Doppler study revealed no DVT. Patient has been maintained on IV Lasix 40 mg every 12 hours. Repeat blood work reveals WBC 3.8, hemoglobin 8.5, platelet count 111. Electrolytes are within normal limits. Creatinine 2.2 and BUN 54. Blood sugar 210. Patient states that he has been urinating quite a bit but continues to have lower extremity edema. He thinks he has less edema in his belly. 05/27 Patient is seen in follow-up. He states his breathing is better with nebulizer treatments. He continues to have lower extremity edema. Yesterday IV Lasix was changed to IV Bumex, hydralazine and Zaroxolyn were ordered. Repeat blood work reveals sodium 134, potassium 4.7, BUN 56 creatinine 2.0. 05/28 Patient states his breathing is all right. He continues to have lower extremity edema and mild weeping of the lower extremities. Patient has refused to maintain Margarito wraps and is always seen with legs in a dependent position. Patient does state that he is elevating them all the time but this has not been noted. Repeat labs: Na 132, K 5.0, BUN 59 and Cr 2.1. Oncology on for pancytopenia. 05/29 Patient continues on the same regime with Bumex, hydralazine, Zaroxolyn. Lung sounds are clear but he continues to have lower extremity edema. Legs again today are in a dependent position and patient refused to wear Margarito wraps. Heart rate is in the 80s, blood pressure 120/69, pulse ox 97% on 3 L. Hemoglobin 8.8. Potassium 4.3, sodium 131, BUN 62 creatinine 2.1. 05/30 Patient is seen today in follow-up. Yesterday afternoon, IV access was lost and patient received 1 dose of oral Bumex. Been established since then and he is back on the IV Bumex. Patient has been started on Ferrlecit by oncology. Patient again is seen with his legs in a dependent position, no Margarito wraps in place. He states he could not sleep last night. Otherwise no change in his lower extremity edema. Blood pressure 144/79, heart rate in the 80s and 90s, pulse ox 100% on room air, afebrile. Physical Examination Gen: This is a 63-year-old male sitting on the edge of his bed, legs are in a dependent position. HEENT: Head is atraumatic, normocephalic. Pupils equal, round. Sclerae is anicteric. LUNGS: Diminished breath sounds bilaterally. No intercostal retractions. HEART: Regular rate and rhythm. No murmur. EXTREMITIES: 2+ pedal edema with serous drainage. No calf tenderness. NEUROLOGICAL: Patient is awake, alert and oriented x3. Assessment Acute Heart failure secondary to heart failure with reduced ejection fraction Severe cardiomyopathy CAD with prior stenting of the RCA Pulmonary hypertension Noncompliance with medications Multiple comorbid conditions including hepatitis C and history of drinking alcohol and smoking Pancytopenia Plan Continue patient on Bumex 2 mg IV every 12 hours, Zaroxolyn 5 mg daily Continue patient on hydralazine 10 mg 3 times daily to decrease afterload Continue other cardiac medications as well Monitor the kidney function and electrolytes Consider coronary angiogram down the line Follow-up with the patient Nurse practitioner note has been reviewed, I agree with the documented findings and plan of care. Patient was seen and examined. Objective - Vital Signs Vital signs: Vital Signs Temp 98.8 F 05/30/23 00:41 Pulse 83 05/30/23 00:41 Resp 18 05/30/23 00:41 BP 107/69 05/30/23 00:41 Pulse Ox 94 L 05/30/23 00:41 FiO2 Intake & Output 05/29/23 05/30/23 05/30/23 18:59 06:59 18:59 Weight 81.2 kg Other: Voiding Method Urinal # Voids 6 4 # Bowel Movements 2 - Labs CBC & Chem 7: 05/29/23 06:32 05/29/23 06:32 Labs: Abnormal Lab Results - Last 24 Hours (Table) 05/27/23 05/29/23 05/29/23 Range/Units 18:41 06:32 06:32 RBC 3.00 L (4.40-5.60) X 10*6/uL Hgb 8.8 L (13.0-17.0) g/dL Hct 26.5 L (39.6-50.0) % Plt Count 132 L (140-440) X 10*3/uL Lymphocytes # 0.53 L (0.90-5.00) X 10*3/uL Sodium 131 L (135-145) mmol/L Chloride 92 L (96-109) mmol/L BUN 62.7 H (9.0-27.0) mg/dL Creatinine 2.1 H (0.6-1.5) mg/dL Est GFR (CKD-EPI) 34 L (>=60) BUN/Creatinine Ratio 29.86 H (12.00-20.00) Ratio Glucose 231 H (70-110) mg/dL POC Glucose (mg/dL) (70-110) mg/dL Calcium 8.1 L (8.7-10.3) mg/dL Total Protein 5.2 L (6.2-8.2) g/dL Albumin 3.1 L (3.8-4.9) g/dL Albumin/Globulin Ratio 1.48 L (1.60-3.17) Ratio Copper 1489 H (665-1480) ug/L 05/29/23 05/29/23 Range/Units 16:43 20:10 RBC (4.40-5.60) X 10*6/uL Hgb (13.0-17.0) g/dL Hct (39.6-50.0) % Plt Count (140-440) X 10*3/uL Lymphocytes # (0.90-5.00) X 10*3/uL Sodium (135-145) mmol/L Chloride (96-109) mmol/L BUN (9.0-27.0) mg/dL Creatinine (0.6-1.5) mg/dL Est GFR (CKD-EPI) (>=60) BUN/Creatinine Ratio (12.00-20.00) Ratio Glucose (70-110) mg/dL POC Glucose (mg/dL) 265 H 396 H (70-110) mg/dL Calcium (8.7-10.3) mg/dL Total Protein (6.2-8.2) g/dL Albumin (3.8-4.9) g/dL Albumin/Globulin Ratio (1.60-3.17) Ratio Copper (665-1480) ug/L
[2023-05-30 10:31] LABS: Methylmalonic Acid 0.52 umol/L (<0.40)
[2023-05-30] MEDS: SODIUM FERRIC GLUCONAT-SUCROSE 125 MG in SODIUM CHLORIDE 0.9% 100 ML IVPB SCH (10:54)
[2023-05-30 11:49] LABS: Glucose,Whole Blood 339 mg/dL (70-110)
--- NOTE | 2023-05-30 15:16 | P.GSCN ---
History of Present Illness Consult date: 05/30/23 History of present illness: CHIEF COMPLAINT: Shortness of breath Reason for consult: Iron deficiency anemia rule out GI bleed HISTORY OF PRESENT ILLNESS: This is a 63-year-old male who presented to the hospital with worsening shortness of breath. He is found to have evidence of an acute CHF exacerbation and is currently on IV Bumex. Patient has cardiomyopathy with reduced EF. Patient has been anemic. And having pancytopenia. I evaluated by hematology. They requested a consult to rule out GI bleed. Patient is evidence of iron deficiency anemia. Patient reports no blood in his stools or black stools. He does have some lower abdominal pain he reports is chronic pain. His last colonoscopy was about 20 years ago at that time he had polyps removed. He did not undergo the repeat colonoscopy was recommended at 3 years. He has never had EGD. He has a history of alcohol abuse and drug abuse apparently quit about 20 years ago. Most of history was obtained from patient's chart. Patient is a poor historian. PAST MEDICAL HISTORY: See below PAST SURGICAL HISTORY: See below MEDICATIONS: See below ALLERGIES: See below SOCIAL HISTORY: No illicit drug use. REVIEW OF SYSTEMS: CONSTITUTIONAL: Denies fever or chills. HEENT: Denies blurred vision, vision changes, or eye pain. Denies hemoptysis CARDIOVASCULAR: Denies chest pain or pressure. RESPIRATORY: No shortness of breath. GASTROINTESTINAL: See HPI for pertinent findings HEMATOLOGIC: Denies bleeding disorders. GENITOURINARY: Denies any blood in urine or increased urinary frequency. SKIN: Denies pruitis. Denies rash. PHYSICAL EXAM: VITAL SIGNS: Reviewed GENERAL: Well-developed in no acute distress. HEENT: No sclera icterus. Extraocular movements grossly intact. Moist buccal mucosa. Head is atraumatic, normocephalic. No nasal drainage. ABDOMEN: Soft. Nondistended. Mild tenderness palpation lower abdomen NEUROLOGIC: Alert and oriented. Cranial nerves II through XII grossly intact. Skin: open Sores noted all over skin. Lower extremity edema and cellulitis LABORATORY DATA: WBC 5.14 Hgb 8.8 platelets 132 Sodium 131 potassium 4.3 creatinine 2.1 Iron level low 24 IMAGING: ASSESSMENT: 1. Anemia with iron deficiency 2. Pancytopenia 3. Acute heart failure with reduced EF 4. Severe cardiomyopathy 5. History of coronary artery disease with prior stenting 6. History of pulmonary hypertension 7. History of hepatitis C 8. History of alcohol use and drug abuse 9. History of colon polyps PLAN: -Recommend EGD and colonoscopy when patient is medically stable -Continue to monitor hemoglobin -Continue to monitor for any signs or symptoms of bleeding -Check stool for occult blood Thank you for this consultation Physician Siding Mechanic note has been reviewed by physician. Signing provider agrees with the documented findings, assessment, and plan of care. Past Medical History Past Medical History: Coronary Artery Disease (CAD), Heart Failure, COPD, CVA/TIA, Diabetes Mellitus, Eye Disorder, Hyperlipidemia, Hypertension, Liver Disease, Myocardial Infarction (RI), Renal Disease Additional Past Medical History / Comment(s): Iischemic cardiomyopathy, PVCs, CVA 2019 with L sided weakness, chronic low back pain d/t vertebral fractures years ago as well as cervical pinched nerves, DDD, IDDM type II, neuropathy bilateral hands/legs and feet, pt states he can barely see with L eye and R eye vision is not very good/he is unsure why but believes it is d/t diabetes, liver disease/hepatitis C/ETOH abuse, recurrent ascities/paracentesis, recent R hip fracture d/t fall/recurrent falls. Last Myocardial Infarction Date:: October 2018 History of Any Multi-Drug Resistant Organisms: MRSA Year Discovered:: 11/23/20 MDRO Source:: FOOT MRSA Past Surgical History: Cholecystectomy, Heart Catheterization, Heart Catheterization With Stent, Tonsillectomy Additional Past Surgical History / Comment(s): R heel I&D, colonoscopy. Past Anesthesia/Blood Transfusion Reactions: No Reported Reaction Date of Last Stent Placement:: 2011 Past Psychological History: Anxiety, Bipolar, Depression Additional Psychological History / Comment(s): Pt states he lives with his brother. Pt ambulates with a walker. He uses rides thru insurance. Case management/social workers are involved in pt's care Smoking Status: Current every day smoker Past Alcohol Use History: None Reported Additional Past Alcohol Use History / Comment(s): Pt started smoking in 1976. Pt states he has hx of heavy alcohol use but states none for years Past Drug Use History: Marijuana Additional Drug Use History / Comment(s): Marijuana occasionally. pt stated he had ICE on 02/24/2020 - Past Family History Mother Family Medical History: Cancer Father Family Medical History: Coronary Artery Disease (CAD), Diabetes Mellitus, Hypertension Medications and Allergies Home Medications Medication Instructions Recorded Confirmed Type Aspirin 81 mg PO DAILY 90 Days #90 tab 04/22/23 05/20/23 Rx Atorvastatin [Lipitor] 40 mg PO HS 90 Days #90 tab 04/22/23 05/20/23 Rx Dapagliflozin Propanediol [Farxiga] 10 mg PO DAILY 30 Days #30 tab 04/22/23 05/20/23 Rx Isosorbide Dinitrate [Isordil] 20 mg PO TID 90 Days #180 tab 04/22/23 05/20/23 Rx Metoprolol Succinate (ER) [Toprol 25 mg PO DAILY 90 Days #90 tab 04/22/23 05/20/23 Rx XL] Pantoprazole [Protonix] 40 mg PO AC-BID 90 Days #180 tab 04/22/23 05/20/23 Rx Spironolactone [Aldactone] 25 mg PO DAILY 90 Days #90 tab 04/22/23 05/20/23 Rx Albuterol Sulfate [Ventolin HFA] 1 - 2 puff INHALATION RT-Q6H PRN 05/20/23 05/20/23 History Fluticasone Propion/Salmeterol 1 puff INHALATION RT-BID 05/20/23 05/20/23 History [Advair 250-50 Diskus] HYDROcodone/APAP 10-325MG [Markesan 1 tab PO QID 05/20/23 05/20/23 History 10-325] Ipratropium-Albuterol Nebulize 3 ml INHALATION DIRECTED 05/20/23 05/20/23 History [Duoneb 0.5 mg-3 mg/3 ml Soln] Tiotropium 2.5 Mcg/Puff [Spiriva 2 puff INHALATION RT-DAILY 05/20/23 05/20/23 History Respimat 2.5 Mcg] Allergies Allergy/AdvReac Type Severity Reaction Status Date / Time Penicillins Allergy Unknown Verified 05/20/23 19:54 Childhood metformin AdvReac Mild Nausea Verified 05/20/23 19:54 Surgical - Exam Vital Signs Temp Pulse Resp BP Pulse Ox 98.4 F 86 20 164/92 97 05/20/23 16:28 05/20/23 16:28 05/20/23 16:28 05/20/23 16:28 05/20/23 16:28 Results - Labs 05/29/23 06:32 05/29/23 06:32 Abnormal Lab Results - Last 24 Hours (Table) 05/27/23 05/29/23 05/29/23 Range/Units 18:41 16:43 20:10 POC Glucose (mg/dL) 265 H 396 H (70-110) mg/dL Methylmalonic Acid 0.52 H (<0.40) umol/L Copper 1489 H (665-1480) ug/L 05/30/23 Range/Units 11:47 POC Glucose (mg/dL) 339 H (70-110) mg/dL Methylmalonic Acid (<0.40) umol/L Copper (665-1480) ug/L
--- NOTE | 2023-05-30 16:22 | P.PN ---
Subjective Progress Note Date: 05/30/23 Principal diagnosis: Bilateral lower extremity venous stasis dermatitis Patient is a 63-year-old male with a past medical history significant for diabetes mellitus hypertension hyperlipidemia DE coronary artery disease presented to the hospital for increasing shortness of breath or lower extremity swelling noticed having itching and scratching to the legs concerning for venous stasis dermatitis On today's evaluation that is 05/30/2023 the patient remains to be afebrile, the patient is breathing comfortably on room air and no need for oxygen. The patient denies shortness of breath denies any chest pain or cough, patient denies nausea/vomiting or diarrhea and no abdominal pain. The patient is still complaining of bilateral lower extremity swelling and an itching Patient did have a white count of 5.14, creatinine is 2.1 as of yesterday no lab draw today Objective - Vital Signs Vital signs: Vital Signs Temp 98.2 F 05/30/23 08:32 Pulse 80 05/30/23 11:18 Resp 18 05/30/23 08:32 BP 144/79 05/30/23 08:32 Pulse Ox 100 05/30/23 08:32 FiO2 Intake & Output 05/29/23 05/30/23 05/30/23 18:59 06:59 18:59 Weight 81.2 kg Other: Voiding Method Urinal # Voids 6 4 # Bowel Movements 2 - Exam GENERAL DESCRIPTION: Middle-age male up in bed in no distress RESPIRATORY SYSTEM: Unlabored breathing , decreased breath sound at the base HEART: S1 S2 regular rate and rhythm , ABDOMEN: Soft , no tenderness EXTREMITIES: Diffuse swelling to bilateral lower extremity with some scratch cleary no wound or drainage - Labs CBC & Chem 7: 05/29/23 06:32 05/29/23 06:32 Labs: Abnormal Lab Results - Last 24 Hours (Table) 05/27/23 05/29/23 05/29/23 Range/Units 18:41 16:43 20:10 POC Glucose (mg/dL) 265 H 396 H (70-110) mg/dL Methylmalonic Acid 0.52 H (<0.40) umol/L Copper 1489 H (665-1480) ug/L 05/30/23 Range/Units 11:47 POC Glucose (mg/dL) 339 H (70-110) mg/dL Methylmalonic Acid (<0.40) umol/L Copper (665-1480) ug/L Assessment and Plan (1) Venous stasis dermatitis of both lower extremities Current Visit: Yes Status: Acute Code(s): I87.2 - VENOUS INSUFFICIENCY (CHRONIC) (PERIPHERAL) SNOMED Code(s): 31228602 Plan: 1patient in the hospital with increasing shortness of breath also increasing swelling lower extremity to have some diffuse swelling multiple scratch cleary and itching likely concerning for venous stasis dermatitis clinic suspicious low for cellulitis 2-patient has been advised again to continue with calamine lotion to bilateral lower extremity followed by Margarito wrap to keep some of the swelling down and no need for systemic antibiotics Dictation was produced using [employer] dictation software. please excuse any grammatical, word or spelling errors. Time with Patient: Less than 30
[2023-05-30 16:57] LABS: Glucose,Whole Blood 196 mg/dL (70-110)
[2023-05-30 19:52] LABS: Glucose,Whole Blood 291 mg/dL (70-110)
[2023-05-30] MEDS: ATORVASTATIN 40 MG TAB PO SCH (20:34)
--- NOTE | 2023-05-30 21:09 | P.PN ---
Subjective Progress Note Date: 05/30/23 At today's visit patient is resting comfortably in bedside chair. Patient is reporting pruritus of upper and lower bilateral extremities. Patient denies shortness of breath. Remains afebrile. Objective - Vital Signs Vital signs: Vital Signs Temp 98.1 F 05/30/23 19:58 Pulse 84 05/30/23 20:03 Resp 18 05/30/23 19:58 BP 92/55 05/30/23 19:58 Pulse Ox 95 05/30/23 19:58 FiO2 Intake & Output 05/30/23 05/30/23 05/31/23 06:59 18:59 06:59 Weight 81.2 kg Other: # Voids 4 4 - Constitutional General appearance: Present: average body habitus, no acute distress - EENT Eyes: Present: EOMI - Respiratory Details: breathing is even and unlabored - Cardiovascular Details: skin warm and dry - Integumentary Integumentary Comment(s): lesions and scabbing to bilateral upper and lower extremities. BLE edematous with erythema noted - Psychiatric Psychiatric: Present: A&O x's 3 - Labs CBC & Chem 7: 05/29/23 06:32 05/29/23 06:32 Labs: Abnormal Lab Results - Last 24 Hours (Table) 05/27/23 05/30/23 05/30/23 Range/Units 18:41 11:47 16:55 POC Glucose (mg/dL) 339 H 196 H (70-110) mg/dL Methylmalonic Acid 0.52 H (<0.40) umol/L 05/30/23 Range/Units 19:50 POC Glucose (mg/dL) 291 H (70-110) mg/dL Methylmalonic Acid (<0.40) umol/L Assessment and Plan (1) Pancytopenia Current Visit: Yes Status: Acute Priority: Medium Code(s): D61.818 - OTHER PANCYTOPENIA SNOMED Code(s): 369858785 Plan: Pancytopenia: -Hx of Hep C, alcohol and drug abuse. Denies any episodes of acute bleeding. Last colonoscopy approx 20 yrs ago, does not recall findings, never f/u as directed. Denies EGD in past. -Mild anemia and thrombocytopenia noted. Upon admission WBC normal. Hgb 9.6, Plt 135,000. Mild anemia and thrombocytopenia noted since 2019. -Pancytopenia workup ordered. Workup revealed elevated K/L LC, with mildly elevated ratio at 1.83, this is likely due to abnormal kidney function. Immunofixation and m spike negative for paraproteinemia -OLIVE and folate deficiency noted. Supplementation ordered. Vit b12 normal -General surgery consulted due to OLIVE to r/o underlying GI etiologies -Mild noted thrombocytopenia likely secondary to known hx of hep c and etoh abuse, and anemia r/t inflammation and possible GI blood loss. Will await recommendations by general surgery team. Would aspect counts to improve as patient acutely recovers Attests: I have seen and examined pt, performed H&P, developed impression and plan of care. Discussed with dictator. Agree with documentation, dictated as a scribe.
[2023-05-30] MEDS: SODIUM CHLORIDE 0.9% 1,000 ML IV SCH (22:20)
[2023-05-31] MEDS: BUMETANIDE 0.25 MG/ML 10 ML VIAL IV SCH ×2 (01:25→12:32)
[2023-05-31] MEDS: MORPHINE SULFATE 4 MG/ML SYRINGE IVP PRN ×4 (02:04→16:08)
[2023-05-31 07:01] LABS: Glucose,Whole Blood 259 mg/dL (70-110)
[2023-05-31] MEDS: FOLIC ACID 1 MG TAB PO SCH (08:07)
[2023-05-31] MEDS: ISOSORBIDE DINITRATE 20 MG TAB PO SCH ×2 (08:07→16:18)
[2023-05-31] MEDS: PANTOPRAZOLE 40 MG TABLET PO SCH ×2 (08:07→18:22)
[2023-05-31] MEDS: METOPROLOL SUCCINATE (ER) 25 MG TAB.ER.24H PO SCH (08:07)
[2023-05-31] MEDS: ASPIRIN 81 MG PO SCH (08:07)
[2023-05-31] MEDS: DAPAGLIFLOZIN PROPANEDIOL 10 MG TABLET PO SCH (08:07)
[2023-05-31] MEDS: metOLazone 5 MG TAB PO SCH (08:07)
[2023-05-31] MEDS: hydrALAZINE HCL 10 MG TAB PO SCH ×2 (08:08→16:18)
[2023-05-31] MEDS: SPIRONOLACTONE 25 MG TAB PO SCH (08:08)
[2023-05-31] MEDS: HYDROcodone/APAP 10-325MG 1 EACH TAB PO SCH ×3 (08:08→18:22)
[2023-05-31] MEDS: CALAMINE/ZINC OXIDE LOTION 177 ML BTL TOPICAL SCH (08:09)
[2023-05-31] MEDS: INSULIN ASPART (NovoLOG) 100 UNIT/ML VIAL SQ SCH ×3 (08:12→18:22)
--- NOTE | 2023-05-31 08:17 | PN ---
PROGRESS NOTE DATE OF SERVICE: 05/29/2023 History of chest pain, CHF, hyperkalemia, severe leg swelling, and redness. He has been given diuresis on multiple days kidney functions improved. He has been up ambulating. He has been given CHF medications. Temperature is 98-97, pulse 80-83, blood pressure 92/65, 95 on room air. He had a recent nocturnal oxygen study, drops down to 72% at night for an hour and a half. He is doing breathing treatments today, is going to possibly go home in the next 24 to 48 hours depending on patient's improvement. Watch for orthostatic hypotension and dizziness. He is on IV antibiotics for cellulitis of the legs. Prognosis is guarded. Continue current treatments. Please see further orders. MMODL / IJN: [id number] /
--- NOTE | 2023-05-31 08:20 | PN ---
PROGRESS NOTE SUBJECTIVE: This is a 63-year-old white male, being worked up for pancytopenia. He has been admitted with CHF exacerbation, he has large amount of fluid in his legs despite Bumex IV. People have been writing he does not need oxygen in the chart, but he recently qualified through Medicare, his oxygen drops down to 73% 1-1/2 hours every night, so he needs oxygen at night. He qualifies, he did at home for nighttime, so please do not say he does not need oxygen when he really does. They are actually hurting the patient. OBJECTIVE: VITAL SIGNS: Temperature is 98.1, pulse 83, respiratory rate 16 to 18, blood pressure 92/55, and O2 95 on room air. CARDIOVASCULAR: S1, S2. LUNGS: Scattered rhonchi and wheeze. HEMATOLOGIC: 2 to 3+ edema. NEUROLOGIC: Alert and oriented x3. PSYCH: Fair mood and affect. ASSESSMENT: 1. COPD. 2. CHF. 3. Acute on chronic diastolic heart failure. 4. Pulmonary hypertension. PLAN: Continue current treatment with diuresis, his legs look really red, has 2 to 3+ edema. I think he needs probably oral Keflex but will use Dr. Starkey's recommendations on that. Continue on current treatments. Possibly go home in next 24 to 48 hours. He has been set up with nebulizer at home. MMODL / IJN: [id number] /
[2023-05-31] MEDS: IPRATROPIUM-ALBUTEROL 3 ML NEB INHALATION SCH ×3 (09:07→16:39)
[2023-05-31] MEDS: SYMBICORT 80-4.5 MCG INHALER INHALATION SCH (09:07)
--- NOTE | 2023-05-31 09:20 | PN ---
PROGRESS NOTE SUBJECTIVE: This is a 63-year-old white male. He is on IV Lasix, Bumex 2 mg every 8 hours. His generalized rash is going away. Said we took him off Lasix, he is on his updraft treatment with Symbicort. Regarding medicines . OBJECTIVE: CARDIOVASCULAR: S1, S2. LUNGS: Transmitted upper sounds. GI: Soft. PSYCH: Fair mood and affect. VITAL SIGNS: Temp 98.1, pulse 80s, respiratory rate 16 to 18, blood pressure 92/50, O2 of 95% to 99% on room air. He is up ambulating. EXTREMITIES: He has 2 to 3+ edema bilateral legs. He has a pressure compression or discharge home. Check him for orthostatic hypotension. PROGNOSIS: Guarded. Follow up in next 24 to 48 hours after discharge. MMODL / IJN: [id number] /
[2023-05-31 11:43] LABS: Glucose,Whole Blood 311 mg/dL (70-110)
[2023-05-31 11:48] LABS: ALT 29 U/L (4-49); AST 45 U/L (17-59); African American GFR (CKD) 31 (>60 ml/min/1.73 sqM); Albumin 3.7 g/dL (3.5-5.0); Albumin/Globulin Ratio 1.4; Alkaline Phosphatase 92 U/L (38-126); Anion Gap 14 mmol/L; Blood Urea Nitrogen 83 mg/dL (9-20); Calcium 8.6 mg/dL (8.4-10.2); Carbon Dioxide 30 mmol/L (22-30); Chloride 87 mmol/L (98-107); Globulin 2.7 g/dL; Glucose 231 mg/dL (74-99); Non-African American GFR(CKD) 27 (>60 ml/min/1.73 sqM); Potassium 4.5 mmol/L (3.5-5.1); Sodium 131 mmol/L (137-145); Total Bilirubin 0.6 mg/dL (0.2-1.3); Total Protein 6.4 g/dL (6.3-8.2)
[2023-05-31 13:07] LABS: Basophils # (A) 0.07 X 10*3/uL (0.00-0.10); Basophils % (A) 0.9 %; Eosinophils % (A) 6.4 %; Lymphocytes # (A) 0.74 X 10*3/uL (0.90-5.00); Lymphocytes % (A) 9.4 %; MCH 29.2 pg (27.0-32.0); MCHC 32.3 g/dL (32.0-37.0); MCV 90.6 FL (80.0-97.0); Monocytes # (A) 1.43 X 10*3/uL (0.20-1.00); Monocytes % (A) 18.2 %; NRBC Per 100 WBC 0 X 10*3/uL (0.00-0.01); Neutrophils # (A) 5.11 X 10*3/uL (1.80-7.70); Platelet Count 200 X 10*3/uL (140-440); RBC 3.42 X 10*6/uL (4.40-5.60); RDW 13.5 % (11.5-14.5); WBC 7.86 X 10*3/uL (4.50-10.00)
[2023-05-31 15:32] VITALS: RESP 18; TEMP 98.1
[2023-05-31 16:15] VITALS: BP 119/67
[2023-05-31 16:57] VITALS: PULSE 88
[2023-05-31 17:01] LABS: Glucose,Whole Blood 151 mg/dL (70-110)
--- NOTE | 2023-05-31 17:24 | P.PN ---
Progress Note - Text Progress Note Date: 05/31/23 Patient dressed, believes he will be discharged. Late afternoon Afebrile vital stable Hemoglobin 10, WBC 7.9, platelets 200 Abdomen benign Iron deficiency anemia, pancytopenia CHF, chronic renal failure Plan for lower endoscopy when patient medically optimized, otherwise may be done as outpatient. No evidence of acute surgical bleeding.
--- NOTE | 2023-05-31 19:08 | PN ---
PROGRESS NOTE Acute on chronic diastolic heart failure. MMODL / IJN: [id number] /
[2023-05-31] MEDS ORDERED: BUMETANIDE 1 MG TAB PO SCH (21:00)
== END 2023-05-31 17:49 | disposition home health service (06) | DRG 194 ==
LOC: EC 15:09 → 3SCARD 18:59 → 4SSUR 05-21 10:27
PROVIDERS: ADMIT Family Medicine; ATTEND Family Medicine
PROC: 05HC33Z Insertion of Infusion Device into Left Basilic Vein, Percutaneous Approach (ICD-10-PCS; principal; 2023-05-29 12:50)
DX: I13.0 Hypertensive heart and chronic kidney disease with heart failure and stage 1 through stage 4 chronic kidney disease, or unspecified chronic kidney disease (principal); D61.818 Other pancytopenia; I50.33 Acute on chronic diastolic (congestive) heart failure; D69.6 Thrombocytopenia, unspecified; I27.20 Pulmonary hypertension, unspecified; J44.1 Chronic obstructive pulmonary disease with (acute) exacerbation; I69.354 Hemiplegia and hemiparesis following cerebral infarction affecting left non-dominant side; L03.115 Cellulitis of right lower limb; L03.116 Cellulitis of left lower limb; I42.9 Cardiomyopathy, unspecified; E11.40 Type 2 diabetes mellitus with diabetic neuropathy, unspecified; E11.22 Type 2 diabetes mellitus with diabetic chronic kidney disease; F31.9 Bipolar disorder, unspecified; N18.9 Chronic kidney disease, unspecified; I25.10 Atherosclerotic heart disease of native coronary artery without angina pectoris; G89.29 Other chronic pain; M54.50 Low back pain, unspecified; R29.6 Repeated falls; M50.30 Other cervical disc degeneration, unspecified cervical region; K76.9 Liver disease, unspecified; I49.3 Ventricular premature depolarization; F10.10 Alcohol abuse, uncomplicated; B19.20 Unspecified viral hepatitis C without hepatic coma; B86 Scabies; D50.9 Iron deficiency anemia, unspecified; E78.5 Hyperlipidemia, unspecified; E87.5 Hyperkalemia; I87.2 Venous insufficiency (chronic) (peripheral); F41.1 Generalized anxiety disorder; F17.200 Nicotine dependence, unspecified, uncomplicated; H57.9 Unspecified disorder of eye and adnexa; R77.8 Other specified abnormalities of plasma proteins; I25.2 Old myocardial infarction; T50.906A Underdosing of unspecified drugs, medicaments and biological substances, initial encounter; Z91.128 Patient's intentional underdosing of medication regimen for other reason; Z79.84 Long term (current) use of oral hypoglycemic drugs; Z79.82 Long term (current) use of aspirin; Z79.51 Long term (current) use of inhaled steroids; Z79.899 Other long term (current) drug therapy; Z95.5 Presence of coronary angioplasty implant and graft; Z86.14 Personal history of Methicillin resistant Staphylococcus aureus infection; Z88.0 Allergy status to penicillin; Z88.8 Allergy status to other drugs, medicaments and biological substances; Z82.49 Family history of ischemic heart disease and other diseases of the circulatory system
CPT/HCPCS: 36410; 36415; 71046; 76937; 80048; 80053; 82525; 82607; 82728; 82746; 83540; 83550; 83605; 83735; 83880; 83883; 83921; 84165; 84484; 85025; 85610; 85730; 86038; 86334; 86431; 93005; 93970; 94640; 94760; 96374; 96375; 96376; 99291

== ENCOUNTER 2023-07-22 01:24 | Inpatient (IN) | payer OTHER ==
[2023-07-22] MEDS: methylPREDNISolone SOD SUCCI 125 MG/2 ML VIAL IV STA (01:44)
[2023-07-22 02:01] LABS: Basophils % (A) 1 %; Eosinophils # (A) 0.2 k/uL (0-0.7); Eosinophils % (A) 4 %; HCT 37.2 % (39.0-53.0); HGB 11.7 gm/dL (13.0-17.5); Hypochromasia Marked; Lymphocytes # (A) 0.8 k/uL (1.0-4.8); Lymphocytes % (A) 17 %; MCH 29.2 pg (25.0-35.0); MCHC 31.4 g/dL (31.0-37.0); MCV 93.1 fL (80.0-100.0); Mean Platelet Volume 9.8; Monocytes # (A) 0.4 k/uL (0-1.0); Monocytes % (A) 8 %; Neutrophils # (A) 3.2 k/uL (1.3-7.7); Neutrophils % (A) 69 %; Platelet Count 131 k/uL (150-450); RBC 3.99 m/uL (4.30-5.90); RDW 14.7 % (11.5-15.5); WBC 4.6 k/uL (3.8-10.6)
--- NOTE | 2023-07-22 02:02 | ED ---
SOB HPI - General Chief Complaint: Shortness of Breath Stated Complaint: Difficulty breathing Time Seen by Provider: 07/22/23 01:28 Source: EMS Mode of arrival: EMS Limitations: no limitations - History of Present Illness Initial Comments: 63-year-old male with past medical history of CHF with COPD on 2 L home O2 who presents to the emergency department with shortness of breath. States he has become short of breath over the past couple of days. He used to wear his oxygen only at night however he has been wearing his oxygen round the clock because of the shortness of breath. He has had a nonproductive cough. No fevers. No sick contacts. Denies any chest pain. He has done 5 breathing treatments today without any relief in his breathing. He admits to significant weight gain with increased lower extremity swelling. He is taking his diuretic without any missed doses. 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 No other alleviating, Perceptin or modifying factors - Related Data Home Medications Medication Instructions Recorded Confirmed Albuterol Sulfate [Ventolin HFA] 1 - 2 puff INHALATION RT-Q6H PRN 05/20/23 07/22/23 HYDROcodone/APAP 10-325MG [[place]ias 1 tab PO QID 05/20/23 07/22/23 10-325] Ipratropium-Albuterol Nebulize 3 ml INHALATION RT-TID 05/20/23 07/22/23 [Duoneb 0.5 mg-3 mg/3 ml Soln] Gabapentin 300 mg PO DAILY 07/22/23 07/22/23 Previous Rx's Medication Instructions Recorded Aspirin 81 mg PO DAILY 90 Days #90 tab 04/22/23 Atorvastatin [Lipitor] 40 mg PO HS 90 Days #90 tab 04/22/23 Metoprolol Succinate (ER) [Toprol 25 mg PO DAILY 90 Days #90 tab 04/22/23 XL] Allergies Allergy/AdvReac Type Severity Reaction Status Date / Time Penicillins Allergy Unknown Verified 07/22/23 11:01 Childhood metformin AdvReac Mild Nausea Verified 07/22/23 11:01 Review of Systems ROS Statement: Those systems with pertinent positive or pertinent negative responses have been documented in the HPI. ROS Other: All systems not noted in ROS Statement are negative. Past Medical History Past Medical History: Coronary Artery Disease (CAD), Heart Failure, COPD, CVA/TIA, Diabetes Mellitus, Eye Disorder, Hyperlipidemia, Hypertension, Liver Disease, Myocardial Infarction (SC), Renal Disease Additional Past Medical History / Comment(s): Iischemic cardiomyopathy, PVCs, CVA 2019 with L sided weakness, chronic low back pain d/t vertebral fractures years ago as well as cervical pinched nerves, DDD, IDDM type II, neuropathy bilateral hands/legs and feet, pt states he can barely see with L eye and R eye vision is not very good/he is unsure why but believes it is d/t diabetes, liver disease/hepatitis C/ETOH abuse, recurrent ascities/paracentesis, recent R hip fracture d/t fall/recurrent falls. Last Myocardial Infarction Date:: October 2018 History of Any Multi-Drug Resistant Organisms: MRSA Date of last positivie culture/infection: 11/23/20 MDRO Source:: FOOT MRSA Past Surgical History: Cholecystectomy, Heart Catheterization, Heart Catheterization With Stent, Tonsillectomy Additional Past Surgical History / Comment(s): R heel I&D, colonoscopy. Past Anesthesia/Blood Transfusion Reactions: No Reported Reaction Date of Last Stent Placement:: 2011 Past Psychological History: Anxiety, Bipolar, Depression Smoking Status: Current every day smoker Past Alcohol Use History: None Reported Past Drug Use History: Marijuana - Past Family History Mother Family Medical History: Cancer Father Family Medical History: Coronary Artery Disease (CAD), Diabetes Mellitus, Hypertension General Exam Limitations: no limitations General appearance: alert, in distress Head exam: Present: atraumatic, normocephalic, normal inspection Eye exam: Present: normal appearance, PERRL, EOMI. Absent: scleral icterus, conjunctival injection, periorbital swelling Respiratory exam: Present: respiratory distress, rales, accessory muscle use, decreased breath sounds, other (tachypnia) Cardiovascular Exam: Present: normal rhythm, tachycardia GI/Abdominal exam: Present: soft, normal bowel sounds. Absent: distended, tenderness, guarding, rebound, rigid Extremities exam: Present: pedal edema Neurological exam: Present: alert, oriented X3, CN II-XII intact Psychiatric exam: Present: normal affect, normal mood Course Vital Signs 07/22/23 07/22/23 07/22/23 01:26 01:30 02:30 Temperature 98.8 F Pulse Rate 108 H 96 Pulse Rate [ Sheep Herder ] Respiratory 26 H 22 Rate Blood Pressure 169/125 170/91 Blood Pressure [Right Arm] O2 Sat by Pulse 95 98 98 Oximetry 07/22/23 07/22/23 07/22/23 02:40 04:56 05:45 Temperature 98.4 F Pulse Rate 92 77 Pulse Rate [ Sheep Herder ] Respiratory 18 18 Rate Blood Pressure 173/84 155/90 Blood Pressure [Right Arm] O2 Sat by Pulse 98 98 98 Oximetry 07/22/23 07/22/23 07/22/23 06:57 08:30 11:45 Temperature 97.9 F Pulse Rate 90 Pulse Rate [ 77 92 Sheep Herder ] Respiratory 16 16 16 Rate Blood Pressure 150/68 Blood Pressure 150/79 195/108 [Right Arm] O2 Sat by Pulse 98 93 L 99 Oximetry 07/22/23 07/22/23 07/22/23 12:09 12:19 13:54 Temperature Pulse Rate 89 81 Pulse Rate [ 79 Sheep Herder ] Respiratory 16 Rate Blood Pressure Blood Pressure 163/89 [Right Arm] O2 Sat by Pulse 94 L Oximetry Medical Decision Making - Medical Decision Making @ -Was pt. sent in by a medical professional or institution (, PA, DORR OPERATOR, urgent care, hospital, or correction...) When possible be specific @ -No Did you speak to anyone other than the patient for history (EMS, parent, family, police, friend...)? What history was obtained from this source @ -EMS Did you review nursing and triage notes (agree or disagree)? Why? @ -I reviewed and agree with nursing and triage notes Were old charts reviewed (outside hosp., previous admission, EMS record, old EKG, old radiological studies, urgent care reports/EKG's, correction records)? Report findings @ -No old charts were reviewed Differential Diagnosis (chest pain, altered mental status, abdominal pain women, abdominal pain men, vaginal bleeding, weakness, fever, dyspnea, syncope, headache, dizziness, GI bleed, back pain, seizure, CVA, palpatations, mental health, musculoskeletal)? @ -Differential Dyspnea: Coronary syndrome, arrhythmia, tamponade, asthma, COPD, pulmonary embolism, pneumonia, pneumothorax, pulmonary effusion, anaphylaxis, diabetic ketoacidosis, flailed chest, pulmonary contusion, diaphragmatic rupture, anemia, neuromuscular, this is not meant to be an all-inclusive list. EKG interpreted by me (3pts min.). @ -Yes and demonstrates sinus tachycardia with a rate of 106. AZ interval 169. QRS 103. QTC of 375. ST depression in V4-V5, 3 and aVF X-rays interpreted by me (1pt min.). @ -yes, demonstrates bilateral pleural effusions CT interpreted by me (1pt min.). @ -None done U/S interpreted by me (1pt. min.). @ -None done What testing was considered but not performed or refused? (CT, X-rays, U/S, labs)? Why? @ -None What meds were considered but not given or refused? Why? @ -None Did you discuss the management of the patient with other professionals (professionals i.e. DrLuke, PA, DORR OPERATOR, lab, RT, psych nurse, social work program coordinator, special education coordinator, teacher, lodge officer, case sealer)? Give summary @ -Dr. Askew Was smoking cessation discussed for >3mins.? @ -No Was critical care preformed (if so, how long)? @ -No Were there social determinants of health that impacted care today? How? (Homelessness, low income, unemployed, alcoholism, drug addiction, transportation, low edu. Level, literacy, decrease access to med. care, penitentiary, rehab)? @ -No Was there de-escalation of care discussed even if they declined (Discuss DNR or withdrawal of care, Hospice)? DNR status @ -No What co-morbidities impacted this encounter? (DM, HTN, Smoking, COPD, CAD, Cancer, CVA, ARF, Chemo, Hep., AIDS, mental health diagnosis, sleep apnea, morbid obesity)? @ -copd, chf Was patient admitted / discharged? Hospital course, mention meds given and route, prescriptions, significant lab abnormalities, going to OR and other pertinent info. @ -Upon arrival patient was placed into room 6. Thorough history and physical exam was performed. Patient was given a breathing treatment by EMS. IV was established. Laboratory studies were conducted. Chest x-ray was performed. Patient was given a dose of Lasix 60 mg Patient was given a dose of Lasix 60 mg and 125 of Solu-Medrol. Breathing treatments are ordered. He does require admission due to significant work of breathing. Patient will be admitted to Dr. Loyola who agreed to the admission. Undiagnosed new problem with uncertain prognosis? @ -yes Drug Therapy requiring intensive monitoring for toxicity (Heparin, Nitro, Insulin, Cardizem)? @ -No Were any procedures done? @ -No Diagnosis/symptom? @ -acute respiratory insufficiency, aechf, aecopd Acute, or Chronic, or Acute on Chronic? @ -acute Uncomplicated (without systemic symptoms) or Complicated (systemic symptoms)? @ -acute on chronic Side effects of treatment? @ -No Exacerbation, Progression, or Severe Exacerbation? @ -yes Poses a threat to life or bodily function? How? (Chest pain, USA, SC, pneumonia, PE, COPD, DKA, ARF, appy, cholecystitis, CVA, Diverticulitis, Homicidal, Suicidal, threat to staff... and all critical care pts) @ -yes, patient has significant increase in respiratory effort - Lab Data Result diagrams: 07/30/23 08:37 07/30/23 08:37 Lab Results 07/22/23 07/22/23 07/22/23 Range/Units 01:50 01:50 01:50 WBC 4.6 (3.8-10.6) k/uL RBC 3.99 L (4.30-5.90) m/uL Hgb 11.7 L (13.0-17.5) gm/dL Hct 37.2 L (39.0-53.0) % MCV 93.1 (80.0-100.0) fL MCH 29.2 (25.0-35.0) pg MCHC 31.4 (31.0-37.0) g/dL RDW 14.7 (11.5-15.5) % Plt Count 131 L (150-450) k/uL MPV 9.8 Neutrophils % 69 % Lymphocytes % 17 % Monocytes % 8 % Eosinophils % 4 % Basophils % 1 % Neutrophils # 3.2 (1.3-7.7) k/uL Lymphocytes # 0.8 L (1.0-4.8) k/uL Monocytes # 0.4 (0-1.0) k/uL Eosinophils # 0.2 (0-0.7) k/uL Basophils # 0.0 (0-0.2) k/uL Hypochromasia Marked PT 11.5 (10.0-12.5) sec INR 1.1 (<1.2) APTT 26.3 (22.0-30.0) sec Sodium 133 L (137-145) mmol/L Potassium (3.5-5.1) mmol/L Chloride 107 (98-107) mmol/L Carbon Dioxide 19 L (22-30) mmol/L Anion Gap 7 mmol/L BUN 34 H (9-20) mg/dL Creatinine 1.51 H (0.66-1.25) mg/dL Est GFR (CKD-EPI)AfAm 56 (>60 ml/min/1.73 sqM) Est GFR (CKD-EPI)NonAf 48 (>60 ml/min/1.73 sqM) Glucose 233 H (74-99) mg/dL Plasma Lactic Acid [place] (0.7-2.0) mmol/L Calcium 8.3 L (8.4-10.2) mg/dL Total Bilirubin 1.0 (0.2-1.3) mg/dL AST 57 (17-59) U/L ALT 36 (4-49) U/L Alkaline Phosphatase 123 (38-126) U/L Troponin I (0.000-0.034) ng/mL NT-Pro-B Natriuret Pep 99950 pg/mL Total Protein 7.2 (6.3-8.2) g/dL Albumin 4.0 (3.5-5.0) g/dL 07/22/23 07/22/23 07/22/23 Range/Units 01:50 01:50 02:57 WBC (3.8-10.6) k/uL RBC (4.30-5.90) m/uL Hgb (13.0-17.5) gm/dL Hct (39.0-53.0) % MCV (80.0-100.0) fL MCH (25.0-35.0) pg MCHC (31.0-37.0) g/dL RDW (11.5-15.5) % Plt Count (150-450) k/uL MPV Neutrophils % % Lymphocytes % % Monocytes % % Eosinophils % % Basophils % % Neutrophils # (1.3-7.7) k/uL Lymphocytes # (1.0-4.8) k/uL Monocytes # (0-1.0) k/uL Eosinophils # (0-0.7) k/uL Basophils # (0-0.2) k/uL Hypochromasia PT (10.0-12.5) sec INR (<1.2) APTT (22.0-30.0) sec Sodium (137-145) mmol/L Potassium 5.9 H (3.5-5.1) mmol/L Chloride (98-107) mmol/L Carbon Dioxide (22-30) mmol/L Anion Gap mmol/L BUN (9-20) mg/dL Creatinine (0.66-1.25) mg/dL Est GFR (CKD-EPI)AfAm (>60 ml/min/1.73 sqM) Est GFR (CKD-EPI)NonAf (>60 ml/min/1.73 sqM) Glucose (74-99) mg/dL Plasma Lactic Acid [place] 1.6 (0.7-2.0) mmol/L Calcium (8.4-10.2) mg/dL Total Bilirubin (0.2-1.3) mg/dL AST (17-59) U/L ALT (4-49) U/L Alkaline Phosphatase (38-126) U/L Troponin I 0.149 H* (0.000-0.034) ng/mL NT-Pro-B Natriuret Pep pg/mL Total Protein (6.3-8.2) g/dL Albumin (3.5-5.0) g/dL Disposition Clinical Impression: Adult respiratory distress syndrome, Acute exacerbation of chronic obstructive airways disease, Congestive heart failure Disposition: ADMITTED IP TO THIS [facility] Condition: Serious Is patient prescribed a controlled substance at d/c from ED?: No Time of Disposition: 03:42 Decision to Admit Reason: Admit from EC Decision Date: 07/22/23 Decision Time: 03:42
[2023-07-22 02:06] LABS: ALT 36 U/L (4-49); AST 57 U/L (17-59); African American GFR (CKD) 56 (>60 ml/min/1.73 sqM); Alkaline Phosphatase 123 U/L (38-126); Anion Gap 7 mmol/L; Blood Urea Nitrogen 34 mg/dL (9-20); Calcium 8.3 mg/dL (8.4-10.2); Carbon Dioxide 19 mmol/L (22-30); Chloride 107 mmol/L (98-107); Glucose 233 mg/dL (74-99); Non-African American GFR(CKD) 48 (>60 ml/min/1.73 sqM); Sodium 133 mmol/L (137-145); Total Protein 7.2 g/dL (6.3-8.2)
[2023-07-22 02:08] LABS: INR 1.1 (<1.2); Partial Thromboplastin Time 26.3 sec (22.0-30.0); Prothrombin Time 11.5 sec (10.0-12.5)
[2023-07-22 02:15] LABS: NT-Pro-B-Type Natriuretic Pept 25700 pg/mL
--- NOTE | 2023-07-22 02:18 | XR ---
EXAM: XR Chest, 2 Views CLINICAL HISTORY: ITS.REASON XR Reason: difficulty breathing TECHNIQUE: Frontal and lateral views of the chest. COMPARISON: No relevant prior studies available. FINDINGS: Lungs: Mild diffuse interstitial opacities throughout both lungs. Pleural space: Small-moderate bilateral pleural effusions, worse on the left. Heart: Cardiomegaly. Mediastinum: Unremarkable. Normal mediastinal contour. Bones/joints: No acute findings. IMPRESSION: Mild CHF. Bilateral pleural effusions, worse on the left.
[2023-07-22] MEDS: MORPHINE SULFATE 4 MG/ML SYRINGE IVP STA ×2 (02:35→06:55)
[2023-07-22] MEDS: FUROSEMIDE 10 MG/ML 10 ML VIAL IV STA (02:35)
[2023-07-22] MEDS ORDERED: NALOXONE 0.4 MG/ML 1 ML VIAL IV PRN (03:43)
[2023-07-22] MEDS ORDERED: HEPARIN SODIUM 1,000 UN/ML (10ML VL) IV PRN (03:43)
[2023-07-22] MEDS: HEPARIN SOD,PORK IN 0.45% NACL 25,000 UNIT in 0.45% NACL 1 250ML.BAG IV SCH (03:54)
[2023-07-22] MEDS: HEPARIN SODIUM 1,000 UN/ML (10ML VL) IV ONE (03:57)
[2023-07-22] MEDS: ASPIRIN 81 MG PO STA (03:57)
[2023-07-22] MEDS: IPRATROPIUM-ALBUTEROL 3 ML NEB INHALATION SCH ×3 (05:12→21:05)
--- NOTE | 2023-07-22 09:30 | P.CRDCN ---
History of Present Illness History of present illness: HISTORY OF PRESENT ILLNESS: This is a 63-year-old male with a past medical history significant for coronary artery disease with previous stenting, ischemic cardiomyopathy, hypertension, h yperlipidemia, nicotine dependence, and former alcohol abuse. Patient has not followed in the office since 2015, however at that time he saw Dr. Soni. We have been asked to see the patient in consultation for CHF. Patient examined at the bedside in the emergency room. Patient presented to the hospital yesterday with a chief complaint of shortness of breath. He states he has been feeling short of breath for the past few days at home. He reports home oxygen use and states he utilizes O2 24/7. He reports increased lower extremity edema and also increased abdominal bloating. He reports a weight gain of about 12 pounds over the past week. The patient states he has been taking his medications as prescribed until recently when he began to run out of some of them. He is unsure which ones he ran out of but he believes one of them is a diuretic and another 1 is a blood pressure pill. He reports an episode of chest pain yesterday at home after walking to the bathroom. He states the pain lasted for about 2 minutes and then resolved on its own. He denies any further episodes of chest pain or pressure since that time. The patient reports he has not smoked in 2 or 3 months. He also reports he has not drank alcohol in over 30 years. Patient's blood pressure is elevated at the time of examination with a systolic in the 150s. Bedside telemetry reveals sinus mechanism with a heart rate in the 70s. DIAGNOSTICS: EKG reveals sinus mechanism with T wave inversions in inferior leads and V5V6, similar to previous EKG Chest xray mild CHF. Bilateral pleural effusions. Worse on the left. Laboratory data: Sodium 133. Potassium 5.9. However specimen is hemolyzed. BUN 34. Creatinine 1.51. Troponin 0.149. proBNP 25,700. Current home cardiac medications include medication list is not updated at the time of dictation Most recent echocardiogram obtained in March 2023 revealed ejection fraction 20 to 25%, mild to moderate TR, trace MR, and calcified aortic valve without significant stenosis Cardiac catheterization history: January 2016 revealing intermediate in-stent restenosis of the RCA, mild to moderate nonobstructive coronary artery disease involving the left coronary system, normal left ventricular systolic function. REVIEW OF SYSTEMS: At the time of my exam: CONSTITUTIONAL: Denies fever or chills. HEENT: Denies blurred vision, vision changes, or eye pain. Denies hemoptysis CARDIOVASCULAR: Denies chest pain. Reports orthopnea. Reports PND. Denies palpitations RESPIRATORY: Reports shortness of breath. GASTROINTESTINAL: Denies abdominal pain. Denies nausea or vomiting. Reports abdominal bloating HEMATOLOGIC: Denies bleeding disorders. GENITOURINARY: Denies any blood in urine. SKIN: Denies pruitis. Denies rash. PHYSICAL EXAM: VITAL SIGNS: Reviewed. GENERAL: Well-developed in no acute distress. HEENT: Head is normocephalic. Pupils are equal, round. Sclerae anicteric. Mucous membranes of the mouth are moist. Neck supple. No JVD or thyromegaly LUNGS: Respirations even and unlabored. Lungs diminished at the bases with bibasilar crackles HEART: Regular rate and rhythm. S1 and S2 heard. Soft systolic murmur noted. ABDOMEN: Firm. Distended. EXTREMITIES: Normal range of motion. No clubbing or cyanosis. Peripheral pulses intact. 2-3+ bilateral pitting lower extremity edema NEUROLOGIC: Awake and alert. Oriented x 3. ASSESSMENT: Shortness of breath Acute on chronic heart failure with reduced ejection fraction, 25%, proBNP 25,700 Elevated troponin, suspect secondary to type II CT secondary to oxygen supply demand mismatch Coronary artery disease with previous stenting of the RCA Mild to moderate nonobstructive CAD involving left coronary system Ischemic cardiomyopathy Chronic kidney disease Chronic hypoxic respiratory failure on home O2, 20/01 History of COPD Hypertension Hyperlipidemia Former nicotine dependence, patient quit smoking 2 to 3 months ago Former alcohol abuse, patient states he has not drank in 30 years History of medication noncompliance PLAN: No need to repeat echocardiogram Continue IV Lasix 60mg twice a day Daily weights, accurate I&O, and monitoring of kidney function Repeat potassium as specimen was hemolyzed. If repeat potassium level is within normal limits, resume Aldactone Trend troponins. If second troponin remains flat, will discontinue IV heparin and transition to subcutaneous heparin Medication compliance reinforced with patient. Patient is agreeable to follow- up in the office postdischarge as long as he can arrange transportation. Further recommendations pending patient course Nurse practitioner note has been reviewed by physician. Signing provider agrees with the documented findings, assessment, and plan of care. Past Medical History Past Medical History: Coronary Artery Disease (CAD), Heart Failure, COPD, CVA/TIA, Diabetes Mellitus, Eye Disorder, Hyperlipidemia, Hypertension, Liver Disease, Myocardial Infarction (CT), Renal Disease Additional Past Medical History / Comment(s): Iischemic cardiomyopathy, PVCs, CVA 2019 with L sided weakness, chronic low back pain d/t vertebral fractures years ago as well as cervical pinched nerves, DDD, IDDM type II, neuropathy bilateral hands/legs and feet, pt states he can barely see with L eye and R eye vision is not very good/he is unsure why but believes it is d/t diabetes, liver disease/hepatitis C/ETOH abuse, recurrent ascities/paracentesis, recent R hip fracture d/t fall/recurrent falls. Last Myocardial Infarction Date:: October 2018 History of Any Multi-Drug Resistant Organisms: MRSA Date of last positivie culture/infection: 11/23/20 MDRO Source:: FOOT MRSA Past Surgical History: Cholecystectomy, Heart Catheterization, Heart Pia terization With Stent, Tonsillectomy Additional Past Surgical History / Comment(s): R heel I&D, colonoscopy. Past Anesthesia/Blood Transfusion Reactions: No Reported Reaction Date of Last Stent Placement:: 2011 Past Psychological History: Anxiety, Bipolar, Depression Additional Psychological History / Comment(s): Pt states he lives with his brother. Pt ambulates with a walker. He uses rides thru insurance. Case management/social workers are involved in pt's care Smoking Status: Current every day smoker Past Alcohol Use History: None Reported Additional Past Alcohol Use History / Comment(s): Pt started smoking in 1976. Pt states he has hx of heavy alcohol use but states none for years Past Drug Use History: Marijuana Additional Drug Use History / Comment(s): Marijuana occasionally. pt stated he had ICE on 02/24/2020 - Past Family History Mother Family Medical History: Cancer Father Family Medical History: Coronary Artery Disease (CAD), Diabetes Mellitus, Hypertension Medications and Allergies Home Medications Medication Instructions Recorded Confirmed Type Aspirin 81 mg PO DAILY 90 Days #90 tab 04/22/23 05/20/23 Rx Atorvastatin [Lipitor] 40 mg PO HS 90 Days #90 tab 04/22/23 05/20/23 Rx Dapagliflozin Propanediol [Farxiga] 10 mg PO DAILY 30 Days #30 tab 04/22/23 05/20/23 Rx Isosorbide Dinitrate [Isordil] 20 mg PO TID 90 Days #180 tab 04/22/23 05/20/23 Rx Metoprolol Succinate (ER) [Toprol 25 mg PO DAILY 90 Days #90 tab 04/22/23 05/20/23 Rx XL] Pantoprazole [Protonix] 40 mg PO AC-BID 90 Days #180 tab 04/22/23 05/20/23 Rx Spironolactone [Aldactone] 25 mg PO DAILY 90 Days #90 tab 04/22/23 05/20/23 Rx Albuterol Sulfate [Ventolin HFA] 1 - 2 puff INHALATION RT-Q6H PRN 05/20/23 05/20/23 History Fluticasone Propion/Salmeterol 1 puff INHALATION RT-BID 05/20/23 05/20/23 History [Advair 250-50 Diskus] HYDROcodone/APAP 10-325MG [[place] 1 tab PO QID 05/20/23 05/20/23 History 10-325] Ipratropium-Albuterol Nebulize 3 ml INHALATION DIRECTED 05/20/23 05/20/23 History [Duoneb 0.5 mg-3 mg/3 ml Soln] Tiotropium 2.5 Mcg/Puff [Spiriva 2 puff INHALATION RT-DAILY 05/20/23 05/20/23 History Respimat 2.5 Mcg] Calamine/Zinc Oxide Lotion 1 applic TOPICAL DAILY each 05/31/23 Rx [Calamine Lotion] Folic Acid 1 mg PO DAILY 30 Days #30 tab 05/31/23 Rx hydrALAZINE HCL [Apresoline] 10 mg PO TID 30 Days #90 tab 05/31/23 Rx hydrOXYzine HCL [Atarax] 25 mg PO TID PRN 30 Days #90 tab 05/31/23 Rx metOLazone [Zaroxolyn] 5 mg PO DAILY 30 Days #30 tab 05/31/23 Rx Allergies Allergy/AdvReac Type Severity Reaction Status Date / Time Penicillins Allergy Unknown Verified 05/20/23 19:54 Childhood metformin AdvReac Mild Nausea Verified 05/20/23 19:54 Physical Exam Vitals: Vital Signs Temp Pulse Pulse Resp BP BP Pulse Ox 07/22/23 08:30 97.9 F 77 16 150/79 93 L 07/22/23 06:57 90 16 150/68 98 07/22/23 05:45 98.4 F 77 18 155/90 98 07/22/23 04:56 92 18 173/84 98 07/22/23 02:40 98 07/22/23 02:30 96 22 170/91 98 07/22/23 01:30 98 07/22/23 01:26 98.8 F 108 H 26 H 169/125 95 Intake and Output 07/21/23 07/22/23 07/22/23 22:59 06:59 14:59 Output Total 300 Balance -300 Output: Urine 300 Other: Weight 84.368 kg 84.368 kg Results 07/22/23 01:50 07/22/23 02:57 Cardiac Enzymes 07/22/23 07/22/23 Range/Units 01:50 01:50 AST 57 (17-59) U/L Troponin I 0.149 H* (0.000-0.034) ng/mL Coagulation 07/22/23 Range/Units 01:50 PT 11.5 (10.0-12.5) sec APTT 26.3 (22.0-30.0) sec CBC 07/22/23 Range/Units 01:50 WBC 4.6 (3.8-10.6) k/uL RBC 3.99 L (4.30-5.90) m/uL Hgb 11.7 L (13.0-17.5) gm/dL Hct 37.2 L (39.0-53.0) % Plt Count 131 L (150-450) k/uL Comprehensive Metabolic Panel 07/22/23 07/22/23 Range/Units 01:50 02:57 Sodium 133 L (137-145) mmol/L Potassium 5.9 H (3.5-5.1) mmol/L Chloride 107 (98-107) mmol/L Carbon Dioxide 19 L (22-30) mmol/L BUN 34 H (9-20) mg/dL Creatinine 1.51 H (0.66-1.25) mg/dL Glucose 233 H (74-99) mg/dL Calcium 8.3 L (8.4-10.2) mg/dL AST 57 (17-59) U/L ALT 36 (4-49) U/L Alkaline Phosphatase 123 (38-126) U/L Total Protein 7.2 (6.3-8.2) g/dL Albumin 4.0 (3.5-5.0) g/dL Current Medications Generic Name Dose Route Start Last Admin Trade Name Freq PRN Reason Stop Dose Admin Albuterol/Ipratropium 3 ml 07/22/23 04:00 07/22/23 05:12 Ipratropium-Albuterol 3 Ml Neb INHALATION Not Given RT-Q4H MIRLANDE Furosemide 60 mg 07/22/23 09:00 Furosemide 10 Mg/Ml 10 Ml Vial IV BID MIRALNDE Heparin Sodium (Porcine) 0 unit 07/22/23 03:43 Heparin Sodium 1,000 Un/Ml (10ml Vl) IV PER PROTOCOL PRN Low PTT Protocol Heparin Sodium/Sodium Chloride 250 mls @ 10 mls/hr 07/22/23 03:45 07/22/23 03:54 25,000 unit/ Sodium Chloride IV 11.8528 units/kg/hr .Q24H MIRLANDE 10 mls/hr Administration Protocol 11.8528 UNITS/KG/HR Naloxone HCl 0.2 mg 07/22/23 03:43 Naloxone 0.4 Mg/Ml 1 Ml Vial IV Q2M PRN Opioid Reversal Intake and Output 07/21/23 07/22/23 07/22/23 22:59 06:59 14:59 Output Total 300 Balance -300 Output: Urine 300 Other: Weight 84.368 kg 84.368 kg Patient Weight 07/23/23 06:59 Weight 84.368 kg 07/22/23 01:50 07/22/23 02:57
[2023-07-22 11:41] LABS: Glucose,Whole Blood 389 mg/dL (70-110)
[2023-07-22] MEDS: METOPROLOL SUCCINATE (ER) 25 MG TAB.ER.24H PO SCH (11:45)
[2023-07-22] MEDS: FUROSEMIDE 10 MG/ML 10 ML VIAL IV SCH (11:45)
[2023-07-22] MEDS: DAPAGLIFLOZIN PROPANEDIOL 10 MG TABLET PO SCH (11:47)
[2023-07-22] MEDS: ISOSORBIDE DINITRATE 20 MG TAB PO SCH (11:47)
[2023-07-22] MEDS: ASPIRIN 81 MG PO SCH (11:47)
[2023-07-22] MEDS ORDERED: ALBUTEROL NEBULIZED 2.5 MG/3 ML INHALATION PRN (12:01)
[2023-07-22] MEDS ORDERED: DEXTROSE 50% SYRINGE 50 ML IVP PRN (12:02)
[2023-07-22] MEDS: HYDROcodone/APAP 10-325MG 1 EACH TAB PO SCH (12:07)
[2023-07-22] MEDS: GABAPENTIN 300 MG CAP PO SCH (12:07)
[2023-07-22] MEDS: INSULIN ASPART (NovoLOG) 100 UNIT/ML VIAL SQ SCH (12:11)
[2023-07-22] MEDS: hydrALAZINE HCL 10 MG TAB PO SCH (12:23)
--- NOTE | 2023-07-22 15:02 | CT ---
EXAMINATION TYPE: CT chest wo con DATE OF EXAM: 07/22/2023 COMPARISON: 04/17/2023 HISTORY: Difficulty breathing. CT DLP: 343 mGycm, Automated exposure control for dose reduction was used. CONTRAST: None TECHNIQUE: Axial images were obtained at 5 mm thick sections. Reconstructed images are reviewed on [employer] computer in the coronal plane. FINDINGS: Portion of the thyroid visualized is normal. Small to moderate bilateral pleural effusions are present. Some lower lobe compressive atelectasis is present. Small 1.1 cm area of groundglass opacities at the left apex. Series 205 image 12. Some mild pneumonit is changes in the anterior right upper lung field, image 24. Some streaky atelectasis may be along th e left lateral margin. This has a broad pleural-based contact. Correlate for atelectasis or pneumonia . Small focus of pneumonitis may be within the right midlung. Series 205 image 33 No enlarged mediastinal or hilar adenopathy is evident. The ascending aorta diameter at the level o f the main pulmonary artery is 3.5 cm. The main pulmonary artery diameter at the bifurcation is 2.9 cm. Moderate coronary artery calcification is noted. Limited CT sections are obtained through the upper abdomen. Some celiac axis adenopathy may be presen t. IMPRESSION: 1. Small to moderate bilateral pleural effusions with adjacent compressive atelectasis. 2. Scattered areas of pneumonitis are nonspecific. Correlate for infectious etiology. 3. Some atelectasis or consolidation along the left lateral lung field may be present. This should be followed to clearing. Underlying mass is not excluded.
[2023-07-22] MEDS: SODIUM POLYSTYRENE SULFONATE 15 GM/60 ML BOTTLE PO ONE (15:28)
[2023-07-22] MEDS: methylPREDNISolone SOD SUCCI 40 MG/ML 1 ML VIAL IV SCH (15:28)
[2023-07-22] MEDS: HEPARIN SODIUM,PORCINE 5,000 UNIT/ML 1 ML VIAL SQ SCH (15:28)
[2023-07-22] MEDS: hydrALAZINE HCL 25 MG TAB PO SCH (15:29)
[2023-07-22 16:50] LABS: Glucose,Whole Blood 354 mg/dL (70-110)
[2023-07-22] MEDS: MORPHINE SULFATE 2 MG/ML SYRINGE IVP PRN (19:43)
[2023-07-22 20:16] LABS: Glucose,Whole Blood 293 mg/dL (70-110)
[2023-07-22] MEDS: AZITHROMYCIN 500 MG in SODIUM CHLORIDE 0.9% 250 ML IVPB SCH (21:52)
[2023-07-22] MEDS: ATORVASTATIN 40 MG TAB PO SCH (21:53)
[2023-07-22] MEDS: INSULIN DETEMIR (LEVEMIR) 100 UNIT/ML SYR SQ SCH (21:54)
[2023-07-23 06:03] LABS: Glucose,Whole Blood 270 mg/dL (70-110)
[2023-07-23 08:16] LABS: Basophils % (A) 0 %; Eosinophils % (A) 0 %; HCT 33.1 % (39.0-53.0); HGB 10.3 gm/dL (13.0-17.5); Hypochromasia Moderate; Lymphocytes # (A) 0.4 k/uL (1.0-4.8); Lymphocytes % (A) 6 %; MCH 28.8 pg (25.0-35.0); MCHC 31.2 g/dL (31.0-37.0); MCV 92.3 fL (80.0-100.0); Mean Platelet Volume 10.3; Monocytes # (A) 0.1 k/uL (0-1.0); Monocytes % (A) 2 %; Neutrophils # (A) 5.9 k/uL (1.3-7.7); Neutrophils % (A) 91 %; Platelet Count 124 k/uL (150-450); RBC 3.59 m/uL (4.30-5.90); RDW 14.6 % (11.5-15.5); WBC 6.5 k/uL (3.8-10.6)
[2023-07-23 08:20] LABS: INR 1.1 (<1.2); Prothrombin Time 12.2 sec (10.0-12.5)
[2023-07-23 08:45] LABS: ALT 26 U/L (4-49); AST 25 U/L (17-59); African American GFR (CKD) 53 (>60 ml/min/1.73 sqM); Albumin 3.2 g/dL (3.5-5.0); Alkaline Phosphatase 108 U/L (38-126); Anion Gap 7 mmol/L; Blood Urea Nitrogen 49 mg/dL (9-20); Calcium 8.2 mg/dL (8.4-10.2); Carbon Dioxide 22 mmol/L (22-30); Chloride 102 mmol/L (98-107); Glucose 228 mg/dL (74-99); Non-African American GFR(CKD) 46 (>60 ml/min/1.73 sqM); Potassium 5.3 mmol/L (3.5-5.1); Sodium 131 mmol/L (137-145); Total Bilirubin 0.5 mg/dL (0.2-1.3); Total Protein 5.8 g/dL (6.3-8.2)
--- NOTE | 2023-07-23 11:16 | P.PN ---
Subjective HISTORY OF PRESENT ILLNESS: This is a 63-year-old male with a past medical history significant for coronary artery disease with previous stenting, ischemic cardiomyopathy, hypertension, hyperlipidemia, nicotine dependence, and former alcohol abuse. Patient has not followed in the office since 2015, however at that time he saw Dr. Soni. We have been asked to see the patient in consultation for CHF. Patient examined at the bedside in the emergency room. Patient presented to the hospital yesterday with a chief complaint of shortness of breath. He states he has been feeling short of breath for the past few days at home. He reports home oxygen use and states he utilizes O2 /. He reports increased lower extremity edema and also increa sed abdominal bloating. He reports a weight gain of about 12 pounds over the past week. The patient states he has been taking his medications as prescribed until recently when he began to run out of some of them. He is unsure which ones he ran out of but he believes one of them is a diuretic and another 1 is a blood pressure pill. He reports an episode of chest pain yesterday at home after walking to the bathroom. He states the pain lasted for about 2 minutes and then resolved on its own. He denies any further episodes of chest pain or pressure since that time. The patient reports he has not smoked in 2 or 3 months. He also reports he has not drank alcohol in over 30 years. Patient's blood pressure is elevated at the time of examination with a systolic in the 150s. Bedside telemetry reveals sinus mechanism with a heart rate in the 70s. DIAGNOSTICS: EKG reveals sinus mechanism with T wave inversions in inferior leads and V5V6, similar to previous EKG Chest xray mild CHF. Bilateral pleural effusions. Worse on the left. Laboratory data: Sodium 133. Potassium 5.9. However specimen is hemolyzed. BUN 34. Creatinine 1.51. Troponin 0.149. proBNP 25,700. Current home cardiac medications include medication list is not updated at the time of dictation Most recent echocardiogram obtained in March 2023 revealed ejection fraction 20 to 25%, mild to moderate TR, trace MR, and calcified aortic valve without significant stenosis Cardiac catheterization history: January 2016 revealing intermediate in-stent restenosis of the RCA, mild to moderate nonobstructive coronary artery disease involving the left coronary system, normal left ventricular systolic function. 07/23/2023 Patient examined this morning at the bedside. Patient complains of back pain this morning. He continues to report SOB. He remains on IV lasix. He continues to be volume overloaded. Creatinine today 1.57. BUN 49. Blood pressure remains elevated although improved from yesterday. PHYSICAL EXAM: VITAL SIGNS: Reviewed. GENERAL: Well-developed in no acute distress. HEENT: Head is normocephalic. Pupils are equal, round. Sclerae anicteric. Mucous membranes of the mouth are moist. Neck supple. No JVD or thyromegaly LUNGS: Respirations even and unlabored. Lungs diminished at the bases with bib asilar crackles HEART: Regular rate and rhythm. S1 and S2 heard. Soft systolic murmur noted. ABDOMEN: Distended, improving EXTREMITIES: Normal range of motion. No clubbing or cyanosis. Peripheral pulses intact. 2-3+ bilateral pitting lower extremity edema NEUROLOGIC: Awake and alert. Oriented x 3. ASSESSMENT: Shortness of breath Acute on chronic heart failure with reduced ejection fraction, 25%, proBNP 25,700 Elevated troponin, suspect secondary to type II [place] secondary to oxygen supply d emand mismatch Coronary artery disease with previous stenting of the RCA Mild to moderate nonobstructive CAD involving left coronary system Ischemic cardiomyopathy Chronic kidney disease Chronic hypoxic respiratory failure on home O2, 20/01 History of COPD Hypertension Hyperlipidemia Former nicotine dependence, patient quit smoking 2 to 3 months ago Former alcohol abuse, patient states he has not drank in 30 years History of medication noncompliance PLAN: Continue IV Lasix 60mg twice a day Daily weights, accurate I&O, and monitoring of kidney function Continue additional cardiac medications Medication compliance reinforced with patient. Patient is agreeable to follow- up in the office postdischarge as long as he can arrange transportation. Further recommendations pending patient course Nurse practitioner note has been reviewed by physician. Signing provider agrees with the documented findings, assessment, and plan of care. Objective - Vital Signs Vital signs: Vital Signs Temp 97.7 F 07/23/23 08:00 Pulse 82 07/23/23 08:45 Resp 22 07/23/23 08:00 BP 152/79 07/23/23 08:00 Pulse Ox 100 07/23/23 08:02 FiO2 Intake & Output 07/22/23 07/23/23 07/23/23 18:59 06:59 18:59 Intake Total 368 482 Output Total 1750 540 Balance -1382 -540 482 Weight 84.368 kg 80.9 kg Intake: IV 10 Invasive Line 2 10 Oral 368 472 Output: Urine 1750 540 Other: Voiding Method Toilet Toilet Toilet - Labs CBC & Chem 7: 07/23/23 07:11 07/23/23 07:11 Labs: Abnormal Lab Results - Last 24 Hours (Table) 07/22/23 07/22/23 07/22/23 Range/Units 09:31 11:39 16:49 RBC (4.30-5.90) m/uL Hgb (13.0-17.5) gm/dL Hct (39.0-53.0) % Plt Count (150-450) k/uL Lymphocytes # (1.0-4.8) k/uL D-Dimer 1.01 H (<0.60) mg/L FEU Sodium (137-145) mmol/L Potassium (3.5-5.1) mmol/L BUN (9-20) mg/dL Creatinine (0.66-1.25) mg/dL Glucose (74-99) mg/dL POC Glucose (mg/dL) 389 H 354 H (70-110) mg/dL Calcium (8.4-10.2) mg/dL Total Protein (6.3-8.2) g/dL Albumin (3.5-5.0) g/dL 07/22/23 07/23/23 07/23/23 Range/Units 20:15 06:01 07:11 RBC 3.59 L (4.30-5.90) m/uL Hgb 10.3 L (13.0-17.5) gm/dL Hct 33.1 L (39.0-53.0) % Plt Count 124 L (150-450) k/uL Lymphocytes # 0.4 L (1.0-4.8) k/uL D-Dimer (<0.60) mg/L FEU Sodium (137-145) mmol/L Potassium (3.5-5.1) mmol/L BUN (9-20) mg/dL Creatinine (0.66-1.25) mg/dL Glucose (74-99) mg/dL POC Glucose (mg/dL) 293 H 270 H (70-110) mg/dL Calcium (8.4-10.2) mg/dL Total Protein (6.3-8.2) g/dL Albumin (3.5-5.0) g/dL 07/23/23 Range/Units 07:11 RBC (4.30-5.90) m/uL Hgb (13.0-17.5) gm/dL Hct (39.0-53.0) % Plt Count (150-450) k/uL Lymphocytes # (1.0-4.8) k/uL D-Dimer (<0.60) mg/L FEU Sodium 131 L (137-145) mmol/L Potassium 5.3 H (3.5-5.1) mmol/L BUN 49 H (9-20) mg/dL Creatinine 1.57 H (0.66-1.25) mg/dL Glucose 228 H (74-99) mg/dL POC Glucose (mg/dL) (70-110) mg/dL Calcium 8.2 L (8.4-10.2) mg/dL Total Protein 5.8 L (6.3-8.2) g/dL Albumin 3.2 L (3.5-5.0) g/dL
[2023-07-23 11:47] LABS: Glucose,Whole Blood 373 mg/dL (70-110)
[2023-07-23] MEDS: hydrOXYzine HCL 25 MG TAB PO PRN (14:08)
[2023-07-23] MEDS: FLUTICASONE 50MCG/SPRAY NASAL 16GM EA NOSTRIL SCH (15:58)
[2023-07-23 17:01] LABS: Glucose,Whole Blood 327 mg/dL (70-110)
[2023-07-23 20:32] LABS: Glucose,Whole Blood 399 mg/dL (70-110)
--- NOTE | 2023-07-24 01:39 | PN ---
PROGRESS NOTE SUBJECTIVE: The patient remains on broad-spectrum antibiotics. He is preop, he has aspiration pneumonia, COPD, CHF. CT of the chest shows pleural effusion with compressive atelectasis, pulmonary artery elevated, moderate coronary artery calcification. Prognosis guarded. OBJECTIVE: PSYCH: Fair mood and affect. NEUROLOGIC: Alert and oriented x3. Continue PT, OT, antibiotics, nebulizers. Continue current treatment. Follow up pressors for 48 hours. Prognosis guarded. MMODL / IJN: [id number] /
[2023-07-24 06:13] LABS: Glucose,Whole Blood 268 mg/dL (70-110)
[2023-07-24 07:48] LABS: Basophils % (A) 0 %; Eosinophils % (A) 0 %; HCT 33.3 % (39.0-53.0); HGB 10.4 gm/dL (13.0-17.5); Hypochromasia Moderate; Lymphocytes # (A) 0.3 k/uL (1.0-4.8); Lymphocytes % (A) 5 %; MCH 28.9 pg (25.0-35.0); MCHC 31.2 g/dL (31.0-37.0); MCV 92.9 fL (80.0-100.0); Monocytes # (A) 0.2 k/uL (0-1.0); Monocytes % (A) 4 %; Neutrophils # (A) 5.7 k/uL (1.3-7.7); Neutrophils % (A) 91 %; Platelet Count 130 k/uL (150-450); RBC 3.58 m/uL (4.30-5.90); RDW 14.6 % (11.5-15.5); WBC 6.3 k/uL (3.8-10.6)
[2023-07-24 08:27] LABS: Potassium 5.7 mmol/L (3.5-5.1)
[2023-07-24 08:28] LABS: ALT 26 U/L (4-49); AST 23 U/L (17-59); African American GFR (CKD) 49 (>60 ml/min/1.73 sqM); Albumin 3.4 g/dL (3.5-5.0); Alkaline Phosphatase 104 U/L (38-126); Anion Gap 7 mmol/L; Blood Urea Nitrogen 66 mg/dL (9-20); Calcium 8.2 mg/dL (8.4-10.2); Carbon Dioxide 25 mmol/L (22-30); Chloride 101 mmol/L (98-107); Glucose 224 mg/dL (74-99); Non-African American GFR(CKD) 42 (>60 ml/min/1.73 sqM); Sodium 133 mmol/L (137-145); Total Bilirubin 0.4 mg/dL (0.2-1.3)
--- NOTE | 2023-07-24 08:52 | XR ---
EXAMINATION TYPE: XR chest 1V portable DATE OF EXAM: 07/24/2023 Comparison: 07/22/2023 Clinical History: 63-year-old male shortness of breath, follow up imaging Findings: Heart mildly enlarged. Small to moderate left and small right pleural effusions persist. Mild interst itial density shows slight improvement. Impression: Pulmonary vascular congestion appears to be improving. However, there are ongoing small to moderate l eft and small right pleural effusions with adjacent atelectasis and/or consolidation.
--- NOTE | 2023-07-24 09:24 | US ---
EXAMINATION TYPE: US abdomen limited DATE OF EXAM: 07/24/2023 COMPARISON: NONE CLINICAL INDICATION: Male, 63 years old with history of assess for ascites; Pt states ABD distention Technique: Grayscale imaging of the abdomen for fluid. FINDINGS: No sizeable fluid pocket visualized within abdomen IMPRESSION: No and drainable ascites identified.
--- NOTE | 2023-07-24 10:03 | P.PN ---
Subjective HISTORY OF PRESENT ILLNESS: This is a 63-year-old male with a past medical history significant for coronary artery disease with previous stenting, ischemic cardiomyopathy, hypertension, hyperlipidemia, nicotine dependence, and former alcohol abuse. Patient has not followed in the office since 2015, however at that time he saw Dr. Soni. We have been asked to see the patient in consultation for CHF. Patient examined at the bedside in the emergency room. Patient presented to the hospital yesterday with a chief complaint of shortness of breath. He states he has been feeling short of breath for the past few days at home. He reports home oxygen use and states he utilizes O2 /. He reports increased lower extremity edema and also increa sed abdominal bloating. He reports a weight gain of about 12 pounds over the past week. The patient states he has been taking his medications as prescribed until recently when he began to run out of some of them. He is unsure which ones he ran out of but he believes one of them is a diuretic and another 1 is a blood pressure pill. He reports an episode of chest pain yesterday at home after walking to the bathroom. He states the pain lasted for about 2 minutes and then resolved on its own. He denies any further episodes of chest pain or pressure since that time. The patient reports he has not smoked in 2 or 3 months. He also reports he has not drank alcohol in over 30 years. Patient's blood pressure is elevated at the time of examination with a systolic in the 150s. Bedside telemetry reveals sinus mechanism with a heart rate in the 70s. DIAGNOSTICS: EKG reveals sinus mechanism with T wave inversions in inferior leads and V5V6, similar to previous EKG Chest xray mild CHF. Bilateral pleural effusions. Worse on the left. Laboratory data: Sodium 133. Potassium 5.9. However specimen is hemolyzed. BUN 34. Creatinine 1.51. Troponin 0.149. proBNP 25,700. Current home cardiac medications include medication list is not updated at the time of dictation Most recent echocardiogram obtained in March 2023 revealed ejection fraction 20 to 25%, mild to moderate TR, trace MR, and calcified aortic valve without significant stenosis Cardiac catheterization history: January 2016 revealing intermediate in-stent restenosis of the RCA, mild to moderate nonobstructive coronary artery disease involving the left coronary system, normal left ventricular systolic function. 07/23/2023 Patient examined this morning at the bedside. Patient complains of back pain this morning. He continues to report SOB. He remains on IV lasix. He continues to be volume overloaded. Creatinine today 1.57. BUN 49. Blood pressure remains elevated although improved from yesterday. July 24, 2023 Patient examined this morning at bedside. Patient denies chest pain or pressure. He continues to report shortness of breath, although improved from yesterday. Remains on IV diuretics. Kidney function remained stable today. Creatinine 1.69. He continues to have abdominal distention, although improving. Vital signs are stable. Most recent blood pressure 147/49. PHYSICAL EXAM: VITAL SIGNS: Reviewed. GENERAL: Well-developed in no acute distress. HEENT: Head is normocephalic. Pupils are equal, round. Sclerae anicteric. Mucous membranes of the mouth are moist. Neck supple. No JVD or thyromegaly LUNGS: Respirations even and unlabored. Lungs diminished at the bases HEART: Regular rate and rhythm. S1 and S2 heard. Soft systolic murmur noted. ABDOMEN: Distended, improving EXTREMITIES: Normal range of motion. No clubbing or cyanosis. Peripheral pulses intact. 2+ bilateral pitting lower extremity edema NEUROLOGIC: Awake and alert. Oriented x 3. ASSESSMENT: Shortness of breath Acute on chronic heart failure with reduced ejection fraction, 25%, proBNP 25,700 Elevated troponin, suspect secondary to type II [place] secondary to oxygen supply demand mismatch Coronary artery disease with previous stenting of the RCA Mild to moderate nonobstructive CAD involving left coronary system Ischemic cardiomyopathy Chronic kidney disease Chronic hypoxic respiratory failure on home O2, 20/01 History of COPD Hypertension Hyperlipidemia History of ascites with previous paracentesis, x 4 per patient Former nicotine dependence, patient quit smoking 2 to 3 months ago Former alcohol abuse, patient states he has not drank in 30 years History of medication noncompliance PLAN: Continue IV Lasix 60mg twice a day Daily weights, accurate I&O, and monitoring of kidney function Continue additional cardiac medications Medication compliance reinforced with patient. Patient is agreeable to follow- up in the office postdischarge as long as he can arrange transportation. Obtain abdominal ultrasound to assess for ascites Further recommendations pending patient course Nurse practitioner note has been reviewed by physician. Signing provider agrees with the documented findings, assessment, and plan of care. Objective - Vital Signs Vital signs: Vital Signs Temp 97.7 F 07/24/23 08:00 Pulse 76 07/24/23 09:40 Resp 18 07/24/23 08:00 BP 147/49 07/24/23 08:00 Pulse Ox 100 07/24/23 08:00 FiO2 Intake & Output 07/23/23 07/24/23 07/24/23 18:59 06:59 18:59 Intake Total 964 472 120 Balance 964 472 120 Weight 82.1 kg Intake: IV 20 20 Invasive Line 2 20 20 Oral 944 452 120 Other: Voiding Method Toilet Toilet # Voids 6 - Labs CBC & Chem 7: 07/24/23 07:18 07/24/23 07:18 Labs: Abnormal Lab Results - Last 24 Hours (Table) 07/23/23 07/23/23 07/23/23 Range/Units 07:11 11:44 16:57 RBC (4.30-5.90) m/uL Hgb (13.0-17.5) gm/dL Hct (39.0-53.0) % Plt Count (150-450) k/uL Lymphocytes # (1.0-4.8) k/uL Sodium (137-145) mmol/L Potassium (3.5-5.1) mmol/L BUN (9-20) mg/dL Creatinine (0.66-1.25) mg/dL Glucose (74-99) mg/dL POC Glucose (mg/dL) 373 H 327 H (70-110) mg/dL Hemoglobin A1c 8.8 H (<=6.0) % Calcium (8.4-10.2) mg/dL Total Protein (6.3-8.2) g/dL Albumin (3.5-5.0) g/dL 07/23/23 07/24/23 07/24/23 Range/Units 20:31 06:11 07:18 RBC 3.58 L (4.30-5.90) m/uL Hgb 10.4 L (13.0-17.5) gm/dL Hct 33.3 L (39.0-53.0) % Plt Count 130 L (150-450) k/uL Lymphocytes # 0.3 L (1.0-4.8) k/uL Sodium (137-145) mmol/L Potassium (3.5-5.1) mmol/L BUN (9-20) mg/dL Creatinine (0.66-1.25) mg/dL Glucose (74-99) mg/dL POC Glucose (mg/dL) 399 H 268 H (70-110) mg/dL Hemoglobin A1c (<=6.0) % Calcium (8.4-10.2) mg/dL Total Protein (6.3-8.2) g/dL Albumin (3.5-5.0) g/dL 07/24/23 Range/Units 07:18 RBC (4.30-5.90) m/uL Hgb (13.0-17.5) gm/dL Hct (39.0-53.0) % Plt Count (150-450) k/uL Lymphocytes # (1.0-4.8) k/uL Sodium 133 L (137-145) mmol/L Potassium 5.7 H (3.5-5.1) mmol/L BUN 66 H (9-20) mg/dL Creatinine 1.69 H (0.66-1.25) mg/dL Glucose 224 H (74-99) mg/dL POC Glucose (mg/dL) (70-110) mg/dL Hemoglobin A1c (<=6.0) % Calcium 8.2 L (8.4-10.2) mg/dL Total Protein 6.0 L (6.3-8.2) g/dL Albumin 3.4 L (3.5-5.0) g/dL
[2023-07-24 11:39] LABS: Glucose,Whole Blood 280 mg/dL (70-110)
[2023-07-24] MEDS: GABAPENTIN 300 MG CAP PO SCH (13:44)
[2023-07-24 16:32] LABS: Glucose,Whole Blood 429 mg/dL (70-110)
[2023-07-24 20:23] LABS: Glucose,Whole Blood 366 mg/dL (70-110)
--- NOTE | 2023-07-24 21:58 | PN ---
PROGRESS NOTE SUBJECTIVE: The patient is a 63-year-old white male, acute respiratory insufficiency secondary to CHF, COPD. Cardiology got him on IV Lasix due to bilateral pleural effusions, atelectasis, at home IV Lasix. Continue IV Lasix 60 b.i.d., daily weights. Compliance forced, [id number] nonobstructive CAD, elevated troponin secondary to type 2 [place] secondary to oxygen demand mismatch coronary disease BNP is 25,000, ejection fraction 25%, chronic kidney disease, ischemic cardiomyopathy. He has COPD, hypertension, dyslipidemia, history of ascites, nicotine addition, former alcohol abuse. PROGNOSIS: Guarded. Please see further orders. Switch to steroids to oral, cut them down and put him on a little higher insulin as his sugar is high due to steroids. Prognosis guarded. MMODL / IJN: [id number] /
[2023-07-24] MEDS: INSULIN DETEMIR (LEVEMIR) 100 UNIT/ML SYR SQ SCH (22:11)
[2023-07-25 06:15] LABS: Glucose,Whole Blood 294 mg/dL (70-110)
[2023-07-25 08:06] LABS: African American GFR (CKD) 42 (>60 ml/min/1.73 sqM); Anion Gap 9 mmol/L; Blood Urea Nitrogen 81 mg/dL (9-20); Calcium 8.4 mg/dL (8.4-10.2); Carbon Dioxide 22 mmol/L (22-30); Chloride 99 mmol/L (98-107); Glucose 215 mg/dL (74-99); Non-African American GFR(CKD) 36 (>60 ml/min/1.73 sqM); Potassium 5.3 mmol/L (3.5-5.1); Sodium 130 mmol/L (137-145)
[2023-07-25] MEDS: predniSONE 20 MG TAB PO SCH (08:24)
[2023-07-25 11:27] LABS: Glucose,Whole Blood 179 mg/dL (70-110)
--- NOTE | 2023-07-25 13:16 | P.PN ---
Subjective HISTORY OF PRESENT ILLNESS: This is a 63-year-old male with a past medical history significant for coronary artery disease with previous stenting, ischemic cardiomyopathy, hypertension, hyperlipidemia, nicotine dependence, and former alcohol abuse. Patient has not followed in the office since 2015, however at that time he saw Dr. Soni. We have been asked to see the patient in consultation for CHF. Patient examined at the bedside in the emergency room. Patient presented to the hospital yesterday with a chief complaint of shortness of breath. He states he has been feeling short of breath for the past few days at home. He reports home oxygen use and states he utilizes O2 /. He reports increased lower extremity edema and also increa sed abdominal bloating. He reports a weight gain of about 12 pounds over the past week. The patient states he has been taking his medications as prescribed until recently when he began to run out of some of them. He is unsure which ones he ran out of but he believes one of them is a diuretic and another 1 is a blood pressure pill. He reports an episode of chest pain yesterday at home after walking to the bathroom. He states the pain lasted for about 2 minutes and then resolved on its own. He denies any further episodes of chest pain or pressure since that time. The patient reports he has not smoked in 2 or 3 months. He also reports he has not drank alcohol in over 30 years. Patient's blood pressure is elevated at the time of examination with a systolic in the 150s. Bedside telemetry reveals sinus mechanism with a heart rate in the 70s. DIAGNOSTICS: EKG reveals sinus mechanism with T wave inversions in inferior leads and V5V6, similar to previous EKG Chest xray mild CHF. Bilateral pleural effusions. Worse on the left. Laboratory data: Sodium 133. Potassium 5.9. However specimen is hemolyzed. BUN 34. Creatinine 1.51. Troponin 0.149. proBNP 25,700. Current home cardiac medications include medication list is not updated at the time of dictation Most recent echocardiogram obtained in March 2023 revealed ejection fraction 20 to 25%, mild to moderate TR, trace MR, and calcified aortic valve without significant stenosis Cardiac catheterization history: January 2016 revealing intermediate in-stent restenosis of the RCA, mild to moderate nonobstructive coronary artery disease involving the left coronary system, normal left ventricular systolic function. 07/23/2023 Patient examined this morning at the bedside. Patient complains of back pain this morning. He continues to report SOB. He remains on IV lasix. He continues to be volume overloaded. Creatinine today 1.57. BUN 49. Blood pressure remains elevated although improved from yesterday. July 24, 2023 Patient examined this morning at bedside. Patient denies chest pain or pressure. He continues to report shortness of breath, although improved from yesterday. Remains on IV diuretics. Kidney function remained stable today. Creatinine 1.69. He continues to have abdominal distention, although improving. Vital signs are stable. Most recent blood pressure 147/49. July 25, 2023 Patient examined this morning at the bedside. Patient denies chest pain or pressure. He continues to report shortness of breath. Creatinine today is increased from 1.6-1.9. He is currently on 60 mg of Lasix twice a day. Telemetry reveals sinus mechanism. Abdominal ultrasound was performed with out evidence for significant ascites PHYSICAL EXAM: VITAL SIGNS: Reviewed. GENERAL: Well-developed in no acute distress. HEENT: Head is normocephalic. Pupils are equal, round. Sclerae anicteric. Mucous membranes of the mouth are moist. Neck supple. No JVD or thyromegaly LUNGS: Respirations even and unlabored. Lungs diminished at the bases HEART: Regular rate and rhythm. S1 and S2 heard. Soft systolic murmur noted. ABDOMEN: Distended, improving EXTREMITIES: Normal range of motion. No clubbing or cyanosis. Peripheral pulses intact. 2+ bilateral pitting lower extremity edema NEUROLOGIC: Awake and alert. Oriented x 3. ASSESSMENT: Shortness of breath Acute on chronic heart failure with reduced ejection fraction, 25%, proBNP 25,700 Elevated troponin, suspect secondary to type II [place] secondary to oxygen supply demand mismatch Coronary artery disease with previous stenting of the RCA Mild to moderate nonobstructive CAD involving left coronary system Ischemic cardiomyopathy Acute on chronic kidney disease Chronic hypoxic respiratory failure on home O2, 24/ History of COPD Hypertension Hyperlipidemia History of ascites with previous paracentesis, x 4 per patient Former nicotine dependence, patient quit smoking 2 to 3 months ago Former alcohol abuse, patient states he has not drank in 30 years History of medication noncompliance PLAN: Continue IV Lasix. Decrease dosage to 40 mg twice daily due to increasing creatinine Daily weights, accurate I&O, and monitoring of kidney function Continue additional cardiac medications Medication compliance reinforced with patient. Patient is agreeable to follow- up in the office postdischarge as long as he can arrange transportation. Further recommendations pending patient course Nurse practitioner note has been reviewed by physician. Signing provider agrees with the documented findings, assessment, and plan of care. Objective - Vital Signs Vital signs: Vital Signs Temp 97.7 F 07/25/23 11:02 Pulse 78 07/25/23 12:58 Resp 16 07/25/23 11:02 BP 137/69 07/25/23 11:02 Pulse Ox 99 07/25/23 11:02 FiO2 Intake & Output 07/24/23 07/25/23 07/25/23 18:59 06:59 18:59 Intake Total 620 222 Balance 620 222 Weight 84.6 kg Intake: IV 20 Invasive Line 2 20 Oral 600 222 Other: Voiding Method Toilet Toilet Toilet - Labs CBC & Chem 7: 07/24/23 07:18 07/25/23 07:16 Labs: Abnormal Lab Results - Last 24 Hours (Table) 07/24/23 07/24/23 07/25/23 Range/Units 16:31 20:22 06:14 Sodium (137-145) mmol/L Potassium (3.5-5.1) mmol/L BUN (9-20) mg/dL Creatinine (0.66-1.25) mg/dL Glucose (74-99) mg/dL POC Glucose (mg/dL) 429 H 366 H 294 H (70-110) mg/dL 07/25/23 07/25/23 Range/Units 07:16 11:25 Sodium 130 L (137-145) mmol/L Potassium 5.3 H (3.5-5.1) mmol/L BUN 81 H (9-20) mg/dL Creatinine 1.91 H (0.66-1.25) mg/dL Glucose 215 H (74-99) mg/dL POC Glucose (mg/dL) 179 H (70-110) mg/dL
[2023-07-25 16:27] LABS: Glucose,Whole Blood 324 mg/dL (70-110)
--- NOTE | 2023-07-25 17:00 | CDI ---
Documentation Clarification Form Date: 07/25/2023 04:22:53 PM From: Angeles Pina RN, CCDS Phone: [phone] Admit Date: 07/22/2023 03:45:00 AM Patient Name: Jacobo Hall Visit Number: [id number] Discharge Date: ATTENTION: The Clinical Documentation Specialists (CDI) and [facility] Coding Staff appreciate your assistance in clarifying documentation. Please respond to the clarification below the line at the bottom and electronically sign. The CDI & [facility] Coding staff will review the response and follow-up if needed. Please note: Queries are made part of the Legal Health Record. If you have any questions, please contact the author of this message via ITS. Dr. Eric Loyola Your patient has a diagnosis of chronic respiratory failure documented in the Cardiology consult and subsequent progress notes. He presents to ED sat's were 95 % on high flow of 15. He is on home O2 at 2/L 20/01. Based on this information and the findings below, is there an additional diagnosis that is clinically appropriate for this patient? History/Risk Factors: Coronary Artery Disease, Heart Failure, COPD, CVA/TIA, Diabetes Mellitus, Hyperlipidemia, Hypertension, Liver Tobacco use: Current every day smoker Home oxygen: 2/L NS 20/01 Clinical Indicators: 63-year-old male with past medical history of CHF with COPD on 2 L home O2 who presents to the emergency department with shortness of breath. Tachypnea. Vital signs: 169/125 108 26 98.8 95 % high flow 02 flow rate15 Pulse oximetry: 95 high flow 15; 98 high flow 6, 98 4/L NC Lung/Breathing assessment: Lungs diminished st the bases with bibasilar crackles. 07/22 CXR: mild CHF. Bilateral pleural effusions, worse on the left. 07/[address]: sm to moderate bilateral pleural effusions with adjacent compressive atelectasis. Scattered areas of pneumonitis are nonspecific. 07/22 Cardiology consult: Acute on chronic heart failure with reduced ejection fraction, 25%, proBNP 25,700 Elevated troponin, suspect secondary to type II [place] secondary to oxygen supply demand mismatch Chronic hypoxic respiratory failure on home O2, 20/01 Treatment: Cardiac/Telemetry monitoring Monitor 2 Sat's (titrate) Daily weight, monitor I/O Lasix 60 MG IV BID 07/22- Lasix 40 MG IV BID 07/25 Solu-Medrol 40 MG IV Q 8 HR 07/22-07/24 DuoNeb Inhalation QID per orders Is there an additional diagnosis that is clinically appropriate for this patient? [ ] Acute on Chronic Hypoxic Respiratory Failure [ ] Other Diagnosis, please specify [ ] Unable to determine (Template Last Revised: June 2023) Please add acute on chronic hypoxemic respiratory failure present on admission. Dictated By: Eric Loyola MD Signed By: DD/ [id number] TD/TT:07/25/23 1950 MTDD
--- NOTE | 2023-07-25 19:57 | PN ---
PROGRESS NOTE Please add acute on chronic hypoxemic respiratory failure present on admission. MMODL / IJN: [id number] /
[2023-07-25 20:16] LABS: Glucose,Whole Blood 503 mg/dL (70-110)
[2023-07-25] MEDS: FUROSEMIDE 10 MG/ML 4 ML VIAL IV SCH (20:38)
--- NOTE | 2023-07-26 01:10 | PN ---
PROGRESS NOTE SUBJECTIVE: This is a 63-year-old white male, remains on Farxiga for diabetes, Lipitor for dyslipidemia, DuoNeb for COPD, Flonase for allergic rhinitis, IV Lasix for CHF per Cardiology, Neurontin for neuropathy, Apresoline for hypertension, Vivian 10 q.i.d. for chronic degenerative disk disease, cataracts for itching 25 q.8h, Levemir 33 units at night, 20 mg t.i.d., Toprol-XL 25 daily, and prednisone 20 mg daily. CONDITION: Stable. PROGNOSIS: Guarded. ACTIVITY: Ambulate as tolerated. OBJECTIVE: VITAL SIGNS: Oxygen sat is 98% on 2 L, blood pressure 137/82, pulse 16 to 18, and temperature 98. GFR is 46. systolics with reduced ejection fraction CHF, he has type 2 ME secondary to oxygen demand supply , [id number] nonobstructive coronary artery disease, ischemic cardiomyopathy, chronic kidney disease, chronic hypoxemic respiratory failure on home O2, history of COPD, hypertension, dyslipidemia, history of ascites, nicotine addiction, alcohol abuse. Continue IV Lasix doses switch to 40 mg q.12, watch kidney function possibly discharge home soon. Watch another day and possibly go home tomorrow, prognosis guarded. MMODL / IJN: [id number] /
[2023-07-26 05:57] LABS: Glucose,Whole Blood 194 mg/dL (70-110)
[2023-07-26 07:15] LABS: African American GFR (CKD) 44 (>60 ml/min/1.73 sqM); Anion Gap 4 mmol/L; Blood Urea Nitrogen 93 mg/dL (9-20); Calcium 8.2 mg/dL (8.4-10.2); Carbon Dioxide 27 mmol/L (22-30); Chloride 98 mmol/L (98-107); Glucose 174 mg/dL (74-99); Non-African American GFR(CKD) 38 (>60 ml/min/1.73 sqM); Potassium 5.2 mmol/L (3.5-5.1); Sodium 129 mmol/L (137-145)
--- NOTE | 2023-07-26 11:40 | P.PN ---
Subjective HISTORY OF PRESENT ILLNESS: This is a 63-year-old male with a past medical history significant for coronary artery disease with previous stenting, ischemic cardiomyopathy, hypertension, hyperlipidemia, nicotine dependence, and former alcohol abuse. Patient has not followed in the office since 2015, however at that time he saw Dr. Soni. We have been asked to see the patient in consultation for CHF. Patient examined at the bedside in the emergency room. Patient presented to the hospital yesterday with a chief complaint of shortness of breath. He states he has been feeling short of breath for the past few days at home. He reports home oxygen use and states he utilizes O2 /. He reports increased lower extremity edema and also increa sed abdominal bloating. He reports a weight gain of about 12 pounds over the past week. The patient states he has been taking his medications as prescribed until recently when he began to run out of some of them. He is unsure which ones he ran out of but he believes one of them is a diuretic and another 1 is a blood pressure pill. He reports an episode of chest pain yesterday at home after walking to the bathroom. He states the pain lasted for about 2 minutes and then resolved on its own. He denies any further episodes of chest pain or pressure since that time. The patient reports he has not smoked in 2 or 3 months. He also reports he has not drank alcohol in over 30 years. Patient's blood pressure is elevated at the time of examination with a systolic in the 150s. Bedside telemetry reveals sinus mechanism with a heart rate in the 70s. DIAGNOSTICS: EKG reveals sinus mechanism with T wave inversions in inferior leads and V5V6, similar to previous EKG Chest xray mild CHF. Bilateral pleural effusions. Worse on the left. Laboratory data: Sodium 133. Potassium 5.9. However specimen is hemolyzed. BUN 34. Creatinine 1.51. Troponin 0.149. proBNP 25,700. Current home cardiac medications include medication list is not updated at the time of dictation Most recent echocardiogram obtained in March 2023 revealed ejection fraction 20 to 25%, mild to moderate TR, trace MR, and calcified aortic valve without significant stenosis Cardiac catheterization history: January 2016 revealing intermediate in-stent restenosis of the RCA, mild to moderate nonobstructive coronary artery disease involving the left coronary system, normal left ventricular systolic function. 07/23/2023 Patient examined this morning at the bedside. Patient complains of back pain this morning. He continues to report SOB. He remains on IV lasix. He continues to be volume overloaded. Creatinine today 1.57. BUN 49. Blood pressure remains elevated although improved from yesterday. July 24, 2023 Patient examined this morning at bedside. Patient denies chest pain or pressure. He continues to report shortness of breath, although improved from yesterday. Remains on IV diuretics. Kidney function remained stable today. Creatinine 1.69. He continues to have abdominal distention, although improving. Vital signs are stable. Most recent blood pressure 147/49. July 25, 2023 Patient examined this morning at the bedside. Patient denies chest pain or pressure. He continues to report shortness of breath. Creatinine today is increased from 1.6-1.9. He is currently on 60 mg of Lasix twice a day. Telemetry reveals sinus mechanism. Abdominal ultrasound was performed with out evidence for significant ascites July 26, 2023 Patient examined this morning at the bedside. Patient denies chest pain or pressure. He currently denies shortness of breath. He complains of continued abdominal bloating this morning and pain with ambulation due to the swelling in his legs. He remains on IV Lasix 40 mg twice a day. Creatinine 1.84 today. PHYSICAL EXAM: VITAL SIGNS: Reviewed. GENERAL: Well-developed in no acute distress. HEENT: Head is normocephalic. Pupils are equal, round. Sclerae anicteric. Mucous membranes of the mouth are moist. Neck supple. No JVD or thyromegaly LUNGS: Respirations even and unlabored. Lungs diminished at the bases HEART: Regular rate and rhythm. S1 and S2 heard. Soft systolic murmur noted. ABDOMEN: Distended, improving EXTREMITIES: Normal range of motion. No clubbing or cyanosis. Peripheral pulses intact. 2+ bilateral pitting lower extremity edema NEUROLOGIC: Awake and alert. Oriented x 3. ASSESSMENT: Shortness of breath Acute on chronic heart failure with reduced ejection fraction, 25%, proBNP 25,700 Elevated troponin, suspect secondary to type II CT secondary to oxygen supply demand mismatch Coronary artery disease with previous stenting of the RCA Mild to moderate nonobstructive CAD involving left coronary system Ischemic cardiomyopathy Acute on chronic kidney disease Chronic hypoxic respiratory failure on home O2, 20/01 History of COPD Hypertension Hyperlipidemia History of ascites with previous paracentesis, x 4 per patient Former nicotine dependence, patient quit smoking 2 to 3 months ago Former alcohol abuse, patient states he has not drank in 30 years History of medication noncompliance Hyponatremia Hyperkalemia PLAN: Continue IV Lasix as patient clinically remains volume overloaded Daily weights, accurate I&O, and monitoring of kidney function Continue additional cardiac medications Medication compliance reinforced with patient. Patient is agreeable to follow- up in the office postdischarge as long as he can arrange transportation. Further recommendations pending patient course Nurse practitioner note has been reviewed by physician. Signing provider agrees with the documented findings, assessment, and plan of care. Objective - Vital Signs Vital signs: Vital Signs Temp 97.8 F 07/26/23 09:57 Pulse 76 07/26/23 09:57 Resp 16 07/26/23 09:57 BP 134/70 07/26/23 09:57 Pulse Ox 99 07/26/23 09:57 FiO2 Intake & Output 07/25/23 07/26/23 07/26/23 18:59 06:59 18:59 Intake Total 360 2040 490 Balance 360 2040 490 Weight 86 kg Intake: IV 10 Invasive Line 2 10 Oral 360 2040 480 Other: Voiding Method Toilet Toilet Toilet # Voids 3 4 - Labs CBC & Chem 7: 07/24/23 07:18 07/26/23 06:33 Labs: Abnormal Lab Results - Last 24 Hours (Table) 07/25/23 07/25/23 07/26/23 Range/Units 16:26 20:14 05:56 Sodium (137-145) mmol/L Potassium (3.5-5.1) mmol/L BUN (9-20) mg/dL Creatinine (0.66-1.25) mg/dL Glucose (74-99) mg/dL POC Glucose (mg/dL) 324 H 503 H 194 H (70-110) mg/dL Calcium (8.4-10.2) mg/dL 07/26/23 Range/Units 06:33 Sodium 129 L (137-145) mmol/L Potassium 5.2 H (3.5-5.1) mmol/L BUN 93 H (9-20) mg/dL Creatinine 1.84 H (0.66-1.25) mg/dL Glucose 174 H (74-99) mg/dL POC Glucose (mg/dL) (70-110) mg/dL Calcium 8.2 L (8.4-10.2) mg/dL
[2023-07-26 12:15] LABS: Glucose,Whole Blood 224 mg/dL (70-110)
[2023-07-26 16:32] LABS: Glucose,Whole Blood 302 mg/dL (70-110)
--- NOTE | 2023-07-26 19:25 | PN ---
PROGRESS NOTE SUBJECTIVE: Came in with congestive heart failure, uncontrolled diabetes mellitus. We added Farxiga for diabetes, told him to follow a good diet. Cardiology added him on Lasix 40 IV b.i.d. due to large abdominal and leg swelling, Toprol-XL for hypertension, DuoNeb 4 times a day, aspirin, Lipitor, NovoLog before meals and at bedtime. Sugars are high and wanted to put him on long-acting insulin and watch his diet. He is on Levemir currently, 30. Sugars are now in the 100s to 200s, it went up to as high as 500 yesterday and currently in the 90s to 100s. Calcium 8.2, potassium 5.2, sodium 129, GFR 38. OBJECTIVE: VITAL SIGNS: Blood pressure is 134/70, O2 of 99%, temp 97.8, pulse 75, respiratory rate 18. ASSESSMENT: Acute on chronic systolic heart failure, chronic obstructive pulmonary disease, pulmonary hypertension with reduced ejection fraction, elevated troponin, coronary artery disease, stented RCA, mild to moderate nonobstructive coronary artery disease, left coronary syndrome, ischemic cardiomyopathy, acute on chronic kidney disease, acute hypoxemic respiratory failure, hypertension. Medication noncompliance. Apparently, he has ascites with previous paracentesis. Nicotine addiction. Hyponatremia. Hyperkalemia. Continue IV Lasix. He is overloaded with water. Continue his cardiac medications. Continue current treatment. We can do some kind of abdominal ultrasound to look for ascites. We already did one on , it showed no ascites. Prognosis guarded. Please see further orders. MMODL / IJN: [id number] /
[2023-07-26 19:54] LABS: Glucose,Whole Blood 251 mg/dL (70-110)
[2023-07-27 06:02] LABS: Glucose,Whole Blood 134 mg/dL (70-110)
[2023-07-27 08:03] LABS: Basophils % (A) 0 %; Eosinophils % (A) 1 %; HCT 31.5 % (39.0-53.0); HGB 9.9 gm/dL (13.0-17.5); Hypochromasia Marked; Lymphocytes # (A) 0.6 k/uL (1.0-4.8); Lymphocytes % (A) 12 %; MCH 28.9 pg (25.0-35.0); MCHC 31.3 g/dL (31.0-37.0); MCV 92.5 fL (80.0-100.0); Mean Platelet Volume 10.4; Monocytes # (A) 0.5 k/uL (0-1.0); Monocytes % (A) 10 %; Neutrophils # (A) 3.5 k/uL (1.3-7.7); Neutrophils % (A) 74 %; Platelet Count 122 k/uL (150-450); RBC 3.41 m/uL (4.30-5.90); RDW 14.5 % (11.5-15.5); WBC 4.8 k/uL (3.8-10.6)
[2023-07-27 08:39] LABS: ALT 43 U/L (4-49); AST 37 U/L (17-59); African American GFR (CKD) 42 (>60 ml/min/1.73 sqM); Albumin 3.6 g/dL (3.5-5.0); Alkaline Phosphatase 81 U/L (38-126); Anion Gap 6 mmol/L; Blood Urea Nitrogen 97 mg/dL (9-20); Calcium 8.4 mg/dL (8.4-10.2); Carbon Dioxide 27 mmol/L (22-30); Chloride 99 mmol/L (98-107); Glucose 107 mg/dL (74-99); Non-African American GFR(CKD) 36 (>60 ml/min/1.73 sqM); Potassium 5.3 mmol/L (3.5-5.1); Sodium 132 mmol/L (137-145); Total Bilirubin 0.4 mg/dL (0.2-1.3); Total Protein 6.2 g/dL (6.3-8.2)
--- NOTE | 2023-07-27 09:51 | P.PN ---
Subjective HISTORY OF PRESENT ILLNESS: This is a 63-year-old male with a past medical history significant for coronary artery disease with previous stenting, ischemic cardiomyopathy, hypertension, hyperlipidemia, nicotine dependence, and former alcohol abuse. Patient has not followed in the office since 2015, however at that time he saw Dr. Soni. We have been asked to see the patient in consultation for CHF. Patient examined at the bedside in the emergency room. Patient presented to the hospital yesterday with a chief complaint of shortness of breath. He states he has been feeling short of breath for the past few days at home. He reports home oxygen use and states he utilizes O2 /. He reports increased lower extremity edema and also increa sed abdominal bloating. He reports a weight gain of about 12 pounds over the past week. The patient states he has been taking his medications as prescribed until recently when he began to run out of some of them. He is unsure which ones he ran out of but he believes one of them is a diuretic and another 1 is a blood pressure pill. He reports an episode of chest pain yesterday at home after walking to the bathroom. He states the pain lasted for about 2 minutes and then resolved on its own. He denies any further episodes of chest pain or pressure since that time. The patient reports he has not smoked in 2 or 3 months. He also reports he has not drank alcohol in over 30 years. Patient's blood pressure is elevated at the time of examination with a systolic in the 150s. Bedside telemetry reveals sinus mechanism with a heart rate in the 70s. DIAGNOSTICS: EKG reveals sinus mechanism with T wave inversions in inferior leads and V5V6, similar to previous EKG Chest xray mild CHF. Bilateral pleural effusions. Worse on the left. Laboratory data: Sodium 133. Potassium 5.9. However specimen is hemolyzed. BUN 34. Creatinine 1.51. Troponin 0.149. proBNP 25,700. Current home cardiac medications include medication list is not updated at the time of dictation Most recent echocardiogram obtained in March 2023 revealed ejection fraction 20 to 25%, mild to moderate TR, trace MR, and calcified aortic valve without significant stenosis Cardiac catheterization history: January 2016 revealing intermediate in-stent restenosis of the RCA, mild to moderate nonobstructive coronary artery disease involving the left coronary system, normal left ventricular systolic function. 07/23/2023 Patient examined this morning at the bedside. Patient complains of back pain this morning. He continues to report SOB. He remains on IV lasix. He continues to be volume overloaded. Creatinine today 1.57. BUN 49. Blood pressure remains elevated although improved from yesterday. July 24, 2023 Patient examined this morning at bedside. Patient denies chest pain or pressure. He continues to report shortness of breath, although improved from yesterday. Remains on IV diuretics. Kidney function remained stable today. Creatinine 1.69. He continues to have abdominal distention, although improving. Vital signs are stable. Most recent blood pressure 147/49. July 25, 2023 Patient examined this morning at the bedside. Patient denies chest pain or pressure. He continues to report shortness of breath. Creatinine today is increased from 1.6-1.9. He is currently on 60 mg of Lasix twice a day. Telemetry reveals sinus mechanism. Abdominal ultrasound was performed with out evidence for significant ascites July 26, 2023 Patient examined this morning at the bedside. Patient denies chest pain or pressure. He currently denies shortness of breath. He complains of continued abdominal bloating this morning and pain with ambulation due to the swelling in his legs. He remains on IV Lasix 40 mg twice a day. Creatinine 1.84 today. July 27, 2023 Patient examined this morning at the bedside. He currently denies chest pain or pressure. He reports improvement in his shortness of breath. He continues to complain of abdominal bloating this morning and lower extremity edema. He remains on IV Lasix 40 mg every 12 hours. Creatinine is stable today at 1.92. Most recent blood pressure 138/80. PHYSICAL EXAM: VITAL SIGNS: Reviewed. GENERAL: Well-developed in no acute distress. HEENT: Head is normocephalic. Pupils are equal, round. Sclerae anicteric. Mucous membranes of the mouth are moist. Neck supple. No JVD or thyromegaly LUNGS: Respirations even and unlabored. Lungs diminished at the bases HEART: Regular rate and rhythm. S1 and S2 heard. Soft systolic murmur noted. ABDOMEN: Distended, improving EXTREMITIES: Normal range of motion. No clubbing or cyanosis. Peripheral pulses intact. 2+ bilateral pitting lower extremity edema NEUROLOGIC: Awake and alert. Oriented x 3. ASSESSMENT: Shortness of breath Acute on chronic heart failure with reduced ejection fraction, 25%, proBNP 25,700 Elevated troponin, suspect secondary to type II [place] secondary to oxygen supply demand mismatch Coronary artery disease with previous stenting of the RCA Mild to moderate nonobstructive CAD involving left coronary system Ischemic cardiomyopathy Acute on chronic kidney disease Chronic hypoxic respiratory failure on home O2, 20/01 History of COPD Hypertension Hyperlipidemia History of ascites with previous paracentesis, x 4 per patient Former nicotine dependence, patient quit smoking 2 to 3 months ago Former alcohol abuse, patient states he has not drank in 30 years History of medication noncompliance Hyponatremia Hyperkalemia PLAN: Continue IV Lasix as patient clinically remains volume overloaded Daily weights, accurate I&O, and monitoring of kidney function Continue additional cardiac medications Medication compliance reinforced with patient. Patient is agreeable to follow- up in the office postdischarge as long as he can arrange transportation. Further recommendations pending patient course Nurse practitioner note has been reviewed by physician. Signing provider agrees with the documented findings, assessment, and plan of care. Objective - Vital Signs Vital signs: Vital Signs Temp 97.8 F 07/27/23 09:08 Pulse 82 07/27/23 09:08 Resp 18 07/27/23 09:08 BP 138/80 07/27/23 09:08 Pulse Ox 99 07/27/23 09:08 FiO2 Intake & Output 07/26/23 07/27/23 07/27/23 18:59 06:59 18:59 Intake Total 1460 959 368 Balance 1460 959 368 Weight 86.3 kg Intake: IV 20 20 10 Invasive Line 2 20 20 10 Oral 1440 939 358 Other: Voiding Method Toilet Toilet # Voids 2 - Labs CBC & Chem 7: 07/27/23 06:53 07/27/23 06:53 Labs: Abnormal Lab Results - Last 24 Hours (Table) 07/26/23 07/26/23 07/26/23 Range/Units 12:03 16:30 19:53 RBC (4.30-5.90) m/uL Hgb (13.0-17.5) gm/dL Hct (39.0-53.0) % Plt Count (150-450) k/uL Lymphocytes # (1.0-4.8) k/uL Sodium (137-145) mmol/L Potassium (3.5-5.1) mmol/L BUN (9-20) mg/dL Creatinine (0.66-1.25) mg/dL Glucose (74-99) mg/dL POC Glucose (mg/dL) 224 H 302 H 251 H (70-110) mg/dL Total Protein (6.3-8.2) g/dL 07/27/23 07/27/23 07/27/23 Range/Units 05:55 06:53 06:53 RBC 3.41 L (4.30-5.90) m/uL Hgb 9.9 L (13.0-17.5) gm/dL Hct 31.5 L (39.0-53.0) % Plt Count 122 L (150-450) k/uL Lymphocytes # 0.6 L (1.0-4.8) k/uL Sodium 132 L (137-145) mmol/L Potassium 5.3 H (3.5-5.1) mmol/L BUN 97 H (9-20) mg/dL Creatinine 1.92 H (0.66-1.25) mg/dL Glucose 107 H (74-99) mg/dL POC Glucose (mg/dL) 134 H (70-110) mg/dL Total Protein 6.2 L (6.3-8.2) g/dL
[2023-07-27 12:02] LABS: Glucose,Whole Blood 270 mg/dL (70-110)
--- NOTE | 2023-07-27 14:21 | PN ---
PROGRESS NOTE Also add ischemic cardiomyopathy, [id number]; nonobstructive coronary artery disease; acute on chronic kidney disease; chronic hypoxemic respiratory failure; COPD; hypertension; dyslipidemia; history of ascites; nicotine addiction; history of alcohol abuse; noncompliance with medicine; hyponatremia; hyperkalemia, improved; acute on chronic systolic and diastolic heart failure; elevated troponin secondary to type 2 [place] secondary to oxygen demand mismatch; coronary artery disease, previous stent to the RCA. MMTRACE / ZHOUN: [id number] /
[2023-07-27 16:46] LABS: Glucose,Whole Blood 312 mg/dL (70-110)
--- NOTE | 2023-07-27 17:52 | PN ---
PROGRESS NOTE DuoNeb with breathing treatments, Lipitor for cholesterol, Farxiga for diabetes, Flonase for allergic rhinitis, Lasix IV for CHF per Cardiology, heparin subcu, Apresoline for hypertension, Levemir 30 and NovoLog for his diabetes, Toprol-XL 25 daily for pain control. Hemoglobin is 9.9. Sodium 132, potassium 5.3, BUN is 97, creatinine 1.92, GFR is 36. Sugars about 134 and 270 . Plan is to continue current treatment. Await for Cardiology possibly to adjust medications for CHF and possible discharge home next day or 2. So, his large third spacing of fluid in his abdomen and his legs with large amount of edema. He is on IV Lasix. Ultrasound of his belly shows no ascitic fluid for tapping. His liver enzymes are okay. Prognosis guarded. MMODL / IJN: [id number] /
[2023-07-27 20:10] LABS: Glucose,Whole Blood 303 mg/dL (70-110)
[2023-07-28 00:23] LABS: Glucose,Whole Blood 189 mg/dL (70-110)
[2023-07-28 05:55] LABS: Glucose,Whole Blood 80 mg/dL (70-110)
[2023-07-28 10:53] LABS: African American GFR (CKD) 44 (>60 ml/min/1.73 sqM); Anion Gap 4 mmol/L; Calcium 8.3 mg/dL (8.4-10.2); Carbon Dioxide 30 mmol/L (22-30); Chloride 100 mmol/L (98-107); Glucose 156 mg/dL (74-99); Non-African American GFR(CKD) 38 (>60 ml/min/1.73 sqM); Potassium 4.8 mmol/L (3.5-5.1); Sodium 134 mmol/L (137-145)
[2023-07-28 11:00] LABS: Blood Urea Nitrogen 105 mg/dL (9-20)
[2023-07-28 11:46] LABS: Glucose,Whole Blood 254 mg/dL (70-110)
[2023-07-28] MEDS: hydrALAZINE HCL 25 MG TAB PO STA (12:01)
[2023-07-28] MEDS: BUMETANIDE 0.25 MG/ML 10 ML VIAL IV SCH (12:01)
[2023-07-28 13:51] VITALS: BMI 27.8
--- NOTE | 2023-07-28 14:20 | P.PN ---
Subjective Progress Note Date: 07/28/23 HISTORY OF PRESENT ILLNESS: This is a 63-year-old male with a past medical history significant for coronary artery disease with previous stenting, ischemic cardiomyopathy, hypertension, hyperlipidemia, nicotine dependence, and former alcohol abuse. Patient has not followed in the office since 2015, however at that time he saw Dr. Soni. We have been asked to see the patient in consultation for CHF. Patient examined at the bedside in the emergency room. Patient presented to the hospital yesterday with a chief complaint of shortness of breath. He states he has been feeling short of breath for the past few days at home. He reports home oxygen use and states he utilizes O2 20/01. He reports increased lower extremity edema and also increased abdominal bloating. He reports a weight gain of about 12 pounds over the past week. The patient states he has been taking his medications as prescribed until recently when he began to run out of some of them. He is unsure which ones he ran out of but he believes one of them is a diuretic and another 1 is a blood pressure pill. He reports an episode of chest pain yesterday at home after walking to the bathroom. He states the pain lasted for about 2 minutes and then resolved on its own. He denies any further episodes of chest pain or pressure since that time. The patient reports he has not smoked in 2 or 3 months. He also reports he has not drank alcohol in over 30 years. Patient's blood pressure is elevated at the time of examination with a systolic in the 150s. Bedside telemetry reveals sinus mechanism with a heart rate in the 70s. DIAGNOSTICS: EKG reveals sinus mechanism with T wave inversions in inferior leads and V5V6, similar to previous EKG Chest xray mild CHF. Bilateral pleural effusions. Worse on the left. Laboratory data: Sodium 133. Potassium 5.9. However specimen is hemolyzed. BUN 34. Creatinine 1.51. Troponin 0.149. proBNP 25,700. Current home cardiac medications include medication list is not updated at the time of dictation Most recent echocardiogram obtained in March 2023 revealed ejection fraction 20 to 25%, mild to moderate TR, trace MR, and calcified aortic valve without significant stenosis Cardiac catheterization history: January 2016 revealing intermediate in-stent restenosis of the RCA, mild to moderate nonobstructive coronary artery disease involving the left coronary system, normal left ventricular systolic function. 07/23/2023 Patient examined this morning at the bedside. Patient complains of back pain this morning. He continues to report SOB. He remains on IV lasix. He continues to be volume overloaded. Creatinine today 1.57. BUN 49. Blood pressure remains elevated although improved from yesterday. July 24, 2023 Patient examined this morning at bedside. Patient denies chest pain or pressure. He continues to report shortness of breath, although improved from yesterday. Remains on IV diuretics. Kidney function remained stable today. Creatinine 1.69. He continues to have abdominal distention, although improving. Vital signs are stable. Most recent blood pressure 147/49. July 25, 2023 Patient examined this morning at the bedside. Patient denies chest pain or pressure. He continues to report shortness of breath. Creatinine today is increased from 1.6-1.9. He is currently on 60 mg of Lasix twice a day. Telemetry reveals sinus mechanism. Abdominal ultrasound was performed with out evidence for significant ascites July 26, 2023 Patient examined this morning at the bedside. Patient denies chest pain or pressure. He currently denies shortness of breath. He complains of continued abdominal bloating this morning and pain with ambulation due to the swelling in his legs. He remains on IV Lasix 40 mg twice a day. Creatinine 1.84 today. July 27, 2023 Patient examined this morning at the bedside. He currently denies chest pain or pressure. He reports improvement in his shortness of breath. He continues to complain of abdominal bloating this morning and lower extremity edema. He remains on IV Lasix 40 mg every 12 hours. Creatinine is stable today at 1.92. Most recent blood pressure 138/80. 07/28 Patient is complaining of abdominal distention. He states his breathing is a little bit better since he is coming to the hospital. He continues to have lower extremity edema. He states he is urinating a lot. Blood pressure 136/77. Heart rate is in the 70s, pulse ox 98% on room air. Patient's weight appears to be elevated. He is maintained on Lasix 40 mg IV every 12 hours. PHYSICAL EXAM: VITAL SIGNS: Reviewed. GENERAL: Well-developed in no acute distress. HEENT: Head is normocephalic. Pupils are equal, round. Sclerae anicteric. Mucous membranes of the mouth are moist. Neck supple. No JVD or thyromegaly LUNGS: Respirations even and unlabored. Lungs diminished at the bases HEART: Regular rate and rhythm. S1 and S2 heard. Soft systolic murmur noted. ABDOMEN: Distended. EXTREMITIES: Normal range of motion. No clubbing or cyanosis. Peripheral pulses intact. 2+ bilateral pitting lower extremity edema NEUROLOGIC: Awake and alert. Oriented x 3. ASSESSMENT: Shortness of breath Acute on chronic heart failure with reduced ejection fraction, 25%, proBNP 25,700 Elevated troponin, suspect secondary to type II VT secondary to oxygen supply demand mismatch Coronary artery disease with previous stenting of the RCA Mild to moderate nonobstructive CAD involving left coronary system Ischemic cardiomyopathy Acute on chronic kidney disease Chronic hypoxic respiratory failure on home O2, 20/01 History of COPD Hypertension Hyperlipidemia History of ascites with previous paracentesis, x 4 per patient Former nicotine dependence, patient quit smoking 2 to 3 months ago Former alcohol abuse, patient states he has not drank in 30 years History of medication noncompliance Hyponatremia Hyperkalemia PLAN: Continue IV Lasix as patient clinically remains volume overloaded Daily weights, accurate I&O, and monitoring of kidney function Continue additional cardiac medications Medication compliance reinforced with patient. Patient is agreeable to follow- up in the office postdischarge as long as he can arrange transportation. Further recommendations pending patient course Nurse practitioner note has been reviewed by physician. Signing provider agrees with the documented findings, assessment, and plan of care. Objective - Vital Signs Vital signs: Vital Signs Temp 97.0 F L 07/27/23 15:46 Pulse 76 07/28/23 09:14 Resp 16 07/28/23 08:27 BP 136/77 07/28/23 08:27 Pulse Ox 98 07/28/23 08:27 FiO2 Intake & Output 07/27/23 07/28/23 07/28/23 18:59 06:59 18:59 Intake Total 1298 570 480 Balance 1298 570 480 Weight 87.9 kg Intake: IV 20 30 Invasive Line 2 20 30 Oral 1278 540 480 Other: Voiding Method Toilet Toilet # Voids 1 # Bowel Movements 1 - Labs CBC & Chem 7: 07/27/23 06:53 07/28/23 09:19 Labs: Abnormal Lab Results - Last 24 Hours (Table) 07/27/23 07/27/23 07/27/23 Range/Units 12:00 16:44 20:07 POC Glucose (mg/dL) 270 H 312 H 303 H (70-110) mg/dL 07/28/23 Range/Units 00:22 POC Glucose (mg/dL) 189 H (70-110) mg/dL
[2023-07-28 15:18] LABS: Glucose,Whole Blood 186 mg/dL (70-110)
[2023-07-28 16:16] LABS: Glucose,Whole Blood 164 mg/dL (70-110)
[2023-07-28] MEDS: hydrALAZINE HCL 50 MG TAB PO SCH (16:25)
[2023-07-28] MEDS: ISOSORBIDE DINITRATE 10 MG TAB PO SCH (16:58)
[2023-07-28] MEDS: MORPHINE SULFATE 4 MG/ML SYRINGE IVP PRN (20:04)
[2023-07-28 20:17] LABS: Glucose,Whole Blood 105 mg/dL (70-110)
[2023-07-28 21:30] LABS: INR 1.1 (<1.2); Prothrombin Time 11.9 sec (10.0-12.5)
--- NOTE | 2023-07-28 22:10 | PN ---
PROGRESS NOTE SUBJECTIVE: This is a 63-year-old white male, elevated BUN and creatinine today, remains on Farxiga, Bumex, Lipitor, aspirin, DuoNeb, Flonase, Apresoline, Neurontin, [place] 10, Atarax, NovoLog, Levemir, Imdur, Toprol-XL. Sugars in the mid 100s. BUN is 105, creatinine 1.83, GFR 38. Sodium 134, potassium 4.8, carbon dioxide 30. He is complaining of abdominal distention, feeling little bit better since he has come to the hospital, continues to have lower extremity edema, elevated BUN over 105, O2 98 on room air, appears to be elevated, pulse ox 98, heart rate in the 70s. Remains on Lasix. OBJECTIVE: ABDOMEN: Distended. HEMATOLOGIC: 2 to 3+ edema, generalized lower extremity edema, anasarca changes. HEART: Regular rate and rhythm. LUNGS: Decreased breath sounds. HEENT: Normocephalic, atraumatic. ASSESSMENT: Shortness of breath, acute on chronic systolic CHF, elevated troponin, coronary artery disease, previous stent in the RCA, [id number] nonobstructive coronary artery disease, ischemic cardiomyopathy, acute on chronic kidney disease, chronic hypoxemic respiratory failure, COPD, hypertension, dyslipidemia. Previous paracentesis. Recent ultrasound showed no ascites, hyponatremia, hyperkalemia. We are going to continue IV Lasix, cardiac medicines. Possibly get, I guess, renal for elevated BUN if do anything. Prognosis guarded. MMODL / IJN: [id number] /
[2023-07-29] MEDS ORDERED: NITROGLYCERIN SL TABS 0.4 MG TAB SUBLINGUAL PRN (02:10)
[2023-07-29] MEDS: IPRATROPIUM-ALBUTEROL 3 ML NEB INHALATION PRN (02:31)
[2023-07-29 06:22] LABS: Glucose,Whole Blood 300 mg/dL (70-110)
[2023-07-29 07:34] LABS: Basophils % (A) 0 %; Eosinophils # (A) 0.1 k/uL (0-0.7); Eosinophils % (A) 1 %; HCT 34.8 % (39.0-53.0); HGB 10.9 gm/dL (13.0-17.5); Hypochromasia Moderate; Lymphocytes # (A) 0.6 k/uL (1.0-4.8); Lymphocytes % (A) 11 %; MCH 28.9 pg (25.0-35.0); MCHC 31.4 g/dL (31.0-37.0); MCV 92.1 fL (80.0-100.0); Mean Platelet Volume 9.4; Monocytes # (A) 0.5 k/uL (0-1.0); Monocytes % (A) 10 %; Neutrophils # (A) 4.1 k/uL (1.3-7.7); Neutrophils % (A) 77 %; Platelet Count 146 k/uL (150-450); RBC 3.78 m/uL (4.30-5.90); RDW 14.7 % (11.5-15.5); WBC 5.4 k/uL (3.8-10.6)
[2023-07-29 07:49] LABS: ALT 59 U/L (4-49); AST 45 U/L (17-59); African American GFR (CKD) 46 (>60 ml/min/1.73 sqM); Albumin 3.9 g/dL (3.5-5.0); Alkaline Phosphatase 77 U/L (38-126); Anion Gap 10 mmol/L; Calcium 8.5 mg/dL (8.4-10.2); Carbon Dioxide 25 mmol/L (22-30); Chloride 99 mmol/L (98-107); Glucose 235 mg/dL (74-99); Non-African American GFR(CKD) 40 (>60 ml/min/1.73 sqM); Potassium 5.3 mmol/L (3.5-5.1); Sodium 134 mmol/L (137-145); Total Bilirubin 0.4 mg/dL (0.2-1.3); Total Protein 6.4 g/dL (6.3-8.2)
[2023-07-29 07:54] LABS: Blood Urea Nitrogen 107 mg/dL (9-20)
--- NOTE | 2023-07-29 08:17 | CT ---
EXAMINATION TYPE: CT abdomen pelvis wo con CT DLP: 858 mGycm, Automated exposure control for dose reduction was used. DATE OF EXAM: 07/29/2023 7:51 AM COMPARISON: CT abdomen pelvis most recent from 04/15/2023. CLINICAL INDICATION:Male, 63 years old with history of abdominal distension; TECHNIQUE: Standard CT of the abdomen and pelvis without IV or oral contrast. Lack of IV or oral co ntrast limits evaluation of solid and hollow organ viscera. Coronal and sagittal reformats were perfo rmed. FINDINGS: LOWER CHEST: Cardiomegaly with with coronary artery calcification. Small bilateral pleural effusions with associated atelectasis. ABDOMEN LIVER: Subtle surface nodularity identified. No focal lesion identified within the limitations of a n oncontrast exam. GALLBLADDER AND BILE DUCTS: The gallbladder is surgically absent. PANCREAS: Mildly atrophic. SPLEEN: Unremarkable. ADRENAL GLANDS: Unremarkable. KIDNEYS AND URETERS: No evidence of hydronephrosis or renal calculus. Exophytic left posterior renal 2.7 cm cyst. PELVIS BLADDER: Underdistended with some circumferential wall thickening. REPRODUCTIVE: Prostate is enlarged in size measuring 5.2 cm in transverse dimension. ABDOMEN & PELVIS STOMACH AND BOWEL: Colonic diverticulosis without evidence for acute diverticulitis. The appendix is within normal limits. No evidence of bowel obstruction. PERITONEUM: No evidence of pneumoperitoneum. Small volume ascites throughout the abdomen and pelvis. VASCULATURE: Moderate atherosclerotic calcifications are present throughout the abdominal aorta and i ts branches. No evidence of aortic aneurysm. MUSCULOSKELETAL: No acute osseous abnormalities. Remote fracture of the right inferior pubic ramus. P rominent Schmorl's node involving the superior endplates of the T11 and L2 vertebral bodies. Slight a nterior wedging of the L2 vertebral body. Multilevel degenerative disc disease. LYMPH NODES: No gross evidence for lymphadenopathy. SOFT TISSUE/ABDOMINAL WALL: Diffuse anasarca. Right inguinal hernia containing fat and ascites. IMPRESSION: 1. Volume overload with small bilateral pleural effusions, diffuse anasarca, and small volume ascites throughout the abdomen and pelvis. 2. Colonic diverticulosis without evidence for acute diverticulitis. 3. Subtle surface nodularity of the liver. Correlate for possible cirrhosis.
--- NOTE | 2023-07-29 10:50 | P.NPCON ---
History of Present Illness - Reason for Consult acute renal failure, chronic renal failure - History of Present Illness Reason for consultation: Chronic kidney disease History of present illness: Patient is a 63-year-old male seen in renal consultation for chronic kidney disease. Patient has chronic kidney disease stage IIIb with baseline creatinine 1.8-2. Creatinine this admission has been near baseline. He is currently receiving IV Bumex. Patient came to the hospital due to worsening shortness of breath progressively getting worse for 1 week prior to discharge. Patient has history of diabetes. He also has history of coronary artery disease with 3 stents. Patient has systolic CHF ejection fraction of 20 to 25% with moderate to severe pulmonary hypertension. CAT scan from March 2023 showed no evidence of hydronephrosis. Hemodynamically stable. Denies use of nonsteroidals. Denies vomiting or diarrhea. Underwent CT of the abdomen and pelvis today suggestive of diffuse anasarca and fluid overload. Diverticulosis was noted. No hydronephrosis. Denies chest pain. No gross hematuria or dysuria. Vital signs are stable. General: No acute distress. HEENT: Head exam is unremarkable. On nasal cannula. LUNGS: No audible rhonchi or wheezes. HEART: Rate and Rhythm are regular. ABDOMEN: Distention noted. EXTREMITITES: 2+ edema. Past Medical History Past Medical History: Coronary Artery Disease (CAD), Heart Failure, COPD, CVA/TIA, Diabetes Mellitus, Eye Disorder, Hyperlipidemia, Hypertension, Liver Disease, Myocardial Infarction ([place]), Renal Disease Additional Past Medical History / Comment(s): Iischemic cardiomyopathy, PVCs, CVA 2019 with L sided weakness, chronic low back pain d/t vertebral fractures years ago as well as cervical pinched nerves, DDD, IDDM type II, neuropathy bilateral hands/legs and feet, pt states he can barely see with L eye and R eye vision is not very good/he is unsure why but believes it is d/t diabetes, liver disease/hepatitis C/ETOH abuse, recurrent ascities/paracentesis, recent R hip fracture d/t fall/recurrent falls. Last Myocardial Infarction Date:: October 2018 History of Any Multi-Drug Resistant Organisms: MRSA Date of last positivie culture/infection: 11/23/20 MDRO Source:: FOOT MRSA Past Surgical History: Cholecystectomy, Heart Catheterization, Heart Catheterization With Stent, Tonsillectomy Additional Past Surgical History / Comment(s): R heel I&D, colonoscopy. Past Anesthesia/Blood Transfusion Reactions: No Reported Reaction Date of Last Stent Placement:: 2011 Past Psychological History: Anxiety, Bipolar, Depression Additional Psychological History / Comment(s): Pt states he lives with his brother. Pt ambulates with a walker. He uses rides thru insurance. Case management/social workers are involved in pt's care Smoking Status: Current every day smoker Past Alcohol Use History: None Reported Additional Past Alcohol Use History / Comment(s): Pt started smoking in 1976. Pt states he has hx of heavy alcohol use but states none for years Past Drug Use History: Marijuana Additional Drug Use History / Comment(s): Marijuana occasionally. pt stated he had ICE on 02/24/2020 - Past Family History Mother Family Medical History: Cancer Father Family Medical History: Coronary Artery Disease (CAD), Diabetes Mellitus, Hypertension Medications and Allergies Home Medications Medication Instructions Recorded Confirmed Type Aspirin 81 mg PO DAILY 90 Days #90 tab 04/22/23 07/22/23 Rx Atorvastatin [Lipitor] 40 mg PO HS 90 Days #90 tab 04/22/23 07/22/23 Rx Metoprolol Succinate (ER) [Toprol 25 mg PO DAILY 90 Days #90 tab 04/22/23 07/22/23 Rx XL] Albuterol Sulfate [Ventolin HFA] 1 - 2 puff INHALATION RT-Q6H PRN 05/20/23 07/22/23 History HYDROcodone/APAP 10-325MG [Paxton 1 tab PO QID 05/20/23 07/22/23 History 10-325] Ipratropium-Albuterol Nebulize 3 ml INHALATION RT-TID 05/20/23 07/22/23 History [Duoneb 0.5 mg-3 mg/3 ml Soln] Gabapentin 300 mg PO DAILY 07/22/23 07/22/23 History Allergies Allergy/AdvReac Type Severity Reaction Status Date / Time Penicillins Allergy Unknown Verified 07/22/23 11:01 Childhood metformin AdvReac Mild Nausea Verified 07/22/23 11:01 Physical Exam Vitals: Vital Signs Temp Pulse Pulse Resp BP Pulse Ox 07/29/23 09:39 84 07/29/23 09:32 84 98 07/29/23 04:00 98.5 F 80 18 149/92 98 07/29/23 02:42 80 07/29/23 02:32 76 07/29/23 01:55 75 16 07/28/23 23:37 75 16 132/77 95 07/28/23 20:00 98.4 F 82 18 144/86 97 07/28/23 17:46 84 07/28/23 17:35 84 07/28/23 16:00 87 16 158/80 93 L 07/28/23 12:57 76 07/28/23 12:44 76 07/28/23 11:59 83 16 147/77 97 Intake and Output 07/28/23 07/29/23 07/29/23 22:59 06:59 14:59 Intake Total 660 480 Balance 660 480 Intake: Oral 660 480 Other: Voiding Method Toilet Toilet Weight 88.5 kg Results - Lab Results Most recent lab results Calcium 8.5 mg/dL (8.4-10.2) 07/29/23 07:00 Magnesium 2.0 mg/dL (1.6-2.3) 07/24/23 07:18 07/29/23 07:00 07/29/23 07:00 Assessment and Plan Plan: Assessment: 1. Chronic kidney disease stage IIIb secondary to cardiorenal syndrome and diabetic kidney disease. Baseline creatinine 1.8-2. GFR currently near baseli ne. No hydronephrosis noted on CAT scan. 2. Acute on chronic systolic CHF with ejection fraction of 20 to 25% with moderate to severe pulmonary hypertension. 3. Fluid overload. 4. Coronary artery disease with prior stenting. 5. Diabetes mellitus. 6. Hypervolemic hyponatremia with component of hypertonicity from hyperglycemia. Plan: Stop IV Bumex. Start Lasix drip at 10 cc an hour. Add metolazone 5 mg once daily. Continue SGLT2i. Low-salt diet and 1500 cc fluid restriction. Check urinalysis. Avoid nephrotoxins. Continue to monitor renal function and urine output. Strict I's and O's. Thank you for the consultation. I will continue to follow the patient with you during his hospital stay.
[2023-07-29 11:31] LABS: Glucose,Whole Blood 83 mg/dL (70-110)
--- NOTE | 2023-07-29 12:24 | P.CONS ---
History of Present Illness - Reason for Consult Consult date: 07/29/23 Ascites, cirrhosis Requesting physician: Eric Loyola - Chief Complaint Shortness of breath - History of Present Illness This is a pleasant 63-year-old male with past medical history of congestive heart failure, coronary artery disease, COPD requiring home oxygen, diabetes mellitus, hyperlipidemia, hypertension, myocardial infarction, chronic renal disease, and cirrhosis of the liver due to alcoholism and history of hepatitis C which was treated. Patient was admitted to the hospital for shortness of breath and NSTEMI. He has been here for 1 weeks duration with complaints of abdominal distention and discomfort. He states he has not had any alcohol for many years and no IV drug use either. Unfortunately he has not been following with a primary care provider until recently where he got established with Dr. Lackey. He has not been following with any gastroenterology for his underlying liver disease but has seen Dr. Zaidi in the past. He has been diagnosed with cirrhosis of the liver, liver disease for several years now. Last paracentesis about 2 years ago. States he has not been taking any medications at home. He had a ultrasound of the abdomen done on 07/24/2023 that reported no drainable ascites identified. He was still complaining of abdominal discomfort and distention and a CT of the abdomen pelvis was ordered and completed this morning. Which reports of volume overload with small bilateral pleural effusions, diffuse anasarca and small volume ascites throughout the abdomen and pelvis. Colonic diverticulosis without evidence for acute diverticulitis. Subtle surface nodularity of the liver correlate for possible cirrhosis. Paracentesis with fluid studies are ordered patient is pending paracentesis if there is enough fluid for removal. He currently has shortness of breath but denies any current chest pain. Nephrology is consulted for acute on chronic kidney disease. Today's labs WBC 5.4 hemoglobin 10.9 hematocrit 34 platelet count 146,000 sodium 134 potassium 5.3 BUN 107 creatinine 1.7 glucose 235 total bilirubin 0.4 AST 45 ALT 59 alkaline phosphatase 77 ammonia 11 Review of Systems REVIEW OF SYSTEMS: CARDIOPULMONARY: No chest pain. Shortness of breath, lower extremity edema. Gastrointestinal: Reports abdominal discomfort and distention. No nausea or vomiting. No hematemesis, coffee-ground emesis. No rectal bleeding, or melena. GENITOURINARY: No dysuria or hematuria. MUSCULOSKELETAL: Reports normal range of motion., Joint pain. SKIN: Patient with scab-like sores in upper and lower extremities with swelling and appears to be picking and bleeding. No jaundice. ENDOCRINE: No chills, fevers. No excessive weight gain or loss. No polydipsia or polyuria. PSYCHIATRIC: Unremarkable. NEUROLOGY: No change in mental status. Denies dizziness, headache. ENT: Vision unremarkable. CONSTITUTIONAL: No recent weight loss. No fever, chills, night sweats. Past Medical History Past Medical History: Coronary Artery Disease (CAD), Heart Failure, COPD, CVA/TIA, Diabetes Mellitus, Eye Disorder, Hyperlipidemia, Hypertension, Liver Disease, Myocardial Infarction ([place]), Renal Disease Additional Past Medical History / Comment(s): Iischemic cardiomyopathy, PVCs, CVA 2019 with L sided weakness, chronic low back pain d/t vertebral fractures years ago as well as cervical pinched nerves, DDD, IDDM type II, neuropathy bilateral hands/legs and feet, pt states he can barely see with L eye and R eye vision is not very good/he is unsure why but believes it is d/t diabetes, liver disease/hepatitis C/ETOH abuse, recurrent ascities/paracentesis, recent R hip fracture d/t fall/recurrent falls. Last Myocardial Infarction Date:: October 2018 History of Any Multi-Drug Resistant Organisms: MRSA Year Discovered:: 11/23/20 MDRO Source:: FOOT MRSA Past Surgical History: Cholecystectomy, Heart Catheterization, Heart Catheterization With Stent, Tonsillectomy Additional Past Surgical History / Comment(s): R heel I&D, colonoscopy. Past Anesthesia/Blood Transfusion Reactions: No Reported Reaction Date of Last Stent Placement:: 2011 Past Psychological History: Anxiety, Bipolar, Depression Additional Psychological History / Comment(s): Pt states he lives with his brother. Pt ambulates with a walker. He uses rides thru insurance. Case management/social workers are involved in pt's care Smoking Status: Current every day smoker Past Alcohol Use History: None Reported Additional Past Alcohol Use History / Comment(s): Pt started smoking in 1976. Pt states he has hx of heavy alcohol use but states none for years Past Drug Use History: Marijuana Additional Drug Use History / Comment(s): Marijuana occasionally. pt stated he had ICE on 02/24/2020 - Past Family History Mother Family Medical History: Cancer Father Family Medical History: Coronary Artery Disease (CAD), Diabetes Mellitus, Hypertension Medications and Allergies Home Medications Medication Instructions Recorded Confirmed Type Aspirin 81 mg PO DAILY 90 Days #90 tab 04/22/23 07/22/23 Rx Atorvastatin [Lipitor] 40 mg PO HS 90 Days #90 tab 04/22/23 07/22/23 Rx Metoprolol Succinate (ER) [Toprol 25 mg PO DAILY 90 Days #90 tab 04/22/23 07/22/23 Rx XL] Albuterol Sulfate [Ventolin HFA] 1 - 2 puff INHALATION RT-Q6H PRN 05/20/23 07/22/23 History HYDROcodone/APAP 10-325MG [[place] 1 tab PO QID 05/20/23 07/22/23 History 10-325] Ipratropium-Albuterol Nebulize 3 ml INHALATION RT-TID 05/20/23 07/22/23 History [Duoneb 0.5 mg-3 mg/3 ml Soln] Gabapentin 300 mg PO DAILY 07/22/23 07/22/23 History Allergies Allergy/AdvReac Type Severity Reaction Status Date / Time Penicillins Allergy Unknown Verified 07/22/23 11:01 Childhood metformin AdvReac Mild Nausea Verified 07/22/23 11:01 Physical Exam Vitals: Vital Signs Temp Pulse Pulse Resp BP Pulse Ox 07/29/23 04:00 98.5 F 80 18 149/92 98 07/29/23 02:42 80 07/29/23 02:32 76 07/29/23 01:55 75 16 07/28/23 23:37 75 16 132/77 95 07/28/23 20:00 98.4 F 82 18 144/86 97 07/28/23 17:46 84 07/28/23 17:35 84 07/28/23 16:00 87 16 158/80 93 L 07/28/23 12:57 76 07/28/23 12:44 76 07/28/23 11:59 83 16 147/77 97 07/28/23 09:14 76 07/28/23 09:03 76 07/28/23 08:27 79 16 136/77 98 Intake and Output 07/28/23 07/29/23 07/29/23 22:59 06:59 14:59 Intake Total 660 Balance 660 Intake: Oral 660 Other: Voiding Method Toilet Toilet Weight 88.5 kg General appearance: The patient is alert, oriented, appears in no acute distress. HET: Head is normocephalic and atraumatic. Conjunctiva pink. Sclera anicteric. Neck: Supple without lymphadenopathy. Trachea midline. Heart: Regular. Lungs: Equal expansion, normal respiratory effort. Abdomen: Distended, tympanic, mild tenderness. No guarding or rigidity. Skin: Sores on upper extremities that appear to be picking and old scabs and blood. No jaundice. Extremities: Lower extremity edema bilaterally, sores on legs that are bleeding. Sores on upper extremities that appear to be picking and old scabs and blood. Neurological: No focal deficits. Alert and oriented x3. Results CBC & Chem 7: 07/29/23 07:00 07/29/23 07:00 Labs: Abnormal Lab Results - Last 24 Hours (Table) 07/28/23 07/28/23 07/28/23 Range/Units 09:19 11:44 15:17 RBC (4.30-5.90) m/uL Hgb (13.0-17.5) gm/dL Hct (39.0-53.0) % Plt Count (150-450) k/uL Lymphocytes # (1.0-4.8) k/uL Sodium 134 L (137-145) mmol/L Potassium (3.5-5.1) mmol/L BUN 105 H* (9-20) mg/dL Creatinine 1.83 H (0.66-1.25) mg/dL Glucose 156 H (74-99) mg/dL POC Glucose (mg/dL) 254 H 186 H (70-110) mg/dL Calcium 8.3 L (8.4-10.2) mg/dL ALT (4-49) U/L 07/28/23 07/29/23 07/29/23 Range/Units 16:12 06:20 07:00 RBC 3.78 L (4.30-5.90) m/uL Hgb 10.9 L (13.0-17.5) gm/dL Hct 34.8 L (39.0-53.0) % Plt Count 146 L (150-450) k/uL Lymphocytes # 0.6 L (1.0-4.8) k/uL Sodium (137-145) mmol/L Potassium (3.5-5.1) mmol/L BUN (9-20) mg/dL Creatinine (0.66-1.25) mg/dL Glucose (74-99) mg/dL POC Glucose (mg/dL) 164 H 300 H (70-110) mg/dL Calcium (8.4-10.2) mg/dL ALT (4-49) U/L 07/29/23 Range/Units 07:00 RBC (4.30-5.90) m/uL Hgb (13.0-17.5) gm/dL Hct (39.0-53.0) % Plt Count (150-450) k/uL Lymphocytes # (1.0-4.8) k/uL Sodium 134 L (137-145) mmol/L Potassium 5.3 H (3.5-5.1) mmol/L BUN 107 H* (9-20) mg/dL Creatinine 1.77 H (0.66-1.25) mg/dL Glucose 235 H (74-99) mg/dL POC Glucose (mg/dL) (70-110) mg/dL Calcium (8.4-10.2) mg/dL ALT 59 H (4-49) U/L Comments: CT of the abdomen pelvis was ordered and completed this morning. Which reports of volume overload with small bilateral pleural effusions, diffuse anasarca and small volume ascites throughout the abdomen and pelvis. Colonic diverticulosis without evidence for acute diverticulitis. Subtle surface nodularity of the liver correlate for possible cirrhosis. Assessment and Plan (1) Cirrhosis of liver Narrative/Plan: 63-year-old male with history of liver disease secondary to alcoholic cirrhosis as well as hepatitis C due to IV drug use. Patient has not been following with any PCP or gastroenterology for some time and has not been taking medications. Denies any current alcohol use states it has been several years since any alcohol or drug use. He was treated for his hepatitis C and states that it had been cured. Currently having abdominal distention however mostly tympanic and very small amount of ascites noted on CT abdomen and pelvis and no significant ascites on previous ultrasound. Patient also has acute on chronic kidney disease which nephrology is following. They are starting patient on a Lasix drip at 10 cc an hour will defer any diuretic management to nephrology. Current Visit: Yes Status: Acute Code(s): K74.60 - UNSPECIFIED CIRRHOSIS OF LIVER SNOMED Code(s): 98013403 (2) History of hepatitis C virus infection Current Visit: Yes Status: Acute Code(s): Z86.19 - PERSONAL HISTORY OF OTHER INFECTIOUS AND PARASITIC DISEASES SNOMED Code(s): 43649764270858 (3) Congestive heart failure Current Visit: Yes Status: Acute Code(s): I50.9 - HEART FAILURE, UNSPECIFIED SNOMED Code(s): 94901785 (4) Abdominal pain Current Visit: No Status: Acute Code(s): R10.9 - UNSPECIFIED ABDOMINAL PAIN SNOMED Code(s): 51663921 (5) Chronic kidney disease Current Visit: Yes Status: Acute Code(s): N18.9 - CHRONIC KIDNEY DISEASE, UNSPECIFIED SNOMED Code(s): 260116705 (6) Fluid overload Current Visit: Yes Status: Acute Code(s): E87.70 - FLUID OVERLOAD, UNSPECIFIED SNOMED Code(s): 56401952 (7) Diabetes mellitus Current Visit: Yes Status: Acute Code(s): E11.9 - TYPE 2 DIABETES MELLITUS WITHOUT COMPLICATIONS SNOMED Code(s): 03920314 Plan: 1. Continue symptomatic and supportive care 2. Diuretic management per nephrology 3. Recommend low-sodium diet/renal diet 4. Continue with alcohol abstinence 5. Agree with paracentesis if enough fluid, fluid studies ordered as well as cytology 6. Encourage medical compliance and outpatient follow-up with gastroenterology Thank you for this consultation, we will continue to follow. Dr. Te Zaidi I agree with the dictator's note, documented as a scribe by Ce Duran.
[2023-07-29] MEDS: FUROSEMIDE 100 MG in SODIUM CHLORIDE 0.9% 90 ML IV SCH (12:54)
[2023-07-29] MEDS: hydrALAZINE HCL 25 MG TAB PO STA (13:59)
[2023-07-29] MEDS: metOLazone 5 MG TAB PO SCH (13:59)
[2023-07-29 14:01] LABS: % Iron Saturation 7.48 (15.00-50.00); Ferritin 69.1 ng/mL (22.0-322.0)
--- NOTE | 2023-07-29 15:45 | P.PN ---
Subjective Progress Note Date: 07/29/23 HISTORY OF PRESENT ILLNESS: This is a 63-year-old male with a past medical history significant for coronary artery disease with previous stenting, ischemic cardiomyopathy, hypertension, hyperlipidemia, nicotine dependence, and former alcohol abuse. Patient has not followed in the office since 2015, however at that time he saw Dr. Soni. We have been asked to see the patient in consultation for CHF. Patient examined at the bedside in the emergency room. Patient presented to the hospital yesterday with a chief complaint of shortness of breath. He states he has been feeling short of breath for the past few days at home. He reports home oxygen use and states he utilizes O2 20/01. He reports increased lower extremity edema and also increased abdominal bloating. He reports a weight gain of about 12 pounds over the past week. The patient states he has been taking his medications as prescribed until recently when he began to run out of some of them. He is unsure which ones he ran out of but he believes one of them is a diuretic and another 1 is a blood pressure pill. He reports an episode of chest pain yesterday at home after walking to the bathroom. He states the pain lasted for about 2 minutes and then resolved on its own. He denies any further episodes of chest pain or pressure since that time. The patient reports he has not smoked in 2 or 3 months. He also reports he has not drank alcohol in over 30 years. Patient's blood pressure is elevated at the time of examination with a systolic in the 150s. Bedside telemetry reveals sinus mechanism with a heart rate in the 70s. DIAGNOSTICS: EKG reveals sinus mechanism with T wave inversions in inferior leads and V5V6, similar to previous EKG Chest xray mild CHF. Bilateral pleural effusions. Worse on the left. Laboratory data: Sodium 133. Potassium 5.9. However specimen is hemolyzed. BUN 34. Creatinine 1.51. Troponin 0.149. proBNP 25,700. Current home cardiac medications include medication list is not updated at the time of dictation Most recent echocardiogram obtained in March 2023 revealed ejection fraction 20 to 25%, mild to moderate TR, trace MR, and calcified aortic valve without significant stenosis Cardiac catheterization history: January 2016 revealing intermediate in-stent restenosis of the RCA, mild to moderate nonobstructive coronary artery disease involving the left coronary system, normal left ventricular systolic function. 07/23/2023 Patient examined this morning at the bedside. Patient complains of back pain this morning. He continues to report SOB. He remains on IV lasix. He continues to be volume overloaded. Creatinine today 1.57. BUN 49. Blood pressure remains elevated although improved from yesterday. July 24, 2023 Patient examined this morning at bedside. Patient denies chest pain or pressure. He continues to report shortness of breath, although improved from yesterday. Remains on IV diuretics. Kidney function remained stable today. Creatinine 1.69. He continues to have abdominal distention, although improving. Vital signs are stable. Most recent blood pressure 147/49. July 25, 2023 Patient examined this morning at the bedside. Patient denies chest pain or pressure. He continues to report shortness of breath. Creatinine today is increased from 1.6-1.9. He is currently on 60 mg of Lasix twice a day. Telemetry reveals sinus mechanism. Abdominal ultrasound was performed with out evidence for significant ascites July 26, 2023 Patient examined this morning at the bedside. Patient denies chest pain or pressure. He currently denies shortness of breath. He complains of continued abdominal bloating this morning and pain with ambulation due to the swelling in his legs. He remains on IV Lasix 40 mg twice a day. Creatinine 1.84 today. July 27, 2023 Patient examined this morning at the bedside. He currently denies chest pain or pressure. He reports improvement in his shortness of breath. He continues to complain of abdominal bloating this morning and lower extremity edema. He remains on IV Lasix 40 mg every 12 hours. Creatinine is stable today at 1.92. Most recent blood pressure 138/80. 07/28 Patient is complaining of abdominal distention. He states his breathing is a little bit better since he is coming to the hospital. He continues to have lower extremity edema. He states he is urinating a lot. Blood pressure 136/77. Heart rate is in the 70s, pulse ox 98% on room air. Patient's weight appears to be elevated. He is maintained on Lasix 40 mg IV every 12 hours. 07/29 Patient denies having any chest pain and no pressure. He has ongoing concern regarding abdominal discomfort and distention. Nephrology has started the patient on Lasix drip at 10 mg/h and has been started on metolazone 5 mg daily. Patient states he is feel to urinals in the last 1 hour. Blood pressure 147/89, heart rate in the 70s. Repeat blood work reveals hemoglobin 10.9, BUN 107 creatinine 1.77, sodium 134, potassium 5.3. PHYSICAL EXAM: VITAL SIGNS: Reviewed. GENERAL: Well-developed in no acute distress. HEENT: Head is normocephalic. Pupils are equal, round. Sclerae anicteric. Mucous membranes of the mouth are moist. Neck supple. No JVD or thyromegaly LUNGS: Respirations even and unlabored. Lungs diminished at the bases HEART: Regular rate and rhythm. S1 and S2 heard. Soft systolic murmur noted. ABDOMEN: Distended. EXTREMITIES: Normal range of motion. No clubbing or cyanosis. Peripheral pulses intact. 2+ bilateral pitting lower extremity edema NEUROLOGIC: Awake and alert. Oriented x 3. ASSESSMENT: Acute on chronic heart failure with reduced ejection fraction, 25%, proBNP 25,700 Elevated troponin, suspect secondary to type II DC secondary to oxygen supply demand mismatch Coronary artery disease with previous stenting of the RCA Mild to moderate nonobstructive CAD involving left coronary system Ischemic cardiomyopathy Acute on chronic kidney disease Chronic hypoxic respiratory failure on home O2, 20/01 History of COPD Hypertension Hyperlipidemia History of ascites with previous paracentesis, x 4 per patient Former nicotine dependence, patient quit smoking 2 to 3 months ago Former alcohol abuse, patient states he has not drank in 30 years History of medication noncompliance Hyponatremia Hyperkalemia PLAN: Continue metolazone and Lasix drip per nephrology Daily weights, accurate I&O, and monitoring of kidney function Continue additional cardiac medications Increase hydralazine to 75 mg 3 times daily and increase Isordil to 40 mg 3 times daily to improve afterload. Further recommendations pending patient course Nurse practitioner note has been reviewed by physician. Signing provider agrees with the documented findings, assessment, and plan of care. Objective - Vital Signs Vital signs: Vital Signs Temp 98.6 F 07/29/23 08:00 Pulse 84 07/29/23 09:39 Resp 19 07/29/23 08:00 BP 147/89 07/29/23 08:00 Pulse Ox 98 07/29/23 09:32 FiO2 Intake & Output 07/28/23 07/29/23 07/29/23 18:59 06:59 18:59 Intake Total 787 768 2123 Balance 539 667 9262 Weight 87.9 kg 88.5 kg Intake: Oral [phone] Other: Voiding Method Toilet # Voids 3 - Labs CBC & Chem 7: 07/29/23 07:00 07/29/23 07:00 Labs: Abnormal Lab Results - Last 24 Hours (Table) 07/28/23 07/28/23 07/29/23 Range/Units 15:17 16:12 06:20 RBC (4.30-5.90) m/uL Hgb (13.0-17.5) gm/dL Hct (39.0-53.0) % Plt Count (150-450) k/uL Lymphocytes # (1.0-4.8) k/uL Sodium (137-145) mmol/L Potassium (3.5-5.1) mmol/L BUN (9-20) mg/dL Creatinine (0.66-1.25) mg/dL Glucose (74-99) mg/dL POC Glucose (mg/dL) 186 H 164 H 300 H (70-110) mg/dL ALT (4-49) U/L 07/29/23 07/29/23 Range/Units 07:00 07:00 RBC 3.78 L (4.30-5.90) m/uL Hgb 10.9 L (13.0-17.5) gm/dL Hct 34.8 L (39.0-53.0) % Plt Count 146 L (150-450) k/uL Lymphocytes # 0.6 L (1.0-4.8) k/uL Sodium 134 L (137-145) mmol/L Potassium 5.3 H (3.5-5.1) mmol/L BUN 107 H* (9-20) mg/dL Creatinine 1.77 H (0.66-1.25) mg/dL Glucose 235 H (74-99) mg/dL POC Glucose (mg/dL) (70-110) mg/dL ALT 59 H (4-49) U/L
[2023-07-29 16:41] LABS: Glucose,Whole Blood 420 mg/dL (70-110)
[2023-07-29] MEDS: hydrALAZINE HCL 25 MG TAB PO SCH (17:06)
[2023-07-29] MEDS: ISOSORBIDE DINITRATE 20 MG TAB PO SCH (18:40)
[2023-07-29 19:56] LABS: Glucose,Whole Blood 294 mg/dL (70-110)
[2023-07-30 06:10] LABS: Glucose,Whole Blood 93 mg/dL (70-110)
[2023-07-30 09:03] LABS: Basophils % (A) 0 %; Eosinophils # (A) 0.1 k/uL (0-0.7); Eosinophils % (A) 2 %; HCT 31.3 % (39.0-53.0); HGB 9.8 gm/dL (13.0-17.5); Hypochromasia Moderate; Lymphocytes # (A) 0.7 k/uL (1.0-4.8); Lymphocytes % (A) 9 %; MCH 28.7 pg (25.0-35.0); MCHC 31.5 g/dL (31.0-37.0); MCV 91.2 fL (80.0-100.0); Mean Platelet Volume 9.7; Monocytes # (A) 0.7 k/uL (0-1.0); Monocytes % (A) 10 %; Neutrophils # (A) 5.5 k/uL (1.3-7.7); Neutrophils % (A) 75 %; Platelet Count 149 k/uL (150-450); RBC 3.43 m/uL (4.30-5.90); RDW 14.6 % (11.5-15.5); WBC 7.3 k/uL (3.8-10.6)
[2023-07-30 09:56] LABS: ALT 63 U/L (4-49); AST 53 U/L (17-59); African American GFR (CKD) 44 (>60 ml/min/1.73 sqM); Albumin 3.9 g/dL (3.5-5.0); Alkaline Phosphatase 98 U/L (38-126); Anion Gap 11 mmol/L; Calcium 8.7 mg/dL (8.4-10.2); Carbon Dioxide 28 mmol/L (22-30); Chloride 95 mmol/L (98-107); Glucose 95 mg/dL (74-99); Magnesium 2.1 mg/dL (1.6-2.3); Non-African American GFR(CKD) 38 (>60 ml/min/1.73 sqM); Potassium 4.3 mmol/L (3.5-5.1); Sodium 134 mmol/L (137-145); Total Bilirubin 0.6 mg/dL (0.2-1.3); Total Protein 6.4 g/dL (6.3-8.2)
[2023-07-30 10:05] LABS: Blood Urea Nitrogen 112 mg/dL (9-20)
--- NOTE | 2023-07-30 10:54 | P.PN ---
Subjective Progress Note Date: 07/30/23 HISTORY OF PRESENT ILLNESS: This is a 63-year-old male with a past medical history significant for coronary artery disease with previous stenting, ischemic cardiomyopathy, hypertension, hyperlipidemia, nicotine dependence, and former alcohol abuse. Patient has not followed in the office since 2015, however at that time he saw Dr. Soni. We have been asked to see the patient in consultation for CHF. Patient examined at the bedside in the emergency room. Patient presented to the hospital yesterday with a chief complaint of shortness of breath. He states he has been feeling short of breath for the past few days at home. He reports home oxygen use and states he utilizes O2 20/01. He reports increased lower extremity edema and also increased abdominal bloating. He reports a weight gain of about 12 pounds over the past week. The patient states he has been taking his medications as prescribed until recently when he began to run out of some of them. He is unsure which ones he ran out of but he believes one of them is a diuretic and another 1 is a blood pressure pill. He reports an episode of chest pain yesterday at home after walking to the bathroom. He states the pain lasted for about 2 minutes and then resolved on its own. He denies any further episodes of chest pain or pressure since that time. The patient reports he has not smoked in 2 or 3 months. He also reports he has not drank alcohol in over 30 years. Patient's blood pressure is elevated at the time of examination with a systolic in the 150s. Bedside telemetry reveals sinus mechanism with a heart rate in the 70s. DIAGNOSTICS: EKG reveals sinus mechanism with T wave inversions in inferior leads and V5V6, similar to previous EKG Chest xray mild CHF. Bilateral pleural effusions. Worse on the left. Laboratory data: Sodium 133. Potassium 5.9. However specimen is hemolyzed. BUN 34. Creatinine 1.51. Troponin 0.149. proBNP 25,700. Current home cardiac medications include medication list is not updated at the time of dictation Most recent echocardiogram obtained in March 2023 revealed ejection fraction 20 to 25%, mild to moderate TR, trace MR, and calcified aortic valve without significant stenosis Cardiac catheterization history: January 2016 revealing intermediate in-stent restenosis of the RCA, mild to moderate nonobstructive coronary artery disease involving the left coronary system, normal left ventricular systolic function. 07/23/2023 Patient examined this morning at the bedside. Patient complains of back pain this morning. He continues to report SOB. He remains on IV lasix. He continues to be volume overloaded. Creatinine today 1.57. BUN 49. Blood pressure remains elevated although improved from yesterday. July 24, 2023 Patient examined this morning at bedside. Patient denies chest pain or pressure. He continues to report shortness of breath, although improved from yesterday. Remains on IV diuretics. Kidney function remained stable today. Creatinine 1.69. He continues to have abdominal distention, although improving. Vital signs are stable. Most recent blood pressure 147/49. July 25, 2023 Patient examined this morning at the bedside. Patient denies chest pain or pressure. He continues to report shortness of breath. Creatinine today is increased from 1.6-1.9. He is currently on 60 mg of Lasix twice a day. Telemetry reveals sinus mechanism. Abdominal ultrasound was performed with out evidence for significant ascites July 26, 2023 Patient examined this morning at the bedside. Patient denies chest pain or pressure. He currently denies shortness of breath. He complains of continued abdominal bloating this morning and pain with ambulation due to the swelling in his legs. He remains on IV Lasix 40 mg twice a day. Creatinine 1.84 today. July 27, 2023 Patient examined this morning at the bedside. He currently denies chest pain or pressure. He reports improvement in his shortness of breath. He continues to complain of abdominal bloating this morning and lower extremity edema. He remains on IV Lasix 40 mg every 12 hours. Creatinine is stable today at 1.92. Most recent blood pressure 138/80. 07/28 Patient is complaining of abdominal distention. He states his breathing is a little bit better since he is coming to the hospital. He continues to have lower extremity edema. He states he is urinating a lot. Blood pressure 136/77. Heart rate is in the 70s, pulse ox 98% on room air. Patient's weight appears to be elevated. He is maintained on Lasix 40 mg IV every 12 hours. 07/29 Patient denies having any chest pain and no pressure. He has ongoing concern regarding abdominal discomfort and distention. Nephrology has started the patient on Lasix drip at 10 mg/h and has been started on metolazone 5 mg daily. Patient states he is feel to urinals in the last 1 hour. Blood pressure 147/89, heart rate in the 70s. Repeat blood work reveals hemoglobin 10.9, BUN 107 creatinine 1.77, sodium 134, potassium 5.3. 07/30 Patient states he has finally noticed improvement of the abdominal distention and improvement of fluid. He was started yesterday on Lasix drip and metolazone. Yesterday we increased hydralazine and Isordil. Blood pressure 157/74, heart rate in the 70s. Repeat blood work reveals hemoglobin 9.8, platelet count 149. Sodium 134, potassium 4.3, BUN 112 and creatinine 1.82. PHYSICAL EXAM: VITAL SIGNS: Reviewed. GENERAL: Well-developed in no acute distress. HEENT: Head is normocephalic. Pupils are equal, round. Sclerae anicteric. Mucous membranes of the mouth are moist. Neck supple. No JVD or thyromegaly LUNGS: Respirations even and unlabored. Lungs diminished at the bases HEART: Regular rate and rhythm. S1 and S2 heard. Soft systolic murmur noted. ABDOMEN: Distended. EXTREMITIES: No clubbing or cyanosis. Peripheral pulses intact. 2+ bilateral pitting lower extremity edema NEUROLOGIC: Awake and alert. Oriented x 3. ASSESSMENT: Acute on chronic heart failure with reduced ejection fraction, 25%, proBNP 25,700 Elevated troponin, suspect secondary to type II UT secondary to oxygen supply demand mismatch Coronary artery disease with previous stenting of the RCA Mild to moderate nonobstructive CAD involving left coronary system Ischemic cardiomyopathy Acute on chronic kidney disease Chronic hypoxic respiratory failure on home O2, 20/01 History of COPD Hypertension Hyperlipidemia History of ascites with previous paracentesis, x 4 per patient Former nicotine dependence, patient quit smoking 2 to 3 months ago Former alcohol abuse, patient states he has not drank in 30 years History of medication noncompliance Hyponatremia Hyperkalemia PLAN: Continue metolazone and Lasix drip per nephrology Daily weights, accurate I&O, and monitoring of kidney function Continue additional cardiac medications Continue hydralazine 75 mg 3 times daily andIsordil 40 mg 3 times daily to i mprove afterload. May consider increasing hydralazine tomorrow if blood pressure readings remain elevated. Further recommendations pending patient course Nurse practitioner note has been reviewed by physician. Signing provider agrees with the documented findings, assessment, and plan of care. Objective - Vital Signs Vital signs: Vital Signs Temp 96.6 F L 07/30/23 08:00 Pulse 76 07/30/23 09:01 Resp 17 07/30/23 08:00 BP 157/74 07/30/23 08:00 Pulse Ox 100 07/30/23 08:00 FiO2 Intake & Output 07/29/23 07/30/23 07/30/23 18:59 06:59 18:59 Intake Total 1520 817.000 10 Output Total 700 Balance 820 817.000 10 Weight 86 kg Intake: IV 10 10 Invasive Line 4 10 10 Intake, IV Titration 170.000 Amount Furosemide 100 mg In 170.000 Sodium Chloride 0.9% 90 ml @ 10 MG/HR 10 mls/hr IV .Q10H [facility] Rx#: [id number] Oral 1520 637 Output: Urine 700 Other: Voiding Method Toilet Toilet Toilet Urinal Urinal # Voids 3 - Labs CBC & Chem 7: 07/30/23 08:37 07/30/23 08:37 Labs: Abnormal Lab Results - Last 24 Hours (Table) 07/29/23 07/29/23 07/29/23 Range/Units 07:00 16:40 19:54 RBC (4.30-5.90) m/uL Hgb (13.0-17.5) gm/dL Hct (39.0-53.0) % Plt Count (150-450) k/uL Lymphocytes # (1.0-4.8) k/uL Sodium (137-145) mmol/L Chloride (98-107) mmol/L BUN (9-20) mg/dL Creatinine (0.66-1.25) mg/dL POC Glucose (mg/dL) 420 H 294 H (70-110) mg/dL Iron 32 L (65-175) UG/DL % Saturation 7.48 L (15.00-50.00) ALT (4-49) U/L 07/30/23 07/30/23 Range/Units 08:37 08:37 RBC 3.43 L (4.30-5.90) m/uL Hgb 9.8 L (13.0-17.5) gm/dL Hct 31.3 L (39.0-53.0) % Plt Count 149 L (150-450) k/uL Lymphocytes # 0.7 L (1.0-4.8) k/uL Sodium 134 L (137-145) mmol/L Chloride 95 L (98-107) mmol/L BUN 112 H* (9-20) mg/dL Creatinine 1.82 H (0.66-1.25) mg/dL POC Glucose (mg/dL) (70-110) mg/dL Iron (65-175) UG/DL % Saturation (15.00-50.00) ALT 63 H (4-49) U/L
--- NOTE | 2023-07-30 11:01 | P.PN ---
Subjective Patient is seen in follow-up for acute kidney injury on chronic kidney disease. Renal function stable. On Lasix drip. Admits to good urine output. Feels better. Weight trending down. Vital signs are stable. On nasal cannula. General: No acute distress. HEENT: Head exam is unremarkable. LUNGS: No audible rhonchi or wheezes. HEART: Rate and Rhythm are regular. ABDOMEN: Nontender, distention noted. EXTREMITITES: 2+ edema. Chronic changes noted. Objective - Vital Signs Vital signs: Vital Signs Temp 96.6 F L 07/30/23 08:00 Pulse 76 07/30/23 09:01 Resp 17 07/30/23 08:00 BP 157/74 07/30/23 08:00 Pulse Ox 100 07/30/23 08:00 FiO2 Intake & Output 07/29/23 07/30/23 07/30/23 18:59 06:59 18:59 Intake Total 1520 817.000 10 Output Total 700 Balance 820 817.000 10 Weight 86 kg Intake: IV 10 10 Invasive Line 4 10 10 Intake, IV Titration 170.000 Amount Furosemide 100 mg In 170.000 Sodium Chloride 0.9% 90 ml @ 10 MG/HR 10 mls/hr IV .Q10H [facility] Rx#: [id number] Oral 1520 637 Output: Urine 700 Other: Voiding Method Toilet Toilet Toilet Urinal Urinal # Voids 3 - Labs CBC & Chem 7: 07/30/23 08:37 07/30/23 08:37 Labs: Abnormal Lab Results - Last 24 Hours (Table) 07/29/23 07/29/23 07/29/23 Range/Units 07:00 16:40 19:54 RBC (4.30-5.90) m/uL Hgb (13.0-17.5) gm/dL Hct (39.0-53.0) % Plt Count (150-450) k/uL Lymphocytes # (1.0-4.8) k/uL Sodium (137-145) mmol/L Chloride (98-107) mmol/L BUN (9-20) mg/dL Creatinine (0.66-1.25) mg/dL POC Glucose (mg/dL) 420 H 294 H (70-110) mg/dL Iron 32 L (65-175) UG/DL % Saturation 7.48 L (15.00-50.00) ALT (4-49) U/L 07/30/23 07/30/23 Range/Units 08:37 08:37 RBC 3.43 L (4.30-5.90) m/uL Hgb 9.8 L (13.0-17.5) gm/dL Hct 31.3 L (39.0-53.0) % Plt Count 149 L (150-450) k/uL Lymphocytes # 0.7 L (1.0-4.8) k/uL Sodium 134 L (137-145) mmol/L Chloride 95 L (98-107) mmol/L BUN 112 H* (9-20) mg/dL Creatinine 1.82 H (0.66-1.25) mg/dL POC Glucose (mg/dL) (70-110) mg/dL Iron (65-175) UG/DL % Saturation (15.00-50.00) ALT 63 H (4-49) U/L Assessment and Plan Plan: Assessment: 1. Chronic kidney disease stage IIIb secondary to cardiorenal syndrome and diabetic kidney disease. Baseline creatinine 1.8-2. GFR currently near baseline. No hydronephrosis noted on CAT scan. Elevated BUN due to chronic kidney disease and also from steroids. No evidence of GI bleed. 2. Acute on chronic systolic CHF with ejection fraction of 20 to 25% with moderate to severe pulmonary hypertension. 3. Fluid overload. Improving with diuresis. 4. Coronary artery disease with prior stenting. 5. Diabetes mellitus. 6. Hypervolemic hyponatremia with component of hypertonicity from hyperglycemia. Stable. 7. Anemia of chronic kidney disease. Rule out iron deficiency. Plan: Maintain Lasix drip. Maintain metolazone 5 mg once daily. Continue SGLT2i. Low-salt diet and 1500 cc fluid restriction. Follow-up urinalysis. Avoid nephrotoxins. Continue to monitor renal function and urine output. Strict I's and O's. Check iron studies.
[2023-07-30 11:22] LABS: Glucose,Whole Blood 228 mg/dL (70-110)
--- NOTE | 2023-07-30 15:38 | P.PN ---
Subjective Progress Note Date: 07/30/23 Principal diagnosis: Liver cirrhosis This is a pleasant 63-year-old male with past medical history of congestive heart failure, coronary artery disease, COPD requiring home oxygen, diabetes mellitus, hyperlipidemia, hypertension, myocardial infarction, chronic renal disease, and cirrhosis of the liver due to alcoholism and history of hepatitis C which was treated. Patient was admitted to the hospital for shortness of breath and NSTEMI. He has been here for 1 weeks duration with complaints of abdominal distention and discomfort. He states he has not had any alcohol for many years and no IV drug use either. Unfortunately he has not been following with a primary care provider until recently where he got established with Dr. Lackey. He has not been following with any gastroenterology for his underlying liver disease but has seen Dr. Zaidi in the past. He has been diagnosed with cirrhosis of the liver, liver disease for several years now. Last paracentesis about 2 years ago. States he has not been taking any medications at home. He had a ultrasound of the abdomen done on 07/24/2023 that reported no drainable ascites identified. He was still complaining of abdominal discomfort and distention and a CT of the abdomen pelvis was ordered and completed this mo rning. Which reports of volume overload with small bilateral pleural effusions, diffuse anasarca and small volume ascites throughout the abdomen and pelvis. Colonic diverticulosis without evidence for acute diverticulitis. Subtle surface nodularity of the liver correlate for possible cirrhosis. Paracentesis with fluid studies are ordered patient is pending paracentesis if there is enough fluid for removal. He currently has shortness of breath but denies any current chest pain. Nephrology is consulted for acute on chronic kidney disease. Today's labs WBC 5.4 hemoglobin 10.9 hematocrit 34 platelet count 146,000 sodium 134 potassium 5.3 BUN 107 creatinine 1.7 glucose 235 total bilirubin 0.4 AST 45 ALT 59 alkaline phosphatase 77 ammonia 11 07/30/2023 Patient seen and examined as a follow-up. He is sitting up at the bedside. States abdomen feels a little less swollen. He remains on a Lasix drip. WBC 7.3 hemoglobin 9.8 platelet count 149,000 sodium 134 potassium 4.3 BUN 112 creatinine 1.8 total bilirubin 0.6 AST 53 ALT 63 alkaline phosphatase 98 Objective - Vital Signs Vital signs: Vital Signs Temp 98 F 07/30/23 04:00 Pulse 73 01/31/24 04:00 Resp 18 07/30/23 04:00 BP 153/77 07/30/23 04:00 Pulse Ox 100 07/30/23 04:00 FiO2 Intake & Output 07/29/23 07/30/23 07/30/23 18:59 06:59 18:59 Intake Total 1520 817.000 Output Total 700 Balance 820 817.000 Weight 86 kg Intake: IV 10 Invasive Line 4 10 Intake, IV Titration 170.000 Amount Furosemide 100 mg In 170.000 Sodium Chloride 0.9% 90 ml @ 10 MG/HR 10 mls/hr IV .Q10H [facility] Rx#: [id number] Oral 1520 637 Output: Urine 700 Other: Voiding Method Toilet Toilet Urinal # Voids 3 - Exam General appearance: The patient is alert, oriented, appears in no acute distress. HET: Head is normocephalic and atraumatic. Conjunctiva pink. Sclera anicteric. Neck: Supple without lymphadenopathy. Trachea midline. Abdomen: Distended, tympanic, generalized anasarca, mild tenderness. No guarding or rigidity. Skin: Sores on upper extremities that appear to be picking and old scabs and blood. No jaundice. Extremities: Lower extremity edema bilaterally, lower extremities with dressings intact. Neurological: No focal deficits. Alert and oriented x3. - Labs CBC & Chem 7: 07/30/23 08:37 07/30/23 08:37 Labs: Abnormal Lab Results - Last 24 Hours (Table) 07/29/23 07/29/23 07/29/23 Range/Units 07:00 16:40 19:54 POC Glucose (mg/dL) 420 H 294 H (70-110) mg/dL Iron 32 L (65-175) UG/DL % Saturation 7.48 L (15.00-50.00) Assessment and Plan (1) Cirrhosis of liver Narrative/Plan: 63-year-old male with history of liver disease secondary to alcoholic cirrhosis as well as hepatitis C due to IV drug use. Patient has not been following with any PCP or gastroenterology for some time and has not been taking medications. Denies any current alcohol use states it has been several years since any alcohol or drug use. He was treated for his hepatitis C and states that it had been cured. Currently having abdominal distention however mostly tympanic and very small amount of ascites noted on CT abdomen and pelvis and no significant ascites on previous ultrasound. Patient also has acute on chronic kidney disease which nephrology is following. They are starting patient on a Lasix drip at 10 cc an hour will defer any diuretic management to nephrology. Current Visit: Yes Status: Acute Code(s): K74.60 - UNSPECIFIED CIRRHOSIS OF LIVER SNOMED Code(s): 60595717 (2) History of hepatitis C virus infection Current Visit: Yes Status: Acute Code(s): Z86.19 - PERSONAL HISTORY OF OTHER INFECTIOUS AND PARASITIC DISEASES SNOMED Code(s): 13782685456329 (3) Congestive heart failure Current Visit: Yes Status: Acute Code(s): I50.9 - HEART FAILURE, UNSPECIFIED SNOMED Code(s): 46541039 (4) Abdominal pain Current Visit: No Status: Acute Code(s): R10.9 - UNSPECIFIED ABDOMINAL PAIN SNOMED Code(s): 32712569 (5) Chronic kidney disease Current Visit: Yes Status: Acute Code(s): N18.9 - CHRONIC KIDNEY DISEASE, UNSPECIFIED SNOMED Code(s): 845914461 (6) Fluid overload Current Visit: Yes Status: Acute Code(s): E87.70 - FLUID OVERLOAD, UNSP ECIFIED SNOMED Code(s): 09249124 (7) Diabetes mellitus Current Visit: Yes Status: Acute Code(s): E11.9 - TYPE 2 DIABETES MELLITUS WITHOUT COMPLICATIONS SNOMED Code(s): 96044455 Plan: 1. Continue symptomatic and supportive care 2. Diuretic management per nephrology 3. Recommend low-sodium diet/renal diet 4. Continue with alcohol abstinence 5. Only small amount of ascites noted on ultrasound. Paracentesis as needed 6. Encourage medical compliance and outpatient follow-up with gastroenterology Thank you for this consultation, we will continue to follow. Dr. Te Zaidi I agree with the dictator's note, documented as a scribe by Ce Duran.
[2023-07-30 16:21] LABS: Glucose,Whole Blood 313 mg/dL (70-110)
[2023-07-30 17:19] LABS: % Iron Saturation 7.65 (15.00-50.00); Ferritin 57.5 ng/mL (22.0-322.0)
[2023-07-30 20:14] LABS: Glucose,Whole Blood 164 mg/dL (70-110)
--- NOTE | 2023-07-31 05:04 | PN ---
PROGRESS NOTE SUBJECTIVE: This is a 63-year-old white male with CHF, COPD, on Lasix drip, Zaroxolyn, appears to be losing some water weight now, adjusted the patient's fluids during legs. OBJECTIVE: CARDIOVASCULAR: S1, S2. LUNGS: Transmitted upper sounds. GI: Soft. HEMATOLOGY: Negative for Homans. PSYCH: Fair mood and affect. Continue current treatments IV diuresis at home over the next 48 hours may be, increased ambulation. Continue with oxygen and breathing treatments etc. Prognosis guarded. MMODL / IJN: [id number] /
[2023-07-31 06:02] LABS: Glucose,Whole Blood 92 mg/dL (70-110)
[2023-07-31 09:34] LABS: Appearance,Urine Clear (Clear); Bilirubin,Urine Negative (Negative); Blood,Urine Negative (Negative); Color,Urine Colorless; Glucose,Urine (UA) Trace (Negative); Ketones,Urine Negative (Negative); Leukocyte Esterase,Urine Negative (Negative); Nitrite,Urine Negative (Negative); PH, Urine 6.5 (5.0-8.0); Protein,Urine Trace (Negative); Specific Gravity,Urine 1.006 (1.001-1.035); Urobilinogen,Urine <2.0 mg/dL (<2.0)
[2023-07-31] MEDS: SODIUM FERRIC GLUCONAT-SUCROSE 125 MG in SODIUM CHLORIDE 0.9% 100 ML IVPB SCH (09:56)
[2023-07-31 11:05] LABS: African American GFR (CKD) 48 (>60 ml/min/1.73 sqM); Anion Gap 7 mmol/L; Calcium 8.6 mg/dL (8.4-10.2); Carbon Dioxide 38 mmol/L (22-30); Chloride 89 mmol/L (98-107); Glucose 127 mg/dL (74-99); Magnesium 2.1 mg/dL (1.6-2.3); Non-African American GFR(CKD) 41 (>60 ml/min/1.73 sqM); Potassium 4.2 mmol/L (3.5-5.1); Sodium 134 mmol/L (137-145)
[2023-07-31 11:15] LABS: Blood Urea Nitrogen 117 mg/dL (9-20)
[2023-07-31 11:32] LABS: Glucose,Whole Blood 157 mg/dL (70-110)
--- NOTE | 2023-07-31 11:39 | P.PN ---
Subjective Patient is seen in follow-up for acute kidney injury on chronic kidney disease. Renal function stable. On Lasix drip. Admits to good urine output. Feels better. Weight trending down. Denies chest pain or shortness of breath. Vital signs are stable. On nasal cannula. General: No acute distress. HEENT: Head exam is unremarkable. LUNGS: No audible rhonchi or wheezes. HEART: Rate and Rhythm are regular. ABDOMEN: Nontender, distention noted. EXTREMITITES: 2+ edema. Chronic changes noted. Objective - Vital Signs Vital signs: Vital Signs Temp 96.1 F L 07/31/23 11:07 Pulse 76 07/31/23 11:07 Resp 18 07/31/23 11:07 BP 146/67 07/31/23 11:07 Pulse Ox 97 07/31/23 11:07 FiO2 Intake & Output 07/30/23 07/31/23 07/31/23 18:59 06:59 18:59 Intake Total 804 562.667 580 Output Total 950 350 Balance 804 -387.333 230 Weight 82.8 kg Intake: IV 10 Invasive Line 4 10 Intake, IV Titration 100 82.667 100 Amount Furosemide 100 mg In 100 82.667 100 Sodium Chloride 0.9% 90 ml @ 10 MG/HR 10 mls/hr IV .Q10H [facility] Rx#: [id number] Oral 694 480 480 Output: Urine 950 350 Other: Voiding Method Toilet Toilet Toilet Urinal - Labs CBC & Chem 7: 07/30/23 08:37 07/31/23 09:45 Labs: Abnormal Lab Results - Last 24 Hours (Table) 07/30/23 07/30/23 07/30/23 Range/Units 08:37 16:10 20:13 Sodium (137-145) mmol/L Chloride (98-107) mmol/L Carbon Dioxide (22-30) mmol/L BUN (9-20) mg/dL Creatinine (0.66-1.25) mg/dL Glucose (74-99) mg/dL POC Glucose (mg/dL) 313 H 164 H (70-110) mg/dL Iron 31 L (65-175) UG/DL % Saturation 7.65 L (15.00-50.00) Urine Protein (Negative) Urine Glucose (UA) (Negative) 07/31/23 07/31/23 07/31/23 Range/Units 09:05 09:45 11:31 Sodium 134 L (137-145) mmol/L Chloride 89 L (98-107) mmol/L Carbon Dioxide 38 H (22-30) mmol/L BUN 117 H* (9-20) mg/dL Creatinine 1.71 H (0.66-1.25) mg/dL Glucose 127 H (74-99) mg/dL POC Glucose (mg/dL) 157 H (70-110) mg/dL Iron (65-175) UG/DL % Saturation (15.00-50.00) Urine Protein Trace H (Negative) Urine Glucose (UA) Trace H (Negative) Assessment and Plan Plan: Assessment: 1. Chronic kidney disease stage IIIb secondary to cardiorenal syndrome and diabetic kidney disease. Baseline creatinine 1.8-2. GFR currently near baseline. No hydronephrosis noted on CAT scan. Elevated BUN due to chronic kidney disease and also from steroids. No evidence of GI bleed. UA fairly benign. 2. Acute on chronic systolic CHF with ejection fraction of 20 to 25% with moderate to severe pulmonary hypertension. 3. Fluid overload. Improving with diuresis. 4. Coronary artery disease with prior stenting. 5. Diabetes mellitus. 6. Hypervolemic hyponatremia with component of hypertonicity from hyperglyc emia. Stable. 7. Anemia of chronic kidney disease. Iron deficiency noted. Plan: Maintain Lasix drip. Maintain metolazone 5 mg once daily. Continue SGLT2i. Low-salt diet and 1500 cc fluid restriction. Avoid nephrotoxins. Continue to monitor renal function and urine output. Strict I's and O's. Maintain IV iron. Started July 31, 2023.
--- NOTE | 2023-07-31 15:46 | P.PN ---
Subjective Progress Note Date: 07/31/23 Principal diagnosis: Liver cirrhosis This is a pleasant 63-year-old male with past medical history of congestive heart failure, coronary artery disease, COPD requiring home oxygen, diabetes mellitus, hyperlipidemia, hypertension, myocardial infarction, chronic renal disease, and cirrhosis of the liver due to alcoholism and history of hepatitis C which was treated. Patient was admitted to the hospital for shortness of breath and NSTEMI. He has been here for 1 weeks duration with complaints of abdominal distention and discomfort. He states he has not had any alcohol for many years and no IV drug use either. Unfortunately he has not been following with a primary care provider until recently where he got established with Dr. Lackey. He has not been following with any gastroenterology for his underlying liver disease but has seen Dr. Zaidi in the past. He has been diagnosed with cirrhosis of the liver, liver disease for several years now. Last paracentesis about 2 years ago. States he has not been taking any medications at home. He had a ultrasound of the abdomen done on 07/24/2023 that reported no drainable ascites identified. He was still complaining of abdominal discomfort and distention and a CT of the abdomen pelvis was ordered and completed this mo rning. Which reports of volume overload with small bilateral pleural effusions, diffuse anasarca and small volume ascites throughout the abdomen and pelvis. Colonic diverticulosis without evidence for acute diverticulitis. Subtle surface nodularity of the liver correlate for possible cirrhosis. Paracentesis with fluid studies are ordered patient is pending paracentesis if there is enough fluid for removal. He currently has shortness of breath but denies any current chest pain. Nephrology is consulted for acute on chronic kidney disease. Today's labs WBC 5.4 hemoglobin 10.9 hematocrit 34 platelet count 146,000 sodium 134 potassium 5.3 BUN 107 creatinine 1.7 glucose 235 total bilirubin 0.4 AST 45 ALT 59 alkaline phosphatase 77 ammonia 11 07/30/2023 Patient seen and examined as a follow-up. He is sitting up at the bedside. States abdomen feels a little less swollen. He remains on a Lasix drip. WBC 7.3 hemoglobin 9.8 platelet count 149,000 sodium 134 potassium 4.3 BUN 112 creatinine 1.8 total bilirubin 0.6 AST 53 ALT 63 alkaline phosphatase 98 07/31/2023 Patient seen and examined today as a follow-up. He is without any new complaints. Abdomen is still a little sore but improving. No other complaints at this time. He remains on IV Lasix drip per nephrology Objective - Vital Signs Vital signs: Vital Signs Temp 96.1 F L 07/31/23 07:16 Pulse 99 07/31/23 07:16 Resp 18 07/31/23 07:16 BP 161/77 07/31/23 07:16 Pulse Ox 99 07/31/23 07:16 FiO2 Intake & Output 07/30/23 07/31/23 07/31/23 18:59 06:59 18:59 Intake Total 804 562.667 480 Output Total 950 350 Balance 804 -387.333 130 Weight 82.8 kg Intake: IV 10 Invasive Line 4 10 Intake, IV Titration 100 82.667 Amount Furosemide 100 mg In 100 82.667 Sodium Chloride 0.9% 90 ml @ 10 MG/HR 10 mls/hr IV .Q10H [facility] Rx#: [id number] Oral 694 480 480 Output: Urine 950 350 Other: Voiding Method Toilet Toilet Toilet Urinal - Exam General appearance: The patient is alert, oriented, appears in no acute distress. HET: Head is normocephalic and atraumatic. Conjunctiva pink. Sclera anicteric. Neck: Supple without lymphadenopathy. Trachea midline. Abdomen: Soft, generalized anasarca, mild tenderness, ecchymosis and central abdomen. No guarding or rigidity. Skin: Sores on upper extremities that appear to be picking and old scabs and blood. No jaundice. Extremities: Lower extremity edema bilaterally, lower extremities with dressings intact. Neurological: No focal deficits. Alert and oriented x3. - Labs CBC & Chem 7: 07/30/23 08:37 07/31/23 09:45 Labs: Abnormal Lab Results - Last 24 Hours (Table) 07/30/23 07/30/23 07/30/23 Range/Units 08:37 08:37 11:20 Sodium 134 L (137-145) mmol/L Chloride 95 L (98-107) mmol/L BUN 112 H* (9-20) mg/dL Creatinine 1.82 H (0.66-1.25) mg/dL POC Glucose (mg/dL) 228 H (70-110) mg/dL Iron 31 L (65-175) UG/DL % Saturation 7.65 L (15.00-50.00) ALT 63 H (4-49) U/L 07/30/23 07/30/23 Range/Units 16:10 20:13 Sodium (137-145) mmol/L Chloride (98-107) mmol/L BUN (9-20) mg/dL Creatinine (0.66-1.25) mg/dL POC Glucose (mg/dL) 313 H 164 H (70-110) mg/dL Iron (65-175) UG/DL % Saturation (15.00-50.00) ALT (4-49) U/L Assessment and Plan (1) Cirrhosis of liver Narrative/Plan: 63-year-old male with history of liver disease secondary to alcoholic cirrhosis as well as hepatitis C due to IV drug use. Patient has not been following with any PCP or gastroenterology for some time and has not been taking medications. Denies any current alcohol use states it has been several years since any alcohol or drug use. He was treated for his hepatitis C and states that it had been cured. Currently having abdominal distention however mostly tympanic and very small amount of ascites noted on CT abdomen and pelvis and no significant ascites on previous ultrasound. Patient also has acute on chronic kidney disease which nephrology is following. They are starting patient on a Lasix drip at 10 cc an hour will defer any diuretic management to nephrology. Current Visit: Yes Status: Acute Code(s): K74.60 - UNSPECIFIED CIRRHOSIS OF LIVER SNOMED Code(s): 41105342 (2) History of hepatitis C virus infection Current Visit: Yes Status: Acute Code(s): Z86.19 - PERSONAL HISTORY OF OTHER INFECTIOUS AND PARASITIC DISEASES SNOMED Code(s): 11357402081318 (3) Congestive heart failure Current Visit: Yes Status: Acute Code(s): I50.9 - HEART FAILURE, UNSPECIFIED SNOMED Code(s): 98718146 (4) Abdominal pain Current Visit: No Status: Acute Code(s): R10.9 - UNSPECIFIED ABDOMINAL PAIN SNOMED Code(s): 90393108 (5) Chronic kidney disease Current Visit: Yes Status: Acute Code(s): N18.9 - CHRONIC KIDNEY DISEASE, UNSPECIFIED SNOMED Code(s): 203399522 (6) Fluid overload Current Visit: Yes Status: Acute Code(s): E87.70 - FLUID OVERLOAD, UNSPECIFIED SNOMED Code(s): 54151123 (7) Diabetes mellitus Current Visit: Yes Status: Acute Code(s): E11.9 - TYPE 2 DIABETES MELLITUS WITHOUT COMPLICATIONS SNOMED Code(s): 60205435 Plan: 1. Continue symptomatic and supportive care 2. Diuretic management per nephrology 3. Recommend low-sodium diet/renal diet 4. Continue with alcohol abstinence 5. Only small amount of ascites noted on ultrasound. Paracentesis as needed 6. Encourage medical compliance and outpatient follow-up with gastroenterology Thank you for this consultation, we will sign off at this time.. Dr. Te Zaidi I agree with the dictator's note, documented as a scribe by Ce Duran.
[2023-07-31 16:53] LABS: Glucose,Whole Blood 297 mg/dL (70-110)
--- NOTE | 2023-07-31 19:50 | P.PN ---
Subjective Progress Note Date: 07/31/23 HISTORY OF PRESENT ILLNESS: This is a 63-year-old male with a past medical history significant for coronary artery disease with previous stenting, ischemic cardiomyopathy, hypertension, hyperlipidemia, nicotine dependence, and former alcohol abuse. Patient has not followed in the office since 2015, however at that time he saw Dr. Soni. We have been asked to see the patient in consultation for CHF. Patient examined at the bedside in the emergency room. Patient presented to the hospital yesterday with a chief complaint of shortness of breath. He states he has been feeling short of breath for the past few days at home. He reports home oxygen use and states he utilizes O2 20/01. He reports increased lower extremity edema and also increased abdominal bloating. He reports a weight gain of about 12 pounds over the past week. The patient states he has been taking his medications as prescribed until recently when he began to run out of some of them. He is unsure which ones he ran out of but he believes one of them is a diuretic and another 1 is a blood pressure pill. He reports an episode of chest pain yesterday at home after walking to the bathroom. He states the pain lasted for about 2 minutes and then resolved on its own. He denies any further episodes of chest pain or pressure since that time. The patient reports he has not smoked in 2 or 3 months. He also reports he has not drank alcohol in over 30 years. Patient's blood pressure is elevated at the time of examination with a systolic in the 150s. Bedside telemetry reveals sinus mechanism with a heart rate in the 70s. DIAGNOSTICS: EKG reveals sinus mechanism with T wave inversions in inferior leads and V5V6, similar to previous EKG Chest xray mild CHF. Bilateral pleural effusions. Worse on the left. Laboratory data: Sodium 133. Potassium 5.9. However specimen is hemolyzed. BUN 34. Creatinine 1.51. Troponin 0.149. proBNP 25,700. Current home cardiac medications include medication list is not updated at the time of dictation Most recent echocardiogram obtained in March 2023 revealed ejection fraction 20 to 25%, mild to moderate TR, trace MR, and calcified aortic valve without significant stenosis Cardiac catheterization history: January 2016 revealing intermediate in-stent restenosis of the RCA, mild to moderate nonobstructive coronary artery disease involving the left coronary system, normal left ventricular systolic function. 07/23/2023 Patient examined this morning at the bedside. Patient complains of back pain this morning. He continues to report SOB. He remains on IV lasix. He continues to be volume overloaded. Creatinine today 1.57. BUN 49. Blood pressure remains elevated although improved from yesterday. July 24, 2023 Patient examined this morning at bedside. Patient denies chest pain or pressure. He continues to report shortness of breath, although improved from yesterday. Remains on IV diuretics. Kidney function remained stable today. Creatinine 1.69. He continues to have abdominal distention, although improving. Vital signs are stable. Most recent blood pressure 147/49. July 25, 2023 Patient examined this morning at the bedside. Patient denies chest pain or pressure. He continues to report shortness of breath. Creatinine today is increased from 1.6-1.9. He is currently on 60 mg of Lasix twice a day. Telemetry reveals sinus mechanism. Abdominal ultrasound was performed with out evidence for significant ascites July 26, 2023 Patient examined this morning at the bedside. Patient denies chest pain or pressure. He currently denies shortness of breath. He complains of continued abdominal bloating this morning and pain with ambulation due to the swelling in his legs. He remains on IV Lasix 40 mg twice a day. Creatinine 1.84 today. July 27, 2023 Patient examined this morning at the bedside. He currently denies chest pain or pressure. He reports improvement in his shortness of breath. He continues to complain of abdominal bloating this morning and lower extremity edema. He remains on IV Lasix 40 mg every 12 hours. Creatinine is stable today at 1.92. Most recent blood pressure 138/80. 07/28 Patient is complaining of abdominal distention. He states his breathing is a little bit better since he is coming to the hospital. He continues to have lower extremity edema. He states he is urinating a lot. Blood pressure 136/77. Heart rate is in the 70s, pulse ox 98% on room air. Patient's weight appears to be elevated. He is maintained on Lasix 40 mg IV every 12 hours. 07/29 Patient denies having any chest pain and no pressure. He has ongoing concern regarding abdominal discomfort and distention. Nephrology has started the patient on Lasix drip at 10 mg/h and has been started on metolazone 5 mg daily. Patient states he is feel to urinals in the last 1 hour. Blood pressure 147/89, heart rate in the 70s. Repeat blood work reveals hemoglobin 10.9, BUN 107 creatinine 1.77, sodium 134, potassium 5.3. 07/30 Patient states he has finally noticed improvement of the abdominal distention and improvement of fluid. He was started yesterday on Lasix drip and metolazone. Yesterday we increased hydralazine and Isordil. Blood pressure 157/74, heart rate in the 70s. Repeat blood work reveals hemoglobin 9.8, platelet count 149. Sodium 134, potassium 4.3, BUN 112 and creatinine 1.82. 07/31/2023 He reports that his abdominal swelling is improved. Legs are still swollen and wrapped. No chest pain. Kidneys are stable, creat 1.71. Blood pressure is still elevated. PHYSICAL EXAM: VITAL SIGNS: Reviewed. GENERAL: Well-developed in no acute distress. HEENT: Head is normocephalic. Pupils are equal, round. Sclerae anicteric. Mucous membranes of the mouth are moist. Neck supple. LUNGS: Respirations even and unlabored. Lungs diminished at the bases HEART: Regular rate and rhythm. S1 and S2 heard. Soft systolic murmur noted. ABDOMEN: Distended, +bruise. EXTREMITIES: No clubbing or cyanosis. Peripheral pulses intact. 2+ bilateral pitting lower extremity edema, wraps in place. NEUROLOGIC: Awake and alert. Oriented x 3. ASSESSMENT: Acute on chronic heart failure with reduced ejection fraction, 25%, proBNP 25,700 Elevated troponin, suspect secondary to type II [place] secondary to oxygen supply de blaze mismatch Coronary artery disease with previous stenting of the RCA Mild to moderate nonobstructive CAD involving left coronary system Ischemic cardiomyopathy Acute on chronic kidney disease Chronic hypoxic respiratory failure on home O2, 24/ History of COPD Hypertension Hyperlipidemia History of ascites with previous paracentesis, x 4 per patient Former nicotine dependence, patient quit smoking 2 to 3 months ago Former alcohol abuse, patient states he has not drank in 30 years History of medication noncompliance Hyponatremia Hyperkalemia PLAN: Continue metolazone and Lasix drip per nephrology Daily weights, accurate I&O, and monitoring of kidney function Continue additional cardiac medications Increase hydralazine to 100 mg 3 times daily and continue Isordil 40 mg 3 times daily to improve afterload. Further recommendations pending patient course Nurse practitioner note has been reviewed by physician. Signing provider agrees with the documented findings, assessment, and plan of care. Objective - Vital Signs Vital signs: Vital Signs Temp 97.2 F L 07/31/23 16:30 Pulse 86 07/31/23 16:34 Resp 18 07/31/23 16:30 BP 134/61 07/31/23 16:30 Pulse Ox 100 07/31/23 16:30 FiO2 Intake & Output 07/31/23 07/31/23 08/01/23 06:59 18:59 06:59 Intake Total 375.617 5217 Output Total 950 350 Balance -387.333 810 Weight 82.8 kg Intake: Intake, IV Titration 82.667 100 Amount Furosemide 100 mg In 82.667 100 Sodium Chloride 0.9% 90 ml @ 10 MG/HR 10 mls/hr IV .Q10H [facility] Rx#: [id number] Oral 480 1060 Output: Urine 950 350 Other: Voiding Method Toilet Toilet - Labs CBC & Chem 7: 07/30/23 08:37 07/31/23 09:45 Labs: Abnormal Lab Results - Last 24 Hours (Table) 07/30/23 07/31/23 07/31/23 Range/Units 20:13 09:05 09:45 Sodium 134 L (137-145) mmol/L Chloride 89 L (98-107) mmol/L Carbon Dioxide 38 H (22-30) mmol/L BUN 117 H* (9-20) mg/dL Creatinine 1.71 H (0.66-1.25) mg/dL Glucose 127 H (74-99) mg/dL POC Glucose (mg/dL) 164 H (70-110) mg/dL Urine Protein Trace H (Negative) Urine Glucose (UA) Trace H (Negative) 07/31/23 07/31/23 Range/Units 11:31 16:40 Sodium (137-145) mmol/L Chloride (98-107) mmol/L Carbon Dioxide (22-30) mmol/L BUN (9-20) mg/dL Creatinine (0.66-1.25) mg/dL Glucose (74-99) mg/dL POC Glucose (mg/dL) 157 H 297 H (70-110) mg/dL Urine Protein (Negative) Urine Glucose (UA) (Negative)
[2023-07-31 20:41] LABS: Glucose,Whole Blood 192 mg/dL (70-110)
[2023-07-31] MEDS: hydrALAZINE HCL 50 MG TAB PO SCH (21:32)
--- NOTE | 2023-08-01 01:16 | PN ---
PROGRESS NOTE SUBJECTIVE: The patient is improved. His abdominal swelling is decreased with IV Lasix, Zaroxolyn, possibly go home in next 24 to 48 hours depending on his breathing and renal function. Get IV iron for anemia. Treat for COPD. OBJECTIVE: VITAL SIGNS: Temperature 97.4, pulse 78, respiratory rate 16 to 20, blood pressure is 130s to 150s over 60s to 90s, 93 on room air. CARDIOVASCULAR: S1, S2. LUNGS: Scattered rhonchi and wheeze. HEMATOLOGY: 2 to 3+ edema. GI: Soft. PLAN: Continue current treatment with PT OT. Elevated BUN and creatinine, we stopped IV Solu- Medrol and oral steroids. , prognosis guarded. Continue current treatment. MMODL / IJN: [id number] /
[2023-08-01 06:09] LABS: Glucose,Whole Blood 91 mg/dL (70-110)
[2023-08-01 08:52] LABS: Basophils % (A) 0 %; Eosinophils # (A) 0.1 k/uL (0-0.7); Eosinophils % (A) 1 %; HCT 31.2 % (39.0-53.0); HGB 10.1 gm/dL (13.0-17.5); Hypochromasia Slight; Lymphocytes # (A) 0.7 k/uL (1.0-4.8); Lymphocytes % (A) 11 %; MCH 28.8 pg (25.0-35.0); MCHC 32.2 g/dL (31.0-37.0); MCV 89.5 fL (80.0-100.0); Monocytes # (A) 0.8 k/uL (0-1.0); Monocytes % (A) 12 %; Neutrophils # (A) 5.1 k/uL (1.3-7.7); Neutrophils % (A) 75 %; Platelet Count 165 k/uL (150-450); RBC 3.48 m/uL (4.30-5.90); RDW 14.8 % (11.5-15.5); WBC 6.8 k/uL (3.8-10.6)
[2023-08-01 09:31] LABS: ALT 65 U/L (4-49); AST 58 U/L (17-59); African American GFR (CKD) 40 (>60 ml/min/1.73 sqM); Albumin 3.8 g/dL (3.5-5.0); Alkaline Phosphatase 86 U/L (38-126); Anion Gap 8 mmol/L; Calcium 8.3 mg/dL (8.4-10.2); Carbon Dioxide 35 mmol/L (22-30); Chloride 89 mmol/L (98-107); Glucose 163 mg/dL (74-99); Magnesium 2.1 mg/dL (1.6-2.3); Non-African American GFR(CKD) 35 (>60 ml/min/1.73 sqM); Potassium 4.5 mmol/L (3.5-5.1); Sodium 132 mmol/L (137-145); Total Bilirubin 0.6 mg/dL (0.2-1.3); Total Protein 6.3 g/dL (6.3-8.2)
[2023-08-01 09:48] LABS: Blood Urea Nitrogen 128 mg/dL (9-20)
--- NOTE | 2023-08-01 10:14 | P.PN ---
Subjective Patient is seen in follow-up for acute kidney injury on chronic kidney disease. Renal function worse from diuresis. On Lasix drip. Admits to good urine output. Urine output not accurately measured. Weight trending down. Denies chest pain or shortness of breath. Feels better overall. Vital signs are stable. On nasal cannula. General: No acute distress. HEENT: Head exam is unremarkable. LUNGS: No audible rhonchi or wheezes. HEART: Rate and Rhythm are regular. ABDOMEN: Nontender, distention noted. EXTREMITITES: 2+ edema. Chronic changes noted. Objective - Vital Signs Vital signs: Vital Signs Temp 97.5 F L 08/01/23 07:35 Pulse 84 08/01/23 08:25 Resp 18 08/01/23 07:35 BP 132/75 08/01/23 07:35 Pulse Ox 97 08/01/23 08:10 FiO2 Intake & Output 07/31/23 08/01/23 08/01/23 18:59 06:59 18:59 Intake Total 1160 100 240 Output Total 350 Balance 810 100 240 Intake: Intake, IV Titration 100 100 Amount Furosemide 100 mg In 100 100 Sodium Chloride 0.9% 90 ml @ 10 MG/HR 10 mls/hr IV .Q10H [facility] Rx#: [id number] Oral 1060 240 Output: Urine 350 Other: Voiding Method Toilet Toilet Toilet - Labs CBC & Chem 7: 08/01/23 08:27 08/01/23 08:27 Labs: Abnormal Lab Results - Last 24 Hours (Table) 07/31/23 07/31/23 07/31/23 Range/Units 09:45 11:31 16:40 RBC (4.30-5.90) m/uL Hgb (13.0-17.5) gm/dL Hct (39.0-53.0) % Lymphocytes # (1.0-4.8) k/uL Sodium 134 L (137-145) mmol/L Chloride 89 L (98-107) mmol/L Carbon Dioxide 38 H (22-30) mmol/L BUN 117 H* (9-20) mg/dL Creatinine 1.71 H (0.66-1.25) mg/dL Glucose 127 H (74-99) mg/dL POC Glucose (mg/dL) 157 H 297 H (70-110) mg/dL Calcium (8.4-10.2) mg/dL ALT (4-49) U/L 07/31/23 08/01/23 08/01/23 Range/Units 20:28 08:27 08:27 RBC 3.48 L (4.30-5.90) m/uL Hgb 10.1 L (13.0-17.5) gm/dL Hct 31.2 L (39.0-53.0) % Lymphocytes # 0.7 L (1.0-4.8) k/uL Sodium 132 L (137-145) mmol/L Chloride 89 L (98-107) mmol/L Carbon Dioxide 35 H (22-30) mmol/L BUN 128 H* (9-20) mg/dL Creatinine 1.98 H (0.66-1.25) mg/dL Glucose 163 H (74-99) mg/dL POC Glucose (mg/dL) 192 H (70-110) mg/dL Calcium 8.3 L (8.4-10.2) mg/dL ALT 65 H (4-49) U/L Assessment and Plan Plan: Assessment: 1. Chronic kidney disease stage IIIb secondary to cardiorenal syndrome and diabetic kidney disease. Baseline creatinine 1.8-2. GFR currently near baseline. No hydronephrosis noted on CAT scan. Elevated BUN due to chronic kidney disease and also from steroids. No evidence of GI bleed. UA fairly benign. 2. Acute on chronic systolic CHF with ejection fraction of 20 to 25% with moderate to severe pulmonary hypertension. 3. Fluid overload. Improving with diuresis. 4. Coronary artery disease with prior stenting. 5. Diabetes mellitus. 6. Hypervolemic hyponatremia with component of hypertonicity from hyperglycemia. Stable. 7. Anemia of chronic kidney disease. Iron deficiency noted. Plan: Stop Lasix drip. Add IV Lasix 60 mg twice daily. Maintain metolazone 5 mg once daily. Continue SGLT2i. Low-salt diet and 1500 cc fluid restriction. Avoid nephrotoxins. Continue to monitor renal function and urine output. Strict I's and O's. Maintain IV iron. Started July 31, 2023.
[2023-08-01 11:33] LABS: Glucose,Whole Blood 135 mg/dL (70-110)
--- NOTE | 2023-08-01 14:41 | P.PN ---
Subjective Progress Note Date: 08/01/23 HISTORY OF PRESENT ILLNESS: This is a 63-year-old male with a past medical history significant for coronary artery disease with previous stenting, ischemic cardiomyopathy, hypertension, hyperlipidemia, nicotine dependence, and former alcohol abuse. Patient has not followed in the office since 2015, however at that time he saw Dr. Soni. We have been asked to see the patient in consultation for CHF. Patient examined at the bedside in the emergency room. Patient presented to the hospital yesterday with a chief complaint of shortness of breath. He states he has been feeling short of breath for the past few days at home. He reports home oxygen use and states he utilizes O2 20/01. He reports increased lower extremity edema and also increased abdominal bloating. He reports a weight gain of about 12 pounds over the past week. The patient states he has been taking his medications as prescribed until recently when he began to run out of some of them. He is unsure which ones he ran out of but he believes one of them is a diuretic and another 1 is a blood pressure pill. He reports an episode of chest pain yesterday at home after walking to the bathroom. He states the pain lasted for about 2 minutes and then resolved on its own. He denies any further episodes of chest pain or pressure since that time. The patient reports he has not smoked in 2 or 3 months. He also reports he has not drank alcohol in over 30 years. Patient's blood pressure is elevated at the time of examination with a systolic in the 150s. Bedside telemetry reveals sinus mechanism with a heart rate in the 70s. DIAGNOSTICS: EKG reveals sinus mechanism with T wave inversions in inferior leads and V5V6, similar to previous EKG Chest xray mild CHF. Bilateral pleural effusions. Worse on the left. Laboratory data: Sodium 133. Potassium 5.9. However specimen is hemolyzed. BUN 34. Creatinine 1.51. Troponin 0.149. proBNP 25,700. Current home cardiac medications include medication list is not updated at the time of dictation Most recent echocardiogram obtained in March 2023 revealed ejection fraction 20 to 25%, mild to moderate TR, trace MR, and calcified aortic valve without significant stenosis Cardiac catheterization history: January 2016 revealing intermediate in-stent restenosis of the RCA, mild to moderate nonobstructive coronary artery disease involving the left coronary system, normal left ventricular systolic function. 07/23/2023 Patient examined this morning at the bedside. Patient complains of back pain this morning. He continues to report SOB. He remains on IV lasix. He continues to be volume overloaded. Creatinine today 1.57. BUN 49. Blood pressure remains elevated although improved from yesterday. July 24, 2023 Patient examined this morning at bedside. Patient denies chest pain or pressure. He continues to report shortness of breath, although improved from yesterday. Remains on IV diuretics. Kidney function remained stable today. Creatinine 1.69. He continues to have abdominal distention, although improving. Vital signs are stable. Most recent blood pressure 147/49. July 25, 2023 Patient examined this morning at the bedside. Patient denies chest pain or pressure. He continues to report shortness of breath. Creatinine today is increased from 1.6-1.9. He is currently on 60 mg of Lasix twice a day. Telemetry reveals sinus mechanism. Abdominal ultrasound was performed with out evidence for significant ascites July 26, 2023 Patient examined this morning at the bedside. Patient denies chest pain or pressure. He currently denies shortness of breath. He complains of continued abdominal bloating this morning and pain with ambulation due to the swelling in his legs. He remains on IV Lasix 40 mg twice a day. Creatinine 1.84 today. July 27, 2023 Patient examined this morning at the bedside. He currently denies chest pain or pressure. He reports improvement in his shortness of breath. He continues to complain of abdominal bloating this morning and lower extremity edema. He remains on IV Lasix 40 mg every 12 hours. Creatinine is stable today at 1.92. Most recent blood pressure 138/80. 07/28 Patient is complaining of abdominal distention. He states his breathing is a little bit better since he is coming to the hospital. He continues to have lower extremity edema. He states he is urinating a lot. Blood pressure 136/77. Heart rate is in the 70s, pulse ox 98% on room air. Patient's weight appears to be elevated. He is maintained on Lasix 40 mg IV every 12 hours. 07/29 Patient denies having any chest pain and no pressure. He has ongoing concern regarding abdominal discomfort and distention. Nephrology has started the patient on Lasix drip at 10 mg/h and has been started on metolazone 5 mg daily. Patient states he is feel to urinals in the last 1 hour. Blood pressure 147/89, heart rate in the 70s. Repeat blood work reveals hemoglobin 10.9, BUN 107 creatinine 1.77, sodium 134, potassium 5.3. 07/30 Patient states he has finally noticed improvement of the abdominal distention and improvement of fluid. He was started yesterday on Lasix drip and metolazone. Yesterday we increased hydralazine and Isordil. Blood pressure 157/74, heart rate in the 70s. Repeat blood work reveals hemoglobin 9.8, platelet count 149. Sodium 134, potassium 4.3, BUN 112 and creatinine 1.82. 07/31/2023 He reports that his abdominal swelling is improved. Legs are still swollen and wrapped. No chest pain. Kidneys are stable, creat 1.71. Blood pressure is still elevated. 08/01 Nephrology has taken the patient off Lasix drip and started him on IV 60 mg twice daily. Patient states that his abdominal distention and fluid retention have improved. Blood pressure 160/92, heart rate in the 80s. Repeat blood work reveals hemoglobin of 10.1. BUN 128, creatinine 1.98. Sodium 132, potassium 5.4, chloride 89, CO2 35. PHYSICAL EXAM: VITAL SIGNS: Reviewed. GENERAL: Well-developed in no acute distress. HEENT: Head is normocephalic. Pupils are equal, round. Sclerae anicteric. Mucous membranes of the mouth are moist. Neck supple. LUNGS: Respirations even and unlabored. Lungs diminished at the bases HEART: Regular rate and rhythm. S1 and S2 heard. Soft systolic murmur noted. ABDOMEN: Distended, +bruise. EXTREMITIES: No clubbing or cyanosis. Peripheral pulses intact. 2+ bilateral pitting lower extremity edema, wraps in place. NEUROLOGIC: Awake and alert. Oriented x 3. ASSESSMENT: Acute on chronic heart failure with reduced ejection fraction, 25%, proBNP 25,700 Elevated troponin, suspect secondary to type II DC secondary to oxygen supply demand mismatch Coronary artery disease with previous stenting of the RCA Mild to moderate nonobstructive CAD involving left coronary system Ischemic cardiomyopathy Acute on chronic kidney disease Chronic hypoxic respiratory failure on home O2, 20/01 History of COPD Hypertension Hyperlipidemia History of ascites with previous paracentesis, x 4 per patient Former nicotine dependence, patient quit smoking 2 to 3 months ago Former alcohol abuse, patient states he has not drank in 30 years History of medication noncompliance Hyponatremia Hyperkalemia PLAN: Continue metolazone and Lasix 60 mg twice daily IV push per nephrology Daily weights, accurate I&O, and monitoring of kidney function Continue additional cardiac medications Continue hydralazine 100 mg 3 times daily and continue Isordil 40 mg 3 times daily to improve afterload. Further recommendations pending patient course Nurse practitioner note has been reviewed by physician. Signing provider agrees with the documented findings, assessment, and plan of care. Objective - Vital Signs Vital signs: Vital Signs Temp 97.5 F L 08/01/23 07:35 Pulse 80 08/01/23 11:15 Resp 18 08/01/23 07:35 BP 132/75 08/01/23 07:35 Pulse Ox 97 08/01/23 08:10 FiO2 Intake & Output 07/31/23 08/01/23 08/01/23 18:59 06:59 18:59 Intake Total 1160 100 240 Output Total 350 Balance 810 100 240 Intake: Intake, IV Titration 100 100 Amount Furosemide 100 mg In 100 100 Sodium Chloride 0.9% 90 ml @ 10 MG/HR 10 mls/hr IV .Q10H [facility] Rx#: [id number] Oral 1060 240 Output: Urine 350 Other: Voiding Method Toilet Toilet Toilet - Labs CBC & Chem 7: 08/01/23 08:27 08/01/23 08:27 Labs: Abnormal Lab Results - Last 24 Hours (Table) 07/31/23 07/31/23 07/31/23 Range/Units 11:31 16:40 20:28 RBC (4.30-5.90) m/uL Hgb (13.0-17.5) gm/dL Hct (39.0-53.0) % Lymphocytes # (1.0-4.8) k/uL Sodium (137-145) mmol/L Chloride (98-107) mmol/L Carbon Dioxide (22-30) mmol/L BUN (9-20) mg/dL Creatinine (0.66-1.25) mg/dL Glucose (74-99) mg/dL POC Glucose (mg/dL) 157 H 297 H 192 H (70-110) mg/dL Calcium (8.4-10.2) mg/dL ALT (4-49) U/L 08/01/23 08/01/23 Range/Units 08:27 08:27 RBC 3.48 L (4.30-5.90) m/uL Hgb 10.1 L (13.0-17.5) gm/dL Hct 31.2 L (39.0-53.0) % Lymphocytes # 0.7 L (1.0-4.8) k/uL Sodium 132 L (137-145) mmol/L Chloride 89 L (98-107) mmol/L Carbon Dioxide 35 H (22-30) mmol/L BUN 128 H* (9-20) mg/dL Creatinine 1.98 H (0.66-1.25) mg/dL Glucose 163 H (74-99) mg/dL POC Glucose (mg/dL) (70-110) mg/dL Calcium 8.3 L (8.4-10.2) mg/dL ALT 65 H (4-49) U/L
[2023-08-01 16:10] LABS: Glucose,Whole Blood 552 mg/dL (70-110)
[2023-08-01 16:19] LABS: Glucose,Whole Blood 511 mg/dL (70-110)
[2023-08-01] MEDS: ISOSORBIDE DINITRATE 20 MG TAB PO SCH (17:02)
[2023-08-01] MEDS: SACUBITRIL/VALSARTAN 24 MG-26 MG TABLET PO SCH (17:03)
[2023-08-01 20:08] LABS: Glucose,Whole Blood 188 mg/dL (70-110)
[2023-08-01] MEDS: FORMOTEROL FUMARATE 20 MCG/2 ML NEBU INHALATION SCH (20:49)
[2023-08-01] MEDS: FUROSEMIDE 10 MG/ML 10 ML VIAL IV SCH (21:06)
[2023-08-01] MEDS: INSULIN DETEMIR (LEVEMIR) 100 UNIT/ML SYR SQ SCH (21:07)
--- NOTE | 2023-08-02 04:52 | PN ---
PROGRESS NOTE SUBJECTIVE: A 63-year-old white male, systolic CHF, COPD, pulmonary hypertension, renal disease. Hemoglobin is 10.1, BUN is 128, creatinine is 1.98, GFR is 35. Sugars are mid 100s to 200s up to 500 this afternoon. Blood pressure is now up to 166/79, saturating 100% on 2 L, temp , pulse 70s to 80s respiratory rate 16 to 18. Acute on systolic heart failure. I did put him on Entresto. Gave him some Sildenafil for pulmonary hypertension and gave him Lasix IV q.6 to q.12. OBJECTIVE: VITAL SIGNS: Blood pressure is 160/92, hemoglobin 7.1. ABDOMEN: Abdominal swelling is decreasing. Soft, nontender. EXTREMITIES: 2 to 3+ edema. NEUROLOGIC: Cranial nerves intact. HEAD: Normocephalic, atraumatic. ASSESSMENT: Acute on chronic heart failure with reduced ejection fraction. Elevated troponin. Coronary artery disease, stenting of the RCA, mild to moderate nonobstructive coronary artery disease, ischemic cardiomyopathy, chronic hypoxemic respiratory failure, 24/7 oxygen, COPD, hypertension, dyslipidemia, history of ascites, cirrhosis, ex-alcoholic and a smoker, hyponatremia, hypokalemia. The patient is very guarded. Continue on Lasix, metolazone, decrease his diabetic medicines as the sugars are super high. Continue hydralazine. Prognosis guarded. Please see further orders. MMODL / IJN: [id number] /
[2023-08-02 06:11] LABS: Glucose,Whole Blood 76 mg/dL (70-110)
[2023-08-02 06:29] LABS: Glucose,Whole Blood 55 mg/dL (70-110)
[2023-08-02] MEDS: DEXTROSE 50% SYRINGE 50 ML IVP PRN (06:34)
[2023-08-02 06:58] LABS: Glucose,Whole Blood 135 mg/dL (70-110)
[2023-08-02] MEDS: SILDENAFIL 20 MG TAB PO SCH (09:21)
[2023-08-02 10:04] LABS: African American GFR (CKD) 46 (>60 ml/min/1.73 sqM); Anion Gap 12 mmol/L; Calcium 8.3 mg/dL (8.4-10.2); Carbon Dioxide 32 mmol/L (22-30); Chloride 92 mmol/L (98-107); Glucose 112 mg/dL (74-99); Magnesium 2.4 mg/dL (1.6-2.3); Non-African American GFR(CKD) 39 (>60 ml/min/1.73 sqM); Sodium 136 mmol/L (137-145)
[2023-08-02 10:06] LABS: Blood Urea Nitrogen 118 mg/dL (9-20)
--- NOTE | 2023-08-02 10:16 | P.PN ---
Subjective Progress Note Date: 08/02/23 HISTORY OF PRESENT ILLNESS: This is a 63-year-old male with a past medical history significant for coronary artery disease with previous stenting, ischemic cardiomyopathy, hypertension, hyperlipidemia, nicotine dependence, and former alcohol abuse. Patient has not followed in the office since 2015, however at that time he saw Dr. Soni. We have been asked to see the patient in consultation for CHF. Patient examined at the bedside in the emergency room. Patient presented to the hospital yesterday with a chief complaint of shortness of breath. He states he has been feeling short of breath for the past few days at home. He reports home oxygen use and states he utilizes O2 20/01. He reports increased lower extremity edema and also increased abdominal bloating. He reports a weight gain of about 12 pounds over the past week. The patient states he has been taking his medications as prescribed until recently when he began to run out of some of them. He is unsure which ones he ran out of but he believes one of them is a diuretic and another 1 is a blood pressure pill. He reports an episode of chest pain yesterday at home after walking to the bathroom. He states the pain lasted for about 2 minutes and then resolved on its own. He denies any further episodes of chest pain or pressure since that time. The patient reports he has not smoked in 2 or 3 months. He also reports he has not drank alcohol in over 30 years. Patient's blood pressure is elevated at the time of examination with a systolic in the 150s. Bedside telemetry reveals sinus mechanism with a heart rate in the 70s. DIAGNOSTICS: EKG reveals sinus mechanism with T wave inversions in inferior leads and V5V6, similar to previous EKG Chest xray mild CHF. Bilateral pleural effusions. Worse on the left. Laboratory data: Sodium 133. Potassium 5.9. However specimen is hemolyzed. BUN 34. Creatinine 1.51. Troponin 0.149. proBNP 25,700. Current home cardiac medications include medication list is not updated at the time of dictation Most recent echocardiogram obtained in March 2023 revealed ejection fraction 20 to 25%, mild to moderate TR, trace MR, and calcified aortic valve without significant stenosis Cardiac catheterization history: January 2016 revealing intermediate in-stent restenosis of the RCA, mild to moderate nonobstructive coronary artery disease involving the left coronary system, normal left ventricular systolic function. 07/23/2023 Patient examined this morning at the bedside. Patient complains of back pain this morning. He continues to report SOB. He remains on IV lasix. He continues to be volume overloaded. Creatinine today 1.57. BUN 49. Blood pressure remains elevated although improved from yesterday. July 24, 2023 Patient examined this morning at bedside. Patient denies chest pain or pressure. He continues to report shortness of breath, although improved from yesterday. Remains on IV diuretics. Kidney function remained stable today. Creatinine 1.69. He continues to have abdominal distention, although improving. Vital signs are stable. Most recent blood pressure 147/49. July 25, 2023 Patient examined this morning at the bedside. Patient denies chest pain or pressure. He continues to report shortness of breath. Creatinine today is increased from 1.6-1.9. He is currently on 60 mg of Lasix twice a day. Telemetry reveals sinus mechanism. Abdominal ultrasound was performed with out evidence for significant ascites July 26, 2023 Patient examined this morning at the bedside. Patient denies chest pain or pressure. He currently denies shortness of breath. He complains of continued abdominal bloating this morning and pain with ambulation due to the swelling in his legs. He remains on IV Lasix 40 mg twice a day. Creatinine 1.84 today. July 27, 2023 Patient examined this morning at the bedside. He currently denies chest pain or pressure. He reports improvement in his shortness of breath. He continues to complain of abdominal bloating this morning and lower extremity edema. He remains on IV Lasix 40 mg every 12 hours. Creatinine is stable today at 1.92. Most recent blood pressure 138/80. 07/28 Patient is complaining of abdominal distention. He states his breathing is a little bit better since he is coming to the hospital. He continues to have lower extremity edema. He states he is urinating a lot. Blood pressure 136/77. Heart rate is in the 70s, pulse ox 98% on room air. Patient's weight appears to be elevated. He is maintained on Lasix 40 mg IV every 12 hours. 07/29 Patient denies having any chest pain and no pressure. He has ongoing concern regarding abdominal discomfort and distention. Nephrology has started the patient on Lasix drip at 10 mg/h and has been started on metolazone 5 mg daily. Patient states he is feel to urinals in the last 1 hour. Blood pressure 147/89, heart rate in the 70s. Repeat blood work reveals hemoglobin 10.9, BUN 107 creatinine 1.77, sodium 134, potassium 5.3. 07/30 Patient states he has finally noticed improvement of the abdominal distention and improvement of fluid. He was started yesterday on Lasix drip and metolazone. Yesterday we increased hydralazine and Isordil. Blood pressure 157/74, heart rate in the 70s. Repeat blood work reveals hemoglobin 9.8, platelet count 149. Sodium 134, potassium 4.3, BUN 112 and creatinine 1.82. 07/31/2023 He reports that his abdominal swelling is improved. Legs are still swollen and wrapped. No chest pain. Kidneys are stable, creat 1.71. Blood pressure is still elevated. 08/01 Nephrology has taken the patient off Lasix drip and started him on IV 60 mg twice daily. Patient states that his abdominal distention and fluid retention have improved. Blood pressure 160/92, heart rate in the 80s. Repeat blood work reveals hemoglobin of 10.1. BUN 128, creatinine 1.98. Sodium 132, potassium 5.4, chloride 89, CO2 35. /3 Blood pressure 112/78, heart rate in 70s and 80s, pulse ox 97% on 2 L nasal cannula. Repeat blood work has not been reported at the time of this dictation. Patient continues to have good urine output although he feels it slowed somewhat yesterday and picked up again today. He was transition by nephrology from the Lasix drip to IV Lasix 60 mg twice daily and continued on metolazone and SGLT2i. He has also been undergoing iron infusions. Attending has started the patient on Entresto and Revatio. Patient states that his lower legs started draining last night for about 2 hours. Patient states this improved with leg wraps. PHYSICAL EXAM: VITAL SIGNS: Reviewed. GENERAL: Well-developed in no acute distress. HEENT: Head is normocephalic. Pupils are equal, round. Sclerae anicteric. Mucous membranes of the mouth are moist. Neck supple. LUNGS: Respirations even and unlabored. Lungs diminished at the bases HEART: Regular rate and rhythm. S1 and S2 heard. Soft systolic murmur noted. ABDOMEN: Distended, +bruise. EXTREMITIES: No clubbing or cyanosis. Peripheral pulses intact. 2+ bilateral pitting lower extremity edema, wraps in place. NEUROLOGIC: Awake and alert. Oriented x 3. ASSESSMENT: Acute on chronic heart failure with reduced ejection fraction, 25%, proBNP 25,70 0 Elevated troponin, suspect secondary to type II NM secondary to oxygen supply demand mismatch Coronary artery disease with previous stenting of the RCA Mild to moderate nonobstructive CAD involving left coronary system Ischemic cardiomyopathy Acute on chronic kidney disease Chronic hypoxic respiratory failure on home O2, 20/01 History of COPD Hypertension Hyperlipidemia History of ascites with previous paracentesis, x 4 per patient Former nicotine dependence, patient quit smoking 2 to 3 months ago Former alcohol abuse, patient states he has not drank in 30 years History of medication noncompliance Hyponatremia Hyperkalemia PLAN: Continue metolazone and Lasix increased to 80 mg three times daily IV push Daily weights, accurate I&O, and monitoring of kidney function Continue additional cardiac medications Continue hydralazine 100 mg 3 times daily and continue Isordil 40 mg 3 times daily to improve afterload. Discontinue Revatio Further recommendations pending patient course Nurse practitioner note has been reviewed by physician. Signing provider agrees with the documented findings, assessment, and plan of care. Objective - Vital Signs Vital signs: Vital Signs Temp 97.6 F 08/02/23 04:00 Pulse 80 08/02/23 08:29 Resp 19 08/02/23 04:00 BP 112/78 08/02/23 04:00 Pulse Ox 97 08/02/23 04:00 FiO2 Intake & Output 08/01/23 08/02/23 08/02/23 18:59 06:59 18:59 Intake Total 684 Balance 684 Weight 81.7 kg Intake: Oral 684 Other: Voiding Method Toilet Toilet - Labs CBC & Chem 7: 08/01/23 08:27 08/02/23 07:38 Labs: Abnormal Lab Results - Last 24 Hours (Table) 08/01/23 08/01/23 08/01/23 Range/Units 08:27 08:27 11:32 RBC 3.48 L (4.30-5.90) m/uL Hgb 10.1 L (13.0-17.5) gm/dL Hct 31.2 L (39.0-53.0) % Lymphocytes # 0.7 L (1.0-4.8) k/uL Sodium 132 L (137-145) mmol/L Chloride 89 L (98-107) mmol/L Carbon Dioxide 35 H (22-30) mmol/L BUN 128 H* (9-20) mg/dL Creatinine 1.98 H (0.66-1.25) mg/dL Glucose 163 H (74-99) mg/dL POC Glucose (mg/dL) 135 H (70-110) mg/dL Calcium 8.3 L (8.4-10.2) mg/dL ALT 65 H (4-49) U/L 08/01/23 08/01/23 08/01/23 Range/Units 16:09 16:10 20:06 RBC (4.30-5.90) m/uL Hgb (13.0-17.5) gm/dL Hct (39.0-53.0) % Lymphocytes # (1.0-4.8) k/uL Sodium (137-145) mmol/L Chloride (98-107) mmol/L Carbon Dioxide (22-30) mmol/L BUN (9-20) mg/dL Creatinine (0.66-1.25) mg/dL Glucose (74-99) mg/dL POC Glucose (mg/dL) 552 H 511 H 188 H (70-110) mg/dL Calcium (8.4-10.2) mg/dL ALT (4-49) U/L 08/02/23 08/02/23 Range/Units 06:27 06:57 RBC (4.30-5.90) m/uL Hgb (13.0-17.5) gm/dL Hct (39.0-53.0) % Lymphocytes # (1.0-4.8) k/uL Sodium (137-145) mmol/L Chloride (98-107) mmol/L Carbon Dioxide (22-30) mmol/L BUN (9-20) mg/dL Creatinine (0.66-1.25) mg/dL Glucose (74-99) mg/dL POC Glucose (mg/dL) 55 L 135 H (70-110) mg/dL Calcium (8.4-10.2) mg/dL ALT (4-49) U/L
--- NOTE | 2023-08-02 10:27 | P.PN ---
Subjective Progress Note Date: 08/02/23 Patient is seen in follow-up for acute kidney injury on chronic kidney disease. States he is urinating well and edema is slowly coming down in legs and abdomen. Vital signs are stable. On nasal cannula. General: No acute distress. HEENT: Head exam is unremarkable. LUNGS: No audible rhonchi or wheezes. HEART: Rate and Rhythm are regular. ABDOMEN: Nontender, distention noted. EXTREMITITES: 2+ edema. Chronic changes noted. Objective - Vital Signs Vital signs: Vital Signs Temp 97.5 F L 08/02/23 09:00 Pulse 82 08/02/23 09:00 Resp 20 08/02/23 09:00 BP 122/40 08/02/23 09:00 Pulse Ox 99 08/02/23 09:00 FiO2 Intake & Output 08/01/23 08/02/23 08/02/23 18:59 06:59 18:59 Intake Total 684 Balance 684 Weight 81.7 kg Intake: Oral 684 Other: Voiding Method Toilet Toilet - Labs CBC & Chem 7: 08/01/23 08:27 08/02/23 07:38 Labs: Abnormal Lab Results - Last 24 Hours (Table) 08/01/23 08/01/23 08/01/23 Range/Units 11:32 16:09 16:10 Sodium (137-145) mmol/L Chloride (98-107) mmol/L Carbon Dioxide (22-30) mmol/L BUN (9-20) mg/dL Creatinine (0.66-1.25) mg/dL Glucose (74-99) mg/dL POC Glucose (mg/dL) 135 H 552 H 511 H (70-110) mg/dL Calcium (8.4-10.2) mg/dL Magnesium (1.6-2.3) mg/dL 08/01/23 08/02/23 08/02/23 Range/Units 20:06 06:27 06:57 Sodium (137-145) mmol/L Chloride (98-107) mmol/L Carbon Dioxide (22-30) mmol/L BUN (9-20) mg/dL Creatinine (0.66-1.25) mg/dL Glucose (74-99) mg/dL POC Glucose (mg/dL) 188 H 55 L 135 H (70-110) mg/dL Calcium (8.4-10.2) mg/dL Magnesium (1.6-2.3) mg/dL 08/02/23 Range/Units 07:38 Sodium 136 L (137-145) mmol/L Chloride 92 L (98-107) mmol/L Carbon Dioxide 32 H (22-30) mmol/L BUN 118 H* (9-20) mg/dL Creatinine 1.79 H (0.66-1.25) mg/dL Glucose 112 H (74-99) mg/dL POC Glucose (mg/dL) (70-110) mg/dL Calcium 8.3 L (8.4-10.2) mg/dL Magnesium 2.4 H (1.6-2.3) mg/dL Assessment and Plan Plan: Assessment: 1. Chronic kidney disease stage IIIb secondary to cardiorenal syndrome and diabetic kidney disease. Baseline creatinine 1.8-2. GFR currently near baseline. No hydronephrosis noted on CAT scan. Elevated BUN due to chronic kidney disease and also from steroids. No evidence of GI bleed. UA fairly benign. 2. Acute on chronic systolic CHF with ejection fraction of 20 to 25% with moderate to severe pulmonary hypertension. 3. Fluid overload. Improving with diuresis. 4. Coronary artery disease with prior stenting. 5. Diabetes mellitus. 6. Hypervolemic hyponatremia with component of hypertonicity from hyperglycemia. Stable. 7. Anemia of chronic kidney disease. Iron deficiency noted. Plan: Continue IV Lasix 60 mg twice daily. Maintain metolazone 5 mg once daily. Continue SGLT2i. Low-salt diet and 1500 cc fluid restriction. Avoid nephrotoxins. Continue to monitor renal function and urine output. Strict I's and O's. Maintain IV iron. Started July 31, 2023. Edema improving with current diuretic management
[2023-08-02] MEDS: FUROSEMIDE 10 MG/ML 2 ML VIAL IV STA (10:38)
[2023-08-02 11:41] LABS: Glucose,Whole Blood 252 mg/dL (70-110)
[2023-08-02 16:50] LABS: Glucose,Whole Blood 269 mg/dL (70-110)
[2023-08-02] MEDS: FUROSEMIDE 10 MG/ML 10 ML VIAL IV SCH (17:18)
--- NOTE | 2023-08-02 18:28 | PN ---
PROGRESS NOTE SUBJECTIVE: The patient is being treated for systolic CHF, diastolic CHF, anemia, chronic renal disease, right-sided heart failure, diabetes mellitus. He says his swelling is going down in his belly and his legs for the last 24 hours. He is saturating 100% on 3 L. He is O2 dependent. OBJECTIVE: VITAL SIGNS: Blood pressure 95/50, temp 97.6, pulse 80s, respiratory rate 18 to 20. CARDIOVASCULAR: S1, S2. LUNGS: Scattered wheeze and rhonchi. HEMATOLOGY: 2+ edema. NEUROLOGIC: Cranial nerves intact. PSYCH: Fair mood and affect. Sugars are in the low 100s to 200s. We have cut down his insulin due to low sugar levels. LABORATORY DATA: Sodium 136, potassium is 4.0, BUN is 118, creatinine 1.79, GFR 39. ASSESSMENT: Congestive heart failure; chronic obstructive pulmonary disease; pulmonary hypertension; chronic renal disease, 3b; systolic and diastolic heart failure; coronary artery disease, stenting; diabetes mellitus. PLAN: Continue with fluid restrictions. Continue metolazone. Continue IV Lasix, IV iron. Monitor renal function. PT/OT. MMODL / ZHOUN: [id number] /
[2023-08-02 20:15] LABS: Glucose,Whole Blood 313 mg/dL (70-110)
--- NOTE | 2023-08-02 20:34 | HP ---
HISTORY AND PHYSICAL HISTORY OF PRESENT ILLNESS: 63-year-old white male, came in with congestive heart failure, coronary artery disease, COPD, right-sided heart failure, diabetes mellitus, hypertension, myocardial infarction, alcoholism, hepatitis C, shortness of breath. He had a STEMI in the past month or so. He came in with severe abdominal discomfort and swelling in his legs and his abdomen . He had paracentesis 2 years ago. He has cirrhosis of the liver. He stopped drinking years ago. CT abdomen and pelvis showed bilateral pleural effusions, diffuse anasarca, some ascites, possible cirrhosis. Paracentesis has been ordered. REVIEW OF SYSTEMS: A 14-point review of systems positive for swelling in the lower extremities and abdomen. FAMILY HISTORY: Mother with cancer heart disease, diabetes, hypertension. HOME MEDICINES: 1. Lipitor. 2. Metoprolol. 3. [place]. 4. Ventolin HFA. 5. DuoNeb. 6. Pregabalin. PHYSICAL EXAMINATION: VITAL SIGNS: Temp 98.4, blood pressure 130s to 150s over 70s to 80s, O2 of 93 to 98, pulse is 70s to 80s. White count 5.4, hemoglobin is 10.9, platelets 145. BUN 107, creatinine 1.77. ASSESSMENT: 1. Cirrhosis of the liver. 2. Acute on chronic systolic and diastolic heart failure. 3. History of hepatitis C. 4. Chronic hypoxemic respiratory failure. 5. Acute on chronic abdominal pain secondary to congestive heart failure. 6. Ascitic fluid. 7. Possible cirrhosis. 8. Chronic kidney disease. 9. Fluid overload. 10.Diabetes mellitus. 11.Alcohol abstinence. placed on IV Lasix drip. Continue home medications. Monitor renal function. Treat anasarca with diuretics. MMODL / IJN: [id number] /
[2023-08-02] MEDS: INSULIN DETEMIR (LEVEMIR) 100 UNIT/ML SYR SQ SCH (20:38)
[2023-08-03 03:08] LABS: Glucose,Whole Blood 115 mg/dL (70-110)
[2023-08-03 06:09] LABS: Glucose,Whole Blood 168 mg/dL (70-110)
--- NOTE | 2023-08-03 09:03 | P.PN ---
Subjective Progress Note Date: 08/03/23 Patient is seen in follow-up for acute kidney injury on chronic kidney disease. Edema slowly improving and urinating frequently. Vital signs are stable. On nasal cannula. General: No acute distress. HEENT: Head exam is unremarkable. LUNGS: No audible rhonchi or wheezes. HEART: Rate and Rhythm are regular. ABDOMEN: Nontender, distention noted. EXTREMITITES: 2+ edema. Chronic changes noted. Objective - Vital Signs Vital signs: Vital Signs Temp 98.1 F 08/03/23 03:34 Pulse 88 08/03/23 03:34 Resp 18 08/03/23 03:34 BP 115/68 08/03/23 03:34 Pulse Ox 97 08/03/23 03:34 FiO2 Intake & Output 08/02/23 08/03/23 08/03/23 18:59 06:59 18:59 Intake Total 1260 240 236 Balance 1260 240 236 Weight 79.9 kg Intake: Oral 1260 240 236 Other: Voiding Method Toilet # Voids 2 - Labs CBC & Chem 7: 08/03/23 09:15 08/03/23 09:15 Labs: Abnormal Lab Results - Last 24 Hours (Table) 08/02/23 08/02/23 08/02/23 Range/Units 07:38 11:40 16:49 Sodium 136 L (137-145) mmol/L Chloride 92 L (98-107) mmol/L Carbon Dioxide 32 H (22-30) mmol/L BUN 118 H* (9-20) mg/dL Creatinine 1.79 H (0.66-1.25) mg/dL Glucose 112 H (74-99) mg/dL POC Glucose (mg/dL) 252 H 269 H (70-110) mg/dL Calcium 8.3 L (8.4-10.2) mg/dL Magnesium 2.4 H (1.6-2.3) mg/dL 08/02/23 08/03/23 08/03/23 Range/Units 20:05 02:42 06:06 Sodium (137-145) mmol/L Chloride (98-107) mmol/L Carbon Dioxide (22-30) mmol/L BUN (9-20) mg/dL Creatinine (0.66-1.25) mg/dL Glucose (74-99) mg/dL POC Glucose (mg/dL) 313 H 115 H 168 H (70-110) mg/dL Calcium (8.4-10.2) mg/dL Magnesium (1.6-2.3) mg/dL Assessment and Plan Plan: Assessment: 1. Chronic kidney disease stage IIIb secondary to cardiorenal syndrome and diabetic kidney disease. Baseline creatinine 1.8-2. GFR currently near baseline. No hydronephrosis noted on CAT scan. Elevated BUN out of proportion to chronic kidney disease related to steroids. No evidence of GI bleed. UA fairly benign. 2. Acute on chronic systolic CHF with ejection fraction of 20 to 25% with moderate to severe pulmonary hypertension. 3. Fluid overload. Improving with diuresis. 4. Coronary artery disease with prior stenting. 5. Diabetes mellitus. 6. Hypervolemic hyponatremia with component of hypertonicity from hyperglyce yadira. Stable. 7. Anemia of chronic kidney disease. Iron deficiency noted. Plan: Continue IV Lasix 80 mg TID. Maintain metolazone 5 mg once daily. Continue SGLT2i. Low-salt diet and 1500 cc fluid restriction. Avoid nephrotoxins. Continue to monitor renal function and urine output. Strict I's and O's. Maintain IV iron. Started July 31, 2023. Edema improving with current diuretic management
[2023-08-03 09:55] LABS: Basophils % (A) 0 %; Eosinophils # (A) 0.1 k/uL (0-0.7); Eosinophils % (A) 1 %; HCT 31.8 % (39.0-53.0); Hypochromasia Slight; Lymphocytes # (A) 0.6 k/uL (1.0-4.8); Lymphocytes % (A) 8 %; MCH 28.4 pg (25.0-35.0); MCHC 31.3 g/dL (31.0-37.0); MCV 90.7 fL (80.0-100.0); Mean Platelet Volume 9.5; Monocytes # (A) 0.8 k/uL (0-1.0); Monocytes % (A) 9 %; Neutrophils # (A) 6.3 k/uL (1.3-7.7); Neutrophils % (A) 79 %; Platelet Count 148 k/uL (150-450); RBC 3.51 m/uL (4.30-5.90); RDW 14.9 % (11.5-15.5)
[2023-08-03 10:02] LABS: ALT 86 U/L (4-49); AST 109 U/L (17-59); African American GFR (CKD) 49 (>60 ml/min/1.73 sqM); Albumin 3.2 g/dL (3.5-5.0); Alkaline Phosphatase 99 U/L (38-126); Anion Gap 5 mmol/L; Carbon Dioxide 36 mmol/L (22-30); Chloride 92 mmol/L (98-107); Glucose 155 mg/dL (74-99); Non-African American GFR(CKD) 42 (>60 ml/min/1.73 sqM); Potassium 4.2 mmol/L (3.5-5.1); Sodium 133 mmol/L (137-145); Total Bilirubin 0.6 mg/dL (0.2-1.3); Total Protein 5.5 g/dL (6.3-8.2)
[2023-08-03 10:13] LABS: Blood Urea Nitrogen 125 mg/dL (9-20)
--- NOTE | 2023-08-03 10:49 | P.PN ---
Subjective Progress Note Date: 08/03/23 HISTORY OF PRESENT ILLNESS: This is a 63-year-old male with a past medical history significant for coronary artery disease with previous stenting, ischemic cardiomyopathy, hypertension, hyperlipidemia, nicotine dependence, and former alcohol abuse. Patient has not followed in the office since 2015, however at that time he saw Dr. Soni. We have been asked to see the patient in consultation for CHF. Patient examined at the bedside in the emergency room. Patient presented to the hospital yesterday with a chief complaint of shortness of breath. He states he has been feeling short of breath for the past few days at home. He reports home oxygen use and states he utilizes O2 20/01. He reports increased lower extremity edema and also increased abdominal bloating. He reports a weight gain of about 12 pounds over the past week. The patient states he has been taking his medications as prescribed until recently when he began to run out of some of them. He is unsure which ones he ran out of but he believes one of them is a diuretic and another 1 is a blood pressure pill. He reports an episode of chest pain yesterday at home after walking to the bathroom. He states the pain lasted for about 2 minutes and then resolved on its own. He denies any further episodes of chest pain or pressure since that time. The patient reports he has not smoked in 2 or 3 months. He also reports he has not drank alcohol in over 30 years. Patient's blood pressure is elevated at the time of examination with a systolic in the 150s. Bedside telemetry reveals sinus mechanism with a heart rate in the 70s. DIAGNOSTICS: EKG reveals sinus mechanism with T wave inversions in inferior leads and V5V6, similar to previous EKG Chest xray mild CHF. Bilateral pleural effusions. Worse on the left. Laboratory data: Sodium 133. Potassium 5.9. However specimen is hemolyzed. BUN 34. Creatinine 1.51. Troponin 0.149. proBNP 25,700. Current home cardiac medications include medication list is not updated at the time of dictation Most recent echocardiogram obtained in March 2023 revealed ejection fraction 20 to 25%, mild to moderate TR, trace MR, and calcified aortic valve without significant stenosis Cardiac catheterization history: January 2016 revealing intermediate in-stent restenosis of the RCA, mild to moderate nonobstructive coronary artery disease involving the left coronary system, normal left ventricular systolic function. 07/23/2023 Patient examined this morning at the bedside. Patient complains of back pain this morning. He continues to report SOB. He remains on IV lasix. He continues to be volume overloaded. Creatinine today 1.57. BUN 49. Blood pressure remains elevated although improved from yesterday. July 24, 2023 Patient examined this morning at bedside. Patient denies chest pain or pressure. He continues to report shortness of breath, although improved from yesterday. Remains on IV diuretics. Kidney function remained stable today. Creatinine 1.69. He continues to have abdominal distention, although improving. Vital signs are stable. Most recent blood pressure 147/49. July 25, 2023 Patient examined this morning at the bedside. Patient denies chest pain or pressure. He continues to report shortness of breath. Creatinine today is increased from 1.6-1.9. He is currently on 60 mg of Lasix twice a day. Telemetry reveals sinus mechanism. Abdominal ultrasound was performed with out evidence for significant ascites July 26, 2023 Patient examined this morning at the bedside. Patient denies chest pain or pressure. He currently denies shortness of breath. He complains of continued abdominal bloating this morning and pain with ambulation due to the swelling in his legs. He remains on IV Lasix 40 mg twice a day. Creatinine 1.84 today. July 27, 2023 Patient examined this morning at the bedside. He currently denies chest pain or pressure. He reports improvement in his shortness of breath. He continues to complain of abdominal bloating this morning and lower extremity edema. He remains on IV Lasix 40 mg every 12 hours. Creatinine is stable today at 1.92. Most recent blood pressure 138/80. 07/28 Patient is complaining of abdominal distention. He states his breathing is a little bit better since he is coming to the hospital. He continues to have lower extremity edema. He states he is urinating a lot. Blood pressure 136/77. Heart rate is in the 70s, pulse ox 98% on room air. Patient's weight appears to be elevated. He is maintained on Lasix 40 mg IV every 12 hours. 07/29 Patient denies having any chest pain and no pressure. He has ongoing concern regarding abdominal discomfort and distention. Nephrology has started the patient on Lasix drip at 10 mg/h and has been started on metolazone 5 mg daily. Patient states he is feel to urinals in the last 1 hour. Blood pressure 147/89, heart rate in the 70s. Repeat blood work reveals hemoglobin 10.9, BUN 107 creatinine 1.77, sodium 134, potassium 5.3. 07/30 Patient states he has finally noticed improvement of the abdominal distention and improvement of fluid. He was started yesterday on Lasix drip and metolazone. Yesterday we increased hydralazine and Isordil. Blood pressure 157/74, heart rate in the 70s. Repeat blood work reveals hemoglobin 9.8, platelet count 149. Sodium 134, potassium 4.3, BUN 112 and creatinine 1.82. 07/31/2023 He reports that his abdominal swelling is improved. Legs are still swollen and wrapped. No chest pain. Kidneys are stable, creat 1.71. Blood pressure is still elevated. 08/01 Nephrology has taken the patient off Lasix drip and started him on IV 60 mg twice daily. Patient states that his abdominal distention and fluid retention have improved. Blood pressure 160/92, heart rate in the 80s. Repeat blood work reveals hemoglobin of 10.1. BUN 128, creatinine 1.98. Sodium 132, potassium 5.4, chloride 89, CO2 35. 08/02 Blood pressure 112/78, heart rate in 70s and 80s, pulse ox 97% on 2 L nasal cannula. Repeat blood work has not been reported at the time of this dictation. Patient continues to have good urine output although he feels it slowed somewhat yesterday and picked up again today. He was transition by nephrology from the Lasix drip to IV Lasix 60 mg twice daily and continued on metolazone and SGLT2i. He has also been undergoing iron infusions. Attending has started the patient on Entresto and Revatio. Patient states that his lower legs started draining last night for about 2 hours. Patient states this improved with leg wraps. 08/03 Yesterday, we increase Lasix to 80 mg 3 times daily IV push and discontinue Revatio as patient was already started on Isordil by us. Patient output has not been recorded. His weight appears to be down almost 2 kg from yesterday. Blood pressure today 115/68, heart rate in the 80s. Telemetry is sinus rhythm. Repeat blood work reveals WBC 8, hemoglobin 10, platelet count 148. Sodium 133, potassium 4.2, BUN 125, creatinine 1.68. Patient states that his legs are bothering him he does have some weeping. Patient advised to elevate his legs. He has been compliant with wrapping. PHYSICAL EXAM: VITAL SIGNS: Reviewed. GENERAL: Well-developed in no acute distress. HEENT: Head is normocephalic. Pupils are equal, round. Sclerae anicteric. Mucous membranes of the mouth are moist. Neck supple. LUNGS: Respirations even and unlabored. Lungs diminished at the bases HEART: Regular rate and rhythm. S1 and S2 heard. Soft systolic murmur noted. ABDOMEN: Distended, +bruise. EXTREMITIES: No clubbing or cyanosis. Peripheral pulses intact. 2+ bilateral pitting lower extremity edema, wraps in place. NEUROLOGIC: Awake and alert. Oriented x 3. ASSESSMENT: Acute on chronic heart failure with reduced ejection fraction, 25%, proBNP 25,700 Elevated troponin, suspect secondary to type II CA secondary to oxygen supply demand mismatch Coronary artery disease with previous stenting of the RCA Mild to moderate nonobstructive CAD involving left coronary system Ischemic cardiomyopathy Acute on chronic kidney disease Chronic hypoxic respiratory failure on home O2, 20/01 History of COPD Hypertension Hyperlipidemia History of ascites with previous paracentesis, x 4 per patient Former nicotine dependence, patient quit smoking 2 to 3 months ago Former alcohol abuse, patient states he has not drank in 30 years History of medication noncompliance Hyponatremia Hyperkalemia PLAN: Continue metolazone and Lasix 80 mg three times daily IV push Daily weights, accurate I&O, and monitoring of kidney function Continue additional cardiac medications Continue hydralazine 100 mg 3 times daily and continue Isordil 40 mg 3 times daily to improve afterload. Further recommendations pending patient course Nurse practitioner note has been reviewed by physician. Signing provider agrees with the documented findings, assessment, and plan of care. Objective - Vital Signs Vital signs: Vital Signs Temp 98.1 F 08/03/23 03:34 Pulse 88 08/03/23 03:34 Resp 18 08/03/23 03:34 BP 115/68 08/03/23 03:34 Pulse Ox 97 08/03/23 03:34 FiO2 Intake & Output 08/02/23 08/03/23 08/03/23 18:59 06:59 18:59 Intake Total 1260 240 236 Balance 1260 240 236 Weight 79.9 kg Intake: Oral 1260 240 236 Other: Voiding Method Toilet # Voids 2 - Labs CBC & Chem 7: 08/03/23 09:15 08/03/23 09:15 Labs: Abnormal Lab Results - Last 24 Hours (Table) 08/02/23 08/02/23 08/02/23 Range/Units 07:38 11:40 16:49 Sodium 136 L (137-145) mmol/L Chloride 92 L (98-107) mmol/L Carbon Dioxide 32 H (22-30) mmol/L BUN 118 H* (9-20) mg/dL Creatinine 1.79 H (0.66-1.25) mg/dL Glucose 112 H (74-99) mg/dL POC Glucose (mg/dL) 252 H 269 H (70-110) mg/dL Calcium 8.3 L (8.4-10.2) mg/dL Magnesium 2.4 H (1.6-2.3) mg/dL 08/02/23 08/03/23 08/03/23 Range/Units 20:05 02:42 06:06 Sodium (137-145) mmol/L Chloride (98-107) mmol/L Carbon Dioxide (22-30) mmol/L BUN (9-20) mg/dL Creatinine (0.66-1.25) mg/dL Glucose (74-99) mg/dL POC Glucose (mg/dL) 313 H 115 H 168 H (70-110) mg/dL Calcium (8.4-10.2) mg/dL Magnesium (1.6-2.3) mg/dL
[2023-08-03 12:08] LABS: Glucose,Whole Blood 277 mg/dL (70-110)
[2023-08-03 16:49] LABS: Glucose,Whole Blood 221 mg/dL (70-110)
[2023-08-03 20:31] LABS: Glucose,Whole Blood 170 mg/dL (70-110)
[2023-08-03] MEDS: LOPERAMIDE 2 MG CAP PO PRN (20:45)
--- NOTE | 2023-08-04 00:25 | PN ---
PROGRESS NOTE SUBJECTIVE: The patient has elevated BUN and creatinine, systolic and diastolic heart failure. With proper diuresis, he has switched off IV Lasix. Added Entresto for CHF. His sugars have been high, but they are improving daily. OBJECTIVE: HEENT: Normocephalic, atraumatic. LUNGS: Scattered wheeze and rhonchi. HEART: S1, S2. ABDOMEN: Soft, nontender. EXTREMITIES: 2 to 3+ edema bilaterally. LABORATORY DATA: Hemoglobin is 10.1, white count is 6.8, BUN was 118, creatinine 1.73. ASSESSMENT: Chronic renal disease, 3B, acute on chronic systolic and diastolic congestive heart failure, ejection fraction of 25% to 30%. Fluid overload. Coronary artery disease, diabetes mellitus, hypovolemic hyponatremia. Continue IV Lasix, metolazone. Continue SGOT, low-salt, 1500 mL fluid restriction. Avoid nephrotoxins. Prognosis guarded. Please see further orders. MMODL / IJN: [id number] /
[2023-08-04 06:21] LABS: Glucose,Whole Blood 207 mg/dL (70-110)
--- NOTE | 2023-08-04 11:28 | P.PN ---
Subjective Patient is seen for follow-up for acute kidney injury and chronic kidney disease. He is currently being diuresed. Maintained on IV Lasix 80 mg 3 times daily. No significant complaints. Labs are pending from today. Objective - Vital Signs Vital signs: Vital Signs Temp 98.1 F 08/04/23 09:05 Pulse 69 08/04/23 09:05 Resp 16 08/04/23 09:05 BP 101/59 08/04/23 09:05 Pulse Ox 94 L 08/04/23 09:05 FiO2 Intake & Output 08/03/23 08/04/23 08/04/23 18:59 06:59 18:59 Intake Total 472 840 Output Total 500 Balance 472 340 Intake: Oral 472 840 Output: Urine 500 Other: Voiding Method Toilet Toilet # Voids 1 - Exam Patient is awake, comfortable, no acute distress Examination of the heart S1 and S2 Examination of the lungs decreased breath sounds at the bases Abdomen is soft nontender Examination lower extremity shows 1+ edema bilaterally [employer] exam grossly intact - Labs CBC & Chem 7: 08/03/23 09:15 08/03/23 09:15 Labs: Abnormal Lab Results - Last 24 Hours (Table) 08/03/23 08/03/23 08/03/23 Range/Units 12:03 16:48 20:30 POC Glucose (mg/dL) 277 H 221 H 170 H (70-110) mg/dL 08/04/23 Range/Units 06:19 POC Glucose (mg/dL) 207 H (70-110) mg/dL Assessment and Plan Assessment: 1. Chronic kidney disease stage IIIb secondary to cardiorenal syndrome and diabetic kidney disease. Baseline creatinine 1.8-2. GFR currently near baseline. No hydronephrosis noted on CAT scan. Elevated BUN out of proportion to chronic kidney disease related to steroids. No evidence of GI bleed. UA fairly benign. 2. Acute on chronic systolic CHF with ejection fraction of 20 to 25% with moderate to severe pulmonary hypertension. 3. Fluid overload. Improving with diuresis. 4. Coronary artery disease with prior stenting. 5. Diabetes mellitus. 6. Hypervolemic hyponatremia with component of hypertonicity from hyperglycemia. Stable. 7. Anemia of chronic kidney disease. Iron deficiency noted. Plan: Continue with current dose of diuretics Check labs today and in a.m. Continue Entresto
[2023-08-04 11:53] LABS: Glucose,Whole Blood 230 mg/dL (70-110)
[2023-08-04 12:16] LABS: African American GFR (CKD) 47 (>60 ml/min/1.73 sqM); Anion Gap 6 mmol/L; Calcium 8.1 mg/dL (8.4-10.2); Carbon Dioxide 36 mmol/L (22-30); Chloride 94 mmol/L (98-107); Glucose 205 mg/dL (74-99); Non-African American GFR(CKD) 40 (>60 ml/min/1.73 sqM); Sodium 136 mmol/L (137-145)
[2023-08-04 12:26] LABS: Potassium 4.4 mmol/L (3.5-5.1)
[2023-08-04 12:27] LABS: Blood Urea Nitrogen 134 mg/dL (9-20)
--- NOTE | 2023-08-04 12:29 | P.PN ---
Subjective HISTORY OF PRESENT ILLNESS: This is a 63-year-old male with a past medical history significant for coronary artery disease with previous stenting, ischemic cardiomyopathy, hypertension, hyperlipidemia, nicotine dependence, and former alcohol abuse. Patient has not followed in the office since 2015, however at that time he saw Dr. Soni. We have been asked to see the patient in consultation for CHF. Patient examined at the bedside in the emergency room. Patient presented to the hospital yesterday with a chief complaint of shortness of breath. He states he has been feeling short of breath for the past few days at home. He reports home oxygen use and states he utilizes O2 /. He reports increased lower extremity edema and also increa sed abdominal bloating. He reports a weight gain of about 12 pounds over the past week. The patient states he has been taking his medications as prescribed until recently when he began to run out of some of them. He is unsure which ones he ran out of but he believes one of them is a diuretic and another 1 is a blood pressure pill. He reports an episode of chest pain yesterday at home after walking to the bathroom. He states the pain lasted for about 2 minutes and then resolved on its own. He denies any further episodes of chest pain or pressure since that time. The patient reports he has not smoked in 2 or 3 months. He also reports he has not drank alcohol in over 30 years. Patient's blood pressure is elevated at the time of examination with a systolic in the 150s. Bedside telemetry reveals sinus mechanism with a heart rate in the 70s. DIAGNOSTICS: EKG reveals sinus mechanism with T wave inversions in inferior leads and V5V6, similar to previous EKG Chest xray mild CHF. Bilateral pleural effusions. Worse on the left. Laboratory data: Sodium 133. Potassium 5.9. However specimen is hemolyzed. BUN 34. Creatinine 1.51. Troponin 0.149. proBNP 25,700. Current home cardiac medications include medication list is not updated at the time of dictation Most recent echocardiogram obtained in March 2023 revealed ejection fraction 20 to 25%, mild to moderate TR, trace MR, and calcified aortic valve without significant stenosis Cardiac catheterization history: January 2016 revealing intermediate in-stent restenosis of the RCA, mild to moderate nonobstructive coronary artery disease involving the left coronary system, normal left ventricular systolic function. 07/23/2023 Patient examined this morning at the bedside. Patient complains of back pain this morning. He continues to report SOB. He remains on IV lasix. He continues to be volume overloaded. Creatinine today 1.57. BUN 49. Blood pressure remains elevated although improved from yesterday. July 24, 2023 Patient examined this morning at bedside. Patient denies chest pain or pressure. He continues to report shortness of breath, although improved from yesterday. Remains on IV diuretics. Kidney function remained stable today. Creatinine 1.69. He continues to have abdominal distention, although improving. Vital signs are stable. Most recent blood pressure 147/49. July 25, 2023 Patient examined this morning at the bedside. Patient denies chest pain or pressure. He continues to report shortness of breath. Creatinine today is increased from 1.6-1.9. He is currently on 60 mg of Lasix twice a day. Telemetry reveals sinus mechanism. Abdominal ultrasound was performed with out evidence for significant ascites July 26, 2023 Patient examined this morning at the bedside. Patient denies chest pain or pressure. He currently denies shortness of breath. He complains of continued abdominal bloating this morning and pain with ambulation due to the swelling in his legs. He remains on IV Lasix 40 mg twice a day. Creatinine 1.84 today. July 27, 2023 Patient examined this morning at the bedside. He currently denies chest pain or pressure. He reports improvement in his shortness of breath. He continues to complain of abdominal bloating this morning and lower extremity edema. He remains on IV Lasix 40 mg every 12 hours. Creatinine is stable today at 1.92. Most recent blood pressure 138/80. 07/28 Patient is complaining of abdominal distention. He states his breathing is a little bit better since he is coming to the hospital. He continues to have lower extremity edema. He states he is urinating a lot. Blood pressure 136/77. Heart rate is in the 70s, pulse ox 98% on room air. Patient's weight appears to be elevated. He is maintained on Lasix 40 mg IV every 12 hours. 07/29 Patient denies having any chest pain and no pressure. He has ongoing concern r egarding abdominal discomfort and distention. Nephrology has started the patient on Lasix drip at 10 mg/h and has been started on metolazone 5 mg daily. Patient states he is feel to urinals in the last 1 hour. Blood pressure 147/89, heart rate in the 70s. Repeat blood work reveals hemoglobin 10.9, BUN 107 creatinine 1.77, sodium 134, potassium 5.3. 07/30 Patient states he has finally noticed improvement of the abdominal distention and improvement of fluid. He was started yesterday on Lasix drip and metolazone. Yesterday we increased hydralazine and Isordil. Blood pressure 157/74, heart rate in the 70s. Repeat blood work reveals hemoglobin 9.8, platelet count 149. Sodium 134, potassium 4.3, BUN 112 and creatinine 1.82. 07/31/2023 He reports that his abdominal swelling is improved. Legs are still swollen and wrapped. No chest pain. Kidneys are stable, creat 1.71. Blood pressure is still elevated. 08/01 Nephrology has taken the patient off Lasix drip and started him on IV 60 mg tw ice daily. Patient states that his abdominal distention and fluid retention have improved. Blood pressure 160/92, heart rate in the 80s. Repeat blood work reveals hemoglobin of 10.1. BUN 128, creatinine 1.98. Sodium 132, potassium 5.4, chloride 89, CO2 35. 08/02 Blood pressure 112/78, heart rate in 70s and 80s, pulse ox 97% on 2 L nasal cannula. Repeat blood work has not been reported at the time of this dictation. Patient continues to have good urine output although he feels it slowed eric ewhat yesterday and picked up again today. He was transition by nephrology from the Lasix drip to IV Lasix 60 mg twice daily and continued on metolazone and SGLT2i. He has also been undergoing iron infusions. Attending has started the patient on Entresto and Revatio. Patient states that his lower legs started draining last night for about 2 hours. Patient states this improved with leg wraps. 08/03 Yesterday, we increase Lasix to 80 mg 3 times daily IV push and discontinue Revatio as patient was already started on Isordil by us. Patient output has not been recorded. His weight appears to be down almost 2 kg from yesterday. Blood pressure today 115/68, heart rate in the 80s. Telemetry is sinus rhythm. Repeat blood work reveals WBC 8, hemoglobin 10, platelet count 148. Sodium 133, potassium 4.2, BUN 125, creatinine 1.68. Patient states that his legs are bothering him he does have some weeping. Patient advised to elevate his legs. He has been compliant with wrapping. 08/04/2022 Patient examined this morning at the bedside. Patient currently denies chest pain or pressure. He reports his breathing has been stable. He remains on IV diuretics. BUN 125. Creatinine 1.68. Blood pressure 122/74. PHYSICAL EXAM: VITAL SIGNS: Reviewed. GENERAL: Well-developed in no acute distress. HEENT: Head is normocephalic. Pupils are equal, round. Sclerae anicteric. Mucous membranes of the mouth are moist. Neck supple. No JVD or thyromegaly LUNGS: Respirations even and unlabored. Lungs diminished at the bases HEART: Regular rate and rhythm. S1 and S2 heard. Soft systolic murmur noted. ABDOMEN: Distended, improving EXTREMITIES: Normal range of motion. No clubbing or cyanosis. Peripheral pulses intact. 2+ bilateral pitting lower extremity edema NEUROLOGIC: Awake and alert. Oriented x 3. ASSESSMENT: Shortness of breath Acute on chronic heart failure with reduced ejection fraction, 25%, proBNP 25,700 Elevated troponin, suspect secondary to type II [place] secondary to oxygen supply demand mismatch Coronary artery disease with previous stenting of the RCA Mild to moderate nonobstructive CAD involving left coronary system Ischemic cardiomyopathy Acute on chronic kidney disease Chronic hypoxic respiratory failure on home O2, 20/01 History of COPD Hypertension Hyperlipidemia History of ascites with previous paracentesis, x 4 per patient Former nicotine dependence, patient quit smoking 2 to 3 months ago Former alcohol abuse, patient states he has not drank in 30 years History of medication noncompliance Hyponatremia Hyperkalemia PLAN: Continue IV Lasix per nephrology Continue to monitor kidney function Continue additional cardiac medications Further recommendations pending patient course Nurse practitioner note has been reviewed by physician. Signing provider agrees with the documented findings, assessment, and plan of care. Objective - Vital Signs Vital signs: Vital Signs Temp 98.1 F 08/04/23 09:05 Pulse 72 08/04/23 11:44 Resp 18 08/04/23 11:24 BP 122/74 08/04/23 11:24 Pulse Ox 96 08/04/23 11:24 FiO2 Intake & Output 08/03/23 08/04/23 08/04/23 18:59 06:59 18:59 Intake Total 472 840 Output Total 500 Balance 472 340 Intake: Oral 472 840 Output: Urine 500 Other: Voiding Method Toilet Toilet # Voids 1 - Labs CBC & Chem 7: 08/03/23 09:15 08/03/23 09:15 Labs: Abnormal Lab Results - Last 24 Hours (Table) 08/03/23 08/03/23 08/04/23 Range/Units 16:48 20:30 06:19 POC Glucose (mg/dL) 221 H 170 H 207 H (70-110) mg/dL 08/04/23 Range/Units 11:51 POC Glucose (mg/dL) 230 H (70-110) mg/dL
[2023-08-04 16:49] LABS: Glucose,Whole Blood 321 mg/dL (70-110)
[2023-08-04 19:50] LABS: Glucose,Whole Blood 179 mg/dL (70-110)
[2023-08-04] MEDS: FUROSEMIDE 10 MG/ML 10 ML VIAL IV SCH (21:05)
--- NOTE | 2023-08-04 23:48 | PN ---
PROGRESS NOTE SUBJECTIVE: He is seen by Dr. Ellis for renal disease, elevated BUN of severe nature. He is being diuresed with Lasix 80 t.i.d. Followup acute on chronic kidney disease. Blood pressure 101/59, O2 94, temp 98.1, pulse 69, respiratory rate 16 to 18. BUN is 125, creatinine 1.68. Chronic kidney disease 3B cardiorenal disease. GFR near baseline. No hydronephrosis on CAT scan, they think the BUN is out of proportion to chronic kidney disease due to steroids. No evidence of GI bleed. UA is fairly benign. Acute on chronic systolic CHF with mild severe pulmonary hypertension, fluid overload, coronary artery disease, prior stenting, diabetes mellitus, hypervolemic hyponatremia, anemia of chronic disease. Continue with diuresis, Entresto, Lasix. Check swabs in the morning. MMODL / IJN: [id number] /
[2023-08-05] MEDS: FUROSEMIDE 10 MG/ML 10 ML VIAL IV SCH (05:28)
[2023-08-05 06:04] LABS: Glucose,Whole Blood 83 mg/dL (70-110)
--- NOTE | 2023-08-05 11:11 | P.PN ---
Subjective Patient is seen for follow-up for acute kidney injury and chronic kidney disease. He is currently being diuresed. Maintained on IV Lasix 80 mg 2 times daily. No significant complaints. BUN increased to 134 yesterday with serum creatinine at 1.7. Urine output charted at 500 mL. I am not sure if this is accurate for 24 hours. Patient states shortness of breath has improved much. Objective - Vital Signs Vital signs: Vital Signs Temp 98 F 08/05/23 08:00 Pulse 80 08/05/23 08:34 Resp 20 08/05/23 08:00 BP 114/59 08/05/23 08:00 Pulse Ox 95 08/05/23 08:00 FiO2 Intake & Output 08/04/23 08/05/23 08/05/23 18:59 06:59 18:59 Intake Total 1080 240 540 Output Total 500 Balance 580 240 540 Weight 76.6 kg Intake: Oral 1080 240 540 Output: Urine 500 Other: Voiding Method Toilet Toilet Toilet # Voids 1 - Exam Patient is awake, comfortable, no acute distress Examination of the heart S1 and S2 Examination of the lungs decreased breath sounds at the bases Abdomen is soft nontender Examination lower extremity shows trace edema bilaterally LATHE HAND exam grossly intact - Labs CBC & Chem 7: 08/03/23 09:15 08/04/23 11:48 Labs: Abnormal Lab Results - Last 24 Hours (Table) 08/04/23 08/04/23 08/04/23 Range/Units 11:48 11:51 16:47 Sodium 136 L (137-145) mmol/L Chloride 94 L (98-107) mmol/L Carbon Dioxide 36 H (22-30) mmol/L BUN 134 H* (9-20) mg/dL Creatinine 1.75 H (0.66-1.25) mg/dL Glucose 205 H (74-99) mg/dL POC Glucose (mg/dL) 230 H 321 H (70-110) mg/dL Calcium 8.1 L (8.4-10.2) mg/dL 08/04/23 Range/Units 19:41 Sodium (137-145) mmol/L Chloride (98-107) mmol/L Carbon Dioxide (22-30) mmol/L BUN (9-20) mg/dL Creatinine (0.66-1.25) mg/dL Glucose (74-99) mg/dL POC Glucose (mg/dL) 179 H (70-110) mg/dL Calcium (8.4-10.2) mg/dL Assessment and Plan Assessment: 1. Chronic kidney disease stage IIIb secondary to cardiorenal syndrome and diabetic kidney disease. Baseline creatinine 1.8-2. GFR currently near baseline. No hydronephrosis noted on CAT scan. Elevated BUN out of proportion to chronic kidney disease related to steroids. No evidence of GI bleed. UA fairly benign. 2. Acute on chronic systolic CHF with ejection fraction of 20 to 25% with moderate to severe pulmonary hypertension. 3. Fluid overload. Improving with diuresis. 4. Coronary artery disease with prior stenting. 5. Diabetes mellitus. 6. Hypervolemic hyponatremia with component of hypertonicity from hyperglycemia. Stable. 7. Anemia of chronic kidney disease. Iron deficiency noted. Plan: Decrease Lasix to 60 mg orally twice daily. DC IV iron Continue with Entresto Repeat labs
--- NOTE | 2023-08-05 11:16 | P.PN ---
Subjective HISTORY OF PRESENT ILLNESS: This is a 63-year-old male with a past medical history significant for coronary artery disease with previous stenting, ischemic cardiomyopathy, hypertension, hyperlipidemia, nicotine dependence, and former alcohol abuse. Patient has not followed in the office since 2015, however at that time he saw Dr. Soni. We have been asked to see the patient in consultation for CHF. Patient examined at the bedside in the emergency room. Patient presented to the hospital yesterday with a chief complaint of shortness of breath. He states he has been feeling short of breath for the past few days at home. He reports home oxygen use and states he utilizes O2 /. He reports increased lower extremity edema and also increa sed abdominal bloating. He reports a weight gain of about 12 pounds over the past week. The patient states he has been taking his medications as prescribed until recently when he began to run out of some of them. He is unsure which ones he ran out of but he believes one of them is a diuretic and another 1 is a blood pressure pill. He reports an episode of chest pain yesterday at home after walking to the bathroom. He states the pain lasted for about 2 minutes and then resolved on its own. He denies any further episodes of chest pain or pressure since that time. The patient reports he has not smoked in 2 or 3 months. He also reports he has not drank alcohol in over 30 years. Patient's blood pressure is elevated at the time of examination with a systolic in the 150s. Bedside telemetry reveals sinus mechanism with a heart rate in the 70s. DIAGNOSTICS: EKG reveals sinus mechanism with T wave inversions in inferior leads and V5V6, similar to previous EKG Chest xray mild CHF. Bilateral pleural effusions. Worse on the left. Laboratory data: Sodium 133. Potassium 5.9. However specimen is hemolyzed. BUN 34. Creatinine 1.51. Troponin 0.149. proBNP 25,700. Current home cardiac medications include medication list is not updated at the time of dictation Most recent echocardiogram obtained in March 2023 revealed ejection fraction 20 to 25%, mild to moderate TR, trace MR, and calcified aortic valve without significant stenosis Cardiac catheterization history: January 2016 revealing intermediate in-stent restenosis of the RCA, mild to moderate nonobstructive coronary artery disease involving the left coronary system, normal left ventricular systolic function. 07/23/2023 Patient examined this morning at the bedside. Patient complains of back pain this morning. He continues to report SOB. He remains on IV lasix. He continues to be volume overloaded. Creatinine today 1.57. BUN 49. Blood pressure remains elevated although improved from yesterday. July 24, 2023 Patient examined this morning at bedside. Patient denies chest pain or pressure. He continues to report shortness of breath, although improved from yesterday. Remains on IV diuretics. Kidney function remained stable today. Creatinine 1.69. He continues to have abdominal distention, although improving. Vital signs are stable. Most recent blood pressure 147/49. July 25, 2023 Patient examined this morning at the bedside. Patient denies chest pain or pressure. He continues to report shortness of breath. Creatinine today is increased from 1.6-1.9. He is currently on 60 mg of Lasix twice a day. Telemetry reveals sinus mechanism. Abdominal ultrasound was performed with out evidence for significant ascites July 26, 2023 Patient examined this morning at the bedside. Patient denies chest pain or pressure. He currently denies shortness of breath. He complains of continued abdominal bloating this morning and pain with ambulation due to the swelling in his legs. He remains on IV Lasix 40 mg twice a day. Creatinine 1.84 today. July 27, 2023 Patient examined this morning at the bedside. He currently denies chest pain or pressure. He reports improvement in his shortness of breath. He continues to complain of abdominal bloating this morning and lower extremity edema. He remains on IV Lasix 40 mg every 12 hours. Creatinine is stable today at 1.92. Most recent blood pressure 138/80. 07/28 Patient is complaining of abdominal distention. He states his breathing is a little bit better since he is coming to the hospital. He continues to have lower extremity edema. He states he is urinating a lot. Blood pressure 136/77. Heart rate is in the 70s, pulse ox 98% on room air. Patient's weight appears to be elevated. He is maintained on Lasix 40 mg IV every 12 hours. 07/29 Patient denies having any chest pain and no pressure. He has ongoing concern r egarding abdominal discomfort and distention. Nephrology has started the patient on Lasix drip at 10 mg/h and has been started on metolazone 5 mg daily. Patient states he is feel to urinals in the last 1 hour. Blood pressure 147/89, heart rate in the 70s. Repeat blood work reveals hemoglobin 10.9, BUN 107 creatinine 1.77, sodium 134, potassium 5.3. 07/30 Patient states he has finally noticed improvement of the abdominal distention and improvement of fluid. He was started yesterday on Lasix drip and metolazone. Yesterday we increased hydralazine and Isordil. Blood pressure 157/74, heart rate in the 70s. Repeat blood work reveals hemoglobin 9.8, platelet count 149. Sodium 134, potassium 4.3, BUN 112 and creatinine 1.82. 07/31/2023 He reports that his abdominal swelling is improved. Legs are still swollen and wrapped. No chest pain. Kidneys are stable, creat 1.71. Blood pressure is still elevated. 08/01 Nephrology has taken the patient off Lasix drip and started him on IV 60 mg tw ice daily. Patient states that his abdominal distention and fluid retention have improved. Blood pressure 160/92, heart rate in the 80s. Repeat blood work reveals hemoglobin of 10.1. BUN 128, creatinine 1.98. Sodium 132, potassium 5.4, chloride 89, CO2 35. 08/02 Blood pressure 112/78, heart rate in 70s and 80s, pulse ox 97% on 2 L nasal cannula. Repeat blood work has not been reported at the time of this dictation. Patient continues to have good urine output although he feels it slowed eric ewhat yesterday and picked up again today. He was transition by nephrology from the Lasix drip to IV Lasix 60 mg twice daily and continued on metolazone and SGLT2i. He has also been undergoing iron infusions. Attending has started the patient on Entresto and Revatio. Patient states that his lower legs started draining last night for about 2 hours. Patient states this improved with leg wraps. 08/03 Yesterday, we increase Lasix to 80 mg 3 times daily IV push and discontinue Revatio as patient was already started on Isordil by us. Patient output has not been recorded. His weight appears to be down almost 2 kg from yesterday. Blood pressure today 115/68, heart rate in the 80s. Telemetry is sinus rhythm. Repeat blood work reveals WBC 8, hemoglobin 10, platelet count 148. Sodium 133, potassium 4.2, BUN 125, creatinine 1.68. Patient states that his legs are bothering him he does have some weeping. Patient advised to elevate his legs. He has been compliant with wrapping. 08/04/2022 Patient examined this morning at the bedside. Patient currently denies chest pain or pressure. He reports his breathing has been stable. He remains on IV diuretics. BUN 125. Creatinine 1.68. Blood pressure 122/74. August 05, 2023 Patient examined this morning at the bedside. Patient is currently sitting on the side of the bed. At the time of examination, he denies any shortness of breath. He denies any chest pain or pressure. He remains on IV Lasix. PHYSICAL EXAM: VITAL SIGNS: Reviewed. GENERAL: Well-developed in no acute distress. HEENT: Head is normocephalic. Pupils are equal, round. Sclerae anicteric. Mucous membranes of the mouth are moist. Neck supple. No JVD or thyromegaly LUNGS: Respirations even and unlabored. Lungs diminished at the bases HEART: Regular rate and rhythm. S1 and S2 heard. Soft systolic murmur noted. EXTREMITIES: Normal range of motion. No clubbing or cyanosis. Peripheral pulses intact. 1+ bilateral pitting lower extremity edema ASSESSMENT: Shortness of breath Acute on chronic heart failure with reduced ejection fraction, 25%, proBNP 25,70 0 Elevated troponin, suspect secondary to type II [place] secondary to oxygen supply demand mismatch Coronary artery disease with previous stenting of the RCA Mild to moderate nonobstructive CAD involving left coronary system Ischemic cardiomyopathy Acute on chronic kidney disease Chronic hypoxic respiratory failure on home O2, 20/01 History of COPD Hypertension Hyperlipidemia History of ascites with previous paracentesis, x 4 per patient Former nicotine dependence, patient quit smoking 2 to 3 months ago Former alcohol abuse, patient states he has not drank in 30 years History of medication noncompliance Hyponatremia Hyperkalemia PLAN: Continue Lasix per nephrology. Patient switched to 60 mg p.o. twice a day Continue to monitor kidney function Continue additional cardiac medications Further recommendations pending patient course Nurse practitioner note has been reviewed by physician. Signing provider agrees with the documented findings, assessment, and plan of care. Objective - Vital Signs Vital signs: Vital Signs Temp 98 F 08/05/23 08:00 Pulse 80 08/05/23 08:34 Resp 20 02/06/24 08:00 BP 114/59 08/05/23 08:00 Pulse Ox 95 08/05/23 08:00 FiO2 Intake & Output 08/04/23 08/05/23 08/05/23 18:59 06:59 18:59 Intake Total 1080 240 540 Output Total 500 Balance 580 240 540 Weight 76.6 kg Intake: Oral 1080 240 540 Output: Urine 500 Other: Voiding Method Toilet Toilet Toilet # Voids 1 - Labs CBC & Chem 7: 08/03/23 09:15 08/04/23 11:48 Labs: Abnormal Lab Results - Last 24 Hours (Table) 08/04/23 08/04/23 08/04/23 Range/Units 11:48 11:51 16:47 Sodium 136 L (137-145) mmol/L Chloride 94 L (98-107) mmol/L Carbon Dioxide 36 H (22-30) mmol/L BUN 134 H* (9-20) mg/dL Creatinine 1.75 H (0.66-1.25) mg/dL Glucose 205 H (74-99) mg/dL POC Glucose (mg/dL) 230 H 321 H (70-110) mg/dL Calcium 8.1 L (8.4-10.2) mg/dL 08/04/23 Range/Units 19:41 Sodium (137-145) mmol/L Chloride (98-107) mmol/L Carbon Dioxide (22-30) mmol/L BUN (9-20) mg/dL Creatinine (0.66-1.25) mg/dL Glucose (74-99) mg/dL POC Glucose (mg/dL) 179 H (70-110) mg/dL Calcium (8.4-10.2) mg/dL
[2023-08-05 11:44] LABS: Glucose,Whole Blood 272 mg/dL (70-110)
[2023-08-05 12:02] LABS: Basophils % (A) 0 %; Eosinophils # (A) 0.1 k/uL (0-0.7); Eosinophils % (A) 1 %; HCT 34.9 % (39.0-53.0); Hypochromasia Moderate; Lymphocytes # (A) 0.7 k/uL (1.0-4.8); Lymphocytes % (A) 5 %; MCH 28.8 pg (25.0-35.0); MCHC 31.4 g/dL (31.0-37.0); MCV 91.8 fL (80.0-100.0); Mean Platelet Volume 9.3; Monocytes # (A) 0.9 k/uL (0-1.0); Monocytes % (A) 7 %; Neutrophils % (A) 86 %; Platelet Count 163 k/uL (150-450); RDW 15.2 % (11.5-15.5); WBC 12.9 k/uL (3.8-10.6)
[2023-08-05 12:17] LABS: ALT 104 U/L (4-49); AST 104 U/L (17-59); African American GFR (CKD) 41 (>60 ml/min/1.73 sqM); Albumin 4.1 g/dL (3.5-5.0); Alkaline Phosphatase 130 U/L (38-126); Anion Gap 7 mmol/L; Calcium 8.5 mg/dL (8.4-10.2); Carbon Dioxide 36 mmol/L (22-30); Chloride 93 mmol/L (98-107); Glucose 193 mg/dL (74-99); Non-African American GFR(CKD) 36 (>60 ml/min/1.73 sqM); Potassium 4.4 mmol/L (3.5-5.1); Sodium 136 mmol/L (137-145); Total Bilirubin 0.7 mg/dL (0.2-1.3); Total Protein 6.5 g/dL (6.3-8.2)
[2023-08-05 12:32] LABS: Blood Urea Nitrogen 129 mg/dL (9-20)
[2023-08-05] MEDS: FUROSEMIDE 20 MG TAB PO SCH (15:16)
[2023-08-05 16:52] LABS: Glucose,Whole Blood 462 mg/dL (70-110)
[2023-08-05 20:35] LABS: Glucose,Whole Blood 108 mg/dL (70-110)
--- NOTE | 2023-08-05 22:55 | PN ---
PROGRESS NOTE SUBJECTIVE: This is a 63-year-old white male with diastolic and systolic heart failure, acute. He is having less fluid in his belly and his legs with high-dose IV Lasix, mild-to- moderate nonobstructive coronary artery disease, ejection fraction 20% to 25%, started on IV Lasix every 12 hours. Creatinine is 1.92. He is sitting outside the bed. He is breathing better. Remains on IV Lasix. OBJECTIVE: HEENT: Normocephalic, atraumatic. Pupils equal, round, and reactive. LUNGS: Rales at the bases. GI: Soft. HEMATOLOGY: Negative for Homans. PSYCH: Fair mood and affect. ASSESSMENT: Shortness of breath, acute on chronic heart failure, reduced ejection fraction, elevated troponin, type 2 OR, coronary artery disease with previous stenting, mild-to- moderate nonobstructive coronary artery disease, ischemic cardiomyopathy, acute on chronic kidney disease, chronic hypoxemic respiratory failure, history of COPD, hypertension, dyslipidemia, history of ascites, nicotine addiction, alcohol abuse, noncompliance. Continue Lasix, possibly switch to oral Lasix, he can go home soon. Continue current cardiac medicines. He appears to be improving. Prognosis guarded. MMODL / IJN: [id number] /
[2023-08-06 06:16] LABS: Glucose,Whole Blood 177 mg/dL (70-110)
--- NOTE | 2023-08-06 11:10 | P.PN ---
Subjective Patient is seen for follow-up for acute kidney injury and chronic kidney disease. He is currently being diuresed. Lasix was switched to oral yesterday. No significant complaints. Serum creatinine at 1.9 yesterday, BUN had improved to 129. Labs are pending from today. Urine output charted at 1600 mL. Patient states shortness of breath has improved much. Objective - Vital Signs Vital signs: Vital Signs Temp 97.5 F L 08/06/23 08:00 Pulse 72 08/06/23 08:30 Resp 20 08/06/23 08:00 BP 140/66 08/06/23 08:00 Pulse Ox 99 08/06/23 08:00 FiO2 Intake & Output 08/05/23 08/06/23 08/06/23 18:59 06:59 18:59 Intake Total 1320 701 480 Output Total 1300 300 300 Balance 20 401 180 Weight 77.4 kg Intake: Oral 1320 701 480 Output: Urine 1300 300 300 Other: Voiding Method Toilet Toilet Urinal # Voids 1 1 - Exam Patient is awake, comfortable, no acute distress Examination of the heart S1 and S2 Examination of the lungs decreased breath sounds at the bases Abdomen is soft nontender Examination lower extremity shows 1+ edema bilaterally 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 - Labs CBC & Chem 7: 08/05/23 11:18 08/05/23 11:18 Labs: Abnormal Lab Results - Last 24 Hours (Table) 08/05/23 08/05/23 08/05/23 Range/Units 11:18 11:18 11:42 WBC 12.9 H (3.8-10.6) k/uL RBC 3.80 L (4.30-5.90) m/uL Hgb 11.0 L (13.0-17.5) gm/dL Hct 34.9 L (39.0-53.0) % Neutrophils # 11.0 H (1.3-7.7) k/uL Lymphocytes # 0.7 L (1.0-4.8) k/uL Sodium 136 L (137-145) mmol/L Chloride 93 L (98-107) mmol/L Carbon Dioxide 36 H (22-30) mmol/L BUN 129 H* (9-20) mg/dL Creatinine 1.93 H (0.66-1.25) mg/dL Glucose 193 H (74-99) mg/dL POC Glucose (mg/dL) 272 H (70-110) mg/dL AST 104 H (17-59) U/L ALT 104 H (4-49) U/L Alkaline Phosphatase 130 H (38-126) U/L 08/05/23 08/06/23 Range/Units 16:51 06:00 WBC (3.8-10.6) k/uL RBC (4.30-5.90) m/uL Hgb (13.0-17.5) gm/dL Hct (39.0-53.0) % Neutrophils # (1.3-7.7) k/uL Lymphocytes # (1.0-4.8) k/uL Sodium (137-145) mmol/L Chloride (98-107) mmol/L Carbon Dioxide (22-30) mmol/L BUN (9-20) mg/dL Creatinine (0.66-1.25) mg/dL Glucose (74-99) mg/dL POC Glucose (mg/dL) 462 H 177 H (70-110) mg/dL AST (17-59) U/L ALT (4-49) U/L Alkaline Phosphatase (38-126) U/L Assessment and Plan Assessment: 1. Chronic kidney disease stage IIIb secondary to cardiorenal syndrome and diabetic kidney disease. Baseline creatinine 1.8-2. GFR currently near ba seline. No hydronephrosis noted on CAT scan. Elevated BUN out of proportion to chronic kidney disease related to steroids. No evidence of GI bleed. UA fairly benign. 2. Acute on chronic systolic CHF with ejection fraction of 20 to 25% with moderate to severe pulmonary hypertension. 3. Fluid overload. Improving with diuresis. 4. Coronary artery disease with prior stenting. 5. Diabetes mellitus. 6. Hypervolemic hyponatremia with component of hypertonicity from hyperglycemia. Stable. 7. Anemia of chronic kidney disease. Iron deficiency noted. Plan: Continue Lasix 60 mg orally twice daily. Baseline creatinine around 1.8 to 2 mg/dL. DC IV iron Continue with Entresto Repeat labs
--- NOTE | 2023-08-06 11:25 | P.PN ---
Subjective HISTORY OF PRESENT ILLNESS: This is a 63-year-old male with a past medical history significant for coronary artery disease with previous stenting, ischemic cardiomyopathy, hypertension, hyperlipidemia, nicotine dependence, and former alcohol abuse. Patient has not followed in the office since 2015, however at that time he saw Dr. Soni. We have been asked to see the patient in consultation for CHF. Patient examined at the bedside in the emergency room. Patient presented to the hospital yesterday with a chief complaint of shortness of breath. He states he has been feeling short of breath for the past few days at home. He reports home oxygen use and states he utilizes O2 /. He reports increased lower extremity edema and also increa sed abdominal bloating. He reports a weight gain of about 12 pounds over the past week. The patient states he has been taking his medications as prescribed until recently when he began to run out of some of them. He is unsure which ones he ran out of but he believes one of them is a diuretic and another 1 is a blood pressure pill. He reports an episode of chest pain yesterday at home after walking to the bathroom. He states the pain lasted for about 2 minutes and then resolved on its own. He denies any further episodes of chest pain or pressure since that time. The patient reports he has not smoked in 2 or 3 months. He also reports he has not drank alcohol in over 30 years. Patient's blood pressure is elevated at the time of examination with a systolic in the 150s. Bedside telemetry reveals sinus mechanism with a heart rate in the 70s. DIAGNOSTICS: EKG reveals sinus mechanism with T wave inversions in inferior leads and V5V6, similar to previous EKG Chest xray mild CHF. Bilateral pleural effusions. Worse on the left. Laboratory data: Sodium 133. Potassium 5.9. However specimen is hemolyzed. BUN 34. Creatinine 1.51. Troponin 0.149. proBNP 25,700. Current home cardiac medications include medication list is not updated at the time of dictation Most recent echocardiogram obtained in March 2023 revealed ejection fraction 20 to 25%, mild to moderate TR, trace MR, and calcified aortic valve without significant stenosis Cardiac catheterization history: January 2016 revealing intermediate in-stent restenosis of the RCA, mild to moderate nonobstructive coronary artery disease involving the left coronary system, normal left ventricular systolic function. 07/23/2023 Patient examined this morning at the bedside. Patient complains of back pain this morning. He continues to report SOB. He remains on IV lasix. He continues to be volume overloaded. Creatinine today 1.57. BUN 49. Blood pressure remains elevated although improved from yesterday. July 24, 2023 Patient examined this morning at bedside. Patient denies chest pain or pressure. He continues to report shortness of breath, although improved from yesterday. Remains on IV diuretics. Kidney function remained stable today. Creatinine 1.69. He continues to have abdominal distention, although improving. Vital signs are stable. Most recent blood pressure 147/49. July 25, 2023 Patient examined this morning at the bedside. Patient denies chest pain or pressure. He continues to report shortness of breath. Creatinine today is increased from 1.6-1.9. He is currently on 60 mg of Lasix twice a day. Telemetry reveals sinus mechanism. Abdominal ultrasound was performed with out evidence for significant ascites July 26, 2023 Patient examined this morning at the bedside. Patient denies chest pain or pressure. He currently denies shortness of breath. He complains of continued abdominal bloating this morning and pain with ambulation due to the swelling in his legs. He remains on IV Lasix 40 mg twice a day. Creatinine 1.84 today. July 27, 2023 Patient examined this morning at the bedside. He currently denies chest pain or pressure. He reports improvement in his shortness of breath. He continues to complain of abdominal bloating this morning and lower extremity edema. He remains on IV Lasix 40 mg every 12 hours. Creatinine is stable today at 1.92. Most recent blood pressure 138/80. 07/28 Patient is complaining of abdominal distention. He states his breathing is a little bit better since he is coming to the hospital. He continues to have lower extremity edema. He states he is urinating a lot. Blood pressure 136/77. Heart rate is in the 70s, pulse ox 98% on room air. Patient's weight appears to be elevated. He is maintained on Lasix 40 mg IV every 12 hours. 07/29 Patient denies having any chest pain and no pressure. He has ongoing concern r egarding abdominal discomfort and distention. Nephrology has started the patient on Lasix drip at 10 mg/h and has been started on metolazone 5 mg daily. Patient states he is feel to urinals in the last 1 hour. Blood pressure 147/89, heart rate in the 70s. Repeat blood work reveals hemoglobin 10.9, BUN 107 creatinine 1.77, sodium 134, potassium 5.3. 07/30 Patient states he has finally noticed improvement of the abdominal distention and improvement of fluid. He was started yesterday on Lasix drip and metolazone. Yesterday we increased hydralazine and Isordil. Blood pressure 157/74, heart rate in the 70s. Repeat blood work reveals hemoglobin 9.8, platelet count 149. Sodium 134, potassium 4.3, BUN 112 and creatinine 1.82. 07/31/2023 He reports that his abdominal swelling is improved. Legs are still swollen and wrapped. No chest pain. Kidneys are stable, creat 1.71. Blood pressure is still elevated. 08/01 Nephrology has taken the patient off Lasix drip and started him on IV 60 mg tw ice daily. Patient states that his abdominal distention and fluid retention have improved. Blood pressure 160/92, heart rate in the 80s. Repeat blood work reveals hemoglobin of 10.1. BUN 128, creatinine 1.98. Sodium 132, potassium 5.4, chloride 89, CO2 35. 08/02 Blood pressure 112/78, heart rate in 70s and 80s, pulse ox 97% on 2 L nasal cannula. Repeat blood work has not been reported at the time of this dictation. Patient continues to have good urine output although he feels it slowed eric ewhat yesterday and picked up again today. He was transition by nephrology from the Lasix drip to IV Lasix 60 mg twice daily and continued on metolazone and SGLT2i. He has also been undergoing iron infusions. Attending has started the patient on Entresto and Revatio. Patient states that his lower legs started draining last night for about 2 hours. Patient states this improved with leg wraps. 08/03 Yesterday, we increase Lasix to 80 mg 3 times daily IV push and discontinue Revatio as patient was already started on Isordil by us. Patient output has not been recorded. His weight appears to be down almost 2 kg from yesterday. Blood pressure today 115/68, heart rate in the 80s. Telemetry is sinus rhythm. Repeat blood work reveals WBC 8, hemoglobin 10, platelet count 148. Sodium 133, potassium 4.2, BUN 125, creatinine 1.68. Patient states that his legs are bothering him he does have some weeping. Patient advised to elevate his legs. He has been compliant with wrapping. 08/04/2022 Patient examined this morning at the bedside. Patient currently denies chest pain or pressure. He reports his breathing has been stable. He remains on IV diuretics. BUN 125. Creatinine 1.68. Blood pressure 122/74. August 05, 2023 Patient examined this morning at the bedside. Patient is currently sitting on the side of the bed. At the time of examination, he denies any shortness of breath. He denies any chest pain or pressure. He remains on IV Lasix. August 06, 2023 Patient examined this morning at the bedside. Patient denies chest pain or pressure. He continues to report improvement in his shortness of breath. He remains on oral diuretics: Lasix 60 mg twice a day. Vital signs stable. Blood pressure 140/66. PHYSICAL EXAM: VITAL SIGNS: Reviewed. GENERAL: Well-developed in no acute distress. HEENT: Head is normocephalic. Pupils are equal, round. Sclerae anicteric. Mucous membranes of the mouth are moist. Neck supple. No JVD or thyromegaly LUNGS: Respirations even and unlabored. Lungs diminished at the bases HEART: Regular rate and rhythm. S1 and S2 heard. Soft systolic murmur noted. EXTREMITIES: Normal range of motion. No clubbing or cyanosis. Peripheral puls es intact. 1+ bilateral pitting lower extremity edema ASSESSMENT: Shortness of breath Acute on chronic heart failure with reduced ejection fraction, 25%, proBNP 25,700 Elevated troponin, suspect secondary to type II [place] secondary to oxygen supply demand mismatch Coronary artery disease with previous stenting of the RCA Mild to moderate nonobstructive CAD involving left coronary system Ischemic cardiomyopathy Acute on chronic kidney disease Chronic hypoxic respiratory failure on home O2, 20/01 History of COPD Hypertension Hyperlipidemia History of ascites with previous paracentesis, x 4 per patient Former nicotine dependence, patient quit smoking 2 to 3 months ago Former alcohol abuse, patient states he has not drank in 30 years History of medication noncompliance Hyponatremia Hyperkalemia PLAN: Continue Lasix per nephrology. Patient currently on Lasix 60 mg twice a day orally Continue to monitor kidney function. Awaiting labs from this morning Continue additional cardiac medications Patient is currently stable from a cardiac perspective Further recommendations pending patient course Nurse practitioner note has been reviewed by physician. Signing provider agrees with the documented findings, assessment, and plan of care. Objective - Vital Signs Vital signs: Vital Signs Temp 97.5 F L 08/06/23 08:00 Pulse 72 08/06/23 08:30 Resp 20 08/06/23 08:00 BP 140/66 08/06/23 08:00 Pulse Ox 99 08/06/23 08:00 FiO2 Intake & Output 08/05/23 08/06/23 08/06/23 18:59 06:59 18:59 Intake Total 1320 701 480 Output Total 1300 300 300 Balance 20 401 180 Weight 77.4 kg Intake: Oral 1320 701 480 Output: Urine 1300 300 300 Other: Voiding Method Toilet Toilet Urinal # Voids 1 1 - Labs CBC & Chem 7: 08/05/23 11:18 08/05/23 11:18 Labs: Abnormal Lab Results - Last 24 Hours (Table) 08/05/23 08/05/23 08/05/23 Range/Units 11:18 11:18 11:42 WBC 12.9 H (3.8-10.6) k/uL RBC 3.80 L (4.30-5.90) m/uL Hgb 11.0 L (13.0-17.5) gm/dL Hct 34.9 L (39.0-53.0) % Neutrophils # 11.0 H (1.3-7.7) k/uL Lymphocytes # 0.7 L (1.0-4.8) k/uL Sodium 136 L (137-145) mmol/L Chloride 93 L (98-107) mmol/L Carbon Dioxide 36 H (22-30) mmol/L BUN 129 H* (9-20) mg/dL Creatinine 1.93 H (0.66-1.25) mg/dL Glucose 193 H (74-99) mg/dL POC Glucose (mg/dL) 272 H (70-110) mg/dL AST 104 H (17-59) U/L ALT 104 H (4-49) U/L Alkaline Phosphatase 130 H (38-126) U/L 08/05/23 08/06/23 Range/Units 16:51 06:00 WBC (3.8-10.6) k/uL RBC (4.30-5.90) m/uL Hgb (13.0-17.5) gm/dL Hct (39.0-53.0) % Neutrophils # (1.3-7.7) k/uL Lymphocytes # (1.0-4.8) k/uL Sodium (137-145) mmol/L Chloride (98-107) mmol/L Carbon Dioxide (22-30) mmol/L BUN (9-20) mg/dL Creatinine (0.66-1.25) mg/dL Glucose (74-99) mg/dL POC Glucose (mg/dL) 462 H 177 H (70-110) mg/dL AST (17-59) U/L ALT (4-49) U/L Alkaline Phosphatase (38-126) U/L
[2023-08-06 11:50] LABS: Glucose,Whole Blood 269 mg/dL (70-110)
[2023-08-06 12:14] VITALS: RESP 18
[2023-08-06 14:55] LABS: ALT 89 U/L (4-49); AST 98 U/L (17-59); African American GFR (CKD) 46 (>60 ml/min/1.73 sqM); Albumin 3.4 g/dL (3.5-5.0); Alkaline Phosphatase 103 U/L (38-126); Anion Gap 7 mmol/L; Carbon Dioxide 31 mmol/L (22-30); Chloride 97 mmol/L (98-107); Glucose 254 mg/dL (74-99); Non-African American GFR(CKD) 40 (>60 ml/min/1.73 sqM); Potassium 4.6 mmol/L (3.5-5.1); Sodium 135 mmol/L (137-145); Total Bilirubin 0.5 mg/dL (0.2-1.3); Total Protein 5.7 g/dL (6.3-8.2)
[2023-08-06 15:08] LABS: Blood Urea Nitrogen 129 mg/dL (9-20)
[2023-08-06 16:51] LABS: Glucose,Whole Blood 392 mg/dL (70-110)
[2023-08-06 19:58] LABS: Glucose,Whole Blood 289 mg/dL (70-110)
--- NOTE | 2023-08-06 23:21 | PN ---
PROGRESS NOTE SUBJECTIVE: He came in with severe systolic CHF. He is on Lasix, switched to orally 80 IV push, blood pressure 115/68, heart rate in the 80s. Hemoglobin is 10, sodium 133, potassium 4.2. Continue with his leg wrapping. Cardiology are going to fine-tune him. Dr. Ellis, renal physician is trying to improve his BUN, which is 129, creatinine 1.9. Urine output 1600 mL. His breathing is improved. His leg edema is 1+ bilaterally. OBJECTIVE: CARDIOVASCULAR: S1, S2. LUNGS: Clear. Labs are pending today. He is on Lasix 60 twice a day, continue on Entresto. Stop IV iron. Possibly discharge home as he is improving. Anemia of chronic disease, diabetes mellitus, systolic and diastolic heart failure. He has acute CHF, chronic kidney disease 3B, coronary artery disease, diabetes mellitus, COPD, pulmonary hypertension. Continue current treatment. Prognosis guarded. Possibly go home today or tomorrow depending on patient's improvement. Sugars have been high up to 400s, now in the 100s and 200s, varies. Continue current treatment. Prognosis guarded. MMODL / IJN: [id number] /
[2023-08-07 05:47] VITALS: TEMP 98
[2023-08-07 06:05] LABS: Glucose,Whole Blood 102 mg/dL (70-110)
[2023-08-07 10:00] VITALS: BP 119/63; PULSE 68
--- NOTE | 2023-08-07 10:48 | P.PN ---
Subjective Patient is seen for follow-up for acute kidney injury and chronic kidney disease. He is currently being diuresed. Volume status is much improved No significant complaints. Serum creatinine decreased to 1.7 yesterday, BUN had improved to 129. Urine output charted at 1600 mL. Patient states shortness of breath has improved much. Objective - Vital Signs Vital signs: Vital Signs Temp 98.0 F 08/07/23 08:00 Pulse 79 08/07/23 08:31 Resp 18 08/07/23 08:00 BP 119/63 08/07/23 08:00 Pulse Ox 95 08/07/23 08:18 FiO2 Intake & Output 08/06/23 08/07/23 08/07/23 18:59 06:59 18:59 Intake Total 1180 240 Output Total 1300 1200 Balance -120 -960 Weight 76.9 kg Intake: Oral 1180 240 Output: Urine 1300 1200 Other: Voiding Method Urinal Urinal Urinal # Voids 1 - Exam Patient is awake, comfortable, no acute distress Examination of the heart S1 and S2 Examination of the lungs decreased breath sounds at the bases Abdomen is soft nontender Examination lower extremity shows 1+ edema bilaterally 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 - Labs CBC & Chem 7: 08/05/23 11:18 08/06/23 14:25 Labs: Abnormal Lab Results - Last 24 Hours (Table) 08/06/23 08/06/23 08/06/23 Range/Units 11:48 14:25 16:49 Sodium 135 L (137-145) mmol/L Chloride 97 L (98-107) mmol/L Carbon Dioxide 31 H (22-30) mmol/L BUN 129 H* (9-20) mg/dL Creatinine 1.78 H (0.66-1.25) mg/dL Glucose 254 H (74-99) mg/dL POC Glucose (mg/dL) 269 H 392 H (70-110) mg/dL Calcium 8.0 L (8.4-10.2) mg/dL AST 98 H (17-59) U/L ALT 89 H (4-49) U/L Total Protein 5.7 L (6.3-8.2) g/dL Albumin 3.4 L (3.5-5.0) g/dL 08/06/23 Range/Units 19:51 Sodium (137-145) mmol/L Chloride (98-107) mmol/L Carbon Dioxide (22-30) mmol/L BUN (9-20) mg/dL Creatinine (0.66-1.25) mg/dL Glucose (74-99) mg/dL POC Glucose (mg/dL) 289 H (70-110) mg/dL Calcium (8.4-10.2) mg/dL AST (17-59) U/L ALT (4-49) U/L Total Protein (6.3-8.2) g/dL Albumin (3.5-5.0) g/dL Assessment and Plan Assessment: 1. Chronic kidney disease stage IIIb secondary to cardiorenal syndrome and diabetic kidney disease. Baseline creatinine 1.8-2. GFR currently near baseline. No hydronephrosis noted on CAT scan. Elevated BUN out of proportion to chronic kidney disease related to steroids. No evidence of GI bleed. UA fairly benign. 2. Acute on chronic systolic CHF with ejection fraction of 20 to 25% with moderate to severe pulmonary hypertension. 3. Fluid overload. Improving with diuresis. 4. Coronary artery disease with prior stenting. 5. Diabetes mellitus. 6. Hypervolemic hyponatremia with component of hypertonicity from hyperglycemia. Stable. 7. Anemia of chronic kidney disease. Iron deficiency noted. Status post IV iron Plan: Continue Lasix 60 mg orally twice daily. Baseline creatinine around 1.8 to 2 mg/dL. Follow-up as outpatient with nephrology in 1 to 2 weeks Continue with Entresto Repeat labs
--- NOTE | 2023-08-07 12:20 | P.PN ---
Subjective HISTORY OF PRESENT ILLNESS: This is a 63-year-old male with a past medical history significant for coronary artery disease with previous stenting, ischemic cardiomyopathy, hypertension, hyperlipidemia, nicotine dependence, and former alcohol abuse. Patient has not followed in the office since 2015, however at that time he saw Dr. Soni. We have been asked to see the patient in consultation for CHF. Patient examined at the bedside in the emergency room. Patient presented to the hospital yesterday with a chief complaint of shortness of breath. He states he has been feeling short of breath for the past few days at home. He reports home oxygen use and states he utilizes O2 /. He reports increased lower extremity edema and also increa sed abdominal bloating. He reports a weight gain of about 12 pounds over the past week. The patient states he has been taking his medications as prescribed until recently when he began to run out of some of them. He is unsure which ones he ran out of but he believes one of them is a diuretic and another 1 is a blood pressure pill. He reports an episode of chest pain yesterday at home after walking to the bathroom. He states the pain lasted for about 2 minutes and then resolved on its own. He denies any further episodes of chest pain or pressure since that time. The patient reports he has not smoked in 2 or 3 months. He also reports he has not drank alcohol in over 30 years. Patient's blood pressure is elevated at the time of examination with a systolic in the 150s. Bedside telemetry reveals sinus mechanism with a heart rate in the 70s. DIAGNOSTICS: EKG reveals sinus mechanism with T wave inversions in inferior leads and V5V6, similar to previous EKG Chest xray mild CHF. Bilateral pleural effusions. Worse on the left. Laboratory data: Sodium 133. Potassium 5.9. However specimen is hemolyzed. BUN 34. Creatinine 1.51. Troponin 0.149. proBNP 25,700. Current home cardiac medications include medication list is not updated at the time of dictation Most recent echocardiogram obtained in March 2023 revealed ejection fraction 20 to 25%, mild to moderate TR, trace MR, and calcified aortic valve without significant stenosis Cardiac catheterization history: January 2016 revealing intermediate in-stent restenosis of the RCA, mild to moderate nonobstructive coronary artery disease involving the left coronary system, normal left ventricular systolic function. 07/23/2023 Patient examined this morning at the bedside. Patient complains of back pain this morning. He continues to report SOB. He remains on IV lasix. He continues to be volume overloaded. Creatinine today 1.57. BUN 49. Blood pressure remains elevated although improved from yesterday. July 24, 2023 Patient examined this morning at bedside. Patient denies chest pain or pressure. He continues to report shortness of breath, although improved from yesterday. Remains on IV diuretics. Kidney function remained stable today. Creatinine 1.69. He continues to have abdominal distention, although improving. Vital signs are stable. Most recent blood pressure 147/49. July 25, 2023 Patient examined this morning at the bedside. Patient denies chest pain or pressure. He continues to report shortness of breath. Creatinine today is increased from 1.6-1.9. He is currently on 60 mg of Lasix twice a day. Telemetry reveals sinus mechanism. Abdominal ultrasound was performed with out evidence for significant ascites July 26, 2023 Patient examined this morning at the bedside. Patient denies chest pain or pressure. He currently denies shortness of breath. He complains of continued abdominal bloating this morning and pain with ambulation due to the swelling in his legs. He remains on IV Lasix 40 mg twice a day. Creatinine 1.84 today. July 27, 2023 Patient examined this morning at the bedside. He currently denies chest pain or pressure. He reports improvement in his shortness of breath. He continues to complain of abdominal bloating this morning and lower extremity edema. He remains on IV Lasix 40 mg every 12 hours. Creatinine is stable today at 1.92. Most recent blood pressure 138/80. 07/28 Patient is complaining of abdominal distention. He states his breathing is a little bit better since he is coming to the hospital. He continues to have lower extremity edema. He states he is urinating a lot. Blood pressure 136/77. Heart rate is in the 70s, pulse ox 98% on room air. Patient's weight appears to be elevated. He is maintained on Lasix 40 mg IV every 12 hours. 07/29 Patient denies having any chest pain and no pressure. He has ongoing concern r egarding abdominal discomfort and distention. Nephrology has started the patient on Lasix drip at 10 mg/h and has been started on metolazone 5 mg daily. Patient states he is feel to urinals in the last 1 hour. Blood pressure 147/89, heart rate in the 70s. Repeat blood work reveals hemoglobin 10.9, BUN 107 creatinine 1.77, sodium 134, potassium 5.3. 07/30 Patient states he has finally noticed improvement of the abdominal distention and improvement of fluid. He was started yesterday on Lasix drip and metolazone. Yesterday we increased hydralazine and Isordil. Blood pressure 157/74, heart rate in the 70s. Repeat blood work reveals hemoglobin 9.8, platelet count 149. Sodium 134, potassium 4.3, BUN 112 and creatinine 1.82. 07/31/2023 He reports that his abdominal swelling is improved. Legs are still swollen and wrapped. No chest pain. Kidneys are stable, creat 1.71. Blood pressure is still elevated. 08/01 Nephrology has taken the patient off Lasix drip and started him on IV 60 mg tw ice daily. Patient states that his abdominal distention and fluid retention have improved. Blood pressure 160/92, heart rate in the 80s. Repeat blood work reveals hemoglobin of 10.1. BUN 128, creatinine 1.98. Sodium 132, potassium 5.4, chloride 89, CO2 35. 08/02 Blood pressure 112/78, heart rate in 70s and 80s, pulse ox 97% on 2 L nasal cannula. Repeat blood work has not been reported at the time of this dictation. Patient continues to have good urine output although he feels it slowed eric ewhat yesterday and picked up again today. He was transition by nephrology from the Lasix drip to IV Lasix 60 mg twice daily and continued on metolazone and SGLT2i. He has also been undergoing iron infusions. Attending has started the patient on Entresto and Revatio. Patient states that his lower legs started draining last night for about 2 hours. Patient states this improved with leg wraps. 08/03 Yesterday, we increase Lasix to 80 mg 3 times daily IV push and discontinue Revatio as patient was already started on Isordil by us. Patient output has not been recorded. His weight appears to be down almost 2 kg from yesterday. Blood pressure today 115/68, heart rate in the 80s. Telemetry is sinus rhythm. Repeat blood work reveals WBC 8, hemoglobin 10, platelet count 148. Sodium 133, potassium 4.2, BUN 125, creatinine 1.68. Patient states that his legs are bothering him he does have some weeping. Patient advised to elevate his legs. He has been compliant with wrapping. 08/04/2022 Patient examined this morning at the bedside. Patient currently denies chest pain or pressure. He reports his breathing has been stable. He remains on IV diuretics. BUN 125. Creatinine 1.68. Blood pressure 122/74. August 05, 2023 Patient examined this morning at the bedside. Patient is currently sitting on the side of the bed. At the time of examination, he denies any shortness of breath. He denies any chest pain or pressure. He remains on IV Lasix. August 06, 2023 Patient examined this morning at the bedside. Patient denies chest pain or pressure. He continues to report improvement in his shortness of breath. He remains on oral diuretics: Lasix 60 mg twice a day. Vital signs stable. Blood pressure 140/66. IBU 01/2024 Patient examined this morning at the bedside. Patient denies chest pain or pressure. He currently denies shortness of breath. He remains on oral diure tics. Vital signs are stable. Plans are for discharge today. PHYSICAL EXAM: VITAL SIGNS: Reviewed. GENERAL: Well-developed in no acute distress. HEENT: Head is normocephalic. Pupils are equal, round. Sclerae anicteric. Mucous membranes of the mouth are moist. Neck supple. No JVD or thyromegaly LUNGS: Respirations even and unlabored. Lungs diminished at the bases HEART: Regular rate and rhythm. S1 and S2 heard. Soft systolic murmur noted. EXTREMITIES: Normal range of motion. No clubbing or cyanosis. Peripheral pulses intact. 1+ bilateral pitting lower extremity edema ASSESSMENT: Shortness of breath Acute on chronic heart failure with reduced ejection fraction, 25%, proBNP 25,700 Elevated troponin, suspect secondary to type II TN secondary to oxygen supply demand mismatch Coronary artery disease with previous stenting of the RCA Mild to moderate nonobstructive CAD involving left coronary system Ischemic cardiomyopathy Acute on chronic kidney disease Chronic hypoxic respiratory failure on home O2, / History of COPD Hypertension Hyperlipidemia History of ascites with previous paracentesis, x 4 per patient Former nicotine dependence, patient quit smoking 2 to 3 months ago Former alcohol abuse, patient states he has not drank in 30 years History of medication noncompliance Hyponatremia Hyperkalemia PLAN: Continue current cardiac medications Patient is currently stable from a cardiac perspective Patient may be discharged home today from a cardiology perspective Nurse practitioner note has been reviewed by physician. Signing provider agrees with the documented findings, assessment, and plan of care. Objective - Vital Signs Vital signs: Vital Signs Temp 98.0 F 08/07/23 08:00 Pulse 79 08/07/23 08:31 Resp 18 08/07/23 08:00 BP 119/63 08/07/23 08:00 Pulse Ox 95 08/07/23 08:18 FiO2 Intake & Output 08/06/23 08/07/23 08/07/23 18:59 06:59 18:59 Intake Total 1180 240 Output Total 1300 1200 Balance -120 -960 Weight 76.9 kg Intake: Oral 1180 240 Output: Urine 1300 1200 Other: Voiding Method Urinal Urinal Urinal # Voids 1 - Labs CBC & Chem 7: 08/05/23 11:18 08/06/23 14:25 Labs: Abnormal Lab Results - Last 24 Hours (Table) 08/06/23 08/06/23 08/06/23 Range/Units 14:25 16:49 19:51 Sodium 135 L (137-145) mmol/L Chloride 97 L (98-107) mmol/L Carbon Dioxide 31 H (22-30) mmol/L BUN 129 H* (9-20) mg/dL Creatinine 1.78 H (0.66-1.25) mg/dL Glucose 254 H (74-99) mg/dL POC Glucose (mg/dL) 392 H 289 H (70-110) mg/dL Calcium 8.0 L (8.4-10.2) mg/dL AST 98 H (17-59) U/L ALT 89 H (4-49) U/L Total Protein 5.7 L (6.3-8.2) g/dL Albumin 3.4 L (3.5-5.0) g/dL
== END 2023-08-07 11:00 | disposition home or self-care (01) | DRG 194 ==
LOC: EC 01:24 → 3SCARD 03:45
PROVIDERS: ADMIT Family Medicine; ATTEND Family Medicine
DX: I13.0 Hypertensive heart and chronic kidney disease with heart failure and stage 1 through stage 4 chronic kidney disease, or unspecified chronic kidney disease (principal); J96.21 Acute and chronic respiratory failure with hypoxia; J69.0 Pneumonitis due to inhalation of food and vomit; I21.A1 Myocardial infarction type 2; D63.1 Anemia in chronic kidney disease; E11.36 Type 2 diabetes mellitus with diabetic cataract; E87.1 Hypo-osmolality and hyponatremia; I50.23 Acute on chronic systolic (congestive) heart failure; N17.9 Acute kidney failure, unspecified; K70.31 Alcoholic cirrhosis of liver with ascites; I27.20 Pulmonary hypertension, unspecified; I69.354 Hemiplegia and hemiparesis following cerebral infarction affecting left non-dominant side; E86.1 Hypovolemia; E11.22 Type 2 diabetes mellitus with diabetic chronic kidney disease; E11.40 Type 2 diabetes mellitus with diabetic neuropathy, unspecified; E11.65 Type 2 diabetes mellitus with hyperglycemia; F10.21 Alcohol dependence, in remission; F31.9 Bipolar disorder, unspecified; N18.32 Chronic kidney disease, stage 3b; J44.9 Chronic obstructive pulmonary disease, unspecified; Z66 Do not resuscitate; I25.10 Atherosclerotic heart disease of native coronary artery without angina pectoris; T82.855A Stenosis of coronary artery stent, initial encounter; M50.30 Other cervical disc degeneration, unspecified cervical region; I25.5 Ischemic cardiomyopathy; E61.1 Iron deficiency; E78.5 Hyperlipidemia, unspecified; E87.5 Hyperkalemia; H26.9 Unspecified cataract; B19.20 Unspecified viral hepatitis C without hepatic coma; I25.2 Old myocardial infarction; G89.29 Other chronic pain; M54.50 Low back pain, unspecified; J98.11 Atelectasis; J30.9 Allergic rhinitis, unspecified; F41.9 Anxiety disorder, unspecified; K57.30 Diverticulosis of large intestine without perforation or abscess without bleeding; Z91.199 Patient's noncompliance with other medical treatment and regimen due to unspecified reason; Z91.148 Patient's other noncompliance with medication regimen for other reason; T38.0X5A Adverse effect of glucocorticoids and synthetic analogues, initial encounter; Z99.81 Dependence on supplemental oxygen; Z79.82 Long term (current) use of aspirin; Z79.899 Other long term (current) drug therapy; Z95.5 Presence of coronary angioplasty implant and graft; Z87.891 Personal history of nicotine dependence; R29.6 Repeated falls; Z86.14 Personal history of Methicillin resistant Staphylococcus aureus infection; Z88.0 Allergy status to penicillin; Z88.8 Allergy status to other drugs, medicaments and biological substances; Z82.49 Family history of ischemic heart disease and other diseases of the circulatory system
CPT/HCPCS: 36415; 71045; 71046; 71250; 74176; 76705; 80048; 80053; 81003; 82140; 82728; 83036; 83540; 83550; 83605; 83735; 83880; 84132; 84145; 84484; 85025; 85379; 85610; 85730; 93005; 94640; 94760; 96374; 96375; 96376; 99285

== ENCOUNTER 2023-11-07 12:22 | Observation (INO) | payer OTHER ==
--- NOTE | 2023-11-07 12:58 | ED ---
General Adult HPI - General Chief complaint: Shortness of Breath Stated complaint: STANLEY Time Seen by Provider: 11/07/23 12:23 Source: patient Mode of arrival: EMS Limitations: no limitations - History of Present Illness Initial comments: Dictation was produced using [employer] dictation software. please excuse any grammatical, word or spelling errors. Chief Complaint: 63-year-old male presents to the emergency department for shortness of breath History of Present Illness: Patient 63-year-old male presents emergency department for shortness of breath. Patient has history of heart failure and COPD. He smokes 2 cigarettes daily. Patient has multiple comorbidities including cardiomyopathy with reduced ejection fraction along with coronary artery disease multiple stents. Last several days patient has had acute on chronic shortness of breath. States it is worse when he lay flat. Denies any leg swelling. Does complain of some mild runny nose. Denies any fever or chest pains. Patient arrived via EMS. The ROS documented in this emergency department record has been reviewed and confirmed by me. Those systems with pertinent positive or negative responses have been documented in the HPI. All other systems are other negative and/or noncontributory. - Related Data Home Medications Medication Instructions Recorded Confirmed Albuterol Sulfate [Ventolin HFA] 1 - 2 puff INHALATION RT-Q6H PRN 05/20/23 07/22/23 HYDROcodone/APAP 10-325MG [[place] 1 tab PO QID 05/20/23 07/22/23 10-325] Ipratropium-Albuterol Nebulize 3 ml INHALATION RT-TID 05/20/23 07/22/23 [Duoneb 0.5 mg-3 mg/3 ml Soln] Previous Rx's Medication Instructions Recorded Aspirin 81 mg PO DAILY 90 Days #90 tab 04/22/23 Atorvastatin [Lipitor] 40 mg PO HS 90 Days #90 tab 04/22/23 Metoprolol Succinate (ER) [Toprol 25 mg PO DAILY 90 Days #90 tab 04/22/23 XL] Dapagliflozin Propanediol [Farxiga] 10 mg PO DAILY 90 Days #90 tab 08/06/23 Fluticasone Nasal [place] [Flonase 2 spray EA NOSTRIL BID 2 Days #1 ml 08/06/23 Nasal [place]] Formoterol Fumarate [Perforomist] 20 mcg INHALATION RT-BID 30 Days 08/06/23 #60 ml Furosemide [Lasix] 60 mg PO BID@0900,1600 30 Days #60 08/06/23 tab Gabapentin [Neurontin] 600 mg PO QID cap 08/06/23 INSULIN ASPART (NovoLOG) [NovoLOG 0 unit SQ ACHS each 08/06/23 (formulary)] Insulin Detemir (Levemir) [Levemir] 20 unit SQ HS 30 Days #300 each 08/06/23 Ipratropium-Albuterol Nebulize 3 ml INHALATION RT-TID PRN 90 Days 08/06/23 [Duoneb 0.5 mg-3 mg/3 ml Soln] #270 each Isosorbide Dinitrate [Isordil] 40 mg PO TID 30 Days #90 tab 08/06/23 Sacubitril/Valsartan [Entresto 24 1 each PO BID 30 Days #60 tab 08/06/23 mg-26 mg Tablet] hydrALAZINE HCL [Apresoline] 100 mg PO TID 30 Days #90 tab 08/06/23 hydrOXYzine HCL [Atarax] 25 mg PO Q8HR PRN 30 Days #90 tab 08/06/23 metOLazone [Zaroxolyn] 5 mg PO DAILY 30 Days #30 tab 08/06/23 predniSONE [Deltasone] 20 mg PO DAILY 30 Days #30 tab 08/06/23 Allergies Allergy/AdvReac Type Severity Reaction Status Date / Time Penicillins Allergy Unknown Verified 11/07/23 12:35 Childhood metformin AdvReac Mild Nausea Verified 11/07/23 12:35 Review of Systems ROS Statement: Those systems with pertinent positive or pertinent negative responses have been documented in the HPI. ROS Other: All systems not noted in ROS Statement are negative. Past Medical History Past Medical History: Coronary Artery Disease (CAD), Heart Failure, COPD, CVA/TIA, Diabetes Mellitus, Eye Disorder, Hyperlipidemia, Hypertension, Liver D isease, Myocardial Infarction (NC), Renal Disease Additional Past Medical History / Comment(s): Iischemic cardiomyopathy, PVCs, CVA 2019 with L sided weakness, chronic low back pain d/t vertebral fractures years ago as well as cervical pinched nerves, DDD, IDDM type II, neuropathy bilateral hands/legs and feet, pt states he can barely see with L eye and R eye vision is not very good/he is unsure why but believes it is d/t diabetes, liver disease/hepatitis C/ETOH abuse, recurrent ascities/paracentesis, recent R hip fracture d/t fall/recurrent falls. Last Myocardial Infarction Date:: October 2018 History of Any Multi-Drug Resistant Organisms: MRSA Date of last positivie culture/infection: 11/23/20 MDRO Source:: FOOT MRSA Past Surgical History: Cholecystectomy, Heart Catheterization, Heart Catheterization With Stent, Tonsillectomy Additional Past Surgical History / Comment(s): R heel I&D, colonoscopy. Past Anesthesia/Blood Transfusion Reactions: No Reported Reaction Date of Last Stent Placement:: 2011 Past Psychological History: Anxiety, Bipolar, Depression Smoking Status: Current every day smoker Past Alcohol Use History: None Reported Past Drug Use History: Marijuana - Past Family History Mother Family Medical History: Cancer Father Family Medical History: Coronary Artery Disease (CAD), Diabetes Mellitus, Hypertension General Exam - General Exam Comments Initial Comments: PHYSICAL EXAM: General Impression: Alert and oriented x3, n acute distress secondary to back pain HEENT: Normocephalic atraumatic, extra-ocular movements intact, pupils equal and reactive to light bilaterally, mucous membranes moist. Cardiovascular: Heart regular rate and rhythm Chest: Able to complete full sentences, no retractions, no tachypnea Abdomen: abdomen soft, non-tender, non-distended, no organomegaly Musculoskeletal: Pulses present and equal in all extremities, no peripheral edema Motor: no focal deficits noted Neurological: CN II-XII grossly intact, no focal motor or sensory deficits noted Skin: Intact with no visualized rashes Psych: Normal affect and mood Limitations: no limitations Course Vital Signs 11/07/23 11/07/23 11/07/23 12:25 12:31 13:00 Temperature 98.3 F 98.3 F Pulse Rate 91 91 87 Respiratory 22 20 18 Rate Blood Pressure 136/73 136/73 130/75 O2 Sat by Pulse 99 98 99 Oximetry 11/07/23 13:30 Temperature Pulse Rate 83 Respiratory 20 Rate Blood Pressure 141/81 O2 Sat by Pulse 98 Oximetry EKG Findings - EKG Comments: EKG Findings:: My EKG interpretation: Ventricular rate 85, sinus rhythm,. 140, cures 113, QTc 427. Compared to EKG from July 29, 2023 showing new T wave inversions in inferior, lateral precordial leads Medical Decision Making - Medical Decision Making Was pt. sent in by a medical professional or institution (, AMIE, DRUMS TEACHER, urgent care, hospital, or fci...) When possible be specific @ -No Did you speak to anyone other than the patient for history (EMS, parent, family, police, friend...)? What history was obtained from this source @ -No Did you review nursing and triage notes (agree or disagree)? Why? @ -I reviewed and agree with nursing and triage notes Were old charts reviewed (outside hosp., previous admission, EMS record, old EKG, old radiological studies, urgent care reports/EKG's, fci records)? Report findings @ -No old charts were reviewed Differential Diagnosis (chest pain, altered mental status, abdominal pain women, abdominal pain men, vaginal bleeding, musculoskeletal, weakness, fever, dyspnea, syncope, headache, dizziness, GI bleed, back pain, seizure, CVA, palpatations, mental health)? @ -Differential Dyspnea: Coronary syndrome, arrhythmia, tamponade, asthma, COPD, pulmonary embolism, pneumonia, pneumothorax, pulmonary effusion, anaphylaxis, diabetic ketoacidosis, flailed chest, pulmonary contusion, diaphragmatic rupture, anemia, neuromuscular, this is not meant to be an all-inclusive list. EKG interpreted by me (3pts min.). @ -None done X-rays interpreted by me (1pt min.). @ -Chest x-ray shows heart failure CT interpreted by me (1pt min.). @ -None done U/S interpreted by me (1pt. min.). @ -None done What testing was considered but not performed or refused? (CT, X-rays, U/S, labs)? Why? @ -None What meds were considered but not given or refused? Why? @ -None Did you discuss the management of the patient with other professionals (professionals i.e. , AMIE, DRUMS TEACHER, lab, RT, psych nurse, social studies teacher, car rental sales assistant, teacher, risk control officer, lining caser)? Give summary @ -Case discussed with hospitalist for admission Was smoking cessation discussed for >3mins.? @ -No Was critical care preformed (if so, how long)? @ -No Were there social determinants of health that impacted care today? How? (Homelessness, low income, unemployed, alcoholism, drug addiction, transportation, low edu. Level, literacy, decrease access to med. care, residential, rehab)? @ -No Was there de-escalation of care discussed even if they declined (Discuss DNR or withdrawal of care, Hospice)? DNR status @ -No What co-morbidities impacted this encounter? (DM, HTN, Smoking, COPD, CAD, Can cer, CVA, ARF, Chemo, Hep., AIDS, mental health diagnosis, sleep apnea, morbid obesity)? @ -None Was patient admitted / discharged? Hospital course, mention meds given and route, prescriptions, significant lab abnormalities, going to OR and other pertinent info. @ -63-year-old male presents emergency department dyspnea. Patient has multiple comorbidities including heart failure, COPD. Continues to smoke. Vital signs upon arrival are within acceptable limits. Patient wears home O2 at 4 L nasal cannula. Laboratory evaluation obtained. CBC, coag panel metabolic panel within acceptable limits. Troponin is elevated 0.052 patient has history of elevated troponin. Brain nitric peptide is 28,300. This is slightly above his usual limits. Chest x-ray supports a diagnosis of heart failure. Patient given Lasix. Patient be admitted observation consultation to cardiology. Patient will be gently diuresed. Undiagnosed new problem with uncertain prognosis? @ -No Drug Therapy requiring intensive monitoring for toxicity (Heparin, Nitro, Insulin, Cardizem)? @ -No Were any procedures done? @ -No Diagnosis/symptom? Acute, or Chronic, or Acute on Chronic? Uncomplicated (without systemic symptoms) or Complicated (systemic symptoms)? @ -Heart failure complicated by respiratory failure Side effects of treatment? @ -No Exacerbation, Progression, or Severe Exacerbation? @ -No Poses a threat to life or bodily function? How? (Chest pain, USA, NC, pneumonia, PE, COPD, DKA, ARF, appy, cholecystitis, CVA, Diverticulitis, Homicidal, Suicidal, threat to staff... and all critical care pts) @ -yes - Lab Data Result diagrams: 11/07/23 12:43 11/07/23 12:43 Lab Results 11/07/23 11/07/23 11/07/23 Range/Units 12:43 12:43 12:43 WBC 7.0 (3.8-10.6) k/uL RBC 4.43 (4.30-5.90) m/uL Hgb 13.4 (13.0-17.5) gm/dL Hct 41.0 (39.0-53.0) % MCV 92.5 (80.0-100.0) fL MCH 30.1 (25.0-35.0) pg MCHC 32.6 (31.0-37.0) g/dL RDW 14.1 (11.5-15.5) % Plt Count 163 (150-450) k/uL MPV 9.0 Neutrophils % 87 % Lymphocytes % 7 % Monocytes % 4 % Eosinophils % 1 % Basophils % 1 % Neutrophils # 6.0 (1.3-7.7) k/uL Lymphocytes # 0.5 L (1.0-4.8) k/uL Monocytes # 0.3 (0-1.0) k/uL Eosinophils # 0.1 (0-0.7) k/uL Basophils # 0.0 (0-0.2) k/uL PT 11.3 (10.0-12.5) sec INR 1.0 (<1.2) APTT 26.8 (22.0-30.0) sec Sodium 134 L (137-145) mmol/L Potassium 4.6 (3.5-5.1) mmol/L Chloride 107 (98-107) mmol/L Carbon Dioxide 22 (22-30) mmol/L Anion Gap 5 mmol/L BUN 26 H (9-20) mg/dL Creatinine 1.16 (0.66-1.25) mg/dL Est GFR (CKD-EPI)AfAm 77 (>60 ml/min/1.73 sqM) Est GFR (CKD-EPI)NonAf 67 (>60 ml/min/1.73 sqM) Glucose 205 H (74-99) mg/dL Calcium 8.6 (8.4-10.2) mg/dL Total Bilirubin 1.0 (0.2-1.3) mg/dL AST 43 (17-59) U/L ALT 43 (4-49) U/L Alkaline Phosphatase 148 H (38-126) U/L Troponin I (0.000-0.034) ng/mL NT-Pro-B Natriuret Pep 46932 pg/mL Total Protein 5.7 L (6.3-8.2) g/dL Albumin 2.9 L (3.5-5.0) g/dL 11/07/23 Range/Units 12:43 WBC (3.8-10.6) k/uL RBC (4.30-5.90) m/uL Hgb (13.0-17.5) gm/dL Hct (39.0-53.0) % MCV (80.0-100.0) fL MCH (25.0-35.0) pg MCHC (31.0-37.0) g/dL RDW (11.5-15.5) % Plt Count (150-450) k/uL MPV Neutrophils % % Lymphocytes % % Monocytes % % Eosinophils % % Basophils % % Neutrophils # (1.3-7.7) k/uL Lymphocytes # (1.0-4.8) k/uL Monocytes # (0-1.0) k/uL Eosinophils # (0-0.7) k/uL Basophils # (0-0.2) k/uL PT (10.0-12.5) sec INR (<1.2) APTT (22.0-30.0) sec Sodium (137-145) mmol/L Potassium (3.5-5.1) mmol/L Chloride (98-107) mmol/L Carbon Dioxide (22-30) mmol/L Anion Gap mmol/L BUN (9-20) mg/dL Creatinine (0.66-1.25) mg/dL Est GFR (CKD-EPI)AfAm (>60 ml/min/1.73 sqM) Est GFR (CKD-EPI)NonAf (>60 ml/min/1.73 sqM) Glucose (74-99) mg/dL Calcium (8.4-10.2) mg/dL Total Bilirubin (0.2-1.3) mg/dL AST (17-59) U/L ALT (4-49) U/L Alkaline Phosphatase (38-126) U/L Troponin I 0.052 H* (0.000-0.034) ng/mL NT-Pro-B Natriuret Pep pg/mL Total Protein (6.3-8.2) g/dL Albumin (3.5-5.0) g/dL Disposition Clinical Impression: Heart failure Disposition: ADMITTED IP TO THIS HOSP Condition: Fair Referrals: Eric Loyola MD [Primary Care Provider] - 1-2 days Decision Time: 13:52
[2023-11-07 13:06] LABS: Basophils % (A) 1 %; Eosinophils # (A) 0.1 k/uL (0-0.7); Eosinophils % (A) 1 %; HGB 13.4 gm/dL (13.0-17.5); Lymphocytes # (A) 0.5 k/uL (1.0-4.8); Lymphocytes % (A) 7 %; MCH 30.1 pg (25.0-35.0); MCHC 32.6 g/dL (31.0-37.0); MCV 92.5 fL (80.0-100.0); Monocytes # (A) 0.3 k/uL (0-1.0); Monocytes % (A) 4 %; Neutrophils % (A) 87 %; Platelet Count 163 k/uL (150-450); RBC 4.43 m/uL (4.30-5.90); RDW 14.1 % (11.5-15.5)
[2023-11-07 13:11] LABS: Partial Thromboplastin Time 26.8 sec (22.0-30.0); Prothrombin Time 11.3 sec (10.0-12.5)
[2023-11-07 13:24] LABS: ALT 43 U/L (4-49); AST 43 U/L (17-59); African American GFR (CKD) 77 (>60 ml/min/1.73 sqM); Albumin 2.9 g/dL (3.5-5.0); Alkaline Phosphatase 148 U/L (38-126); Anion Gap 5 mmol/L; Blood Urea Nitrogen 26 mg/dL (9-20); Calcium 8.6 mg/dL (8.4-10.2); Carbon Dioxide 22 mmol/L (22-30); Chloride 107 mmol/L (98-107); Glucose 205 mg/dL (74-99); Non-African American GFR(CKD) 67 (>60 ml/min/1.73 sqM); Potassium 4.6 mmol/L (3.5-5.1); Sodium 134 mmol/L (137-145); Total Protein 5.7 g/dL (6.3-8.2)
[2023-11-07 13:31] LABS: NT-Pro-B-Type Natriuretic Pept 28300 pg/mL
--- NOTE | 2023-11-07 13:34 | XR ---
EXAMINATION TYPE: XR chest 2V DATE OF EXAM: 11/07/2023 COMPARISON: 07/24/2023 TECHNIQUE: PA and lateral views submitted. HISTORY: Difficulty breathing FINDINGS: Bilateral consolidation and small effusions. The heart size is normal. Diffuse osteopenia with arthro patel of the shoulders. Degenerative change of the spine. No pneumothorax. Osseous structures demonst rate hypertrophic and degenerative changes of the spine. IMPRESSION: 1. Bilateral small pleural effusion superimposed on a background COPD. Correlate for mild venous dari estion.
[2023-11-07] MEDS: FUROSEMIDE 10 MG/ML 4 ML VIAL IV STA (13:46)
[2023-11-07] MEDS: MORPHINE SULFATE 4 MG/ML SYRINGE IV STA (13:50)
[2023-11-07] MEDS: GABAPENTIN 300 MG CAP PO SCH (16:47)
[2023-11-07] MEDS: hydrALAZINE HCL 50 MG TAB PO SCH (19:18)
[2023-11-07] MEDS: oxyCODONE-APAP 7.5-325MG 1 EACH TAB PO PRN (19:28)
[2023-11-07 21:03] LABS: Glucose,Whole Blood 399 mg/dL (70-110)
[2023-11-07 21:03] LABS: Glucose,Whole Blood 411 mg/dL (70-110)
[2023-11-07] MEDS: IPRATROPIUM-ALBUTEROL 3 ML NEB INHALATION SCH (21:13)
[2023-11-07] MEDS ORDERED: DEXTROSE 50% SYRINGE 50 ML IVP PRN (21:55)
[2023-11-07] MEDS: PANTOPRAZOLE 40 MG TABLET PO SCH (22:06)
[2023-11-07] MEDS: FUROSEMIDE 10 MG/ML 4 ML VIAL IV SCH (22:06)
[2023-11-07] MEDS: ATORVASTATIN 40 MG TAB PO SCH (22:06)
[2023-11-07] MEDS: INSULIN ASPART (NovoLOG) 100 UNIT/ML VIAL SQ SCH (22:26)
[2023-11-07] MEDS: HYDROmorphone 1 MG/ML 1 ML SYRINGE IVP PRN (23:46)
[2023-11-07] MEDS: SACUBITRIL/VALSARTAN 24 MG-26 MG TABLET PO SCH (23:49)
--- NOTE | 2023-11-08 01:56 | CT ---
EXAMINATION TYPE: CT chest wo con CT DLP: 322.7 mGycm, Automated exposure control for dose reduction was used. DATE OF EXAM: 11/07/2023 7:51 PM COMPARISON: CT 07/22/2023 . CLINICAL INDICATION:Male, 63 years old with history of effusion; PHH, STANLEY TECHNIQUE: Multiple axial images were obtained through the chest. Sagittal and coronal reformats were created for review. Contrast used: mL of (None if empty) Oral contrast used: (None if empty) FINDINGS: LUNGS/ PLEURA: Small to moderate bilateral pleural effusions, not significantly changed in size. No p neumothorax. There was an opacity along the lateral aspect of the left lung previously which has considerably dimi nished, most likely a combination of pleural fluid and atelectasis. In the aerated lungs bilaterally, there is a stable small patch of reticular nodular opacity in the a nterior right lung image 46. Scattered subcentimeter groundglass nodular opacities in both lungs appe ar unchanged. AIRWAY: Central airways are patent. LOWER NECK: No significant findings. MEDIASTINUM: No enlarged nodes by CT size criteria. HEART: Mild cardiomegaly. Moderate to severe coronary artery calcification and/or stents. Trace peric ardial effusion. VASCULATURE: Moderate to severe atherosclerotic calcifications of the aorta and branches. Ascending aorta is 3.3 CM, descending is 2.6 CM. Pulmonary trunk measures 2.7 CM. Pulmonary trunk is normal in size. Vessels otherwise not further ass essed without contrast. SOFT TISSUES/LYMPH NODES: Moderate gynecomastia like changes bilaterally. No enlarged axillary nodes. UPPER ABDOMEN: No significant findings. MUSCULOSKELETAL: No acute osseous abnormalities . Again seen are degenerative changes of the dorsal s pine with a couple levels showing Schmorl's nodes and mild height loss. IMPRESSION: 1. Small to moderate bilateral pleural effusions with adjacent compressive atelectasis, without signi ficant interval change. 2. Unchanged scattered nodular foci of groundglass attenuation throughout both lungs. Likely infectio us/inflammatory, however follow-up to document at least 2 years of stability is advised to help exclu de malignancy. 3. Previously seen opacity along the lateral aspect of the left lung has considerably diminished, mos t likely a combination of pleural fluid and atelectasis.
[2023-11-08 06:29] LABS: Glucose,Whole Blood 263 mg/dL (70-110)
[2023-11-08] MEDS: SPIRONOLACTONE 25 MG TAB PO SCH (08:54)
[2023-11-08] MEDS: DAPAGLIFLOZIN PROPANEDIOL 10 MG TABLET PO SCH (08:55)
[2023-11-08] MEDS: METOPROLOL SUCCINATE (ER) 25 MG TAB.ER.24H PO SCH (08:55)
[2023-11-08] MEDS: ASPIRIN 81 MG PO SCH (08:55)
[2023-11-08 11:42] LABS: Glucose,Whole Blood 327 mg/dL (70-110)
[2023-11-08] MEDS: metOLazone 5 MG TAB PO SCH (12:08)
[2023-11-08] MEDS: ISOSORBIDE DINITRATE 20 MG TAB PO SCH (12:08)
[2023-11-08] MEDS ORDERED: DEXTROSE 50% SYRINGE 50 ML IVP PRN ×2 (12:33)
[2023-11-08 12:35] VITALS: BMI 21.5
[2023-11-08] MEDS: INSULIN ASPART (NovoLOG) 100 UNIT/ML VIAL SQ SCH (12:55)
--- NOTE | 2023-11-08 15:57 | P.CRDCN ---
History of Present Illness Consult date: 11/08/23 Consult reason: congestive heart failure History of present illness: HISTORY OF PRESENT ILLNESS: This is a 63-year-old male with a past medical history significant for coronary artery disease with previous stenting, ischemic cardiomyopathy, hypertension, hyperlipidemia, nicotine dependence, former alcohol abuse, chronic hypoxic respiratory failure on home O2 at 4 L. Patient has not followed in the office since 2015, however at that time he saw Dr. Soni. We have been asked to see the patient in consultation for CHF. Patient presented to the hospital with a chief complaint of shortness of breath and also BKS that he had numbness on the left side of his body. It changed from numbness to pain in the back to numbness. He denies having any chest pain. Patient has been retaining fluid and has had about a 4 to 5 pound weight gain recently. He states he has lightheadedness and dizziness with standing all the time. He has had no recent paracentesis. He states he has been taking all of his medications as directed. He states that he is breathing is better today. He has been urinating significantly. Patient was placed on Lasix 40 mg every 12 hours by IV. EKG reveals sinus mechanism with T wave inversions in inferior leads and V5V6, similar to previous EKG Chest xray: Bilateral small pleural effusions superimposed on the background of COPD. Correlate for mild venous congestion. CT of the chest revealed small to moderate bilateral pleural effusions with adjacent compressive atelectasis without significant interval change. Unchanged groundglass attenuation throughout both lungs. Previously seen opacity on the lateral aspect of the left lung diminished. Laboratory studies: CBC unremarkable. INR 1. Sodium 134, potassium 4.6, BUN 26 and creatinine 1.16. Glucose 205. Alkaline phosphatase 148. Troponin 0.052. proBNP 28,300 with repeat of 15,600. Current home cardiac medications: Aspirin 81 mg daily, atorvastatin 40 mg at bedtime, Farxiga 10 mg daily, Lasix 60 mg twice daily, hydralazine 100 mg 3 times daily, Imdur 20 mg daily, metolazone 5 mg daily, Toprol-XL 25 mg daily, Entresto 24 mg - 26 mg 1 tablet twice daily, spironolactone 25 mg daily. Most recent echocardiogram obtained in March 2023 revealed ejection fraction 20 to 25%, mild to moderate TR, trace MR, and calcified aortic valve without significant stenosis Cardiac catheterization history: January 2016 revealing intermediate in-stent restenosis of the RCA, mild to moderate nonobstructive coronary artery disease involving the left coronary system, normal left ventricular systolic function. REVIEW OF SYSTEMS: At the time of my exam: CONSTITUTIONAL: Denies fever or chills. HEENT: Denies blurred vision, vision changes, or eye pain. Denies hemoptysis CARDIOVASCULAR: Denies chest pain. Reports orthopnea. Reports PND. Denies palpitations RESPIRATORY: Reports shortness of breath. Reports dyspnea on exertion. GASTROINTESTINAL: Denies abdominal pain. Denies nausea or vomiting. Reports abdominal bloating HEMATOLOGIC: Denies bleeding disorders. GENITOURINARY: Denies any blood in urine. SKIN: Denies pruitis. Denies rash. PHYSICAL EXAM: VITAL SIGNS: Reviewed. Blood pressure 118/72, heart rate 73, pulse ox 95% on O2 at 4 L nasal cannula GENERAL: Well-developed in no acute distress. HEENT: Head is normocephalic. Pupils are equal, round. Sclerae anicteric. Mucous membranes of the mouth are moist. Neck supple. No JVD or thyromegaly LUNGS: Respirations even and unlabored. Lungs diminished at the bases with bibasilar crackles HEART: Regular rate and rhythm. S1 and S2 heard. Soft systolic murmur noted. ABDOMEN: Soft no significant ascites EXTREMITIES: Normal range of motion. No clubbing or cyanosis. Peripheral pulses intact. 2+ bilateral pitting lower extremity edema NEUROLOGIC: Awake and alert. Oriented x 3. ASSESSMENT: Acute on chronic heart failure with reduced ejection fraction, 25%, proBNP 25,700 Elevated troponin, suspect secondary to type II ND secondary to oxygen supply demand mismatch Coronary artery disease with previous stenting of the RCA Mild to moderate nonobstructive CAD involving left coronary system Ischemic cardiomyopathy Chronic kidney disease Chronic hypoxic respiratory failure on home O2, 20/01 History of COPD Hypertension Hyperlipidemia Former nicotine dependence, patient quit smoking 2 to 3 months ago Former alcohol abuse, patient states he has not drank in 30 years History of medication noncompliance PLAN: No need to repeat echocardiogram Continue IV Lasix 40 mg every 12 hours Daily weights, accurate I&O, and monitoring of kidney function Further recommendations pending patient course Nurse practitioner note has been reviewed by physician. Signing provider agrees with the documented findings, assessment, and plan of care. Past Medical History Past Medical History: Coronary Artery Disease (CAD), Heart Failure, COPD, CVA/TIA, Diabetes Mellitus, Eye Disorder, Hyperlipidemia, Hypertension, Liver Disease, Myocardial Infarction (ND), Renal Disease Additional Past Medical History / Comment(s): Iischemic cardiomyopathy, PVCs, CVA 2019 with L sided weakness, chronic low back pain d/t vertebral fractures y ears ago as well as cervical pinched nerves, DDD, IDDM type II, neuropathy bilateral hands/legs and feet, pt states he can barely see with L eye and R eye vision is not very good/he is unsure why but believes it is d/t diabetes, liver disease/hepatitis C/ETOH abuse, recurrent ascities/paracentesis, recent R hip fracture d/t fall/recurrent falls. Last Myocardial Infarction Date:: October 2018 History of Any Multi-Drug Resistant Organisms: MRSA Date of last positivie culture/infection: 11/23/20 MDRO Source:: FOOT MRSA Past Surgical History: Cholecystectomy, Heart Catheterization, Heart Catheterization With Stent, Tonsillectomy Additional Past Surgical History / Comment(s): R heel I&D, colonoscopy. Past Anesthesia/Blood Transfusion Reactions: No Reported Reaction Date of Last Stent Placement:: 2011 Past Psychological History: Anxiety, Bipolar, Depression Additional Psychological History / Comment(s): Pt states he lives with his brother. Pt ambulates with a walker. He uses rides thru insurance. Case management/social workers are involved in pt's care Smoking Status: Current every day smoker Past Alcohol Use History: None Reported Additional Past Alcohol Use History / Comment(s): Pt started smoking in 1976. Pt states he has hx of heavy alcohol use but states none for years Past Drug Use History: Marijuana Additional Drug Use History / Comment(s): Marijuana occasionally. pt stated he had ICE on 02/24/2020 - Past Family History Mother Family Medical History: Cancer Father Family Medical History: Coronary Artery Disease (CAD), Diabetes Mellitus, Hypertension Medications and Allergies Home Medications Medication Instructions Recorded Confirmed Type Aspirin 81 mg PO DAILY 90 Days #90 tab 04/22/23 11/07/23 Rx Atorvastatin [Lipitor] 40 mg PO HS 90 Days #90 tab 04/22/23 11/07/23 Rx Metoprolol Succinate (ER) [Toprol 25 mg PO DAILY 90 Days #90 tab 04/22/23 11/07/23 Rx XL] Dapagliflozin Propanediol [Farxiga] 10 mg PO DAILY 90 Days #90 tab 08/06/23 11/07/23 Rx Furosemide [Lasix] 60 mg PO BID@0900,1600 30 Days #60 08/06/23 11/07/23 Rx tab hydrALAZINE HCL [Apresoline] 100 mg PO TID 30 Days #90 tab 08/06/23 11/07/23 Rx hydrOXYzine HCL [Atarax] 25 mg PO Q8HR PRN 30 Days #90 tab 08/06/23 11/07/23 Rx metOLazone [Zaroxolyn] 5 mg PO DAILY 30 Days #30 tab 08/06/23 11/07/23 Rx predniSONE [Deltasone] 20 mg PO DAILY 30 Days #30 tab 08/06/23 11/07/23 Rx Gabapentin 600 mg PO TID 11/07/23 11/07/23 History Isosorbide Dinitrate [Isordil] 20 mg PO DAILY 11/07/23 11/07/23 History Pantoprazole Sodium [Protonix] 40 mg PO BID 11/07/23 11/07/23 History Sacubitril/Valsartan [Entresto 24 1 tab PO BID 11/07/23 11/07/23 History mg-26 mg Tablet] Spironolactone 25 mg PO DAILY 11/07/23 11/07/23 History Allergies Allergy/AdvReac Type Severity Reaction Status Date / Time Penicillins Allergy Unknown Verified 11/07/23 14:54 Childhood metformin AdvReac Mild Nausea & Verified 11/07/23 14:54 Vomiting & Diarrhea Physical Exam Vitals: Vital Signs Temp Pulse Pulse Resp BP BP Pulse Ox 11/08/23 12:00 16 118/72 95 11/08/23 11:35 76 11/08/23 11:27 74 11/08/23 08:02 75 11/08/23 08:00 98.1 F 76 16 112/67 98 11/08/23 07:52 72 11/08/23 04:00 97.9 F 65 17 116/67 99 11/07/23 23:19 74 17 116/67 96 11/07/23 21:46 97.9 F 74 19 126/75 97 11/07/23 21:25 72 05/10/24 21:14 74 11/07/23 19:00 76 20 155/86 97 11/07/23 18:00 78 18 117/73 97 11/07/23 16:45 78 20 124/76 99 11/07/23 13:30 83 20 141/81 98 Intake and Output 11/07/23 11/08/23 11/08/23 22:59 06:59 14:59 Intake Total 118 500 480 Output Total 200 Balance 118 300 480 Intake: Oral 118 500 480 Output: Urine 200 Other: Voiding Method Toilet Toilet Urinal Urinal # Voids 1 Weight 68.039 kg 68.1 kg 68.1 kg Results 11/07/23 12:43 11/07/23 12:43 Cardiac Enzymes 11/07/23 11/07/23 Range/Units 12:43 12:43 AST 43 (17-59) U/L Troponin I 0.052 H* (0.000-0.034) ng/mL Coagulation 11/07/23 Range/Units 12:43 PT 11.3 (10.0-12.5) sec APTT 26.8 (22.0-30.0) sec Comprehensive Metabolic Panel 11/07/23 Range/Units 12:43 Sodium 134 L (137-145) mmol/L Potassium 4.6 (3.5-5.1) mmol/L Chloride 107 (98-107) mmol/L Carbon Dioxide 22 (22-30) mmol/L BUN 26 H (9-20) mg/dL Creatinine 1.16 (0.66-1.25) mg/dL Glucose 205 H (74-99) mg/dL Calcium 8.6 (8.4-10.2) mg/dL AST 43 (17-59) U/L ALT 43 (4-49) U/L Alkaline Phosphatase 148 H (38-126) U/L Total Protein 5.7 L (6.3-8.2) g/dL Albumin 2.9 L (3.5-5.0) g/dL Current Medications Generic Name Dose Route Start Last Admin Trade Name Freq PRN Reason Stop Dose Admin Albuterol/Ipratropium 3 ml 11/07/23 20:00 11/08/23 11:27 Ipratropium-Albuterol 3 Ml Neb INHALATION 3 ml RT-QID MIRLANDE Administration Aspirin 81 mg 11/08/23 09:00 11/08/23 08:55 Aspirin 81 Mg PO 81 mg DAILY MIRLANDE Administration Atorvastatin Calcium 40 mg 11/07/23 21:00 11/07/23 22:06 Atorvastatin 40 Mg Tab PO 40 mg HS MIRLANDE Administration Dapagliflozin 10 mg 11/08/23 09:00 11/08/23 08:55 Dapagliflozin Propanediol 10 Mg Tablet PO 10 mg DAILY MIRLANDE Administration Dextrose/Water 25 ml 11/08/23 12:33 Dextrose 50% Syringe 50 Ml IVP PER PROTOCOL PRN Hypoglycemia Protocol Dextrose/Water 50 ml 11/08/23 12:33 Dextrose 50% Syringe 50 Ml IVP PER PROTOCOL PRN Hypoglycemia Protocol Furosemide 40 mg 11/07/23 21:00 11/08/23 08:58 Furosemide 10 Mg/Ml 4 Ml Vial IV 40 mg Q12HR MIRLANDE Administration Gabapentin 600 mg 11/07/23 16:00 11/08/23 08:54 Gabapentin 300 Mg Cap PO 600 mg TID MIRLANDE Administration Hydralazine HCl 100 mg 11/07/23 16:00 11/08/23 08:55 Hydralazine Hcl 50 Mg Tab PO 100 mg TID MIRLANDE Administration Hydromorphone HCl 1 mg 11/07/23 22:32 11/08/23 12:07 Hydromorphone 1 Mg/Ml 1 Ml Syringe IVP 1 mg Q4HR PRN Administration Moderate to Severe Pain (4-10) Hydroxyzine HCl 25 mg 11/07/23 15:16 Hydroxyzine Hcl 25 Mg Tab PO Q8HR PRN Itching Insulin Aspart 0 unit 11/08/23 13:00 11/08/23 12:55 Insulin Aspart (Novolog) 100 Unit/Ml Vial SQ 4 unit ACHS MIRLANDE Administration Protocol Isosorbide Dinitrate 20 mg 11/08/23 09:00 11/08/23 12:08 Isosorbide Dinitrate 20 Mg Tab PO 20 mg DAILY MIRLANDE Administration Metolazone 5 mg 11/08/23 09:00 11/08/23 12:08 Metolazone 5 Mg Tab PO 5 mg DAILY MIRLANDE Administration Metoprolol Succinate 25 mg 11/08/23 09:00 11/08/23 08:55 Metoprolol Succinate (Er) 25 Mg Tab.Er.24h PO 25 mg DAILY MIRLANDE Administration Oxycodone/Acetaminophen 1 each 11/07/23 19:18 11/08/23 08:55 Oxycodone-Apap 7.5-325mg 1 Each Tab PO 1 each Q6HR PRN Administration Pain Pantoprazole Sodium 40 mg 11/07/23 21:00 11/08/23 08:54 Pantoprazole 40 Mg Tablet PO 40 mg BID MIRLANDE Administration Sacubitril/Valsartan 1 each 11/07/23 21:00 11/08/23 12:55 Sacubitril/Valsartan 24 Mg-26 Mg Tablet PO 1 each BID MIRLANDE Administration Spironolactone 25 mg 11/08/23 09:00 11/08/23 08:54 Spironolactone 25 Mg Tab PO 25 mg DAILY MIRLANDE Administration Intake and Output 11/07/23 11/08/23 11/08/23 22:59 06:59 14:59 Intake Total 118 500 480 Output Total 200 Balance 118 300 480 Intake: Oral 118 500 480 Output: Urine 200 Other: Voiding Method Toilet Toilet Urinal Urinal # Voids 1 Weight 68.039 kg 68.1 kg 68.1 kg Patient Weight 11/09/23 06:59 Weight 68.1 kg 11/07/23 12:43 11/07/23 12:43
[2023-11-08 16:12] LABS: Glucose,Whole Blood 124 mg/dL (70-110)
[2023-11-08] MEDS: ONDANSETRON 4 MG/2 ML VIAL IVP PRN (18:13)
[2023-11-08 20:14] LABS: Glucose,Whole Blood 220 mg/dL (70-110)
[2023-11-08] MEDS ORDERED: INSULIN ASPART (NovoLOG) 100 UNIT/ML VIAL SQ SCH (22:00)
--- NOTE | 2023-11-09 01:11 | HP ---
HISTORY AND PHYSICAL HISTORY OF PRESENT ILLNESS: Jacobo Hall came in with respiratory distress, acute on chronic CHF. Cardiology has been consulted. I believe, he missed all of his medicines at home and he is currently noncompliant. shows bilateral pleural effusions, opacity in the lateral aspect of the left lung; previously, this was considered diminished; possible pleural fluid, atelectasis, stable patchy reticulonodular densities, ground glass appearance. Continue with CAT scan every 2 years to make sure he has no cancer. He came in with congestive heart failure and was started on IV diuresis. Home medications have been reordered. Sugars have been high. I have started him on IV steroids. He continues to smoke. HOME MEDICATIONS: See list. ALLERGIES: See list. PAST MEDICAL HISTORY: Coronary artery disease, heart failure, CVA, TIA, diabetes mellitus, , hypertension, dyslipidemia, myocardial infarction, renal disease, history of liver disease, alcohol abuse, recurrent ascites with paracentesis, recent right hip fracture, recurrent falls, ischemic cardiomyopathy in 2019 with left-sided weakness. PAST SURGICAL HISTORY: Cholecystectomy, heart catheterization with stent, tonsillectomy, anxiety, bipolar, depression, SOCIAL HISTORY: Current everyday smoker of marijuana. FAMILY HISTORY: Mother with cancer. Father with diabetes mellitus, coronary artery disease, hypertension. PHYSICAL EXAMINATION: VITAL SIGNS: Temperature 98.3, pulse 91, respiratory rate 18 to 22, blood pressure in the 130s to 136 over 70s, O2 99. LUNGS: Transmitted upper airway sounds. CARDIOVASCULAR: S1 and S2. HEMATOLOGY: Negative Homans. PSYCH: Fair mood and affect. NEUROLOGIC: Alert and oriented x3. EXTREMITIES: He has 2 to 3+ edema in the lower legs. SKIN: He has excoriations from itching. EKG shows sinus rhythm. DATA: White count 7, hemoglobin is 13.4. Sodium 134, BUN is 26, creatinine 1.16. ASSESSMENT: Acute on chronic heart failure with elevated BNP over 10,000; elevated troponin. Cardiology has been consulted. We will give him diuresis, breathing treatments with his home medications. Treat his chronic obstructive pulmonary disease. Prognosis is guarded. Please see further orders. MMODL / IJN: [id number] /
[2023-11-09 06:08] LABS: Glucose,Whole Blood 241 mg/dL (70-110)
--- NOTE | 2023-11-09 10:11 | PN ---
PROGRESS NOTE SUBJECTIVE: 63-year-old white male came with CHF, COPD. He is much better since he came in. He says he is breathing much better. His most recent echo shows 20-25% ejection fraction. OBJECTIVE: VITAL SIGNS: Blood pressure 118/72, O2 95, heart rate 73, 4 L nasal cannula. HEENT: Normocephalic, atraumatic. ABDOMEN: Soft. EXTREMITIES: 1 to 2+ edema. GENERAL: Alert and oriented x3. LUNGS: Decreased breath sounds. Scattered wheeze and rhonchi. CARDIOVASCULAR: S1, S2. ProBNP 11400. Ejection fraction 25% on secondary echo in the past, type 2 DC secondary to oxygen supply demand, coronary artery disease, previous stent in the RCA, mild to moderate nonobstructive coronary disease, ischemic cardiomyopathy, chronic kidney disease, chronic hypoxemic respiratory failure, COPD, hypertension, dyslipidemia, nicotine addiction, alcohol abuse. Did get him on Lasix IV 40 q.12, updrafts, breathing treatments, steroids for breathing. Prognosis guarded. Continue current treatment. MMODL / IJN: [id number] /
[2023-11-09 10:19] LABS: Basophils # (A) 0.1 k/uL (0-0.2); Basophils % (A) 1 %; Eosinophils # (A) 0.2 k/uL (0-0.7); Eosinophils % (A) 3 %; HCT 37.5 % (39.0-53.0); HGB 11.8 gm/dL (13.0-17.5); Lymphocytes % (A) 13 %; MCH 29.4 pg (25.0-35.0); MCHC 31.5 g/dL (31.0-37.0); MCV 93.2 fL (80.0-100.0); Mean Platelet Volume 9.8; Monocytes # (A) 0.6 k/uL (0-1.0); Monocytes % (A) 9 %; Neutrophils # (A) 5.2 k/uL (1.3-7.7); Neutrophils % (A) 72 %; Platelet Count 169 k/uL (150-450); RBC 4.03 m/uL (4.30-5.90); RDW 14.1 % (11.5-15.5); WBC 7.2 k/uL (3.8-10.6)
[2023-11-09 10:32] LABS: ALT 32 U/L (4-49); AST 33 U/L (17-59); African American GFR (CKD) 38 (>60 ml/min/1.73 sqM); Albumin 2.6 g/dL (3.5-5.0); Alkaline Phosphatase 114 U/L (38-126); Anion Gap 6 mmol/L; Blood Urea Nitrogen 58 mg/dL (9-20); Calcium 7.7 mg/dL (8.4-10.2); Carbon Dioxide 24 mmol/L (22-30); Chloride 97 mmol/L (98-107); Glucose 193 mg/dL (74-99); Non-African American GFR(CKD) 33 (>60 ml/min/1.73 sqM); Potassium 4.9 mmol/L (3.5-5.1); Sodium 127 mmol/L (137-145); Total Bilirubin 0.4 mg/dL (0.2-1.3); Total Protein 5.1 g/dL (6.3-8.2)
[2023-11-09 11:37] LABS: Glucose,Whole Blood 333 mg/dL (70-110)
[2023-11-09] MEDS: HYDROmorphone 0.5 MG/0.5 ML SYRINGE IVP PRN (12:10)
--- NOTE | 2023-11-09 12:15 | P.PN ---
Subjective Progress Note Date: 11/09/23 Consult reason: congestive heart failure History of present illness: HISTORY OF PRESENT ILLNESS: This is a 63-year-old male with a past medical history significant for coronary artery disease with previous stenting, ischemic cardiomyopathy, hypertension, hyperlipidemia, nicotine dependence, former alcohol abuse, chronic hypoxic respiratory failure on home O2 at 4 L. Patient has not followed in the office since 2015, however at that time he saw Dr. Soni. We have been asked to see the patient in consultation for CHF. Patient presented to the hospital with a chief complaint of shortness of breath and also BKS that he had numbness on the left side of his body. It changed from numbness to pain in the back to numbness. He denies having any chest pain. Patient has been retaining fluid and has had about a 4 to 5 pound weight gain recently. He states he has lightheadedness and dizziness with standing all the time. He has had no recent paracentesis. He states he has been taking all of his medications as directed. He states that he is breathing is better today. He has been urinating significantly. Patient was placed on Lasix 40 mg every 12 hours by IV. EKG reveals sinus mechanism with T wave inversions in inferior leads and V5V6, similar to previous EKG Chest xray: Bilateral small pleural effusions superimposed on the background of COPD. Correlate for mild venous congestion. CT of the chest revealed small to moderate bilateral pleural effusions with adjacent compressive atelectasis without significant interval change. Unchanged groundglass attenuation throughout both lungs. Previously seen opacity on the lateral aspect of the left lung diminished. Laboratory studies: CBC unremarkable. INR 1. Sodium 134, potassium 4.6, BUN 26 and creatinine 1.16. Glucose 205. Alkaline phosphatase 148. Troponin 0.052. proBNP 28,300 with repeat of 15,600. Current home cardiac medications: Aspirin 81 mg daily, atorvastatin 40 mg at bedtime, Farxiga 10 mg daily, Lasix 60 mg twice daily, hydralazine 100 mg 3 times daily, Imdur 20 mg daily, metolazone 5 mg daily, Toprol-XL 25 mg daily, Entresto 24 mg - 26 mg 1 tablet twice daily, spironolactone 25 mg daily. Most recent echocardiogram obtained in March 2023 revealed ejection fraction 20 to 25%, mild to moderate TR, trace MR, and calcified aortic valve without significant stenosis Cardiac catheterization history: January 2016 revealing intermediate in-stent restenosis of the RCA, mild to moderate nonobstructive coronary artery disease involving the left coronary system, normal left ventricular systolic function. 11/08 Patient is seen today in follow-up. He states he was coughing all night long with sputum production and sweats. He does use nebulizer which seems to be helping his breathing. He is maintained on IV Lasix 40 mg every 12 hours. IDALMIS and weights do not appear to be accurate. Blood pressure is 120/68. Yesterday afternoon, patient had 1 blood pressure reading 83/47. Heart rate is in the 80s. Telemetry sinus rhythm. He has been afebrile. Repeat blood work reveals hemoglobin 11.8. There is worsening of his renal function with BUN of 58 creatinine 2.08. PHYSICAL EXAM: VITAL SIGNS: Reviewed. GENERAL: Well-developed in no acute distress. HEENT: Head is normocephalic. Pupils are equal, round. Sclerae anicteric. LUNGS: Respirations even and unlabored. Lungs diminished. HEART: Regular rate and rhythm. S1 and S2 heard. Soft systolic murmur noted. ABDOMEN: Soft no significant ascites EXTREMITIES: No clubbing or cyanosis. Peripheral pulses intact. 2+ bilateral pitting lower extremity edema NEUROLOGIC: Awake and alert. Oriented x 3. ASSESSMENT: Acute on chronic heart failure with reduced ejection fraction of 25% COPD exacerbation Elevated troponin, suspect secondary to type II MS secondary to oxygen supply demand mismatch Coronary artery disease with previous stenting of the RCA Mild to moderate nonobstructive CAD involving left coronary system Ischemic cardiomyopathy Chronic kidney disease Chronic hypoxic respiratory failure on home O2 at 4 L nasal cannula Hypertension Hyperlipidemia Former nicotine dependence, patient quit smoking 2 to 3 months ago Former alcohol abuse, patient states he has not drank in 30 years History of medication noncompliance and lack of office follow-up Acute kidney injury PLAN: No need to repeat echocardiogram Continue current cardiac medications Decrease Lasix to 60 mg twice daily oral which is his home dose Daily weights, accurate I&O, and monitoring of kidney function Further recommendations pending patient course Nurse practitioner note has been reviewed by physician. Signing provider agrees with the documented findings, assessment, and plan of care. Objective - Vital Signs Vital signs: Vital Signs Temp 98.0 F 11/09/23 04:38 Pulse 80 11/09/23 08:35 Resp 16 11/09/23 08:00 BP 120/68 11/09/23 08:00 Pulse Ox 98 11/09/23 08:00 FiO2 Intake & Output 11/08/23 11/09/23 11/09/23 18:59 06:59 18:59 Intake Total 1078 118 240 Output Total 250 Balance 1078 -132 240 Weight 68.1 kg 70 kg Intake: Oral 1078 118 240 Output: Urine 250 Other: Voiding Method Toilet Toilet Urinal Urinal # Bowel Movements 1 - Labs CBC & Chem 7: 11/09/23 09:30 11/09/23 09:30 Labs: Abnormal Lab Results - Last 24 Hours (Table) 11/08/23 11/08/23 11/08/23 Range/Units 07:31 11:41 16:11 POC Glucose (mg/dL) 327 H 124 H (70-110) mg/dL Hemoglobin A1c 8.2 H (<=6.0) % 11/08/23 11/09/23 Range/Units 20:13 06:06 POC Glucose (mg/dL) 220 H 241 H (70-110) mg/dL Hemoglobin A1c (<=6.0) %
[2023-11-09 16:23] LABS: Glucose,Whole Blood 201 mg/dL (70-110)
[2023-11-09] MEDS: FUROSEMIDE 20 MG TAB PO SCH (16:46)
[2023-11-09 20:22] LABS: Glucose,Whole Blood 219 mg/dL (70-110)
[2023-11-10] MEDS: hydrOXYzine HCL 25 MG TAB PO PRN (03:12)
[2023-11-10 06:14] LABS: Glucose,Whole Blood 275 mg/dL (70-110)
[2023-11-10 12:21] LABS: Glucose,Whole Blood 319 mg/dL (70-110)
--- NOTE | 2023-11-10 13:14 | P.PN ---
Subjective HISTORY OF PRESENT ILLNESS: This is a 63-year-old male with a past medical history significant for coronary artery disease with previous stenting, ischemic cardiomyopathy, hypertension, hyperlipidemia, nicotine dependence, former alcohol abuse, chronic hypoxic respiratory failure on home O2 at 4 L. Patient has not followed in the office since 2015, however at that time he saw Dr. Soni. We have been asked to see the patient in consultation for CHF. Patient presented to the hospital with a chief complaint of shortness of breath and also BKS that he had numbness on the left side of his body. It changed from numbness to pain in the back to numbness. He denies having any chest pain. Patient has been retaining fluid and has had about a 4 to 5 pound weight gain recently. He states he has lightheadedness and dizziness with standing all the time. He has had no recent paracentesis. He states he has been taking all of his medications as directed. He states that he is breathing is better today. He has been urinating significantly. Patient was placed on Lasix 40 mg every 12 hours by IV. EKG reveals sinus mechanism with T wave inversions in inferior leads and V5V6, similar to previous EKG Chest xray: Bilateral small pleural effusions superimposed on the background of COPD. Correlate for mild venous congestion. CT of the chest revealed small to moderate bilateral pleural effusions with adjacent compressive atelectasis without significant interval change. Unchanged groundglass attenuation throughout both lungs. Previously seen opacity on the lateral aspect of the left lung diminished. Laboratory studies: CBC unremarkable. INR 1. Sodium 134, potassium 4.6, BUN 26 and creatinine 1.16. Glucose 205. Alkaline phosphatase 148. Troponin 0.052. proBNP 28,300 with repeat of 15,600. Current home cardiac medications: Aspirin 81 mg daily, atorvastatin 40 mg at bedtime, Farxiga 10 mg daily, Lasix 60 mg twice daily, hydralazine 100 mg 3 times daily, Imdur 20 mg daily, metolazone 5 mg daily, Toprol-XL 25 mg daily, Entresto 24 mg - 26 mg 1 tablet twice daily, spironolactone 25 mg daily. Most recent echocardiogram obtained in March 2023 revealed ejection fraction 20 to 25%, mild to moderate TR, trace MR, and calcified aortic valve without significant stenosis Cardiac catheterization history: January 2016 revealing intermediate in-stent restenosis of the RCA, mild to moderate nonobstructive coronary artery disease i nvolving the left coronary system, normal left ventricular systolic function. 11/08 Patient is seen today in follow-up. He states he was coughing all night long with sputum production and sweats. He does use nebulizer which seems to be helping his breathing. He is maintained on IV Lasix 40 mg every 12 hours. IDALMIS and weights do not appear to be accurate. Blood pressure is 120/68. Yesterday afternoon, patient had 1 blood pressure reading 83/47. Heart rate is in the 80s. Telemetry sinus rhythm. He has been afebrile. Repeat blood work reveals hemoglobin 11.8. There is worsening of his renal function with BUN of 58 creatinine 2.08. 11/10/2023 Patient examined this morning at bedside. Patient is sitting on the side of the bed. Patient currently denies any chest pain or pressure. He denies shortness of breath. Blood pressures are somewhat soft this morning. Patient is hoping to be discharged home today. PHYSICAL EXAM: VITAL SIGNS: Reviewed. GENERAL: Well-developed in no acute distress. NECK: Supple. No JVD or thyromegaly LUNGS: Respirations even and unlabored. Lungs essentially clear to auscultation bilaterally. HEART: Regular rate and rhythm. S1 and S2 heard. EXTREMITIES: Normal range of motion. No clubbing or cyanosis. Peripheral pulses intact. No lower extremity edema ASSESSMENT: Acute on chronic heart failure with reduced ejection fraction of 25% COPD exacerbation Elevated troponin, suspect secondary to type II MA secondary to oxygen supply demand mismatch Coronary artery disease with previous stenting of the RCA Mild to moderate nonobstructive CAD involving left coronary system Ischemic cardiomyopathy Chronic kidney disease Chronic hypoxic respiratory failure on home O2 at 4 L nasal cannula Hypertension Hyperlipidemia Former nicotine dependence, patient quit smoking 2 to 3 months ago Former alcohol abuse, patient states he has not drank in 30 years History of medication noncompliance and lack of office follow-up Acute kidney injury PLAN: Discontinue hydralazine Increase metoprolol succinate to 50 mg daily Continue additional cardiac medications Patient is stable for discharge home today from a cardiac standpoint We will follow on an as-needed basis. Please call with questions or concerns. Nurse practitioner note has been reviewed by physician. Signing provider agrees with the documented findings, assessment, and plan of care documented by MLT as a scribe. Objective - Vital Signs Vital signs: Vital Signs Temp 97.9 F 11/10/23 09:18 Pulse 76 11/10/23 09:37 Resp 16 11/10/23 09:18 BP 107/66 11/10/23 09:18 Pulse Ox 95 11/10/23 09:18 FiO2 Intake & Output 11/09/23 11/10/23 11/10/23 18:59 06:59 18:59 Intake Total 720 480 Balance 720 480 Weight 69.8 kg Intake: Oral 720 480 Other: Voiding Method Toilet Toilet Urinal Urinal # Voids 3 - Labs CBC & Chem 7: 11/09/23 09:30 11/09/23 09:30 Labs: Abnormal Lab Results - Last 24 Hours (Table) 11/09/23 11/09/23 11/09/23 Range/Units 11:36 16:22 20:21 POC Glucose (mg/dL) 333 H 201 H 219 H (70-110) mg/dL 11/10/23 Range/Units 06:13 POC Glucose (mg/dL) 275 H (70-110) mg/dL
[2023-11-10] MEDS ORDERED: hydrALAZINE HCL 25 MG TAB PO SCH (16:00)
[2023-11-10 16:45] LABS: Glucose,Whole Blood 108 mg/dL (70-110)
[2023-11-10 20:12] LABS: Glucose,Whole Blood 288 mg/dL (70-110)
[2023-11-11 01:01] VITALS: TEMP 98.3
--- NOTE | 2023-11-11 04:41 | PN ---
PROGRESS NOTE SUBJECTIVE: This is a 63-year-old white male, cardiology has evaluated. Home medications have been started. He has been on IV Lasix for diuresis. He is up ambulating. His dizziness and shortness of breath are better since he came for admission. OBJECTIVE: HEART: Regular rate and rhythm. EXTREMITIES: 1 to 2+ edema. VITAL SIGNS: Stable. Acute on chronic systolic heart failure with reduced ejection fraction 25%, COPD exacerbation. However, troponin type 2 NV secondary to oxygen demand. Coronary artery disease with previous stenting, [id number] obstructive heart disease, ischemic cardiomyopathy, chronic kidney disease, chronic hypoxemic respiratory failure, on home O2 of 4 L, hypertension, dyslipidemia, nicotine addiction, alcohol abuse, has drank for 30 years. He stopped his hydralazine. Increased his metoprolol, stable for discharge. Possible discharge home after COPD improved. We will see how patient is doing. Continue on IV steroids for now and breathing treatments. MMODL / IJN: [id number] /
[2023-11-11 06:03] VITALS: RESP 18
[2023-11-11 06:20] LABS: Glucose,Whole Blood 237 mg/dL (70-110)
[2023-11-11] MEDS: METOPROLOL SUCCINATE (ER) 50 MG TAB.ER.24H PO SCH (08:42)
[2023-11-11 12:02] LABS: Glucose,Whole Blood 251 mg/dL (70-110)
[2023-11-11 13:04] VITALS: BP 102/67; PULSE 76
== END 2023-11-11 13:50 | disposition home or self-care (01) ==
LOC: EC 12:22 → 3SCARD 13:49
PROVIDERS: ADMIT Family Medicine; ATTEND Family Medicine
DX: I13.0 Hypertensive heart and chronic kidney disease with heart failure and stage 1 through stage 4 chronic kidney disease, or unspecified chronic kidney disease (principal); I50.23 Acute on chronic systolic (congestive) heart failure; I21.A1 Myocardial infarction type 2; J44.1 Chronic obstructive pulmonary disease with (acute) exacerbation; N17.9 Acute kidney failure, unspecified; J96.11 Chronic respiratory failure with hypoxia; N18.9 Chronic kidney disease, unspecified; E11.22 Type 2 diabetes mellitus with diabetic chronic kidney disease; I25.10 Atherosclerotic heart disease of native coronary artery without angina pectoris; I25.5 Ischemic cardiomyopathy; E78.5 Hyperlipidemia, unspecified; T50.916A Underdosing of multiple unspecified drugs, medicaments and biological substances, initial encounter; F17.210 Nicotine dependence, cigarettes, uncomplicated; Z79.82 Long term (current) use of aspirin; Z79.84 Long term (current) use of oral hypoglycemic drugs; Z79.4 Long term (current) use of insulin; Z79.899 Other long term (current) drug therapy; Z79.52 Long term (current) use of systemic steroids; Z88.0 Allergy status to penicillin; Z88.8 Allergy status to other drugs, medicaments and biological substances; Z99.81 Dependence on supplemental oxygen; Z95.5 Presence of coronary angioplasty implant and graft; Z91.148 Patient's other noncompliance with medication regimen for other reason; Z87.898 Personal history of other specified conditions
CPT/HCPCS: 96376 ×5; 96375 ×3; 96374; 99285; 36415; 94640 ×8; 93005; 83880 ×2; 80053 ×2; 84484; 85025 ×2; 85610; 85730; 83036; 84145; 71046; 71250; G0378 ×5; J2270; J1940 ×3; J2405; J1170 ×6

== ENCOUNTER 2023-12-26 12:45 | Inpatient (IN) | payer OTHER ==
[2023-12-26 13:27] LABS: Basophils % (A) 1 %; Eosinophils # (A) 0.2 k/uL (0-0.7); Eosinophils % (A) 4 %; HCT 39.6 % (39.0-53.0); HGB 12.4 gm/dL (13.0-17.5); Lymphocytes # (A) 0.9 k/uL (1.0-4.8); Lymphocytes % (A) 17 %; MCH 29.3 pg (25.0-35.0); MCHC 31.4 g/dL (31.0-37.0); MCV 93.1 fL (80.0-100.0); Mean Platelet Volume 8.4; Monocytes # (A) 0.5 k/uL (0-1.0); Monocytes % (A) 9 %; Neutrophils # (A) 3.5 k/uL (1.3-7.7); Neutrophils % (A) 67 %; Platelet Count 183 k/uL (150-450); RBC 4.25 m/uL (4.30-5.90); RDW 14.2 % (11.5-15.5); WBC 5.3 k/uL (3.8-10.6)
[2023-12-26 13:39] LABS: Partial Thromboplastin Time 26.9 sec (22.0-30.0); Prothrombin Time 11.1 sec (10.0-12.5)
[2023-12-26] MEDS: HYDROmorphone 1 MG/ML 1 ML SYRINGE IVP STA ×2 (13:41→15:21)
--- NOTE | 2023-12-26 13:47 | XR ---
EXAMINATION TYPE: XR chest 2V DATE OF EXAM: 12/26/2023 COMPARISON: 11/07/2023 HISTORY: 63 year-old male shortness of breath, difficulty breathing TECHNIQUE: AP and lateral views FINDINGS: Heart mild to moderately enlarged. Diffuse interstitial densities. Small effusions, left greater righ t with some patchy left basilar opacity. IMPRESSION: Correlate for CHF with pulmonary vascular congestion. Small left greater than right pleural effusions with adjacent atelectasis and/or consolidation.
[2023-12-26 13:52] LABS: ALT 33 U/L (4-49); African American GFR (CKD) >90 (>60 ml/min/1.73 sqM); Albumin 3.5 g/dL (3.5-5.0); Anion Gap 5 mmol/L; Blood Urea Nitrogen 21 mg/dL (9-20); Calcium 8.6 mg/dL (8.4-10.2); Carbon Dioxide 22 mmol/L (22-30); Chloride 108 mmol/L (98-107); Glucose 152 mg/dL (74-99); Non-African American GFR(CKD) 88 (>60 ml/min/1.73 sqM); Sodium 135 mmol/L (137-145); Total Bilirubin 1.1 mg/dL (0.2-1.3)
[2023-12-26 14:00] LABS: NT-Pro-B-Type Natriuretic Pept 22200 pg/mL
[2023-12-26 14:04] LABS: AST 39 U/L (17-59); Alkaline Phosphatase 121 U/L (38-126); Magnesium 1.7 mg/dL (1.6-2.3); Potassium 4.8 mmol/L (3.5-5.1)
[2023-12-26] MEDS ORDERED: NALOXONE 0.4 MG/ML 1 ML VIAL IV PRN (14:28)
--- NOTE | 2023-12-26 14:28 | ED ---
SOB HPI - General Chief Complaint: Shortness of Breath Stated Complaint: Chest Pain,Sob-sent by Time Seen by Provider: 12/26/23 12:50 Source: patient Mode of arrival: ambulatory Limitations: no limitations - History of Present Illness Initial Comments: 63-year-old male with past medical history of CHF, COPD who wears 2 L of home O2 who presents to the emergency department with shortness of breath. Recently states he has been wearing his oxygen but has been turning it up to 4 L. He stopped taking his diuretics 3 days ago as he states that he is tired of being constantly ill. States that he wants to go to sleep and never wake up. Patient does have lower extremity swelling. He states his inhalers are not working. Denies fevers, chills or cough. No other alleviating, precipitating or modifying factors - Related Data Home Medications Medication Instructions Recorded Confirmed Albuterol Sulfate [Albuterol 2 puff PO RT-Q4H PRN 12/26/23 12/26/23 Sulfate Hfa] Furosemide [Lasix] 40 mg PO BID 12/26/23 12/26/23 LORazepam [Ativan] 0.5 mg PO DAILY PRN 12/26/23 12/26/23 Previous Rx's Medication Instructions Recorded Atorvastatin [Lipitor] 40 mg PO HS 90 Days #90 tab 04/22/23 Metoprolol Succinate (ER) [Toprol 25 mg PO DAILY 90 Days #90 tab 04/22/23 XL] Ipratropium-Albuterol Nebulize 3 ml INHALATION RT-QID 30 Days 11/11/23 [Duoneb 0.5 mg-3 mg/3 ml Soln] #120 each Acetaminophen Tab [Tylenol] 500 mg PO Q6HR PRN tab 12/31/23 Aspirin 81 mg PO DAILY tab 12/31/23 Dapagliflozin Propanediol [Farxiga] 10 mg PO DAILY 30 Days #30 tab 12/31/23 Formoterol Fumarate [Perforomist] 20 mcg INHALATION RT-BID 30 Days 12/31/23 #60 ml Gabapentin [Neurontin] 600 mg PO TID 90 Days #90 cap 12/31/23 Mirtazapine [Remeron] 15 mg PO HS 30 Days #30 tab 12/31/23 Sacubitril/Valsartan [Entresto 49 1 each PO BID 30 Days #60 tab 12/31/23 mg-51 mg Tablet] Spironolactone [Aldactone] 25 mg PO DAILY 90 Days #90 tab 12/31/23 oxyCODONE HCL [OxyIR] 15 mg PO Q6HR PRN tab 12/31/23 Allergies Allergy/AdvReac Type Severity Reaction Status Date / Time Penicillins Allergy Unknown Verified 12/26/23 14:42 Childhood metformin AdvReac Mild Nausea & Verified 12/26/23 14:42 Vomiting & Diarrhea Review of Systems ROS Statement: Those systems with pertinent positive or pertinent negative responses have been documented in the HPI. ROS Other: All systems not noted in ROS Statement are negative. Past Medical History Past Medical History: Coronary Artery Disease (CAD), Heart Failure, COPD, CVA/TIA, Diabetes Mellitus, Eye Disorder, Hyperlipidemia, Hypertension, Liver Disease, Myocardial Infarction (TX), Renal Disease Additional Past Medical History / Comment(s): Iischemic cardiomyopathy, PVCs, CVA 2019 with L sided weakness, chronic low back pain d/t vertebral fractures years ago as well as cervical pinched nerves, DDD, IDDM type II, neuropathy bilateral hands/legs and feet, pt states he can barely see with L eye and R eye vision is not very good/he is unsure why but believes it is d/t diabetes, liver disease/hepatitis C/ETOH abuse, recurrent ascities/paracentesis, recent R hip fracture d/t fall/recurrent falls. Last Myocardial Infarction Date:: October 2018 History of Any Multi-Drug Resistant Organisms: MRSA Date of last positivie culture/infection: 11/23/20 MDRO Source:: FOOT MRSA Past Surgical History: Cholecystectomy, Heart Catheterization, Heart Catheterization With Stent, Tonsillectomy Additional Past Surgical History / Comment(s): R heel I&D, colonoscopy. Past Anesthesia/Blood Transfusion Reactions: No Reported Reaction Date of Last Stent Placement:: 2011 Past Psychological History: Anxiety, Bipolar, Depression Smoking Status: Current every day smoker Past Alcohol Use History: None Reported Past Drug Use History: Marijuana - Past Family History Mother Family Medical History: Cancer Father Family Medical History: Coronary Artery Disease (CAD), Diabetes Mellitus, Hypertension General Exam Limitations: no limitations General appearance: alert, in distress Head exam: Present: atraumatic, normocephalic, normal inspection Eye exam: Present: normal appearance, PERRL, EOMI. Absent: scleral icterus, conjunctival injection, periorbital swelling ENT exam: Present: normal exam, mucous membranes moist Neck exam: Present: normal inspection. Absent: tenderness, meningismus, lymphadenopathy Respiratory exam: Present: rales, accessory muscle use, decreased breath sounds, other (Tachypnea). Absent: respiratory distress, wheezes, rhonchi, stridor Cardiovascular Exam: Present: regular rate, normal rhythm, normal heart sounds. Absent: systolic murmur, diastolic murmur, rubs, gallop, clicks GI/Abdominal exam: Present: soft, normal bowel sounds. Absent: distended, tenderness, guarding, rebound, rigid Extremities exam: Present: normal inspection, full ROM, normal capillary refill. Absent: tenderness, pedal edema, joint swelling, calf tenderness Back exam: Present: normal inspection Neurological exam: Present: alert, oriented X3, CN II-XII intact Psychiatric exam: Present: normal affect, normal mood Skin exam: Present: warm, dry, intact, normal color. Absent: rash Course Vital Signs 12/26/23 12/26/23 12/26/23 12:48 13:37 14:24 Temperature 98.0 F Pulse Rate 100 86 79 Respiratory 36 H 18 18 Rate Blood Pressure 182/81 174/107 151/88 O2 Sat by Pulse 99 96 99 Oximetry 12/26/23 12/26/23 12/26/23 16:00 16:06 16:14 Temperature Pulse Rate 76 81 78 Respiratory 24 Rate Blood Pressure 151/57 O2 Sat by Pulse 97 97 Oximetry 12/26/23 17:00 Temperature Pulse Rate 75 Respiratory 18 Rate Blood Pressure 164/79 O2 Sat by Pulse 98 Oximetry Medical Decision Making - Medical Decision Making Was pt. sent in by a medical professional or institution (, PA, MEDICINE ASSISTANT, urgent care, hospital, or fci...) When possible be specific @ -Patient sent from Dr. Guerrero office Did you speak to anyone other than the patient for history (EMS, parent, family, police, friend...)? What history was obtained from this source @ -No Did you review nursing and triage notes (agree or disagree)? Why? @ -I reviewed and agree with nursing and triage notes Were old charts reviewed (outside hosp., previous admission, EMS record, old EKG, old radiological studies, urgent care reports/EKG's, fci records)? Report findings @ -No old charts were reviewed Differential Diagnosis (chest pain, altered mental status, abdominal pain women, abdominal pain men, vaginal bleeding, weakness, fever, dyspnea, syncope, headache, dizziness, GI bleed, back pain, seizure, CVA, palpatations, mental health, musculoskeletal)? @ -Differential Dyspnea: Coronary syndrome, arrhythmia, tamponade, asthma, COPD, pulmonary embolism, pneumonia, pneumothorax, pulmonary effusion, anaphylaxis, diabetic ketoacidosis, flailed chest, pulmonary contusion, diaphragmatic rupture, anemia, neuromuscular, this is not meant to be an all-inclusive list. EKG interpreted by me (3pts min.). @ -Yes and demonstrates sinus rhythm with a rate of 95. Parable 152. QRS 125. QTc of 423. Left bundle branch block. X-rays interpreted by me (1pt min.). @ -Yes and demonstrates congestive heart failure CT interpreted by me (1pt min.). @ -None done U/S interpreted by me (1pt. min.). @ -None done What testing was considered but not performed or refused? (CT, X-rays, U/S, labs)? Why? @ -None What meds were considered but not given or refused? Why? @ -None Did you discuss the management of the patient with other professionals (professionals i.e. , PA, MEDICINE ASSISTANT, lab, RT, psych nurse, social services assistant, freight separator, teacher, hotel security officer, correctional casework specialist)? Give summary @ -Spoke with Dr. arce who will admit pt Was smoking cessation discussed for >3mins.? @ -No Was critical care preformed (if so, how long)? @ -No Were there social determinants of health that impacted care today? How? (Homelessness, low income, unemployed, alcoholism, drug addiction, transportation, low edu. Level, literacy, decrease access to med. care, assisted, rehab)? @ -No Was there de-escalation of care discussed even if they declined (Discuss DNR or withdrawal of care, Hospice)? DNR status @ -No What co-morbidities impacted this encounter? (DM, HTN, Smoking, COPD, CAD, Cancer, CVA, ARF, Chemo, Hep., AIDS, mental health diagnosis, sleep apnea, morbid obesity)? @ -COPD, CHF Was patient admitted / discharged? Hospital course, mention meds given and route, prescriptions, significant lab abnormalities, going to OR and other pertinent info. @ -Upon arrival patient seen and evaluated in room 5. Thorough history and physical exam was performed. IV access was established. Laboratory studies were conducted. Chest x-ray was performed. Patient does have exacerbation of heart failure. He is given a dose of diuretics. Patient will be admitted for further diuresis Undiagnosed new problem with uncertain prognosis? @ -No Drug Therapy requiring intensive monitoring for toxicity (Heparin, Nitro, Insulin, Cardizem)? @ -No Were any procedures done? @ -No Diagnosis/symptom? @ -Acute respiratory insufficiency, chronic respiratory failure, acute exacerbation of COPD, acute exacerbation of CHF Acute, or Chronic, or Acute on Chronic? @ -Acute on chronic Uncomplicated (without systemic symptoms) or Complicated (systemic symptoms)? @ -Complicated Side effects of treatment? @ -No Exacerbation, Progression, or Severe Exacerbation? @ -Yes Poses a threat to life or bodily function? How? (Chest pain, [place], [place], pneumonia, PE, COPD, DKA, ARF, appy, cholecystitis, CVA, Diverticulitis, Homicidal, Suicidal, threat to staff... and all critical care pts) @ -Yes as patient is having a hard time breathing - Lab Data Result diagrams: 12/31/23 14:29 12/31/23 14:29 Lab Results 12/26/23 12/26/23 12/26/23 Range/Units 13:16 13:16 13:16 WBC 5.3 (3.8-10.6) k/uL RBC 4.25 L (4.30-5.90) m/uL Hgb 12.4 L (13.0-17.5) gm/dL Hct 39.6 (39.0-53.0) % MCV 93.1 (80.0-100.0) fL MCH 29.3 (25.0-35.0) pg MCHC 31.4 (31.0-37.0) g/dL RDW 14.2 (11.5-15.5) % Plt Count 183 (150-450) k/uL MPV 8.4 Neutrophils % 67 % Lymphocytes % 17 % Monocytes % 9 % Eosinophils % 4 % Basophils % 1 % Neutrophils # 3.5 (1.3-7.7) k/uL Lymphocytes # 0.9 L (1.0-4.8) k/uL Monocytes # 0.5 (0-1.0) k/uL Eosinophils # 0.2 (0-0.7) k/uL Basophils # 0.0 (0-0.2) k/uL PT 11.1 (10.0-12.5) sec INR 1.0 (<1.2) APTT 26.9 (22.0-30.0) sec Sodium 135 L (137-145) mmol/L Potassium 4.8 (3.5-5.1) mmol/L Chloride 108 H (98-107) mmol/L Carbon Dioxide 22 (22-30) mmol/L Anion Gap 5 mmol/L BUN 21 H (9-20) mg/dL Creatinine 0.92 (0.66-1.25) mg/dL Est GFR (CKD-EPI)AfAm >90 (>60 ml/min/1.73 sqM) Est GFR (CKD-EPI)NonAf 88 (>60 ml/min/1.73 sqM) Glucose 152 H (74-99) mg/dL Plasma Lactic Acid Adelso (0.7-2.0) mmol/L Calcium 8.6 (8.4-10.2) mg/dL Magnesium 1.7 (1.6-2.3) mg/dL Total Bilirubin 1.1 (0.2-1.3) mg/dL AST 39 (17-59) U/L ALT 33 (4-49) U/L Alkaline Phosphatase 121 (38-126) U/L Troponin I (0.000-0.034) ng/mL NT-Pro-B Natriuret Pep 88774 pg/mL Total Protein 6.0 L (6.3-8.2) g/dL Albumin 3.5 (3.5-5.0) g/dL 12/26/23 12/26/23 Range/Units 13:16 13:16 WBC (3.8-10.6) k/uL RBC (4.30-5.90) m/uL Hgb (13.0-17.5) gm/dL Hct (39.0-53.0) % MCV (80.0-100.0) fL MCH (25.0-35.0) pg MCHC (31.0-37.0) g/dL RDW (11.5-15.5) % Plt Count (150-450) k/uL MPV Neutrophils % % Lymphocytes % % Monocytes % % Eosinophils % % Basophils % % Neutrophils # (1.3-7.7) k/uL Lymphocytes # (1.0-4.8) k/uL Monocytes # (0-1.0) k/uL Eosinophils # (0-0.7) k/uL Basophils # (0-0.2) k/uL PT (10.0-12.5) sec INR (<1.2) APTT (22.0-30.0) sec Sodium (137-145) mmol/L Potassium (3.5-5.1) mmol/L Chloride (98-107) mmol/L Carbon Dioxide (22-30) mmol/L Anion Gap mmol/L BUN (9-20) mg/dL Creatinine (0.66-1.25) mg/dL Est GFR (CKD-EPI)AfAm (>60 ml/min/1.73 sqM) Est GFR (CKD-EPI)NonAf (>60 ml/min/1.73 sqM) Glucose (74-99) mg/dL Plasma Lactic Acid Adelso 1.1 (0.7-2.0) mmol/L Calcium (8.4-10.2) mg/dL Magnesium (1.6-2.3) mg/dL Total Bilirubin (0.2-1.3) mg/dL AST (17-59) U/L ALT (4-49) U/L Alkaline Phosphatase (38-126) U/L Troponin I 0.029 (0.000-0.034) ng/mL NT-Pro-B Natriuret Pep pg/mL Total Protein (6.3-8.2) g/dL Albumin (3.5-5.0) g/dL Disposition Clinical Impression: Acute exacerbation of CHF (congestive heart failure), Respiratory insufficiency Disposition: ADMITTED IP TO THIS HOSP Condition: Stable Is patient prescribed a controlled substance at d/c from ED?: No Time of Disposition: 14:28 Decision to Admit Reason: Admit from EC Decision Date: 12/26/23 Decision Time: 14:28
[2023-12-26] MEDS ORDERED: LORazepam 0.5 MG TAB PO PRN (15:04)
[2023-12-26] MEDS: FUROSEMIDE 10 MG/ML 10 ML VIAL IV STA (15:18)
[2023-12-26] MEDS: IPRATROPIUM-ALBUTEROL 3 ML NEB INHALATION SCH (16:05)
[2023-12-26] MEDS ORDERED: hydrALAZINE HCL 20 MG/ML 1 ML VIAL IVP PRN (16:34)
[2023-12-26 17:14] LABS: Glucose,Whole Blood 253 mg/dL (70-110)
[2023-12-26] MEDS: DAPAGLIFLOZIN PROPANEDIOL 5 MG TABLET PO SCH (17:14)
[2023-12-26] MEDS: GABAPENTIN 300 MG CAP PO SCH (17:14)
[2023-12-26] MEDS: oxyCODONE-APAP 10-325MG 1 EACH TAB PO SCH (17:17)
[2023-12-26 17:19] LABS: Amylase 55 U/L (30-110); C Reactive Protein <0.5 mg/dL (<1.0)
[2023-12-26] MEDS: INSULIN ASPART (NovoLOG) 100 UNIT/ML VIAL SQ SCH (17:54)
[2023-12-26 18:59] LABS: T4, Free (Free Thyroxine) 2.09 ng/dL (0.78-2.19)
[2023-12-26 20:00] LABS: Appearance,Urine Clear (Clear); Bilirubin,Urine Negative (Negative); Blood,Urine Trace (Negative); Color,Urine Colorless; Glucose,Urine (UA) Negative (Negative); Hyaline Casts,Urine 15 /lpf (0-2); Ketones,Urine Negative (Negative); Leukocyte Esterase,Urine Negative (Negative); Mucus,Urine Occasional /hpf; Nitrite,Urine Negative (Negative); Protein,Urine 3+ (Negative); RBC,Urine <1 /hpf (0-5); Specific Gravity,Urine 1.012 (1.001-1.035); Urobilinogen,Urine <2.0 mg/dL (<2.0); WBC,Urine 1 /hpf (0-5)
[2023-12-26 20:01] LABS: Amphetamine Screen,Urine Not Detected (NotDetected); Barbiturate Screen,Urine Not Detected (NotDetected); Benzodiazepines Screen,Urine Not Detected (NotDetected); Cocaine Screen,Urine Detected (NotDetected); Methadone Screen, Urine Not Detected (NotDetected); Opiate Screen,Urine Detected (NotDetected); Oxycodone Screen, Urine Not Detected (NotDetected); Phencyclidine Screen,Urine Not Detected (NotDetected); Tricyclic Antidepressant,Urine Not Detected (NotDetected); Urn Cannabinoid Scrn Detected (NotDetected)
[2023-12-26] MEDS: FORMOTEROL FUMARATE 20 MCG/2 ML NEBU INHALATION SCH (20:01)
[2023-12-26] MEDS: HYDROmorphone 1 MG/ML 1 ML SYRINGE IVP PRN (20:11)
[2023-12-26] MEDS: SACUBITRIL/VALSARTAN 24 MG-26 MG TABLET PO SCH (20:11)
[2023-12-26] MEDS: ATORVASTATIN 40 MG TAB PO SCH (20:12)
[2023-12-26] MEDS: FUROSEMIDE 10 MG/ML 4 ML VIAL IV SCH (20:21)
[2023-12-26] MEDS ORDERED: FUROSEMIDE 10 MG/ML 10 ML VIAL IV SCH (21:00)
[2023-12-26 21:24] LABS: Glucose,Whole Blood 87 mg/dL (70-110)
--- NOTE | 2023-12-26 22:25 | CT ---
EXAMINATION TYPE: CT chest angio for PE DATE OF EXAM: 12/26/2023 COMPARISON: NONE HISTORY: Elevated D-dimer. SOB. CT DLP: 289.0 mGycm. Automated Exposure Control for Dose Reduction was Utilized. CONTRAST: CTA scan of the thorax is performed with IV Contrast, patient injected with 100 ml mL of Isovue 370, pulmonary embolism protocol. MIP Images are created on CT scanner and reviewed. FINDINGS: LUNGS: Small to moderate sized bilateral pleural effusions with associated compressive atelectasis in the lung bases. Approximately 1.2 cm groundglass nodule left upper lobe axial image 24. Focal irregu lar parenchymal scarring anterior right upper lobe axial image 63. MEDIASTINUM: There is satisfactory enhancement of the pulmonary artery and its branches, there is no CT evidence for pulmonary embolism. There are no greater than 1 cm hilar or mediastinal lymph nodes. No cardiomegaly or pericardial effusion is seen. Coronary artery calcification and/or stents are p resent. OTHER: Bilateral gynecomastia is seen. Cholecystectomy clips are noted. IMPRESSION: 1. No CT evidence for acute pulmonary embolism. 2. [id number] sized bilateral pleural effusions. Correlate for fluid overload state.
--- NOTE | 2023-12-26 22:46 | US ---
EXAMINATION TYPE: US venous doppler duplex LE BI DATE OF EXAM: 12/26/2023 7:13 PM Exam done portable COMPARISON: US May 25, 2023 CLINICAL INDICATION: Male, 63 years old with history of elevated d-dimer; SIDE PERFORMED: Bilateral TECHNIQUE: The lower extremity deep venous system is examined utilizing real time linear array sonog hugo with graded compression, doppler sonography and color-flow sonography. VESSELS IMAGED: Common Femoral Vein Deep Femoral Vein Greater Saphenous Vein * Femoral Vein Popliteal Vein Small Saphenous Vein * Proximal Calf Veins (* superficial vessels) Right Leg: Appears negative for DVT Left Leg: Appears negative for DVT Grayscale, color doppler, spectral doppler imaging performed of the deep veins of the bilateral lower extremities. There is normal flow, compressibility, vascular waveforms. IMPRESSION: No ultrasound evidence for acute DVT in either lower extremity.
[2023-12-27 05:48] LABS: Glucose,Whole Blood 255 mg/dL (70-110)
[2023-12-27] MEDS ORDERED: ACETAMINOPHEN TAB 500 MG TAB PO PRN (06:47)
[2023-12-27] MEDS: METOPROLOL SUCCINATE (ER) 25 MG TAB.ER.24H PO SCH (07:26)
[2023-12-27 09:18] LABS: Basophils # (A) 0.02 X 10*3/uL (0.00-0.10); Basophils % (A) 0.5 %; Eosinophils # (A) 0.13 X 10*3/uL (0.04-0.35); Eosinophils % (A) 3.5 %; HCT 31.9 % (39.6-50.0); Lymphocytes # (A) 0.48 X 10*3/uL (0.90-5.00); MCH 28.7 pg (27.0-32.0); MCHC 31.3 g/dL (32.0-37.0); MCV 91.4 FL (80.0-97.0); Mean Platelet Volume 11.6 FL (9.5-12.2); Monocytes # (A) 0.35 X 10*3/uL (0.20-1.00); Monocytes % (A) 9.5 %; NRBC Per 100 WBC 0 X 10*3/uL (0.00-0.01); Neutrophils % (A) 73.2 %; Platelet Count 138 X 10*3/uL (140-440); RBC 3.49 X 10*6/uL (4.40-5.60); RDW 13.7 % (11.5-14.5); WBC 3.69 X 10*3/uL (4.50-10.00)
[2023-12-27 09:41] LABS: BUN/Creat Ratio 23.08 Ratio (12.00-20.00); Calcium 7.9 mg/dL (8.7-10.3); Carbon Dioxide 23.7 mmol/L (21.6-31.8); Chloride 102 mmol/L (96-109); Glucose 309 mg/dL (70-110); Potassium 4.8 mmol/L (3.5-5.5); Sodium 137 mmol/L (135-145)
[2023-12-27] MEDS: GABAPENTIN 300 MG CAP PO ONE (10:12)
--- NOTE | 2023-12-27 11:20 | XR ---
EXAMINATION TYPE: XR lumbar spine 3V, XR Hip Complete 2 views LT DATE OF EXAM: 12/27/2023 Comparison: Lumbar spine 06/06/[address] 07/29/2023 Clinical History: 63-year-old male low back and hip pain after recent fall, trauma Findings: Lumbar spine: Cholecystectomy clips. Osteopenia. Slight dextroconvex curvature. Transitional lumbosacral segment. H ypertrophic facet arthropathy throughout. Mild anterior wedge deformity of L1 remains unchanged back to 07/29/2023 compatible with an old superior endplate injury. Moderate degenerative disc disease L4-L 5. Mild elsewhere in the lumbar spine. Remaining vertebral body heights are preserved. Alignment is m aintained. Left hip: Osteopenia. Vascular calcifications. Hip joint spaces relatively maintained. No displaced fracture. Impression: 1. Lumbar spine: Old superior endplate injury of L1 resulting in mild anterior wedging, unchanged fro m 07/29/2023. No new vertebral compression collapse. Hypertrophic facet arthropathy with transitional lumbosacral segment. 2. Left hip: Osteopenia limiting the assessment. No displaced fracture seen. If nonweightbearing, MRI can provide more sensitive evaluation.
--- NOTE | 2023-12-27 11:30 | P.CNOR ---
History of Present Illness - [facility] Consult date: 12/27/23 Consult reason: low back pain History of present illness: Patient is a 64-year-old male who was admitted to [facility] on 12/26/2023 with regards to a CHF exacerbation. Patient normally takes 2 L of oxygen at home and has been requiring more over the last few days. Patient was admitted to [facility] under internal medicine for further workup and evaluation. Patient did mention he has been having some left-sided lower extremity and low back pain that is increased significantly over the last 10 days. Patient does admit to a fall about 10 days ago and since then its gotten progressively worse. Our orthopedic team was consulted for this. Patient was evaluated at bedside today, he is resting in his hospital bed, he was able to sit up to the side of the bed for the majority of the exam. Patient states that he has had chronic low back pain for many years. He admits to neuropathy in the bilateral lower extremities related likely to his diabetes. Patient denies any previous surgery to his lumbar spine or hip bilateral hips, knees, feet or ankles. Patient states that the pain started worsening after the fall, the pain begins in the low back and left side and radiates down the back of the leg all the way to his foot. He has had a very difficult time trying to find any position that is comfortable. Patient denies any right lower extremity radicular symptoms at this time. He denies any pain to the bilateral upper extremities. Patient does take Percocet 10 mg / 325 mg which she admits that he has been on for the last few months for his back pain and other pain issues. Patient also takes gabapentin at home. That current regimen is providing minimal relief at this time. Patient does live with family, he normally utilizes a walker to help with ambulation. Denies any obvious loss of bowel or bladder function at this time. Patient states that his urinary stream is quite weak and has been for many years. Review of Systems Constitutional: Reports as per HPI Past Medical History Past Medical History: Coronary Artery Disease (CAD), Heart Failure, COPD, CVA/TIA, Diabetes Mellitus, Eye Disorder, Hyperlipidemia, Hypertension, Liver Disease, Myocardial Infarction ([place]), Renal Disease Additional Past Medical History / Comment(s): Iischemic cardiomyopathy, PVCs, CVA 2019 with L sided weakness, chronic low back pain d/t vertebral fractures years ago as well as cervical pinched nerves, DDD, IDDM type II, neuropathy bilateral hands/legs and feet, pt states he can barely see with L eye and R eye vision is not very good/he is unsure why but believes it is d/t diabetes, liver disease/hepatitis C/ETOH abuse, recurrent ascities/paracentesis, recent R hip fracture d/t fall/recurrent falls. Last Myocardial Infarction Date:: July 2023 History of Any Multi-Drug Resistant Organisms: MRSA Year Discovered:: 11/23/20 MDRO Source:: FOOT MRSA Past Surgical History: Cholecystectomy, Heart Catheterization, Heart Catheterization With Stent, Tonsillectomy Additional Past Surgical History / Comment(s): R heel I&D, colonoscopy. Past Anesthesia/Blood Transfusion Reactions: No Reported Reaction Date of Last Stent Placement:: 2011 Past Psychological History: Anxiety, Bipolar, Depression Additional Psychological History / Comment(s): Pt states he lives with his brother. Pt ambulates with a walker. He uses rides thru insurance. Case management/social workers are involved in pt's care Smoking Status: Current every day smoker Past Alcohol Use History: Abuse Additional Past Alcohol Use History / Comment(s): Pt started smoking in 1976. Pt states he has hx of heavy alcohol use but states none for years Past Drug Use History: Cocaine, Heroin, Marijuana Additional Drug Use History / Comment(s): Marijuana occasionally. pt stated he had ICE on 02/24/2020 - Past Family History Mother Family Medical History: Cancer Father Family Medical History: Coronary Artery Disease (CAD), Diabetes Mellitus, Hypertension Medications and Allergies Home Medications Medication Instructions Recorded Confirmed Type Atorvastatin [Lipitor] 40 mg PO HS 90 Days #90 tab 04/22/23 12/26/23 Rx Metoprolol Succinate (ER) [Toprol 25 mg PO DAILY 90 Days #90 tab 04/22/23 12/26/23 Rx XL] Sacubitril/Valsartan [Entresto 24 1 tab PO BID 11/07/23 12/26/23 History mg-26 mg Tablet] Ipratropium-Albuterol Nebulize 3 ml INHALATION RT-QID 30 Days 11/11/23 12/26/23 Rx [Duoneb 0.5 mg-3 mg/3 ml Soln] #120 each Albuterol Sulfate [Albuterol 2 puff PO RT-Q4H PRN 12/26/23 12/26/23 History Sulfate Hfa] Furosemide [Lasix] 40 mg PO BID 12/26/23 12/26/23 History LORazepam [Ativan] 0.5 mg PO DAILY PRN 12/26/23 12/26/23 History oxyCODONE HCL/ACETAMINOPHEN 1 tab PO QID 12/26/23 12/26/23 History [Percocet 10-325 mg] Allergies Allergy/AdvReac Type Severity Reaction Status Date / Time Penicillins Allergy Unknown Verified 12/26/23 14:42 Childhood metformin AdvReac Mild Nausea & Verified 12/26/23 14:42 Vomiting & Diarrhea Physical Examination Gen: AOx3, NAD VSS stable at this time Integument: No open lesions, sores, areas of erythema noted in the cervical, thoracic or lumbar spine There are multiple scabs and small lesions noted in the bilateral lower extremities, he does have chronic skin discoloration in the lower extremities bilaterally Palpation: patient is nontender with palpation about the paraspinal and midline region of the cervical and thoracic spine. He does demonstrate some discomfort to the lower lumbar left-sided paraspinal region ROM: full range of motion in all major muscle groups of the bilateral upper and lower extremities, there is no focal deficits appreciated Sensory Exam: Senory exam to light touch is intact C5-T1 Senosry exam to light touch is intact L2-S1 Motor: 4/5 strength appreciated in the bilateral upper extremities with shoulder elevation, shoulder abduction, elbow extension, elbow flexion, wrist extension, wrist flexion, liquefaction supervisor 4-/5 strength appreciated in the right lower extremity with hip flexion, knee extension, knee flexion, plantarflexion, dorsiflexion, EHL, FHL 3+/5 strength appreciated in the left lower extremity with hip flexion, 4-/5 strength appreciated in the left lower extremity with knee extension, knee flexion, plantarflexion, dorsiflexion, EHL, FHL Reflexes: 2/4 in all UE and LE negative Nanda's bilaterally negative clonus bilaterally Special Test: logroll maneuver of the bilateral lower extremities reproduces no groin pain negative straight leg raise right lower extremity, positive straight leg raise left lower extremity Results - Labs Labs: Abnormal Lab Results - Last 24 Hours (Table) 12/26/23 12/26/23 12/26/23 Range/Units 13:16 13:16 16:47 WBC (4.50-10.00) X 10*3/uL RBC 4.25 L (4.30-5.90) m/uL Hgb 12.4 L (13.0-17.5) gm/dL Hct (39.6-50.0) % MCHC (32.0-37.0) g/dL Plt Count (140-440) X 10*3/uL Lymphocytes # 0.9 L (1.0-4.8) k/uL D-Dimer 0.69 H (<0.60) mg/L FEU Sodium 135 L (137-145) mmol/L Chloride 108 H (98-107) mmol/L BUN 21 H (9-20) mg/dL BUN/Creatinine Ratio (12.00-20.00) Ratio Glucose 152 H (74-99) mg/dL POC Glucose (mg/dL) (70-110) mg/dL Calcium (8.7-10.3) mg/dL Total Protein 6.0 L (6.3-8.2) g/dL TSH (0.465-4.680) mIU/L Urine Protein (Negative) Urine Blood (Negative) Hyaline Casts (0-2) /lpf Urine Mucus (None) /hpf Urine Opiates Screen (NotDetected) Urine Cocaine Screen (NotDetected) U Marijuana (THC) Screen (NotDetected) 12/26/23 12/26/23 12/26/23 Range/Units 16:47 17:14 17:18 WBC (4.50-10.00) X 10*3/uL RBC (4.30-5.90) m/uL Hgb (13.0-17.5) gm/dL Hct (39.6-50.0) % MCHC (32.0-37.0) g/dL Plt Count (140-440) X 10*3/uL Lymphocytes # (1.0-4.8) k/uL D-Dimer (<0.60) mg/L FEU Sodium (137-145) mmol/L Chloride (98-107) mmol/L BUN (9-20) mg/dL BUN/Creatinine Ratio (12.00-20.00) Ratio Glucose (74-99) mg/dL POC Glucose (mg/dL) 253 H (70-110) mg/dL Calcium (8.7-10.3) mg/dL Total Protein (6.3-8.2) g/dL TSH <0.015 L (0.465-4.680) mIU/L Urine Protein 3+ H (Negative) Urine Blood Trace H (Negative) Hyaline Casts 15 H (0-2) /lpf Urine Mucus Occasional H (None) /hpf Urine Opiates Screen (NotDetected) Urine Cocaine Screen (NotDetected) U Marijuana (THC) Screen (NotDetected) 12/26/23 12/27/23 12/27/23 Range/Units 17:18 03:44 03:44 WBC 3.69 L (4.50-10.00) X 10*3/uL RBC 3.49 L (4.30-5.90) m/uL Hgb 10.0 L (13.0-17.5) gm/dL Hct 31.9 L (39.6-50.0) % MCHC 31.3 L (32.0-37.0) g/dL Plt Count 138 L (140-440) X 10*3/uL Lymphocytes # 0.48 L (1.0-4.8) k/uL D-Dimer (<0.60) mg/L FEU Sodium (137-145) mmol/L Chloride (98-107) mmol/L BUN 30.0 H (9-20) mg/dL BUN/Creatinine Ratio 23.08 H (12.00-20.00) Ratio Glucose 309 H (74-99) mg/dL POC Glucose (mg/dL) (70-110) mg/dL Calcium 7.9 L (8.7-10.3) mg/dL Total Protein (6.3-8.2) g/dL TSH (0.465-4.680) mIU/L Urine Protein (Negative) Urine Blood (Negative) Hyaline Casts (0-2) /lpf Urine Mucus (None) /hpf Urine Opiates Screen Detected H (NotDetected) Urine Cocaine Screen Detected H (NotDetected) U Marijuana (THC) Screen Detected H (NotDetected) 12/27/23 Range/Units 05:46 WBC (4.50-10.00) X 10*3/uL RBC (4.30-5.90) m/uL Hgb (13.0-17.5) gm/dL Hct (39.6-50.0) % MCHC (32.0-37.0) g/dL Plt Count (140-440) X 10*3/uL Lymphocytes # (1.0-4.8) k/uL D-Dimer (<0.60) mg/L FEU Sodium (137-145) mmol/L Chloride (98-107) mmol/L BUN (9-20) mg/dL BUN/Creatinine Ratio (12.00-20.00) Ratio Glucose (74-99) mg/dL POC Glucose (mg/dL) 255 H (70-110) mg/dL Calcium (8.7-10.3) mg/dL Total Protein (6.3-8.2) g/dL TSH (0.465-4.680) mIU/L Urine Protein (Negative) Urine Blood (Negative) Hyaline Casts (0-2) /lpf Urine Mucus (None) /hpf Urine Opiates Screen (NotDetected) Urine Cocaine Screen (NotDetected) U Marijuana (THC) Screen (NotDetected) H & H 12/26/23 12/27/23 Range/Units 13:16 03:44 Hgb 12.4 L 10.0 L (13.0-17.5) gm/dL Hct 39.6 31.9 L (39.0-53.0) % Coagulation 12/26/23 Range/Units 13:16 INR 1.0 (<1.2) Result Diagrams: 12/27/23 03:44 12/27/23 03:44 - Diagnostic results Hip x-ray: report reviewed, image reviewed ( images of the left hip were reviewed, no acute fractures or dislocations. There are mild osteoarthritic changes noted, this to include loss of the joint space) Lumbar AP/lateral x-ray: report reviewed, image reviewed ( images of the lumbar spine were reviewed. Multilevel lumbar spondylosis, there is multiple calcifications noted in the vasculature. Spondylolisthesis noted at L4-L5. There is some compression deformity noted at L1) Assessment and Plan Assessment: low back pain left lower extremity radiculopathy L1 vertebral body compression deformity multilevel lumbar spondylosis L4-L5 spondylolisthesis bilateral lower extremity weakness, left worse than right bilateral lower extremity multiple medical comorbidities Plan: I was able to discuss this case, this to to include both physical exam findings and imaging studies my attending Dr. Mendoza's and. No emergent orthopedic surgical intervention is recommended at this time would recommend conservative measures initially, this to include pain medication, anti-inflammatories, muscle relaxers, steroids and monitor for symptom relief could consider further imaging studies, this to include lumbar CT versus MRI pending patients symptoms. I would imagine that there is a level of both neuroforaminal and central canal stenosis in the lower lumbar spine DVT prophylaxis per primary medical service weight-bear as tolerated, would recommend use of walker at all times to help with stability other medical specialty recommendations will continue to follow during hospital stay Time with Patient: Less than 30
[2023-12-27] MEDS: IPRATROPIUM-ALBUTEROL 3 ML NEB INHALATION SCH (12:01)
--- NOTE | 2023-12-27 12:54 | P.CRDCN ---
History of Present Illness Consult date: 12/27/23 Consult reason: congestive heart failure History of present illness: This is a 63-year-old male with a past medical history significant for coronary artery disease with previous stenting, ischemic cardiomyopathy, hypertension, hyperlipidemia, nicotine dependence, former alcohol abuse, chronic hypoxic respiratory failure on home O2 at 4 L. Patient has not followed in the office since 2015, however at that time he saw Dr. Soni. We have been asked to see the patient in consultation for CHF. Patient complains that he can not make it to any doctor appointments because he has to get a ride and also because he can walk due to pain and numbness in his legs. Patient presented with shortness of breathing, no significant LE edema. He complains of CP at 4 am last night on the left side, shooting through and lasting for few seconds and settles down. He has not been taking diuretics because he ran out and then because he forgets. He is smoking and down to few cigarettes per day. He uses edible marijuana. He also admits to using cocaine as it "numbs him out." He denies alcohol use. Blood pressure 150/89, heart rate 82, pulse ox 98% on 3 L nasal cannula, afebrile patient has been started on IV Lasix 60 mg every 12 hours. EKG reveals sinus mechanism left bundle branch block T wave inversion in V5 V6 Chest xray: Correlate for CHF with pulmonary vascular congestion. Small left greater than right pleural effusions with adjacent atelectasis and/or consolidation. CTA of the chest reveals no PE. Small to moderate-sized bilateral pleural effusions. Ultrasound duplex of the bilateral lower extremities negative for DVT. Laboratory studies: WBC 5.3, hemoglobin 12.4. D-dimer 0.69. Sodium 135, potassium 4.8, creatinine 0.92 and BUN 21. Troponin negative x 1. proBNP 22,200. TSH less than 0.015 with normal free T4 of 2.09. Urinalysis 3+ glucose. Urine drug screen positive for opiates, cocaine and marijuana Current home cardiac medications: Atorvastatin 40 mg at bedtime, Lasix 40 mg twice daily, Toprol XL 25 mg daily, Entresto 24-26 mg 1 tablet twice daily. Most recent echocardiogram obtained in March 2023 revealed ejection fraction 20 to 25%, mild to moderate TR, trace MR, and calcified aortic valve without significant stenosis Cardiac catheterization history: January 2016 revealing intermediate in-stent restenosis of the RCA, mild to moderate nonobstructive coronary artery disease involving the left coronary system, normal left ventricular systolic function. REVIEW OF SYSTEMS: At the time of my exam: CONSTITUTIONAL: Denies fever or chills. HEENT: Denies blurred vision, vision changes, or eye pain. Denies hemoptysis CARDIOVASCULAR: Denies chest pain. Reports orthopnea. Reports PND. Denies palpitations RESPIRATORY: Reports shortness of breath. Reports dyspnea on exertion. GASTROINTESTINAL: Denies abdominal pain. Denies nausea or vomiting. Reports abdominal bloating HEMATOLOGIC: Denies bleeding disorders. GENITOURINARY: Denies any blood in urine. SKIN: Denies pruitis. Denies rash. PHYSICAL EXAM: VITAL SIGNS: Reviewed. GENERAL: Well-developed in no acute distress. HEENT: Head is normocephalic. Pupils are equal, round. Sclerae anicteric. Mucous membranes of the mouth are moist. Neck supple. No JVD or thyromegaly LUNGS: Respirations even and unlabored. Lungs diminished at the bases with bibasilar crackles HEART: Regular rate and rhythm. S1 and S2 heard. Soft systolic murmur noted. ABDOMEN: Soft no significant ascites EXTREMITIES: Small superficial wounds that he scratches No clubbing or cyanosis. Peripheral pulses intact. Minimal bilateral lower extremity edema NEUROLOGIC: Awake and alert. Oriented x 3. ASSESSMENT: Acute on chronic heart failure with reduced ejection fraction, 25% Coronary artery disease with previous stenting of the RCA Mild to moderate nonobstructive CAD involving left coronary system Ischemic cardiomyopathy Chronic kidney disease Chronic hypoxic respiratory failure on home O2, 20/01 History of COPD Hypertension Hyperlipidemia Active tobacco use and dependence Marijuana use Cocaine use Former alcohol abuse, patient states he has not drank in 30 years Medication noncompliance Possible PAD PLAN: Resume patient's home cardiac medications Obtain 2D echocardiogram Continue IV Lasix 60 mg every 12 hours Daily weights, accurate I&O, and monitoring of kidney function Further recommendations pending patient course Nurse practitioner note has been reviewed by physician. Signing provider agrees with the documented findings, assessment, and plan of care. Past Medical History Past Medical History: Coronary Artery Disease (CAD), Heart Failure, COPD, CVA/TIA, Diabetes Mellitus, Eye Disorder, Hyperlipidemia, Hypertension, Liver Disease, Myocardial Infarction ([place]), Renal Disease Additional Past Medical History / Comment(s): Iischemic cardiomyopathy, PVCs, CVA 2019 with L sided weakness, chronic low back pain d/t vertebral fractures years ago as well as cervical pinched nerves, DDD, IDDM type II, neuropathy bilateral hands/legs and feet, pt states he can barely see with L eye and R eye vision is not very good/he is unsure why but believes it is d/t diabetes, liver disease/hepatitis C/ETOH abuse, recurrent ascities/paracentesis, recent R hip fracture d/t fall/recurrent falls. Last Myocardial Infarction Date:: July 2023 History of Any Multi-Drug Resistant Organisms: MRSA Date of last positivie culture/infection: 11/23/20 MDRO Source:: FOOT MRSA Past Surgical History: Cholecystectomy, Heart Catheterization, Heart Catheterization With Stent, Tonsillectomy Additional Past Surgical History / Comment(s): R heel I&D, colonoscopy. Past Anesthesia/Blood Transfusion Reactions: No Reported Reaction Date of Last Stent Placement:: 2011 Past Psychological History: Anxiety, Bipolar, Depression Additional Psychological History / Comment(s): Pt states he lives with his brother. Pt ambulates with a walker. He uses rides thru insurance. Case management/social workers are involved in pt's care Smoking Status: Current every day smoker Past Alcohol Use History: Abuse Additional Past Alcohol Use History / Comment(s): Pt started smoking in 1976. Pt states he has hx of heavy alcohol use but states none for years Past Drug Use History: Cocaine, Heroin, Marijuana Additional Drug Use History / Comment(s): Marijuana occasionally. pt stated he had ICE on 02/24/2020 - Past Family History Mother Family Medical History: Cancer Father Family Medical History: Coronary Artery Disease (CAD), Diabetes Mellitus, Hypertension Medications and Allergies Home Medications Medication Instructions Recorded Confirmed Type Atorvastatin [Lipitor] 40 mg PO HS 90 Days #90 tab 04/22/23 12/26/23 Rx Metoprolol Succinate (ER) [Toprol 25 mg PO DAILY 90 Days #90 tab 04/22/23 Rx XL] Sacubitril/Valsartan [Entresto 24 1 tab PO BID 11/07/23 12/26/23 History mg-26 mg Tablet] Ipratropium-Albuterol Nebulize 3 ml INHALATION RT-QID 30 Days 11/11/23 12/26/23 Rx [Duoneb 0.5 mg-3 mg/3 ml Soln] #120 each Albuterol Sulfate [Albuterol 2 puff PO RT-Q4H PRN 12/26/23 12/26/23 History Sulfate Hfa] Furosemide [Lasix] 40 mg PO BID 12/26/23 12/26/23 History LORazepam [Ativan] 0.5 mg PO DAILY PRN 12/26/23 12/26/23 History oxyCODONE HCL/ACETAMINOPHEN 1 tab PO QID 12/26/23 12/26/23 History [Percocet 10-325 mg] Allergies Allergy/AdvReac Type Severity Reaction Status Date / Time Penicillins Allergy Unknown Verified 12/26/23 14:42 Childhood metformin AdvReac Mild Nausea & Verified 12/26/23 14:42 Vomiting & Diarrhea Physical Exam Vitals: Vital Signs Temp Pulse Pulse Resp BP BP Pulse Ox 12/27/23 08:35 80 12/27/23 08:25 98 12/27/23 08:23 78 12/27/23 07:00 82 20 150/89 100 12/27/23 02:00 97.9 F 81 135/75 95 12/26/23 23:52 85 12/26/23 23:41 86 12/26/23 22:03 98.0 F 75 125/68 12/26/23 20:20 84 12/26/23 20:14 87 12/26/23 20:13 87 12/26/23 20:03 85 12/26/23 20:00 96.1 F L 75 145/80 100 12/26/23 17:49 97.8 F 75 17 175/94 100 12/26/23 17:00 75 18 164/79 98 12/26/23 16:14 78 12/26/23 16:06 81 97 12/26/23 16:00 76 24 151/57 97 12/26/23 14:24 79 18 151/88 99 12/26/23 13:37 86 18 174/107 96 12/26/23 12:48 98.0 F 100 36 H 182/81 99 Intake and Output 12/26/23 12/27/23 12/27/23 22:59 06:59 14:59 Intake Total 390 Balance 390 Intake: Oral 390 Other: Voiding Method Toilet Weight 68.039 kg 66 kg Results 12/27/23 03:44 12/27/23 03:44 Cardiac Enzymes 12/26/23 12/26/23 Range/Units 13:16 13:16 AST 39 (17-59) U/L Troponin I 0.029 (0.000-0.034) ng/mL Coagulation 12/26/23 Range/Units 13:16 PT 11.1 (10.0-12.5) sec APTT 26.9 (22.0-30.0) sec CBC 12/26/23 Range/Units 13:16 WBC 5.3 (3.8-10.6) k/uL RBC 4.25 L (4.30-5.90) m/uL Hgb 12.4 L (13.0-17.5) gm/dL Hct 39.6 (39.0-53.0) % Plt Count 183 (150-450) k/uL Comprehensive Metabolic Panel 12/26/23 Range/Units 13:16 Sodium 135 L (137-145) mmol/L Potassium 4.8 (3.5-5.1) mmol/L Chloride 108 H (98-107) mmol/L Carbon Dioxide 22 (22-30) mmol/L BUN 21 H (9-20) mg/dL Creatinine 0.92 (0.66-1.25) mg/dL Glucose 152 H (74-99) mg/dL Calcium 8.6 (8.4-10.2) mg/dL AST 39 (17-59) U/L ALT 33 (4-49) U/L Alkaline Phosphatase 121 (38-126) U/L Total Protein 6.0 L (6.3-8.2) g/dL Albumin 3.5 (3.5-5.0) g/dL Current Medications Generic Name Dose Route Start Last Admin Trade Name Freq PRN Reason Stop Dose Admin Acetaminophen 500 mg 12/27/23 06:47 Acetaminophen Tab 500 Mg Tab PO Q6HR PRN Fever and/ or Pain Albuterol/Ipratropium 3 ml 12/26/23 16:00 12/27/23 08:23 Ipratropium-Albuterol 3 Ml Neb INHALATION 3 ml RT-Q4H MIRLANDE Administration Atorvastatin Calcium 40 mg 12/26/23 21:00 12/26/23 20:12 Atorvastatin 40 Mg Tab PO 40 mg HS MIRLANDE Administration Dapagliflozin 5 mg 12/26/23 16:45 12/27/23 07:26 Dapagliflozin Propanediol 5 Mg Tablet PO 5 mg DAILY MIRLANDE Administration Formoterol Fumarate 20 mcg 12/26/23 20:00 12/27/23 08:22 Formoterol Fumarate 20 Mcg/2 Ml Nebu INHALATION 20 mcg RT-BID MIRLANDE Administration Furosemide 60 mg 12/26/23 21:00 12/26/23 20:21 Furosemide 10 Mg/Ml 4 Ml Vial IV 60 mg Q12HR MIRLANDE Administration Gabapentin 300 mg 12/26/23 16:45 12/27/23 07:26 Gabapentin 300 Mg Cap PO 300 mg TID MIRLANDE Administration Hydralazine HCl 10 mg 12/26/23 16:34 Hydralazine Hcl 20 Mg/Ml 1 Ml Vial IVP Q6HR PRN Blood Pressure - High Hydromorphone HCl 1 mg 12/26/23 16:32 12/27/23 04:27 Hydromorphone 1 Mg/Ml 1 Ml Syringe IVP 1 mg Q4HR PRN Administration Pain Insulin Aspart 0 unit 12/26/23 17:30 12/27/23 06:20 Insulin Aspart (Novolog) 100 Unit/Ml Vial SQ 9 unit ACHS MIRLANDE Administration Protocol Lorazepam 0.5 mg 12/26/23 15:04 Lorazepam 0.5 Mg Tab PO DAILY PRN Anxiety Metoprolol Succinate 25 mg 12/27/23 09:00 12/27/23 07:26 Metoprolol Succinate (Er) 25 Mg Tab.Er.24h PO 25 mg DAILY MIRLANDE Administration Naloxone HCl 0.2 mg 12/26/23 14:28 Naloxone 0.4 Mg/Ml 1 Ml Vial IV Q2M PRN Opioid Reversal Oxycodone/Acetaminophen 1 each 12/26/23 18:00 12/27/23 07:26 Oxycodone-Apap 10-325mg 1 Each Tab PO 1 each QID MIRLANDE Administration Sacubitril/Valsartan 1 each 12/26/23 21:00 12/27/23 07:26 Sacubitril/Valsartan 24 Mg-26 Mg Tablet PO 1 each BID MIRLANDE Administration Intake and Output 12/26/23 12/27/23 12/27/23 22:59 06:59 14:59 Intake Total 390 Balance 390 Intake: Oral 390 Other: Voiding Method Toilet Weight 68.039 kg 66 kg 12/26/23 13:16 12/26/23 13:16
[2023-12-27 13:05] LABS: Glucose,Whole Blood 323 mg/dL (70-110)
[2023-12-27] MEDS: methylPREDNISolone SOD SUCCI 40 MG/ML 1 ML VIAL IV SCH (13:38)
--- NOTE | 2023-12-27 15:55 | CA ---
Transthoracic Echo Report Name: Jacobo Hall Age: 63 Gender: M : 1960 Exam Date: 12/27/2023 13:42 Exam Location: [facility] Ht (in): 70 Wt (lb): 145 Ordering Physician: Maria Eugenia Menjivar Attending/Referring Phys: [id number], [facility] Abigail Jackson RDCS Procedure CPT: Indications: LVF Cardiac Hx: Technical Quality: Technically difficult study Contrast 1: Definity Total Dose (mL): 2 Contrast 2: Total Dose (mL): MEASUREMENTS (Male / Female) Normal Values 2D ECHO LV Diastolic Diameter PLAX 5.5 cm 4.2 - 5.9 / 3.9 - 5.3 cm LV Systolic Diameter PLAX 4.8 cm IVS Diastolic Thickness 1.4 cm 0.6 - 1.0 / 0.6 - 0.9 cm LVPW Diastolic Thickness 1.4 cm 0.6 - 1.0 / 0.6 - 0.9 cm LV Relative Wall Thickness 0.5 RV Internal Dim ED PLAX 3.5 cm LVOT Diameter 2.4 cm LA Systolic Diameter LX 4.5 cm 3.0 - 4.0 / 2.7 - 3.8 cm LV Diastolic Volume MOD BP 137.7 cm??? 67 - 155 / 56 - 104 cm??? LV Systolic Volume MOD BP 88.7 cm??? 22 - 58 / 19 - 49 cm??? LV Ejection Fraction MOD BP 35.5 % >= 55 % LV Cardiac Index MOD BP 2396.1 cm???/min???m??? LV Diastolic Volume MOD 4C 143.0 cm??? LV Systolic Volume MOD 4C 95.7 cm??? LV Ejection Fraction MOD 4C 33.1 % LV Cardiac Index MOD 4C 2317.3 cm???/min???m??? LV Diastolic Length 4C 9.3 cm LV Systolic Length 4C 8.5 cm LV Diastolic Volume MOD 2C 122.3 cm??? LV Systolic Volume MOD 2C 79.1 cm??? LV Ejection Fraction MOD 2C 35.3 % LV Cardiac Index MOD 2C 2115.9 cm???/min???m??? LV Diastolic Length 2C 8.5 cm LV Systolic Length 2C 8.1 cm LA Volume 90.8 cm??? 18 - 58 / 22 - 52 cm??? LA Volume Index 50.5 cm???/m??? 16 - 28 cm???/m??? M-MODE Aortic Root Diameter MM 2.9 cm AV Cusp Separation MM 1.4 cm DOPPLER AV Peak Velocity 199.9 cm/s AV Peak Gradient 16.0 mmHg AV Mean Velocity 108.7 cm/s AV Mean Gradient 6.1 mmHg AV Velocity Time Integral 31.0 cm MV Area PHT 3.5 cm??? Mitral E Point Velocity 78.9 cm/s Mitral A Point Velocity 63.6 cm/s Mitral E to A Ratio 1.2 MV Deceleration Time 219.8 ms TR Peak Velocity 285.2 cm/s TR Peak Gradient 32.5 mmHg Right Ventricular Systolic Press 37.5 mmHg FINDINGS Left Ventricle Left ventricular ejection fraction is estimated at 25-30 %. Moderately increased septal wall thickness. Severely increased left ventricular systolic volume. Moderately decreased left ventricular ejection fraction. Global left ventricular hypokinesis. Right Ventricle Mild right ventricular dilatation. Mild pulmonary hypertension. Right Atrium Normal right atrial size. No right atrial thrombus or mass seen. Left Atrium Mildly increased left atrial diameter. Severely increased left atrial volume. Mildly increased left atrial area. Mitral Valve Structurally normal mitral valve. No evidence for mitral valve prolapse. No mitral stenosis. Trace mitral regurgitation. Aortic Valve Trileaflet aortic valve. Thickened aortic valve without stenosis. Tricuspid Valve Structurally normal tricuspid valve. Trace to mild tricuspid regurgitation. Pulmonic Valve Structurally normal pulmonic valve. Trace pulmonic regurgitation. Pericardium Small pericardial effusion. Left pleural effusion. Aorta Normal size aortic root and proximal ascending aorta. CONCLUSIONS Left ventricular ejection fraction 25-30% Moderate to severe increased left ventricular wall thickness RVSP 37 Laterally dilated left atrium Trace mitral regurgitation Trace to mild tricuspid regurgitation Small pericardial effusion without Med Left pleural effusion noted Previewed by: Dr. Prasad Siegel DO (Electronically Signed) Final Date: 27 December 2023 15:54
[2023-12-27] MEDS: GABAPENTIN 300 MG CAP PO SCH (16:00)
[2023-12-27 17:16] LABS: Glucose,Whole Blood 176 mg/dL (70-110)
--- NOTE | 2023-12-27 20:28 | P.CN ---
Psychiatric Consult - . Consult date: 12/27/23 Consult:: 12/27/23 20:10 IDENTIFYING DATA: This patient is a Single unemployed 63-year-old male REASON FOR REFERRAL: Psychiatry was consulted for Depression HISTORY OF PRESENT ILLNESS: The patient presented to the hospital due to CHF exacerbation secondary to medication noncompliance. While in the ED, patient reported that he wants to sleep and never wake up. He did not express any suicidal ideation with plan Patient was seen bedside this afternoon. He reports a long history of struggle with medical issues. He states that he has been feeling tired of his numerous health issues including liver, kidney, heart problems. However, he is hoping to get placed in a better living situation including potentially a group home. Patient is future oriented and would like to move out of his brother's home. He states that his brother and brother's use cocaine on a daily basis. Patient himself reports having struggled with numerous substances including alcohol, heroin in the past. He states that he had been sober from alcohol for the past 10 years and been sober from heroin for the past 6 years. Since residing with his brother, he has been using cocaine twice a week and cannabis 2-3 times a week. He states that his mood has been "terrible" due to living with his brother who have not been providing him with necessary comforts including a proper bed. However, he says he loves his brother and enjoyed being near him. He states that due to his health conditions, he has trouble sleeping, low energy. However, he states that "I'm her nice person" and believes that he would like a better life perhaps living in a group home. He denies thoughts of worthlessness or guilt or hopelessness. He states he was told 4 years ago that he meets criteria for hospice but is surprised that he has continues to live on to this daily. He states that he is [employer] and prays daily and views life to be the "biggest gift God has given me". He vehemently denies active suicidal ideation, intent, or plan. However, due to his ongoing health issues, he is tired of handling them and expressed it by saying that he would not mind falling asleep and never waking up. He states that he would never hurt himself because this is against his congregational beliefs. In psychiatric review of systems, patient admits to symptoms consistent with OCD including counting, having to reread everything when displayed on TV, and previously needing his cigarette to touch various parts of his mouth certain number of times in a certain order. At this time patient denies any active suicidal or homicidal ideations, intent or plan. Patient denies any auditory, visual hallucinations and denies any paranoia or delusions. Patient denies symptoms consistent with carlito. PAST PSYCHIATRIC HISTORY: Patient has a history of one psychiatric hospitalization in [place] due to overdosing on trazodone. He states that he had taken extra trazodone to try to help him sleep and that it was not an intent to attempt suicide. He denies other suicide attempts. Patient currently does not follow up with any outpatient mental health provider PAST MEDICAL HISTORY: Past Medical History: Coronary Artery Disease (CAD), Heart Failure, COPD, CVA/TIA, Diabetes Mellitus, Eye Disorder, Hyperlipidemia, Hypertension, Liver Disease, Myocardial Infarction (PR), Renal Disease Additional Past Medical History / Comment(s): Iischemic cardiomyopathy, PVCs, CVA 2019 with L sided weakness, chronic low back pain d/t vertebral fractures years ago as well as cervical pinched nerves, DDD, IDDM type II, neuropathy bilateral hands/legs and feet, pt states he can barely see with L eye and R eye vision is not very good/he is unsure why but believes it is d/t diabetes, liver disease/hepatitis C/ETOH abuse, recurrent ascities/paracentesis, recent R hip fracture d/t fall/recurrent falls. Last Myocardial Infarction Date:: October 2018 History of Any Multi-Drug Resistant Organisms: MRSA Date of last positivie culture/infection: 11/23/20 MDRO Source:: FOOT MRSA Past Surgical History: Cholecystectomy, Heart Catheterization, Heart Catheterization With Stent, Tonsillectomy Additional Past Surgical History / Comment(s): R heel I&D, colonoscopy. Past Anesthesia/Blood Transfusion Reactions: No Reported Reaction Date of Last Stent Placement:: 2011 Past Psychological History: Anxiety, Bipolar, Depression Smoking Status: Current every day smoker Past Alcohol Use History: None Reported Past Drug Use History: Marijuana ALLERGIES: as per EMR. CHEMICAL DEPENDENCY HISTORY: He admits to using cannabis edibles at 2- 3 times a week. He reports sobriety from alcohol for the past 10 years. He reports sobriety from heroin for past 6 years. He endorses using cocaine twice a week along with his brother. FAMILY PSYCHIATRIC/SUBSTANCE USE HISTORY: Father's side: everyone had anxiety SOCIAL HISTORY: Patient reports currently residing with his brother and brother's . He states he has 3 sons one of whom is in a care home. He states that the other 2 sons do not talk to him. He reports having been in a group home in the past. MENTAL STATUS EXAM: General Appearance: Patient appears to be stated age is alert, pleasant, and cooperative. Patient appears to have fair hygiene and grooming wearing hospital gown with good eye contact. Wearing O2 cannula Behavior: Patient is calmly lying in bed without any agitated behavior. Speech: Patient's speech is fluent and nonpressured. Explains his life in detail openly Mood/Affect: Patient reports their mood is "terrible", affect is congruent Suicidality/Homicidality: Patient denies having any suicidal or homicidal ideation intent or plan. Perceptions: Patient denies any visual hallucinations and denies any auditory hallucinations Though content/process: There is no evidence of any delusional thought content and thought process is linear and goal-directed. Memory and concentration: AOX3, grossly intact for the purposes of this session. Can spell "WORLD" backwards Judgment and insight: Good IMPRESSIONS: Mood disorder due to general medical condition OCD Cocaine use disorder Cannabis use disorder Alcohol use disorder, in sustained remission Opioid use disorder, in sustained remission PLAN: -At this time patient DOES NOT meet criteria for inpatient psychiatric admission. -Would recommend the following medication changes/additions: Start Remeron 15 mg QHS for mood and sleep -color worker to provide patient with outpatient mental health/psychiatry resources for appropriate follow up upon discharge -Defer placement to primary team but would suggest considering assessing for group home placement -Brand Marketing Coordinator spoke with patient about substance abuse and the harmful effects on medical and mental health, patient verbally understood and agreed. -Discussed risks, side effects, and alternatives with patient. Patient agreed to about plan -Communicated plan to patient's nurse -Psychiatry will sign off at this time -Please contact with any questions.
[2023-12-27 20:36] LABS: Glucose,Whole Blood 310 mg/dL (70-110)
[2023-12-27] MEDS: MIRTAZAPINE 15 MG TAB PO SCH (20:58)
[2023-12-28 06:23] LABS: Glucose,Whole Blood 415 mg/dL (70-110)
[2023-12-28] MEDS ORDERED: DEXTROSE 50% SYRINGE 50 ML IVP PRN ×2 (06:50)
[2023-12-28] MEDS: INSULIN ASPART (NovoLOG) 100 UNIT/ML VIAL SQ ONE (06:58)
--- NOTE | 2023-12-28 11:10 | P.PN ---
Subjective Progress Note Date: 12/28/23 Principal diagnosis: Low back pain, left lower extremity radiculopathy Patient was evaluated today at bedside, he is resting in his hospital bed. Patient seems like the left lower extremity is doing a little better today. He now is noticing some discomfort in the right lower extremity. When discussing his previous symptoms, he did admit to me today that he has had multiple instances of bowel incontinence prior to coming into the hospital. Patient has not had patient also admits to previous issues with urinary retention bowel incontinence since being in the hospital. She did not state on his initial exam. Currently denies any headaches, lightheadedness, chest pain or shortness of breath. Objective - Vital Signs Vital signs: Vital Signs Temp 97.7 F 12/28/23 07:00 Pulse 69 12/28/23 07:00 Resp 18 12/28/23 07:00 BP 123/68 12/28/23 07:00 Pulse Ox 97 12/28/23 07:00 FiO2 Intake & Output 12/27/23 12/28/23 12/28/23 18:59 06:59 18:59 Intake Total 340 236 Output Total 700 Balance 340 -700 236 Weight 62.5 kg Intake: Oral 340 236 Output: Urine 700 Other: Voiding Method Toilet # Voids 3 - Exam Gen: AOx3, NAD VSS stable at this time Integument: No open lesions, sores, areas of erythema noted in the cervical, thoracic or lumbar spine There are multiple scabs and small lesions noted in the bilateral lower extremities, he does have chronic skin discoloration in the lower extremities bilaterally Palpation: patient is nontender with palpation about the paraspinal and midline region of the cervical and thoracic spine. 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 4-/5 strength appreciated in the right lower extremity with hip flexion, knee extension, knee flexion, plantarflexion, dorsiflexion, EHL, FHL 4-/5 strength appreciated in the left lower extremity with hip flexion, 4-/5 strength appreciated in the left lower extremity with knee extension, knee flexion, plantarflexion, dorsiflexion, EHL, FHL Reflexes: 2/4 in all UE and LE negative Nanda's bilaterally negative clonus bilaterally Special Test: logroll maneuver of the bilateral lower extremities reproduces no groin pain negative straight leg raise right lower extremity, positive straight leg raise left lower extremity - Labs CBC & Chem 7: 12/27/23 03:44 12/27/23 03:44 Labs: Abnormal Lab Results - Last 24 Hours (Table) 12/27/23 12/27/23 12/27/23 Range/Units 13:02 17:14 20:31 POC Glucose (mg/dL) 323 H 176 H 310 H (70-110) mg/dL 12/28/23 Range/Units 06:22 POC Glucose (mg/dL) 415 H (70-110) mg/dL Microbiology - Last 24 Hours (Table) 12/26/23 16:47 Blood Culture Gram Stain - Preliminary Blood Blood Culture - Preliminary Streptococcus viridans group Molecular ID Assessment and Plan Assessment: low back pain left lower extremity radiculopathy L1 vertebral body compression deformity multilevel lumbar spondylosis L4-L5 spondylolisthesis bilateral lower extremity weakness, left worse than right bilateral lower extremity multiple medical comorbidities Plan: MRI of the lumbar spine without contrast ordered Continue conservative measures, this to include pain medication, anti-inflammatories, muscle relaxers, steroids and monitor for symptom relief DVT prophylaxis per primary medical service Weight-bear as tolerated, would recommend use of walker at all times to help with stability Other medical specialty recommendations Monitor for urinary retention and issues with bowel incontinence. Patient has multiple medical issues and is being followed by a number of specialties at this time. Further recommendations to follow Time with Patient: Less than 30
[2023-12-28 12:18] LABS: Glucose,Whole Blood 211 mg/dL (70-110)
--- NOTE | 2023-12-28 12:39 | P.PN ---
Subjective Progress Note Date: 12/28/23 Consult reason: congestive heart failure History of present illness: This is a 63-year-old male with a past medical history significant for coronary artery disease with previous stenting, ischemic cardiomyopathy, hypertension, hyperlipidemia, nicotine dependence, former alcohol abuse, chronic hypoxic respiratory failure on home O2 at 4 L. Patient has not followed in the office since 2015, however at that time he saw Dr. Soni. We have been asked to see the patient in consultation for CHF. Patient complains that he can not make it to any doctor appointments because he has to get a ride and also because he can walk due to pain and numbness in his legs. Patient presented with shortness of breathing, no significant LE edema. He complains of CP at 4 am last night on the left side, shooting through and lasting for few seconds and settles down. He has not been taking diuretics because he ran out and then because he forgets. He is smoking and down to few cigarettes per day. He uses edible marijuana. He also admits to using cocaine as it "numbs me out." He denies alcohol use. Blood pressure 150/89, heart rate 82, pulse ox 98% on 3 L nasal cannula, afebrile patient has been started on IV Lasix 60 mg every 12 hours. EKG reveals sinus mechanism left bundle branch block T wave inversion in V5 V6 Chest xray: Correlate for CHF with pulmonary vascular congestion. Small left greater than right pleural effusions with adjacent atelectasis and/or consolidation. CTA of the chest reveals no PE. Small to moderate-sized bilateral pleural effusions. Ultrasound duplex of the bilateral lower extremities negative for DVT. Laboratory studies: WBC 5.3, hemoglobin 12.4. D-dimer 0.69. Sodium 135, potassium 4.8, creatinine 0.92 and BUN 21. Troponin negative x 1. proBNP 22,200. TSH less than 0.015 with normal free T4 of 2.09. Urinalysis 3+ glucos e. Urine drug screen positive for opiates, cocaine and marijuana Current home cardiac medications: Atorvastatin 40 mg at bedtime, Lasix 40 mg twice daily, Toprol XL 25 mg daily, Entresto 24-26 mg 1 tablet twice daily. Most recent echocardiogram obtained in March 2023 revealed ejection fraction 20 to 25%, mild to moderate TR, trace MR, and calcified aortic valve without significant stenosis Cardiac catheterization history: January 2016 revealing intermediate in-stent restenosis of the RCA, mild to moderate nonobstructive coronary artery disease involving the left coronary system, normal left ventricular systolic function. 12/27 Patient is seen and examined. He has been maintained on IV Lasix 60 mg every 12 hours. Blood pressure 123/68, heart rate 69, pulse ox 97% on 2 L nasal cannula. Has been afebrile. Weight documented is down 3-1/2 kg. Results of echocardiogram reviewed with the patient. Patient states he does not feel well. Patient complains of headache that won't go away. He also complains of shaking and chills. He is urinating well. Patient is concerned that he is on a fluid restriction and is too strict. Agreed that we would increase fluid restriction to 2000. Echocardiogram reveals EF of 25 to 30%, moderate to severe increased left ventricular wall thickness. RVSP 37. Trace MR, trace to mild TR, small pericardial effusion, left pleural effusion. PHYSICAL EXAM: VITAL SIGNS: Reviewed. GENERAL: Well-developed in no acute distress. HEENT: Head is normocephalic. Pupils are equal, round. Sclerae anicteric. Mucous membranes of the mouth are moist. Neck supple. No JVD or thyromegaly LUNGS: Respirations even and unlabored. Lungs diminished at the bases with bibasilar crackles HEART: Regular rate and rhythm. S1 and S2 heard. Soft systolic murmur noted. ABDOMEN: Soft no significant ascites EXTREMITIES: Small superficial wounds that he scratches No clubbing or cyanosis. Peripheral pulses intact. Minimal bilateral lower extremity edema NEUROLOGIC: Awake and alert. Oriented x 3. ASSESSMENT: Acute on chronic heart failure with reduced ejection fraction, 25% Coronary artery disease with previous stenting of the RCA Mild to moderate nonobstructive CAD involving left coronary system Ischemic cardiomyopathy Chronic kidney disease Chronic hypoxic respiratory failure on home O2, 20/01 History of COPD Hypertension Hyperlipidemia Active tobacco use and dependence Marijuana use Cocaine use Former alcohol abuse, patient states he has not drank in 30 years Medication noncompliance, patient stopped taking diuretics at home Possible PAD PLAN: Continue patient's home cardiac medications Continue IV Lasix 60 mg every 12 hours for another 24 hours and then transferred to oral Lasix 40 mg twice daily Daily weights, accurate I&O, and monitoring of kidney function Increase fluid restriction to 2000 mL Further recommendations pending patient course Nurse practitioner note has been reviewed by physician. Signing provider agrees with the documented findings, assessment, and plan of care. Objective - Vital Signs Vital signs: Vital Signs Temp 97.7 F 12/28/23 07:00 Pulse 69 12/28/23 07:00 Resp 18 12/28/23 07:00 BP 123/68 12/28/23 07:00 Pulse Ox 97 12/28/23 07:00 FiO2 Intake & Output 12/27/23 12/28/23 12/28/23 18:59 06:59 18:59 Intake Total 340 Output Total 700 Balance 340 -700 Weight 62.5 kg Intake: Oral 340 Output: Urine 700 Other: Voiding Method Toilet # Voids 3 - Labs CBC & Chem 7: 12/27/23 03:44 12/27/23 03:44 Labs: Abnormal Lab Results - Last 24 Hours (Table) 12/27/23 12/27/23 12/27/23 Range/Units 03:44 03:44 13:02 WBC 3.69 L (4.50-10.00) X 10*3/uL RBC 3.49 L (4.40-5.60) X 10*6/uL Hgb 10.0 L (13.0-17.0) g/dL Hct 31.9 L (39.6-50.0) % MCHC 31.3 L (32.0-37.0) g/dL Plt Count 138 L (140-440) X 10*3/uL Lymphocytes # 0.48 L (0.90-5.00) X 10*3/uL BUN 30.0 H (9.0-27.0) mg/dL BUN/Creatinine Ratio 23.08 H (12.00-20.00) Ratio Glucose 309 H (70-110) mg/dL POC Glucose (mg/dL) 323 H (70-110) mg/dL Calcium 7.9 L (8.7-10.3) mg/dL 12/27/23 12/27/23 12/28/23 Range/Units 17:14 20:31 06:22 WBC (4.50-10.00) X 10*3/uL RBC (4.40-5.60) X 10*6/uL Hgb (13.0-17.0) g/dL Hct (39.6-50.0) % MCHC (32.0-37.0) g/dL Plt Count (140-440) X 10*3/uL Lymphocytes # (0.90-5.00) X 10*3/uL BUN (9.0-27.0) mg/dL BUN/Creatinine Ratio (12.00-20.00) Ratio Glucose (70-110) mg/dL POC Glucose (mg/dL) 176 H 310 H 415 H (70-110) mg/dL Calcium (8.7-10.3) mg/dL Microbiology - Last 24 Hours (Table) 12/26/23 16:47 Blood Culture Gram Stain - Preliminary Blood Blood Culture - Preliminary Molecular ID
[2023-12-28 17:06] LABS: Glucose,Whole Blood 330 mg/dL (70-110)
[2023-12-28 20:19] LABS: Glucose,Whole Blood 128 mg/dL (70-110)
[2023-12-29 05:27] LABS: Glucose,Whole Blood >600 mg/dL (70-110)
[2023-12-29 06:22] LABS: Glucose,Whole Blood 541 mg/dL (70-110)
[2023-12-29 06:53] LABS: Glucose 533 mg/dL (74-99)
--- NOTE | 2023-12-29 07:04 | PN ---
PROGRESS NOTE Came in with shortness of breath, altered mental status, COPD. Saturating 97-96 on 2 L, temp 97.7, pulse 60s to 80s, respiratory rate 16-18. OBJECTIVE: CARDIOVASCULAR: S1, S2. LUNGS: Transmitted upper sounds. HEMATOLOGY: Negative Homans. PSYCH: Fair mood and affect. HEENT: Pupils equal, round, reactive. Sugars are 200 to 300s. Blood cultures, strep viridans group. Molecular ID. Waiting for repeat blood cultures. Discussed with Dr. Starkey. Bacteremia, unclear etiology where it is coming from, being on broad-spectrum antibiotics. Rocephin was started 2 g daily. Consult for depression. Prognosis guarded. MMODL / IJN: [id number] /
[2023-12-29] MEDS: INSULIN REGULAR 100 UNIT/ML VIAL (IM/SQ) SQ ONE (07:08)
[2023-12-29 08:11] LABS: Glucose,Whole Blood 426 mg/dL (70-110)
[2023-12-29] MEDS: FUROSEMIDE 40 MG TAB PO SCH (08:44)
[2023-12-29] MEDS: ASPIRIN 81 MG PO SCH (08:44)
[2023-12-29] MEDS: DAPAGLIFLOZIN PROPANEDIOL 10 MG TABLET PO SCH (08:44)
[2023-12-29] MEDS: SPIRONOLACTONE 25 MG TAB PO SCH (08:44)
[2023-12-29 08:46] LABS: African American GFR (CKD) 50 (>60 ml/min/1.73 sqM); Anion Gap 11 mmol/L; Blood Urea Nitrogen 59 mg/dL (9-20); Calcium 8.2 mg/dL (8.4-10.2); Carbon Dioxide 20 mmol/L (22-30); Chloride 101 mmol/L (98-107); Non-African American GFR(CKD) 43 (>60 ml/min/1.73 sqM); Potassium 4.7 mmol/L (3.5-5.1); Sodium 132 mmol/L (137-145)
[2023-12-29] MEDS: SACUBITRIL/VALSARTAN 49 MG-51 MG TABLET PO SCH (08:53)
--- NOTE | 2023-12-29 10:03 | P.PN ---
Subjective HISTORY OF PRESENT ILLNESS: This is a 63-year-old male with a past medical history significant for coronary artery disease with previous stenting, ischemic cardiomyopathy, hypertension, hyperlipidemia, nicotine dependence, former alcohol abuse, chronic hypoxic respiratory failure on home O2 at 4 L. Patient has not followed in the office since 2015, however at that time he saw Dr. Soni. We have been asked to see the patient in consultation for CHF. Patient complains that he can not make it to any doctor appointments because he has to get a ride and also because he can walk due to pain and numbness in his legs. Patient presented with shortness of breathing, no significant LE edema. He complains of CP at 4 am last night on the left side, shooting through and lasting for few seconds and settles down. He has not been taking diuretics because he ran out and then because he forgets. He is smoking and down to few cigarettes per day. He uses edible marijuana. He also admits to using cocaine as it "numbs me out." He denies alcohol use. Blood pressure 150/89, heart rate 82, pulse ox 98% on 3 L nasal cannula, afebrile patient has been started on IV Lasix 60 mg every 12 hours. EKG reveals sinus mechanism left bundle branch block T wave inversion in V5 V6 Chest xray: Correlate for CHF with pulmonary vascular congestion. Small left gr eater than right pleural effusions with adjacent atelectasis and/or consolidation. CTA of the chest reveals no PE. Small to moderate-sized bilateral pleural effusions. Ultrasound duplex of the bilateral lower extremities negative for DVT. Laboratory studies: WBC 5.3, hemoglobin 12.4. D-dimer 0.69. Sodium 135, potassium 4.8, creatinine 0.92 and BUN 21. Troponin negative x 1. proBNP 22,200. TSH less than 0.015 with normal free T4 of 2.09. Urinalysis 3+ glucose. Urine drug screen positive for opiates, cocaine and marijuana Current home cardiac medications: Atorvastatin 40 mg at bedtime, Lasix 40 mg twice daily, Toprol XL 25 mg daily, Entresto 24-26 mg 1 tablet twice daily. Most recent echocardiogram obtained in March 2023 revealed ejection fraction 20 to 25%, mild to moderate TR, trace MR, and calcified aortic valve without significant stenosis Cardiac catheterization history: January 2016 revealing intermediate in-stent restenosis of the RCA, mild to moderate nonobstructive coronary artery disease involving the left coronary system, normal left ventricular systolic function. 12/27 Patient is seen and examined. He has been maintained on IV Lasix 60 mg every 12 hours. Blood pressure 123/68, heart rate 69, pulse ox 97% on 2 L nasal cannula. Has been afebrile. Weight documented is down 3-1/2 kg. Results of echocardiogram reviewed with the patient. Patient states he does not feel well. Patient complains of headache that won't go away. He also complains of shaking and chills. He is urinating well. Patient is concerned that he is on a fluid restriction and is too strict. Agreed that we would increase fluid restriction to 1999. Echocardiogram reveals EF of 25 to 30%, moderate to severe increased left ventricular wall thickness. RVSP 37. Trace MR, trace to mild TR, small pericardial effusion, left pleural effusion. 12/29/2023 Patient examined this morning. He is sitting on the side of the bed eating breakfast. He denies chest pain or pressure. Denies SOB. He has been transition to oral diuretics. Blood pressure is high this morning with a reading of 181/106 and 172/96. Patient does report he has not been compliant with his medications at home and states his medications that he is supposed to take twice a day he usually only takes once a day. PHYSICAL EXAM: VITAL SIGNS: Reviewed. GENERAL: Well-developed in no acute distress. NECK: Supple. No JVD or thyromegaly LUNGS: Respirations even and unlabored. Lungs essentially clear to auscultation bilaterally. HEART: Regular rate and rhythm. S1 and S2 heard. EXTREMITIES: Normal range of motion. No clubbing or cyanosis. Peripheral pulses intact. Trace bilateral lower extremity edema ASSESSMENT: Acute on chronic heart failure with reduced ejection fraction, 25% Coronary artery disease with previous stenting of the RCA Mild to moderate nonobstructive CAD involving left coronary system Ischemic cardiomyopathy, EF 25-30 Chronic kidney disease Chronic hypoxic respiratory failure on home O2, 20/01 History of COPD Hypertension, uncontrolled this morning Hyperlipidemia Nicotine dependence Marijuana use Cocaine use Former alcohol abuse, patient states he has not drank in 30 years Medication noncompliance PLAN: Continue oral diuretics Increase Entresto to 49-51 mg twice a day Increase Farxiga to 10mg daily Add Aldactone 25 mg daily Add aspirin 81 mg daily Continue to monitor blood pressure Medication compliance discussed with patient Patient is currently stable from a cardiac standpoint. Discharge per medicine. Patient is to follow-up with Dr. Soni post discharge Nurse practitioner note has been reviewed by physician. Signing provider agrees with the documented findings, assessment, and plan of care documented by SAFETY TRAINER as a scribe. Objective - Vital Signs Vital signs: Vital Signs Temp 97.4 F L 12/29/23 07:00 Pulse 101 H 12/29/23 08:13 Resp 20 12/29/23 07:00 BP 172/96 12/29/23 08:13 Pulse Ox 97 12/29/23 07:00 FiO2 Intake & Output 12/28/23 12/29/23 12/29/23 18:59 06:59 18:59 Intake Total 2130 750 Output Total 1100 1200 Balance 1030 -1200 750 Weight 67.4 kg Intake: Oral 2130 750 Output: Urine 1100 1200 Other: Voiding Method Toilet # Voids 1 - Labs CBC & Chem 7: 12/27/23 03:44 12/29/23 06:19 Labs: Abnormal Lab Results - Last 24 Hours (Table) 12/28/23 12/28/23 12/28/23 Range/Units 12:17 17:04 20:18 Sodium (137-145) mmol/L Carbon Dioxide (22-30) mmol/L BUN (9-20) mg/dL Creatinine (0.66-1.25) mg/dL Glucose (74-99) mg/dL POC Glucose (mg/dL) 211 H 330 H 128 H (70-110) mg/dL Hemoglobin A1c (<=6.0) % Calcium (8.4-10.2) mg/dL 12/29/23 12/29/23 12/29/23 Range/Units 02:55 05:26 06:19 Sodium 132 L (137-145) mmol/L Carbon Dioxide 20 L (22-30) mmol/L BUN 59 H (9-20) mg/dL Creatinine 1.66 H (0.66-1.25) mg/dL Glucose 533 H* (74-99) mg/dL POC Glucose (mg/dL) >600 H* (70-110) mg/dL Hemoglobin A1c 8.0 H (<=6.0) % Calcium 8.2 L (8.4-10.2) mg/dL 12/29/23 12/29/23 Range/Units 06:20 08:10 Sodium (137-145) mmol/L Carbon Dioxide (22-30) mmol/L BUN (9-20) mg/dL Creatinine (0.66-1.25) mg/dL Glucose (74-99) mg/dL POC Glucose (mg/dL) 541 H* 426 H (70-110) mg/dL Hemoglobin A1c (<=6.0) % Calcium (8.4-10.2) mg/dL Microbiology - Last 24 Hours (Table) 12/26/23 16:47 Blood Culture Gram Stain - Final Blood Blood Culture - Final Streptococcus viridans group Molecular ID
[2023-12-29 12:05] LABS: Glucose,Whole Blood 66 mg/dL (70-110)
[2023-12-29 12:23] LABS: Glucose,Whole Blood 77 mg/dL (70-110)
--- NOTE | 2023-12-29 14:48 | P.PN ---
Subjective Progress Note Date: 12/29/23 Principal diagnosis: Low back pain, left lower extremity radiculopathy Patient was evaluated today at bedside, he is resting in his hospital bed. Patient states that the legs are feeling okay at this time, he is noticing the numbness and tingling discomfort to the bilateral lower extremities. Patient is still waiting on the MRI of the lumbar spine. No acute issues with bowel incontinence or urinary incontinence. Currently denies any headaches, lightheadedness, chest pain or shortness of breath. Objective - Vital Signs Vital signs: Vital Signs Temp 98.2 F 12/29/23 14:33 Pulse 89 12/29/23 14:33 Resp 18 12/29/23 14:33 BP 124/74 12/29/23 14:33 Pulse Ox 99 12/29/23 14:33 FiO2 Intake & Output 12/28/23 12/29/23 12/29/23 18:59 06:59 18:59 Intake Total 2130 1270 Output Total 1100 1200 Balance 1030 -1200 1270 Weight 67.4 kg Intake: Oral 2130 1270 Output: Urine 1100 1200 Other: Voiding Method Toilet # Voids 1 - Exam Gen: AOx3, NAD VSS stable at this time Integument: No open lesions, sores, areas of erythema noted in the cervical, thoracic or lumbar spine There are multiple scabs and small lesions noted in the bilateral lower extremities, he does have chronic skin discoloration in the lower extremities bilaterally Palpation: patient is nontender with palpation about the paraspinal and midline region of the cervical and thoracic spine. He does demonstrate some discomfort to the lower lumbar left-sided paraspinal region ROM: full range of motion in all major muscle groups of the bilateral upper and lower extremities, there is no focal deficits appreciated Sensory Exam: Senory exam to light touch is intact C5-T1 Senosry exam to light touch is intact L2-S1 Motor: 4/5 strength appreciated in the bilateral upper extremities with shoulder elevation, shoulder abduction, elbow extension, elbow flexion, wrist extension, wrist flexion, biometrics specialist 4-/5 strength appreciated in the right lower extremity with hip flexion, knee extension, knee flexion, plantarflexion, dorsiflexion, EHL, FHL 4-/5 strength appreciated in the left lower extremity with hip flexion, 4-/5 s trength appreciated in the left lower extremity with knee extension, knee flexion, plantarflexion, dorsiflexion, EHL, FHL Reflexes: 2/4 in all UE and LE negative Nanda's bilaterally negative clonus bilaterally Special Test: logroll maneuver of the bilateral lower extremities reproduces no groin pain negative straight leg raise right lower extremity, positive straight leg raise left lower extremity - Labs CBC & Chem 7: 12/27/23 03:44 12/29/23 06:19 Labs: Abnormal Lab Results - Last 24 Hours (Table) 12/28/23 12/28/23 12/29/23 Range/Units 17:04 20:18 02:55 ESR (0-20) mm/Hr Sodium (137-145) mmol/L Carbon Dioxide (22-30) mmol/L BUN (9-20) mg/dL Creatinine (0.66-1.25) mg/dL Glucose (74-99) mg/dL POC Glucose (mg/dL) 330 H 128 H (70-110) mg/dL Hemoglobin A1c 8.0 H (<=6.0) % Calcium (8.4-10.2) mg/dL 12/29/23 12/29/23 12/29/23 Range/Units 02:55 05:26 06:19 ESR 22 H (0-20) mm/Hr Sodium 132 L (137-145) mmol/L Carbon Dioxide 20 L (22-30) mmol/L BUN 59 H (9-20) mg/dL Creatinine 1.66 H (0.66-1.25) mg/dL Glucose 533 H* (74-99) mg/dL POC Glucose (mg/dL) >600 H* (70-110) mg/dL Hemoglobin A1c (<=6.0) % Calcium 8.2 L (8.4-10.2) mg/dL 12/29/23 12/29/23 12/29/23 Range/Units 06:20 08:10 12:04 ESR (0-20) mm/Hr Sodium (137-145) mmol/L Carbon Dioxide (22-30) mmol/L BUN (9-20) mg/dL Creatinine (0.66-1.25) mg/dL Glucose (74-99) mg/dL POC Glucose (mg/dL) 541 H* 426 H 66 L (70-110) mg/dL Hemoglobin A1c (<=6.0) % Calcium (8.4-10.2) mg/dL Microbiology - Last 24 Hours (Table) 12/26/23 16:47 Blood Culture Gram Stain - Final Blood Blood Culture - Final Streptococcus viridans group Molecular ID Assessment and Plan Assessment: low back pain left lower extremity radiculopathy L1 vertebral body compression deformity multilevel lumbar spondylosis L4-L5 spondylolisthesis bilateral lower extremity weakness, left worse than right bilateral lower extremity multiple medical comorbidities Plan: Await MRI of the lumbar spine Continue conservative measures, this to include pain medication, anti- inflammatories, muscle relaxers, steroids and monitor for symptom relief DVT prophylaxis per primary medical service Weight-bear as tolerated, would recommend use of walker at all times to help with stability Other medical specialty recommendations Monitor for urinary retention and issues with bowel incontinence. Further recommendations to follow Time with Patient: Less than 30
[2023-12-29 16:18] LABS: Glucose,Whole Blood 303 mg/dL (70-110)
--- NOTE | 2023-12-29 16:24 | MR ---
EXAMINATION TYPE: MR lumbar spine wo con DATE OF EXAM: 12/29/2023 4:15 PM CLINICAL INDICATION:Male, 63 years old with history of lower extremity radiculopathy, bowl incontinen ce; PHH, Lower extremity radiculopathy, bowel incontinence COMPARISON: 12/27/2023. TECHNIQUE: Multi planar, multi sequence imaging was performed utilizing: T1-weighted, T2-weighted, a nd turbo inversion recovery imaging of the lumbar spine. IV Contrast: cc . (None if empty) FINDINGS: Alignment: The lumbar vertebral bodies have preserved heights and alignment. Cord: The conus medullaris and the distal spinal cord appear unremarkable with regards to their signa l intensity and morphology. Bones/Discs: Mild degeneration changes throughout the spine with osteophyte formation and facet joint arthropathy. Intervertebral disc signal is maintained. Scattered mild inversion recovery signal thro ughout the vertebral bodies likely on a degenerative basis. T12-L1: No evidence of significant spinal canal stenosis or neural foraminal stenosis. L1-L2: No evidence of significant spinal canal stenosis or neural foraminal stenosis. L2-L3: Disc bulge and facet joint arthropathy result in mild spinal canal and mild bilateral neural f oraminal stenosis. L3-L4: Disc bulge and facet joint arthropathy result in mild spinal canal and mild to moderate bilate ral neural foraminal stenosis. L4-L5: Disc bulge and facet joint arthropathy result in mild spinal canal and severe bilateral neural foraminal stenosis. L5-S1: The disc has a rounded posterior morphology without significant spinal canal stenosis. Facet j oint arthropathy with mild bilateral neural foraminal stenosis. No significant spinal canal or neural foraminal stenosis in the remainder of the visualized levels. Other findings: None. IMPRESSION: 1. No evidence for cauda equina. 2. No definitive evidence of disc herniation or significant spinal canal stenosis. 3. [id number] disc degeneration with associated osteoarthritic changes with neural foraminal s tenosis worse at L4-L5 with severe bilateral neural foraminal stenosis.
[2023-12-29 17:35] LABS: Glucose,Whole Blood 314 mg/dL (70-110)
--- NOTE | 2023-12-29 18:20 | P.CONS ---
History of Present Illness - Reason for Consult Consult date: 12/28/23 Bacteremia Requesting physician: Eric Loyola - Chief Complaint Shortness of breath x few days - History of Present Illness Patient is a 63-year-old male with a past medical history significant for coronary artery disease heart failure COPD CVA TIA diabetes mellitus hypertension hyperlipidemia and liver disorder presenting to the hospital 2 days ago for evaluation of increasing shortness of breath patient mention he required increasing amount of oxygen at home and apparently the patient stopped taking his diuretic 3 days before his symptoms started getting worse as he was tried of being constantly ill patient denies high-grade fever or any chills he denies having any chest pain or cough less more than usual for him or any sputum production no nausea vomiting no abdominal pain no diarrhea did have a chronic back pain but denies any worsening back pain patient on presentation to the hospital was afebrile and no fever have recorded subsequently she was not tachycardic or hypotensive no O2 sats on room air documented patient did have a white count of 5.3 creatinine has been 0.9 to lower exam is normal CRP is normal procalcitonin 0.06 urine has been negative urine toxin was positive for opiates tricyclic's and cocaine blood cultures came back positive for Streptococcus viridans patient be started on Rocephin by admitting physician jose singh was consulted today for further management of antibiotic therapy Review of Systems Positive point and negatives has been mentioned in the HPI, complete review of systems was performed and all other systems are negative Past Medical History Past Medical History: Coronary Artery Disease (CAD), Heart Failure, COPD, CVA/TIA, Diabetes Mellitus, Eye Disorder, Hyperlipidemia, Hypertension, Liver Disease, Myocardial Infarction (DC), Renal Disease Additional Past Medical History / Comment(s): Iischemic cardiomyopathy, PVCs, CVA 2019 with L sided weakness, chronic low back pain d/t vertebral fractures y ears ago as well as cervical pinched nerves, DDD, IDDM type II, neuropathy bilateral hands/legs and feet, pt states he can barely see with L eye and R eye vision is not very good/he is unsure why but believes it is d/t diabetes, liver disease/hepatitis C/ETOH abuse, recurrent ascities/paracentesis, recent R hip fracture d/t fall/recurrent falls. Last Myocardial Infarction Date:: July 2023 History of Any Multi-Drug Resistant Organisms: MRSA Year Discovered:: 11/23/20 MDRO Source:: FOOT MRSA Past Surgical History: Cholecystectomy, Heart Catheterization, Heart Cathete rization With Stent, Tonsillectomy Additional Past Surgical History / Comment(s): R heel I&D, colonoscopy. Past Anesthesia/Blood Transfusion Reactions: No Reported Reaction Date of Last Stent Placement:: 2011 Past Psychological History: Anxiety, Bipolar, Depression Additional Psychological History / Comment(s): Pt states he lives with his brother. Pt ambulates with a walker. He uses rides thru insurance. Case management/social workers are involved in pt's care Smoking Status: Current every day smoker Past Alcohol Use History: Abuse Additional Past Alcohol Use History / Comment(s): Pt started smoking in 1976. Pt states he has hx of heavy alcohol use but states none for years Past Drug Use History: Cocaine, Heroin, Marijuana Additional Drug Use History / Comment(s): Marijuana occasionally. pt stated he had ICE on 02/24/2020 - Past Family History Mother Family Medical History: Cancer Father Family Medical History: Coronary Artery Disease (CAD), Diabetes Mellitus, Hypertension Medications and Allergies Home Medications Medication Instructions Recorded Confirmed Type Atorvastatin [Lipitor] 40 mg PO HS 90 Days #90 tab 04/22/23 12/26/23 Rx Metoprolol Succinate (ER) [Toprol 25 mg PO DAILY 90 Days #90 tab 04/22/23 12/26/23 Rx XL] Sacubitril/Valsartan [Entresto 24 1 tab PO BID 11/07/23 12/26/23 History mg-26 mg Tablet] Ipratropium-Albuterol Nebulize 3 ml INHALATION RT-QID 30 Days 11/11/23 12/26/23 Rx [Duoneb 0.5 mg-3 mg/3 ml Soln] #120 each Albuterol Sulfate [Albuterol 2 puff PO RT-Q4H PRN 12/26/23 12/26/23 History Sulfate Hfa] Furosemide [Lasix] 40 mg PO BID 12/26/23 12/26/23 History LORazepam [Ativan] 0.5 mg PO DAILY PRN 12/26/23 12/26/23 History oxyCODONE HCL/ACETAMINOPHEN 1 tab PO QID 12/26/23 12/26/23 History [Percocet 10-325 mg] Allergies Allergy/AdvReac Type Severity Reaction Status Date / Time Penicillins Allergy Unknown Verified 12/26/23 14:42 Childhood metformin AdvReac Mild Nausea & Verified 12/26/23 14:42 Vomiting & Diarrhea Physical Exam Vitals: Vital Signs Temp Pulse Pulse Resp BP Pulse Ox 12/28/23 14:00 82 12/28/23 12:31 82 12/28/23 12:25 96 12/28/23 12:22 85 12/28/23 08:00 69 12/28/23 07:00 97.7 F 69 18 123/68 97 12/28/23 02:00 97.5 F L 89 19 144/67 95 12/27/23 20:59 84 12/27/23 20:08 82 12/27/23 20:00 97.8 F 84 18 132/74 96 12/27/23 19:57 78 12/27/23 19:49 81 12/27/23 16:17 76 12/27/23 16:05 73 Intake and Output 12/28/23 12/28/23 12/28/23 06:59 14:59 22:59 Intake Total 1514 Output Total 700 100 Balance -700 1414 Intake: Oral 1514 Output: Urine 700 100 Other: Voiding Method Toilet # Voids 3 1 Weight 62.5 kg GENERAL DESCRIPTION: Middle-aged male lying in bed, no distress. No tachypnea or accessory muscle of respiration use. HEENT: Shows Pallor , no scleral icterus. Oral mucous membrane is dry. No pharyngeal erythema or thrush NECK: Trachea central, no thyromegaly. LUNGS: Unlabored breathing. Clear to auscultation anteriorly. No wheeze or crackle. HEART: S1, S2, regular rate and rhythm. No loud murmur ABDOMEN: Soft, no tenderness , guarding or rigidity, no organomegaly EXTREMITIES: No edema of feet. SKIN: No rash, no masses palpable. NEUROLOGICAL: The patient is awake, alert, oriented x3, mood and affect normal. Results CBC & Chem 7: 12/27/23 03:44 12/29/23 06:19 Labs: Abnormal Lab Results - Last 24 Hours (Table) 12/27/23 12/27/23 12/28/23 Range/Units 17:14 20:31 06:22 POC Glucose (mg/dL) 176 H 310 H 415 H (70-110) mg/dL 12/28/23 Range/Units 12:17 POC Glucose (mg/dL) 211 H (70-110) mg/dL Microbiology - Last 24 Hours (Table) 12/26/23 16:47 Blood Culture Gram Stain - Preliminary Blood Blood Culture - Preliminary Streptococcus viridans group Molecular ID Assessment and Plan (1) Positive blood culture Current Visit: Yes Status: Acute Code(s): R78.81 - BACTEREMIA SNOMED Code(s): 589607030 (2) Penicillin allergy Current Visit: Yes Status: Acute Code(s): Z88.0 - ALLERGY STATUS TO PENICILLIN SNOMED Code(s): 71432024 Plan: 1patient with a positive blood culture with Streptococcus viridans in this patient present to the hospital with increasing shortness of breath over the patient stopped taking his Lasix patient did not have any fever during this hospital stay white count has been normal question of possible skin contamination and is currently no clinical disease to go along with it. 2blood culture has been repeated document clearance inflammatory markers has been requested including a sed rate. 3May continue Rocephin while waiting for the workup to be completed. We will follow on clinical condition and cultures to further adjust medication if needed Thank you for this consultation we will follow the patient along with you Dictation was produced using [employer] dictation software. please excuse any grammatical, word or spelling errors. Time with Patient: Greater than 30
--- NOTE | 2023-12-29 18:23 | P.PN ---
Subjective Progress Note Date: 12/29/23 Principal diagnosis: Reason for follow-up is a positive blood culture Patient is a 63-year-old male with a past medical history significant for coronary artery disease heart failure COPD CVA TIA diabetes mellitus hypertension hyperlipidemia and liver disorder presenting to the hospital with increasing shortness of breath after the patient stopped taking his Lasix did have a positive blood culture with Streptococcus viridans prompting this consultation. On today's evaluation that is 12/29/2023, patient has been afebrile, patient is breathing comfortably and is currently on 2 L nasal cannula oxygen, patient denies having any significant cough no chest pain shortness of breath, patient denies nausea vomiting or diarrhea and no abdominal pain. Patient did have a sed rate of 22 creatinine is 1.66 CRP is less than 0.3 0 repeat blood cultures pending Objective - Vital Signs Vital signs: Vital Signs Temp 98.2 F 12/29/23 14:33 Pulse 89 12/29/23 14:33 Resp 18 12/29/23 14:33 BP 124/74 12/29/23 14:33 Pulse Ox 99 12/29/23 14:33 FiO2 Intake & Output 12/28/23 12/29/23 12/29/23 18:59 06:59 18:59 Intake Total 2130 1270 Output Total 1100 1200 Balance 1030 -1200 1270 Weight 67.4 kg Intake: Oral 2130 1270 Output: Urine 1100 1200 Other: Voiding Method Toilet # Voids 1 - Exam GENERAL DESCRIPTION: Middle-aged male lying in bed in no distress RESPIRATORY SYSTEM: Unlabored breathing , decreased breath sounds at bases HEART: S1 S2 regular rate and rhythm , ABDOMEN: Soft , no tenderness EXTREMITIES: No edema feet - Labs CBC & Chem 7: 12/27/23 03:44 12/29/23 06:19 Labs: Abnormal Lab Results - Last 24 Hours (Table) 12/28/23 12/29/23 12/29/23 Range/Units 20:18 02:55 02:55 ESR 22 H (0-20) mm/Hr Sodium (137-145) mmol/L Carbon Dioxide (22-30) mmol/L BUN (9-20) mg/dL Creatinine (0.66-1.25) mg/dL Glucose (74-99) mg/dL POC Glucose (mg/dL) 128 H (70-110) mg/dL Hemoglobin A1c 8.0 H (<=6.0) % Calcium (8.4-10.2) mg/dL 12/29/23 12/29/23 12/29/23 Range/Units 05:26 06:19 06:20 ESR (0-20) mm/Hr Sodium 132 L (137-145) mmol/L Carbon Dioxide 20 L (22-30) mmol/L BUN 59 H (9-20) mg/dL Creatinine 1.66 H (0.66-1.25) mg/dL Glucose 533 H* (74-99) mg/dL POC Glucose (mg/dL) >600 H* 541 H* (70-110) mg/dL Hemoglobin A1c (<=6.0) % Calcium 8.2 L (8.4-10.2) mg/dL 12/29/23 12/29/23 12/29/23 Range/Units 08:10 12:04 16:17 ESR (0-20) mm/Hr Sodium (137-145) mmol/L Carbon Dioxide (22-30) mmol/L BUN (9-20) mg/dL Creatinine (0.66-1.25) mg/dL Glucose (74-99) mg/dL POC Glucose (mg/dL) 426 H 66 L 303 H (70-110) mg/dL Hemoglobin A1c (<=6.0) % Calcium (8.4-10.2) mg/dL 12/29/23 Range/Units 17:29 ESR (0-20) mm/Hr Sodium (137-145) mmol/L Carbon Dioxide (22-30) mmol/L BUN (9-20) mg/dL Creatinine (0.66-1.25) mg/dL Glucose (74-99) mg/dL POC Glucose (mg/dL) 314 H (70-110) mg/dL Hemoglobin A1c (<=6.0) % Calcium (8.4-10.2) mg/dL Microbiology - Last 24 Hours (Table) 12/26/23 16:47 Blood Culture Gram Stain - Final Blood Blood Culture - Final Streptococcus viridans group Molecular ID Assessment and Plan (1) Positive blood culture Current Visit: Yes Status: Acute Code(s): R78.81 - BACTEREMIA SNOMED Code(s): 002541717 (2) Penicillin allergy Current Visit: Yes Status: Acute Code(s): Z88.0 - ALLERGY STATUS TO PENICILLIN SNOMED Code(s): 55993575 Plan: 1patient with a positive blood culture with Streptococcus viridans in this patient present to the hospital with increasing shortness of breath over the patient stopped taking his Lasix patient did not have any fever during this hospital stay white count has been normal question of possible skin contamination and is currently no clinical disease to go along with it. 2blood culture has been repeated document clearance patient did have a normal CRP and a sed rate of 22 that will go against any deep infection 3currently on Rocephin however if repeat blood culture negative we will recommend discontinue antibiotics Dictation was produced using [employer] dictation software. please excuse any grammatical, word or spelling errors. Time with Patient: Less than 30
[2023-12-29 20:26] LABS: Glucose,Whole Blood 110 mg/dL (70-110)
--- NOTE | 2023-12-30 00:52 | PN ---
PROGRESS NOTE SUBJECTIVE: This is a 63-year-old white male. His pain is under control. Medicines were conformed and discussed. Increase his oxycodone from 10 to 50 mg q.6h p.r.n. He has severe spinal stenosis in his L4-L5. Discussed with him compliance with medications. He remains on current treatments. OBJECTIVE: CARDIOVASCULAR: S1, S2. LUNGS: Transmitted sounds. HEMATOLOGY: Negative for Homans. PSYCH: Fair mood and affect. Sugar 60s to 110s. He wants to go to skilled nursing for PT OT, has no place to live. Hemoglobin is 10. ASSESSMENT: COPD, diastolic CHF, hypoxia, respiratory failure, altered mental status, dehydration, hypertension acceleration. Prognosis guarded. Continue current treatment with oxycodone. Prognosis guarded. Pulmonary and social 48 hours. MMODL / IJN: [id number] /
[2023-12-30 05:55] LABS: Glucose,Whole Blood 353 mg/dL (70-110)
--- NOTE | 2023-12-30 10:37 | P.PN ---
Subjective HISTORY OF PRESENT ILLNESS: This is a 63-year-old male with a past medical history significant for coronary artery disease with previous stenting, ischemic cardiomyopathy, hypertension, hyperlipidemia, nicotine dependence, former alcohol abuse, chronic hypoxic respiratory failure on home O2 at 4 L. Patient has not followed in the office since 2015, however at that time he saw Dr. Soni. We have been asked to see the patient in consultation for CHF. Patient complains that he can not make it to any doctor appointments because he has to get a ride and also because he can walk due to pain and numbness in his legs. Patient presented with shortness of breathing, no significant LE edema. He complains of CP at 4 am last night on the left side, shooting through and lasting for few seconds and settles down. He has not been taking diuretics because he ran out and then because he forgets. He is smoking and down to few cigarettes per day. He uses edible marijuana. He also admits to using cocaine as it "numbs me out." He denies alcohol use. Blood pressure 150/89, heart rate 82, pulse ox 98% on 3 L nasal cannula, afebrile patient has been started on IV Lasix 60 mg every 12 hours. EKG reveals sinus mechanism left bundle branch block T wave inversion in V5 V6 Chest xray: Correlate for CHF with pulmonary vascular congestion. Small left gr eater than right pleural effusions with adjacent atelectasis and/or consolidation. CTA of the chest reveals no PE. Small to moderate-sized bilateral pleural effusions. Ultrasound duplex of the bilateral lower extremities negative for DVT. Laboratory studies: WBC 5.3, hemoglobin 12.4. D-dimer 0.69. Sodium 135, potassium 4.8, creatinine 0.92 and BUN 21. Troponin negative x 1. proBNP 22,200. TSH less than 0.015 with normal free T4 of 2.09. Urinalysis 3+ glucose. Urine drug screen positive for opiates, cocaine and marijuana Current home cardiac medications: Atorvastatin 40 mg at bedtime, Lasix 40 mg twice daily, Toprol XL 25 mg daily, Entresto 24-26 mg 1 tablet twice daily. Most recent echocardiogram obtained in March 2023 revealed ejection fraction 20 to 25%, mild to moderate TR, trace MR, and calcified aortic valve without significant stenosis Cardiac catheterization history: January 2016 revealing intermediate in-stent restenosis of the RCA, mild to moderate nonobstructive coronary artery disease involving the left coronary system, normal left ventricular systolic function. 12/27 Patient is seen and examined. He has been maintained on IV Lasix 60 mg every 12 hours. Blood pressure 123/68, heart rate 69, pulse ox 97% on 2 L nasal cannula. Has been afebrile. Weight documented is down 3-1/2 kg. Results of echocardiogram reviewed with the patient. Patient states he does not feel well. Patient complains of headache that won't go away. He also complains of shaking and chills. He is urinating well. Patient is concerned that he is on a fluid restriction and is too strict. Agreed that we would increase fluid restriction to 1999. Echocardiogram reveals EF of 25 to 30%, moderate to severe increased left ventricular wall thickness. RVSP 37. Trace MR, trace to mild TR, small pericardial effusion, left pleural effusion. 12/29/2023 Patient examined this morning. He is sitting on the side of the bed eating breakfast. He denies chest pain or pressure. Denies SOB. He has been transition to oral diuretics. Blood pressure is high this morning with a reading of 181/106 and 172/96. Patient does report he has not been compliant with his medications at home and states his medications that he is supposed to take twice a day he usually only takes once a day. 12/30/2023 Patient examined this morning at the bedside. Patient currently denies chest pain or pressure. He denies shortness of breath. Blood pressure is better controlled today. PHYSICAL EXAM: VITAL SIGNS: Reviewed. GENERAL: Well-developed in no acute distress. NECK: Supple. No JVD or thyromegaly LUNGS: Respirations even and unlabored. Lungs essentially clear to auscultation bilaterally. HEART: Regular rate and rhythm. S1 and S2 heard. EXTREMITIES: Normal range of motion. No clubbing or cyanosis. Peripheral pulses intact. Trace bilateral lower extremity edema ASSESSMENT: Acute on chronic heart failure with reduced ejection fraction, 25% Coronary artery disease with previous stenting of the RCA Mild to moderate nonobstructive CAD involving left coronary system Ischemic cardiomyopathy, EF 25-30 Chronic kidney disease Chronic hypoxic respiratory failure on home O2, 24/ History of COPD Hypertension, uncontrolled this morning Hyperlipidemia Nicotine dependence Marijuana use Cocaine use Former alcohol abuse, patient states he has not drank in 30 years Medication noncompliance PLAN: Continue current cardiac medications Continue to monitor blood pressure Medication compliance discussed with patient Patient is currently stable from a cardiac standpoint. Discharge per medicine. Patient is to follow-up with Dr. Soni post discharge We will sign off. Please reconsult if needed. Nurse practitioner note has been reviewed by physician. Signing provider agrees with the documented findings, assessment, and plan of care documented by NOTE KEEPER as a scribe. Objective - Vital Signs Vital signs: Vital Signs Temp 98.1 F 12/30/23 07:00 Pulse 82 12/30/23 08:37 Resp 20 12/30/23 07:00 BP 155/75 12/30/23 07:00 Pulse Ox 98 12/30/23 08:19 FiO2 Intake & Output 12/29/23 12/30/23 12/30/23 18:59 06:59 18:59 Intake Total 1270 Balance 1270 Intake: Oral 1270 - Labs CBC & Chem 7: 12/27/23 03:44 12/29/23 06:19 Labs: Abnormal Lab Results - Last 24 Hours (Table) 12/29/23 12/29/23 12/29/23 Range/Units 12:04 16:17 17:29 POC Glucose (mg/dL) 66 L 303 H 314 H (70-110) mg/dL 12/30/23 Range/Units 05:54 POC Glucose (mg/dL) 353 H (70-110) mg/dL Microbiology - Last 24 Hours (Table) 12/28/23 13:25 Blood Culture - Preliminary Blood 12/26/23 16:47 Blood Culture Gram Stain - Final Blood Blood Culture - Final Streptococcus viridans group Molecular ID
[2023-12-30 11:24] LABS: Glucose,Whole Blood 51 mg/dL (70-110)
[2023-12-30 11:37] LABS: Basophils # (A) 0.02 X 10*3/uL (0.00-0.10); Basophils % (A) 0.3 %; Eosinophils # (A) 0.02 X 10*3/uL (0.04-0.35); Eosinophils % (A) 0.3 %; HCT 37.3 % (39.6-50.0); HGB 11.6 g/dL (13.0-17.0); Lymphocytes # (A) 0.58 X 10*3/uL (0.90-5.00); Lymphocytes % (A) 9.7 %; MCH 28.9 pg (27.0-32.0); MCHC 31.1 g/dL (32.0-37.0); Mean Platelet Volume 11.6 FL (9.5-12.2); Monocytes # (A) 0.74 X 10*3/uL (0.20-1.00); Monocytes % (A) 12.4 %; NRBC Per 100 WBC 0 X 10*3/uL (0.00-0.01); Neutrophils # (A) 4.61 X 10*3/uL (1.80-7.70); Neutrophils % (A) 77.1 %; Platelet Count 199 X 10*3/uL (140-440); RBC 4.01 X 10*6/uL (4.40-5.60); RDW 14.3 % (11.5-14.5); WBC 5.98 X 10*3/uL (4.50-10.00)
[2023-12-30 11:46] LABS: Glucose,Whole Blood 71 mg/dL (70-110)
[2023-12-30 12:01] LABS: Glucose,Whole Blood 72 mg/dL (70-110)
[2023-12-30 12:21] LABS: ALT 27 U/L (10-49); AST 31 U/L (14-35); Albumin 3.8 g/dL (3.8-4.9); Albumin/Globulin Ratio 1.81 Ratio (1.60-3.17); Alkaline Phosphatase 113 U/L (41-126); BUN/Creat Ratio 31.32 Ratio (12.00-20.00); Blood Urea Nitrogen 59.5 mg/dL (9.0-27.0); Calcium 8.2 mg/dL (8.7-10.3); Carbon Dioxide 23.7 mmol/L (21.6-31.8); Chloride 101 mmol/L (96-109); Globulin 2.1 g/dL (1.6-3.3); Glucose 348 mg/dL (70-110); Potassium 5.6 mmol/L (3.5-5.5); Sodium 137 mmol/L (135-145); Total Bilirubin <0.2 mg/dL (0.3-1.2); Total Protein 5.9 g/dL (6.2-8.2)
[2023-12-30 12:31] LABS: Glucose,Whole Blood 95 mg/dL (70-110)
--- NOTE | 2023-12-30 14:12 | PN ---
PROGRESS NOTE SUBJECTIVE: This is a 63-year-old with congestive heart failure, COPD exacerbation, and dehydration, probable pneumonia. He white count 5.9, a hemoglobin is 11.6 sodium 137, potassium 5.6, BUN is 59, creatinine 1.9, GFR is 39, glucose been 300s to 50s to 70s. Total bilirubin is negative condition stable prognosis guarded ambulate as tolerated. He has Strep viridans susceptibility, wait for Dr. Starkey's recommendations on that. Repeat blood cultures so far is negative for 24 hours. Continue with current antibiotics. First strep mutans strep viridans with IV antibiotics for Dr. Starkey's recommendations this was repeat blood cultures come back negative for next 2 or 3 days possibly could be discharged. He wants to increase dose of his pain medications. PROGNOSIS: Guarded. MMUBALDOL / ZHOUN: [id number] /
--- NOTE | 2023-12-30 16:13 | P.PN ---
Subjective Progress Note Date: 12/30/23 Principal diagnosis: Low back pain, left lower extremity radiculopathy Patient was evaluated today at bedside, he is resting in his hospital bed. Patient states he has been dealing with diarrhea throughout most of today. he did have the MRI of the lumbar spine yesterday afternoon. He states that the legs are feeling okay at this time. No acute issues with bowel incontinence or urinary incontinence. Currently denies any headaches, lightheadedness, chest pain or shortness of breath. Objective - Vital Signs Vital signs: Vital Signs Temp 98.5 F 12/30/23 14:52 Pulse 86 12/30/23 14:52 Resp 18 12/30/23 14:52 BP 138/74 12/30/23 14:52 Pulse Ox 99 12/30/23 14:52 FiO2 Intake & Output 12/29/23 12/30/23 12/30/23 18:59 06:59 18:59 Intake Total 1270 720 Balance 1270 720 Intake: Oral 1270 720 - Exam Gen: AOx3, NAD VSS stable at this time Integument: No open lesions, sores, areas of erythema noted in the cervical, thoracic or lumbar spine There are multiple scabs and small lesions noted in the bilateral lower extremit ies, he does have chronic skin discoloration in the lower extremities bilaterally Palpation: patient is nontender with palpation about the paraspinal and midline region of the cervical and thoracic spine. 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 4-/5 strength appreciated in the right lower extremity with hip flexion, knee e xtension, knee flexion, plantarflexion, dorsiflexion, EHL, FHL 4-/5 strength appreciated in the left lower extremity with hip flexion, 4-/5 strength appreciated in the left lower extremity with knee extension, knee flexion, plantarflexion, dorsiflexion, EHL, FHL Reflexes: 2/4 in all UE and LE negative Nanda's bilaterally negative clonus bilaterally Special Test: logroll maneuver of the bilateral lower extremities reproduces no groin pain negative straight leg raise right lower extremity, positive straight leg raise left lower extremity - Labs CBC & Chem 7: 12/30/23 06:47 12/30/23 06:47 Labs: Abnormal Lab Results - Last 24 Hours (Table) 12/29/23 12/29/23 12/30/23 Range/Units 16:17 17:29 05:54 RBC (4.40-5.60) X 10*6/uL Hgb (13.0-17.0) g/dL Hct (39.6-50.0) % MCHC (32.0-37.0) g/dL Lymphocytes # (0.90-5.00) X 10*3/uL Eosinophils # (0.04-0.35) X 10*3/uL Potassium (3.5-5.5) mmol/L Anion Gap (4.00-12.00) mmol/L BUN (9.0-27.0) mg/dL Creatinine (0.6-1.5) mg/dL Est GFR (CKD-EPI) (>=60) BUN/Creatinine Ratio (12.00-20.00) Ratio Glucose (70-110) mg/dL POC Glucose (mg/dL) 303 H 314 H 353 H (70-110) mg/dL Calcium (8.7-10.3) mg/dL Total Bilirubin (0.3-1.2) mg/dL Total Protein (6.2-8.2) g/dL 12/30/23 12/30/23 12/30/23 Range/Units 06:47 06:47 11:19 RBC 4.01 L (4.40-5.60) X 10*6/uL Hgb 11.6 L (13.0-17.0) g/dL Hct 37.3 L (39.6-50.0) % MCHC 31.1 L (32.0-37.0) g/dL Lymphocytes # 0.58 L (0.90-5.00) X 10*3/uL Eosinophils # 0.02 L (0.04-0.35) X 10*3/uL Potassium 5.6 H (3.5-5.5) mmol/L Anion Gap 12.30 H (4.00-12.00) mmol/L BUN 59.5 H (9.0-27.0) mg/dL Creatinine 1.9 H (0.6-1.5) mg/dL Est GFR (CKD-EPI) 39 L (>=60) BUN/Creatinine Ratio 31.32 H (12.00-20.00) Ratio Glucose 348 H (70-110) mg/dL POC Glucose (mg/dL) 51 L (70-110) mg/dL Calcium 8.2 L (8.7-10.3) mg/dL Total Bilirubin <0.2 L (0.3-1.2) mg/dL Total Protein 5.9 L (6.2-8.2) g/dL Microbiology - Last 24 Hours (Table) 12/28/23 13:25 Blood Culture - Preliminary Blood Assessment and Plan Assessment: low back pain left lower extremity radiculopathy L1 vertebral body compression deformity multilevel lumbar spondylosis L4-L5 spondylolisthesis bilateral lower extremity weakness, left worse than right bilateral lower extremity multiple medical comorbidities Plan: MRI images along with reports were reviewed. I was able to discuss these with my attending Dr. Mendoza's and. No significant areas of central canal stenosis were noted. Patient does demonstrate moderate/severe neuroforaminal stenosis at L4-L5. No emergent orthopedic spine surgical intervention is recommended at this time. Patient states in the past has had relief with previous epidural injections. Would recommend consulting pain management for further evaluation. Continue conservative measures, this to include pain medication, anti- inflammatories, muscle relaxers, steroids and monitor for symptom relief DVT prophylaxis per primary medical service Weight-bear as tolerated, would recommend use of walker at all times to help with stability Other medical specialty recommendations Monitor for urinary retention and issues with bowel incontinence. Patient may follow-up in the outpatient setting on an as-needed basis. please contact our service with any further questions regarding this patient Time with Patient: Less than 30
[2023-12-30 17:15] LABS: Glucose,Whole Blood 287 mg/dL (70-110)
[2023-12-30] MEDS: SODIUM CHLORIDE 0.9% 500 ML 500 ML IV ONE (17:53)
[2023-12-30 20:55] LABS: Glucose,Whole Blood 173 mg/dL (70-110)
[2023-12-31 05:54] LABS: Glucose,Whole Blood 354 mg/dL (70-110)
[2023-12-31 08:05] VITALS: BMI 22.0
[2023-12-31 12:10] LABS: Glucose,Whole Blood 261 mg/dL (70-110)
[2023-12-31 14:14] VITALS: BP 122/70; PULSE 87; RESP 15; TEMP 98.4
[2023-12-31 14:46] LABS: Basophils % (A) 0 %; Eosinophils # (A) 0.1 k/uL (0-0.7); Eosinophils % (A) 3 %; HCT 34.5 % (39.0-53.0); HGB 10.7 gm/dL (13.0-17.5); Hypochromasia Slight; Lymphocytes # (A) 0.6 k/uL (1.0-4.8); Lymphocytes % (A) 13 %; MCH 29.6 pg (25.0-35.0); MCV 95.5 fL (80.0-100.0); Mean Platelet Volume 9.1; Monocytes # (A) 0.5 k/uL (0-1.0); Monocytes % (A) 11 %; Neutrophils % (A) 69 %; Platelet Count 181 k/uL (150-450); RBC 3.61 m/uL (4.30-5.90); RDW 14.2 % (11.5-15.5); WBC 4.4 k/uL (3.8-10.6)
[2023-12-31 15:15] LABS: ALT 29 U/L (4-49); AST 40 U/L (17-59); African American GFR (CKD) 52 (>60 ml/min/1.73 sqM); Albumin 3.2 g/dL (3.5-5.0); Albumin/Globulin Ratio 1.5; Alkaline Phosphatase 89 U/L (38-126); Anion Gap 5 mmol/L; Blood Urea Nitrogen 54 mg/dL (9-20); Calcium 8.3 mg/dL (8.4-10.2); Carbon Dioxide 22 mmol/L (22-30); Chloride 106 mmol/L (98-107); Globulin 2.2 g/dL; Glucose 216 mg/dL (74-99); Non-African American GFR(CKD) 45 (>60 ml/min/1.73 sqM); Potassium 5.1 mmol/L (3.5-5.1); Sodium 133 mmol/L (137-145); Total Bilirubin 0.3 mg/dL (0.2-1.3); Total Protein 5.4 g/dL (6.3-8.2)
--- NOTE | 2023-12-31 16:10 | P.PN ---
Subjective Progress Note Date: 12/30/23 Principal diagnosis: Reason for follow-up is a positive blood culture Patient is a 63-year-old male with a past medical history significant for coronary artery disease heart failure COPD CVA TIA diabetes mellitus hypertension hyperlipidemia and liver disorder presenting to the hospital with increasing shortness of breath after the patient stopped taking his Lasix did have a positive blood culture with Streptococcus viridans prompting this consultation. On today's evaluation that is 12/30/2023, Patient is afebrile this morning and denies any chills, patient mention breathing comfortably and is currently on 3 L current oxygen, patient denies any chest pain occasional cough patient denies any abdominal pain no diarrhea no nausea no vomiting no new symptom mention feeling slightly better. Patient did have a white count of 5.98, creatinine is 1.9 blood cultures been negative so far Objective - Vital Signs Vital signs: Vital Signs Temp 98.1 F 12/30/23 07:00 Pulse 82 12/30/23 08:37 Resp 20 12/30/23 07:00 BP 155/75 12/30/23 07:00 Pulse Ox 98 12/30/23 08:19 FiO2 Intake & Output 12/29/23 12/30/23 12/30/23 18:59 06:59 18:59 Intake Total 1270 720 Balance 1270 720 Intake: Oral 1270 720 - Exam GENERAL DESCRIPTION: Middle-aged male lying in bed in no distress RESPIRATORY SYSTEM: Unlabored breathing , decreased breath sounds at bases HEART: S1 S2 regular rate and rhythm , ABDOMEN: Soft , no tenderness EXTREMITIES: No edema feet - Labs CBC & Chem 7: 12/31/23 14:29 12/31/23 14:29 Labs: Abnormal Lab Results - Last 24 Hours (Table) 12/29/23 12/29/23 12/29/23 Range/Units 12:04 16:17 17:29 POC Glucose (mg/dL) 66 L 303 H 314 H (70-110) mg/dL 12/30/23 12/30/23 Range/Units 05:54 11:19 POC Glucose (mg/dL) 353 H 51 L (70-110) mg/dL Microbiology - Last 24 Hours (Table) 12/28/23 13:25 Blood Culture - Preliminary Blood 12/26/23 16:47 Blood Culture Gram Stain - Final Blood Blood Culture - Final Streptococcus viridans group Molecular ID Assessment and Plan (1) Positive blood culture Current Visit: Yes Status: Acute Code(s): R78.81 - BACTEREMIA SNOMED Code(s): 769585337 (2) Penicillin allergy Current Visit: Yes Status: Acute Code(s): Z88.0 - ALLERGY STATUS TO PENICILLIN SNOMED Code(s): 59871335 Plan: 1patient with a positive blood culture with Streptococcus viridans in this patient present to the hospital with increasing shortness of breath over the pat ient stopped taking his Lasix patient did not have any fever during this hospital stay white count has been normal question of possible skin contamination and is currently no clinical disease to go along with it. 2blood culture has been repeated and so far negative patient did have a normal CRP and a sed rate of 22 that will go against any deep infection 3patient is on Rocephin however if repeat blood culture negative we will recommend discontinue antibiotics. Multiple questions were answered Dictation was produced using [employer] dictation software. please excuse any grammatical, word or spelling errors. Time with Patient: Less than 30
--- NOTE | 2023-12-31 16:11 | P.PN ---
Subjective Progress Note Date: 12/31/23 Principal diagnosis: Reason for follow-up is a positive blood culture Patient is a 63-year-old male with a past medical history significant for coronary artery disease heart failure COPD CVA TIA diabetes mellitus hypertension hyperlipidemia and liver disorder presenting to the hospital with increasing shortness of breath after the patient stopped taking his Lasix did have a positive blood culture with Streptococcus viridans prompting this consultation. On today's evaluation that is 12/31/2023,the patient denies any fever or any chills, patient is breathing comfortably on 3 L nasal cannula oxygen, the patient denies chest pain shortness of breath and no significant cough, patient denies abdominal pain, no nausea vomiting or diarrhea. Denies any worsening efrain k pain seem to be slightly abscess and the patient mention did not qualify for rehab Patient white count is 4.4, creat is 1.61 blood culture repeat has been negative so far Objective - Vital Signs Vital signs: Vital Signs Temp 98 F 12/31/23 07:38 Pulse 80 12/31/23 12:35 Resp 16 12/31/23 07:38 BP 123/63 12/31/23 07:38 Pulse Ox 91 L 12/31/23 09:21 FiO2 Intake & Output 12/30/23 12/31/23 12/31/23 18:59 06:59 18:59 Intake Total 1200 444 462 Balance 1200 444 462 Weight 69.7 kg 69.7 kg Intake: Oral 1200 444 462 Other: # Voids 7 # Bowel Movements 3 - Exam GENERAL DESCRIPTION: Middle-aged male lying in bed in no distress RESPIRATORY SYSTEM: Unlabored breathing , decreased breath sounds at bases HEART: S1 S2 regular rate and rhythm , ABDOMEN: Soft , no tenderness EXTREMITIES: No edema feet - Labs CBC & Chem 7: 12/31/23 14:29 12/31/23 14:29 Labs: Abnormal Lab Results - Last 24 Hours (Table) 12/30/23 12/30/23 12/31/23 Range/Units 17:13 20:53 05:53 POC Glucose (mg/dL) 287 H 173 H 354 H (70-110) mg/dL 12/31/23 Range/Units 12:03 POC Glucose (mg/dL) 261 H (70-110) mg/dL Microbiology - Last 24 Hours (Table) 12/28/23 13:25 Blood Culture - Preliminary Blood Assessment and Plan (1) Positive blood culture Current Visit: Yes Status: Acute Code(s): R78.81 - BACTEREMIA SNOMED Code(s): 768420152 (2) Penicillin allergy Current Visit: Yes Status: Acute Code(s): Z88.0 - ALLERGY STATUS TO PENICILLIN SNOMED Code(s): 34833541 Plan: 1patient with a positive blood culture with Streptococcus viridans in this patient present to the hospital with increasing shortness of breath over the patient stopped taking his Lasix patient did not have any fever during this hospital stay white count has been normal question of possible skin contamination and is currently no clinical disease to go along with it. 2blood culture has been repeated and so far negative patient did have a normal CRP and a sed rate of 22 that will go against any deep infection 3patient antibiotics can be safely discontinued and the patient repeat blood culture has been negative and more likely positive blood culture presenting as contamination rather than true pathogen Dictation was produced using [employer] dictation software. please excuse any grammatical, word or spelling errors. Time with Patient: Less than 30
--- NOTE | 2024-01-01 13:47 | CDI ---
Documentation Clarification Form Date: 01/01/2024 01:20:30 PM From: Abiola Dennis Phone: Admit Date: 12/26/2023 02:30:00 PM Patient Name: Jacobo Hall Visit Number: [id number] Discharge Date: 12/31/2023 04:20:00 PM ATTENTION: The Clinical Documentation Specialists (CDI) and [facility] Coding Staff appreciate your assistance in clarifying documentation. Please respond to the clarification below the line at the bottom and electronically sign. The CDI & [facility] Coding staff will review the response and follow-up if needed. Please note: Queries are made part of the Legal Health Record. If you have any questions, please contact the author of this message via ITS. Dr. Opal Starkey Unspecified CKD is documented per Consult Note 12/26 and Progress Note 12/27-12/29. Additional clarification regarding the stage of CKD is requested. History/Risk Factors: 63yo M, NIDDMII, ACDHF, CAD, ICM, CKD, CHRF on O2, COPD, HTN, HLD, marijuana & cocaine use, former ETOH abuse, Rx noncompliance, smoker Clinical Indicators: BUN 21 H (9-20) Cr: 0.92 (0.66-1.25) AfAm: 12/25 >90 12/28 50 7 52 NonAf: 12/25 88 12/28 43 12/30 46 Treatment: monitored Please clarify the stage of the CKD, if known: [ ] Acute Kidney Injury [ ] CKD Stage 1 [ ] CKD Stage 2 [ ] Other, please specify [ x ] Unable to determine----I am not ore tester or admitting physician direct any question to his CKD to them Reference: National Kidney Foundation Stage 1 eGFR = 90 and kidney damage for =3 months Stage 2 eGFR 60-89 and kidney damage for =3 months Stage 3a eGFR 45-59 and kidney damage for =3 months Stage 3b eGFR 30-44 and kidney damage for =3 months Stage 4 eGFR 15-29 r and kidney damage for =3 months Stage 5 eGFR <15 and kidney damage for =3 months (Template last revised: June 2023) MTDD
--- NOTE | 2024-01-01 13:55 | CDI ---
Documentation Clarification Form Date: 01/01/2024 01:48:41 PM From: Abiola Dennis Phone: Admit Date: 12/26/2023 02:30:00 PM Patient Name: Jacobo Hall Visit Number: [id number] Discharge Date: 12/31/2023 04:20:00 PM ATTENTION: The Clinical Documentation Specialists (CDI) and [facility] Coding Staff appreciate your assistance in clarifying documentation. Please respond to the clarification below the line at the bottom and electronically sign. The CDI & [facility] Coding staff will review the response and follow-up if needed. Please note: Queries are made part of the Legal Health Record. If you have any questions, please contact the author of this message via ITS. Dr. Joseph Lalito Your patient has an abnormal lab value: Hemoglobin A1C 8. Please clarify if there is an additional diagnosis and/or clinical significance related to this value. History/Risk Factors: 63yo M, NIDDMII, ACDHF, CAD, ICM, CKD, CHRF on O2, COPD, HTN, HLD, marijuana & cocaine use, former ETOH abuse, Rx noncompliance, smoker Clinical indicators: POCGlucose: 12/25 152 12/26 152-309 12/27 176-415 Treatment: Insulin Aspart 0 unit; Insulin Aspart (Novolog) 100 Unit/Ml Vial SQ 9 unit Home DM Meds: Dapagliflozin Propanediol [Farxiga] 10 mg PO DAILY Is there an additional diagnosis and/or clinical significance related to the above lab result/information? [ ] Diabetes Mellitus with hyperglycemia [ ] No additional diagnosis/Not clinically significant [ x] Other, please specify_I am not admitting physician or test bore helper need to direct question to the right physician [ ] Unable to determine (Template Last Revised: July 2020) MTDD
--- NOTE | 2024-01-02 15:14 | CDI ---
Documentation Clarification Form Date: 01/02/2024 03:10:48 PM From: Abiola Dennis Phone: Admit Date: 12/26/2023 02:30:00 PM Patient Name: Jacobo Hall Visit Number: [id number] Discharge Date: 12/31/2023 04:20:00 PM ATTENTION: The Clinical Documentation Specialists (CDI) and [facility] Coding Staff appreciate your assistance in clarifying documentation. Please respond to the clarification below the line at the bottom and electronically sign. The CDI & [facility] Coding staff will review the response and follow-up if needed. Please note: Queries are made part of the Legal Health Record. If you have any questions, please contact the author of this message via ITS. Dr. Eric Loyola UnspecifiedCKDis documented per Consult Note 12/26 and Progress Note 12/27-12/29. Additional clarification regarding the stage ofCKDis requested. History/Risk Factors: 63yo M, NIDDMII, ACDHF,CAD, ICM,CKD, CHRF on O2,COPD, HTN,HLD, marijuanacocaine use, formerETOH abuse,Rx noncompliance,smoker Clinical Indicators: BUN 21 H (9-20) Cr: 0.92 (0.66-1.25) AfAm: 12/25 >90 12/28 50 12/30 52 NonAf: 12/25 88 12/28 43 12/30 46 Treatment: monitored Please clarify the stage of theCKD, if known: [ ]Acute Kidney Injury [ ]CKD Stage 1 [ ]CKD Stage 2 [ ] Other, please specify [ ] Unable to determine Reference: National Kidney Foundation Stage 1 eGFR = 90 andkidney damagefor =3 months Stage 2 eGFR 60-89 andkidney damagefor =3 months Stage 3a eGFR 45-59 andkidney damagefor =3 months Stage 3b eGFR 30-44 andkidney damagefor =3 months Stage 4 eGFR 15-29 r andkidney damagefor =3 months Stage 5 eGFR <15 andkidney damagefor =3 months (Template lastrevised: June 2023) MTDD
--- NOTE | 2024-01-02 15:17 | CDI ---
Documentation Clarification Form Date: 01/02/2024 03:14:48 PM From: Abiola Dennis Phone: Admit Date: 12/26/2023 02:30:00 PM Patient Name: Jacobo Hall Visit Number: [id number] Discharge Date: 12/31/2023 04:20:00 PM ATTENTION: The Clinical Documentation Specialists (CDI) and [facility] Coding Staff appreciate your assistance in clarifying documentation. Please respond to the clarification below the line at the bottom and electronically sign. The CDI & [facility] Coding staff will review the response and follow-up if needed. Please note: Queries are made part of the Legal Health Record. If you have any questions, please contact the author of this message via ITS. Dr. Eric Loyola Your patient has anabnormallab value: Hemoglobin A1C 8. Please clarify if there is an additional diagnosis and/or clinical significance related to this value. History/Risk Factors: 63yo M, NIDDMII, ACDHF,CAD, ICM,CKD, CHRF on O2,COPD, HTN,HLD, marijuanacocaine use, formerETOH abuse,Rx noncompliance,smoker Clinical indicators: POCGlucose: 12/25 152 12/26 152-309 12/27 176-415 Treatment: Insulin Aspart 0 unit; Insulin Aspart (Novolog) 100 Unit/Ml Vial SQ 9 unit HomeDMMeds: Dapagliflozin Propanediol [Farxiga] 10 mg PO DAILY Is there an additional diagnosis and/or clinical significance related to the above lab result/information? [ ]Diabetes Mellitus with hyperglycemia [ ] No additional diagnosis/Not clinically significant [ ] Other, please specify [ ] Unable to determine (Template LastRevised: July 2020) MTDD
--- NOTE | 2024-01-08 13:52 | PN ---
PROGRESS NOTE Chronic kidney disease stage IIIA. Also diabetes mellitus with hyperuricemia. MMODL / IJN: [id number] /
--- NOTE | 2024-01-08 14:36 | HP ---
HISTORY AND PHYSICAL HISTORY OF PRESENT ILLNESS: This is a 63-year-old white male, CHF, COPD, wears 2 L oxygen at home, came in with shortness of breath, now wears oxygen up to 4 L, has been on wake up. He was positive for cocaine use, he used to take it, but he does not take it any more. . Denies fever or chills. HOME MEDICATIONS: 1. Lasix 40 b.i.d. 2. Ativan 0.5 daily. 3. Albuterol HFA p.r.n. 4. DuoNeb q.i.d. 5. Aspirin 81 daily. 6. Farxiga 10 mg daily. 7. Perforomist 20 mcg b.i.d. 8. 15 q.6. 9. Entresto 1 b.i.d. 10.Aldactone 25 daily. 11.Neurontin 600 t.i.d. ALLERGIES: Penicillin, metformin. REVIEW OF SYSTEMS: A 14-point review of systems otherwise negative. PAST MEDICAL HISTORY: Coronary artery disease, CHF, CVA, TIA, diabetes mellitus, dyslipidemia, hypertension, liver disease, myocardial infarction, renal disease, . PAST SURGICAL HISTORY: Cholecystectomy, heart catheterization with stent, tonsillectomy. FAMILY HISTORY: Father with coronary artery disease, diabetes mellitus, hypertension. PHYSICAL EXAMINATION: VITAL SIGNS: Stable. Afebrile. Blood pressure 182/81, heart rate around 100, respiratory rate 25 to 30, pulse 70s to as mentioned 100. HEENT: Pupils equal, round, reactive. GENERAL: Thin, cachectic. INTEGUMENT: Dry skin turgor. Dry mucous membranes. CARDIOVASCULAR: S1, S2. LUNGS: Rales at the base. HEMATOLOGY: Negative for Homans. PSYCH: Fair mood and affect. ASSESSMENT: Hypertension acceleration, dehydration, acute on chronic anemia, CHF, COPD, both exacerbation, prognosis guarded. Check for aspiration pneumonia. Please see further orders. MMODL / IJN: [id number] /
--- NOTE | 2024-01-09 13:29 | CDI ---
Documentation Clarification Form Date: 01/09/2024 01:20:33 PM From: Abiola Dennis Phone: Admit Date: 12/26/2023 02:30:00 PM Patient Name: Jacobo Hall Visit Number: [id number] Discharge Date: 12/31/2023 04:20:00 PM ATTENTION: The Clinical Documentation Specialists (CDI) and [facility] Coding Staff appreciate your assistance in clarifying documentation. Please respond to the clarification below the line at the bottom and electronically sign. The CDI & [facility] Coding staff will review the response and follow-up if needed. Please note: Queries are made part of the Legal Health Record. If you have any questions, please contact the author of this message via ITS. Dr. Eric Loyola Thank you for acknowledging the previous query; however, it lacked the clarification requested. Your patient has anabnormallab value: Hemoglobin A1C 8. Please clarify if there is an additional diagnosis and/or clinical significance related to this value. History/Risk Factors: 63yo M, NIDDMII, ACDHF,CAD, ICM,CKD, CHRF on O2,COPD, HTN,HLD, marijuanacocaine use, formerETOH abuse,Rx noncompliance,smoker Clinical indicators: POCGlucose: 12/25 152 12/26 152-309 12/27 176-415 Treatment: Insulin Aspart 0 unit; Insulin Aspart (Novolog) 100 Unit/Ml Vial SQ 9u HomeDMMeds: Dapagliflozin Propanediol [Farxiga] 10 mg PO DAILY Is there an additional diagnosis and/or clinical significance related to the above lab result/information? [ ]Diabetes Mellitus with hyperglycemia [ ] Diabetes mellitus with hyperuricemia [ ] No additional diagnosis/Not clinically significant [ ] other, please specify [ ] Unable to determine (Template LastRevised: July 2020) MTDD
--- NOTE | 2024-01-23 20:51 | PN ---
PROGRESS NOTE Diabetes mellitus with hyperglycemia. MMODL / IJN: [id number] /
== END 2023-12-31 16:20 | disposition home or self-care (01) | DRG 194 ==
LOC: EC 12:45 → 6NMEDSUR 14:30 → OBSVTOIN 14:30 → INTOOBSV 14:30 → 6NMEDSUR 16:02
PROVIDERS: ADMIT Family Medicine; ATTEND Family Medicine
DX: I13.0 Hypertensive heart and chronic kidney disease with heart failure and stage 1 through stage 4 chronic kidney disease, or unspecified chronic kidney disease (principal); R78.81 Bacteremia; I50.23 Acute on chronic systolic (congestive) heart failure; J96.11 Chronic respiratory failure with hypoxia; M48.56XA Collapsed vertebra, not elsewhere classified, lumbar region, initial encounter for fracture; I69.354 Hemiplegia and hemiparesis following cerebral infarction affecting left non-dominant side; J44.1 Chronic obstructive pulmonary disease with (acute) exacerbation; E11.42 Type 2 diabetes mellitus with diabetic polyneuropathy; E11.22 Type 2 diabetes mellitus with diabetic chronic kidney disease; F14.10 Cocaine abuse, uncomplicated; F11.11 Opioid abuse, in remission; E11.65 Type 2 diabetes mellitus with hyperglycemia; N18.31 Chronic kidney disease, stage 3a; E11.69 Type 2 diabetes mellitus with other specified complication; E86.0 Dehydration; Z99.81 Dependence on supplemental oxygen; Z79.891 Long term (current) use of opiate analgesic; F06.30 Mood disorder due to known physiological condition, unspecified; F10.11 Alcohol abuse, in remission; B95.4 Other streptococcus as the cause of diseases classified elsewhere; T50.1X6A Underdosing of loop [high-ceiling] diuretics, initial encounter; I25.5 Ischemic cardiomyopathy; R29.6 Repeated falls; G89.29 Other chronic pain; F17.210 Nicotine dependence, cigarettes, uncomplicated; T50.916A Underdosing of multiple unspecified drugs, medicaments and biological substances, initial encounter; Z91.128 Patient's intentional underdosing of medication regimen for other reason; E79.0 Hyperuricemia without signs of inflammatory arthritis and tophaceous disease; M43.16 Spondylolisthesis, lumbar region; M47.26 Other spondylosis with radiculopathy, lumbar region; M48.061 Spinal stenosis, lumbar region without neurogenic claudication; I25.10 Atherosclerotic heart disease of native coronary artery without angina pectoris; I44.7 Left bundle-branch block, unspecified; F42.9 Obsessive-compulsive disorder, unspecified; M25.78 Osteophyte, vertebrae; E78.5 Hyperlipidemia, unspecified; Z88.0 Allergy status to penicillin; Z79.899 Other long term (current) drug therapy; Z79.82 Long term (current) use of aspirin; Z79.84 Long term (current) use of oral hypoglycemic drugs; Z79.51 Long term (current) use of inhaled steroids; Z95.5 Presence of coronary angioplasty implant and graft; I25.2 Old myocardial infarction; Z91.81 History of falling; Z86.14 Personal history of Methicillin resistant Staphylococcus aureus infection; Z88.8 Allergy status to other drugs, medicaments and biological substances
CPT/HCPCS: 36415; 71046; 71275; 72100; 72148; 73502; 80048; 80053; 80306; 81001; 82140; 82150; 83036; 83605; 83735; 83880; 84145; 84439; 84443; 84484; 85025; 85379; 85610; 85652; 85730; 86140; 87040; 87077; 87186; 93005; 93306; 93970; 94640; 94760; 96374; 96375; 96376; 99285

== ENCOUNTER 2024-02-01 14:22 | Inpatient (IN) | payer MEDICARE, OTHER ==
--- NOTE | 2024-02-01 14:35 | ED ---
General Adult HPI - General Source: patient, RN notes reviewed Mode of arrival: ambulatory Limitations: no limitations <Dk Henao - Last Filed: 02/01/24 14:34> <Leonid White - Last Filed: 02/01/24 16:33> - General Chief complaint: Shortness of Breath Stated complaint: STANLEY Time Seen by Provider: 02/01/24 14:28 - History of Present Illness Initial comments: Quick [id number] male presents emerged part she went shortness of breath. He states he is having increasing shortness of breath last 3 days he does have a history of CHF, renal disease states he feels like his lungs are filling up with fluid. Patient states it is worse with exertion does have mild chest discomfort. (Dk Henao) - Related Data Home Medications Medication Instructions Recorded Confirmed Albuterol Sulfate [Albuterol 2 puff PO RT-Q4H PRN 12/26/23 12/26/23 Sulfate Hfa] Furosemide [Lasix] 40 mg PO BID 12/26/23 12/26/23 LORazepam [Ativan] 0.5 mg PO DAILY PRN 12/26/23 12/26/23 Previous Rx's Medication Instructions Recorded Atorvastatin [Lipitor] 40 mg PO HS 90 Days #90 tab 04/22/23 Metoprolol Succinate (ER) [Toprol 25 mg PO DAILY 90 Days #90 tab 04/22/23 XL] Ipratropium-Albuterol Nebulize 3 ml INHALATION RT-QID 30 Days 11/11/23 [Duoneb 0.5 mg-3 mg/3 ml Soln] #120 each Acetaminophen Tab [Tylenol] 500 mg PO Q6HR PRN tab 12/31/23 Aspirin 81 mg PO DAILY tab 12/31/23 Dapagliflozin Propanediol [Farxiga] 10 mg PO DAILY 30 Days #30 tab 12/31/23 Formoterol Fumarate [Perforomist] 20 mcg INHALATION RT-BID 30 Days 12/31/23 #60 ml Gabapentin [Neurontin] 600 mg PO TID 90 Days #90 cap 12/31/23 Mirtazapine [Remeron] 15 mg PO HS 30 Days #30 tab 12/31/23 Sacubitril/Valsartan [Entresto 49 1 each PO BID 30 Days #60 tab 12/31/23 mg-51 mg Tablet] Spironolactone [Aldactone] 25 mg PO DAILY 90 Days #90 tab 12/31/23 oxyCODONE HCL [OxyIR] 15 mg PO Q6HR PRN tab 12/31/23 Allergies Allergy/AdvReac Type Severity Reaction Status Date / Time Penicillins Allergy Unknown Verified 02/01/24 14:32 Childhood metformin AdvReac Mild Nausea & Verified 02/01/24 14:32 Vomiting & Diarrhea Review of Systems ROS Other: All systems not noted in ROS Statement are negative. <Dk Henao - Last Filed: 02/01/24 14:34> ROS Other: All systems not noted in ROS Statement are negative. <Leonid White - Last Filed: 02/01/24 16:33> ROS Statement: Those systems with pertinent positive or pertinent negative responses have been documented in the HPI. Past Medical History Past Medical History: Coronary Artery Disease (CAD), Heart Failure, COPD, CVA/TIA, Diabetes Mellitus, Eye Disorder, Hyperlipidemia, Hypertension, Liver Disease, Myocardial Infarction (AL), Renal Disease Additional Past Medical History / Comment(s): Iischemic cardiomyopathy, PVCs, CVA 2019 with L sided weakness, chronic low back pain d/t vertebral fractures years ago as well as cervical pinched nerves, DDD, IDDM type II, neuropathy bilateral hands/legs and feet, pt states he can barely see with L eye and R eye vision is not very good/he is unsure why but believes it is d/t diabetes, liver disease/hepatitis C/ETOH abuse, recurrent ascities/paracentesis, recent R hip fracture d/t fall/recurrent falls. Last Myocardial Infarction Date:: October 2018 History of Any Multi-Drug Resistant Organisms: MRSA Date of last positivie culture/infection: 11/23/20 MDRO Source:: FOOT MRSA Past Surgical History: Cholecystectomy, Heart Catheterization, Heart Catheterization With Stent, Tonsillectomy Additional Past Surgical History / Comment(s): R heel I&D, colonoscopy. Past Anesthesia/Blood Transfusion Reactions: No Reported Reaction Date of Last Stent Placement:: 2011 Past Psychological History: Anxiety, Bipolar, Depression Smoking Status: Current every day smoker Past Alcohol Use History: None Reported Past Drug Use History: Marijuana - Past Family History Mother Family Medical History: Cancer Father Family Medical History: Coronary Artery Disease (CAD), Diabetes Mellitus, Hypertension <Dedoe,Dk M - Last Filed: 02/01/24 14:34> General Exam Limitations: no limitations <Dk Henao - Last Filed: 02/01/24 14:34> - General Exam Comments Initial Comments: Visual Physical Exam Vital signs reviewed General: Well-appearing, nontoxic, no acute distress. Head: Normocephalic, atraumatic Eyes: PERRLA, EOMI ENT: Airway patent Chest: Nonlabored breathing Skin: No visual rash, normal skin tone Neuro: Alert and oriented 3 Musculoskeletal: No gross abnormalities (Dk Henao) Course Vital Signs 02/01/24 02/01/24 02/01/24 14:28 15:14 15:36 Temperature 97.8 F Pulse Rate 108 H 105 H 97 Respiratory 24 Rate Blood Pressure 169/96 O2 Sat by Pulse 97 Oximetry Medical Decision Making <Dk Henao - Last Filed: 02/01/24 14:34> - Lab Data Result diagrams: 02/01/24 14:34 02/01/24 14:34 <Leonid White - Last Filed: 02/01/24 16:33> - Medical Decision Making I completed the quick note portion of this chart signed Dk Henao PA-C (Dk Henao) EKG is interpreted by myself. EKG shows a sinus tachycardia at 102 bpm W[place] 160 QRS 147 QT interval is 364 QTc is 423. Patient's EKG shows no ST segment elevation or depression. Patient has not left bundle branch block Was pt. sent in by a medical professional or institution (Dr. PA, DONOR SERVICES TECHNICIAN, urgent care, hospital, or penitentiary...) When possible be specific @ -No Did you speak to anyone other than the patient for history (EMS, parent, family, police, friend...)? What history was obtained from this source @ -No Did you review nursing and triage notes (agree or disagree)? Why? @ -I reviewed and agree with nursing and triage notes Were old charts reviewed (outside hosp., previous admission, EMS record, old EKG, old radiological studies, urgent care reports/EKG's, penitentiary records)? Report findings @ -No old charts were reviewed Differential Diagnosis? @ -Differential Dyspnea: Coronary syndrome, arrhythmia, tamponade, asthma, COPD, pulmonary embolism, pneumonia, pneumothorax, pulmonary effusion, anaphylaxis, diabetic ketoacidosis, flailed chest, pulmonary contusion, diaphragmatic rupture, anemia, neuromuscular, this is not meant to be an all-inclusive list. EKG interpreted by me (3pts min.). @ -As above X-rays interpreted by me (1pt min.). @ -Chest x-ray shows mild pulmonary edema CT interpreted by me (1pt min.). @ -None done U/S interpreted by me (1pt. min.). @ -None done What testing was considered but not performed or refused? (CT, X-rays, U/S, labs)? Why? @ -None What meds were considered but not given or refused? Why? @ -None Did you discuss the management of the patient with other professionals (professionals i.e. , PA, DONOR SERVICES TECHNICIAN, lab, RT, psych nurse, outreach and education social worker, chief of safety and protection, teacher, facilities officer, immigration case worker)? Give summary @ -I spoke with Dr. Loyola he agreed to admit the patient admit the patient Was smoking cessation discussed for >3mins.? @ -No Was critical care preformed (if so, how long)? @ -35 minutes Were there social determinants of health that impacted care today? How? (Homelessness, low income, unemployed, alcoholism, drug addiction, transportation, low edu. Level, literacy, decrease access to med. care, skilled nursing, rehab)? @ -No Was there de-escalation of care discussed even if they declined (Discuss DNR or withdrawal of care, Hospice)? DNR status @ -No What co-morbidities impacted this encounter? (DM, HTN, Smoking, COPD, CAD, Cancer, CVA, ARF, Chemo, Hep., AIDS, mental health diagnosis, sleep apnea, morbid obesity)? @ -None Was patient admitted /discharged? Hospital course, mention meds given and route, prescriptions, significant lab abnormalities, going to OR and other pertinent info. @ -Patient received multiple breathing treatments steroids and some Lasix because of slight pulmonary edema on the x-ray. Patient stated he was feeling better. Patient did get Rocephin as well patient will be admitted to Dr. Loyola. Undiagnosed new problem with uncertain prognosis? @ -No Drug Therapy requiring intensive monitoring for toxicity (Heparin, Nitro, Insulin, Cardizem)? @ -No Were any procedures done? @ -No Diagnosis/symptom? @ -COPD exacerbation Acute, or Chronic, or Acute on Chronic? @ -Acute Uncomplicated (without systemic symptoms) or Complicated (systemic symptoms)? @ -Complicated Side effects of treatment? @ -No Exacerbation, Progression, or Severe Exacerbation? @ -No Poses a threat to life or bodily function? How? (Chest pain, USA, AL, pneumonia, PE, COPD, DKA, ARF, appy, cholecystitis, CVA, Diverticulitis, Homicidal, Suicidal, threat to staff... and all critical care pts) @ -Yes this could lead to hypoxia and endorgan dysfunction Diagnosis/symptom? @ -Acute pulmonary edema Acute, or Chronic, or Acute on Chronic? @ -Acute Uncomplicated (without systemic symptoms) or Complicated (systemic symptoms)? @ -Comp Side effects of treatment? @ -None Exacerbation, Progression, or Severe Exacerbation] @ -No Poses a threat to life or bodily function? @ -Yes this can lead to hypoxia and endorgan dysfunction (Leonid White) - Lab Data Lab Results 02/01/24 02/01/24 02/01/24 Range/Units 14:34 14:34 14:34 WBC 6.8 (3.8-10.6) k/uL RBC 4.38 (4.30-5.90) m/uL Hgb 13.1 (13.0-17.5) gm/dL Hct 40.1 (39.0-53.0) % MCV 91.5 (80.0-100.0) fL MCH 29.9 (25.0-35.0) pg MCHC 32.7 (31.0-37.0) g/dL RDW 14.5 (11.5-15.5) % Plt Count 197 (150-450) k/uL MPV 8.7 Neutrophils % 79 % Lymphocytes % 10 % Monocytes % 6 % Eosinophils % 4 % Basophils % 1 % Neutrophils # 5.4 (1.3-7.7) k/uL Lymphocytes # 0.7 L (1.0-4.8) k/uL Monocytes # 0.4 (0-1.0) k/uL Eosinophils # 0.3 (0-0.7) k/uL Basophils # 0.0 (0-0.2) k/uL Hypochromasia Slight PT 10.2 (10.0-12.5) sec INR 0.9 (<1.2) APTT 24.1 (22.0-30.0) sec Sodium 136 L (137-145) mmol/L Potassium 5.1 (3.5-5.1) mmol/L Chloride 106 (98-107) mmol/L Carbon Dioxide 23 (22-30) mmol/L Anion Gap 7 mmol/L BUN 37 H (9-20) mg/dL Creatinine 1.10 (0.66-1.25) mg/dL Est GFR (CKD-EPI)AfAm 81 (>60 ml/min/1.73 sqM) Est GFR (CKD-EPI)NonAf 70 (>60 ml/min/1.73 sqM) Glucose 229 H (74-99) mg/dL Plasma Lactic Acid Adelso (0.7-2.0) mmol/L Calcium 9.2 (8.4-10.2) mg/dL Magnesium 1.7 (1.6-2.3) mg/dL Total Bilirubin 0.9 (0.2-1.3) mg/dL AST 38 (17-59) U/L ALT 29 (4-49) U/L Alkaline Phosphatase 80 (38-126) U/L Troponin I (0.000-0.034) ng/mL NT-Pro-B Natriuret Pep 18633 pg/mL Total Protein 6.8 (6.3-8.2) g/dL Albumin 4.0 (3.5-5.0) g/dL 02/01/24 02/01/24 Range/Units 14:34 14:34 WBC (3.8-10.6) k/uL RBC (4.30-5.90) m/uL Hgb (13.0-17.5) gm/dL Hct (39.0-53.0) % MCV (80.0-100.0) fL MCH (25.0-35.0) pg MCHC (31.0-37.0) g/dL RDW (11.5-15.5) % Plt Count (150-450) k/uL MPV Neutrophils % % Lymphocytes % % Monocytes % % Eosinophils % % Basophils % % Neutrophils # (1.3-7.7) k/uL Lymphocytes # (1.0-4.8) k/uL Monocytes # (0-1.0) k/uL Eosinophils # (0-0.7) k/uL Basophils # (0-0.2) k/uL Hypochromasia PT (10.0-12.5) sec INR (<1.2) APTT (22.0-30.0) sec Sodium (137-145) mmol/L Potassium (3.5-5.1) mmol/L Chloride (98-107) mmol/L Carbon Dioxide (22-30) mmol/L Anion Gap mmol/L BUN (9-20) mg/dL Creatinine (0.66-1.25) mg/dL Est GFR (CKD-EPI)AfAm (>60 ml/min/1.73 sqM) Est GFR (CKD-EPI)NonAf (>60 ml/min/1.73 sqM) Glucose (74-99) mg/dL Plasma Lactic Acid Adelso 1.4 (0.7-2.0) mmol/L Calcium (8.4-10.2) mg/dL Magnesium (1.6-2.3) mg/dL Total Bilirubin (0.2-1.3) mg/dL AST (17-59) U/L ALT (4-49) U/L Alkaline Phosphatase (38-126) U/L Troponin I 0.063 H* (0.000-0.034) ng/mL NT-Pro-B Natriuret Pep pg/mL Total Protein (6.3-8.2) g/dL Albumin (3.5-5.0) g/dL Disposition <Dk Henao - Last Filed: 02/01/24 14:34> Time of Disposition: 16:33 <eLonid White - Last Filed: 02/01/24 16:33> Clinical Impression: COPD exacerbation, Pulmonary edema Disposition: ADMITTED IP TO THIS HOSP Referrals: Eric Loyola MD [Primary Care Provider] - 1-2 days
[2024-02-01] MEDS: HYDROmorphone 1 MG/ML 1 ML SYRINGE IVP STA (15:01)
[2024-02-01] MEDS: methylPREDNISolone SOD SUCCI 125 MG/2 ML VIAL IV STA (15:02)
[2024-02-01] MEDS: ALBUTEROL NEBULIZED 2.5 MG/3 ML INHALATION STA (15:07)
[2024-02-01] MEDS: IPRATROPIUM 0.5 MG/2.5 ML NEBU INHALATION STA (15:07)
[2024-02-01 15:28] LABS: Basophils % (A) 1 %; Eosinophils # (A) 0.3 k/uL (0-0.7); Eosinophils % (A) 4 %; HCT 40.1 % (39.0-53.0); HGB 13.1 gm/dL (13.0-17.5); Hypochromasia Slight; Lymphocytes # (A) 0.7 k/uL (1.0-4.8); Lymphocytes % (A) 10 %; MCH 29.9 pg (25.0-35.0); MCHC 32.7 g/dL (31.0-37.0); MCV 91.5 fL (80.0-100.0); Mean Platelet Volume 8.7; Monocytes # (A) 0.4 k/uL (0-1.0); Monocytes % (A) 6 %; Neutrophils # (A) 5.4 k/uL (1.3-7.7); Neutrophils % (A) 79 %; Platelet Count 197 k/uL (150-450); RBC 4.38 m/uL (4.30-5.90); RDW 14.5 % (11.5-15.5); WBC 6.8 k/uL (3.8-10.6)
[2024-02-01 15:47] LABS: ALT 29 U/L (4-49); African American GFR (CKD) 81 (>60 ml/min/1.73 sqM); Anion Gap 7 mmol/L; Blood Urea Nitrogen 37 mg/dL (9-20); Calcium 9.2 mg/dL (8.4-10.2); Carbon Dioxide 23 mmol/L (22-30); Chloride 106 mmol/L (98-107); Glucose 229 mg/dL (74-99); Non-African American GFR(CKD) 70 (>60 ml/min/1.73 sqM); Sodium 136 mmol/L (137-145); Total Bilirubin 0.9 mg/dL (0.2-1.3); Total Protein 6.8 g/dL (6.3-8.2)
[2024-02-01 15:50] LABS: AST 38 U/L (17-59); Alkaline Phosphatase 80 U/L (38-126); Magnesium 1.7 mg/dL (1.6-2.3); Potassium 5.1 mmol/L (3.5-5.1)
[2024-02-01 15:52] LABS: INR 0.9 (<1.2); NT-Pro-B-Type Natriuretic Pept 20000 pg/mL; Partial Thromboplastin Time 24.1 sec (22.0-30.0); Prothrombin Time 10.2 sec (10.0-12.5)
[2024-02-01] MEDS ORDERED: IPRATROPIUM-ALBUTEROL 3 ML NEB INHALATION PRN (15:58)
[2024-02-01] MEDS ORDERED: NALOXONE 0.4 MG/ML 1 ML VIAL IVP PRN (15:58)
[2024-02-01] MEDS: cefTRIAXone IN SWFI 1,000 MG/10 ML SYRINGE IVP STA ×2 (16:25→16:45)
--- NOTE | 2024-02-01 16:28 | XR ---
EXAMINATION TYPE: XR chest 2V DATE OF EXAM: 02/01/2024 4:22 PM CLINICAL INDICATION:Male, 64 years old with history of difficulty breathing; [facility] COMPARISON: Chest radiographs from 12/18/2023 TECHNIQUE: XR chest 2V Frontal and lateral views of the chest. FINDINGS: Lungs/Pleura: There is redemonstration of a trace left pleural effusion, similar when compared to the prior study from November 2023. No pneumothorax. Pulmonary vascularity: Mild pulmonary vascular congestion. Heart/mediastinum: Cardiomediastinal silhouette is unremarkable. Musculoskeletal: No acute osseous pathology. IMPRESSION: Overall stable exam demonstrating mild pulmonary vascular congestion and trace left pleural effusion. Correlate with signs/symptoms of heart failure.
[2024-02-01] MEDS: FUROSEMIDE 10 MG/ML 10 ML VIAL IV STA (16:37)
[2024-02-01] MEDS: HYDROmorphone 0.5 MG/0.5 ML SYRINGE IVP STA (16:44)
[2024-02-01] MEDS: AMOXIC-POT CLAV 875-125MG 1 EACH TAB PO SCH (16:45)
[2024-02-01] MEDS: IPRATROPIUM-ALBUTEROL 3 ML NEB INHALATION SCH ×2 (17:44→20:52)
[2024-02-01] MEDS ORDERED: LORazepam 0.5 MG TAB PO PRN (17:54)
[2024-02-01] MEDS: methylPREDNISolone SOD SUCCI 125 MG/2 ML VIAL IV SCH (18:41)
[2024-02-01] MEDS: GABAPENTIN 300 MG CAP PO SCH (20:15)
[2024-02-01] MEDS: FORMOTEROL FUMARATE 20 MCG/2 ML NEBU INHALATION SCH (20:50)
[2024-02-01 20:56] LABS: Glucose,Whole Blood 517 mg/dL (70-110)
[2024-02-01] MEDS: MIRTAZAPINE 15 MG TAB PO SCH (21:45)
[2024-02-01] MEDS ORDERED: DEXTROSE 50% SYRINGE 50 ML IVP PRN ×2 (21:56)
[2024-02-01] MEDS: LORazepam 2 MG/ML INJ IV PRN (22:31)
[2024-02-01] MEDS: ATORVASTATIN 40 MG TAB PO SCH (22:31)
[2024-02-01] MEDS: HYDROmorphone 1 MG/ML 1 ML SYRINGE IVP PRN (22:32)
[2024-02-01] MEDS: INSULIN ASPART (NovoLOG) 100 UNIT/ML VIAL SQ SCH (22:32)
[2024-02-01 22:55] VITALS: TEMP 98.6
[2024-02-01 23:04] LABS: Amphetamine Screen,Urine Not Detected (NotDetected); Barbiturate Screen,Urine Not Detected (NotDetected); Benzodiazepines Screen,Urine Not Detected (NotDetected); Cocaine Screen,Urine Detected (NotDetected); Methadone Screen, Urine Not Detected (NotDetected); Opiate Screen,Urine Detected (NotDetected); Oxycodone Screen, Urine Detected (NotDetected); Phencyclidine Screen,Urine Not Detected (NotDetected); Tricyclic Antidepressant,Urine Not Detected (NotDetected); Urn Cannabinoid Scrn Not Detected (NotDetected)
[2024-02-02] MEDS ORDERED: SACUBITRIL/VALSARTAN 49 MG-51 MG TABLET PO ONE (00:01)
[2024-02-02 01:29] VITALS: RESP 18
[2024-02-02] MEDS: SACUBITRIL/VALSARTAN 49 MG-51 MG TABLET PO SCH (03:32)
[2024-02-02] MEDS: FUROSEMIDE 10 MG/ML 10 ML VIAL IV SCH (03:40)
[2024-02-02 05:26] VITALS: BP 115/57; PULSE 79
[2024-02-02 06:19] LABS: Glucose,Whole Blood 280 mg/dL (70-110)
[2024-02-02] MEDS ORDERED: ASPIRIN 81 MG PO SCH (09:00)
[2024-02-02] MEDS ORDERED: DAPAGLIFLOZIN PROPANEDIOL 10 MG TABLET PO SCH (09:00)
[2024-02-02] MEDS ORDERED: METOPROLOL SUCCINATE (ER) 25 MG TAB.ER.24H PO SCH (09:00)
[2024-02-02] MEDS ORDERED: SPIRONOLACTONE 25 MG TAB PO SCH (09:00)
[2024-02-02] MEDS ORDERED: SPIRONOLACTONE 25 MG TAB ONE (09:33)
[2024-02-02] MEDS ORDERED: METOPROLOL SUCCINATE (ER) 25 MG TAB.ER.24H PO ONE (09:33)
[2024-02-02] MEDS ORDERED: GABAPENTIN 300 MG CAP ONE ×3 (09:33→20:38)
[2024-02-02] MEDS ORDERED: AMOXIC-POT CLAV 875-125MG 1 EACH TAB ONE ×2 (09:33→20:39)
[2024-02-02] MEDS ORDERED: DAPAGLIFLOZIN PROPANEDIOL 10 MG TABLET ONE (09:33)
[2024-02-02] MEDS ORDERED: ASPIRIN 81 MG ONE (09:33)
[2024-02-02] MEDS ORDERED: HYDROmorphone 1 MG/ML 1 ML SYRINGE ONE ×3 (09:34→20:42)
[2024-02-02] MEDS ORDERED: FUROSEMIDE 10 MG/ML 10 ML VIAL ONE ×3 (09:45→23:26)
[2024-02-02 11:18] LABS: Glucose,Whole Blood 506 mg/dL (70-110)
[2024-02-02 11:18] LABS: Glucose,Whole Blood 481 mg/dL (70-110)
[2024-02-02] MEDS ORDERED: methylPREDNISolone SOD SUCCI 125 MG/2 ML VIAL ONE ×3 (12:17→23:26)
[2024-02-02] MEDS ORDERED: INSULIN ASPART (NovoLOG) 100 UNIT/ML VIAL SQ ONE ×2 (12:18→20:40)
[2024-02-02] MEDS ORDERED: LORazepam 2 MG/ML INJ ONE ×2 (12:23→18:07)
[2024-02-02] MEDS ORDERED: IPRATROPIUM-ALBUTEROL 3 ML NEB ONE ×2 (15:02→19:37)
[2024-02-02 16:13] LABS: Glucose,Whole Blood 254 mg/dL (70-110)
[2024-02-02] MEDS ORDERED: FORMOTEROL FUMARATE 20 MCG/2 ML NEBU INHALATION ONE (19:37)
[2024-02-02 20:29] LABS: Glucose,Whole Blood 162 mg/dL (70-110)
[2024-02-02] MEDS ORDERED: ATORVASTATIN 40 MG TAB ONE (20:39)
[2024-02-02] MEDS ORDERED: MIRTAZAPINE 15 MG TAB ONE (20:39)
[2024-02-03] MEDS ORDERED: IPRATROPIUM-ALBUTEROL 3 ML NEB ONE ×3 (00:01→20:23)
[2024-02-03] MEDS ORDERED: SACUBITRIL/VALSARTAN 49 MG-51 MG TABLET PO ONE (00:01)
[2024-02-03] MEDS ORDERED: HYDROmorphone 1 MG/ML 1 ML SYRINGE ONE ×6 (00:12→23:17)
[2024-02-03] MEDS ORDERED: LORazepam 2 MG/ML INJ ONE ×3 (02:40→20:10)
[2024-02-03] MEDS ORDERED: methylPREDNISolone SOD SUCCI 125 MG/2 ML VIAL ONE ×4 (05:41→23:16)
[2024-02-03 06:14] LABS: Glucose,Whole Blood 498 mg/dL (70-110)
[2024-02-03] MEDS ORDERED: INSULIN ASPART (NovoLOG) 100 UNIT/ML VIAL SQ ONE ×4 (06:23→20:26)
[2024-02-03] MEDS ORDERED: FORMOTEROL FUMARATE 20 MCG/2 ML NEBU INHALATION ONE ×2 (07:59→20:23)
[2024-02-03] MEDS ORDERED: GABAPENTIN 300 MG CAP ONE ×3 (09:03→20:11)
[2024-02-03] MEDS ORDERED: SPIRONOLACTONE 25 MG TAB ONE (09:03)
[2024-02-03] MEDS ORDERED: AMOXIC-POT CLAV 875-125MG 1 EACH TAB ONE ×2 (09:03→20:11)
[2024-02-03] MEDS ORDERED: FUROSEMIDE 10 MG/ML 10 ML VIAL ONE ×3 (09:04→23:16)
[2024-02-03] MEDS ORDERED: METOPROLOL SUCCINATE (ER) 25 MG TAB.ER.24H PO ONE (09:04)
[2024-02-03] MEDS ORDERED: DAPAGLIFLOZIN PROPANEDIOL 10 MG TABLET ONE (09:04)
[2024-02-03] MEDS ORDERED: ASPIRIN 81 MG ONE (09:04)
[2024-02-03 11:33] LABS: Glucose,Whole Blood 484 mg/dL (70-110)
[2024-02-03 16:41] LABS: Glucose,Whole Blood 497 mg/dL (70-110)
[2024-02-03] MEDS ORDERED: ATORVASTATIN 40 MG TAB ONE (20:11)
[2024-02-03 20:18] LABS: Glucose,Whole Blood 199 mg/dL (70-110)
[2024-02-04] MEDS ORDERED: INSULIN DETEMIR (LEVEMIR) 100 UNIT/ML SYR SQ ONE (00:01)
[2024-02-04] MEDS ORDERED: IPRATROPIUM-ALBUTEROL 3 ML NEB ONE ×2 (00:01→07:53)
[2024-02-04] MEDS ORDERED: SACUBITRIL/VALSARTAN 49 MG-51 MG TABLET PO ONE (00:01)
[2024-02-04] MEDS ORDERED: LORazepam 2 MG/ML INJ ONE ×4 (01:43→21:17)
[2024-02-04] MEDS ORDERED: HYDROmorphone 1 MG/ML 1 ML SYRINGE ONE ×5 (04:24→21:17)
[2024-02-04] MEDS ORDERED: methylPREDNISolone SOD SUCCI 125 MG/2 ML VIAL ONE ×2 (05:50→21:14)
[2024-02-04 05:56] LABS: Glucose,Whole Blood >600 mg/dL (70-110)
[2024-02-04 05:58] LABS: Glucose,Whole Blood 583 mg/dL (70-110)
[2024-02-04] MEDS ORDERED: INSULIN ASPART (NovoLOG) 100 UNIT/ML VIAL SQ ONE ×3 (06:03→17:04)
[2024-02-04 06:56] LABS: Glucose,Whole Blood 562 mg/dL (70-110)
[2024-02-04] MEDS ORDERED: FORMOTEROL FUMARATE 20 MCG/2 ML NEBU INHALATION ONE (07:53)
[2024-02-04] MEDS ORDERED: GABAPENTIN 300 MG CAP ONE ×3 (08:58→20:57)
[2024-02-04] MEDS ORDERED: SPIRONOLACTONE 25 MG TAB ONE (08:58)
[2024-02-04] MEDS ORDERED: AMOXIC-POT CLAV 875-125MG 1 EACH TAB ONE ×2 (08:59→20:57)
[2024-02-04] MEDS ORDERED: METOPROLOL SUCCINATE (ER) 25 MG TAB.ER.24H PO ONE (08:59)
[2024-02-04] MEDS ORDERED: ASPIRIN 81 MG ONE (08:59)
[2024-02-04] MEDS ORDERED: FUROSEMIDE 10 MG/ML 10 ML VIAL ONE ×2 (08:59→20:57)
[2024-02-04] MEDS ORDERED: DAPAGLIFLOZIN PROPANEDIOL 10 MG TABLET ONE (08:59)
[2024-02-04 12:00] LABS: Glucose,Whole Blood 368 mg/dL (70-110)
[2024-02-04 16:57] LABS: Glucose,Whole Blood 275 mg/dL (70-110)
[2024-02-04 20:04] LABS: Glucose,Whole Blood 142 mg/dL (70-110)
[2024-02-04] MEDS ORDERED: ATORVASTATIN 40 MG TAB ONE (20:57)
[2024-02-04] MEDS ORDERED: MIRTAZAPINE 15 MG TAB ONE (20:58)
[2024-02-05] MEDS ORDERED: DEXTROSE 5%-0.45% NACL 1,000 ML BAG IV ONE (00:01)
[2024-02-05] MEDS ORDERED: SACUBITRIL/VALSARTAN 49 MG-51 MG TABLET PO ONE (00:01)
[2024-02-05] MEDS ORDERED: INSULIN DETEMIR (LEVEMIR) 100 UNIT/ML SYR SQ ONE (00:01)
[2024-02-05 06:25] LABS: Glucose,Whole Blood 196 mg/dL (70-110)
[2024-02-05] MEDS ORDERED: INSULIN ASPART (NovoLOG) 100 UNIT/ML VIAL SQ ONE ×4 (06:32→21:30)
[2024-02-05] MEDS ORDERED: FORMOTEROL FUMARATE 20 MCG/2 ML NEBU INHALATION ONE ×2 (07:53→20:00)
[2024-02-05] MEDS ORDERED: IPRATROPIUM-ALBUTEROL 3 ML NEB ONE ×3 (07:54→20:00)
[2024-02-05] MEDS ORDERED: ASPIRIN 81 MG ONE (09:21)
[2024-02-05] MEDS ORDERED: AMOXIC-POT CLAV 875-125MG 1 EACH TAB ONE ×2 (09:21→21:13)
[2024-02-05] MEDS ORDERED: SPIRONOLACTONE 25 MG TAB ONE (09:23)
[2024-02-05] MEDS ORDERED: GABAPENTIN 300 MG CAP ONE ×3 (09:23→21:12)
[2024-02-05] MEDS ORDERED: FUROSEMIDE 10 MG/ML 2 ML VIAL ONE ×2 (09:23)
[2024-02-05] MEDS ORDERED: METOPROLOL SUCCINATE (ER) 25 MG TAB.ER.24H PO ONE (09:23)
[2024-02-05] MEDS ORDERED: DAPAGLIFLOZIN PROPANEDIOL 10 MG TABLET ONE ×2 (09:24→21:17)
[2024-02-05 11:30] LABS: Glucose,Whole Blood 228 mg/dL (70-110)
[2024-02-05] MEDS ORDERED: methylPREDNISolone SOD SUCCI 40 MG/ML 1 ML VIAL ONE (12:21)
[2024-02-05] MEDS ORDERED: HYDROmorphone 1 MG/ML 1 ML SYRINGE ONE ×3 (12:22→21:25)
[2024-02-05 16:23] LABS: Glucose,Whole Blood 179 mg/dL (70-110)
[2024-02-05 20:22] LABS: Glucose,Whole Blood 389 mg/dL (70-110)
[2024-02-05] MEDS ORDERED: ATORVASTATIN 40 MG TAB ONE (21:13)
[2024-02-05] MEDS ORDERED: methylPREDNISolone SOD SUCCI 125 MG/2 ML VIAL ONE (21:13)
[2024-02-05] MEDS ORDERED: MIRTAZAPINE 15 MG TAB ONE (21:13)
[2024-02-06] MEDS ORDERED: INSULIN DETEMIR (LEVEMIR) 100 UNIT/ML SYR SQ ONE (00:01)
[2024-02-06] MEDS ORDERED: AMOXIC-POT CLAV 875-125MG 1 EACH TAB ONE ×2 (00:01→10:21)
[2024-02-06] MEDS ORDERED: SACUBITRIL/VALSARTAN 49 MG-51 MG TABLET PO ONE (00:01)
[2024-02-06] MEDS ORDERED: DEXTROSE 5%-0.45% NACL 1,000 ML BAG IV ONE (00:01)
[2024-02-06 05:56] LABS: Glucose,Whole Blood 307 mg/dL (70-110)
[2024-02-06] MEDS ORDERED: methylPREDNISolone SOD SUCCI 125 MG/2 ML VIAL ONE ×3 (06:01→20:26)
[2024-02-06] MEDS ORDERED: HYDROmorphone 1 MG/ML 1 ML SYRINGE ONE ×4 (06:07→20:27)
[2024-02-06] MEDS ORDERED: INSULIN ASPART (NovoLOG) 100 UNIT/ML VIAL SQ ONE ×3 (06:41→20:26)
[2024-02-06] MEDS ORDERED: LORazepam 2 MG/ML INJ ONE ×2 (06:44→20:28)
[2024-02-06] MEDS ORDERED: FORMOTEROL FUMARATE 20 MCG/2 ML NEBU INHALATION ONE ×2 (07:51→19:37)
[2024-02-06] MEDS ORDERED: IPRATROPIUM-ALBUTEROL 3 ML NEB ONE ×2 (07:51→19:37)
[2024-02-06] MEDS ORDERED: SPIRONOLACTONE 25 MG TAB ONE (10:20)
[2024-02-06] MEDS ORDERED: GABAPENTIN 300 MG CAP ONE ×2 (10:20→20:25)
[2024-02-06] MEDS ORDERED: ASPIRIN 81 MG ONE (10:21)
[2024-02-06] MEDS ORDERED: DAPAGLIFLOZIN PROPANEDIOL 10 MG TABLET ONE (10:21)
[2024-02-06] MEDS ORDERED: METOPROLOL SUCCINATE (ER) 25 MG TAB.ER.24H PO ONE (10:21)
[2024-02-06 11:33] LABS: Glucose,Whole Blood 73 mg/dL (70-110)
[2024-02-06 13:24] LABS: Glucose,Whole Blood 176 mg/dL (70-110)
[2024-02-06 16:50] LABS: Glucose,Whole Blood 229 mg/dL (70-110)
[2024-02-06] MEDS ORDERED: ATORVASTATIN 40 MG TAB ONE (20:26)
[2024-02-06] MEDS ORDERED: MIRTAZAPINE 15 MG TAB ONE (20:26)
[2024-02-07] MEDS ORDERED: INSULIN DETEMIR (LEVEMIR) 100 UNIT/ML SYR SQ ONE (00:01)
[2024-02-07] MEDS ORDERED: SACUBITRIL/VALSARTAN 49 MG-51 MG TABLET PO ONE (00:01)
[2024-02-07] MEDS ORDERED: SODIUM CHLORIDE 0.9% 1,000 ML BAG ONE (00:01)
[2024-02-07] MEDS ORDERED: HYDROmorphone 1 MG/ML 1 ML SYRINGE ONE ×5 (00:25→21:34)
[2024-02-07] MEDS ORDERED: methylPREDNISolone SOD SUCCI 125 MG/2 ML VIAL ONE ×4 (02:57→21:33)
[2024-02-07] MEDS ORDERED: IPRATROPIUM-ALBUTEROL 3 ML NEB ONE ×3 (03:13→08:00)
[2024-02-07] MEDS ORDERED: INSULIN ASPART (NovoLOG) 100 UNIT/ML VIAL SQ ONE ×3 (06:13→21:34)
[2024-02-07] MEDS ORDERED: FORMOTEROL FUMARATE 20 MCG/2 ML NEBU INHALATION ONE (08:00)
[2024-02-07] MEDS ORDERED: SPIRONOLACTONE 25 MG TAB ONE (10:10)
[2024-02-07] MEDS ORDERED: METOPROLOL SUCCINATE (ER) 25 MG TAB.ER.24H PO ONE (10:11)
[2024-02-07] MEDS ORDERED: GABAPENTIN 300 MG CAP ONE ×3 (10:11→21:33)
[2024-02-07] MEDS ORDERED: FUROSEMIDE 10 MG/ML 10 ML VIAL ONE (10:11)
[2024-02-07] MEDS ORDERED: ASPIRIN 81 MG ONE (10:11)
[2024-02-07] MEDS ORDERED: DAPAGLIFLOZIN PROPANEDIOL 10 MG TABLET ONE (10:12)
[2024-02-07] MEDS ORDERED: LORazepam 0.5 MG TAB ONE (12:59)
[2024-02-07] MEDS ORDERED: AMOXIC-POT CLAV 875-125MG 1 EACH TAB ONE ×2 (12:59→21:33)
[2024-02-07] MEDS ORDERED: ATORVASTATIN 40 MG TAB ONE (21:33)
[2024-02-07] MEDS ORDERED: MIRTAZAPINE 15 MG TAB ONE (21:33)
[2024-02-08] MEDS ORDERED: INSULIN DETEMIR (LEVEMIR) 100 UNIT/ML SYR SQ ONE (00:01)
[2024-02-08] MEDS ORDERED: SACUBITRIL/VALSARTAN 49 MG-51 MG TABLET PO ONE (00:01)
[2024-02-08] MEDS ORDERED: HYDROmorphone 1 MG/ML 1 ML SYRINGE ONE ×5 (01:28→21:15)
[2024-02-08] MEDS ORDERED: INSULIN ASPART (NovoLOG) 100 UNIT/ML VIAL SQ ONE ×3 (05:39→21:15)
[2024-02-08] MEDS ORDERED: methylPREDNISolone SOD SUCCI 125 MG/2 ML VIAL ONE (05:51)
[2024-02-08] MEDS ORDERED: IPRATROPIUM-ALBUTEROL 3 ML NEB ONE ×3 (07:38→15:06)
[2024-02-08] MEDS ORDERED: FORMOTEROL FUMARATE 20 MCG/2 ML NEBU INHALATION ONE ×2 (08:00→20:12)
[2024-02-08] MEDS ORDERED: DAPAGLIFLOZIN PROPANEDIOL 10 MG TABLET ONE (09:19)
[2024-02-08] MEDS ORDERED: ASPIRIN 81 MG ONE (09:19)
[2024-02-08] MEDS ORDERED: GABAPENTIN 300 MG CAP ONE ×3 (09:19→21:14)
[2024-02-08] MEDS ORDERED: AMOXIC-POT CLAV 875-125MG 1 EACH TAB ONE ×2 (09:19→21:14)
[2024-02-08] MEDS ORDERED: METOPROLOL SUCCINATE (ER) 25 MG TAB.ER.24H PO ONE (09:19)
[2024-02-08] MEDS ORDERED: SPIRONOLACTONE 25 MG TAB ONE (09:19)
[2024-02-08] MEDS ORDERED: methylPREDNISolone SOD SUCCI 40 MG/ML 1 ML VIAL ONE ×2 (12:17→21:14)
[2024-02-08] MEDS ORDERED: LORazepam 0.5 MG TAB ONE (17:12)
[2024-02-08] MEDS ORDERED: ATORVASTATIN 40 MG TAB ONE (21:15)
[2024-02-08] MEDS ORDERED: MIRTAZAPINE 15 MG TAB ONE (21:15)
[2024-02-09] MEDS ORDERED: INSULIN DETEMIR (LEVEMIR) 100 UNIT/ML SYR SQ ONE (00:01)
[2024-02-09] MEDS ORDERED: SACUBITRIL/VALSARTAN 49 MG-51 MG TABLET PO ONE (00:01)
[2024-02-09] MEDS ORDERED: HYDROmorphone 1 MG/ML 1 ML SYRINGE ONE ×5 (01:08→17:29)
[2024-02-09] MEDS ORDERED: INSULIN ASPART (NovoLOG) 100 UNIT/ML VIAL SQ ONE ×2 (06:23→12:14)
[2024-02-09] MEDS ORDERED: FORMOTEROL FUMARATE 20 MCG/2 ML NEBU INHALATION ONE ×2 (07:34→20:25)
[2024-02-09] MEDS ORDERED: IPRATROPIUM-ALBUTEROL 3 ML NEB ONE ×2 (07:35→20:25)
[2024-02-09] MEDS ORDERED: SPIRONOLACTONE 25 MG TAB ONE (09:20)
[2024-02-09] MEDS ORDERED: GABAPENTIN 300 MG CAP ONE ×2 (09:20→17:29)
[2024-02-09] MEDS ORDERED: DAPAGLIFLOZIN PROPANEDIOL 10 MG TABLET ONE (09:21)
[2024-02-09] MEDS ORDERED: ASPIRIN 81 MG ONE (09:21)
[2024-02-09] MEDS ORDERED: LORazepam 0.5 MG TAB ONE (09:21)
[2024-02-09] MEDS ORDERED: METOPROLOL SUCCINATE (ER) 25 MG TAB.ER.24H PO ONE (09:21)
[2024-02-09 11:22] LABS: Glucose,Whole Blood 274 mg/dL (70-110)
[2024-02-09] MEDS ORDERED: methylPREDNISolone SOD SUCCI 40 MG/ML 1 ML VIAL ONE (12:13)
[2024-02-09] MEDS ORDERED: amLODIPine 5 MG TAB ONE (12:14)
--- NOTE | 2024-03-06 19:24 | US ---
Patient Jacobo Hall ID [id number] EXAMINATION TYPE: US renals and bladder DATE OF EXAM: 02/08/2024 COMPARISON: THIS EXAM WAS READ DURING PACS DOWNTIME, NO PRIORS AVAILABLE. CLINICAL INDICATION: Acute kidney injury EXAM MEASUREMENTS: Right Kidney: 9.7 x 5.4 x 5.3 cm Left Kidney: 9.6 x 6.5 x 4.6 cm cm Post Void Residual Volume: mL Right Kidney: No hydronephrosis or renal calculus. Left Kidney: Simple appearing renal cortical cysts. No hydronephrosis. Bladder: Within normal limits with prostate gland protruding into the base. There is no evidence for hydronephrosis at this point in time. No nephrolithiasis is seen. No desmond s are identified. The urinary bladder is anechoic. The prostate gland is enlarged. IMPRESSION: 1. No obstructive uropathy. 2. Simple appearing left renal cyst. 3. Prostatomegaly correlate serum PSA.
== END 2024-02-09 18:49 | disposition home or self-care (01) | DRG 190 ==
LOC: EC 14:22 → 3SCARD 16:02
PROVIDERS: ADMIT Family Medicine; ATTEND Family Medicine
DX: J44.1 Chronic obstructive pulmonary disease with (acute) exacerbation (principal); J18.9 Pneumonia, unspecified organism; N17.0 Acute kidney failure with tubular necrosis; I69.354 Hemiplegia and hemiparesis following cerebral infarction affecting left non-dominant side; I50.22 Chronic systolic (congestive) heart failure; F19.139 Other psychoactive substance abuse with withdrawal, unspecified; I11.0 Hypertensive heart disease with heart failure; E11.40 Type 2 diabetes mellitus with diabetic neuropathy, unspecified; E11.65 Type 2 diabetes mellitus with hyperglycemia; J44.0 Chronic obstructive pulmonary disease with (acute) lower respiratory infection; I25.10 Atherosclerotic heart disease of native coronary artery without angina pectoris; E78.5 Hyperlipidemia, unspecified; F41.9 Anxiety disorder, unspecified; F17.210 Nicotine dependence, cigarettes, uncomplicated; Z95.5 Presence of coronary angioplasty implant and graft; Z91.198 Patient's noncompliance with other medical treatment and regimen for other reason; Z79.84 Long term (current) use of oral hypoglycemic drugs; Z79.82 Long term (current) use of aspirin; Z79.891 Long term (current) use of opiate analgesic; Z79.51 Long term (current) use of inhaled steroids; I25.2 Old myocardial infarction; Z91.81 History of falling; Z79.899 Other long term (current) drug therapy; Z88.0 Allergy status to penicillin; Z88.8 Allergy status to other drugs, medicaments and biological substances; Z86.14 Personal history of Methicillin resistant Staphylococcus aureus infection; F10.10 Alcohol abuse, uncomplicated
CPT/HCPCS: 36415; 71046; 76770; 80053; 80306; 83605; 83735; 83880; 84484; 85025; 85610; 85730; 93005; 93306; 94640; 94760; 96374; 96375; 99291

== ENCOUNTER 2024-04-27 17:29 | Inpatient (IN) | payer MEDICARE, OTHER ==
[2024-04-27] MEDS: IPRATROPIUM-ALBUTEROL 3 ML NEB INHALATION STA (18:17)
[2024-04-27 18:42] LABS: Basophils % (A) 0 %; Eosinophils # (A) 0.2 k/uL (0-0.7); Eosinophils % (A) 3 %; HCT 27.1 % (39.0-53.0); HGB 8.4 gm/dL (13.0-17.5); Hypochromasia Slight; Lymphocytes # (A) 0.3 k/uL (1.0-4.8); Lymphocytes % (A) 6 %; MCH 29.1 pg (25.0-35.0); MCV 93.8 fL (80.0-100.0); Mean Platelet Volume 8.8; Monocytes # (A) 0.5 k/uL (0-1.0); Monocytes % (A) 9 %; Neutrophils # (A) 3.9 k/uL (1.3-7.7); Neutrophils % (A) 78 %; Platelet Count 222 k/uL (150-450); RBC 2.89 m/uL (4.30-5.90); RDW 15.8 % (11.5-15.5); WBC 5.1 k/uL (3.8-10.6)
[2024-04-27 18:51] LABS: ALT 73 U/L (4-49); AST 51 U/L (17-59); African American GFR (CKD) 39 (>60 ml/min/1.73 sqM); Albumin 3.4 g/dL (3.5-5.0); Alkaline Phosphatase 152 U/L (38-126); Anion Gap 7 mmol/L; Blood Urea Nitrogen 84 mg/dL (9-20); Calcium 7.9 mg/dL (8.4-10.2); Carbon Dioxide 21 mmol/L (22-30); Chloride 107 mmol/L (98-107); Glucose 182 mg/dL (74-99); Magnesium 2.1 mg/dL (1.6-2.3); Non-African American GFR(CKD) 34 (>60 ml/min/1.73 sqM); Potassium 5.3 mmol/L (3.5-5.1); Sodium 135 mmol/L (137-145); Total Bilirubin 0.6 mg/dL (0.2-1.3); Total Protein 6.1 g/dL (6.3-8.2)
[2024-04-27] MEDS: MORPHINE SULFATE 4 MG/ML SYRINGE IVP STA (18:53)
[2024-04-27] MEDS: methylPREDNISolone SOD SUCCI 125 MG/2 ML VIAL IV STA (18:53)
[2024-04-27 18:59] LABS: NT-Pro-B-Type Natriuretic Pept 19300 pg/mL; Partial Thromboplastin Time 25.4 sec (22.0-30.0); Prothrombin Time 11.1 sec (10.0-12.5)
--- NOTE | 2024-04-27 20:04 | XR ---
EXAMINATION TYPE: XR chest 2V DATE OF EXAM: 04/27/2024 COMPARISON: 02/01/2024 INDICATION: Difficulty breathing short of breath TECHNIQUE: Frontal and lateral views of the chest are obtained. FINDINGS: The heart size is mildly prominent. The pulmonary vasculature is normal. Previous left lower lobe infiltrate has resolved. There is a posterior pleural effusion, likely on th e right.. IMPRESSION: 1. Small posterior right pleural effusion [facility], Workstation: [facility], 04/27/2024 8:02 PM
[2024-04-27] MEDS ORDERED: NALOXONE 0.4 MG/ML 1 ML VIAL IV PRN (20:52)
[2024-04-27] MEDS ORDERED: DOCUSATE 100 MG CAP PO PRN (20:59)
[2024-04-27] MEDS ORDERED: DEXTROSE 50% SYRINGE 50 ML IVP PRN ×2 (21:00)
--- NOTE | 2024-04-27 21:05 | ED ---
General Adult HPI - General Chief complaint: Shortness of Breath Stated complaint: SOB, Leg Pain Time Seen by Provider: 04/27/24 18:10 Source: patient, EMS, RN notes reviewed, old records reviewed Mode of arrival: EMS Limitations: no limitations - History of Present Illness Initial comments: Patient is a 64-year-old male who presents emergency department over concern for shortness of breath and debility. Patient was just discharged from [facility] after an extensive stay for hypoxic respiratory failure requiring BiPAP. Has a history of CHF, COPD. Is supposed to be on 2 to 3 L nasal cannula oxygen at home however when he was discharged home he does not have the oxygen. Was sent to his brother's house who may have kicked him out. He has nowhere to go, was not placed in a facility, and has no access to oxygen. Presents for shortness of breath. Was discharged earlier today. Has no other acute complaints other than chronic leg pain. Presents for further evaluation at this time. - Related Data Home Medications Medication Instructions Recorded Confirmed Furosemide [Lasix] 40 mg PO DAILY 12/26/23 04/27/24 Budesonide [Pulmicort] 0.5 mg INHALATION RT-BID@0700,1900 04/27/24 04/27/24 Calcium Carbonate/Vitamin D3 1 tab PO DAILY 04/27/24 04/27/24 [Calcium 500 mg-Vit D3 5 mcg (200 Unit)] Docusate [Colace] 200 mg PO BID PRN 04/27/24 04/27/24 Empagliflozin [Jardiance] 10 mg PO DAILY 04/27/24 04/27/24 Folic Acid 1 mg PO DAILY 04/27/24 04/27/24 Gabapentin [Neurontin] 300 mg PO TID 04/27/24 04/27/24 Insulin Glargine [Lantus Vial] 12 unit SQ DAILY 04/27/24 04/27/24 Insulin Lispro 5 units SQ TID-W/MEALS 04/27/24 04/27/24 Insulin Lispro See Protocol SQ TID-W/MEALS 04/27/24 04/27/24 Isosorbide Dinitrate [Isordil] 10 mg PO BID 04/27/24 04/27/24 Lactobacillus Rhamnosus GG 1 cap PO BID 04/27/24 04/27/24 [Culturelle] Lactulose 10 gm PO TID 04/27/24 04/27/24 Magnesium Oxide [Mag-Ox] 400 mg PO DAILY 04/27/24 04/27/24 Melatonin 3 mg PO HS PRN 04/27/24 04/27/24 Gacqjvgo-Duxlujplsf-Hyeu Oint 1 gm TOPICAL BID 04/27/24 04/27/24 [Triple Antibiotic Ointment] Nicotine 21Mg/24Hr Patch [Habitrol] 1 patch TRANSDERM DAILY 04/27/24 04/27/24 Pantoprazole [Protonix] 40 mg PO AC-BID 04/27/24 04/27/24 Silver Sulfadiazine [Silver 1 applic TOPICAL BID 04/27/24 04/27/24 Sulfadiazine 1%] Simvastatin [Zocor] 20 mg PO HS 04/27/24 04/27/24 Sodium Bicarbonate Tab 650 mg PO BID 04/27/24 04/27/24 guaiFENesin [guaiFENesin ER] 1,200 mg PO Q12H 04/27/24 04/27/24 methocarbamoL [Robaxin] 250 mg PO QID 04/27/24 04/27/24 predniSONE 10 mg PO DAILY 04/27/24 04/27/24 Previous Rx's Medication Instructions Recorded Metoprolol Succinate (ER) [Toprol 25 mg PO DAILY 90 Days #90 tab 04/22/23 XL] Ipratropium-Albuterol Nebulize 3 ml INHALATION RT-QID 30 Days 11/11/23 [Duoneb 0.5 mg-3 mg/3 ml Soln] #120 each Aspirin 81 mg PO DAILY tab 12/31/23 Allergies Allergy/AdvReac Type Severity Reaction Status Date / Time Penicillins Allergy Unknown Verified 04/27/24 18:14 Childhood metformin AdvReac Mild Nausea & Verified 04/27/24 18:14 Vomiting & Diarrhea Review of Systems ROS Statement: Those systems with pertinent positive or pertinent negative responses have been documented in the HPI. Review of Systems: CONST: Denies fever EYES: Denies blurry vision ENT: Denies nasal congestion C/V: Denies Chest pain RESP: Endorses shortness of breath GI: Denies abdominal pain : Denies dysuria SKIN: Denies rash. MSK: Denies joint pain. NEURO: Denies headache ROS Other: All systems not noted in ROS Statement are negative. Past Medical History Past Medical History: Coronary Artery Disease (CAD), Heart Failure, COPD, CVA/TIA, Diabetes Mellitus, Eye Disorder, Hyperlipidemia, Hypertension, Liver Disease, Myocardial Infarction ([place]), Renal Disease Additional Past Medical History / Comment(s): Iischemic cardiomyopathy, PVCs, CVA 2019 with L sided weakness, chronic low back pain d/t vertebral fractures years ago as well as cervical pinched nerves, DDD, IDDM type II, neuropathy bilateral hands/legs and feet, pt states he can barely see with L eye and R eye vision is not very good/he is unsure why but believes it is d/t diabetes, liver disease/hepatitis C/ETOH abuse, recurrent ascities/paracentesis, recent R hip fracture d/t fall/recurrent falls. Last Myocardial Infarction Date:: October 2018 History of Any Multi-Drug Resistant Organisms: MRSA Date of last positivie culture/infection: 11/23/20 MDRO Source:: FOOT MRSA Past Surgical History: Cholecystectomy, Heart Catheterization, Heart Catheterization With Stent, Tonsillectomy Additional Past Surgical History / Comment(s): R heel I&D, colonoscopy. Past Anesthesia/Blood Transfusion Reactions: No Reported Reaction Date of Last Stent Placement:: 2011 Past Psychological History: Anxiety, Bipolar, Depression Smoking Status: Current every day smoker Past Alcohol Use History: None Reported Past Drug Use History: Marijuana - Past Family History Mother Family Medical History: Cancer Father Family Medical History: Coronary Artery Disease (CAD), Diabetes Mellitus, Hypertension General Exam - General Exam Comments Initial Comments: General: Appears in no acute distress. HEAD: Normal with no signs of head trauma. EYES: PERRLA, EOMI, conjunctiva normal, no discharge. ENT: Hearing grossly intact, normal oropharynx. RESPIRATORY: Expiratory wheezing. No significant hypoxia baseline nasal cannula oxygen. No increased work of breathing. C/V: Regular rate and rhythm. S1 and S2 auscultated, mild lower extremity pitting edema, peripheral pulses 2+ and intact throughout ABD: Abd is soft, nontender, nondistended EXT: Normal range of motion, no obvious deformity SKIN: No rashes or lesions observed on exposed skin. NEURO: Alert and oriented x 4. Limitations: no limitations Course Vital Signs 04/27/24 04/27/24 04/27/24 17:36 17:39 18:38 Temperature 98.9 F Pulse Rate 95 92 Respiratory 20 20 Rate Blood Pressure 151/88 144/72 O2 Sat by Pulse 97 100 Oximetry 04/27/24 04/27/24 19:55 20:02 Temperature Pulse Rate 88 82 Respiratory Rate Blood Pressure O2 Sat by Pulse Oximetry Medical Decision Making - Medical Decision Making Was pt. sent in by a medical professional or institution (AMIE Burnett, [employer], urgent care, hospital, or assisted...) When possible be specific @ -No Did you speak to anyone other than the patient for history (EMS, parent, family, police, friend...)? What history was obtained from this source @ -No Did you review nursing and triage notes (agree or disagree)? Why? @ -I reviewed and agree with nursing and triage notes Were old charts reviewed (outside hosp., previous admission, EMS record, old EKG, old radiological studies, urgent care reports/EKG's, assisted records)? Report findings @ -Old charts reviewed including prior EKGs which revealed the chronic left bundle branch block. This is seen on EKG from January 2024. Differential Diagnosis (chest pain, altered mental status, abdominal pain women, abdominal pain men, vaginal bleeding, weakness, fever, dyspnea, syncope, headache, dizziness, GI bleed, back pain, seizure, CVA, palpatations, mental health, musculoskeletal)? @ -Differential Dyspnea: Coronary syndrome, arrhythmia, tamponade, asthma, COPD, pulmonary embolism, pneumonia, pneumothorax, pulmonary effusion, anaphylaxis, diabetic ketoacidosis, flailed chest, pulmonary contusion, diaphragmatic rupture, anemia, neuromuscular, this is not meant to be an all-inclusive list. EKG interpreted by me (3pts min.). @ -As above X-rays interpreted by me (1pt min.). @ -Chest x-ray shows mild bilateral pulmonary vascular congestion. There is a small right pleural effusion. CT interpreted by me (1pt min.). @ -None done U/S interpreted by me (1pt. min.). @ -None done What testing was considered but not performed or refused? (CT, X-rays, U/S, labs)? Why? @ -None What meds were considered but not given or refused? Why? @ -None Did you discuss the management of the patient with other professionals ( professionals i.e. AMIE Burnett, [employer], lab, RT, psych nurse, criminal justice social worker, ethnoarchaeologist, teacher, sanitation officer, watch caser)? Give summary @ -Discussed with the admitting provider, Dr. Marcus who is covering for Dr. Solis. Requested psychiatric consult and was in agreement with plan for cardiology consult. Accepted the admission. Was smoking cessation discussed for >3mins.? @ -No Was critical care preformed (if so, how long)? @ -No Were there social determinants of health that impacted care today? How? (Homelessness, low income, unemployed, alcoholism, drug addiction, transportation, low edu. Level, literacy, decrease access to med. care, group home, rehab)? @ -No Was there de-escalation of care discussed even if they declined (Discuss DNR or withdrawal of care, Hospice)? DNR status @ -No What co-morbidities impacted this encounter? (DM, HTN, Smoking, COPD, CAD, Cancer, CVA, ARF, Chemo, Hep., AIDS, mental health diagnosis, sleep apnea, morbid obesity)? @ -Chronic hypoxic respiratory failure, COPD, CHF Was patient admitted / discharged? Hospital course, mention meds given and route, prescriptions, significant lab abnormalities, going to OR and other pertinent info. @ -Based on patient's presentation and physical exam, presents emergency department complaining of dyspnea, debility. Has no access to oxygen at home and does not sound like he has somewhere to live. Was discharged from another facility earlier today. Does have chronic hypoxic respiratory failure. Vital signs are currently within acceptable limits. He will be given a breathing treatment. Will obtain pulmonary workup and then admit the patient. He was in agreement this plan. EKG shows chronic left bundle branch block. Chest x-ray shows small right pleural effusion and mild pulmonary vascular congestion. Labs are remarkable for an anemia of 8.4 which is likely secondary to his recent prolonged stay at the outside facility. Does have a history of chronic anemia. Patient has CKD, BNP is elevated to 19,000. Patient will be started on IV Lasix. Cardiology will be consulted. I spoke with the admitting provider, Dr. Marcus who is covering for Dr. Loyola who accepted the admission. Requested psychiatric consult as well. Social work consulted for the debility and possible placement. Undiagnosed new problem with uncertain prognosis? @ -No Drug Therapy requiring intensive monitoring for toxicity (Heparin, Nitro, Insulin, Cardizem)? @ -No Were any procedures done? @ -No Diagnosis/symptom? @ -Debility, chronic hypoxic respiratory failure, CHF, COPD Acute, or Chronic, or Acute on Chronic? @ -Acute Uncomplicated (without systemic symptoms) or Complicated (systemic symptoms)? @ -Complicated Side effects of treatment? @ -No Exacerbation, Progression, or Severe Exacerbation? @ -No Poses a threat to life or bodily function? How? (Chest pain, [place], [place], pneumonia, PE, COPD, DKA, ARF, appy, cholecystitis, CVA, Diverticulitis, Homicidal, Suicidal, threat to staff... and all critical care pts) @ -Yes - Lab Data Result diagrams: 04/27/24 18:15 04/27/24 18:15 Lab Results 04/27/24 04/27/24 04/27/24 Range/Units 18:15 18:15 18:15 WBC 5.1 (3.8-10.6) k/uL RBC 2.89 L (4.30-5.90) m/uL Hgb 8.4 L (13.0-17.5) gm/dL Hct 27.1 L (39.0-53.0) % MCV 93.8 (80.0-100.0) fL MCH 29.1 (25.0-35.0) pg MCHC 31.0 (31.0-37.0) g/dL RDW 15.8 H (11.5-15.5) % Plt Count 222 (150-450) k/uL MPV 8.8 Neutrophils % 78 % Lymphocytes % 6 % Monocytes % 9 % Eosinophils % 3 % Basophils % 0 % Neutrophils # 3.9 (1.3-7.7) k/uL Lymphocytes # 0.3 L (1.0-4.8) k/uL Monocytes # 0.5 (0-1.0) k/uL Eosinophils # 0.2 (0-0.7) k/uL Basophils # 0.0 (0-0.2) k/uL Hypochromasia Slight PT 11.1 (10.0-12.5) sec INR 1.0 (<1.2) APTT 25.4 (22.0-30.0) sec Sodium 135 L (137-145) mmol/L Potassium 5.3 H (3.5-5.1) mmol/L Chloride 107 (98-107) mmol/L Carbon Dioxide 21 L (22-30) mmol/L Anion Gap 7 mmol/L BUN 84 H (9-20) mg/dL Creatinine 2.00 H (0.66-1.25) mg/dL Est GFR (CKD-EPI)AfAm 39 (>60 ml/min/1.73 sqM) Est GFR (CKD-EPI)NonAf 34 (>60 ml/min/1.73 sqM) Glucose 182 H (74-99) mg/dL Calcium 7.9 L (8.4-10.2) mg/dL Magnesium 2.1 (1.6-2.3) mg/dL Total Bilirubin 0.6 (0.2-1.3) mg/dL AST 51 (17-59) U/L ALT 73 H (4-49) U/L Alkaline Phosphatase 152 H (38-126) U/L NT-Pro-B Natriuret Pep 56958 pg/mL Total Protein 6.1 L (6.3-8.2) g/dL Albumin 3.4 L (3.5-5.0) g/dL Influenza Type A (PCR) (Not Detectd) Influenza Type B (PCR) (Not Detectd) RSV (PCR) (Not Detectd) SARS-CoV-2 (PCR) (Not Detectd) 04/27/24 Range/Units 18:16 WBC (3.8-10.6) k/uL RBC (4.30-5.90) m/uL Hgb (13.0-17.5) gm/dL Hct (39.0-53.0) % MCV (80.0-100.0) fL MCH (25.0-35.0) pg MCHC (31.0-37.0) g/dL RDW (11.5-15.5) % Plt Count (150-450) k/uL MPV Neutrophils % % Lymphocytes % % Monocytes % % Eosinophils % % Basophils % % Neutrophils # (1.3-7.7) k/uL Lymphocytes # (1.0-4.8) k/uL Monocytes # (0-1.0) k/uL Eosinophils # (0-0.7) k/uL Basophils # (0-0.2) k/uL Hypochromasia PT (10.0-12.5) sec INR (<1.2) APTT (22.0-30.0) sec Sodium (137-145) mmol/L Potassium (3.5-5.1) mmol/L Chloride (98-107) mmol/L Carbon Dioxide (22-30) mmol/L Anion Gap mmol/L BUN (9-20) mg/dL Creatinine (0.66-1.25) mg/dL Est GFR (CKD-EPI)AfAm (>60 ml/min/1.73 sqM) Est GFR (CKD-EPI)NonAf (>60 ml/min/1.73 sqM) Glucose (74-99) mg/dL Calcium (8.4-10.2) mg/dL Magnesium (1.6-2.3) mg/dL Total Bilirubin (0.2-1.3) mg/dL AST (17-59) U/L ALT (4-49) U/L Alkaline Phosphatase (38-126) U/L NT-Pro-B Natriuret Pep pg/mL Total Protein (6.3-8.2) g/dL Albumin (3.5-5.0) g/dL Influenza Type A (PCR) Not Detected (Not Detectd) Influenza Type B (PCR) Not Detected (Not Detectd) RSV (PCR) Not Detected (Not Detectd) SARS-CoV-2 (PCR) Not Detected (Not Detectd) - EKG Data -: EKG Interpreted by Me EKG Comments: 12-lead Electrocardiogram Interpretation Note EKG was reviewed and interpreted by myself. 12-lead ECG performed at 1741 is interpreted by me as revealing normal sinus rhythm with left bundle branch block at a rate of 96 beats per minute. [place] is normal. CA interval is 159 ms, QRS duration is 143 ms, QTc is 414 ms.. There were no ST or T wave abnormalities to suggest myocardial ischemia or injury. R wave progression across the precordium was satisfactory. By my interpretation this EKG is non-diagnostic for acute ischemia. Disposition Clinical Impression: Debility, CHF (congestive heart failure), Chronic hypoxic respiratory failure Disposition: ADMITTED IP TO THIS HOSP Condition: Stable Referrals: Eric Loyola MD [Primary Care Provider] - 1-2 days Time of Disposition: 21:00
[2024-04-27] MEDS: SODIUM BICARBONATE TAB 650 MG TAB PO SCH (21:35)
[2024-04-27] MEDS: GABAPENTIN 300 MG CAP PO SCH (21:35)
[2024-04-27] MEDS: LACTULOSE 20 GM/30 ML CUP PO SCH (21:36)
[2024-04-27] MEDS: methocarbamoL 500 MG TAB PO SCH (21:36)
[2024-04-27] MEDS: ATORVASTATIN 10 MG TAB PO SCH (21:36)
[2024-04-27] MEDS: FUROSEMIDE 10 MG/ML 4 ML VIAL IV STA (21:39)
[2024-04-27] MEDS: ISOSORBIDE DINITRATE 10 MG TAB PO SCH (21:46)
[2024-04-28] MEDS: HEPARIN SODIUM,PORCINE 5,000 UNIT/ML 1 ML VIAL SQ SCH (00:55)
[2024-04-28 05:54] LABS: Basophils % (A) 0 %; Eosinophils % (A) 0 %; HCT 25.5 % (39.0-53.0); HGB 8.2 gm/dL (13.0-17.5); Hypochromasia Marked; Lymphocytes # (A) 0.3 k/uL (1.0-4.8); Lymphocytes % (A) 8 %; MCH 30.5 pg (25.0-35.0); MCHC 32.2 g/dL (31.0-37.0); MCV 94.4 fL (80.0-100.0); Mean Platelet Volume 8.2; Monocytes # (A) 0.1 k/uL (0-1.0); Monocytes % (A) 4 %; Neutrophils # (A) 2.7 k/uL (1.3-7.7); Neutrophils % (A) 87 %; Platelet Count 197 k/uL (150-450); RBC 2.69 m/uL (4.30-5.90); RDW 15.5 % (11.5-15.5); WBC 3.1 k/uL (3.8-10.6)
[2024-04-28 06:05] LABS: ALT 63 U/L (4-49); AST 37 U/L (17-59); African American GFR (CKD) 44 (>60 ml/min/1.73 sqM); Albumin 2.8 g/dL (3.5-5.0); Alkaline Phosphatase 137 U/L (38-126); Anion Gap 4 mmol/L; Blood Urea Nitrogen 87 mg/dL (9-20); Carbon Dioxide 22 mmol/L (22-30); Chloride 108 mmol/L (98-107); Glucose 254 mg/dL (74-99); Non-African American GFR(CKD) 38 (>60 ml/min/1.73 sqM); Potassium 4.8 mmol/L (3.5-5.1); Sodium 134 mmol/L (137-145); Total Bilirubin 0.5 mg/dL (0.2-1.3); Total Protein 5.2 g/dL (6.3-8.2)
[2024-04-28 07:43] LABS: Glucose,Whole Blood 279 mg/dL (70-110)
[2024-04-28] MEDS: INSULIN ASPART (NovoLOG) 100 UNIT/ML VIAL SQ SCH ×2 (07:50→08:23)
--- NOTE | 2024-04-28 08:11 | P.HPIM ---
History of Present Illness H&P Date: 04/28/24 Chief Complaint: Shortness of breath 64-year-old male with end-stage lung disease oxygen dependent and prednisone dependent patient stayed at [facility] for 22 days could not be placed in rehab or detention appears that patient lives with his brother who has refused to take him. Patient was discharged yesterday from [facility] patient directly came to [facility] and has been admitted successfully. Patient complains of generalized weakness, however he requires Dilaudid for pain control, patient has been on BiPAP lately stable on 3 L nasal cannula, is has chronic kidney disease is stage IIIb and congestive heart failure. Patient admitted into [facility] with continuation of home medication and socially responsible investment adviser on consult for placement psych consult for mood disorder and nephrology for chronic kidney disease. Labs are significant for hemoglobin hematocrit 8.4/27 WBC within normal limit chemistry significant for mild hyponatremia and hyperkalemia 135 and 5.3, BUN/creatinine is 84/2 glucose 182 BNP is over 19,000 influenza A and B RSV and COVID have been negative chest x-ray mild interstitial edema and tiny right-sided effusion otherwise unremarkable Review of Systems All systems: negative Past Medical History Past Medical History: Coronary Artery Disease (CAD), Heart Failure, COPD, CVA/TIA, Diabetes Mellitus, Eye Disorder, Hyperlipidemia, Hypertension, Liver Disease, Myocardial Infarction ([place]), Renal Disease Additional Past Medical History / Comment(s): Iischemic cardiomyopathy, PVCs, CVA 2019 with L sided weakness, chronic low back pain d/t vertebral fractures years ago as well as cervical pinched nerves, DDD, IDDM type II, neuropathy bilateral hands/legs and feet, pt states he can barely see with L eye and R eye vision is not very good/he is unsure why but believes it is d/t diabetes, liver disease/hepatitis C/ETOH abuse, recurrent ascities/paracentesis, recent R hip fracture d/t fall/recurrent falls. Last Myocardial Infarction Date:: October 2018 History of Any Multi-Drug Resistant Organisms: MRSA Date of last positivie culture/infection: 11/23/20 MDRO Source:: FOOT MRSA Past Surgical History: Cholecystectomy, Heart Catheterization, Heart Catheterization With Stent, Tonsillectomy Additional Past Surgical History / Comment(s): R heel I&D, colonoscopy. Past Anesthesia/Blood Transfusion Reactions: No Reported Reaction Date of Last Stent Placement:: 2011 Past Psychological History: Anxiety, Bipolar, Depression Additional Psychological History / Comment(s): Pt states brother he lived with is losing his home abd he is now homeless, also that he was his insurancce rejected him today for placement while he was at [facility]. Pt ambulates with a walker. Smoking Status: Current every day smoker, Former smoker Past Alcohol Use History: None Reported Additional Past Alcohol Use History / Comment(s): Pt started smoking in 1976. Pt states he has hx of heavy alcohol use but states none for years Past Drug Use History: Marijuana Additional Drug Use History / Comment(s): Marijuana occasionally. pt stated he had ICE on 02/24/2020 - Past Family History Mother Family Medical History: Cancer Father Family Medical History: Coronary Artery Disease (CAD), Diabetes Mellitus, Hypertension Medications and Allergies Home Medications Medication Instructions Recorded Confirmed Type Metoprolol Succinate (ER) [Toprol 25 mg PO DAILY 90 Days #90 tab 04/22/23 04/27/24 Rx XL] Ipratropium-Albuterol Nebulize 3 ml INHALATION RT-QID 30 Days 11/11/23 04/27/24 Rx [Duoneb 0.5 mg-3 mg/3 ml Soln] #120 each Furosemide [Lasix] 40 mg PO DAILY 12/26/23 04/27/24 History Aspirin 81 mg PO DAILY tab 12/31/23 04/27/24 Rx Budesonide [Pulmicort] 0.5 mg INHALATION RT-BID@0700,1900 04/27/24 04/27/24 History Calcium Carbonate/Vitamin D3 1 tab PO DAILY 04/27/24 04/27/24 History [Calcium 500 mg-Vit D3 5 mcg (200 Unit)] Docusate [Colace] 200 mg PO BID PRN 04/27/24 04/27/24 History Empagliflozin [Jardiance] 10 mg PO DAILY 04/27/24 04/27/24 History Folic Acid 1 mg PO DAILY 04/27/24 04/27/24 History Gabapentin [Neurontin] 300 mg PO TID 04/27/24 04/27/24 History Insulin Glargine [Lantus Vial] 12 unit SQ DAILY 04/27/24 04/27/24 History Insulin Lispro 5 units SQ TID-W/MEALS 04/27/24 04/27/24 History Insulin Lispro See Protocol SQ TID-W/MEALS 04/27/24 04/27/24 History Isosorbide Dinitrate [Isordil] 10 mg PO BID 04/27/24 04/27/24 History Lactobacillus Rhamnosus GG 1 cap PO BID 04/27/24 04/27/24 History [Culturelle] Lactulose 10 gm PO TID 04/27/24 04/27/24 History Magnesium Oxide [Mag-Ox] 400 mg PO DAILY 04/27/24 04/27/24 History Melatonin 3 mg PO HS PRN 04/27/24 04/27/24 History Zdzoqmqj-Dhaxynsxun-Qnxc Oint 1 gm TOPICAL BID 04/27/24 04/27/24 History [Triple Antibiotic Ointment] Nicotine 21Mg/24Hr Patch [Habitrol] 1 patch TRANSDERM DAILY 04/27/24 04/27/24 History Pantoprazole [Protonix] 40 mg PO AC-BID 04/27/24 04/27/24 History Silver Sulfadiazine [Silver 1 applic TOPICAL BID 04/27/24 04/27/24 History Sulfadiazine 1%] Simvastatin [Zocor] 20 mg PO HS 04/27/24 04/27/24 History Sodium Bicarbonate Tab 650 mg PO BID 04/27/24 04/27/24 History guaiFENesin [guaiFENesin ER] 1,200 mg PO Q12H 04/27/24 04/27/24 History methocarbamoL [Robaxin] 250 mg PO QID 04/27/24 04/27/24 History predniSONE 10 mg PO DAILY 04/27/24 04/27/24 History Allergies Allergy/AdvReac Type Severity Reaction Status Date / Time Penicillins Allergy Unknown Verified 04/27/24 18:14 Childhood metformin AdvReac Mild Nausea & Verified 04/27/24 18:14 Vomiting & Diarrhea Physical Exam Vitals: Vital Signs Temp Pulse Pulse Resp BP BP Pulse Ox 04/28/24 07:02 98.3 F 90 17 168/93 99 04/28/24 01:33 98 F 87 16 147/73 96 04/27/24 22:49 98.2 F 84 18 152/76 95 04/27/24 22:18 98.0 F 76 20 141/72 95 04/27/24 21:34 80 18 150/79 94 L 10/29/24 20:02 82 04/27/24 19:55 88 04/27/24 18:38 92 144/72 100 04/27/24 17:39 20 04/27/24 17:36 98.9 F 95 20 151/88 97 Intake and Output 04/27/24 04/28/24 04/28/24 22:59 06:59 14:59 Output Total 1200 Balance -1200 Output: Urine 1200 Other: Voiding Method Toilet Urinal Weight 83.915 kg 79.8 kg - Constitutional General appearance: average body habitus, cooperative, disheveled - EENT Eyes: EOMI, PERRLA ENT: normal oropharynx Ears: bilateral: normal - Neck Carotids: bilateral: upstroke normal - Respiratory Respiratory: bilateral: CTA - Cardiovascular Rhythm: regular Heart sounds: normal: S1, S2 - Gastrointestinal General gastrointestinal: hyperactive bowel sounds, soft - Neurologic Neurologic: CNII-XII intact - Musculoskeletal Musculoskeletal: gait normal, generalized weakness, strength equal bilaterally - Psychiatric Psychiatric: A&O x's 3, appropriate affect, intact judgment & insight Results CBC & Chem 7: 04/28/24 05:24 04/28/24 05:24 Labs: Abnormal Lab Results - Last 24 Hours (Table) 04/27/24 04/27/24 04/28/24 Range/Units 18:15 18:15 05:24 WBC 3.1 L (3.8-10.6) k/uL RBC 2.89 L 2.69 L (4.30-5.90) m/uL Hgb 8.4 L 8.2 L (13.0-17.5) gm/dL Hct 27.1 L 25.5 L (39.0-53.0) % RDW 15.8 H (11.5-15.5) % Lymphocytes # 0.3 L 0.3 L (1.0-4.8) k/uL Sodium 135 L (137-145) mmol/L Potassium 5.3 H (3.5-5.1) mmol/L Chloride (98-107) mmol/L Carbon Dioxide 21 L (22-30) mmol/L BUN 84 H (9-20) mg/dL Creatinine 2.00 H (0.66-1.25) mg/dL Glucose 182 H (74-99) mg/dL POC Glucose (mg/dL) (70-110) mg/dL Calcium 7.9 L (8.4-10.2) mg/dL ALT 73 H (4-49) U/L Alkaline Phosphatase 152 H (38-126) U/L Total Protein 6.1 L (6.3-8.2) g/dL Albumin 3.4 L (3.5-5.0) g/dL 04/28/24 04/28/24 Range/Units 05:24 07:42 WBC (3.8-10.6) k/uL RBC (4.30-5.90) m/uL Hgb (13.0-17.5) gm/dL Hct (39.0-53.0) % RDW (11.5-15.5) % Lymphocytes # (1.0-4.8) k/uL Sodium 134 L (137-145) mmol/L Potassium (3.5-5.1) mmol/L Chloride 108 H (98-107) mmol/L Carbon Dioxide (22-30) mmol/L BUN 87 H (9-20) mg/dL Creatinine 1.83 H (0.66-1.25) mg/dL Glucose 254 H (74-99) mg/dL POC Glucose (mg/dL) 279 H (70-110) mg/dL Calcium 8.0 L (8.4-10.2) mg/dL ALT 63 H (4-49) U/L Alkaline Phosphatase 137 H (38-126) U/L Total Protein 5.2 L (6.3-8.2) g/dL Albumin 2.8 L (3.5-5.0) g/dL Thrombosis Risk Factor Assmnt - Choose All That Apply Any of the Below Risk Factors Present?: Yes Each Factor Represents 1 point: Abnormal pulmonary function (COPD), Swollen legs (current) Other Risk Factors: Yes Each Risk Factor Represents 2 Points: Age 61-74 years Other congenital or acquired thrombophilia - If yes, enter type in comment: No Thrombosis Risk Factor Assessment Total Risk Factor Score: 4 Thrombosis Risk Factor Assessment Level: Moderate Risk Assessment and Plan Assessment: Chronic hypoxic respiratory failure Hypertension hypertensive cardiovascular disease Chronic kidney disease Peripheral severe pruritus of the extremities COPD oxygen dependent prednisone dependent Type 2 diabetes mellitus with hyperglycemia Congestive heart failure Hypertension hypertensive cardiovascular disease Dyslipidemia Plan: Continue oxygen 3 L nasal cannula Continue maintenance dose of prednisone 10 mg daily along with bronchodilators DuoNeb and Pulmicort Pain management with [place] as needed and Dilaudid for breakthrough pain Nephrology consultation for chronic kidney disease, monitor and trend renal functions and urine output continue bicarb Psychiatry consultation for mood disorder depression Continue statin for dyslipidemia Continue short and long-acting insulin and 88 1600 nargis diet Gentle diuresis with furosemide along nitrates and with antihypertensive agents continue IV Lasix however subsequently next 24 to 48 hours will change to oral DVT prophylaxis subcu heparin Melatonin for insomnia Time with Patient: Greater than 30
[2024-04-28] MEDS: HYDROmorphone 0.5 MG/0.5 ML SYRINGE IVP PRN (08:24)
[2024-04-28] MEDS: FUROSEMIDE 10 MG/ML 4 ML VIAL IV SCH (08:24)
[2024-04-28] MEDS: INSULIN DETEMIR (LEVEMIR) 100 UNIT/ML SYR SQ SCH (08:33)
[2024-04-28] MEDS: MAGNESIUM OXIDE 400 MG TAB PO SCH (09:17)
[2024-04-28] MEDS: PANTOPRAZOLE 40 MG TABLET PO SCH (09:18)
[2024-04-28] MEDS: predniSONE 10 MG TAB PO SCH (09:20)
[2024-04-28] MEDS: METOPROLOL SUCCINATE (ER) 25 MG TAB.ER.24H PO SCH (09:20)
[2024-04-28] MEDS: DAPAGLIFLOZIN PROPANEDIOL 5 MG TABLET PO SCH (09:22)
[2024-04-28] MEDS: ASPIRIN 81 MG PO SCH (09:22)
[2024-04-28] MEDS: NICOTINE 21MG/24HR PATCH TRANSDERM SCH (09:23)
[2024-04-28] MEDS: IPRATROPIUM-ALBUTEROL 3 ML NEB INHALATION SCH (10:08)
[2024-04-28] MEDS: BUDESONIDE 0.5 MG/2 ML NEBU INHALATION SCH (10:08)
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
[2024-04-28] MEDS: DULoxetine HCL 30 MG CAPSULE.DR PO SCH (10:18)
[2024-04-28] MEDS: amLODIPine 10 MG TAB PO SCH (11:46)
[2024-04-28 12:17] LABS: Glucose,Whole Blood 178 mg/dL (70-110)
--- NOTE | 2024-04-28 13:08 | P.NPCON ---
History of Present Illness - History of Present Illness patient is a 64-year-old male with CK D stage III B with baseline creatinine around 1.6-1.8 mg/dL. Patient was discharged from [facility] yesterday after a prolonged hospitalization. Patient could not be discharged to rehab and his brother refused to take him. Patient also complained of generalized weakness and shortness of breath and therefore came into the hospital. Psych consult has been ordered. Patient was maintained on diuretics for volume overload and CHF exacerbation. He also has a tendency towards hyperkalemia which has been recently controlled with use of diuretics and low potassium diet. Serum creatinine was 2.1-2.2 mg/dL over the last week. Past Medical History Past Medical History: Coronary Artery Disease (CAD), Heart Failure, COPD, CVA/TIA, Diabetes Mellitus, Eye Disorder, Hyperlipidemia, Hypertension, Liver Disease, Myocardial Infarction ([place]), Renal Disease Additional Past Medical History / Comment(s): Iischemic cardiomyopathy, PVCs, CVA 2019 with L sided weakness, chronic low back pain d/t vertebral fractures years ago as well as cervical pinched nerves, DDD, IDDM type II, neuropathy bilateral hands/legs and feet, pt states he can barely see with L eye and R eye vision is not very good/he is unsure why but believes it is d/t diabetes, liver disease/hepatitis C/ETOH abuse, recurrent ascities/paracentesis, recent R hip fracture d/t fall/recurrent falls. Last Myocardial Infarction Date:: October 2018 History of Any Multi-Drug Resistant Organisms: MRSA Date of last positivie culture/infection: 11/23/20 MDRO Source:: FOOT MRSA Past Surgical History: Cholecystectomy, Heart Catheterization, Heart Catheterization With Stent, Tonsillectomy Additional Past Surgical History / Comment(s): R heel I&D, colonoscopy. Past Anesthesia/Blood Transfusion Reactions: No Reported Reaction Date of Last Stent Placement:: 2011 Past Psychological History: Anxiety, Bipolar, Depression Additional Psychological History / Comment(s): Pt states brother he lived with is losing his home abd he is now homeless, also that he was his insurancce rejected him today for placement while he was at [facility]. Pt ambulates with a walker. Smoking Status: Current every day smoker, Former smoker Past Alcohol Use History: None Reported Additional Past Alcohol Use History / Comment(s): Pt started smoking in 1976. Pt states he has hx of heavy alcohol use but states none for years Past Drug Use History: Marijuana Additional Drug Use History / Comment(s): Marijuana occasionally. pt stated he had ICE on 02/24/2020 - Past Family History Mother Family Medical History: Cancer Father Family Medical History: Coronary Artery Disease (CAD), Diabetes Mellitus, Hypertension Medications and Allergies Home Medications Medication Instructions Recorded Confirmed Type Metoprolol Succinate (ER) [Toprol 25 mg PO DAILY 90 Days #90 tab 04/22/23 04/27/24 Rx XL] Ipratropium-Albuterol Nebulize 3 ml INHALATION RT-QID 30 Days 11/11/23 04/27/24 Rx [Duoneb 0.5 mg-3 mg/3 ml Soln] #120 each Furosemide [Lasix] 40 mg PO DAILY 12/26/23 04/27/24 History Aspirin 81 mg PO DAILY tab 12/31/23 04/27/24 Rx Budesonide [Pulmicort] 0.5 mg INHALATION RT-BID@0700,1900 04/27/24 04/27/24 History Calcium Carbonate/Vitamin D3 1 tab PO DAILY 04/27/24 04/27/24 History [Calcium 500 mg-Vit D3 5 mcg (200 Unit)] Docusate [Colace] 200 mg PO BID PRN 04/27/24 04/27/24 History Empagliflozin [Jardiance] 10 mg PO DAILY 04/27/24 04/27/24 History Folic Acid 1 mg PO DAILY 04/27/24 04/27/24 History Gabapentin [Neurontin] 300 mg PO TID 04/27/24 04/27/24 History Insulin Glargine [Lantus Vial] 12 unit SQ DAILY 04/27/24 04/27/24 History Insulin Lispro 5 units SQ TID-W/MEALS 04/27/24 04/27/24 History Insulin Lispro See Protocol SQ TID-W/MEALS 04/27/24 04/27/24 History Isosorbide Dinitrate [Isordil] 10 mg PO BID 04/27/24 04/27/24 History Lactobacillus Rhamnosus GG 1 cap PO BID 04/27/24 04/27/24 History [Culturelle] Lactulose 10 gm PO TID 04/27/24 04/27/24 History Magnesium Oxide [Mag-Ox] 400 mg PO DAILY 04/27/24 04/27/24 History Melatonin 3 mg PO HS PRN 04/27/24 04/27/24 History Afljynla-Ftkivslipz-Xrxs Oint 1 gm TOPICAL BID 04/27/24 04/27/24 History [Triple Antibiotic Ointment] Nicotine 21Mg/24Hr Patch [Habitrol] 1 patch TRANSDERM DAILY 04/27/24 04/27/24 History Pantoprazole [Protonix] 40 mg PO AC-BID 04/27/24 04/27/24 History Silver Sulfadiazine [Silver 1 applic TOPICAL BID 04/27/24 04/27/24 History Sulfadiazine 1%] Simvastatin [Zocor] 20 mg PO HS 04/27/24 04/27/24 History Sodium Bicarbonate Tab 650 mg PO BID 04/27/24 04/27/24 History guaiFENesin [guaiFENesin ER] 1,200 mg PO Q12H 04/27/24 04/27/24 History methocarbamoL [Robaxin] 250 mg PO QID 04/27/24 04/27/24 History predniSONE 10 mg PO DAILY 04/27/24 04/27/24 History Allergies Allergy/AdvReac Type Severity Reaction Status Date / Time Penicillins Allergy Unknown Verified 04/27/24 18:14 Childhood metformin AdvReac Mild Nausea & Verified 04/27/24 18:14 Vomiting & Diarrhea Physical Exam Vitals: Vital Signs Temp Pulse Pulse Resp BP BP BP 04/28/24 12:58 80 04/28/24 12:22 97.5 F L 92 17 177/88 176/82 04/28/24 10:22 84 04/28/24 10:08 82 04/28/24 07:02 98.3 F 90 17 168/93 04/28/24 01:33 98 F 87 16 147/73 04/27/24 22:49 98.2 F 84 18 152/76 04/27/24 22:18 98.0 F 76 20 141/72 04/27/24 21:34 80 18 150/79 04/27/24 20:02 82 04/27/24 19:55 88 04/27/24 18:38 92 144/72 04/27/24 17:39 20 04/27/24 17:36 98.9 F 95 20 151/88 Pulse Ox 04/28/24 12:58 04/28/24 12:22 99 04/28/24 10:22 04/28/24 10:08 98 04/28/24 07:02 99 04/28/24 01:33 96 04/27/24 22:49 95 04/27/24 22:18 95 04/27/24 21:34 94 L 04/27/24 20:02 04/27/24 19:55 04/27/24 18:38 100 04/27/24 17:39 04/27/24 17:36 97 Intake and Output 04/27/24 04/28/24 04/28/24 22:59 06:59 14:59 Output Total 1200 Balance -1200 Output: Urine 1200 Other: Voiding Method Toilet Urinal Urinal Weight 83.915 kg 79.8 kg patient is awake, comfortable, no acute distress. Alert oriented 3 Examination of the heart S1 and S2 Examination of the lungs bilateral breath sounds are heard Abdomen is soft nontender Examination of lower extremity shows chronic skin changes, edema 1+ bilaterally, multiple wounds on both legs [employer] LEADER exam grossly intact Results - Lab Results Most recent lab results Calcium 8.0 mg/dL (8.4-10.2) L 04/28/24 05:24 Magnesium 2.1 mg/dL (1.6-2.3) 04/27/24 18:15 04/28/24 05:24 04/28/24 05:24 Assessment and Plan Assessment: 1. Chronic kidney disease NKF stage IIIB with baseline creatinine around 1.6-1. 8 mg/dLsecondary to diabetic kidney disease 2. Acute kidney injury, ATN/cardiorenal syndrome during recent hospitalization at [facility]. Serum creatinine was 2.2-2.0 over the last few days. 3. Tendency towards hyperkalemia, controlled with loop diuretics and low potassium diet. 4. Metabolic acidosis secondary to chronic kidney disease maintained on oral sodium bicarb 5. Hypertension with CK D stage III B 6. Type 2 diabetes maintained on insulin Plan: continue with IV Lasix Continue with Farxiga. Maintain low potassium diet Continue oral sodium bicarb Repeat labs in a.m. Social work/ case management to evaluate discharge planning. Thank you for the consultation. We will continue to follow the patient with you during his hospitalization.
[2024-04-28 17:20] LABS: Glucose,Whole Blood 156 mg/dL (70-110)
[2024-04-28 20:17] LABS: Glucose,Whole Blood 275 mg/dL (70-110)
--- NOTE | 2024-04-28 22:32 | CONS ---
CONSULTATION CHIEF COMPLAINT: Shortness of breath. HISTORY OF PRESENT ILLNESS: This is a 64-year-old gentleman, who is homeless, has complex medical problems including end-stage lung disease, who was in the [facility] for almost 22 days and could not go to rehab or longterm and his brother refused to take him. He was discharged and was not feeling well, was weak, short of breath, and was brought to the emergency room at [facility] from where he is admitted. The patient has a mood disorder and Psych has also been consulted. We have been consulted because of congestive heart failure. He has acute on chronic renal failure with a BUN of 84 and creatinine over 2. BNP is elevated. At the time of my evaluation, the patient appears comfortable at rest. Has leg edema, but does not seem to be in respiratory distress. Blood pressure is elevated at 168/93. I will add amlodipine. PAST MEDICAL HISTORY: Significant for coronary artery disease, status post prior angioplasty of right coronary artery, ischemic cardiomyopathy with severe LV dysfunction with an ejection fraction of 25%, hypertension, dyslipidemia, alcohol abuse, and cocaine use. MEDICATIONS: As charted. FAMILY HISTORY: Negative for premature coronary artery disease. SOCIAL HISTORY: Significant for smoking, EtOH abuse, and drug abuse. REVIEW OF SYSTEMS: review of systems has been performed. Pertinents are as documented. PHYSICAL EXAMINATION: VITAL SIGNS: He is afebrile. Heart rate is 80 beats per minute. Blood pressure is 168/90, O2 saturation is 90%. NECK: There is no jugular venous distention. CHEST: Reveals diminished air entry at the bases. HEART: Reveals first and second heart sounds. Systolic murmur at the apex. ABDOMEN: Soft. EXTREMITIES: Reveals bilateral pitting edema. LABORATORY DATA: Lab show that the potassium is 4.8, BUN is 87, creatinine is 1.8. Hemoglobin is 8.2 with a platelet count of 197. BNP is elevated. ASSESSMENT: 1. Acute on chronic systolic heart failure. 2. Ischemic cardiomyopathy with severe LV dysfunction. 3. Severe chronic obstructive pulmonary disease. PLAN: I will treat the patient with intravenous Lasix. Prognosis is guarded. MMODL / IJN: [id number] /
[2024-04-29 07:37] LABS: Glucose,Whole Blood 193 mg/dL (70-110)
--- NOTE | 2024-04-29 12:05 | P.PN ---
Subjective Progress Note Date: 04/29/24 This is a 64-year-old male with past medical history of end-stage lung disease recently hospitalized at [facility] for 22 days and could not go to rehab. He was discharged to his brother's home who then refused to take care of him. Patient presented to [facility] because he was not feeling well, shortness of breath. He does have a history of mood disorder and seen by psychiatry. We are following the patient for congestive heart failure. He also has acute on chronic renal failure. Patient appears to be comfortable at this time. He has been maintained on IV Lasix at 40 mg twice daily. Both shortness of breath and lower extremity edema are improved today. Physical examination: Gen: This is a 64-year-old male in no acute distress VS: reviewed HEENT: Head is atraumatic, normocephalic. Pupils equal, round. Sclerae is anicteric. NECK: Supple. No JVD. LUNGS: Diminished breath sounds bilaterally. No intercostal retractions. HEART: Regular rate and rhythm. Systolic murmur at the apex ABDOMEN: Soft No tenderness. EXTREMITIES: Mild bilateral lower extremity edema. No calf tenderness. NEUROLOGICAL: Patient is awake, alert and oriented x3. Assessment: Acute on chronic systolic heart failure Ischemic cardiomyopathy with severe LV dysfunction, EF 25% Severe COPD Plan: Continue current cardiac medications: Aspirin 81 mg daily, atorvastatin 10 mg at bedtime, Farxiga 5 mg daily, Isordil 10 mg twice daily, magnesium oxide 400 mg daily, he is also on Toprol-XL 25 mg daily, nicotine patch. No need to repeat echocardiogram Transition IV Lasix to oral 40 mg twice daily Further recommendations to follow based upon clinical course Nurse practitioner note has been reviewed, I agree with documented findings and plan of care. Patient was seen and examined. Objective - Vital Signs Vital signs: Vital Signs Temp 98.5 F 04/29/24 07:29 Pulse 82 04/29/24 11:26 Resp 18 04/29/24 07:29 BP 160/90 04/29/24 07:29 Pulse Ox 97 04/29/24 07:29 FiO2 Intake & Output 04/28/24 04/29/24 04/29/24 18:59 06:59 18:59 Intake Total 480 Output Total 750 2850 300 Balance -270 -2850 -300 Weight 76.2 kg Intake: Oral 480 Output: Urine 750 2850 300 Other: Voiding Method Urinal Urinal Urinal # Voids 3 - Labs CBC & Chem 7: 04/28/24 05:24 04/28/24 05:24 Labs: Abnormal Lab Results - Last 24 Hours (Table) 04/28/24 04/28/24 04/28/24 Range/Units 12:16 17:18 20:15 POC Glucose (mg/dL) 178 H 156 H 275 H (70-110) mg/dL 04/29/24 Range/Units 07:35 POC Glucose (mg/dL) 193 H (70-110) mg/dL
--- NOTE | 2024-04-29 12:20 | P.PN ---
Subjective Progress Note Date: 04/29/24 Principal diagnosis: Chronic hypoxic respiratory failure Hypertension hypertensive cardiovascular disease Chronic kidney disease Peripheral severe pruritus of the extremities COPD oxygen dependent prednisone dependent Type 2 diabetes mellitus with hyperglycemia Congestive heart failure Hypertension hypertensive cardiovascular disease Dyslipidemia April 29, 2024, patient seen eval examined during rounds labs reviewed medications reviewed care plan discussed, respiratory status remains stable on 3 L nasal cannula, denies any chest pain generalized aches and pains are present patient being continued on medicine, discussed with school social worker and clinical case manager for discharge and discharge planning 64-year-old male with end-stage lung disease oxygen dependent and prednisone dependent patient stayed at [facility] for 22 days could not be placed in rehab or fdc appears that patient lives with his brother who has refused to take him. Patient was discharged yesterday from [facility] patient directly came to [facility] and has been admitted successfully. Patient complains of generalized weakness, however he requires Dilaudid for pain control , patient has been on BiPAP lately stable on 3 L nasal cannula, is has chronic kidney disease is stage IIIb and congestive heart failure. Patient admitted into [facility] with continuation of home medication and school social worker on consult for placement psych consult for mood disorder and nephrology for chronic kidney disease. Labs are significant for hemoglobin hematocrit 8.4/27 WBC within normal limit chemistry significant for mild hyponatremia and hyperkalemia 135 and 5.3, BUN/creatinine is 84/2 glucose 182 BNP is over 19,000 influenza A and B RSV and COVID have been negative chest x-ray mild interstitial edema and tiny right-sided effusion otherwise unremarkable Objective - Vital Signs Vital signs: Vital Signs Temp 98.5 F 04/29/24 07:29 Pulse 82 04/29/24 11:26 Resp 18 04/29/24 07:29 BP 160/90 04/29/24 07:29 Pulse Ox 97 04/29/24 07:29 FiO2 Intake & Output 04/28/24 04/29/24 04/29/24 18:59 06:59 18:59 Intake Total 480 Output Total 750 2850 300 Balance -270 -2850 -300 Weight 76.2 kg Intake: Oral 480 Output: Urine 750 2850 300 Other: Voiding Method Urinal Urinal Urinal # Voids 3 - Exam - Constitutional General appearance: average body habitus, cooperative, disheveled - EENT Eyes: EOMI, PERRLA ENT: normal oropharynx Ears: bilateral: normal - Neck Carotids: bilateral: upstroke normal - Respiratory Respiratory: bilateral: CTA - Cardiovascular Rhythm: regular Heart sounds: normal: S1, S2 - Gastrointestinal General gastrointestinal: hyperactive bowel sounds, soft - Neurologic Neurologic: CNII-XII intact - Musculoskeletal Musculoskeletal: gait normal, generalized weakness, strength equal bilaterally - Psychiatric Psychiatric: A&O x's 3, appropriate affect, intact judgment & insight - Labs CBC & Chem 7: 04/28/24 05:24 04/28/24 05:24 Labs: Abnormal Lab Results - Last 24 Hours (Table) 04/28/24 04/28/24 04/28/24 Range/Units 12:16 17:18 20:15 POC Glucose (mg/dL) 178 H 156 H 275 H (70-110) mg/dL 04/29/24 Range/Units 07:35 POC Glucose (mg/dL) 193 H (70-110) mg/dL Assessment and Plan Assessment: Chronic hypoxic respiratory failure Hypertension hypertensive cardiovascular disease Chronic kidney disease Peripheral severe pruritus of the extremities COPD oxygen dependent prednisone dependent Type 2 diabetes mellitus with hyperglycemia Congestive heart failure Hypertension hypertensive cardiovascular disease Dyslipidemia Plan: Continue oxygen 3 L nasal cannula Continue maintenance dose of prednisone 10 mg daily along with bronchodilators DuoNeb and Pulmicort Pain management with [place] as needed and Dilaudid for breakthrough pain Nephrology consultation for chronic kidney disease, monitor and trend renal functions and urine output continue bicarb Psychiatry consultation for mood disorder depression Continue statin for dyslipidemia Continue short and long-acting insulin and 88 1600 nargis diet Gentle diuresis with furosemide along nitrates and with antihypertensive agents continue IV Lasix however subsequently next 24 to 48 hours will change to oral DVT prophylaxis subcu heparin Melatonin for insomnia Likely discharge in next 24 hours and to extended-care facility Time with Patient: Greater than 30
[2024-04-29 12:41] LABS: Glucose,Whole Blood 79 mg/dL (70-110)
--- NOTE | 2024-04-29 12:47 | P.PN ---
Subjective patient is seen for follow-up for acute kidney injury and chronic kidney disease. Maintained on diuretics, switched to oral. Working with physical therapy. No significant complaints of shortness of breath. Objective - Vital Signs Vital signs: Vital Signs Temp 98.5 F 04/29/24 07:29 Pulse 82 04/29/24 11:26 Resp 18 04/29/24 07:29 BP 160/90 04/29/24 07:29 Pulse Ox 97 04/29/24 07:29 FiO2 Intake & Output 04/28/24 04/29/24 04/29/24 18:59 06:59 18:59 Intake Total 480 Output Total 750 2850 300 Balance -270 -2850 -300 Weight 76.2 kg Intake: Oral 480 Output: Urine 750 2850 300 Other: Voiding Method Urinal Urinal Urinal # Voids 3 - Exam patient is awake, comfortable, no acute distress. Alert oriented 3 Examination of the heart S1 and S2 Examination of the lungs bilateral breath sounds are heard Abdomen is soft nontender Examination of lower extremity shows chronic skin changes, edema 1+ bilaterally, multiple wounds on both legs [employer] exam grossly intact - Labs CBC & Chem 7: 04/28/24 05:24 04/28/24 05:24 Labs: Abnormal Lab Results - Last 24 Hours (Table) 04/28/24 04/28/24 04/29/24 Range/Units 17:18 20:15 07:35 POC Glucose (mg/dL) 156 H 275 H 193 H (70-110) mg/dL Assessment and Plan Assessment: 1. Chronic kidney disease NKF stage IIIB with baseline creatinine around 1.6- 1.8 mg/dL secondary to diabetic kidney disease 2. Acute kidney injury, ATN/cardiorenal syndrome during recent hospitalization at [facility]. Serum creatinine was 2.2-2.0 over the last few days. 3. Tendency towards hyperkalemia, controlled with loop diuretics and low potassium diet. 4. Metabolic acidosis secondary to chronic kidney disease maintained on oral sodium bicarb 5. Hypertension with CK D stage III B 6. Type 2 diabetes maintained on insulin Plan: continue with current dose of diuretics. Lasix changed to oral today Continue with Farxiga. Maintain low potassium diet Continue oral sodium bicarb Repeat labs in a.m. Social work/ case management to evaluate discharge planning.
[2024-04-29] MEDS: FUROSEMIDE 40 MG TAB PO SCH (17:05)
[2024-04-29 17:21] LABS: Glucose,Whole Blood 175 mg/dL (70-110)
[2024-04-29] MEDS: INSULIN ASPART (NovoLOG) 100 UNIT/ML VIAL SQ SCH (17:57)
[2024-04-29 21:28] LABS: Glucose,Whole Blood 244 mg/dL (70-110)
[2024-04-30] MEDS: MELATONIN 3 MG TABLET PO PRN (01:40)
[2024-04-30 07:20] LABS: Glucose,Whole Blood 171 mg/dL (70-110)
[2024-04-30 07:50] VITALS: BP 155/78; RESP 16; TEMP 98.1
[2024-04-30 11:12] VITALS: PULSE 96
--- NOTE | 2024-04-30 11:30 | P.DS ---
Providers Date of admission: 04/27/24 20:56 Expected date of discharge: 04/30/24 Attending physician: Marco A Marcus Consults: 04/27/24 20:52 Consult Physician Routine Consulting Provider: Huy Martin Consult Reason/Comments: history of psych disease. requested by Dr. Marcus (admitting team) Do you want consulting provider notified?: Yes Consult Physician Routine Consulting Provider: Matthew Soni Consult Reason/Comments: chf Do you want consulting provider notified?: Yes 04/28/24 07:43 Consult Physician Routine Consulting Provider: Bradley Lopez Consult Reason/Comments: elevated creatinine Do you want consulting provider notified?: Yes Primary care physician: [facility] Course: April 30, 2024, patient seen eval examined during rounds labs reviewed medica tions reviewed care plan discussed, sugar relatively more stable, in low 100 range to mid 100 range, patient has been getting pain medicine however being switched to [facility]Patient got a place at one of the [facility] being discharged later on today April 29, 2024, patient seen eval examined during rounds labs reviewed medications reviewed care plan discussed, respiratory status remains stable on 3 L nasal cannula, denies any chest pain generalized aches and pains are present patient being continued on medicine, discussed with social secretary and director case management for discharge and discharge planning 64-year-old male with end-stage lung disease oxygen dependent and prednisone dependent patient stayed at [facility] for 22 days could not be placed in rehab or [place] [facility] appears that patient lives with his brother who has refused to take him. Patient was discharged yesterday from [facility] patient directly came to [facility] and has been admitted successfully. Patient complains of generalized weakness, however he requires Dilaudid for pain control, patient has been on BiPAP lately stable on 3 L nasal cannula, is has chronic kidney disease is stage IIIb and congestive heart failure. Patient admitted into [facility] with continuation of home medication and social secretary on consult for placement psych consult for mood disorder and nephrology for chronic kidney disease. Labs are significant for hemoglobin hematocrit 8.4/27 WBC within normal limit chemistry significant for mild hyponatremia and hyperkalemia 135 and 5.3, BUN/creatinine is 84/2 glucose 182 BNP is over 19,000 influenza A and B RSV and COVID have been negative chest x-ray mild interstitial edema and tiny right-sided effusion otherwise unremarkable Assessment: Chronic hypoxic respiratory failure Hypertension hypertensive cardiovascular disease Chronic kidney disease Peripheral severe pruritus of the extremities COPD oxygen dependent prednisone dependent Type 2 diabetes mellitus with hyperglycemia Congestive heart failure Hypertension hypertensive cardiovascular disease Dyslipidemia Patient Condition at Discharge: Stable Plan - Discharge Summary Discharge Rx Participant: Yes New Discharge Prescriptions: No Action Metoprolol Succinate (ER) [Toprol XL] 25 mg PO DAILY 90 Days #90 tab Ipratropium-Albuterol Nebulize [Duoneb 0.5 mg-3 mg/3 ml Soln] 3 ml INHALATION RT-QID 30 Days #120 each Aspirin 81 mg PO DAILY tab Simvastatin [Zocor] 20 mg PO HS Folic Acid 1 mg PO DAILY Empagliflozin [Jardiance] 10 mg PO DAILY Gabapentin [Neurontin] 300 mg PO TID Silver Sulfadiazine [Silver Sulfadiazine 1%] 1 applic TOPICAL BID predniSONE 10 mg PO DAILY Nicotine 21Mg/24Hr Patch [Habitrol] 1 patch TRANSDERM DAILY Ainbkpff-Yjurfpzlle-Mzgv Oint [Triple Antibiotic Ointment] 1 gm TOPICAL BID Magnesium Oxide [Mag-Ox] 400 mg PO DAILY Lactulose 10 gm PO TID Isosorbide Dinitrate [Isordil] 10 mg PO BID Insulin Lispro See Protocol SQ TID-W/MEALS Insulin Glargine [Lantus Vial] 12 unit SQ DAILY guaiFENesin [guaiFENesin ER] 1,200 mg PO Q12H Lactobacillus Rhamnosus GG [Culturelle] 1 cap PO BID Budesonide [Pulmicort] 0.5 mg INHALATION RT-BID@0700,1900 Furosemide [Lasix] 40 mg PO DAILY methocarbamoL [Robaxin] 250 mg PO QID Sodium Bicarbonate Tab 650 mg PO BID Pantoprazole [Protonix] 40 mg PO AC-BID Melatonin 3 mg PO HS PRN PRN Reason: SLEEP Insulin Lispro 5 units SQ TID-W/MEALS Docusate [Colace] 200 mg PO BID PRN PRN Reason: Constipation Calcium Carbonate/Vitamin D3 [Calcium 500 mg-Vit D3 5 mcg (200 Unit)] 1 tab PO DAILY Discharge Medication List Metoprolol Succinate (ER) [Toprol XL] 25 mg PO DAILY 90 Days #90 tab 04/22/23 [Rx] Ipratropium-Albuterol Nebulize [Duoneb 0.5 mg-3 mg/3 ml Soln] 3 ml INHALATION RT-QID 30 Days #120 each 11/11/23 [Rx] Furosemide [Lasix] 40 mg PO DAILY 12/26/23 [History] Aspirin 81 mg PO DAILY tab 12/31/23 [Rx] Budesonide [Pulmicort] 0.5 mg INHALATION RT-BID@0700,1900 04/27/24 [History] Calcium Carbonate/Vitamin D3 [Calcium 500 mg-Vit D3 5 mcg (200 Unit)] 1 tab PO DAILY 04/27/24 [History] Docusate [Colace] 200 mg PO BID PRN 04/27/24 [History] Empagliflozin [Jardiance] 10 mg PO DAILY 04/27/24 [History] Folic Acid 1 mg PO DAILY 04/27/24 [History] Gabapentin [Neurontin] 300 mg PO TID 04/27/24 [History] Insulin Glargine [Lantus Vial] 12 unit SQ DAILY 04/27/24 [History] Insulin Lispro 5 units SQ TID-W/MEALS 04/27/24 [History] Insulin Lispro See Protocol SQ TID-W/MEALS 04/27/24 [History] Isosorbide Dinitrate [Isordil] 10 mg PO BID 04/27/24 [History] Lactobacillus Rhamnosus GG [Culturelle] 1 cap PO BID 04/27/24 [History] Lactulose 10 gm PO TID 04/27/24 [History] Magnesium Oxide [Mag-Ox] 400 mg PO DAILY 04/27/24 [History] Melatonin 3 mg PO HS PRN 04/27/24 [History] Fpsdzfsh-Mnbcdqeknp-Divu Oint [Triple Antibiotic Ointment] 1 gm TOPICAL BID 04/27/24 [History] Nicotine 21Mg/24Hr Patch [Habitrol] 1 patch TRANSDERM DAILY 04/27/24 [History] Pantoprazole [Protonix] 40 mg PO AC-BID 04/27/24 [History] Silver Sulfadiazine [Silver Sulfadiazine 1%] 1 applic TOPICAL BID 04/27/24 [History] Simvastatin [Zocor] 20 mg PO HS 04/27/24 [History] Sodium Bicarbonate Tab 650 mg PO BID 04/27/24 [History] guaiFENesin [guaiFENesin ER] 1,200 mg PO Q12H 04/27/24 [History] methocarbamoL [Robaxin] 250 mg PO QID 04/27/24 [History] predniSONE 10 mg PO DAILY 04/27/24 [History] Follow up Appointment(s)/Referral(s): Eric Loyola MD [Primary Care Provider] - 1-2 days Discharge/Stand Alone Forms: AA Meetings Dist & 24 - [facility], AA Meetings [facility], [facility] Shelters, [facility] Pamphlet, Who Do I Call?, Assisted Living Facilities, Community Resources, Inp Substance Abuse Facilities
[2024-04-30 12:13] LABS: Glucose,Whole Blood 141 mg/dL (70-110)
--- NOTE | 2024-04-30 12:50 | P.PN ---
Subjective Progress Note Date: 04/30/24 This is a 64-year-old male with past medical history of end-stage lung disease recently hospitalized at [facility] for 22 days and could not go to rehab. He was discharged to his brother's home who then refused to take care of him. Patient presented to [facility] because he was not feeling well, shortness of breath. He does have a history of mood disorder and seen by psychiatry. We are following the patient for congestive heart failure. He also has acute on chronic renal failure. Patient appears to be comfortable at this time. He has been maintained on IV Lasix at 40 mg twice daily. Both shortness of breath and lower extremity edema are improved today. 04/30 Patient is seen and examined. Blood pressure 155/78, heart rate 78, pulse ox 94% on room air. Patient has a negative fluid balance and documented weight loss. Patient is waiting for [facility] to [facility] [place]. Physical examination: Gen: This is a 64-year-old male in no acute distress VS: reviewed HEENT: Head is atraumatic, normocephalic. Pupils equal, round. Sclerae is anicteric. NECK: Supple. No JVD. LUNGS: Diminished breath sounds bilaterally. No intercostal retractions. HEART: Regular rate and rhythm. Systolic murmur at the apex ABDOMEN: Soft No tenderness. EXTREMITIES: Mild bilateral lower extremity edema. No calf tenderness. NEUROLOGICAL: Patient is awake, alert and oriented x3. Assessment: Acute on chronic systolic heart failure Ischemic cardiomyopathy with severe LV dysfunction, EF 25% Severe COPD Plan: Continue current cardiac medications: Aspirin 81 mg daily, atorvastatin 10 mg at bedtime, Farxiga 5 mg daily, Isordil 10 mg twice daily, magnesium oxide 400 mg d aily, Toprol-XL 25 mg daily, nicotine patch. No need to repeat echocardiogram Continue Lasix oral 40 mg twice daily Patient is cleared for discharge from cardiology perspective. Nurse practitioner note has been reviewed, I agree with documented findings and plan of care. Patient was seen and examined. Objective - Vital Signs Vital signs: Vital Signs Temp 98.1 F 04/30/24 07:20 Pulse 78 04/30/24 07:20 Resp 16 04/30/24 07:20 BP 155/78 04/30/24 07:20 Pulse Ox 94 L 04/30/24 07:20 FiO2 Intake & Output 10/31/24 11/01/24 11/01/24 18:59 06:59 18:59 Intake Total 540 Output Total 3350 750 200 Balance -3350 -210 -200 Weight 72.603 kg Intake: Oral 540 Output: Urine 3350 750 200 Other: Voiding Method Urinal Urinal Urinal # Voids 2 - Labs CBC & Chem 7: 04/28/24 05:24 04/28/24 05:24 Labs: Abnormal Lab Results - Last 24 Hours (Table) 04/29/24 04/29/24 04/30/24 Range/Units 17:20 21:27 07:18 POC Glucose (mg/dL) 175 H 244 H 171 H (70-110) mg/dL
[2024-04-30 13:11] LABS: African American GFR (CKD) 47 (>60 ml/min/1.73 sqM); Anion Gap 1 mmol/L; Blood Urea Nitrogen 61 mg/dL (9-20); Calcium 8.6 mg/dL (8.4-10.2); Carbon Dioxide 31 mmol/L (22-30); Chloride 102 mmol/L (98-107); Glucose 122 mg/dL (74-99); Non-African American GFR(CKD) 40 (>60 ml/min/1.73 sqM); Potassium 4.7 mmol/L (3.5-5.1); Sodium 134 mmol/L (137-145)
--- NOTE | 2024-04-30 16:14 | P.PN ---
Subjective patient is seen for follow-up for acute kidney injury and chronic kidney disease. Maintained on diuretics, switched to oral. Working with physical therapy. No significant complaints of shortness of breath. Objective - Vital Signs Vital signs: Vital Signs Temp 98.1 F 04/30/24 07:20 Pulse 96 04/30/24 11:20 Resp 16 04/30/24 07:20 BP 155/78 04/30/24 07:20 Pulse Ox 94 L 04/30/24 07:20 FiO2 Intake & Output 04/29/24 04/30/24 04/30/24 18:59 06:59 18:59 Intake Total 540 Output Total 3350 750 200 Balance -3350 -210 -200 Weight 72.603 kg Intake: Oral 540 Output: Urine 3350 750 200 Other: Voiding Method Urinal Urinal Urinal # Voids 2 - Exam patient is awake, comfortable, no acute distress. Alert oriented 3 Examination of the heart S1 and S2 Examination of the lungs bilateral breath sounds are heard Abdomen is soft nontender Examination of lower extremity shows chronic skin changes, edema 1+ bilaterally, multiple wounds on both legs [employer] exam grossly intact - Labs CBC & Chem 7: 04/28/24 05:24 04/30/24 12:03 Labs: Abnormal Lab Results - Last 24 Hours (Table) 04/29/24 04/29/24 04/30/24 Range/Units 17:20 21:27 07:18 Sodium (137-145) mmol/L Carbon Dioxide (22-30) mmol/L BUN (9-20) mg/dL Creatinine (0.66-1.25) mg/dL Glucose (74-99) mg/dL POC Glucose (mg/dL) 175 H 244 H 171 H (70-110) mg/dL 04/30/24 04/30/24 Range/Units 12:03 12:07 Sodium 134 L (137-145) mmol/L Carbon Dioxide 31 H (22-30) mmol/L BUN 61 H (9-20) mg/dL Creatinine 1.74 H (0.66-1.25) mg/dL Glucose 122 H (74-99) mg/dL POC Glucose (mg/dL) 141 H (70-110) mg/dL Assessment and Plan Assessment: 1. Chronic kidney disease NKF stage IIIB with baseline creatinine around 1.6- 1.8 mg/dL secondary to diabetic kidney disease 2. Acute kidney injury, ATN/cardiorenal syndrome during recent hospitalization at [facility]. Serum creatinine was 2.2-2.0 over the last few days. 3. Tendency towards hyperkalemia, controlled with loop diuretics and low potassium diet. 4. Metabolic acidosis secondary to chronic kidney disease maintained on oral sodium bicarb 5. Hypertension with CK D stage III B 6. Type 2 diabetes maintained on insulin Plan: continue with current dose of diuretics. Lasix changed to oral Continue with Farxiga. Maintain low potassium diet Continue oral sodium bicarb Okay to discharge from nephrology standpoint
== END 2024-04-30 13:12 | DRG 882 ==
LOC: EC 17:29 → 5NMEDONC 20:56
PROVIDERS: ADMIT Internal Medicine Sleep Medicine; ATTEND Internal Medicine Sleep Medicine
DX: F42.9 Obsessive-compulsive disorder, unspecified (principal); I50.23 Acute on chronic systolic (congestive) heart failure; N17.9 Acute kidney failure, unspecified; I13.0 Hypertensive heart and chronic kidney disease with heart failure and stage 1 through stage 4 chronic kidney disease, or unspecified chronic kidney disease; E87.20 Acidosis, unspecified; I69.354 Hemiplegia and hemiparesis following cerebral infarction affecting left non-dominant side; J96.11 Chronic respiratory failure with hypoxia; F41.9 Anxiety disorder, unspecified; F31.9 Bipolar disorder, unspecified; N18.9 Chronic kidney disease, unspecified; E11.22 Type 2 diabetes mellitus with diabetic chronic kidney disease; E87.5 Hyperkalemia; E11.42 Type 2 diabetes mellitus with diabetic polyneuropathy; E11.65 Type 2 diabetes mellitus with hyperglycemia; E78.5 Hyperlipidemia, unspecified; F10.11 Alcohol abuse, in remission; G47.00 Insomnia, unspecified; G89.29 Other chronic pain; I25.10 Atherosclerotic heart disease of native coronary artery without angina pectoris; I25.2 Old myocardial infarction; I25.5 Ischemic cardiomyopathy; J44.9 Chronic obstructive pulmonary disease, unspecified; J98.4 Other disorders of lung; R45.850 Homicidal ideations; Z79.4 Long term (current) use of insulin; Z79.51 Long term (current) use of inhaled steroids; Z79.52 Long term (current) use of systemic steroids; Z79.82 Long term (current) use of aspirin; Z79.84 Long term (current) use of oral hypoglycemic drugs; Z82.49 Family history of ischemic heart disease and other diseases of the circulatory system; Z79.899 Other long term (current) drug therapy; R01.1 Cardiac murmur, unspecified; Z99.81 Dependence on supplemental oxygen; L29.9 Pruritus, unspecified; Z88.0 Allergy status to penicillin; Z88.8 Allergy status to other drugs, medicaments and biological substances; Z86.14 Personal history of Methicillin resistant Staphylococcus aureus infection; Z90.49 Acquired absence of other specified parts of digestive tract
CPT/HCPCS: 36415; 71046; 80048; 80053; 83036; 83735; 83880; 85025; 85610; 85730; 87636; 93005; 94640; 94760; 96374; 96375; 99291